=== PATIENT | female | born 1945 | race Caucasian/White ===

== ENCOUNTER 2017-04-05 10:15 | Inpatient (IN) | payer MEDICARE, OTHER ==
[~2017-04-05] VITALS: Ht 165.1 cm; Wt 98.9 kg
[2017-04-05 10:47] LABS: BASOPHILS % (AUTO) 0 % (0-10); EOSINOPHILS # (AUTO) 0.2 10^3/uL (0.0-0.3); EOSINOPHILS % (AUTO) 3 % (0-10); LYMPHOCYTES # (AUTO) 1.2 X 10^3 (1.0-4.0); LYMPHOCYTES % (AUTO) 26 % (12-44); MEAN CORPUSCULAR HEMOGLOBIN 28 PG (25-34); MEAN CORPUSCULAR HGB CONC 33 G/DL (32-36); MEAN CORPUSCULAR VOLUME 87 FL (80-99); MEAN PLATELET VOLUME 10.3 FL (7.4-10.4); MONOCYTES # (AUTO) 0.5 X 10^3 (0.0-1.0); MONOCYTES % (AUTO) 10 % (0-12); NEUTROPHILS # (AUTO) 2.7 X 10^3 (1.8-7.8); NEUTROPHILS % (AUTO) 60 % (42-75); PLATELET COUNT 244 10^3/uL (130-400); RED BLOOD COUNT 4.16 10^6/uL (4.35-5.85); RED CELL DISTRIBUTION WIDTH 14.3 % (10.0-14.5); WHITE BLOOD COUNT 4.5 10^3/uL (4.3-11.0)
[2017-04-05] MEDS ORDERED: ASPIRIN 81 MG CHEW (CHILDREN'S ASA) ONE (10:53)
[2017-04-05 11:00] LABS: ALANINE AMINOTRANSFERASE 14 U/L (0-55); ALBUMIN 4.3 GM/DL (3.2-4.5); ANION GAP 11 MMOL/L (5-14); ASPARTATE AMINO TRANSFERASE 12 U/L (5-34); BILIRUBIN,TOTAL 0.9 MG/DL (0.1-1.0); BLOOD UREA NITROGEN 15 MG/DL (7-18); BUN/CREATININE RATIO 15; CALCIUM 9.9 MG/DL (8.5-10.1); CARBON DIOXIDE 26 MMOL/L (21-32); CHLORIDE 98 MMOL/L (98-107); CREATININE SERUM 1.02 MG/DL (0.60-1.30); GFR ESTIMATED 53; GLUCOSE 240 MG/DL (70-105); MAGNESIUM 1.7 MG/DL (1.8-2.4); POTASSIUM 3.7 MMOL/L (3.6-5.0); SODIUM 135 MMOL/L (135-145); TOTAL PROTEIN 7.3 GM/DL (6.4-8.2)
[2017-04-05 11:01] LABS: PROTHROMBIN TIME PATIENT 12.8 SEC (12.2-14.7)
[2017-04-05 11:08] LABS: MYOGLOBIN SERUM 56.8 NG/ML (10.0-92.0)
--- NOTE | 2017-04-05 11:14 | ED Chest Pain ---
General Chief Complaint: Chest Pain Stated Complaint: HIGH BP/PULSE RACING/CP History of Present Illness Time seen by provider: 11:00 Initial Comments Patient reports chest pressure, generalized right and left substernal, pain started at 0 900 today. She was sitting at her breakfast table eating with her . She denies any exertional chest pain. She does report increased stress recently, her is a paraplegic and has had 3-4 CVAs in the last year. 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 She reports numbness in her left arm no pain radiating into the left arm or neck. She denies nausea vomiting or diaphoresis at the time of the pain. She denies a previous history of chest problems and has never seen a surgical coder. She has a history of hypertension and hyperlipidemia. She does report that her last visit with her primary care provider in November, that all labs were in normal ranges. She is a type II diabetic taking metformin ER. Patient denies any chest pain at the present time, she denies any paresthesias or tingling in the left or right upper extremity. Discussed stress and anxiety, the patient declines anything for that at the present time. Timing/Duration: 1-3 hours Severity/Quality: mild Location: substernal Radiation: no radiation Activities at Onset: other (eating breakfast) Prior CP/Workup: no prior chest pain, no prior cardiac workup Modifying Factors: improves with lying down, improves with rest ASA po PURSE SEINING HAND: No NTG SL PURSE SEINING HAND: No Associated Symptoms: denies symptoms Allergies and Home Medications Allergies Coded Allergies: No Known Drug Allergies (Unverified , 09/28/14) Home Medications Amlodipine Besylate 5 Mg Tablet, 5 MG PO HS, (Reported) Cyanocobalamin 1,000 Mcg/Ml Inj, 1,000 MCG IJ MONTHLY, (Reported) Exenatide 10 Mcg/0.04 Ml Pen.injctr, 10 MCG INJ BID, (Reported) Fenofibrate Nanocrystallized 145 Mg Tablet, 145 MG PO HS, (Reported) Furosemide 20 Mg Tablet, 20 MG PO DAILY PRN for SWELLING, (Reported) Glipizide 10 Mg Tablet, 10 MG PO BID, (Reported) Guanfacine HCl 1 Mg Tablet, 1 MG PO DAILY, (Reported) Levothyroxine Sodium 50 Mcg Tablet, 50 MCG PO DAILY, (Reported) Metformin HCl 500 Mg Tab.er.24h, 1,000 MG PO BID, (Reported) TAKES 2 (500MG) TABLETS Metoprolol Tartrate 100 Mg Tablet, 100 MG PO DAILY, (Reported) Multivitamin 1 Each Tablet, 1 TAB PO DAILY, (Reported) Potassium Chloride 20 Meq Tab.er.prt, 20 MEQ PO DAILY PRN for WHEN TAKING FUROSEMIDE, (Reported) Simvastatin 20 Mg Tablet, 20 MG PO HS, (Reported) Spironolactone 25 Mg Tablet, 25 MG PO BID, (Reported) Review of Systems Constitutional: no symptoms reported, see HPI Respiratory: No Symptoms Reported, See HPI Cardiovascular: See HPI, Chest Pain, Lightheadedness Gastrointestinal: No Symptoms Reported Psychiatric/Neurological: See HPI, Anxiety All Other Systems Reviewed Negative Unless Noted: Yes Past Auxxqfz-Pchtcx-Icpwfw Hx Immunizations Up To Date Date of Pneumonia Vaccine: Jul 30, 2013 Date of Influenza Vaccine: Mar 31, 2014 Reviewed Nursing Assessment Reviewed/Agree w Nursing PMH: Yes Physical Exam Vital Signs Vital Sign - Last 12Hours 04/05/17 10:17 Temp 97.9 Pulse 112 Resp 15 B/P (MAP) 152/90 Pulse Ox 99 Capillary Refill : General Appearance: No Apparent Distress, WD/WN HEENT: PERRL/EOMI, TMs Normal, Normal ENT Inspection Neck: Full Range of Motion, Normal Inspection, Non Tender, Supple, No Carotid Bruit Respiratory: Chest Non Tender, Lungs Clear, Normal Breath Sounds Cardiovascular: No Murmur, Tachycardia (pulse 70s to 120, with episodes of atrial fibrillation and atrial flutter, terminating with normal sinus rhythm) Gastrointestinal: Normal Bowel Sounds, No Organomegaly, No Pulsatile Mass, Non Tender, Soft Extremity: Normal Capillary Refill, Normal Inspection, Normal Range of Motion, Non Tender, No Calf Tenderness, Pedal Edema (1+) Neurologic/Psychiatric: Alert, Oriented x3, No Motor/Sensory Deficits, Normal Mood/Affect Skin: Normal Color, Warm/Dry Lymphatic: No Adenopathy Progress/Results/Core Measures Results/Orders Lab Results Laboratory Tests Test 04/05/17 10:20 Range/Units White Blood Count 4.5 4.3-11.0 10^3/uL Red Blood Count 4.16 L 4.35-5.85 10^6/uL Hemoglobin 11.8 11.5-16.0 G/DL Hematocrit 36 35-52 % Mean Corpuscular Volume 87 80-99 FL Mean Corpuscular Hemoglobin 28 25-34 PG Mean Corpuscular Hemoglobin Concent 33 32-36 G/DL Red Cell Distribution Width 14.3 10.0-14.5 % Platelet Count 244 130-400 10^3/uL Mean Platelet Volume 10.3 7.4-10.4 FL Neutrophils (%) (Auto) 60 42-75 % Lymphocytes (%) (Auto) 26 12-44 % Monocytes (%) (Auto) 10 0-12 % Eosinophils (%) (Auto) 3 0-10 % Basophils (%) (Auto) 0 0-10 % Neutrophils # (Auto) 2.7 1.8-7.8 X 10^3 Lymphocytes # (Auto) 1.2 1.0-4.0 X 10^3 Monocytes # (Auto) 0.5 0.0-1.0 X 10^3 Eosinophils # (Auto) 0.2 0.0-0.3 10^3/uL Basophils # (Auto) 0.0 0.0-0.1 10^3/uL Prothrombin Time 12.8 12.2-14.7 SEC INR Comment 1.0 0.8-1.4 Activated Partial Thromboplast Time 32 24-35 SEC Sodium Level 135 135-145 MMOL/L Potassium Level 3.7 3.6-5.0 MMOL/L Chloride Level 98 98-107 MMOL/L Carbon Dioxide Level 26 21-32 MMOL/L Anion Gap 11 5-14 MMOL/L Blood Urea Nitrogen 15 7-18 MG/DL Creatinine 1.02 0.60-1.30 MG/DL Estimat Glomerular Filtration Rate 53 BUN/Creatinine Ratio 15 Glucose Level 240 H 70-105 MG/DL Calcium Level 9.9 8.5-10.1 MG/DL Magnesium Level 1.7 L 1.8-2.4 MG/DL Total Bilirubin 0.9 0.1-1.0 MG/DL Aspartate Amino Transf (AST/SGOT) 12 5-34 U/L Alanine Aminotransferase (ALT/SGPT) 14 0-55 U/L Alkaline Phosphatase 36 L 40-136 U/L Myoglobin 56.8 10.0-92.0 NG/ML Troponin I < 0.30 <0.30 NG/ML Total Protein 7.3 6.4-8.2 GM/DL Albumin 4.3 3.2-4.5 GM/DL Thyroid Stimulating Hormone (TSH) 2.66 0.35-4.94 UIU/ML Free Thyroxine 1.10 0.70-1.48 NG/DL My Orders Orders - AGUILA GREY Aspirin Chewable Tablet (Baby Aspirin Ch (04/05/17 10:53) Thyroid Stimulating Hormone (04/05/17 11:17) Free T4 (Free Thyroxine) (04/05/17 11:17) Medications Given in ED Current Medications Medications Dose Ordered Sig/Carlos Route Start Time Stop Time Status Last Admin Dose Admin Aspirin 81 mg STK-MED ONCE .ROUTE 04/05/17 10:53 04/05/17 11:00 DC 04/05/17 11:00 81 MG Vital Signs/I&O Vital Sign - Last 12Hours 04/05/17 10:17 Temp 97.9 Pulse 112 Resp 15 B/P (MAP) 152/90 Pulse Ox 99 Progress Note : Time: 11:00 Progress Note 1100 initial evaluation completed, cardiac workup started. At the present time the patient denies any chest pain. EKG shows new onset atrial fibrillation. Discussed results with the patient will obtain more labs and reevaluate. Patient 's initial evaluation reviewed with Dr. Yates, concurred with plan of care [address] Garcia, agreed with admission orders. To consult Dr. Andrews for cardiology. [address] Andrews, will provide consult upon her admission to ICU stepdown. Order received for Lovenox 1 mg/kg. 1150 patient ambulated to bathroom, did not require assistance but had immediate onset of headache. Resolved when she returned to bed. Will obtain CT head. Dr. Andrews here to see patient, patient denies headache at this time he encouraged going ahead and starting the Lovenox Lovenox 100 mg subcutaneous. 1230 patient denies any complaints at this time, no chest pain or headache. Admission orders in place. ECG Initial ECG Impression Date: Apr 05, 2017 Initial ECG Impression Time: 10:17 Initial ECG Rate: 101 Initial ECG Rhythm: A Fib/Flutter Initial ECG Intervals: Normal Initial ECG Intervals QRST 94, QT 336, QTC 436, axis QRS 4, T 125. Initial ECG Impression: Atrial Fibrillation Initial ECG Comparisson: No Previous ECG Available Comment Reviewed with Dr. Yates, concurred with interpretation. Diagnostic Imaging Diagonstic Imaging: Xray Plain Films/CT/US/NM/MRI: chest Comments NAME: LUCY HUFF I [facility] REC#: [id number] PT STATUS: REG ER : 1945 PHYSICIAN: WILFRID YATES MD ADMIT DATE: 04/05/17/ER Draft Date of Exam:04/05/17 CHEST 1 VIEW, AP/PA ONLY Clinical indication: Patient with elevated pulse and blood pressure with right-sided chest pain that started earlier today. Exam: Portable chest x-ray upright view. Comparisons: None. Findings: Lungs/pleura: Lungs are clear. There is no pneumothorax. There is no pleural effusion. Mediastinum: Unremarkable. Pulmonary vasculature: Unremarkable. Heart: There is mild cardiomegaly Bones/extrathoracic soft tissue: Unremarkable. Impression: 1: Mild cardiomegaly with no significant pulmonary vascular congestion. 2: Otherwise, there is no radiographic evidence of acute cardiopulmonary process. no radiographic evidence of acute cardiopulmonary process. Dictated on workstation # [id number] Dict: 04/05/17 1118 Trans: 04/05/17 1121 URBAN [id number] Interpreted by: VASYL CABRERA MD Electronically signed by: Reviewed: Reviewed by Me Diagonstic Imaging: Xray Plain Films/CT/US/NM/MRI: head Comments NAME: LUCY HUFF I [facility] REC#: [id number] PT STATUS: ADM Duc : 1945 PHYSICIAN: AGUILA GREY ADMIT DATE: 04/05/17/ICU Draft Date of Exam:04/05/17 CT HEAD WO INDICATION: Headache and chest pain with hypertension. Noncontrast brain CT is performed. There are no extra-axial fluid collections. No intracranial hemorrhage. No intracranial mass or mass effect. No midline shift. The ventricles are normal in size and position. There are no focal parenchymal abnormalities in the brain. Calvarial windows are unremarkable. IMPRESSION: No acute intracranial abnormality. Dictated on workstation # [id number] Dict: 04/05/17 1241 Trans: 04/05/17 1258 JEYSON [id number] Interpreted by: ROVERTO CURIEL MD Electronically signed by: Reviewed: Reviewed by Me Departure Impression Impression: Primary Impression: New onset atrial fibrillation Additional Impression: Chest pain Qualified Codes: R07.2 - Precordial pain Disposition: ADMITTED INPATIENT Condition: Stable Admissions Decision to Admit Reason: Admit from ER (General) Decision to Admit/Date: Apr 05, 2017 Time/Decision to Admit Time: 11:40 Departure-Patient Inst. Referrals: SANDY GARCIA MD (PCP/Family) Primary Care Physician Copy Copies To 1: SANDY GARCIA MD Copies To 2: MILADIS ANDREWS MD, AMY ARNP Apr 05, 2017 11:14
--- NOTE | 2017-04-05 11:21 | Diagnostic Imaging Report ---
Clinical indication: Patient with elevated pulse and blood pressure with right-sided chest pain that started earlier today. Exam: Portable chest x-ray upright view. Comparisons: None. Findings: Lungs/pleura: Lungs are clear. There is no pneumothorax. There is no pleural effusion. Mediastinum: Unremarkable. Pulmonary vasculature: Unremarkable. Heart: There is mild cardiomegaly Bones/extrathoracic soft tissue: Unremarkable. Impression: 1: Mild cardiomegaly with no significant pulmonary vascular congestion. 2: Otherwise, there is no radiographic evidence of acute cardiopulmonary process. no radiographic evidence of acute cardiopulmonary process. Dictated by: Dictated on workstation # [id number]
[2017-04-05 11:58] LABS: THYROID STIMULATING HORMONE 2.66 UIU/ML (0.35-4.94)
[2017-04-05] MEDS ORDERED: ENOXAPARIN 100 MG/1 ML (LOVENOX) SYR SC NR (12:13)
--- NOTE | 2017-04-05 12:22 | Consultation-Cardiology ---
HPI-Cardiology Cardiology Consultation Date of Consultation 04/05/17 Date of Admission Time Seen by Provider: 12:17 Indication: chest pain HPI 71 years old lady with history of hypertension, hyperlipidemia and diabetes mellitus. Was in her usual state of health until this morning when she woke up did not feel well, started having chest pressure in the retrosternal area not radiating. Persisted until she came to the emergency room in improved after sublingual nitroglycerin. Patient was noted to be in atrial fibrillation, not aware of any history of arrhythmia. Currently she is feeling better, heart rate is better controlled around 80, blood pressure is controlled. Denied any active pain. No palpitation, no syncope or near syncopal episodes. Had an episode of headache earlier which has improved. Home Medications & Allergies Allergies: Coded Allergies: No Known Drug Allergies (Unverified , 09/28/14) Home Medication List Reviewed: Yes KIF-Nsdoxd-Veuwwg Hx Patient Social History Employed/Student: retired Recent Foreign Travel: No Recent Infectious Disease Expo: No Immunizations Up To Date Date of Pneumonia Vaccine: Jul 30, 2013 Date of Influenza Vaccine: Mar 31, 2014 Past Medical History past medical history as discussed below Family Medical History Family Medical Hx Strong family history of heart disease and hypertension Constitutional: see HPI, malaise, weakness EENTM: see HPI, no symptoms reported Respiratory: see HPI, No cough, dyspnea on exertion, No hemoptysis, No orthopnea, No phlegm, No short of breath, No stridor, No wheezing, No other Cardiovascular: see HPI, chest pain, No edema, No Hx of Intervention, No palpitations, No syncope, No vascular heart diseas, No other Gastrointestinal: no symptoms reported, see HPI Genitourinary: no symptoms reported, see HPI Musculoskeletal: no symptoms reported, see HPI Skin: no symptoms reported, see HPI Psychiatric/Neurological: No Symptoms Reported, See HPI Reviewed Test Results Reviewed Test Results Lab Laboratory Tests Test 04/05/17 10:20 Range/Units White Blood Count 4.5 4.3-11.0 10^3/uL Red Blood Count 4.16 L 4.35-5.85 10^6/uL Hemoglobin 11.8 11.5-16.0 G/DL Hematocrit 36 35-52 % Mean Corpuscular Volume 87 80-99 FL Mean Corpuscular Hemoglobin 28 25-34 PG Mean Corpuscular Hemoglobin Concent 33 32-36 G/DL Red Cell Distribution Width 14.3 10.0-14.5 % Platelet Count 244 130-400 10^3/uL Mean Platelet Volume 10.3 7.4-10.4 FL Neutrophils (%) (Auto) 60 42-75 % Lymphocytes (%) (Auto) 26 12-44 % Monocytes (%) (Auto) 10 0-12 % Eosinophils (%) (Auto) 3 0-10 % Basophils (%) (Auto) 0 0-10 % Neutrophils # (Auto) 2.7 1.8-7.8 X 10^3 Lymphocytes # (Auto) 1.2 1.0-4.0 X 10^3 Monocytes # (Auto) 0.5 0.0-1.0 X 10^3 Eosinophils # (Auto) 0.2 0.0-0.3 10^3/uL Basophils # (Auto) 0.0 0.0-0.1 10^3/uL Prothrombin Time 12.8 12.2-14.7 SEC INR Comment 1.0 0.8-1.4 Activated Partial Thromboplast Time 32 24-35 SEC Sodium Level 135 135-145 MMOL/L Potassium Level 3.7 3.6-5.0 MMOL/L Chloride Level 98 98-107 MMOL/L Carbon Dioxide Level 26 21-32 MMOL/L Anion Gap 11 5-14 MMOL/L Blood Urea Nitrogen 15 7-18 MG/DL Creatinine 1.02 0.60-1.30 MG/DL Estimat Glomerular Filtration Rate 53 BUN/Creatinine Ratio 15 Glucose Level 240 H 70-105 MG/DL Calcium Level 9.9 8.5-10.1 MG/DL Magnesium Level 1.7 L 1.8-2.4 MG/DL Total Bilirubin 0.9 0.1-1.0 MG/DL Aspartate Amino Transf (AST/SGOT) 12 5-34 U/L Alanine Aminotransferase (ALT/SGPT) 14 0-55 U/L Alkaline Phosphatase 36 L 40-136 U/L Myoglobin 56.8 10.0-92.0 NG/ML Troponin I < 0.30 <0.30 NG/ML Total Protein 7.3 6.4-8.2 GM/DL Albumin 4.3 3.2-4.5 GM/DL Thyroid Stimulating Hormone (TSH) 2.66 0.35-4.94 UIU/ML Free Thyroxine 1.10 0.70-1.48 NG/DL Physical Exam Vital Signs Vital Sign - Last 12Hours 04/05/17 04/05/17 10:17 13:30 Temp 97.9 Pulse 112 Resp 15 B/P (MAP) 152/90 Pulse Ox 99 O2 Delivery Room Air Capillary Refill : Less Than 3 Seconds General Appearance: No Apparent Distress, WD/WN Eyes: Bilateral Eye Normal Inspection, Bilateral Eye PERRL, Bilateral Eye EOMI HEENT: PERRL/EOMI, TMs Normal, Normal ENT Inspection, Pharynx Normal Neck: Full Range of Motion, Normal Inspection, Non Tender, Supple, Carotid Bruit Respiratory: Chest Non Tender, Lungs Clear, Normal Breath Sounds, No Accessory Muscle Use, No Respiratory Distress Cardiovascular: No Edema, No Gallop, No JVD, No Murmur, Normal Peripheral Pulses, Irregularly Irregular Gastrointestinal: Normal Bowel Sounds, No Organomegaly, No Pulsatile Mass, Non Tender, Soft Back: Normal Inspection, No CVA Tenderness, No Vertebral Tenderness Extremity: Normal Capillary Refill, Normal Inspection, Normal Range of Motion, Non Tender, No Calf Tenderness, No Pedal Edema Neurologic/Psychiatric: Alert, Oriented x3, No Motor/Sensory Deficits, Normal Mood/Affect Skin: Normal Color, Warm/Dry Lymphatic: No Adenopathy A/P-Cardiology Admission Diagnosis Chest pain Atrial fibrillation Hypertension Hyperlipidemia Assessment/Plan Chest pain nonspecific etiology resembling angina improved after sublingual nitroglycerin it could be related to hypertension. Patient blood pressure was significantly elevated initially. No previous cardiac workup, planning to evaluate echocardiogram and Lexiscan stress test, started on Lovenox and aspirin Atrial fibrillation of unknown duration, rate is controlled. Planning to evaluate echocardiogram and started on Lovenox. [id number] score is 4, yearly risk of stroke without oral anticoagulation is 4 percent. Will need to be on oral anticoagulation once clinically more stable. Hypertension, restart home medication monitor blood pressure Hyperlipidemia, monitor lipids Headache with level blood pressure, currently better, continue to monitor blood pressure Diabetes mellitus, followed and managed by primary care physician Degenerative joint disease, History of knee replacement MILADIS FISHER MD Apr 05, 2017 12:22
--- NOTE | 2017-04-05 12:58 | Diagnostic Imaging Report ---
INDICATION: Headache and chest pain with hypertension. Noncontrast brain CT is performed. There are no extra-axial fluid collections. No intracranial hemorrhage. No intracranial mass or mass effect. No midline shift. The ventricles are normal in size and position. There are no focal parenchymal abnormalities in the brain. Calvarial windows are unremarkable. IMPRESSION: No acute intracranial abnormality. Dictated by: Dictated on workstation # [id number]
[2017-04-05] MEDS: ENOXAPARIN 100 MG/1 ML (LOVENOX) SYR SC SCH (13:08)
[2017-04-05 13:30] VITALS: BP 140/83
[2017-04-05] MEDS ORDERED: ONDANSETRON 4 MG/2 ML (SDV) Z0FRAN IV PRN (13:30)
[2017-04-05] MEDS ORDERED: ACETAMINOPHEN 325 MG TABLET/CAPLET (TYLENOL) PO PRN (13:30)
[2017-04-05] MEDS: 1/2 NS IV SOLUTION 1,000 ML IV SCH (13:56)
[2017-04-05] MEDS ORDERED: METF500T8 PO (14:07)
[2017-04-05] MEDS ORDERED: AMLO5TAB2 PO (14:07)
[2017-04-05] MEDS ORDERED: LEVO50TA6 PO (14:07)
[2017-04-05] MEDS ORDERED: GLIP10TA13 PO (14:07)
[2017-04-05] MEDS ORDERED: FURO20TA4 PO (14:07)
[2017-04-05] MEDS ORDERED: SPIR25TA3 PO (14:07)
[2017-04-05] MEDS ORDERED: SIMV20TA3 PO (14:07)
[2017-04-05] MEDS ORDERED: FENO145T20 PO (14:07)
[2017-04-05] MEDS ORDERED: METO100T2 PO (14:07)
[2017-04-05] MEDS ORDERED: POTA20TA8 PO (14:07)
[2017-04-05] MEDS ORDERED: GUAN1TAB21 PO (14:07)
[2017-04-05] MEDS ORDERED: EXEN10PE3 INJ (14:09)
[2017-04-05] MEDS ORDERED: CNC1KV IJ (14:09)
[2017-04-05] MEDS ORDERED: MULT-35 PO (15:13)
[2017-04-05 15:37] VITALS: BP 140/83
[2017-04-05 16:00] VITALS: BP 122/63
[2017-04-05] MEDS ORDERED: KCL 20 MEQ TAB (K-DUR) PO PRN (16:30)
[2017-04-05] MEDS ORDERED: CATHETER FLUSH 10 ML SYR IV PRN (16:30)
[2017-04-05] MEDS ORDERED: FUROSEMIDE 20 MG (LASIX) TAB PO PRN (16:30)
[2017-04-05] MEDS ORDERED: RT-ALBUTEROL SULF 2.5 MG/3 ML PRE-MIX VIAL IH PRN (19:00)
[2017-04-05 20:00] VITALS: BP 102/74
[2017-04-05 20:10] VITALS: BP 102/74
[2017-04-05] MEDS ORDERED: ASPI-586 PO (20:27)
--- NOTE | 2017-04-05 20:48 | History & Physicial ---
History of Present Illness History of Present Illness Reason for visit/HPI PT IS A 71 Y/O FEMALE WHO IS WELL KNOWN TO ME FROM CLINIC. SHE PRESENTED TO THE EMERGENCY DEPARTMENT WITH COMPLAINT OF CHEST PAIN THIS MORNING THAT STARTED AFTER BREAKFAST. SHE REPORTS THAT THE PAIN WAS LIKE A VICE ON HER CHEST, WITH TINGLING THAT TRANSMITTED DOWN HER LEFT ARM. SHE WAS SEEN IN THE EMERGENCY DEPARTMENT, FOUND TO HAVE ACUTE ONSET OF ATRIAL FIBRILLATION, HYPERTENSIVE URGENCY. SHE WAS THUS ADMITTED IN OBSERVATION FOR CARDIAC EVALUATION/RULE-OUT AND CONTROL OF HER NEW ONSET AFIB. Date of Admission Apr 05, 2017 at 11:30 Date Seen by Provider: Apr 05, 2017 Time Seen by Provider: 20:45 I consulted on this patient on 04/05/17 20:45 Attending Physician Sandy Garcia MD Admitting Physician Sandy Garcia MD Consult DR. FISHER - CARDIOLOGY Allergies and Home Medications Allergies Coded Allergies: Sulfa (Sulfonamide Antibiotics) (Verified Allergy, Unknown, 04/05/17) Uncoded Allergies: TAPE (Adverse Reaction, Unknown, 04/05/17) Home Medications Amlodipine Besylate 5 Mg Tablet, 5 MG PO HS, (Reported) Aspirin 81 Mg Tablet.dr, 81 MG PO DAILY, (Reported) Cyanocobalamin 1,000 Mcg/Ml Inj, 1,000 MCG IJ MONTHLY, (Reported) Exenatide 10 Mcg/0.04 Ml Pen.injctr, 10 MCG INJ BID, (Reported) Fenofibrate Nanocrystallized 145 Mg Tablet, 145 MG PO HS, (Reported) Furosemide 20 Mg Tablet, 20 MG PO DAILY PRN for SWELLING, (Reported) Glipizide 10 Mg Tablet, 10 MG PO BID, (Reported) Guanfacine HCl 1 Mg Tablet, 1 MG PO DAILY, (Reported) Levothyroxine Sodium 50 Mcg Tablet, 50 MCG PO DAILY, (Reported) Metformin HCl 500 Mg Tab.er.24h, 1,000 MG PO BID, (Reported) TAKES 2 (500MG) TABLETS Metoprolol Tartrate 100 Mg Tablet, 100 MG PO DAILY, (Reported) Multivitamin 1 Each Tablet, 1 TAB PO DAILY, (Reported) Potassium Chloride 20 Meq Tab.er.prt, 20 MEQ PO DAILY PRN for WHEN TAKING FUROSEMIDE, (Reported) Simvastatin 20 Mg Tablet, 20 MG PO HS, (Reported) Spironolactone 25 Mg Tablet, 25 MG PO BID, (Reported) Past Tzgdysz-Zaodzb-Atbkwj Hx Patient Social History Marrital Status: Living Status: LIVES AT HOME WITH HER Employed/Student: retired Alcohol Use: Denies Use Recreational Drug Use: No Smoking Status: Never a Smoker 2nd Hand Smoke Exposure: No Physical Abuse Screen: No Sexual Abuse: No Recent Foreign Travel: No Contact w/other who traveled: No Recent Hopitalizations: Yes (RIGHT KNEE SURGERY 1 YEAR AGO) Recent Infectious Disease Expo: No Immunizations Up To Date Pediatric: No Date of Pneumonia Vaccine: Jul 30, 2013 Date of Influenza Vaccine: Mar 31, 2014 Seasonal Allergies Seasonal Allergies: Yes Surgeries Yes Orthopedic (RIGHT KNEE REPLACEMENT) Respiratory No Currently Using CPAP: No Currently Using BIPAP: No Cardiovascular Yes High Cholesterol, Hypertension Neurological No Reproductive System : No Hx Reproductive Disorders: No Sexually Transmitted Disease: No HIV/AIDS: No Female Reproductive Disorders: Denies 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 Genitourinary No Gastrointestinal No Musculoskeletal Yes Arthritis Endocrine History of Endocrine Disorders: Yes Endocrine Disorders: Diabetes, Non-Insulin dep Are Your Blood Sugars Over 250: No HEENT History of HEENT Disorders: Yes HEENT Disorders: Cataract Loss of Vision: Denies Hearing Impairment: Denies Cancer No Psychosocial History of Psychiatric Problem: Yes Behavioral Health Disorders: Anxiety, Depression Integumentary History of Skin or Integumenta: No Reviewed Nursing Assessment Reviewed/Agree w Nursing PMH: Yes Family Medical History Significant Family History: Heart Disease, Diabetes, Hypertension, Stroke Family Hx: Completed stroke G8 SISTER Diabetes mellitus 19 MOTHER G8 SISTER Hypertension 19 MOTHER Myocardial infarction 19 FATHER G8 SISTER Constitutional: No chills, No diaphoresis, No fever, No malaise, No weakness EENTM: No hoarseness, No throat pain Respiratory: No cough, No dyspnea on exertion, No short of breath Cardiovascular: chest pain, palpitations Gastrointestinal: No abdominal pain, No constipation, No diarrhea, No nausea Genitourinary: no symptoms reported : No Musculoskeletal: no symptoms reported Skin: no symptoms reported Psychiatric/Neurological: Anxiety All Other Systems Reviewed Negative Unless Noted: Yes Physical Exam Vital Signs Vital Sign - Last 12Hours 04/05/17 10:17 Temp 97.9 Pulse 112 Resp 15 B/P (MAP) 152/90 Pulse Ox 99 Capillary Refill : Less Than 3 Seconds General Appearance: No Apparent Distress, WD/WN Eyes: Bilateral Eye Normal Inspection, Bilateral Eye PERRL, Bilateral Eye EOMI HEENT: PERRL/EOMI Neck: Full Range of Motion, Supple Respiratory: Chest Non Tender, Lungs Clear, Normal Breath Sounds, No Accessory Muscle Use Cardiovascular: Regular Rate, Rhythm, No Edema, Normal Peripheral Pulses Gastrointestinal: Normal Bowel Sounds, Soft Rectal: Deferred Back: Normal Inspection Extremity: Normal Capillary Refill, Normal Inspection, Non Tender, No Calf Tenderness, No Pedal Edema Neurologic/Psychiatric: Alert, Oriented x3, No Motor/Sensory Deficits, Normal Mood/Affect, 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 DEFER TO DR. FISHER. PLANNING ON STRESS TESTING IN THE MORNING. ATRIAL FIBRILLATION - NEW-ONSET - INTERMITTENTLY RATE CONTROLLED - MONITOR ON STEP-DOWN, RATE CONTROL AND ANTICOAGULATION. DIABETES MELLITUS - RESTARTED BYETTA - HOLD METFORMIN AND GLYBURIDE DUE TO PLANNED STRESS TESTING AND POSSIBLE HEART CATHETERIZATION CHEST PAIN - DEFER TO DR. FISHER - STRESS TESTING TOMORROW AND MOST LIKELY WILL NEED HEART CATHETERIZATION. PT UNDER TREMENDOUS STRESS WITH HER HUSBANDS RECURRENT STROKES, CHRONIC HEMIPARESIS FROM WORK ACCIDENT, NOW WITH UPPER EXTREMITY WEAKNESS WELL, AND THEY ARE TRYING TO SELL THEIR BUSINESS WITH TROUBLE FROM A POTENTIAL QA SPECIALIST. DVT PROPHYLAXIS WITH LOVENOX AND SCD'S GI PROPHYLAXIS WITH PPI Problems: Admission Diagnosis HYPERTENSIVE URGENCY ATRIAL FIBRILLATION - NEW-ONSET DIABETES MELLITUS CHEST PAIN Clinical Quality Measures AMI/AHF: ASA po Prior to arrival: No DVT/VTE Risk/Contraindication: Risk Factor Score Per Nursin RFS Level Per Nursing on Admit: 3=High SANDY GARCIA MD Apr 05, 2017 20:48
[2017-04-05] MEDS ORDERED: NON-FORMULARY MEDICATION 1 EA EA (Fenofibrate Nanocrystallized (Fenofibrate) 145 MG) PO SCH (21:00)
[2017-04-05] MEDS ORDERED: FENOFIBRATE 134 MG (LOFIBRA) CAPSULE PO SCH (21:00)
[2017-04-05] MEDS ORDERED: SPIRONOLACTONE 25 MG (ALDACTONE) TAB PO SCH (21:00)
[2017-04-05] MEDS ORDERED: SIMvastatin 20 MG (ZOCOR) TAB PO SCH (21:00)
[2017-04-05] MEDS: inSUlin (REGULAR) HUMAN 1 UNIT/0.01 ML (CHARGE PER UNIT) SC SCH (21:16)
[2017-04-05] MEDS: ALPRAZolam 0.5 MG (XANAX) TAB PO SCH (21:17)
[2017-04-06] VITALS (15 sets, daily range): BP systolic 121–143; BP diastolic 65–85
[2017-04-06] MEDS: ENOXAPARIN 100 MG/1 ML (LOVENOX) SYR SC SCH ×2 (00:04→16:42)
[2017-04-06] MEDS: 1/2 NS IV SOLUTION 1,000 ML IV SCH (03:25)
[2017-04-06 04:28] LABS: BASOPHILS % (AUTO) 0 % (0-10); EOSINOPHILS # (AUTO) 0.2 10^3/uL (0.0-0.3); EOSINOPHILS % (AUTO) 3 % (0-10); LYMPHOCYTES # (AUTO) 1.6 X 10^3 (1.0-4.0); LYMPHOCYTES % (AUTO) 32 % (12-44); MEAN CORPUSCULAR HEMOGLOBIN 29 PG (25-34); MEAN CORPUSCULAR HGB CONC 33 G/DL (32-36); MEAN CORPUSCULAR VOLUME 87 FL (80-99); MEAN PLATELET VOLUME 10.1 FL (7.4-10.4); MONOCYTES # (AUTO) 0.6 X 10^3 (0.0-1.0); MONOCYTES % (AUTO) 13 % (0-12); NEUTROPHILS # (AUTO) 2.5 X 10^3 (1.8-7.8); NEUTROPHILS % (AUTO) 51 % (42-75); PLATELET COUNT 243 10^3/uL (130-400); RED CELL DISTRIBUTION WIDTH 14.1 % (10.0-14.5); WHITE BLOOD COUNT 4.9 10^3/uL (4.3-11.0)
[2017-04-06 04:54] LABS: ALANINE AMINOTRANSFERASE 11 U/L (0-55); ALBUMIN 3.7 GM/DL (3.2-4.5); ANION GAP 12 MMOL/L (5-14); ASPARTATE AMINO TRANSFERASE 12 U/L (5-34); BILIRUBIN,TOTAL 0.7 MG/DL (0.1-1.0); BLOOD UREA NITROGEN 13 MG/DL (7-18); BUN/CREATININE RATIO 15; CALCIUM 9.1 MG/DL (8.5-10.1); CARBON DIOXIDE 22 MMOL/L (21-32); CHLORIDE 104 MMOL/L (98-107); CHOLESTEROL 146 MG/DL (< 200); CREATININE SERUM 0.89 MG/DL (0.60-1.30); DIRECT LDL 96 MG/DL (1-129); GFR ESTIMATED > 60; GLUCOSE 110 MG/DL (70-105); POTASSIUM 3.9 MMOL/L (3.6-5.0); SODIUM 138 MMOL/L (135-145); TOTAL PROTEIN 6.3 GM/DL (6.4-8.2); TRIGLYCERIDES 150 MG/DL (<150); VLDL CHOLESTEROL 30 MG/DL (5-40)
[2017-04-06 05:01] LABS: TROPONIN I < 0.30 NG/ML (<0.30)
[2017-04-06] MEDS: inSUlin (REGULAR) HUMAN 1 UNIT/0.01 ML (CHARGE PER UNIT) SC SCH ×4 (05:15→21:44)
[2017-04-06] MEDS ORDERED: REGADENOSON 0.4 MG/5 ML SYR (LEXISCAN) IV ONE ×2 (07:56→08:15)
[2017-04-06] MEDS ORDERED: PATIENT MAY USE OWN MEDS, ALL MC SCH (08:00)
[2017-04-06] MEDS ORDERED: FUROSEMIDE 20 MG (LASIX) TAB PO PRN (08:30)
[2017-04-06] MEDS ORDERED: KCL 20 MEQ TAB (K-DUR) PO PRN (08:45)
[2017-04-06] MEDS ORDERED: NON-FORMULARY MEDICATION 1 EA EA (Metoprolol Tartrate 100 MG) PO SCH (09:00)
[2017-04-06] MEDS ORDERED: fentaNYL INJECTION 100 MCG/2 ML AMP ONE ×2 (10:48→16:58)
[2017-04-06] MEDS ORDERED: HEParin (CATH LAB) 2,000 ML IV ONE (10:48)
[2017-04-06] MEDS ORDERED: MIDAZOLAM 5 MG/5 ML (VERSED) VIAL ONE (10:48)
[2017-04-06] MEDS ORDERED: NS IV 1000 ML 1,000 ML ONE (10:48)
--- NOTE | 2017-04-06 11:12 | Cardiology Progress Note ---
Subjective Date Seen by Provider: Apr 06, 2017 Time Seen by Provider: 11:10 Subjective/Events-last exam patient was seen at bedside, she had a stress test done earlier, had some chest pain during stress test, no further episode of chest pain, no shortness of breath, still going in and out of atrial fibrillation Review of Systems General: No Chills, No Night Sweats, No Fatigue, No Malaise, No Appetite, No Other HEENT: No Head Aches, No Visual Changes, No Eye Pain, No Ear Pain, No Dysphasia , No Sinus Congestion, No Post Nasal Drip, No Sore Throat, No Other Pulmonary: No Dyspnea, No Cough, No Pleuritic Chest Pain, No Other Cardiovascular: Chest Pain, Palpitations, No: Orthopnea, Paroxysmal Noc. Dyspnea, Edema, Lt Headedness, Other Objective-Cardiology Exam Last Set of Vital Signs Vital Signs 04/06/17 04/06/17 04/06/17 04:15 08:00 08:13 Temp 97.4 Pulse 104 Resp 18 B/P (MAP) 135/71 Pulse Ox 98 O2 Delivery Room Air Capillary Refill : Less Than 3 Seconds I&O Intake and Output 04/07/17 00:00 Intake Total 350 ml Output Total 1600 ml Balance -1250 ml Intake Oral 350 ml Output Urine Total 1600 ml General: Alert, Oriented X3, Cooperative HEENT: Atraumatic, PERRLA Neck: Supple, No JVD, No Thyromegaly Lungs: Clear to Auscultation, Normal Air Movement Heart: Normal S1, Normal S2, No Murmurs, Other (atrial fibrillation) Abdomen: Normal Bowel Sounds, Soft, No Tenderness, No Hepatosplenomegaly, No Masses Extremities: No Clubbing, No Cyanosis, No Edema, Normal Pulses, No Tenderness/ Swelling Skin: No Rashes, No Breakdown, No Significant Lesion Neuro: Normal Gait, Normal Speech, Strength at 5/5 X4 Ext, Normal Tone, Sensation Intact Psych/Mental Status: Mental Status NL, Mood NL Results Lab Laboratory Tests 04/06/17 04:13 A/P-Cardiology Admission Diagnosis Chest pain Atrial fibrillation Hypertension Hyperlipidemia Assessment/Plan Chest pain nonspecific etiology resembling angina improved after sublingual nitroglycerin, abnormal stress test with ischemia involving the mid to apical inferior wall and inferolateral wall, discussed with the patient the management plan and planning to proceed with cardiac catheterization. Paroxysmal atrial fibrillation, has been in and out of atrial fibrillation, planning to do cardiac catheterization then I will proceed with anti-arrhythmic medication [id number] score is 4, yearly risk of stroke without oral anticoagulation is 4 percent. Will need to be on oral anticoagulation once clinically more stable. Hypertension, I will restart home medication monitor blood pressure. Hyperlipidemia, monitor lipids Headache with level blood pressure, currently better, continue to monitor blood pressure Diabetes mellitus, followed and managed by primary care physician Degenerative joint disease, History of knee replacement Clinical Quality Measures AMI/AHF: ASA po Prior to arrival: No DVT/VTE Risk/Contraindication: Risk Factor Score Per Nursin RFS Level Per Nursing on Admit: 3=High MILADIS FISHER MD Apr 06, 2017 11:12
--- NOTE | 2017-04-06 11:13 | Cardiac Procedure Note-CS/ASA ---
Pre-Procedure Note Pre-Op Procedure Note H&P Reviewed The H&P was reviewed, patient examined and no changes noted. Date H&P Reviewed: Apr 06, 2017 Time H&P Reviewed: 11:12 Conscious Sedation Pre-Proced Time Reviewed: 11:12 ASA Class: 3 Airway Mallampati Classification: (akiak appropriate class) I. II. III, IV Lungs Heart ASA score ASA 1: a normal healthy patient ASA 2: a patient with a mild systemic disease (mid diabetes, controlled hypertension, obesity x ASA 3: a patient with a severe systemic disease that limits activity (angina , COPD, prior Myocardial infarction) ASA 4: a patient with an incapacitating disease that is a constant threat to life (CHF, renal failure) ASA 5: a moribund patient not expected to survive 24 hrs. (ruptured aneurysm) ASA 6: a declared brain patient whose organs are being harvested. For emergent operations, add the letter E after the classification Grade 3 Sedation Plan: Analgesia, Amnesia, Plan communicated to team members, Discussed options with patient/fam, Discussed risks with patient/fam Note The patient is an appropriate candidate to undergo the planned procedure, sedation, and anesthesia. The patient immediately re-assessed prior to indication. MILADIS FISHER MD Apr 06, 2017 11:13
[2017-04-06] MEDS ORDERED: NITROGLYCERIN DRIP 25 MG/D5W 250 ML IV ONE (11:26)
[2017-04-06] MEDS ORDERED: HEParin 1000 UNIT/ML (10ML VIAL) FOR BOLUS ONE (11:26)
[2017-04-06] MEDS ORDERED: NS IV 1000 ML 1,000 ML IV SCH (11:30)
[2017-04-06] MEDS ORDERED: CLOPIDOGREL 300 MG (PLAVIX) TABLET PO ONE (11:40)
[2017-04-06] MEDS ORDERED: meTOprolol 5 MG/5 ML (LOPRESSOR) VIAL ONE (11:40)
[2017-04-06] MEDS ORDERED: ASPIRIN 81 MG CHEW (CHILDREN'S ASA) ONE (11:40)
[2017-04-06] MEDS ORDERED: PATIENT MAY USE OWN MEDS, ALL PO SCH (12:00)
--- NOTE | 2017-04-06 12:04 | Cardiac Cath Report ---
Cardiac Cath Report Physician (s)/Subway Guard (s) Physician MILADIS FISHER MD Pre-Procedure Diagnosis Pre-Procedure Diagnosis: coronary artery disease, chest pain Post-Procedure Note Procedure Start Date: Apr 06, 2017 Procedure Start Time: 11:00 Name of Procedure: Left heart catheterization Stent to the right coronary artery Findings/Procedure Note PROCEDURE NOTE: After explaining the procedure to the patient, all pros and cons were explained, all questions were answered. The patient signed the consent and then she was placed on the cardiac catheterization laboratory. The patient was placed on the cardiac catheterization laboratory. Groin was prepped SL fashion local anesthesia was used. Sheath placed in the artery. David right and left catheter were used to access the coronary system. Patient was noted to have severe disease in the right coronary artery, decided to proceed with pertains intervention. Patient was given 5000 units of heparin, FR guide was advanced the right coronary artery, BMW wire was placed to the right coronary artery. Patient has severe stenosis of the midright coronary artery predilatation with a 3.020 mm balloon and then I deployed and a Xience Alpine 3.033 mm stent expanded to 3.6 mm with the use of Quantum balloon with excellent results. At the end of the procedure the sheath was sutured in place FINDINGS: Hemodynamics Aorta 127/68 mean of 76 ANATOMY: Left Main is free of obstructive disease Left Anterior Descending a slightly tortuous with mild disease in the mid LAD nonobstructive disease Left Circumflex is moderate in size, the third obtuse marginal branch has 60 percent stenosis, and artery about 1.5-2 mm in diameter Right Coronory Artery is large dominant artery with severe stenosis at the mid portion up to 80 percent stenosis, balloon angioplasty then stent deployment using Duc's Alpine 3.033 mm expanded to 3.6 mm with the use of Quantum balloon with excellent results no residual stenosis. The distal portion of the right coronary artery has 50 percent stenosis the proximal portion has 40 percent stenosis which would be treated medically LV Gram was not done CONCLUSION: 1. Severe stenosis at the midright coronary artery large dominant artery balloon angioplasty then deployment of a science alpine 3.033 mm expanded to 3.6 mm with the use of Quantum balloon. Excellent results nor residual stenosis. The proximal portion of the right coronary artery has 40 percent stenosis of the distal portion has 50 percent stenosis which would be treated medically. 2. Moderate stenosis at the distal circumflex artery/third obtuse marginal branch that has 60 percent stenosis, the artery is 1.5-2 mm in diameter which will be treated medically. 3. Mild irregularity in the LAD. Nonobstructive disease DISCUSSION AND RECOMMENDATION: I will continue maximizing medical therapy for now. Anesthesia Type: Conscious Sedation Estimated blood loss (mL): 10 ml Contrast Amount: 105 ml Total Radiation Dose: 1108 mGy Post-Procedure Diagnosis Post-operative diagnosis: Coronary artery disease Chest pain resembling angina Paroxysmal atrial fibrillation Hypertension Hyperlipidemia MILADIS FISHER MD Apr 06, 2017 12:04
[2017-04-06] MEDS ORDERED: AMIODARONE FOR BOLUS 150 MG in D5W 100 ML IVPB 100 ML IV NR (12:15)
--- NOTE | 2017-04-06 12:17 | Progress Note (SOAP) ---
Subjective Date Seen by Provider: Apr 06, 2017 Time Seen by Provider: 12:14 Subjective/Events-last exam PT REPORTS THAT SHE IS HAVING CHEST PAIN SINCE RETURN TO THE ICU AFTER HER HEART CATHETERIZATION. SHE DENIES ABDOMINAL PAIN, DIZZINESS. Review of Systems General: Fatigue HEENT: No Head Aches Pulmonary: No Dyspnea, No Cough Cardiovascular: Chest Pain Gastrointestinal: No: Nausea, Abdominal Pain Genitourinary: No Dysuria Neurological: Weakness, No: Confusion Objective Exam Vital Signs Date Time Temp Pulse Resp B/P (MAP) Pulse Ox O2 Delivery O2 Flow Rate FiO2 04/06/17 08:13 104 135/71 98 04/06/17 08:08 89 99 04/06/17 08:00 Room Air 04/06/17 07:00 97 04/06/17 04:15 97.4 82 18 125/65 97 Room Air 04/06/17 01:00 65 04/06/17 00:05 98 Room Air 04/06/17 00:05 97.4 60 18 127/67 98 Room Air 04/05/17 20:10 97 Room Air 04/05/17 20:10 97 Room Air 04/05/17 20:10 97.6 76 18 102/74 97 Room Air 04/05/17 20:00 95 102/74 Room Air 04/05/17 19:00 67 04/05/17 16:00 Room Air 04/05/17 16:00 97.0 92 18 122/63 97 Room Air 04/05/17 15:37 88 97 04/05/17 13:30 97.2 82 18 140/83 97 Room Air 04/05/17 13:10 82 18 99 Capillary Refill : Less Than 3 Seconds General Appearance: No Apparent Distress, WD/WN HEENT: PERRL/EOMI Neck: Supple Respiratory: Chest Non Tender, Lungs Clear, Normal Breath Sounds Cardiovascular: Irregularly Irregular Gastrointestinal: normal bowel sounds, non tender, soft, no organomegaly, no pulsatile mass Neurologic/Psychiatric: Alert, Oriented x3, No Motor/Sensory Deficits Lymphatic: No Adenopathy Results Lab Laboratory Tests 04/05/17 16:48: Glucometer 162H 04/05/17 17:59: Troponin I < 0.30 04/05/17 20:37: Glucometer 214H 04/06/17 04:13: Troponin I < 0.30, White Blood Count 4.9, Red Blood Count 4.10L, Hemoglobin 11.7 , Hematocrit 36, Mean Corpuscular Volume 87, Mean Corpuscular Hemoglobin 29, Mean Corpuscular Hemoglobin Concent 33, Red Cell Distribution Width 14.1, Platelet Count 243, Mean Platelet Volume 10.1, Neutrophils (%) (Auto) 51, Lymphocytes (%) (Auto) 32, Monocytes (%) (Auto) 13H, Eosinophils (%) (Auto) 3, Basophils (%) (Auto) 0, Neutrophils # (Auto) 2.5, Lymphocytes # (Auto) 1.6, Monocytes # (Auto) 0.6, Eosinophils # (Auto) 0.2, Basophils # (Auto) 0.0, Sodium Level 138, Potassium Level 3.9, Chloride Level 104, Carbon Dioxide Level 22, Anion Gap 12, Blood Urea Nitrogen 13, Creatinine 0.89, Estimat Glomerular Filtration Rate > 60, BUN/Creatinine Ratio 15, Glucose Level 110H, Calcium Level 9.1, Total Bilirubin 0.7, Aspartate Amino Transf (AST/SGOT) 12, Alanine Aminotransferase (ALT/SGPT) 11, Alkaline Phosphatase 36L, Total Protein 6.3L, Albumin 3.7, Triglycerides Level 150H, Cholesterol Level 146, LDL Cholesterol Direct 96, VLDL Cholesterol 30, HDL Cholesterol 33L Assessment/Plan Assessment/Plan Assess & Plan/Chief Complaint HYPERTENSIVE URGENCY ATRIAL FIBRILLATION - NEW-ONSET DIABETES MELLITUS CHEST PAIN HYPERTENSIVE URGENCY - WITH CHEST PAIN AND NEW ONSET AFIB - - PERSISTENT CHEST PAIN - HOME MEDICATION RESTARTED - BLOOD PRESSURE IMPROVED AFTER CHEST PAIN RESOLVED. DEFER TO DR. FISHER. - STRESS TEST POSITIVE - STENT PLACED, PT TO BE ON ASPIRIN, PLAVIX, COUMADIN, AND WILL NEED MEDICATIONS INITIATED IN THE HOSPITAL. HE INDICATED IN PHONE CONVERSATION THAT HE WOULD BE STARTING HER ON AMIODARONE IN THE HOSPITAL TO TRY TO GAIN BETTER HEART RATE CONTROL WITH THE AFIB. DIABETES MELLITUS - RESTARTED BYETTA - HOLD METFORMIN AND GLYBURIDE DUE TO PLANNED STRESS TESTING AND POSSIBLE HEART CATHETERIZATION ATIVAN PRN FOR ANXIETY DVT PROPHYLAXIS WITH LOVENOX AND SCD'S GI PROPHYLAXIS WITH PPI Clinical Quality Measures AMI/AHF: ASA po Prior to arrival: No DVT/VTE Risk/Contraindication: Risk Factor Score Per Nursin RFS Level Per Nursing on Admit: 3=High SANDY LAIRD MD Apr 06, 2017 12:17
[2017-04-06] MEDS: AMIODARONE 200 MG (CORDARONE) TAB PO SCH ×2 (12:43→21:44)
[2017-04-06] MEDS ORDERED: NITROGLYCERIN SUBLINGUAL 0.4 MG TAB (NITROSTAT) SL SCH (12:45)
[2017-04-06] MEDS ORDERED: D5W IV SOLUTION (EXCEL) 250 ML IV ONE (13:20)
[2017-04-06] MEDS ORDERED: AMIODARONE 450 MG/9 ML (CORDARONE) VIAL IV ONE (13:20)
[2017-04-06] MEDS ORDERED: ATROPINE INJECTION 1 MG/10 ML SYR (ABBOTT) ONE (13:49)
[2017-04-06] MEDS: oxyCODONE/APAP 5/325MG (PERCOCET 5) TABLET PO PRN ×2 (14:29→19:41)
[2017-04-06] MEDS: AMIODARONE 450 MG/D5W 250 ML (EXCEL) IV SCH ×4 (14:31→21:45)
--- NOTE | 2017-04-06 14:33 | STRESS TEST ---
DATE OF SERVICE: 04/06/2017 PROCEDURE: Lexiscan Myoview stress test report. REFERRING PHYSICIAN: Daisy Garcia MD Baseline heart rate is 97. Baseline blood pressure is 117/66. Baseline EKG is atrial fibrillation with no ischemic changes. In summary, the patient was injected with 10.47 mCi of technetium-99 Myoview and the resting images were obtained. Then, the patient received 0.4 mg of Lexiscan followed by 31.2 mCi of technetium-99 Myoview. The patient developed some chest pain and [address] depression in II, III, aVF, V4, V5 after Lexiscan injection. The resting and stress images were reviewed and compared in the short axis, horizontal long axis, and vertical long axis views. Review of the images showed decreased uptake involving the mid to apical inferior wall and inferolateral wall with breast attenuation affecting the anterior wall. SSS is 9, SDS 40, TID value 0.98. On the gated images, the left ventricle appeared to be normal size with normal contractility, mild hypokinesia of the inferior wall. Calculated ejection fraction 51%. CONCLUSION: 1. The patient tolerated Lexiscan well. Had EKG changes and chest pain with Lexiscan injection. 2. Reversible ischemia involving the mid to apical inferior wall and inferolateral wall. 3. Normal left ventricular size with mild hypokinesia at the inferior wall. 4. Calculated ejection fraction 51%, gated images are unreliable due to underlying atrial fibrillation. Job ID: [id number] DocumentID: [id number] Dictated Date: 04/06/2017 10:51:03 Heart Nurse Date: 04/06/2017 11:13:00 Dictated By: MILADIS FISHER MD
[2017-04-06] MEDS ORDERED: fentaNYL INJECTION 100 MCG/2 ML AMP IVP ONE (14:45)
[2017-04-06] MEDS ORDERED: LORazepam 0.5 MG (ATIVAN) TABLET PO PRN (16:00)
[2017-04-06] MEDS: EXENATIDE 10 MCG/0.04 ML SQ SCH ×2 (16:40→16:46)
[2017-04-06] MEDS: SPIRONOLACTONE 25 MG (ALDACTONE) TAB PO SCH ×2 (16:41→16:49)
[2017-04-06] MEDS: NS IV 1000 ML 1,000 ML IV SCH ×2 (16:41→21:56)
[2017-04-06] MEDS: METOPROLOL TARTRATE 100 MG TAB PO SCH (16:41)
[2017-04-06] MEDS: LEVOTHYROXINE 50 MCG (LEVOTHROID) TAB PO SCH (16:47)
[2017-04-06] MEDS: ASPIRIN E.C. 81 MG (ECOTRIN) TAB PO SCH (16:48)
[2017-04-06] MEDS: warFARin 10 MG (COUMADIN) TAB PO SCH (16:51)
[2017-04-06] MEDS ORDERED: SIMvastatin 20 MG (ZOCOR) TAB PO SCH (21:00)
[2017-04-06] MEDS: FENOFIBRATE 145 MG TAB PO SCH (21:47)
[2017-04-06] MEDS: ALPRAZolam 0.5 MG (XANAX) TAB PO SCH (21:49)
[2017-04-07] VITALS (22 sets, daily range): BP systolic 119–152; BP diastolic 56–91
[2017-04-07 05:16] LABS: BASOPHILS % (AUTO) 1 % (0-10); EOSINOPHILS # (AUTO) 0.2 10^3/uL (0.0-0.3); EOSINOPHILS % (AUTO) 3 % (0-10); LYMPHOCYTES # (AUTO) 1.2 X 10^3 (1.0-4.0); LYMPHOCYTES % (AUTO) 20 % (12-44); MEAN CORPUSCULAR HEMOGLOBIN 29 PG (25-34); MEAN CORPUSCULAR HGB CONC 34 G/DL (32-36); MEAN CORPUSCULAR VOLUME 86 FL (80-99); MEAN PLATELET VOLUME 10.1 FL (7.4-10.4); MONOCYTES # (AUTO) 0.5 X 10^3 (0.0-1.0); MONOCYTES % (AUTO) 8 % (0-12); NEUTROPHILS % (AUTO) 68 % (42-75); PLATELET COUNT 246 10^3/uL (130-400); RED BLOOD COUNT 4.03 10^6/uL (4.35-5.85); RED CELL DISTRIBUTION WIDTH 14.2 % (10.0-14.5); WHITE BLOOD COUNT 5.9 10^3/uL (4.3-11.0)
[2017-04-07 05:20] LABS: INR 1.1 (0.8-1.4); PROTHROMBIN TIME PATIENT 13.8 SEC (12.2-14.7)
[2017-04-07 05:32] LABS: CALCIUM 8.9 MG/DL (8.5-10.1); CREATININE SERUM 0.92 MG/DL (0.60-1.30); MAGNESIUM 1.8 MG/DL (1.8-2.4); PHOSPHORUS 3.1 MG/DL (2.3-4.7); POTASSIUM 3.8 MMOL/L (3.6-5.0)
[2017-04-07] MEDS: MAGNESIUM 1 GM/100 ML IVPB 100 ML IV SCH (06:20)
[2017-04-07] MEDS: POTASSIUM CL 10MEQ/50ML IVPB 50 ML IV SCH (06:20)
[2017-04-07] MEDS: KCL 20 MEQ TAB (K-DUR) PO SCH (06:20)
[2017-04-07] MEDS: SPIRONOLACTONE 25 MG (ALDACTONE) TAB PO SCH ×2 (06:23→17:30)
[2017-04-07] MEDS: LEVOTHYROXINE 50 MCG (LEVOTHROID) TAB PO SCH (06:23)
[2017-04-07] MEDS: inSUlin (REGULAR) HUMAN 1 UNIT/0.01 ML (CHARGE PER UNIT) SC SCH ×4 (06:24→20:56)
[2017-04-07] MEDS: EXENATIDE 10 MCG/0.04 ML SQ SCH ×2 (06:27→17:32)
--- NOTE | 2017-04-07 08:31 | Diagnostic Imaging Report ---
INDICATION: Chest pain. COMPARISON: 04/05/2017. FINDINGS: Stable marked cardiomegaly. Pulmonary vascular redistribution is similar. No pulmonary opacities. No pleural effusion or pneumothorax. IMPRESSION: 1. Stable cardiomegaly with pulmonary venous hypertension. No evidence of doni pulmonary edema or other acute pathology. Dictated by: Dictated on workstation # [id number]
--- NOTE | 2017-04-07 08:44 | Cardiology Progress Note ---
Subjective Date Seen by Provider: Apr 07, 2017 Time Seen by Provider: 08:42 Subjective/Events-last exam patient is laying down in bed, feeling better, converted back to sinus rhythm around 530 a.m. Denied any chest pain, still having frequent PACs. Review of Systems General: No Chills, No Night Sweats, No Fatigue, No Malaise, No Appetite, No Other HEENT: No Head Aches, No Visual Changes, No Eye Pain, No Ear Pain, No Dysphasia , No Sinus Congestion, No Post Nasal Drip, No Sore Throat, No Other Pulmonary: No Dyspnea, No Cough, No Pleuritic Chest Pain, No Other Cardiovascular: No: Chest Pain, Palpitations, Orthopnea, Paroxysmal Noc. Dyspnea, Edema, Lt Headedness, Other Objective-Cardiology Exam Last Set of Vital Signs Vital Signs 04/07/17 08:00 Temp 98.2 Pulse 79 Resp 27 B/P (MAP) 138/81 Pulse Ox 100 O2 Delivery Room Air Capillary Refill : Less Than 3 Seconds I&O Intake and Output 04/08/17 00:00 Intake Total 300 ml Output Total 1300 ml Balance -1000 ml Intake Oral 300 ml Output Urine Total 1300 ml General: Alert, Oriented X3, Cooperative HEENT: Atraumatic, PERRLA Neck: Supple, No JVD, No Thyromegaly Lungs: Clear to Auscultation, Normal Air Movement Heart: Regular Rate, Normal S1, Normal S2, No Murmurs Abdomen: Normal Bowel Sounds, Soft, No Tenderness, No Hepatosplenomegaly, No Masses Extremities: No Clubbing, No Cyanosis, No Edema, Normal Pulses, No Tenderness/ Swelling Skin: No Rashes, No Breakdown, No Significant Lesion Neuro: Normal Gait, Normal Speech, Strength at 5/5 X4 Ext, Normal Tone, Sensation Intact Psych/Mental Status: Mental Status NL, Mood NL Results Lab Laboratory Tests 04/07/17 04:55 A/P-Cardiology Admission Diagnosis Chest pain Atrial fibrillation Hypertension Hyperlipidemia Assessment/Plan Chest pain nonspecific etiology resembling angina, better at this time, status post stent to the right coronary artery Coronary artery disease status post PTCA and stenting to the right coronary artery using 3.033 Xience Alpine stent expanded to 3.5 cm with excellent results. Continue to monitor at this time Paroxysmal atrial fibrillation, has been in and out of atrial fibrillation, started on amiodarone drip and oral, continue to monitor [id number] score is 4, yearly risk of stroke without oral anticoagulation is 4 percent. started on Coumadin last night, and tinea to monitor, continue on Lovenox Hypertension, restarted home medication, continue to monitor Hyperlipidemia, change simvastatin to Lipitor, continue to monitor lipids Headache with level blood pressure, currently better, continue to monitor blood pressure Diabetes mellitus, followed and managed by primary care physician Degenerative joint disease, History of knee replacement Clinical Quality Measures AMI/AHF: ASA po Prior to arrival: No DVT/VTE Risk/Contraindication: Risk Factor Score Per Nursin RFS Level Per Nursing on Admit: 3=High MILADIS FISHER MD Apr 07, 2017 08:44
[2017-04-07] MEDS ORDERED: ASPIRIN E.C. 81 MG (ECOTRIN) TAB PO SCH (09:00)
[2017-04-07] MEDS: AMIODARONE 200 MG (CORDARONE) TAB PO SCH ×2 (09:16→20:55)
[2017-04-07] MEDS: NS IV 1000 ML 1,000 ML IV SCH ×2 (09:16→16:12)
[2017-04-07] MEDS: ASPIRIN E.C. 81 MG (ECOTRIN) TAB PO SCH (09:18)
[2017-04-07] MEDS: CLOPIDOGREL 75 MG (PLAVIX) TABLET PO SCH (09:18)
[2017-04-07] MEDS: ENOXAPARIN 100 MG/1 ML (LOVENOX) SYR SC SCH (09:19)
[2017-04-07] MEDS: METOPROLOL TARTRATE 100 MG TAB PO SCH (09:21)
--- NOTE | 2017-04-07 12:27 | Progress Note-Hospitalist ---
Progress Note Progress Notes/Assess & Plan Date Seen 04/07/17 Time Seen by Provider: 12:00 Diagonsis/Assessment & Plan Patient doing much better since cardiac catheterization with intervention and stent placement Atrial fibrillation is now improved control Lovenox was restarted No chest pain or shortness of breath currently Daughter at the bedside No fever, vital signs stable, pleasant Irregular irregular rhythm no exercise or murmurs Clear to auscultation bilaterally No edema Assessment: Status post cardiac catheterization with stent placement with good results Atrial fibrillation now improved rate control Hypothyroidism Plan: Lovenox Anticoagulation for stroke prophylaxis Rate control for atrial fibrillation ELIZABETH LUX DO Apr 07, 2017 12:27
[2017-04-07] MEDS: warFARin 10 MG (COUMADIN) TAB PO SCH (17:29)
[2017-04-07] MEDS: FENOFIBRATE 145 MG TAB PO SCH (20:55)
[2017-04-07] MEDS: ALPRAZolam 0.5 MG (XANAX) TAB PO SCH (20:57)
[2017-04-07] MEDS ORDERED: ATORVASTATIN 10 MG (LIPITOR) TABLET PO SCH (21:00)
[2017-04-08] VITALS (9 sets, daily range): BP systolic 121–153; BP diastolic 53–91
[2017-04-08] MEDS: ENOXAPARIN 100 MG/1 ML (LOVENOX) SYR SC SCH (00:49)
[2017-04-08] MEDS: NS IV 1000 ML 1,000 ML IV SCH (04:55)
[2017-04-08 05:07] LABS: BASOPHILS % (AUTO) 0 % (0-10); EOSINOPHILS # (AUTO) 0.2 10^3/uL (0.0-0.3); EOSINOPHILS % (AUTO) 4 % (0-10); LYMPHOCYTES # (AUTO) 1.4 X 10^3 (1.0-4.0); LYMPHOCYTES % (AUTO) 29 % (12-44); MEAN CORPUSCULAR HEMOGLOBIN 28 PG (25-34); MEAN CORPUSCULAR HGB CONC 33 G/DL (32-36); MEAN CORPUSCULAR VOLUME 87 FL (80-99); MEAN PLATELET VOLUME 10.1 FL (7.4-10.4); MONOCYTES # (AUTO) 0.6 X 10^3 (0.0-1.0); MONOCYTES % (AUTO) 12 % (0-12); NEUTROPHILS # (AUTO) 2.7 X 10^3 (1.8-7.8); NEUTROPHILS % (AUTO) 55 % (42-75); PLATELET COUNT 213 10^3/uL (130-400); RED BLOOD COUNT 3.43 10^6/uL (4.35-5.85); RED CELL DISTRIBUTION WIDTH 14.3 % (10.0-14.5); WHITE BLOOD COUNT 4.9 10^3/uL (4.3-11.0)
[2017-04-08 05:23] LABS: INR 3.1 (0.8-1.4); PROTHROMBIN TIME PATIENT 31.9 SEC (12.2-14.7)
[2017-04-08 05:34] LABS: ALBUMIN 3.4 GM/DL (3.2-4.5); BILIRUBIN,TOTAL 0.6 MG/DL (0.1-1.0); CALCIUM 8.8 MG/DL (8.5-10.1); CREATININE SERUM 0.94 MG/DL (0.60-1.30); MAGNESIUM 1.9 MG/DL (1.8-2.4); PHOSPHORUS 2.9 MG/DL (2.3-4.7); POTASSIUM 3.9 MMOL/L (3.6-5.0); TOTAL PROTEIN 5.8 GM/DL (6.4-8.2)
[2017-04-08] MEDS: POTASSIUM CL 10MEQ/50ML IVPB 50 ML IV SCH (05:38)
[2017-04-08] MEDS: KCL 20 MEQ TAB (K-DUR) PO SCH (05:38)
[2017-04-08] MEDS: MAGNESIUM 1 GM/100 ML IVPB 100 ML IV SCH (05:38)
[2017-04-08] MEDS: inSUlin (REGULAR) HUMAN 1 UNIT/0.01 ML (CHARGE PER UNIT) SC SCH (05:39)
[2017-04-08] MEDS: LEVOTHYROXINE 50 MCG (LEVOTHROID) TAB PO SCH (06:27)
[2017-04-08] MEDS: SPIRONOLACTONE 25 MG (ALDACTONE) TAB PO SCH (06:27)
[2017-04-08] MEDS: EXENATIDE 10 MCG/0.04 ML SQ SCH (06:29)
[2017-04-08] MEDS: CLOPIDOGREL 75 MG (PLAVIX) TABLET PO SCH (08:54)
[2017-04-08] MEDS: AMIODARONE 200 MG (CORDARONE) TAB PO SCH (08:54)
[2017-04-08] MEDS: ASPIRIN E.C. 81 MG (ECOTRIN) TAB PO SCH (08:55)
[2017-04-08] MEDS: METOPROLOL TARTRATE 100 MG TAB PO SCH (08:56)
--- NOTE | 2017-04-08 09:39 | Diagnostic Imaging Report ---
INDICATION: Atrial fib. Comparison with 04/07/2017. FINDINGS: The right lung is well-aerated and clear There is elevation of the left hemidiaphragm on today's study suggesting some left basilar atelectasis developing. There is mild cardiomegaly. No evidence of pulmonary edema. No pneumothorax or pleural effusion demonstrated. IMPRESSION: 1. Elevation of the left hemidiaphragm suggesting some developing left lower lobe atelectasis. Dictated by: Dictated on workstation # [id number]
[2017-04-08] MEDS ORDERED: WARF2TAB PO (09:56)
[2017-04-08] MEDS ORDERED: CLOP75TA28 PO (09:56)
[2017-04-08] MEDS ORDERED: ENOX100D4 SC (09:56)
[2017-04-08] MEDS ORDERED: AMIO200T2 PO (09:56)
[2017-04-08] MEDS ORDERED: ATOR10TA66 PO (09:56)
[2017-04-08] MEDS ORDERED: METO100T6 PO (09:56)
--- NOTE | 2017-04-08 10:00 | Discharge Inst-Post CATH ---
Discharge Inst-CATH Post Cardiac Cath D/C Inst Follow Up/Plan Hold metformin until Sunday morning PT/INR on April [address] Andrews's office in one to 2 weeks CARDIAC CATH DISCHARGE INSTRUCTIONS *Hold Metformin for 48 hours post heart cath. ACTIVITY * Go Home directly and rest. * Limit activity of the leg (or wrist if it was used) for 7 days including aerobics, swimming, jogging, bicycling, etc. * Restrict stair-climbing for 7 days if possible, if not, climb up with your non -cath leg, then bring together on the same step. * Avoid lifting, pushing, pulling or excessive movement of the affected extremity for 7 days. * Customary sexual activity may be resumed after 2 days-use caution not to use a position that strains or causes pain to the affected extremity. * No driving for 24 hours. * NO SMOKING. * Avoid straining for bowel movements for 7 days. * Gentle walking on level ground is allowed. * Returning to work will depend on the type of procedure and the results. Your doctor will discuss this with you. CALL YOUR DOCTOR FOR ANY OF THE FOLLOWING: *If bleeding from the puncture site occurs- Apply gentle pressure to site with clean cloth and call your doctor or EMS. * If a knot or lump forms under the skin, increases in size, or causes pain. * If bruising appears to be worsening or moving further down your leg instead of disappearing. * Temperature above 101 F. CARE OF YOUR GROIN INCISION; * Bruising or purple discoloration of the skin near the puncture site is common. * You may shower only, no bathtub bathing for 5 days. Be careful to avoid slipping as your leg may feel stiff. * If a closure device was used on your femoral artery, please see the attached guide regarding care of the device and your leg. * REMOVE the dressing from your groin the next day after your procedure in the shower. CARE OF YOUR WRIST INCISION; * Bruising or purple discoloration of the skin near the puncture site is common. * You may shower. * DO NOT submerge wrist. * Remove dressing in 24 hours. MILADIS ANDREWS MD Apr 08, 2017 10:00
--- NOTE | 2017-04-08 10:10 | Cardiology Progress Note ---
Subjective Date Seen by Provider: Apr 08, 2017 Time Seen by Provider: 10:07 Subjective/Events-last exam patient is laying down in bed, feeling better, groin is healing well. Denied any chest pain or shortness of breath Review of Systems General: No Chills, No Night Sweats, No Fatigue, No Malaise, No Appetite, No Other HEENT: No Head Aches, No Visual Changes, No Eye Pain, No Ear Pain, No Dysphasia , No Sinus Congestion, No Post Nasal Drip, No Sore Throat, No Other Pulmonary: No Dyspnea, No Cough, No Pleuritic Chest Pain, No Other Cardiovascular: No: Chest Pain, Palpitations, Orthopnea, Paroxysmal Noc. Dyspnea, Edema, Lt Headedness, Other Objective-Cardiology Exam Last Set of Vital Signs Vital Signs 04/08/17 04/08/17 08:00 09:00 Temp 98.1 Pulse 62 Resp 20 B/P (MAP) 138/84 Pulse Ox 93 O2 Delivery Room Air Capillary Refill : Less Than 3 Seconds I&O Intake and Output 04/09/17 00:00 Intake Total 500 ml Output Total 700 ml Balance -200 ml Intake Oral 500 ml Output Urine Total 700 ml General: Alert, Oriented X3, Cooperative HEENT: Atraumatic, PERRLA Neck: Supple, No JVD, No Thyromegaly Lungs: Clear to Auscultation, Normal Air Movement Heart: Regular Rate, Normal S1, Normal S2, No Murmurs Abdomen: Normal Bowel Sounds, Soft, No Tenderness, No Hepatosplenomegaly, No Masses Extremities: No Clubbing, No Cyanosis, No Edema, Normal Pulses, No Tenderness/ Swelling Skin: No Rashes, No Breakdown, No Significant Lesion Neuro: Normal Gait, Normal Speech, Strength at 5/5 X4 Ext, Normal Tone, Sensation Intact Psych/Mental Status: Mental Status NL, Mood NL Results Lab Laboratory Tests 04/08/17 04:55 Laboratory Tests Test 04/07/17 12:21 04/07/17 17:23 04/07/17 20:54 04/08/17 04:55 Range/Units Glucometer 206 H 204 H 129 H 70-110 MG/DL White Blood Count 4.9 4.3-11.0 10^3/uL Red Blood Count 3.43 L 4.35-5.85 10^6/uL Hemoglobin 9.7 L 11.5-16.0 G/DL Hematocrit 30 L 35-52 % Mean Corpuscular Volume 87 80-99 FL Mean Corpuscular Hemoglobin 28 25-34 PG Mean Corpuscular Hemoglobin Concent 33 32-36 G/DL Red Cell Distribution Width 14.3 10.0-14.5 % Platelet Count 213 130-400 10^3/uL Mean Platelet Volume 10.1 7.4-10.4 FL Neutrophils (%) (Auto) 55 42-75 % Lymphocytes (%) (Auto) 29 12-44 % Monocytes (%) (Auto) 12 0-12 % Eosinophils (%) (Auto) 4 0-10 % Basophils (%) (Auto) 0 0-10 % Neutrophils # (Auto) 2.7 1.8-7.8 X 10^3 Lymphocytes # (Auto) 1.4 1.0-4.0 X 10^3 Monocytes # (Auto) 0.6 0.0-1.0 X 10^3 Eosinophils # (Auto) 0.2 0.0-0.3 10^3/uL Basophils # (Auto) 0.0 0.0-0.1 10^3/uL Prothrombin Time 31.9 H 12.2-14.7 SEC INR Comment 3.1 H 0.8-1.4 Sodium Level 136 135-145 MMOL/L Potassium Level 3.9 3.6-5.0 MMOL/L Chloride Level 105 98-107 MMOL/L Carbon Dioxide Level 19 L 21-32 MMOL/L Anion Gap 12 5-14 MMOL/L Blood Urea Nitrogen 9 7-18 MG/DL Creatinine 0.94 0.60-1.30 MG/DL Estimat Glomerular Filtration Rate 59 BUN/Creatinine Ratio 10 Glucose Level 146 H 70-105 MG/DL Calcium Level 8.8 8.5-10.1 MG/DL Phosphorus Level 2.9 2.3-4.7 MG/DL Magnesium Level 1.9 1.8-2.4 MG/DL Total Bilirubin 0.6 0.1-1.0 MG/DL Aspartate Amino Transf (AST/SGOT) 13 5-34 U/L Alanine Aminotransferase (ALT/SGPT) 11 0-55 U/L Alkaline Phosphatase 30 L 40-136 U/L Total Protein 5.8 L 6.4-8.2 GM/DL Albumin 3.4 3.2-4.5 GM/DL A/P-Cardiology Admission Diagnosis Chest pain Atrial fibrillation Hypertension Hyperlipidemia Assessment/Plan Chest pain nonspecific etiology resembling angina, better at this time, status post stent to the right coronary artery Coronary artery disease status post PTCA and stenting to the right coronary artery using 3.033 Xience Alpine stent expanded to 3.5 cm with excellent results. Continue to monitor at this time, educated in length about taking aspirin and Plavix. Paroxysmal atrial fibrillation, has been in and out of atrial fibrillation, I will discharge home on amiodarone 200 mg daily. [id number] score is 4, yearly risk of stroke without oral anticoagulation is 4 percent, maintained on Coumadin, INR is over 3. I will decrease the Coumadin dose to 2 mg daily and monitor INR closely, it is recommended to use Lovenox in addition to Coumadin for the next 48 hours, I explained it in details to the patient Hypertension, change metoprolol Tartarate to Toprol and monitor blood pressure as an outpatient Hyperlipidemia, change simvastatin to Lipitor, continue to monitor lipids Headache with elevated blood pressure, currently better, continue to monitor blood pressure Diabetes mellitus, I instructed her to hold metformin for another 24 hours, followed and managed by primary care physician Degenerative joint disease, History of knee replacement Clinical Quality Measures AMI/AHF: ASA po Prior to arrival: No DVT/VTE Risk/Contraindication: Risk Factor Score Per Nursin RFS Level Per Nursing on Admit: 3=High MILADIS FISHER MD Apr 08, 2017 10:10
--- NOTE | 2017-04-08 10:59 | Discharge Summary-Hospitalist ---
Diagnosis/Chief Complaint Date of Admission Apr 05, 2017 at 12:19 Date of Discharge Discharge Date: Apr 08, 2017 Discharge Diagnosis Assessment: Status post cardiac catheterization with stent placement with good results Atrial fibrillation now improved rate control Hypothyroidism Discharge Summary Discharge Physical Examination Allergies: Coded Allergies: Sulfa (Sulfonamide Antibiotics) (Verified Allergy, Unknown, 04/05/17) Uncoded Allergies: TAPE (Adverse Reaction, Unknown, 04/05/17) Vitals & I&Os Vital Signs Date Time Temp Pulse Resp B/P (MAP) Pulse Ox O2 Delivery O2 Flow Rate FiO2 04/08/17 09:00 62 20 138/84 93 Room Air 04/08/17 08:00 98.1 04/05/17 10:20 2.0 Hospital Course Hospital course: Patient on uneventful hospital course after she had the cardiac catheterization performed with intervention and close monitoring for atrial fibrillation with rate control. Dr. Andrews did place her on aspirin and Plavix along with Lovenox bridge for Coumadin treatment and she will be closely followed with an INR on . Overall she improved was able to be discharged in an uneventful manner with family support. Labs (last 24 hrs) Laboratory Tests 04/07/17 17:23: Glucometer 204H 04/07/17 20:54: Glucometer 129H 04/08/17 04:55: White Blood Count 4.9, Red Blood Count 3.43L, Hemoglobin 9.7L, Hematocrit 30L, Mean Corpuscular Volume 87, Mean Corpuscular Hemoglobin 28, Mean Corpuscular Hemoglobin Concent 33, Red Cell Distribution Width 14.3, Platelet Count 213, Mean Platelet Volume 10.1, Neutrophils (%) (Auto) 55, Lymphocytes (%) (Auto) 29 , Monocytes (%) (Auto) 12, Eosinophils (%) (Auto) 4, Basophils (%) (Auto) 0, Neutrophils # (Auto) 2.7, Lymphocytes # (Auto) 1.4, Monocytes # (Auto) 0.6, Eosinophils # (Auto) 0.2, Basophils # (Auto) 0.0, Prothrombin Time 31.9H, INR Comment 3.1H, Sodium Level 136, Potassium Level 3.9, Chloride Level 105, Carbon Dioxide Level 19L, Anion Gap 12, Blood Urea Nitrogen 9, Creatinine 0.94, Estimat Glomerular Filtration Rate 59, BUN/Creatinine Ratio 10, Glucose Level 146H, Calcium Level 8.8, Phosphorus Level 2.9, Magnesium Level 1.9, Total Bilirubin 0.6, Aspartate Amino Transf (AST/SGOT) 13, Alanine Aminotransferase ( ALT/SGPT) 11, Alkaline Phosphatase 30L, Total Protein 5.8L, Albumin 3.4 Pending Labs Laboratory Tests 04/08/17 04:55: White Blood Count 4.9, Red Blood Count 3.43, Hemoglobin 9.7, Hematocrit 30, Mean Corpuscular Volume 87, Mean Corpuscular Hemoglobin 28, Mean Corpuscular Hemoglobin Concent 33, Red Cell Distribution Width 14.3, Platelet Count 213, Mean Platelet Volume 10.1, Neutrophils (%) (Auto) 55, Lymphocytes (%) (Auto) 29 , Monocytes (%) (Auto) 12, Eosinophils (%) (Auto) 4, Basophils (%) (Auto) 0, Neutrophils # (Auto) 2.7, Lymphocytes # (Auto) 1.4, Monocytes # (Auto) 0.6, Eosinophils # (Auto) 0.2, Basophils # (Auto) 0.0, Prothrombin Time 31.9, INR Comment 3.1, Sodium Level 136, Potassium Level 3.9, Chloride Level 105, Carbon Dioxide Level 19, Anion Gap 12, Blood Urea Nitrogen 9, Creatinine 0.94, Estimat Glomerular Filtration Rate 59, BUN/Creatinine Ratio 10, Glucose Level 146, Calcium Level 8.8, Phosphorus Level 2.9, Magnesium Level 1.9, Total Bilirubin 0.6, Aspartate Amino Transf (AST/SGOT) 13, Alanine Aminotransferase (ALT/SGPT) 11, Alkaline Phosphatase 30, Total Protein 5.8, Albumin 3.4 Discharge Home Medications: Active Scripts Active Coumadin (Warfarin Sodium) 2 Mg Tablet 2 Mg PO DAILY Toprol Xl (Metoprolol Succinate) 100 Mg Tab.er.24h 100 Mg PO DAILY Amiodarone HCl 200 Mg Tablet 200 Mg PO DAILY Atorvastatin Calcium 10 Mg Tablet 10 Mg PO HS Clopidogrel (Clopidogrel Bisulfate) 75 Mg Tablet 75 Mg PO DAILY Enoxaparin Sodium 100 Mg/1 Ml Syringe 100 Mg SC Q12H Reported Aspir 81 (Aspirin) 81 Mg Tablet.dr 81 Mg PO DAILY Daily Multiple Vitamin (Multivitamin) 1 Each Tablet 1 Tab PO DAILY Cyanocobalamin Injection (Cyanocobalamin) 1,000 Mcg/Ml Inj 1,000 Mcg IJ MONTHLY [place] (Exenatide) 10 Mcg/0.04 Ml Pen.injctr 10 Mcg INJ BID Guanfacine HCl 1 Mg Tablet 1 Mg PO DAILY Furosemide 20 Mg Tablet 20 Mg PO DAILY PRN Spironolactone 25 Mg Tablet 25 Mg PO BID Klor-Con M20 (Potassium Chloride) 20 Meq Tab.er.prt 20 Meq PO DAILY PRN Levothyroxine Sodium 50 Mcg Tablet 50 Mcg PO DAILY Glipizide 10 Mg Tablet 10 Mg PO BID Amlodipine Besylate 5 Mg Tablet 5 Mg PO HS Fenofibrate (Fenofibrate Nanocrystallized) 145 Mg Tablet 145 Mg PO HS Metformin HCl ER (Metformin HCl) 500 Mg Tab.er.24h 1,000 Mg PO BID TAKES 2 (500MG) TABLETS Instructions to patient/family Please see electronic discharge instructions given to patient. Clinical Quality Measures AMI/AHF: ASA po Prior to arrival: No DVT/VTE Risk/Contraindication: Risk Factor Score Per Nursin RFS Level Per Nursing on Admit: 3=High ELIZABETH LUX DO Apr 08, 2017 10:59
== END 2017-04-08 12:00 | disposition home or self-care (01) | DRG 247 ==
LOC: EDUNIT# 10:15 → ER 10:17 → UNDOADMOB 11:30 → ICU 11:30 → OBSVTOIN 12:19 → INTOOBSV 12:19 → ICU 13:30 → OBSVTOIN 04-06 12:20 → ICU 04-06 15:00 → UNDODISIN 04-08 12:00
PROVIDERS: ADMIT Family Medicine; ATTEND Family Medicine
PROC: 027034Z Dilation of Coronary Artery, One Artery with Drug-eluting Intraluminal Device, Percutaneous Approach (ICD-10-PCS; principal; 2017-04-06)
PROC: 4A023N7 Measurement of Cardiac Sampling and Pressure, Left Heart, Percutaneous Approach (ICD-10-PCS; 2017-04-06)
PROC: B2111ZZ Fluoroscopy of Multiple Coronary Arteries using Low Osmolar Contrast (ICD-10-PCS; 2017-04-06)
DX: I25.119 Atherosclerotic heart disease of native coronary artery with unspecified angina pectoris (principal); I48.0 Paroxysmal atrial fibrillation; I16.0 Hypertensive urgency; I10 Essential (primary) hypertension; E78.5 Hyperlipidemia, unspecified; E11.9 Type 2 diabetes mellitus without complications; Z79.84 Long term (current) use of oral hypoglycemic drugs
CPT/HCPCS: 36415; 70450; 71010; 78452; 80048; 80053; 80061; 82962; 83735; 83874; 84100; 84439; 84443; 84484; 85025; 85027; 85347; 85610; 85730; 93005; 93017; 93041; 93306; 93458; 96372

== ENCOUNTER → 2017-04-27 | Outpatient (CLI) | payer MEDICARE, OTHER ==
[~2017-04-27] MED LIST: AMIO200T2 PO; AMLO5TAB2 PO; ASPI-586 PO; ATOR10TA66 PO; CLOP75TA28 PO; CNC1KV IJ; ENOX100D4 SC; EXEN10PE3 INJ; FENO145T20 PO; FURO20TA4 PO; GLIP10TA13 PO; GUAN1TAB21 PO; LEVO50TA6 PO; METF500T8 PO; METO100T2 PO; METO100T6 PO; MULT-35 PO; POTA20TA8 PO; SIMV20TA3 PO; SPIR25TA3 PO; WARF2TAB PO
== END ==
LOC: RAD 10:27
PROVIDERS: ATTEND Nurse Practitioner Family
DX: Z12.31 Encounter for screening mammogram for malignant neoplasm of breast (principal)
CPT/HCPCS: 77067

== ENCOUNTER → 2017-12-13 | Outpatient (CLI) | payer MEDICARE, OTHER ==
[~2017-12-13] MED LIST changes: -FENO145T20 PO; +FENO145T37 PO; +METO100T12 PO; -METO100T2 PO
--- NOTE | 2017-12-13 14:29 | Diagnostic Imaging Report ---
INDICATION: Fall. Knee pain. COMPARISON: None. FINDINGS: Three views of the left knee are obtained. No acute fracture, malalignment or osseous destructive process is seen. There is mild narrowing of the medial joint space. There is minimal tricompartmental spurring. The soft tissues appear unremarkable. IMPRESSION: Minimal degenerative changes. No acute fracture is seen. Dictated by: Dictated on workstation # [id number]
== END ==
LOC: RAD 12:51
PROVIDERS: ATTEND Nurse Practitioner Family
DX: M25.562 Pain in left knee (principal); W19.XXXA Unspecified fall, initial encounter
CPT/HCPCS: 73562

== ENCOUNTER → 2018-05-20 | Outpatient (CLI) | payer MEDICARE, OTHER ==
[~2018-05-20] MED LIST changes: -AMIO200T2 PO; +AMIO200T4 PO; -AMLO5TAB2 PO; +AMLO5TAB7 PO; -SPIR25TA3 PO; +SPIR25TA5 PO
--- NOTE | 2018-05-20 13:28 | Diagnostic Imaging Report ---
INDICATION: Routine screening. COMPARISON: 04/27/2017 and 04/11/2016. TECHNIQUE: 2D and 3D bilateral screening mammography was performed with CAD. FINDINGS: Both breasts remain heterogeneously dense, limiting the sensitivity of mammography. Benign-appearing parenchymal and vascular calcifications are seen bilaterally. No dominant mass or malignant-appearing microcalcifications are seen. The axillae are unremarkable. IMPRESSION: No mammographic features suspicious for malignancy are identified. ACR BI-RADS Category 2: Benign findings. Result letter will be mailed to the patient. Note: At least 10% of breast cancer is not imaged by mammography. Dictated by: Dictated on workstation # [id number]
== END ==
LOC: RAD 11:24
PROVIDERS: ATTEND Nurse Practitioner Family
DX: Z12.31 Encounter for screening mammogram for malignant neoplasm of breast (principal)
CPT/HCPCS: 77067

== ENCOUNTER → 2018-06-19 | Outpatient (CLI) | payer MEDICARE, OTHER ==
--- NOTE | 2018-06-19 18:27 | Diagnostic Imaging Report ---
INDICATION: Coronary artery disease, hypertension. PA and lateral chest. FINDINGS: Heart is mildly enlarged. Pulmonary vascularity is normal. Lungs are clear. There are no effusions or pneumothoraces. IMPRESSION: Cardiomegaly without evidence of pulmonary venous hypertension. No significant change compared to 04/08/2017. Dictated by: Dictated on workstation # [id number]
== END ==
LOC: RAD 14:30
PROVIDERS: ATTEND Physician Assistant
DX: I48.0 Paroxysmal atrial fibrillation (principal); I25.10 Atherosclerotic heart disease of native coronary artery without angina pectoris; E78.2 Mixed hyperlipidemia; I10 Essential (primary) hypertension; I51.7 Cardiomegaly
CPT/HCPCS: 36415; 71046; 84443

== ENCOUNTER → 2018-06-26 | Outpatient (CLI) | payer MEDICARE, OTHER | LOC: CARD 11:46 | PROVIDERS: ATTEND Physician Assistant | DX: I48.91 Unspecified atrial fibrillation (principal); I25.10 Atherosclerotic heart disease of native coronary artery without angina pectoris; I10 Essential (primary) hypertension; E78.5 Hyperlipidemia, unspecified; I34.0 Nonrheumatic mitral (valve) insufficiency | CPT/HCPCS: 93306 ==

== ENCOUNTER → 2018-07-01 | Outpatient (CLI) | payer MEDICARE, OTHER ==
[~2018-07-01] VITALS: Ht 165.1 cm; Wt 98.9 kg
[~2018-07-01] MED LIST changes: +CATHETER FLUSH 10 ML SYR IV PRN; +REGADENOSON 0.4 MG/5 ML SYR (LEXISCAN) IV ONE
--- NOTE | 2018-07-01 13:13 | STRESS TEST ---
DATE OF SERVICE: 07/01/2018 LEXISCAN MYOVIEW STRESS TEST REPORT REFERRING PHYSICIAN: Dr. Garcia. Baseline heart rate is 48, baseline blood pressure 158/73. Baseline EKG is sinus rhythm with no ischemic changes. In summary, the patient was injected with 10.42 mCi of technetium-99 Myoview and the resting images were obtained. Then, the patient received 0.4 mg of Lexiscan followed by 33.0 mCi of technetium-99 Myoview. Throughout the test, there were no EKG changes. The resting and stress images were reviewed and compared in the short axis, horizontal long axis, and vertical long axis views. Review of the images showed patchy uptake with decreased uptake involving the whole inferior wall, inferolateral wall with mild reversibility. SSS is 12, SDS 3, TID value 1.02. On the gated images, the left ventricle appeared to be in normal size with normal contractility. Calculated ejection fraction 60%. CONCLUSION: 1. The patient tolerated Lexiscan well. 2. Patchy uptake with decreased uptake involving the whole inferior wall and inferolateral segment with mild reversibility. 3. Normal left ventricular size with normal contractility. Calculated ejection fraction 60%. Job ID: [id number] DocumentID: [id number] Dictated Date: 07/01/2018 11:52:45 [employer] Date: 07/01/2018 13:12:15 Dictated By: MILADIS FISHER MD
== END ==
LOC: CARD 08:11
PROVIDERS: ATTEND Physician Assistant
DX: I25.10 Atherosclerotic heart disease of native coronary artery without angina pectoris (principal); I10 Essential (primary) hypertension; I48.0 Paroxysmal atrial fibrillation; I65.23 Occlusion and stenosis of bilateral carotid arteries
CPT/HCPCS: 78452; 93017

== ENCOUNTER 2018-07-17 06:36 | Day surgery (SDC) | payer MEDICARE, OTHER ==
[2018-07-17] VITALS (11 sets, daily range): BP systolic 134–173; BP diastolic 61–101
[~2018-07-17] VITALS: Ht 165.1 cm; Wt 98.4 kg
[~2018-07-17 06:36] MED LIST changes: -CATHETER FLUSH 10 ML SYR IV PRN; -REGADENOSON 0.4 MG/5 ML SYR (LEXISCAN) IV ONE
--- OUTSIDE RECORDS SUMMARY | 2018-07-17 06:46 | XMS REPORT | CCD ---
Author Author Daisy Garcia Organization [facility] Address [address] [place] [address] Phone Care Team Providers Care Equipment Engineer Name Role Phone Daisy Garcia PP Unavailable CCM Unavailable Summary Purpose Interface Exchange Insurance Providers Payer name Policy type / Coverage type Covered democrat ID Effective Begin Date Effective End Date WPS Medicare Part B Medicare Part B [id number] 2018 Unknown [place] [employer] Medicare Part B [id number] 2018 Unknown Family history Sister Diagnosis Age At Onset Stroke Unknown Hypertension Unknown Diabetes Unknown Mother Diagnosis Age At Onset Diabetes Unknown Son Diagnosis Age At Onset Hypertension Unknown Daughter Diagnosis Age At Onset Hypertension Unknown Father Diagnosis Age At Onset No Family Disease Entered N/A Social History Social History Element Codes Description Effective Dates Employment Unknown 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 Unknown Has never used illegal drugs 04/21/2011 Allergies, Adverse Reactions, Alerts Substance Reaction Codes Entered Date Inactivated Date Status Tape Unknown 08/23/2011 No Inactive Date Active * NO KNOWN FOOD ALLERGIES Unknown 08/23/2011 No Inactive Date Active SULFA (SULFONAMIDES) Unknown 04/21/2011 No Inactive Date Active Past Medical History Illness Codes Condition Status Onset Date Resolved Date Low back pain ICD-9: 724.2 ICD-10: M54.5 Active 05/29/2018 Unknown Sacrococcygeal disorders, not elsewhere classified ICD-9: 724.6 ICD-10: M53.3 Active 05/29/2018 Unknown Sciatica, right side ICD-9: 724.3 ICD-10: M54.31 Active 05/29/2018 Unknown Encounter for screening mammogram for malignant neoplasm of breast ICD-9: V76.12 ICD-10: Z12.31 Active 05/20/2018 Unknown Chronic kidney disease, stage 3 (moderate) ICD-9: 585.3 ICD-10: N18.3 Active 05/07/2018 Unknown Essential (primary) hypertension ICD-9: 401.9 ICD-10: I10 Active 04/03/2014 Unknown Other vitamin B12 deficiency anemias ICD-9: 281.1 ICD-10: D51.8 Active 06/11/2016 Unknown Type 2 diabetes mellitus without complications ICD-9: 250.00 ICD-10: E11.9 Active 08/29/2016 Unknown VACCIN FOR INFLUENZA ICD-9: V04.81 ICD-10: Z23 Active 04/03/2014 Unknown Encounter for general adult medical examination with abnormal findings ICD-9: V70.0 ICD-10: Z00.01 Active 01/29/2018 Unknown Encounter for immunization ICD-9: V03.82 ICD-10: Z23 Active 01/29/2018 Unknown Chronic atrial fibrillation ICD-9: 427.31 ICD-10: I48.2 Active 04/16/2017 Unknown Other lesions of oral mucosa ICD-9: 528.9 ICD-10: K13.79 Active 12/27/2017 Unknown 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 Active 12/27/2017 Unknown Pain in left knee ICD- 9: 719.46 ICD-10: M25.562 Active 12/13/2017 Unknown Type 2 diabetes mellitus with hyperglycemia ICD-9: 250.02 ICD-10: E11.65 Active 12/18/2017 Unknown Vitamin B12 deficiency anemia, unspecified ICD-9: 281.1 ICD-10: D51.9 Active 02/14/2016 Unknown Allergic rhinitis due to animal (cat) (dog) hair and dander ICD-9: 477.8 ICD-10: J30.81 Active 06/18/2017 Unknown 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 Active 06/07/2017 Unknown Spontaneous ecchymoses ICD-9: 782.7 ICD-10: R23.3 Active 06/07/2017 Unknown Encounter for immunization ICD-9: V03.9 ICD-10: Z23 Active 04/25/2017 Unknown Sacroiliitis, not elsewhere classified ICD-9: 720.2 ICD-10: M46.1 Active 02/23/2017 Unknown Sciatica, left side ICD-9: 724.3 ICD-10: M54.32 Active 02/23/2017 Unknown Acute bronchitis, unspecified ICD-9: 466.0 ICD-10: J20.9 Active 09/07/2016 Unknown Cough ICD-9: 786.2 ICD-10: R05 Active 08/29/2016 Unknown Acute laryngopharyngitis ICD-9: 465.0 ICD-10: J06.0 Active 08/29/2016 Unknown Acute recurrent maxillary sinusitis ICD-9: 461.0 ICD-10: J01.01 Active 09/05/2015 Unknown Other allergic rhinitis ICD-9: 477.8 ICD-10: J30.89 Active 06/11/2016 Unknown Fever, unspecified ICD -9: 780.60 ICD-10: R50.9 Active 05/03/2016 Unknown Urinary tract infection, site not specified ICD-9: 599.0 ICD-10: N39.0 Active 05/03/2016 Unknown 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 ICD-9: 250.60 ICD-10: E11.43 Active 03/29/2016 Unknown Unspecified acute conjunctivitis, right eye ICD-9: 372.00 ICD-10: H10.31 Active 09/05/2015 Unknown Pain in right knee ICD -9: 719.46 ICD-10: M25.561 Active 08/03/2015 Unknown Streptococcal pharyngitis ICD-9: 034.0 ICD-10: J02.0 Active 07/04/2015 Unknown Other screening mammogram ICD-9: V76.12 Active 03/02/2015 Unknown Right knee pain ICD-9 : 719.46 Active 01/07/2015 Unknown DM W/O COMPLICATION TYPE II, UNCONTROLLED ICD-9: 250.02 Active 09/24/2014 Unknown Left sided sciatica ICD-9: 724.3 Active 05/11/2014 Unknown Sacroiliitis ICD-9: 720.2 Active 05/11/2014 Unknown CELLULITIS OF BUTTOCK ICD-9: 682.5 Active 05/01/2014 Unknown DIABETES TYPE II ICD-9 : 250.00 Active 04/03/2014 Unknown ESSENTIAL HYPERTENSION ICD-9: 401.9 Active 04/03/2014 Unknown Iron deficiency ICD-9 : 280.9 Active 04/03/2014 Unknown LUMBAGO ICD-9: 724.2 Active 04/03/2014 Unknown B-COMPLEX DEFIC NEC ICD-9: 266.2 Active 03/24/2014 Unknown EDEMA ICD-9: 782.3 Active 01/22/2013 Unknown ACUTE URI ICD-9: 465.9 Active 08/06/2012 Unknown ALLERGIC RHINITIS ICD- 9: 477.9 Active 08/06/2012 Unknown COUGH ICD-9: 786.2 Active 08/06/2012 Unknown ANEMIA ICD-9: 285.9 Active 07/04/2012 Unknown PAIN IN LIMB ICD-9: 729.5 Active 08/23/2011 Unknown Sciatica Unknown Active 05/23/2011 Unknown Feces incontinence ICD -9: 787.60 Active 04/26/2011 Unknown Diabetes Unknown Active 04/21/2011 Unknown Hyperlipidemia Unknown Active 04/21/2011 Unknown Hypertension Unknown Active 04/21/2011 Unknown Vitamin B12 Deficiency Unknown Active 04/21/2011 Unknown Vitamin D Deficiency Unknown Active 04/21/2011 Unknown Problems Condition Codes Effective Dates Condition Status Low back pain ICD-9: 724.2 ICD-10: M54.5 05/29/2018 Active Sacrococcygeal disorders, not elsewhere classified ICD-9: 724.6 ICD-10: M53.3 05/29/2018 Active Sciatica, right side ICD-9: 724.3 ICD-10: M54.31 05/29/2018 Active Encounter for screening mammogram for malignant neoplasm of breast ICD-9: V76.12 ICD-10: Z12.31 05/20/2018 Active Chronic kidney disease, stage 3 (moderate) ICD-9: 585.3 ICD-10: N18.3 05/07/2018 Active Essential (primary) hypertension ICD-9: 401.9 ICD-10: I10 04/03/2014 Active Other vitamin B12 deficiency anemias ICD-9: 281.1 ICD-10: D51.8 06/11/2016 Active Type 2 diabetes mellitus without complications ICD-9: 250.00 ICD-10: E11.9 08/29/2016 Active VACCIN FOR INFLUENZA ICD-9: V04.81 ICD-10: Z23 04/03/2014 Active Encounter for general adult medical examination with abnormal findings ICD-9: V70.0 ICD-10: Z00.01 01/29/2018 Active Encounter for immunization ICD-9: V03.82 ICD-10: Z23 01/29/2018 Active Chronic atrial fibrillation ICD-9: 427.31 ICD-10: I48.2 04/16/2017 Active Other lesions of oral mucosa ICD-9: 528.9 ICD-10: K13.79 12/27/2017 Active 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 12/27/2017 Active Pain in left knee ICD- 9: 719.46 ICD-10: M25.562 12/13/2017 Active Type 2 diabetes mellitus with hyperglycemia ICD-9: 250.02 ICD-10: E11.65 12/18/2017 Active Vitamin B12 deficiency anemia, unspecified ICD-9: 281.1 ICD-10: D51.9 02/14/2016 Active Allergic rhinitis due to animal (cat) (dog) hair and dander ICD-9: 477.8 ICD-10: J30.81 06/18/2017 Active 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 06/07/2017 Active Spontaneous ecchymoses ICD-9: 782.7 ICD-10: R23.3 06/07/2017 Active Encounter for immunization ICD-9: V03.9 ICD-10: Z23 04/25/2017 Active Sacroiliitis, not elsewhere classified ICD-9: 720.2 ICD-10: M46.1 02/23/2017 Active Sciatica, left side ICD-9: 724.3 ICD-10: M54.32 02/23/2017 Active Acute bronchitis, unspecified ICD-9: 466.0 ICD-10: J20.9 09/07/2016 Active Cough ICD-9: 786.2 ICD-10: R05 08/29/2016 Active Acute laryngopharyngitis ICD-9: 465.0 ICD-10: J06.0 08/29/2016 Active Acute recurrent maxillary sinusitis ICD-9: 461.0 ICD-10: J01.01 09/05/2015 Active Other allergic rhinitis ICD-9: 477.8 ICD-10: J30.89 06/11/2016 Active Fever, unspecified ICD -9: 780.60 ICD-10: R50.9 05/03/2016 Active Urinary tract infection, site not specified ICD-9: 599.0 ICD-10: N39.0 05/03/2016 Active 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 ICD-9: 250.60 ICD-10: E11.43 03/29/2016 Active Unspecified acute conjunctivitis, right eye ICD-9: 372.00 ICD-10: H10.31 09/05/2015 Active Pain in right knee ICD -9: 719.46 ICD-10: M25.561 08/03/2015 Active Streptococcal pharyngitis ICD-9: 034.0 ICD-10: J02.0 07/04/2015 Active Other screening mammogram ICD-9: V76.12 03/02/2015 Active Right knee pain ICD-9 : 719.46 01/07/2015 Active DM W/O COMPLICATION TYPE II, UNCONTROLLED ICD-9: 250.02 09/24/2014 Active Left sided sciatica ICD-9: 724.3 05/11/2014 Active Sacroiliitis ICD-9: 720.2 05/11/2014 Active CELLULITIS OF BUTTOCK ICD-9: 682.5 05/01/2014 Active DIABETES TYPE II ICD-9 : 250.00 04/03/2014 Active ESSENTIAL HYPERTENSION ICD-9: 401.9 04/03/2014 Active Iron deficiency ICD-9 : 280.9 04/03/2014 Active LUMBAGO ICD-9: 724.2 04/03/2014 Active B-COMPLEX DEFIC NEC ICD-9: 266.2 03/24/2014 Active EDEMA ICD-9: 782.3 01/22/2013 Active ACUTE URI ICD-9: 465.9 08/06/2012 Active ALLERGIC RHINITIS ICD- 9: 477.9 08/06/2012 Active COUGH ICD-9: 786.2 08/06/2012 Active ANEMIA ICD-9: 285.9 07/04/2012 Active PAIN IN LIMB ICD-9: 729.5 08/23/2011 Active Sciatica Unknown 05/23/2011 Active Feces incontinence ICD -9: 787.60 04/26/2011 Active Diabetes Unknown 04/21/2011 Active Hyperlipidemia Unknown 04/21/2011 Active Hypertension Unknown 04/21/2011 Active Vitamin B12 Deficiency Unknown 04/21/2011 Active Vitamin D Deficiency Unknown 04/21/2011 Active Medications Medication Codes Instructions Start Date Stop Date Status Fill Instructions Zorvolex 35 mg capsule RxNorm: 4543432 1 Capsule(s) PO TID 07/201706/28/2018 Active Lexapro 5 mg tablet RxNorm: 005441 TAKE ONE TABLET BY MOUTH EVERY EVENING 05/30/2018 08/22/2019 Active Zorvolex 35 mg capsule RxNorm: 1482958 1 Capsule(s) PO TID 07/201705/29/2018 Inactive Kenalog 40 mg/mL suspension for injection RxNorm: 6183540 1 Milliliter(s) Inj 05/29/2018 05/29/2018 Inactive Lomotil 2.5 mg-0.025 mg tablet RxNorm: 6020269 Tablet(s) PO TAKE ONE TABLET BY MOUTH EVERY 8 HOURS NEEDED 05/08/2018 07/06/2018 Active warfarin 2 mg tablet RxNorm: 439089 1 Tablet(s) PO daily 3 days per week, 1/2 Tablet PO 4 days per week- Dr. Andrews manages 05/07/2018 No Stop Date Active cyanocobalamin (vit B-12) 1,000 mcg/mL injection solution RxNorm: 237197 1 Milliliter(s) Inj 05/07/2018 05/07/2018 Inactive Lasix 20 mg tablet RxNorm: 176632 TAKE ONE TABLET BY MOUTH DAILY NEEDED FOR SWELLING. TAKE POTASSIUM WITH EACH DOSE 04/30/2018 08/27/2018 Active Synthroid 50 mcg tablet RxNorm: 844485 TAKE ONE TABLET BY MOUTH EVERY DAY. 04/23/2018 07/16/2019 Active cyanocobalamin (vit B-12) 1,000 mcg/mL injection solution RxNorm: 810353 Milliliter(s) Inj 04/04/2018 04/04/2018 Inactive glipizide 10 mg tablet RxNorm: 225430 Tablet(s) TAKE ONE TABLET BY MOUTH TWICE A DAY 04/03/2018 03/28/2019 Active amlodipine 5 mg tablet RxNorm: 174886 TAKE ONE TABLET BY MOUTH TWICE A DAY 03/12/2018 03/06/2019 Active potassium chloride ER 20 mEq tablet,extended release(part/ cryst) RxNorm: 5640543 TAKE ONE TABLET BY MOUTH DAILY WHEN YOU TAKE LASIX (FUROSEMIDE) 03/12/2018 01/05/2019 Active spironolactone 25 mg tablet RxNorm: 531395 TAKE ONE TABLET BY MOUTH TWICE A DAY 03/11/2018 03/05/2019 Active cyanocobalamin (vit B-12) 1,000 mcg/mL injection solution RxNorm: 135236 1 Milliliter(s) Inj 03/04/2018 03/04/2018 Inactive amiodarone 200 mg tablet RxNorm: 285394 1/2 Tablet(s) PO daily 01/29/2018 No Stop Date Active cyanocobalamin (vit B-12) 1,000 mcg/mL injection solution RxNorm: 914619 1 Milliliter(s) Inj 01/29/2018 01/29/2018 Inactive amlodipine 5 mg tablet RxNorm: 287573 1 Tablet(s) PO QPM 201703/11/2018 Inactive Lexapro 5 mg tablet RxNorm: 358915 1 Tablet(s) PO QPM 201705/29/2018 Inactive warfarin 2 mg tablet RxNorm: 101393 1 Tablet(s) PO daily 4 days per week, 1/2 Tablet PO 3 days per week 01/29/201805/06 Inactive Tenex 1 mg tablet RxNorm: 504400 TAKE ONE TABLET BY MOUTH DAILY 01/21/2018 01/15/2019 Active acyclovir 800 mg tablet RxNorm: 309132 1 Tablet(s) PO TID use if needed for mouth sores 01/01/2018 01/14/2018 Inactive simvastatin 20 mg tablet RxNorm: 794576 TAKE ONE TABLET BY MOUTH EVERY NIGHT AT BEDTIME 12/27/2017 01/28/2018 Inactive acyclovir 800 mg tablet RxNorm: 285005 1 Tablet(s) PO TID 12/2712/31/2017 Inactive metoprolol succinate ER 50 mg tablet,extended release 24 hr RxNorm: 932406 1 Tablet(s) PO daily 12/18/2017 07/15/2018 Active cyanocobalamin (vit B-12) 1,000 mcg/mL injection solution RxNorm: 998282 Milliliter(s) Inj 12/18/2017 12/18/2017 Inactive prednisone 20 mg tablet RxNorm: 014184 1 Tablet(s) PO BID 12/1312/17/2017 Inactive spironolactone 25 mg tablet RxNorm: 045411 TAKE ONE TABLET BY MOUTH TWICE A DAY 12/03/2017 03/02/2018 Inactive hydrocodone 5 mg-acetaminophen 325 mg tablet RxNorm: 937159 1-2 Tablet(s) PO Q4 PRN as needed pain 11/20/2017 No Stop Date Active cyanocobalamin (vit B-12) 1,000 mcg/mL injection solution RxNorm: 007076 1 Milliliter(s) Inj 11/20/2017 11/20/2017 Inactive Lomotil 2.5 mg-0.025 mg tablet RxNorm: 3306138 Tablet(s) PO TAKE ONE TABLET BY MOUTH EVERY 8 HOURS NEEDED 11/07/2017 01/04/2018 Inactive Synthroid 50 mcg tablet RxNorm: 815758 TAKE ONE TABLET BY MOUTH EVERY DAY. 10/16/2017 04/13/2018 Inactive potassium chloride ER 20 mEq tablet,extended release(part/ cryst) RxNorm: 8809886 TAKE ONE TABLET BY MOUTH DAILY WHEN YOU TAKE LASIX (FUROSEMIDE) 09/17/2017 03/11/2018 Inactive Lasix 20 mg tablet RxNorm: 662224 Tablet(s) TAKE ONE TABLET BY MOUTH EVERY DAY NEEDED FOR SWELLING. TAKE POTASSIUM WITH EACH DOSE 201701/07/2018 Inactive glipizide 10 mg tablet RxNorm: 623595 TAKE ONE TABLET BY MOUTH TWICE A DAY 08/28/2017 04/02/2018 Inactive Request already responded to by other means (e.g. phone or fax) glipizide 10 mg tablet RxNorm: 452577 Tablet(s) TAKE ONE TABLET BY MOUTH TWICE A DAY 08/23/2017 08/27/2017 Inactive cyanocobalamin (vit B-12) 1,000 mcg/mL injection solution RxNorm: 664139 1 Milliliter(s) Inj 08/21/2017 08/21/2017 Inactive Synthroid 50 mcg tablet RxNorm: 791329 TAKE ONE TABLET BY MOUTH EVERY DAY. 08/15/2017 10/13/2017 Inactive Tricor 145 mg tablet RxNorm: 537501 TAKE ONE TABLET BY MOUTH DAILY 07/31/2017 11/27/2017 Inactive metformin ER 500 mg tablet,extended release 24 hr RxNorm: 163179 TAKE TWO TABLETS BY MOUTH TWICE A DAY 07/31/20172017 Inactive spironolactone 25 mg tablet RxNorm: 033252 TAKE ONE TABLET BY MOUTH TWICE A DAY 07/31/2017 12/02/2017 Inactive Tenex 1 mg tablet RxNorm: 871663 TAKE ONE TABLET BY MOUTH DAILY 07/20/2017 01/15/2018 Inactive cyanocobalamin (vit B-12) 1,000 mcg/mL injection solution RxNorm: 300098 1 Milliliter(s) Inj 07/18/2017 07/18/2017 Inactive Flonase Allergy Relief 50 mcg/actuation nasal spray, suspension RxNorm: 7218802 1 Dexter NASAL BID 06/18/20172017 Inactive Byetta 10 mcg/dose(250 mcg/mL)2.4 mL subcutaneous pen injector RxNorm: 561119 INJECT 10 MCG UNDER THE SKIN TWO TIMES A DAY ( START AFTER 5 MCG DOSE IS COMPLETE ) 06/18/2017 04/13/2018 Inactive potassium chloride ER 20 mEq tablet,extended release(part/ cryst) RxNorm: 3071084 TAKE ONE TABLET BY MOUTH DAILY WHEN YOU TAKE LASIX (FUROSEMIDE) 06/18/2017 09/15/2017 Inactive Kenalog 40 mg/mL suspension for injection RxNorm: 8858245 1 Milliliter(s) Inj 06/18/2017 06/18/2017 Inactive cyanocobalamin (vit B-12) 1,000 mcg/mL injection solution RxNorm: 283571 1 Milliliter(s) Inj 06/18/2017 06/18/2017 Inactive Lasix 20 mg tablet RxNorm: 401786 Tablet(s) TAKE ONE TABLET BY MOUTH EVERY DAY NEEDED FOR SWELLING. TAKE POTASSIUM WITH EACH DOSE 201609/09/2017 Inactive cyanocobalamin (vit B-12) 1,000 mcg/mL injection solution RxNorm: 010279 1 Milliliter(s) Inj 05/09/2017 05/09/2017 Inactive cyanocobalamin (vit B-12) 1,000 mcg/mL injection solution RxNorm: 468007 1 Milliliter(s) Inj 04/04/2017 04/04/2017 Inactive metformin ER 500 mg tablet,extended release 24 hr RxNorm: 978088 TAKE TWO TABLETS BY MOUTH TWICE A DAY 03/01/20172016 Inactive Kenalog 40 mg/mL suspension for injection RxNorm: 4180883 1 Milliliter(s) Inj 02/23/2017 02/23/2017 Inactive amlodipine 5 mg tablet RxNorm: 444596 TAKE ONE TABLET BY MOUTH TWICE A DAY 02/22/2017 11/18/2017 Inactive glipizide 10 mg tablet RxNorm: 564652 TAKE ONE TABLET BY MOUTH TWICE A DAY 02/12/2017 08/10/2017 Inactive cyanocobalamin (vit B-12) 1,000 mcg/mL injection solution RxNorm: 988926 Milliliter(s) Inj 01/23/2017 01/23/2017 Inactive Synthroid 50 mcg tablet RxNorm: 092804 TAKE ONE TABLET BY MOUTH EVERY DAY. 12/21/2016 06/18/2017 Inactive potassium chloride ER 20 mEq tablet,extended release(part/ cryst) RxNorm: 5301198 TAKE ONE TABLET BY MOUTH DAILY WHEN YOU TAKE LASIX (FUROSEMIDE) 12/21/2016 04/19/2017 Inactive Tricor 145 mg tablet RxNorm: 986256 TAKE ONE TABLET BY MOUTH DAILY 12/21/2016 06/06/2017 Inactive Lasix 20 mg tablet RxNorm: 543719 TAKE ONE TABLET BY MOUTH EVERY DAY NEEDED FOR SWELLING. TAKE POTASSIUM WITH EACH DOSE 12/11/2016 04/09/2017 Inactive cyanocobalamin (vit B-12) 1,000 mcg/mL injection solution RxNorm: 068688 1 Milliliter(s) Inj 11/14/2016 11/14/2016 Inactive simvastatin 20 mg tablet RxNorm: 393363 TAKE ONE TABLET BY MOUTH EVERY NIGHT AT BEDTIME 10/23/2016 04/15/2017 Inactive Tenex 1 mg tablet RxNorm: 892795 TAKE ONE TABLET BY MOUTH DAILY 10/16/2016 11/14/2016 Inactive glipizide 10 mg tablet RxNorm: 046908 TAKE ONE TABLET BY MOUTH TWICE A DAY 09/20/2016 02/11/2017 Inactive doxycycline hyclate 100 mg capsule RxNorm: 3909062 1 Capsule(s) PO BID 09/12/2016 09/18/2016 Inactive doxycycline hyclate 100 mg capsule RxNorm: 6976448 1 Capsule(s) PO BID 09/12/2016 09/11/2016 Inactive Phenergan with Codeine Syrup RxNorm: 5-10 Milliliter(s) PO Q6 PRN 09/07/2016 No Stop Date Active prednisone 20 mg tablet RxNorm: 082913 1 Tablet(s) PO BID 09/0709/11/2016 Inactive Kenalog 40 mg/mL suspension for injection RxNorm: 0593346 1 Milliliter(s) Inj 09/07/2016 09/07/2016 Inactive Tessalon Perles 100 mg capsule RxNorm: 025373 1 Capsule(s) PO TID PRN 09/01/2016 09/20/2016 Inactive Zyrtec 10 mg capsule RxNorm: 6251512 1 Capsule(s) PO daily 01/28/2018 Inactive Flonase Allergy Relief 50 mcg/actuation nasal spray, suspension RxNorm: 9674639 1 Dexter NASAL BID 08/29/20162016 Inactive cyanocobalamin (vit B-12) 1,000 mcg/mL injection solution RxNorm: 602352 1 Milliliter(s) Inj 08/29/2016 08/29/2016 Inactive metformin ER 500 mg tablet,extended release 24 hr RxNorm: 347745 Tablet(s) TAKE TWO TABLETS BY MOUTH TWICE A DAY 08/28/2016 02/23/2017 Inactive Lopressor 100 mg tablet RxNorm: 369906 TAKE ONE TABLET BY MOUTH DAILY 06/27/2016 04/15/2017 Inactive cetirizine 10 mg tablet RxNorm: 9101764 1 Tablet(s) PO daily 07/11/2016 Inactive Flonase Allergy Relief 50 mcg/actuation nasal spray, suspension RxNorm: 5077849 1 Dexter NASAL BID 06/12/20162016 Inactive cyanocobalamin (vit B-12) 1,000 mcg/mL injection solution RxNorm: 131566 Milliliter(s) Inj 06/12/2016 06/12/2016 Inactive spironolactone 25 mg tablet RxNorm: 270942 TAKE ONE TABLET BY MOUTH TWICE A DAY 06/06/2016 03/02/2017 Inactive Request already responded to by other means (e.g. phone or fax) spironolactone 25 mg tablet RxNorm: 284867 Tablet(s) TAKE ONE TABLET BY MOUTH TWICE A DAY 05/29/2016 06/05/2016 Inactive ceftriaxone 500 mg solution for injection RxNorm: 6732026 2 Milliliter(s) Inj 05/04/2016 05/04/2016 Inactive cyanocobalamin (vit B-12) 1,000 mcg/mL injection solution RxNorm: 200560 Milliliter(s) Inj 05/04/2016 05/04/2016 Inactive Cipro 500 mg tablet RxNorm: 538007 1 Tablet(s) PO BID 201505/10/2016 Inactive OneTouch Ultra Test strips RxNorm: TEST DAILY 04/24/2016 04/18/2017 Inactive Byetta 10 mcg/dose(250 mcg/mL)2.4 mL subcutaneous pen injector RxNorm: 216404 INJECT 10 MCG UNDER THE SKIN TWO TIMES A DAY ( START AFTER 5 MCG DOSE IS COMPLETE ) 04/18/2016 03/13/2017 Inactive Lasix 20 mg tablet RxNorm: 172608 TAKE ONE TABLET BY MOUTH EVERY DAY NEEDED FOR SWELLING. TAKE POTASSIUM WITH EACH DOSE 04/07/2016 09/03/2016 Inactive potassium chloride ER 20 mEq tablet,extended release(part/ cryst) RxNorm: 0637516 TAKE ONE TABLET BY MOUTH DAILY WHEN YOU TAKE LASIX (FUROSEMIDE) 04/07/2016 09/03/2016 Inactive triamcinolone acetonide 0.5 % topical cream RxNorm: 6424807 1 Application TOP BID to lesions on buttock 03/30/20162015 Inactive metformin ER 500 mg tablet,extended release 24 hr RxNorm: 103585 TAKE TWO TABLETS BY MOUTH TWICE A DAY 03/23/20162016 Inactive cyanocobalamin (vit B-12) 1,000 mcg/mL injection solution RxNorm: 213049 Milliliter(s) Inj 03/17/2016 03/17/2016 Inactive glipizide 10 mg tablet RxNorm: 546473 TAKE ONE TABLET BY MOUTH TWICE A DAY 03/17/2016 04/02/2018 Inactive Request already responded to by other means (e.g. phone or fax) glipizide 10 mg tablet RxNorm: 026469 Tablet(s) TAKE ONE TABLET BY MOUTH TWICE A DAY 03/13/2016 03/16/2016 Inactive Tricor 145 mg tablet RxNorm: 527426 TAKE ONE TABLET BY MOUTH ONCE A DAY 02/18/2016 02/11/2017 Inactive Request already responded to by other means (e.g. phone or fax) amlodipine 5 mg tablet RxNorm: 930365 TAKE ONE TABLET BY MOUTH TWICE A DAY 02/18/2016 05/06/2018 Inactive Request already responded to by other means (e.g. phone or fax) cyanocobalamin (vit B-12) 1,000 mcg/mL injection solution RxNorm: 802193 1 Milliliter(s) Inj 02/15/2016 02/15/2016 Inactive amlodipine 5 mg tablet RxNorm: 890140 Tablet(s) TAKE ONE TABLET BY MOUTH TWICE A DAY 02/14/2016 02/17/2016 Inactive Tricor 145 mg tablet RxNorm: 567123 1 Tablet(s) PO daily TAKE ONE TABLET BY MOUTH ONCE A DAY 02/14/2016 02/17/2016 Inactive Synthroid 50 mcg tablet RxNorm: 178759 TAKE ONE TABLET BY MOUTH EVERY DAY. 01/31/2016 08/27/2016 Inactive hydrocodone 5 mg-acetaminophen 325 mg tablet RxNorm: 099387 1-2 Tablet(s) PO Q4 PRN as needed pain 01/28/2016 11/19/2017 Inactive cyanocobalamin (vit B-12) 1,000 mcg/mL injection solution RxNorm: 922657 Milliliter(s) Inj 01/19/2016 01/19/2016 Inactive metformin ER 500 mg tablet,extended release 24 hr RxNorm: 692990 TAKE TWO TABLETS BY MOUTH TWICE A DAY 01/18/20162015 Inactive cyanocobalamin (vit B-12) 1,000 mcg/mL injection solution RxNorm: 681153 1 Milliliter(s) Inj 12/07/2015 12/07/2015 Inactive metformin ER 500 mg tablet,extended release 24 hr RxNorm: 873484 TAKE TWO TABLETS BY MOUTH TWICE A DAY 10/18/20152015 Inactive simvastatin 20 mg tablet RxNorm: 360573 1 Tablet(s) PO QHS TAKE ONE TABLET BY MOUTH AT BEDTIME 10/08/2015 10/01/2016 Inactive Tenex 1 mg tablet RxNorm: 670842 TAKE ONE TABLET BY MOUTH DAILY 10/04/2015 09/27/2016 Inactive Lopressor 100 mg tablet RxNorm: 650377 TAKE ONE TABLET BY MOUTH DAILY 09/20/2015 06/15/2016 Inactive Diflucan 150 mg tablet RxNorm: 262777 1 Tablet(s) PO daily 02/201609/12/2015 Inactive cyanocobalamin (vit B-12) 1,000 mcg/mL injection kit RxNorm: 196189 kit Inj 09/06/2015 09/06/2015 Inactive gentamicin 0.3 % eye drops RxNorm: 251391 2 Drop(s) OPH QID 02/201609/12/2015 Inactive ceftriaxone 500 mg solution for injection RxNorm: 9375270 Inj 09/06/2015 09/06/2015 Inactive Keflex 500 mg capsule RxNorm: 350297 1 Capsule(s) PO TID 201509/12/2015 Inactive hydrocodone 5 mg-acetaminophen 325 mg tablet RxNorm: 812165 1-2 Tablet(s) PO Q4 PRN as needed pain 08/09/2015 01/27/2016 Inactive Lortab 5 mg-500 mg tablet RxNorm: 650898 1-2 Tablet(s) PO Q4 PRN as needed pain 08/03/2015 08/08/2015 Inactive Diflucan 150 mg tablet RxNorm: 919170 1 Tablet(s) PO daily 07/16/2015 Inactive Lasix 20 mg tablet RxNorm: 552371 TAKE ONE TABLET BY MOUTH EVERY DAY NEEDED FOR SWELLING. TAKE POTASSIUM WITH EACH DOSE 07/13/2015 01/08/2016 Inactive spironolactone 25 mg tablet RxNorm: 002815 TAKE ONE TABLET BY MOUTH TWICE A DAY 07/13/2015 05/07/2016 Inactive potassium chloride ER 20 mEq tablet,extended release(part/ cryst) RxNorm: [id number] TAKE ONE TABLET BY MOUTH DAILY WHEN YOU TAKE LASIX (FUROSEMIDE) 07/13/2015 01/08/2016 Inactive Tessalon Perles 100 mg capsule RxNorm: 495924 1 Capsule(s) PO TID PRN 07/05/2015 08/31/2016 Inactive Keflex 500 mg capsule RxNorm: 815518 1 Capsule(s) PO TID 201407/14/2015 Inactive Kenalog 40 mg/mL suspension for injection RxNorm: 4008204 Milliliter(s) Inj 07/05/2015 07/05/2015 Inactive ceftriaxone 500 mg solution for injection RxNorm: 9229657 Inj 07/05/2015 07/05/2015 Inactive cyanocobalamin (vit B-12) 1,000 mcg/mL injection solution RxNorm: 272320 Milliliter(s) Inj 06/28/2015 06/28/2015 Inactive Synthroid 50 mcg tablet RxNorm: 687567 TAKE ONE TABLET BY MOUTH EVERY DAY. 06/21/2015 11/17/2015 Inactive metformin ER 500 mg tablet,extended release 24 hr RxNorm: 871489 TAKE TWO TABLETS BY MOUTH TWICE A DAY 06/14/20152015 Inactive glipizide 10 mg tablet RxNorm: 207847 TAKE ONE TABLET BY MOUTH TWICE A DAY 05/31/2015 02/24/2016 Inactive cyanocobalamin (vit B-12) 1,000 mcg/mL injection solution RxNorm: 155359 Milliliter(s) Inj 05/13/2015 05/13/2015 Inactive Tricor 145 mg tablet RxNorm: 470070 1 Tablet(s) PO daily TAKE ONE TABLET BY MOUTH ONCE A DAY 05/07/2015 05/06/2015 Inactive Tricor 145 mg tablet RxNorm: 130691 1 Tablet(s) PO daily TAKE ONE TABLET BY MOUTH ONCE A DAY 05/07/2015 01/31/2016 Inactive Tricor 145 mg tablet RxNorm: 775466 TAKE ONE TABLET BY MOUTH ONCE A DAY 05/06/2015 05/06/2015 Inactive Byetta 10 mcg/dose(250 mcg/mL)2.4 mL subcutaneous pen injector RxNorm: 841965 Microgram(s) SQ 10mcg twice daily ( start after 5mcg dose is complete) 04/01/2015 03/25/2016 Inactive Byetta 5 mcg/dose (250 mcg/mL)1.2 mL subcutaneous pen injector RxNorm: 555873 Microgram(s) SQ 5mcg twice daily x 1 month 03/04/2015 04/02/2015 Inactive Byetta 10 mcg/dose(250 mcg/mL)2.4 mL subcutaneous pen injector RxNorm: 876031 Microgram(s) SQ 10mcg twice daily ( start after 5mcg dose is complete) 03/04/2015 03/31/2015 Inactive Byetta 5 mcg/dose (250 mcg/mL)1.2 mL subcutaneous pen injector RxNorm: 756979 Microgram(s) SQ 5mcg twice daily x 1 month 03/04/2015 03/03/2015 Inactive Byetta 10 mcg/dose(250 mcg/mL)2.4 mL subcutaneous pen injector RxNorm: 117153 Microgram(s) SQ 10mcg twice daily ( start after 5mcg dose is complete) 03/04/2015 03/03/2015 Inactive cyanocobalamin (vit B-12) 1,000 mcg/mL injection solution RxNorm: 821046 Milliliter(s) Inj 02/23/2015 02/23/2015 Inactive cyanocobalamin (vit B-12) 1,000 mcg/mL injection solution RxNorm: 459175 Milliliter(s) Inj 01/08/2015 01/08/2015 Inactive simvastatin 20 mg tablet RxNorm: 589759 TAKE ONE TABLET BY MOUTH AT BEDTIME 01/07/2015 10/03/2015 Inactive Lortab 5 mg-500 mg tablet RxNorm: 671927 1-2 Tablet(s) PO Q4 PRN as needed q 4- 6hrs prn pain 12/15/2014 08/02/2015 Inactive Lortab 5 mg-500 mg tablet RxNorm: 804428 1-2 Tablet(s) PO Q4 PRN as needed q 4- 6hrs prn pain 12/15/2014 08/02/2015 Inactive amlodipine 5 mg tablet RxNorm: 173186 TAKE ONE TABLET BY MOUTH TWICE A DAY 12/14/2014 12/13/2014 Inactive amlodipine 5 mg tablet RxNorm: 551501 TAKE ONE TABLET BY MOUTH TWICE A DAY 12/14/2014 03/13/2015 Inactive cyanocobalamin (vit B-12) 1,000 mcg/mL injection solution RxNorm: 578567 Milliliter(s) Inj 12/08/2014 12/08/2014 Inactive Synthroid 50 mcg tablet RxNorm: 541982 TAKE ONE TABLET BY MOUTH EVERY DAY. 10/29/2014 04/26/2015 Inactive Lasix 20 mg tablet RxNorm: 136643 Tablet(s) TAKE ONE TABLET BY MOUTH EVERY DAY NEEDED FOR SWELLING. TAKE POTASSIUM WITH EACH DOSE 201405/25/2015 Inactive potassium chloride ER 20 mEq tablet,extended release(part/ cryst) RxNorm: 410165 Tablet(s) TAKE ONE TABLET BY MOUTH EVERY DAY WHEN YOU TAKE LASIX (FUROSEMIDE) 10/28/2014 05/25/2015 Inactive cyanocobalamin (vit B-12) 1,000 mcg/mL injection solution RxNorm: 888355 Milliliter(s) Inj 10/26/2014 10/26/2014 Inactive OneTouch Ultra Test strips RxNorm: TEST TWO TIMES A DAY 201405/10/2028 Active OneTouch Ultra Test strips RxNorm: 1 Miscellaneous BID 201410/21/2014 Inactive dx: 250.02 Victoza 2-J Luis 0.6 mg/0.1 mL (18 mg/3 mL) subcutaneous pen injector RxNorm: 919013 1.8 Milligram(s) SQ daily 09/24/201402/22 Inactive cyanocobalamin (vit B-12) 1,000 mcg/mL injection solution RxNorm: 115953 Milliliter(s) Inj 09/24/2014 09/24/2014 Inactive Tenex 1 mg tablet RxNorm: 011584 1 Tablet(s) PO daily TAKE ONE TABLET BY MOUTH EVERY DAY 09/24/2014 10/03/2015 Inactive Lopressor 100 mg tablet RxNorm: 675301 TAKE ONE TABLET BY MOUTH EVERY DAY 09/14/2014 06/10/2015 Inactive Lopressor 100 mg tablet RxNorm: 371781 1 Tablet(s) PO daily TAKE ONE TABLET BY MOUTH EVERY DAY 09/14/2014 09/13/2014 Inactive cyanocobalamin (vit B-12) 1,000 mcg/mL injection solution RxNorm: 168202 Milliliter(s) Inj 08/24/2014 08/24/2014 Inactive [SAVINGS FOR UNINSURED PATIENTS - - BIN:[id number], PCN: [id number], Group: [id number], ID# [id number], Process claim through [facility], for questions: . THIS IS NOT INSURANCE.] Victoza 2-J Luis 0.6 mg/0.1 mL (18 mg/3 mL) subcutaneous pen injector RxNorm: 402322 1.2 Milligram(s) SQ daily 08/05/201409/23 Inactive glipizide 10 mg tablet RxNorm: 754500 TAKE ONE TABLET BY MOUTH TWICE A DAY 07/28/2014 05/23/2015 Inactive Tenex 1 mg tablet RxNorm: 023777 TAKE ONE TABLET BY MOUTH EVERY DAY 07/02/2014 07/01/2014 Inactive Tenex 1 mg tablet RxNorm: 346386 TAKE ONE TABLET BY MOUTH EVERY DAY 07/02/2014 09/23/2014 Inactive spironolactone 25 mg tablet RxNorm: 379595 TAKE ONE TABLET BY MOUTH TWICE A DAY 07/02/2014 04/27/2015 Inactive spironolactone 25 mg tablet RxNorm: 163548 Tablet(s) PO TAKE ONE TABLET BY MOUTH TWICE A DAY 06/30/2014 07/01/2014 Inactive Tenex 1 mg tablet RxNorm: 583682 Tablet(s) PO TAKE ONE TABLET BY MOUTH EVERY DAY 06/30/2014 07/01/2014 Inactive Lortab 5 mg-500 mg tablet RxNorm: 012892 1-2 Tablet(s) PO Q4 PRN as needed q 4- 6hrs prn pain 06/22/2014 12/14/2014 Inactive metformin ER 500 mg tablet,extended release 24 hr RxNorm: 445042 Tablet(s) PO TAKE TWO TABLETS BY MOUTH TWICE A DAY 06/05/2014 06/13/2015 Inactive [SAVINGS FOR UNINSURED PATIENTS -- BIN:[id number], PCN: [id number], Group: [id number], ID# [id number], Process claim through [facility], for questions: . THIS IS NOT INSURANCE.] cyanocobalamin (vit B-12) 1,000 mcg/mL injection solution RxNorm: 254286 1 Milliliter(s) Inj monthly 06/01/201406/01 Inactive Kenalog 40 mg/mL suspension for injection RxNorm: 5284076 1 Milliliter(s) Inj 05/11/2014 05/11/2014 Inactive cyanocobalamin (vit B-12) 1,000 mcg/mL injection kit RxNorm: 897227 Milliliter(s) Inj 04/27/2014 04/27/2014 Inactive amlodipine 5 mg tablet RxNorm: 120448 TAKE ONE TABLET BY MOUTH TWICE A DAY 04/02/2014 07/30/2014 Inactive cyanocobalamin (vit B-12) 1,000 mcg/mL injection kit RxNorm: 994189 1 Milliliter(s ) Inj 03/24/2014 03/24/2014 Inactive [SAVINGS FOR UNINSURED PATIENTS -- BIN:[id number] , PCN: [id number], Group: [id number], ID# [id number], Process claim through [facility], for questions: . THIS IS NOT INSURANCE.] cyanocobalamin (vit B-12) 1,000 mcg/mL injection solution RxNorm: 062468 1 Milliliter(s) Inj 03/24/2014 03/24/2014 Inactive Synthroid 50 mcg tablet RxNorm: 901589 TAKE ONE TABLET BY MOUTH EVERY DAY. 03/01/2014 09/26/2014 Inactive Lasix 20 mg tablet RxNorm: 926305 TAKE ONE TABLET BY MOUTH EVERY DAY NEEDED FOR SWELLING. TAKE POTASSIUM WITH EACH DOSE 03/01/2014 09/26/2014 Inactive potassium chloride ER 20 mEq tablet,extended release(part/ cryst) RxNorm: 959988 TAKE ONE TABLET BY MOUTH EVERY DAY WHEN YOU TAKE LASIX (FUROSEMIDE) 03/01/2014 09/26/2014 Inactive cyanocobalamin (vit B-12) 1,000 mcg/mL injection solution RxNorm: 811164 1 Milliliter(s) Inj 02/24/2014 02/24/2014 Inactive Tricor 145 mg tablet RxNorm: 096391 TAKE ONE TABLET BY MOUTH EVERY DAY 02/16/2014 02/15/2014 Inactive Victoza 2-J Luis 0.6 mg/0.1 mL (18 mg/3 mL) subcutaneous pen injector RxNorm: 591914 1.2 Milligram(s) SQ daily 02/16/201408/04 Inactive Tricor 145 mg tablet RxNorm: 330650 TAKE ONE TABLET BY MOUTH EVERY DAY 02/16/2014 06/15/2014 Inactive Synthroid 50 mcg tablet RxNorm: 464820 TAKE ONE TABLET BY MOUTH EVERY DAY. 02/02/2014 03/03/2014 Inactive Synthroid 50 mcg tablet RxNorm: 025871 TAKE ONE TABLET BY MOUTH EVERY DAY. 02/02/2014 02/01/2014 Inactive simvastatin 20 mg tablet RxNorm: 001748 TAKE ONE TABLET BY MOUTH AT BEDTIME 01/12/2014 01/06/2015 Inactive cyanocobalamin (vit B-12) 1,000 mcg/mL injection solution RxNorm: 457305 Milliliter(s) Inj 01/09/2014 01/09/2014 Inactive Lortab 5 mg-500 mg tablet RxNorm: 947405 1-2 Tablet(s) PO Q4 PRN q 4-6hrs prn pain 12/23/2013 No Stop Date Active Lasix 20 mg tablet RxNorm: 418808 Tablet(s) PO TAKE ONE TABLET BY MOUTH EVERY DAY NEEDED FOR SWELLING. TAKE POTASSIUM WITH EACH DOSE 12/201302/28/2014 Inactive potassium chloride ER 20 mEq tablet,extended release(part/ cryst) RxNorm: 180777 Tablet(s) PO TAKE ONE TABLET BY MOUTH EVERY DAY WHEN YOU TAKE LASIX (FUROSEMIDE ) 12/02/2013 02/28/2014 Inactive Lomotil 2.5 mg-0.025 mg tablet RxNorm: 1739079 Tablet(s) PO TAKE ONE TABLET BY MOUTH EVERY 8 HOURS NEEDED 11/27/2013 01/28/2018 Inactive (Appended: Controlled substance eRx refill - RxReferenceNumber: [id number]) Lomotil 2.5 mg-0.025 mg tablet RxNorm: 9723117 1 Tablet(s) PO Q8 PRN 11/27/2013 05/24/2014 Inactive cyanocobalamin (vit B-12) 1,000 mcg/mL injection solution RxNorm: 897126 1 Milliliter(s) Inj 11/27/2013 11/27/2013 Inactive Vitamin B-12 1,000 mcg/mL injection solution RxNorm: 177845 1 Milliliter(s) Inj monthly 11/24/2013 11/18/2014 Inactive ok to give multidose if available Synthroid 50 mcg tablet RxNorm: 705354 Tablet(s) PO TAKE ONE TABLET BY MOUTH EVERY DAY. 10/31/2013 02/01/2014 Inactive simvastatin 20 mg tablet RxNorm: 116914 Tablet(s) PO TAKE ONE TABLET BY MOUTH AT BEDTIME 10/10/2013 01/11/2014 Inactive Vitamin B-12 1,000 mcg/mL injection solution RxNorm: 018316 1 Milliliter(s) Inj monthly 09/30/2013 09/29/2013 Inactive ok to give multidose if available Vitamin B-12 1,000 mcg/mL injection solution RxNorm: 327899 1 Milliliter(s) Inj monthly 09/30/2013 11/23/2013 Inactive ok to give multidose if available Vitamin B-12 1,000 mcg/mL injection solution RxNorm: 819874 1 Milliliter(s) Inj 09/18/2013 09/18/2013 Inactive Lopressor 100 mg tablet RxNorm: 461360 Tablet(s) PO TAKE ONE TABLET BY MOUTH EVERY DAY 09/15/2013 09/13/2014 Inactive Vitamin B-12 1,000 mcg/mL injection solution RxNorm: 867047 1 Milliliter(s) Inj 08/22/2013 08/22/2013 Inactive glipizide 10 mg tablet RxNorm: 192995 Tablet(s) PO TAKE ONE TABLET BY MOUTH TWICE A DAY 08/15/2013 07/27/2014 Inactive Tenex 1 mg tablet RxNorm: 253635 Tablet(s) PO TAKE ONE TABLET BY MOUTH EVERY DAY 08/05/2013 06/29/2014 Inactive potassium chloride ER 20 mEq tablet,extended release(part/ cryst) RxNorm: 798325 Tablet(s) PO TAKE ONE TABLET BY MOUTH EVERY DAY WHEN YOU TAKE LASIX (FUROSEMIDE ) 07/31/2013 12/01/2013 Inactive spironolactone 25 mg tablet RxNorm: 344033 Tablet(s) PO TAKE ONE TABLET BY MOUTH TWICE A DAY 07/31/2013 06/29/2014 Inactive Lasix 20 mg tablet RxNorm: 979487 Tablet(s) PO TAKE ONE TABLET BY MOUTH EVERY DAY NEEDED FOR SWELLING. TAKE POTASSIUM WITH EACH DOSE 08/201312/01/2013 Inactive Vitamin B-12 1,000 mcg/mL injection solution RxNorm: 890636 Milliliter(s) Inj 07/28/2013 07/28/2013 Inactive Synthroid 50 mcg tablet RxNorm: 089516 Tablet(s) PO TAKE ONE TABLET BY MOUTH EVERY DAY. PATIENT DUE FOR TSH LEVEL LAB 06/30/2013 06/29/2013 Inactive Synthroid 50 mcg tablet RxNorm: 151993 Tablet(s) PO TAKE ONE TABLET BY MOUTH EVERY DAY. PATIENT DUE FOR TSH LEVEL LAB 06/30/2013 10/30/2013 Inactive potassium chloride ER 20 mEq tablet,extended release(part/ cryst) RxNorm: 562446 Tablet(s) PO TAKE ONE TABLET BY MOUTH EVERY DAY WHEN YOU TAKE LASIX (FUROSEMIDE ) 06/23/2013 07/30/2013 Inactive Lasix 20 mg tablet RxNorm: 396359 Tablet(s) PO TAKE ONE TABLET BY MOUTH EVERY DAY NEEDED FOR SWELLING. TAKE POTASSIUM WITH EACH DOSE 07/30/2013 Inactive amlodipine 5 mg tablet RxNorm: 676157 Tablet(s) PO TAKE ONE TABLET BY MOUTH TWICE A DAY 06/17/2013 04/01/2014 Inactive metformin ER 500 mg tablet,extended release 24 hr RxNorm: 551718 Tablet(s) PO TAKE TWO TABLETS BY MOUTH TWICE A DAY 05/26/2013 06/04/2014 Inactive metformin ER 500 mg tablet,extended release 24 hr RxNorm: 922753 Tablet(s) PO TAKE TWO TABLETS BY MOUTH TWICE A DAY 05/26/2013 05/25/2013 Inactive Vitamin B-12 1,000 mcg/mL injection solution RxNorm: 754293 1 Milliliter(s) Inj 05/21/2013 05/21/2013 Inactive Vitamin B-12 1,000 mcg/mL Injection RxNorm: 085273 Milliliter(s) Inj 04/23/2013 04/23/2013 Inactive Influenza Virus Vaccine 0.5 mL RxNorm: IM 04/23/2013 04/23/2013 Inactive Synthroid 50 mcg tablet RxNorm: 259975 Tablet(s) PO TAKE ONE TABLET BY MOUTH EVERY DAY. PATIENT DUE FOR TSH LEVEL LAB 04/17/2013 06/29/2013 Inactive Lasix 20 mg tablet RxNorm: 884814 Tablet(s) PO TAKE ONE TABLET BY MOUTH EVERY DAY NEEDED FOR SWELLING. TAKE POTASSIUM WITH EACH DOSE 06/22/2013 Inactive potassium chloride ER 20 mEq tablet,extended release(part/ cryst) RxNorm: 3564076 Tablet(s) PO TAKE ONE TABLET BY MOUTH EVERY DAY WHEN YOU TAKE LASIX (FUROSEMIDE ) 04/17/2013 06/22/2013 Inactive simvastatin 20 mg tablet RxNorm: 741809 Tablet(s) PO TAKE ONE TABLET BY MOUTH AT BEDTIME 04/10/2013 10/09/2013 Inactive Vitamin B-12 1,000 mcg/mL Injection RxNorm: 959807 1 Milliliter(s) Inj 03/24/2013 03/24/2013 Inactive Lopressor 100 mg tablet RxNorm: 483370 Tablet(s) PO TAKE ONE TABLET BY MOUTH EVERY DAY 03/18/2013 09/14/2013 Inactive cyanocobalamin (vitamin B-12) 1,000 mcg/mL Injection RxNorm: 092010 Milliliter(s) Inj 02/20/2013 02/20/2013 Inactive Tricor 145 mg tablet RxNorm: 921595 Tablet(s) PO TAKE ONE TABLET BY MOUTH EVERY DAY 02/14/2013 02/15/2014 Inactive Vitamin B-12 1,000 mcg/mL Injection RxNorm: 808801 1 Milliliter(s) Inj 01/22/2013 01/22/2013 Inactive potassium chloride ER 20 mEq tablet,extended release(part/ cryst) RxNorm: 7818198 1 Tablet(s) PO QDAY PRN take when taking prn lasix 201204/16/2013 Inactive Lasix 20 mg tablet RxNorm: 618193 1 Tablet(s) PO QDAY PRN daily prn swelling - to take kcl with lasix 01/22/20132012 Inactive cyanocobalamin (vitamin B-12) 1,000 mcg/mL Injection RxNorm: 523441 Milliliter(s) Inj 12/19/2012 12/19/2012 Inactive cyanocobalamin (vitamin B-12) 1,000 mcg/mL Injection RxNorm: 449214 Milliliter(s) Inj 11/20/2012 11/20/2012 Inactive Diflucan 150 mg tablet RxNorm: 503453 1 Tablet(s) PO daily 11/21/2012 Inactive Synthroid 50 mcg tablet RxNorm: 546310 Tablet(s) PO TAKE ONE TABLET BY MOUTH EVERY DAY. PATIENT DUE FOR TSH LEVEL LAB 11/18/2012 04/16/2013 Inactive Keflex 500 mg capsule RxNorm: 900624 1 Capsule(s) PO TID 201211/19/2012 Inactive Keflex 500 mg capsule RxNorm: 992165 1 Capsule(s) PO TID 201211/12/2012 Inactive Byetta 10 mcg/0.04 mL per dose Sub-Q Pen Injector RxNorm: 162090 Pen Injector SQ DIAL AND INJECT SUBCUTANEOUSLY 10 MCG TWICE DAILY WITHIN 60 MINUTES BEFORE MORNING AND EVENING MEALS. DO NOT ADMINISTER AFTER A MEAL. 04/03/2014 Inactive cyanocobalamin (vitamin B-12) 1,000 mcg/mL Injection RxNorm: 698894 1 Milliliter(s ) Inj 10/23/2012 10/23/2012 Inactive Lortab 5 mg-500 mg tablet RxNorm: 588979 1-2 Tablet(s) PO Q4 PRN q 4-6hrs prn pain 10/02/2012 12/22/2013 Inactive cyanocobalamin (vitamin B-12) 1,000 mcg/mL Injection RxNorm: 444792 Milliliter(s) Inj 09/16/2012 09/16/2012 Inactive Vitamin B-12 1,000 mcg/mL Injection RxNorm: 891449 1 Milliliter(s) Inj 08/15/2012 08/15/2012 Inactive glipizide 10 mg tablet RxNorm: 431694 Tablet(s) PO TAKE ONE TABLET BY MOUTH TWICE A DAY 08/12/2012 08/14/2013 Inactive Tenex 1 mg tablet RxNorm: 103123 Tablet(s) PO TAKE ONE TABLET BY MOUTH EVERY DAY 08/12/2012 08/04/2013 Inactive Kenalog 40 mg/mL Susp for Injection RxNorm: 7647299 1 Milliliter(s) Inj 08/06/2012 01/22/2013 Inactive spironolactone 25 mg tablet RxNorm: 544501 Tablet(s) PO TAKE ONE TABLET BY MOUTH TWICE A DAY 07/29/2012 07/30/2013 Inactive cefdinir 300 mg capsule RxNorm: 220542 1 Capsule(s) PO BID 08/01/2012 Inactive cefdinir 300 mg capsule RxNorm: 035675 1 Capsule(s) PO BID 07/25/2012 Inactive Vitamin B-12 1,000 mcg/mL Injection RxNorm: 683870 1 Milliliter(s) Inj 07/19/2012 07/19/2012 Inactive simvastatin 20 mg tablet RxNorm: 806211 Tablet(s) PO TAKE ONE TABLET BY MOUTH AT BEDTIME 07/08/2012 04/09/2013 Inactive simvastatin 20 mg tablet RxNorm: 967411 Tablet(s) PO TAKE ONE TABLET BY MOUTH AT BEDTIME 07/08/2012 10/07/2015 Inactive Synthroid 50 mcg tablet RxNorm: 349533 1 Tablet(s) PO daily 12/201110/31/2012 Inactive Please advise patient due for TSH level. amlodipine 5 mg tablet RxNorm: 361822 1 Tablet(s) PO BID 201112/15/2012 Inactive amlodipine 5 mg tablet RxNorm: 362544 1 Tablet(s) PO BID 201106/18/2012 Inactive Vitamin B-12 1,000 mcg/mL Injection RxNorm: 496942 Milliliter(s) Inj 06/19/2012 06/19/2012 Inactive Lopressor 100 mg tablet RxNorm: 451294 Tablet(s) PO 06/17/2012 03/17/2013 Inactive TAKE ONE TABLET BY MOUTH EVERY DAY Vitamin B-12 1,000 mcg/mL Injection RxNorm: 837346 Milliliter(s) Inj 05/22/2012 05/22/2012 Inactive Synthroid 50 mcg tablet RxNorm: 232556 1 Tablet(s) PO daily 06/11/2012 Inactive Please advise patient due for TSH level. Diflucan 150 mg tablet RxNorm: 624647 1 Tablet(s) PO daily 11/18/2012 Inactive metformin ER 500 mg tablet,extended release 24 hr RxNorm: 561697 2 Tablet(s) PO BID 04/25/2012 05/19/2013 Inactive Vitamin B-12 1,000 mcg/mL Injection RxNorm: 639786 Milliliter(s) Inj 04/22/2012 04/22/2012 Inactive Vitamin B-12 1,000 mcg/mL Injection RxNorm: 442923 Milliliter(s) Inj 03/19/2012 03/19/2012 Inactive Vitamin B-12 1,000 mcg/mL Injection RxNorm: 647875 Milliliter(s) Inj 02/15/2012 02/15/2012 Inactive Tricor 145 mg tablet RxNorm: 886988 1 Tablet(s) PO daily 201102/13/2013 Inactive Vitamin B-12 1,000 mcg/mL Injection RxNorm: 086030 Milliliter(s) Inj 01/18/2012 01/18/2012 Inactive Kenalog 40 mg/mL Susp for Injection RxNorm: 7568478 1 Milliliter(s) Inj 12/28/2011 12/28/2011 Inactive Vitamin B-12 1,000 mcg/mL Injection RxNorm: 317634 Milliliter(s) Inj 12/20/2011 12/20/2011 Inactive omeprazole 20 mg Cap, delayed release RxNorm: 563148 1 Capsule(s) PO daily 12/07/2011 11/30/2012 Inactive may take bid if nec cyanocobalamin (vitamin B-12) 1,000 mcg/mL Injection RxNorm: 689362 1 Milliliter(s ) Inj 11/07/2011 11/07/2011 Inactive cyanocobalamin (vitamin B-12) 1,000 mcg/mL Injection RxNorm: 330482 1 Milliliter(s ) Inj 10/03/2011 10/03/2011 Inactive Synthroid 50 mcg tablet RxNorm: 711026 1 Tablet(s) PO daily 03/08/2012 Inactive Byetta 10 mcg/0.04 mL per dose Sub-Q Pen Injector RxNorm: 008235 10 Microgram(s) SQ BID 08/29/2011 09/21/2012 Inactive metformin ER 500 mg tablet,extended release 24 hr RxNorm: 383725 2 Tablet(s) PO BID 08/15/2011 02/10/2012 Inactive cyanocobalamin (vitamin B-12) 1,000 mcg/mL Injection RxNorm: 361842 1 Milliliter(s ) Inj 07/28/2011 07/28/2011 Inactive NovoFine 30 Needle RxNorm: 1 Miscellaneous BID 07/28/2011 03/18/2013 Inactive OneTouch Ultra Test strips RxNorm: 1 Miscellaneous BID 201003/18/2013 Inactive guanfacine 1 mg Tab RxNorm: 665111 1 Tablet(s) PO daily 201007/10/2012 Inactive glipizide 10 mg tablet RxNorm: 658041 1 Tablet(s) PO BID 201008/09/2012 Inactive Tenex 1 mg tablet RxNorm: 176598 1 Tablet(s) PO daily 201008/09/2012 Inactive lisinopril 20 mg tablet RxNorm: 427481 1 Tablet(s) PO daily pt 07/04/2011 04/21/2012 Inactive pt may have #90 with year if insurance pays spironolactone 25 mg tablet RxNorm: 935604 1 Tablet(s) PO BID 07/03/2011 07/26/2012 Inactive simvastatin 20 mg Tab RxNorm: 381589 1 Tablet(s) PO QHS 201006/28/2011 Inactive cyanocobalamin (vitamin B-12) 1,000 mcg/mL Injection RxNorm: 401869 Milliliter(s) Inj 06/29/2011 06/29/2011 Inactive simvastatin 20 mg tablet RxNorm: 264159 1 Tablet(s) PO QHS 07/201006/22/2012 Inactive Lopressor 100 mg tablet RxNorm: 836388 1 Tablet(s) PO daily 06/16/2012 Inactive ketorolac 60 mg/2 mL IM RxNorm: 949050 Milliliter(s) IM 201005/23/2011 Inactive cyanocobalamin (vitamin B-12) 1,000 mcg/mL Injection RxNorm: 008019 Milliliter(s) Inj 05/23/2011 05/23/2011 Inactive Influenza Virus Vaccine 0.5 mL RxNorm: IM 04/26/2011 04/26/2011 Inactive Vitamin B-12 1,000 mcg/mL Injection RxNorm: 220438 Milliliter(s) Inj 04/26/2011 04/26/2011 Inactive Lomotil 2.5 mg-0.025 mg tablet RxNorm: 7540606 1 Tablet(s) PO Q8 PRN 04/26/2011 11/27/2013 Inactive atorvastatin 10 mg tablet RxNorm: 444734 1 Tablet(s) PO QHS No Start Date Active multivitamin tablet RxNorm: 1 Tablet(s) PO daily No Start Date Active clopidogrel 75 mg tablet RxNorm: 688095 1 Tablet(s) PO daily No Start Date Active Tricor 145 mg Tab RxNorm: 651661 1 Tablet(s) PO daily No Start Date 02/07/2012 Inactive amiodarone 200 mg tablet RxNorm: 168198 1 Tablet(s) PO daily No Start Date 01/28/2018 Inactive Synthroid 50 mcg Tab RxNorm: 307834 1 Tablet(s) PO daily No Start Date 09/10/2011 Inactive lisinopril 20 mg tablet RxNorm: 741416 1 Tablet(s) PO daily No Start Date 06/18/2012 Inactive Lortab 5 mg-500 mg tablet RxNorm: 953282 1 Tablet(s) PO Q4 PRN q 4hrs prn pain No Start Date 10/01/2012 Inactive Tenex 1 mg Tab RxNorm : 690063 1 Tablet(s) PO daily No Start Date 07/16/2011 Inactive lisinopril 40 mg tablet RxNorm: 754544 Tablet(s) PO No Start Date 05/21/2012 Inactive Voltaren 1 % Topical Gel RxNorm: 123257 TOP as directed No Start Date 11/29/2015 Inactive iron 325 mg (65 mg iron) Tab RxNorm: 090203 1 Tablet(s) PO daily No Start Date 02/22/2015 Inactive Zithromax Z-J Luis 250 mg tablet RxNorm: 262426 Tablet(s) PO UD No Start Date 01/22/2013 Inactive Byetta 10 mcg/0.04 mL per dose Sub-Q Pen Injector RxNorm: 501191 Milliliter(s) SQ BID No Start Date 08/28/2011 Inactive Mouth Sore oral RxNorm : 1399 mucous membrane No Start Date 01/28/2018 Inactive cyanocobalamin (vitamin B-12) 1,000 mcg/mL Injection RxNorm: 134631 1 Milliliter(s ) Inj month No Start Date 11/30/2015 Inactive Tessalon 200 mg capsule RxNorm: 966207 1 Capsule(s) PO TID PRN No Start Date 01/21/2013 Inactive metoprolol succinate ER 100 mg tablet,extended release 24 hr RxNorm: 606228 1 Tablet(s) PO daily No Start Date 2017 Inactive Victoza 2-J Luis 0.6 mg/0.1 mL (18 mg/3 mL) subcutaneous pen injector RxNorm: 596056 1.2 Milligram(s) SQ daily No Start Date Inactive simvastatin 20 mg Tab RxNorm: 073222 1 Tablet(s) PO QHS No Start Date 06/28/2011 Inactive spironolactone 25 mg Tab RxNorm: 862249 1 Tablet(s) PO BID No Start Date 07/02/2011 Inactive Diflucan 150 mg tablet RxNorm: 463228 1 Tablet(s) PO daily No Start Date 04/24/2012 Inactive guanfacine 1 mg Tab RxNorm: 301765 1 Tablet(s) PO daily No Start Date 07/16/2011 Inactive Ativan 1 mg Tab RxNorm : 698006 1/2-1 Tablet(s) PO Q6 PRN 1/2 - 1 tab q 6 hours if needed for anxiety No Start Date 2013 Inactive metformin ER 500 mg 24 hr Tab RxNorm: 051255 2 Tablet(s) PO BID No Start Date 08/14/2011 Inactive warfarin 2 mg tablet RxNorm: 283786 1 Tablet(s) PO daily No Start Date 01/28/2018 Inactive Lopressor 100 mg Tab RxNorm: 470671 1 Tablet(s) PO daily No Start Date 06/26/2011 Inactive glipizide 10 mg Tab RxNorm: 643002 1 Tablet(s) PO BID No Start Date 07/16/2011 Inactive KCL 10 meq RxNorm: PO as directed daily when taking lasix No Start Date 01/22/2013 Inactive lisinopril 20 mg Tab RxNorm: 989907 1 Tablet(s) PO daily No Start Date 07/03/2011 Inactive One Touch Ultra Test Strips RxNorm: 1 Miscellaneous BID No Start Date 07/27/2011 Inactive aspirin 81 mg Tab, Delayed Release RxNorm: 595352 1 Tablet(s) PO daily No Start Date 01/28/2018 Inactive omeprazole 20 mg Cap, delayed release RxNorm: 594637 1 Capsule(s) PO BID No Start Date 12/06/2011 Inactive Lasix 20 mg tablet RxNorm: 686150 Tablet(s) PO as directed daily prn swelling - to take kcl with lasix No Start Date 01/21 Inactive Vitamin D 1,000 unit Tab RxNorm: 337662 1 Tablet(s) PO daily No Start Date 01/28/2018 Inactive niacin 500 mg Tab RxNorm: 364301 1 Tablet(s) PO QHS No Start Date 04/03/2014 Inactive Medication Administered Medication Codes Instructions Start Date Status Kenalog 40 mg/mL suspension for injection RxNorm: 5215217 1Milliliter 05/29/2018 No longer Active cyanocobalamin (vit B-12) 1,000 mcg/mL injection solution RxNorm: 236958 1Milliliter 05/07/2018 No longer Active cyanocobalamin (vit B-12) 1,000 mcg/mL injection solution RxNorm: 568743 Milliliter 04/04/2018 No longer Active cyanocobalamin (vit B-12) 1,000 mcg/mL injection solution RxNorm: [id number] 1Milliliter 03/04/2018 No longer Active cyanocobalamin (vit B-12) 1,000 mcg/mL injection solution RxNorm: 184845 1Milliliter 01/29/2018 No longer Active cyanocobalamin (vit B-12) 1,000 mcg/mL injection solution RxNorm: 520856 Milliliter 12/18/2017 No longer Active cyanocobalamin (vit B-12) 1,000 mcg/mL injection solution RxNorm: 241751 1Milliliter 11/20/2017 No longer Active cyanocobalamin (vit B-12) 1,000 mcg/mL injection solution RxNorm: 812563 1Milliliter 08/21/2017 No longer Active cyanocobalamin (vit B-12) 1,000 mcg/mL injection solution RxNorm: 924910 1Milliliter 07/18/2017 No longer Active cyanocobalamin (vit B-12) 1,000 mcg/mL injection solution RxNorm: 624114 1Milliliter 06/18/2017 No longer Active Kenalog 40 mg/mL suspension for injection RxNorm: 6161797 1Milliliter 06/18/2017 No longer Active cyanocobalamin (vit B-12) 1,000 mcg/mL injection solution RxNorm: 445625 1Milliliter 05/09/2017 No longer Active cyanocobalamin (vit B-12) 1,000 mcg/mL injection solution RxNorm: 808252 1Milliliter 04/04/2017 No longer Active Kenalog 40 mg/mL suspension for injection RxNorm: 5258017 1Milliliter 02/23/2017 No longer Active cyanocobalamin (vit B-12) 1,000 mcg/mL injection solution RxNorm: 382510 Milliliter 01/23/2017 No longer Active cyanocobalamin (vit B-12) 1,000 mcg/mL injection solution RxNorm: 164406 1Milliliter 11/14/2016 No longer Active Kenalog 40 mg/mL suspension for injection RxNorm: 1280777 1Milliliter 09/07/2016 No longer Active cyanocobalamin (vit B-12) 1,000 mcg/mL injection solution RxNorm: 777738 1Milliliter 08/29/2016 No longer Active cyanocobalamin (vit B-12) 1,000 mcg/mL injection solution RxNorm: 428637 Milliliter 06/12/2016 No longer Active ceftriaxone 500 mg solution for injection RxNorm: 1895717 2Milliliter 05/04/2016 No longer Active cyanocobalamin (vit B-12) 1,000 mcg/mL injection solution RxNorm: 214316 Milliliter 05/04/2016 No longer Active cyanocobalamin (vit B-12) 1,000 mcg/mL injection solution RxNorm: 151945 Milliliter 03/17/2016 No longer Active cyanocobalamin (vit B-12) 1,000 mcg/mL injection solution RxNorm: 334229 1Milliliter 02/15/2016 No longer Active cyanocobalamin (vit B-12) 1,000 mcg/mL injection solution RxNorm: 481517 Milliliter 01/19/2016 No longer Active cyanocobalamin (vit B-12) 1,000 mcg/mL injection solution RxNorm: 136520 1Milliliter 12/07/2015 No longer Active cyanocobalamin (vit B-12) 1,000 mcg/mL injection kit RxNorm : 121757 kit 09/06/2015 No longer Active ceftriaxone 500 mg solution for injection RxNorm: 1827295 09/06/2015 No longer Active ceftriaxone 500 mg solution for injection RxNorm: 2007685 07/05/2015 No longer Active Kenalog 40 mg/mL suspension for injection RxNorm: 5926455 Milliliter 07/05/2015 No longer Active cyanocobalamin (vit B-12) 1,000 mcg/mL injection solution RxNorm: 526304 Milliliter 06/28/2015 No longer Active cyanocobalamin (vit B-12) 1,000 mcg/mL injection solution RxNorm: 276562 Milliliter 05/13/2015 No longer Active cyanocobalamin (vit B-12) 1,000 mcg/mL injection solution RxNorm: 086355 Milliliter 02/23/2015 No longer Active cyanocobalamin (vit B-12) 1,000 mcg/mL injection solution RxNorm: 042944 Milliliter 01/08/2015 No longer Active cyanocobalamin (vit B-12) 1,000 mcg/mL injection solution RxNorm: 706424 Milliliter 12/08/2014 No longer Active cyanocobalamin (vit B-12) 1,000 mcg/mL injection solution RxNorm: 343755 Milliliter 10/26/2014 No longer Active cyanocobalamin (vit B-12) 1,000 mcg/mL injection solution RxNorm: 199650 Milliliter 09/24/2014 No longer Active cyanocobalamin (vit B-12) 1,000 mcg/mL injection solution RxNorm: 810941 Milliliter 08/24/2014 No longer Active cyanocobalamin (vit B-12) 1,000 mcg/mL injection solution RxNorm: 034895 1Milliliter 06/01/2014 No longer Active Kenalog 40 mg/mL suspension for injection RxNorm: 3620464 1Milliliter 05/11/2014 No longer Active cyanocobalamin (vit B-12) 1,000 mcg/mL injection kit RxNorm : 024292 Milliliter 04/27/2014 No longer Active cyanocobalamin (vit B-12) 1,000 mcg/mL injection kit RxNorm : 229101 1Milliliter 03/24/2014 No longer Active cyanocobalamin (vit B-12) 1,000 mcg/mL injection solution RxNorm: 114003 1Milliliter 03/24/2014 No longer Active cyanocobalamin (vit B-12) 1,000 mcg/mL injection solution RxNorm: 630319 1Milliliter 02/24/2014 No longer Active cyanocobalamin (vit B-12) 1,000 mcg/mL injection solution RxNorm: 635100 Milliliter 01/09/2014 No longer Active cyanocobalamin (vit B-12) 1,000 mcg/mL injection solution RxNorm: 156743 1Milliliter 11/27/2013 No longer Active Vitamin B-12 1,000 mcg/mL injection solution RxNorm: 224706 1Milliliter 09/18/2013 No longer Active Vitamin B-12 1,000 mcg/mL injection solution RxNorm: 344795 1Milliliter 08/22/2013 No longer Active Vitamin B-12 1,000 mcg/mL injection solution RxNorm: 164766 Milliliter 07/28/2013 No longer Active Vitamin B-12 1,000 mcg/mL injection solution RxNorm: 571562 1Milliliter 05/21/2013 No longer Active Influenza Virus Vaccine 0.5 mL RxNorm: 04/23/2013 No longer Active Vitamin B-12 1,000 mcg/mL Injection RxNorm: 300040 Milliliter 04/23/2013 No longer Active Vitamin B-12 1,000 mcg/mL Injection RxNorm: 360591 1Milliliter 03/24/2013 No longer Active cyanocobalamin (vitamin B-12) 1,000 mcg/mL Injection RxNorm : 630246 Milliliter 02/20/2013 No longer Active Vitamin B-12 1,000 mcg/mL Injection RxNorm: 432503 1Milliliter 01/22/2013 No longer Active cyanocobalamin (vitamin B-12) 1,000 mcg/mL Injection RxNorm : 136835 Milliliter 12/19/2012 No longer Active cyanocobalamin (vitamin B-12) 1,000 mcg/mL Injection RxNorm : 920452 Milliliter 11/20/2012 No longer Active cyanocobalamin (vitamin B-12) 1,000 mcg/mL Injection RxNorm : 046530 1Milliliter 10/23/2012 No longer Active cyanocobalamin (vitamin B-12) 1,000 mcg/mL Injection RxNorm : 963146 Milliliter 09/16/2012 No longer Active Vitamin B-12 1,000 mcg/mL Injection RxNorm: 039126 1Milliliter 08/15/2012 No longer Active Vitamin B-12 1,000 mcg/mL Injection RxNorm: 294286 1Milliliter 07/19/2012 No longer Active Vitamin B-12 1,000 mcg/mL Injection RxNorm: 416684 Milliliter 06/19/2012 No longer Active Vitamin B-12 1,000 mcg/mL Injection RxNorm: 823488 Milliliter 05/22/2012 No longer Active Vitamin B-12 1,000 mcg/mL Injection RxNorm: 048312 Milliliter 04/22/2012 No longer Active Vitamin B-12 1,000 mcg/mL Injection RxNorm: 149656 Milliliter 03/19/2012 No longer Active Vitamin B-12 1,000 mcg/mL Injection RxNorm: 969521 Milliliter 02/15/2012 No longer Active Vitamin B-12 1,000 mcg/mL Injection RxNorm: 790514 Milliliter 01/18/2012 No longer Active Kenalog 40 mg/mL Susp for Injection RxNorm: 7820315 1Milliliter 12/28/2011 No longer Active Vitamin B-12 1,000 mcg/mL Injection RxNorm: 090382 Milliliter 12/20/2011 No longer Active cyanocobalamin (vitamin B-12) 1,000 mcg/mL Injection RxNorm : 913502 1Milliliter 11/07/2011 No longer Active cyanocobalamin (vitamin B-12) 1,000 mcg/mL Injection RxNorm : 584708 1Milliliter 10/03/2011 No longer Active cyanocobalamin (vitamin B-12) 1,000 mcg/mL Injection RxNorm : 412543 1Milliliter 07/28/2011 No longer Active cyanocobalamin (vitamin B-12) 1,000 mcg/mL Injection RxNorm : 202844 Milliliter 06/29/2011 No longer Active cyanocobalamin (vitamin B-12) 1,000 mcg/mL Injection RxNorm : 906160 Milliliter 05/23/2011 No longer Active ketorolac 60 mg/2 mL IM RxNorm: 349482 Milliliter 05/23/2011 No longer Active Influenza Virus Vaccine 0.5 mL RxNorm: 04/26/2011 No longer Active Vitamin B-12 1,000 mcg/mL Injection RxNorm: 710027 Milliliter 04/26/2011 No longer Active Immunizations Vaccine Codes Date Status Influenza CVX: 141 04/04/2018 completed Pneumococcal (Adult) CVX: 133 01/29/2018 completed Influenza CVX: 141 04/25/2017 completed Influenza CVX: 141 04/03/2014 completed Influenza CVX: 141 04/23/2013 completed Influenza CVX: 141 04/22/2012 completed Pneumococcal CVX: 33 01/30/2012 completed Influenza CVX: 141 04/26/2011 completed Assessments Condition Codes Effective Dates Sacrococcygeal disorders, not elsewhere classified ICD-10: M53.3 ICD-9: 724.6 05/29/2018 Low back pain ICD-10: M54.5 ICD-9: 724.2 05/29/2018 Sciatica, right side ICD-10: M54.31 ICD-9: 724.3 05/29/2018 Encounter for screening mammogram for malignant neoplasm of breast ICD-10: Z12.31 ICD-9: V76.12 05/20/2018 Type 2 diabetes mellitus without complications ICD-10: E11.9 ICD-9: 250.00 05/07/2018 Chronic kidney disease, stage 3 (moderate) ICD-10: N18.3 ICD-9: 585.3 05/07/2018 Other vitamin B12 deficiency anemias ICD-10: D51.8 ICD-9: 281.1 05/07/2018 Essential (primary) hypertension ICD-10: I10 ICD-9: 401.9 05/07/2018 VACCIN FOR INFLUENZA ICD-10: Z23 ICD-9: V04.81 04/04/2018 Encounter for immunization ICD-10: Z23 ICD-9: V03.82 01/29/2018 Encounter for general adult medical examination with abnormal findings ICD-10: Z00.01 ICD-9: V70.0 01/29/2018 Chronic atrial fibrillation ICD-10: I48.2 ICD-9: 427.31 01/01/2018 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 ICD-9: 528.2 12/27/2017 Other lesions of oral mucosa ICD-10: K13.79 ICD-9: 528.9 12/27/2017 Type 2 diabetes mellitus with hyperglycemia ICD-10: E11.65 ICD-9: 250.02 12/18/2017 Pain in left knee ICD-10: M25.562 ICD-9: 719.46 12/18/2017 Vitamin B12 deficiency anemia, unspecified ICD-10: D51.9 ICD-9: 281.1 11/20/2017 Allergic rhinitis due to animal (cat) (dog) hair and dander ICD-10: J30.81 ICD-9: 477.8 06/18/2017 Spontaneous ecchymoses ICD-10: R23.3 ICD-9: 782.7 06/07/2017 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 ICD-9: 564.5 06/07/2017 Encounter for immunization ICD-10: Z23 ICD-9: V03.9 04/25/2017 Sacroiliitis, not elsewhere classified ICD-10: M46.1 ICD-9: 720.2 02/23/2017 Sciatica, left side ICD-10: M54.32 ICD-9: 724.3 02/23/2017 Cough ICD-10: R05 ICD-9: 786.2 09/07/2016 Acute bronchitis, unspecified ICD-10: J20.9 ICD-9: 466.0 09/07/2016 Acute recurrent maxillary sinusitis ICD-10: J01.01 ICD-9: 461.0 08/29/2016 Acute laryngopharyngitis ICD-10: J06.0 ICD-9: 465.0 08/29/2016 Other allergic rhinitis ICD-10: J30.89 ICD-9: 477.8 06/12/2016 Fever, unspecified ICD-10: R50.9 ICD-9: 780.60 05/04/2016 Urinary tract infection, site not specified ICD-10: N39.0 ICD-9: 599.0 05/04/2016 Type 2 diabetes mellitus with diabetic autonomic (poly)neuropathy ICD-10: E11.43 ICD-9: 250.60 03/30/2016 Unspecified acute conjunctivitis, right eye ICD-10: H10.31 ICD-9: 372.00 09/06/2015 Pain in right knee ICD-10: M25.561 ICD-9: 719.46 08/04/2015 Streptococcal pharyngitis ICD-10: J02.0 ICD-9: 034.0 07/05/2015 Other screening mammogram ICD-9: V76.12 03/03/2015 DM W/O COMPLICATION TYPE II, UNCONTROLLED ICD-9: 250.02 02/23/2015 Iron deficiency ICD-9: 280.9 02/23/2015 B12 deficiency ICD-9: 266.2 02/23/2015 ESSENTIAL HYPERTENSION ICD-9: 401.9 02/23 Right knee pain ICD-9: 719.46 01/08/2015 Left sided sciatica ICD-9: 724.3 2013 Sacroiliitis ICD-9: 720.2 05/11/2014 CELLULITIS OF BUTTOCK ICD-9: 682.5 2013 LUMBAGO ICD-9: 724.2 04/03/2014 DIABETES TYPE II ICD-9: 250.00 2013 ANEMIA ICD-9: 285.9 11/24/2013 EDEMA ICD-9: 782.3 07/28/2013 VACCIN FOR INFLUENZA ICD-9: V04.81 2012 ACUTE URI ICD-9: 465.9 08/06/2012 COUGH ICD-9: 786.2 08/06/2012 ALLERGIC RHINITIS ICD-9: 477.9 2012 PAIN IN LIMB ICD-9: 729.5 08/23/2011 Feces incontinence ICD-9: 787.60 2010 Reason For Visit Reason For Visit Effective Dates Notes back pain 05/29/2018 diabetes mellitus 05/07/2018 vaccination against influenza 04/04/2018 Annual Medicare Wellness Exam 01/29/2018 knee pain 01/01/2018 knee pain 12/18/2017 knee pain 12/13/2017 diabetes mellitus 06/18/2017 diarrhea 06/07/2017 vaccination against influenza 04/25/2017 diabetes mellitus 04/16/2017 hip pain 02/23/2017 diabetes mellitus 12/26/2016 cough 09/07/2016 cough 08/29/2016 cough 06/12/2016 fever 05/04/2016 hypertension 03/30/2016 hypertension 11/30/2015 cough 09/06/2015 knee pain 08/04/2015 cough 07/05/2015 hypertension 06/28/2015 hypertension 02/23/2015 hypertension 01/08/2015 hypertension 09/24/2014 low back and leg pain 05/11/2014 skin lesion 05/01/2014 right buttock hypertension 04/03/2014 diabetes mellitus 11/24/2013 diabetes mellitus 07/28/2013 diabetes mellitus 06/16/2013 vaccination against influenza 04/23/2013 edema 01/22/2013 low back and leg pain 10/02/2012 cough 08/06/2012 hip pain 07/10/2012 hypertension 07/04/2012 hypertension 05/22/2012 diabetes mellitus 04/22/2012 sciatica 12/28/2011 diabetes mellitus 12/20/2011 blood pressure followup 08/23/[address] Andrade had her wear a boot and it has been hurting since back pain 05/23/2011 vision change 04/26/2011 Results Observation Observation Code Item Item Code Result Date Cbc With Differential Ord2 WBC 5.25 K/ul 06/07/2017 Cbc With Differential Ord2 RBC 3.94 M/ul 06/07/2017 Cbc With Differential Ord2 HGB 11.2 g/dl 06/07/2017 Cbc With Differential Ord2 Neut% 59.8 % 06/07/2017 Cbc With Differential Ord2 HCT 34.4 % 06/07/2017 Cbc With Differential Ord2 MCV 87.3 fl 06/07/2017 Cbc With Differential Ord2 Lymph% 23.4 % 06/07/2017 Cbc With Differential Ord2 MCH 28.4 pg 06/07/2017 Cbc With Differential Ord2 Taylor% 12.6 % 06/07/2017 Cbc With Differential Ord2 MCHC 32.6 pg 06/07/2017 Cbc With Differential Ord2 Eos% 3.8 % 06/07/2017 Cbc With Differential Ord2 PLT 167 K/ul 06/07/2017 Cbc With Differential Ord2 Baso% 0.4 % 06/07/2017 Cbc With Differential Ord2 RDW 14.9 % 06/07/2017 Cbc With Differential Ord2 Neut ABS# 3.14 K/ul 06/07/2017 Cbc With Differential Ord2 Lymph ABS# 1.23 K/ul 06/07/2017 Cbc With Differential Ord2 Taylor ABS# 0.7 K/ul 06/07/2017 Cbc With Differential Ord2 Eos ABS# 0.2 K/ul 06/07/2017 Cbc With Differential Ord2 Baso ABS# 0.0 K/ul 06/07/2017 Culture Urine [id number] URINE CULTURE SEE NOTES 05/08/2016 Culture Urine [id number] Continued Results 05/08/2016 Urine Culture Ucult Complete >100,000 col/ml aerobic growth sent to ref lab 05/05/2016 IRON TEST [id number] IRON TEST 44 UG/DL 07/28/2013 TSH [id number] TSH 2.104 uIU/ML 07/28/2013 CBC [id number] WBC 6.2 10e9/L 07/28/2013 CBC [id number] RBC 3.95 10e12/L 07/28/2013 CBC [id number] HGB 11.2 g/dL 07/28/2013 CBC [id number] HCT DET 34.2 % 07/28/2013 CBC [id number] MCV 86.6 fL 07/28/2013 CBC [id number] MCH 28.4 pg 07/28/2013 CBC [id number] MCHC 32.7 g/dL 07/28/2013 CBC [id number] PLT 231 10e9/L 07/28/2013 CBC [id number] MPV 10.9 fL 07/28/2013 CBC [id number] JAZMYN % 61.0 % 07/28/2013 CBC [id number] LY % 27.8 % 07/28/2013 CBC [id number] MON % 8.0 % 07/28/2013 CBC [id number] EOS % 2.4 % 07/28/2013 CBC [id number] BASO % 0.8 % 07/28/2013 CBC [id number] RDW 14.0 % 07/28/2013 CBC [id number] ABS JAZMYN 3.78 10e9/L 07/28/2013 CBC [id number] ABS LYMPH 1.72 10e9/L 07/28/2013 CBC [id number] ABS MONO 0.50 10e9/L 07/28/2013 CBC [id number] ABS EOS 0.15 10e9/L 07/28/2013 CBC [id number] ABS BASO 0.05 10e9/L 07/28/2013 CBC [id number] RDW-SD 42.9 fL 07/28/2013 %SAT/TIBC [id number] TIBC 439 UG/DL 07/28/2013 %SAT/TIBC [id number] % SATURAT 10 % 07/28/2013 %SAT/TIBC [id number] UIBC 395 MCG/DL 07/28/2013 Review of Systems System Result Effective Dates Constitutional No recent illness 2017 Constitutional No chills 05/29/2018 Constitutional No fever 05/29/2018 Eyes No eye erythema 05/29/2018 Ears/Nose/Throat/Neck No nasal discharge 05/29/2018 Cardiovascular No chest pain/pressure Cardiovascular No dyspnea 05/29/2018 Respiratory No cough 05/29/2018 Respiratory No dyspnea 05/29/2018 Musculoskeletal joint complaint 2017 Neurologic No alteration of consciousness 05/29/2018 Neurologic No mental status change 2017 Musculoskeletal back pain 05/29/2018 Constitutional No recent illness 2017 Constitutional No anorexia 05/07/2018 Constitutional No diaphoresis 05/07/2018 Constitutional fatigue 05/07/2018 Constitutional No fever 05/07/2018 Constitutional No insomnia 05/07/2018 Constitutional No malaise 05/07/2018 Eyes No eye discharge 05/07/2018 Eyes No eye erythema 05/07/2018 Ears/Nose/Throat/Neck No dizziness 2017 Ears/Nose/Throat/Neck No nasal discharge 05/07/2018 Cardiovascular No chest pain/pressure 03/2018 Cardiovascular fatigue 05/07/2018 Cardiovascular hypertension 05/07/2018 Respiratory No productive sputum 2017 Respiratory No chest congestion 2017 Respiratory No cough 05/07/2018 Gastrointestinal No constipation 2017 Gastrointestinal No nausea 05/07/2018 Gastrointestinal No vomiting 05/07/2018 Musculoskeletal stiffness 05/07/2018 Neurologic No alteration of consciousness 05/07/2018 Psychiatric depression 05/07/2018 Endocrine diabetes mellitus type 2 2017 Hematologic/Lymphatic abnormal ecchymoses 05/07/2018 Genitourinary/Nephrology No dysuria 05/07 Dermatologic No sores 05/07/2018 Dermatologic No erythema 05/07/2018 Musculoskeletal back pain 05/07/2018 Musculoskeletal joint complaint 2017 Constitutional No recent illness 2017 Constitutional No anorexia 01/29/2018 Constitutional No diaphoresis 01/29/2018 Constitutional fatigue 01/29/2018 Constitutional No fever 01/29/2018 Constitutional No insomnia 01/29/2018 Constitutional No malaise 01/29/2018 Eyes No eye discharge 01/29/2018 Eyes No eye erythema 01/29/2018 Ears/Nose/Throat/Neck No dizziness 2017 Ears/Nose/Throat/Neck No nasal discharge 01/29/2018 Cardiovascular No chest pain/pressure 09/2017 Cardiovascular fatigue 01/29/2018 Cardiovascular hypertension 01/29/2018 Respiratory No productive sputum 2017 Respiratory No chest congestion 2017 Respiratory No cough 01/29/2018 Gastrointestinal No constipation 2017 Gastrointestinal No nausea 01/29/2018 Gastrointestinal No vomiting 01/29/2018 Musculoskeletal stiffness 01/29/2018 Musculoskeletal arthralgia(s) 01/29/2018 Neurologic No alteration of consciousness 01/29/2018 Endocrine diabetes mellitus type 2 2017 Hematologic/Lymphatic No abnormal ecchymoses 01/29/2018 Psychiatric anxiety 01/29/2018 Psychiatric depression 01/29/2018 Constitutional No recent illness 2017 Constitutional No anorexia 01/01/2018 Constitutional No diaphoresis 01/01/2018 Constitutional fatigue 01/01/2018 Constitutional No fever 01/01/2018 Constitutional No insomnia 01/01/2018 Constitutional No malaise 01/01/2018 Eyes No eye discharge 01/01/2018 Eyes No eye erythema 01/01/2018 Ears/Nose/Throat/Neck No dizziness 2017 Ears/Nose/Throat/Neck No nasal discharge 01/01/2018 Cardiovascular No chest pain/pressure 11/2017 Cardiovascular fatigue 01/01/2018 Cardiovascular hypertension 01/01/2018 Respiratory No productive sputum 2017 Respiratory No chest congestion 2017 Respiratory No cough 01/01/2018 Gastrointestinal No constipation 2017 Gastrointestinal No nausea 01/01/2018 Gastrointestinal No vomiting 01/01/2018 Musculoskeletal stiffness 01/01/2018 Musculoskeletal arthralgia(s) 01/01/2018 Dermatologic sores 01/01/2018 Neurologic No alteration of consciousness 01/01/2018 Psychiatric depression 01/01/2018 Endocrine diabetes mellitus type 2 2017 Hematologic/Lymphatic abnormal ecchymoses 01/01/2018 Constitutional No recent illness 2017 Constitutional No chills 12/27/2017 Constitutional fatigue 12/27/2017 Constitutional insomnia 12/27/2017 Ears/Nose/Throat/Neck sore throat 2017 Ears/Nose/Throat/Neck oral lesion 2017 Cardiovascular No chest pain/pressure Respiratory No cough 12/27/2017 Dermatologic No rash 12/27/2017 Dermatologic No sores 12/27/2017 Constitutional recent illness 12/18/2017 Constitutional No anorexia 12/18/2017 Constitutional No diaphoresis 12/18/2017 Constitutional fatigue 12/18/2017 Constitutional No fever 12/18/2017 Constitutional No insomnia 12/18/2017 Constitutional No malaise 12/18/2017 Eyes No eye discharge 12/18/2017 Eyes No eye erythema 12/18/2017 Ears/Nose/Throat/Neck No dizziness 2017 Ears/Nose/Throat/Neck No nasal discharge 12/18/2017 Cardiovascular No chest pain/pressure Cardiovascular fatigue 12/18/2017 Cardiovascular hypertension 12/18/2017 Respiratory No productive sputum 2017 Respiratory No chest congestion 2017 Respiratory No cough 12/18/2017 Gastrointestinal No constipation 2017 Gastrointestinal No nausea 12/18/2017 Gastrointestinal No vomiting 12/18/2017 Dermatologic sores 12/18/2017 Neurologic No alteration of consciousness 12/18/2017 Psychiatric depression 12/18/2017 Endocrine diabetes mellitus type 2 2017 Musculoskeletal stiffness 12/18/2017 Musculoskeletal arthralgia(s) 12/18/2017 Hematologic/Lymphatic abnormal ecchymoses 12/18/2017 Constitutional No recent illness 2017 Constitutional No chills 12/13/2017 Constitutional No fever 12/13/2017 Eyes No eye erythema 12/13/2017 Ears/Nose/Throat/Neck No nasal discharge 12/13/2017 Cardiovascular No chest pain/pressure Cardiovascular No dyspnea 12/13/2017 Respiratory No cough 12/13/2017 Respiratory No dyspnea 12/13/2017 Musculoskeletal joint complaint 2017 Neurologic No alteration of consciousness 12/13/2017 Neurologic No mental status change 2017 Constitutional recent illness 06/18/2017 Constitutional fatigue 06/18/2017 Constitutional No fever 06/18/2017 Constitutional No malaise 06/18/2017 Cardiovascular No chest pain/pressure Cardiovascular No dyspnea 06/18/2017 Cardiovascular No edema 06/18/2017 Cardiovascular No exercise intolerance Cardiovascular fatigue 06/18/2017 Cardiovascular No near-syncope/dizziness 06/18/2017 Respiratory No cough 06/18/2017 Gastrointestinal No abdominal pain 2016 Gastrointestinal diarrhea 06/18/2017 Musculoskeletal stiffness 06/18/2017 Neurologic No ataxia 06/18/2017 Neurologic No dizziness 06/18/2017 Psychiatric No anxiety 06/18/2017 Psychiatric depression 06/18/2017 Respiratory No productive sputum 2016 Endocrine diabetes mellitus type 2 2016 Ears/Nose/Throat/Neck No dizziness 2016 Ears/Nose/Throat/Neck facial pain 2016 Constitutional recent illness 06/07/2017 Constitutional fatigue 06/07/2017 Constitutional No fever 06/07/2017 Constitutional No malaise 06/07/2017 Psychiatric No anxiety 06/07/2017 Psychiatric No depression 06/07/2017 Neurologic No ataxia 06/07/2017 Neurologic No dizziness 06/07/2017 Respiratory No cough 06/07/2017 Gastrointestinal No abdominal pain 2016 Gastrointestinal diarrhea 06/07/2017 Musculoskeletal stiffness 06/07/2017 Cardiovascular No chest pain/pressure 03/2017 Cardiovascular No dyspnea 06/07/2017 Cardiovascular No edema 06/07/2017 Cardiovascular No exercise intolerance Cardiovascular fatigue 06/07/2017 Cardiovascular No near-syncope/dizziness 06/07/2017 Constitutional recent illness 04/16/2017 Constitutional No anorexia 04/16/2017 Constitutional No diaphoresis 04/16/2017 Constitutional fatigue 04/16/2017 Constitutional No fever 04/16/2017 Constitutional No insomnia 04/16/2017 Constitutional No malaise 04/16/2017 Eyes No eye discharge 04/16/2017 Eyes No eye erythema 04/16/2017 Ears/Nose/Throat/Neck No dizziness 2016 Ears/Nose/Throat/Neck No nasal discharge 04/16/2017 Cardiovascular No chest pain/pressure Respiratory No productive sputum 2016 Respiratory No chest congestion 2016 Respiratory No cough 04/16/2017 Gastrointestinal No constipation 2016 Gastrointestinal No nausea 04/16/2017 Gastrointestinal No vomiting 04/16/2017 Neurologic No alteration of consciousness 04/16/2017 Psychiatric depression 04/16/2017 Endocrine diabetes mellitus type 2 2016 Cardiovascular hypertension 04/16/2017 Dermatologic sores 04/16/2017 Cardiovascular fatigue 04/16/2017 Constitutional No recent illness 2016 Constitutional No anorexia 02/23/2017 Constitutional No night sweats 2016 Constitutional No chills 02/23/2017 Constitutional No diaphoresis 02/23/2017 Constitutional No fatigue 02/23/2017 Constitutional No fever 02/23/2017 Constitutional No insomnia 02/23/2017 Constitutional No malaise 02/23/2017 Constitutional No weight loss 02/23/2017 Constitutional No weight gain 02/23/2017 Gastrointestinal No nausea 02/23/2017 Gastrointestinal No vomiting 02/23/2017 Dermatologic No rash 02/23/2017 Dermatologic No sores 02/23/2017 Neurologic No alteration of consciousness 02/23/2017 Neurologic No weakness 02/23/2017 Musculoskeletal sciatica 02/23/2017 Constitutional No recent illness 2016 Constitutional No anorexia 12/26/2016 Constitutional No night sweats 2016 Constitutional No chills 12/26/2016 Constitutional No diaphoresis 12/26/2016 Constitutional fatigue 12/26/2016 Constitutional No fever 12/26/2016 Constitutional No insomnia 12/26/2016 Constitutional No malaise 12/26/2016 Eyes No eye discharge 12/26/2016 Eyes No eye erythema 12/26/2016 Ears/Nose/Throat/Neck No dizziness 2016 Ears/Nose/Throat/Neck No nasal discharge 12/26/2016 Cardiovascular No chest pain/pressure Respiratory No productive sputum 2016 Respiratory No chest congestion 2016 Respiratory No cough 12/26/2016 Gastrointestinal No constipation 2016 Gastrointestinal No nausea 12/26/2016 Gastrointestinal No vomiting 12/26/2016 Genitourinary/Nephrology No dysuria 12/26 Dermatologic No rash 12/26/2016 Dermatologic No sores 12/26/2016 Neurologic No alteration of consciousness 12/26/2016 Psychiatric depression 12/26/2016 Endocrine diabetes mellitus type 2 2016 Constitutional recent illness 09/07/2016 Constitutional No anorexia 09/07/2016 Constitutional No fever 09/07/2016 Constitutional fatigue 09/07/2016 Constitutional No diaphoresis 09/07/2016 Constitutional No chills 09/07/2016 Constitutional No night sweats 2016 Eyes No eye discharge 09/07/2016 Eyes No eye erythema 09/07/2016 Ears/Nose/Throat/Neck nasal allergies 03/2017 Ears/Nose/Throat/Neck nasal discharge 03/2017 Ears/Nose/Throat/Neck No otalgia 2016 Ears/Nose/Throat/Neck sinus congestion Ears/Nose/Throat/Neck No sore throat 03/2017 Cardiovascular No chest pain/pressure 03/2017 Respiratory cough 09/07/2016 Gastrointestinal No abdominal pain 2016 Genitourinary/Nephrology No dysuria 09/07 Musculoskeletal joint complaint 2016 Dermatologic No rash 09/07/2016 Neurologic No alteration of consciousness 09/07/2016 Constitutional recent illness 08/29/2016 Constitutional No anorexia 08/29/2016 Constitutional No night sweats 2016 Constitutional No chills 08/29/2016 Constitutional No diaphoresis 08/29/2016 Constitutional No fatigue 08/29/2016 Constitutional No fever 08/29/2016 Constitutional No insomnia 08/29/2016 Constitutional No malaise 08/29/2016 Eyes No eye discharge 08/29/2016 Eyes No eye erythema 08/29/2016 Ears/Nose/Throat/Neck No dizziness 2016 Ears/Nose/Throat/Neck nasal discharge Cardiovascular No chest pain/pressure Respiratory No productive sputum 2016 Respiratory No chest congestion 2016 Respiratory No cough 08/29/2016 Gastrointestinal No constipation 2016 Gastrointestinal No nausea 08/29/2016 Gastrointestinal No vomiting 08/29/2016 Genitourinary/Nephrology No dysuria 08/29 Dermatologic No rash 08/29/2016 Dermatologic No sores 08/29/2016 Neurologic No alteration of consciousness 08/29/2016 Psychiatric No depression 08/29/2016 Endocrine diabetes mellitus type 2 2016 Psychiatric No anxiety 08/29/2016 Musculoskeletal No joint complaint 2016 Ears/Nose/Throat/Neck No facial pain Ears/Nose/Throat/Neck headache 2016 Ears/Nose/Throat/Neck No sinusitis 2016 Ears/Nose/Throat/Neck No sore throat Cardiovascular No dyspnea 08/29/2016 Cardiovascular No edema 08/29/2016 Cardiovascular No fatigue 08/29/2016 Cardiovascular No syncope 08/29/2016 Respiratory No chest tightness 2016 Respiratory No cigarette smoking 2016 Respiratory No dyspnea 08/29/2016 Respiratory No wheezing 08/29/2016 Gastrointestinal No diarrhea 08/29/2016 Gastrointestinal No dyspepsia 08/29/2016 Musculoskeletal No muscle weakness 2016 Musculoskeletal No myalgias 08/29/2016 Neurologic No ataxia 08/29/2016 Neurologic No dizziness 08/29/2016 Neurologic No pain, facial 08/29/2016 Constitutional recent illness 06/12/2016 Constitutional No chills 06/12/2016 Constitutional No fever 06/12/2016 Eyes No eye erythema 06/12/2016 Ears/Nose/Throat/Neck nasal allergies Ears/Nose/Throat/Neck nasal discharge Ears/Nose/Throat/Neck postnasal drip Ears/Nose/Throat/Neck No sinus congestion 06/12/2016 Cardiovascular No chest pain/pressure Cardiovascular No dyspnea 06/12/2016 Respiratory cough 06/12/2016 Respiratory No dyspnea 06/12/2016 Respiratory No chest congestion 2015 Neurologic No alteration of consciousness 06/12/2016 Neurologic No mental status change 2015 Constitutional recent illness 05/04/2016 Constitutional anorexia 05/04/2016 Constitutional night sweats 05/04/2016 Constitutional chills 05/04/2016 Constitutional diaphoresis 05/04/2016 Constitutional fatigue 05/04/2016 Constitutional fever 05/04/2016 Constitutional No insomnia 05/04/2016 Constitutional No weight loss 05/04/2016 Constitutional No weight gain 05/04/2016 Constitutional No malaise 05/04/2016 Eyes No eye erythema 05/04/2016 Eyes No eye discharge 05/04/2016 Ears/Nose/Throat/Neck No dizziness 2015 Ears/Nose/Throat/Neck No headache 2015 Ears/Nose/Throat/Neck No nasal discharge 05/04/2016 Ears/Nose/Throat/Neck No otalgia 2015 Ears/Nose/Throat/Neck No sinus congestion 05/04/2016 Ears/Nose/Throat/Neck No sore throat 12/2015 Cardiovascular No chest pain/pressure 12/2015 Cardiovascular No dyspnea 05/04/2016 Respiratory No productive sputum 2015 Respiratory No chest congestion 2015 Respiratory No cough 05/04/2016 Gastrointestinal No abdominal pain 2015 Gastrointestinal No constipation 2015 Gastrointestinal No diarrhea 05/04/2016 Gastrointestinal nausea 05/04/2016 Gastrointestinal No vomiting 05/04/2016 Genitourinary/Nephrology No dysuria 05/04 Genitourinary/Nephrology urinary retention/hesitancy 05/04/2016 Musculoskeletal back pain 05/04/2016 Dermatologic No rash 05/04/2016 Neurologic No alteration of consciousness 05/04/2016 Psychiatric No anxiety 05/04/2016 Constitutional No recent illness 2015 Constitutional No anorexia 03/30/2016 Constitutional No night sweats 2015 Constitutional No chills 03/30/2016 Constitutional No diaphoresis 03/30/2016 Constitutional fatigue 03/30/2016 Constitutional No fever 03/30/2016 Constitutional No insomnia 03/30/2016 Constitutional No malaise 03/30/2016 Eyes No eye discharge 03/30/2016 Eyes No eye erythema 03/30/2016 Ears/Nose/Throat/Neck No dizziness 2015 Ears/Nose/Throat/Neck No nasal discharge 03/30/2016 Cardiovascular No chest pain/pressure 07/2015 Respiratory No productive sputum 2015 Respiratory No chest congestion 2015 Respiratory No cough 03/30/2016 Gastrointestinal No constipation 2015 Gastrointestinal No nausea 03/30/2016 Gastrointestinal No vomiting 03/30/2016 Genitourinary/Nephrology No dysuria 03/30 Musculoskeletal joint complaint 2015 Dermatologic No rash 03/30/2016 Dermatologic No sores 03/30/2016 Neurologic No alteration of consciousness 03/30/2016 Psychiatric depression 03/30/2016 Endocrine diabetes mellitus type 2 2015 Constitutional No recent illness 2015 Constitutional No anorexia 11/30/2015 Constitutional No night sweats 2015 Constitutional No chills 11/30/2015 Constitutional No diaphoresis 11/30/2015 Constitutional fatigue 11/30/2015 Constitutional No fever 11/30/2015 Constitutional No insomnia 11/30/2015 Constitutional No malaise 11/30/2015 Eyes No eye discharge 11/30/2015 Eyes No eye erythema 11/30/2015 Ears/Nose/Throat/Neck No dizziness 2015 Ears/Nose/Throat/Neck No nasal discharge 11/30/2015 Cardiovascular No chest pain/pressure 09/2015 Respiratory No productive sputum 2015 Respiratory No chest congestion 2015 Respiratory No cough 11/30/2015 Gastrointestinal No constipation 2015 Gastrointestinal No nausea 11/30/2015 Gastrointestinal No vomiting 11/30/2015 Genitourinary/Nephrology No dysuria 11/29 Musculoskeletal joint complaint 2015 Dermatologic No rash 11/30/2015 Dermatologic No sores 11/30/2015 Neurologic No alteration of consciousness 11/30/2015 Psychiatric depression 11/30/2015 Endocrine diabetes mellitus type 2 2015 Constitutional recent illness 09/06/2015 Constitutional No anorexia 09/06/2015 Constitutional No night sweats 2015 Constitutional chills 09/06/2015 Constitutional No diaphoresis 09/06/2015 Constitutional fatigue 09/06/2015 Constitutional No fever 09/06/2015 Constitutional No insomnia 09/06/2015 Constitutional No malaise 09/06/2015 Eyes eye discharge 09/06/2015 Eyes eye erythema 09/06/2015 Ears/Nose/Throat/Neck No dizziness 2015 Ears/Nose/Throat/Neck headache 2015 Ears/Nose/Throat/Neck nasal allergies 02/2016 Ears/Nose/Throat/Neck nasal discharge 02/2016 Ears/Nose/Throat/Neck No otalgia 2015 Ears/Nose/Throat/Neck sinus congestion Ears/Nose/Throat/Neck No sore throat 02/2016 Cardiovascular No chest pain/pressure 02/2016 Respiratory productive sputum 09/06/2015 Respiratory cough 09/06/2015 Gastrointestinal No abdominal pain 2015 Gastrointestinal No constipation 2015 Gastrointestinal No diarrhea 09/06/2015 Genitourinary/Nephrology No dysuria 09/06 Musculoskeletal No joint complaint 2015 Dermatologic No rash 09/06/2015 Constitutional No fever 08/04/2015 Constitutional No fatigue 08/04/2015 Constitutional No chills 08/04/2015 Constitutional No night sweats 2015 Eyes No eye discharge 08/04/2015 Eyes No eye erythema 08/04/2015 Ears/Nose/Throat/Neck No headache 2015 Ears/Nose/Throat/Neck No sore throat 12/2015 Ears/Nose/Throat/Neck No sinus congestion 08/04/2015 Ears/Nose/Throat/Neck No postnasal drip 08/04/2015 Cardiovascular No chest pain/pressure 12/2015 Cardiovascular No dyspnea 08/04/2015 Cardiovascular No edema 08/04/2015 Respiratory No chest congestion 2015 Respiratory cough 08/04/2015 Gastrointestinal No diarrhea 08/04/2015 Gastrointestinal No constipation 2015 Musculoskeletal joint complaint 2015 Constitutional recent illness 07/05/2015 Constitutional No anorexia 07/05/2015 Constitutional No night sweats 2014 Constitutional No chills 07/05/2015 Constitutional No diaphoresis 07/05/2015 Constitutional fatigue 07/05/2015 Constitutional No fever 07/05/2015 Constitutional No insomnia 07/05/2015 Constitutional No malaise 07/05/2015 Constitutional No weight loss 07/05/2015 Constitutional No weight gain 07/05/2015 Eyes No eye discharge 07/05/2015 Eyes No eye erythema 07/05/2015 Ears/Nose/Throat/Neck No dizziness 2014 Ears/Nose/Throat/Neck headache 2014 Ears/Nose/Throat/Neck nasal allergies 01/2015 Ears/Nose/Throat/Neck nasal discharge 01/2015 Ears/Nose/Throat/Neck otalgia 07/05/2015 Ears/Nose/Throat/Neck sinus congestion Ears/Nose/Throat/Neck sore throat 2014 Cardiovascular No chest pain/pressure 01/2015 Cardiovascular No dyspnea 07/05/2015 Respiratory productive sputum 07/05/2015 Respiratory No chest congestion 2014 Respiratory cough 07/05/2015 Gastrointestinal No abdominal pain 2014 Gastrointestinal No constipation 2014 Gastrointestinal No diarrhea 07/05/2015 Genitourinary/Nephrology No dysuria 07/05 Musculoskeletal joint complaint 2014 Dermatologic No rash 07/05/2015 Neurologic No alteration of consciousness 07/05/2015 Psychiatric depression 07/05/2015 Endocrine No dry or coarse skin 2014 Constitutional No recent illness 2014 Constitutional No anorexia 06/28/2015 Constitutional No night sweats 2014 Constitutional No chills 06/28/2015 Constitutional No diaphoresis 06/28/2015 Constitutional fatigue 06/28/2015 Constitutional No fever 06/28/2015 Constitutional No insomnia 06/28/2015 Constitutional No malaise 06/28/2015 Eyes No eye discharge 06/28/2015 Eyes No eye erythema 06/28/2015 Ears/Nose/Throat/Neck No dizziness 2014 Ears/Nose/Throat/Neck No nasal discharge 06/28/2015 Cardiovascular No chest pain/pressure Respiratory No productive sputum 2014 Respiratory No chest congestion 2014 Respiratory No cough 06/28/2015 Gastrointestinal No constipation 2014 Gastrointestinal diarrhea 06/28/2015 Gastrointestinal No nausea 06/28/2015 Gastrointestinal No vomiting 06/28/2015 Genitourinary/Nephrology No dysuria 06/28 Musculoskeletal joint complaint 2014 Dermatologic No rash 06/28/2015 Dermatologic No sores 06/28/2015 Neurologic No alteration of consciousness 06/28/2015 Endocrine diabetes mellitus type 2 2014 Psychiatric depression 06/28/2015 Constitutional No recent illness 2014 Constitutional No anorexia 02/23/2015 Constitutional No night sweats 2014 Constitutional No chills 02/23/2015 Constitutional No diaphoresis 02/23/2015 Constitutional fatigue 02/23/2015 Constitutional No fever 02/23/2015 Constitutional No insomnia 02/23/2015 Constitutional No malaise 02/23/2015 Eyes No eye discharge 02/23/2015 Eyes No eye erythema 02/23/2015 Ears/Nose/Throat/Neck No dizziness 2014 Ears/Nose/Throat/Neck No nasal discharge 02/23/2015 Cardiovascular No chest pain/pressure Respiratory No productive sputum 2014 Respiratory No chest congestion 2014 Respiratory No cough 02/23/2015 Gastrointestinal No constipation 2014 Gastrointestinal diarrhea 02/23/2015 Gastrointestinal No nausea 02/23/2015 Gastrointestinal No vomiting 02/23/2015 Genitourinary/Nephrology No dysuria 02/23 Musculoskeletal joint complaint 2014 Dermatologic No rash 02/23/2015 Dermatologic No sores 02/23/2015 Neurologic No alteration of consciousness 02/23/2015 Endocrine diabetes mellitus type 2 2014 Constitutional No recent illness 2014 Constitutional No anorexia 01/08/2015 Constitutional No night sweats 2014 Constitutional No chills 01/08/2015 Constitutional No diaphoresis 01/08/2015 Constitutional fatigue 01/08/2015 Constitutional No fever 01/08/2015 Constitutional No insomnia 01/08/2015 Constitutional No malaise 01/08/2015 Eyes No eye discharge 01/08/2015 Eyes No eye erythema 01/08/2015 Ears/Nose/Throat/Neck No dizziness 2014 Ears/Nose/Throat/Neck No nasal discharge 01/08/2015 Respiratory No productive sputum 2014 Respiratory No chest congestion 2014 Respiratory No cough 01/08/2015 Gastrointestinal No constipation 2014 Gastrointestinal diarrhea 01/08/2015 Gastrointestinal No nausea 01/08/2015 Gastrointestinal No vomiting 01/08/2015 Genitourinary/Nephrology No dysuria 01/08 Dermatologic No rash 01/08/2015 Dermatologic No sores 01/08/2015 Neurologic No alteration of consciousness 01/08/2015 Musculoskeletal joint complaint 2014 Cardiovascular No chest pain/pressure 06/2015 Constitutional No recent illness 2014 Constitutional No anorexia 09/24/2014 Constitutional No night sweats 2014 Constitutional No chills 09/24/2014 Constitutional No diaphoresis 09/24/2014 Constitutional fatigue 09/24/2014 Constitutional No fever 09/24/2014 Constitutional insomnia 09/24/2014 Constitutional No malaise 09/24/2014 Eyes No eye discharge 09/24/2014 Eyes No eye erythema 09/24/2014 Ears/Nose/Throat/Neck No dizziness 2014 Ears/Nose/Throat/Neck No nasal discharge 09/24/2014 Respiratory No productive sputum 2014 Respiratory No chest congestion 2014 Respiratory No cough 09/24/2014 Gastrointestinal No anorexia 09/24/2014 Gastrointestinal constipation 09/24/2014 Gastrointestinal No diarrhea 09/24/2014 Gastrointestinal No nausea 09/24/2014 Gastrointestinal No vomiting 09/24/2014 Genitourinary/Nephrology No dysuria 09/24 Musculoskeletal back pain 09/24/2014 Dermatologic No rash 09/24/2014 Dermatologic No sores 09/24/2014 Neurologic No alteration of consciousness 09/24/2014 Constitutional No recent illness 2013 Constitutional No anorexia 05/11/2014 Constitutional No night sweats 2013 Constitutional No chills 05/11/2014 Constitutional No diaphoresis 05/11/2014 Constitutional No fatigue 05/11/2014 Constitutional No fever 05/11/2014 Constitutional No insomnia 05/11/2014 Constitutional No malaise 05/11/2014 Constitutional No weight loss 05/11/2014 Constitutional No weight gain 05/11/2014 Gastrointestinal No vomiting 05/11/2014 Gastrointestinal No nausea 05/11/2014 Dermatologic No sores 05/11/2014 Dermatologic No rash 05/11/2014 Neurologic No alteration of consciousness 05/11/2014 Neurologic No weakness 05/11/2014 Dermatologic sores 05/01/2014 Respiratory No cough 05/01/2014 Cardiovascular No chest pain/pressure 09/2013 Cardiovascular No dyspnea 05/01/2014 Cardiovascular No hypertension 2013 Gastrointestinal No abdominal pain 2013 Musculoskeletal back pain 05/01/2014 Constitutional No recent illness 2013 Constitutional No fatigue 05/01/2014 Constitutional No fever 05/01/2014 Constitutional No anorexia 05/01/2014 Constitutional No night sweats 2013 Constitutional No chills 05/01/2014 Constitutional No diaphoresis 05/01/2014 Constitutional No malaise 05/01/2014 Eyes No eye discharge 05/01/2014 Eyes No eye erythema 05/01/2014 Ears/Nose/Throat/Neck No dizziness 2013 Ears/Nose/Throat/Neck No nasal discharge 05/01/2014 Respiratory No productive sputum 2013 Respiratory No chest congestion 2013 Gastrointestinal No anorexia 05/01/2014 Gastrointestinal No diarrhea 05/01/2014 Gastrointestinal No nausea 05/01/2014 Gastrointestinal No vomiting 05/01/2014 Genitourinary/Nephrology No dysuria 05/01 Neurologic No alteration of consciousness 05/01/2014 Gastrointestinal No anorexia 04/03/2014 Gastrointestinal constipation 04/03/2014 Gastrointestinal No diarrhea 04/03/2014 Gastrointestinal No vomiting 04/03/2014 Gastrointestinal No nausea 04/03/2014 Musculoskeletal back pain 04/03/2014 Constitutional No recent illness 2013 Constitutional No anorexia 04/03/2014 Constitutional No night sweats 2013 Constitutional No chills 04/03/2014 Constitutional No diaphoresis 04/03/2014 Constitutional fatigue 04/03/2014 Constitutional No fever 04/03/2014 Constitutional insomnia 04/03/2014 Constitutional No malaise 04/03/2014 Eyes No eye discharge 04/03/2014 Eyes No eye erythema 04/03/2014 Ears/Nose/Throat/Neck No nasal discharge 04/03/2014 Ears/Nose/Throat/Neck No dizziness 2013 Respiratory No productive sputum 2013 Respiratory No chest congestion 2013 Respiratory No cough 04/03/2014 Genitourinary/Nephrology No dysuria 04/03 Dermatologic No rash 04/03/2014 Dermatologic No sores 04/03/2014 Neurologic No alteration of consciousness 04/03/2014 Constitutional No recent illness 2013 Constitutional No anorexia 11/24/2013 Constitutional No night sweats 2013 Constitutional No chills 11/24/2013 Constitutional No diaphoresis 11/24/2013 Constitutional No fatigue 11/24/2013 Constitutional No fever 11/24/2013 Constitutional No insomnia 11/24/2013 Constitutional No malaise 11/24/2013 Eyes No eye discharge 11/24/2013 Eyes No eye erythema 11/24/2013 Ears/Nose/Throat/Neck No dizziness 2013 Ears/Nose/Throat/Neck No headache 2013 Respiratory No productive sputum 2013 Respiratory No chest congestion 2013 Respiratory No cough 11/24/2013 Gastrointestinal No abdominal pain 2013 Gastrointestinal No constipation 2013 Gastrointestinal No diarrhea 11/24/2013 Gastrointestinal No nausea 11/24/2013 Gastrointestinal No vomiting 11/24/2013 Genitourinary/Nephrology No dysuria 11/24 Musculoskeletal joint complaint 2013 Dermatologic No rash 11/24/2013 Dermatologic No sores 11/24/2013 Psychiatric No anxiety 11/24/2013 Psychiatric No depression 11/24/2013 Constitutional No recent illness 2012 Constitutional No anorexia 07/28/2013 Constitutional No night sweats 2012 Constitutional No chills 07/28/2013 Constitutional No diaphoresis 07/28/2013 Constitutional No fatigue 07/28/2013 Constitutional No fever 07/28/2013 Constitutional No insomnia 07/28/2013 Constitutional No malaise 07/28/2013 Eyes No eye discharge 07/28/2013 Eyes No eye erythema 07/28/2013 Ears/Nose/Throat/Neck No dizziness 2012 Ears/Nose/Throat/Neck No headache 2012 Respiratory No productive sputum 2012 Respiratory No chest congestion 2012 Respiratory No cough 07/28/2013 Gastrointestinal No abdominal pain 2012 Gastrointestinal No constipation 2012 Gastrointestinal No diarrhea 07/28/2013 Gastrointestinal No nausea 07/28/2013 Gastrointestinal No vomiting 07/28/2013 Genitourinary/Nephrology No dysuria 07/28 Musculoskeletal joint complaint 2012 Dermatologic No rash 07/28/2013 Dermatologic No sores 07/28/2013 Psychiatric No anxiety 07/28/2013 Psychiatric No depression 07/28/2013 Constitutional No recent illness 2012 Constitutional No anorexia 06/16/2013 Constitutional No night sweats 2012 Constitutional No chills 06/16/2013 Constitutional No diaphoresis 06/16/2013 Constitutional No fatigue 06/16/2013 Constitutional No fever 06/16/2013 Constitutional No insomnia 06/16/2013 Constitutional No malaise 06/16/2013 Eyes No eye discharge 06/16/2013 Eyes No eye erythema 06/16/2013 Ears/Nose/Throat/Neck No dizziness 2012 Ears/Nose/Throat/Neck No headache 2012 Respiratory No productive sputum 2012 Respiratory No chest congestion 2012 Respiratory No cough 06/16/2013 Gastrointestinal No abdominal pain 2012 Gastrointestinal No constipation 2012 Gastrointestinal No diarrhea 06/16/2013 Gastrointestinal No nausea 06/16/2013 Gastrointestinal No vomiting 06/16/2013 Genitourinary/Nephrology No dysuria 06/16 Musculoskeletal joint complaint 2012 Dermatologic No rash 06/16/2013 Dermatologic No sores 06/16/2013 Psychiatric No anxiety 06/16/2013 Psychiatric No depression 06/16/2013 Constitutional No recent illness 2012 Constitutional No anorexia 01/22/2013 Constitutional No night sweats 2012 Constitutional No chills 01/22/2013 Constitutional No diaphoresis 01/22/2013 Constitutional No fatigue 01/22/2013 Constitutional No fever 01/22/2013 Constitutional No insomnia 01/22/2013 Constitutional No malaise 01/22/2013 Eyes No eye discharge 01/22/2013 Eyes No eye erythema 01/22/2013 Ears/Nose/Throat/Neck No dizziness 2012 Ears/Nose/Throat/Neck No headache 2012 Respiratory No productive sputum 2012 Respiratory No chest congestion 2012 Respiratory No cough 01/22/2013 Gastrointestinal No abdominal pain 2012 Gastrointestinal No constipation 2012 Gastrointestinal No diarrhea 01/22/2013 Gastrointestinal No nausea 01/22/2013 Gastrointestinal No vomiting 01/22/2013 Genitourinary/Nephrology No dysuria 01/22 Musculoskeletal joint complaint 2012 Dermatologic No rash 01/22/2013 Dermatologic No sores 01/22/2013 Psychiatric No anxiety 01/22/2013 Psychiatric No depression 01/22/2013 Constitutional No recent illness 2012 Constitutional No anorexia 10/02/2012 Constitutional No night sweats 2012 Constitutional No chills 10/02/2012 Constitutional No diaphoresis 10/02/2012 Constitutional No fatigue 10/02/2012 Constitutional No fever 10/02/2012 Constitutional No insomnia 10/02/2012 Constitutional No malaise 10/02/2012 Neurologic No alteration of consciousness 10/02/2012 Neurologic No dizziness 10/02/2012 Neurologic No ataxia 10/02/2012 Neurologic No paresthesia 10/02/2012 Neurologic No weakness 10/02/2012 Neurologic No vertigo 10/02/2012 Neurologic No syncope 10/02/2012 Neurologic No spasms/spasticity 2012 Constitutional recent illness 08/06/2012 Constitutional No anorexia 08/06/2012 Constitutional No night sweats 2012 Constitutional No chills 08/06/2012 Constitutional No diaphoresis 08/06/2012 Constitutional No fatigue 08/06/2012 Constitutional No fever 08/06/2012 Constitutional No insomnia 08/06/2012 Eyes No eye discharge 08/06/2012 Eyes No eye erythema 08/06/2012 Ears/Nose/Throat/Neck No dizziness 2012 Ears/Nose/Throat/Neck nasal allergies 02/2013 Ears/Nose/Throat/Neck No sore throat 02/2013 Cardiovascular No chest pain/pressure 02/2013 Gastrointestinal No vomiting 08/06/2012 Gastrointestinal No nausea 08/06/2012 Gastrointestinal No constipation 2012 Gastrointestinal No diarrhea 08/06/2012 Dermatologic No sores 08/06/2012 Dermatologic No rash 08/06/2012 Constitutional No recent illness 2011 Constitutional No chills 07/10/2012 Constitutional No fatigue 07/10/2012 Constitutional No fever 07/10/2012 Constitutional No insomnia 07/10/2012 Constitutional No malaise 07/10/2012 Respiratory No chest tightness 2011 Respiratory No cigarette smoking 2011 Respiratory No cough 07/10/2012 Respiratory No dyspnea 07/10/2012 Respiratory No pedal edema 07/10/2012 Respiratory No snoring 07/10/2012 Respiratory No wheezing 07/10/2012 Psychiatric depression 07/10/2012 Constitutional No recent illness 2011 Constitutional No anorexia 07/04/2012 Constitutional No night sweats 2011 Constitutional No chills 07/04/2012 Constitutional No diaphoresis 07/04/2012 Constitutional No fatigue 07/04/2012 Constitutional No fever 07/04/2012 Constitutional No insomnia 07/04/2012 Constitutional No malaise 07/04/2012 Eyes No eye discharge 07/04/2012 Eyes No eye erythema 07/04/2012 Ears/Nose/Throat/Neck No dizziness 2011 Ears/Nose/Throat/Neck No headache 2011 Respiratory No productive sputum 2011 Respiratory No chest congestion 2011 Respiratory No cough 07/04/2012 Gastrointestinal No abdominal pain 2011 Gastrointestinal No constipation 2011 Gastrointestinal No diarrhea 07/04/2012 Gastrointestinal No nausea 07/04/2012 Gastrointestinal No vomiting 07/04/2012 Genitourinary/Nephrology No dysuria 07/04 Musculoskeletal joint complaint 2011 Dermatologic No rash 07/04/2012 Dermatologic No sores 07/04/2012 Psychiatric No anxiety 07/04/2012 Psychiatric No depression 07/04/2012 Constitutional No recent illness 2011 Constitutional No anorexia 05/22/2012 Constitutional No night sweats 2011 Constitutional No chills 05/22/2012 Constitutional No diaphoresis 05/22/2012 Constitutional No fatigue 05/22/2012 Constitutional No fever 05/22/2012 Constitutional No insomnia 05/22/2012 Constitutional No malaise 05/22/2012 Eyes No eye discharge 05/22/2012 Eyes No eye erythema 05/22/2012 Ears/Nose/Throat/Neck No dizziness 2011 Ears/Nose/Throat/Neck No headache 2011 Respiratory No productive sputum 2011 Respiratory No chest congestion 2011 Respiratory No cough 05/22/2012 Gastrointestinal No abdominal pain 2011 Gastrointestinal No constipation 2011 Gastrointestinal No diarrhea 05/22/2012 Gastrointestinal No nausea 05/22/2012 Gastrointestinal No vomiting 05/22/2012 Genitourinary/Nephrology No dysuria 05/22 Dermatologic No rash 05/22/2012 Dermatologic No sores 05/22/2012 Musculoskeletal joint complaint 2011 Constitutional No recent illness 2011 Constitutional No anorexia 04/22/2012 Constitutional No night sweats 2011 Constitutional No chills 04/22/2012 Constitutional No diaphoresis 04/22/2012 Constitutional No fatigue 04/22/2012 Constitutional No fever 04/22/2012 Constitutional No insomnia 04/22/2012 Constitutional No malaise 04/22/2012 Eyes No eye discharge 04/22/2012 Eyes No eye erythema 04/22/2012 Ears/Nose/Throat/Neck No dizziness 2011 Ears/Nose/Throat/Neck No headache 2011 Ears/Nose/Throat/Neck No nasal discharge 04/22/2012 Ears/Nose/Throat/Neck No otalgia 2011 Gastrointestinal No abdominal pain 2011 Gastrointestinal No diarrhea 04/22/2012 Gastrointestinal No constipation 2011 Gastrointestinal No nausea 04/22/2012 Gastrointestinal No vomiting 04/22/2012 Genitourinary/Nephrology No dysuria 04/22 Dermatologic No rash 04/22/2012 Dermatologic No sores 04/22/2012 Neurologic No alteration of consciousness 04/22/2012 Respiratory No dyspnea 12/28/2011 Constitutional No recent illness 2011 Constitutional No chills 12/28/2011 Constitutional No fatigue 12/28/2011 Constitutional No fever 12/28/2011 Cardiovascular No chest pain/pressure Respiratory No chest congestion 2011 Respiratory No chest tightness 2011 Respiratory No cough 12/28/2011 Gastrointestinal No abdominal pain 2011 Gastrointestinal No nausea 12/28/2011 Gastrointestinal No vomiting 12/28/2011 Genitourinary/Nephrology No dysuria 12/27 Musculoskeletal No swelling 12/28/2011 Musculoskeletal back pain 12/28/2011 Musculoskeletal sciatica 12/28/2011 Constitutional No anorexia 12/20/2011 Constitutional No chills 12/20/2011 Ears/Nose/Throat/Neck No dizziness 2011 Ears/Nose/Throat/Neck No dysphagia 2011 Cardiovascular No dyspnea 12/20/2011 Cardiovascular No edema 12/20/2011 Cardiovascular No fatigue 12/20/2011 Cardiovascular hypertension 12/20/2011 Respiratory No chest congestion 2011 Respiratory No chest tightness 2011 Respiratory No cough 12/20/2011 Gastrointestinal No anorexia 12/20/2011 Gastrointestinal No constipation 2011 Musculoskeletal arthralgia(s) 12/20/2011 Musculoskeletal joint complaint 2011 Dermatologic No rash 12/20/2011 Dermatologic No sores 12/20/2011 Neurologic No ataxia 12/20/2011 Neurologic No dizziness 12/20/2011 Neurologic No headache 12/20/2011 Psychiatric No anxiety 12/20/2011 Psychiatric No depression 12/20/2011 Constitutional No chills 08/23/2011 Constitutional No fever 08/23/2011 Ears/Nose/Throat/Neck No dizziness 2011 Ears/Nose/Throat/Neck No headache 2011 Eyes No vision change 08/23/2011 Cardiovascular No chest pain/pressure Cardiovascular No palpitations 2011 Gastrointestinal No nausea 08/23/2011 Gastrointestinal No vomiting 08/23/2011 Gastrointestinal No diarrhea 08/23/2011 Gastrointestinal No constipation 2011 Psychiatric No anxiety 08/23/2011 Psychiatric No depression 08/23/2011 Musculoskeletal back pain 08/23/2011 Musculoskeletal arthralgia(s) 08/23/2011 Musculoskeletal muscle weakness 2011 Gastrointestinal No nausea 05/23/2011 Gastrointestinal No vomiting 05/23/2011 Gastrointestinal No abdominal pain 2010 Musculoskeletal back pain 05/23/2011 Musculoskeletal sciatica 05/23/2011 Musculoskeletal No swelling 05/23/2011 Genitourinary/Nephrology No dysuria 05/23 Constitutional No recent illness 2010 Constitutional No chills 05/23/2011 Constitutional No fatigue 05/23/2011 Constitutional No fever 05/23/2011 Cardiovascular No chest pain/pressure Respiratory No chest congestion 2010 Respiratory No chest tightness 2010 Respiratory No cough 05/23/2011 Constitutional No anorexia 04/26/2011 Constitutional No chills 04/26/2011 Ears/Nose/Throat/Neck No dizziness 2010 Ears/Nose/Throat/Neck No dysphagia 2010 Cardiovascular No dyspnea 04/26/2011 Cardiovascular No edema 04/26/2011 Cardiovascular No fatigue 04/26/2011 Respiratory No chest congestion 2010 Respiratory No chest tightness 2010 Respiratory No cough 04/26/2011 Gastrointestinal No anorexia 04/26/2011 Gastrointestinal No constipation 2010 Gastrointestinal diarrhea 04/26/2011 Musculoskeletal arthralgia(s) 04/26/2011 Musculoskeletal joint complaint 2010 Dermatologic No rash 04/26/2011 Dermatologic No sores 04/26/2011 Neurologic No ataxia 04/26/2011 Neurologic No dizziness 04/26/2011 Neurologic No headache 04/26/2011 Psychiatric No anxiety 04/26/2011 Psychiatric No depression 04/26/2011 Cardiovascular hypertension 04/26/2011 Physical Exam Exam Name System Name Item Name Status Result Effective Dates Notes Full Exam - Orthopedics Constitutional general appearance Overall: well nourished 05/29/2018 None Full Exam - Orthopedics Constitutional general appearance Overall: well developed 05/29/2018 None Full Exam - Orthopedics Constitutional general appearance Overall: in no acute distress 05/29/2018 None Full Exam - Orthopedics Eyes conjunctiva/ eyelids Overall: conjunctiva clear 05/29/2018 None Full Exam - Orthopedics Eyes conjunctiva/ eyelids Overall: eyelids normal 05/29/2018 None Full Exam - Orthopedics Ears/Nose/Throat lips/teeth/gingiva Overall: benign lips 05/29/2018 None Full Exam - Orthopedics Ears/Nose/Throat oral cavity/pharynx/larynx Overall: oral mucosa clear 05/29/2018 None Full Exam - Orthopedics Respiratory respiratory effort/rhythm Overall: no retractions 05/29/2018 None Full Exam - Orthopedics Respiratory respiratory effort/rhythm Overall: normal rate 05/29/2018 None Full Exam - Orthopedics Psychiatric orientation/consciousness Overall: oriented to person, place and time 05/29/2018 None Full Exam - Orthopedics Psychiatric mood and affect Overall: normal mood and affect 05/29/2018 None Full Exam - Orthopedics Psychiatric appearance Overall: well-groomed, good eye contact 05/29/2018 None Full Exam - Orthopedics MS: head/neck insp & palp - H/N Overall: head atraumatic 05/29/2018 None Full Exam - Orthopedics MS: spine/rib/pelvis insp & palp - S/R/P Sacroiliac palpation: right sacroiliac joint tenderness 05/29/2018 None Full Exam - General 1994 Constitutional general appearance Overall: well developed 05/07/2018 None Full Exam - General 1994 Constitutional general appearance Overall: in no acute distress 05/07/2018 None Full Exam - General 1994 Constitutional general appearance Overall: well nourished 05/07/2018 None Full Exam - General 1994 Eyes pupils and irises Overall: pupils equal, round, reactive to light and accomodation 05/07/2018 None Full Exam - General 1994 Ears/Nose/Throat otoscopic exam Overall: external auditory canals clear 05/07/2018 None Full Exam - General 1994 Ears/Nose/Throat otoscopic exam Overall: tympanic membranes clear 05/07/2018 None Full Exam - General 1994 Ears/Nose/Throat oral cavity/pharynx/larynx Overall: oral mucosa clear 05/07/2018 None Full Exam - General 1994 Ears/Nose/Throat oral cavity/pharynx/larynx Overall: oropharyngeal mucosa clear 05/07/2018 None Full Exam - General 1994 Ears/Nose/Throat oral cavity/pharynx/larynx Overall: no masses 05/07/2018 None Full Exam - General 1994 Respiratory auscultation Overall: breath sounds clear bilaterally 05/07/2018 None Full Exam - General 1994 Respiratory respiratory effort/rhythm Overall: no retractions 05/07/2018 None Full Exam - General 1994 Respiratory respiratory effort/rhythm Overall: normal rate 05/07/2018 None Full Exam - General 1994 Cardiovascular auscultation of heart Overall: regular rate 05/07/2018 None Full Exam - General 1994 Cardiovascular auscultation of heart Overall: normal heart sounds 05/07/2018 None Full Exam - General 1994 Abdomen abdominal exam Overall: no tenderness 05/07/2018 None Full Exam - General 1994 Abdomen abdominal exam Overall: normal bowel sounds 05/07/2018 None Full Exam - General 1994 Musculoskeletal head and neck Overall: head atraumatic 05/07/2018 None Full Exam - General 1994 Musculoskeletal head and neck Overall: cervical spine benign 05/07/2018 None Full Exam - General 1994 Neurologic gait Overall: no ataxia, no unsteadiness 05/07/2018 None Full Exam - General 1994 Psychiatric orientation/consciousness Overall: oriented to person, place and time 05/07/2018 None Full Exam - General 1994 Psychiatric mood and affect Overall: normal mood and affect 05/07/2018 None Full Exam - General 1994 Constitutional general appearance Overall: well developed 01/29/2018 None Full Exam - General 1994 Constitutional general appearance Overall: in no acute distress 01/29/2018 None Full Exam - General 1994 Constitutional general appearance Overall: well nourished 01/29/2018 None Full Exam - General 1994 Eyes pupils and irises Overall: pupils equal, round, reactive to light and accomodation 01/29/2018 None Full Exam - General 1994 Ears/Nose/Throat otoscopic exam Overall: external auditory canals clear 01/29/2018 None Full Exam - General 1994 Ears/Nose/Throat otoscopic exam Overall: tympanic membranes clear 01/29/2018 None Full Exam - General 1994 Ears/Nose/Throat oral cavity/pharynx/larynx Overall: oral mucosa clear 01/29/2018 None Full Exam - General 1994 Ears/Nose/Throat oral cavity/pharynx/larynx Overall: oropharyngeal mucosa clear 01/29/2018 None Full Exam - General 1994 Ears/Nose/Throat oral cavity/pharynx/larynx Overall: no masses 01/29/2018 None Full Exam - General 1994 Respiratory auscultation Overall: breath sounds clear bilaterally 01/29/2018 None Full Exam - General 1994 Respiratory respiratory effort/rhythm Overall: no retractions 01/29/2018 None Full Exam - General 1994 Respiratory respiratory effort/rhythm Overall: normal rate 01/29/2018 None Full Exam - General 1994 Cardiovascular auscultation of heart Overall: regular rate 01/29/2018 None Full Exam - General 1994 Cardiovascular auscultation of heart Overall: normal heart sounds 01/29/2018 None Full Exam - General 1994 Abdomen abdominal exam Overall: no tenderness 01/29/2018 None Full Exam - General 1994 Abdomen abdominal exam Overall: normal bowel sounds 01/29/2018 None Full Exam - General 1994 Musculoskeletal head and neck Overall: head atraumatic 01/29/2018 None Full Exam - General 1994 Musculoskeletal head and neck Overall: cervical spine benign 01/29/2018 None Full Exam - General 1994 Integument inspection of skin Location: left leg 01/29/2018 left knee Full Exam - General 1994 Neurologic gait Overall: no ataxia, no unsteadiness 01/29/2018 None Full Exam - General 1994 Psychiatric orientation/consciousness Overall: oriented to person, place and time 01/29/2018 None Full Exam - General 1994 Psychiatric mood and affect Overall: normal mood and affect 01/29/2018 None Full Exam - General 1994 Constitutional general appearance Evidence of Distress: tearful 01/29/2018 None Full Exam - General 1994 Constitutional general appearance Overall: well developed 01/01/2018 None Full Exam - General 1994 Constitutional general appearance Overall: in no acute distress 01/01/2018 None Full Exam - General 1994 Constitutional general appearance Overall: well nourished 01/01/2018 None Full Exam - General 1994 Eyes pupils and irises Overall: pupils equal, round, reactive to light and accomodation 01/01/2018 None Full Exam - General 1994 Ears/Nose/Throat otoscopic exam Overall: external auditory canals clear 01/01/2018 None Full Exam - General 1994 Ears/Nose/Throat otoscopic exam Overall: tympanic membranes clear 01/01/2018 None Full Exam - General 1994 Ears/Nose/Throat oral cavity/pharynx/larynx Overall: oral mucosa clear 01/01/2018 None Full Exam - General 1994 Ears/Nose/Throat oral cavity/pharynx/larynx Overall: oropharyngeal mucosa clear 01/01/2018 None Full Exam - General 1994 Ears/Nose/Throat oral cavity/pharynx/larynx Overall: no masses 01/01/2018 None Full Exam - General 1994 Respiratory auscultation Overall: breath sounds clear bilaterally 01/01/2018 None Full Exam - General 1994 Respiratory respiratory effort/rhythm Overall: no retractions 01/01/2018 None Full Exam - General 1994 Respiratory respiratory effort/rhythm Overall: normal rate 01/01/2018 None Full Exam - General 1994 Cardiovascular extremities Edema present: pitting 01/01/2018 None Full Exam - General 1994 Cardiovascular extremities Edema present: severity 1+ - 4 +: 2 01/01/2018 None Full Exam - General 1994 Cardiovascular extremities Edema present: to leg 01/01/2018 None Full Exam - General 1994 Cardiovascular auscultation of heart Overall: regular rate 01/01/2018 None Full Exam - General 1994 Cardiovascular auscultation of heart Overall: normal heart sounds 01/01/2018 None Full Exam - General 1994 Abdomen abdominal exam Overall: no tenderness 01/01/2018 None Full Exam - General 1994 Abdomen abdominal exam Overall: normal bowel sounds 01/01/2018 None Full Exam - General 1994 Musculoskeletal head and neck Overall: head atraumatic 01/01/2018 None Full Exam - General 1994 Musculoskeletal head and neck Overall: cervical spine benign 01/01/2018 None Full Exam - General 1994 Integument inspection of skin Location: left leg 01/01/2018 left knee Full Exam - General 1994 Neurologic gait Overall: no ataxia, no unsteadiness 01/01/2018 None Full Exam - General 1994 Psychiatric orientation/consciousness Overall: oriented to person, place and time 01/01/2018 None Full Exam - General 1994 Psychiatric mood and affect Overall: normal mood and affect 01/01/2018 None Full Exam - ENT Constitutional general appearance Overall: well nourished 12/27/2017 None Full Exam - ENT Constitutional general appearance Overall: well developed 12/27/2017 None Full Exam - ENT Constitutional general appearance Evidence of Distress: tearful 12/27/2017 None Full Exam - ENT Ears/Nose/Throat oropharynx Oral mucosa: aphthous ulcer 12/27/2017 None Full Exam - ENT Ears/Nose/Throat oropharynx Oral mucosa: induration 12/27/2017 on gum-line and roof of mouth Full Exam - ENT Respiratory auscultation Overall: breath sounds clear bilaterally 12/27/2017 None Full Exam - ENT Cardiovascular auscultation of heart Overall: regular rate 12/27/2017 None Full Exam - ENT Lymphatic palpation of lymph nodes Overall: shotty lymphadenopathy 12/27/2017 None Full Exam - ENT Neurologic mood and affect Overall: normal mood 12/27/2017 None Full Exam - ENT Neurologic mood and affect Overall: normal affect 12/27/2017 None Full Exam - General 1994 Constitutional general appearance Overall: well developed 12/18/2017 None Full Exam - General 1994 Constitutional general appearance Overall: in no acute distress 12/18/2017 None Full Exam - General 1994 Constitutional general appearance Overall: well nourished 12/18/2017 None Full Exam - General 1994 Eyes pupils and irises Overall: pupils equal, round, reactive to light and accomodation 12/18/2017 None Full Exam - General 1994 Ears/Nose/Throat otoscopic exam Overall: external auditory canals clear 12/18/2017 None Full Exam - General 1994 Ears/Nose/Throat otoscopic exam Overall: tympanic membranes clear 12/18/2017 None Full Exam - General 1994 Ears/Nose/Throat oral cavity/pharynx/larynx Overall: oral mucosa clear 12/18/2017 None Full Exam - General 1994 Ears/Nose/Throat oral cavity/pharynx/larynx Overall: oropharyngeal mucosa clear 12/18/2017 None Full Exam - General 1994 Ears/Nose/Throat oral cavity/pharynx/larynx Overall: no masses 12/18/2017 None Full Exam - General 1994 Respiratory auscultation Overall: breath sounds clear bilaterally 12/18/2017 None Full Exam - General 1994 Respiratory respiratory effort/rhythm Overall: no retractions 12/18/2017 None Full Exam - General 1994 Respiratory respiratory effort/rhythm Overall: normal rate 12/18/2017 None Full Exam - General 1994 Cardiovascular extremities Edema present: pitting 12/18/2017 None Full Exam - General 1994 Cardiovascular extremities Edema present: severity 1+ - 4 +: 2 12/18/2017 None Full Exam - General 1994 Cardiovascular extremities Edema present: to leg 12/18/2017 None Full Exam - General 1994 Cardiovascular auscultation of heart Overall: regular rate 12/18/2017 None Full Exam - General 1994 Cardiovascular auscultation of heart Overall: normal heart sounds 12/18/2017 None Full Exam - General 1994 Abdomen abdominal exam Overall: no tenderness 12/18/2017 None Full Exam - General 1994 Abdomen abdominal exam Overall: normal bowel sounds 12/18/2017 None Full Exam - General 1994 Musculoskeletal head and neck Overall: head atraumatic 12/18/2017 None Full Exam - General 1994 Musculoskeletal head and neck Overall: cervical spine benign 12/18/2017 None Full Exam - General 1994 Neurologic gait Overall: no ataxia, no unsteadiness 12/18/2017 None Full Exam - General 1994 Psychiatric orientation/consciousness Overall: oriented to person, place and time 12/18/2017 None Full Exam - General 1994 Psychiatric mood and affect Overall: normal mood and affect 12/18/2017 None Full Exam - General 1994 Integument inspection of skin Location: left leg 12/18/2017 left knee Full Exam - Orthopedics Constitutional general appearance Overall: well nourished 12/13/2017 None Full Exam - Orthopedics Constitutional general appearance Overall: well developed 12/13/2017 None Full Exam - Orthopedics Constitutional general appearance Overall: in no acute distress 12/13/2017 None Full Exam - Orthopedics Eyes conjunctiva/ eyelids Overall: conjunctiva clear 12/13/2017 None Full Exam - Orthopedics Eyes conjunctiva/ eyelids Overall: eyelids normal 12/13/2017 None Full Exam - Orthopedics Ears/Nose/Throat lips/teeth/gingiva Overall: benign lips 12/13/2017 None Full Exam - Orthopedics Ears/Nose/Throat oral cavity/pharynx/larynx Overall: oral mucosa clear 12/13/2017 None Full Exam - Orthopedics Respiratory respiratory effort/rhythm Overall: no retractions 12/13/2017 None Full Exam - Orthopedics Respiratory respiratory effort/rhythm Overall: normal rate 12/13/2017 None Full Exam - Orthopedics Psychiatric orientation/consciousness Overall: oriented to person, place and time 12/13/2017 None Full Exam - Orthopedics Psychiatric mood and affect Overall: normal mood and affect 12/13/2017 None Full Exam - Orthopedics Psychiatric appearance Overall: well-groomed, good eye contact 12/13/2017 None Full Exam - Orthopedics MS: head/neck insp & palp - H/N Overall: head atraumatic 12/13/2017 None Full Exam - Orthopedics MS: left lower extremity insp & palp - LLE Knee: joint swelling 12/13/2017 None Full Exam - Orthopedics MS: left lower extremity insp & palp - LLE Knee: joint tenderness 12/13/2017 None Full Exam - Orthopedics MS: left lower extremity range of motion - LLE Knee: pain with flexion 12/13/2017 None Full Exam - Orthopedics MS: left lower extremity range of motion - LLE Knee: pain with extension 12/13/2017 None Full Exam - General 1994 Constitutional general appearance Overall: well developed 06/18/2017 None Full Exam - General 1994 Constitutional general appearance Overall: in no acute distress 06/18/2017 None Full Exam - General 1994 Constitutional general appearance Overall: well nourished 06/18/2017 None Full Exam - General 1994 Eyes pupils and irises Overall: pupils equal, round, reactive to light and accomodation 06/18/2017 None Full Exam - General 1994 Ears/Nose/Throat oral cavity/pharynx/larynx Overall: oral mucosa clear 06/18/2017 None Full Exam - General 1994 Ears/Nose/Throat oral cavity/pharynx/larynx Overall: oropharyngeal mucosa clear 06/18/2017 None Full Exam - General 1994 Ears/Nose/Throat oral cavity/pharynx/larynx Overall: no masses 06/18/2017 None Full Exam - General 1994 Respiratory auscultation Overall: breath sounds clear bilaterally 06/18/2017 None Full Exam - General 1994 Respiratory respiratory effort/rhythm Overall: no retractions 06/18/2017 None Full Exam - General 1994 Respiratory respiratory effort/rhythm Overall: normal rate 06/18/2017 None Full Exam - General 1994 Cardiovascular extremities Overall: no clubbing 06/18/2017 None Full Exam - General 1994 Cardiovascular auscultation of heart Overall: regular rate 06/18/2017 None Full Exam - General 1994 Cardiovascular auscultation of heart Overall: normal heart sounds 06/18/2017 None Full Exam - General 1994 Cardiovascular auscultation of heart Overall: no murmurs 06/18/2017 None Full Exam - General 1994 Abdomen abdominal exam Overall: no tenderness 06/18/2017 None Full Exam - General 1994 Abdomen abdominal exam Overall: normal bowel sounds 06/18/2017 None Full Exam - General 1994 Neurologic cranial nerves Overall: crainial nerves 2 - 12 grossly intact 06/18/2017 None Full Exam - General 1994 Psychiatric orientation/consciousness Overall: oriented to person, place and time 06/18/2017 None Full Exam - General 1994 Psychiatric mood and affect Overall: normal mood and affect 06/18/2017 None Full Exam - General 1994 Psychiatric mood and affect Mood: happy 06/18/2017 None Full Exam - General 1994 Musculoskeletal head and neck Overall: cervical spine benign 06/18/2017 None Full Exam - General 1994 Ears/Nose/Throat otoscopic exam Tympanic membrane: air- fluid level 06/18/2017 None Full Exam - General 1994 Constitutional general appearance Overall: well nourished 06/07/2017 None Full Exam - General 1994 Constitutional general appearance Overall: well developed 06/07/2017 None Full Exam - General 1994 Constitutional general appearance Overall: in no acute distress 06/07/2017 None Full Exam - General 1994 Eyes pupils and irises Overall: pupils equal, round, reactive to light and accomodation 06/07/2017 None Full Exam - General 1994 Ears/Nose/Throat oral cavity/pharynx/larynx Overall: oropharyngeal mucosa clear 06/07/2017 None Full Exam - General 1994 Ears/Nose/Throat oral cavity/pharynx/larynx Overall: no masses 06/07/2017 None Full Exam - General 1994 Ears/Nose/Throat oral cavity/pharynx/larynx Overall: oral mucosa clear 06/07/2017 None Full Exam - General 1994 Respiratory auscultation Overall: breath sounds clear bilaterally 06/07/2017 None Full Exam - General 1994 Respiratory respiratory effort/rhythm Overall: normal rate 06/07/2017 None Full Exam - General 1994 Respiratory respiratory effort/rhythm Overall: no retractions 06/07/2017 None Full Exam - General 1994 Cardiovascular auscultation of heart Overall: regular rate 06/07/2017 None Full Exam - General 1994 Cardiovascular auscultation of heart Overall: normal heart sounds 06/07/2017 None Full Exam - General 1994 Cardiovascular auscultation of heart Overall: no murmurs 06/07/2017 None Full Exam - General 1994 Cardiovascular extremities Overall: no clubbing 06/07/2017 None Full Exam - General 1994 Abdomen abdominal exam Overall: no tenderness 06/07/2017 None Full Exam - General 1994 Abdomen abdominal exam Overall: normal bowel sounds 06/07/2017 None Full Exam - General 1994 Psychiatric orientation/consciousness Overall: oriented to person, place and time 06/07/2017 None Full Exam - General 1994 Psychiatric mood and affect Mood: happy 06/07/2017 None Full Exam - General 1994 Psychiatric mood and affect Overall: normal mood and affect 06/07/2017 None Full Exam - General 1994 Neurologic cranial nerves Overall: crainial nerves 2 - 12 grossly intact 06/07/2017 None Full Exam - General 1994 Integument inspection of skin Pigmentation: ecchymosis 06/07/2017 on arms, lower leg on right anteriorly Full Exam - General 1994 Constitutional general appearance Overall: well developed 04/16/2017 None Full Exam - General 1994 Constitutional general appearance Overall: in no acute distress 04/16/2017 None Full Exam - General 1994 Constitutional general appearance Overall: well nourished 04/16/2017 None Full Exam - General 1994 Eyes pupils and irises Overall: pupils equal, round, reactive to light and accomodation 04/16/2017 None Full Exam - General 1994 Ears/Nose/Throat otoscopic exam Overall: external auditory canals clear 04/16/2017 None Full Exam - General 1994 Ears/Nose/Throat otoscopic exam Overall: tympanic membranes clear 04/16/2017 None Full Exam - General 1994 Ears/Nose/Throat oral cavity/pharynx/larynx Overall: oral mucosa clear 04/16/2017 None Full Exam - General 1994 Ears/Nose/Throat oral cavity/pharynx/larynx Overall: oropharyngeal mucosa clear 04/16/2017 None Full Exam - General 1994 Ears/Nose/Throat oral cavity/pharynx/larynx Overall: no masses 04/16/2017 None Full Exam - General 1994 Respiratory auscultation Overall: breath sounds clear bilaterally 04/16/2017 None Full Exam - General 1994 Respiratory respiratory effort/rhythm Overall: no retractions 04/16/2017 None Full Exam - General 1994 Respiratory respiratory effort/rhythm Overall: normal rate 04/16/2017 None Full Exam - General 1994 Cardiovascular extremities Edema present: pitting 04/16/2017 None Full Exam - General 1994 Cardiovascular extremities Edema present: severity 1+ - 4 +: 2 04/16/2017 None Full Exam - General 1994 Cardiovascular extremities Edema present: to leg 04/16/2017 None Full Exam - General 1994 Cardiovascular auscultation of heart Overall: regular rate 04/16/2017 None Full Exam - General 1994 Cardiovascular auscultation of heart Overall: normal heart sounds 04/16/2017 None Full Exam - General 1994 Abdomen abdominal exam Overall: no tenderness 04/16/2017 None Full Exam - General 1994 Abdomen abdominal exam Overall: normal bowel sounds 04/16/2017 None Full Exam - General 1994 Musculoskeletal head and neck Overall: head atraumatic 04/16/2017 None Full Exam - General 1994 Musculoskeletal head and neck Overall: cervical spine benign 04/16/2017 None Full Exam - General 1994 Neurologic gait Overall: no ataxia, no unsteadiness 04/16/2017 None Full Exam - General 1994 Psychiatric orientation/consciousness Overall: oriented to person, place and time 04/16/2017 None Full Exam - General 1994 Psychiatric mood and affect Overall: normal mood and affect 04/16/2017 None Full Exam - General 1994 Constitutional general appearance Overall: well developed 02/23/2017 None Full Exam - General 1994 Constitutional general appearance Overall: well nourished 02/23/2017 None Full Exam - General 1994 Respiratory auscultation Overall: breath sounds clear bilaterally 02/23/2017 None Full Exam - General 1994 Cardiovascular auscultation of heart Overall: regular rate 02/23/2017 None Full Exam - General 1994 Cardiovascular auscultation of heart Overall: normal heart sounds 02/23/2017 None Full Exam - General 1994 Musculoskeletal spine, ribs and pelvis Spine: a normal exam 02/23/2017 None Full Exam - General 1994 Psychiatric orientation/consciousness Overall: oriented to person, place and time 02/23/2017 None Full Exam - General 1994 Musculoskeletal spine, ribs and pelvis Sacroiliac joints: tender right sacroiliac joint 02/23/2017 None Full Exam - General 1994 Constitutional general appearance Overall: well developed 12/26/2016 None Full Exam - General 1994 Constitutional general appearance Overall: in no acute distress 12/26/2016 None Full Exam - General 1994 Constitutional general appearance Overall: well nourished 12/26/2016 None Full Exam - General 1994 Eyes pupils and irises Overall: pupils equal, round, reactive to light and accomodation 12/26/2016 None Full Exam - General 1994 Ears/Nose/Throat otoscopic exam Overall: external auditory canals clear 12/26/2016 None Full Exam - General 1994 Ears/Nose/Throat otoscopic exam Overall: tympanic membranes clear 12/26/2016 None Full Exam - General 1994 Ears/Nose/Throat oral cavity/pharynx/larynx Overall: oral mucosa clear 12/26/2016 None Full Exam - General 1994 Ears/Nose/Throat oral cavity/pharynx/larynx Overall: oropharyngeal mucosa clear 12/26/2016 None Full Exam - General 1994 Ears/Nose/Throat oral cavity/pharynx/larynx Overall: no masses 12/26/2016 None Full Exam - General 1994 Respiratory auscultation Overall: breath sounds clear bilaterally 12/26/2016 None Full Exam - General 1994 Respiratory respiratory effort/rhythm Overall: no retractions 12/26/2016 None Full Exam - General 1994 Respiratory respiratory effort/rhythm Overall: normal rate 12/26/2016 None Full Exam - General 1994 Cardiovascular extremities Edema present: pitting 12/26/2016 None Full Exam - General 1994 Cardiovascular extremities Edema present: severity 1+ - 4 +: 2 12/26/2016 None Full Exam - General 1994 Cardiovascular extremities Edema present: to leg 12/26/2016 None Full Exam - General 1994 Cardiovascular auscultation of heart Overall: regular rate 12/26/2016 None Full Exam - General 1994 Cardiovascular auscultation of heart Overall: normal heart sounds 12/26/2016 None Full Exam - General 1994 Abdomen abdominal exam Overall: no tenderness 12/26/2016 None Full Exam - General 1994 Abdomen abdominal exam Overall: normal bowel sounds 12/26/2016 None Full Exam - General 1994 Musculoskeletal head and neck Overall: head atraumatic 12/26/2016 None Full Exam - General 1994 Musculoskeletal head and neck Overall: cervical spine benign 12/26/2016 None Full Exam - General 1994 Integument inspection of skin Location: buttocks 12/26/2016 irritated granulation tissue noted on right upper buttock Full Exam - General 1994 Neurologic sensation Touch: (specify location of deficit): light touch intact 12/26/2016 None Full Exam - General 1994 Neurologic sensation Touch: (specify location of deficit): vibration decreased on lateral ankles - not intact on great toe bilaterally or medial ankles bilaterally 12/26/2016 None Full Exam - General 1994 Neurologic sensation Touch: (specify location of deficit): point localization two sites unable to identify - rest of foot bilaterally intact on great toe, metatarsals and dorsum of feet 12/26/2016 None Full Exam - General 1994 Neurologic gait Overall: no ataxia, no unsteadiness 12/26/2016 None Full Exam - General 1994 Neurologic cranial nerves Overall: crainial nerves 2 - 12 grossly intact 12/26/2016 None Full Exam - General 1994 Psychiatric orientation/consciousness Overall: oriented to person, place and time 12/26/2016 None Full Exam - General 1994 Psychiatric mood and affect Overall: normal mood and affect 12/26/2016 None Full Exam - ENT Constitutional general appearance Overall: well nourished 09/07/2016 None Full Exam - ENT Constitutional general appearance Overall: well developed 09/07/2016 None Full Exam - ENT Constitutional general appearance Overall: in no acute distress 09/07/2016 None Full Exam - ENT Ears/Nose/Throat otoscopic exam Overall: external auditory canals normal 09/07/2016 None Full Exam - ENT Ears/Nose/Throat otoscopic exam Left tympanic membrane: air -fluid level 09/07/2016 None Full Exam - ENT Ears/Nose/Throat otoscopic exam Right tympanic membrane: air-fluid level 09/07/2016 None Full Exam - ENT Ears/Nose/Throat nasal mucosa, septum, turbinates Drainage: clear 09/07/2016 None Full Exam - ENT Ears/Nose/Throat lips/ teeth/gingiva Overall: benign lips 09/07/2016 None Full Exam - ENT Ears/Nose/Throat oropharynx Overall: oral mucosa clear 09/07/2016 None Full Exam - ENT Ears/Nose/Throat oropharynx Posterior Pharynx: clear post nasal drainage 09/07/2016 None Full Exam - ENT Respiratory inspection Overall: no retractions 09/07/2016 None Full Exam - ENT Respiratory inspection Overall: normal rate 03/2017 None Full Exam - ENT Respiratory auscultation Overall: breath sounds clear bilaterally 09/07/2016 None Full Exam - ENT Cardiovascular auscultation of heart Overall: regular rate 09/07/2016 None Full Exam - ENT Cardiovascular auscultation of heart Overall: normal heart sounds 09/07/2016 None Full Exam - ENT Lymphatic palpation of lymph nodes Overall: anterior cervical chain benign 09/07/2016 None Full Exam - ENT Lymphatic palpation of lymph nodes Overall: posterior cervical chain benign 09/07/2016 None Full Exam - ENT Neurologic mood and affect Overall: normal mood 09/07/2016 None Full Exam - ENT Neurologic mood and affect Overall: normal affect 09/07/2016 None Full Exam - ENT Neurologic orientation Overall: oriented to person, place and time 09/07/2016 None Full Exam - ENT Face and Head palpation Overall: no induration, no tenderness 09/07/2016 None Full Exam - ENT Constitutional general appearance Overall: well nourished 06/12/2016 None Full Exam - ENT Constitutional general appearance Overall: well developed 06/12/2016 None Full Exam - ENT Constitutional general appearance Overall: in no acute distress 06/12/2016 None Full Exam - ENT Ears/Nose/Throat otoscopic exam Overall: external auditory canals normal 06/12/2016 None Full Exam - ENT Ears/Nose/Throat otoscopic exam Right tympanic membrane: air-fluid level 06/12/2016 None Full Exam - ENT Ears/Nose/Throat otoscopic exam Left tympanic membrane: air -fluid level 06/12/2016 None Full Exam - ENT Ears/Nose/Throat nasal mucosa, septum, turbinates Drainage: clear 06/12/2016 None Full Exam - ENT Ears/Nose/Throat lips/ teeth/gingiva Overall: benign lips 06/12/2016 None Full Exam - ENT Ears/Nose/Throat oropharynx Overall: oral mucosa clear 06/12/2016 None Full Exam - ENT Ears/Nose/Throat oropharynx Posterior Pharynx: clear post nasal drainage 06/12/2016 None Full Exam - ENT Respiratory inspection Overall: no retractions 06/12/2016 None Full Exam - ENT Respiratory inspection Overall: normal rate None Full Exam - ENT Respiratory auscultation Overall: breath sounds clear bilaterally 06/12/2016 None Full Exam - ENT Cardiovascular auscultation of heart Overall: regular rate 06/12/2016 None Full Exam - ENT Cardiovascular auscultation of heart Overall: normal heart sounds 06/12/2016 None Full Exam - ENT Lymphatic palpation of lymph nodes Overall: anterior cervical chain benign 06/12/2016 None Full Exam - ENT Lymphatic palpation of lymph nodes Overall: posterior cervical chain benign 06/12/2016 None Full Exam - ENT Neurologic mood and affect Overall: normal mood 06/12/2016 None Full Exam - ENT Neurologic mood and affect Overall: normal affect 06/12/2016 None Full Exam - ENT Neurologic orientation Overall: oriented to person, place and time 06/12/2016 None Full Exam - General 1994 Constitutional general appearance Overall: well developed 05/04/2016 None Full Exam - General 1994 Constitutional general appearance Overall: in no acute distress 05/04/2016 None Full Exam - General 1994 Constitutional general appearance Overall: well nourished 05/04/2016 None Full Exam - General 1994 Eyes pupils and irises Overall: pupils equal, round, reactive to light and accomodation 05/04/2016 None Full Exam - General 1994 Ears/Nose/Throat otoscopic exam Overall: external auditory canals clear 05/04/2016 None Full Exam - General 1994 Ears/Nose/Throat otoscopic exam Overall: tympanic membranes clear 05/04/2016 None Full Exam - General 1994 Ears/Nose/Throat oral cavity/pharynx/larynx Overall: oral mucosa clear 05/04/2016 None Full Exam - General 1994 Ears/Nose/Throat oral cavity/pharynx/larynx Overall: oropharyngeal mucosa clear 05/04/2016 None Full Exam - General 1994 Ears/Nose/Throat oral cavity/pharynx/larynx Overall: no masses 05/04/2016 None Full Exam - General 1994 Respiratory auscultation Overall: breath sounds clear bilaterally 05/04/2016 None Full Exam - General 1994 Respiratory respiratory effort/rhythm Overall: no retractions 05/04/2016 None Full Exam - General 1994 Respiratory respiratory effort/rhythm Overall: normal rate 05/04/2016 None Full Exam - General 1994 Cardiovascular auscultation of heart Overall: regular rate 05/04/2016 None Full Exam - General 1994 Cardiovascular auscultation of heart Overall: normal heart sounds 05/04/2016 None Full Exam - General 1994 Abdomen abdominal exam Overall: no tenderness 05/04/2016 None Full Exam - General 1994 Abdomen abdominal exam Overall: normal bowel sounds 05/04/2016 None Full Exam - General 1994 Musculoskeletal head and neck Overall: head atraumatic 05/04/2016 None Full Exam - General 1994 Musculoskeletal head and neck Overall: cervical spine benign 05/04/2016 None Full Exam - General 1994 Neurologic gait Overall: no ataxia, no unsteadiness 05/04/2016 None Full Exam - General 1994 Neurologic cranial nerves Overall: crainial nerves 2 - 12 grossly intact 05/04/2016 None Full Exam - General 1994 Psychiatric orientation/consciousness Overall: oriented to person, place and time 05/04/2016 None Full Exam - General 1994 Psychiatric mood and affect Overall: normal mood and affect 05/04/2016 None Full Exam - General 1994 Constitutional general appearance Overall: well developed 03/30/2016 None Full Exam - General 1994 Constitutional general appearance Overall: in no acute distress 03/30/2016 None Full Exam - General 1994 Constitutional general appearance Overall: well nourished 03/30/2016 None Full Exam - General 1994 Eyes pupils and irises Overall: pupils equal, round, reactive to light and accomodation 03/30/2016 None Full Exam - General 1994 Ears/Nose/Throat otoscopic exam Overall: external auditory canals clear 03/30/2016 None Full Exam - General 1994 Ears/Nose/Throat otoscopic exam Overall: tympanic membranes clear 03/30/2016 None Full Exam - General 1994 Ears/Nose/Throat oral cavity/pharynx/larynx Overall: oral mucosa clear 03/30/2016 None Full Exam - General 1994 Ears/Nose/Throat oral cavity/pharynx/larynx Overall: oropharyngeal mucosa clear 03/30/2016 None Full Exam - General 1994 Ears/Nose/Throat oral cavity/pharynx/larynx Overall: no masses 03/30/2016 None Full Exam - General 1994 Respiratory auscultation Overall: breath sounds clear bilaterally 03/30/2016 None Full Exam - General 1994 Respiratory respiratory effort/rhythm Overall: no retractions 03/30/2016 None Full Exam - General 1994 Respiratory respiratory effort/rhythm Overall: normal rate 03/30/2016 None Full Exam - General 1994 Cardiovascular extremities Edema present: pitting 03/30/2016 None Full Exam - General 1994 Cardiovascular extremities Edema present: severity 1+ - 4 +: 2 03/30/2016 None Full Exam - General 1994 Cardiovascular extremities Edema present: to leg 03/30/2016 None Full Exam - General 1994 Cardiovascular auscultation of heart Overall: regular rate 03/30/2016 None Full Exam - General 1994 Cardiovascular auscultation of heart Overall: normal heart sounds 03/30/2016 None Full Exam - General 1994 Abdomen abdominal exam Overall: no tenderness 03/30/2016 None Full Exam - General 1994 Abdomen abdominal exam Overall: normal bowel sounds 03/30/2016 None Full Exam - General 1994 Musculoskeletal head and neck Overall: head atraumatic 03/30/2016 None Full Exam - General 1994 Musculoskeletal head and neck Overall: cervical spine benign 03/30/2016 None Full Exam - General 1994 Integument inspection of skin Location: buttocks 03/30/2016 irritated granulation tissue noted on right upper buttock Full Exam - General 1994 Neurologic gait Overall: no ataxia, no unsteadiness 03/30/2016 None Full Exam - General 1994 Neurologic cranial nerves Overall: crainial nerves 2 - 12 grossly intact 03/30/2016 None Full Exam - General 1994 Psychiatric orientation/consciousness Overall: oriented to person, place and time 03/30/2016 None Full Exam - General 1994 Psychiatric mood and affect Overall: normal mood and affect 03/30/2016 None Full Exam - General 1994 Neurologic sensation Touch: (specify location of deficit): light touch intact 03/30/2016 None Full Exam - General 1994 Neurologic sensation Touch: (specify location of deficit): vibration decreased on lateral ankles - not intact on great toe bilaterally or medial ankles bilaterally 03/30/2016 None Full Exam - General 1994 Neurologic sensation Touch: (specify location of deficit): point localization two sites unable to identify - rest of foot bilaterally intact on great toe, metatarsals and dorsum of feet 03/30/2016 None Full Exam - General 1994 Constitutional general appearance Overall: well developed 11/30/2015 None Full Exam - General 1994 Constitutional general appearance Overall: in no acute distress 11/30/2015 None Full Exam - General 1994 Constitutional general appearance Overall: well nourished 11/30/2015 None Full Exam - General 1994 Eyes pupils and irises Overall: pupils equal, round, reactive to light and accomodation 11/30/2015 None Full Exam - General 1994 Ears/Nose/Throat otoscopic exam Overall: external auditory canals clear 11/30/2015 None Full Exam - General 1994 Ears/Nose/Throat otoscopic exam Overall: tympanic membranes clear 11/30/2015 None Full Exam - General 1994 Ears/Nose/Throat oral cavity/pharynx/larynx Overall: oral mucosa clear 11/30/2015 None Full Exam - General 1994 Ears/Nose/Throat oral cavity/pharynx/larynx Overall: oropharyngeal mucosa clear 11/30/2015 None Full Exam - General 1994 Ears/Nose/Throat oral cavity/pharynx/larynx Overall: no masses 11/30/2015 None Full Exam - General 1994 Respiratory auscultation Overall: breath sounds clear bilaterally 11/30/2015 None Full Exam - General 1994 Respiratory respiratory effort/rhythm Overall: no retractions 11/30/2015 None Full Exam - General 1994 Respiratory respiratory effort/rhythm Overall: normal rate 11/30/2015 None Full Exam - General 1994 Cardiovascular extremities Edema present: pitting 11/30/2015 None Full Exam - General 1994 Cardiovascular extremities Edema present: severity 1+ - 4 +: 2 11/30/2015 None Full Exam - General 1994 Cardiovascular extremities Edema present: to leg 11/30/2015 None Full Exam - General 1994 Cardiovascular auscultation of heart Overall: regular rate 11/30/2015 None Full Exam - General 1994 Cardiovascular auscultation of heart Overall: normal heart sounds 11/30/2015 None Full Exam - General 1994 Abdomen abdominal exam Overall: no tenderness 11/30/2015 None Full Exam - General 1994 Abdomen abdominal exam Overall: normal bowel sounds 11/30/2015 None Full Exam - General 1994 Musculoskeletal head and neck Overall: head atraumatic 11/30/2015 None Full Exam - General 1994 Musculoskeletal head and neck Overall: cervical spine benign 11/30/2015 None Full Exam - General 1994 Integument inspection of skin Location: buttocks 11/30/2015 irritated granulation tissue noted on right upper buttock Full Exam - General 1994 Neurologic gait Overall: no ataxia, no unsteadiness 11/30/2015 None Full Exam - General 1994 Neurologic cranial nerves Overall: crainial nerves 2 - 12 grossly intact 11/30/2015 None Full Exam - General 1994 Psychiatric orientation/consciousness Overall: oriented to person, place and time 11/30/2015 None Full Exam - General 1994 Psychiatric mood and affect Overall: normal mood and affect 11/30/2015 None Full Exam - ENT Constitutional general appearance Overall: well nourished 09/06/2015 None Full Exam - ENT Constitutional general appearance Overall: well developed 09/06/2015 None Full Exam - ENT Constitutional general appearance Overall: in no acute distress 09/06/2015 None Full Exam - ENT Ears/Nose/Throat otoscopic exam Overall: external auditory canals normal 09/06/2015 None Full Exam - ENT Ears/Nose/Throat otoscopic exam Overall: tympanic membranes normal 09/06/2015 None Full Exam - ENT Face and Head palpation Left maxillary sinus: tender 09/06/2015 None Full Exam - ENT Face and Head palpation Right maxillary sinus: tender 09/06/2015 None Full Exam - ENT Respiratory auscultation Overall: breath sounds clear bilaterally 09/06/2015 None Full Exam - ENT Cardiovascular auscultation of heart Overall: regular rate 09/06/2015 None Full Exam - ENT Cardiovascular auscultation of heart Overall: normal heart sounds 09/06/2015 None Full Exam - ENT Lymphatic palpation of lymph nodes Overall: shotty lymphadenopathy 09/06/2015 None Full Exam - ENT Neurologic orientation Overall: oriented to person, place and time 09/06/2015 None Full Exam - ENT Eyes ocular motility Overall: extraocular movement intact 09/06/2015 erythema right conjunctiva Full Exam - General 1994 Constitutional general appearance Overall: well developed 08/04/2015 None Full Exam - General 1994 Constitutional general appearance Overall: in no acute distress 08/04/2015 None Full Exam - General 1994 Constitutional general appearance Overall: well nourished 08/04/2015 None Full Exam - General 1994 Eyes pupils and irises Overall: pupils equal, round, reactive to light and accomodation 08/04/2015 None Full Exam - General 1994 Ears/Nose/Throat otoscopic exam Overall: external auditory canals clear 08/04/2015 None Full Exam - General 1994 Ears/Nose/Throat otoscopic exam Overall: tympanic membranes clear 08/04/2015 None Full Exam - General 1994 Ears/Nose/Throat oral cavity/pharynx/larynx Overall: oral mucosa clear 08/04/2015 None Full Exam - General 1994 Ears/Nose/Throat oral cavity/pharynx/larynx Overall: oropharyngeal mucosa clear 08/04/2015 None Full Exam - General 1994 Ears/Nose/Throat oral cavity/pharynx/larynx Overall: no masses 08/04/2015 None Full Exam - General 1994 Respiratory auscultation Overall: breath sounds clear bilaterally 08/04/2015 None Full Exam - General 1994 Respiratory respiratory effort/rhythm Overall: no retractions 08/04/2015 None Full Exam - General 1994 Respiratory respiratory effort/rhythm Overall: normal rate 08/04/2015 None Full Exam - General 1994 Cardiovascular auscultation of heart Overall: regular rate 08/04/2015 None Full Exam - General 1994 Cardiovascular auscultation of heart Overall: normal heart sounds 08/04/2015 None Full Exam - General 1994 Abdomen abdominal exam Overall: no tenderness 08/04/2015 None Full Exam - General 1994 Abdomen abdominal exam Overall: normal bowel sounds 08/04/2015 None Full Exam - General 1994 Musculoskeletal head and neck Overall: head atraumatic 08/04/2015 None Full Exam - General 1994 Musculoskeletal head and neck Overall: cervical spine benign 08/04/2015 None Full Exam - General 1994 Neurologic gait Overall: no ataxia, no unsteadiness 08/04/2015 None Full Exam - General 1994 Neurologic cranial nerves Overall: crainial nerves 2 - 12 grossly intact 08/04/2015 None Full Exam - General 1994 Psychiatric orientation/consciousness Overall: oriented to person, place and time 08/04/2015 None Full Exam - General 1994 Psychiatric mood and affect Overall: normal mood and affect 08/04/2015 None Full Exam - General 1994 Musculoskeletal lower extremity Inspection - knee: swelling 08/04/2015 None Full Exam - General 1994 Musculoskeletal lower extremity Palpation - knee: crepitus 08/04/2015 None Full Exam - ENT Constitutional general appearance Overall: well nourished 07/05/2015 None Full Exam - ENT Constitutional general appearance Overall: well developed 07/05/2015 None Full Exam - ENT Constitutional general appearance Overall: in no acute distress 07/05/2015 None Full Exam - ENT Ears/Nose/Throat otoscopic exam Overall: external auditory canals normal 07/05/2015 None Full Exam - ENT Ears/Nose/Throat otoscopic exam Overall: tympanic membranes normal 07/05/2015 None Full Exam - ENT Respiratory auscultation Overall: breath sounds clear bilaterally 07/05/2015 None Full Exam - ENT Cardiovascular auscultation of heart Overall: regular rate 07/05/2015 None Full Exam - ENT Cardiovascular auscultation of heart Overall: normal heart sounds 07/05/2015 None Full Exam - ENT Neurologic orientation Overall: oriented to person, place and time 07/05/2015 None Full Exam - ENT Ears/Nose/Throat oropharynx Posterior Pharynx: edema 07/05/2015 None Full Exam - ENT Face and Head palpation Left maxillary sinus: tender 07/05/2015 None Full Exam - ENT Face and Head palpation Right maxillary sinus: tender 07/05/2015 None Full Exam - ENT Lymphatic palpation of lymph nodes Overall: shotty lymphadenopathy 07/05/2015 None Full Exam - General 1994 Constitutional general appearance Overall: well developed 06/28/2015 None Full Exam - General 1994 Constitutional general appearance Overall: in no acute distress 06/28/2015 None Full Exam - General 1994 Constitutional general appearance Overall: well nourished 06/28/2015 None Full Exam - General 1994 Eyes pupils and irises Overall: pupils equal, round, reactive to light and accomodation 06/28/2015 None Full Exam - General 1994 Ears/Nose/Throat otoscopic exam Overall: external auditory canals clear 06/28/2015 None Full Exam - General 1994 Ears/Nose/Throat otoscopic exam Overall: tympanic membranes clear 06/28/2015 None Full Exam - General 1994 Ears/Nose/Throat oral cavity/pharynx/larynx Overall: oral mucosa clear 06/28/2015 None Full Exam - General 1994 Ears/Nose/Throat oral cavity/pharynx/larynx Overall: oropharyngeal mucosa clear 06/28/2015 None Full Exam - General 1994 Ears/Nose/Throat oral cavity/pharynx/larynx Overall: no masses 06/28/2015 None Full Exam - General 1994 Respiratory auscultation Overall: breath sounds clear bilaterally 06/28/2015 None Full Exam - General 1994 Respiratory respiratory effort/rhythm Overall: no retractions 06/28/2015 None Full Exam - General 1994 Respiratory respiratory effort/rhythm Overall: normal rate 06/28/2015 None Full Exam - General 1994 Cardiovascular extremities Edema present: pitting 06/28/2015 None Full Exam - General 1994 Cardiovascular extremities Edema present: severity 1+ - 4 +: 2 06/28/2015 None Full Exam - General 1994 Cardiovascular extremities Edema present: to leg 06/28/2015 None Full Exam - General 1994 Cardiovascular auscultation of heart Overall: regular rate 06/28/2015 None Full Exam - General 1994 Cardiovascular auscultation of heart Overall: normal heart sounds 06/28/2015 None Full Exam - General 1994 Abdomen abdominal exam Overall: no tenderness 06/28/2015 None Full Exam - General 1994 Abdomen abdominal exam Overall: normal bowel sounds 06/28/2015 None Full Exam - General 1994 Musculoskeletal head and neck Overall: head atraumatic 06/28/2015 None Full Exam - General 1994 Musculoskeletal head and neck Overall: cervical spine benign 06/28/2015 None Full Exam - General 1994 Integument inspection of skin Location: buttocks 06/28/2015 irritated granulation tissue noted on right upper buttock Full Exam - General 1994 Neurologic gait Overall: no ataxia, no unsteadiness 06/28/2015 None Full Exam - General 1994 Neurologic cranial nerves Overall: crainial nerves 2 - 12 grossly intact 06/28/2015 None Full Exam - General 1994 Psychiatric orientation/consciousness Overall: oriented to person, place and time 06/28/2015 None Full Exam - General 1994 Psychiatric mood and affect Overall: normal mood and affect 06/28/2015 None Full Exam - General 1994 Constitutional general appearance Overall: well developed 02/23/2015 None Full Exam - General 1994 Constitutional general appearance Overall: in no acute distress 02/23/2015 None Full Exam - General 1994 Constitutional general appearance Overall: well nourished 02/23/2015 None Full Exam - General 1994 Eyes pupils and irises Overall: pupils equal, round, reactive to light and accomodation 02/23/2015 None Full Exam - General 1994 Ears/Nose/Throat otoscopic exam Overall: external auditory canals clear 02/23/2015 None Full Exam - General 1994 Ears/Nose/Throat otoscopic exam Overall: tympanic membranes clear 02/23/2015 None Full Exam - General 1994 Ears/Nose/Throat oral cavity/pharynx/larynx Overall: oral mucosa clear 02/23/2015 None Full Exam - General 1994 Ears/Nose/Throat oral cavity/pharynx/larynx Overall: oropharyngeal mucosa clear 02/23/2015 None Full Exam - General 1994 Ears/Nose/Throat oral cavity/pharynx/larynx Overall: no masses 02/23/2015 None Full Exam - General 1994 Respiratory auscultation Overall: breath sounds clear bilaterally 02/23/2015 None Full Exam - General 1994 Respiratory respiratory effort/rhythm Overall: no retractions 02/23/2015 None Full Exam - General 1994 Respiratory respiratory effort/rhythm Overall: normal rate 02/23/2015 None Full Exam - General 1994 Cardiovascular extremities Edema present: pitting 02/23/2015 None Full Exam - General 1994 Cardiovascular extremities Edema present: severity 1+ - 4 +: 2 02/23/2015 None Full Exam - General 1994 Cardiovascular extremities Edema present: to leg 02/23/2015 None Full Exam - General 1994 Cardiovascular auscultation of heart Overall: regular rate 02/23/2015 None Full Exam - General 1994 Cardiovascular auscultation of heart Overall: normal heart sounds 02/23/2015 None Full Exam - General 1994 Abdomen abdominal exam Overall: no tenderness 02/23/2015 None Full Exam - General 1994 Abdomen abdominal exam Overall: normal bowel sounds 02/23/2015 None Full Exam - General 1994 Musculoskeletal head and neck Overall: head atraumatic 02/23/2015 None Full Exam - General 1994 Musculoskeletal head and neck Overall: cervical spine benign 02/23/2015 None Full Exam - General 1994 Integument inspection of skin Location: buttocks 02/23/2015 irritated granulation tissue noted on right upper buttock Full Exam - General 1994 Neurologic gait Overall: no ataxia, no unsteadiness 02/23/2015 None Full Exam - General 1994 Neurologic cranial nerves Overall: crainial nerves 2 - 12 grossly intact 02/23/2015 None Full Exam - General 1994 Psychiatric orientation/consciousness Overall: oriented to person, place and time 02/23/2015 None Full Exam - General 1994 Psychiatric mood and affect Overall: normal mood and affect 02/23/2015 None Full Exam - General 1994 Constitutional general appearance Overall: well developed 01/08/2015 None Full Exam - General 1994 Constitutional general appearance Overall: in no acute distress 01/08/2015 None Full Exam - General 1994 Constitutional general appearance Overall: well nourished 01/08/2015 None Full Exam - General 1994 Eyes pupils and irises Overall: pupils equal, round, reactive to light and accomodation 01/08/2015 None Full Exam - General 1994 Ears/Nose/Throat otoscopic exam Overall: external auditory canals clear 01/08/2015 None Full Exam - General 1994 Ears/Nose/Throat otoscopic exam Overall: tympanic membranes clear 01/08/2015 None Full Exam - General 1994 Ears/Nose/Throat oral cavity/pharynx/larynx Overall: oral mucosa clear 01/08/2015 None Full Exam - General 1994 Ears/Nose/Throat oral cavity/pharynx/larynx Overall: oropharyngeal mucosa clear 01/08/2015 None Full Exam - General 1994 Ears/Nose/Throat oral cavity/pharynx/larynx Overall: no masses 01/08/2015 None Full Exam - General 1994 Respiratory auscultation Overall: breath sounds clear bilaterally 01/08/2015 None Full Exam - General 1994 Respiratory respiratory effort/rhythm Overall: no retractions 01/08/2015 None Full Exam - General 1994 Respiratory respiratory effort/rhythm Overall: normal rate 01/08/2015 None Full Exam - General 1994 Cardiovascular extremities Edema present: pitting 01/08/2015 None Full Exam - General 1994 Cardiovascular extremities Edema present: severity 1+ - 4 +: 2 01/08/2015 None Full Exam - General 1994 Cardiovascular extremities Edema present: to leg 01/08/2015 None Full Exam - General 1994 Cardiovascular auscultation of heart Overall: regular rate 01/08/2015 None Full Exam - General 1994 Cardiovascular auscultation of heart Overall: normal heart sounds 01/08/2015 None Full Exam - General 1994 Abdomen abdominal exam Overall: no tenderness 01/08/2015 None Full Exam - General 1994 Abdomen abdominal exam Overall: normal bowel sounds 01/08/2015 None Full Exam - General 1994 Musculoskeletal head and neck Overall: head atraumatic 01/08/2015 None Full Exam - General 1994 Musculoskeletal head and neck Overall: cervical spine benign 01/08/2015 None Full Exam - General 1994 Neurologic gait Overall: no ataxia, no unsteadiness 01/08/2015 None Full Exam - General 1994 Neurologic cranial nerves Overall: crainial nerves 2 - 12 grossly intact 01/08/2015 None Full Exam - General 1994 Psychiatric orientation/consciousness Overall: oriented to person, place and time 01/08/2015 None Full Exam - General 1994 Psychiatric mood and affect Overall: normal mood and affect 01/08/2015 None Full Exam - General 1994 Integument inspection of skin Location: buttocks 01/08/2015 irritated granulation tissue noted on right upper buttock Full Exam - General 1994 Constitutional general appearance Overall: well developed 09/24/2014 None Full Exam - General 1994 Constitutional general appearance Overall: in no acute distress 09/24/2014 None Full Exam - General 1994 Constitutional general appearance Overall: well nourished 09/24/2014 None Full Exam - General 1994 Eyes pupils and irises Overall: pupils equal, round, reactive to light and accomodation 09/24/2014 None Full Exam - General 1994 Ears/Nose/Throat otoscopic exam Overall: external auditory canals clear 09/24/2014 None Full Exam - General 1994 Ears/Nose/Throat otoscopic exam Overall: tympanic membranes clear 09/24/2014 None Full Exam - General 1994 Ears/Nose/Throat oral cavity/pharynx/larynx Overall: oral mucosa clear 09/24/2014 None Full Exam - General 1994 Ears/Nose/Throat oral cavity/pharynx/larynx Overall: oropharyngeal mucosa clear 09/24/2014 None Full Exam - General 1994 Ears/Nose/Throat oral cavity/pharynx/larynx Overall: no masses 09/24/2014 None Full Exam - General 1994 Respiratory auscultation Overall: breath sounds clear bilaterally 09/24/2014 None Full Exam - General 1994 Respiratory respiratory effort/rhythm Overall: no retractions 09/24/2014 None Full Exam - General 1994 Respiratory respiratory effort/rhythm Overall: normal rate 09/24/2014 None Full Exam - General 1994 Cardiovascular extremities Edema present: pitting 09/24/2014 None Full Exam - General 1994 Cardiovascular extremities Edema present: severity 1+ - 4 +: 2 09/24/2014 None Full Exam - General 1994 Cardiovascular extremities Edema present: to leg 09/24/2014 None Full Exam - General 1994 Cardiovascular auscultation of heart Overall: regular rate 09/24/2014 None Full Exam - General 1994 Cardiovascular auscultation of heart Overall: normal heart sounds 09/24/2014 None Full Exam - General 1994 Abdomen abdominal exam Overall: no tenderness 09/24/2014 None Full Exam - General 1994 Abdomen abdominal exam Overall: normal bowel sounds 09/24/2014 None Full Exam - General 1994 Musculoskeletal head and neck Overall: head atraumatic 09/24/2014 None Full Exam - General 1994 Musculoskeletal head and neck Overall: cervical spine benign 09/24/2014 None Full Exam - General 1994 Neurologic gait Overall: no ataxia, no unsteadiness 09/24/2014 None Full Exam - General 1994 Neurologic cranial nerves Overall: crainial nerves 2 - 12 grossly intact 09/24/2014 None Full Exam - General 1994 Psychiatric orientation/consciousness Overall: oriented to person, place and time 09/24/2014 None Full Exam - General 1994 Psychiatric mood and affect Overall: normal mood and affect 09/24/2014 None Full Exam - General 1994 Constitutional general appearance Overall: well nourished 05/11/2014 None Full Exam - General 1994 Constitutional general appearance Overall: well developed 05/11/2014 None Full Exam - General 1994 Respiratory auscultation Overall: breath sounds clear bilaterally 05/11/2014 None Full Exam - General 1994 Cardiovascular auscultation of heart Overall: regular rate 05/11/2014 None Full Exam - General 1994 Cardiovascular auscultation of heart Overall: normal heart sounds 05/11/2014 None Full Exam - General 1994 Musculoskeletal spine, ribs and pelvis Spine: a normal exam 05/11/2014 None Full Exam - General 1994 Psychiatric orientation/consciousness Overall: oriented to person, place and time 05/11/2014 None Full Exam - General 1994 Musculoskeletal spine, ribs and pelvis Sacroiliac joints: tender left sacroiliac joint 05/11/2014 None Full Exam - General 1994 Constitutional general appearance Overall: well developed 05/01/2014 None Full Exam - General 1994 Constitutional general appearance Overall: in no acute distress 05/01/2014 None Full Exam - General 1994 Constitutional general appearance Overall: well nourished 05/01/2014 None Full Exam - General 1994 Eyes pupils and irises Overall: pupils equal, round, reactive to light and accomodation 05/01/2014 None Full Exam - General 1994 Ears/Nose/Throat oral cavity/pharynx/larynx Overall: oral mucosa clear 05/01/2014 None Full Exam - General 1994 Ears/Nose/Throat oral cavity/pharynx/larynx Overall: oropharyngeal mucosa clear 05/01/2014 None Full Exam - General 1994 Ears/Nose/Throat oral cavity/pharynx/larynx Overall: no masses 05/01/2014 None Full Exam - General 1994 Respiratory auscultation Overall: breath sounds clear bilaterally 05/01/2014 None Full Exam - General 1994 Respiratory respiratory effort/rhythm Overall: no retractions 05/01/2014 None Full Exam - General 1994 Respiratory respiratory effort/rhythm Overall: normal rate 05/01/2014 None Full Exam - General 1994 Cardiovascular extremities Edema present: pitting 05/01/2014 None Full Exam - General 1994 Cardiovascular extremities Edema present: severity 1+ - 4 +: 2 05/01/2014 None Full Exam - General 1994 Cardiovascular extremities Edema present: to leg 05/01/2014 None Full Exam - General 1994 Cardiovascular auscultation of heart Overall: regular rate 05/01/2014 None Full Exam - General 1994 Cardiovascular auscultation of heart Overall: normal heart sounds 05/01/2014 None Full Exam - General 1994 Neurologic gait Overall: no ataxia, no unsteadiness 05/01/2014 None Full Exam - General 1994 Neurologic cranial nerves Overall: crainial nerves 2 - 12 grossly intact 05/01/2014 None Full Exam - General 1994 Psychiatric orientation/consciousness Overall: oriented to person, place and time 05/01/2014 None Full Exam - General 1994 Psychiatric mood and affect Overall: normal mood and affect 05/01/2014 None Full Exam - General 1994 Integument inspection of skin Dermatitis: scaling 05/01/2014 None Full Exam - General 1994 Integument inspection of skin Dermatitis: erythema 05/01/2014 right buttock - scabbed, some maceration in middle of the lesion Full Exam - General 1994 Constitutional general appearance Overall: well developed 04/03/2014 None Full Exam - General 1994 Constitutional general appearance Overall: in no acute distress 04/03/2014 None Full Exam - General 1994 Constitutional general appearance Overall: well nourished 04/03/2014 None Full Exam - General 1994 Eyes pupils and irises Overall: pupils equal, round, reactive to light and accomodation 04/03/2014 None Full Exam - General 1994 Ears/Nose/Throat otoscopic exam Overall: external auditory canals clear 04/03/2014 None Full Exam - General 1994 Ears/Nose/Throat otoscopic exam Overall: tympanic membranes clear 04/03/2014 None Full Exam - General 1994 Ears/Nose/Throat oral cavity/pharynx/larynx Overall: oral mucosa clear 04/03/2014 None Full Exam - General 1994 Ears/Nose/Throat oral cavity/pharynx/larynx Overall: oropharyngeal mucosa clear 04/03/2014 None Full Exam - General 1994 Ears/Nose/Throat oral cavity/pharynx/larynx Overall: no masses 04/03/2014 None Full Exam - General 1994 Respiratory auscultation Overall: breath sounds clear bilaterally 04/03/2014 None Full Exam - General 1994 Respiratory respiratory effort/rhythm Overall: no retractions 04/03/2014 None Full Exam - General 1994 Respiratory respiratory effort/rhythm Overall: normal rate 04/03/2014 None Full Exam - General 1994 Cardiovascular extremities Edema present: pitting 04/03/2014 None Full Exam - General 1994 Cardiovascular extremities Edema present: severity 1+ - 4 +: 2 04/03/2014 None Full Exam - General 1994 Cardiovascular extremities Edema present: to leg 04/03/2014 None Full Exam - General 1994 Cardiovascular auscultation of heart Overall: regular rate 04/03/2014 None Full Exam - General 1994 Cardiovascular auscultation of heart Overall: normal heart sounds 04/03/2014 None Full Exam - General 1994 Abdomen abdominal exam Overall: no tenderness 04/03/2014 None Full Exam - General 1994 Abdomen abdominal exam Overall: normal bowel sounds 04/03/2014 None Full Exam - General 1994 Musculoskeletal head and neck Overall: head atraumatic 04/03/2014 None Full Exam - General 1994 Musculoskeletal head and neck Overall: cervical spine benign 04/03/2014 None Full Exam - General 1994 Neurologic gait Overall: no ataxia, no unsteadiness 04/03/2014 None Full Exam - General 1994 Neurologic cranial nerves Overall: crainial nerves 2 - 12 grossly intact 04/03/2014 None Full Exam - General 1994 Psychiatric orientation/consciousness Overall: oriented to person, place and time 04/03/2014 None Full Exam - General 1994 Psychiatric mood and affect Overall: normal mood and affect 04/03/2014 None Full Exam - General 1994 Constitutional general appearance Overall: well developed 11/24/2013 None Full Exam - General 1994 Constitutional general appearance Overall: in no acute distress 11/24/2013 None Full Exam - General 1994 Constitutional general appearance Overall: well nourished 11/24/2013 None Full Exam - General 1994 Eyes pupils and irises Overall: pupils equal, round, reactive to light and accomodation 11/24/2013 None Full Exam - General 1994 Ears/Nose/Throat otoscopic exam Overall: external auditory canals clear 11/24/2013 None Full Exam - General 1994 Ears/Nose/Throat otoscopic exam Overall: tympanic membranes clear 11/24/2013 None Full Exam - General 1994 Ears/Nose/Throat oral cavity/pharynx/larynx Overall: oral mucosa clear 11/24/2013 None Full Exam - General 1994 Ears/Nose/Throat oral cavity/pharynx/larynx Overall: oropharyngeal mucosa clear 11/24/2013 None Full Exam - General 1994 Ears/Nose/Throat oral cavity/pharynx/larynx Overall: no masses 11/24/2013 None Full Exam - General 1994 Respiratory auscultation Overall: breath sounds clear bilaterally 11/24/2013 None Full Exam - General 1994 Respiratory respiratory effort/rhythm Overall: no retractions 11/24/2013 None Full Exam - General 1994 Respiratory respiratory effort/rhythm Overall: normal rate 11/24/2013 None Full Exam - General 1994 Cardiovascular extremities Edema present: pitting 11/24/2013 None Full Exam - General 1994 Cardiovascular extremities Edema present: severity 1+ - 4 +: 2 11/24/2013 None Full Exam - General 1994 Cardiovascular extremities Edema present: to leg 11/24/2013 None Full Exam - General 1994 Cardiovascular auscultation of heart Overall: regular rate 11/24/2013 None Full Exam - General 1994 Cardiovascular auscultation of heart Overall: normal heart sounds 11/24/2013 None Full Exam - General 1994 Abdomen abdominal exam Overall: no tenderness 11/24/2013 None Full Exam - General 1994 Abdomen abdominal exam Overall: normal bowel sounds 11/24/2013 None Full Exam - General 1994 Musculoskeletal head and neck Overall: head atraumatic 11/24/2013 None Full Exam - General 1994 Musculoskeletal head and neck Overall: cervical spine benign 11/24/2013 None Full Exam - General 1994 Neurologic gait Overall: no ataxia, no unsteadiness 11/24/2013 None Full Exam - General 1994 Neurologic cranial nerves Overall: crainial nerves 2 - 12 grossly intact 11/24/2013 None Full Exam - General 1994 Psychiatric orientation/consciousness Overall: oriented to person, place and time 11/24/2013 None Full Exam - General 1994 Psychiatric mood and affect Overall: normal mood and affect 11/24/2013 None Full Exam - General 1994 Constitutional general appearance Overall: well developed 07/28/2013 None Full Exam - General 1994 Constitutional general appearance Overall: in no acute distress 07/28/2013 None Full Exam - General 1994 Constitutional general appearance Overall: well nourished 07/28/2013 None Full Exam - General 1994 Eyes pupils and irises Overall: pupils equal, round, reactive to light and accomodation 07/28/2013 None Full Exam - General 1994 Ears/Nose/Throat otoscopic exam Overall: external auditory canals clear 07/28/2013 None Full Exam - General 1994 Ears/Nose/Throat otoscopic exam Overall: tympanic membranes clear 07/28/2013 None Full Exam - General 1994 Ears/Nose/Throat oral cavity/pharynx/larynx Overall: oral mucosa clear 07/28/2013 None Full Exam - General 1994 Ears/Nose/Throat oral cavity/pharynx/larynx Overall: oropharyngeal mucosa clear 07/28/2013 None Full Exam - General 1994 Ears/Nose/Throat oral cavity/pharynx/larynx Overall: no masses 07/28/2013 None Full Exam - General 1994 Respiratory auscultation Overall: breath sounds clear bilaterally 07/28/2013 None Full Exam - General 1994 Respiratory respiratory effort/rhythm Overall: no retractions 07/28/2013 None Full Exam - General 1994 Respiratory respiratory effort/rhythm Overall: normal rate 07/28/2013 None Full Exam - General 1994 Cardiovascular extremities Edema present: pitting 07/28/2013 None Full Exam - General 1994 Cardiovascular extremities Edema present: severity 1+ - 4 +: 2 07/28/2013 None Full Exam - General 1994 Cardiovascular extremities Edema present: to leg 07/28/2013 None Full Exam - General 1994 Cardiovascular auscultation of heart Overall: regular rate 07/28/2013 None Full Exam - General 1994 Cardiovascular auscultation of heart Overall: normal heart sounds 07/28/2013 None Full Exam - General 1994 Abdomen abdominal exam Overall: no tenderness 07/28/2013 None Full Exam - General 1994 Abdomen abdominal exam Overall: normal bowel sounds 07/28/2013 None Full Exam - General 1994 Musculoskeletal head and neck Overall: head atraumatic 07/28/2013 None Full Exam - General 1994 Musculoskeletal head and neck Overall: cervical spine benign 07/28/2013 None Full Exam - General 1994 Neurologic gait Overall: no ataxia, no unsteadiness 07/28/2013 None Full Exam - General 1994 Neurologic cranial nerves Overall: crainial nerves 2 - 12 grossly intact 07/28/2013 None Full Exam - General 1994 Psychiatric orientation/consciousness Overall: oriented to person, place and time 07/28/2013 None Full Exam - General 1994 Psychiatric mood and affect Overall: normal mood and affect 07/28/2013 None Full Exam - General 1994 Constitutional general appearance Overall: well developed 06/16/2013 None Full Exam - General 1994 Constitutional general appearance Overall: in no acute distress 06/16/2013 None Full Exam - General 1994 Constitutional general appearance Overall: well nourished 06/16/2013 None Full Exam - General 1994 Eyes pupils and irises Overall: pupils equal, round, reactive to light and accomodation 06/16/2013 None Full Exam - General 1994 Ears/Nose/Throat otoscopic exam Overall: external auditory canals clear 06/16/2013 None Full Exam - General 1994 Ears/Nose/Throat otoscopic exam Overall: tympanic membranes clear 06/16/2013 None Full Exam - General 1994 Ears/Nose/Throat oral cavity/pharynx/larynx Overall: oral mucosa clear 06/16/2013 None Full Exam - General 1994 Ears/Nose/Throat oral cavity/pharynx/larynx Overall: oropharyngeal mucosa clear 06/16/2013 None Full Exam - General 1994 Ears/Nose/Throat oral cavity/pharynx/larynx Overall: no masses 06/16/2013 None Full Exam - General 1994 Respiratory auscultation Overall: breath sounds clear bilaterally 06/16/2013 None Full Exam - General 1994 Respiratory respiratory effort/rhythm Overall: no retractions 06/16/2013 None Full Exam - General 1994 Respiratory respiratory effort/rhythm Overall: normal rate 06/16/2013 None Full Exam - General 1994 Cardiovascular extremities Edema present: pitting 06/16/2013 None Full Exam - General 1994 Cardiovascular extremities Edema present: severity 1+ - 4 +: 2 06/16/2013 None Full Exam - General 1994 Cardiovascular extremities Edema present: to leg 06/16/2013 None Full Exam - General 1994 Cardiovascular auscultation of heart Overall: regular rate 06/16/2013 None Full Exam - General 1994 Cardiovascular auscultation of heart Overall: normal heart sounds 06/16/2013 None Full Exam - General 1994 Abdomen abdominal exam Overall: no tenderness 06/16/2013 None Full Exam - General 1994 Abdomen abdominal exam Overall: normal bowel sounds 06/16/2013 None Full Exam - General 1994 Musculoskeletal head and neck Overall: head atraumatic 06/16/2013 None Full Exam - General 1994 Musculoskeletal head and neck Overall: cervical spine benign 06/16/2013 None Full Exam - General 1994 Neurologic gait Overall: no ataxia, no unsteadiness 06/16/2013 None Full Exam - General 1994 Neurologic cranial nerves Overall: crainial nerves 2 - 12 grossly intact 06/16/2013 None Full Exam - General 1994 Psychiatric orientation/consciousness Overall: oriented to person, place and time 06/16/2013 None Full Exam - General 1994 Psychiatric mood and affect Overall: normal mood and affect 06/16/2013 None Full Exam - General 1994 Constitutional general appearance Overall: well developed 01/22/2013 None Full Exam - General 1994 Constitutional general appearance Overall: in no acute distress 01/22/2013 None Full Exam - General 1994 Constitutional general appearance Overall: well nourished 01/22/2013 None Full Exam - General 1994 Eyes pupils and irises Overall: pupils equal, round, reactive to light and accomodation 01/22/2013 None Full Exam - General 1994 Respiratory auscultation Overall: breath sounds clear bilaterally 01/22/2013 None Full Exam - General 1994 Respiratory respiratory effort/rhythm Overall: no retractions 01/22/2013 None Full Exam - General 1994 Respiratory respiratory effort/rhythm Overall: normal rate 01/22/2013 None Full Exam - General 1994 Cardiovascular auscultation of heart Overall: regular rate 01/22/2013 None Full Exam - General 1995 Cardiovascular auscultation of heart Overall: normal heart sounds 01/22/2013 None Full Exam - General 1995 Abdomen abdominal exam Overall: no tenderness 01/22/2013 None Full Exam - General 1995 Abdomen abdominal exam Overall: normal bowel sounds 01/22/2013 None Full Exam - General 1995 Musculoskeletal head and neck Overall: head atraumatic 01/22/2013 None Full Exam - General 1995 Musculoskeletal head and neck Overall: cervical spine benign 01/22/2013 None Full Exam - General 1995 Neurologic gait Overall: no ataxia, no unsteadiness 01/22/2013 None Full Exam - General 1995 Neurologic cranial nerves Overall: crainial nerves 2 - 12 grossly intact 01/22/2013 None Full Exam - General 1995 Psychiatric orientation/consciousness Overall: oriented to person, place and time 01/22/2013 None Full Exam - General 1994 Psychiatric mood and affect Overall: normal mood and affect 01/22/2013 None Full Exam - General 1994 Cardiovascular extremities Edema present: pitting 01/22/2013 None Full Exam - General 1994 Cardiovascular extremities Edema present: severity 1+ - 4 +: 2 01/22/2013 None Full Exam - General 1994 Cardiovascular extremities Edema present: to leg 01/22/2013 None Full Exam - General 1995 Ears/Nose/Throat oral cavity/pharynx/larynx Overall: oropharyngeal mucosa clear 01/22/2013 None Full Exam - General 1995 Ears/Nose/Throat oral cavity/pharynx/larynx Overall: no masses 01/22/2013 None Full Exam - General 1995 Ears/Nose/Throat oral cavity/pharynx/larynx Overall: oral mucosa clear 01/22/2013 None Full Exam - General 1994 Ears/Nose/Throat otoscopic exam Overall: tympanic membranes clear 01/22/2013 None Full Exam - General 1995 Ears/Nose/Throat otoscopic exam Overall: external auditory canals clear 01/22/2013 None Full Exam - General 1994 Constitutional general appearance Overall: well nourished 10/02/2012 None Full Exam - General 1994 Constitutional general appearance Overall: well developed 10/02/2012 None Full Exam - General 1994 Respiratory auscultation Overall: breath sounds clear bilaterally 10/02/2012 None Full Exam - General 1994 Cardiovascular auscultation of heart Overall: regular rate 10/02/2012 None Full Exam - General 1994 Cardiovascular auscultation of heart Overall: normal heart sounds 10/02/2012 None Full Exam - General 1994 Musculoskeletal spine, ribs and pelvis Spine: a normal exam 10/02/2012 None Full Exam - General 1994 Musculoskeletal spine, ribs and pelvis Sacroiliac joints: tender right sacroiliac joint 10/02/2012 None Full Exam - General 1994 Psychiatric orientation/consciousness Overall: oriented to person, place and time 10/02/2012 None Full Exam - General 1994 Musculoskeletal spine, ribs and pelvis Sacroiliac joints: tender left sacroiliac joint 10/02/2012 None Full Exam - ENT Constitutional general appearance Overall: well nourished 08/06/2012 None Full Exam - ENT Constitutional general appearance Overall: well developed 08/06/2012 None Full Exam - ENT Constitutional general appearance Overall: in no acute distress 08/06/2012 None Full Exam - ENT Neurologic orientation Overall: oriented to person, place and time 08/06/2012 None Full Exam - ENT Lymphatic palpation of lymph nodes Overall: anterior cervical chain benign 08/06/2012 None Full Exam - ENT Lymphatic palpation of lymph nodes Overall: posterior cervical chain benign 08/06/2012 None Full Exam - ENT Cardiovascular auscultation of heart Overall: regular rate 08/06/2012 None Full Exam - ENT Cardiovascular auscultation of heart Overall: normal heart sounds 08/06/2012 None Full Exam - ENT Respiratory auscultation Overall: breath sounds clear bilaterally 08/06/2012 None Full Exam - ENT Face and Head palpation Overall: no sinus tenderness 08/06/2012 None Full Exam - ENT Ears/Nose/Throat otoscopic exam Overall: external auditory canals normal 08/06/2012 None Full Exam - ENT Ears/Nose/Throat otoscopic exam Overall: tympanic membranes normal 08/06/2012 None Full Exam - Orthopedics MS: left lower extremity insp & palp - LLE Thigh: tenderness 07/10/2012 over the greater trochanteric region and over the SI joint and deep in buttcok on the left Full Exam - Orthopedics MS: spine/rib/pelvis insp & palp - S/R/P Sacroiliac palpation: left sacroiliac joint tenderness 07/10/2012 None Full Exam - Orthopedics MS: spine/rib/pelvis insp & palp - S/R/P Sacroiliac palpation: left sciatic notch tenderness 07/10/2012 None Full Exam - General 1994 Constitutional general appearance Overall: well developed 07/04/2012 None Full Exam - General 1995 Constitutional general appearance Overall: in no acute distress 07/04/2012 None Full Exam - General 1995 Constitutional general appearance Overall: well nourished 07/04/2012 None Full Exam - General 1994 Eyes pupils and irises Overall: pupils equal, round, reactive to light and accomodation 07/04/2012 None Full Exam - General 1994 Respiratory auscultation Overall: breath sounds clear bilaterally 07/04/2012 None Full Exam - General 1994 Respiratory respiratory effort/rhythm Overall: no retractions 07/04/2012 None Full Exam - General 1994 Respiratory respiratory effort/rhythm Overall: normal rate 07/04/2012 None Full Exam - General 1995 Cardiovascular auscultation of heart Overall: regular rate 07/04/2012 None Full Exam - General 1994 Cardiovascular auscultation of heart Overall: normal heart sounds 07/04/2012 None Full Exam - General 1994 Abdomen abdominal exam Overall: no tenderness 07/04/2012 None Full Exam - General 1994 Abdomen abdominal exam Overall: normal bowel sounds 07/04/2012 None Full Exam - General 1994 Musculoskeletal head and neck Overall: head atraumatic 07/04/2012 None Full Exam - General 1994 Musculoskeletal head and neck Overall: cervical spine benign 07/04/2012 None Full Exam - General 1994 Neurologic gait Overall: no ataxia, no unsteadiness 07/04/2012 None Full Exam - General 1994 Neurologic cranial nerves Overall: crainial nerves 2 - 12 grossly intact 07/04/2012 None Full Exam - General 1994 Psychiatric orientation/consciousness Overall: oriented to person, place and time 07/04/2012 None Full Exam - General 1994 Psychiatric mood and affect Overall: normal mood and affect 07/04/2012 None Full Exam - General 1994 Constitutional general appearance Overall: well developed 05/22/2012 None Full Exam - General 1994 Constitutional general appearance Overall: in no acute distress 05/22/2012 None Full Exam - General 1994 Constitutional general appearance Overall: well nourished 05/22/2012 None Full Exam - General 1994 Eyes pupils and irises Overall: pupils equal, round, reactive to light and accomodation 05/22/2012 None Full Exam - General 1994 Respiratory auscultation Overall: breath sounds clear bilaterally 05/22/2012 None Full Exam - General 1994 Respiratory respiratory effort/rhythm Overall: no retractions 05/22/2012 None Full Exam - General 1994 Respiratory respiratory effort/rhythm Overall: normal rate 05/22/2012 None Full Exam - General 1994 Cardiovascular auscultation of heart Overall: regular rate 05/22/2012 None Full Exam - General 1994 Cardiovascular auscultation of heart Overall: normal heart sounds 05/22/2012 None Full Exam - General 1994 Abdomen abdominal exam Overall: no tenderness 05/22/2012 None Full Exam - General 1994 Abdomen abdominal exam Overall: normal bowel sounds 05/22/2012 None Full Exam - General 1994 Musculoskeletal head and neck Overall: head atraumatic 05/22/2012 None Full Exam - General 1994 Musculoskeletal head and neck Overall: cervical spine benign 05/22/2012 None Full Exam - General 1994 Neurologic gait Overall: no ataxia, no unsteadiness 05/22/2012 None Full Exam - General 1994 Neurologic cranial nerves Overall: crainial nerves 2 - 12 grossly intact 05/22/2012 None Full Exam - General 1994 Psychiatric orientation/consciousness Overall: oriented to person, place and time 05/22/2012 None Full Exam - General 1994 Psychiatric mood and affect Overall: normal mood and affect 05/22/2012 None Full Exam - General 1994 Constitutional general appearance Overall: well nourished 04/22/2012 None Full Exam - General 1994 Constitutional general appearance Overall: well developed 04/22/2012 None Full Exam - General 1994 Constitutional general appearance Overall: in no acute distress 04/22/2012 None Full Exam - General 1994 Eyes pupils and irises Overall: pupils equal, round, reactive to light and accomodation 04/22/2012 None Full Exam - General 1994 Respiratory auscultation Overall: breath sounds clear bilaterally 04/22/2012 None Full Exam - General 1994 Respiratory respiratory effort/rhythm Overall: no retractions 04/22/2012 None Full Exam - General 1994 Respiratory respiratory effort/rhythm Overall: normal rate 04/22/2012 None Full Exam - General 1994 Cardiovascular auscultation of heart Overall: regular rate 04/22/2012 None Full Exam - General 1994 Cardiovascular auscultation of heart Overall: normal heart sounds 04/22/2012 None Full Exam - General 1994 Abdomen abdominal exam Overall: no tenderness 04/22/2012 None Full Exam - General 1994 Abdomen abdominal exam Overall: normal bowel sounds 04/22/2012 None Full Exam - General 1994 Musculoskeletal head and neck Overall: head atraumatic 04/22/2012 None Full Exam - General 1994 Musculoskeletal head and neck Overall: cervical spine benign 04/22/2012 None Full Exam - General 1994 Neurologic gait Overall: no ataxia, no unsteadiness 04/22/2012 None Full Exam - General 1994 Neurologic cranial nerves Overall: crainial nerves 2 - 12 grossly intact 04/22/2012 None Full Exam - General 1994 Psychiatric orientation/consciousness Overall: oriented to person, place and time 04/22/2012 None Full Exam - General 1994 Psychiatric mood and affect Overall: normal mood and affect 04/22/2012 None Full Exam - General 1994 Constitutional general appearance Overall: well nourished 12/28/2011 None Full Exam - General 1994 Constitutional general appearance Overall: well developed 12/28/2011 None Full Exam - General 1994 Respiratory auscultation Overall: breath sounds clear bilaterally 12/28/2011 None Full Exam - General 1994 Cardiovascular auscultation of heart Overall: regular rate 12/28/2011 None Full Exam - General 1994 Cardiovascular auscultation of heart Overall: normal heart sounds 12/28/2011 None Full Exam - General 1994 Musculoskeletal spine, ribs and pelvis Spine: a normal exam 12/28/2011 None Full Exam - General 1994 Musculoskeletal spine, ribs and pelvis Sacroiliac joints: tender right sacroiliac joint 12/28/2011 None Full Exam - General 1994 Psychiatric orientation/consciousness Overall: oriented to person, place and time 12/28/2011 None Full Exam - General 1994 Constitutional general appearance Overall: well nourished 12/20/2011 None Full Exam - General 1994 Constitutional general appearance Overall: well developed 12/20/2011 None Full Exam - General 1994 Constitutional general appearance Overall: in no acute distress 12/20/2011 None Full Exam - General 1994 Eyes pupils and irises Overall: pupils equal, round, reactive to light and accomodation 12/20/2011 None Full Exam - General 1994 Respiratory auscultation Overall: breath sounds clear bilaterally 12/20/2011 None Full Exam - General 1994 Respiratory respiratory effort/rhythm Overall: no retractions 12/20/2011 None Full Exam - General 1994 Respiratory respiratory effort/rhythm Overall: normal rate 12/20/2011 None Full Exam - General 1994 Cardiovascular auscultation of heart Overall: regular rate 12/20/2011 None Full Exam - General 1994 Cardiovascular auscultation of heart Overall: normal heart sounds 12/20/2011 None Full Exam - General 1994 Abdomen abdominal exam Overall: no tenderness 12/20/2011 None Full Exam - General 1994 Abdomen abdominal exam Overall: normal bowel sounds 12/20/2011 None Full Exam - General 1994 Abdomen rectal exam Inspection: a normal exam 12/20/2011 None Full Exam - General 1994 Abdomen rectal exam Palpation: a normal exam 12/20/2011 None Full Exam - General 1994 Abdomen rectal exam Sphincter tone: decreased 12/20/2011 None Full Exam - General 1994 Musculoskeletal head and neck Overall: head atraumatic 12/20/2011 None Full Exam - General 1994 Musculoskeletal head and neck Overall: cervical spine benign 12/20/2011 None Full Exam - General 1994 Neurologic gait Overall: no ataxia, no unsteadiness 12/20/2011 None Full Exam - General 1994 Neurologic cranial nerves Overall: crainial nerves 2 - 12 grossly intact 12/20/2011 None Full Exam - General 1994 Psychiatric orientation/consciousness Overall: oriented to person, place and time 12/20/2011 None Full Exam - General 1994 Psychiatric mood and affect Overall: normal mood and affect 12/20/2011 None Full Exam - General 1994 Constitutional general appearance Overall: well nourished 08/23/2011 None Full Exam - General 1994 Constitutional general appearance Overall: well developed 08/23/2011 None Full Exam - General 1994 Constitutional general appearance Overall: in no acute distress 08/23/2011 None Full Exam - General 1994 Eyes pupils and irises Overall: pupils equal, round, reactive to light and accomodation 08/23/2011 None Full Exam - General 1994 Respiratory auscultation Overall: breath sounds clear bilaterally 08/23/2011 None Full Exam - General 1994 Respiratory respiratory effort/rhythm Overall: no retractions 08/23/2011 None Full Exam - General 1994 Respiratory respiratory effort/rhythm Overall: normal rate 08/23/2011 None Full Exam - General 1994 Cardiovascular auscultation of heart Overall: regular rate 08/23/2011 None Full Exam - General 1994 Cardiovascular auscultation of heart Overall: normal heart sounds 08/23/2011 None Full Exam - General 1994 Abdomen abdominal exam Overall: no tenderness 08/23/2011 None Full Exam - General 1994 Abdomen abdominal exam Overall: normal bowel sounds 08/23/2011 None Full Exam - General 1994 Abdomen rectal exam Inspection: a normal exam 08/23/2011 None Full Exam - General 1994 Abdomen rectal exam Palpation: a normal exam 08/23/2011 None Full Exam - General 1994 Abdomen rectal exam Sphincter tone: decreased 08/23/2011 None Full Exam - General 1995 Musculoskeletal head and neck Overall: head atraumatic 08/23/2011 None Full Exam - General 1994 Musculoskeletal head and neck Overall: cervical spine benign 08/23/2011 None Full Exam - General 1994 Neurologic gait Overall: no ataxia, no unsteadiness 08/23/2011 None Full Exam - General 1994 Neurologic cranial nerves Overall: crainial nerves 2 - 12 grossly intact 08/23/2011 None Full Exam - General 1994 Psychiatric orientation/consciousness Overall: oriented to person, place and time 08/23/2011 None Full Exam - General 1994 Psychiatric mood and affect Overall: normal mood and affect 08/23/2011 None Full Exam - General 1994 Musculoskeletal spine, ribs and pelvis Sacroiliac joints: tender left sacroiliac joint 08/23/2011 cleaned with iodine and sterile technique used to inject the kenalog and marcaine to joint Full Exam - General 1994 Constitutional general appearance Overall: well nourished 05/23/2011 None Full Exam - General 1994 Constitutional general appearance Overall: well developed 05/23/2011 None Full Exam - General 1994 Cardiovascular auscultation of heart Overall: regular rate 05/23/2011 None Full Exam - General 1994 Cardiovascular auscultation of heart Overall: normal heart sounds 05/23/2011 None Full Exam - General 1994 Musculoskeletal spine, ribs and pelvis Sacroiliac joints: tender right sacroiliac joint 05/23/2011 None Full Exam - General 1994 Musculoskeletal spine, ribs and pelvis Spine: a normal exam 05/23/2011 None Full Exam - General 1994 Respiratory auscultation Overall: breath sounds clear bilaterally 05/23/2011 None Full Exam - General 1994 Psychiatric orientation/consciousness Overall: oriented to person, place and time 05/23/2011 None Full Exam - General 1994 Psychiatric orientation/consciousness Overall: oriented to person, place and time 04/26/2011 None Full Exam - General 1994 Psychiatric mood and affect Overall: normal mood and affect 04/26/2011 None Full Exam - General 1994 Neurologic gait Overall: no ataxia, no unsteadiness 04/26/2011 None Full Exam - General 1994 Neurologic cranial nerves Overall: crainial nerves 2 - 12 grossly intact 04/26/2011 None Full Exam - General 1994 Musculoskeletal head and neck Overall: head atraumatic 04/26/2011 None Full Exam - General 1994 Musculoskeletal head and neck Overall: cervical spine benign 04/26/2011 None Full Exam - General 1994 Abdomen abdominal exam Overall: no tenderness 04/26/2011 None Full Exam - General 1994 Abdomen abdominal exam Overall: normal bowel sounds 04/26/2011 None Full Exam - General 1994 Cardiovascular auscultation of heart Overall: regular rate 04/26/2011 None Full Exam - General 1994 Cardiovascular auscultation of heart Overall: normal heart sounds 04/26/2011 None Full Exam - General 1994 Respiratory auscultation Overall: breath sounds clear bilaterally 04/26/2011 None Full Exam - General 1994 Respiratory respiratory effort/rhythm Overall: normal rate 04/26/2011 None Full Exam - General 1994 Respiratory respiratory effort/rhythm Overall: no retractions 04/26/2011 None Full Exam - General 1994 Eyes pupils and irises Overall: pupils equal, round, reactive to light and accomodation 04/26/2011 None Full Exam - General 1994 Constitutional general appearance Overall: well nourished 04/26/2011 None Full Exam - General 1994 Constitutional general appearance Overall: well developed 04/26/2011 None Full Exam - General 1994 Constitutional general appearance Overall: in no acute distress 04/26/2011 None Full Exam - General 1994 Abdomen rectal exam Inspection: a normal exam 04/26/2011 None Full Exam - General 1994 Abdomen rectal exam Palpation: a normal exam 04/26/2011 None Full Exam - General 1994 Abdomen rectal exam Sphincter tone: decreased 04/26/2011 None Procedures Procedure Codes Date DRAIN/INJECT JOINT/BURSA CPT-4: 51117 05/29/2018 TRIAMCINOLONE ACET INJ NOS CPT-4: J3301 05/29/2018 THER/PROPH/DIAG INJ SC/IM CPT-4: 34050 05/07/2018 VITAMIN B12 INJECTION CPT-4: J3420 05/07/2018 FLU VAC NO PRSV 4 JINNY 3 YRS+ CPT-4: 79949 04/04/2018 ADMIN INFLUENZA VIRUS VAC CPT-4: G0008 04/04/2018 THER/PROPH/DIAG INJ SC/IM CPT-4: 72146 04/04/2018 VITAMIN B12 INJECTION CPT-4: J3420 04/04/2018 THER/PROPH/DIAG INJ SC/IM CPT-4: 99386 03/04/2018 VITAMIN B12 INJECTION CPT-4: J3420 03/04/2018 PPPS, SUBSEQ VISIT CPT -4: G0439 01/29/2018 ADMIN [address]CCAL VACCINE SNOMED CT: 24815811 CPT-4: G0009 01/29/2018 PNEUMOCOCCAL VACC [address]: 18862062 CPT-4: 74346 01/29/2018 THER/PROPH/DIAG INJ SC/IM CPT-4: 82276 01/29/2018 VITAMIN B12 INJECTION CPT-4: J3420 01/29/2018 PRESCRIP TRANSMIT VIA ERX SY CPT-4: G8553 01/01/2018 PRESCRIP TRANSMIT VIA ERX SY CPT-4: G8553 12/27/2017 THER/PROPH/DIAG INJ SC/IM CPT-4: 10245 12/18/2017 VITAMIN B12 INJECTION CPT-4: J3420 12/18/2017 PRESCRIP TRANSMIT VIA ERX SY CPT-4: G8553 12/18/2017 THER/PROPH/DIAG INJ SC/IM CPT-4: 11564 11/20/2017 VITAMIN B12 INJECTION CPT-4: J3420 11/20/2017 THER/PROPH/DIAG INJ SC/IM CPT-4: 06581 08/21/2017 VITAMIN B12 INJECTION CPT-4: J3420 08/21/2017 THER/PROPH/DIAG INJ SC/IM CPT-4: 26652 07/18/2017 VITAMIN B12 INJECTION CPT-4: J3420 07/18/2017 TRIAMCINOLONE ACET INJ NOS CPT-4: J3301 06/18/2017 THER/PROPH/DIAG INJ SC/IM CPT-4: 73956 06/18/2017 VITAMIN B12 INJECTION CPT-4: J3420 06/18/2017 PRESCRIP TRANSMIT VIA ERX SY CPT-4: G8553 06/18/2017 THER/PROPH/DIAG INJ SC/IM CPT-4: 52914 05/09/2017 VITAMIN B12 INJECTION CPT-4: J3420 05/09/2017 ADMIN INFLUENZA VIRUS VAC CPT-4: G0008 04/25/2017 FLU VAC NO PRSV 4 JINNY 3 YRS+ CPT-4: 93173 04/25/2017 THER/PROPH/DIAG INJ SC/IM CPT-4: 42969 04/04/2017 VITAMIN B12 INJECTION CPT-4: J3420 04/04/2017 TRIAMCINOLONE ACET INJ NOS CPT-4: J3301 02/23/2017 VITAMIN B12 INJECTION CPT-4: J3420 02/23/2017 THER/PROPH/DIAG INJ SC/IM CPT-4: 48536 01/23/2017 VITAMIN B12 INJECTION CPT-4: J3420 01/23/2017 VITAMIN B12 INJECTION CPT-4: J3420 12/26/2016 THER/PROPH/DIAG INJ SC/IM CPT-4: 21318 12/26/2016 THER/PROPH/DIAG INJ SC/IM CPT-4: 83336 11/14/2016 VITAMIN B12 INJECTION CPT-4: J3420 11/14/2016 THER/PROPH/DIAG INJ SC/IM CPT-4: 38758 09/07/2016 TRIAMCINOLONE ACET INJ NOS CPT-4: J3301 09/07/2016 PRESCRIP TRANSMIT VIA ERX SY CPT-4: G8553 09/07/2016 THER/PROPH/DIAG INJ SC/IM CPT-4: 07554 08/29/2016 VITAMIN B12 INJECTION CPT-4: J3420 08/29/2016 PRESCRIP TRANSMIT VIA ERX SY CPT-4: G8553 08/29/2016 THER/PROPH/DIAG INJ SC/IM CPT-4: 36858 06/12/2016 VITAMIN B12 INJECTION CPT-4: J3420 06/12/2016 PRESCRIP TRANSMIT VIA ERX SY CPT-4: G8553 06/12/2016 URINALYSIS NONAUTO W/O SCOPE CPT-4: 55303 05/04/2016 ROCEPHIN, PER 250 MG CPT-4: J0696 05/04/2016 THER/PROPH/DIAG INJ SC/IM CPT-4: 76408 05/04/2016 VITAMIN B12 INJECTION CPT-4: J3420 05/04/2016 PRESCRIP TRANSMIT VIA ERX SY CPT-4: G8553 05/04/2016 PRESCRIP TRANSMIT VIA ERX SY CPT-4: G8553 03/30/2016 THER/PROPH/DIAG INJ SC/IM CPT-4: 04132 03/17/2016 VITAMIN B12 INJECTION CPT-4: J3420 03/17/2016 THER/PROPH/DIAG INJ SC/IM CPT-4: 01584 02/15/2016 VITAMIN B12 INJECTION CPT-4: J3420 02/15/2016 THER/PROPH/DIAG INJ SC/IM CPT-4: 99846 01/19/2016 VITAMIN B12 INJECTION CPT-4: J3420 01/19/2016 THER/PROPH/DIAG INJ SC/IM CPT-4: 49686 12/07/2015 VITAMIN B12 INJECTION CPT-4: J3420 12/07/2015 ROCEPHIN, PER 250 MG CPT-4: J0696 09/06/2015 THER/PROPH/DIAG INJ SC/IM CPT-4: 23607 09/06/2015 VITAMIN B12 INJECTION CPT-4: J3420 09/06/2015 PRESCRIP TRANSMIT VIA ERX SY CPT-4: G8553 09/06/2015 ROCEPHIN, PER 250 MG CPT-4: J0696 07/05/2015 TRIAMCINOLONE ACET INJ NOS CPT-4: J3301 07/05/2015 PRESCRIP TRANSMIT VIA ERX SY CPT-4: G8553 07/05/2015 THER/PROPH/DIAG INJ SC/IM CPT-4: 65888 06/28/2015 VITAMIN B12 INJECTION CPT-4: J3420 06/28/2015 THER/PROPH/DIAG INJ SC/IM CPT-4: 76633 05/13/2015 VITAMIN B12 INJECTION CPT-4: J3420 05/13/2015 THER/PROPH/DIAG INJ SC/IM CPT-4: 64275 02/23/2015 VITAMIN B12 INJECTION CPT-4: J3420 02/23/2015 THER/PROPH/DIAG INJ SC/IM CPT-4: 71711 01/08/2015 VITAMIN B12 INJECTION CPT-4: J3420 01/08/2015 THER/PROPH/DIAG INJ SC/IM CPT-4: 44939 12/08/2014 VITAMIN B12 INJECTION CPT-4: J3420 12/08/2014 THER/PROPH/DIAG INJ SC/IM CPT-4: 37602 10/26/2014 VITAMIN B12 INJECTION CPT-4: J3420 10/26/2014 VITAMIN B12 INJECTION CPT-4: J3420 09/24/2014 THER/PROPH/DIAG INJ SC/IM CPT-4: 48667 09/24/2014 THER/PROPH/DIAG INJ SC/IM CPT-4: 02366 08/24/2014 VITAMIN B12 INJECTION CPT-4: J3420 08/24/2014 THER/PROPH/DIAG INJ SC/IM CPT-4: 78861 07/08/2014 VITAMIN B12 INJECTION CPT-4: J3420 07/08/2014 THER/PROPH/DIAG INJ SC/IM CPT-4: 62657 06/01/2014 VITAMIN B12 INJECTION CPT-4: J3420 06/01/2014 TRIAMCINOLONE ACET INJ NOS CPT-4: J3301 05/11/2014 VITAMIN B12 INJECTION CPT-4: J3420 04/27/2014 THER/PROPH/DIAG INJ SC/IM CPT-4: 83231 04/27/2014 FLU VAC NO PRSV 4 JINNY 3 YRS+ CPT-4: 65514 04/03/2014 ADMIN INFLUENZA VIRUS VAC Assigned to/Juliana rGaham CPT-4: [id number] 04/03/2014 THER/PROPH/DIAG INJ SC/IM CPT-4: 35651 03/24/2014 THER/PROPH/DIAG INJ SC/IM CPT-4: 48628 02/24/2014 THER/PROPH/DIAG INJ SC/IM CPT-4: 18515 01/09/2014 THER/PROPH/DIAG INJ SC/IM CPT-4: 76706 11/27/2013 THER/PROPH/DIAG INJ SC/IM CPT-4: 33312 09/18/2013 VITAMIN B12 INJECTION CPT-4: J3420 09/18/2013 THER/PROPH/DIAG INJ SC/IM CPT-4: 80043 08/22/2013 VITAMIN B12 INJECTION CPT-4: J3420 08/22/2013 ROUTINE VENIPUNCTURE CPT-4: 76621 07/28/2013 VITAMIN B12 INJECTION CPT-4: J3420 07/28/2013 THER/PROPH/DIAG INJ SC/IM CPT-4: 14236 07/28/2013 THER/PROPH/DIAG INJ SC/IM CPT-4: 46859 06/16/2013 VITAMIN B12 INJECTION CPT-4: J3420 06/16/2013 THER/PROPH/DIAG INJ SC/IM CPT-4: 33376 05/21/2013 VITAMIN B12 INJECTION CPT-4: J3420 05/21/2013 ADMIN INFLUENZA VIRUS VAC CPT-4: G0008 04/23/2013 FLULAVAL VACC, 3 YRS & >, IM CPT-4: Q2036 04/23/2013 VITAMIN B12 INJECTION CPT-4: J3420 04/23/2013 THER/PROPH/DIAG INJ SC/IM CPT-4: 13243 04/23/2013 THER/PROPH/DIAG INJ SC/IM CPT-4: 07199 03/24/2013 VITAMIN B12 INJECTION CPT-4: J3420 03/24/2013 THER/PROPH/DIAG INJ SC/IM CPT-4: 09180 02/20/2013 VITAMIN B12 INJECTION CPT-4: J3420 02/20/2013 VITAMIN B12 INJECTION CPT-4: J3420 01/22/2013 PRESCRIP TRANSMIT VIA ERX SY CPT-4: G8553 01/22/2013 TRIAMCINOLONE ACET INJ NOS CPT-4: J3301 12/19/2012 VITAMIN B12 INJECTION CPT-4: J3420 12/19/2012 THER/PROPH/DIAG INJ SC/IM CPT-4: 66527 11/20/2012 VITAMIN B12 INJECTION CPT-4: J3420 11/20/2012 THER/PROPH/DIAG INJ SC/IM CPT-4: 86115 10/23/2012 VITAMIN B12 INJECTION CPT-4: J3420 10/23/2012 THER/PROPH/DIAG INJ SC/IM CPT-4: 40985 09/16/2012 VITAMIN B12 INJECTION CPT-4: J3420 09/16/2012 VITAMIN B12 INJECTION CPT-4: J3420 08/15/2012 THER/PROPH/DIAG INJ SC/IM CPT-4: 63774 08/15/2012 TRIAMCINOLONE ACET INJ NOS CPT-4: J3301 08/06/2012 THER/PROPH/DIAG INJ SC/IM CPT-4: 41545 08/06/2012 PRESCRIP TRANSMIT VIA ERX SY CPT-4: G8553 08/06/2012 VITAMIN B12 INJECTION CPT-4: J3420 07/19/2012 THER/PROPH/DIAG INJ SC/IM CPT-4: 67076 07/19/2012 DRAIN/INJECT JOINT/BURSA CPT-4: 82821 07/10/2012 THER/PROPH/DIAG INJ SC/IM CPT-4: 46408 06/19/2012 VITAMIN B12 INJECTION CPT-4: J3420 06/19/2012 VITAMIN B12 INJECTION CPT-4: J3420 05/22/2012 THER/PROPH/DIAG INJ SC/IM CPT-4: 02439 05/22/2012 ADMIN INFLUENZA VIRUS VAC CPT-4: G0008 04/22/2012 FLULAVAL VACC, 3 YRS & >, IM CPT-4: Q2036 04/22/2012 VITAMIN B12 INJECTION CPT-4: J3420 04/22/2012 VITAMIN B12 INJECTION CPT-4: J3420 03/19/2012 THER/PROPH/DIAG INJ SC/IM CPT-4: 35160 03/19/2012 VITAMIN B12 INJECTION CPT-4: J3420 02/15/2012 THER/PROPH/DIAG INJ SC/IM CPT-4: 62327 02/15/2012 THER/PROPH/DIAG INJ SC/IM CPT-4: 53182 01/18/2012 VITAMIN B12 INJECTION CPT-4: J3420 01/18/2012 TRIAMCINOLONE ACET INJ NOS CPT-4: J3301 12/28/2011 DRAIN/INJECT JOINT/BURSA CPT-4: 10007 12/28/2011 VITAMIN B12 INJECTION CPT-4: J3420 12/20/2011 THER/PROPH/DIAG INJ SC/IM CPT-4: 64639 12/20/2011 VITAMIN B12 INJECTION CPT-4: J3420 11/07/2011 THER/PROPH/DIAG INJ SC/IM CPT-4: 52973 11/07/2011 VITAMIN B12 INJECTION CPT-4: J3420 10/03/2011 THER/PROPH/DIAG INJ SC/IM CPT-4: 33618 10/03/2011 TRIAMCINOLONE ACET INJ NOS CPT-4: J3301 08/23/2011 DRAIN/INJECT JOINT/BURSA CPT-4: 77594 08/23/2011 THER/PROPH/DIAG INJ SC/IM CPT-4: 31197 08/23/2011 VITAMIN B12 INJECTION CPT-4: J3420 08/23/2011 VITAMIN B12 INJECTION CPT-4: J3420 07/28/2011 THER/PROPH/DIAG INJ SC/IM CPT-4: 69864 07/28/2011 VITAMIN B12 INJECTION CPT-4: J3420 06/29/2011 THER/PROPH/DIAG INJ SC/IM CPT-4: 32998 06/29/2011 KETOROLAC TROMETHAMINE INJ CPT-4: J1885 05/23/2011 VITAMIN B12 INJECTION CPT-4: J3420 05/23/2011 THER/PROPH/DIAG INJ SC/IM CPT-4: 95746 05/23/2011 ADMIN INFLUENZA VIRUS VAC CPT-4: G0008 04/26/2011 FLULAVAL VACC, 3 YRS & >, IM CPT-4: Q2036 04/26/2011 VITAMIN B12 INJECTION CPT-4: J3420 04/26/2011 THER/PROPH/DIAG INJ SC/IM CPT-4: 04436 04/26/2011 Vital Signs Date Vital 05/29/2018 Blood Pressure 1: 120/64 Code : 8480-6 BMI: 35.5 Code : 65044-4 Heart Rate 1 : 58 bpm Height: 5'6" SpO2: 96% Weight: 220 lbs 05/07/2018 Blood Pressure 1: 130/60 Code : 8480-6 BMI: 35.5 Code : 55051-7 Heart Rate 1 : 60 bpm Height: 5'6" SpO2: 97% Weight: 220 lbs 01/29/2018 Blood Pressure 1: 150/80 Code : 8480-6 BMI: 35.5 Code : 57992-0 Heart Rate 1 : 68 bpm Height: 5'6" SpO2: 97% Waist Measure (cm): 109 cm Weight: 220 lbs 01/01/2018 Blood Pressure 1: 136/68 Code : 8480-6 BMI: 35.2 Code : 02494-2 Heart Rate 1 : 60 bpm Height: 5'6" Respiratory Rate: 16 bpm SpO2: 98% Weight: 218 lbs 12/27/2017 Height: Weight: 12/18/2017 Blood Pressure 1: 118/62 Code : 8480-6 BMI: 36.2 Code : 81794-7 Heart Rate 1 : 45 bpm Height: 5'6" SpO2: 98% Weight: 224 lbs 12/13/2017 Blood Pressure 1: 138/88 Code : 8480-6 Heart Rate 1: 92 bpm Height: SpO2: 98% Weight: 06/18/2017 Blood Pressure 1: 134/68 Code : 8480-6 BMI: 35.8 Code : 85362-2 Heart Rate 1 : 50 bpm Height: 5'6" SpO2: 98% Weight: 222 lbs 06/07/2017 Blood Pressure 1: 146/68 Code : 8480-6 BMI: 35.3 Code : 17036-1 Heart Rate 1 : 63 bpm Height: 5'6" SpO2: 99% Weight: 218 lbs 8 oz 04/16/2017 Blood Pressure 1: 130/62 Code : 8480-6 BMI: 34.7 Code : 69914-9 Heart Rate 1 : 51 bpm Height: 5'6" SpO2: 94% Weight: 215 lbs 02/23/2017 Blood Pressure 1: 136/64 Code : 8480-6 BMI: 35.0 Code : 14604-1 Heart Rate 1 : 54 bpm Height: 5'6" SpO2: 96% Weight: 217 lbs 12/26/2016 Blood Pressure 1: 144/74 Code : 8480-6 BMI: 34.5 Code : 82103-6 Heart Rate 1 : 60 bpm Height: 5'6" SpO2: 97% Weight: 214 lbs 09/07/2016 Blood Pressure 1: 138/62 Code : 8480-6 Heart Rate 1: 86 bpm SpO2: 96% Temperature: 36.8 (C) / 98.2 (F) Weight: 207 lbs 08/29/2016 Blood Pressure 1: 132/58 Code : 8480-6 BMI: 33.9 Code : 37505-0 Heart Rate 1 : 55 bpm Height: 5'6" SpO2: 98% Weight: 210 lbs 06/12/2016 Blood Pressure 1: 128/76 Code : 8480-6 BMI: 33.2 Code : 75344-0 Heart Rate 1 : 57 bpm Height: 5'6" SpO2: 97% Weight: 206 lbs 05/04/2016 Blood Pressure 1: 130/72 Code : 8480-6 BMI: 33.9 Code : 87512-2 Heart Rate 1 : 74 bpm Height: 5'6" SpO2: 96% Temperature: 36.9 (C) / 98.5 (F) Weight: 210 lbs 03/30/2016 Blood Pressure 1: 116/66 Code : 8480-6 BMI: 34.3 Code : 17070-8 Heart Rate 1 : 67 bpm Height: 5'6" SpO2: 98% Weight: 212 lbs 8 oz 11/30/2015 Blood Pressure 1: 138/64 Code : 8480-6 BMI: 35.2 Code : 50694-1 Heart Rate 1 : 59 bpm Height: 5'6" SpO2: 98% Weight: 218 lbs 09/06/2015 Blood Pressure 1: 138/668 Code: 8480-6 BMI: 35.3 Code: 61932-5 Heart Rate 1: 68 bpm Height: 5'6" Weight: 219 lbs 08/04/2015 Blood Pressure 1: 140/82 Code : 8480-6 Heart Rate 1: 62 bpm SpO2: 98% Weight: 220 lbs 07/05/2015 Blood Pressure 1: 122/80 Code : 8480-6 BMI: 36.0 Code : 99160-9 Heart Rate 1 : 63 bpm Height: 5'6" SpO2: 97% Temperature: 36.3 (C) / 97.3 (F) Weight: 223 lbs 06/28/2015 Blood Pressure 1: 150/74 Code : 8480-6 BMI: 36.3 Code : 44009-6 Heart Rate 1 : 65 bpm Height: 5'6" SpO2: 96% Weight: 225 lbs 02/23/2015 Blood Pressure 1: 142/64 Code : 8480-6 BMI: 37.0 Code : 75129-1 Heart Rate 1 : 56 bpm Height: 5'6" SpO2: 96% Weight: 229 lbs 01/08/2015 Blood Pressure 1: 128/88 Code : 8480-6 BMI: 37.3 Code : 37255-9 Heart Rate 1 : 74 bpm Height: 5'6" Weight: 231 lbs 09/24/2014 Blood Pressure 1: 128/70 Code : 8480-6 BMI: 36.8 Code : 92818-7 Heart Rate 1 : 68 bpm Height: 5'6" SpO2: 96% Weight: 228 lbs 05/11/2014 Blood Pressure 1: 148/82 Code : 8480-6 Height: Temperature: 36.2 (C) / 97.2 (F) Weight: 05/01/2014 Blood Pressure 1: 128/68 Code : 8480-6 BMI: 36.6 Code : 02904-4 Heart Rate 1 : 74 bpm Height: 5'6" Weight: 227 lbs 04/03/2014 Blood Pressure 1: 130/72 Code : 8480-6 BMI: 36.8 Code : 69196-0 Heart Rate 1 : 76 bpm Height: 5'6" Weight: 228 lbs 11/24/2013 Blood Pressure 1: 146/64 Code : 8480-6 BMI: 35.5 Code : 10468-8 Heart Rate 1 : 64 bpm Height: 5'6" Weight: 220 lbs 08/22/2013 Weight: 223 lbs 07/28/2013 Blood Pressure 1: 112/68 Code : 8480-6 BMI: 36.2 Code : 46594-4 Heart Rate 1 : 80 bpm Height: 5'6" Weight: 224 lbs 06/16/2013 Blood Pressure 1: 132/60 Code : 8480-6 BMI: 37.6 Code : 95709-2 Heart Rate 1 : 72 bpm Height: 5'6" Weight: 233 lbs 01/22/2013 Blood Pressure 1: 130/64 Code : 8480-6 BMI: 37.3 Code : 23229-7 Heart Rate 1 : 80 bpm Height: 5'6" Weight: 231 lbs 10/02/2012 Blood Pressure 1: 146/90 Code : 8480-6 BMI: 36.8 Code : 40396-4 Heart Rate 1 : 60 bpm Height: 5'6" Weight: 228 lbs 08/06/2012 Blood Pressure 1: 140/66 Code : 8480-6 Heart Rate 1: 60 bpm Weight: 224 lbs 07/10/2012 Blood Pressure 1: 148/62 Code : 8480-6 Heart Rate 1: 68 bpm 07/04/2012 Blood Pressure 1: 142/62 Code : 8480-6 Heart Rate 1: 76 bpm Weight: 227 lbs 05/22/2012 Blood Pressure 1: 162/82 Code : 8480-6 Heart Rate 1: 80 bpm Respiratory Rate : 20 bpm Weight: 228 lbs 04/22/2012 Blood Pressure 1: 184/80 Code : 8480-6 Heart Rate 1: 72 bpm Respiratory Rate : 20 bpm Weight: 226 lbs 12/28/2011 Blood Pressure 1: 158/68 Code : 8480-6 BMI: 37.1 Code : 14210-4 Heart Rate 1 : 60 bpm Height: 5'6" Respiratory Rate: 16 bpm Weight: 230 lbs 12/20/2011 Blood Pressure 1: 142/66 Code : 8480-6 BMI: 35.8 Code : 66790-0 Heart Rate 1 : 66 bpm Height: 5'6" Respiratory Rate: 16 bpm Weight: 222 lbs 08/23/2011 Blood Pressure 1: 128/68 Code : 8480-6 Heart Rate 1: 68 bpm Respiratory Rate : 16 bpm Weight: 225 lbs 8 oz 05/23/2011 Blood Pressure 1: 130/62 Code : 8480-6 Heart Rate 1: 64 bpm Respiratory Rate : 20 bpm Weight: 225 lbs 04/26/2011 Blood Pressure 1: 152/66 Code : 8480-6 BMI: 36.2 Code : 55516-4 Heart Rate 1 : 64 bpm Height: 5'6" Respiratory Rate: 16 bpm Weight: 224 lbs 8 oz Functional Status No Functional Status data History of Present Illness Symptom Name Status Result Effective Date Notes back pain Location lumbar-sacral spine 05/29/2018 None back pain Quality aching 05/29/2018 None back pain Quality constant 05/29/2018 None back pain Quality sharp 05/29/2018 None back pain Onset and Resolution sudden in onset 05/29/2018 None back pain Onset of Symptom 3 days ago 05/29/2018 None back pain Limitation on Activities moderately limits activities 05/29/2018 None back pain Frequency of Episodes daily 05/29/2018 None back pain Radiating into right foot 05/29/2018 None diabetes mellitus Onset of Symptom onset as an adult 05/07/2018 None diabetes mellitus Alleviating Factors medication 05/07/2018 None diabetes mellitus Exacerbating Factors diet 05/07/2018 None hypertension Quality chronic 05/07/2018 None hypertension Quality primary hypertension 05/07/2018 None hypertension Onset and Resolution ongoing 05/07/2018 None hypertension Onset of Symptom during adulthood 05/07/2018 None hypertension Alleviating Factors medication 05/07/2018 None diabetes mellitus Quality chronic 05/07/2018 None diabetes mellitus Quality non-insulin dependent 05/07/2018 None hypertension Significant Medical Conditions diabetes 05/07/2018 None hypertension Significant Medical Conditions hypothyroidism 05/07/2018 None hypertension Blood Pressure Values patient checking blood pressure at home - did not bring in readings 05/07/2018 None hypertension Pertinent Findings dizziness 05/07/2018 when she bends over and stands up hypertension Pertinent Findings Denies dyspnea 05/07/2018 None hypertension Pertinent Findings edema 05/07/2018 at times diabetes mellitus Test results Pt checking blood glucose readings, did not bring results to clinic 05/07/2018 None diabetes mellitus Glucose monitoring daily 05/07/2018 None diabetes mellitus Test results HgbA1c level 6.1% 05/07/2018 None hypothyroid Quality chronic 05/07/2018 None hypothyroid Onset and Resolution ongoing 05/07/2018 None hypothyroid Alleviating Factors medication 05/07/2018 None Annual Medicare Wellness Exam Alcohol Use does not drink any alcohol 01/29/2018 None Annual Medicare Wellness Exam Aspirin Use no 01/29/2018 None Annual Medicare Wellness Exam Blood Glucose (self reported) has a diagnosis of diabetes 01/29/2018 None Annual Medicare Wellness Exam Blood Pressure (self reported ) diagnosed with hypertension 01/29/2018 None Annual Medicare Wellness Exam Cholesterol (self reported) diagnosed with elevated cholesterol 2017 None Annual Medicare Wellness Exam Hemaglobin A-1C (self reported ) borderline high (7) 01/29/2018 None Annual Medicare Wellness Exam Depression (last 6 months) almost never 01/29/2018 None Annual Medicare Wellness Exam Depression or Hopelessness almost never 01/29/2018 None Annual Medicare Wellness Exam Handling Stress usually [place] effectively 01/29/2018 None Annual Medicare Wellness Exam Stress daily 01/29/2018 None Annual Medicare Wellness Exam Social & Emotional Support usually 01/29/2018 None Annual Medicare Wellness Exam Describe Your Health good 01/29/2018 None Annual Medicare Wellness Exam Exercise Habits exercises 3 days per week 01/29/2018 None Annual Medicare Wellness Exam Exercise Habits exercises 30 minutes per day 01/29/2018 None Annual Medicare Wellness Exam Hours of Sleep 6.5 01/29/2018 None Annual Medicare Wellness Exam Interaction with Friends no 01/29/2018 None Annual Medicare Wellness Exam Interests & Pleasure almost never 01/29/2018 None Annual Medicare Wellness Exam Life Satisfaction dissatisfied 01/29/2018 None Annual Medicare Wellness Exam Motor Vehicle Safety always fastens seat belt: no 01/29/2018 None Annual Medicare Wellness Exam Motor Vehicle Safety drives after drinking: no 01/29/2018 None Annual Medicare Wellness Exam Motor Vehicle Safety rides with someone who has been drinking: no 01/29 None Annual Medicare Wellness Exam Nutrition servings of fried food / high fat foods per day: 2 2017 None Annual Medicare Wellness Exam Nutrition servings of high fiber / whole grain per day: 2 01/29/2018 None Annual Medicare Wellness Exam Nutrition servings of vegetables / fruit per day: 4 01/29/2018 None Annual Medicare Wellness Exam Smoking and Tobacco Use non smoker 01/29/2018 None Annual Medicare Wellness Exam Sun Exposure protects skin when outdoors: yes 01/29/2018 None knee pain Location on the left 01/01/2018 None knee pain Alleviating Factors rest 01/01/2018 None knee pain Exacerbating Factors exertion 01/01/2018 None knee pain Exacerbating Factors weight bearing 01/01/2018 None knee pain Pertinent Findings Denies instability 01/01/2018 None knee pain Quality intermittent 01/01/2018 None knee pain Quality tenderness 01/01/2018 None diabetes mellitus Onset of Symptom onset as an adult 01/01/2018 None diabetes mellitus Test results Pt checking blood glucose readings, did not bring results to clinic 01/01/2018 None diabetes mellitus Glucose monitoring occasional glucose testing 01/01/2018 None diabetes mellitus Alleviating Factors medication 01/01/2018 None diabetes mellitus Exacerbating Factors diet 01/01/2018 None knee pain Location on the left 12/18/2017 None knee pain Location in the anterior region 12/18/2017 None knee pain Quality giving way 12/18/2017 None knee pain Quality throbbing 12/18/2017 None knee pain Alleviating Factors ice compression 12/18/2017 None knee pain Alleviating Factors NSAID's 12/18/2017 None knee pain Alleviating Factors rest 12/18/2017 None knee pain Exacerbating Factors exertion 12/18/2017 None knee pain Exacerbating Factors weight bearing 12/18/2017 None knee pain Exacerbating Factors flexion of the knee 12/18/2017 None knee pain Exacerbating Factors extension of the knee 12/18/2017 None knee pain Pertinent Findings instability 12/18/2017 None knee pain Location on the left 12/13/2017 None knee pain Location in the anterior region 12/13/2017 None knee pain Quality giving way 12/13/2017 None knee pain Quality throbbing 12/13/2017 None knee pain Exacerbating Factors weight bearing 12/13/2017 None knee pain Exacerbating Factors exertion 12/13/2017 None knee pain Exacerbating Factors flexion of the knee 12/13/2017 None knee pain Exacerbating Factors extension of the knee 12/13/2017 None knee pain Alleviating Factors NSAID's 12/13/2017 None knee pain Alleviating Factors rest 12/13/2017 None knee pain Alleviating Factors ice compression 12/13/2017 None knee pain Pertinent Findings instability 12/13/2017 None diabetes mellitus Onset of Symptom onset as an adult 06/18/2017 None diabetes mellitus Quality non-insulin dependent 06/18/2017 None diabetes mellitus Alleviating Factors medication 06/18/2017 None diabetes mellitus Exacerbating Factors diet 06/18/2017 None diabetes mellitus Pertinent Findings Denies nausea 06/18/2017 None hypertension Quality primary hypertension 06/18/2017 None hypertension Onset and Resolution ongoing 06/18/2017 None hypertension Onset of Symptom during adulthood 06/18/2017 None hypertension Blood Pressure Values patient checking blood pressure at home - did not bring in readings 06/18/2017 None hypertension Alleviating Factors medication 06/18/2017 None hypertension Pertinent Findings Denies dizziness 06/18/2017 None hypertension Pertinent Findings Denies dyspnea 06/18/2017 None hypertension Pertinent Findings edema 06/18/2017 --missed a dose of lasix yesterday diarrhea Quality acute 06/18/2017 but improved - pt has been taking the probiotic and feels like it has helped diarrhea Onset and Resolution sudden in onset 06/18/2017 None diarrhea Onset and Resolution ongoing 06/18/2017 None diarrhea Onset of Symptom 2+ months ago 06/18/2017 None diarrhea Pertinent Findings fecal urgency 06/18/2017 None diarrhea Pertinent Findings abdominal distension 06/18/2017 -improved diarrhea Pertinent Findings heartburn 06/18/2017 -improved diarrhea Pertinent Findings bloating 06/18/2017 -improved diarrhea Quality intermittent 06/18/2017 None diarrhea Alleviating Factors antidiarrheal agent 06/18/2017 (lomotil) diarrhea Quality improving 06/18/2017 None diarrhea Frequency of Episodes decreasing 06/18/2017 None diabetes mellitus Test results Pt checking blood glucose readings, did not bring results to clinic 06/18/2017 Glenda states that her blood glucose is "all over the place". diabetes mellitus Glucose monitoring daily 06/18/2017 None diabetes mellitus Glucose monitoring fasting 06/18/2017 None diarrhea Quality acute 06/07/2017 None diarrhea Quality constant 06/07/2017 None diarrhea Onset and Resolution ongoing 06/07/2017 None diarrhea Onset and Resolution sudden in onset 06/07/2017 None diarrhea Onset of Symptom 2 months ago 06/07/2017 None diarrhea Pertinent Findings fecal urgency 06/07/2017 None diarrhea Pertinent Findings abdominal distension 06/07/2017 None diarrhea Pertinent Findings Denies dyspepsia 06/07/2017 None diarrhea Pertinent Findings Denies cramping 06/07/2017 None diarrhea Pertinent Findings heartburn 06/07/2017 None diarrhea Pertinent Findings bloating 06/07/2017 None diabetes mellitus Onset of Symptom onset as an adult 04/16/2017 None diabetes mellitus Quality non-insulin dependent 04/16/2017 None diabetes mellitus Alleviating Factors medication 04/16/2017 None diabetes mellitus Exacerbating Factors diet 04/16/2017 None hypertension Quality primary hypertension 04/16/2017 None hypertension Onset and Resolution ongoing 04/16/2017 None hypertension Onset of Symptom during adulthood 04/16/2017 None hypertension Blood Pressure Values patient checking blood pressure at home - did not bring in readings 04/16/2017 None hypertension Alleviating Factors medication 04/16/2017 None hypertension Pertinent Findings Denies dizziness 04/16/2017 None hypertension Pertinent Findings Denies dyspnea 04/16/2017 None hypertension Pertinent Findings edema 04/16/2017 None diabetes mellitus Test results Pt checking blood glucose readings, did not bring results to clinic 04/16/2017 None diabetes mellitus Glucose monitoring daily 04/16/2017 None diabetes mellitus Pertinent Findings nausea 04/16/2017 "once in a while" arrhythmia Quality acute 04/16/2017 None arrhythmia Quality irregular beats 04/16/2017 None arrhythmia Quality intermittent 04/16/2017 None arrhythmia Onset and Resolution ongoing 04/16/2017 None arrhythmia Onset of Symptom 11 days ago 04/16/2017 None hip pain Location on the right 02/23/2017 None hip pain Quality intermittent 02/23/2017 None hip pain Quality sharp pain 02/23/2017 None hip pain Quality throbbing 02/23/2017 None hip pain Onset and Resolution sudden in onset 02/23/2017 None hip pain Onset and Resolution ongoing 02/23/2017 None hip pain Frequency of Episodes decreasing 02/23/2017 None hip pain Onset of Symptom 4 days ago 02/23/2017 None hip pain Limitation on Activities allows ambulation 02/23/2017 None hip pain Severity mild 02/23/2017 None hip pain Significant Medications NSAID's 02/23/2017 None hip pain Significant Medications narcotic medications 02/23/2017 None hip pain Mechanism of injury unknown 02/23/2017 None hip pain Alleviating Factors NSAID's 02/23/2017 None hip pain Pertinent Findings pain at rest 02/23/2017 None hip pain Pertinent Findings pain with movement 02/23/2017 None hip pain Pertinent Findings stiffness 02/23/2017 None hip pain Pertinent Findings Denies swelling 02/23/2017 None diabetes mellitus Onset of Symptom onset as an adult 12/26/2016 None diabetes mellitus Quality non-insulin dependent 12/26/2016 None diabetes mellitus Test results Pt checking blood glucose readings, did not bring results to clinic 12/26/2016 None diabetes mellitus Glucose monitoring occasional glucose testing 12/26/2016 None diabetes mellitus Alleviating Factors medication 12/26/2016 None diabetes mellitus Exacerbating Factors diet 12/26/2016 None cough Location in the throat 09/07/2016 None cough Quality constant 09/07/2016 None cough Quality dry 03/2017 None cough Onset and Resolution sudden in onset 09/07/2016 None cough Onset of Symptom 1 weeks ago 09/07/2016 None cough Frequency of Episodes daily 09/07/2016 None cough Pertinent Findings Denies chest discomfort 09/07/2016 None cough Pertinent Findings hoarseness 09/07/2016 None cough Pertinent Findings nasal congestion 09/07/2016 None cough Quality productive 09/07/2016 at times with whitish mucus cough Onset and Resolution ongoing 09/07/2016 None cough Pertinent Findings Denies dyspnea 09/07/2016 None cough Pertinent Findings fever 09/07/2016 None cough Pertinent Findings Denies muscle aches 09/07/2016 None cough Pertinent Findings Denies nausea 09/07/2016 None cough Pertinent Findings sputum production 09/07/2016 None cough Pertinent Findings Denies vomiting 09/07/2016 None cough Pertinent Findings weakness 09/07/2016 None cough Pertinent Findings post nasal drip 09/07/2016 at times cough Triggers post nasal drip 09/07/2016 None cough Triggers no known associated factors 09/07/2016 None cough Alleviating Factors OTC medications 09/07/2016 cough drops, zyrtec , flonase cough Location in the throat 08/29/2016 None cough Quality dry None cough Quality constant 08/29/2016 None cough Onset and Resolution sudden in onset 08/29/2016 None cough Onset of Symptom 1 weeks ago 08/29/2016 None cough Frequency of Episodes daily 08/29/2016 None cough Pertinent Findings Denies chest discomfort 08/29/2016 None cough Pertinent Findings hoarseness 08/29/2016 None cough Pertinent Findings nasal congestion 08/29/2016 None earache Location both ears 08/29/2016 None earache Onset and Resolution sudden in onset 08/29/2016 None earache Onset of Symptom 1 weeks ago 08/29/2016 None sinusitis Location in the bilateral frontal sinuses 08/29/2016 None sinusitis Location in the bilateral maxillary sinuses 08/29/2016 None sinusitis Onset and Resolution gradual in onset 08/29/2016 None sinusitis Onset and Resolution ongoing 08/29/2016 None sinusitis Pertinent Findings facial pain 08/29/2016 None sinusitis Pertinent Findings fatigue 08/29/2016 None sinusitis Pertinent Findings headache 08/29/2016 None sinusitis Pertinent Findings sinus pain 08/29/2016 None sinusitis Pertinent Findings sinus pressure 08/29/2016 None sinusitis Quality acute 08/29/2016 None sinusitis Quality pain 08/29/2016 None sinusitis Quality pressure 08/29/2016 None sinusitis Severity moderate 08/29/2016 None cough Location in the throat 06/12/2016 None cough Quality dry None cough Quality constant 06/12/2016 None cough Quality productive 06/12/2016 None cough Onset and Resolution sudden in onset 06/12/2016 None cough Onset of Symptom 4 days ago 06/12/2016 None cough Frequency of Episodes daily 06/12/2016 None cough Pertinent Findings chest discomfort 06/12/2016 None sinus congestion Location on both sides 06/12/2016 None sinus congestion Quality fullness 06/12/2016 None sinus congestion Quality constant 06/12/2016 None sinus congestion Onset and Resolution sudden in onset 06/12/2016 None fever Quality intermittent 05/04/2016 None fever Onset and Resolution sudden in onset 05/04/2016 None fever Onset of Symptom 4 days ago 05/04/2016 None fever Temperature 104 degrees 05/04/2016 None fever Frequency of Episodes daily 05/04/2016 None fever Pertinent Findings Denies dizziness 05/04/2016 None fever Pertinent Findings Denies upper respiratory tract symptoms 05/04/2016 None fever Triggers no known associated factors 05/04/2016 None fever Alleviating Factors medication 05/04/2016 None hypertension Quality chronic 03/30/2016 None hypertension Onset and Resolution ongoing 03/30/2016 None hypertension Onset of Symptom during adulthood 03/30/2016 None hypertension Frequency of Episodes unchanged 03/30/2016 None hypertension Triggers stress 03/30/2016 None hypertension Alleviating Factors medication 03/30/2016 None hypertension Pertinent Findings Denies dizziness 03/30/2016 None hypertension Pertinent Findings Denies dyspnea 03/30/2016 None hypertension Pertinent Findings edema 03/30/2016 None diabetes mellitus Quality NIDDM 03/30/2016 None diabetes mellitus Alleviating Factors medication 03/30/2016 None diabetes mellitus Exacerbating Factors diet 03/30/2016 None diabetes mellitus Nutrition regular diet 03/30/2016 None diabetes mellitus Nutrition ADA diet 03/30/2016 None diabetes mellitus Pertinent Findings Denies dizziness 03/30/2016 None diabetes mellitus Pertinent Findings Denies dyspnea 03/30/2016 None diabetes mellitus Pertinent Findings Denies nausea 03/30/2016 None knee pain Location on the right 03/30/2016 None knee pain Quality intermittent 03/30/2016 None knee pain Alleviating Factors rest 03/30/2016 None knee pain Exacerbating Factors exertion 03/30/2016 None knee pain Quality improving 03/30/2016 None knee pain Pertinent Findings pain with movement 03/30/2016 None knee pain Limitation on Activities allows weight bearing activity 03/30/2016 None hypertension Blood Pressure Values patient checking blood pressure at home - did not bring in readings 03/30/2016 None hypertension Exacerbating Factors change in dietary habits 03/30/2016 None diabetes mellitus Test results Pt checking blood glucose readings, did not bring results to clinic 03/30/2016 None diabetes mellitus Glucose monitoring fasting 03/30/2016 None hypertension Quality chronic 11/30/2015 None hypertension Onset and Resolution ongoing 11/30/2015 None hypertension Onset of Symptom during adulthood 11/30/2015 None hypertension Frequency of Episodes unchanged 11/30/2015 None hypertension Triggers stress 11/30/2015 None hypertension Alleviating Factors medication 11/30/2015 None hypertension Pertinent Findings Denies decreased energy 11/30/2015 None hypertension Pertinent Findings Denies dizziness 11/30/2015 None hypertension Pertinent Findings Denies dyspnea 11/30/2015 None hypertension Pertinent Findings edema 11/30/2015 In the ankles; typically at the end of the day hypertension Pertinent Findings Denies palpitations 11/30/2015 None diabetes mellitus Quality NIDDM 11/30/2015 None diabetes mellitus Alleviating Factors medication 11/30/2015 None diabetes mellitus Exacerbating Factors diet 11/30/2015 None diabetes mellitus Nutrition regular diet 11/30/2015 None diabetes mellitus Nutrition ADA diet 11/30/2015 None diabetes mellitus Pertinent Findings Denies dizziness 11/30/2015 None diabetes mellitus Pertinent Findings Denies dyspnea 11/30/2015 None diabetes mellitus Pertinent Findings Denies nausea 11/30/2015 None knee pain Location on the right 11/30/2015 None knee pain Quality intermittent 11/30/2015 seeing [facility] knee pain Alleviating Factors rest 11/30/2015 None knee pain Exacerbating Factors exertion 11/30/2015 None hypertension Blood Pressure Values pt checking blood pressure - see scanned document 11/30/2015 None diabetes mellitus Test results Pt checking blood glucose at home, see scanned readings 2015 None diabetes mellitus Glucose monitoring fasting 11/30/2015 None diabetes mellitus Glucose monitoring daily 11/30/2015 None cough Location in the lung 09/06/2015 None cough Quality productive 09/06/2015 green cough Onset of Symptom 2-3 days ago 09/06/2015 None cough Frequency of Episodes daily 09/06/2015 None cough Pertinent Findings Denies chest discomfort 09/06/2015 None cough Pertinent Findings Denies dyspnea 09/06/2015 None cough Pertinent Findings Denies fever 09/06/2015 None eye erythema Location on the right eye 09/06/2015 None eye erythema Quality constant 09/06/2015 None eye erythema Onset of Symptom 2-3 days ago 09/06/2015 None eye erythema Pertinent Findings eye discharge 09/06/2015 None eye erythema Pertinent Findings eye tearing 09/06/2015 None eye erythema Pertinent Findings facial erythema 09/06/2015 uner right eye eye erythema Pertinent Findings eyelid erythema 09/06/2015 None knee pain Location on the right 08/04/2015 None knee pain Quality acute 08/04/2015 None knee pain Quality chronic 08/04/2015 None knee pain Quality sharp pain 08/04/2015 None knee pain Onset and Resolution gradual in onset 08/04/2015 None knee pain Limitation on Activities moderately limits activities 08/04/2015 None knee pain Limitation on Activities able to do light activities without pain 08/04/2015 None knee pain Limitation on Activities restricts weight bearing activity 08/04/2015 None knee pain Severity moderate 08/04/2015 None knee pain Severity severe 08/04/2015 None knee pain Significant Medical Conditions obesity 08/04/2015 None knee pain Pertinent Findings Denies redness 08/04/2015 None knee pain Exacerbating Factors exertion 08/04/2015 None knee pain Exacerbating Factors weight bearing 08/04/2015 None cough Location in the throat 07/05/2015 None cough Quality productive 07/05/2015 None cough Onset and Resolution ongoing 07/05/2015 None cough Frequency of Episodes daily 07/05/2015 None cough Onset of Symptom 4 days ago 07/05/2015 None cough Pertinent Findings Denies chest discomfort 07/05/2015 None cough Pertinent Findings Denies fever 07/05/2015 None cough Pertinent Findings nasal congestion 07/05/2015 None cough Pertinent Findings Denies purulent sputum 07/05/2015 None cough Pertinent Findings Denies weakness 07/05/2015 None sinus congestion Onset and Resolution sudden in onset 07/05/2015 None sinus congestion Onset of Symptom 4 days ago 07/05/2015 None sinus congestion Pertinent Findings cough 07/05/2015 None sinus congestion Pertinent Findings Denies fever 07/05/2015 None cough Triggers known allergens 07/05/2015 None cough Alleviating Factors OTC medications 07/05/2015 None cough Pertinent Findings Denies dyspnea 07/05/2015 None hypertension Quality chronic 06/28/2015 None hypertension Onset and Resolution ongoing 06/28/2015 None hypertension Onset of Symptom during adulthood 06/28/2015 None hypertension Frequency of Episodes unchanged 06/28/2015 None hypertension Triggers stress 06/28/2015 None hypertension Alleviating Factors medication 06/28/2015 None hypertension Pertinent Findings Denies decreased energy 06/28/2015 None hypertension Pertinent Findings Denies dizziness 06/28/2015 None hypertension Pertinent Findings Denies dyspnea 06/28/2015 None hypertension Pertinent Findings edema 06/28/2015 In the ankles; typically at the end of the day hypertension Pertinent Findings Denies palpitations 06/28/2015 None diabetes mellitus Alleviating Factors medication 06/28/2015 None diabetes mellitus Exacerbating Factors diet 06/28/2015 None diabetes mellitus Pertinent Findings Denies dizziness 06/28/2015 None diabetes mellitus Pertinent Findings Denies dyspnea 06/28/2015 None diabetes mellitus Pertinent Findings Denies nausea 06/28/2015 None knee pain Location on the right 06/28/2015 None knee pain Quality intermittent 06/28/2015 seeing [facility] hypertension Blood Pressure Values patient checking blood pressure at home - did not bring in readings 06/28/2015 she reports 110 - 120/60's diabetes mellitus Quality NIDDM 06/28/2015 None diabetes mellitus Test results Pt checking blood glucose at home, see scanned readings 2014 None diabetes mellitus Glucose monitoring daily 06/28/2015 None diabetes mellitus Glucose monitoring fasting 06/28/2015 None diabetes mellitus Nutrition regular diet 06/28/2015 None diabetes mellitus Nutrition ADA diet 06/28/2015 None knee pain Quality stable 06/28/2015 None knee pain Exacerbating Factors exertion 06/28/2015 None knee pain Alleviating Factors rest 06/28/2015 None pruritus Location-Major on the upper body 06/28/2015 None pruritus Location-Major on the back 06/28/2015 None pruritus Location-Trunk on the left mid back 06/28/2015 None pruritus Location-Extremities on the left arm 06/28/2015 None pruritus Quality new 06/28/2015 None hypertension Quality chronic 02/23/2015 None hypertension Onset and Resolution ongoing 02/23/2015 None hypertension Onset of Symptom during adulthood 02/23/2015 None hypertension Blood Pressure Values pt checking blood pressure - see scanned document 02/23/2015 not taking occ 120s/70's hypertension Severity not consistently severe symptoms, the symptoms fluctuate from no symptoms to anxiety and headaches 02/23/2015 None hypertension Frequency of Episodes unchanged 02/23/2015 None hypertension Triggers stress 02/23/2015 None hypertension Alleviating Factors medication 02/23/2015 None hypertension Pertinent Findings Denies decreased energy 02/23/2015 None hypertension Pertinent Findings Denies dizziness 02/23/2015 None hypertension Pertinent Findings Denies dyspnea 02/23/2015 None hypertension Pertinent Findings edema 02/23/2015 None hypertension Pertinent Findings Denies palpitations 02/23/2015 None diabetes mellitus Severity moderate 02/23/2015 she is having night sweats-- 178 this am. diabetes mellitus Alleviating Factors medication 02/23/2015 Victoza 1.2 diabetes mellitus Exacerbating Factors diet 02/23/2015 None diabetes mellitus Pertinent Findings Denies dizziness 02/23/2015 None diabetes mellitus Pertinent Findings Denies dyspnea 02/23/2015 None diabetes mellitus Pertinent Findings Denies nausea 02/23/2015 None knee pain Location on the right 02/23/2015 None knee pain Quality intermittent 02/23/2015 seeing [facility] diabetes mellitus Test results HgbA1c level 7.6 02/23/2015 None hypertension Quality chronic 01/08/2015 None hypertension Onset and Resolution ongoing 01/08/2015 None hypertension Onset of Symptom during adulthood 01/08/2015 None hypertension Blood Pressure Values pt checking blood pressure - see scanned document 01/08/2015 not taking occ 120s/70's hypertension Severity not consistently severe symptoms, the symptoms fluctuate from no symptoms to anxiety and headaches 01/08/2015 None hypertension Frequency of Episodes unchanged 01/08/2015 None hypertension Triggers stress 01/08/2015 None hypertension Alleviating Factors medication 01/08/2015 None hypertension Pertinent Findings Denies decreased energy 01/08/2015 None hypertension Pertinent Findings Denies dizziness 01/08/2015 None hypertension Pertinent Findings Denies dyspnea 01/08/2015 None hypertension Pertinent Findings edema 01/08/2015 None hypertension Pertinent Findings Denies palpitations 01/08/2015 None diabetes mellitus Severity moderate 01/08/2015 she is having night sweats diabetes mellitus Alleviating Factors medication 01/08/2015 None diabetes mellitus Exacerbating Factors diet 01/08/2015 None diabetes mellitus Pertinent Findings Denies dizziness 01/08/2015 None diabetes mellitus Pertinent Findings Denies dyspnea 01/08/2015 None diabetes mellitus Pertinent Findings Denies nausea 01/08/2015 None diabetes mellitus Glucose monitoring daily 01/08/2015 185-220 hypertension Quality chronic 09/24/2014 None hypertension Onset and Resolution ongoing 09/24/2014 None hypertension Onset of Symptom during adulthood 09/24/2014 None hypertension Blood Pressure Values pt checking blood pressure - see scanned document 09/24/2014 not taking occ 120s/70's hypertension Severity not consistently severe symptoms, the symptoms fluctuate from no symptoms to anxiety and headaches 09/24/2014 None hypertension Frequency of Episodes unchanged 09/24/2014 None hypertension Triggers stress 09/24/2014 None hypertension Alleviating Factors medication 09/24/2014 None hypertension Pertinent Findings Denies decreased energy 09/24/2014 None hypertension Pertinent Findings Denies dizziness 09/24/2014 None hypertension Pertinent Findings Denies dyspnea 09/24/2014 None hypertension Pertinent Findings edema 09/24/2014 None hypertension Pertinent Findings Denies palpitations 09/24/2014 None diabetes mellitus Severity moderate 09/24/2014 None diabetes mellitus Alleviating Factors medication 09/24/2014 None diabetes mellitus Exacerbating Factors diet 09/24/2014 None diabetes mellitus Pertinent Findings Denies dizziness 09/24/2014 None diabetes mellitus Pertinent Findings Denies dyspnea 09/24/2014 None diabetes mellitus Pertinent Findings Denies nausea 09/24/2014 None diabetes mellitus Glucose monitoring daily 09/24/2014 AM low back and leg pain Location lumbar spine 05/11/2014 None low back and leg pain Radiating the left lateral thigh 05/11/2014 None low back and leg pain Quality sharp pain 05/11/2014 None low back and leg pain Limitation on Activities allows weight bearing activity 05/11/2014 None low back and leg pain Onset and Resolution ongoing 05/11/2014 None low back and leg pain Onset of Symptom 1 weeks ago 05/11/2014 None low back and leg pain Severity moderate 05/11/2014 None low back and leg pain Extent of Symptoms gait disturbance 05/11/2014 None low back and leg pain Frequency of Episodes unchanged 05/11/2014 None low back and leg pain Mechanism of injury unknown 05/11/2014 None low back and leg pain Alleviating Factors rest 05/11/2014 None low back and leg pain Alleviating Factors physical therapy 05/11/2014 None low back and leg pain Initial treatment medication 05/11/2014 advil and hydrocodone low back and leg pain Sports Participation not significant 05/11/2014 None low back and leg pain Triggers activity 05/11/2014 None skin lesion Onset of Symptom 2 months ago 05/01/2014 None skin lesion Alleviating Factors position change 05/01/2014 None skin lesion Pertinent Findings Denies fever 05/01/2014 None skin lesion Quality enlarging 05/01/2014 None skin lesion Quality scabbed 05/01/2014 None hypertension Blood Pressure Values pt checking blood pressure - see scanned document 04/03/2014 not taking occ 120s/70's hypertension Pertinent Findings Denies dizziness 04/03/2014 None hypertension Pertinent Findings Denies dyspnea 04/03/2014 None hypertension Pertinent Findings edema 04/03/2014 None hypertension Pertinent Findings Denies decreased energy 04/03/2014 None hypertension Pertinent Findings Denies palpitations 04/03/2014 None diabetes mellitus Test results Pt checking blood glucose at home, see scanned readings 2013 None diabetes mellitus Exercise minimal exercise 04/03/2014 None diabetes mellitus Pertinent Findings Denies dizziness 04/03/2014 None diabetes mellitus Pertinent Findings Denies dyspnea 04/03/2014 None diabetes mellitus Pertinent Findings Denies nausea 04/03/2014 None diabetes mellitus Severity moderate 04/03/2014 None diabetes mellitus Test results HgbA1c level 6.6 04/03/2014 None diabetes mellitus Blood glucose levels greater than 120 04/03/2014 None diabetes mellitus Glucose monitoring daily 04/03/2014 None diabetes mellitus Alleviating Factors medication 04/03/2014 None diabetes mellitus Exacerbating Factors diet 04/03/2014 None hypertension Quality chronic 04/03/2014 None hypertension Onset and Resolution ongoing 04/03/2014 None hypertension Onset of Symptom during adulthood 04/03/2014 None hypertension Severity not consistently severe symptoms, the symptoms fluctuate from no symptoms to anxiety and headaches 04/03/2014 None hypertension Frequency of Episodes unchanged 04/03/2014 None hypertension Alleviating Factors medication 04/03/2014 None hypertension Triggers stress 04/03/2014 None diabetes mellitus Quality chronic 11/24/2013 None diabetes mellitus Quality stable 11/24/2013 None diabetes mellitus Test results Pt checking blood glucose at home, see scanned readings 2013 None diabetes mellitus Onset of Symptom onset as an adult 11/24/2013 None diabetes mellitus Severity mild 11/24/2013 None diabetes mellitus Pertinent Findings Denies behavioral changes 11/24/2013 None diabetes mellitus Pertinent Findings Denies dizziness 11/24/2013 None diabetes mellitus Pertinent Findings Denies dyspnea 11/24/2013 None diabetes mellitus Pertinent Findings Denies lethargy 11/24/2013 None diabetes mellitus Quality non-insulin dependent 11/24/2013 None diabetes mellitus Nutrition ADA diet 11/24/2013 None diabetes mellitus Test results Pt checking blood glucose readings, did not bring results to clinic 07/28/2013 on victoza and thinks it is doing well edema Quality chronic 07/28/2013 None edema Quality painless 07/28/2013 None edema Quality improving 07/28/2013 None diabetes mellitus Onset of Symptom onset as an adult 07/28/2013 None diabetes mellitus Quality non-insulin dependent 07/28/2013 None diabetes mellitus Blood glucose levels pt reports blood sugar running in the 90-125 range. 2012 None diabetes mellitus Nutrition ADA diet 07/28/2013 None diabetes mellitus Exercise no exercise 07/28/2013 None diabetes mellitus Pertinent Findings Denies dizziness 07/28/2013 None diabetes mellitus Pertinent Findings Denies increased hunger 07/28/2013 pt reports that her appetite has decreased. edema Onset and Resolution improved during the day 07/28/2013 None edema Pertinent Findings Denies back pain 07/28/2013 None edema Pertinent Findings Denies dyspnea 07/28/2013 None edema Pertinent Findings Denies limb pain / tenderness 07/28/2013 None edema Triggers standing position 07/28/2013 None edema Triggers prolonged sitting 07/28/2013 None edema Alleviating Factors recumbency 07/28/2013 and compression socks diabetes mellitus Quality chronic 06/16/2013 None diabetes mellitus Test results Pt checking blood glucose readings, did not bring results to clinic 06/16/2013 None edema Quality chronic 06/16/2013 None edema Quality painless 06/16/2013 None edema Quality pitting 06/16/2013 None edema Location on both legs 06/16/2013 None edema Location on both ankles 06/16/2013 None edema Pertinent Findings back pain 06/16/2013 None edema Limitation on Activities moderately limits activities 06/16/2013 None diabetes mellitus Onset of Symptom onset as an adult 06/16/2013 None diabetes mellitus Severity moderate 06/16/2013 None diabetes mellitus Pertinent Findings Denies dyspnea 06/16/2013 None diabetes mellitus Exercise no exercise 06/16/2013 None diabetes mellitus Alleviating Factors medication 06/16/2013 None edema Quality acute None edema Onset of Symptom 2 months ago 01/22/2013 None edema Quality pitting 01/22/2013 None edema Quality worsening 01/22/2013 None edema Pertinent Findings Denies dyspnea 01/22/2013 None diabetes mellitus Quality chronic 01/22/2013 None diabetes mellitus Quality non-insulin dependent 01/22/2013 None diabetes mellitus Test results Pt checking blood glucose readings, did not bring results to clinic 01/22/2013 None skin lesion Quality scabbed 01/22/2013 None skin lesion Quality soft 01/22/2013 None skin lesion Onset and Resolution gradual in onset 01/22/2013 None skin lesion Location on the right cheek 01/22/2013 [place] area edema Quality painful 01/22/2013 None edema Quality intermittent 01/22/2013 None hypertension Quality chronic 01/22/2013 None hypertension Onset and Resolution ongoing 01/22/2013 None hypertension Onset of Symptom during adulthood 01/22/2013 None hypertension Blood Pressure Values pt checking blood pressure - see scanned document 01/22/2013 None hypertension Severity not consistently severe symptoms, the symptoms fluctuate from no symptoms to anxiety and headaches 01/22/2013 None hypertension Frequency of Episodes unchanged 01/22/2013 None hypertension Triggers stress 01/22/2013 and pain hypertension Alleviating Factors medication 01/22/2013 None hypertension Pertinent Findings Denies dyspnea 01/22/2013 None hypertension Pertinent Findings Denies edema 01/22/2013 None diabetes mellitus Alleviating Factors medication 01/22/2013 None diabetes mellitus Alleviating Factors diet 01/22/2013 None hip pain Location on the left 10/02/2012 None hip pain Location on the right 10/02/2012 None hip pain Quality sharp pain 10/02/2012 None low back and leg pain Location on both sides 10/02/2012 None low back and leg pain Location lumbar spine 10/02/2012 None low back and leg pain Radiating the left buttock 10/02/2012 None low back and leg pain Radiating the right buttock 10/02/2012 None low back and leg pain Quality sharp pain 10/02/2012 None low back and leg pain Quality aching 10/02/2012 None low back and leg pain Alleviating Factors medications 10/02/2012 has taken aleve with no relief. low back and leg pain Severity moderate 10/02/2012 None low back and leg pain Radiating the left posterior thigh 10/02/2012 None low back and leg pain Limitation on Activities allows weight bearing activity 10/02/2012 None low back and leg pain Extent of Symptoms perianal numbness 10/02/2012 None low back and leg pain Frequency of Episodes increasing 10/02/2012 None low back and leg pain Triggers activity 10/02/2012 states she has been "tugging" on her alot over the weekend but has no choice not to. low back and leg pain Pertinent Findings Denies bowel disturbance 10/02/2012 None low back and leg pain Pertinent Findings Denies bladder disturbance 10/02/2012 None low back and leg pain Pertinent Findings Denies chills 10/02/2012 None low back and leg pain Pertinent Findings pain with movement 10/02/2012 None low back and leg pain Pertinent Findings Denies extremity numbness 10/02/2012 None low back and leg pain Pertinent Findings Denies extremity weakness 10/02/2012 None cough Onset and Resolution ongoing 08/06/2012 None cough Onset of Symptom 2 weeks ago 08/06/2012 None cough Quality dry 02/2013 None cough Quality hacking 08/06/2012 worse at night cough Limitation on Activities does not limit activities 08/06/2012 None cough Frequency of Episodes decreasing 08/06/2012 None cough Triggers no known associated factors 08/06/2012 None hip pain Location on the left 07/10/2012 None hip pain Quality tenderness 07/10/2012 None hip pain Quality worsening 07/10/2012 None hip pain Onset of Symptom 2-3 weeks ago 07/10/2012 but has worsened in the past 24 -48 hours. hip pain Limitation on Activities allows ambulation 07/10/2012 None hip pain Severity moderate 07/10/2012 None hip pain Radiating radiates 07/10/2012 into the buttock and down lateral left thigh hip pain Pertinent Findings pain at rest 07/10/2012 None hip pain Pertinent Findings pain with movement 07/10/2012 None hypertension Quality chronic 07/04/2012 None hypertension Onset and Resolution ongoing 07/04/2012 None hypertension Blood Pressure Values pt checking blood pressure - see scanned document 07/04/2012 None diabetes mellitus Quality non-insulin dependent 07/04/2012 None diabetes mellitus Quality chronic 07/04/2012 None diabetes mellitus Test results Pt checking blood glucose at home, see scanned readings 2011 None hypertension Onset of Symptom during adulthood 07/04/2012 None hypertension Severity not consistently severe symptoms, the symptoms fluctuate from no symptoms to anxiety and headaches 07/04/2012 None hypertension Frequency of Episodes unchanged 07/04/2012 None hypertension Triggers stress 07/04/2012 and pain hypertension Alleviating Factors medication 07/04/2012 None hypertension Pertinent Findings Denies dyspnea 07/04/2012 None hypertension Pertinent Findings Denies edema 07/04/2012 None diabetes mellitus Alleviating Factors medication 07/04/2012 None diabetes mellitus Alleviating Factors diet 07/04/2012 None diabetes mellitus Alleviating Factors medication 05/22/2012 None diabetes mellitus Alleviating Factors diet 05/22/2012 None diabetes mellitus Exercise no exercise 05/22/2012 None hypertension Quality chronic 05/22/2012 None hypertension Onset and Resolution ongoing 05/22/2012 None diabetes mellitus Quality chronic 05/22/2012 None diabetes mellitus Test results Pt checking blood glucose at home, see scanned readings 2011 None hypertension Blood Pressure Values pt checking blood pressure - see scanned document 05/22/2012 None hypertension Onset of Symptom during adulthood 05/22/2012 None hypertension Severity not consistently severe symptoms, the symptoms fluctuate from no symptoms to anxiety and headaches 05/22/2012 None hypertension Frequency of Episodes unchanged 05/22/2012 None hypertension Triggers stress 05/22/2012 and pain hypertension Alleviating Factors medication 05/22/2012 None hypertension Pertinent Findings Denies dyspnea 05/22/2012 None hypertension Pertinent Findings Denies edema 05/22/2012 None diabetes mellitus Blood glucose levels between 60 and 120 05/22/2012 None diabetes mellitus Glucose monitoring daily 05/22/2012 None diabetes mellitus Severity moderate 04/22/2012 None diabetes mellitus Alleviating Factors medication 04/22/2012 None diabetes mellitus Alleviating Factors diet 04/22/2012 None diabetes mellitus Exacerbating Factors diet 04/22/2012 None blood pressure followup Quality chronic 04/22/2012 None blood pressure followup Blood Pressure Values pt checking blood pressure at home, did not bring in to clinic 04/22/2012 None blood pressure followup Severity mild 04/22/2012 None blood pressure followup Significant Medical Conditions diabetes 04/22/2012 None blood pressure followup Triggers stress 04/22/2012 None blood pressure followup Alleviating Factors medication 04/22/2012 None blood pressure followup Pertinent Findings Denies muscle weakness 04/22/2012 None blood pressure followup Pertinent Findings Denies tachycardia 04/22/2012 None back pain Location thoracic spine 04/22/2012 None back pain Frequency of Episodes increasing 04/22/2012 states she would like an xray back pain Quality acute 04/22/2012 None back pain Quality intermittent 04/22/2012 None back pain Onset of Symptom 1-2 years ago 04/22/2012 None diabetes mellitus Blood glucose levels between 60 and 120 04/22/2012 None diabetes mellitus Glucose monitoring daily 04/22/2012 None diabetes mellitus Nutrition ADA diet 04/22/2012 None diabetes mellitus Exercise no exercise 04/22/2012 None sciatica Onset of Symptom 5 days ago 12/28/2011 None sciatica Limitation on Activities moderately limits activities 12/28/2011 None sciatica Alleviating Factors medication 12/28/2011 pt states that ramya "takes the edge off" sciatica Quality constant 12/28/2011 States it radiates down her right leg. diabetes mellitus Test results Pt checking blood glucose readings, did not bring results to clinic 12/20/2011 None blood pressure followup Blood Pressure Values pt checking blood pressure at home, did not bring in to clinic 12/20/2011 None blood pressure followup Alleviating Factors medication 12/20/2011 None blood pressure followup Quality chronic 12/20/2011 None blood pressure followup Severity mild 12/20/2011 None blood pressure followup Significant Medical Conditions diabetes 12/20/2011 None blood pressure followup Triggers stress 12/20/2011 None blood pressure followup Pertinent Findings Denies muscle weakness 12/20/2011 None blood pressure followup Pertinent Findings Denies tachycardia 12/20/2011 None diabetes mellitus Exacerbating Factors diet 12/20/2011 None diabetes mellitus Alleviating Factors diet 12/20/2011 None diabetes mellitus Alleviating Factors medication 12/20/2011 None diabetes mellitus Severity moderate 12/20/2011 None diabetes mellitus Glucose monitoring daily 08/23/2011 occasionally bid diabetes mellitus Blood glucose levels between 60 and 120 08/23/2011 None blood pressure followup Blood Pressure Values pt checking blood pressure at home, did not bring in to clinic 08/23/2011 pt states she takes it occasionally back pain Location in the left lower back area 08/23/2011 None back pain Quality dull 08/23/2011 None back pain Quality aching 08/23/2011 None blood pressure followup Quality chronic 08/23/2011 None blood pressure followup Severity mild 08/23/2011 None blood pressure followup Significant Medical Conditions diabetes 08/23/2011 None blood pressure followup Triggers stress 08/23/2011 None blood pressure followup Alleviating Factors medication 08/23/2011 None blood pressure followup Pertinent Findings Denies tachycardia 08/23/2011 None blood pressure followup Pertinent Findings Denies muscle weakness 08/23/2011 None diabetes mellitus Quality chronic 08/23/2011 None diabetes mellitus Severity moderate 08/23/2011 None diabetes mellitus Alleviating Factors diet 08/23/2011 None diabetes mellitus Alleviating Factors medication 08/23/2011 None diabetes mellitus Exercise minimal exercise 08/23/2011 None diabetes mellitus Exacerbating Factors diet 08/23/2011 None back pain Onset and Resolution worse during the day 08/23/2011 None back pain Onset and Resolution ongoing 08/23/2011 None back pain Triggers activity 08/23/2011 None back pain Triggers twisting 08/23/2011 None back pain Severity mild 08/23/2011 None back pain Location in the right lower back area 05/23/2011 None back pain Quality acute 05/23/2011 None back pain Onset and Resolution sudden in onset 05/23/2011 None back pain Onset of Symptom _ days ago 05/23/2011 None back pain Frequency of Episodes increasing 05/23/2011 None back pain Triggers no known associated factors 05/23/2011 None back pain Alleviating Factors medication 05/23/2011 None back pain Initial treatment heat 05/23/2011 None back pain Initial treatment medication 05/23/2011 None back pain Radiating down the right leg 05/23/2011 None back pain Severity moderate 05/23/2011 None vision change Location in the right eye 04/26/2011 injection in eye yesterday vision change Quality blurred vision 04/26/2011 None vision change Onset and Resolution ongoing 04/26/2011 None vision change Severity mild 04/26/2011 None vision change Triggers no known associated factors 04/26/2011 None Advance Directives No Advance Directive data Encounters Encounter Performer Location Codes Date EST. PATIENT, LEVEL III Diagnosis: Sacrococcygeal disorders, not elsewhere classified[ICD10: M53.3] Diagnosis: Low back pain[ICD10: M54.5] Diagnosis: Sciatica, right side[ICD10: M54.31] Yady Garcia MD, [facility] CPT-4: 27089 05/29/2018 ([id number]) 80512 EST. PATIENT, LEVEL IV Diagnosis: Type 2 diabetes mellitus without complications[ICD10: E11.9] Diagnosis: Chronic kidney disease, stage 3 (moderate)[ICD10: N18.3] Diagnosis: Essential (primary) hypertension[ICD10: I10] Diagnosis: Other vitamin B12 deficiency anemias[ICD10: D51.8] [facility] CPT-4: 90946 05/07/2018 ([id number]) 71336 EST. PATIENT, LEVEL IV Diagnosis: Type 2 diabetes mellitus without complications[ICD10: E11.9] Diagnosis: Essential (primary) hypertension[ICD10: I10] Diagnosis: Chronic atrial fibrillation[ICD10: I48.2] Daisy Garcia MD, [facility] CPT-4: 73440 01/01/2018 ([id number]) 32175 EST. 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 PATIENT, LEVEL IV Diagnosis: Type 2 diabetes mellitus with hyperglycemia[ICD10: E11.65] Diagnosis: Essential (primary) hypertension[ICD10: I10] Diagnosis: Pain in left knee[ICD10: M25.562] Diagnosis: Other vitamin B12 deficiency anemias[ICD10: D51.8] Daisy Garcia MD, [facility] CPT-4: 71332 12/18/2017 [id number] EST. PATIENT, LEVEL III Diagnosis: Pain in left knee[ICD10: M25.562] Yady Garcia MD, [facility] CPT -4: 33734 12/13/2017 ([id number]) 40009 EST. PATIENT, LEVEL IV Diagnosis: Type 2 diabetes mellitus without complications[ICD10: E11.9] Diagnosis: Essential (primary) hypertension[ICD10: I10] Diagnosis: Other vitamin B12 deficiency anemias[ICD10: D51.8] Diagnosis: Allergic rhinitis due to animal (cat) (dog) hair and dander[ICD10: J30.81] Daisy Garcia MD, [facility] CPT-4: 23409 2016 ([id number]) 93944 EST. 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 PATIENT, LEVEL IV Diagnosis: Type 2 diabetes mellitus without complications[ICD10: E11.9] Diagnosis: Essential (primary) hypertension[ICD10: I10] Diagnosis: Chronic atrial fibrillation[ICD10: I48.2] Daisy Garcia MD, [facility] CPT-4: 64950 04/16/2017 ([id number]) 14358 EST. PATIENT, LEVEL III Diagnosis: Sciatica, left side[ICD10: M54.32] Diagnosis: Sacroiliitis, not elsewhere classified[ICD10: M46.1] Chantell Garcia MD, [facility] CPT-4: 05537 02/23/2017 ([id number]) 34178 EST. PATIENT, LEVEL IV Diagnosis: Type 2 diabetes mellitus without complications[ICD10: E11.9] Diagnosis: Essential (primary) hypertension[ICD10: I10] Daisy Garcia MD [facility] CPT-4: 71701 12/26/2016 ([id number]) 01147 EST. PATIENT, LEVEL III Diagnosis: Cough[ICD10: R05] Diagnosis: Acute bronchitis, unspecified[ICD10: J20.9] Chantell Garcia MD, [facility] CPT-4: 63330 09/07/2016 ([id number]) 47786 EST. PATIENT, LEVEL IV Diagnosis: Type 2 diabetes mellitus without complications[ICD10: E11.9] Diagnosis: Cough[ICD10: R05] Diagnosis: Acute laryngopharyngitis[ICD10: J06.0] Diagnosis: Acute recurrent maxillary sinusitis[ICD10: J01.01] Daisy Garcia MD, [facility] CPT-4: 32088 08/29/2016 60377 EST. PATIENT, LEVEL IV Diagnosis: Other allergic rhinitis[ICD10: J30.89] Diagnosis: Other vitamin B12 deficiency anemias[ICD10: D51.8] Yady Garcia MD, [facility] CPT-4: 15742 06/12/2016 ([id number]) 40224 EST. PATIENT, LEVEL III Diagnosis: Urinary tract infection, site not specified[ICD10: N39.0] Diagnosis: Fever, unspecified[ICD10: R50.9] Diagnosis: Other vitamin B12 deficiency anemias[ICD10: D51.8] Chantell Garcia MD, [facility] CPT-4: 37639 05/04/2016 ([id number]) 70905 EST. PATIENT, LEVEL IV Diagnosis: Type 2 diabetes mellitus with diabetic autonomic (poly)neuropathy[ ICD10: E11.43] Diagnosis: Essential (primary) hypertension[ICD10: I10] Daisy Garcia MD, [facility] CPT-4: 27149 03/30/2016 ([id number]) 61178 EST. PATIENT, LEVEL IV Diagnosis: Type 2 diabetes mellitus with hyperglycemia[ICD10: E11.65] Diagnosis: Essential (primary) hypertension[ICD10: I10] Daisy Garcia MD, [facility] CPT-4: 66748 11/30/2015 ([id number]) 30427 EST. PATIENT, LEVEL III Diagnosis: Acute recurrent maxillary sinusitis[ICD10: J01.01] Diagnosis: Unspecified acute conjunctivitis, right eye[ICD10: H10.31] Diagnosis: Vitamin B12 deficiency anemia, unspecified[ICD10: D51.9] Chantell Garcia MD , [facility] CPT-4: 69382 09/06/2015 95556 EST. PATIENT, LEVEL III Diagnosis: Pain in right knee[ICD10: M25.561] Diagnosis: Essential (primary) hypertension[ICD10: I10] Diagnosis: Vitamin B12 deficiency anemia, unspecified[ICD10: D51.9] Yady Garcia MD, [facility] CPT-4: 76977 08/04/2015 ([id number]) 10248 EST. PATIENT, LEVEL III Diagnosis: Streptococcal pharyngitis[ICD10: J02.0] Diagnosis: Acute recurrent maxillary sinusitis[ICD10: J01.01] Chantell Garcia MD, [facility] CPT-4: 62379 07/05/2015 ([id number]) 48835 EST. PATIENT, LEVEL IV Diagnosis: Type 2 diabetes mellitus with hyperglycemia[ICD10: E11.65] Diagnosis: Essential (primary) hypertension[ICD10: I10] Diagnosis: Vitamin B12 deficiency anemia, unspecified[ICD10: D51.9] Daisy Garcia MD, [facility] CPT-4: 51758 06/28/2015 ([id number]) 18024 EST. PATIENT, LEVEL IV Diagnosis: DM W/O COMPLICATION TYPE II, UNCONTROLLED[ICD9: 250.02] Diagnosis: ESSENTIAL HYPERTENSION[ICD9: 401.9] Diagnosis: Iron deficiency[ICD9: 280.9] Diagnosis: OTH SCREENING MAMMOGRAM[ICD9: V76.12] Diagnosis: B12 deficiency[ICD9: 266.2] Daisy Garcia MD, [facility] CPT- 4: 65486 02/23/2015 ([id number]) 02541 EST. PATIENT, LEVEL IV Diagnosis: DM W/O COMPLICATION TYPE II, UNCONTROLLED[ICD9: 250.02] Diagnosis: ESSENTIAL HYPERTENSION[ICD9: 401.9] Diagnosis: Right knee pain[ICD9: 719.46] Diagnosis: B12 deficiency[ICD9: 266.2] Chantell Garcia MD, [facility] CPT-4: 69272 01/08/2015 ([id number]) 59828 EST. PATIENT, LEVEL IV Diagnosis: DM W/O COMPLICATION TYPE II, UNCONTROLLED[ICD9: 250.02] Diagnosis: ESSENTIAL HYPERTENSION[ICD9: 401.9] Diagnosis: Iron deficiency[ICD9: 280.9] Daisy Garcia MD, [facility] CPT- 4: 78136 09/24/2014 ([id number]) 31685 EST. PATIENT, LEVEL III Diagnosis: Sacroiliitis[ICD9: 720.2] Diagnosis: Left sided sciatica[ICD9: 724.3] Chantell Garcia MD, [facility] CPT-4: 11932 05/11/2014 ([id number]) 88260 EST. PATIENT, LEVEL III Diagnosis: CELLULITIS OF BUTTOCK[ICD9: 682.5] Daisy Garcia MD, [facility] CPT-4: 21576 05/01/2014 32696 EST. PATIENT, LEVEL IV Diagnosis: ESSENTIAL HYPERTENSION[ICD9: 401.9] Diagnosis: DIABETES TYPE II[ICD9: 250.00] Diagnosis: Iron deficiency[ICD9: 280.9] Diagnosis: LUMBAGO[ICD9: 724.2] Daisy Garcia MD, [facility] CPT-4: 96759 04/03/2014 ([id number]) 96406 EST. PATIENT, LEVEL IV Diagnosis: ESSENTIAL HYPERTENSION[SNOMED: 26001385] Diagnosis: DIABETES TYPE II[SNOMED: 129293595] Diagnosis: ANEMIA[ICD9: 285.9] Diagnosis: Iron deficiency[ICD9: 280.9] Daisy Garcia MD, [facility] CPT- 4: 46617 11/24/2013 ([id number]) 64357 EST. PATIENT, LEVEL IV Diagnosis: ESSENTIAL HYPERTENSION[SNOMED: 89593835] Diagnosis: DIABETES TYPE II[SNOMED: 342918245] Diagnosis: EDEMA[ICD9: 782.3] Daisy Garcia MD, [facility] CPT-4: 97877 07/28/2013 ([id number]) 63148 EST. PATIENT, LEVEL IV Diagnosis: ESSENTIAL HYPERTENSION[SNOMED: 46028814] Diagnosis: DIABETES TYPE II[SNOMED: 303572274] Diagnosis: EDEMA[ICD9: 782.3] Diagnosis: B-COMPLEX DEFIC NEC[ICD9: 266.2] Daisy Garcia MD, [facility] CPT-4: 44475 06/16/2013 ([id number]) 71544 EST. PATIENT, LEVEL IV Diagnosis: ESSENTIAL HYPERTENSION[SNOMED: 88474579] Diagnosis: DIABETES TYPE II[SNOMED: 717111012] Diagnosis: EDEMA[ICD9: 782.3] Diagnosis: B-COMPLEX DEFIC NEC[ICD9: 266.2] Daisy Garcia MD, [facility] CPT-4: 16777 01/22/2013 ([id number]) 79181 EST. PATIENT, LEVEL III Diagnosis: Lumbago[ICD9: 724.2] Diagnosis: Sacroiliitis[ICD9: 720.2] Diagnosis: ESSENTIAL HYPERTENSION[SNOMED: 08475056] Daisy Garcia MD, [facility] CPT-4: 85387 10/02/2012 ([id number]) 20725 EST. PATIENT, LEVEL III Diagnosis: ACUTE URI[ICD9: 465.9] Daisy Garcia MD, [facility] CPT-4: 09587 08/06/2012 ([id number]) 08603 EST. PATIENT, LEVEL IV Diagnosis: ESSENTIAL HYPERTENSION[SNOMED: 89016316] Diagnosis: DIABETES TYPE II[SNOMED: 591994722] Diagnosis: ANEMIA[ICD9: 285.9] Daisy Garcia MD, [facility] CPT-4: 13371 07/04/2012 ([id number]) 09486 EST. PATIENT, LEVEL IV Diagnosis: ESSENTIAL HYPERTENSION[SNOMED: 39677139] Diagnosis: DIABETES TYPE II[SNOMED: 190568270] Diagnosis: B-COMPLEX DEFIC NEC[ICD9: 266.2] Daisy Garcia MD, [facility] CPT-4: 44849 05/22/2012 ([id number]) 44851 EST. PATIENT, LEVEL IV Diagnosis: ESSENTIAL HYPERTENSION[SNOMED: 75378543] Diagnosis: DIABETES TYPE II[SNOMED: 129302609] Diagnosis: LUMBAGO[ICD9: 724.2] Diagnosis: B-COMPLEX DEFIC NEC[ICD9: 266.2] Daisy Garcia MD, [facility] CPT-4: 72036 04/22/2012 53782 EST. PATIENT, LEVEL III Diagnosis: Sciatica of right side[ICD9: 724.3] Diagnosis: Sacroiliitis[ICD9: 720.2] Chantell Garcia MD, [facility] CPT-4: 91563 12/28/2011 ([id number]) 89267 EST. PATIENT, LEVEL IV Diagnosis: DIABETES TYPE II[SNOMED: 515904970] Diagnosis: ESSENTIAL HYPERTENSION[SNOMED: 09514690] Daisy Garcia MD, [facility] CPT-4: 69759 12/20/2011 ([id number]) 63144 EST. PATIENT, LEVEL IV Diagnosis: ESSENTIAL HYPERTENSION[SNOMED: 51191508] Diagnosis: DIABETES TYPE II[SNOMED: 481288077] Diagnosis: PAIN IN LIMB[ICD9: 729.5] Diagnosis: LUMBAGO[ICD9: 724.2] Diagnosis: Sacroiliitis[ICD9: 720.2] Daisy Garcia MD, [facility] CPT-4: 49130 08/23/2011 90912 EST. PATIENT, LEVEL III Diagnosis: Sacroiliitis[ICD9: 720.2] Diagnosis: Right sided sciatica[ICD9: 724.3] Diagnosis: B-COMPLEX DEFIC NEC[ICD9: 266.2] Chantell Garcia MD, [facility] CPT-4: 66366 05/23/2011 51872 EST. PATIENT, LEVEL IV Diagnosis: DIABETES TYPE II[SNOMED: 224480846] Diagnosis: ESSENTIAL HYPERTENSION[SNOMED: 74923166] Diagnosis: Feces incontinence[ICD9: 787.60] [facility] CPT-4: 55303 04/26/2011 Plan of Care Planned Activity Notes Codes Status Date Visit Plan: Low back pain- The pt is to use prn antiinflammatories to manage acute pain. The patient is to call the office if the pain is worsening or does not improve. Joint Injection - Pt was given post - injection instructions. The pt has been advised to use anti-inflammatories post injection today, ice to the injected site, call if redness, warmth, or increased pain occurs at the site of injection. Sciatica- exercises discussed with the patient, pt to continue with antiinflammatories. Pt is to call if the symptoms do not improve or if they worsen. 05/29/2018 Appointment: Yady Harper WPtel: [address] [place], [place] [id number] (15 min) Moderate 05/29/2018 Patient Education: Patient Medication Summary Completed 05/29/2018 Patient Education: Back Pain Completed 05/29/2018 Patient Education: Patient Medication Summary Completed 05/20/2018 Visit Plan: Hypertension - well controlled - continue with current medications, continue with no added salt diet. Pt has been encouraged to exercise daily. The pt has been advised to call the office if there are any acute concerns about change in blood pressure readings at home. Diabetes Mellitus -improved-hgb a1c is down to 6.1%- I have recommended for the patient to have follow up labs prior to the next office visit. The patient has been instructed to continue with current medications as previously directed, continue with regular FSBS monitoring to assure continued control of diabetes. Pt to call for any acute concerns, complaints, or if the blood glucose readings are starting to become less controlled. CKD-stop NSAIDs-stay adequately hydrated and repeat bmp in 1 month non fasting 05/07/2018 Appointment: (15 min) Moderate 05/07/2018 Patient Education: Patient Medication Summary Completed 05/07/2018 Patient Education: Diabetes Completed 05/07/2018 Patient Education: Hypertension Completed 05/07/2018 Visit Plan: flu shot today b12 shot today 04/04/2018 Appointment: Injection 04/04/2018 Patient Education: Patient Medication Summary Completed 04/04/2018 Appointment: Injection 03/04/2018 Patient Education: Patient Medication Summary Completed 03/04/2018 Visit Plan: Medicare Exam - today we discussed the patients past history, immunizations, preventative exams/evaluations - colonoscopy, fecal occult blood testing, routine labs for renal function, glucose, cholesterol, osteoporosis evaluations, cardiovascular testing and cancer screenings. We have also discussed mental health and the signs/symptoms of depression. The patient was advised of home safety evaluations and the need to make sure that as the aging process continues, we need to be aware of different ways to make the home a safer place to reside. The patient has also been counseled that exercise is necessary - and of utmost importance as we age to help decrease fall risk and to maintain independence in the home. Today we discussed the need for the patient to create paperwork for Advanced directives as well as for the patient to provide this office with a copy of her DOPA paperwork for health care surrogate. Anxiety-depression - uncontrolled - Pt has been counseled about the diagnosis of anxiety/depression, the potential causes, and risks associated with the diagnosis. The patient has been counseled about treatment options, and understands the risks associated with treatment of anxiety/depression, as well as the risks associated with NOT treating the anxiety/depression. I believe the pt will benefit from medical intervention and an antidepressant has been appropriately prescribed for this patient. 01/29/2018 Patient Education: Patient Medication Summary Completed 01/29/2018 Visit Plan: Diabetes Mellitus - Uncontrolled - per recent FSBS reports. I have recommended for the patient to have follow up labs prior to the next office visit. The patient has been instructed to continue with current medications as previously directed, continue with regular FSBS monitoring to assure continued control of diabetes. Pt to call for any acute concerns, complaints, or if the blood glucose readings are starting to become less controlled. I have recommended for the patient to follow more strictly to the diabetic diet as discussed in clinic to allow for greater blood glucose control. She has not been taking her byetta like she is directed - she will start taking the byetta twice a day and we are stopping the metformin due to her renal function declining. Mouth pain - improved on the magic mouth wash and the acyclovir. Hypertension - well controlled - continue with current medications, continue with no added salt diet. Pt has been encouraged to exercise daily. The pt has been advised to call the office if there are any acute concerns about change in blood pressure readings at home. 01/01/2018 Appointment: Daisy Garcia [facility] [id number] [facility] [id number] (15 min) Moderate 01/01/2018 Patient Education: Patient Medication Summary Completed 01/01/2018 Visit Plan: Apthous ulcer of mouth/mouth pain - I have recommended pt to start on magic mouth wash a 1:1:1 solution of carafate, nystatin, and benadryl for 5mL swish and swallow qid x 10 days - I have called this rx to [facility]. Rx for acyclovir sent to [facility] as well. Glenad is to call if the symptoms do not improve over the weekend. 12/27/2017 Appointment: Daisy Garcia WPtel: [id number] (15 min) Moderate 12/27/2017 Patient Education: Patient Medication Summary Completed 12/27/2017 Visit Plan: Hypertension - well controlled - continue with current medications, continue with no added salt diet. Pt has been encouraged to exercise daily. The pt has been advised to call the office if there are any acute concerns about change in blood pressure readings at home. Diabetes Mellitus - controlled - per recent FSBS reports. I have recommended for the patient to have follow up labs prior to the next office visit. The patient has been instructed to continue with current medications as previously directed, continue with regular FSBS monitoring to assure continued control of diabetes. Pt to call for any acute concerns, complaints, or if the blood glucose readings are starting to become less controlled. Knee pain after fall at home - recommended pt to keep use of anti-inflammatories - monitor symptoms, call if not improving. Vitamin b12 injection given today in clinic. 12/18/2017 Appointment: Daisy Garcia [facility] [address] [facility] [id number] (15 min) Moderate 12/18/2017 Patient Education: Patient Medication Summary Completed 12/18/2017 Care Plan: COMPLETE CBC AUTOMATED LOINC : 93473-3 Pending 12/18/2017 Visit Plan: Left knee pain - will have pt use RICE - Rest, Ice, Compression, Elevation - will order x-ray - The pt is to use prn antiinflammatories to manage acute pain. The patient is to call the office if the pain is worsening or does not improve. 12/13/2017 Appointment: Yady Harper WPtel: [id number] (30 min) Complex 12/13/2017 Patient Education: Patient Medication Summary Completed 12/13/2017 Care Plan: X-RAY EXAM OF KNEE 3 [facility] : 32089-4 Pending 12/13/2017 Appointment: Injection 11/20/2017 Patient Education: Patient Medication Summary Completed 11/20/2017 Appointment: Daisy Garcia WPtel: [facility] [id number] (15 min) Moderate 09/18/2017 Appointment: Injection 08/21/2017 Patient Education: Patient Medication Summary Completed 08/21/2017 Appointment: Injection 07/18/2017 Patient Education: Patient Medication Summary Completed 07/18/2017 Visit Plan: Hypertension - well controlled - continue with current medications, continue with no added salt diet. Pt has been encouraged to exercise daily. The pt has been advised to call the office if there are any acute concerns about change in blood pressure readings at home. Diabetes Mellitus - controlled - per recent FSBS reports. I have recommended for the patient to have follow up labs prior to the next office visit. The patient has been instructed to continue with current medications as previously directed, continue with regular FSBS monitoring to assure continued control of diabetes. Pt to call for any acute concerns, complaints, or if the blood glucose readings are starting to become less controlled. Diarrhea resolved - continue current medications - decrease dose of lomotil as able. Vitamin B12 deficiency - shot today. 06/18/2017 Appointment: Daisy Garcia WPtel: [facility] [place] (15 min) Moderate 06/18/2017 Patient Education: Patient Medication Summary Completed 06/18/2017 Patient Education: Obesity Completed 06/18/2017 Patient Education: Hypertension Completed 06/18/2017 Visit Plan: Ecchymosis - check labs today. Diarrhea - hold lipitor x 2 weeks - and restart simvastatin - call the office to let us know one way or the other if the diarrhea does or does not resolve. start on probiotic three times daily x 5 days 06/07/2017 Appointment: Daisy Garcia WPtel: [phone] [facility] [place] (15 min) Moderate 06/07/2017 Patient Education: Patient Medication Summary Completed 06/07/2017 Patient Education: Obesity Completed 06/07/2017 Appointment: Injection 05/09/2017 Patient Education: Patient Medication Summary Completed 05/09/2017 Appointment: Daisy Garcia WPtel: [facility] [place] (15 min) Moderate 04/26/2017 Patient Education: Patient Medication Summary Completed 04/25/2017 Visit Plan: Hypertension - well controlled - continue with current medications, continue with no added salt diet. Pt has been encouraged to exercise daily. The pt has been advised to call the office if there are any acute concerns about change in blood pressure readings at home. Diabetes Mellitus - controlled - per recent FSBS reports. I have recommended for the patient to have follow up labs prior to the next office visit. The patient has been instructed to continue with current medications as previously directed, continue with regular FSBS monitoring to assure continued control of diabetes. Pt to call for any acute concerns, complaints, or if the blood glucose readings are starting to become less controlled. Afib - rate controlled - continue with eliquis and cardizem 04/16/2017 Appointment: Daisy Garcia WPtel: [facility] [place] (15 min) Moderate 04/16/2017 Appointment: Daisy Garcia WPtel: [address] [place], [place] [id number] (15 min) Moderate 04/16/2017 Patient Education: Patient Medication Summary Completed 04/16/2017 Patient Education: Obesity Completed 04/16/2017 Patient Education: Hypertension Completed 04/16/2017 Appointment: Injection 04/04/2017 Patient Education: Patient Medication Summary Completed 04/04/2017 Visit Plan: Sacroiliitis -right SI joint injection today in the office-- back exercises discussed with the patient, pt to continue with anti-inflammatories. Pt is to call if the symptoms do not improve or if they worsen. 02/23/2017 Visit Plan: Sacroiliitis -right SI joint injection today in the office-- back exercises discussed with the patient, pt to continue with anti-inflammatories. Pt is to call if the symptoms do not improve or if they worsen. 02/23/2017 Patient Education: Patient Medication Summary Completed 02/23/2017 Appointment: Injection 01/23/2017 Patient Education: Patient Medication Summary Completed 01/23/2017 Visit Plan: Hypertension - well controlled - continue with current medications, continue with no added salt diet. Pt has been encouraged to exercise daily. The pt has been advised to call the office if there are any acute concerns about change in blood pressure readings at home. Diabetes Mellitus - controlled - per recent FSBS reports. I have recommended for the patient to have follow up labs prior to the next office visit. The patient has been instructed to continue with current medications as previously directed, continue with regular FSBS monitoring to assure continued control of diabetes. Pt to call for any acute concerns, complaints, or if the blood glucose readings are starting to become less controlled. 12/26/2016 Visit Plan: Hypertension - well controlled - continue with current medications, continue with no added salt diet. Pt has been encouraged to exercise daily. The pt has been advised to call the office if there are any acute concerns about change in blood pressure readings at home. Diabetes Mellitus - controlled - per recent FSBS reports. I have recommended for the patient to have follow up labs prior to the next office visit. The patient has been instructed to continue with current medications as previously directed, continue with regular FSBS monitoring to assure continued control of diabetes. Pt to call for any acute concerns, complaints, or if the blood glucose readings are starting to become less controlled. 12/26/2016 Appointment: Daisy Garcia WPtel: [phone] [facility] [place] (15 min) Moderate 12/26/2016 Patient Education: Patient Medication Summary Completed 12/26/2016 Appointment: Injection 11/14/2016 Patient Education: Patient Medication Summary Completed 11/14/2016 Visit Plan: Bronchitis - acute case of bronchitis identified. Pt has been given antibiotics, breathing treatments as appropriate, and pt has been instructed to call if symptoms are not improved, or if symptoms acutely worsen. 09/07/2016 Appointment: Chantell [phone] (30 min) Complex 09/07/2016 Patient Education: Patient Medication Summary Completed 09/07/2016 Visit Plan: Diabetes Mellitus - controlled - per recent FSBS reports. I have recommended for the patient to have follow up labs prior to the next office visit. The patient has been instructed to continue with current medications as previously directed, continue with regular FSBS monitoring to assure continued control of diabetes. Pt to call for any acute concerns, complaints, or if the blood glucose readings are starting to become less controlled. Sinusitis - Pt has acute infection - pain in face, maxillary region, Pt informed to use decongestant, RX given to patient, sinus rinses also recommended. Call if symptoms do not show improvement. 08/29/2016 Appointment: Daisy Garcia WPtel: [phone] [facility] (15 min) Moderate 08/29/2016 Patient Education: Patient Medication Summary Completed 08/29/2016 Patient Education: Obesity Completed 08/29/2016 Appointment: Daisy Garcia WPtel: [phone] [facility] (15 min) Moderate 08/22/2016 Appointment: aDisy Garcia WPtel: [phone] [facility] (15 min) Moderate 08/02/2016 Appointment: Chantell Singh WPtel: [phone] [id number] [place] (30 min) Complex 08/02/2016 Visit Plan: Allergies - chronic - recommended pt to use allergy medication as prescribed. Pt has been counseled as to the appropriate use of the medication. Pt to call if allergy symptoms are not controlled with the medication. If using nasal spray, instructions as follows: Nasal spray- use twice daily, one spray per nostril twice daily, after 30 minutes, rinse out nose with saline spray.. Use opposite hand per nostril to spray in the nasal steroid allergy spray. 06/12/2016 Appointment: Yady Harper WPtel: [phone] [facility] (15 min) Moderate 06/12/2016 Patient Education: Patient Medication Summary Completed 06/12/2016 Patient Education: Obesity Completed 06/12/2016 Visit Plan: Urinary Tract Infection-discussed natural and expected course of this diagnosis and to alert me if symptoms do not follow expected course, or if any worse. UA positive for infection today in the office- plan to send for culture and will call patient with results. RX sent to patient' s pharmacy. Avoid tub baths, restrictive underwear, etc. Recommend patient start on probiotic while taking the antibiotic to prevent diarrhea. Patient verbalized understanding of plan. B12 injection today in the office 05/04/2016 Appointment: Chantell Singh WPtel: [phone] [phone] [place] (15 min) Moderate 05/04/2016 Patient Education: Patient Medication Summary Completed 05/04/2016 Patient Education: Obesity Completed 05/04/2016 Visit Plan: Diabetes Mellitus - controlled - per recent FSBS reports. I have recommended for the patient to have follow up labs prior to the next office visit. The patient has been instructed to continue with current medications as previously directed, continue with regular FSBS monitoring to assure continued control of diabetes. Pt to call for any acute concerns, complaints, or if the blood glucose readings are starting to become less controlled. Hypertension - well controlled - continue with current medications, continue with no added salt diet. Pt has been encouraged to exercise daily. The pt has been advised to call the office if there are any acute concerns about change in blood pressure readings at home. Skin lesions on buttock - pt to use triamcinalone cream. 03/30/2016 Appointment: Daisy Garcia WPtel: [phone] [facility] [place] (15 min) Moderate 03/30/2016 Patient Education: Patient Medication Summary Completed 03/30/2016 Patient Education: Hypertension Completed 03/30/2016 Appointment: Injection 03/17/2016 Patient Education: Patient Medication Summary Completed 03/17/2016 Appointment: Injection 02/15/2016 Patient Education: Patient Medication Summary Completed 02/15/2016 Appointment: Daisy Garcia WPtel: [phone] [facility] [place] (15 min) Moderate 01/26/2016 Appointment: Injection 01/19/2016 Patient Education: Patient Medication Summary Completed 01/19/2016 Appointment: Injection 12/07/2015 Patient Education: Patient Medication Summary Completed 12/07/2015 Visit Plan: Diabetes Mellitus - controlled - per recent FSBS reports. I have recommended for the patient to have follow up labs prior to the next office visit. The patient has been instructed to continue with current medications as previously directed, continue with regular FSBS monitoring to assure continued control of diabetes. Pt to call for any acute concerns, complaints, or if the blood glucose readings are starting to become less controlled. Hypertension - uncontrolled - the patient's medications have been modified as documented in the visit note. The patient has been counseled to cut back on salt in diet for a no added salt diet, low fat diet, start an exercise program with low weight bearing exercises and higher aerobic activity for heart health. The patient is to check blood pressure readings as an outpatient and either fax, call, or email the readings to the office next week for practitioner to review. The pt is to call for acute concerns. 11/30/2015 Appointment: Daisy Garcia WPtel: [facility]5 [facility] [place] (15 min) Moderate 11/30/2015 Patient Education: Patient Medication Summary Completed 11/30/2015 Patient Education: Obesity Completed 11/30/2015 Appointment: Daisy Garcia WPtel: [phone] [facility] [place] (15 min) Moderate 10/26/2015 Visit Plan: Sinusitis - Pt has acute infection - pain in face, maxillary region, Pt informed to use decongestant, RX given to patient, sinus rinses also recommended. Call if symptoms do not show improvement. Conjunctivitis - rx for eye drops/lube sent electronically to the patient's pharmacy. The patient has been instructed to cleanse affected eye with warm washcloth, then place medication into affected eye four times daily. 09/06/2015 Patient Education: Patient Medication Summary Completed 09/06/2015 Visit Plan: Hypertension - continue with current medications, continue with no added salt diet. Pt has been encouraged to exercise daily. The pt has been advised to call the office if there are any acute concerns about change in blood pressure readings at home. Right knee pain - pt has been getting injections in the right knee by Dr. Monet, pt is going to schedule surgery with him. 08/04/2015 Visit Plan: Hypertension - continue with current medications, continue with no added salt diet. Pt has been encouraged to exercise daily. The pt has been advised to call the office if there are any acute concerns about change in blood pressure readings at home. Right knee pain - pt has been getting injections in the right knee by Dr. Monet, pt is going to schedule surgery with him. 08/04/2015 Patient Education: Patient Medication Summary Completed 08/04/2015 Patient Education: Hypertension Completed 08/04/2015 Visit Plan: Pharyngitis-Discussed natural and expected course of this diagnosis and need to alert me if symtpoms do not follow expected course, or if any worse. Recommended salt water gargles as needed for pain. Tylenol/motrin as needed for fever/discomfort. Sinusitis - Pt has acute infection - pain in face, maxillary region, Pt informed to use decongestant, RX given to patient, sinus rinses also recommended. Call if symptoms do not show improvement. Rocephin and kenalog injections today in the office Monitor blood sugars closely 07/05/2015 Visit Plan: Pharyngitis-Discussed natural and expected course of this diagnosis and need to alert me if symtpoms do not follow expected course, or if any worse. Recommended salt water gargles as needed for pain. Tylenol/motrin as needed for fever/discomfort. Sinusitis - Pt has acute infection - pain in face, maxillary region, Pt informed to use decongestant, RX given to patient, sinus rinses also recommended. Call if symptoms do not show improvement. Rocephin and kenalog injections today in the office Monitor blood sugars closely 07/05/2015 Patient Education: Patient Medication Summary Completed 07/05/2015 Care Plan: Zeke CANTU Pending 07/05/2015 Visit Plan: Diabetes Mellitus - Uncontrolled - per recent FSBS reports. I have recommended for the patient to have follow up labs prior to the next office visit. The patient has been instructed to continue with current medications as previously directed, continue with regular FSBS monitoring to assure continued control of diabetes. Pt to call for any acute concerns, complaints, or if the blood glucose readings are starting to become less controlled. I have recommended for the patient to follow more strictly to the diabetic diet as discussed in clinic to allow for greater blood glucose control. Hypertension - well controlled - continue with current medications, continue with no added salt diet. Pt has been encouraged to exercise daily. The pt has been advised to call the office if there are any acute concerns about change in blood pressure readings at home. 06/28/2015 Appointment: Daisy Garcia WPtel: [phone] [facility] (15 min) Moderate 06/28/2015 Patient Education: Patient Medication Summary Completed 06/28/2015 Patient Education: Hypertension Completed 06/28/2015 Appointment: (15 min) Moderate 05/13/2015 Patient Education: Patient Medication Summary Completed 05/13/2015 Patient Education: Patient Medication Summary Completed 03/03/2015 Visit Plan: Hypertension - well controlled - continue with current medications, continue with no added salt diet. Pt has been encouraged to exercise daily. The pt has been advised to call the office if there are any acute concerns about change in blood pressure readings at home. Diabetes Mellitus - Uncontrolled - per recent FSBS reports. I have recommended for the patient to have follow up labs prior to the next office visit. The patient has been instructed to continue with current medications as previously directed, continue with regular FSBS monitoring to assure continued control of diabetes. Pt to call for any acute concerns, complaints, or if the blood glucose readings are starting to become less controlled. I have recommended for the patient to follow more strictly to the diabetic diet as discussed in clinic to allow for greater blood glucose control. The patient is to look at the cost of bydureon and trulicity. Handicap plaque order given to patient - severe OA - needs knee replacement and the patient needs the plaque for now due to inability to walk 100 feet without resting. 02/23/2015 Appointment: Daisy Garcia WPtel: [phone] [facility] Follow up 02/23/2015 Patient Education: Patient Medication Summary Completed 02/23/2015 Patient Education: Hypertension Completed 02/23/2015 Care Plan: [employer] : 12041-3 Ordered 02/23/2015 Visit Plan: Depression - uncontrolled - Pt has been counseled about the diagnosis of depression, the potential causes, and risks associated with the diagnosis. The pt denies suicidal ideation, or plans. The patient has been counseled about treatment options, and understands the risks associated with treatment of depression, as well as the risks associated with NOT treating the depression. I believe the pt will benefit from medical intervention and an antidepressant has been appropriately prescribed for this patient. Hypertension - well controlled - continue with current medications, continue with no added salt diet. Pt has been encouraged to exercise daily. The pt has been advised to call the office if there are any acute concerns about change in blood pressure readings at home. Right knee pain-recommend patient schedule knee surgery Skin tag of buttock-removed today in the office- cauterized with silver nitrate-keep clean and dry-call with any redness, drainage, warmth or other concerns. Patient verbalized understanding. 01/08/2015 Appointment: (15 min) Moderate 01/08/2015 Patient Education: Patient Medication Summary Completed 01/08/2015 Patient Education: Hypertension Completed 01/08/2015 Care Plan: COMPLETE [employer] : 66346-6 Ordered 01/08/2015 Appointment: Injection 12/08/2014 Patient Education: Patient Medication Summary Completed 12/08/2014 Appointment: Injection 10/26/2014 Patient Education: Patient Medication Summary Completed 10/26/2014 Visit Plan: Diabetes Mellitus - Uncontrolled - per recent FSBS reports. I have recommended for the patient to have follow up labs prior to the next office visit. The patient has been instructed to continue with current medications as previously directed, continue with regular FSBS monitoring to assure continued control of diabetes. Pt to call for any acute concerns, complaints, or if the blood glucose readings are starting to become less controlled. I have recommended for the patient to follow more strictly to the diabetic diet as discussed in clinic to allow for greater blood glucose control. Hypertension - well controlled - continue with current medications, continue with no added salt diet. Pt has been encouraged to exercise daily. The pt has been advised to call the office if there are any acute concerns about change in blood pressure readings at home. Iron deficiency Anemia - recommended pt to have iv venofer - stop oral iron as it is causing GI upset with nausea and diarrhea. 09/24/2014 Appointment: Daisy Garcia WPtel: [phone] [facility] [place] Follow up 09/24/2014 Patient Education: Patient Medication Summary Completed 09/24/2014 Patient Education: Hypertension Completed 09/24/2014 Appointment: Daisy Garcia WPtel: [phone] [facility] [place] [place] Injection 08/24/2014 Patient Education: Patient Medication Summary Completed 08/24/2014 Appointment: Follow up 08/07/2014 Patient Education: Patient Medication Summary Completed 07/08/2014 Visit Plan: vitamin b12 deficiency - shot given tonight 06/01/2014 Patient Education: Patient Medication Summary Completed 06/01/2014 Visit Plan: Sacroiliitis -left SI joint injection today in the office using sterile technique with 40mg kenalog and 1ml 1% lidocaine- back exercises discussed with the patient, pt to continue with anti-inflammatories. Pt is to call if the symptoms do not improve or if they worsen. Sciatica- exercises discussed with the patient, pt to continue with antiinflammatories. Pt is to call if the symptoms do not improve or if they worsen. 05/11/2014 Patient Education: Patient Medication Summary Completed 05/11/2014 Visit Plan: Cellulitis - continue with oral antibiotics as previously directed, return to clinic as previously directed, call for acute change in symptoms, worsening redness, warmth, discharge. 05/01/2014 Appointment: Daisy Garcia WPtel: [phone] [facility] [place] [place] Follow up 05/01/2014 Patient Education: Patient Medication Summary Completed 05/01/2014 Appointment: Daisy Garcia WPtel: [phone] [facility] [place] [place] Injection 04/27/2014 Patient Education: Patient Medication Summary Completed 04/27/2014 Visit Plan: Hypertension - well controlled - continue with current medications, continue with no added salt diet. Pt has been encouraged to exercise daily. The pt has been advised to call the office if there are any acute concerns about change in blood pressure readings at home. Diabetes Mellitus - Uncontrolled - per recent FSBS reports. I have recommended for the patient to have follow up labs prior to the next office visit. The patient has been instructed to continue with current medications as previously directed, continue with DAILY FSBS monitoring to assure continued control of diabetes. Pt to call for any acute concerns, complaints, or if the blood glucose readings are starting to become less controlled. I have recommended for the patient to follow more strictly to the diabetic diet as discussed in clinic to allow for greater blood glucose control. Iron def anemia-continue iron twice daily-repeat CBC with iron panel in 4 months Low back pain-continue with exercises, heat as tolerated, use hydrocodone as needed for pain 04/03/2014 Appointment: Chantell Singh WPtel: [phone] [phone] Follow up 04/03/2014 Patient Education: Patient Medication Summary Completed 04/03/2014 Patient Education: Hypertension Completed 04/03/2014 Visit Plan: vitamin b12 injection 03/24/2014 Appointment: Daisy Garcia WPtel: [facility]5 [facility] [place] Injection 03/24/2014 Patient Education: Patient Medication Summary Completed 03/24/2014 Appointment: Daisy Garcia WPtel: [facility]5 [facility] [place] Follow up 03/23/2014 Appointment: Daisy Garcia WPtel: [address] [place], [place] [id number] [place] Injection 02/24/2014 Patient Education: Patient Medication Summary Completed 02/24/2014 Appointment: Chantell Singh WPtel: [phone] [phone] [place] Injection 01/09/2014 Patient Education: Patient Medication Summary Completed 01/09/2014 Patient Education: Patient Medication Summary Completed 11/27/2013 Visit Plan: Hypertension - well controlled - continue with current medications, continue with no added salt diet. Pt has been encouraged to exercise daily. The pt has been advised to call the office if there are any acute concerns about change in blood pressure readings at home. Diabetes Mellitus - controlled - per recent FSBS reports. I have recommended for the patient to have follow up labs prior to the next office visit. The patient has been instructed to continue with current medications as previously directed, continue with regular FSBS monitoring to assure continued control of diabetes. Pt to call for any acute concerns, complaints, or if the blood glucose readings are starting to become less controlled. Iron deficiency Anemia - pt taking iron - her % saturation has improved since - pt to continue with current oral supplementation. 11/24/2013 Appointment: Daisy Garcia WPtel: [phone] [facility] [place] Follow up 11/24/2013 Patient Education: Patient Medication Summary Completed 11/24/2013 Patient Education: Hypertension Completed 11/24/2013 Appointment: Daisy Garcia WPtel: [phone] [facility] [place] Follow up 11/12/2013 Appointment: Daisy Garcia WPtel: [phone] [facility] [place] Follow up 10/27/2013 Appointment: Chantell Singh WPtel: [phone] [phone] [place] Injection 09/18/2013 Patient Education: Patient Medication Summary Completed 09/18/2013 Appointment: Chant[facility] [id number] [place] Injection 08/22/2013 Patient Education: Patient Medication Summary Completed 08/22/2013 Visit Plan: Diabetes Mellitus - controlled - per recent FSBS reports. I have recommended for the patient to have follow up labs prior to the next office visit. The patient has been instructed to continue with current medications as previously directed, continue with regular FSBS monitoring to assure continued control of diabetes. Pt to call for any acute concerns, complaints, or if the blood glucose readings are starting to become less controlled. Hypertension - well controlled - continue with current medications, continue with no added salt diet. Pt has been encouraged to exercise daily. The pt has been advised to call the office if there are any acute concerns about change in blood pressure readings at home. Hypothyroidism - pt with chronic hypothyroidism, continue with current medication, will monitor pt to signs or symptoms of lack of adequate supplementation. Pt is to continue with current dose of medication unless directed otherwise. Check labs at regular intervals wither q 3 months or q 6 months based on previous levels of control. check labs today 07/28/2013 Appointment: Daisy Garcia WPtel: [address] [facility] [place] Follow up 07/28/2013 Patient Education: Patient Medication Summary Completed 07/28/2013 Patient Education: Hypertension Completed 07/28/2013 Appointment: Chantell Singh [facility] [id number] [place] Injection 06/20/2013 Visit Plan: Diabetes Mellitus - controlled - per recent FSBS reports. I have recommended for the patient to have follow up labs prior to the next office visit. The patient has been instructed to continue with current medications as previously directed, continue with regular FSBS monitoring to assure continued control of diabetes. Pt to call for any acute concerns, complaints, or if the blood glucose readings are starting to become less controlled. Pt is worried that she will hit the donut hole faster if she is switched from byetta (which her insurance will no longer cover) to victoza. She will end up hitting the donut hole in November instead of January. However, she has been VERY well controlled on the byetta and has been with great diabetic control on the byetta. Once pt runs out of byetta, she is to start on victoza at 1.2 mg daily. Hypertension - well controlled - continue with current medications, continue with no added salt diet. Pt has been encouraged to exercise daily. The pt has been advised to call the office if there are any acute concerns about change in blood pressure readings at home. Edema - pt has been advised to elevate legs to prevent dependent edema, compression has been recommended to help to naturally decrease peripheral edema. Diuretic use has been discussed and pt has been instructed in appropriate use of such medication as necessary to further attempt to reduce peripheral edema. 06/16/2013 Appointment: Daisy Garcia [facility]Ptel: [address] [facility] [place] [place] Follow up 06/16/2013 Patient Education: Patient Medication Summary Completed 06/16/2013 Patient Education: Hypertension Completed 06/16/2013 Appointment: Chantell Singh [facility]el[facility] [address] [id number] [place] Injection 05/21/2013 Patient Education: Patient Medication Summary Completed 05/21/2013 Appointment: Daisy Garcia [facility]Ptel: [address] [facility] [place] [place] Injection 04/23/2013 Patient Education: Patient Medication Summary Completed 04/23/2013 Appointment: Daisy Garcia WPtel: [address] [facility] [place] [place] Injection 03/24/2013 Patient Education: Patient Medication Summary Completed 03/24/2013 Appointment: Daisy Garcia WPtel: [address] [facility] [place] [place] Injection 02/20/2013 Patient Education: Patient Medication Summary Completed 02/20/2013 Visit Plan: Hypertension - well controlled - continue with current medications, continue with no added salt diet. Pt has been encouraged to exercise daily. The pt has been advised to call the office if there are any acute concerns about change in blood pressure readings at home. Diabetes Mellitus - controlled - per recent FSBS reports. I have recommended for the patient to have follow up labs prior to the next office visit. The patient has been instructed to continue with current medications as previously directed, continue with regular FSBS monitoring to assure continued control of diabetes. Pt to call for any acute concerns, complaints, or if the blood glucose readings are starting to become less controlled. Edema - pt has been advised to elevate legs to prevent dependent edema, compression has been recommended to help to naturally decrease peripheral edema. Diuretic use has been discussed and pt has been instructed in appropriate use of such medication as necessary to further attempt to reduce peripheral edema. 01/22/2013 Appointment: Daisy Garcia WPtel: [facility] [place] [place] Follow up 01/22/2013 Patient Education: Patient Medication Summary Completed 01/22/2013 Patient Education: Hypertension Completed 01/22/2013 Appointment: Daisy Garcia WPtel: [facility] [place] [place] Injection 01/21/2013 Patient Education: Patient Medication Summary Completed 12/19/2012 Appointment: Daisy Garcia WPtel: [address] [facility] [place] [place] Injection 11/22/2012 Appointment: Daisy Garcia WPtel: [facility] [place] [place] Injection 11/20/2012 Patient Education: Patient Medication Summary Completed 11/20/2012 Appointment: Chantell Singh WPtel: [address] [place], [place] [phone] [place] Injection 11/08/2012 Appointment: Daisy Garcia WPtel: [phone] [facility] [place] Injection 10/23/2012 Patient Education: Patient Medication Summary Completed 10/23/2012 Visit Plan: Low back pain- the patient was instructed in appropriate posture, need for weight loss to alleviate abdominal obesity that is worsening the patient's back pain.. The pt is to use prn antiinflammatories to manage acute pain. The patient is to call the office if the pain is worsening or does not improve. RX for hydrocodone for acute pain symptoms to use as needed. Hypertension - elevated today secondary to pain - continue with current medications, continue with no added salt diet. Pt has been encouraged to exercise daily. The pt has been advised to call the office if there are any acute concerns about change in blood pressure readings at home. 10/02/2012 Patient Education: Patient Medication Summary Completed 10/02/2012 Patient Education: Hypertension Completed 10/02/2012 Appointment: Chantell Singh WPtel: [phone] [phone] Lab Draw 09/16/2012 Patient Education: Patient Medication Summary Completed 09/16/2012 Patient Education: Patient Medication Summary Completed 08/15/2012 Visit Plan: URI-cough- Pt advised to increase fluids, vitamin C. Discussed natural and expected course of this diagnosis and need to alert me if symtpoms do not follow expected course, or if any worse. RX sent to patient's pharmacy. Allergies - chronic - recommended pt to use allergy medication as prescribed. Pt has been counseled as the the appropriate use of the medication. Pt to call if allergy symptoms are not controlled with the medication. Kenalog injection today in the office. 08/06/2012 Appointment: Chantell Singh WPtel: [address] [phone] Sick 08/06/2012 Patient Education: Patient Medication Summary Completed 08/06/2012 Patient Education: Patient Medication Summary Completed 07/19/2012 Visit Plan: Joint Injection - Pt was given post - injection instructions. The pt has been advised to use antiinflammatories post injection today, ice to the injected site, call if redness, warmth, or increased pain occurs at the site of injection. 07/10/2012 Appointment: Daisy Garcia WPtel: [address] [facility] [place] [place] Injection 07/10/2012 Patient Education: Patient Medication Summary Completed 07/10/2012 Visit Plan: Hypertension - well controlled - continue with current medications, continue with no added salt diet. Pt has been encouraged to exercise daily. The pt has been advised to call the office if there are any acute concerns about change in blood pressure readings at home. Diabetes Mellitus - controlled - per recent FSBS reports. I have recommended for the patient to have follow up labs prior to the next office visit. The patient has been instructed to continue with current medications as previously directed, continue with regular FSBS monitoring to assure continued control of diabetes. Pt to call for any acute concerns, complaints, or if the blood glucose readings are starting to become less controlled. 07/04/2012 Appointment: Daisy Garcia WPtel: [address] [facility] [place] [place] Follow up 07/04/2012 Patient Education: Patient Medication Summary Completed 07/04/2012 Patient Education: Hypertension Completed 07/04/2012 Appointment: Daisy Garcia WPtel: [address] [facility] [place] [place] Injection 06/19/2012 Patient Education: Patient Medication Summary Completed 06/19/2012 Visit Plan: Hypertension - elevated today in the office but well controlled per home blood pressure log.. Therefore, no change in medications today. The patient has been counseled to cut back on salt in diet for a no added salt diet, low fat diet, start an exercise program with low weight bearing exercises and higher aerobic activity for heart health. The patient is to check blood pressure readings as an outpatient and either fax, call, or email the readings to the office next week for practicioner to review. The pt is to call for acute concerns. Diabetes Mellitus - controlled - per recent FSBS reports. I have recommended for the patient to have follow up labs prior to the next office visit. The patient has been instructed to continue with current medications as previously directed, continue with regular FSBS monitoring to assure continued control of diabetes. Pt to call for any acute concerns, complaints, or if the blood glucose readings are starting to become less controlled. B12 injection today in the office. 05/22/2012 Appointment: Chantell iSngh WPtel: [address] [place], [place] [phone] Follow up 05/22/2012 Appointment: Chantell Singh WPtel: [address] [place], [place] [phone] Follow up 05/22/2012 Patient Education: Patient Medication Summary Completed 05/22/2012 Patient Education: High Blood Pressure: Essential Hypertension Completed 2011 Visit Plan: Hypertension - uncontrolled - the patient's medications have been modified as documented in the visit note. The patient has been counseled to cut back on salt in diet for a no added salt diet, low fat diet, start an exercise program with low weight bearing exercises and higher aerobic activity for heart health. The patient is to check blood pressure readings as an outpatient and either fax, call, or email the readings to the office next week for practicioner to review. The pt is to call for acute concerns. Diabetes Mellitus - controlled - per recent FSBS reports. I have recommended for the patient to have follow up labs prior to the next office visit. The patient has been instructed to continue with current medications as previously directed, continue with regular FSBS monitoring to assure continued control of diabetes. Pt to call for any acute concerns, complaints, or if the blood glucose readings are starting to become less controlled. Lumbago-plan for xray lumbar spine Influenza vaccine today in the office B12 injection today in the office 04/22/2012 Appointment: Chantell Singh WPtel: [address] [place], [place] [phone] Established Patient Preventative visit 04/22/2012 Patient Education: Patient Medication Summary Completed 04/22/2012 Patient Education: High Blood Pressure: Essential Hypertension Completed 2011 Appointment: Chantell Singh WPtel: [address] [place], [place] [phone] [place] Injection 03/19/2012 Patient Education: Patient Medication Summary Completed 03/19/2012 Appointment: Daisy Garcia WPtel: [address] [place], [place] [id number] [place] Injection 02/15/2012 Patient Education: Patient Medication Summary Completed 02/15/2012 Appointment: Daisy Garcia WPtel: [address] [facility] [place] [place] Injection 01/18/2012 Patient Education: Patient Medication Summary Completed 01/18/2012 Visit Plan: Sacroilitis with sciatica-discussed natural and expected course of this diagnosis and to alert me if symptoms do not follow expected course, or if any worse. SI joint injection given in the office today for acute pain. Recommended anti-inflammatories and back exercises as previously directed. Instructed patient to call if pain persists, or if any worse. 12/28/2011 Appointment: Chantell Singh [facility]Ptel[facility] [phone] [place] Other 12/28/2011 Patient Education: Patient Medication Summary Completed 12/28/2011 Visit Plan: Diabetes Mellitus - controlled - per recent FSBS reports. I have recommended for the patient to have follow up labs prior to the next office visit. The patient has been instructed to continue with current medications as previously directed, continue with regular FSBS monitoring to assure continued control of diabetes. Pt to call for any acute concerns, complaints, or if the blood glucose readings are starting to become less controlled. Hypertension - well controlled - continue with current medications, continue with no added salt diet. Pt has been encouraged to exercise daily. The pt has been advised to call the office if there are any acute concerns about change in blood pressure readings at home. B12 shot today. 12/20/2011 Appointment: Daisy Garcia WPtel: [address] [facility] [place] [place] Other 12/20/2011 Patient Education: Patient Medication Summary Completed 12/20/2011 Patient Education: High Blood Pressure: Essential Hypertension Completed 2011 Appointment: Chantell Singh [facility]Ptel[facility] [address] [id number] [place] Injection 11/07/2011 Patient Education: Patient Medication Summary Completed 11/07/2011 Appointment: Daisy Garcia WPtel: [address] [facility] [place] [place] Injection 10/03/2011 Patient Education: Patient Medication Summary Completed 10/03/2011 Appointment: Daisy Garcia WPtel: [address] [facility] [place] [place] Injection 08/28/2011 Visit Plan: Hypertension - well controlled - continue with current medications, continue with no added salt diet. Pt has been encouraged to exercise daily. The pt has been advised to call the office if there are any acute concerns about change in blood pressure readings at home. Diabetes Mellitus - controlled - per recent FSBS reports. I have recommended for the patient to have follow up labs prior to the next office visit. The patient has been instructed to continue with current medications as previously directed, continue with regular FSBS monitoring to assure continued control of diabetes. Pt to call for any acute concerns, complaints, or if the blood glucose readings are starting to become less controlled. Arthritis- daily uncontrolled symptoms- recommend pt to tske antiinflammatory as directed for pain control. Use tylenol for break through pain symptoms. Sacroilitis exercises discussed with the patient, pt to continue with antiinflammatories. Pt is to call if the symptoms do not improve or if they worsen. Shots given to SI joint on the left today 08/23/2011 Appointment: Daisy Garcia WPtel: [facility] [place] [place] Other 08/23/2011 Patient Education: Patient Medication Summary Completed 08/23/2011 Patient Education: High Blood Pressure: Essential Hypertension Completed 2011 Appointment: Chantell Singh WPtel: [id number] [place] Injection 07/28/2011 Patient Education: Patient Medication Summary Completed 07/28/2011 Visit Plan: b12 injection 06/29/2011 Appointment: Chantell Singh WPtel: [id number] [place] Injection 06/29/2011 Patient Education: Patient Medication Summary Completed 06/29/2011 Visit Plan: Sacroilitis with sciatica-discussed natural and expected course of this diagnosis and to alert me if symptoms do not follow expected course, or if any worse. Toradol injection given in the office today for acute pain. Recommended anti-inflammatories and back exercises as previously directed. Instructed patient to call if pain persists, or if any worse. B12 deficiency-B12 injection today in the office 05/23/2011 Appointment: Francisco Chantell [facility]Ptel[facility] [address] [id number] [place] 05/23/2011 Patient Education: Patient Medication Summary Completed 05/23/2011 Visit Plan: Diabetes Mellitus - controlled - per recent FSBS reports. I have recommended for the patient to have follow up labs prior to the next office visit. The patient has been instructed to continue with current medications as previously directed, continue with regular FSBS monitoring to assure continued control of diabetes. Pt to call for any acute concerns, complaints, or if the blood glucose readings are starting to become less controlled. Hypertension - uncontrolled - the patient's medications have been modified as documented in the visit note. The patient has been counseled to cut back on salt in diet for a no added salt diet, low fat diet, start an exercise program with low weight bearing exercises and higher aerobic activity for heart health. The patient is to check blood pressure readings as an outpatient and either fax, call, or email the readings to the office next week for practicioner to review. The pt is to call for acute concerns. NO CHANGE IN MEDS-PT ADVISED TO KEEP MEDS FILLED AND ATTEMPT TO NOT RUN OUT IN THE FUTURE. FECAL INCONTINENCE DUE TOMSPHINCTER INJURY IN THE PAST- Lomotil rx sent to pharmacy. Iron deficiency anemia-recommended CENTRUM SILVER FOR WOMEN DAILY.. THIS HAS 44%OF THE RECOMMENDED DAILY IRON. 04/26/2011 Appointment: Daisy Garcia WPtel: [address] [facility] [place] Other 04/26/2011 Patient Education: Patient Medication Summary Completed 04/26/2011 Instructions Comment . Hypertension - well controlled - continue with current medications, continue with no added salt diet. Pt has been encouraged to exercise daily. The pt has been advised to call the office if there are any acute concerns about change in blood pressure readings at home. Diabetes Mellitus - Uncontrolled - per recent FSBS reports. I have recommended for the patient to have follow up labs prior to the next office visit. The patient has been instructed to continue with current medications as previously directed, continue with DAILY FSBS monitoring to assure continued control of diabetes. Pt to call for any acute concerns, complaints, or if the blood glucose readings are starting to become less controlled. I have recommended for the patient to follow more strictly to the diabetic diet as discussed in clinic to allow for greater blood glucose control. Iron def anemia-continue iron twice daily-repeat CBC with iron panel in 4 months Low back pain-continue with exercises, heat as tolerated, use hydrocodone as needed for pain CHECK LABS BEFORE YOUR NEXT APPOINTMENT BRING THE LIST OF COVERED DIABETES MEDICATIONS TO YOUR NEXT APPOINTMENT . Depression - uncontrolled - Pt has been counseled about the diagnosis of depression, the potential causes, and risks associated with the diagnosis. The pt denies suicidal ideation, or plans. The patient has been counseled about treatment options, and understands the risks associated with treatment of depression, as well as the risks associated with NOT treating the depression. I believe the pt will benefit from medical intervention and an antidepressant has been appropriately prescribed for this patient. Hypertension - well controlled - continue with current medications, continue with no added salt diet. Pt has been encouraged to exercise daily. The pt has been advised to call the office if there are any acute concerns about change in blood pressure readings at home. Right knee pain-recommend patient schedule knee surgery Skin tag of buttock-removed today in the office-cauterized with silver nitrate- keep clean and dry-call with any redness, drainage, warmth or other concerns. Patient verbalized understanding. . Sacroiliitis -right SI joint injection today in the office-- back exercises discussed with the patient, pt to continue with anti- inflammatories. Pt is to call if the symptoms do not improve or if they worsen. . Sacroiliitis -right SI joint injection today in the office-- back exercises discussed with the patient, pt to continue with anti- inflammatories. Pt is to call if the symptoms do not improve or if they worsen. . Hypertension - continue with current medications, continue with no added salt diet. Pt has been encouraged to exercise daily. The pt has been advised to call the office if there are any acute concerns about change in blood pressure readings at home. Right knee pain - pt has been getting injections in the right knee by Dr. Monet, pt is going to schedule surgery with him. . Sacroilitis with sciatica-discussed natural and expected course of this diagnosis and to alert me if symptoms do not follow expected course, or if any worse. SI joint injection given in the office today for acute pain. Recommended anti-inflammatories and back exercises as previously directed. Instructed patient to call if pain persists, or if any worse. . Diabetes Mellitus - controlled - per recent FSBS reports. I have recommended for the patient to have follow up labs prior to the next office visit. The patient has been instructed to continue with current medications as previously directed, continue with regular FSBS monitoring to assure continued control of diabetes. Pt to call for any acute concerns, complaints, or if the blood glucose readings are starting to become less controlled. Hypertension - uncontrolled - the patient's medications have been modified as documented in the visit note. The patient has been counseled to cut back on salt in diet for a no added salt diet, low fat diet, start an exercise program with low weight bearing exercises and higher aerobic activity for heart health. The patient is to check blood pressure readings as an outpatient and either fax , call, or email the readings to the office next week for practitioner to review. The pt is to call for acute concerns. LEXAPRO 5MG IN THE EVENING VITAMIN B12 INJECTION PREVNAR 13 . Medicare Exam - today we discussed the patients past history, immunizations, preventative exams/evaluations - colonoscopy, fecal occult blood testing, routine labs for renal function, glucose, cholesterol, osteoporosis evaluations , cardiovascular testing and cancer screenings. We have also discussed mental health and the signs/symptoms of depression. The patient was advised of home safety evaluations and the need to make sure that as the aging process continues , we need to be aware of different ways to make the home a safer place to reside. The patient has also been counseled that exercise is necessary - and of utmost importance as we age to help decrease fall risk and to maintain independence in the home. Today we discussed the need for the patient to create paperwork for Advanced directives as well as for the patient to provide this office with a copy of her DOP[place] paperwork for health care surrogate. Anxiety-depression - uncontrolled - Pt has been counseled about the diagnosis of anxiety/depression, the potential causes, and risks associated with the diagnosis. The patient has been counseled about treatment options, and understands the risks associated with treatment of anxiety/depression, as well as the risks associated with NOT treating the anxiety/depression. I believe the pt will benefit from medical intervention and an antidepressant has been appropriately prescribed for this patient. . flu shot today b12 shot today . Left knee pain - will have pt use RICE - Rest, Ice, Compression, Elevation - will order x-ray - The pt is to use prn antiinflammatories to manage acute pain. The patient is to call the office if the pain is worsening or does not improve. . Apthous ulcer of mouth/mouth pain - I have recommended pt to start on magic mouth wash a 1:1:1 solution of carafate, nystatin, and benadryl for 5mL swish and swallow qid x 10 days - I have called this rx to [facility]. Rx for acyclovir sent to [facility] as well. Glenda is to call if the symptoms do not improve over the weekend. . Diabetes Mellitus - controlled - per recent FSBS reports. I have recommended for the patient to have follow up labs prior to the next office visit. The patient has been instructed to continue with current medications as previously directed, continue with regular FSBS monitoring to assure continued control of diabetes. Pt to call for any acute concerns, complaints, or if the blood glucose readings are starting to become less controlled. Hypertension - well controlled - continue with current medications, continue with no added salt diet. Pt has been encouraged to exercise daily. The pt has been advised to call the office if there are any acute concerns about change in blood pressure readings at home. Hypothyroidism - pt with chronic hypothyroidism, continue with current medication, will monitor pt to signs or symptoms of lack of adequate supplementation. Pt is to continue with current dose of medication unless directed otherwise. Check labs at regular intervals wither q 3 months or q 6 months based on previous levels of control. check labs today hold lipitor x 2 weeks - and restart simvastatin - call the office to let us know one way or the other if the diarrhea does or does not resolve. start on probiotic three times daily x 5 days . Ecchymosis - check labs today. Diarrhea - hold lipitor x 2 weeks - and restart simvastatin - call the office to let us know one way or the other if the diarrhea does or does not resolve. start on probiotic three times daily x 5 days . Hypertension - continue with current medications, continue with no added salt diet. Pt has been encouraged to exercise daily. The pt has been advised to call the office if there are any acute concerns about change in blood pressure readings at home. Right knee pain - pt has been getting injections in the right knee by Dr. Monet, pt is going to schedule surgery with him. . Sinusitis - Pt has acute infection - pain in face, maxillary region, Pt informed to use decongestant, RX given to patient, sinus rinses also recommended. Call if symptoms do not show improvement. Conjunctivitis - rx for eye drops/lube sent electronically to the patient's pharmacy. The patient has been instructed to cleanse affected eye with warm washcloth, then place medication into affected eye four times daily. . Cellulitis - continue with oral antibiotics as previously directed, return to clinic as previously directed, call for acute change in symptoms, worsening redness, warmth, discharge. . Hypertension - well controlled - continue with current medications, continue with no added salt diet. Pt has been encouraged to exercise daily. The pt has been advised to call the office if there are any acute concerns about change in blood pressure readings at home. Diabetes Mellitus - controlled - per recent FSBS reports. I have recommended for the patient to have follow up labs prior to the next office visit. The patient has been instructed to continue with current medications as previously directed, continue with regular FSBS monitoring to assure continued control of diabetes. Pt to call for any acute concerns, complaints, or if the blood glucose readings are starting to become less controlled. Diarrhea resolved - continue current medications - decrease dose of lomotil as able. Vitamin B12 deficiency - shot today. Once pt runs out of Trademobmakenzie, she is to start on victoza at 1.2 mg daily. . Diabetes Mellitus - controlled - per recent FSBS reports. I have recommended for the patient to have follow up labs prior to the next office visit. The patient has been instructed to continue with current medications as previously directed, continue with regular FSBS monitoring to assure continued control of diabetes. Pt to call for any acute concerns, complaints, or if the blood glucose readings are starting to become less controlled. Pt is worried that she will hit the donut hole faster if she is switched from byetta (which her insurance will no longer cover) to victoza. She will end up hitting the donut hole in November instead of January. However, she has been VERY well controlled on the byetta and has been with great diabetic control on the [employer]. [facility], she is to start on victoza at 1.2 mg daily. Hypertension - well controlled - continue with current medications, continue with no added salt diet. Pt has been encouraged to exercise daily. The pt has been advised to call the office if there are any acute concerns about change in blood pressure readings at home. Edema - pt has been advised to elevate legs to prevent dependent edema, compression has been recommended to help to naturally decrease peripheral edema. Diuretic use has been discussed and pt has been instructed in appropriate use of such medication as necessary to further attempt to reduce peripheral edema. CALL SUNDAY IF NOT BETTER-ZPACK OR DOXYCYCLINE KENALOG INJECTION TODAY-START SHORT COURSE OF PREDNISONE TOMORROW . Bronchitis - acute case of bronchitis identified. Pt has been given antibiotics, breathing treatments as appropriate, and pt has been instructed to call if symptoms are not improved, or if symptoms acutely worsen. Monitor your blood pressure at home and record. Bring in your readings to your next appointment, or as directed. Call for chest pain, shortness of breath, headaches, or other concerns.. Low back pain- the patient was instructed in appropriate posture, need for weight loss to alleviate abdominal obesity that is worsening the patient's back pain.. The pt is to use prn antiinflammatories to manage acute pain. The patient is to call the office if the pain is worsening or does not improve. RX for hydrocodone for acute pain symptoms to use as needed. Hypertension - elevated today secondary to pain - continue with current medications, continue with no added salt diet. Pt has been encouraged to exercise daily. The pt has been advised to call the office if there are any acute concerns about change in blood pressure readings at home. . Hypertension - well controlled - continue with current medications, continue with no added salt diet. Pt has been encouraged to exercise daily. The pt has been advised to call the office if there are any acute concerns about change in blood pressure readings at home. Diabetes Mellitus - controlled - per recent FSBS reports. I have recommended for the patient to have follow up labs prior to the next office visit. The patient has been instructed to continue with current medications as previously directed, continue with regular FSBS monitoring to assure continued control of diabetes. Pt to call for any acute concerns, complaints, or if the blood glucose readings are starting to become less controlled. Arthritis- daily uncontrolled symptoms- recommend pt to tske antiinflammatory as directed for pain control. Use tylenol for break through pain symptoms. Sacroilitis exercises discussed with the patient, pt to continue with antiinflammatories. Pt is to call if the symptoms do not improve or if they worsen. Shots given to SI joint on the left today . vitamin b12 injection . Hypertension - well controlled - continue with current medications, continue with no added salt diet. Pt has been encouraged to exercise daily. The pt has been advised to call the office if there are any acute concerns about change in blood pressure readings at home. Diabetes Mellitus - controlled - per recent FSBS reports. I have recommended for the patient to have follow up labs prior to the next office visit. The patient has been instructed to continue with current medications as previously directed, continue with regular FSBS monitoring to assure continued control of diabetes. Pt to call for any acute concerns, complaints, or if the blood glucose readings are starting to become less controlled. . Hypertension - well controlled - continue with current medications, continue with no added salt diet. Pt has been encouraged to exercise daily. The pt has been advised to call the office if there are any acute concerns about change in blood pressure readings at home. Diabetes Mellitus - controlled - per recent FSBS reports. I have recommended for the patient to have follow up labs prior to the next office visit. The patient has been instructed to continue with current medications as previously directed, continue with regular FSBS monitoring to assure continued control of diabetes. Pt to call for any acute concerns, complaints, or if the blood glucose readings are starting to become less controlled. . Diabetes Mellitus - Uncontrolled - per recent FSBS reports. I have recommended for the patient to have follow up labs prior to the next office visit. The patient has been instructed to continue with current medications as previously directed, continue with regular FSBS monitoring to assure continued control of diabetes. Pt to call for any acute concerns, complaints, or if the blood glucose readings are starting to become less controlled. I have recommended for the patient to follow more strictly to the diabetic diet as discussed in clinic to allow for greater blood glucose control. Hypertension - well controlled - continue with current medications, continue with no added salt diet. Pt has been encouraged to exercise daily. The pt has been advised to call the office if there are any acute concerns about change in blood pressure readings at home. Iron deficiency Anemia - recommended pt to have iv venofer - stop oral iron as it is causing GI upset with nausea and diarrhea. Increase lisinopril to 40mg po daily Monitor your blood pressure at home and record. Bring in your readings to your next appointment, or as directed. Call for chest pain, shortness of breath, headaches, or other concerns.. Hypertension - uncontrolled - the patient's medications have been modified as documented in the visit note. The patient has been counseled to cut back on salt in diet for a no added salt diet, low fat diet, start an exercise program with low weight bearing exercises and higher aerobic activity for heart health. The patient is to check blood pressure readings as an outpatient and either fax , call, or email the readings to the office next week for practicioner to review. The pt is to call for acute concerns. Diabetes Mellitus - controlled - per recent FSBS reports. I have recommended for the patient to have follow up labs prior to the next office visit. The patient has been instructed to continue with current medications as previously directed, continue with regular FSBS monitoring to assure continued control of diabetes. Pt to call for any acute concerns, complaints, or if the blood glucose readings are starting to become less controlled. Lumbago-plan for xray lumbar spine Influenza vaccine today in the office B12 injection today in the office . URI-cough- Pt advised to increase fluids, vitamin C. Discussed natural and expected course of this diagnosis and need to alert me if symtpoms do not follow expected course, or if any worse. RX sent to patient's pharmacy. Allergies - chronic - recommended pt to use allergy medication as prescribed. Pt has been counseled as the the appropriate use of the medication. Pt to call if allergy symptoms are not controlled with the medication. Kenalog injection today in the office. . Low back pain- The pt is to use prn antiinflammatories to manage acute pain. The patient is to call the office if the pain is worsening or does not improve. Joint Injection - Pt was given post - injection instructions. The pt has been advised to use anti-inflammatories post injection today, ice to the injected site, call if redness, warmth, or increased pain occurs at the site of injection. Sciatica- exercises discussed with the patient, pt to continue with antiinflammatories. Pt is to call if the symptoms do not improve or if they worsen. . Pharyngitis-Discussed natural and expected course of this diagnosis and need to alert me if symtpoms do not follow expected course, or if any worse. Recommended salt water gargles as needed for pain. Tylenol/ motrin as needed for fever/discomfort. Sinusitis - Pt has acute infection - pain in face, maxillary region, Pt informed to use decongestant, RX given to patient, sinus rinses also recommended. Call if symptoms do not show improvement. Rocephin and kenalog injections today in the office Monitor blood sugars closely . Pharyngitis-Discussed natural and expected course of this diagnosis and need to alert me if symtpoms do not follow expected course, or if any worse. Recommended salt water gargles as needed for pain. Tylenol/ motrin as needed for fever/discomfort. Sinusitis - Pt has acute infection - pain in face, maxillary region, Pt informed to use decongestant, RX given to patient, sinus rinses also recommended. Call if symptoms do not show improvement. Rocephin and kenalog injections today in the office Monitor blood sugars closely . b12 injection . Hypertension - well controlled - continue with current medications, continue with no added salt diet. Pt has been encouraged to exercise daily. The pt has been advised to call the office if there are any acute concerns about change in blood pressure readings at home. Diabetes Mellitus - controlled - per recent FSBS reports. I have recommended for the patient to have follow up labs prior to the next office visit. The patient has been instructed to continue with current medications as previously directed, continue with regular FSBS monitoring to assure continued control of diabetes. Pt to call for any acute concerns, complaints, or if the blood glucose readings are starting to become less controlled. Afib - rate controlled - continue with eliquis and cardizem . Diabetes Mellitus - controlled - per recent FSBS reports. I have recommended for the patient to have follow up labs prior to the next office visit. The patient has been instructed to continue with current medications as previously directed, continue with regular FSBS monitoring to assure continued control of diabetes. Pt to call for any acute concerns, complaints, or if the blood glucose readings are starting to become less controlled. Hypertension - well controlled - continue with current medications, continue with no added salt diet. Pt has been encouraged to exercise daily. The pt has been advised to call the office if there are any acute concerns about change in blood pressure readings at home. Skin lesions on buttock - pt to use triamcinalone cream. . Sacroiliitis -left SI joint injection today in the office using sterile technique with 40mg kenalog and 1ml 1% lidocaine- back exercises discussed with the patient, pt to continue with anti-inflammatories. Pt is to call if the symptoms do not improve or if they worsen. Sciatica- exercises discussed with the patient, pt to continue with antiinflammatories. Pt is to call if the symptoms do not improve or if they worsen. . Hypertension - elevated today in the office but well controlled per home blood pressure log.. Therefore, no change in medications today. The patient has been counseled to cut back on salt in diet for a no added salt diet, low fat diet, start an exercise program with low weight bearing exercises and higher aerobic activity for heart health. The patient is to check blood pressure readings as an outpatient and either fax , call, or email the readings to the office next week for practicioner to review. The pt is to call for acute concerns. Diabetes Mellitus - controlled - per recent FSBS reports. I have recommended for the patient to have follow up labs prior to the next office visit. The patient has been instructed to continue with current medications as previously directed, continue with regular FSBS monitoring to assure continued control of diabetes. Pt to call for any acute concerns, complaints, or if the blood glucose readings are starting to become less controlled. B12 injection today in the office. . Hypertension - well controlled - continue with current medications, continue with no added salt diet. Pt has been encouraged to exercise daily. The pt has been advised to call the office if there are any acute concerns about change in blood pressure readings at home. Diabetes Mellitus - controlled - per recent FSBS reports. I have recommended for the patient to have follow up labs prior to the next office visit. The patient has been instructed to continue with current medications as previously directed, continue with regular FSBS monitoring to assure continued control of diabetes. Pt to call for any acute concerns, complaints, or if the blood glucose readings are starting to become less controlled. . vitamin b12 deficiency - shot given tonight . Urinary Tract Infection-discussed natural and expected course of this diagnosis and to alert me if symptoms do not follow expected course, or if any worse. UA positive for infection today in the office-plan to send for culture and will call patient with results. RX sent to patient's pharmacy. Avoid tub baths, restrictive underwear, etc. Recommend patient start on probiotic while taking the antibiotic to prevent diarrhea. Patient verbalized understanding of plan. B12 injection today in the office DX sinusitis - discussed expected course with the patient, pt advised to call for worsening symptoms, or lack of improvement on prescribed treatment course. . Diabetes Mellitus - controlled - per recent FSBS reports. I have recommended for the patient to have follow up labs prior to the next office visit. The patient has been instructed to continue with current medications as previously directed, continue with regular FSBS monitoring to assure continued control of diabetes. Pt to call for any acute concerns, complaints, or if the blood glucose readings are starting to become less controlled. Sinusitis - Pt has acute infection - pain in face, maxillary region, Pt informed to use decongestant, RX given to patient, sinus rinses also recommended. Call if symptoms do not show improvement. . Hypertension - well controlled - continue with current medications, continue with no added salt diet. Pt has been encouraged to exercise daily. The pt has been advised to call the office if there are any acute concerns about change in blood pressure readings at home. Diabetes Mellitus - controlled - per recent FSBS reports. I have recommended for the patient to have follow up labs prior to the next office visit. The patient has been instructed to continue with current medications as previously directed, continue with regular FSBS monitoring to assure continued control of diabetes. Pt to call for any acute concerns, complaints, or if the blood glucose readings are starting to become less controlled. Edema - pt has been advised to elevate legs to prevent dependent edema, compression has been recommended to help to naturally decrease peripheral edema. Diuretic use has been discussed and pt has been instructed in appropriate use of such medication as necessary to further attempt to reduce peripheral edema. . Allergies - chronic - recommended pt to use allergy medication as prescribed. Pt has been counseled as to the appropriate use of the medication. Pt to call if allergy symptoms are not controlled with the medication. If using nasal spray, instructions as follows: Nasal spray- use twice daily, one spray per nostril twice daily, after 30 minutes, rinse out nose with saline spray.. Use opposite hand per nostril to spray in the nasal steroid allergy spray. . Diabetes Mellitus - controlled - per recent FSBS reports. I have recommended for the patient to have follow up labs prior to the next office visit. The patient has been instructed to continue with current medications as previously directed, continue with regular FSBS monitoring to assure continued control of diabetes. Pt to call for any acute concerns, complaints, or if the blood glucose readings are starting to become less controlled. Hypertension - uncontrolled - the patient's medications have been modified as documented in the visit note. The patient has been counseled to cut back on salt in diet for a no added salt diet, low fat diet, start an exercise program with low weight bearing exercises and higher aerobic activity for heart health. The patient is to check blood pressure readings as an outpatient and either fax , call, or email the readings to the office next week for practicioner to review. The pt is to call for acute concerns. NO CHANGE IN MEDS-PT ADVISED TO KEEP MEDS FILLED AND ATTEMPT TO NOT RUN OUT IN THE FUTURE. FECAL INCONTINENCE DUE TOMSPHINCTER INJURY IN THE PAST- Lomotil rx sent to pharmacy. Iron deficiency anemia-recommended CENTRUM SILVER FOR WOMEN DAILY.. THIS HAS 44% OF THE RECOMMENDED DAILY IRON. . Diabetes Mellitus - controlled - per recent FSBS reports. I have recommended for the patient to have follow up labs prior to the next office visit. The patient has been instructed to continue with current medications as previously directed, continue with regular FSBS monitoring to assure continued control of diabetes. Pt to call for any acute concerns, complaints, or if the blood glucose readings are starting to become less controlled. Hypertension - well controlled - continue with current medications, continue with no added salt diet. Pt has been encouraged to exercise daily. The pt has been advised to call the office if there are any acute concerns about change in blood pressure readings at home. B12 shot today. use neosporin on the sites that itch - twice daily. . Diabetes Mellitus - Uncontrolled - per recent FSBS reports. I have recommended for the patient to have follow up labs prior to the next office visit. The patient has been instructed to continue with current medications as previously directed, continue with regular FSBS monitoring to assure continued control of diabetes. Pt to call for any acute concerns, complaints, or if the blood glucose readings are starting to become less controlled. I have recommended for the patient to follow more strictly to the diabetic diet as discussed in clinic to allow for greater blood glucose control. Hypertension - well controlled - continue with current medications, continue with no added salt diet. Pt has been encouraged to exercise daily. The pt has been advised to call the office if there are any acute concerns about change in blood pressure readings at home. . Joint Injection - Pt was given post - injection instructions. The pt has been advised to use antiinflammatories post injection today, ice to the injected site, call if redness, warmth, or increased pain occurs at the site of injection. bydureon - (the weekly medication that is the same medication as byetta, but formulated to release itself over a week so you only have to give the injection one time a week). trulicity - the same type of medication as bydureon - see how much this one would cost as well. . Hypertension - well controlled - continue with current medications, continue with no added salt diet. Pt has been encouraged to exercise daily. The pt has been advised to call the office if there are any acute concerns about change in blood pressure readings at home. Diabetes Mellitus - Uncontrolled - per recent FSBS reports. I have recommended for the patient to have follow up labs prior to the next office visit. The patient has been instructed to continue with current medications as previously directed, continue with regular FSBS monitoring to assure continued control of diabetes. Pt to call for any acute concerns, complaints, or if the blood glucose readings are starting to become less controlled. I have recommended for the patient to follow more strictly to the diabetic diet as discussed in clinic to allow for greater blood glucose control. The patient is to look at the cost of bydureon and trulicity. Handicap plaque order given to patient - severe OA - needs knee replacement and the patient needs the plaque for now due to inability to walk 100 feet without resting. check hgba1c in 12 weeks. Diabetes Mellitus - Uncontrolled - per recent FSBS reports. I have recommended for the patient to have follow up labs prior to the next office visit. The patient has been instructed to continue with current medications as previously directed, continue with regular FSBS monitoring to assure continued control of diabetes. Pt to call for any acute concerns, complaints, or if the blood glucose readings are starting to become less controlled. I have recommended for the patient to follow more strictly to the diabetic diet as discussed in clinic to allow for greater blood glucose control. She has not been taking her byetta like she is directed - she will start taking the byetta twice a day and we are stopping the metformin due to her renal function declining. Mouth pain - improved on the magic mouth wash and the acyclovir. Hypertension - well controlled - continue with current medications, continue with no added salt diet. Pt has been encouraged to exercise daily. The pt has been advised to call the office if there are any acute concerns about change in blood pressure readings at home. . Hypertension - well controlled - continue with current medications, continue with no added salt diet. Pt has been encouraged to exercise daily. The pt has been advised to call the office if there are any acute concerns about change in blood pressure readings at home. Diabetes Mellitus -improved-hgb a1c is down to 6.1%- I have recommended for the patient to have follow up labs prior to the next office visit. The patient has been instructed to continue with current medications as previously directed, continue with regular FSBS monitoring to assure continued control of diabetes. Pt to call for any acute concerns, complaints, or if the blood glucose readings are starting to become less controlled. CKD-stop NSAIDs-stay adequately hydrated and repeat bmp in 1 month non fasting . Hypertension - well controlled - continue with current medications, continue with no added salt diet. Pt has been encouraged to exercise daily. The pt has been advised to call the office if there are any acute concerns about change in blood pressure readings at home. Diabetes Mellitus - controlled - per recent FSBS reports. I have recommended for the patient to have follow up labs prior to the next office visit. The patient has been instructed to continue with current medications as previously directed, continue with regular FSBS monitoring to assure continued control of diabetes. Pt to call for any acute concerns, complaints, or if the blood glucose readings are starting to become less controlled. Iron deficiency Anemia - pt taking iron - her % saturation has improved since - pt to continue with current oral supplementation. . Hypertension - well controlled - continue with current medications, continue with no added salt diet. Pt has been encouraged to exercise daily. The pt has been advised to call the office if there are any acute concerns about change in blood pressure readings at home. Diabetes Mellitus - controlled - per recent FSBS reports. I have recommended for the patient to have follow up labs prior to the next office visit. The patient has been instructed to continue with current medications as previously directed, continue with regular FSBS monitoring to assure continued control of diabetes. Pt to call for any acute concerns, complaints, or if the blood glucose readings are starting to become less controlled. Knee pain after fall at home - recommended pt to keep use of anti- inflammatories - monitor symptoms, call if not improving. Vitamin b12 injection given today in clinic. . Sacroilitis with sciatica-discussed natural and expected course of this diagnosis and to alert me if symptoms do not follow expected course, or if any worse. Toradol injection given in the office today for acute pain. Recommended anti-inflammatories and back exercises as previously directed. Instructed patient to call if pain persists, or if any worse. B12 deficiency-B12 injection today in the office
--- OUTSIDE RECORDS SUMMARY | 2018-07-17 06:52 | XMS REPORT | CCD ---
Author Author Daisy [facility] Organization [facility] Address [address] [place] [address] Phone Care Team Providers Care Director Of Institutional Research Name Role Phone Daisy Garcia PP Unavailable CCM Unavailable Summary Purpose Interface Exchange Insurance Providers Payer name Policy type / Coverage type Covered alliance party ID Effective Begin Date Effective End Date WPS Medicare Part B Medicare Part B [id number] 2018 Unknown [place] [employer] Medicare Part B [id number] 2018 Unknown Family history Sister Diagnosis Age [...] 1 daughter 04/21/[address]: 510933358 Nonsmoker 04/21/[address]: 798602325 Never drinks alcohol 04/21/2011 Has the patient [...] Fill Instructions Zorvolex 35 mg capsule RxNorm: 2511893 1 Capsule(s) PO TID 07/201706/28/2018 Active Lexapro 5 mg tablet RxNorm: 202728 TAKE ONE TABLET BY MOUTH EVERY EVENING 05/30/2018 08/22/2019 Active Zorvolex 35 mg capsule RxNorm: 4255544 1 Capsule(s) PO TID 07/201705/29/2018 Inactive Kenalog 40 mg/mL suspension for injection RxNorm: 3805221 1 Milliliter(s) Inj 05/29/2018 05/29/2018 Inactive Lomotil 2.5 mg-0.025 mg tablet RxNorm: 2210576 Tablet(s) PO TAKE ONE TABLET BY MOUTH EVERY 8 HOURS NEEDED 05/08/2018 07/06/2018 Active warfarin 2 mg tablet RxNorm: 611739 1 Tablet(s) PO daily 3 days per week, 1/2 Tablet PO 4 days per week- Dr. Andrews manages 05/07/2018 No Stop Date Active cyanocobalamin (vit B-12) 1,000 mcg/mL injection solution RxNorm: 937872 1 Milliliter(s) Inj 05/07/2018 05/07/2018 Inactive Lasix 20 mg tablet RxNorm: 536735 TAKE ONE TABLET BY MOUTH DAILY NEEDED FOR SWELLING. TAKE POTASSIUM WITH EACH DOSE 04/30/2018 08/27/2018 Active Synthroid 50 mcg tablet RxNorm: 349373 TAKE ONE TABLET BY MOUTH EVERY DAY. 04/23/2018 07/16/2019 Active cyanocobalamin (vit B-12) 1,000 mcg/mL injection solution RxNorm: 394052 Milliliter(s) Inj 04/04/2018 04/04/2018 Inactive glipizide 10 mg tablet RxNorm: 287016 Tablet(s) TAKE ONE TABLET BY MOUTH TWICE A DAY 04/03/2018 03/28/2019 Active amlodipine 5 mg tablet RxNorm: 316611 TAKE ONE TABLET BY MOUTH TWICE A DAY 03/12/2018 03/06/2019 Active potassium chloride ER 20 mEq tablet,extended release(part/ cryst) RxNorm: 0793889 TAKE ONE TABLET BY MOUTH DAILY WHEN YOU TAKE LASIX (FUROSEMIDE) 03/12/2018 01/05/2019 Active spironolactone 25 mg tablet RxNorm: 215679 TAKE ONE TABLET BY MOUTH TWICE A DAY 03/11/2018 03/05/2019 Active cyanocobalamin (vit B-12) 1,000 mcg/mL injection solution RxNorm: 956660 1 Milliliter(s) Inj 03/04/2018 03/04/2018 Inactive amiodarone 200 mg tablet RxNorm: 444517 1/2 Tablet(s) PO daily 01/29/2018 No Stop Date Active cyanocobalamin (vit B-12) 1,000 mcg/mL injection solution RxNorm: 568140 1 Milliliter(s) Inj 01/29/2018 01/29/2018 Inactive amlodipine 5 mg tablet RxNorm: 302614 1 Tablet(s) PO QPM 201703/11/2018 Inactive Lexapro 5 mg tablet RxNorm: 788980 1 Tablet(s) PO QPM 201705/29/2018 Inactive warfarin 2 mg tablet RxNorm: 935432 1 Tablet(s) PO daily 4 days per week, 1/2 Tablet PO 3 days per week 01/29/201805/06 Inactive Tenex 1 mg tablet RxNorm: 353475 TAKE ONE TABLET BY MOUTH DAILY 01/21/2018 01/15/2019 Active acyclovir 800 mg tablet RxNorm: 073237 1 Tablet(s) PO TID use if needed for mouth sores 01/01/2018 01/14/2018 Inactive simvastatin 20 mg tablet RxNorm: 403209 TAKE ONE TABLET BY MOUTH EVERY NIGHT AT BEDTIME 12/27/2017 01/28/2018 Inactive acyclovir 800 mg tablet RxNorm: 479338 1 Tablet(s) PO TID 12/2712/31/2017 Inactive metoprolol succinate ER 50 mg tablet,extended release 24 hr RxNorm: 251734 1 Tablet(s) PO daily 12/18/2017 07/15/2018 Active cyanocobalamin (vit B-12) 1,000 mcg/mL injection solution RxNorm: 494568 Milliliter(s) Inj 12/18/2017 12/18/2017 Inactive prednisone 20 mg tablet RxNorm: 360297 1 Tablet(s) PO BID 12/1312/17/2017 Inactive spironolactone 25 mg tablet RxNorm: 184079 TAKE ONE TABLET BY MOUTH TWICE A DAY 12/03/2017 03/02/2018 Inactive hydrocodone 5 mg-acetaminophen 325 mg tablet RxNorm: 302364 1-2 Tablet(s) PO Q4 PRN as needed pain 11/20/2017 No Stop Date Active cyanocobalamin (vit B-12) 1,000 mcg/mL injection solution RxNorm: 504782 1 Milliliter(s) Inj 11/20/2017 11/20/2017 Inactive Lomotil 2.5 mg-0.025 mg tablet RxNorm: 1314522 Tablet(s) PO TAKE ONE TABLET BY MOUTH EVERY 8 HOURS NEEDED 11/07/2017 01/04/2018 Inactive Synthroid 50 mcg tablet RxNorm: 812312 TAKE ONE TABLET BY MOUTH EVERY DAY. 10/16/2017 04/13/2018 Inactive potassium chloride ER 20 mEq tablet,extended release(part/ cryst) RxNorm: 9564440 TAKE ONE TABLET BY MOUTH DAILY WHEN YOU TAKE LASIX (FUROSEMIDE) 09/17/2017 03/11/2018 Inactive Lasix 20 mg tablet RxNorm: 284266 Tablet(s) TAKE ONE TABLET BY MOUTH EVERY DAY NEEDED FOR SWELLING. TAKE POTASSIUM WITH EACH DOSE 201701/07/2018 Inactive glipizide 10 mg tablet RxNorm: 028736 TAKE ONE TABLET BY MOUTH TWICE A DAY 08/28/2017 04/02/2018 Inactive Request already responded to by other means (e.g. phone or fax) glipizide 10 mg tablet RxNorm: 032134 Tablet(s) TAKE ONE TABLET BY MOUTH TWICE A DAY 08/23/2017 08/27/2017 Inactive cyanocobalamin (vit B-12) 1,000 mcg/mL injection solution RxNorm: 656606 1 Milliliter(s) Inj 08/21/2017 08/21/2017 Inactive Synthroid 50 mcg tablet RxNorm: 170536 TAKE ONE TABLET BY MOUTH EVERY DAY. 08/15/2017 10/13/2017 Inactive Tricor 145 mg tablet RxNorm: 938444 TAKE ONE TABLET BY MOUTH DAILY 07/31/2017 11/27/2017 Inactive metformin ER 500 mg tablet,extended release 24 hr RxNorm: 039786 TAKE TWO TABLETS BY MOUTH TWICE A DAY 07/31/20172017 Inactive spironolactone 25 mg tablet RxNorm: 130719 TAKE ONE TABLET BY MOUTH TWICE A DAY 07/31/2017 12/02/2017 Inactive Tenex 1 mg tablet RxNorm: 645438 TAKE ONE TABLET BY MOUTH DAILY 07/20/2017 01/15/2018 Inactive cyanocobalamin (vit B-12) 1,000 mcg/mL injection solution RxNorm: 322270 1 Milliliter(s) Inj 07/18/2017 07/18/2017 Inactive Flonase Allergy Relief 50 mcg/actuation nasal spray, suspension RxNorm: 0107285 1 [place] NASAL BID 06/18/20172017 Inactive Byetta 10 mcg/dose(250 mcg/mL)2.4 mL subcutaneous pen injector RxNorm: 335487 INJECT 10 MCG UNDER THE SKIN TWO TIMES A DAY ( START AFTER 5 MCG DOSE IS COMPLETE ) 06/18/2017 04/13/2018 Inactive potassium chloride ER 20 mEq tablet,extended release(part/ cryst) RxNorm: 3268557 TAKE ONE TABLET BY MOUTH DAILY WHEN YOU TAKE LASIX (FUROSEMIDE) 06/18/2017 09/15/2017 Inactive Kenalog 40 mg/mL suspension for injection RxNorm: 7582562 1 Milliliter(s) Inj 06/18/2017 06/18/2017 Inactive cyanocobalamin (vit B-12) 1,000 mcg/mL injection solution RxNorm: 032840 1 Milliliter(s) Inj 06/18/2017 06/18/2017 Inactive Lasix 20 mg tablet RxNorm: 331562 Tablet(s) TAKE ONE TABLET BY MOUTH EVERY DAY NEEDED FOR SWELLING. TAKE POTASSIUM WITH EACH DOSE 201609/09/2017 Inactive cyanocobalamin (vit B-12) 1,000 mcg/mL injection solution RxNorm: 489303 1 Milliliter(s) Inj 05/09/2017 05/09/2017 Inactive cyanocobalamin (vit B-12) 1,000 mcg/mL injection solution RxNorm: 791440 1 Milliliter(s) Inj 04/04/2017 04/04/2017 Inactive metformin ER 500 mg tablet,extended release 24 hr RxNorm: 810112 TAKE TWO TABLETS BY MOUTH TWICE A DAY 03/01/20172016 Inactive Kenalog 40 mg/mL suspension for injection RxNorm: 2868126 1 Milliliter(s) Inj 02/23/2017 02/23/2017 Inactive amlodipine 5 mg tablet RxNorm: 881991 TAKE ONE TABLET BY MOUTH TWICE A DAY 02/22/2017 11/18/2017 Inactive glipizide 10 mg tablet RxNorm: 998766 TAKE ONE TABLET BY MOUTH TWICE A DAY 02/12/2017 08/10/2017 Inactive cyanocobalamin (vit B-12) 1,000 mcg/mL injection solution RxNorm: 094847 Milliliter(s) Inj 01/23/2017 01/23/2017 Inactive Synthroid 50 mcg tablet RxNorm: 796744 TAKE ONE TABLET BY MOUTH EVERY DAY. 12/21/2016 06/18/2017 Inactive potassium chloride ER 20 mEq tablet,extended release(part/ cryst) RxNorm: 2963276 TAKE ONE TABLET BY MOUTH DAILY WHEN YOU TAKE LASIX (FUROSEMIDE) 12/21/2016 04/19/2017 Inactive Tricor 145 mg tablet RxNorm: 359507 TAKE ONE TABLET BY MOUTH DAILY 12/21/2016 06/06/2017 Inactive Lasix 20 mg tablet RxNorm: 810629 TAKE ONE TABLET BY MOUTH EVERY DAY NEEDED FOR SWELLING. TAKE POTASSIUM WITH EACH DOSE 12/11/2016 04/09/2017 Inactive cyanocobalamin (vit B-12) 1,000 mcg/mL injection solution RxNorm: 894663 1 Milliliter(s) Inj 11/14/2016 11/14/2016 Inactive simvastatin 20 mg tablet RxNorm: 788298 TAKE ONE TABLET BY MOUTH EVERY NIGHT AT BEDTIME 10/23/2016 04/15/2017 Inactive Tenex 1 mg tablet RxNorm: 969879 TAKE ONE TABLET BY MOUTH DAILY 10/16/2016 11/14/2016 Inactive glipizide 10 mg tablet RxNorm: 772841 TAKE ONE TABLET BY MOUTH TWICE A DAY 09/20/2016 02/11/2017 Inactive doxycycline hyclate 100 mg capsule RxNorm: 5702776 1 Capsule(s) PO BID 09/12/2016 09/18/2016 Inactive doxycycline hyclate 100 mg capsule RxNorm: 1767436 1 Capsule(s) PO BID 09/12/2016 09/11/2016 Inactive Phenergan with Codeine Syrup RxNorm: 5-10 Milliliter(s) PO Q6 PRN 09/07/2016 No Stop Date Active prednisone 20 mg tablet RxNorm: 979542 1 Tablet(s) PO BID 09/0709/11/2016 Inactive Kenalog 40 mg/mL suspension for injection RxNorm: 2918856 1 Milliliter(s) Inj 09/07/2016 09/07/2016 Inactive Tessalon Perles 100 mg capsule RxNorm: 191722 1 Capsule(s) PO TID PRN 09/01/2016 09/20/2016 Inactive Zyrtec 10 mg capsule RxNorm: 7246427 1 Capsule(s) PO daily 01/28/2018 Inactive Flonase Allergy Relief 50 mcg/actuation nasal spray, suspension RxNorm: 5891447 1 [place] NASAL BID 08/29/20162016 Inactive cyanocobalamin (vit B-12) 1,000 mcg/mL injection solution RxNorm: 781495 1 Milliliter(s) Inj 08/29/2016 08/29/2016 Inactive metformin ER 500 mg tablet,extended release 24 hr RxNorm: 362714 Tablet(s) TAKE TWO TABLETS BY MOUTH TWICE A DAY 08/28/2016 02/23/2017 Inactive Lopressor 100 mg tablet RxNorm: 246426 TAKE ONE TABLET BY MOUTH DAILY 06/27/2016 04/15/2017 Inactive cetirizine 10 mg tablet RxNorm: 7763308 1 Tablet(s) PO daily 07/11/2016 Inactive Flonase Allergy Relief 50 mcg/actuation nasal spray, suspension RxNorm: 7802987 1 [place] NASAL BID 06/12/20162016 Inactive cyanocobalamin (vit B-12) 1,000 mcg/mL injection solution RxNorm: 650377 Milliliter(s) Inj 06/12/2016 06/12/2016 Inactive spironolactone 25 mg tablet RxNorm: 402238 TAKE ONE TABLET BY MOUTH TWICE A DAY 06/06/2016 03/02/2017 Inactive Request already responded to by other means (e.g. phone or fax) spironolactone 25 mg tablet RxNorm: 015961 Tablet(s) TAKE ONE TABLET BY MOUTH TWICE A DAY 05/29/2016 06/05/2016 Inactive ceftriaxone 500 mg solution for injection RxNorm: 2775409 2 Milliliter(s) Inj 05/04/2016 05/04/2016 Inactive cyanocobalamin (vit B-12) 1,000 mcg/mL injection solution RxNorm: 457789 Milliliter(s) Inj 05/04/2016 05/04/2016 Inactive Cipro 500 mg tablet RxNorm: 346476 1 Tablet(s) PO BID 201505/10/2016 Inactive OneTouch Ultra Test strips RxNorm: TEST DAILY 04/24/2016 04/18/2017 Inactive Byetta 10 mcg/dose(250 mcg/mL)2.4 mL subcutaneous pen injector RxNorm: 018763 INJECT 10 MCG UNDER THE SKIN TWO TIMES A DAY ( START AFTER 5 MCG DOSE IS COMPLETE ) 04/18/2016 03/13/2017 Inactive Lasix 20 mg tablet RxNorm: 926092 TAKE ONE TABLET BY MOUTH EVERY DAY NEEDED FOR SWELLING. TAKE POTASSIUM WITH EACH DOSE 04/07/2016 09/03/2016 Inactive potassium chloride ER 20 mEq tablet,extended release(part/ cryst) RxNorm: 8162296 TAKE ONE TABLET BY MOUTH DAILY WHEN YOU TAKE LASIX (FUROSEMIDE) 04/07/2016 09/03/2016 Inactive triamcinolone acetonide 0.5 % topical cream RxNorm: 6712601 1 Application TOP BID to lesions on buttock 03/30/20162015 Inactive metformin ER 500 mg tablet,extended release 24 hr RxNorm: 555231 TAKE TWO TABLETS BY MOUTH TWICE A DAY 03/23/20162016 Inactive cyanocobalamin (vit B-12) 1,000 mcg/mL injection solution RxNorm: 755232 Milliliter(s) Inj 03/17/2016 03/17/2016 Inactive glipizide 10 mg tablet RxNorm: 548508 TAKE ONE TABLET BY MOUTH TWICE A DAY 03/17/2016 04/02/2018 Inactive Request already responded to by other means (e.g. phone or fax) glipizide 10 mg tablet RxNorm: 615092 Tablet(s) TAKE ONE TABLET BY MOUTH TWICE A DAY 03/13/2016 03/16/2016 Inactive Tricor 145 mg tablet RxNorm: 389462 TAKE ONE TABLET BY MOUTH ONCE A DAY 02/18/2016 02/11/2017 Inactive Request already responded to by other means (e.g. phone or fax) amlodipine 5 mg tablet RxNorm: 066976 TAKE ONE TABLET BY MOUTH TWICE A DAY 02/18/2016 05/06/2018 Inactive Request already responded to by other means (e.g. phone or fax) cyanocobalamin (vit B-12) 1,000 mcg/mL injection solution RxNorm: 146043 1 Milliliter(s) Inj 02/15/2016 02/15/2016 Inactive amlodipine 5 mg tablet RxNorm: 287986 Tablet(s) TAKE ONE TABLET BY MOUTH TWICE A DAY 02/14/2016 02/17/2016 Inactive Tricor 145 mg tablet RxNorm: 102861 1 Tablet(s) PO daily TAKE ONE TABLET BY MOUTH ONCE A DAY 02/14/2016 02/17/2016 Inactive Synthroid 50 mcg tablet RxNorm: 504373 TAKE ONE TABLET BY MOUTH EVERY DAY. 01/31/2016 08/27/2016 Inactive hydrocodone 5 mg-acetaminophen 325 mg tablet RxNorm: 752646 1-2 Tablet(s) PO Q4 PRN as needed pain 01/28/2016 11/19/2017 Inactive cyanocobalamin (vit B-12) 1,000 mcg/mL injection solution RxNorm: 442606 Milliliter(s) Inj 01/19/2016 01/19/2016 Inactive metformin ER 500 mg tablet,extended release 24 hr RxNorm: 844788 TAKE TWO TABLETS BY MOUTH TWICE A DAY 01/18/20162015 Inactive cyanocobalamin (vit B-12) 1,000 mcg/mL injection solution RxNorm: 719429 1 Milliliter(s) Inj 12/07/2015 12/07/2015 Inactive metformin ER 500 mg tablet,extended release 24 hr RxNorm: 966651 TAKE TWO TABLETS BY MOUTH TWICE A DAY 10/18/20152015 Inactive simvastatin 20 mg tablet RxNorm: 848230 1 Tablet(s) PO QHS TAKE ONE TABLET BY MOUTH AT BEDTIME 10/08/2015 10/01/2016 Inactive Tenex 1 mg tablet RxNorm: 091134 TAKE ONE TABLET BY MOUTH DAILY 10/04/2015 09/27/2016 Inactive Lopressor 100 mg tablet RxNorm: 474362 TAKE ONE TABLET BY MOUTH DAILY 09/20/2015 06/15/2016 Inactive Diflucan 150 mg tablet RxNorm: 810106 1 Tablet(s) PO daily 02/201609/12/2015 Inactive cyanocobalamin (vit B-12) 1,000 mcg/mL injection kit RxNorm: 415036 kit Inj 09/06/2015 09/06/2015 Inactive gentamicin 0.3 % eye drops RxNorm: 695871 2 Drop(s) OPH QID 02/201609/12/2015 Inactive ceftriaxone 500 mg solution for injection RxNorm: 3129521 Inj 09/06/2015 09/06/2015 Inactive Keflex 500 mg capsule RxNorm: 737979 1 Capsule(s) PO TID 201509/12/2015 Inactive hydrocodone 5 mg-acetaminophen 325 mg tablet RxNorm: 581129 1-2 Tablet(s) PO Q4 PRN as needed pain 08/09/2015 01/27/2016 Inactive Lortab 5 mg-500 mg tablet RxNorm: 291321 1-2 Tablet(s) PO Q4 PRN as needed pain 08/03/2015 08/08/2015 Inactive Diflucan 150 mg tablet RxNorm: 137859 1 Tablet(s) PO daily 07/16/2015 Inactive Lasix 20 mg tablet RxNorm: 796540 TAKE ONE TABLET BY MOUTH EVERY DAY NEEDED FOR SWELLING. TAKE POTASSIUM WITH EACH DOSE 07/13/2015 01/08/2016 Inactive spironolactone 25 mg tablet RxNorm: 852370 TAKE ONE TABLET BY MOUTH TWICE A DAY 07/13/2015 05/07/2016 Inactive potassium chloride ER 20 mEq tablet,extended release(part/ cryst) RxNorm: 730622 TAKE ONE TABLET BY MOUTH DAILY WHEN YOU TAKE LASIX (FUROSEMIDE) 07/13/2015 01/08/2016 Inactive Tessalon Perles 100 mg capsule RxNorm: 649226 1 Capsule(s) PO TID PRN 07/05/2015 08/31/2016 Inactive Keflex 500 mg capsule RxNorm: 397278 1 Capsule(s) PO TID 201407/14/2015 Inactive Kenalog 40 mg/mL suspension for injection RxNorm: 3915483 Milliliter(s) Inj 07/05/2015 07/05/2015 Inactive ceftriaxone 500 mg solution for injection RxNorm: 2398168 Inj 07/05/2015 07/05/2015 Inactive cyanocobalamin (vit B-12) 1,000 mcg/mL injection solution RxNorm: 526917 Milliliter(s) Inj 06/28/2015 06/28/2015 Inactive Synthroid 50 mcg tablet RxNorm: 418882 TAKE ONE TABLET BY MOUTH EVERY DAY. 06/21/2015 11/17/2015 Inactive metformin ER 500 mg tablet,extended release 24 hr RxNorm: 416411 TAKE TWO TABLETS BY MOUTH TWICE A DAY 06/14/20152015 Inactive glipizide 10 mg tablet RxNorm: 869177 TAKE ONE TABLET BY MOUTH TWICE A DAY 05/31/2015 02/24/2016 Inactive cyanocobalamin (vit B-12) 1,000 mcg/mL injection solution RxNorm: 524341 Milliliter(s) Inj 05/13/2015 05/13/2015 Inactive Tricor 145 mg tablet RxNorm: 280359 1 Tablet(s) PO daily TAKE ONE TABLET BY MOUTH ONCE A DAY 05/07/2015 05/06/2015 Inactive Tricor 145 mg tablet RxNorm: 450641 1 Tablet(s) PO daily TAKE ONE TABLET BY MOUTH ONCE A DAY 05/07/2015 01/31/2016 Inactive Tricor 145 mg tablet RxNorm: 127325 TAKE ONE TABLET BY MOUTH ONCE A DAY 05/06/2015 05/06/2015 Inactive Byetta 10 mcg/dose(250 mcg/mL)2.4 mL subcutaneous pen injector RxNorm: 862448 Microgram(s) SQ 10mcg twice daily ( start after 5mcg dose is complete) 04/01/2015 03/25/2016 Inactive Byetta 5 mcg/dose (250 mcg/mL)1.2 mL subcutaneous pen injector RxNorm: 023202 Microgram(s) SQ 5mcg twice daily x 1 month 03/04/2015 04/02/2015 Inactive Byetta 10 mcg/dose(250 mcg/mL)2.4 mL subcutaneous pen injector RxNorm: 836406 Microgram(s) SQ 10mcg twice daily ( start after 5mcg dose is complete) 03/04/2015 03/31/2015 Inactive Byetta 5 mcg/dose (250 mcg/mL)1.2 mL subcutaneous pen injector RxNorm: 959862 Microgram(s) SQ 5mcg twice daily x 1 month 03/04/2015 03/03/2015 Inactive Byetta 10 mcg/dose(250 mcg/mL)2.4 mL subcutaneous pen injector RxNorm: 429711 Microgram(s) SQ 10mcg twice daily ( start after 5mcg dose is complete) 03/04/2015 03/03/2015 Inactive cyanocobalamin (vit B-12) 1,000 mcg/mL injection solution RxNorm: 306578 Milliliter(s) Inj 02/23/2015 02/23/2015 Inactive cyanocobalamin (vit B-12) 1,000 mcg/mL injection solution RxNorm: 710433 Milliliter(s) Inj 01/08/2015 01/08/2015 Inactive simvastatin 20 mg tablet RxNorm: 371934 TAKE ONE TABLET BY MOUTH AT BEDTIME 01/07/2015 10/03/2015 Inactive Lortab 5 mg-500 mg tablet RxNorm: 519435 1-2 Tablet(s) PO Q4 PRN as needed q 4- 6hrs prn pain 12/15/2014 08/02/2015 Inactive Lortab 5 mg-500 mg tablet RxNorm: 529954 1-2 Tablet(s) PO Q4 PRN as needed q 4- 6hrs prn pain 12/15/2014 08/02/2015 Inactive amlodipine 5 mg tablet RxNorm: 013099 TAKE ONE TABLET BY MOUTH TWICE A DAY 12/14/2014 12/13/2014 Inactive amlodipine 5 mg tablet RxNorm: 842297 TAKE ONE TABLET BY MOUTH TWICE A DAY 12/14/2014 03/13/2015 Inactive cyanocobalamin (vit B-12) 1,000 mcg/mL injection solution RxNorm: 650607 Milliliter(s) Inj 12/08/2014 12/08/2014 Inactive Synthroid 50 mcg tablet RxNorm: 170253 TAKE ONE TABLET BY MOUTH EVERY DAY. 10/29/2014 04/26/2015 Inactive Lasix 20 mg tablet RxNorm: 678169 Tablet(s) TAKE ONE TABLET BY MOUTH EVERY DAY NEEDED FOR SWELLING. TAKE POTASSIUM WITH EACH DOSE 201405/25/2015 Inactive potassium chloride ER 20 mEq tablet,extended release(part/ cryst) RxNorm: 783511 Tablet(s) TAKE ONE TABLET BY MOUTH EVERY DAY WHEN YOU TAKE LASIX (FUROSEMIDE) 10/28/2014 05/25/2015 Inactive cyanocobalamin (vit B-12) 1,000 mcg/mL injection solution RxNorm: 438327 Milliliter(s) Inj 10/26/2014 10/26/2014 Inactive OneTouch Ultra Test strips RxNorm: TEST TWO TIMES A DAY 201405/10/2028 Active OneTouch Ultra Test strips RxNorm: 1 Miscellaneous BID 201410/21/2014 Inactive dx: 250.02 Victoza 2-J Luis 0.6 mg/0.1 mL (18 mg/3 mL) subcutaneous pen injector RxNorm: 978794 1.8 Milligram(s) SQ daily 09/24/201402/22 Inactive cyanocobalamin (vit B-12) 1,000 mcg/mL injection solution RxNorm: 943439 Milliliter(s) Inj 09/24/2014 09/24/2014 Inactive Tenex 1 mg tablet RxNorm: 353691 1 Tablet(s) PO daily TAKE ONE TABLET BY MOUTH EVERY DAY 09/24/2014 10/03/2015 Inactive Lopressor 100 mg tablet RxNorm: 544128 TAKE ONE TABLET BY MOUTH EVERY DAY 09/14/2014 06/10/2015 Inactive Lopressor 100 mg tablet RxNorm: 454481 1 Tablet(s) PO daily TAKE ONE TABLET BY MOUTH EVERY DAY 09/14/2014 09/13/2014 Inactive cyanocobalamin (vit B-12) 1,000 mcg/mL injection solution RxNorm: 858756 Milliliter(s) Inj 08/24/2014 08/24/2014 Inactive [SAVINGS FOR UNINSURED PATIENTS - - BIN:[id number], PCN: [id number], Group: [id number], ID# [id number], Process claim through [employer], for questions: . THIS IS NOT INSURANCE.] Victoza 2-J Luis 0.6 mg/0.1 mL (18 mg/3 mL) subcutaneous pen injector RxNorm: 850905 1.2 Milligram(s) SQ daily 08/05/201409/23 Inactive glipizide 10 mg tablet RxNorm: 040879 TAKE ONE TABLET BY MOUTH TWICE A DAY 07/28/2014 05/23/2015 Inactive Tenex 1 mg tablet RxNorm: 952333 TAKE ONE TABLET BY MOUTH EVERY DAY 07/02/2014 07/01/2014 Inactive Tenex 1 mg tablet RxNorm: 466014 TAKE ONE TABLET BY MOUTH EVERY DAY 07/02/2014 09/23/2014 Inactive spironolactone 25 mg tablet RxNorm: 965903 TAKE ONE TABLET BY MOUTH TWICE A DAY 07/02/2014 04/27/2015 Inactive spironolactone 25 mg tablet RxNorm: 689093 Tablet(s) PO TAKE ONE TABLET BY MOUTH TWICE A DAY 06/30/2014 07/01/2014 Inactive Tenex 1 mg tablet RxNorm: 043150 Tablet(s) PO TAKE ONE TABLET BY MOUTH EVERY DAY 06/30/2014 07/01/2014 Inactive Lortab 5 mg-500 mg tablet RxNorm: 953042 1-2 Tablet(s) PO Q4 PRN as needed q 4- 6hrs prn pain 06/22/2014 12/14/2014 Inactive metformin ER 500 mg tablet,extended release 24 hr RxNorm: 038549 Tablet(s) PO TAKE TWO TABLETS BY MOUTH TWICE A DAY 06/05/2014 06/13/2015 Inactive [SAVINGS FOR UNINSURED PATIENTS -- BIN:[id number], PCN: [id number], Group: [id number], ID# [id number], Process claim through [employer], for questions: . THIS IS NOT INSURANCE.] cyanocobalamin (vit B-12) 1,000 mcg/mL injection solution RxNorm: 095777 1 Milliliter(s) Inj monthly 06/01/201406/01 Inactive Kenalog 40 mg/mL suspension for injection RxNorm: 1059769 1 Milliliter(s) Inj 05/11/2014 05/11/2014 Inactive cyanocobalamin (vit B-12) 1,000 mcg/mL injection kit RxNorm: 569329 Milliliter(s) Inj 04/27/2014 04/27/2014 Inactive amlodipine 5 mg tablet RxNorm: 468611 TAKE ONE TABLET BY MOUTH TWICE A DAY 04/02/2014 07/30/2014 Inactive cyanocobalamin (vit B-12) 1,000 mcg/mL injection kit RxNorm: 983442 1 Milliliter(s ) Inj 03/24/2014 03/24/2014 Inactive [SAVINGS FOR UNINSURED PATIENTS -- BIN:[id number] , PCN: [id number], Group: [id number], ID# [id number], Process claim through [employer], for questions: . THIS IS NOT INSURANCE.] cyanocobalamin (vit B-12) 1,000 mcg/mL injection solution RxNorm: 975143 1 Milliliter(s) Inj 03/24/2014 03/24/2014 Inactive Synthroid 50 mcg tablet RxNorm: 464621 TAKE ONE TABLET BY MOUTH EVERY DAY. 03/01/2014 09/26/2014 Inactive Lasix 20 mg tablet RxNorm: 760869 TAKE ONE TABLET BY MOUTH EVERY DAY NEEDED FOR SWELLING. TAKE POTASSIUM WITH EACH DOSE 03/01/2014 09/26/2014 Inactive potassium chloride ER 20 mEq tablet,extended release(part/ cryst) RxNorm: 334891 TAKE ONE TABLET BY MOUTH EVERY DAY WHEN YOU TAKE LASIX (FUROSEMIDE) 03/01/2014 09/26/2014 Inactive cyanocobalamin (vit B-12) 1,000 mcg/mL injection solution RxNorm: 022051 1 Milliliter(s) Inj 02/24/2014 02/24/2014 Inactive Tricor 145 mg tablet RxNorm: 809326 TAKE ONE TABLET BY MOUTH EVERY DAY 02/16/2014 02/15/2014 Inactive Victoza 2-J Luis 0.6 mg/0.1 mL (18 mg/3 mL) subcutaneous pen injector RxNorm: 492402 1.2 Milligram(s) SQ daily 02/16/201408/04 Inactive Tricor 145 mg tablet RxNorm: 443268 TAKE ONE TABLET BY MOUTH EVERY DAY 02/16/2014 06/15/2014 Inactive Synthroid 50 mcg tablet RxNorm: 662102 TAKE ONE TABLET BY MOUTH EVERY DAY. 02/02/2014 03/03/2014 Inactive Synthroid 50 mcg tablet RxNorm: 878803 TAKE ONE TABLET BY MOUTH EVERY DAY. 02/02/2014 02/01/2014 Inactive simvastatin 20 mg tablet RxNorm: 794624 TAKE ONE TABLET BY MOUTH AT BEDTIME 01/12/2014 01/06/2015 Inactive cyanocobalamin (vit B-12) 1,000 mcg/mL injection solution RxNorm: 010215 Milliliter(s) Inj 01/09/2014 01/09/2014 Inactive Lortab 5 mg-500 mg tablet RxNorm: 189487 1-2 Tablet(s) PO Q4 PRN q 4-6hrs prn pain 12/23/2013 No Stop Date Active Lasix 20 mg tablet RxNorm: 423232 Tablet(s) PO TAKE ONE TABLET BY MOUTH EVERY DAY NEEDED FOR SWELLING. TAKE POTASSIUM WITH EACH DOSE 12/201302/28/2014 Inactive potassium chloride ER 20 mEq tablet,extended release(part/ cryst) RxNorm: 597952 Tablet(s) PO TAKE ONE TABLET BY MOUTH EVERY DAY WHEN YOU TAKE LASIX (FUROSEMIDE ) 12/02/2013 02/28/2014 Inactive Lomotil 2.5 mg-0.025 mg tablet RxNorm: 7584133 Tablet(s) PO TAKE ONE TABLET BY MOUTH EVERY 8 HOURS NEEDED 11/27/2013 01/28/2018 Inactive (Appended: Controlled substance eRx refill - RxReferenceNumber: [id number]) Lomotil 2.5 mg-0.025 mg tablet RxNorm: 1838394 1 Tablet(s) PO Q8 PRN 11/27/2013 05/24/2014 Inactive cyanocobalamin (vit B-12) 1,000 mcg/mL injection solution RxNorm: 485749 1 Milliliter(s) Inj 11/27/2013 11/27/2013 Inactive Vitamin B-12 1,000 mcg/mL injection solution RxNorm: 621175 1 Milliliter(s) Inj monthly 11/24/2013 11/18/2014 Inactive ok to give multidose if available Synthroid 50 mcg tablet RxNorm: 319717 Tablet(s) PO TAKE ONE TABLET BY MOUTH EVERY DAY. 10/31/2013 02/01/2014 Inactive simvastatin 20 mg tablet RxNorm: 360350 Tablet(s) PO TAKE ONE TABLET BY MOUTH AT BEDTIME 10/10/2013 01/11/2014 Inactive Vitamin B-12 1,000 mcg/mL injection solution RxNorm: 675475 1 Milliliter(s) Inj monthly 09/30/2013 09/29/2013 Inactive ok to give multidose if available Vitamin B-12 1,000 mcg/mL injection solution RxNorm: 761796 1 Milliliter(s) Inj monthly 09/30/2013 11/23/2013 Inactive ok to give multidose if available Vitamin B-12 1,000 mcg/mL injection solution RxNorm: 174233 1 Milliliter(s) Inj 09/18/2013 09/18/2013 Inactive Lopressor 100 mg tablet RxNorm: 642170 Tablet(s) PO TAKE ONE TABLET BY MOUTH EVERY DAY 09/15/2013 09/13/2014 Inactive Vitamin B-12 1,000 mcg/mL injection solution RxNorm: 264880 1 Milliliter(s) Inj 08/22/2013 08/22/2013 Inactive glipizide 10 mg tablet RxNorm: 058212 Tablet(s) PO TAKE ONE TABLET BY MOUTH TWICE A DAY 08/15/2013 07/27/2014 Inactive Tenex 1 mg tablet RxNorm: 218088 Tablet(s) PO TAKE ONE TABLET BY MOUTH EVERY DAY 08/05/2013 06/29/2014 Inactive potassium chloride ER 20 mEq tablet,extended release(part/ cryst) RxNorm: 027029 Tablet(s) PO TAKE ONE TABLET BY MOUTH EVERY DAY WHEN YOU TAKE LASIX (FUROSEMIDE ) 07/31/2013 12/01/2013 Inactive spironolactone 25 mg tablet RxNorm: 544156 Tablet(s) PO TAKE ONE TABLET BY MOUTH TWICE A DAY 07/31/2013 06/29/2014 Inactive Lasix 20 mg tablet RxNorm: 667033 Tablet(s) PO TAKE ONE TABLET BY MOUTH EVERY DAY NEEDED FOR SWELLING. TAKE POTASSIUM WITH EACH DOSE 08/201312/01/2013 Inactive Vitamin B-12 1,000 mcg/mL injection solution RxNorm: 069119 Milliliter(s) Inj 07/28/2013 07/28/2013 Inactive Synthroid 50 mcg tablet RxNorm: 825225 Tablet(s) PO TAKE ONE TABLET BY MOUTH EVERY DAY. PATIENT DUE FOR TSH LEVEL LAB 06/30/2013 06/29/2013 Inactive Synthroid 50 mcg tablet RxNorm: 238051 Tablet(s) PO TAKE ONE TABLET BY MOUTH EVERY DAY. PATIENT DUE FOR TSH LEVEL LAB 06/30/2013 10/30/2013 Inactive potassium chloride ER 20 mEq tablet,extended release(part/ cryst) RxNorm: 444075 Tablet(s) PO TAKE ONE TABLET BY MOUTH EVERY DAY WHEN YOU TAKE LASIX (FUROSEMIDE ) 06/23/2013 07/30/2013 Inactive Lasix 20 mg tablet RxNorm: 314743 Tablet(s) PO TAKE ONE TABLET BY MOUTH EVERY DAY NEEDED FOR SWELLING. TAKE POTASSIUM WITH EACH DOSE 07/30/2013 Inactive amlodipine 5 mg tablet RxNorm: 796583 Tablet(s) PO TAKE ONE TABLET BY MOUTH TWICE A DAY 06/17/2013 04/01/2014 Inactive metformin ER 500 mg tablet,extended release 24 hr RxNorm: 356289 Tablet(s) PO TAKE TWO TABLETS BY MOUTH TWICE A DAY 05/26/2013 06/04/2014 Inactive metformin ER 500 mg tablet,extended release 24 hr RxNorm: 772314 Tablet(s) PO TAKE TWO TABLETS BY MOUTH TWICE A DAY 05/26/2013 05/25/2013 Inactive Vitamin B-12 1,000 mcg/mL injection solution RxNorm: 590581 1 Milliliter(s) Inj 05/21/2013 05/21/2013 Inactive Vitamin B-12 1,000 mcg/mL Injection RxNorm: 656315 Milliliter(s) Inj 04/23/2013 04/23/2013 Inactive Influenza Virus Vaccine 0.5 mL RxNorm: IM 04/23/2013 04/23/2013 Inactive Synthroid 50 mcg tablet RxNorm: 461981 Tablet(s) PO TAKE ONE TABLET BY MOUTH EVERY DAY. PATIENT DUE FOR TSH LEVEL LAB 04/17/2013 06/29/2013 Inactive Lasix 20 mg tablet RxNorm: 939789 Tablet(s) PO TAKE ONE TABLET BY MOUTH EVERY DAY NEEDED FOR SWELLING. TAKE POTASSIUM WITH EACH DOSE 06/22/2013 Inactive potassium chloride ER 20 mEq tablet,extended release(part/ cryst) RxNorm: 7457019 Tablet(s) PO TAKE ONE TABLET BY MOUTH EVERY DAY WHEN YOU TAKE LASIX (FUROSEMIDE ) 04/17/2013 06/22/2013 Inactive simvastatin 20 mg tablet RxNorm: 087910 Tablet(s) PO TAKE ONE TABLET BY MOUTH AT BEDTIME 04/10/2013 10/09/2013 Inactive Vitamin B-12 1,000 mcg/mL Injection RxNorm: 330041 1 Milliliter(s) Inj 03/24/2013 03/24/2013 Inactive Lopressor 100 mg tablet RxNorm: 350103 Tablet(s) PO TAKE ONE TABLET BY MOUTH EVERY DAY 03/18/2013 09/14/2013 Inactive cyanocobalamin (vitamin B-12) 1,000 mcg/mL Injection RxNorm: 707798 Milliliter(s) Inj 02/20/2013 02/20/2013 Inactive Tricor 145 mg tablet RxNorm: 505204 Tablet(s) PO TAKE ONE TABLET BY MOUTH EVERY DAY 02/14/2013 02/15/2014 Inactive Vitamin B-12 1,000 mcg/mL Injection RxNorm: 163415 1 Milliliter(s) Inj 01/22/2013 01/22/2013 Inactive potassium chloride ER 20 mEq tablet,extended release(part/ cryst) RxNorm: 6086523 1 Tablet(s) PO QDAY PRN take when taking prn lasix 201204/16/2013 Inactive Lasix 20 mg tablet RxNorm: 877717 1 Tablet(s) PO QDAY PRN daily prn swelling - to take kcl with lasix 01/22/20132012 Inactive cyanocobalamin (vitamin B-12) 1,000 mcg/mL Injection RxNorm: 861529 Milliliter(s) Inj 12/19/2012 12/19/2012 Inactive cyanocobalamin (vitamin B-12) 1,000 mcg/mL Injection RxNorm: 333770 Milliliter(s) Inj 11/20/2012 11/20/2012 Inactive Diflucan 150 mg tablet RxNorm: 364313 1 Tablet(s) PO daily 11/21/2012 Inactive Synthroid 50 mcg tablet RxNorm: 714605 Tablet(s) PO TAKE ONE TABLET BY MOUTH EVERY DAY. PATIENT DUE FOR TSH LEVEL LAB 11/18/2012 04/16/2013 Inactive Keflex 500 mg capsule RxNorm: 744859 1 Capsule(s) PO TID 201211/19/2012 Inactive Keflex 500 mg capsule RxNorm: 251427 1 Capsule(s) PO TID 201211/12/2012 Inactive Byetta 10 mcg/0.04 mL per dose Sub-Q Pen Injector RxNorm: 080712 Pen Injector SQ DIAL AND INJECT SUBCUTANEOUSLY 10 MCG TWICE DAILY WITHIN 60 MINUTES BEFORE MORNING AND EVENING MEALS. DO NOT ADMINISTER AFTER A MEAL. 04/03/2014 Inactive cyanocobalamin (vitamin B-12) 1,000 mcg/mL Injection RxNorm: 973413 1 Milliliter(s ) Inj 10/23/2012 10/23/2012 Inactive Lortab 5 mg-500 mg tablet RxNorm: 704494 1-2 Tablet(s) PO Q4 PRN q 4-6hrs prn pain 10/02/2012 12/22/2013 Inactive cyanocobalamin (vitamin B-12) 1,000 mcg/mL Injection RxNorm: 556495 Milliliter(s) Inj 09/16/2012 09/16/2012 Inactive Vitamin B-12 1,000 mcg/mL Injection RxNorm: 381993 1 Milliliter(s) Inj 08/15/2012 08/15/2012 Inactive glipizide 10 mg tablet RxNorm: 886352 Tablet(s) PO TAKE ONE TABLET BY MOUTH TWICE A DAY 08/12/2012 08/14/2013 Inactive Tenex 1 mg tablet RxNorm: 562684 Tablet(s) PO TAKE ONE TABLET BY MOUTH EVERY DAY 08/12/2012 08/04/2013 Inactive Kenalog 40 mg/mL Susp for Injection RxNorm: 2314749 1 Milliliter(s) Inj 08/06/2012 01/22/2013 Inactive spironolactone 25 mg tablet RxNorm: 523583 Tablet(s) PO TAKE ONE TABLET BY MOUTH TWICE A DAY 07/29/2012 07/30/2013 Inactive cefdinir 300 mg capsule RxNorm: 927441 1 Capsule(s) PO BID 08/01/2012 Inactive cefdinir 300 mg capsule RxNorm: 758913 1 Capsule(s) PO BID 07/25/2012 Inactive Vitamin B-12 1,000 mcg/mL Injection RxNorm: 054410 1 Milliliter(s) Inj 07/19/2012 07/19/2012 Inactive simvastatin 20 mg tablet RxNorm: 841241 Tablet(s) PO TAKE ONE TABLET BY MOUTH AT BEDTIME 07/08/2012 04/09/2013 Inactive simvastatin 20 mg tablet RxNorm: 290635 Tablet(s) PO TAKE ONE TABLET BY MOUTH AT BEDTIME 07/08/2012 10/07/2015 Inactive Synthroid 50 mcg tablet RxNorm: 622103 1 Tablet(s) PO daily 12/201110/31/2012 Inactive Please advise patient due for TSH level. amlodipine 5 mg tablet RxNorm: 834501 1 Tablet(s) PO BID 201112/15/2012 Inactive amlodipine 5 mg tablet RxNorm: 543370 1 Tablet(s) PO BID 201106/18/2012 Inactive Vitamin B-12 1,000 mcg/mL Injection RxNorm: 583265 Milliliter(s) Inj 06/19/2012 06/19/2012 Inactive Lopressor 100 mg tablet RxNorm: 196980 Tablet(s) PO 06/17/2012 03/17/2013 Inactive TAKE ONE TABLET BY MOUTH EVERY DAY Vitamin B-12 1,000 mcg/mL Injection RxNorm: 508628 Milliliter(s) Inj 05/22/2012 05/22/2012 Inactive Synthroid 50 mcg tablet RxNorm: 859075 1 Tablet(s) PO daily 06/11/2012 Inactive Please advise patient due for TSH level. Diflucan 150 mg tablet RxNorm: 122838 1 Tablet(s) PO daily 11/18/2012 Inactive metformin ER 500 mg tablet,extended release 24 hr RxNorm: 421594 2 Tablet(s) PO BID 04/25/2012 05/19/2013 Inactive Vitamin B-12 1,000 mcg/mL Injection RxNorm: 635522 Milliliter(s) Inj 04/22/2012 04/22/2012 Inactive Vitamin B-12 1,000 mcg/mL Injection RxNorm: 991983 Milliliter(s) Inj 03/19/2012 03/19/2012 Inactive Vitamin B-12 1,000 mcg/mL Injection RxNorm: 866464 Milliliter(s) Inj 02/15/2012 02/15/2012 Inactive Tricor 145 mg tablet RxNorm: 377859 1 Tablet(s) PO daily 201102/13/2013 Inactive Vitamin B-12 1,000 mcg/mL Injection RxNorm: 909658 Milliliter(s) Inj 01/18/2012 01/18/2012 Inactive Kenalog 40 mg/mL Susp for Injection RxNorm: 3375381 1 Milliliter(s) Inj 12/28/2011 12/28/2011 Inactive Vitamin B-12 1,000 mcg/mL Injection RxNorm: 421195 Milliliter(s) Inj 12/20/2011 12/20/2011 Inactive omeprazole 20 mg Cap, delayed release RxNorm: 498388 1 Capsule(s) PO daily 12/07/2011 11/30/2012 Inactive may take bid if nec cyanocobalamin (vitamin B-12) 1,000 mcg/mL Injection RxNorm: 352946 1 Milliliter(s ) Inj 11/07/2011 11/07/2011 Inactive cyanocobalamin (vitamin B-12) 1,000 mcg/mL Injection RxNorm: 856214 1 Milliliter(s ) Inj 10/03/2011 10/03/2011 Inactive Synthroid 50 mcg tablet RxNorm: 357557 1 Tablet(s) PO daily 03/08/2012 Inactive Byetta 10 mcg/0.04 mL per dose Sub-Q Pen Injector RxNorm: 253553 10 Microgram(s) SQ BID 08/29/2011 09/21/2012 Inactive metformin ER 500 mg tablet,extended release 24 hr RxNorm: 200467 2 Tablet(s) PO BID 08/15/2011 02/10/2012 Inactive cyanocobalamin (vitamin B-12) 1,000 mcg/mL Injection RxNorm: 002705 1 Milliliter(s ) Inj 07/28/2011 07/28/2011 Inactive NovoFine 30 Needle RxNorm: 1 Miscellaneous BID 07/28/2011 03/18/2013 Inactive OneTouch Ultra Test strips RxNorm: 1 Miscellaneous BID 201003/18/2013 Inactive guanfacine 1 mg Tab RxNorm: 978995 1 Tablet(s) PO daily 201007/10/2012 Inactive glipizide 10 mg tablet RxNorm: 178154 1 Tablet(s) PO BID 201008/09/2012 Inactive Tenex 1 mg tablet RxNorm: 804754 1 Tablet(s) PO daily 201008/09/2012 Inactive lisinopril 20 mg tablet RxNorm: 791645 1 Tablet(s) PO daily pt 07/04/2011 04/21/2012 Inactive pt may have #90 with year if insurance pays spironolactone 25 mg tablet RxNorm: 877730 1 Tablet(s) PO BID 07/03/2011 07/26/2012 Inactive simvastatin 20 mg Tab RxNorm: 155647 1 Tablet(s) PO QHS 201006/28/2011 Inactive cyanocobalamin (vitamin B-12) 1,000 mcg/mL Injection RxNorm: 943857 Milliliter(s) Inj 06/29/2011 06/29/2011 Inactive simvastatin 20 mg tablet RxNorm: 505921 1 Tablet(s) PO QHS 07/201006/22/2012 Inactive Lopressor 100 mg tablet RxNorm: 574273 1 Tablet(s) PO daily 06/16/2012 Inactive ketorolac 60 mg/2 mL IM RxNorm: 693266 Milliliter(s) IM 201005/23/2011 Inactive cyanocobalamin (vitamin B-12) 1,000 mcg/mL Injection RxNorm: 352840 Milliliter(s) Inj 05/23/2011 05/23/2011 Inactive Influenza Virus Vaccine 0.5 mL RxNorm: IM 04/26/2011 04/26/2011 Inactive Vitamin B-12 1,000 mcg/mL Injection RxNorm: 087659 Milliliter(s) Inj 04/26/2011 04/26/2011 Inactive Lomotil 2.5 mg-0.025 mg tablet RxNorm: 2230711 1 Tablet(s) PO Q8 PRN 04/26/2011 11/27/2013 Inactive atorvastatin 10 mg tablet RxNorm: 206631 1 Tablet(s) PO QHS No Start Date Active multivitamin tablet RxNorm: 1 Tablet(s) PO daily No Start Date Active clopidogrel 75 mg tablet RxNorm: 341283 1 Tablet(s) PO daily No Start Date Active Tricor 145 mg Tab RxNorm: 886756 1 Tablet(s) PO daily No Start Date 02/07/2012 Inactive amiodarone 200 mg tablet RxNorm: 713560 1 Tablet(s) PO daily No Start Date 01/28/2018 Inactive Synthroid 50 mcg Tab RxNorm: 756148 1 Tablet(s) PO daily No Start Date 09/10/2011 Inactive lisinopril 20 mg tablet RxNorm: 117398 1 Tablet(s) PO daily No Start Date 06/18/2012 Inactive Lortab 5 mg-500 mg tablet RxNorm: 803033 1 Tablet(s) PO Q4 PRN q 4hrs prn pain No Start Date 10/01/2012 Inactive Tenex 1 mg Tab RxNorm : 086408 1 Tablet(s) PO daily No Start Date 07/16/2011 Inactive lisinopril 40 mg tablet RxNorm: 458573 Tablet(s) PO No Start Date 05/21/2012 Inactive Voltaren 1 % Topical Gel RxNorm: 098428 TOP as directed No Start Date 11/29/2015 Inactive iron 325 mg (65 mg iron) Tab RxNorm: 089206 1 Tablet(s) PO daily No Start Date 02/22/2015 Inactive Zithromax Z-J Luis 250 mg tablet RxNorm: 972503 Tablet(s) PO UD No Start Date 01/22/2013 Inactive Byetta 10 mcg/0.04 mL per dose Sub-Q Pen Injector RxNorm: 069898 Milliliter(s) SQ BID No Start Date 08/28/2011 Inactive Mouth Sore oral RxNorm : 1399 mucous membrane No Start Date 01/28/2018 Inactive cyanocobalamin (vitamin B-12) 1,000 mcg/mL Injection RxNorm: 001101 1 Milliliter(s ) Inj month No Start Date 11/30/2015 Inactive Tessalon 200 mg capsule RxNorm: 048670 1 Capsule(s) PO TID PRN No Start Date 01/21/2013 Inactive metoprolol succinate ER 100 mg tablet,extended release 24 hr RxNorm: 675861 1 Tablet(s) PO daily No Start Date 2017 Inactive Victoza 2-J Luis 0.6 mg/0.1 mL (18 mg/3 mL) subcutaneous pen injector RxNorm: 997492 1.2 Milligram(s) SQ daily No Start Date Inactive simvastatin 20 mg Tab RxNorm: 800572 1 Tablet(s) PO QHS No Start Date 06/28/2011 Inactive spironolactone 25 mg Tab RxNorm: 576601 1 Tablet(s) PO BID No Start Date 07/02/2011 Inactive Diflucan 150 mg tablet RxNorm: 688206 1 Tablet(s) PO daily No Start Date 04/24/2012 Inactive guanfacine 1 mg Tab RxNorm: 071686 1 Tablet(s) PO daily No Start Date 07/16/2011 Inactive Ativan 1 mg Tab RxNorm : 937926 1/2-1 Tablet(s) PO Q6 PRN 1/2 - 1 tab q 6 hours if needed for anxiety No Start Date 2013 Inactive metformin ER 500 mg 24 hr Tab RxNorm: 851181 2 Tablet(s) PO BID No Start Date 08/14/2011 Inactive warfarin 2 mg tablet RxNorm: 525977 1 Tablet(s) PO daily No Start Date 01/28/2018 Inactive Lopressor 100 mg Tab RxNorm: 312845 1 Tablet(s) PO daily No Start Date 06/26/2011 Inactive glipizide 10 mg Tab RxNorm: 062471 1 Tablet(s) PO BID No Start Date 07/16/2011 Inactive KCL 10 meq RxNorm: PO as directed daily when taking lasix No Start Date 01/22/2013 Inactive lisinopril 20 mg Tab RxNorm: 591118 1 Tablet(s) PO daily No Start Date 07/03/2011 Inactive One Touch Ultra Test Strips RxNorm: 1 Miscellaneous BID No Start Date 07/27/2011 Inactive aspirin 81 mg Tab, Delayed Release RxNorm: 866491 1 Tablet(s) PO daily No Start Date 01/28/2018 Inactive omeprazole 20 mg Cap, delayed release RxNorm: 640459 1 Capsule(s) PO BID No Start Date 12/06/2011 Inactive Lasix 20 mg tablet RxNorm: 720700 Tablet(s) PO as directed daily prn swelling - to take kcl with lasix No Start Date 01/21 Inactive Vitamin D 1,000 unit Tab RxNorm: 628214 1 Tablet(s) PO daily No Start Date 01/28/2018 Inactive niacin 500 mg Tab RxNorm: 303500 1 Tablet(s) PO QHS No Start Date 04/03/2014 Inactive Medication Administered Medication Codes Instructions Start Date Status Kenalog 40 mg/mL suspension for injection RxNorm: 1730699 1Milliliter 05/29/2018 No longer Active cyanocobalamin (vit B-12) 1,000 mcg/mL injection solution RxNorm: 962450 1Milliliter 05/07/2018 No longer Active cyanocobalamin (vit B-12) 1,000 mcg/mL injection solution RxNorm: 118049 Milliliter 04/04/2018 No longer Active cyanocobalamin (vit B-12) 1,000 mcg/mL injection solution RxNorm: 761436 1Milliliter 03/04/2018 No longer Active cyanocobalamin (vit B-12) 1,000 mcg/mL injection solution RxNorm: 701253 1Milliliter 01/29/2018 No longer Active cyanocobalamin (vit B-12) 1,000 mcg/mL injection solution RxNorm: 707822 Milliliter 12/18/2017 No longer Active cyanocobalamin (vit B-12) 1,000 mcg/mL injection solution RxNorm: 640084 1Milliliter 11/20/2017 No longer Active cyanocobalamin (vit B-12) 1,000 mcg/mL injection solution RxNorm: 291036 1Milliliter 08/21/2017 No longer Active cyanocobalamin (vit B-12) 1,000 mcg/mL injection solution RxNorm: 880326 1Milliliter 07/18/2017 No longer Active cyanocobalamin (vit B-12) 1,000 mcg/mL injection solution RxNorm: 263926 1Milliliter 06/18/2017 No longer Active Kenalog 40 mg/mL suspension for injection RxNorm: 3619742 1Milliliter 06/18/2017 No longer Active cyanocobalamin (vit B-12) 1,000 mcg/mL injection solution RxNorm: 496720 1Milliliter 05/09/2017 No longer Active cyanocobalamin (vit B-12) 1,000 mcg/mL injection solution RxNorm: 902908 1Milliliter 04/04/2017 No longer Active Kenalog 40 mg/mL suspension for injection RxNorm: 5191880 1Milliliter 02/23/2017 No longer Active cyanocobalamin (vit B-12) 1,000 mcg/mL injection solution RxNorm: 052030 Milliliter 01/23/2017 No longer Active cyanocobalamin (vit B-12) 1,000 mcg/mL injection solution RxNorm: 582969 1Milliliter 11/14/2016 No longer Active Kenalog 40 mg/mL suspension for injection RxNorm: 7845050 1Milliliter 09/07/2016 No longer Active cyanocobalamin (vit B-12) 1,000 mcg/mL injection solution RxNorm: 520130 1Milliliter 08/29/2016 No longer Active cyanocobalamin (vit B-12) 1,000 mcg/mL injection solution RxNorm: 939499 Milliliter 06/12/2016 No longer Active ceftriaxone 500 mg solution for injection RxNorm: 3371317 2Milliliter 05/04/2016 No longer Active cyanocobalamin (vit B-12) 1,000 mcg/mL injection solution RxNorm: 268168 Milliliter 05/04/2016 No longer Active cyanocobalamin (vit B-12) 1,000 mcg/mL injection solution RxNorm: 454157 Milliliter 03/17/2016 No longer Active cyanocobalamin (vit B-12) 1,000 mcg/mL injection solution RxNorm: 564103 1Milliliter 02/15/2016 No longer Active cyanocobalamin (vit B-12) 1,000 mcg/mL injection solution RxNorm: 875518 Milliliter 01/19/2016 No longer Active cyanocobalamin (vit B-12) 1,000 mcg/mL injection solution RxNorm: 178620 1Milliliter 12/07/2015 No longer Active cyanocobalamin (vit B-12) 1,000 mcg/mL injection kit RxNorm : 887545 kit 09/06/2015 No longer Active ceftriaxone 500 mg solution for injection RxNorm: 6432845 09/06/2015 No longer Active ceftriaxone 500 mg solution for injection RxNorm: 9579887 07/05/2015 No longer Active Kenalog 40 mg/mL suspension for injection RxNorm: 2038636 Milliliter 07/05/2015 No longer Active cyanocobalamin (vit B-12) 1,000 mcg/mL injection solution RxNorm: 983005 Milliliter 06/28/2015 No longer Active cyanocobalamin (vit B-12) 1,000 mcg/mL injection solution RxNorm: 891571 Milliliter 05/13/2015 No longer Active cyanocobalamin (vit B-12) 1,000 mcg/mL injection solution RxNorm: 207748 Milliliter 02/23/2015 No longer Active cyanocobalamin (vit B-12) 1,000 mcg/mL injection solution RxNorm: 214921 Milliliter 01/08/2015 No longer Active cyanocobalamin (vit B-12) 1,000 mcg/mL injection solution RxNorm: 664111 Milliliter 12/08/2014 No longer Active cyanocobalamin (vit B-12) 1,000 mcg/mL injection solution RxNorm: 325363 Milliliter 10/26/2014 No longer Active cyanocobalamin (vit B-12) 1,000 mcg/mL injection solution RxNorm: 922842 Milliliter 09/24/2014 No longer Active cyanocobalamin (vit B-12) 1,000 mcg/mL injection solution RxNorm: 281219 Milliliter 08/24/2014 No longer Active cyanocobalamin (vit B-12) 1,000 mcg/mL injection solution RxNorm: 571191 1Milliliter 06/01/2014 No longer Active Kenalog 40 mg/mL suspension for injection RxNorm: 4004610 1Milliliter 05/11/2014 No longer Active cyanocobalamin (vit B-12) 1,000 mcg/mL injection kit RxNorm : 120535 Milliliter 04/27/2014 No longer Active cyanocobalamin (vit B-12) 1,000 mcg/mL injection kit RxNorm : 393132 1Milliliter 03/24/2014 No longer Active cyanocobalamin (vit B-12) 1,000 mcg/mL injection solution RxNorm: 475906 1Milliliter 03/24/2014 No longer Active cyanocobalamin (vit B-12) 1,000 mcg/mL injection solution RxNorm: 510401 1Milliliter 02/24/2014 No longer Active cyanocobalamin (vit B-12) 1,000 mcg/mL injection solution RxNorm: 767410 Milliliter 01/09/2014 No longer Active cyanocobalamin (vit B-12) 1,000 mcg/mL injection solution RxNorm: 586886 1Milliliter 11/27/2013 No longer Active Vitamin B-12 1,000 mcg/mL injection solution RxNorm: 014500 1Milliliter 09/18/2013 No longer Active Vitamin B-12 1,000 mcg/mL injection solution RxNorm: 041164 1Milliliter 08/22/2013 No longer Active Vitamin B-12 1,000 mcg/mL injection solution RxNorm: 876725 Milliliter 07/28/2013 No longer Active Vitamin B-12 1,000 mcg/mL injection solution RxNorm: 893539 1Milliliter 05/21/2013 No longer Active Influenza Virus Vaccine 0.5 mL RxNorm: 04/23/2013 No longer Active Vitamin B-12 1,000 mcg/mL Injection RxNorm: 189410 Milliliter 04/23/2013 No longer Active Vitamin B-12 1,000 mcg/mL Injection RxNorm: 664050 1Milliliter 03/24/2013 No longer Active cyanocobalamin (vitamin B-12) 1,000 mcg/mL Injection RxNorm : 241776 Milliliter 02/20/2013 No longer Active Vitamin B-12 1,000 mcg/mL Injection RxNorm: 507917 1Milliliter 01/22/2013 No longer Active cyanocobalamin (vitamin B-12) 1,000 mcg/mL Injection RxNorm : 405604 Milliliter 12/19/2012 No longer Active cyanocobalamin (vitamin B-12) 1,000 mcg/mL Injection RxNorm : 352372 Milliliter 11/20/2012 No longer Active cyanocobalamin (vitamin B-12) 1,000 mcg/mL Injection RxNorm : 680629 1Milliliter 10/23/2012 No longer Active cyanocobalamin (vitamin B-12) 1,000 mcg/mL Injection RxNorm : 200536 Milliliter 09/16/2012 No longer Active Vitamin B-12 1,000 mcg/mL Injection RxNorm: 059889 1Milliliter 08/15/2012 No longer Active Vitamin B-12 1,000 mcg/mL Injection RxNorm: 175422 1Milliliter 07/19/2012 No longer Active Vitamin B-12 1,000 mcg/mL Injection RxNorm: 968313 Milliliter 06/19/2012 No longer Active Vitamin B-12 1,000 mcg/mL Injection RxNorm: 161600 Milliliter 05/22/2012 No longer Active Vitamin B-12 1,000 mcg/mL Injection RxNorm: 030428 Milliliter 04/22/2012 No longer Active Vitamin B-12 1,000 mcg/mL Injection RxNorm: 413147 Milliliter 03/19/2012 No longer Active Vitamin B-12 1,000 mcg/mL Injection RxNorm: 027249 Milliliter 02/15/2012 No longer Active Vitamin B-12 1,000 mcg/mL Injection RxNorm: 753632 Milliliter 01/18/2012 No longer Active Kenalog 40 mg/mL Susp for Injection RxNorm: 0249176 1Milliliter 12/28/2011 No longer Active Vitamin B-12 1,000 mcg/mL Injection RxNorm: 514611 Milliliter 12/20/2011 No longer Active cyanocobalamin (vitamin B-12) 1,000 mcg/mL Injection RxNorm : 023563 1Milliliter 11/07/2011 No longer Active cyanocobalamin (vitamin B-12) 1,000 mcg/mL Injection RxNorm : 465266 1Milliliter 10/03/2011 No longer Active cyanocobalamin (vitamin B-12) 1,000 mcg/mL Injection RxNorm : 001736 1Milliliter 07/28/2011 No longer Active cyanocobalamin (vitamin B-12) 1,000 mcg/mL Injection RxNorm : 354109 Milliliter 06/29/2011 No longer Active cyanocobalamin (vitamin B-12) 1,000 mcg/mL Injection RxNorm : 507117 Milliliter 05/23/2011 No longer Active ketorolac 60 mg/2 mL IM RxNorm: 484626 Milliliter 05/23/2011 No longer Active Influenza Virus Vaccine 0.5 mL RxNorm: 04/26/2011 No longer Active Vitamin B-12 1,000 mcg/mL Injection RxNorm: 533124 Milliliter 04/26/2011 No longer Active Immunizations Vaccine [...] 28.4 pg 06/07/2017 Cbc With Differential Ord2 [place]% 12.6 % 06/07/2017 Cbc With Differential Ord2 [...] 1.23 K/ul 06/07/2017 Cbc With Differential Ord2 [place] ABS# 0.7 K/ul 06/07/2017 Cbc With Differential Ord2 Eos ABS# 0.2 K/ul 06/07/2017 Cbc With Differential Ord2 Baso ABS# 0.0 K/ul 06/07/2017 Culture Urine [id number] URINE CULTURE SEE NOTES 05/08/2016 Culture Urine [id number] Continued Results 05/08/2016 Urine Culture Ucult Complete >100,000 col/ml aerobic growth sent to ref lab 05/05/2016 IRON TEST [id number] IRON TEST 44 UG/DL 07/28/2013 TSH [id number] TSH 2.104 uIU/ML 07/28/2013 CBC [id number] WBC 6.2 10e9/L 07/28/2013 CBC [id number] RBC 3.95 10e12/L 07/28/2013 CBC [id number] HGB 11.2 g/dL 07/28/2013 CBC [id number] HCT DET 34.2 % 07/28/2013 CBC [id number] MCV 86.6 fL 07/28/2013 CBC [id number] MCH 28.4 pg 07/28/2013 CBC [id number] MCHC 32.7 g/dL 07/28/2013 CBC [id number] PLT 231 10e9/L 07/28/2013 CBC [id number] MPV 10.9 fL 07/28/2013 CBC [id number] JAZMYN % 61.0 % 07/28/2013 CBC [id number] LY % 27.8 % 07/28/2013 CBC [id number] MON % 8.0 % 07/28/2013 CBC [id number] EOS % 2.4 % 07/28/2013 CBC [id number] BASO % 0.8 % 07/28/2013 CBC [id number] RDW 14.0 % 07/28/2013 CBC [id number] ABS JAZMYN 3.78 10e9/L 07/28/2013 CBC [id number] ABS LYMPH 1.72 10e9/L 07/28/2013 CBC [id number] ABS MONO 0.50 10e9/L 07/28/2013 CBC 8256007 ABS EOS 0.15 10e9/L 07/28/2013 CBC 7785816 ABS BASO 0.05 10e9/L 07/28/2013 CBC 7452674 RDW-SD 42.9 fL 07/28/2013 %SAT/TIBC 4041218 TIBC 439 UG/DL 07/28/2013 %SAT/TIBC 8358781 % SATURAT 10 % 07/28/2013 %SAT/TIBC 3097111 UIBC 395 MCG/DL 07/28/2013 Review of Systems [...] Procedures Procedure Codes Date DRAIN/INJECT JOINT/BURSA CPT-4: 57147 05/29/2018 TRIAMCINOLONE ACET INJ NOS CPT-4: J3301 05/29/2018 THER/PROPH/DIAG INJ SC/IM CPT-4: 87512 05/07/2018 VITAMIN B12 INJECTION CPT-4: J3420 05/07/2018 FLU VAC NO PRSV 4 JINNY 3 YRS+ CPT-4: 42878 04/04/2018 ADMIN INFLUENZA VIRUS VAC CPT-4: G0008 04/04/2018 THER/PROPH/DIAG INJ SC/IM CPT-4: 76452 04/04/2018 VITAMIN B12 INJECTION CPT-4: J3420 04/04/2018 THER/PROPH/DIAG INJ SC/IM CPT-4: 30380 03/04/2018 VITAMIN B12 INJECTION CPT-4: J3420 03/04/2018 PPPS, SUBSEQ VISIT CPT -4: G0439 01/29/2018 ADMIN PNEUMOCOCCAL VACCINE SNOMED CT: 73297945 CPT-4: G0009 01/29/2018 PNEUMOCOCCAL VACC [address]: 40328637 CPT-4: 65908 01/29/2018 THER/PROPH/DIAG INJ SC/IM CPT-4: 86161 01/29/2018 VITAMIN B12 INJECTION CPT-4: J3420 01/29/2018 PRESCRIP TRANSMIT VIA ERX SY CPT-4: G8553 01/01/2018 PRESCRIP TRANSMIT VIA ERX SY CPT-4: G8553 12/27/2017 THER/PROPH/DIAG INJ SC/IM CPT-4: 28982 12/18/2017 VITAMIN B12 INJECTION CPT-4: J3420 12/18/2017 PRESCRIP TRANSMIT VIA ERX SY CPT-4: G8553 12/18/2017 THER/PROPH/DIAG INJ SC/IM CPT-4: 38636 11/20/2017 VITAMIN B12 INJECTION CPT-4: J3420 11/20/2017 THER/PROPH/DIAG INJ SC/IM CPT-4: 16580 08/21/2017 VITAMIN B12 INJECTION CPT-4: J3420 08/21/2017 THER/PROPH/DIAG INJ SC/IM CPT-4: 36273 07/18/2017 VITAMIN B12 INJECTION CPT-4: J3420 07/18/2017 TRIAMCINOLONE ACET INJ NOS CPT-4: J3301 06/18/2017 THER/PROPH/DIAG INJ SC/IM CPT-4: 57581 06/18/2017 VITAMIN B12 INJECTION CPT-4: J3420 06/18/2017 PRESCRIP TRANSMIT VIA ERX SY CPT-4: G8553 06/18/2017 THER/PROPH/DIAG INJ SC/IM CPT-4: 07765 05/09/2017 VITAMIN B12 INJECTION CPT-4: J3420 05/09/2017 ADMIN INFLUENZA VIRUS VAC CPT-4: G0008 04/25/2017 FLU VAC NO PRSV 4 JINNY 3 YRS+ CPT-4: 54403 04/25/2017 THER/PROPH/DIAG INJ SC/IM CPT-4: 21852 04/04/2017 VITAMIN B12 INJECTION CPT-4: J3420 04/04/2017 TRIAMCINOLONE ACET INJ NOS CPT-4: J3301 02/23/2017 VITAMIN B12 INJECTION CPT-4: J3420 02/23/2017 THER/PROPH/DIAG INJ SC/IM CPT-4: 70601 01/23/2017 VITAMIN B12 INJECTION CPT-4: J3420 01/23/2017 VITAMIN B12 INJECTION CPT-4: J3420 12/26/2016 THER/PROPH/DIAG INJ SC/IM CPT-4: 02554 12/26/2016 THER/PROPH/DIAG INJ SC/IM CPT-4: 66603 11/14/2016 VITAMIN B12 INJECTION CPT-4: J3420 11/14/2016 THER/PROPH/DIAG INJ SC/IM CPT-4: 32748 09/07/2016 TRIAMCINOLONE ACET INJ NOS CPT-4: J3301 09/07/2016 PRESCRIP TRANSMIT VIA ERX SY CPT-4: G8553 09/07/2016 THER/PROPH/DIAG INJ SC/IM CPT-4: 42464 08/29/2016 VITAMIN B12 INJECTION CPT-4: J3420 08/29/2016 PRESCRIP TRANSMIT VIA ERX SY CPT-4: G8553 08/29/2016 THER/PROPH/DIAG INJ SC/IM CPT-4: 01496 06/12/2016 VITAMIN B12 INJECTION CPT-4: J3420 06/12/2016 PRESCRIP TRANSMIT VIA ERX SY CPT-4: G8553 06/12/2016 URINALYSIS NONAUTO W/O SCOPE CPT-4: 31606 05/04/2016 ROCEPHIN, PER 250 MG CPT-4: J0696 05/04/2016 THER/PROPH/DIAG INJ SC/IM CPT-4: 75783 05/04/2016 VITAMIN B12 INJECTION CPT-4: J3420 05/04/2016 PRESCRIP TRANSMIT VIA ERX SY CPT-4: G8553 05/04/2016 PRESCRIP TRANSMIT VIA ERX SY CPT-4: G8553 03/30/2016 THER/PROPH/DIAG INJ SC/IM CPT-4: 52736 03/17/2016 VITAMIN B12 INJECTION CPT-4: J3420 03/17/2016 THER/PROPH/DIAG INJ SC/IM CPT-4: 39159 02/15/2016 VITAMIN B12 INJECTION CPT-4: J3420 02/15/2016 THER/PROPH/DIAG INJ SC/IM CPT-4: 25799 01/19/2016 VITAMIN B12 INJECTION CPT-4: J3420 01/19/2016 THER/PROPH/DIAG INJ SC/IM CPT-4: 33819 12/07/2015 VITAMIN B12 INJECTION CPT-4: J3420 12/07/2015 ROCEPHIN, PER 250 MG CPT-4: J0696 09/06/2015 THER/PROPH/DIAG INJ SC/IM CPT-4: 94849 09/06/2015 VITAMIN B12 INJECTION CPT-4: J3420 09/06/2015 PRESCRIP TRANSMIT VIA ERX SY CPT-4: G8553 09/06/2015 ROCEPHIN, PER 250 MG CPT-4: J0696 07/05/2015 TRIAMCINOLONE ACET INJ NOS CPT-4: J3301 07/05/2015 PRESCRIP TRANSMIT VIA ERX SY CPT-4: G8553 07/05/2015 THER/PROPH/DIAG INJ SC/IM CPT-4: 51801 06/28/2015 VITAMIN B12 INJECTION CPT-4: J3420 06/28/2015 THER/PROPH/DIAG INJ SC/IM CPT-4: 00923 05/13/2015 VITAMIN B12 INJECTION CPT-4: J3420 05/13/2015 THER/PROPH/DIAG INJ SC/IM CPT-4: 91571 02/23/2015 VITAMIN B12 INJECTION CPT-4: J3420 02/23/2015 THER/PROPH/DIAG INJ SC/IM CPT-4: 30565 01/08/2015 VITAMIN B12 INJECTION CPT-4: J3420 01/08/2015 THER/PROPH/DIAG INJ SC/IM CPT-4: 83962 12/08/2014 VITAMIN B12 INJECTION CPT-4: J3420 12/08/2014 THER/PROPH/DIAG INJ SC/IM CPT-4: 27036 10/26/2014 VITAMIN B12 INJECTION CPT-4: J3420 10/26/2014 VITAMIN B12 INJECTION CPT-4: J3420 09/24/2014 THER/PROPH/DIAG INJ SC/IM CPT-4: 68484 09/24/2014 THER/PROPH/DIAG INJ SC/IM CPT-4: 05516 08/24/2014 VITAMIN B12 INJECTION CPT-4: J3420 08/24/2014 THER/PROPH/DIAG INJ SC/IM CPT-4: 99204 07/08/2014 VITAMIN B12 INJECTION CPT-4: J3420 07/08/2014 THER/PROPH/DIAG INJ SC/IM CPT-4: 64442 06/01/2014 VITAMIN B12 INJECTION CPT-4: J3420 06/01/2014 TRIAMCINOLONE ACET INJ NOS CPT-4: J3301 05/11/2014 VITAMIN B12 INJECTION CPT-4: J3420 04/27/2014 THER/PROPH/DIAG INJ SC/IM CPT-4: 42143 04/27/2014 FLU VAC NO PRSV 4 JINNY 3 YRS+ CPT-4: 04827 04/03/2014 ADMIN INFLUENZA VIRUS VAC Assigned to/Juliana Graham CPT-4: [id number] 04/03/2014 THER/PROPH/DIAG INJ SC/IM CPT-4: 83104 03/24/2014 THER/PROPH/DIAG INJ SC/IM CPT-4: 93268 02/24/2014 THER/PROPH/DIAG INJ SC/IM CPT-4: 01927 01/09/2014 THER/PROPH/DIAG INJ SC/IM CPT-4: 44637 11/27/2013 THER/PROPH/DIAG INJ SC/IM CPT-4: 32670 09/18/2013 VITAMIN B12 INJECTION CPT-4: J3420 09/18/2013 THER/PROPH/DIAG INJ SC/IM CPT-4: 41878 08/22/2013 VITAMIN B12 INJECTION CPT-4: J3420 08/22/2013 ROUTINE VENIPUNCTURE CPT-4: 31446 07/28/2013 VITAMIN B12 INJECTION CPT-4: J3420 07/28/2013 THER/PROPH/DIAG INJ SC/IM CPT-4: 27295 07/28/2013 THER/PROPH/DIAG INJ SC/IM CPT-4: 51125 06/16/2013 VITAMIN B12 INJECTION CPT-4: J3420 06/16/2013 THER/PROPH/DIAG INJ SC/IM CPT-4: 62218 05/21/2013 VITAMIN B12 INJECTION CPT-4: J3420 05/21/2013 ADMIN INFLUENZA VIRUS VAC CPT-4: G0008 04/23/2013 FLULAVAL VACC, 3 YRS & >, IM CPT-4: Q2036 04/23/2013 VITAMIN B12 INJECTION CPT-4: J3420 04/23/2013 THER/PROPH/DIAG INJ SC/IM CPT-4: 45297 04/23/2013 THER/PROPH/DIAG INJ SC/IM CPT-4: 07498 03/24/2013 VITAMIN B12 INJECTION CPT-4: J3420 03/24/2013 THER/PROPH/DIAG INJ SC/IM CPT-4: 73435 02/20/2013 VITAMIN B12 INJECTION CPT-4: J3420 02/20/2013 VITAMIN B12 INJECTION CPT-4: J3420 01/22/2013 PRESCRIP TRANSMIT VIA ERX SY CPT-4: G8553 01/22/2013 TRIAMCINOLONE ACET INJ NOS CPT-4: J3301 12/19/2012 VITAMIN B12 INJECTION CPT-4: J3420 12/19/2012 THER/PROPH/DIAG INJ SC/IM CPT-4: 62908 11/20/2012 VITAMIN B12 INJECTION CPT-4: J3420 11/20/2012 THER/PROPH/DIAG INJ SC/IM CPT-4: 86106 10/23/2012 VITAMIN B12 INJECTION CPT-4: J3420 10/23/2012 THER/PROPH/DIAG INJ SC/IM CPT-4: 65356 09/16/2012 VITAMIN B12 INJECTION CPT-4: J3420 09/16/2012 VITAMIN B12 INJECTION CPT-4: J3420 08/15/2012 THER/PROPH/DIAG INJ SC/IM CPT-4: 44519 08/15/2012 TRIAMCINOLONE ACET INJ NOS CPT-4: J3301 08/06/2012 THER/PROPH/DIAG INJ SC/IM CPT-4: 43865 08/06/2012 PRESCRIP TRANSMIT VIA ERX SY CPT-4: G8553 08/06/2012 VITAMIN B12 INJECTION CPT-4: J3420 07/19/2012 THER/PROPH/DIAG INJ SC/IM CPT-4: 14929 07/19/2012 DRAIN/INJECT JOINT/BURSA CPT-4: 26288 07/10/2012 THER/PROPH/DIAG INJ SC/IM CPT-4: 32062 06/19/2012 VITAMIN B12 INJECTION CPT-4: J3420 06/19/2012 VITAMIN B12 INJECTION CPT-4: J3420 05/22/2012 THER/PROPH/DIAG INJ SC/IM CPT-4: 32792 05/22/2012 ADMIN INFLUENZA VIRUS VAC CPT-4: G0008 04/22/2012 FLULAVAL VACC, 3 YRS & >, IM CPT-4: Q2036 04/22/2012 VITAMIN B12 INJECTION CPT-4: J3420 04/22/2012 VITAMIN B12 INJECTION CPT-4: J3420 03/19/2012 THER/PROPH/DIAG INJ SC/IM CPT-4: 44550 03/19/2012 VITAMIN B12 INJECTION CPT-4: J3420 02/15/2012 THER/PROPH/DIAG INJ SC/IM CPT-4: 54204 02/15/2012 THER/PROPH/DIAG INJ SC/IM CPT-4: 04076 01/18/2012 VITAMIN B12 INJECTION CPT-4: J3420 01/18/2012 TRIAMCINOLONE ACET INJ NOS CPT-4: J3301 12/28/2011 DRAIN/INJECT JOINT/BURSA CPT-4: 46226 12/28/2011 VITAMIN B12 INJECTION CPT-4: J3420 12/20/2011 THER/PROPH/DIAG INJ SC/IM CPT-4: 44887 12/20/2011 VITAMIN B12 INJECTION CPT-4: J3420 11/07/2011 THER/PROPH/DIAG INJ SC/IM CPT-4: 01449 11/07/2011 VITAMIN B12 INJECTION CPT-4: J3420 10/03/2011 THER/PROPH/DIAG INJ SC/IM CPT-4: 98107 10/03/2011 TRIAMCINOLONE ACET INJ NOS CPT-4: J3301 08/23/2011 DRAIN/INJECT JOINT/BURSA CPT-4: 77370 08/23/2011 THER/PROPH/DIAG INJ SC/IM CPT-4: 47099 08/23/2011 VITAMIN B12 INJECTION CPT-4: J3420 08/23/2011 VITAMIN B12 INJECTION CPT-4: J3420 07/28/2011 THER/PROPH/DIAG INJ SC/IM CPT-4: 83537 07/28/2011 VITAMIN B12 INJECTION CPT-4: J3420 06/29/2011 THER/PROPH/DIAG INJ SC/IM CPT-4: 87297 06/29/2011 KETOROLAC TROMETHAMINE INJ CPT-4: J1885 05/23/2011 VITAMIN B12 INJECTION CPT-4: J3420 05/23/2011 THER/PROPH/DIAG INJ SC/IM CPT-4: 68513 05/23/2011 ADMIN INFLUENZA VIRUS VAC CPT-4: G0008 04/26/2011 FLULAVAL VACC, 3 YRS & >, IM CPT-4: Q2036 04/26/2011 VITAMIN B12 INJECTION CPT-4: J3420 04/26/2011 THER/PROPH/DIAG INJ SC/IM CPT-4: 86028 04/26/2011 Vital Signs Date Vital 05/29/2018 Blood Pressure 1: 120/64 Code : 8480-6 BMI: 35.5 Code : 48712-6 Heart Rate 1 : 58 bpm Height: 5'6" SpO2: 96% Weight: 220 lbs 05/07/2018 Blood Pressure 1: 130/60 Code : 8480-6 BMI: 35.5 Code : 25722-8 Heart Rate 1 : 60 bpm Height: 5'6" SpO2: 97% Weight: 220 lbs 01/29/2018 Blood Pressure 1: 150/80 Code : 8480-6 BMI: 35.5 Code : 40681-8 Heart Rate 1 : 68 bpm Height: 5'6" SpO2: 97% Waist Measure (cm): 109 cm Weight: 220 lbs 01/01/2018 Blood Pressure 1: 136/68 Code : 8480-6 BMI: 35.2 Code : 49677-0 Heart Rate 1 : 60 bpm Height: 5'6" Respiratory Rate: 16 bpm SpO2: 98% Weight: 218 lbs 12/27/2017 Height: Weight: 12/18/2017 Blood Pressure 1: 118/62 Code : 8480-6 BMI: 36.2 Code : 81607-7 Heart Rate 1 : 45 bpm Height: 5'6" SpO2: 98% Weight: 224 lbs 12/13/2017 Blood Pressure 1: 138/88 Code : 8480-6 Heart Rate 1: 92 bpm Height: SpO2: 98% Weight: 06/18/2017 Blood Pressure 1: 134/68 Code : 8480-6 BMI: 35.8 Code : 06857-3 Heart Rate 1 : 50 bpm Height: 5'6" SpO2: 98% Weight: 222 lbs 06/07/2017 Blood Pressure 1: 146/68 Code : 8480-6 BMI: 35.3 Code : 71805-8 Heart Rate 1 : 63 bpm Height: 5'6" SpO2: 99% Weight: 218 lbs 8 oz 04/16/2017 Blood Pressure 1: 130/62 Code : 8480-6 BMI: 34.7 Code : 03927-2 Heart Rate 1 : 51 bpm Height: 5'6" SpO2: 94% Weight: 215 lbs 02/23/2017 Blood Pressure 1: 136/64 Code : 8480-6 BMI: 35.0 Code : 47752-2 Heart Rate 1 : 54 bpm Height: 5'6" SpO2: 96% Weight: 217 lbs 12/26/2016 Blood Pressure 1: 144/74 Code : 8480-6 BMI: 34.5 Code : 31199-9 Heart Rate 1 : 60 bpm Height: 5'6" SpO2: 97% Weight: 214 lbs 09/07/2016 Blood Pressure 1: 138/62 Code : 8480-6 Heart Rate 1: 86 bpm SpO2: 96% Temperature: 36.8 (C) / 98.2 (F) Weight: 207 lbs 08/29/2016 Blood Pressure 1: 132/58 Code : 8480-6 BMI: 33.9 Code : 10455-2 Heart Rate 1 : 55 bpm Height: 5'6" SpO2: 98% Weight: 210 lbs 06/12/2016 Blood Pressure 1: 128/76 Code : 8480-6 BMI: 33.2 Code : 43034-9 Heart Rate 1 : 57 bpm Height: 5'6" SpO2: 97% Weight: 206 lbs 05/04/2016 Blood Pressure 1: 130/72 Code : 8480-6 BMI: 33.9 Code : 06484-3 Heart Rate 1 : 74 bpm Height: 5'6" SpO2: 96% Temperature: 36.9 (C) / 98.5 (F) Weight: 210 lbs 03/30/2016 Blood Pressure 1: 116/66 Code : 8480-6 BMI: 34.3 Code : 02219-3 Heart Rate 1 : 67 bpm Height: 5'6" SpO2: 98% Weight: 212 lbs 8 oz 11/30/2015 Blood Pressure 1: 138/64 Code : 8480-6 BMI: 35.2 Code : 77356-6 Heart Rate 1 : 59 bpm Height: 5'6" SpO2: 98% Weight: 218 lbs 09/06/2015 Blood Pressure 1: 138/668 Code: 8480-6 BMI: 35.3 Code: 77982-8 Heart Rate 1: 68 bpm Height: 5'6" Weight: 219 lbs 08/04/2015 Blood Pressure 1: 140/82 Code : 8480-6 Heart Rate 1: 62 bpm SpO2: 98% Weight: 220 lbs 07/05/2015 Blood Pressure 1: 122/80 Code : 8480-6 BMI: 36.0 Code : 69449-1 Heart Rate 1 : 63 bpm Height: 5'6" SpO2: 97% Temperature: 36.3 (C) / 97.3 (F) Weight: 223 lbs 06/28/2015 Blood Pressure 1: 150/74 Code : 8480-6 BMI: 36.3 Code : 16505-8 Heart Rate 1 : 65 bpm Height: 5'6" SpO2: 96% Weight: 225 lbs 02/23/2015 Blood Pressure 1: 142/64 Code : 8480-6 BMI: 37.0 Code : 25654-0 Heart Rate 1 : 56 bpm Height: 5'6" SpO2: 96% Weight: 229 lbs 01/08/2015 Blood Pressure 1: 128/88 Code : 8480-6 BMI: 37.3 Code : 86295-5 Heart Rate 1 : 74 bpm Height: 5'6" Weight: 231 lbs 09/24/2014 Blood Pressure 1: 128/70 Code : 8480-6 BMI: 36.8 Code : 67013-3 Heart Rate 1 : 68 bpm Height: 5'6" SpO2: 96% Weight: 228 lbs 05/11/2014 Blood Pressure 1: 148/82 Code : 8480-6 Height: Temperature: 36.2 (C) / 97.2 (F) Weight: 05/01/2014 Blood Pressure 1: 128/68 Code : 8480-6 BMI: 36.6 Code : 09154-9 Heart Rate 1 : 74 bpm Height: 5'6" Weight: 227 lbs 04/03/2014 Blood Pressure 1: 130/72 Code : 8480-6 BMI: 36.8 Code : 39511-9 Heart Rate 1 : 76 bpm Height: 5'6" Weight: 228 lbs 11/24/2013 Blood Pressure 1: 146/64 Code : 8480-6 BMI: 35.5 Code : 37254-7 Heart Rate 1 : 64 bpm Height: 5'6" Weight: 220 lbs 08/22/2013 Weight: 223 lbs 07/28/2013 Blood Pressure 1: 112/68 Code : 8480-6 BMI: 36.2 Code : 11912-1 Heart Rate 1 : 80 bpm Height: 5'6" Weight: 224 lbs 06/16/2013 Blood Pressure 1: 132/60 Code : 8480-6 BMI: 37.6 Code : 46267-8 Heart Rate 1 : 72 bpm Height: 5'6" Weight: 233 lbs 01/22/2013 Blood Pressure 1: 130/64 Code : 8480-6 BMI: 37.3 Code : 02837-5 Heart Rate 1 : 80 bpm Height: 5'6" Weight: 231 lbs 10/02/2012 Blood Pressure 1: 146/90 Code : 8480-6 BMI: 36.8 Code : 40676-2 Heart Rate 1 : 60 bpm Height: [...] Code : 8480-6 BMI: 37.1 Code : 53945-8 Heart Rate 1 : 60 bpm Height: 5'6" Respiratory Rate: 16 bpm Weight: 230 lbs 12/20/2011 Blood Pressure 1: 142/66 Code : 8480-6 BMI: 35.8 Code : 93198-9 Heart Rate 1 : 66 bpm Height: [...] Code : 8480-6 BMI: 36.2 Code : 93399-6 Heart Rate 1 : 64 bpm Height: [...] None knee pain Quality intermittent 06/28/2015 seeing Kevni brown Synvisc hypertension Blood Pressure Values patient [...] None knee pain Quality intermittent 02/23/2015 seeing [facility] Synvis diabetes mellitus Test results HgbA1c level [...] lesion Location on the right cheek 01/22/2013 religious area edema Quality painful 01/22/2013 None edema [...] Sciatica, right side[ICD10: M54.31] Yady Garcia MD, [facility] CPT-4: 65256 05/29/2018 ([id number]) 19514 EST. PATIENT, LEVEL IV Diagnosis: Type 2 diabetes mellitus without complications[ICD10: E11.9] Diagnosis: Chronic kidney disease, stage 3 (moderate)[ICD10: N18.3] Diagnosis: Essential (primary) hypertension[ICD10: I10] Diagnosis: Other vitamin B12 deficiency anemias[ICD10: D51.8] [facility] CPT-4: 80058 05/07/2018 ([id number]) 92895 EST. PATIENT, LEVEL IV Diagnosis: Type 2 diabetes mellitus without complications[ICD10: E11.9] Diagnosis: Essential (primary) hypertension[ICD10: I10] Diagnosis: Chronic atrial fibrillation[ICD10: I48.2] Daisy Garcia MD, [facility] CPT-4: 70502 01/01/2018 ([id number]) 64945 EST. 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 PATIENT, LEVEL IV Diagnosis: Type 2 diabetes mellitus with hyperglycemia[ICD10: E11.65] Diagnosis: Essential (primary) hypertension[ICD10: I10] Diagnosis: Pain in left knee[ICD10: M25.562] Diagnosis: Other vitamin B12 deficiency anemias[ICD10: D51.8] Daisy Garcia MD, [facility] CPT-4: 35983 12/18/2017 [id number] EST. PATIENT, LEVEL III Diagnosis: Pain in left knee[ICD10: M25.562] Yady Garcia MD, [facility] CPT -4: 99375 12/13/2017 ([id number]) 96275 EST. PATIENT, LEVEL IV Diagnosis: Type 2 diabetes mellitus without complications[ICD10: E11.9] Diagnosis: Essential (primary) hypertension[ICD10: I10] Diagnosis: Other vitamin B12 deficiency anemias[ICD10: D51.8] Diagnosis: Allergic rhinitis due to animal (cat) (dog) hair and dander[ICD10: J30.81] Daisy Garcia MD, [facility] CPT-4: 73542 2016 ([id number]) 82802 EST. 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 PATIENT, LEVEL IV Diagnosis: Type 2 diabetes mellitus without complications[ICD10: E11.9] Diagnosis: Essential (primary) hypertension[ICD10: I10] Diagnosis: Chronic atrial fibrillation[ICD10: I48.2] Daisy Garcia MD, [facility] CPT-4: 42586 04/16/2017 ([id number]) 56301 EST. PATIENT, LEVEL III Diagnosis: Sciatica, left side[ICD10: M54.32] Diagnosis: Sacroiliitis, not elsewhere classified[ICD10: M46.1] Chantell Garcia MD, [facility] CPT-4: 76515 02/23/2017 ([id number]) 30853 EST. PATIENT, LEVEL IV Diagnosis: Type 2 diabetes mellitus without complications[ICD10: E11.9] Diagnosis: Essential (primary) hypertension[ICD10: I10] Daisy Garcia MD [facility] CPT-4: 74472 12/26/2016 ([id number]) 15441 EST. PATIENT, LEVEL III Diagnosis: Cough[ICD10: R05] Diagnosis: Acute bronchitis, unspecified[ICD10: J20.9] Chantell Garcia MD, [facility] CPT-4: 12618 09/07/2016 ([id number]) 62721 EST. PATIENT, LEVEL IV Diagnosis: Type 2 diabetes mellitus without complications[ICD10: E11.9] Diagnosis: Cough[ICD10: R05] Diagnosis: Acute laryngopharyngitis[ICD10: J06.0] Diagnosis: Acute recurrent maxillary sinusitis[ICD10: J01.01] Daisy Garcia MD, [facility] CPT-4: 11465 08/29/2016 [id number] EST. PATIENT, LEVEL IV Diagnosis: Other allergic rhinitis[ICD10: J30.89] Diagnosis: Other vitamin B12 deficiency anemias[ICD10: D51.8] Yady Garcia MD, [facility] CPT-4: 46399 06/12/2016 ([id number]) 07332 EST. PATIENT, LEVEL III Diagnosis: Urinary tract infection, site not specified[ICD10: N39.0] Diagnosis: Fever, unspecified[ICD10: R50.9] Diagnosis: Other vitamin B12 deficiency anemias[ICD10: D51.8] Chantell Garcia MD, [facility] CPT-4: 60713 05/04/2016 ([id number]) 80248 EST. 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 PATIENT, LEVEL IV Diagnosis: Type 2 diabetes mellitus with hyperglycemia[ICD10: E11.65] Diagnosis: Essential (primary) hypertension[ICD10: I10] Daisy Garcia MD, [facility] CPT-4: 53697 11/30/2015 ([id number]) 74707 EST. PATIENT, LEVEL III Diagnosis: Acute recurrent maxillary sinusitis[ICD10: J01.01] Diagnosis: Unspecified acute conjunctivitis, right eye[ICD10: H10.31] Diagnosis: Vitamin B12 deficiency anemia, unspecified[ICD10: D51.9] Chantell Garcia MD , [facility] CPT-4: 63587 09/06/2015 [id number] EST. PATIENT, LEVEL III Diagnosis: Pain in right knee[ICD10: M25.561] Diagnosis: Essential (primary) hypertension[ICD10: I10] Diagnosis: Vitamin B12 deficiency anemia, unspecified[ICD10: D51.9] Yady Garcia MD, [facility] CPT-4: 81289 08/04/2015 ([id number]) 67159 EST. PATIENT, LEVEL III Diagnosis: Streptococcal pharyngitis[ICD10: J02.0] Diagnosis: Acute recurrent maxillary sinusitis[ICD10: J01.01] Chantell Garcia MD, [facility] CPT-4: 85194 07/05/2015 ([id number]) 86552 EST. PATIENT, LEVEL IV Diagnosis: Type 2 diabetes mellitus with hyperglycemia[ICD10: E11.65] Diagnosis: Essential (primary) hypertension[ICD10: I10] Diagnosis: Vitamin B12 deficiency anemia, unspecified[ICD10: D51.9] Daisy Garcia MD, [facility] CPT-4: 71695 06/28/2015 ([id number]) 72759 EST. PATIENT, LEVEL IV Diagnosis: DM W/O COMPLICATION TYPE II, UNCONTROLLED[ICD9: 250.02] Diagnosis: ESSENTIAL HYPERTENSION[ICD9: 401.9] Diagnosis: Iron deficiency[ICD9: 280.9] Diagnosis: OTH SCREENING MAMMOGRAM[ICD9: V76.12] Diagnosis: B12 deficiency[ICD9: 266.2] Daisy Garcia MD, [facility] CPT- 4: 95128 02/23/2015 ([id number]) 45797 EST. PATIENT, LEVEL IV Diagnosis: DM W/O COMPLICATION TYPE II, UNCONTROLLED[ICD9: 250.02] Diagnosis: ESSENTIAL HYPERTENSION[ICD9: 401.9] Diagnosis: Right knee pain[ICD9: 719.46] Diagnosis: B12 deficiency[ICD9: 266.2] Chantell Garcia MD, [facility] CPT-4: 53463 01/08/2015 ([id number]) 39780 EST. PATIENT, LEVEL IV Diagnosis: DM W/O COMPLICATION TYPE II, UNCONTROLLED[ICD9: 250.02] Diagnosis: ESSENTIAL HYPERTENSION[ICD9: 401.9] Diagnosis: Iron deficiency[ICD9: 280.9] Daisy Garcia MD, [facility] CPT- 4: 15926 09/24/2014 ([id number]) 32126 EST. PATIENT, LEVEL III Diagnosis: Sacroiliitis[ICD9: 720.2] Diagnosis: Left sided sciatica[ICD9: 724.3] Chantell Garcia MD, [facility] CPT-4: 45665 05/11/2014 ([id number]) 69398 EST. PATIENT, LEVEL III Diagnosis: CELLULITIS OF BUTTOCK[ICD9: 682.5] Daisy Garcia MD, [facility] CPT-4: 52825 05/01/2014 09086 EST. PATIENT, LEVEL IV Diagnosis: ESSENTIAL HYPERTENSION[ICD9: 401.9] Diagnosis: DIABETES TYPE II[ICD9: 250.00] Diagnosis: Iron deficiency[ICD9: 280.9] Diagnosis: LUMBAGO[ICD9: 724.2] Daisy Garcia MD, [facility] CPT-4: 55117 04/03/2014 ([id number]) 58697 EST. PATIENT, LEVEL IV Diagnosis: ESSENTIAL HYPERTENSION[SNOMED: 85529183] Diagnosis: DIABETES TYPE II[SNOMED: 181298940] Diagnosis: ANEMIA[ICD9: 285.9] Diagnosis: Iron deficiency[ICD9: 280.9] Daisy Garcia MD, [facility] CPT- 4: 32181 11/24/2013 ([id number]) 37029 EST. PATIENT, LEVEL IV Diagnosis: ESSENTIAL HYPERTENSION[SNOMED: 06307396] Diagnosis: DIABETES TYPE II[SNOMED: 141723819] Diagnosis: EDEMA[ICD9: 782.3] Daisy Garcia MD, [facility] CPT-4: 83275 07/28/2013 ([id number]) 71247 EST. PATIENT, LEVEL IV Diagnosis: ESSENTIAL HYPERTENSION[SNOMED: 95560304] Diagnosis: DIABETES TYPE II[SNOMED: 244063622] Diagnosis: EDEMA[ICD9: 782.3] Diagnosis: B-COMPLEX DEFIC NEC[ICD9: 266.2] Daisy Garcia MD, [facility] CPT-4: 10405 06/16/2013 ([id number]) 25975 EST. PATIENT, LEVEL IV Diagnosis: ESSENTIAL HYPERTENSION[SNOMED: 82410810] Diagnosis: DIABETES TYPE II[SNOMED: 478907529] Diagnosis: EDEMA[ICD9: 782.3] Diagnosis: B-COMPLEX DEFIC NEC[ICD9: 266.2] Daisy Garcia MD, [facility] CPT-4: 53403 01/22/2013 ([id number]) 09576 EST. PATIENT, LEVEL III Diagnosis: Lumbago[ICD9: 724.2] Diagnosis: Sacroiliitis[ICD9: 720.2] Diagnosis: ESSENTIAL HYPERTENSION[SNOMED: 91821036] Daisy Garcia MD, [facility] CPT-4: 26534 10/02/2012 ([id number]) 64182 EST. PATIENT, LEVEL III Diagnosis: ACUTE URI[ICD9: 465.9] Daisy Garcia MD, [facility] CPT-4: 94008 08/06/2012 ([id number]) 49877 EST. PATIENT, LEVEL IV Diagnosis: ESSENTIAL HYPERTENSION[SNOMED: 06734500] Diagnosis: DIABETES TYPE II[SNOMED: 009654109] Diagnosis: ANEMIA[ICD9: 285.9] Daisy Garcia MD, [facility] CPT-4: 73207 07/04/2012 ([id number]) 49998 EST. PATIENT, LEVEL IV Diagnosis: ESSENTIAL HYPERTENSION[SNOMED: 08616934] Diagnosis: DIABETES TYPE II[SNOMED: 226765117] Diagnosis: B-COMPLEX DEFIC NEC[ICD9: 266.2] Daisy Garcia MD, [facility] CPT-4: 96191 05/22/2012 ([id number]) 54778 EST. PATIENT, LEVEL IV Diagnosis: ESSENTIAL HYPERTENSION[SNOMED: 96389358] Diagnosis: DIABETES TYPE II[SNOMED: 247033874] Diagnosis: LUMBAGO[ICD9: 724.2] Diagnosis: B-COMPLEX DEFIC NEC[ICD9: 266.2] Daisy Garcia MD, [facility] CPT-4: 37912 04/22/2012 [id number] EST. PATIENT, LEVEL III Diagnosis: Sciatica of right side[ICD9: 724.3] Diagnosis: Sacroiliitis[ICD9: 720.2] Chantell Garcia MD, [facility] CPT-4: 08230 12/28/2011 ([id number]) 64783 EST. PATIENT, LEVEL IV Diagnosis: DIABETES TYPE II[SNOMED: 598568750] Diagnosis: ESSENTIAL HYPERTENSION[SNOMED: 55242932] Daisy Garcia MD, [facility] CPT-4: 62987 12/20/2011 ([id number]) 47663 EST. PATIENT, LEVEL IV Diagnosis: ESSENTIAL HYPERTENSION[SNOMED: 67531334] Diagnosis: DIABETES TYPE II[SNOMED: 773597697] Diagnosis: PAIN IN LIMB[ICD9: 729.5] Diagnosis: LUMBAGO[ICD9: 724.2] Diagnosis: Sacroiliitis[ICD9: 720.2] Daisy Garcia MD, [facility] CPT-4: 17245 08/23/2011 [id number] EST. PATIENT, LEVEL III Diagnosis: Sacroiliitis[ICD9: 720.2] Diagnosis: Right sided sciatica[ICD9: 724.3] Diagnosis: B-COMPLEX DEFIC NEC[ICD9: 266.2] Chantell Garcia MD, [facility] CPT-4: 42107 05/23/2011 92319 EST. PATIENT, LEVEL IV Diagnosis: DIABETES TYPE II[SNOMED: 793734425] Diagnosis: ESSENTIAL HYPERTENSION[SNOMED: 46542881] Diagnosis: Feces incontinence[ICD9: 787.60] [facility] CPT-4: 82724 04/26/2011 Plan of Care Planned Activity Notes [...] they worsen. 05/29/2018 Appointment: Yady Harper WPtel: [address] [place], [place] [id number] (15 min) Moderate 05/29/2018 Patient Education: Patient [...] at home. 01/01/2018 App[facility]ment: [facility] [phone] [phone] ([facility] min) Moderate 01/01/2018 Patient Education: Patient Medication Summary Completed 01/01/2018 Visit Plan: Apthous ulcer of mouth/mouth pain - I have recommended pt to start on magic mouth wash a 1:1:1 solution of carafate, nystatin, and benadryl for 5mL swish and swallow qid x 10 days - I have called this rx to [facility]. Rx for acyclovir sent to [facility] as well. Glenda is to call if the symptoms do not improve over the weekend. 12/27/2017 Appointment: Daisy Garcia WPtel: [facility]5 [facility] (15 min) Moderate 12/27/2017 Patient Education: Patient [...] in clinic. 12/18/2017 Appointment: [phone] ([place]) Moderate 12/18/2017 Patient Education: Patient Medication Summary Completed 12/18/2017 Care Plan: COMPLETE CBC AUTOMATED LOINC : 43943-5 Pending 12/18/2017 Visit Plan: Left knee pain - will have pt use RICE - Rest, Ice, Compression, Elevation - will order x-ray - The pt is to use prn antiinflammatories to manage acute pain. The patient is to call the office if the pain is worsening or does not improve. 12/13/2017 Appointment: Y[facility] Harper [facility]el[facility] ([facility] min) Complex 12/13/2017 Patient Education: Patient Medication Summary Completed 12/13/2017 Care Plan: X-RAY EXAM OF KNEE [facility] : 45468-6 Pending 12/13/2017 Appointment: Injection 11/20/2017 Patient Education: Patient Medication Summary Completed 11/20/2017 Appointment: Daisy Garcia [facility]Ptel[facility] ([place]) Moderate 09/18/2017 Appointment: Injection 08/21/2017 [...] shot today. 06/18/2017 Appointment: Daisy Garcia WPtel[facility] (15 min) Moderate 06/18/2017 Patient Education: Patient [...] days 06/07/2017 Appointment: [phone] (15 min) Moderate 06/07/2017 Patient Education: Patient Medication Summary Completed 06/07/2017 Patient Education: Obesity Completed 06/07/2017 Appointment: Injection 05/09/2017 Patient Education: Patient Medication Summary Completed 05/09/2017 Appointment: Daisy Garcia [facility]Ptel[facility] (15 min) Moderate 04/26/2017 Patient Education: Patient [...] and cardizem 04/16/2017 Appointment: Daisy Garcia [facility]Ptel[facility] (15 min) Moderate 04/16/2017 Appointment: Daisy Garcia WPtel: [address] [place], [place] [address] (15 min) Moderate 04/16/2017 Patient Education: Patient [...] controlled. 12/26/2016 Appointment: [phone] (15 min) Moderate 12/26/2016 Patient Education: Patient Medication Summary Completed 12/26/2016 Appointment: Injection 11/14/2016 Patient Education: Patient Medication Summary Completed 11/14/2016 Visit Plan: Bronchitis - acute case of bronchitis identified. Pt has been given antibiotics, breathing treatments as appropriate, and pt has been instructed to call if symptoms are not improved, or if symptoms acutely worsen. 09/07/2016 Appointment: [phone] (30 min) Complex 09/07/2016 Patient Education: [...] show improvement. 08/29/2016 Appointment: Daisy Garcia WPtel: [phone] [facility] (15 min) Moderate 08/29/2016 Patient Education: Patient Medication Summary Completed 08/29/2016 Patient Education: Obesity Completed 08/29/2016 Appointment: Daisy Garcia WPtel: [phone] [facility] (15 min) Moderate 08/22/2016 Appointment: Daisy Garcia WPtel: [phone] [facility] (15 min) Moderate 08/02/2016 Appointment: Chantell Singh WPtel: [address] [phone] [place] (30 min) Complex 08/02/2016 [...] allergy spray. 06/12/2016 Appointment: Yady Harper WPtel: [phone] [facility] (15 min) Moderate 06/12/2016 Patient [...] office 05/04/2016 Appointment: Chantell Singh WPtel: [phone] [phone] [place] (15 min) Moderate 05/04/2016 [...] cream. 03/30/2016 Appointment: Daisy Garcia WPtel: [phone] [facility] [place] (15 min) Moderate 03/30/2016 Patient Education: Patient Medication Summary Completed 03/30/2016 Patient Education: Hypertension Completed 03/30/2016 Appointment: Injection 03/17/2016 Patient Education: Patient Medication Summary Completed 03/17/2016 Appointment: Injection 02/15/2016 Patient Education: Patient Medication Summary Completed 02/15/2016 Appointment: Daisy Garcia WPtel: [phone] [facility] [place] (15 min) Moderate 01/26/2016 Appointment: Injection [...] acute concerns. 11/30/2015 Appointment: Daisy Garcia [facility]Ptel: [facility] ([place] min) Moderate 11/30/2015 Patient Education: Patient Medication Summary Completed 11/30/2015 Patient Education: Obesity Completed 11/30/2015 [facility]ment: [phone] (15 min) Moderate 10/26/2015 Visit Plan: Sinusitis [...] home. 06/28/2015 Appointment: Daisy Garcia WPtel: [phone] [facility] (15 min) Moderate 06/28/2015 Patient Education: Patient [...] resting. 02/23/2015 Appointment: Daisy Garcia WPtel: [phone] [facility] Follow up 02/23/2015 Patient Education: Patient Medication Summary Completed 02/23/2015 Patient Education: Hypertension Completed 02/23/2015 Care Plan: [employer] : 43330-0 Ordered 02/23/2015 Visit Plan: Depression - uncontrolled [...] Care Plan: COMPLETE CBC AUTOMATED LOINC : 61291-8 Ordered 01/08/2015 Appointment: Injection 12/08/2014 Patient Education: [...] diarrhea. 09/24/2014 Appointment: [phone] Follow up 09/24/2014 Patient Education: Patient Medication Summary Completed 09/24/2014 Patient Education: Hypertension Completed 09/24/2014 Appointment: [phone] [place] Injection 08/24/2014 Patient Education: Patient Medication [...] discharge. 05/01/2014 Appointment: [phone] [place] Follow up 05/01/2014 Patient Education: Patient Medication Summary Completed 05/01/2014 Appointment: [phone] [place] Injection 04/27/2014 Patient Education: Patient Medication [...] pain 04/03/2014 Appointment: Chantell Singh WPtel: [phone] [facility] Follow up 04/03/2014 Patient Education: Patient Medication Summary Completed 04/03/2014 Patient Education: Hypertension Completed 04/03/2014 Visit Plan: vitamin b12 injection 03/24/2014 Appointment: Daisy Garcia WPtel: [facility]5 [facility] [place] Injection 03/24/2014 Patient Education: Patient Medication Summary Completed 03/24/2014 Appointment: Daisy Garcia WPtel: [facility]5 [facility] [place] Follow up 03/23/2014 Appointment: Daisy Garcia WPtel: [address] [place], [place] [phone] [place] Injection 02/24/2014 Patient Education: Patient Medication Summary Completed 02/24/2014 Appointment: Chantell Singh WPtel: [phone] [phone] [place] Injection 01/09/2014 Patient Education: [...] supplementation. 11/24/2013 Appointment: Daisy Garcia WPtel: [phone] [facility] [place] Follow up 11/24/2013 Patient Education: Patient Medication Summary Completed 11/24/2013 Patient Education: Hypertension Completed 11/24/2013 Appointment: Daisy Garcia WPtel: [phone] [facility] [place] Follow up 11/12/2013 Appointment: Daisy Garcia WPtel: [phone] [facility] [place] Follow up 10/27/2013 Appointment: Chantell Singh WPtel: [phone] [phone] [place] Injection 09/18/2013 Patient Education: Patient Medication Summary Completed 09/18/2013 Appointment: [facility]el[phone] [place] Injection 08/22/2013 Patient Education: Patient [...] today 07/28/2013 Appointment: Daisy Garcia WPtel: [phone] [facility] [place] Follow up 07/28/2013 Patient Education: Patient Medication Summary Completed 07/28/2013 Patient Education: Hypertension Completed 07/28/2013 Appointment: [facility]el[phone] [place] Injection 06/20/2013 Visit Plan: Diabetes [...] edema. 06/16/2013 Appointment: [phone] [place] Follow up 06/16/2013 Patient Education: Patient Medication Summary Completed 06/16/2013 Patient Education: Hypertension Completed 06/16/2013 Appointment: [facility]el[phone] [place] Injection 05/21/2013 Patient Education: Patient Medication Summary Completed 05/21/2013 Appointment: [phone] [place] Injection 04/23/2013 Patient Education: Patient Medication Summary Completed 04/23/2013 Appointment: [facility]el: [phone] [place] Injection 03/24/2013 Patient Education: Patient Medication Summary Completed 03/24/2013 Appointment: Daisy [facility]el: [phone] [place] Injection 02/20/2013 Patient Education: Patient Medication [...] peripheral edema. 01/22/2013 Appointment: Daisy Garcia WPtel: [facility] [place] Follow up 01/22/2013 Patient Education: Patient Medication Summary Completed 01/22/2013 Patient Education: Hypertension Completed 01/22/2013 Appointment: Daisy Garcia WPtel: [facility] [place] Injection 01/21/2013 Patient Education: Patient Medication Summary Completed 12/19/2012 Appointment: [facility]el: [phone] [place] Injection 11/22/2012 Appointment: Daisy Garcia WPtel: [facility] [place] Injection 11/20/2012 Patient Education: Patient Medication Summary Completed 11/20/2012 Appointment: Chantell Singh WPtel: [address] [place], [place] [phone] [place] Injection 11/08/2012 Appointment: Daisy Garcia WPtel: [phone] [facility] [place] Injection 10/23/2012 Patient Education: Patient Medication [...] Completed 10/02/2012 Appointment: Chantell Singh WPtel: [phone] [phone] Lab Draw 09/16/2012 Patient Education: [...] office. 08/06/2012 Appointment: Chantell Singh WPtel: [phone] [phone] Sick 08/06/2012 Patient Education: Patient [...] injection. 07/10/2012 Appointment: [phone] [place] Injection 07/10/2012 Patient Education: Patient Medication [...] controlled. 07/04/2012 Appointment: Daisy [facility]Ptel: [phone] [place] Follow up 07/04/2012 Patient Education: Patient Medication Summary Completed 07/04/2012 Patient Education: Hypertension Completed 07/04/2012 Appointment: [facility]el[phone] [place] Injection 06/19/2012 Patient Education: Patient Medication [...] today in the office. 05/22/2012 Appointment: Chantell Singh WPtel: [address] [place], [place] [phone] Follow up 05/22/2012 Appointment: Chantell Singh WPtel: [address] [place], [place] [phone] Follow up 05/22/2012 Patient Education: Patient Medication [...] the office 04/22/2012 Appointment: Chantell Singh WPtel: [address] [place], [place] [phone] Established Patient Preventative visit 04/22/2012 Patient Education: Patient Medication Summary Completed 04/22/2012 Patient Education: High Blood Pressure: Essential Hypertension Completed 2011 Appointment: Chantell Singh WPtel: [address] [place], [place] [phone] [place] Injection 03/19/2012 Patient Education: Patient Medication Summary Completed 03/19/2012 Appointment: Daisy Garcia WPtel: [address] [place], [place] [phone] [place] Injection 02/15/2012 Patient Education: Patient Medication Summary Completed 02/15/2012 Appointment: [phone] [place] Injection 01/18/2012 Patient Education: Patient Medication [...] worse. 12/28/2011 Appointment: [facility]el[phone] [place] Other 12/28/2011 Patient Education: Patient [...] today. 12/20/2011 Appointment: Daisy [facility]el: [phone] [place] Other 12/20/2011 Patient Education: Patient Medication Summary Completed 12/20/2011 Patient Education: High Blood Pressure: Essential Hypertension Completed 2011 Appointment: [facility]el[phone] [place] Injection 11/07/2011 Patient Education: Patient Medication Summary Completed 11/07/2011 Appointment: [facility]el: [phone] [place] Injection 10/03/2011 Patient Education: Patient Medication Summary Completed 10/03/2011 Appointment: Daisy [facility]Ptel: [phone] [place] Injection 08/28/2011 Visit Plan: Hypertension - [...] left today 08/23/2011 Appointment: Daisy Garcia WPtel: [facility] [place] Other 08/23/2011 Patient Education: Patient Medication Summary Completed 08/23/2011 Patient Education: High Blood Pressure: Essential Hypertension Completed 2011 Appointment: Chantell Singh WPtel: [phone] [place] Injection 07/28/2011 Patient Education: Patient Medication Summary Completed 07/28/2011 Visit Plan: b12 injection 06/29/2011 Appointment: Chantell Singh WPtel: [phone] [place] Injection 06/29/2011 Patient Education: Patient [...] injection today in the office 05/23/2011 Appointment: SinghMarcie [facility]Ptel[phone] Other 05/23/2011 Patient Education: Patient Medication [...] IRON. 04/26/2011 Appointment: Daisy [facility]el: [phone] [place] Other 04/26/2011 Patient Education: Patient Medication Summary Completed 04/26/2011 Instructions Comment LEXAPRO 5MG IN THE EVENING VITAMIN B12 [...] been appropriately prescribed for this patient. . Diabetes Mellitus - controlled - per [...] pt is to call for acute concerns. . Hypertension - continue with current medications, [...] going to schedule surgery with him. . Hypertension - continue with current medications, [...] is going to schedule surgery with him. hold lipitor x 2 weeks - and [...] three times daily x 5 days . Sacroiliitis -right SI joint injection today [...] do not improve or if they worsen. CHECK LABS BEFORE YOUR NEXT APPOINTMENT BRING [...] or other concerns. Patient verbalized understanding. . flu shot today b12 shot today [...] for acyclovir sent to [facility] as well. Glenda is to call if the symptoms do not improve over the weekend. . Sinusitis - Pt has acute infection [...] into affected eye four times daily. . Hypertension - well controlled - continue [...] able. Vitamin B12 deficiency - shot today. CALL SUNDAY IF NOT BETTER-ZPACK OR DOXYCYCLINE KENALOG INJECTION TODAY-START SHORT COURSE OF PREDNISONE TOMORROW . Bronchitis - acute case of bronchitis identified. Pt has been given antibiotics, breathing treatments as appropriate, and pt has been instructed to call if symptoms are not improved, or if symptoms acutely worsen. . Hypertension - well controlled - continue [...] to become less controlled. . vitamin b12 injection . Hypertension - [...] to SI joint on the left today Monitor your blood pressure at home and [...] change in blood pressure readings at home. Once pt runs out of bymakenzie, she is to start on victoza at [...] the byetta. Once pt runs out of diann, she is to start on victoza at [...] in the nasal steroid allergy spray. . Hypertension - well controlled - continue [...] tolerated, use hydrocodone as needed for pain . Pharyngitis-Discussed natural and expected course of [...] the office Monitor blood sugars closely . Diabetes Mellitus - controlled - per [...] previous levels of control. check labs today . Hypertension - well controlled - continue [...] - pt to use triamcinalone cream. . Cellulitis - continue with oral antibiotics as previously directed, return to clinic as previously directed, call for acute change in symptoms, worsening redness, warmth, discharge. . Sacroilitis with sciatica-discussed natural and expected course of this diagnosis and to alert me if symptoms do not follow expected course, or if any worse. SI joint injection given in the office today for acute pain. Recommended anti-inflammatories and back exercises as previously directed. Instructed patient to call if pain persists, or if any worse. . Urinary Tract Infection-discussed natural and expected [...] Call if symptoms do not show improvement. Increase lisinopril to 40mg po daily Monitor [...] B12 injection today in the office . Hypertension - well controlled - continue [...] bmp in 1 month non fasting . Low back pain- The pt is [...] not improve or if they worsen. . Diabetes Mellitus - Uncontrolled - per [...] causing GI upset with nausea and diarrhea. . URI-cough- Pt advised to increase fluids, [...] Kenalog injection today in the office. . Hypertension [...] Vitamin b12 injection given today in clinic. use neosporin on the sites that itch [...] change in blood pressure readings at home. bydureon - (the weekly medication that is [...] in blood pressure readings at home. . Diabetes Mellitus - controlled - per [...] 44% OF THE RECOMMENDED DAILY IRON. . b12 injection . Sacroiliitis -left SI joint injection today [...] to continue with current oral supplementation. . Diabetes Mellitus - controlled - per [...] pressure readings at home. B12 shot today. . Joint Injection - Pt was given post - injection instructions. The pt has been advised to use antiinflammatories post injection today, ice to the injected site, call if redness, warmth, or increased pain occurs at the site of injection. . Sacroilitis with sciatica-discussed natural and expected course of this diagnosis and to alert me if symptoms do not follow expected course, or if any worse. Toradol injection given in the office today for acute pain. Recommended anti-inflammatories and back exercises as previously directed. Instructed patient to call if pain persists, or if any worse. B12 deficiency-B12 injection today in the office . vitamin b12 deficiency - shot given tonight . Hypertension - well controlled - continue [...]
[2018-07-17] MEDS ORDERED: HEParin (CATH LAB) 2,000 ML IV ONE (06:54)
[2018-07-17] MEDS ORDERED: NS IV 1000 ML 1,000 ML ONE (06:54)
[2018-07-17] MEDS ORDERED: LIDOCAINE 1% INJ 20 ML 20 ML VIAL ONE (06:54)
[2018-07-17] MEDS ORDERED: NS IV 1000 ML 1,000 ML IV SCH ×2 (07:00→08:50)
--- OUTSIDE RECORDS SUMMARY | 2018-07-17 07:01 | XMS REPORT | CCD ---
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 Role Phone Daisy Garcia PP Unavailable CCM Unavailable Summary Purpose Interface Exchange Insurance Providers Payer name Policy type / Coverage type Covered alliance party ID Effective Begin Date Effective End Date WPS Medicare Part B Medicare Part B [id number] 2018 Unknown [employer] [employer] Medicare Part B [id number] 2018 Unknown Family history Sister Diagnosis Age [...] 1 daughter 04/21/[address]: 236179035 Nonsmoker 04/21/[address]: 837437317 Never drinks alcohol 04/21/2011 Has the patient [...] Codes Condition Status Onset Date Resolved Date Encounter for screening mammogram for malignant neoplasm [...] Problems Condition Codes Effective Dates Condition Status Encounter for screening mammogram for malignant neoplasm [...] Fill Instructions Zorvolex 35 mg capsule RxNorm: 3348086 1 Capsule(s) PO TID 07/201706/28/2018 Active Lexapro 5 mg tablet RxNorm: 344582 TAKE ONE TABLET BY MOUTH EVERY EVENING 05/30/2018 08/22/2019 Active Zorvolex 35 mg capsule RxNorm: 7708942 1 Capsule(s) PO TID 07/201705/29/2018 Inactive Lomotil 2.5 mg-0.025 mg tablet RxNorm: 5350133 Tablet(s) PO TAKE ONE TABLET BY MOUTH EVERY 8 HOURS NEEDED 05/08/2018 07/06/2018 Active warfarin 2 mg tablet RxNorm: 901314 1 Tablet(s) PO daily 3 days per week, 1/2 Tablet PO 4 days per week- Dr. Andrews manages 05/07/2018 No Stop Date Active cyanocobalamin (vit B-12) 1,000 mcg/mL injection solution RxNorm: 612992 1 Milliliter(s) Inj 05/07/2018 05/07/2018 Inactive Lasix 20 mg tablet RxNorm: 110015 TAKE ONE TABLET BY MOUTH DAILY NEEDED FOR SWELLING. TAKE POTASSIUM WITH EACH DOSE 04/30/2018 08/27/2018 Active Synthroid 50 mcg tablet RxNorm: 937577 TAKE ONE TABLET BY MOUTH EVERY DAY. 04/23/2018 07/16/2019 Active cyanocobalamin (vit B-12) 1,000 mcg/mL injection solution RxNorm: 525671 Milliliter(s) Inj 04/04/2018 04/04/2018 Inactive glipizide 10 mg tablet RxNorm: 826959 Tablet(s) TAKE ONE TABLET BY MOUTH TWICE A DAY 04/03/2018 03/28/2019 Active amlodipine 5 mg tablet RxNorm: 615795 TAKE ONE TABLET BY MOUTH TWICE A DAY 03/12/2018 03/06/2019 Active potassium chloride ER 20 mEq tablet,extended release(part/ cryst) RxNorm: 9494480 TAKE ONE TABLET BY MOUTH DAILY WHEN YOU TAKE LASIX (FUROSEMIDE) 03/12/2018 01/05/2019 Active spironolactone 25 mg tablet RxNorm: 007072 TAKE ONE TABLET BY MOUTH TWICE A DAY 03/11/2018 03/05/2019 Active cyanocobalamin (vit B-12) 1,000 mcg/mL injection solution RxNorm: 008325 1 Milliliter(s) Inj 03/04/2018 03/04/2018 Inactive amiodarone 200 mg tablet RxNorm: 270738 1/2 Tablet(s) PO daily 01/29/2018 No Stop Date Active cyanocobalamin (vit B-12) 1,000 mcg/mL injection solution RxNorm: 478183 1 Milliliter(s) Inj 01/29/2018 01/29/2018 Inactive amlodipine 5 mg tablet RxNorm: 521985 1 Tablet(s) PO QPM 201703/11/2018 Inactive Lexapro 5 mg tablet RxNorm: 934184 1 Tablet(s) PO QPM 201705/29/2018 Inactive warfarin 2 mg tablet RxNorm: 398612 1 Tablet(s) PO daily 4 days per week, 1/2 Tablet PO 3 days per week 01/29/201805/06 Inactive Tenex 1 mg tablet RxNorm: 747816 TAKE ONE TABLET BY MOUTH DAILY 01/21/2018 01/15/2019 Active acyclovir 800 mg tablet RxNorm: 962470 1 Tablet(s) PO TID use if needed for mouth sores 01/01/2018 01/14/2018 Inactive simvastatin 20 mg tablet RxNorm: 601226 TAKE ONE TABLET BY MOUTH EVERY NIGHT AT BEDTIME 12/27/2017 01/28/2018 Inactive acyclovir 800 mg tablet RxNorm: 730791 1 Tablet(s) PO TID 12/2712/31/2017 Inactive metoprolol succinate ER 50 mg tablet,extended release 24 hr RxNorm: 648970 1 Tablet(s) PO daily 12/18/2017 07/15/2018 Active cyanocobalamin (vit B-12) 1,000 mcg/mL injection solution RxNorm: 111929 Milliliter(s) Inj 12/18/2017 12/18/2017 Inactive prednisone 20 mg tablet RxNorm: 912925 1 Tablet(s) PO BID 12/1312/17/2017 Inactive spironolactone 25 mg tablet RxNorm: 058458 TAKE ONE TABLET BY MOUTH TWICE A DAY 12/03/2017 03/02/2018 Inactive hydrocodone 5 mg-acetaminophen 325 mg tablet RxNorm: 620153 1-2 Tablet(s) PO Q4 PRN as needed pain 11/20/2017 No Stop Date Active cyanocobalamin (vit B-12) 1,000 mcg/mL injection solution RxNorm: 259446 1 Milliliter(s) Inj 11/20/2017 11/20/2017 Inactive Lomotil 2.5 mg-0.025 mg tablet RxNorm: 8407966 Tablet(s) PO TAKE ONE TABLET BY MOUTH EVERY 8 HOURS NEEDED 11/07/2017 01/04/2018 Inactive Synthroid 50 mcg tablet RxNorm: 683348 TAKE ONE TABLET BY MOUTH EVERY DAY. 10/16/2017 04/13/2018 Inactive potassium chloride ER 20 mEq tablet,extended release(part/ cryst) RxNorm: 2361969 TAKE ONE TABLET BY MOUTH DAILY WHEN YOU TAKE LASIX (FUROSEMIDE) 09/17/2017 03/11/2018 Inactive Lasix 20 mg tablet RxNorm: 945448 Tablet(s) TAKE ONE TABLET BY MOUTH EVERY DAY NEEDED FOR SWELLING. TAKE POTASSIUM WITH EACH DOSE 201701/07/2018 Inactive glipizide 10 mg tablet RxNorm: 907201 TAKE ONE TABLET BY MOUTH TWICE A DAY 08/28/2017 04/02/2018 Inactive Request already responded to by other means (e.g. phone or fax) glipizide 10 mg tablet RxNorm: 354311 Tablet(s) TAKE ONE TABLET BY MOUTH TWICE A DAY 08/23/2017 08/27/2017 Inactive cyanocobalamin (vit B-12) 1,000 mcg/mL injection solution RxNorm: 467536 1 Milliliter(s) Inj 08/21/2017 08/21/2017 Inactive Synthroid 50 mcg tablet RxNorm: 255082 TAKE ONE TABLET BY MOUTH EVERY DAY. 08/15/2017 10/13/2017 Inactive Tricor 145 mg tablet RxNorm: 482507 TAKE ONE TABLET BY MOUTH DAILY 07/31/2017 11/27/2017 Inactive metformin ER 500 mg tablet,extended release 24 hr RxNorm: 327815 TAKE TWO TABLETS BY MOUTH TWICE A DAY 07/31/20172017 Inactive spironolactone 25 mg tablet RxNorm: 194118 TAKE ONE TABLET BY MOUTH TWICE A DAY 07/31/2017 12/02/2017 Inactive Tenex 1 mg tablet RxNorm: 520412 TAKE ONE TABLET BY MOUTH DAILY 07/20/2017 01/15/2018 Inactive cyanocobalamin (vit B-12) 1,000 mcg/mL injection solution RxNorm: 025255 1 Milliliter(s) Inj 07/18/2017 07/18/2017 Inactive Flonase Allergy Relief 50 mcg/actuation nasal spray, suspension RxNorm: 0628921 1 Corinne NASAL BID 06/18/20172017 Inactive Byetta 10 mcg/dose(250 mcg/mL)2.4 mL subcutaneous pen injector RxNorm: 550190 INJECT 10 MCG UNDER THE SKIN TWO TIMES A DAY ( START AFTER 5 MCG DOSE IS COMPLETE ) 06/18/2017 04/13/2018 Inactive potassium chloride ER 20 mEq tablet,extended release(part/ cryst) RxNorm: 1688310 TAKE ONE TABLET BY MOUTH DAILY WHEN YOU TAKE LASIX (FUROSEMIDE) 06/18/2017 09/15/2017 Inactive Kenalog 40 mg/mL suspension for injection RxNorm: 6026205 1 Milliliter(s) Inj 06/18/2017 06/18/2017 Inactive cyanocobalamin (vit B-12) 1,000 mcg/mL injection solution RxNorm: 781877 1 Milliliter(s) Inj 06/18/2017 06/18/2017 Inactive Lasix 20 mg tablet RxNorm: 631521 Tablet(s) TAKE ONE TABLET BY MOUTH EVERY DAY NEEDED FOR SWELLING. TAKE POTASSIUM WITH EACH DOSE 201609/09/2017 Inactive cyanocobalamin (vit B-12) 1,000 mcg/mL injection solution RxNorm: 288797 1 Milliliter(s) Inj 05/09/2017 05/09/2017 Inactive cyanocobalamin (vit B-12) 1,000 mcg/mL injection solution RxNorm: 182503 1 Milliliter(s) Inj 04/04/2017 04/04/2017 Inactive metformin ER 500 mg tablet,extended release 24 hr RxNorm: 042702 TAKE TWO TABLETS BY MOUTH TWICE A DAY 03/01/20172016 Inactive Kenalog 40 mg/mL suspension for injection RxNorm: 0553950 1 Milliliter(s) Inj 02/23/2017 02/23/2017 Inactive amlodipine 5 mg tablet RxNorm: 702926 TAKE ONE TABLET BY MOUTH TWICE A DAY 02/22/2017 11/18/2017 Inactive glipizide 10 mg tablet RxNorm: 444278 TAKE ONE TABLET BY MOUTH TWICE A DAY 02/12/2017 08/10/2017 Inactive cyanocobalamin (vit B-12) 1,000 mcg/mL injection solution RxNorm: 369259 Milliliter(s) Inj 01/23/2017 01/23/2017 Inactive Synthroid 50 mcg tablet RxNorm: 825318 TAKE ONE TABLET BY MOUTH EVERY DAY. 12/21/2016 06/18/2017 Inactive potassium chloride ER 20 mEq tablet,extended release(part/ cryst) RxNorm: 3756737 TAKE ONE TABLET BY MOUTH DAILY WHEN YOU TAKE LASIX (FUROSEMIDE) 12/21/2016 04/19/2017 Inactive Tricor 145 mg tablet RxNorm: 862783 TAKE ONE TABLET BY MOUTH DAILY 12/21/2016 06/06/2017 Inactive Lasix 20 mg tablet RxNorm: 799541 TAKE ONE TABLET BY MOUTH EVERY DAY NEEDED FOR SWELLING. TAKE POTASSIUM WITH EACH DOSE 12/11/2016 04/09/2017 Inactive cyanocobalamin (vit B-12) 1,000 mcg/mL injection solution RxNorm: 222558 1 Milliliter(s) Inj 11/14/2016 11/14/2016 Inactive simvastatin 20 mg tablet RxNorm: 667649 TAKE ONE TABLET BY MOUTH EVERY NIGHT AT BEDTIME 10/23/2016 04/15/2017 Inactive Tenex 1 mg tablet RxNorm: 001512 TAKE ONE TABLET BY MOUTH DAILY 10/16/2016 11/14/2016 Inactive glipizide 10 mg tablet RxNorm: 833883 TAKE ONE TABLET BY MOUTH TWICE A DAY 09/20/2016 02/11/2017 Inactive doxycycline hyclate 100 mg capsule RxNorm: 5181862 1 Capsule(s) PO BID 09/12/2016 09/18/2016 Inactive doxycycline hyclate 100 mg capsule RxNorm: 9952964 1 Capsule(s) PO BID 09/12/2016 09/11/2016 Inactive Phenergan with Codeine Syrup RxNorm: 5-10 Milliliter(s) PO Q6 PRN 09/07/2016 No Stop Date Active prednisone 20 mg tablet RxNorm: 035251 1 Tablet(s) PO BID 09/0709/11/2016 Inactive Kenalog 40 mg/mL suspension for injection RxNorm: 1355633 1 Milliliter(s) Inj 09/07/2016 09/07/2016 Inactive Tessalon Perles 100 mg capsule RxNorm: 121435 1 Capsule(s) PO TID PRN 09/01/2016 09/20/2016 Inactive Zyrtec 10 mg capsule RxNorm: 3750265 1 Capsule(s) PO daily 01/28/2018 Inactive Flonase Allergy Relief 50 mcg/actuation nasal spray, suspension RxNorm: 6861053 1 Corinne NASAL BID 08/29/20162016 Inactive cyanocobalamin (vit B-12) 1,000 mcg/mL injection solution RxNorm: 833772 1 Milliliter(s) Inj 08/29/2016 08/29/2016 Inactive metformin ER 500 mg tablet,extended release 24 hr RxNorm: 205969 Tablet(s) TAKE TWO TABLETS BY MOUTH TWICE A DAY 08/28/2016 02/23/2017 Inactive Lopressor 100 mg tablet RxNorm: 217517 TAKE ONE TABLET BY MOUTH DAILY 06/27/2016 04/15/2017 Inactive cetirizine 10 mg tablet RxNorm: 6195745 1 Tablet(s) PO daily 07/11/2016 Inactive Flonase Allergy Relief 50 mcg/actuation nasal spray, suspension RxNorm: 2163515 1 Corinne NASAL BID 06/12/20162016 Inactive cyanocobalamin (vit B-12) 1,000 mcg/mL injection solution RxNorm: 775987 Milliliter(s) Inj 06/12/2016 06/12/2016 Inactive spironolactone 25 mg tablet RxNorm: 887374 TAKE ONE TABLET BY MOUTH TWICE A DAY 06/06/2016 03/02/2017 Inactive Request already responded to by other means (e.g. phone or fax) spironolactone 25 mg tablet RxNorm: 561251 Tablet(s) TAKE ONE TABLET BY MOUTH TWICE A DAY 05/29/2016 06/05/2016 Inactive ceftriaxone 500 mg solution for injection RxNorm: 2505781 2 Milliliter(s) Inj 05/04/2016 05/04/2016 Inactive cyanocobalamin (vit B-12) 1,000 mcg/mL injection solution RxNorm: 510654 Milliliter(s) Inj 05/04/2016 05/04/2016 Inactive Cipro 500 mg tablet RxNorm: 004317 1 Tablet(s) PO BID 201505/10/2016 Inactive OneTouch Ultra Test strips RxNorm: TEST DAILY 04/24/2016 04/18/2017 Inactive Byetta 10 mcg/dose(250 mcg/mL)2.4 mL subcutaneous pen injector RxNorm: 854882 INJECT 10 MCG UNDER THE SKIN TWO TIMES A DAY ( START AFTER 5 MCG DOSE IS COMPLETE ) 04/18/2016 03/13/2017 Inactive Lasix 20 mg tablet RxNorm: 955666 TAKE ONE TABLET BY MOUTH EVERY DAY NEEDED FOR SWELLING. TAKE POTASSIUM WITH EACH DOSE 04/07/2016 09/03/2016 Inactive potassium chloride ER 20 mEq tablet,extended release(part/ cryst) RxNorm: 1701796 TAKE ONE TABLET BY MOUTH DAILY WHEN YOU TAKE LASIX (FUROSEMIDE) 04/07/2016 09/03/2016 Inactive triamcinolone acetonide 0.5 % topical cream RxNorm: 1941070 1 Application TOP BID to lesions on buttock 03/30/20162015 Inactive metformin ER 500 mg tablet,extended release 24 hr RxNorm: 850093 TAKE TWO TABLETS BY MOUTH TWICE A DAY 03/23/20162016 Inactive cyanocobalamin (vit B-12) 1,000 mcg/mL injection solution RxNorm: 970655 Milliliter(s) Inj 03/17/2016 03/17/2016 Inactive glipizide 10 mg tablet RxNorm: 277281 TAKE ONE TABLET BY MOUTH TWICE A DAY 03/17/2016 04/02/2018 Inactive Request already responded to by other means (e.g. phone or fax) glipizide 10 mg tablet RxNorm: 606493 Tablet(s) TAKE ONE TABLET BY MOUTH TWICE A DAY 03/13/2016 03/16/2016 Inactive Tricor 145 mg tablet RxNorm: 751911 TAKE ONE TABLET BY MOUTH ONCE A DAY 02/18/2016 02/11/2017 Inactive Request already responded to by other means (e.g. phone or fax) amlodipine 5 mg tablet RxNorm: 563231 TAKE ONE TABLET BY MOUTH TWICE A DAY 02/18/2016 05/06/2018 Inactive Request already responded to by other means (e.g. phone or fax) cyanocobalamin (vit B-12) 1,000 mcg/mL injection solution RxNorm: 881946 1 Milliliter(s) Inj 02/15/2016 02/15/2016 Inactive amlodipine 5 mg tablet RxNorm: 155718 Tablet(s) TAKE ONE TABLET BY MOUTH TWICE A DAY 02/14/2016 02/17/2016 Inactive Tricor 145 mg tablet RxNorm: 956473 1 Tablet(s) PO daily TAKE ONE TABLET BY MOUTH ONCE A DAY 02/14/2016 02/17/2016 Inactive Synthroid 50 mcg tablet RxNorm: 651684 TAKE ONE TABLET BY MOUTH EVERY DAY. 01/31/2016 08/27/2016 Inactive hydrocodone 5 mg-acetaminophen 325 mg tablet RxNorm: 953631 1-2 Tablet(s) PO Q4 PRN as needed pain 01/28/2016 11/19/2017 Inactive cyanocobalamin (vit B-12) 1,000 mcg/mL injection solution RxNorm: 421857 Milliliter(s) Inj 01/19/2016 01/19/2016 Inactive metformin ER 500 mg tablet,extended release 24 hr RxNorm: 037869 TAKE TWO TABLETS BY MOUTH TWICE A DAY 01/18/20162015 Inactive cyanocobalamin (vit B-12) 1,000 mcg/mL injection solution RxNorm: 263970 1 Milliliter(s) Inj 12/07/2015 12/07/2015 Inactive metformin ER 500 mg tablet,extended release 24 hr RxNorm: 762236 TAKE TWO TABLETS BY MOUTH TWICE A DAY 10/18/20152015 Inactive simvastatin 20 mg tablet RxNorm: 679682 1 Tablet(s) PO QHS TAKE ONE TABLET BY MOUTH AT BEDTIME 10/08/2015 10/01/2016 Inactive Tenex 1 mg tablet RxNorm: 408748 TAKE ONE TABLET BY MOUTH DAILY 10/04/2015 09/27/2016 Inactive Lopressor 100 mg tablet RxNorm: 690268 TAKE ONE TABLET BY MOUTH DAILY 09/20/2015 06/15/2016 Inactive Diflucan 150 mg tablet RxNorm: 438257 1 Tablet(s) PO daily 02/201609/12/2015 Inactive cyanocobalamin (vit B-12) 1,000 mcg/mL injection kit RxNorm: 443224 kit Inj 09/06/2015 09/06/2015 Inactive gentamicin 0.3 % eye drops RxNorm: 924914 2 Drop(s) OPH QID 02/201609/12/2015 Inactive ceftriaxone 500 mg solution for injection RxNorm: 4250216 Inj 09/06/2015 09/06/2015 Inactive Keflex 500 mg capsule RxNorm: 517299 1 Capsule(s) PO TID 201509/12/2015 Inactive hydrocodone 5 mg-acetaminophen 325 mg tablet RxNorm: 595779 1-2 Tablet(s) PO Q4 PRN as needed pain 08/09/2015 01/27/2016 Inactive Lortab 5 mg-500 mg tablet RxNorm: 253163 1-2 Tablet(s) PO Q4 PRN as needed pain 08/03/2015 08/08/2015 Inactive Diflucan 150 mg tablet RxNorm: 244494 1 Tablet(s) PO daily 07/16/2015 Inactive Lasix 20 mg tablet RxNorm: 202449 TAKE ONE TABLET BY MOUTH EVERY DAY NEEDED FOR SWELLING. TAKE POTASSIUM WITH EACH DOSE 07/13/2015 01/08/2016 Inactive spironolactone 25 mg tablet RxNorm: 089004 TAKE ONE TABLET BY MOUTH TWICE A DAY 07/13/2015 05/07/2016 Inactive potassium chloride ER 20 mEq tablet,extended release(part/ cryst) RxNorm: 160893 TAKE ONE TABLET BY MOUTH DAILY WHEN YOU TAKE LASIX (FUROSEMIDE) 07/13/2015 01/08/2016 Inactive Tessalon Perles 100 mg capsule RxNorm: 946779 1 Capsule(s) PO TID PRN 07/05/2015 08/31/2016 Inactive Keflex 500 mg capsule RxNorm: 152590 1 Capsule(s) PO TID 201407/14/2015 Inactive Kenalog 40 mg/mL suspension for injection RxNorm: 1262288 Milliliter(s) Inj 07/05/2015 07/05/2015 Inactive ceftriaxone 500 mg solution for injection RxNorm: 5999678 Inj 07/05/2015 07/05/2015 Inactive cyanocobalamin (vit B-12) 1,000 mcg/mL injection solution RxNorm: 011967 Milliliter(s) Inj 06/28/2015 06/28/2015 Inactive Synthroid 50 mcg tablet RxNorm: 838768 TAKE ONE TABLET BY MOUTH EVERY DAY. 06/21/2015 11/17/2015 Inactive metformin ER 500 mg tablet,extended release 24 hr RxNorm: 891499 TAKE TWO TABLETS BY MOUTH TWICE A DAY 06/14/20152015 Inactive glipizide 10 mg tablet RxNorm: 552959 TAKE ONE TABLET BY MOUTH TWICE A DAY 05/31/2015 02/24/2016 Inactive cyanocobalamin (vit B-12) 1,000 mcg/mL injection solution RxNorm: 968865 Milliliter(s) Inj 05/13/2015 05/13/2015 Inactive Tricor 145 mg tablet RxNorm: 826633 1 Tablet(s) PO daily TAKE ONE TABLET BY MOUTH ONCE A DAY 05/07/2015 05/06/2015 Inactive Tricor 145 mg tablet RxNorm: 311820 1 Tablet(s) PO daily TAKE ONE TABLET BY MOUTH ONCE A DAY 05/07/2015 01/31/2016 Inactive Tricor 145 mg tablet RxNorm: 657002 TAKE ONE TABLET BY MOUTH ONCE A DAY 05/06/2015 05/06/2015 Inactive Byetta 10 mcg/dose(250 mcg/mL)2.4 mL subcutaneous pen injector RxNorm: 287965 Microgram(s) SQ 10mcg twice daily ( start after 5mcg dose is complete) 04/01/2015 03/25/2016 Inactive Byetta 5 mcg/dose (250 mcg/mL)1.2 mL subcutaneous pen injector RxNorm: 970969 Microgram(s) SQ 5mcg twice daily x 1 month 03/04/2015 04/02/2015 Inactive Byetta 10 mcg/dose(250 mcg/mL)2.4 mL subcutaneous pen injector RxNorm: 752528 Microgram(s) SQ 10mcg twice daily ( start after 5mcg dose is complete) 03/04/2015 03/31/2015 Inactive Byetta 5 mcg/dose (250 mcg/mL)1.2 mL subcutaneous pen injector RxNorm: 708725 Microgram(s) SQ 5mcg twice daily x 1 month 03/04/2015 03/03/2015 Inactive Byetta 10 mcg/dose(250 mcg/mL)2.4 mL subcutaneous pen injector RxNorm: 947594 Microgram(s) SQ 10mcg twice daily ( start after 5mcg dose is complete) 03/04/2015 03/03/2015 Inactive cyanocobalamin (vit B-12) 1,000 mcg/mL injection solution RxNorm: 271577 Milliliter(s) Inj 02/23/2015 02/23/2015 Inactive cyanocobalamin (vit B-12) 1,000 mcg/mL injection solution RxNorm: 688147 Milliliter(s) Inj 01/08/2015 01/08/2015 Inactive simvastatin 20 mg tablet RxNorm: 104581 TAKE ONE TABLET BY MOUTH AT BEDTIME 01/07/2015 10/03/2015 Inactive Lortab 5 mg-500 mg tablet RxNorm: 210042 1-2 Tablet(s) PO Q4 PRN as needed q 4- 6hrs prn pain 12/15/2014 08/02/2015 Inactive Lortab 5 mg-500 mg tablet RxNorm: 815320 1-2 Tablet(s) PO Q4 PRN as needed q 4- 6hrs prn pain 12/15/2014 08/02/2015 Inactive amlodipine 5 mg tablet RxNorm: 801007 TAKE ONE TABLET BY MOUTH TWICE A DAY 12/14/2014 12/13/2014 Inactive amlodipine 5 mg tablet RxNorm: 050771 TAKE ONE TABLET BY MOUTH TWICE A DAY 12/14/2014 03/13/2015 Inactive cyanocobalamin (vit B-12) 1,000 mcg/mL injection solution RxNorm: 851424 Milliliter(s) Inj 12/08/2014 12/08/2014 Inactive Synthroid 50 mcg tablet RxNorm: 130836 TAKE ONE TABLET BY MOUTH EVERY DAY. 10/29/2014 04/26/2015 Inactive Lasix 20 mg tablet RxNorm: 645041 Tablet(s) TAKE ONE TABLET BY MOUTH EVERY DAY NEEDED FOR SWELLING. TAKE POTASSIUM WITH EACH DOSE 201405/25/2015 Inactive potassium chloride ER 20 mEq tablet,extended release(part/ cryst) RxNorm: 036554 Tablet(s) TAKE ONE TABLET BY MOUTH EVERY DAY WHEN YOU TAKE LASIX (FUROSEMIDE) 10/28/2014 05/25/2015 Inactive cyanocobalamin (vit B-12) 1,000 mcg/mL injection solution RxNorm: 830696 Milliliter(s) Inj 10/26/2014 10/26/2014 Inactive OneTouch Ultra Test strips RxNorm: TEST TWO TIMES A DAY 201405/10/2028 Active OneTouch Ultra Test strips RxNorm: 1 Miscellaneous BID 201410/21/2014 Inactive dx: 250.02 Victoza 2-J Luis 0.6 mg/0.1 mL (18 mg/3 mL) subcutaneous pen injector RxNorm: 874582 1.8 Milligram(s) SQ daily 09/24/201402/22 Inactive cyanocobalamin (vit B-12) 1,000 mcg/mL injection solution RxNorm: 346372 Milliliter(s) Inj 09/24/2014 09/24/2014 Inactive Tenex 1 mg tablet RxNorm: 430963 1 Tablet(s) PO daily TAKE ONE TABLET BY MOUTH EVERY DAY 09/24/2014 10/03/2015 Inactive Lopressor 100 mg tablet RxNorm: 284763 TAKE ONE TABLET BY MOUTH EVERY DAY 09/14/2014 06/10/2015 Inactive Lopressor 100 mg tablet RxNorm: 864816 1 Tablet(s) PO daily TAKE ONE TABLET BY MOUTH EVERY DAY 09/14/2014 09/13/2014 Inactive cyanocobalamin (vit B-12) 1,000 mcg/mL injection solution RxNorm: 008128 Milliliter(s) Inj 08/24/2014 08/24/2014 Inactive [SAVINGS FOR UNINSURED PATIENTS - - BIN:[id number], PCN: [id number], Group: [facility], ID# [id number], Process claim through VISup, for questions: . THIS IS NOT INSURANCE.] Victoza 2-J Luis 0.6 mg/0.1 mL (18 mg/3 mL) subcutaneous pen injector RxNorm: 861770 1.2 Milligram(s) SQ daily 08/05/201409/23 Inactive glipizide 10 mg tablet RxNorm: 619122 TAKE ONE TABLET BY MOUTH TWICE A DAY 07/28/2014 05/23/2015 Inactive Tenex 1 mg tablet RxNorm: 464202 TAKE ONE TABLET BY MOUTH EVERY DAY 07/02/2014 07/01/2014 Inactive Tenex 1 mg tablet RxNorm: 637250 TAKE ONE TABLET BY MOUTH EVERY DAY 07/02/2014 09/23/2014 Inactive spironolactone 25 mg tablet RxNorm: 574102 TAKE ONE TABLET BY MOUTH TWICE A DAY 07/02/2014 04/27/2015 Inactive spironolactone 25 mg tablet RxNorm: 853199 Tablet(s) PO TAKE ONE TABLET BY MOUTH TWICE A DAY 06/30/2014 07/01/2014 Inactive Tenex 1 mg tablet RxNorm: 789705 Tablet(s) PO TAKE ONE TABLET BY MOUTH EVERY DAY 06/30/2014 07/01/2014 Inactive Lortab 5 mg-500 mg tablet RxNorm: 268810 1-2 Tablet(s) PO Q4 PRN as needed q 4- 6hrs prn pain 06/22/2014 12/14/2014 Inactive metformin ER 500 mg tablet,extended release 24 hr RxNorm: 892596 Tablet(s) PO TAKE TWO TABLETS BY MOUTH TWICE A DAY 06/05/2014 06/13/2015 Inactive [SAVINGS FOR UNINSURED PATIENTS -- BIN:[id number], PCN: [id number], Group: [id number], ID# [id number], Process claim through VISup, for questions: . THIS IS NOT INSURANCE.] cyanocobalamin (vit B-12) 1,000 mcg/mL injection solution RxNorm: 315047 1 Milliliter(s) Inj monthly 06/01/201406/01 Inactive Kenalog 40 mg/mL suspension for injection RxNorm: 4365128 1 Milliliter(s) Inj 05/11/2014 05/11/2014 Inactive cyanocobalamin (vit B-12) 1,000 mcg/mL injection kit RxNorm: 400711 Milliliter(s) Inj 04/27/2014 04/27/2014 Inactive amlodipine 5 mg tablet RxNorm: 328696 TAKE ONE TABLET BY MOUTH TWICE A DAY 04/02/2014 07/30/2014 Inactive cyanocobalamin (vit B-12) 1,000 mcg/mL injection kit RxNorm: 716337 1 Milliliter(s ) Inj 03/24/2014 03/24/2014 Inactive [SAVINGS FOR UNINSURED PATIENTS -- BIN:[id number] , PCN: [id number], Group: [id number], ID# [id number], Process claim through VISup, for questions: . THIS IS NOT INSURANCE.] cyanocobalamin (vit B-12) 1,000 mcg/mL injection solution RxNorm: 852225 1 Milliliter(s) Inj 03/24/2014 03/24/2014 Inactive Synthroid 50 mcg tablet RxNorm: 556279 TAKE ONE TABLET BY MOUTH EVERY DAY. 03/01/2014 09/26/2014 Inactive Lasix 20 mg tablet RxNorm: TAKE ONE TABLET BY MOUTH EVERY DAY NEEDED FOR SWELLING. TAKE POTASSIUM WITH EACH DOSE 03/01/2014 09/26/2014 Inactive potassium chloride ER 20 mEq tablet,extended release(part/ cryst) RxNorm: 429013 TAKE ONE TABLET BY MOUTH EVERY DAY WHEN YOU TAKE LASIX (FUROSEMIDE) 03/01/2014 09/26/2014 Inactive cyanocobalamin (vit B-12) 1,000 mcg/mL injection solution RxNorm: 563691 1 Milliliter(s) Inj 02/24/2014 02/24/2014 Inactive Tricor 145 mg tablet RxNorm: 568854 TAKE ONE TABLET BY MOUTH EVERY DAY 02/16/2014 02/15/2014 Inactive Victoza 2-J Luis 0.6 mg/0.1 mL (18 mg/3 mL) subcutaneous pen injector RxNorm: 750993 1.2 Milligram(s) SQ daily 02/16/201408/04 Inactive Tricor 145 mg tablet RxNorm: 644565 TAKE ONE TABLET BY MOUTH EVERY DAY 02/16/2014 06/15/2014 Inactive Synthroid 50 mcg tablet RxNorm: 691158 TAKE ONE TABLET BY MOUTH EVERY DAY. 02/02/2014 03/03/2014 Inactive Synthroid 50 mcg tablet RxNorm: 154815 TAKE ONE TABLET BY MOUTH EVERY DAY. 02/02/2014 02/01/2014 Inactive simvastatin 20 mg tablet RxNorm: 672240 TAKE ONE TABLET BY MOUTH AT BEDTIME 01/12/2014 01/06/2015 Inactive cyanocobalamin (vit B-12) 1,000 mcg/mL injection solution RxNorm: 426614 Milliliter(s) Inj 01/09/2014 01/09/2014 Inactive Lortab 5 mg-500 mg tablet RxNorm: 188705 1-2 Tablet(s) PO Q4 PRN q 4-6hrs prn pain 12/23/2013 No Stop Date Active Lasix 20 mg tablet RxNorm: Tablet(s) PO TAKE ONE TABLET BY MOUTH EVERY DAY NEEDED FOR SWELLING. TAKE POTASSIUM WITH EACH DOSE 12/201302/28/2014 Inactive potassium chloride ER 20 mEq tablet,extended release(part/ cryst) RxNorm: 067452 Tablet(s) PO TAKE ONE TABLET BY MOUTH EVERY DAY WHEN YOU TAKE LASIX (FUROSEMIDE ) 12/02/2013 02/28/2014 Inactive Lomotil 2.5 mg-0.025 mg tablet RxNorm: 0873798 Tablet(s) PO TAKE ONE TABLET BY MOUTH EVERY 8 HOURS NEEDED 11/27/2013 01/28/2018 Inactive (Appended: Controlled substance eRx refill - RxReferenceNumber: [id number]) Lomotil 2.5 mg-0.025 mg tablet RxNorm: 2076411 1 Tablet(s) PO Q8 PRN 11/27/2013 05/24/2014 Inactive cyanocobalamin (vit B-12) 1,000 mcg/mL injection solution RxNorm: 679018 1 Milliliter(s) Inj 11/27/2013 11/27/2013 Inactive Vitamin B-12 1,000 mcg/mL injection solution RxNorm: 623750 1 Milliliter(s) Inj monthly 11/24/2013 11/18/2014 Inactive ok to give multidose if available Synthroid 50 mcg tablet RxNorm: 777599 Tablet(s) PO TAKE ONE TABLET BY MOUTH EVERY DAY. 10/31/2013 02/01/2014 Inactive simvastatin 20 mg tablet RxNorm: 488550 Tablet(s) PO TAKE ONE TABLET BY MOUTH AT BEDTIME 10/10/2013 01/11/2014 Inactive Vitamin B-12 1,000 mcg/mL injection solution RxNorm: 060394 1 Milliliter(s) Inj monthly 09/30/2013 09/29/2013 Inactive ok to give multidose if available Vitamin B-12 1,000 mcg/mL injection solution RxNorm: 824533 1 Milliliter(s) Inj monthly 09/30/2013 11/23/2013 Inactive ok to give multidose if available Vitamin B-12 1,000 mcg/mL injection solution RxNorm: 341508 1 Milliliter(s) Inj 09/18/2013 09/18/2013 Inactive Lopressor 100 mg tablet RxNorm: 475040 Tablet(s) PO TAKE ONE TABLET BY MOUTH EVERY DAY 09/15/2013 09/13/2014 Inactive Vitamin B-12 1,000 mcg/mL injection solution RxNorm: 936799 1 Milliliter(s) Inj 08/22/2013 08/22/2013 Inactive glipizide 10 mg tablet RxNorm: 611280 Tablet(s) PO TAKE ONE TABLET BY MOUTH TWICE A DAY 08/15/2013 07/27/2014 Inactive Tenex 1 mg tablet RxNorm: 085368 Tablet(s) PO TAKE ONE TABLET BY MOUTH EVERY DAY 08/05/2013 06/29/2014 Inactive potassium chloride ER 20 mEq tablet,extended release(part/ cryst) RxNorm: 670706 Tablet(s) PO TAKE ONE TABLET BY MOUTH EVERY DAY WHEN YOU TAKE LASIX (FUROSEMIDE ) 07/31/2013 12/01/2013 Inactive spironolactone 25 mg tablet RxNorm: 424928 Tablet(s) PO TAKE ONE TABLET BY MOUTH TWICE A DAY 07/31/2013 06/29/2014 Inactive Lasix 20 mg tablet RxNorm: 220893 Tablet(s) PO TAKE ONE TABLET BY MOUTH EVERY DAY NEEDED FOR SWELLING. TAKE POTASSIUM WITH EACH DOSE 08/201312/01/2013 Inactive Vitamin B-12 1,000 mcg/mL injection solution RxNorm: 211162 Milliliter(s) Inj 07/28/2013 07/28/2013 Inactive Synthroid 50 mcg tablet RxNorm: 021954 Tablet(s) PO TAKE ONE TABLET BY MOUTH EVERY DAY. PATIENT DUE FOR TSH LEVEL LAB 06/30/2013 06/29/2013 Inactive Synthroid 50 mcg tablet RxNorm: 184657 Tablet(s) PO TAKE ONE TABLET BY MOUTH EVERY DAY. PATIENT DUE FOR TSH LEVEL LAB 06/30/2013 10/30/2013 Inactive potassium chloride ER 20 mEq tablet,extended release(part/ cryst) RxNorm: 153806 Tablet(s) PO TAKE ONE TABLET BY MOUTH EVERY DAY WHEN YOU TAKE LASIX (FUROSEMIDE ) 06/23/2013 07/30/2013 Inactive Lasix 20 mg tablet RxNorm: 222743 Tablet(s) PO TAKE ONE TABLET BY MOUTH EVERY DAY NEEDED FOR SWELLING. TAKE POTASSIUM WITH EACH DOSE 07/30/2013 Inactive amlodipine 5 mg tablet RxNorm: 575337 Tablet(s) PO TAKE ONE TABLET BY MOUTH TWICE A DAY 06/17/2013 04/01/2014 Inactive metformin ER 500 mg tablet,extended release 24 hr RxNorm: 314287 Tablet(s) PO TAKE TWO TABLETS BY MOUTH TWICE A DAY 05/26/2013 06/04/2014 Inactive metformin ER 500 mg tablet,extended release 24 hr RxNorm: 875655 Tablet(s) PO TAKE TWO TABLETS BY MOUTH TWICE A DAY 05/26/2013 05/25/2013 Inactive Vitamin B-12 1,000 mcg/mL injection solution RxNorm: 439586 1 Milliliter(s) Inj 05/21/2013 05/21/2013 Inactive Vitamin B-12 1,000 mcg/mL Injection RxNorm: 099007 Milliliter(s) Inj 04/23/2013 04/23/2013 Inactive Influenza Virus Vaccine 0.5 mL RxNorm: IM 04/23/2013 04/23/2013 Inactive Synthroid 50 mcg tablet RxNorm: 085053 Tablet(s) PO TAKE ONE TABLET BY MOUTH EVERY DAY. PATIENT DUE FOR TSH LEVEL LAB 04/17/2013 06/29/2013 Inactive Lasix 20 mg tablet RxNorm: 561244 Tablet(s) PO TAKE ONE TABLET BY MOUTH EVERY DAY NEEDED FOR SWELLING. TAKE POTASSIUM WITH EACH DOSE 06/22/2013 Inactive potassium chloride ER 20 mEq tablet,extended release(part/ cryst) RxNorm: 4289387 Tablet(s) PO TAKE ONE TABLET BY MOUTH EVERY DAY WHEN YOU TAKE LASIX (FUROSEMIDE ) 04/17/2013 06/22/2013 Inactive simvastatin 20 mg tablet RxNorm: 994739 Tablet(s) PO TAKE ONE TABLET BY MOUTH AT BEDTIME 04/10/2013 10/09/2013 Inactive Vitamin B-12 1,000 mcg/mL Injection RxNorm: 972301 1 Milliliter(s) Inj 03/24/2013 03/24/2013 Inactive Lopressor 100 mg tablet RxNorm: 189341 Tablet(s) PO TAKE ONE TABLET BY MOUTH EVERY DAY 03/18/2013 09/14/2013 Inactive cyanocobalamin (vitamin B-12) 1,000 mcg/mL Injection RxNorm: 902847 Milliliter(s) Inj 02/20/2013 02/20/2013 Inactive Tricor 145 mg tablet RxNorm: 635867 Tablet(s) PO TAKE ONE TABLET BY MOUTH EVERY DAY 02/14/2013 02/15/2014 Inactive Vitamin B-12 1,000 mcg/mL Injection RxNorm: 622760 1 Milliliter(s) Inj 01/22/2013 01/22/2013 Inactive potassium chloride ER 20 mEq tablet,extended release(part/ cryst) RxNorm: 6817738 1 Tablet(s) PO QDAY PRN take when taking prn lasix 201204/16/2013 Inactive Lasix 20 mg tablet RxNorm: 752422 1 Tablet(s) PO QDAY PRN daily prn swelling - to take kcl with lasix 01/22/20132012 Inactive cyanocobalamin (vitamin B-12) 1,000 mcg/mL Injection RxNorm: 610965 Milliliter(s) Inj 12/19/2012 12/19/2012 Inactive cyanocobalamin (vitamin B-12) 1,000 mcg/mL Injection RxNorm: 482143 Milliliter(s) Inj 11/20/2012 11/20/2012 Inactive Diflucan 150 mg tablet RxNorm: 883492 1 Tablet(s) PO daily 11/21/2012 Inactive Synthroid 50 mcg tablet RxNorm: 013611 Tablet(s) PO TAKE ONE TABLET BY MOUTH EVERY DAY. PATIENT DUE FOR TSH LEVEL LAB 11/18/2012 04/16/2013 Inactive Keflex 500 mg capsule RxNorm: 713451 1 Capsule(s) PO TID 201211/19/2012 Inactive Keflex 500 mg capsule RxNorm: 434750 1 Capsule(s) PO TID 201211/12/2012 Inactive Byetta 10 mcg/0.04 mL per dose Sub-Q Pen Injector RxNorm: 030521 Pen Injector SQ DIAL AND INJECT SUBCUTANEOUSLY 10 MCG TWICE DAILY WITHIN 60 MINUTES BEFORE MORNING AND EVENING MEALS. DO NOT ADMINISTER AFTER A MEAL. 04/03/2014 Inactive cyanocobalamin (vitamin B-12) 1,000 mcg/mL Injection RxNorm: 711129 1 Milliliter(s ) Inj 10/23/2012 10/23/2012 Inactive Lortab 5 mg-500 mg tablet RxNorm: 581535 1-2 Tablet(s) PO Q4 PRN q 4-6hrs prn pain 10/02/2012 12/22/2013 Inactive cyanocobalamin (vitamin B-12) 1,000 mcg/mL Injection RxNorm: 520109 Milliliter(s) Inj 09/16/2012 09/16/2012 Inactive Vitamin B-12 1,000 mcg/mL Injection RxNorm: 403343 1 Milliliter(s) Inj 08/15/2012 08/15/2012 Inactive glipizide 10 mg tablet RxNorm: 087902 Tablet(s) PO TAKE ONE TABLET BY MOUTH TWICE A DAY 08/12/2012 08/14/2013 Inactive Tenex 1 mg tablet RxNorm: 024842 Tablet(s) PO TAKE ONE TABLET BY MOUTH EVERY DAY 08/12/2012 08/04/2013 Inactive Kenalog 40 mg/mL Susp for Injection RxNorm: 2126064 1 Milliliter(s) Inj 08/06/2012 01/22/2013 Inactive spironolactone 25 mg tablet RxNorm: 190476 Tablet(s) PO TAKE ONE TABLET BY MOUTH TWICE A DAY 07/29/2012 07/30/2013 Inactive cefdinir 300 mg capsule RxNorm: 395973 1 Capsule(s) PO BID 08/01/2012 Inactive cefdinir 300 mg capsule RxNorm: 444927 1 Capsule(s) PO BID 07/25/2012 Inactive Vitamin B-12 1,000 mcg/mL Injection RxNorm: 087019 1 Milliliter(s) Inj 07/19/2012 07/19/2012 Inactive simvastatin 20 mg tablet RxNorm: 577678 Tablet(s) PO TAKE ONE TABLET BY MOUTH AT BEDTIME 07/08/2012 04/09/2013 Inactive simvastatin 20 mg tablet RxNorm: 159505 Tablet(s) PO TAKE ONE TABLET BY MOUTH AT BEDTIME 07/08/2012 10/07/2015 Inactive Synthroid 50 mcg tablet RxNorm: 230156 1 Tablet(s) PO daily 12/201110/31/2012 Inactive Please advise patient due for TSH level. amlodipine 5 mg tablet RxNorm: 589208 1 Tablet(s) PO BID 201112/15/2012 Inactive amlodipine 5 mg tablet RxNorm: 828638 1 Tablet(s) PO BID 201106/18/2012 Inactive Vitamin B-12 1,000 mcg/mL Injection RxNorm: 510495 Milliliter(s) Inj 06/19/2012 06/19/2012 Inactive Lopressor 100 mg tablet RxNorm: 434818 Tablet(s) PO 06/17/2012 03/17/2013 Inactive TAKE ONE TABLET BY MOUTH EVERY DAY Vitamin B-12 1,000 mcg/mL Injection RxNorm: 429122 Milliliter(s) Inj 05/22/2012 05/22/2012 Inactive Synthroid 50 mcg tablet RxNorm: 744292 1 Tablet(s) PO daily 06/11/2012 Inactive Please advise patient due for TSH level. Diflucan 150 mg tablet RxNorm: 398730 1 Tablet(s) PO daily 11/18/2012 Inactive metformin ER 500 mg tablet,extended release 24 hr RxNorm: 399422 2 Tablet(s) PO BID 04/25/2012 05/19/2013 Inactive Vitamin B-12 1,000 mcg/mL Injection RxNorm: 661581 Milliliter(s) Inj 04/22/2012 04/22/2012 Inactive Vitamin B-12 1,000 mcg/mL Injection RxNorm: 238158 Milliliter(s) Inj 03/19/2012 03/19/2012 Inactive Vitamin B-12 1,000 mcg/mL Injection RxNorm: 704014 Milliliter(s) Inj 02/15/2012 02/15/2012 Inactive Tricor 145 mg tablet RxNorm: 964345 1 Tablet(s) PO daily 201102/13/2013 Inactive Vitamin B-12 1,000 mcg/mL Injection RxNorm: 738819 Milliliter(s) Inj 01/18/2012 01/18/2012 Inactive Kenalog 40 mg/mL Susp for Injection RxNorm: 1544935 1 Milliliter(s) Inj 12/28/2011 12/28/2011 Inactive Vitamin B-12 1,000 mcg/mL Injection RxNorm: 915400 Milliliter(s) Inj 12/20/2011 12/20/2011 Inactive omeprazole 20 mg Cap, delayed release RxNorm: 339459 1 Capsule(s) PO daily 12/07/2011 11/30/2012 Inactive may take bid if nec cyanocobalamin (vitamin B-12) 1,000 mcg/mL Injection RxNorm: 068913 1 Milliliter(s ) Inj 11/07/2011 11/07/2011 Inactive cyanocobalamin (vitamin B-12) 1,000 mcg/mL Injection RxNorm: 648663 1 Milliliter(s ) Inj 10/03/2011 10/03/2011 Inactive Synthroid 50 mcg tablet RxNorm: 654602 1 Tablet(s) PO daily 03/08/2012 Inactive Byetta 10 mcg/0.04 mL per dose Sub-Q Pen Injector RxNorm: 373038 10 Microgram(s) SQ BID 08/29/2011 09/21/2012 Inactive metformin ER 500 mg tablet,extended release 24 hr RxNorm: 716352 2 Tablet(s) PO BID 08/15/2011 02/10/2012 Inactive cyanocobalamin (vitamin B-12) 1,000 mcg/mL Injection RxNorm: 954133 1 Milliliter(s ) Inj 07/28/2011 07/28/2011 Inactive NovoFine 30 Needle RxNorm: 1 Miscellaneous BID 07/28/2011 03/18/2013 Inactive OneTouch Ultra Test strips RxNorm: 1 Miscellaneous BID 201003/18/2013 Inactive guanfacine 1 mg Tab RxNorm: 193257 1 Tablet(s) PO daily 201007/10/2012 Inactive glipizide 10 mg tablet RxNorm: 559509 1 Tablet(s) PO BID 201008/09/2012 Inactive Tenex 1 mg tablet RxNorm: 307055 1 Tablet(s) PO daily 201008/09/2012 Inactive lisinopril 20 mg tablet RxNorm: 338288 1 Tablet(s) PO daily pt 07/04/2011 04/21/2012 Inactive pt may have #90 with year if insurance pays spironolactone 25 mg tablet RxNorm: 318884 1 Tablet(s) PO BID 07/03/2011 07/26/2012 Inactive simvastatin 20 mg Tab RxNorm: 100638 1 Tablet(s) PO QHS 201006/28/2011 Inactive cyanocobalamin (vitamin B-12) 1,000 mcg/mL Injection RxNorm: 742286 Milliliter(s) Inj 06/29/2011 06/29/2011 Inactive simvastatin 20 mg tablet RxNorm: 786790 1 Tablet(s) PO QHS 07/201006/22/2012 Inactive Lopressor 100 mg tablet RxNorm: 526503 1 Tablet(s) PO daily 06/16/2012 Inactive ketorolac 60 mg/2 mL IM RxNorm: 936244 Milliliter(s) IM 201005/23/2011 Inactive cyanocobalamin (vitamin B-12) 1,000 mcg/mL Injection RxNorm: 290690 Milliliter(s) Inj 05/23/2011 05/23/2011 Inactive Influenza Virus Vaccine 0.5 mL RxNorm: IM 04/26/2011 04/26/2011 Inactive Vitamin B-12 1,000 mcg/mL Injection RxNorm: 223505 Milliliter(s) Inj 04/26/2011 04/26/2011 Inactive Lomotil 2.5 mg-0.025 mg tablet RxNorm: 6443124 1 Tablet(s) PO Q8 PRN 04/26/2011 11/27/2013 Inactive atorvastatin 10 mg tablet RxNorm: 418409 1 Tablet(s) PO QHS No Start Date Active multivitamin tablet RxNorm: 1 Tablet(s) PO daily No Start Date Active clopidogrel 75 mg tablet RxNorm: 305476 1 Tablet(s) PO daily No Start Date Active Tricor 145 mg Tab RxNorm: 725427 1 Tablet(s) PO daily No Start Date 02/07/2012 Inactive amiodarone 200 mg tablet RxNorm: 359514 1 Tablet(s) PO daily No Start Date 01/28/2018 Inactive Synthroid 50 mcg Tab RxNorm: 003085 1 Tablet(s) PO daily No Start Date 09/10/2011 Inactive lisinopril 20 mg tablet RxNorm: 871462 1 Tablet(s) PO daily No Start Date 06/18/2012 Inactive Lortab 5 mg-500 mg tablet RxNorm: 585266 1 Tablet(s) PO Q4 PRN q 4hrs prn pain No Start Date 10/01/2012 Inactive Tenex 1 mg Tab RxNorm : 292013 1 Tablet(s) PO daily No Start Date 07/16/2011 Inactive lisinopril 40 mg tablet RxNorm: 108369 Tablet(s) PO No Start Date 05/21/2012 Inactive Voltaren 1 % Topical Gel RxNorm: 377194 TOP as directed No Start Date 11/29/2015 Inactive iron 325 mg (65 mg iron) Tab RxNorm: 655636 1 Tablet(s) PO daily No Start Date 02/22/2015 Inactive Zithromax Z-J Luis 250 mg tablet RxNorm: 895327 Tablet(s) PO UD No Start Date 01/22/2013 Inactive Byetta 10 mcg/0.04 mL per dose Sub-Q Pen Injector RxNorm: 725479 Milliliter(s) SQ BID No Start Date 08/28/2011 Inactive Mouth Sore oral RxNorm : 1399 mucous membrane No Start Date 01/28/2018 Inactive cyanocobalamin (vitamin B-12) 1,000 mcg/mL Injection RxNorm: 364223 1 Milliliter(s ) Inj month No Start Date 11/30/2015 Inactive Tessalon 200 mg capsule RxNorm: 950799 1 Capsule(s) PO TID PRN No Start Date 01/21/2013 Inactive metoprolol succinate ER 100 mg tablet,extended release 24 hr RxNorm: 700412 1 Tablet(s) PO daily No Start Date 2017 Inactive Victoza 2-J Luis 0.6 mg/0.1 mL (18 mg/3 mL) subcutaneous pen injector RxNorm: 238838 1.2 Milligram(s) SQ daily No Start Date Inactive simvastatin 20 mg Tab RxNorm: 640446 1 Tablet(s) PO QHS No Start Date 06/28/2011 Inactive spironolactone 25 mg Tab RxNorm: 118112 1 Tablet(s) PO BID No Start Date 07/02/2011 Inactive Diflucan 150 mg tablet RxNorm: 083459 1 Tablet(s) PO daily No Start Date 04/24/2012 Inactive guanfacine 1 mg Tab RxNorm: 958017 1 Tablet(s) PO daily No Start Date 07/16/2011 Inactive Ativan 1 mg Tab RxNorm : 299470 1/2-1 Tablet(s) PO Q6 PRN 1/2 - 1 tab q 6 hours if needed for anxiety No Start Date 2013 Inactive metformin ER 500 mg 24 hr Tab RxNorm: 116394 2 Tablet(s) PO BID No Start Date 08/14/2011 Inactive warfarin 2 mg tablet RxNorm: 165039 1 Tablet(s) PO daily No Start Date 01/28/2018 Inactive Lopressor 100 mg Tab RxNorm: 117891 1 Tablet(s) PO daily No Start Date 06/26/2011 Inactive glipizide 10 mg Tab RxNorm: 951940 1 Tablet(s) PO BID No Start Date 07/16/2011 Inactive KCL 10 meq RxNorm: PO as directed daily when taking lasix No Start Date 01/22/2013 Inactive lisinopril 20 mg Tab RxNorm: 049939 1 Tablet(s) PO daily No Start Date 07/03/2011 Inactive One Touch Ultra Test Strips RxNorm: 1 Miscellaneous BID No Start Date 07/27/2011 Inactive aspirin 81 mg Tab, Delayed Release RxNorm: 638403 1 Tablet(s) PO daily No Start Date 01/28/2018 Inactive omeprazole 20 mg Cap, delayed release RxNorm: 364227 1 Capsule(s) PO BID No Start Date 12/06/2011 Inactive Lasix 20 mg tablet RxNorm: 606390 Tablet(s) PO as directed daily prn swelling - to take kcl with lasix No Start Date 01/21 Inactive Vitamin D 1,000 unit Tab RxNorm: 896764 1 Tablet(s) PO daily No Start Date 01/28/2018 Inactive niacin 500 mg Tab RxNorm: 015946 1 Tablet(s) PO QHS No Start Date 04/03/2014 Inactive Medication Administered Medication Codes Instructions Start Date Status cyanocobalamin (vit B-12) 1,000 mcg/mL injection solution RxNorm: 760783 1Milliliter 05/07/2018 No longer Active cyanocobalamin (vit B-12) 1,000 mcg/mL injection solution RxNorm: 071485 Milliliter 04/04/2018 No longer Active cyanocobalamin (vit B-12) 1,000 mcg/mL injection solution RxNorm: 356974 1Milliliter 03/04/2018 No longer Active cyanocobalamin (vit B-12) 1,000 mcg/mL injection solution RxNorm: 864611 1Milliliter 01/29/2018 No longer Active cyanocobalamin (vit B-12) 1,000 mcg/mL injection solution RxNorm: 437135 Milliliter 12/18/2017 No longer Active cyanocobalamin (vit B-12) 1,000 mcg/mL injection solution RxNorm: 746595 1Milliliter 11/20/2017 No longer Active cyanocobalamin (vit B-12) 1,000 mcg/mL injection solution RxNorm: 689592 1Milliliter 08/21/2017 No longer Active cyanocobalamin (vit B-12) 1,000 mcg/mL injection solution RxNorm: 769532 1Milliliter 07/18/2017 No longer Active cyanocobalamin (vit B-12) 1,000 mcg/mL injection solution RxNorm: 328862 1Milliliter 06/18/2017 No longer Active Kenalog 40 mg/mL suspension for injection RxNorm: 1541517 1Milliliter 06/18/2017 No longer Active cyanocobalamin (vit B-12) 1,000 mcg/mL injection solution RxNorm: 726581 1Milliliter 05/09/2017 No longer Active cyanocobalamin (vit B-12) 1,000 mcg/mL injection solution RxNorm: 074219 1Milliliter 04/04/2017 No longer Active Kenalog 40 mg/mL suspension for injection RxNorm: 7271919 1Milliliter 02/23/2017 No longer Active cyanocobalamin (vit B-12) 1,000 mcg/mL injection solution RxNorm: 873158 Milliliter 01/23/2017 No longer Active cyanocobalamin (vit B-12) 1,000 mcg/mL injection solution RxNorm: 218928 1Milliliter 11/14/2016 No longer Active Kenalog 40 mg/mL suspension for injection RxNorm: 5094748 1Milliliter 09/07/2016 No longer Active cyanocobalamin (vit B-12) 1,000 mcg/mL injection solution RxNorm: 775980 1Milliliter 08/29/2016 No longer Active cyanocobalamin (vit B-12) 1,000 mcg/mL injection solution RxNorm: 849876 Milliliter 06/12/2016 No longer Active ceftriaxone 500 mg solution for injection RxNorm: 6793005 2Milliliter 05/04/2016 No longer Active cyanocobalamin (vit B-12) 1,000 mcg/mL injection solution RxNorm: 043868 Milliliter 05/04/2016 No longer Active cyanocobalamin (vit B-12) 1,000 mcg/mL injection solution RxNorm: 869019 Milliliter 03/17/2016 No longer Active cyanocobalamin (vit B-12) 1,000 mcg/mL injection solution RxNorm: 527565 1Milliliter 02/15/2016 No longer Active cyanocobalamin (vit B-12) 1,000 mcg/mL injection solution RxNorm: 689803 Milliliter 01/19/2016 No longer Active cyanocobalamin (vit B-12) 1,000 mcg/mL injection solution RxNorm: 056473 1Milliliter 12/07/2015 No longer Active cyanocobalamin (vit B-12) 1,000 mcg/mL injection kit RxNorm : 389692 kit 09/06/2015 No longer Active ceftriaxone 500 mg solution for injection RxNorm: 5367540 09/06/2015 No longer Active ceftriaxone 500 mg solution for injection RxNorm: 1780672 07/05/2015 No longer Active Kenalog 40 mg/mL suspension for injection RxNorm: 2677703 Milliliter 07/05/2015 No longer Active cyanocobalamin (vit B-12) 1,000 mcg/mL injection solution RxNorm: 186262 Milliliter 06/28/2015 No longer Active cyanocobalamin (vit B-12) 1,000 mcg/mL injection solution RxNorm: 759989 Milliliter 05/13/2015 No longer Active cyanocobalamin (vit B-12) 1,000 mcg/mL injection solution RxNorm: 955813 Milliliter 02/23/2015 No longer Active cyanocobalamin (vit B-12) 1,000 mcg/mL injection solution RxNorm: 299356 Milliliter 01/08/2015 No longer Active cyanocobalamin (vit B-12) 1,000 mcg/mL injection solution RxNorm: 423939 Milliliter 12/08/2014 No longer Active cyanocobalamin (vit B-12) 1,000 mcg/mL injection solution RxNorm: 134207 Milliliter 10/26/2014 No longer Active cyanocobalamin (vit B-12) 1,000 mcg/mL injection solution RxNorm: 744799 Milliliter 09/24/2014 No longer Active cyanocobalamin (vit B-12) 1,000 mcg/mL injection solution RxNorm: 211185 Milliliter 08/24/2014 No longer Active cyanocobalamin (vit B-12) 1,000 mcg/mL injection solution RxNorm: 207738 1Milliliter 06/01/2014 No longer Active Kenalog 40 mg/mL suspension for injection RxNorm: 1502642 1Milliliter 05/11/2014 No longer Active cyanocobalamin (vit B-12) 1,000 mcg/mL injection kit RxNorm : 149488 Milliliter 04/27/2014 No longer Active cyanocobalamin (vit B-12) 1,000 mcg/mL injection kit RxNorm : 599751 1Milliliter 03/24/2014 No longer Active cyanocobalamin (vit B-12) 1,000 mcg/mL injection solution RxNorm: 868430 1Milliliter 03/24/2014 No longer Active cyanocobalamin (vit B-12) 1,000 mcg/mL injection solution RxNorm: 333822 1Milliliter 02/24/2014 No longer Active cyanocobalamin (vit B-12) 1,000 mcg/mL injection solution RxNorm: 922349 Milliliter 01/09/2014 No longer Active cyanocobalamin (vit B-12) 1,000 mcg/mL injection solution RxNorm: 729671 1Milliliter 11/27/2013 No longer Active Vitamin B-12 1,000 mcg/mL injection solution RxNorm: 581266 1Milliliter 09/18/2013 No longer Active Vitamin B-12 1,000 mcg/mL injection solution RxNorm: 560167 1Milliliter 08/22/2013 No longer Active Vitamin B-12 1,000 mcg/mL injection solution RxNorm: 535004 Milliliter 07/28/2013 No longer Active Vitamin B-12 1,000 mcg/mL injection solution RxNorm: 537982 1Milliliter 05/21/2013 No longer Active Influenza Virus Vaccine 0.5 mL RxNorm: 04/23/2013 No longer Active Vitamin B-12 1,000 mcg/mL Injection RxNorm: 777865 Milliliter 04/23/2013 No longer Active Vitamin B-12 1,000 mcg/mL Injection RxNorm: 032698 1Milliliter 03/24/2013 No longer Active cyanocobalamin (vitamin B-12) 1,000 mcg/mL Injection RxNorm : 906198 Milliliter 02/20/2013 No longer Active Vitamin B-12 1,000 mcg/mL Injection RxNorm: 313432 1Milliliter 01/22/2013 No longer Active cyanocobalamin (vitamin B-12) 1,000 mcg/mL Injection RxNorm : 647858 Milliliter 12/19/2012 No longer Active cyanocobalamin (vitamin B-12) 1,000 mcg/mL Injection RxNorm : 969652 Milliliter 11/20/2012 No longer Active cyanocobalamin (vitamin B-12) 1,000 mcg/mL Injection RxNorm : 519977 1Milliliter 10/23/2012 No longer Active cyanocobalamin (vitamin B-12) 1,000 mcg/mL Injection RxNorm : 220884 Milliliter 09/16/2012 No longer Active Vitamin B-12 1,000 mcg/mL Injection RxNorm: 842357 1Milliliter 08/15/2012 No longer Active Vitamin B-12 1,000 mcg/mL Injection RxNorm: 092305 1Milliliter 07/19/2012 No longer Active Vitamin B-12 1,000 mcg/mL Injection RxNorm: 115107 Milliliter 06/19/2012 No longer Active Vitamin B-12 1,000 mcg/mL Injection RxNorm: 598637 Milliliter 05/22/2012 No longer Active Vitamin B-12 1,000 mcg/mL Injection RxNorm: 593537 Milliliter 04/22/2012 No longer Active Vitamin B-12 1,000 mcg/mL Injection RxNorm: 866518 Milliliter 03/19/2012 No longer Active Vitamin B-12 1,000 mcg/mL Injection RxNorm: 776164 Milliliter 02/15/2012 No longer Active Vitamin B-12 1,000 mcg/mL Injection RxNorm: 285503 Milliliter 01/18/2012 No longer Active Kenalog 40 mg/mL Susp for Injection RxNorm: 6625169 1Milliliter 12/28/2011 No longer Active Vitamin B-12 1,000 mcg/mL Injection RxNorm: 102645 Milliliter 12/20/2011 No longer Active cyanocobalamin (vitamin B-12) 1,000 mcg/mL Injection RxNorm : 061971 1Milliliter 11/07/2011 No longer Active cyanocobalamin (vitamin B-12) 1,000 mcg/mL Injection RxNorm : 458390 1Milliliter 10/03/2011 No longer Active cyanocobalamin (vitamin B-12) 1,000 mcg/mL Injection RxNorm : 660362 1Milliliter 07/28/2011 No longer Active cyanocobalamin (vitamin B-12) 1,000 mcg/mL Injection RxNorm : 433834 Milliliter 06/29/2011 No longer Active cyanocobalamin (vitamin B-12) 1,000 mcg/mL Injection RxNorm : 139914 Milliliter 05/23/2011 No longer Active ketorolac 60 mg/2 mL IM RxNorm: 683144 Milliliter 05/23/2011 No longer Active Influenza Virus Vaccine 0.5 mL RxNorm: 04/26/2011 No longer Active Vitamin B-12 1,000 mcg/mL Injection RxNorm: 241996 Milliliter 04/26/2011 No longer Active Immunizations Vaccine Codes Date Status Influenza CVX: 141 04/04/2018 completed Pneumococcal (Adult) CVX: 133 01/29/2018 completed Influenza CVX: 141 04/25/2017 completed Influenza CVX: 141 04/03/2014 completed Influenza CVX: 141 04/23/2013 completed Influenza CVX: 141 04/22/2012 completed Pneumococcal CVX: 33 01/30/2012 completed Influenza CVX: 141 04/26/2011 completed Assessments Condition Codes Effective Dates Encounter for screening mammogram for malignant neoplasm [...] Visit Reason For Visit Effective Dates Notes diabetes mellitus 05/07/2018 vaccination against influenza 04/04/2018 [...] 28.4 pg 06/07/2017 Cbc With Differential Ord2 [place]% 12.6 % 06/07/2017 Cbc With Differential Ord2 [...] 1.23 K/ul 06/07/2017 Cbc With Differential Ord2 [place] ABS# 0.7 K/ul 06/07/2017 Cbc With Differential Ord2 Eos ABS# 0.2 K/ul 06/07/2017 Cbc With Differential Ord2 Baso ABS# 0.0 K/ul 06/07/2017 Culture Urine [id number] URINE CULTURE SEE NOTES 05/08/2016 Culture Urine [id number] Continued Results 05/08/2016 Urine Culture Ucult Complete >100,000 col/ml aerobic growth sent to ref lab 05/05/2016 IRON TEST [id number] IRON TEST 44 UG/DL 07/28/2013 TSH [id number] TSH 2.104 uIU/ML 07/28/2013 CBC [id number] WBC 6.2 10e9/L 07/28/2013 CBC [id number] RBC 3.95 10e12/L 07/28/2013 CBC [id number] HGB 11.2 g/dL 07/28/2013 CBC [id number] HCT DET 34.2 % 07/28/2013 CBC [id number] MCV 86.6 fL 07/28/2013 CBC [id number] MCH 28.4 pg 07/28/2013 CBC [id number] MCHC 32.7 g/dL 07/28/2013 CBC [id number] PLT 231 10e9/L 07/28/2013 CBC [id number] MPV 10.9 fL 07/28/2013 CBC [id number] JAZMYN % 61.0 % 07/28/2013 CBC [id number] LY % 27.8 % 07/28/2013 CBC [id number] MON % 8.0 % 07/28/2013 CBC [id number] EOS % 2.4 % 07/28/2013 CBC [id number] BASO % 0.8 % 07/28/2013 CBC [id number] RDW 14.0 % 07/28/2013 CBC [id number] ABS JAZMYN 3.78 10e9/L 07/28/2013 CBC [id number] ABS LYMPH 1.72 10e9/L 07/28/2013 CBC [id number] ABS MONO 0.50 10e9/L 07/28/2013 CBC [id number] ABS EOS 0.15 10e9/L 07/28/2013 CBC [id number] ABS BASO 0.05 10e9/L 07/28/2013 CBC [id number] RDW-SD 42.9 fL 07/28/2013 %SAT/TIBC [id number] TIBC 439 UG/DL 07/28/2013 %SAT/TIBC [id number] % SATURAT 10 % 07/28/2013 %SAT/TIBC [id number] UIBC 395 MCG/DL 07/28/2013 Review of Systems [...] Result Effective Dates Notes Full Exam - General 1994 Constitutional general [...] benign 06/18/2017 None Full Exam - General 1995 Ears/Nose/Throat otoscopic exam Tympanic membrane: air- fluid [...] accomodation 07/28/2013 None Full Exam - General 1995 Ears/Nose/Throat otoscopic exam Overall: external auditory canals clear 07/28/2013 None Full Exam - General 1995 Ears/Nose/Throat otoscopic exam Overall: tympanic membranes clear 07/28/2013 None Full Exam - General 1995 Ears/Nose/Throat oral cavity/pharynx/larynx Overall: oral mucosa clear 07/28/2013 None Full Exam - General 1995 Ears/Nose/Throat [...] affect 06/16/2013 None Full Exam - General 1995 Constitutional general appearance Overall: well developed 01/22/2013 None Full Exam - General 1995 Constitutional general appearance Overall: in no acute distress 01/22/2013 None Full Exam - General 1995 Constitutional general appearance Overall: well nourished 01/22/2013 None Full Exam - General 1994 Eyes pupils and irises Overall: pupils equal, round, reactive to light and accomodation 01/22/2013 None Full Exam - General 1995 Respiratory auscultation Overall: breath sounds clear bilaterally [...] sounds 01/22/2013 None Full Exam - General 1994 Abdomen abdominal exam Overall: no tenderness 01/22/2013 None Full Exam - General 1994 Abdomen abdominal exam Overall: normal bowel sounds 01/22/2013 None Full Exam - General 1994 Musculoskeletal head and neck Overall: head atraumatic 01/22/2013 None Full Exam - General 1994 Musculoskeletal head and neck Overall: cervical spine benign 01/22/2013 None Full Exam - General 1994 Neurologic gait Overall: no ataxia, no unsteadiness 01/22/2013 None Full Exam - General 1994 Neurologic cranial nerves Overall: crainial nerves 2 - 12 grossly intact 01/22/2013 None Full Exam - General 1994 [...] leg 01/22/2013 None Full Exam - General 1994 Ears/Nose/Throat oral cavity/pharynx/larynx Overall: oropharyngeal mucosa clear 01/22/2013 None Full Exam - General 1994 Ears/Nose/Throat oral cavity/pharynx/larynx Overall: no masses 01/22/2013 None Full Exam - General 1994 [...] developed 07/04/2012 None Full Exam - General 1994 Constitutional general appearance Overall: in no acute distress 07/04/2012 None Full Exam - General 1994 Constitutional general appearance Overall: well nourished 07/04/2012 [...] decreased 08/23/2011 None Full Exam - General 1994 [...] decreased 04/26/2011 None Procedures Procedure Codes Date THER/PROPH/DIAG INJ SC/IM CPT-4: 42943 05/07/2018 VITAMIN B12 INJECTION CPT-4: J3420 05/07/2018 FLU VAC NO PRSV 4 JINNY 3 YRS+ CPT-4: 96198 04/04/2018 ADMIN INFLUENZA VIRUS VAC CPT-4: G0008 04/04/2018 THER/PROPH/DIAG INJ SC/IM CPT-4: 60676 04/04/2018 VITAMIN B12 INJECTION CPT-4: J3420 04/04/2018 THER/PROPH/DIAG INJ SC/IM CPT-4: 13655 03/04/2018 VITAMIN B12 INJECTION CPT-4: J3420 03/04/2018 PPPS, SUBSEQ VISIT CPT -4: G0439 01/29/2018 ADMIN PNEUMOCOCCAL VACCINE SNOMED CT: 36830278 CPT-4: G0009 01/29/2018 PNEUMOCOCCAL VACC [address]: 54674361 CPT-4: 62927 01/29/2018 THER/PROPH/DIAG INJ SC/IM CPT-4: 98008 01/29/2018 VITAMIN B12 INJECTION CPT-4: J3420 01/29/2018 PRESCRIP TRANSMIT VIA ERX SY CPT-4: G8553 01/01/2018 PRESCRIP TRANSMIT VIA ERX SY CPT-4: G8553 12/27/2017 THER/PROPH/DIAG INJ SC/IM CPT-4: 92540 12/18/2017 VITAMIN B12 INJECTION CPT-4: J3420 12/18/2017 PRESCRIP TRANSMIT VIA ERX SY CPT-4: G8553 12/18/2017 THER/PROPH/DIAG INJ SC/IM CPT-4: 44266 11/20/2017 VITAMIN B12 INJECTION CPT-4: J3420 11/20/2017 THER/PROPH/DIAG INJ SC/IM CPT-4: 88761 08/21/2017 VITAMIN B12 INJECTION CPT-4: J3420 08/21/2017 THER/PROPH/DIAG INJ SC/IM CPT-4: 69338 07/18/2017 VITAMIN B12 INJECTION CPT-4: J3420 07/18/2017 TRIAMCINOLONE ACET INJ NOS CPT-4: J3301 06/18/2017 THER/PROPH/DIAG INJ SC/IM CPT-4: 46246 06/18/2017 VITAMIN B12 INJECTION CPT-4: J3420 06/18/2017 PRESCRIP TRANSMIT VIA ERX SY CPT-4: G8553 06/18/2017 THER/PROPH/DIAG INJ SC/IM CPT-4: 55813 05/09/2017 VITAMIN B12 INJECTION CPT-4: J3420 05/09/2017 ADMIN INFLUENZA VIRUS VAC CPT-4: G0008 04/25/2017 FLU VAC NO PRSV 4 JINNY 3 YRS+ CPT-4: 31640 04/25/2017 THER/PROPH/DIAG INJ SC/IM CPT-4: 19824 04/04/2017 VITAMIN B12 INJECTION CPT-4: J3420 04/04/2017 TRIAMCINOLONE ACET INJ NOS CPT-4: J3301 02/23/2017 VITAMIN B12 INJECTION CPT-4: J3420 02/23/2017 THER/PROPH/DIAG INJ SC/IM CPT-4: 08784 01/23/2017 VITAMIN B12 INJECTION CPT-4: J3420 01/23/2017 VITAMIN B12 INJECTION CPT-4: J3420 12/26/2016 THER/PROPH/DIAG INJ SC/IM CPT-4: 28305 12/26/2016 THER/PROPH/DIAG INJ SC/IM CPT-4: 12576 11/14/2016 VITAMIN B12 INJECTION CPT-4: J3420 11/14/2016 THER/PROPH/DIAG INJ SC/IM CPT-4: 79391 09/07/2016 TRIAMCINOLONE ACET INJ NOS CPT-4: J3301 09/07/2016 PRESCRIP TRANSMIT VIA ERX SY CPT-4: G8553 09/07/2016 THER/PROPH/DIAG INJ SC/IM CPT-4: 35916 08/29/2016 VITAMIN B12 INJECTION CPT-4: J3420 08/29/2016 PRESCRIP TRANSMIT VIA ERX SY CPT-4: G8553 08/29/2016 THER/PROPH/DIAG INJ SC/IM CPT-4: 36761 06/12/2016 VITAMIN B12 INJECTION CPT-4: J3420 06/12/2016 PRESCRIP TRANSMIT VIA ERX SY CPT-4: G8553 06/12/2016 URINALYSIS NONAUTO W/O SCOPE CPT-4: 25538 05/04/2016 ROCEPHIN, PER 250 MG CPT-4: J0696 05/04/2016 THER/PROPH/DIAG INJ SC/IM CPT-4: 09266 05/04/2016 VITAMIN B12 INJECTION CPT-4: J3420 05/04/2016 PRESCRIP TRANSMIT VIA ERX SY CPT-4: G8553 05/04/2016 PRESCRIP TRANSMIT VIA ERX SY CPT-4: G8553 03/30/2016 THER/PROPH/DIAG INJ SC/IM CPT-4: 37515 03/17/2016 VITAMIN B12 INJECTION CPT-4: J3420 03/17/2016 THER/PROPH/DIAG INJ SC/IM CPT-4: 00092 02/15/2016 VITAMIN B12 INJECTION CPT-4: J3420 02/15/2016 THER/PROPH/DIAG INJ SC/IM CPT-4: 59463 01/19/2016 VITAMIN B12 INJECTION CPT-4: J3420 01/19/2016 THER/PROPH/DIAG INJ SC/IM CPT-4: 65619 12/07/2015 VITAMIN B12 INJECTION CPT-4: J3420 12/07/2015 ROCEPHIN, PER 250 MG CPT-4: J0696 09/06/2015 THER/PROPH/DIAG INJ SC/IM CPT-4: 45138 09/06/2015 VITAMIN B12 INJECTION CPT-4: J3420 09/06/2015 PRESCRIP TRANSMIT VIA ERX SY CPT-4: G8553 09/06/2015 ROCEPHIN, PER 250 MG CPT-4: J0696 07/05/2015 TRIAMCINOLONE ACET INJ NOS CPT-4: J3301 07/05/2015 PRESCRIP TRANSMIT VIA ERX SY CPT-4: G8553 07/05/2015 THER/PROPH/DIAG INJ SC/IM CPT-4: 24803 06/28/2015 VITAMIN B12 INJECTION CPT-4: J3420 06/28/2015 THER/PROPH/DIAG INJ SC/IM CPT-4: 12588 05/13/2015 VITAMIN B12 INJECTION CPT-4: J3420 05/13/2015 THER/PROPH/DIAG INJ SC/IM CPT-4: 66424 02/23/2015 VITAMIN B12 INJECTION CPT-4: J3420 02/23/2015 THER/PROPH/DIAG INJ SC/IM CPT-4: 91619 01/08/2015 VITAMIN B12 INJECTION CPT-4: J3420 01/08/2015 THER/PROPH/DIAG INJ SC/IM CPT-4: 22044 12/08/2014 VITAMIN B12 INJECTION CPT-4: J3420 12/08/2014 THER/PROPH/DIAG INJ SC/IM CPT-4: 25489 10/26/2014 VITAMIN B12 INJECTION CPT-4: J3420 10/26/2014 VITAMIN B12 INJECTION CPT-4: J3420 09/24/2014 THER/PROPH/DIAG INJ SC/IM CPT-4: 85598 09/24/2014 THER/PROPH/DIAG INJ SC/IM CPT-4: 89758 08/24/2014 VITAMIN B12 INJECTION CPT-4: J3420 08/24/2014 THER/PROPH/DIAG INJ SC/IM CPT-4: 83191 07/08/2014 VITAMIN B12 INJECTION CPT-4: J3420 07/08/2014 THER/PROPH/DIAG INJ SC/IM CPT-4: 74002 06/01/2014 VITAMIN B12 INJECTION CPT-4: J3420 06/01/2014 TRIAMCINOLONE ACET INJ NOS CPT-4: J3301 05/11/2014 VITAMIN B12 INJECTION CPT-4: J3420 04/27/2014 THER/PROPH/DIAG INJ SC/IM CPT-4: 22829 04/27/2014 FLU VAC NO PRSV 4 JINNY 3 YRS+ CPT-4: 57769 04/03/2014 ADMIN INFLUENZA VIRUS VAC Assigned to/Juliana Graham CPT-4: H9280Osyifed 04/03/2014 THER/PROPH/DIAG INJ SC/IM CPT-4: 46572 03/24/2014 THER/PROPH/DIAG INJ SC/IM CPT-4: 34937 02/24/2014 THER/PROPH/DIAG INJ SC/IM CPT-4: 45558 01/09/2014 THER/PROPH/DIAG INJ SC/IM CPT-4: 33587 11/27/2013 THER/PROPH/DIAG INJ SC/IM CPT-4: 62549 09/18/2013 VITAMIN B12 INJECTION CPT-4: J3420 09/18/2013 THER/PROPH/DIAG INJ SC/IM CPT-4: 60961 08/22/2013 VITAMIN B12 INJECTION CPT-4: J3420 08/22/2013 ROUTINE VENIPUNCTURE CPT-4: 44436 07/28/2013 VITAMIN B12 INJECTION CPT-4: J3420 07/28/2013 THER/PROPH/DIAG INJ SC/IM CPT-4: 23412 07/28/2013 THER/PROPH/DIAG INJ SC/IM CPT-4: 19061 06/16/2013 VITAMIN B12 INJECTION CPT-4: J3420 06/16/2013 THER/PROPH/DIAG INJ SC/IM CPT-4: 31867 05/21/2013 VITAMIN B12 INJECTION CPT-4: J3420 05/21/2013 ADMIN INFLUENZA VIRUS VAC CPT-4: G0008 04/23/2013 FLULAVAL VACC, 3 YRS & >, IM CPT-4: Q2036 04/23/2013 VITAMIN B12 INJECTION CPT-4: J3420 04/23/2013 THER/PROPH/DIAG INJ SC/IM CPT-4: 29964 04/23/2013 THER/PROPH/DIAG INJ SC/IM CPT-4: 76278 03/24/2013 VITAMIN B12 INJECTION CPT-4: J3420 03/24/2013 THER/PROPH/DIAG INJ SC/IM CPT-4: 93502 02/20/2013 VITAMIN B12 INJECTION CPT-4: J3420 02/20/2013 VITAMIN B12 INJECTION CPT-4: J3420 01/22/2013 PRESCRIP TRANSMIT VIA ERX SY CPT-4: G8553 01/22/2013 TRIAMCINOLONE ACET INJ NOS CPT-4: J3301 12/19/2012 VITAMIN B12 INJECTION CPT-4: J3420 12/19/2012 THER/PROPH/DIAG INJ SC/IM CPT-4: 72740 11/20/2012 VITAMIN B12 INJECTION CPT-4: J3420 11/20/2012 THER/PROPH/DIAG INJ SC/IM CPT-4: 14095 10/23/2012 VITAMIN B12 INJECTION CPT-4: J3420 10/23/2012 THER/PROPH/DIAG INJ SC/IM CPT-4: 00273 09/16/2012 VITAMIN B12 INJECTION CPT-4: J3420 09/16/2012 VITAMIN B12 INJECTION CPT-4: J3420 08/15/2012 THER/PROPH/DIAG INJ SC/IM CPT-4: 11075 08/15/2012 TRIAMCINOLONE ACET INJ NOS CPT-4: J3301 08/06/2012 THER/PROPH/DIAG INJ SC/IM CPT-4: 43094 08/06/2012 PRESCRIP TRANSMIT VIA ERX SY CPT-4: G8553 08/06/2012 VITAMIN B12 INJECTION CPT-4: J3420 07/19/2012 THER/PROPH/DIAG INJ SC/IM CPT-4: 31546 07/19/2012 DRAIN/INJECT JOINT/BURSA CPT-4: 30767 07/10/2012 THER/PROPH/DIAG INJ SC/IM CPT-4: 40018 06/19/2012 VITAMIN B12 INJECTION CPT-4: J3420 06/19/2012 VITAMIN B12 INJECTION CPT-4: J3420 05/22/2012 THER/PROPH/DIAG INJ SC/IM CPT-4: 68295 05/22/2012 ADMIN INFLUENZA VIRUS VAC CPT-4: G0008 04/22/2012 FLULAVAL VACC, 3 YRS & >, IM CPT-4: Q2036 04/22/2012 VITAMIN B12 INJECTION CPT-4: J3420 04/22/2012 VITAMIN B12 INJECTION CPT-4: J3420 03/19/2012 THER/PROPH/DIAG INJ SC/IM CPT-4: 75148 03/19/2012 VITAMIN B12 INJECTION CPT-4: J3420 02/15/2012 THER/PROPH/DIAG INJ SC/IM CPT-4: 17610 02/15/2012 THER/PROPH/DIAG INJ SC/IM CPT-4: 10346 01/18/2012 VITAMIN B12 INJECTION CPT-4: J3420 01/18/2012 TRIAMCINOLONE ACET INJ NOS CPT-4: J3301 12/28/2011 DRAIN/INJECT JOINT/BURSA CPT-4: 31804 12/28/2011 VITAMIN B12 INJECTION CPT-4: J3420 12/20/2011 THER/PROPH/DIAG INJ SC/IM CPT-4: 10968 12/20/2011 VITAMIN B12 INJECTION CPT-4: J3420 11/07/2011 THER/PROPH/DIAG INJ SC/IM CPT-4: 11603 11/07/2011 VITAMIN B12 INJECTION CPT-4: J3420 10/03/2011 THER/PROPH/DIAG INJ SC/IM CPT-4: 93882 10/03/2011 TRIAMCINOLONE ACET INJ NOS CPT-4: J3301 08/23/2011 DRAIN/INJECT JOINT/BURSA CPT-4: 44772 08/23/2011 THER/PROPH/DIAG INJ SC/IM CPT-4: 54882 08/23/2011 VITAMIN B12 INJECTION CPT-4: J3420 08/23/2011 VITAMIN B12 INJECTION CPT-4: J3420 07/28/2011 THER/PROPH/DIAG INJ SC/IM CPT-4: 07818 07/28/2011 VITAMIN B12 INJECTION CPT-4: J3420 06/29/2011 THER/PROPH/DIAG INJ SC/IM CPT-4: 29810 06/29/2011 KETOROLAC TROMETHAMINE INJ CPT-4: J1885 05/23/2011 VITAMIN B12 INJECTION CPT-4: J3420 05/23/2011 THER/PROPH/DIAG INJ SC/IM CPT-4: 88993 05/23/2011 ADMIN INFLUENZA VIRUS VAC CPT-4: G0008 04/26/2011 FLULAVAL VACC, 3 YRS & >, IM CPT-4: Q2036 04/26/2011 VITAMIN B12 INJECTION CPT-4: J3420 04/26/2011 THER/PROPH/DIAG INJ SC/IM CPT-4: 98253 04/26/2011 Vital Signs Date Vital 05/07/2018 Blood Pressure 1: 130/60 Code : 8480-6 BMI: 35.5 Code : 97888-0 Heart Rate 1 : 60 bpm Height: 5'6" SpO2: 97% Weight: 220 lbs 01/29/2018 Blood Pressure 1: 150/80 Code : 8480-6 BMI: 35.5 Code : 60637-1 Heart Rate 1 : 68 bpm Height: 5'6" SpO2: 97% Waist Measure (cm): 109 cm Weight: 220 lbs 01/01/2018 Blood Pressure 1: 136/68 Code : 8480-6 BMI: 35.2 Code : 58578-5 Heart Rate 1 : 60 bpm Height: 5'6" Respiratory Rate: 16 bpm SpO2: 98% Weight: 218 lbs 12/27/2017 Height: Weight: 12/18/2017 Blood Pressure 1: 118/62 Code : 8480-6 BMI: 36.2 Code : 38030-4 Heart Rate 1 : 45 bpm Height: 5'6" SpO2: 98% Weight: 224 lbs 12/13/2017 Blood Pressure 1: 138/88 Code : 8480-6 Heart Rate 1: 92 bpm Height: SpO2: 98% Weight: 06/18/2017 Blood Pressure 1: 134/68 Code : 8480-6 BMI: 35.8 Code : 87651-7 Heart Rate 1 : 50 bpm Height: 5'6" SpO2: 98% Weight: 222 lbs 06/07/2017 Blood Pressure 1: 146/68 Code : 8480-6 BMI: 35.3 Code : 97492-2 Heart Rate 1 : 63 bpm Height: 5'6" SpO2: 99% Weight: 218 lbs 8 oz 04/16/2017 Blood Pressure 1: 130/62 Code : 8480-6 BMI: 34.7 Code : 74363-6 Heart Rate 1 : 51 bpm Height: 5'6" SpO2: 94% Weight: 215 lbs 02/23/2017 Blood Pressure 1: 136/64 Code : 8480-6 BMI: 35.0 Code : 74772-6 Heart Rate 1 : 54 bpm Height: 5'6" SpO2: 96% Weight: 217 lbs 12/26/2016 Blood Pressure 1: 144/74 Code : 8480-6 BMI: 34.5 Code : 08934-6 Heart Rate 1 : 60 bpm Height: 5'6" SpO2: 97% Weight: 214 lbs 09/07/2016 Blood Pressure 1: 138/62 Code : 8480-6 Heart Rate 1: 86 bpm SpO2: 96% Temperature: 36.8 (C) / 98.2 (F) Weight: 207 lbs 08/29/2016 Blood Pressure 1: 132/58 Code : 8480-6 BMI: 33.9 Code : 86615-5 Heart Rate 1 : 55 bpm Height: 5'6" SpO2: 98% Weight: 210 lbs 06/12/2016 Blood Pressure 1: 128/76 Code : 8480-6 BMI: 33.2 Code : 57633-3 Heart Rate 1 : 57 bpm Height: 5'6" SpO2: 97% Weight: 206 lbs 05/04/2016 Blood Pressure 1: 130/72 Code : 8480-6 BMI: 33.9 Code : 82045-0 Heart Rate 1 : 74 bpm Height: 5'6" SpO2: 96% Temperature: 36.9 (C) / 98.5 (F) Weight: 210 lbs 03/30/2016 Blood Pressure 1: 116/66 Code : 8480-6 BMI: 34.3 Code : 79160-9 Heart Rate 1 : 67 bpm Height: 5'6" SpO2: 98% Weight: 212 lbs 8 oz 11/30/2015 Blood Pressure 1: 138/64 Code : 8480-6 BMI: 35.2 Code : 62652-8 Heart Rate 1 : 59 bpm Height: 5'6" SpO2: 98% Weight: 218 lbs 09/06/2015 Blood Pressure 1: 138/668 Code: 8480-6 BMI: 35.3 Code: 39804-6 Heart Rate 1: 68 bpm Height: 5'6" Weight: 219 lbs 08/04/2015 Blood Pressure 1: 140/82 Code : 8480-6 Heart Rate 1: 62 bpm SpO2: 98% Weight: 220 lbs 07/05/2015 Blood Pressure 1: 122/80 Code : 8480-6 BMI: 36.0 Code : 94712-0 Heart Rate 1 : 63 bpm Height: 5'6" SpO2: 97% Temperature: 36.3 (C) / 97.3 (F) Weight: 223 lbs 06/28/2015 Blood Pressure 1: 150/74 Code : 8480-6 BMI: 36.3 Code : 08647-3 Heart Rate 1 : 65 bpm Height: 5'6" SpO2: 96% Weight: 225 lbs 02/23/2015 Blood Pressure 1: 142/64 Code : 8480-6 BMI: 37.0 Code : 98686-6 Heart Rate 1 : 56 bpm Height: 5'6" SpO2: 96% Weight: 229 lbs 01/08/2015 Blood Pressure 1: 128/88 Code : 8480-6 BMI: 37.3 Code : 35801-8 Heart Rate 1 : 74 bpm Height: 5'6" Weight: 231 lbs 09/24/2014 Blood Pressure 1: 128/70 Code : 8480-6 BMI: 36.8 Code : 16858-7 Heart Rate 1 : 68 bpm Height: 5'6" SpO2: 96% Weight: 228 lbs 05/11/2014 Blood Pressure 1: 148/82 Code : 8480-6 Height: Temperature: 36.2 (C) / 97.2 (F) Weight: 05/01/2014 Blood Pressure 1: 128/68 Code : 8480-6 BMI: 36.6 Code : 91656-1 Heart Rate 1 : 74 bpm Height: 5'6" Weight: 227 lbs 04/03/2014 Blood Pressure 1: 130/72 Code : 8480-6 BMI: 36.8 Code : 30626-0 Heart Rate 1 : 76 bpm Height: 5'6" Weight: 228 lbs 11/24/2013 Blood Pressure 1: 146/64 Code : 8480-6 BMI: 35.5 Code : 38221-1 Heart Rate 1 : 64 bpm Height: 5'6" Weight: 220 lbs 08/22/2013 Weight: 223 lbs 07/28/2013 Blood Pressure 1: 112/68 Code : 8480-6 BMI: 36.2 Code : 99239-0 Heart Rate 1 : 80 bpm Height: 5'6" Weight: 224 lbs 06/16/2013 Blood Pressure 1: 132/60 Code : 8480-6 BMI: 37.6 Code : 41772-5 Heart Rate 1 : 72 bpm Height: 5'6" Weight: 233 lbs 01/22/2013 Blood Pressure 1: 130/64 Code : 8480-6 BMI: 37.3 Code : 23511-7 Heart Rate 1 : 80 bpm Height: 5'6" Weight: 231 lbs 10/02/2012 Blood Pressure 1: 146/90 Code : 8480-6 BMI: 36.8 Code : 95949-5 Heart Rate 1 : 60 bpm Height: [...] Code : 8480-6 BMI: 37.1 Code : 47617-8 Heart Rate 1 : 60 bpm Height: 5'6" Respiratory Rate: 16 bpm Weight: 230 lbs 12/20/2011 Blood Pressure 1: 142/66 Code : 8480-6 BMI: 35.8 Code : 13314-2 Heart Rate 1 : 66 bpm Height: [...] Code : 8480-6 BMI: 36.2 Code : 49010-2 Heart Rate 1 : 64 bpm Height: 5'6" Respiratory Rate: 16 bpm Weight: 224 lbs 8 oz Functional Status No Functional Status data History of Present Illness Symptom Name Status Result Effective Date Notes diabetes mellitus Onset of Symptom onset as [...] knee pain Quality intermittent 06/28/2015 seeing Kevin gets [facility] hypertension Blood Pressure Values patient checking [...] None knee pain Quality intermittent 02/23/2015 seeing [facility] diabetes mellitus Test results HgbA1c level 7.6 [...] lesion Location on the right cheek 01/22/2013 confucianist area edema Quality painful 01/22/2013 None edema [...] Alleviating Factors medication 12/28/2011 pt states that advil "takes the edge off" sciatica Quality constant [...] data Encounters Encounter Performer Location Codes Date ([id number]) 28576 EST. PATIENT, LEVEL IV Diagnosis: Type 2 diabetes mellitus without complications[ICD10: E11.9] Diagnosis: Chronic kidney disease, stage 3 (moderate)[ICD10: N18.3] Diagnosis: Essential (primary) hypertension[ICD10: I10] Diagnosis: Other vitamin B12 deficiency anemias[ICD10: D51.8] [facility] CPT-4: 28508 05/07/2018 ([id number]) 09634 EST. PATIENT, LEVEL IV Diagnosis: Type 2 diabetes mellitus without complications[ICD10: E11.9] Diagnosis: Essential (primary) hypertension[ICD10: I10] Diagnosis: Chronic atrial fibrillation[ICD10: I48.2] [facility] CPT-4: 84967 01/01/2018 ([id number]) 33228 EST. 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 PATIENT, LEVEL IV Diagnosis: Type 2 diabetes mellitus with hyperglycemia[ICD10: E11.65] Diagnosis: Essential (primary) hypertension[ICD10: I10] Diagnosis: Pain in left knee[ICD10: M25.562] Diagnosis: Other vitamin B12 deficiency anemias[ICD10: D51.8] Daisy Garcia MD [facility] CPT-4: 75888 12/18/2017 49909 EST. PATIENT, LEVEL III Diagnosis: Pain in left knee[ICD10: M25.562] Yady Garcia MD, [facility] CPT -4: 09401 12/13/2017 ([id number]) 37812 EST. PATIENT, LEVEL IV Diagnosis: Type 2 diabetes mellitus without complications[ICD10: E11.9] Diagnosis: Essential (primary) hypertension[ICD10: I10] Diagnosis: Other vitamin B12 deficiency anemias[ICD10: D51.8] Diagnosis: Allergic rhinitis due to animal (cat) (dog) hair and dander[ICD10: J30.81] Daisy Garcia MD, [facility] CPT-4: 63461 2016 ([id number]) 48035 EST. 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 PATIENT, LEVEL IV Diagnosis: Type 2 diabetes mellitus without complications[ICD10: E11.9] Diagnosis: Essential (primary) hypertension[ICD10: I10] Diagnosis: Chronic atrial fibrillation[ICD10: I48.2] Daisy Garcia MD, [facility] CPT-4: 70723 04/16/2017 ([id number]) 22369 EST. PATIENT, LEVEL III Diagnosis: Sciatica, left side[ICD10: M54.32] Diagnosis: Sacroiliitis, not elsewhere classified[ICD10: M46.1] Chantell Garcia MD, [facility] CPT-4: 33143 02/23/2017 ([id number]) 05119 EST. PATIENT, LEVEL IV Diagnosis: Type 2 diabetes mellitus without complications[ICD10: E11.9] Diagnosis: Essential (primary) hypertension[ICD10: I10] Daisy Garcia MD, [facility] CPT-4: 60366 12/26/2016 ([id number]) 44129 EST. PATIENT, LEVEL III Diagnosis: Cough[ICD10: R05] Diagnosis: Acute bronchitis, unspecified[ICD10: J20.9] Chantell Garcia MD, [facility] CPT-4: 06618 09/07/2016 ([id number]) 76060 EST. PATIENT, LEVEL IV Diagnosis: Type 2 diabetes mellitus without complications[ICD10: E11.9] Diagnosis: Cough[ICD10: R05] Diagnosis: Acute laryngopharyngitis[ICD10: J06.0] Diagnosis: Acute recurrent maxillary sinusitis[ICD10: J01.01] Daisy Garcia MD, [facility] CPT-4: 60928 08/29/2016 10360 EST. PATIENT, LEVEL IV Diagnosis: Other allergic rhinitis[ICD10: J30.89] Diagnosis: Other vitamin B12 deficiency anemias[ICD10: D51.8] Yady Garcia MD, [facility] CPT-4: 11281 06/12/2016 ([id number]) 67941 EST. PATIENT, LEVEL III Diagnosis: Urinary tract infection, site not specified[ICD10: N39.0] Diagnosis: Fever, unspecified[ICD10: R50.9] Diagnosis: Other vitamin B12 deficiency anemias[ICD10: D51.8] Chatnell Garcia MD, [facility] CPT-4: 88193 05/04/2016 ([id number]) 69922 EST. 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 PATIENT, LEVEL IV Diagnosis: Type 2 diabetes mellitus with hyperglycemia[ICD10: E11.65] Diagnosis: Essential (primary) hypertension[ICD10: I10] Daisy Garcia MD, [facility] CPT-4: 84876 11/30/2015 ([id number]) 08327 EST. PATIENT, LEVEL III Diagnosis: Acute recurrent maxillary sinusitis[ICD10: J01.01] Diagnosis: Unspecified acute conjunctivitis, right eye[ICD10: H10.31] Diagnosis: Vitamin B12 deficiency anemia, unspecified[ICD10: D51.9] Chantell Garcia MD , [facility] CPT-4: 70291 09/06/2015 [id number] EST. PATIENT, LEVEL III Diagnosis: Pain in right knee[ICD10: M25.561] Diagnosis: Essential (primary) hypertension[ICD10: I10] Diagnosis: Vitamin B12 deficiency anemia, unspecified[ICD10: D51.9] Yady Garcia MD, [facility] CPT-4: 97711 08/04/2015 ([id number]) 27023 EST. PATIENT, LEVEL III Diagnosis: Streptococcal pharyngitis[ICD10: J02.0] Diagnosis: Acute recurrent maxillary sinusitis[ICD10: J01.01] Chantell Garcia MD, [facility] CPT-4: 24477 07/05/2015 ([id number]) 95659 EST. PATIENT, LEVEL IV Diagnosis: Type 2 diabetes mellitus with hyperglycemia[ICD10: E11.65] Diagnosis: Essential (primary) hypertension[ICD10: I10] Diagnosis: Vitamin B12 deficiency anemia, unspecified[ICD10: D51.9] Daisy Garcia MD, [facility] CPT-4: 40218 06/28/2015 ([id number]) 78302 EST. PATIENT, LEVEL IV Diagnosis: DM W/O COMPLICATION TYPE II, UNCONTROLLED[ICD9: 250.02] Diagnosis: ESSENTIAL HYPERTENSION[ICD9: 401.9] Diagnosis: Iron deficiency[ICD9: 280.9] Diagnosis: OTH SCREENING MAMMOGRAM[ICD9: V76.12] Diagnosis: B12 deficiency[ICD9: 266.2] Daisy Garcia MD, [facility] CPT- 4: 77603 02/23/2015 ([id number]) 19574 EST. PATIENT, LEVEL IV Diagnosis: DM W/O COMPLICATION TYPE II, UNCONTROLLED[ICD9: 250.02] Diagnosis: ESSENTIAL HYPERTENSION[ICD9: 401.9] Diagnosis: Right knee pain[ICD9: 719.46] Diagnosis: B12 deficiency[ICD9: 266.2] Chantell Garcia MD, [facility] CPT-4: 78276 01/08/2015 ([id number]) 14064 EST. PATIENT, LEVEL IV Diagnosis: DM W/O COMPLICATION TYPE II, UNCONTROLLED[ICD9: 250.02] Diagnosis: ESSENTIAL HYPERTENSION[ICD9: 401.9] Diagnosis: Iron deficiency[ICD9: 280.9] Daisy Garcia MD, [facility] CPT- 4: 67266 09/24/2014 ([id number]) 75032 EST. PATIENT, LEVEL III Diagnosis: Sacroiliitis[ICD9: 720.2] Diagnosis: Left sided sciatica[ICD9: 724.3] Chantell Garcia MD, [facility] CPT-4: 00814 05/11/2014 ([id number]) 54051 EST. PATIENT, LEVEL III Diagnosis: CELLULITIS OF BUTTOCK[ICD9: 682.5] Daisy Garcia MD, [facility] CPT-4: 01248 05/01/2014 [id number] EST. PATIENT, LEVEL IV Diagnosis: ESSENTIAL HYPERTENSION[ICD9: 401.9] Diagnosis: DIABETES TYPE II[ICD9: 250.00] Diagnosis: Iron deficiency[ICD9: 280.9] Diagnosis: LUMBAGO[ICD9: 724.2] Daisy Garcia MD, [facility] CPT-4: 39036 04/03/2014 ([id number]) 55763 EST. PATIENT, LEVEL IV Diagnosis: ESSENTIAL HYPERTENSION[SNOMED: 46951529] Diagnosis: DIABETES TYPE II[SNOMED: 872326063] Diagnosis: ANEMIA[ICD9: 285.9] Diagnosis: Iron deficiency[ICD9: 280.9] Daisy Garcia MD, [facility] CPT- 4: 87254 11/24/2013 ([id number]) 49991 EST. PATIENT, LEVEL IV Diagnosis: ESSENTIAL HYPERTENSION[SNOMED: 05618214] Diagnosis: DIABETES TYPE II[SNOMED: 671955138] Diagnosis: EDEMA[ICD9: 782.3] Daisy Garcia MD, [facility] CPT-4: 03416 07/28/2013 ([id number]) 80382 EST. PATIENT, LEVEL IV Diagnosis: ESSENTIAL HYPERTENSION[SNOMED: 06701999] Diagnosis: DIABETES TYPE II[SNOMED: 449970395] Diagnosis: EDEMA[ICD9: 782.3] Diagnosis: B-COMPLEX DEFIC NEC[ICD9: 266.2] Daisy Garcia MD, [facility] CPT-4: 19079 06/16/2013 ([id number]) 74361 EST. PATIENT, LEVEL IV Diagnosis: ESSENTIAL HYPERTENSION[SNOMED: 45667227] Diagnosis: DIABETES TYPE II[SNOMED: 287558674] Diagnosis: EDEMA[ICD9: 782.3] Diagnosis: B-COMPLEX DEFIC NEC[ICD9: 266.2] Daisy Garcia MD, [facility] CPT-4: [address] 01/22/2013 ([id number]) 87278 EST. PATIENT, LEVEL III Diagnosis: Lumbago[ICD9: 724.2] Diagnosis: Sacroiliitis[ICD9: 720.2] Diagnosis: ESSENTIAL HYPERTENSION[SNOMED: 38481757] Daisy Garcia MD, [facility] CPT-4: 46196 10/02/2012 ([id number]) 03684 EST. PATIENT, LEVEL III Diagnosis: ACUTE URI[ICD9: 465.9] Daisy Garcia MD [facility] CPT-4: 12063 08/06/2012 ([id number]) 71307 EST. PATIENT, LEVEL IV Diagnosis: ESSENTIAL HYPERTENSION[SNOMED: 80926236] Diagnosis: DIABETES TYPE II[SNOMED: 797218826] Diagnosis: ANEMIA[ICD9: 285.9] Daisy Garcia MD, [facility] CPT-4: 03113 07/04/2012 ([id number]) 38269 EST. 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 PATIENT, LEVEL III Diagnosis: Sciatica of right side[ICD9: 724.3] Diagnosis: Sacroiliitis[ICD9: 720.2] [facility] CPT-4: 16950 12/28/2011 ([id number]) 06691 EST. PATIENT, LEVEL IV Diagnosis: DIABETES TYPE II[SNOMED: 318490125] Diagnosis: ESSENTIAL HYPERTENSION[SNOMED: 93231269] Daisy Garcia MD, [facility] CPT-4: 73404 12/20/2011 ([id number]) 77052 EST. PATIENT, LEVEL IV Diagnosis: ESSENTIAL HYPERTENSION[SNOMED: 98857282] Diagnosis: DIABETES TYPE II[SNOMED: 685276935] Diagnosis: PAIN IN LIMB[ICD9: 729.5] Diagnosis: LUMBAGO[ICD9: 724.2] Diagnosis: Sacroiliitis[ICD9: 720.2] Daisy Garcia MD, [facility] CPT-4: 53457 08/23/2011 [id number] EST. 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 PATIENT, LEVEL IV Diagnosis: DIABETES TYPE II[SNOMED: 219541766] Diagnosis: ESSENTIAL HYPERTENSION[SNOMED: 84556519] Diagnosis: Feces incontinence[ICD9: 787.60] [facility] CPT-4: 77705 04/26/2011 Plan of Care Planned Activity Notes Codes Status Date Appointment: Yady Harper WPtel: [address] [place], [place] [id number] (15 min) Moderate 05/29/2018 Patient Education: Patient [...] at home. 01/01/2018 Appointment: Daisy Garcia WPtel: [facility] (15 min) Moderate 01/01/2018 Patient Education: Patient Medication Summary Completed 01/01/2018 Visit Plan: Apthous ulcer of mouth/mouth pain - I have recommended pt to start on magic mouth wash a 1:1:1 solution of carafate, nystatin, and benadryl for 5mL swish and swallow qid x 10 days - I have called this rx to [facility]. Rx for acyclovir sent to [facility] as well. Glenda is to call if the symptoms do not improve over the weekend. 12/27/2017 Appointment: Daisy Garcia [facility]el[facility] (15 min) Moderate 12/27/2017 Patient Education: Patient [...] in clinic. 12/18/2017 Appointment: Daisy Garcia WPtel: [facility] (15 min) Moderate 12/18/2017 Patient Education: Patient Medication Summary Completed 12/18/2017 Care Plan: COMPLETE CBC AUTOMATED LOINC : 52110-2 Pending 12/18/2017 Visit Plan: Left knee pain - will have pt use RICE - Rest, Ice, Compression, Elevation - will order x-ray - The pt is to use prn antiinflammatories to manage acute pain. The patient is to call the office if the pain is worsening or does not improve. 12/13/2017 Appointment: Yady Harper [facility]el[facility] (30 min) Complex 12/13/2017 Patient Education: Patient Medication Summary Completed 12/13/2017 Care Plan: X-RAY EXAM OF KNEE 3 LOINC : 66571-6 Pending 12/13/2017 Appointment: Injection 11/20/2017 Patient Education: Patient Medication Summary Completed 11/20/2017 Appointment: Daisy Garcia WPtel: [facility] [place] (15 min) Moderate 09/18/2017 Appointment: Injection 08/21/2017 [...] shot today. 06/18/2017 Appointment: Daisy Garcia WPtel: [phone] [facility] (15 min) Moderate 06/18/2017 Patient Education: Patient [...] 5 days 06/07/2017 Appointment: Daisy [phone] (15 min) Moderate 06/07/2017 Patient Education: Patient Medication Summary Completed 06/07/2017 Patient Education: Obesity Completed 06/07/2017 Appointment: Injection 05/09/2017 Patient Education: Patient Medication Summary Completed 05/09/2017 Appointment: Daisy [facility]el[phone] (15 min) Moderate 04/26/2017 Patient Education: Patient [...] continue with eliquis and cardizem 04/16/2017 [place]oint[place]: [place] [facility] [place] (15 min) Moderate 04/16/2017 Appointment: Daisy Garcia [facility]el: [facility] [place] (15 min) Moderate 04/16/2017 Patient Education: Patient [...] controlled. 12/26/2016 Appointment: Daisy Garcia WPtel: [address] [facility] (15 min) Moderate 12/26/2016 Patient Education: Patient Medication Summary Completed 12/26/2016 Appointment: Injection 11/14/2016 Patient Education: Patient Medication Summary Completed 11/14/2016 Visit Plan: Bronchitis - acute case of bronchitis identified. Pt has been given antibiotics, breathing treatments as appropriate, and pt has been instructed to call if symptoms are not improved, or if symptoms acutely worsen. 09/07/2016 Appointment: [facility]antell Singh [facility] [place] (30 min) Complex 09/07/2016 Patient Education: Patient [...] show improvement. 08/29/2016 Appointment: Daisy Garcia WPtel: [phone] [facility] (15 min) Moderate 08/29/2016 Patient Education: Patient Medication Summary Completed 08/29/2016 Patient Education: Obesity Completed 08/29/2016 Appointment: Daisy Garcia WPtel: [address] [facility] (15 min) Moderate 08/22/2016 Appointment: Daisy Garcia WPtel: [address] [facility] (15 min) Moderate 08/02/2016 Appointment: Chantell Singh WPtel: 1015 [phone] (30 min) Complex 08/02/2016 Visit Plan: Allergies [...] allergy spray. 06/12/2016 Appointment: Yady Harper WPtel: 101[address] [facility]6[address] (15 min) Moderate 06/12/2016 Patient Education: Patient [...] office 05/04/2016 Appointment: Chantell Singh WPtel: [address] [phone] (15 min) Moderate 05/04/2016 Patient Education: Patient [...] triamcinalone cream. 03/30/2016 Appointment: Daisy [facility]el: [phone] (15 min) Moderate 03/30/2016 Patient Education: Patient Medication Summary Completed 03/30/2016 Patient Education: Hypertension Completed 03/30/2016 Appointment: Injection 03/17/2016 Patient Education: Patient Medication Summary Completed 03/17/2016 Appointment: Injection 02/15/2016 Patient Education: Patient Medication Summary Completed 02/15/2016 Appointment: Daisy Garcia [facility]Ptel: [facility] [place] (15 min) Moderate 01/26/2016 Appointment: Injection [...] acute concerns. 11/30/2015 Appointment: Daisy Garcia WPtel: 101 [facility] (15 min) Moderate 11/30/2015 Patient Education: Patient Medication Summary Completed 11/30/2015 Patient Education: Obesity Completed 11/30/2015 Appointment: Daisy Garcia [facility]Ptel: [phone] (15 min) Moderate 10/26/2015 Visit Plan: Sinusitis [...] Patient Medication Summary Completed 07/05/2015 Care Plan: C HERI A SC Pending 07/05/2015 Visit Plan: Diabetes Mellitus - [...] home. 06/28/2015 Appointment: Daisy Garcia WPtel: [phone] (15 min) Moderate 06/28/2015 Patient Education: Patient [...] without resting. 02/23/2015 Appointment: Daisy Garcia WPtel: [facility] Follow up 02/23/2015 Patient Education: Patient Medication Summary Completed 02/23/2015 Patient Education: Hypertension Completed 02/23/2015 Care Plan: SCREENINGMAMMOGRAPHYDIGITAL LOINC : 42144-4 Ordered 02/23/2015 Visit Plan: Depression - uncontrolled [...] Care Plan: COMPLETE CBC AUTOMATED LOINC : 64232-3 Ordered 01/08/2015 Appointment: Injection 12/08/2014 Patient Education: [...] diarrhea. 09/24/2014 Appointment: Daisy Garcia [facility]Ptel: [facility] Follow up 09/24/2014 Patient Education: Patient Medication Summary Completed 09/24/2014 Patient Education: Hypertension Completed 09/24/2014 Appointment: Daisy Garcia [facility]Ptel: [phone] [place] Injection 08/24/2014 Patient Education: Patient Medication [...] warmth, discharge. 05/01/2014 Appointment: Daisy Garcia WPtel: [phone] [facility] [place] Follow up 05/01/2014 Patient Education: Patient Medication Summary Completed 05/01/2014 Appointment: Daisy Garcia [facility]Ptel: [phone] [place] Injection 04/27/2014 Patient Education: Patient Medication [...] pain 04/03/2014 Appointment: [facility]ant[facility] Singh [facility]el[facility] Follow up 04/03/2014 Patient Education: Patient Medication Summary Completed 04/03/2014 Patient Education: Hypertension Completed 04/03/2014 Visit Plan: vitamin b12 injection 03/24/2014 Appointment: Daisy Garcia [facility]Ptel: [phone] [place] Injection 03/24/2014 Patient Education: Patient Medication Summary Completed 03/24/2014 Appointment: Daisy Garcia WPtel: 101 [facility] [place] Follow up 03/23/2014 Appointment: Daisy Garcia WPtel: [facility] [facility] [place] Injection 02/24/2014 Patient Education: Patient Medication Summary Completed 02/24/2014 Appointment: Chantell Singh [facility]Ptel: [facility] [place] Injection 01/09/2014 Patient Education: Patient Medication [...] oral supplementation. 11/24/2013 Appointment: Daisy Garcia WPtel: [facility] [place] Follow up 11/24/2013 Patient Education: Patient Medication Summary Completed 11/24/2013 Patient Education: Hypertension Completed 11/24/2013 Appointment: Daisy Garcia WPtel: [facility] [place] Follow up 11/12/2013 Appointment: Daisy Garcia WPtel: [facility] [place] Follow up 10/27/2013 Appointment: Chantell Singh WPtel: [facility] [place] Injection 09/18/2013 Patient Education: Patient Medication Summary Completed 09/18/2013 Appointment: Chantell Singh WPtel: [phone] [facility] [place] Injection 08/22/2013 Patient Education: Patient [...] today 07/28/2013 Appointment: Daisy Garcia [facility]Ptel: [phone] Follow up 07/28/2013 Patient Education: Patient Medication Summary Completed 07/28/2013 Patient Education: Hypertension Completed 07/28/2013 Appointment: Chantell Singh [facility]Ptel: [facility] [facility] [place] Injection 06/20/2013 Visit Plan: Diabetes [...] edema. 06/16/2013 Appointment: Daisy Garcia [facility]Ptel: [phone] [facility] [place] Follow up 06/16/2013 Patient Education: Patient Medication Summary Completed 06/16/2013 Patient Education: Hypertension Completed 06/16/2013 Appointment: Chantell Singh [facility]Ptel: [facility] [facility] [place] Injection 05/21/2013 Patient Education: Patient Medication Summary Completed 05/21/2013 Appointment: Daisy Garcia [facility]Ptel: [phone] [facility] [place] Injection 04/23/2013 Patient Education: Patient Medication Summary Completed 04/23/2013 Appointment: Daisy Garcia WPtel: [facility] [facility] [place] Injection 03/24/2013 Patient Education: Patient Medication Summary Completed 03/24/2013 Appointment: Daisy Garcia WPtel: [phone] [facility] [place] Injection 02/20/2013 Patient Education: Patient Medication [...] peripheral edema. 01/22/2013 Appointment: Daisy Garcia WPtel: [phone] [facility] [place] Follow up 01/22/2013 Patient Education: Patient Medication Summary Completed 01/22/2013 Patient Education: Hypertension Completed 01/22/2013 Appointment: Daisy Garcia [facility]Ptel: [phone] [place] Injection 01/21/2013 Patient Education: Patient Medication Summary Completed 12/19/2012 Appointment: Daisy Garcia WPtel: [address] [facility] [place] Injection 11/22/2012 Appointment: Daisy Garcia WPtel: [facility] [facility] [place] Injection 11/20/2012 Patient Education: Patient Medication Summary Completed 11/20/2012 Appointment: Chantell Singh [facility]Ptel: [facility] [place] Injection 11/08/2012 Appointment: Daisy Garcia [facility]Ptel: [facility] [place] Injection 10/23/2012 Patient Education: Patient Medication [...] Completed 10/02/2012 Appointment: Chantell Singh WPtel: 1015 [phone] Lab Draw 09/16/2012 Patient Education: Patient Medication [...] the office. 08/06/2012 Appointment: Chantell Singh WPtel: [phone] [phone] Sick 08/06/2012 Patient Education: Patient Medication Summary Completed 08/06/2012 Patient Education: Patient Medication Summary Completed 07/19/2012 Visit Plan: Joint Injection - Pt was given post - injection instructions. The pt has been advised to use antiinflammatories post injection today, ice to the injected site, call if redness, warmth, or increased pain occurs at the site of injection. 07/10/2012 Appointment: Daisy Garcia WPtel: [phone] [facility] [place] Injection 07/10/2012 Patient Education: Patient Medication [...] controlled. 07/04/2012 Appointment: Daisy Garcia [facility]Ptel: [phone] Follow up 07/04/2012 Patient Education: Patient Medication Summary Completed 07/04/2012 Patient Education: Hypertension Completed 07/04/2012 Appointment: Daisy Garcia WPtel: [phone] [facility] [place] Injection 06/19/2012 Patient Education: Patient Medication [...] the office. 05/22/2012 Appointment: Chantell Singh WPtel: [facility] Follow up 05/22/2012 Appointment: Chantell Singh WPtel: [facility] Follow up 05/22/2012 Patient Education: Patient Medication [...] the office 04/22/2012 Appointment: Chantell Singh WPtel: 101[address] [phone] Established Patient Preventative visit 04/22/2012 Patient Education: Patient Medication Summary Completed 04/22/2012 Patient Education: High Blood Pressure: Essential Hypertension Completed 2011 Appointment: Chantell Singh [facility]Ptel: [facility] [place] Injection 03/19/2012 Patient Education: Patient Medication Summary Completed 03/19/2012 Appointment: Daisy Garcia [facility]Ptel: [facility] [place] Injection 02/15/2012 Patient Education: Patient Medication Summary Completed 02/15/2012 Appointment: Daisy Garcia [facility]Ptel: [address] [facility] [place] Injection 01/18/2012 Patient Education: Patient Medication [...] worse. 12/28/2011 Appointment: Chantell Singh [facility]Ptel: [facility] [place] Other 12/28/2011 Patient Education: Patient [...] today. 12/20/2011 Appointment: Daisy Garcia WPtel: [address] [facility] [place] Other 12/20/2011 Patient Education: Patient Medication Summary Completed 12/20/2011 Patient Education: High Blood Pressure: Essential Hypertension Completed 2011 Appointment: Chantell Singh [facility]Ptel: [facility] [place] Injection 11/07/2011 Patient Education: Patient Medication Summary Completed 11/07/2011 Appointment: Daisy Garcia [facility]Ptel: [facility] [facility] [place] Injection 10/03/2011 Patient Education: Patient Medication Summary Completed 10/03/2011 Appointment: Daisy Garcia [facility]Ptel: [facility] [facility] [place] Injection 08/28/2011 Visit Plan: Hypertension - [...] left today 08/23/2011 Appointment: Daisy Garcia WPtel: 101[address] [facility]66[facility] Other 08/23/2011 Patient Education: Patient Medication Summary Completed 08/23/2011 Patient Education: High Blood Pressure: Essential Hypertension Completed 2011 Appointment: Chantell Singh WPtel: [facility]6 [place] [phone] [place] Injection 07/28/2011 Patient Education: Patient Medication Summary Completed 07/28/2011 Visit Plan: b12 injection 06/29/2011 Appointment: Chantell Singh WPtel: [facility] [place] [phone] [place] Injection 06/29/2011 Patient Education: Patient Medication [...] injection today in the office 05/23/2011 Appointment: Chantell Singh WPtel: [facility] [address] Other 05/23/2011 Patient Education: Patient Medication Summary [...] DAILY IRON. 04/26/2011 Appointment: Daisy Garcia WPtel: [facility] Other 04/26/2011 Patient Education: Patient Medication Summary [...] is to call for acute concerns. . Sacroilitis with sciatica-discussed natural and expected course of this diagnosis and to alert me if symptoms do not follow expected course, or if any worse. SI joint injection given in the office today for acute pain. Recommended anti-inflammatories and back exercises as previously directed. Instructed patient to call if pain persists, or if any worse. . Cellulitis - continue with oral antibiotics as previously directed, return to clinic as previously directed, call for acute change in symptoms, worsening redness, warmth, discharge. . Hypertension - continue with current medications, [...] if they worsen. . Diabetes Mellitus - controlled - per [...] previous levels of control. check labs today CHECK LABS BEFORE YOUR NEXT APPOINTMENT BRING [...] or other concerns. Patient verbalized understanding. . Hypertension - well controlled - continue [...] use hydrocodone as needed for pain . flu shot today b12 shot today [...] - I have called this rx to [facility]. Rx for acyclovir sent to [facility] as well. Glenda is to call if [...] shot today. Once pt runs out of bymakenzie, she [...] been with great diabetic control on the bymakenzie. Once pt runs out of bymakenzie, she [...] Kenalog injection today in the office. . Allergies - chronic - recommended pt [...] 44% OF THE RECOMMENDED DAILY IRON. . Pharyngitis-Discussed natural and expected course of [...] further attempt to reduce peripheral edema. . Hypertension - well controlled - continue [...] readings at home. B12 shot today. . Hypertension - well controlled - continue [...] in blood pressure readings at home. . Sacroilitis with sciatica-discussed natural and expected [...]
--- OUTSIDE RECORDS SUMMARY | 2018-07-17 07:09 | XMS REPORT | CCD ---
Author Author Daisy [facility] Organization [facility] Address [address] [place] [address] Phone Care Team Providers Care [employer] Specialist Name Role Phone Daisy Garcia PP Unavailable CCM Unavailable Summary Purpose Interface Exchange Insurance Providers Payer name Policy type / Coverage type Covered alliance party ID Effective Begin Date Effective End Date WPS Medicare Part B Medicare Part B [id number] 2018 Unknown [employer] Medicare Part B [id number] 2018 Unknown Family history Sister Diagnosis Age [...] 1 daughter 04/21/[address]: 744990405 Nonsmoker 04/21/[address]: 730124758 Never drinks alcohol 04/21/2011 Has the patient [...] Start Date Stop Date Status Fill Instructions Lexapro 5 mg tablet RxNorm: 392558 TAKE ONE TABLET BY MOUTH EVERY EVENING 05/30/2018 08/22/2019 Active Lomotil 2.5 mg-0.025 mg tablet RxNorm: 8741892 Tablet(s) PO TAKE ONE TABLET BY MOUTH EVERY 8 HOURS NEEDED 05/08/2018 07/06/2018 Active warfarin 2 mg tablet RxNorm: 227796 1 Tablet(s) PO daily 3 days per week, 1/2 Tablet PO 4 days per week- Dr. Andrews manages 05/07/2018 No Stop Date Active cyanocobalamin (vit B-12) 1,000 mcg/mL injection solution RxNorm: 768295 1 Milliliter(s) Inj 05/07/2018 05/07/2018 Inactive Lasix 20 mg tablet RxNorm: 890664 TAKE ONE TABLET BY MOUTH DAILY NEEDED FOR SWELLING. TAKE POTASSIUM WITH EACH DOSE 04/30/2018 08/27/2018 Active Synthroid 50 mcg tablet RxNorm: 975415 TAKE ONE TABLET BY MOUTH EVERY DAY. 04/23/2018 07/16/2019 Active cyanocobalamin (vit B-12) 1,000 mcg/mL injection solution RxNorm: 871014 Milliliter(s) Inj 04/04/2018 04/04/2018 Inactive glipizide 10 mg tablet RxNorm: 612474 Tablet(s) TAKE ONE TABLET BY MOUTH TWICE A DAY 04/03/2018 03/28/2019 Active amlodipine 5 mg tablet RxNorm: 275927 TAKE ONE TABLET BY MOUTH TWICE A DAY 03/12/2018 03/06/2019 Active potassium chloride ER 20 mEq tablet,extended release(part/ cryst) RxNorm: 5174240 TAKE ONE TABLET BY MOUTH DAILY WHEN YOU TAKE LASIX (FUROSEMIDE) 03/12/2018 01/05/2019 Active spironolactone 25 mg tablet RxNorm: 056019 TAKE ONE TABLET BY MOUTH TWICE A DAY 03/11/2018 03/05/2019 Active cyanocobalamin (vit B-12) 1,000 mcg/mL injection solution RxNorm: 798658 1 Milliliter(s) Inj 03/04/2018 03/04/2018 Inactive amiodarone 200 mg tablet RxNorm: 029341 1/2 Tablet(s) PO daily 01/29/2018 No Stop Date Active cyanocobalamin (vit B-12) 1,000 mcg/mL injection solution RxNorm: 944126 1 Milliliter(s) Inj 01/29/2018 01/29/2018 Inactive amlodipine 5 mg tablet RxNorm: 282249 1 Tablet(s) PO QPM 201703/11/2018 Inactive Lexapro 5 mg tablet RxNorm: 491491 1 Tablet(s) PO QPM 201705/29/2018 Inactive warfarin 2 mg tablet RxNorm: 629795 1 Tablet(s) PO daily 4 days per week, 1/2 Tablet PO 3 days per week 01/29/201805/06 Inactive Tenex 1 mg tablet RxNorm: 827412 TAKE ONE TABLET BY MOUTH DAILY 01/21/2018 01/15/2019 Active acyclovir 800 mg tablet RxNorm: 840015 1 Tablet(s) PO TID use if needed for mouth sores 01/01/2018 01/14/2018 Inactive simvastatin 20 mg tablet RxNorm: 332081 TAKE ONE TABLET BY MOUTH EVERY NIGHT AT BEDTIME 12/27/2017 01/28/2018 Inactive acyclovir 800 mg tablet RxNorm: 306373 1 Tablet(s) PO TID 12/2712/31/2017 Inactive metoprolol succinate ER 50 mg tablet,extended release 24 hr RxNorm: 522367 1 Tablet(s) PO daily 12/18/2017 07/15/2018 Active cyanocobalamin (vit B-12) 1,000 mcg/mL injection solution RxNorm: 905492 Milliliter(s) Inj 12/18/2017 12/18/2017 Inactive prednisone 20 mg tablet RxNorm: 107439 1 Tablet(s) PO BID 12/1312/17/2017 Inactive spironolactone 25 mg tablet RxNorm: 552291 TAKE ONE TABLET BY MOUTH TWICE A DAY 12/03/2017 03/02/2018 Inactive hydrocodone 5 mg-acetaminophen 325 mg tablet RxNorm: 738824 1-2 Tablet(s) PO Q4 PRN as needed pain 11/20/2017 No Stop Date Active cyanocobalamin (vit B-12) 1,000 mcg/mL injection solution RxNorm: 467790 1 Milliliter(s) Inj 11/20/2017 11/20/2017 Inactive Lomotil 2.5 mg-0.025 mg tablet RxNorm: 9451197 Tablet(s) PO TAKE ONE TABLET BY MOUTH EVERY 8 HOURS NEEDED 11/07/2017 01/04/2018 Inactive Synthroid 50 mcg tablet RxNorm: 723544 TAKE ONE TABLET BY MOUTH EVERY DAY. 10/16/2017 04/13/2018 Inactive potassium chloride ER 20 mEq tablet,extended release(part/ cryst) RxNorm: 3164722 TAKE ONE TABLET BY MOUTH DAILY WHEN YOU TAKE LASIX (FUROSEMIDE) 09/17/2017 03/11/2018 Inactive Lasix 20 mg tablet RxNorm: 671686 Tablet(s) TAKE ONE TABLET BY MOUTH EVERY DAY NEEDED FOR SWELLING. TAKE POTASSIUM WITH EACH DOSE 201701/07/2018 Inactive glipizide 10 mg tablet RxNorm: 904105 TAKE ONE TABLET BY MOUTH TWICE A DAY 08/28/2017 04/02/2018 Inactive Request already responded to by other means (e.g. phone or fax) glipizide 10 mg tablet RxNorm: 962685 Tablet(s) TAKE ONE TABLET BY MOUTH TWICE A DAY 08/23/2017 08/27/2017 Inactive cyanocobalamin (vit B-12) 1,000 mcg/mL injection solution RxNorm: 567021 1 Milliliter(s) Inj 08/21/2017 08/21/2017 Inactive Synthroid 50 mcg tablet RxNorm: 231766 TAKE ONE TABLET BY MOUTH EVERY DAY. 08/15/2017 10/13/2017 Inactive Tricor 145 mg tablet RxNorm: 747666 TAKE ONE TABLET BY MOUTH DAILY 07/31/2017 11/27/2017 Inactive metformin ER 500 mg tablet,extended release 24 hr RxNorm: 907783 TAKE TWO TABLETS BY MOUTH TWICE A DAY 07/31/20172017 Inactive spironolactone 25 mg tablet RxNorm: 234826 TAKE ONE TABLET BY MOUTH TWICE A DAY 07/31/2017 12/02/2017 Inactive Tenex 1 mg tablet RxNorm: 542154 TAKE ONE TABLET BY MOUTH DAILY 07/20/2017 01/15/2018 Inactive cyanocobalamin (vit B-12) 1,000 mcg/mL injection solution RxNorm: 020452 1 Milliliter(s) Inj 07/18/2017 07/18/2017 Inactive Flonase Allergy Relief 50 mcg/actuation nasal spray, suspension RxNorm: 8260353 1 [place] NASAL BID 06/18/20172017 Inactive Byetta 10 mcg/dose(250 mcg/mL)2.4 mL subcutaneous pen injector RxNorm: 911803 INJECT 10 MCG UNDER THE SKIN TWO TIMES A DAY ( START AFTER 5 MCG DOSE IS COMPLETE ) 06/18/2017 04/13/2018 Inactive potassium chloride ER 20 mEq tablet,extended release(part/ cryst) RxNorm: 9336398 TAKE ONE TABLET BY MOUTH DAILY WHEN YOU TAKE LASIX (FUROSEMIDE) 06/18/2017 09/15/2017 Inactive Kenalog 40 mg/mL suspension for injection RxNorm: 4919328 1 Milliliter(s) Inj 06/18/2017 06/18/2017 Inactive cyanocobalamin (vit B-12) 1,000 mcg/mL injection solution RxNorm: 988373 1 Milliliter(s) Inj 06/18/2017 06/18/2017 Inactive Lasix 20 mg tablet RxNorm: 798301 Tablet(s) TAKE ONE TABLET BY MOUTH EVERY DAY NEEDED FOR SWELLING. TAKE POTASSIUM WITH EACH DOSE 201609/09/2017 Inactive cyanocobalamin (vit B-12) 1,000 mcg/mL injection solution RxNorm: 828238 1 Milliliter(s) Inj 05/09/2017 05/09/2017 Inactive cyanocobalamin (vit B-12) 1,000 mcg/mL injection solution RxNorm: 054838 1 Milliliter(s) Inj 04/04/2017 04/04/2017 Inactive metformin ER 500 mg tablet,extended release 24 hr RxNorm: 371172 TAKE TWO TABLETS BY MOUTH TWICE A DAY 03/01/20172016 Inactive Kenalog 40 mg/mL suspension for injection RxNorm: 3786605 1 Milliliter(s) Inj 02/23/2017 02/23/2017 Inactive amlodipine 5 mg tablet RxNorm: 222171 TAKE ONE TABLET BY MOUTH TWICE A DAY 02/22/2017 11/18/2017 Inactive glipizide 10 mg tablet RxNorm: 460935 TAKE ONE TABLET BY MOUTH TWICE A DAY 02/12/2017 08/10/2017 Inactive cyanocobalamin (vit B-12) 1,000 mcg/mL injection solution RxNorm: 766030 Milliliter(s) Inj 01/23/2017 01/23/2017 Inactive Synthroid 50 mcg tablet RxNorm: 796124 TAKE ONE TABLET BY MOUTH EVERY DAY. 12/21/2016 06/18/2017 Inactive potassium chloride ER 20 mEq tablet,extended release(part/ cryst) RxNorm: 3167517 TAKE ONE TABLET BY MOUTH DAILY WHEN YOU TAKE LASIX (FUROSEMIDE) 12/21/2016 04/19/2017 Inactive Tricor 145 mg tablet RxNorm: 967795 TAKE ONE TABLET BY MOUTH DAILY 12/21/2016 06/06/2017 Inactive Lasix 20 mg tablet RxNorm: 592038 TAKE ONE TABLET BY MOUTH EVERY DAY NEEDED FOR SWELLING. TAKE POTASSIUM WITH EACH DOSE 12/11/2016 04/09/2017 Inactive cyanocobalamin (vit B-12) 1,000 mcg/mL injection solution RxNorm: 642768 1 Milliliter(s) Inj 11/14/2016 11/14/2016 Inactive simvastatin 20 mg tablet RxNorm: 653551 TAKE ONE TABLET BY MOUTH EVERY NIGHT AT BEDTIME 10/23/2016 04/15/2017 Inactive Tenex 1 mg tablet RxNorm: 381143 TAKE ONE TABLET BY MOUTH DAILY 10/16/2016 11/14/2016 Inactive glipizide 10 mg tablet RxNorm: 173279 TAKE ONE TABLET BY MOUTH TWICE A DAY 09/20/2016 02/11/2017 Inactive doxycycline hyclate 100 mg capsule RxNorm: 4544751 1 Capsule(s) PO BID 09/12/2016 09/18/2016 Inactive doxycycline hyclate 100 mg capsule RxNorm: 9499427 1 Capsule(s) PO BID 09/12/2016 09/11/2016 Inactive Phenergan with Codeine Syrup RxNorm: 5-10 Milliliter(s) PO Q6 PRN 09/07/2016 No Stop Date Active prednisone 20 mg tablet RxNorm: 916633 1 Tablet(s) PO BID 09/0709/11/2016 Inactive Kenalog 40 mg/mL suspension for injection RxNorm: 3049994 1 Milliliter(s) Inj 09/07/2016 09/07/2016 Inactive Tessalon Perles 100 mg capsule RxNorm: 727713 1 Capsule(s) PO TID PRN 09/01/2016 09/20/2016 Inactive Zyrtec 10 mg capsule RxNorm: 1161992 1 Capsule(s) PO daily 01/28/2018 Inactive Flonase Allergy Relief 50 mcg/actuation nasal spray, suspension RxNorm: 4582139 1 [place] NASAL BID 08/29/20162016 Inactive cyanocobalamin (vit B-12) 1,000 mcg/mL injection solution RxNorm: 991127 1 Milliliter(s) Inj 08/29/2016 08/29/2016 Inactive metformin ER 500 mg tablet,extended release 24 hr RxNorm: 320044 Tablet(s) TAKE TWO TABLETS BY MOUTH TWICE A DAY 08/28/2016 02/23/2017 Inactive Lopressor 100 mg tablet RxNorm: 264757 TAKE ONE TABLET BY MOUTH DAILY 06/27/2016 04/15/2017 Inactive cetirizine 10 mg tablet RxNorm: 2351202 1 Tablet(s) PO daily 07/11/2016 Inactive Flonase Allergy Relief 50 mcg/actuation nasal spray, suspension RxNorm: 9591775 1 [place] NASAL BID 06/12/20162016 Inactive cyanocobalamin (vit B-12) 1,000 mcg/mL injection solution RxNorm: 236865 Milliliter(s) Inj 06/12/2016 06/12/2016 Inactive spironolactone 25 mg tablet RxNorm: 534406 TAKE ONE TABLET BY MOUTH TWICE A DAY 06/06/2016 03/02/2017 Inactive Request already responded to by other means (e.g. phone or fax) spironolactone 25 mg tablet RxNorm: 216579 Tablet(s) TAKE ONE TABLET BY MOUTH TWICE A DAY 05/29/2016 06/05/2016 Inactive ceftriaxone 500 mg solution for injection RxNorm: 8082965 2 Milliliter(s) Inj 05/04/2016 05/04/2016 Inactive cyanocobalamin (vit B-12) 1,000 mcg/mL injection solution RxNorm: 326283 Milliliter(s) Inj 05/04/2016 05/04/2016 Inactive Cipro 500 mg tablet RxNorm: 223105 1 Tablet(s) PO BID 201505/10/2016 Inactive OneTouch Ultra Test strips RxNorm: TEST DAILY 04/24/2016 04/18/2017 Inactive Byetta 10 mcg/dose(250 mcg/mL)2.4 mL subcutaneous pen injector RxNorm: 999959 INJECT 10 MCG UNDER THE SKIN TWO TIMES A DAY ( START AFTER 5 MCG DOSE IS COMPLETE ) 04/18/2016 03/13/2017 Inactive Lasix 20 mg tablet RxNorm: 687795 TAKE ONE TABLET BY MOUTH EVERY DAY NEEDED FOR SWELLING. TAKE POTASSIUM WITH EACH DOSE 04/07/2016 09/03/2016 Inactive potassium chloride ER 20 mEq tablet,extended release(part/ cryst) RxNorm: 4021519 TAKE ONE TABLET BY MOUTH DAILY WHEN YOU TAKE LASIX (FUROSEMIDE) 04/07/2016 09/03/2016 Inactive triamcinolone acetonide 0.5 % topical cream RxNorm: 1936140 1 Application TOP BID to lesions on buttock 03/30/20162015 Inactive metformin ER 500 mg tablet,extended release 24 hr RxNorm: 017014 TAKE TWO TABLETS BY MOUTH TWICE A DAY 03/23/20162016 Inactive cyanocobalamin (vit B-12) 1,000 mcg/mL injection solution RxNorm: 870552 Milliliter(s) Inj 03/17/2016 03/17/2016 Inactive glipizide 10 mg tablet RxNorm: 107703 TAKE ONE TABLET BY MOUTH TWICE A DAY 03/17/2016 04/02/2018 Inactive Request already responded to by other means (e.g. phone or fax) glipizide 10 mg tablet RxNorm: 576032 Tablet(s) TAKE ONE TABLET BY MOUTH TWICE A DAY 03/13/2016 03/16/2016 Inactive Tricor 145 mg tablet RxNorm: 295453 TAKE ONE TABLET BY MOUTH ONCE A DAY 02/18/2016 02/11/2017 Inactive Request already responded to by other means (e.g. phone or fax) amlodipine 5 mg tablet RxNorm: 007234 TAKE ONE TABLET BY MOUTH TWICE A DAY 02/18/2016 05/06/2018 Inactive Request already responded to by other means (e.g. phone or fax) cyanocobalamin (vit B-12) 1,000 mcg/mL injection solution RxNorm: 119838 1 Milliliter(s) Inj 02/15/2016 02/15/2016 Inactive amlodipine 5 mg tablet RxNorm: 359052 Tablet(s) TAKE ONE TABLET BY MOUTH TWICE A DAY 02/14/2016 02/17/2016 Inactive Tricor 145 mg tablet RxNorm: 738675 1 Tablet(s) PO daily TAKE ONE TABLET BY MOUTH ONCE A DAY 02/14/2016 02/17/2016 Inactive Synthroid 50 mcg tablet RxNorm: 069792 TAKE ONE TABLET BY MOUTH EVERY DAY. 01/31/2016 08/27/2016 Inactive hydrocodone 5 mg-acetaminophen 325 mg tablet RxNorm: 846754 1-2 Tablet(s) PO Q4 PRN as needed pain 01/28/2016 11/19/2017 Inactive cyanocobalamin (vit B-12) 1,000 mcg/mL injection solution RxNorm: 535027 Milliliter(s) Inj 01/19/2016 01/19/2016 Inactive metformin ER 500 mg tablet,extended release 24 hr RxNorm: 026022 TAKE TWO TABLETS BY MOUTH TWICE A DAY 01/18/20162015 Inactive cyanocobalamin (vit B-12) 1,000 mcg/mL injection solution RxNorm: 233428 1 Milliliter(s) Inj 12/07/2015 12/07/2015 Inactive metformin ER 500 mg tablet,extended release 24 hr RxNorm: 781113 TAKE TWO TABLETS BY MOUTH TWICE A DAY 10/18/20152015 Inactive simvastatin 20 mg tablet RxNorm: 149736 1 Tablet(s) PO QHS TAKE ONE TABLET BY MOUTH AT BEDTIME 10/08/2015 10/01/2016 Inactive Tenex 1 mg tablet RxNorm: 455650 TAKE ONE TABLET BY MOUTH DAILY 10/04/2015 09/27/2016 Inactive Lopressor 100 mg tablet RxNorm: 990173 TAKE ONE TABLET BY MOUTH DAILY 09/20/2015 06/15/2016 Inactive Diflucan 150 mg tablet RxNorm: 556430 1 Tablet(s) PO daily 02/201609/12/2015 Inactive cyanocobalamin (vit B-12) 1,000 mcg/mL injection kit RxNorm: 711012 kit Inj 09/06/2015 09/06/2015 Inactive gentamicin 0.3 % eye drops RxNorm: 992755 2 Drop(s) OPH QID 02/201609/12/2015 Inactive ceftriaxone 500 mg solution for injection RxNorm: 3226191 Inj 09/06/2015 09/06/2015 Inactive Keflex 500 mg capsule RxNorm: 481888 1 Capsule(s) PO TID 201509/12/2015 Inactive hydrocodone 5 mg-acetaminophen 325 mg tablet RxNorm: 473038 1-2 Tablet(s) PO Q4 PRN as needed pain 08/09/2015 01/27/2016 Inactive Lortab 5 mg-500 mg tablet RxNorm: 623225 1-2 Tablet(s) PO Q4 PRN as needed pain 08/03/2015 08/08/2015 Inactive Diflucan 150 mg tablet RxNorm: 175444 1 Tablet(s) PO daily 07/16/2015 Inactive Lasix 20 mg tablet RxNorm: 749646 TAKE ONE TABLET BY MOUTH EVERY DAY NEEDED FOR SWELLING. TAKE POTASSIUM WITH EACH DOSE 07/13/2015 01/08/2016 Inactive spironolactone 25 mg tablet RxNorm: 749074 TAKE ONE TABLET BY MOUTH TWICE A DAY 07/13/2015 05/07/2016 Inactive potassium chloride ER 20 mEq tablet,extended release(part/ cryst) RxNorm: 789254 TAKE ONE TABLET BY MOUTH DAILY WHEN YOU TAKE LASIX (FUROSEMIDE) 07/13/2015 01/08/2016 Inactive Tessalon Perles 100 mg capsule RxNorm: 379102 1 Capsule(s) PO TID PRN 07/05/2015 08/31/2016 Inactive Keflex 500 mg capsule RxNorm: 638446 1 Capsule(s) PO TID 201407/14/2015 Inactive Kenalog 40 mg/mL suspension for injection RxNorm: 2699492 Milliliter(s) Inj 07/05/2015 07/05/2015 Inactive ceftriaxone 500 mg solution for injection RxNorm: 7842213 Inj 07/05/2015 07/05/2015 Inactive cyanocobalamin (vit B-12) 1,000 mcg/mL injection solution RxNorm: 001823 Milliliter(s) Inj 06/28/2015 06/28/2015 Inactive Synthroid 50 mcg tablet RxNorm: 821566 TAKE ONE TABLET BY MOUTH EVERY DAY. 06/21/2015 11/17/2015 Inactive metformin ER 500 mg tablet,extended release 24 hr RxNorm: 792953 TAKE TWO TABLETS BY MOUTH TWICE A DAY 06/14/20152015 Inactive glipizide 10 mg tablet RxNorm: 766370 TAKE ONE TABLET BY MOUTH TWICE A DAY 05/31/2015 02/24/2016 Inactive cyanocobalamin (vit B-12) 1,000 mcg/mL injection solution RxNorm: 708629 Milliliter(s) Inj 05/13/2015 05/13/2015 Inactive Tricor 145 mg tablet RxNorm: 375770 1 Tablet(s) PO daily TAKE ONE TABLET BY MOUTH ONCE A DAY 05/07/2015 05/06/2015 Inactive Tricor 145 mg tablet RxNorm: 609900 1 Tablet(s) PO daily TAKE ONE TABLET BY MOUTH ONCE A DAY 05/07/2015 01/31/2016 Inactive Tricor 145 mg tablet RxNorm: 463457 TAKE ONE TABLET BY MOUTH ONCE A DAY 05/06/2015 05/06/2015 Inactive Byetta 10 mcg/dose(250 mcg/mL)2.4 mL subcutaneous pen injector RxNorm: 788486 Microgram(s) SQ 10mcg twice daily ( start after 5mcg dose is complete) 04/01/2015 03/25/2016 Inactive Byetta 5 mcg/dose (250 mcg/mL)1.2 mL subcutaneous pen injector RxNorm: 219029 Microgram(s) SQ 5mcg twice daily x 1 month 03/04/2015 04/02/2015 Inactive Byetta 10 mcg/dose(250 mcg/mL)2.4 mL subcutaneous pen injector RxNorm: 460385 Microgram(s) SQ 10mcg twice daily ( start after 5mcg dose is complete) 03/04/2015 03/31/2015 Inactive Byetta 5 mcg/dose (250 mcg/mL)1.2 mL subcutaneous pen injector RxNorm: 268343 Microgram(s) SQ 5mcg twice daily x 1 month 03/04/2015 03/03/2015 Inactive Byetta 10 mcg/dose(250 mcg/mL)2.4 mL subcutaneous pen injector RxNorm: 704464 Microgram(s) SQ 10mcg twice daily ( start after 5mcg dose is complete) 03/04/2015 03/03/2015 Inactive cyanocobalamin (vit B-12) 1,000 mcg/mL injection solution RxNorm: 899726 Milliliter(s) Inj 02/23/2015 02/23/2015 Inactive cyanocobalamin (vit B-12) 1,000 mcg/mL injection solution RxNorm: 960772 Milliliter(s) Inj 01/08/2015 01/08/2015 Inactive simvastatin 20 mg tablet RxNorm: 240154 TAKE ONE TABLET BY MOUTH AT BEDTIME 01/07/2015 10/03/2015 Inactive Lortab 5 mg-500 mg tablet RxNorm: 764112 1-2 Tablet(s) PO Q4 PRN as needed q 4- 6hrs prn pain 12/15/2014 08/02/2015 Inactive Lortab 5 mg-500 mg tablet RxNorm: 609921 1-2 Tablet(s) PO Q4 PRN as needed q 4- 6hrs prn pain 12/15/2014 08/02/2015 Inactive amlodipine 5 mg tablet RxNorm: 542362 TAKE ONE TABLET BY MOUTH TWICE A DAY 12/14/2014 12/13/2014 Inactive amlodipine 5 mg tablet RxNorm: 720653 TAKE ONE TABLET BY MOUTH TWICE A DAY 12/14/2014 03/13/2015 Inactive cyanocobalamin (vit B-12) 1,000 mcg/mL injection solution RxNorm: 261359 Milliliter(s) Inj 12/08/2014 12/08/2014 Inactive Synthroid 50 mcg tablet RxNorm: 445858 TAKE ONE TABLET BY MOUTH EVERY DAY. 10/29/2014 04/26/2015 Inactive Lasix 20 mg tablet RxNorm: 452144 Tablet(s) TAKE ONE TABLET BY MOUTH EVERY DAY NEEDED FOR SWELLING. TAKE POTASSIUM WITH EACH DOSE 201405/25/2015 Inactive potassium chloride ER 20 mEq tablet,extended release(part/ cryst) RxNorm: 705931 Tablet(s) TAKE ONE TABLET BY MOUTH EVERY DAY WHEN YOU TAKE LASIX (FUROSEMIDE) 10/28/2014 05/25/2015 Inactive cyanocobalamin (vit B-12) 1,000 mcg/mL injection solution RxNorm: 323428 Milliliter(s) Inj 10/26/2014 10/26/2014 Inactive OneTouch Ultra Test strips RxNorm: TEST TWO TIMES A DAY 201405/10/2028 Active OneTouch Ultra Test strips RxNorm: 1 Miscellaneous BID 201410/21/2014 Inactive dx: 250.02 Victoza 2-J Luis 0.6 mg/0.1 mL (18 mg/3 mL) subcutaneous pen injector RxNorm: 308078 1.8 Milligram(s) SQ daily 09/24/201402/22 Inactive cyanocobalamin (vit B-12) 1,000 mcg/mL injection solution RxNorm: 650960 Milliliter(s) Inj 09/24/2014 09/24/2014 Inactive Tenex 1 mg tablet RxNorm: 556213 1 Tablet(s) PO daily TAKE ONE TABLET BY MOUTH EVERY DAY 09/24/2014 10/03/2015 Inactive Lopressor 100 mg tablet RxNorm: 135519 TAKE ONE TABLET BY MOUTH EVERY DAY 09/14/2014 06/10/2015 Inactive Lopressor 100 mg tablet RxNorm: 014136 1 Tablet(s) PO daily TAKE ONE TABLET BY MOUTH EVERY DAY 09/14/2014 09/13/2014 Inactive cyanocobalamin (vit B-12) 1,000 mcg/mL injection solution RxNorm: 752024 Milliliter(s) Inj 08/24/2014 08/24/2014 Inactive [SAVINGS FOR UNINSURED PATIENTS - - BIN:[id number], PCN: ASPROD1, Group: [id number], ID# [id number], Process claim through [employer], for questions: . THIS IS NOT INSURANCE.] Victoza 2-J Luis 0.6 mg/0.1 mL (18 mg/3 mL) subcutaneous pen injector RxNorm: 415672 1.2 Milligram(s) SQ daily 08/05/201409/23 Inactive glipizide 10 mg tablet RxNorm: 065435 TAKE ONE TABLET BY MOUTH TWICE A DAY 07/28/2014 05/23/2015 Inactive Tenex 1 mg tablet RxNorm: 692824 TAKE ONE TABLET BY MOUTH EVERY DAY 07/02/2014 07/01/2014 Inactive Tenex 1 mg tablet RxNorm: 727606 TAKE ONE TABLET BY MOUTH EVERY DAY 07/02/2014 09/23/2014 Inactive spironolactone 25 mg tablet RxNorm: 332174 TAKE ONE TABLET BY MOUTH TWICE A DAY 07/02/2014 04/27/2015 Inactive spironolactone 25 mg tablet RxNorm: 406955 Tablet(s) PO TAKE ONE TABLET BY MOUTH TWICE A DAY 06/30/2014 07/01/2014 Inactive Tenex 1 mg tablet RxNorm: 715183 Tablet(s) PO TAKE ONE TABLET BY MOUTH EVERY DAY 06/30/2014 07/01/2014 Inactive Lortab 5 mg-500 mg tablet RxNorm: 804643 1-2 Tablet(s) PO Q4 PRN as needed q 4- 6hrs prn pain 06/22/2014 12/14/2014 Inactive metformin ER 500 mg tablet,extended release 24 hr RxNorm: 986330 Tablet(s) PO TAKE TWO TABLETS BY MOUTH TWICE A DAY 06/05/2014 06/13/2015 Inactive [SAVINGS FOR UNINSURED PATIENTS -- BIN:[id number], PCN: [id number], Group: [id number], ID# [id number], Process claim through [employer], for questions: . THIS IS NOT INSURANCE.] cyanocobalamin (vit B-12) 1,000 mcg/mL injection solution RxNorm: 044550 1 Milliliter(s) Inj monthly 06/01/201406/01 Inactive Kenalog 40 mg/mL suspension for injection RxNorm: 4943811 1 Milliliter(s) Inj 05/11/2014 05/11/2014 Inactive cyanocobalamin (vit B-12) 1,000 mcg/mL injection kit RxNorm: 782662 Milliliter(s) Inj 04/27/2014 04/27/2014 Inactive amlodipine 5 mg tablet RxNorm: 970103 TAKE ONE TABLET BY MOUTH TWICE A DAY 04/02/2014 07/30/2014 Inactive cyanocobalamin (vit B-12) 1,000 mcg/mL injection kit RxNorm: 272900 1 Milliliter(s ) Inj 03/24/2014 03/24/2014 Inactive [SAVINGS FOR UNINSURED PATIENTS -- BIN:[id number] , PCN: ASPROD1, Group: [id number], ID# [id number], Process claim through [employer], for questions: . THIS IS NOT INSURANCE.] cyanocobalamin (vit B-12) 1,000 mcg/mL injection solution RxNorm: 511452 1 Milliliter(s) Inj 03/24/2014 03/24/2014 Inactive Synthroid 50 mcg tablet RxNorm: 495691 TAKE ONE TABLET BY MOUTH EVERY DAY. 03/01/2014 09/26/2014 Inactive Lasix 20 mg tablet RxNorm: 023816 TAKE ONE TABLET BY MOUTH EVERY DAY NEEDED FOR SWELLING. TAKE POTASSIUM WITH EACH DOSE 03/01/2014 09/26/2014 Inactive potassium chloride ER 20 mEq tablet,extended release(part/ cryst) RxNorm: 314112 TAKE ONE TABLET BY MOUTH EVERY DAY WHEN YOU TAKE LASIX (FUROSEMIDE) 03/01/2014 09/26/2014 Inactive cyanocobalamin (vit B-12) 1,000 mcg/mL injection solution RxNorm: 029989 1 Milliliter(s) Inj 02/24/2014 02/24/2014 Inactive Tricor 145 mg tablet RxNorm: 306247 TAKE ONE TABLET BY MOUTH EVERY DAY 02/16/2014 02/15/2014 Inactive Victoza 2-J Luis 0.6 mg/0.1 mL (18 mg/3 mL) subcutaneous pen injector RxNorm: 207992 1.2 Milligram(s) SQ daily 02/16/201408/04 Inactive Tricor 145 mg tablet RxNorm: 435813 TAKE ONE TABLET BY MOUTH EVERY DAY 02/16/2014 06/15/2014 Inactive Synthroid 50 mcg tablet RxNorm: 655666 TAKE ONE TABLET BY MOUTH EVERY DAY. 02/02/2014 03/03/2014 Inactive Synthroid 50 mcg tablet RxNorm: 625703 TAKE ONE TABLET BY MOUTH EVERY DAY. 02/02/2014 02/01/2014 Inactive simvastatin 20 mg tablet RxNorm: 981744 TAKE ONE TABLET BY MOUTH AT BEDTIME 01/12/2014 01/06/2015 Inactive cyanocobalamin (vit B-12) 1,000 mcg/mL injection solution RxNorm: 729617 Milliliter(s) Inj 01/09/2014 01/09/2014 Inactive Lortab 5 mg-500 mg tablet RxNorm: 656150 1-2 Tablet(s) PO Q4 PRN q 4-6hrs prn pain 12/23/2013 No Stop Date Active Lasix 20 mg tablet RxNorm: 137374 Tablet(s) PO TAKE ONE TABLET BY MOUTH EVERY DAY NEEDED FOR SWELLING. TAKE POTASSIUM WITH EACH DOSE 12/201302/28/2014 Inactive potassium chloride ER 20 mEq tablet,extended release(part/ cryst) RxNorm: 994743 Tablet(s) PO TAKE ONE TABLET BY MOUTH EVERY DAY WHEN YOU TAKE LASIX (FUROSEMIDE ) 12/02/2013 02/28/2014 Inactive Lomotil 2.5 mg-0.025 mg tablet RxNorm: 9388129 Tablet(s) PO TAKE ONE TABLET BY MOUTH EVERY 8 HOURS NEEDED 11/27/2013 01/28/2018 Inactive (Appended: Controlled substance eRx refill - RxReferenceNumber: [id number]) Lomotil 2.5 mg-0.025 mg tablet RxNorm: 1584352 1 Tablet(s) PO Q8 PRN 11/27/2013 05/24/2014 Inactive cyanocobalamin (vit B-12) 1,000 mcg/mL injection solution RxNorm: 865719 1 Milliliter(s) Inj 11/27/2013 11/27/2013 Inactive Vitamin B-12 1,000 mcg/mL injection solution RxNorm: 426045 1 Milliliter(s) Inj monthly 11/24/2013 11/18/2014 Inactive ok to give multidose if available Synthroid 50 mcg tablet RxNorm: 672709 Tablet(s) PO TAKE ONE TABLET BY MOUTH EVERY DAY. 10/31/2013 02/01/2014 Inactive simvastatin 20 mg tablet RxNorm: 096656 Tablet(s) PO TAKE ONE TABLET BY MOUTH AT BEDTIME 10/10/2013 01/11/2014 Inactive Vitamin B-12 1,000 mcg/mL injection solution RxNorm: 839912 1 Milliliter(s) Inj monthly 09/30/2013 09/29/2013 Inactive ok to give multidose if available Vitamin B-12 1,000 mcg/mL injection solution RxNorm: 088362 1 Milliliter(s) Inj monthly 09/30/2013 11/23/2013 Inactive ok to give multidose if available Vitamin B-12 1,000 mcg/mL injection solution RxNorm: 904049 1 Milliliter(s) Inj 09/18/2013 09/18/2013 Inactive Lopressor 100 mg tablet RxNorm: 183217 Tablet(s) PO TAKE ONE TABLET BY MOUTH EVERY DAY 09/15/2013 09/13/2014 Inactive Vitamin B-12 1,000 mcg/mL injection solution RxNorm: 369382 1 Milliliter(s) Inj 08/22/2013 08/22/2013 Inactive glipizide 10 mg tablet RxNorm: 401707 Tablet(s) PO TAKE ONE TABLET BY MOUTH TWICE A DAY 08/15/2013 07/27/2014 Inactive Tenex 1 mg tablet RxNorm: 226895 Tablet(s) PO TAKE ONE TABLET BY MOUTH EVERY DAY 08/05/2013 06/29/2014 Inactive potassium chloride ER 20 mEq tablet,extended release(part/ cryst) RxNorm: 292310 Tablet(s) PO TAKE ONE TABLET BY MOUTH EVERY DAY WHEN YOU TAKE LASIX (FUROSEMIDE ) 07/31/2013 12/01/2013 Inactive spironolactone 25 mg tablet RxNorm: 720581 Tablet(s) PO TAKE ONE TABLET BY MOUTH TWICE A DAY 07/31/2013 06/29/2014 Inactive Lasix 20 mg tablet RxNorm: 528351 Tablet(s) PO TAKE ONE TABLET BY MOUTH EVERY DAY NEEDED FOR SWELLING. TAKE POTASSIUM WITH EACH DOSE 08/201312/01/2013 Inactive Vitamin B-12 1,000 mcg/mL injection solution RxNorm: 713412 Milliliter(s) Inj 07/28/2013 07/28/2013 Inactive Synthroid 50 mcg tablet RxNorm: 240091 Tablet(s) PO TAKE ONE TABLET BY MOUTH EVERY DAY. PATIENT DUE FOR TSH LEVEL LAB 06/30/2013 06/29/2013 Inactive Synthroid 50 mcg tablet RxNorm: 211147 Tablet(s) PO TAKE ONE TABLET BY MOUTH EVERY DAY. PATIENT DUE FOR TSH LEVEL LAB 06/30/2013 10/30/2013 Inactive potassium chloride ER 20 mEq tablet,extended release(part/ cryst) RxNorm: 043971 Tablet(s) PO TAKE ONE TABLET BY MOUTH EVERY DAY WHEN YOU TAKE LASIX (FUROSEMIDE ) 06/23/2013 07/30/2013 Inactive Lasix 20 mg tablet RxNorm: 039041 Tablet(s) PO TAKE ONE TABLET BY MOUTH EVERY DAY NEEDED FOR SWELLING. TAKE POTASSIUM WITH EACH DOSE 07/30/2013 Inactive amlodipine 5 mg tablet RxNorm: 912695 Tablet(s) PO TAKE ONE TABLET BY MOUTH TWICE A DAY 06/17/2013 04/01/2014 Inactive metformin ER 500 mg tablet,extended release 24 hr RxNorm: 104756 Tablet(s) PO TAKE TWO TABLETS BY MOUTH TWICE A DAY 05/26/2013 06/04/2014 Inactive metformin ER 500 mg tablet,extended release 24 hr RxNorm: 673991 Tablet(s) PO TAKE TWO TABLETS BY MOUTH TWICE A DAY 05/26/2013 05/25/2013 Inactive Vitamin B-12 1,000 mcg/mL injection solution RxNorm: 328336 1 Milliliter(s) Inj 05/21/2013 05/21/2013 Inactive Vitamin B-12 1,000 mcg/mL Injection RxNorm: 532548 Milliliter(s) Inj 04/23/2013 04/23/2013 Inactive Influenza Virus Vaccine 0.5 mL RxNorm: IM 04/23/2013 04/23/2013 Inactive Synthroid 50 mcg tablet RxNorm: 751184 Tablet(s) PO TAKE ONE TABLET BY MOUTH EVERY DAY. PATIENT DUE FOR TSH LEVEL LAB 04/17/2013 06/29/2013 Inactive Lasix 20 mg tablet RxNorm: 090205 Tablet(s) PO TAKE ONE TABLET BY MOUTH EVERY DAY NEEDED FOR SWELLING. TAKE POTASSIUM WITH EACH DOSE 06/22/2013 Inactive potassium chloride ER 20 mEq tablet,extended release(part/ cryst) RxNorm: 0231885 Tablet(s) PO TAKE ONE TABLET BY MOUTH EVERY DAY WHEN YOU TAKE LASIX (FUROSEMIDE ) 04/17/2013 06/22/2013 Inactive simvastatin 20 mg tablet RxNorm: 780620 Tablet(s) PO TAKE ONE TABLET BY MOUTH AT BEDTIME 04/10/2013 10/09/2013 Inactive Vitamin B-12 1,000 mcg/mL Injection RxNorm: 932454 1 Milliliter(s) Inj 03/24/2013 03/24/2013 Inactive Lopressor 100 mg tablet RxNorm: 414511 Tablet(s) PO TAKE ONE TABLET BY MOUTH EVERY DAY 03/18/2013 09/14/2013 Inactive cyanocobalamin (vitamin B-12) 1,000 mcg/mL Injection RxNorm: 862274 Milliliter(s) Inj 02/20/2013 02/20/2013 Inactive Tricor 145 mg tablet RxNorm: 159678 Tablet(s) PO TAKE ONE TABLET BY MOUTH EVERY DAY 02/14/2013 02/15/2014 Inactive Vitamin B-12 1,000 mcg/mL Injection RxNorm: 565905 1 Milliliter(s) Inj 01/22/2013 01/22/2013 Inactive potassium chloride ER 20 mEq tablet,extended release(part/ cryst) RxNorm: 2929584 1 Tablet(s) PO QDAY PRN take when taking prn lasix 201204/16/2013 Inactive Lasix 20 mg tablet RxNorm: 928712 1 Tablet(s) PO QDAY PRN daily prn swelling - to take kcl with lasix 01/22/20132012 Inactive cyanocobalamin (vitamin B-12) 1,000 mcg/mL Injection RxNorm: 979265 Milliliter(s) Inj 12/19/2012 12/19/2012 Inactive cyanocobalamin (vitamin B-12) 1,000 mcg/mL Injection RxNorm: 218762 Milliliter(s) Inj 11/20/2012 11/20/2012 Inactive Diflucan 150 mg tablet RxNorm: 373816 1 Tablet(s) PO daily 11/21/2012 Inactive Synthroid 50 mcg tablet RxNorm: 544343 Tablet(s) PO TAKE ONE TABLET BY MOUTH EVERY DAY. PATIENT DUE FOR TSH LEVEL LAB 11/18/2012 04/16/2013 Inactive Keflex 500 mg capsule RxNorm: 600537 1 Capsule(s) PO TID 201211/19/2012 Inactive Keflex 500 mg capsule RxNorm: 836309 1 Capsule(s) PO TID 201211/12/2012 Inactive Byetta 10 mcg/0.04 mL per dose Sub-Q Pen Injector RxNorm: 905974 Pen Injector SQ DIAL AND INJECT SUBCUTANEOUSLY 10 MCG TWICE DAILY WITHIN 60 MINUTES BEFORE MORNING AND EVENING MEALS. DO NOT ADMINISTER AFTER A MEAL. 04/03/2014 Inactive cyanocobalamin (vitamin B-12) 1,000 mcg/mL Injection RxNorm: 269110 1 Milliliter(s ) Inj 10/23/2012 10/23/2012 Inactive Lortab 5 mg-500 mg tablet RxNorm: 433409 1-2 Tablet(s) PO Q4 PRN q 4-6hrs prn pain 10/02/2012 12/22/2013 Inactive cyanocobalamin (vitamin B-12) 1,000 mcg/mL Injection RxNorm: 248863 Milliliter(s) Inj 09/16/2012 09/16/2012 Inactive Vitamin B-12 1,000 mcg/mL Injection RxNorm: 224826 1 Milliliter(s) Inj 08/15/2012 08/15/2012 Inactive glipizide 10 mg tablet RxNorm: 465928 Tablet(s) PO TAKE ONE TABLET BY MOUTH TWICE A DAY 08/12/2012 08/14/2013 Inactive Tenex 1 mg tablet RxNorm: 620104 Tablet(s) PO TAKE ONE TABLET BY MOUTH EVERY DAY 08/12/2012 08/04/2013 Inactive Kenalog 40 mg/mL Susp for Injection RxNorm: 8621764 1 Milliliter(s) Inj 08/06/2012 01/22/2013 Inactive spironolactone 25 mg tablet RxNorm: 129159 Tablet(s) PO TAKE ONE TABLET BY MOUTH TWICE A DAY 07/29/2012 07/30/2013 Inactive cefdinir 300 mg capsule RxNorm: 042783 1 Capsule(s) PO BID 08/01/2012 Inactive cefdinir 300 mg capsule RxNorm: 150377 1 Capsule(s) PO BID 07/25/2012 Inactive Vitamin B-12 1,000 mcg/mL Injection RxNorm: 843566 1 Milliliter(s) Inj 07/19/2012 07/19/2012 Inactive simvastatin 20 mg tablet RxNorm: 421163 Tablet(s) PO TAKE ONE TABLET BY MOUTH AT BEDTIME 07/08/2012 04/09/2013 Inactive simvastatin 20 mg tablet RxNorm: 240312 Tablet(s) PO TAKE ONE TABLET BY MOUTH AT BEDTIME 07/08/2012 10/07/2015 Inactive Synthroid 50 mcg tablet RxNorm: 743273 1 Tablet(s) PO daily 12/201110/31/2012 Inactive Please advise patient due for TSH level. amlodipine 5 mg tablet RxNorm: 317820 1 Tablet(s) PO BID 201112/15/2012 Inactive amlodipine 5 mg tablet RxNorm: 767296 1 Tablet(s) PO BID 201106/18/2012 Inactive Vitamin B-12 1,000 mcg/mL Injection RxNorm: 424779 Milliliter(s) Inj 06/19/2012 06/19/2012 Inactive Lopressor 100 mg tablet RxNorm: 662978 Tablet(s) PO 06/17/2012 03/17/2013 Inactive TAKE ONE TABLET BY MOUTH EVERY DAY Vitamin B-12 1,000 mcg/mL Injection RxNorm: 073525 Milliliter(s) Inj 05/22/2012 05/22/2012 Inactive Synthroid 50 mcg tablet RxNorm: 934758 1 Tablet(s) PO daily 06/11/2012 Inactive Please advise patient due for TSH level. Diflucan 150 mg tablet RxNorm: 321399 1 Tablet(s) PO daily 11/18/2012 Inactive metformin ER 500 mg tablet,extended release 24 hr RxNorm: 783758 2 Tablet(s) PO BID 04/25/2012 05/19/2013 Inactive Vitamin B-12 1,000 mcg/mL Injection RxNorm: 735233 Milliliter(s) Inj 04/22/2012 04/22/2012 Inactive Vitamin B-12 1,000 mcg/mL Injection RxNorm: 037652 Milliliter(s) Inj 03/19/2012 03/19/2012 Inactive Vitamin B-12 1,000 mcg/mL Injection RxNorm: 552005 Milliliter(s) Inj 02/15/2012 02/15/2012 Inactive Tricor 145 mg tablet RxNorm: 291217 1 Tablet(s) PO daily 201102/13/2013 Inactive Vitamin B-12 1,000 mcg/mL Injection RxNorm: 997572 Milliliter(s) Inj 01/18/2012 01/18/2012 Inactive Kenalog 40 mg/mL Susp for Injection RxNorm: 7660321 1 Milliliter(s) Inj 12/28/2011 12/28/2011 Inactive Vitamin B-12 1,000 mcg/mL Injection RxNorm: 172406 Milliliter(s) Inj 12/20/2011 12/20/2011 Inactive omeprazole 20 mg Cap, delayed release RxNorm: 531503 1 Capsule(s) PO daily 12/07/2011 11/30/2012 Inactive may take bid if nec cyanocobalamin (vitamin B-12) 1,000 mcg/mL Injection RxNorm: 496162 1 Milliliter(s ) Inj 11/07/2011 11/07/2011 Inactive cyanocobalamin (vitamin B-12) 1,000 mcg/mL Injection RxNorm: 539015 1 Milliliter(s ) Inj 10/03/2011 10/03/2011 Inactive Synthroid 50 mcg tablet RxNorm: 994135 1 Tablet(s) PO daily 03/08/2012 Inactive Byetta 10 mcg/0.04 mL per dose Sub-Q Pen Injector RxNorm: 329093 10 Microgram(s) SQ BID 08/29/2011 09/21/2012 Inactive metformin ER 500 mg tablet,extended release 24 hr RxNorm: 624332 2 Tablet(s) PO BID 08/15/2011 02/10/2012 Inactive cyanocobalamin (vitamin B-12) 1,000 mcg/mL Injection RxNorm: 206505 1 Milliliter(s ) Inj 07/28/2011 07/28/2011 Inactive NovoFine 30 Needle RxNorm: 1 Miscellaneous BID 07/28/2011 03/18/2013 Inactive OneTouch Ultra Test strips RxNorm: 1 Miscellaneous BID 201003/18/2013 Inactive guanfacine 1 mg Tab RxNorm: 543153 1 Tablet(s) PO daily 201007/10/2012 Inactive glipizide 10 mg tablet RxNorm: 846749 1 Tablet(s) PO BID 201008/09/2012 Inactive Tenex 1 mg tablet RxNorm: 877658 1 Tablet(s) PO daily 201008/09/2012 Inactive lisinopril 20 mg tablet RxNorm: 056531 1 Tablet(s) PO daily pt 07/04/2011 04/21/2012 Inactive pt may have #90 with year if insurance pays spironolactone 25 mg tablet RxNorm: 216314 1 Tablet(s) PO BID 07/03/2011 07/26/2012 Inactive simvastatin 20 mg Tab RxNorm: 687208 1 Tablet(s) PO QHS 201006/28/2011 Inactive cyanocobalamin (vitamin B-12) 1,000 mcg/mL Injection RxNorm: 741187 Milliliter(s) Inj 06/29/2011 06/29/2011 Inactive simvastatin 20 mg tablet RxNorm: 424628 1 Tablet(s) PO QHS 07/201006/22/2012 Inactive Lopressor 100 mg tablet RxNorm: 843019 1 Tablet(s) PO daily 06/16/2012 Inactive ketorolac 60 mg/2 mL IM RxNorm: 100094 Milliliter(s) IM 201005/23/2011 Inactive cyanocobalamin (vitamin B-12) 1,000 mcg/mL Injection RxNorm: 772764 Milliliter(s) Inj 05/23/2011 05/23/2011 Inactive Influenza Virus Vaccine 0.5 mL RxNorm: IM 04/26/2011 04/26/2011 Inactive Vitamin B-12 1,000 mcg/mL Injection RxNorm: 538640 Milliliter(s) Inj 04/26/2011 04/26/2011 Inactive Lomotil 2.5 mg-0.025 mg tablet RxNorm: 9433763 1 Tablet(s) PO Q8 PRN 04/26/2011 11/27/2013 Inactive atorvastatin 10 mg tablet RxNorm: 751827 1 Tablet(s) PO QHS No Start Date Active multivitamin tablet RxNorm: 1 Tablet(s) PO daily No Start Date Active clopidogrel 75 mg tablet RxNorm: 945790 1 Tablet(s) PO daily No Start Date Active Tricor 145 mg Tab RxNorm: 821262 1 Tablet(s) PO daily No Start Date 02/07/2012 Inactive amiodarone 200 mg tablet RxNorm: 148009 1 Tablet(s) PO daily No Start Date 01/28/2018 Inactive Synthroid 50 mcg Tab RxNorm: 226368 1 Tablet(s) PO daily No Start Date 09/10/2011 Inactive lisinopril 20 mg tablet RxNorm: 137109 1 Tablet(s) PO daily No Start Date 06/18/2012 Inactive Lortab 5 mg-500 mg tablet RxNorm: 500730 1 Tablet(s) PO Q4 PRN q 4hrs prn pain No Start Date 10/01/2012 Inactive Tenex 1 mg Tab RxNorm : 664945 1 Tablet(s) PO daily No Start Date 07/16/2011 Inactive lisinopril 40 mg tablet RxNorm: 597083 Tablet(s) PO No Start Date 05/21/2012 Inactive Voltaren 1 % Topical Gel RxNorm: 558087 TOP as directed No Start Date 11/29/2015 Inactive iron 325 mg (65 mg iron) Tab RxNorm: 160047 1 Tablet(s) PO daily No Start Date 02/22/2015 Inactive Zithromax Z-J Luis 250 mg tablet RxNorm: 239752 Tablet(s) PO UD No Start Date 01/22/2013 Inactive Byetta 10 mcg/0.04 mL per dose Sub-Q Pen Injector RxNorm: 798129 Milliliter(s) SQ BID No Start Date 08/28/2011 Inactive Mouth Sore oral RxNorm : 1399 mucous membrane No Start Date 01/28/2018 Inactive cyanocobalamin (vitamin B-12) 1,000 mcg/mL Injection RxNorm: 940767 1 Milliliter(s ) Inj month No Start Date 11/30/2015 Inactive Tessalon 200 mg capsule RxNorm: 896223 1 Capsule(s) PO TID PRN No Start Date 01/21/2013 Inactive metoprolol succinate ER 100 mg tablet,extended release 24 hr RxNorm: 595365 1 Tablet(s) PO daily No Start Date 2017 Inactive Victoza 2-J Luis 0.6 mg/0.1 mL (18 mg/3 mL) subcutaneous pen injector RxNorm: 644770 1.2 Milligram(s) SQ daily No Start Date Inactive simvastatin 20 mg Tab RxNorm: 754941 1 Tablet(s) PO QHS No Start Date 06/28/2011 Inactive spironolactone 25 mg Tab RxNorm: 320361 1 Tablet(s) PO BID No Start Date 07/02/2011 Inactive Diflucan 150 mg tablet RxNorm: 074486 1 Tablet(s) PO daily No Start Date 04/24/2012 Inactive guanfacine 1 mg Tab RxNorm: 288766 1 Tablet(s) PO daily No Start Date 07/16/2011 Inactive Ativan 1 mg Tab RxNorm : 642606 1/2-1 Tablet(s) PO Q6 PRN 1/2 - 1 tab q 6 hours if needed for anxiety No Start Date 2013 Inactive metformin ER 500 mg 24 hr Tab RxNorm: 660210 2 Tablet(s) PO BID No Start Date 08/14/2011 Inactive warfarin 2 mg tablet RxNorm: 611400 1 Tablet(s) PO daily No Start Date 01/28/2018 Inactive Lopressor 100 mg Tab RxNorm: 716837 1 Tablet(s) PO daily No Start Date 06/26/2011 Inactive glipizide 10 mg Tab RxNorm: 858187 1 Tablet(s) PO BID No Start Date 07/16/2011 Inactive KCL 10 meq RxNorm: PO as directed daily when taking lasix No Start Date 01/22/2013 Inactive lisinopril 20 mg Tab RxNorm: 106763 1 Tablet(s) PO daily No Start Date 07/03/2011 Inactive One Touch Ultra Test Strips RxNorm: 1 Miscellaneous BID No Start Date 07/27/2011 Inactive aspirin 81 mg Tab, Delayed Release RxNorm: 962267 1 Tablet(s) PO daily No Start Date 01/28/2018 Inactive omeprazole 20 mg Cap, delayed release RxNorm: 554667 1 Capsule(s) PO BID No Start Date 12/06/2011 Inactive Lasix 20 mg tablet RxNorm: 671417 Tablet(s) PO as directed daily prn swelling - to take kcl with lasix No Start Date 01/21 Inactive Vitamin D 1,000 unit Tab RxNorm: 725694 1 Tablet(s) PO daily No Start Date 01/28/2018 Inactive niacin 500 mg Tab RxNorm: 550297 1 Tablet(s) PO QHS No Start Date 04/03/2014 Inactive Medication Administered Medication Codes Instructions Start Date Status cyanocobalamin (vit B-12) 1,000 mcg/mL injection solution RxNorm: 299558 1Milliliter 05/07/2018 No longer Active cyanocobalamin (vit B-12) 1,000 mcg/mL injection solution RxNorm: 054423 Milliliter 04/04/2018 No longer Active cyanocobalamin (vit B-12) 1,000 mcg/mL injection solution RxNorm: 122993 1Milliliter 03/04/2018 No longer Active cyanocobalamin (vit B-12) 1,000 mcg/mL injection solution RxNorm: 012968 1Milliliter 01/29/2018 No longer Active cyanocobalamin (vit B-12) 1,000 mcg/mL injection solution RxNorm: 706367 Milliliter 12/18/2017 No longer Active cyanocobalamin (vit B-12) 1,000 mcg/mL injection solution RxNorm: 002728 1Milliliter 11/20/2017 No longer Active cyanocobalamin (vit B-12) 1,000 mcg/mL injection solution RxNorm: 493815 1Milliliter 08/21/2017 No longer Active cyanocobalamin (vit B-12) 1,000 mcg/mL injection solution RxNorm: 560352 1Milliliter 07/18/2017 No longer Active cyanocobalamin (vit B-12) 1,000 mcg/mL injection solution RxNorm: 772613 1Milliliter 06/18/2017 No longer Active Kenalog 40 mg/mL suspension for injection RxNorm: 2570428 1Milliliter 06/18/2017 No longer Active cyanocobalamin (vit B-12) 1,000 mcg/mL injection solution RxNorm: 519547 1Milliliter 05/09/2017 No longer Active cyanocobalamin (vit B-12) 1,000 mcg/mL injection solution RxNorm: 888000 1Milliliter 04/04/2017 No longer Active Kenalog 40 mg/mL suspension for injection RxNorm: 4744801 1Milliliter 02/23/2017 No longer Active cyanocobalamin (vit B-12) 1,000 mcg/mL injection solution RxNorm: 385434 Milliliter 01/23/2017 No longer Active cyanocobalamin (vit B-12) 1,000 mcg/mL injection solution RxNorm: 383449 1Milliliter 11/14/2016 No longer Active Kenalog 40 mg/mL suspension for injection RxNorm: 2503577 1Milliliter 09/07/2016 No longer Active cyanocobalamin (vit B-12) 1,000 mcg/mL injection solution RxNorm: 323741 1Milliliter 08/29/2016 No longer Active cyanocobalamin (vit B-12) 1,000 mcg/mL injection solution RxNorm: 072582 Milliliter 06/12/2016 No longer Active ceftriaxone 500 mg solution for injection RxNorm: 8205821 2Milliliter 05/04/2016 No longer Active cyanocobalamin (vit B-12) 1,000 mcg/mL injection solution RxNorm: 356038 Milliliter 05/04/2016 No longer Active cyanocobalamin (vit B-12) 1,000 mcg/mL injection solution RxNorm: 956810 Milliliter 03/17/2016 No longer Active cyanocobalamin (vit B-12) 1,000 mcg/mL injection solution RxNorm: 252419 1Milliliter 02/15/2016 No longer Active cyanocobalamin (vit B-12) 1,000 mcg/mL injection solution RxNorm: 591378 Milliliter 01/19/2016 No longer Active cyanocobalamin (vit B-12) 1,000 mcg/mL injection solution RxNorm: 485067 1Milliliter 12/07/2015 No longer Active cyanocobalamin (vit B-12) 1,000 mcg/mL injection kit RxNorm : 580235 kit 09/06/2015 No longer Active ceftriaxone 500 mg solution for injection RxNorm: 6740817 09/06/2015 No longer Active ceftriaxone 500 mg solution for injection RxNorm: 6840698 07/05/2015 No longer Active Kenalog 40 mg/mL suspension for injection RxNorm: 8510822 Milliliter 07/05/2015 No longer Active cyanocobalamin (vit B-12) 1,000 mcg/mL injection solution RxNorm: 978615 Milliliter 06/28/2015 No longer Active cyanocobalamin (vit B-12) 1,000 mcg/mL injection solution RxNorm: 535760 Milliliter 05/13/2015 No longer Active cyanocobalamin (vit B-12) 1,000 mcg/mL injection solution RxNorm: 432691 Milliliter 02/23/2015 No longer Active cyanocobalamin (vit B-12) 1,000 mcg/mL injection solution RxNorm: 385576 Milliliter 01/08/2015 No longer Active cyanocobalamin (vit B-12) 1,000 mcg/mL injection solution RxNorm: 244302 Milliliter 12/08/2014 No longer Active cyanocobalamin (vit B-12) 1,000 mcg/mL injection solution RxNorm: 286348 Milliliter 10/26/2014 No longer Active cyanocobalamin (vit B-12) 1,000 mcg/mL injection solution RxNorm: 000229 Milliliter 09/24/2014 No longer Active cyanocobalamin (vit B-12) 1,000 mcg/mL injection solution RxNorm: 801173 Milliliter 08/24/2014 No longer Active cyanocobalamin (vit B-12) 1,000 mcg/mL injection solution RxNorm: 056603 1Milliliter 06/01/2014 No longer Active Kenalog 40 mg/mL suspension for injection RxNorm: 3538839 1Milliliter 05/11/2014 No longer Active cyanocobalamin (vit B-12) 1,000 mcg/mL injection kit RxNorm : 204762 Milliliter 04/27/2014 No longer Active cyanocobalamin (vit B-12) 1,000 mcg/mL injection kit RxNorm : 124224 1Milliliter 03/24/2014 No longer Active cyanocobalamin (vit B-12) 1,000 mcg/mL injection solution RxNorm: 779887 1Milliliter 03/24/2014 No longer Active cyanocobalamin (vit B-12) 1,000 mcg/mL injection solution RxNorm: 664649 1Milliliter 02/24/2014 No longer Active cyanocobalamin (vit B-12) 1,000 mcg/mL injection solution RxNorm: 421576 Milliliter 01/09/2014 No longer Active cyanocobalamin (vit B-12) 1,000 mcg/mL injection solution RxNorm: 748732 1Milliliter 11/27/2013 No longer Active Vitamin B-12 1,000 mcg/mL injection solution RxNorm: 828294 1Milliliter 09/18/2013 No longer Active Vitamin B-12 1,000 mcg/mL injection solution RxNorm: 482013 1Milliliter 08/22/2013 No longer Active Vitamin B-12 1,000 mcg/mL injection solution RxNorm: 951797 Milliliter 07/28/2013 No longer Active Vitamin B-12 1,000 mcg/mL injection solution RxNorm: 588656 1Milliliter 05/21/2013 No longer Active Influenza Virus Vaccine 0.5 mL RxNorm: 04/23/2013 No longer Active Vitamin B-12 1,000 mcg/mL Injection RxNorm: 979971 Milliliter 04/23/2013 No longer Active Vitamin B-12 1,000 mcg/mL Injection RxNorm: 170085 1Milliliter 03/24/2013 No longer Active cyanocobalamin (vitamin B-12) 1,000 mcg/mL Injection RxNorm : 570841 Milliliter 02/20/2013 No longer Active Vitamin B-12 1,000 mcg/mL Injection RxNorm: 679057 1Milliliter 01/22/2013 No longer Active cyanocobalamin (vitamin B-12) 1,000 mcg/mL Injection RxNorm : 086478 Milliliter 12/19/2012 No longer Active cyanocobalamin (vitamin B-12) 1,000 mcg/mL Injection RxNorm : 942301 Milliliter 11/20/2012 No longer Active cyanocobalamin (vitamin B-12) 1,000 mcg/mL Injection RxNorm : 582575 1Milliliter 10/23/2012 No longer Active cyanocobalamin (vitamin B-12) 1,000 mcg/mL Injection RxNorm : 568577 Milliliter 09/16/2012 No longer Active Vitamin B-12 1,000 mcg/mL Injection RxNorm: 100157 1Milliliter 08/15/2012 No longer Active Vitamin B-12 1,000 mcg/mL Injection RxNorm: 727788 1Milliliter 07/19/2012 No longer Active Vitamin B-12 1,000 mcg/mL Injection RxNorm: 157401 Milliliter 06/19/2012 No longer Active Vitamin B-12 1,000 mcg/mL Injection RxNorm: 759488 Milliliter 05/22/2012 No longer Active Vitamin B-12 1,000 mcg/mL Injection RxNorm: 442216 Milliliter 04/22/2012 No longer Active Vitamin B-12 1,000 mcg/mL Injection RxNorm: 851849 Milliliter 03/19/2012 No longer Active Vitamin B-12 1,000 mcg/mL Injection RxNorm: 015658 Milliliter 02/15/2012 No longer Active Vitamin B-12 1,000 mcg/mL Injection RxNorm: 754591 Milliliter 01/18/2012 No longer Active Kenalog 40 mg/mL Susp for Injection RxNorm: 1175208 1Milliliter 12/28/2011 No longer Active Vitamin B-12 1,000 mcg/mL Injection RxNorm: 074535 Milliliter 12/20/2011 No longer Active cyanocobalamin (vitamin B-12) 1,000 mcg/mL Injection RxNorm : 431557 1Milliliter 11/07/2011 No longer Active cyanocobalamin (vitamin B-12) 1,000 mcg/mL Injection RxNorm : 987540 1Milliliter 10/03/2011 No longer Active cyanocobalamin (vitamin B-12) 1,000 mcg/mL Injection RxNorm : 477675 1Milliliter 07/28/2011 No longer Active cyanocobalamin (vitamin B-12) 1,000 mcg/mL Injection RxNorm : 543364 Milliliter 06/29/2011 No longer Active cyanocobalamin (vitamin B-12) 1,000 mcg/mL Injection RxNorm : 433010 Milliliter 05/23/2011 No longer Active ketorolac 60 mg/2 mL IM RxNorm: 459502 Milliliter 05/23/2011 No longer Active Influenza Virus Vaccine 0.5 mL RxNorm: 04/26/2011 No longer Active Vitamin B-12 1,000 mcg/mL Injection RxNorm: 269068 Milliliter 04/26/2011 No longer Active Immunizations Vaccine [...] 12/20/2011 blood pressure followup 08/23/2011 pt states Raymond had her wear a boot and it [...] 28.4 pg 06/07/2017 Cbc With Differential Ord2 [place]% 12.6 % 06/07/2017 Cbc With Differential Ord2 [...] 1.23 K/ul 06/07/2017 Cbc With Differential Ord2 [place] ABS# 0.7 K/ul 06/07/2017 Cbc With Differential Ord2 Eos ABS# 0.2 K/ul 06/07/2017 Cbc With Differential Ord2 Baso ABS# 0.0 K/ul 06/07/2017 Culture Urine [id number] URINE CULTURE SEE NOTES 05/08/2016 Culture Urine [id number] Continued Results 05/08/2016 Urine Culture Ucult Complete >100,000 col/ml aerobic growth sent to ref lab 05/05/2016 IRON TEST [id number] IRON TEST 44 UG/DL 07/28/2013 TSH [id number] TSH 2.104 uIU/ML 07/28/2013 CBC [id number] WBC 6.2 10e9/L 07/28/2013 CBC [id number] RBC 3.95 10e12/L 07/28/2013 CBC [id number] HGB 11.2 g/dL 07/28/2013 CBC [id number] HCT DET 34.2 % 07/28/2013 CBC [id number] MCV 86.6 fL 07/28/2013 CBC [id number] MCH 28.4 pg 07/28/2013 CBC [id number] MCHC 32.7 g/dL 07/28/2013 CBC [id number] PLT 231 10e9/L 07/28/2013 CBC [id number] MPV 10.9 fL 07/28/2013 CBC [id number] JAZMYN % 61.0 % 07/28/2013 CBC [id number] LY % 27.8 % 07/28/2013 CBC [id number] MON % 8.0 % 07/28/2013 CBC [id number] EOS % 2.4 % 07/28/2013 CBC [id number] BASO % 0.8 % 07/28/2013 CBC [id number] RDW 14.0 % 07/28/2013 CBC [id number] ABS JAZMYN 3.78 10e9/L 07/28/2013 CBC [id number] ABS LYMPH 1.72 10e9/L 07/28/2013 CBC [id number] ABS MONO 0.50 10e9/L 07/28/2013 CBC [id number] ABS EOS 0.15 10e9/L 07/28/2013 CBC [id number] ABS BASO 0.05 10e9/L 07/28/2013 CBC [id number] RDW-SD 42.9 fL 07/28/2013 %SAT/TIBC [id number] TIBC 439 UG/DL 07/28/2013 %SAT/TIBC 5926047 % SATURAT 10 % 07/28/2013 %SAT/TIBC [id number] UIBC 395 MCG/DL 07/28/2013 Review of Systems [...] accomodation 06/16/2013 None Full Exam - General 1995 Ears/Nose/Throat otoscopic exam Overall: external auditory canals clear 06/16/2013 None Full Exam - General 1994 Ears/Nose/Throat otoscopic exam Overall: tympanic membranes clear 06/16/2013 None Full Exam - General 1995 Ears/Nose/Throat oral cavity/pharynx/larynx Overall: oral mucosa clear 06/16/2013 None Full Exam - General 1995 Ears/Nose/Throat [...] Procedure Codes Date THER/PROPH/DIAG INJ SC/IM CPT-4: 77002 05/07/2018 VITAMIN B12 INJECTION CPT-4: J3420 05/07/2018 FLU VAC NO PRSV 4 JINNY 2 YRS+ CPT-4: 26631 04/04/2018 ADMIN INFLUENZA VIRUS VAC CPT-4: G0008 04/04/2018 THER/PROPH/DIAG INJ SC/IM CPT-4: 11546 04/04/2018 VITAMIN B12 INJECTION CPT-4: J3420 04/04/2018 THER/PROPH/DIAG INJ SC/IM CPT-4: 58823 03/04/2018 VITAMIN B12 INJECTION CPT-4: J3420 03/04/2018 PPPS, SUBSEQ VISIT CPT -4: G0439 01/29/2018 ADMIN PNEUMOCOCCAL VACCINE SNOMED CT: 11462268 CPT-4: G0009 01/29/2018 PNEUMOCOCCAL VACC [address]: 43094026 CPT-4: 64179 01/29/2018 THER/PROPH/DIAG INJ SC/IM CPT-4: 44200 01/29/2018 VITAMIN B12 INJECTION CPT-4: J3420 01/29/2018 PRESCRIP TRANSMIT VIA ERX SY CPT-4: G8553 01/01/2018 PRESCRIP TRANSMIT VIA ERX SY CPT-4: G8553 12/27/2017 THER/PROPH/DIAG INJ SC/IM CPT-4: 09977 12/18/2017 VITAMIN B12 INJECTION CPT-4: J3420 12/18/2017 PRESCRIP TRANSMIT VIA ERX SY CPT-4: G8553 12/18/2017 THER/PROPH/DIAG INJ SC/IM CPT-4: 34691 11/20/2017 VITAMIN B12 INJECTION CPT-4: J3420 11/20/2017 THER/PROPH/DIAG INJ SC/IM CPT-4: 14105 08/21/2017 VITAMIN B12 INJECTION CPT-4: J3420 08/21/2017 THER/PROPH/DIAG INJ SC/IM CPT-4: 11350 07/18/2017 VITAMIN B12 INJECTION CPT-4: J3420 07/18/2017 TRIAMCINOLONE ACET INJ NOS CPT-4: J3301 06/18/2017 THER/PROPH/DIAG INJ SC/IM CPT-4: 76550 06/18/2017 VITAMIN B12 INJECTION CPT-4: J3420 06/18/2017 PRESCRIP TRANSMIT VIA ERX SY CPT-4: G8553 06/18/2017 THER/PROPH/DIAG INJ SC/IM CPT-4: 65993 05/09/2017 VITAMIN B12 INJECTION CPT-4: J3420 05/09/2017 ADMIN INFLUENZA VIRUS VAC CPT-4: G0008 04/25/2017 FLU VAC NO PRSV 4 JINNY 3 YRS+ CPT-4: 12462 04/25/2017 THER/PROPH/DIAG INJ SC/IM CPT-4: 64081 04/04/2017 VITAMIN B12 INJECTION CPT-4: J3420 04/04/2017 TRIAMCINOLONE ACET INJ NOS CPT-4: J3301 02/23/2017 VITAMIN B12 INJECTION CPT-4: J3420 02/23/2017 THER/PROPH/DIAG INJ SC/IM CPT-4: 27592 01/23/2017 VITAMIN B12 INJECTION CPT-4: J3420 01/23/2017 VITAMIN B12 INJECTION CPT-4: J3420 12/26/2016 THER/PROPH/DIAG INJ SC/IM CPT-4: 05841 12/26/2016 THER/PROPH/DIAG INJ SC/IM CPT-4: 79648 11/14/2016 VITAMIN B12 INJECTION CPT-4: J3420 11/14/2016 THER/PROPH/DIAG INJ SC/IM CPT-4: 71611 09/07/2016 TRIAMCINOLONE ACET INJ NOS CPT-4: J3301 09/07/2016 PRESCRIP TRANSMIT VIA ERX SY CPT-4: G8553 09/07/2016 THER/PROPH/DIAG INJ SC/IM CPT-4: 56509 08/29/2016 VITAMIN B12 INJECTION CPT-4: J3420 08/29/2016 PRESCRIP TRANSMIT VIA ERX SY CPT-4: G8553 08/29/2016 THER/PROPH/DIAG INJ SC/IM CPT-4: 28840 06/12/2016 VITAMIN B12 INJECTION CPT-4: J3420 06/12/2016 PRESCRIP TRANSMIT VIA ERX SY CPT-4: G8553 06/12/2016 URINALYSIS NONAUTO W/O SCOPE CPT-4: 38346 05/04/2016 ROCEPHIN, PER 250 MG CPT-4: J0696 05/04/2016 THER/PROPH/DIAG INJ SC/IM CPT-4: 41711 05/04/2016 VITAMIN B12 INJECTION CPT-4: J3420 05/04/2016 PRESCRIP TRANSMIT VIA ERX SY CPT-4: G8553 05/04/2016 PRESCRIP TRANSMIT VIA ERX SY CPT-4: G8553 03/30/2016 THER/PROPH/DIAG INJ SC/IM CPT-4: 65157 03/17/2016 VITAMIN B12 INJECTION CPT-4: J3420 03/17/2016 THER/PROPH/DIAG INJ SC/IM CPT-4: 28948 02/15/2016 VITAMIN B12 INJECTION CPT-4: J3420 02/15/2016 THER/PROPH/DIAG INJ SC/IM CPT-4: 08963 01/19/2016 VITAMIN B12 INJECTION CPT-4: J3420 01/19/2016 THER/PROPH/DIAG INJ SC/IM CPT-4: 45402 12/07/2015 VITAMIN B12 INJECTION CPT-4: J3420 12/07/2015 ROCEPHIN, PER 250 MG CPT-4: J0696 09/06/2015 THER/PROPH/DIAG INJ SC/IM CPT-4: 43624 09/06/2015 VITAMIN B12 INJECTION CPT-4: J3420 09/06/2015 PRESCRIP TRANSMIT VIA ERX SY CPT-4: G8553 09/06/2015 ROCEPHIN, PER 250 MG CPT-4: J0696 07/05/2015 TRIAMCINOLONE ACET INJ NOS CPT-4: J3301 07/05/2015 PRESCRIP TRANSMIT VIA ERX SY CPT-4: G8553 07/05/2015 THER/PROPH/DIAG INJ SC/IM CPT-4: 02570 06/28/2015 VITAMIN B12 INJECTION CPT-4: J3420 06/28/2015 THER/PROPH/DIAG INJ SC/IM CPT-4: 50338 05/13/2015 VITAMIN B12 INJECTION CPT-4: J3420 05/13/2015 THER/PROPH/DIAG INJ SC/IM CPT-4: 33765 02/23/2015 VITAMIN B12 INJECTION CPT-4: J3420 02/23/2015 THER/PROPH/DIAG INJ SC/IM CPT-4: 53135 01/08/2015 VITAMIN B12 INJECTION CPT-4: J3420 01/08/2015 THER/PROPH/DIAG INJ SC/IM CPT-4: 16449 12/08/2014 VITAMIN B12 INJECTION CPT-4: J3420 12/08/2014 THER/PROPH/DIAG INJ SC/IM CPT-4: 49570 10/26/2014 VITAMIN B12 INJECTION CPT-4: J3420 10/26/2014 VITAMIN B12 INJECTION CPT-4: J3420 09/24/2014 THER/PROPH/DIAG INJ SC/IM CPT-4: 38516 09/24/2014 THER/PROPH/DIAG INJ SC/IM CPT-4: 51494 08/24/2014 VITAMIN B12 INJECTION CPT-4: J3420 08/24/2014 THER/PROPH/DIAG INJ SC/IM CPT-4: 17122 07/08/2014 VITAMIN B12 INJECTION CPT-4: J3420 07/08/2014 THER/PROPH/DIAG INJ SC/IM CPT-4: 54573 06/01/2014 VITAMIN B12 INJECTION CPT-4: J3420 06/01/2014 TRIAMCINOLONE ACET INJ NOS CPT-4: J3301 05/11/2014 VITAMIN B12 INJECTION CPT-4: J3420 04/27/2014 THER/PROPH/DIAG INJ SC/IM CPT-4: 39144 04/27/2014 FLU VAC NO PRSV 4 JINNY 2 YRS+ CPT-4: 82830 04/03/2014 ADMIN INFLUENZA VIRUS VAC Assigned to/Juliana Graham CPT-4: [id number] 04/03/2014 THER/PROPH/DIAG INJ SC/IM CPT-4: 84656 03/24/2014 THER/PROPH/DIAG INJ SC/IM CPT-4: 26743 02/24/2014 THER/PROPH/DIAG INJ SC/IM CPT-4: 10459 01/09/2014 THER/PROPH/DIAG INJ SC/IM CPT-4: 07557 11/27/2013 THER/PROPH/DIAG INJ SC/IM CPT-4: 81170 09/18/2013 VITAMIN B12 INJECTION CPT-4: J3420 09/18/2013 THER/PROPH/DIAG INJ SC/IM CPT-4: 27623 08/22/2013 VITAMIN B12 INJECTION CPT-4: J3420 08/22/2013 ROUTINE VENIPUNCTURE CPT-4: 68179 07/28/2013 VITAMIN B12 INJECTION CPT-4: J3420 07/28/2013 THER/PROPH/DIAG INJ SC/IM CPT-4: 28500 07/28/2013 THER/PROPH/DIAG INJ SC/IM CPT-4: 21443 06/16/2013 VITAMIN B12 INJECTION CPT-4: J3420 06/16/2013 THER/PROPH/DIAG INJ SC/IM CPT-4: 04564 05/21/2013 VITAMIN B12 INJECTION CPT-4: J3420 05/21/2013 ADMIN INFLUENZA VIRUS VAC CPT-4: G0008 04/23/2013 FLULAVAL VACC, 3 YRS & >, IM CPT-4: Q2036 04/23/2013 VITAMIN B12 INJECTION CPT-4: J3420 04/23/2013 THER/PROPH/DIAG INJ SC/IM CPT-4: 37441 04/23/2013 THER/PROPH/DIAG INJ SC/IM CPT-4: 61241 03/24/2013 VITAMIN B12 INJECTION CPT-4: J3420 03/24/2013 THER/PROPH/DIAG INJ SC/IM CPT-4: 79067 02/20/2013 VITAMIN B12 INJECTION CPT-4: J3420 02/20/2013 VITAMIN B12 INJECTION CPT-4: J3420 01/22/2013 PRESCRIP TRANSMIT VIA ERX SY CPT-4: G8553 01/22/2013 TRIAMCINOLONE ACET INJ NOS CPT-4: J3301 12/19/2012 VITAMIN B12 INJECTION CPT-4: J3420 12/19/2012 THER/PROPH/DIAG INJ SC/IM CPT-4: 41842 11/20/2012 VITAMIN B12 INJECTION CPT-4: J3420 11/20/2012 THER/PROPH/DIAG INJ SC/IM CPT-4: 82228 10/23/2012 VITAMIN B12 INJECTION CPT-4: J3420 10/23/2012 THER/PROPH/DIAG INJ SC/IM CPT-4: 84788 09/16/2012 VITAMIN B12 INJECTION CPT-4: J3420 09/16/2012 VITAMIN B12 INJECTION CPT-4: J3420 08/15/2012 THER/PROPH/DIAG INJ SC/IM CPT-4: 66310 08/15/2012 TRIAMCINOLONE ACET INJ NOS CPT-4: J3301 08/06/2012 THER/PROPH/DIAG INJ SC/IM CPT-4: 00296 08/06/2012 PRESCRIP TRANSMIT VIA ERX SY CPT-4: G8553 08/06/2012 VITAMIN B12 INJECTION CPT-4: J3420 07/19/2012 THER/PROPH/DIAG INJ SC/IM CPT-4: 58851 07/19/2012 DRAIN/INJECT JOINT/BURSA CPT-4: 91168 07/10/2012 THER/PROPH/DIAG INJ SC/IM CPT-4: 78796 06/19/2012 VITAMIN B12 INJECTION CPT-4: J3420 06/19/2012 VITAMIN B12 INJECTION CPT-4: J3420 05/22/2012 THER/PROPH/DIAG INJ SC/IM CPT-4: 56882 05/22/2012 ADMIN INFLUENZA VIRUS VAC CPT-4: G0008 04/22/2012 FLULAVAL VACC, 3 YRS & >, IM CPT-4: Q2036 04/22/2012 VITAMIN B12 INJECTION CPT-4: J3420 04/22/2012 VITAMIN B12 INJECTION CPT-4: J3420 03/19/2012 THER/PROPH/DIAG INJ SC/IM CPT-4: 61525 03/19/2012 VITAMIN B12 INJECTION CPT-4: J3420 02/15/2012 THER/PROPH/DIAG INJ SC/IM CPT-4: 99285 02/15/2012 THER/PROPH/DIAG INJ SC/IM CPT-4: 49053 01/18/2012 VITAMIN B12 INJECTION CPT-4: J3420 01/18/2012 TRIAMCINOLONE ACET INJ NOS CPT-4: J3301 12/28/2011 DRAIN/INJECT JOINT/BURSA CPT-4: 75215 12/28/2011 VITAMIN B12 INJECTION CPT-4: J3420 12/20/2011 THER/PROPH/DIAG INJ SC/IM CPT-4: 27554 12/20/2011 VITAMIN B12 INJECTION CPT-4: J3420 11/07/2011 THER/PROPH/DIAG INJ SC/IM CPT-4: 58922 11/07/2011 VITAMIN B12 INJECTION CPT-4: J3420 10/03/2011 THER/PROPH/DIAG INJ SC/IM CPT-4: 56305 10/03/2011 TRIAMCINOLONE ACET INJ NOS CPT-4: J3301 08/23/2011 DRAIN/INJECT JOINT/BURSA CPT-4: 04677 08/23/2011 THER/PROPH/DIAG INJ SC/IM CPT-4: 47259 08/23/2011 VITAMIN B12 INJECTION CPT-4: J3420 08/23/2011 VITAMIN B12 INJECTION CPT-4: J3420 07/28/2011 THER/PROPH/DIAG INJ SC/IM CPT-4: 08694 07/28/2011 VITAMIN B12 INJECTION CPT-4: J3420 06/29/2011 THER/PROPH/DIAG INJ SC/IM CPT-4: 51886 06/29/2011 KETOROLAC TROMETHAMINE INJ CPT-4: J1885 05/23/2011 VITAMIN B12 INJECTION CPT-4: J3420 05/23/2011 THER/PROPH/DIAG INJ SC/IM CPT-4: 88961 05/23/2011 ADMIN INFLUENZA VIRUS VAC CPT-4: G0008 04/26/2011 FLULAVAL VACC, 3 YRS & >, IM CPT-4: Q2036 04/26/2011 VITAMIN B12 INJECTION CPT-4: J3420 04/26/2011 THER/PROPH/DIAG INJ SC/IM CPT-4: 79768 04/26/2011 Vital Signs Date Vital 05/07/2018 Blood Pressure 1: 130/60 Code : 8480-6 BMI: 35.5 Code : 57484-0 Heart Rate 1 : 60 bpm Height: 5'6" SpO2: 97% Weight: 220 lbs 01/29/2018 Blood Pressure 1: 150/80 Code : 8480-6 BMI: 35.5 Code : 22166-6 Heart Rate 1 : 68 bpm Height: 5'6" SpO2: 97% Waist Measure (cm): 109 cm Weight: 220 lbs 01/01/2018 Blood Pressure 1: 136/68 Code : 8480-6 BMI: 35.2 Code : 67961-8 Heart Rate 1 : 60 bpm Height: 5'6" Respiratory Rate: 16 bpm SpO2: 98% Weight: 218 lbs 12/27/2017 Height: Weight: 12/18/2017 Blood Pressure 1: 118/62 Code : 8480-6 BMI: 36.2 Code : 27345-1 Heart Rate 1 : 45 bpm Height: 5'6" SpO2: 98% Weight: 224 lbs 12/13/2017 Blood Pressure 1: 138/88 Code : 8480-6 Heart Rate 1: 92 bpm Height: SpO2: 98% Weight: 06/18/2017 Blood Pressure 1: 134/68 Code : 8480-6 BMI: 35.8 Code : 36387-6 Heart Rate 1 : 50 bpm Height: 5'6" SpO2: 98% Weight: 222 lbs 06/07/2017 Blood Pressure 1: 146/68 Code : 8480-6 BMI: 35.3 Code : 43788-3 Heart Rate 1 : 63 bpm Height: 5'6" SpO2: 99% Weight: 218 lbs 8 oz 04/16/2017 Blood Pressure 1: 130/62 Code : 8480-6 BMI: 34.7 Code : 00458-5 Heart Rate 1 : 51 bpm Height: 5'6" SpO2: 94% Weight: 215 lbs 02/23/2017 Blood Pressure 1: 136/64 Code : 8480-6 BMI: 35.0 Code : 65339-0 Heart Rate 1 : 54 bpm Height: 5'6" SpO2: 96% Weight: 217 lbs 12/26/2016 Blood Pressure 1: 144/74 Code : 8480-6 BMI: 34.5 Code : 84761-1 Heart Rate 1 : 60 bpm Height: 5'6" SpO2: 97% Weight: 214 lbs 09/07/2016 Blood Pressure 1: 138/62 Code : 8480-6 Heart Rate 1: 86 bpm SpO2: 96% Temperature: 36.8 (C) / 98.2 (F) Weight: 207 lbs 08/29/2016 Blood Pressure 1: 132/58 Code : 8480-6 BMI: 33.9 Code : 63827-4 Heart Rate 1 : 55 bpm Height: 5'6" SpO2: 98% Weight: 210 lbs 06/12/2016 Blood Pressure 1: 128/76 Code : 8480-6 BMI: 33.2 Code : 02088-2 Heart Rate 1 : 57 bpm Height: 5'6" SpO2: 97% Weight: 206 lbs 05/04/2016 Blood Pressure 1: 130/72 Code : 8480-6 BMI: 33.9 Code : 82359-1 Heart Rate 1 : 74 bpm Height: 5'6" SpO2: 96% Temperature: 36.9 (C) / 98.5 (F) Weight: 210 lbs 03/30/2016 Blood Pressure 1: 116/66 Code : 8480-6 BMI: 34.3 Code : 06382-5 Heart Rate 1 : 67 bpm Height: 5'6" SpO2: 98% Weight: 212 lbs 8 oz 11/30/2015 Blood Pressure 1: 138/64 Code : 8480-6 BMI: 35.2 Code : 22949-8 Heart Rate 1 : 59 bpm Height: 5'6" SpO2: 98% Weight: 218 lbs 09/06/2015 Blood Pressure 1: 138/668 Code: 8480-6 BMI: 35.3 Code: 73895-5 Heart Rate 1: 68 bpm Height: 5'6" Weight: 219 lbs 08/04/2015 Blood Pressure 1: 140/82 Code : 8480-6 Heart Rate 1: 62 bpm SpO2: 98% Weight: 220 lbs 07/05/2015 Blood Pressure 1: 122/80 Code : 8480-6 BMI: 36.0 Code : 68348-2 Heart Rate 1 : 63 bpm Height: 5'6" SpO2: 97% Temperature: 36.3 (C) / 97.3 (F) Weight: 223 lbs 06/28/2015 Blood Pressure 1: 150/74 Code : 8480-6 BMI: 36.3 Code : 08032-6 Heart Rate 1 : 65 bpm Height: 5'6" SpO2: 96% Weight: 225 lbs 02/23/2015 Blood Pressure 1: 142/64 Code : 8480-6 BMI: 37.0 Code : 31460-6 Heart Rate 1 : 56 bpm Height: 5'6" SpO2: 96% Weight: 229 lbs 01/08/2015 Blood Pressure 1: 128/88 Code : 8480-6 BMI: 37.3 Code : 95073-7 Heart Rate 1 : 74 bpm Height: 5'6" Weight: 231 lbs 09/24/2014 Blood Pressure 1: 128/70 Code : 8480-6 BMI: 36.8 Code : 12224-4 Heart Rate 1 : 68 bpm Height: 5'6" SpO2: 96% Weight: 228 lbs 05/11/2014 Blood Pressure 1: 148/82 Code : 8480-6 Height: Temperature: 36.2 (C) / 97.2 (F) Weight: 05/01/2014 Blood Pressure 1: 128/68 Code : 8480-6 BMI: 36.6 Code : 81745-5 Heart Rate 1 : 74 bpm Height: 5'6" Weight: 227 lbs 04/03/2014 Blood Pressure 1: 130/72 Code : 8480-6 BMI: 36.8 Code : 28333-1 Heart Rate 1 : 76 bpm Height: 5'6" Weight: 228 lbs 11/24/2013 Blood Pressure 1: 146/64 Code : 8480-6 BMI: 35.5 Code : 59452-3 Heart Rate 1 : 64 bpm Height: 5'6" Weight: 220 lbs 08/22/2013 Weight: 223 lbs 07/28/2013 Blood Pressure 1: 112/68 Code : 8480-6 BMI: 36.2 Code : 25308-0 Heart Rate 1 : 80 bpm Height: 5'6" Weight: 224 lbs 06/16/2013 Blood Pressure 1: 132/60 Code : 8480-6 BMI: 37.6 Code : 61455-1 Heart Rate 1 : 72 bpm Height: 5'6" Weight: 233 lbs 01/22/2013 Blood Pressure 1: 130/64 Code : 8480-6 BMI: 37.3 Code : 50149-7 Heart Rate 1 : 80 bpm Height: 5'6" Weight: 231 lbs 10/02/2012 Blood Pressure 1: 146/90 Code : 8480-6 BMI: 36.8 Code : 46542-4 Heart Rate 1 : 60 bpm Height: [...] Code : 8480-6 BMI: 37.1 Code : 68899-5 Heart Rate 1 : 60 bpm Height: 5'6" Respiratory Rate: 16 bpm Weight: 230 lbs 12/20/2011 Blood Pressure 1: 142/66 Code : 8480-6 BMI: 35.8 Code : 72409-3 Heart Rate 1 : 66 bpm Height: [...] Code : 8480-6 BMI: 36.2 Code : 43083-7 Heart Rate 1 : 64 bpm Height: [...] None knee pain Quality intermittent 11/30/2015 seeing Chiki- gets Synvisc knee pain Alleviating Factors rest 11/30/2015 [...] None knee pain Quality intermittent 02/23/2015 seeing Kevin brown [facility] diabetes mellitus Test results HgbA1c level 7.6 [...] lesion Location on the right cheek 01/22/2013 protest[place] area edema Quality painful 01/22/2013 None edema [...] data Encounters Encounter Performer Location Codes Date ([id number]) 17076 EST. PATIENT, LEVEL IV Diagnosis: Type 2 diabetes mellitus without complications[ICD10: E11.9] Diagnosis: Chronic kidney disease, stage 3 (moderate)[ICD10: N18.3] Diagnosis: Essential (primary) hypertension[ICD10: I10] Diagnosis: Other vitamin B12 deficiency anemias[ICD10: D51.8] Chantell Garcia MD, [facility] CPT-4: 32820 05/07/2018 ([id number]) 95706 EST. PATIENT, LEVEL IV Diagnosis: Type 2 diabetes mellitus without complications[ICD10: E11.9] Diagnosis: Essential (primary) hypertension[ICD10: I10] Diagnosis: Chronic atrial fibrillation[ICD10: I48.2] Daisy Garcia MD, [facility] CPT-4: 98242 01/01/2018 [id number]) [id number] EST. 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 PATIENT, LEVEL IV Diagnosis: Type 2 diabetes mellitus with hyperglycemia[ICD10: E11.65] Diagnosis: Essential (primary) hypertension[ICD10: I10] Diagnosis: Pain in left knee[ICD10: M25.562] Diagnosis: Other vitamin B12 deficiency anemias[ICD10: D51.8] Daisy Garcia MD [facility] CPT-4: 77733 12/18/2017 [id number] EST. PATIENT, LEVEL III Diagnosis: Pain in left knee[ICD10: M25.562] Yady Garcia MD, [facility] CPT -4: 28463 12/13/2017 ([id number]) 36140 EST. PATIENT, LEVEL IV Diagnosis: Type 2 diabetes mellitus without complications[ICD10: E11.9] Diagnosis: Essential (primary) hypertension[ICD10: I10] Diagnosis: Other vitamin B12 deficiency anemias[ICD10: D51.8] Diagnosis: Allergic rhinitis due to animal (cat) (dog) hair and dander[ICD10: J30.81] Daisy Garcia MD, [facility] CPT-4: 48341 2016 ([id number]) 74439 EST. 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 PATIENT, LEVEL IV Diagnosis: Type 2 diabetes mellitus without complications[ICD10: E11.9] Diagnosis: Essential (primary) hypertension[ICD10: I10] Diagnosis: Chronic atrial fibrillation[ICD10: I48.2] Daisy Garcia MD, [facility] CPT-4: 55309 04/16/2017 ([id number]) 31702 EST. PATIENT, LEVEL III Diagnosis: Sciatica, left side[ICD10: M54.32] Diagnosis: Sacroiliitis, not elsewhere classified[ICD10: M46.1] Chantell Garcia MD, [facility] CPT-4: 03829 02/23/2017 ([id number]) 60509 EST. PATIENT, LEVEL IV Diagnosis: Type 2 diabetes mellitus without complications[ICD10: E11.9] Diagnosis: Essential (primary) hypertension[ICD10: I10] Daisy Garcia MD, [facility] CPT-4: 56779 12/26/2016 ([id number]) 54052 EST. PATIENT, LEVEL III Diagnosis: Cough[ICD10: R05] Diagnosis: Acute bronchitis, unspecified[ICD10: J20.9] Chantell Garcia MD, [facility] CPT-4: 31002 09/07/2016 ([id number]) 13574 EST. PATIENT, LEVEL IV Diagnosis: Type 2 diabetes mellitus without complications[ICD10: E11.9] Diagnosis: Cough[ICD10: R05] Diagnosis: Acute laryngopharyngitis[ICD10: J06.0] Diagnosis: Acute recurrent maxillary sinusitis[ICD10: J01.01] Daisy Garcia MD, [facility] CPT-4: 67142 08/29/2016 71231 EST. PATIENT, LEVEL IV Diagnosis: Other allergic rhinitis[ICD10: J30.89] Diagnosis: Other vitamin B12 deficiency anemias[ICD10: D51.8] Yady Garcia MD, [facility] CPT-4: 78933 06/12/2016 ([id number]) 34147 EST. PATIENT, LEVEL III Diagnosis: Urinary tract infection, site not specified[ICD10: N39.0] Diagnosis: Fever, unspecified[ICD10: R50.9] Diagnosis: Other vitamin B12 deficiency anemias[ICD10: D51.8] Chantell Garcia MD, [facility] CPT-4: 34069 05/04/2016 ([id number]) 89169 EST. 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 PATIENT, LEVEL IV Diagnosis: Type 2 diabetes mellitus with hyperglycemia[ICD10: E11.65] Diagnosis: Essential (primary) hypertension[ICD10: I10] Daisy Garcia MD, [facility] CPT-4: 56013 11/30/2015 ([id number]) 60108 EST. PATIENT, LEVEL III Diagnosis: Acute recurrent maxillary sinusitis[ICD10: J01.01] Diagnosis: Unspecified acute conjunctivitis, right eye[ICD10: H10.31] Diagnosis: Vitamin B12 deficiency anemia, unspecified[ICD10: D51.9] Chantell Garcia MD , [facility] CPT-4: 07866 09/06/2015 87029 EST. PATIENT, LEVEL III Diagnosis: Pain in right knee[ICD10: M25.561] Diagnosis: Essential (primary) hypertension[ICD10: I10] Diagnosis: Vitamin B12 deficiency anemia, unspecified[ICD10: D51.9] Yady Garcia MD, [facility] CPT-4: 98929 08/04/2015 ([id number]) 64329 EST. PATIENT, LEVEL III Diagnosis: Streptococcal pharyngitis[ICD10: J02.0] Diagnosis: Acute recurrent maxillary sinusitis[ICD10: J01.01] Chantell Garcia MD, [facility] CPT-4: 64238 07/05/2015 ([id number]) 10920 EST. PATIENT, LEVEL IV Diagnosis: Type 2 diabetes mellitus with hyperglycemia[ICD10: E11.65] Diagnosis: Essential (primary) hypertension[ICD10: I10] Diagnosis: Vitamin B12 deficiency anemia, unspecified[ICD10: D51.9] Daisy Garcia MD, [facility] CPT-4: 16784 06/28/2015 ([id number]) 75297 EST. PATIENT, LEVEL IV Diagnosis: DM W/O COMPLICATION TYPE II, UNCONTROLLED[ICD9: 250.02] Diagnosis: ESSENTIAL HYPERTENSION[ICD9: 401.9] Diagnosis: Iron deficiency[ICD9: 280.9] Diagnosis: OTH SCREENING MAMMOGRAM[ICD9: V76.12] Diagnosis: B12 deficiency[ICD9: 266.2] Daisy Garica MD, [facility] CPT- 4: 61546 02/23/2015 ([id number]) 53475 EST. PATIENT, LEVEL IV Diagnosis: DM W/O COMPLICATION TYPE II, UNCONTROLLED[ICD9: 250.02] Diagnosis: ESSENTIAL HYPERTENSION[ICD9: 401.9] Diagnosis: Right knee pain[ICD9: 719.46] Diagnosis: B12 deficiency[ICD9: 266.2] Chantell Garcia MD, [facility] CPT-4: 89970 01/08/2015 ([id number]) 26431 EST. PATIENT, LEVEL IV Diagnosis: DM W/O COMPLICATION TYPE II, UNCONTROLLED[ICD9: 250.02] Diagnosis: ESSENTIAL HYPERTENSION[ICD9: 401.9] Diagnosis: Iron deficiency[ICD9: 280.9] Daisy Garcia MD, [facility] CPT- 4: 42918 09/24/2014 ([id number]) 64451 EST. PATIENT, LEVEL III Diagnosis: Sacroiliitis[ICD9: 720.2] Diagnosis: Left sided sciatica[ICD9: 724.3] Chantell Garcia MD, [facility] CPT-4: 76618 05/11/2014 ([id number]) 35451 EST. PATIENT, LEVEL III Diagnosis: CELLULITIS OF BUTTOCK[ICD9: 682.5] Daisy Garcia MD, [facility] CPT-4: 96940 05/01/2014 68757 EST. PATIENT, LEVEL IV Diagnosis: ESSENTIAL HYPERTENSION[ICD9: 401.9] Diagnosis: DIABETES TYPE II[ICD9: 250.00] Diagnosis: Iron deficiency[ICD9: 280.9] Diagnosis: LUMBAGO[ICD9: 724.2] Daisy Garcia MD, [facility] CPT-4: 81630 04/03/2014 ([id number]) 14289 EST. PATIENT, LEVEL IV Diagnosis: ESSENTIAL HYPERTENSION[SNOMED: 70866415] Diagnosis: DIABETES TYPE II[SNOMED: 979663610] Diagnosis: ANEMIA[ICD9: 285.9] Diagnosis: Iron deficiency[ICD9: 280.9] Daisy Garcia MD, [facility] CPT- 4: 24678 11/24/2013 ([id number]) 95720 EST. PATIENT, LEVEL IV Diagnosis: ESSENTIAL HYPERTENSION[SNOMED: 97876268] Diagnosis: DIABETES TYPE II[SNOMED: 661898655] Diagnosis: EDEMA[ICD9: 782.3] Daisy Garcia MD, [facility] CPT-4: 49568 07/28/2013 ([id number]) 44089 EST. PATIENT, LEVEL IV Diagnosis: ESSENTIAL HYPERTENSION[SNOMED: 97938208] Diagnosis: DIABETES TYPE II[SNOMED: 376563989] Diagnosis: EDEMA[ICD9: 782.3] Diagnosis: B-COMPLEX DEFIC NEC[ICD9: 266.2] Daisy Garcia MD, [facility] CPT-4: 95704 06/16/2013 ([id number]) 56826 EST. PATIENT, LEVEL IV Diagnosis: ESSENTIAL HYPERTENSION[SNOMED: 53851104] Diagnosis: DIABETES TYPE II[SNOMED: 720268477] Diagnosis: EDEMA[ICD9: 782.3] Diagnosis: B-COMPLEX DEFIC NEC[ICD9: 266.2] Daisy Garcia MD, [facility] CPT-4: 50727 01/22/2013 ([id number]) 92252 EST. PATIENT, LEVEL III Diagnosis: Lumbago[ICD9: 724.2] Diagnosis: Sacroiliitis[ICD9: 720.2] Diagnosis: ESSENTIAL HYPERTENSION[SNOMED: 16477778] Daisy Garcia MD, [facility] CPT-4: 33051 10/02/2012 ([id number]) 32873 EST. PATIENT, LEVEL III Diagnosis: ACUTE URI[ICD9: 465.9] Daisy Garcia MD, [facility] CPT-4: 89363 08/06/2012 ([id number]) 22009 EST. PATIENT, LEVEL IV Diagnosis: ESSENTIAL HYPERTENSION[SNOMED: 69669354] Diagnosis: DIABETES TYPE II[SNOMED: 750378102] Diagnosis: ANEMIA[ICD9: 285.9] Daisy Garcia MD, [facility] CPT-4: 12542 07/04/2012 ([id number]) 80048 EST. PATIENT, LEVEL IV Diagnosis: ESSENTIAL HYPERTENSION[SNOMED: 15173007] Diagnosis: DIABETES TYPE II[SNOMED: 434798563] Diagnosis: B-COMPLEX DEFIC NEC[ICD9: 266.2] Daisy Garcia MD, [facility] CPT-4: 63180 05/22/2012 ([id number]) 37409 EST. PATIENT, LEVEL IV Diagnosis: ESSENTIAL HYPERTENSION[SNOMED: 75351487] Diagnosis: DIABETES TYPE II[SNOMED: 404067581] Diagnosis: LUMBAGO[ICD9: 724.2] Diagnosis: B-COMPLEX DEFIC NEC[ICD9: 266.2] Daisy Garcia MD, [facility] CPT-4: 74384 04/22/2012 19753 EST. PATIENT, LEVEL III Diagnosis: Sciatica of right side[ICD9: 724.3] Diagnosis: Sacroiliitis[ICD9: 720.2] Chantell Garcia MD, [facility] CPT-4: 03672 12/28/2011 ([id number]) 56665 EST. PATIENT, LEVEL IV Diagnosis: DIABETES TYPE II[SNOMED: 951154047] Diagnosis: ESSENTIAL HYPERTENSION[SNOMED: 63834254] Daisy Garcia MD, [facility] CPT-4: 67925 12/20/2011 ([id number]) 52037 EST. PATIENT, LEVEL IV Diagnosis: ESSENTIAL HYPERTENSION[SNOMED: 86229763] Diagnosis: DIABETES TYPE II[SNOMED: 734238843] Diagnosis: PAIN IN LIMB[ICD9: 729.5] Diagnosis: LUMBAGO[ICD9: 724.2] Diagnosis: Sacroiliitis[ICD9: 720.2] Daisy Garcia MD, [facility] CPT-4: 00389 08/23/2011 [id number] EST. PATIENT, LEVEL III Diagnosis: Sacroiliitis[ICD9: 720.2] Diagnosis: Right sided sciatica[ICD9: 724.3] Diagnosis: B-COMPLEX DEFIC NEC[ICD9: 266.2] [facility] CPT-4: 10074 05/23/2011 [id number] EST. PATIENT, LEVEL IV Diagnosis: DIABETES TYPE II[SNOMED: 912128661] Diagnosis: ESSENTIAL HYPERTENSION[SNOMED: 00280028] Diagnosis: Feces incontinence[ICD9: 787.60] [facility] CPT-4: 90995 04/26/2011 Plan of Care Planned Activity Notes Codes Status Date Appointment: Yady Harper WPtel: [address] [place], [place] [id number] (15 min) Moderate 05/29/2018 Patient Education: Patient [...] at home. 01/01/2018 [facility]ment[facility] [phone] [id number] [facility] Moderate 01/01/2018 Patient Education: Patient Medication Summary Completed 01/01/2018 Visit Plan: Apthous ulcer of mouth/mouth pain - I have recommended pt to start on magic mouth wash a 1:1:1 solution of carafate, nystatin, and benadryl for 5mL swish and swallow qid x 10 days - I have called this rx to [facility]. Rx for acyclovir sent to [facility] as well. Glenda is to call if the symptoms do not improve over the weekend. 12/27/2017 Appointment: Daisy Garcia [facility]el: [phone] [facility] ([facility] [place] Moderate 12/27/2017 Patient Education: Patient [...] in clinic. 12/18/2017 Appointment: Daisy Garcia WPtel: [facility] (15 min) Moderate 12/18/2017 Patient Education: Patient Medication Summary Completed 12/18/2017 Care Plan: COMPLETE CBC AUTOMATED LOINC : 47204-7 Pending 12/18/2017 Visit Plan: Left knee pain - will have pt use RICE - Rest, Ice, Compression, Elevation - will order x-ray - The pt is to use prn antiinflammatories to manage acute pain. The patient is to call the office if the pain is worsening or does not improve. 12/13/2017 Appointment: Yady Harper WPtel[facility] [place] (30 min) Complex 12/13/2017 Patient Education: Patient Medication Summary Completed 12/13/2017 Care Plan: X-RAY EXAM OF KNEE 3 LOINC : 30987-5 Pending 12/13/2017 Appointment: Injection 11/20/2017 Patient Education: Patient Medication Summary Completed 11/20/2017 Appointment: Daisy Garcia WPtel[facility] [place] (15 min) Moderate 09/18/2017 Appointment: Injection [...] shot today. 06/18/2017 Appointment: Daisy Garcia [facility]Ptel[facility] (15 min) Moderate 06/18/2017 Patient Education: Patient [...] 5 days 06/07/2017 Appointment: [facility]el[facility] [place] (15 min) Moderate 06/07/2017 Patient Education: Patient Medication Summary Completed 06/07/2017 Patient Education: Obesity Completed 06/07/2017 Appointment: Injection 05/09/2017 Patient Education: Patient Medication Summary Completed 05/09/2017 Appointment: Daisy [facility]el[facility] [place] (15 min) Moderate 04/26/2017 Patient Education: Patient [...] and cardizem 04/16/2017 Appointment: Daisy [facility]el[facility] [place] (15 min) Moderate 04/16/2017 Appointment: [facility]el[facility] [place] (15 min) Moderate 04/16/2017 Patient Education: [...] controlled. 12/26/2016 Appointment: [facility]el[facility] [place] (15 min) Moderate 12/26/2016 Patient Education: Patient Medication Summary Completed 12/26/2016 Appointment: Injection 11/14/2016 Patient Education: Patient Medication Summary Completed 11/14/2016 Visit Plan: Bronchitis - acute case of bronchitis identified. Pt has been given antibiotics, breathing treatments as appropriate, and pt has been instructed to call if symptoms are not improved, or if symptoms acutely worsen. 09/07/2016 Appointment: Chantell Singh WPtel: [phone] [phone] [place] (30 min) Complex 09/07/2016 Patient Education: [...] improvement. 08/29/2016 Appointment: Daisy [facility]Ptel[facility] [place] (15 min) Moderate 08/29/2016 Patient Education: Patient Medication Summary Completed 08/29/2016 Patient Education: Obesity Completed 08/29/2016 Appointment: Daisy [facility]el[facility] [place] (15 min) Moderate 08/22/2016 Appointment: Daisy Garcia WPtel: 101 [facility] [place] (15 min) Moderate 08/02/2016 Appointment: Chantell Singh WPtel: [address] [phone] (30 min) Complex 08/02/2016 Visit Plan: Allergies [...] spray. 06/12/2016 Appointment: Yady Harper WPtel: [address] [facility] (15 min) Moderate 06/12/2016 Patient Education: Patient [...] office 05/04/2016 Appointment: Chantell Singh WPtel: [address] [phone] (15 min) Moderate 05/04/2016 Patient Education: Patient [...] triamcinalone cream. 03/30/2016 Appointment: [facility] [place] (15 min) Moderate 03/30/2016 Patient Education: Patient Medication Summary Completed 03/30/2016 Patient Education: Hypertension Completed 03/30/2016 Appointment: Injection 03/17/2016 Patient Education: Patient Medication Summary Completed 03/17/2016 Appointment: Injection 02/15/2016 Patient Education: Patient Medication Summary Completed 02/15/2016 Appointment: Daisy [facility]el[facility] [place] (15 min) Moderate 01/26/2016 Appointment: Injection [...] concerns. 11/30/2015 Appointment: Daisy Garcia [facility]Ptel[facility] [place] (15 min) Moderate 11/30/2015 Patient Education: Patient Medication Summary Completed 11/30/2015 Patient Education: Obesity Completed 11/30/2015 Appointment: Daisy Garcia WPtel[facility] [place] (15 min) Moderate 10/26/2015 Visit Plan: Sinusitis [...] at home. 06/28/2015 Appointment: Daisy Garcia WPtel: [address] [place] [address] (15 min) Moderate 06/28/2015 Patient Education: Patient [...] walk 100 feet without resting. 02/23/2015 Appointment: JoseDaisy WPtel: [facility] Follow up 02/23/2015 Patient Education: Patient Medication Summary Completed 02/23/2015 Patient Education: Hypertension Completed 02/23/2015 Care Plan: SCREENINGMAMMOGRAPHYDIGITAL LOINC : 26145-7 Ordered 02/23/2015 Visit Plan: Depression - uncontrolled [...] Care Plan: COMPLETE CBC AUTOMATED LOINC : 19189-9 Ordered 01/08/2015 Appointment: Injection 12/08/2014 Patient Education: [...] and diarrhea. 09/24/2014 Appointment: Daisy Garcia WPtel: 101 [facility] Follow up 09/24/2014 Patient Education: Patient Medication Summary Completed 09/24/2014 Patient Education: Hypertension Completed 09/24/2014 Appointment: Daisy Garcia WPtel: [phone] [facility] [place] Injection 08/24/2014 Patient Education: Patient Medication [...] warmth, discharge. 05/01/2014 Appointment: [phone] Follow up 05/01/2014 Patient Education: Patient Medication Summary Completed 05/01/2014 Appointment: Daisy [facility]Ptel[phone] [place] Injection 04/27/2014 Patient Education: Patient Medication [...] for pain 04/03/2014 Appointment: Chantell Singh WPtel: [facility] [place] Follow up 04/03/2014 Patient Education: Patient Medication Summary Completed 04/03/2014 Patient Education: Hypertension Completed 04/03/2014 Visit Plan: vitamin b12 injection 03/24/2014 Appointment: Daisy Garcia WPtel: [facility] [place] Injection 03/24/2014 Patient Education: Patient Medication Summary Completed 03/24/2014 Appointment: Daisy Garcia WPtel: [facility] [place] Follow up 03/23/2014 Appointment: Daisy Garcia WPtel: [facility] [place] Injection 02/24/2014 Patient Education: Patient Medication Summary Completed 02/24/2014 Appointment: Chantell Singh WPtel: [facility] [place] Injection 01/09/2014 Patient Education: Patient [...] oral supplementation. 11/24/2013 Appointment: Daisy Garcia WPtel: [address] [place], [place] [id number] [place] Follow up 11/24/2013 Patient Education: Patient Medication Summary Completed 11/24/2013 Patient Education: Hypertension Completed 11/24/2013 Appointment: Daisy Gracia WPtel: [address] [place] [address] [place] Follow up 11/12/2013 Appointment: Daisy Garcia WPtel: [facility] [place] Follow up 10/27/2013 Appointment: Chantell Singh WPtel: [address] [place] [address] [place] Injection 09/18/2013 Patient Education: Patient Medication Summary Completed 09/18/2013 Appointment: Chantell Singh WPtel: [facility] [place] Injection 08/22/2013 Patient Education: Patient [...] today 07/28/2013 Appointment: Daisy Garcia [facility]Ptel[facility] Follow up 07/28/2013 Patient Education: Patient Medication Summary Completed 07/28/2013 Patient Education: Hypertension Completed 07/28/2013 Appointment: Chantell Singh [facility]Ptel: [facility] [facility] [place] Injection 06/20/2013 Visit Plan: Diabetes [...] edema. 06/16/2013 Appointment: Daisy Garcia [facility]Ptel[facility] [place] Follow up 06/16/2013 Patient Education: Patient Medication Summary Completed 06/16/2013 Patient Education: Hypertension Completed 06/16/2013 Appointment: Chantell Singh [facility]Ptel: [facility] [facility] [place] Injection 05/21/2013 Patient Education: Patient Medication Summary Completed 05/21/2013 Appointment: Daisy Garcia [facility]Ptel: [facility] [place] Injection 04/23/2013 Patient Education: Patient Medication Summary Completed 04/23/2013 Appointment: Daisy Garcia WPtel: 1015 [facility] [place] Injection 03/24/2013 Patient Education: Patient Medication Summary Completed 03/24/2013 Appointment: Daisy Garcia [facility]Ptel: [facility] [place] Injection 02/20/2013 Patient Education: Patient Medication [...] edema. 01/22/2013 Appointment: Daisy Garcia [facility]Ptel[facility] [place] Follow up 01/22/2013 Patient Education: Patient Medication Summary Completed 01/22/2013 Patient Education: Hypertension Completed 01/22/2013 Appointment: Daisy [facility]Ptel[facility] [place] Injection 01/21/2013 Patient Education: Patient Medication Summary Completed 12/19/2012 Appointment: Daisy [facility]Ptel[facility] [place] Injection 11/22/2012 Appointment: Daisy [facility]Ptel: [facility] [place] Injection 11/20/2012 Patient Education: Patient Medication Summary Completed 11/20/2012 Appointment: Chantell Singh [facility]Ptel: [facility] [facility] [place] Injection 11/08/2012 Appointment: Daisy Garcia [facility]Ptel[facility] [place] Injection 10/23/2012 Patient Education: Patient Medication [...] Completed 10/02/2012 Appointment: Chantell Singh [facility]Ptel: [phone] [place] Lab Draw 09/16/2012 Patient Education: Patient Medication [...] office. 08/06/2012 Appointment: Chantell Singh WPtel: 1013 [phone] Sick 08/06/2012 Patient Education: Patient Medication Summary Completed 08/06/2012 Patient Education: Patient Medication Summary Completed 07/19/2012 Visit Plan: Joint Injection - Pt was given post - injection instructions. The pt has been advised to use antiinflammatories post injection today, ice to the injected site, call if redness, warmth, or increased pain occurs at the site of injection. 07/10/2012 Appointment: Daisy Garcia WPtel: [facility] [place] Injection 07/10/2012 Patient Education: Patient Medication [...] less controlled. 07/04/2012 Appointment: Daisy Garcia WPtel: 1010 [facility] Follow up 07/04/2012 Patient Education: Patient Medication Summary Completed 07/04/2012 Patient Education: Hypertension Completed 07/04/2012 Appointment: Daisy [facility]Ptel[facility] [place] Injection 06/19/2012 Patient Education: Patient Medication [...] the office. 05/22/2012 Appointment: Chantell Singh [facility]Ptel: [facility] Follow up 05/22/2012 Appointment: Chantell Singh WPtel: [facility] Follow up 05/22/2012 Patient Education: Patient [...] office 04/22/2012 Appointment: Chantell Singh WPtel: 101[address] [phone] Established Patient Preventative visit 04/22/2012 Patient Education: Patient Medication Summary Completed 04/22/2012 Patient Education: High Blood Pressure: Essential Hypertension Completed 2011 Appointment: Chantell Singh WPtel: [address] [phone] [place] Injection 03/19/2012 Patient Education: Patient Medication Summary Completed 03/19/2012 Appointment: Daisy [facility]Ptel[facility] [place] Injection 02/15/2012 Patient Education: Patient Medication Summary Completed 02/15/2012 Appointment: Daisy [facility]Ptel[facility] [place] Injection 01/18/2012 Patient Education: Patient Medication [...] worse. 12/28/2011 Appointment: Chantell Singh [facility]Ptel: [facility] [place] Other 12/28/2011 Patient Education: Patient [...] shot today. 12/20/2011 Appointment: Daisy Garcia [facility]Ptel[facility] [place] Other 12/20/2011 Patient Education: Patient Medication Summary Completed 12/20/2011 Patient Education: High Blood Pressure: Essential Hypertension Completed 2011 Appointment: Chantell Singh WPtel: [address] [phone] [place] Injection 11/07/2011 Patient Education: Patient Medication Summary Completed 11/07/2011 Appointment: Daisy [facility]el[facility] [place] Injection 10/03/2011 Patient Education: Patient Medication Summary Completed 10/03/2011 Appointment: Daisy [facility]Ptel[facility] [place] Injection 08/28/2011 Visit Plan: Hypertension - [...] today 08/23/2011 Appointment: Daisy Garcia WPtel: 1015 [facility] Other 08/23/2011 Patient Education: Patient Medication Summary Completed 08/23/2011 Patient Education: High Blood Pressure: Essential Hypertension Completed 2011 Appointment: Chantell Singh WPtel: [address] [phone] [place] Injection 07/28/2011 Patient Education: Patient Medication Summary Completed 07/28/2011 Visit Plan: b12 injection 06/29/2011 Appointment: Chantell Singh WPtel: [address] [phone] [place] Injection 06/29/2011 Patient Education: Patient Medication [...] the office 05/23/2011 Appointment: Chantell Singh WPtel: [phone] Other 05/23/2011 Patient Education: Patient Medication Summary [...] DAILY IRON. 04/26/2011 Appointment: Daisy Garcia WPtel: [facility] [place] 04/26/2011 Patient Education: Patient Medication Summary Completed 04/26/2011 Instructions Comment . Sacroilitis with sciatica-discussed natural and expected [...] been appropriately prescribed for this patient. . Left knee pain - will have pt use RICE - Rest, Ice, Compression, Elevation - will order x-ray - The pt is to use prn antiinflammatories to manage acute pain. The patient is to call the office if the pain is worsening or does not improve. . flu shot today b12 shot today . Hypertension - well controlled - [...] or other concerns. Patient verbalized understanding. . Diabetes Mellitus - controlled - per [...] levels of control. check labs today . Sacroiliitis -right SI joint injection today [...] do not improve or if they worsen. hold lipitor x 2 weeks - and [...] going to schedule surgery with him. . Cellulitis - continue with oral antibiotics as previously directed, return to clinic as previously directed, call for acute change in symptoms, worsening redness, warmth, discharge. . Apthous ulcer of mouth/mouth pain - I have recommended pt to start on magic mouth wash a 1:1:1 solution of carafate, nystatin, and benadryl for 5mL swish and swallow qid x 10 days - I have called this rx to [facility]. Rx for acyclovir sent to [facility] as [...] able. Vitamin B12 deficiency - shot today. . URI-cough- Pt advised to increase fluids, [...] medication. Kenalog injection today in the office. Once pt runs out of whistleBoxmakenzie, she is to start on victoza at [...] has been VERY well controlled on the [employer] and has been with great diabetic control on the [employer]. Once pt runs out of whistleBoxmakenzie, she is to start on victoza at [...] GI upset with nausea and diarrhea. . Allergies - chronic - recommended pt [...] do not improve or if they worsen. Increase lisinopril to 40mg po daily Monitor [...] home. B12 shot today. . Hypertension - elevated today in the [...] B12 injection today in the office. . vitamin b12 deficiency - shot given [...] if symptoms do not show improvement. . Joint Injection - Pt was given [...] deficiency-B12 injection today in the office . Hypertension [...]
--- OUTSIDE RECORDS SUMMARY | 2018-07-17 07:16 | XMS REPORT | CCD ---
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 Name Role Phone Daisy Garcia PP Unavailable CCM Unavailable Summary Purpose Interface Exchange Insurance Providers Payer name Policy type / Coverage type Covered libertarian ID Effective Begin Date Effective End Date WPS Medicare Part B Medicare Part B [id number] Unknown AETNA Medicare Part B [id number] Unknown Family history Sister Diagnosis Age At Onset Stroke Unknown Hypertension Unknown Diabetes Unknown Mother Diagnosis Age At Onset Diabetes Unknown Son Diagnosis Age At Onset Hypertension Unknown Daughter Diagnosis Age At Onset Hypertension Unknown Father Diagnosis Age At Onset No Family Disease Entered N/A Social History Social History Element Codes Description Effective Dates Living arrangements Unknown House 04/26/2011 Number of adults in household Unknown 2 04/26/2011 Education level Unknown College Graduate 04/26/2011 Marital status Unknown 04/21/2011 Number of children Unknown 2 1 son, 1 daughter 04/21/[address]: 556158967 Nonsmoker 04/21/[address]: 343691582 Never drinks alcohol 04/21/2011 Has the patient ever used illegal drugs? Unknown Has never used illegal drugs 04/21/2011 Allergies, Adverse Reactions, Alerts Allergies, Adverse Reactions, Alerts data not found Past Medical History Illness Codes Condition Status Onset Date Resolved Date Vitamin B12 deficiency anemia, unspecified ICD-9: 281.1 ICD-10: D51.9 Active 02/14/2016 Unknown Other vitamin B12 deficiency anemias ICD-9: 281.1 ICD-10: D51.8 Active 06/11/2016 Unknown Allergic rhinitis due to animal (cat) (dog) hair and dander ICD-9: 477.8 ICD-10: J30.81 Active 06/18/2017 Unknown Essential (primary) hypertension ICD-9: 401.9 ICD-10: I10 Active 04/03/2014 Unknown Type 2 diabetes mellitus without complications ICD-9: 250.00 ICD-10: E11.9 Active 08/29/2016 Unknown 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 Active 06/07/2017 Unknown Spontaneous ecchymoses ICD-9: 782.7 ICD-10: R23.3 Active 06/07/2017 Unknown Encounter for immunization ICD-9: V03.9 ICD-10: Z23 Active 04/25/2017 Unknown Chronic atrial fibrillation ICD-9: 427.31 ICD-10: I48.2 Active 04/16/2017 Unknown Sacroiliitis, not elsewhere classified ICD-9: 720.2 [...] Unknown LUMBAGO ICD-9: 724.2 Active 04/03/2014 Unknown VACCIN FOR INFLUENZA ICD-9: V04.81 ICD-10: Z23 Active 04/03/2014 Unknown B-COMPLEX DEFIC NEC ICD-9: [...] Problems Condition Codes Effective Dates Condition Status Vitamin B12 deficiency anemia, unspecified ICD-9: 281.1 ICD-10: D51.9 02/14/2016 Active Other vitamin B12 deficiency anemias ICD-9: 281.1 ICD-10: D51.8 06/11/2016 Active Allergic rhinitis due to animal (cat) (dog) hair and dander ICD-9: 477.8 ICD-10: J30.81 06/18/2017 Active Essential (primary) hypertension ICD-9: 401.9 ICD-10: I10 04/03/2014 Active Type 2 diabetes mellitus without complications ICD-9: 250.00 ICD-10: E11.9 08/29/2016 Active 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 06/07/2017 Active Spontaneous ecchymoses ICD-9: 782.7 ICD-10: R23.3 06/07/2017 Active Encounter for immunization ICD-9: V03.9 ICD-10: Z23 04/25/2017 Active Chronic atrial fibrillation ICD-9: 427.31 ICD-10: I48.2 04/16/2017 Active Sacroiliitis, not elsewhere classified ICD-9: 720.2 [...] 04/03/2014 Active LUMBAGO ICD-9: 724.2 04/03/2014 Active VACCIN FOR INFLUENZA ICD-9: V04.81 ICD-10: Z23 04/03/2014 Active B-COMPLEX DEFIC NEC ICD-9: 266.2 [...] Start Date Stop Date Status Fill Instructions cyanocobalamin (vit B-12) 1,000 mcg/mL injection solution RxNorm: 980539 1 Milliliter(s) Inj 08/21/2017 08/21/2017 Inactive Synthroid 50 mcg tablet RxNorm: 938639 TAKE ONE TABLET BY MOUTH EVERY DAY. 08/15/2017 10/13/2017 Active metformin ER 500 mg tablet,extended release 24 hr RxNorm: 099210 TAKE TWO TABLETS BY MOUTH TWICE A DAY 07/31/20172017 Active Tricor 145 mg tablet RxNorm: 039608 TAKE ONE TABLET BY MOUTH DAILY 07/31/2017 11/27/2017 Active spironolactone 25 mg tablet RxNorm: 360238 TAKE ONE TABLET BY MOUTH TWICE A DAY 07/31/2017 07/25/2018 Active Tenex 1 mg tablet RxNorm: 911365 TAKE ONE TABLET BY MOUTH DAILY 07/20/2017 01/15/2018 Active cyanocobalamin (vit B-12) 1,000 mcg/mL injection solution RxNorm: 342382 1 Milliliter(s) Inj 07/18/2017 07/18/2017 Inactive Byetta 10 mcg/dose(250 mcg/mL)2.4 mL subcutaneous pen injector RxNorm: 638006 INJECT 10 MCG UNDER THE SKIN TWO TIMES A DAY ( START AFTER 5 MCG DOSE IS COMPLETE ) 06/18/2017 04/13/2018 Active potassium chloride ER 20 mEq tablet,extended release(part/ cryst) RxNorm: 6034930 TAKE ONE TABLET BY MOUTH DAILY WHEN YOU TAKE LASIX (FUROSEMIDE) 06/18/2017 09/15/2017 Active Flonase Allergy Relief 50 mcg/actuation nasal spray, suspension RxNorm: 1241693 1 [place] NASAL BID 06/18/20172017 Active Kenalog 40 mg/mL suspension for injection RxNorm: 3360538 1 Milliliter(s) Inj 06/18/2017 06/18/2017 Inactive cyanocobalamin (vit B-12) 1,000 mcg/mL injection solution RxNorm: 674570 1 Milliliter(s) Inj 06/18/2017 06/18/2017 Inactive Lasix 20 mg tablet RxNorm: 010828 Tablet(s) TAKE ONE TABLET BY MOUTH EVERY DAY NEEDED FOR SWELLING. TAKE POTASSIUM WITH EACH DOSE 201610/02/2017 Active cyanocobalamin (vit B-12) 1,000 mcg/mL injection solution RxNorm: 371087 1 Milliliter(s) Inj 05/09/2017 05/09/2017 Inactive cyanocobalamin (vit B-12) 1,000 mcg/mL injection solution RxNorm: 387954 1 Milliliter(s) Inj 04/04/2017 04/04/2017 Inactive metformin ER 500 mg tablet,extended release 24 hr RxNorm: 069407 TAKE TWO TABLETS BY MOUTH TWICE A DAY 03/01/20172016 Inactive Kenalog 40 mg/mL suspension for injection RxNorm: 4033541 1 Milliliter(s) Inj 02/23/2017 02/23/2017 Inactive amlodipine 5 mg tablet RxNorm: 842883 TAKE ONE TABLET BY MOUTH TWICE A DAY 02/22/2017 11/18/2017 Active glipizide 10 mg tablet RxNorm: 221799 TAKE ONE TABLET BY MOUTH TWICE A DAY 02/12/2017 08/10/2017 Inactive cyanocobalamin (vit B-12) 1,000 mcg/mL injection solution RxNorm: 209245 Milliliter(s) Inj 01/23/2017 01/23/2017 Inactive Synthroid 50 mcg tablet RxNorm: 842508 TAKE ONE TABLET BY MOUTH EVERY DAY. 12/21/2016 06/18/2017 Inactive potassium chloride ER 20 mEq tablet,extended release(part/ cryst) RxNorm: 7778507 TAKE ONE TABLET BY MOUTH DAILY WHEN YOU TAKE LASIX (FUROSEMIDE) 12/21/2016 04/19/2017 Inactive Tricor 145 mg tablet RxNorm: 404752 TAKE ONE TABLET BY MOUTH DAILY 12/21/2016 06/06/2017 Inactive Lasix 20 mg tablet RxNorm: 986381 TAKE ONE TABLET BY MOUTH EVERY DAY NEEDED FOR SWELLING. TAKE POTASSIUM WITH EACH DOSE 12/11/2016 04/09/2017 Inactive cyanocobalamin (vit B-12) 1,000 mcg/mL injection solution RxNorm: 154227 1 Milliliter(s) Inj 11/14/2016 11/14/2016 Inactive simvastatin 20 mg tablet RxNorm: 315395 TAKE ONE TABLET BY MOUTH EVERY NIGHT AT BEDTIME 10/23/2016 04/15/2017 Inactive Tenex 1 mg tablet RxNorm: 793491 TAKE ONE TABLET BY MOUTH DAILY 10/16/2016 11/14/2016 Inactive glipizide 10 mg tablet RxNorm: 097511 TAKE ONE TABLET BY MOUTH TWICE A DAY 09/20/2016 02/11/2017 Inactive doxycycline hyclate 100 mg capsule RxNorm: 7075934 1 Capsule(s) PO BID 09/12/2016 09/18/2016 Inactive doxycycline hyclate 100 mg capsule RxNorm: 3195661 1 Capsule(s) PO BID 09/12/2016 09/11/2016 Inactive Phenergan with Codeine Syrup RxNorm: 5-10 Milliliter(s) PO Q6 PRN 09/07/2016 No Stop Date Active prednisone 20 mg tablet RxNorm: 914295 1 Tablet(s) PO BID 09/0709/11/2016 Inactive Kenalog 40 mg/mL suspension for injection RxNorm: 2719065 1 Milliliter(s) Inj 09/07/2016 09/07/2016 Inactive Tessalon Perles 100 mg capsule RxNorm: 406209 1 Capsule(s) PO TID PRN 09/01/2016 09/20/2016 Inactive Zyrtec 10 mg capsule RxNorm: 9027699 1 Capsule(s) PO daily 03/26/2017 Inactive Flonase Allergy Relief 50 mcg/actuation nasal spray, suspension RxNorm: 5405331 1 [place] NASAL BID 08/29/20162016 Inactive cyanocobalamin (vit B-12) 1,000 mcg/mL injection solution RxNorm: 900784 1 Milliliter(s) Inj 08/29/2016 08/29/2016 Inactive metformin ER 500 mg tablet,extended release 24 hr RxNorm: 137704 Tablet(s) TAKE TWO TABLETS BY MOUTH TWICE A DAY 08/28/2016 02/23/2017 Inactive Lopressor 100 mg tablet RxNorm: 694013 TAKE ONE TABLET BY MOUTH DAILY 06/27/2016 04/15/2017 Inactive cetirizine 10 mg tablet RxNorm: 8433298 1 Tablet(s) PO daily 07/11/2016 Inactive Flonase Allergy Relief 50 mcg/actuation nasal spray, suspension RxNorm: 7032694 1 [place] NASAL BID 06/12/20162016 Inactive cyanocobalamin (vit B-12) 1,000 mcg/mL injection solution RxNorm: 727609 Milliliter(s) Inj 06/12/2016 06/12/2016 Inactive spironolactone 25 mg tablet RxNorm: 020816 TAKE ONE TABLET BY MOUTH TWICE A DAY 06/06/2016 03/02/2017 Inactive Request already responded to by other means (e.g. phone or fax) spironolactone 25 mg tablet RxNorm: 877189 Tablet(s) TAKE ONE TABLET BY MOUTH TWICE A DAY 05/29/2016 06/05/2016 Inactive ceftriaxone 500 mg solution for injection RxNorm: 4596262 2 Milliliter(s) Inj 05/04/2016 05/04/2016 Inactive cyanocobalamin (vit B-12) 1,000 mcg/mL injection solution RxNorm: 189082 Milliliter(s) Inj 05/04/2016 05/04/2016 Inactive Cipro 500 mg tablet RxNorm: 669185 1 Tablet(s) PO BID 201505/10/2016 Inactive OneTouch Ultra Test strips RxNorm: TEST DAILY 04/24/2016 04/18/2017 Inactive Byetta 10 mcg/dose(250 mcg/mL)2.4 mL subcutaneous pen injector RxNorm: 177909 INJECT 10 MCG UNDER THE SKIN TWO TIMES A DAY ( START AFTER 5 MCG DOSE IS COMPLETE ) 04/18/2016 03/13/2017 Inactive Lasix 20 mg tablet RxNorm: 888312 TAKE ONE TABLET BY MOUTH EVERY DAY NEEDED FOR SWELLING. TAKE POTASSIUM WITH EACH DOSE 04/07/2016 09/03/2016 Inactive potassium chloride ER 20 mEq tablet,extended release(part/ cryst) RxNorm: 6081112 TAKE ONE TABLET BY MOUTH DAILY WHEN YOU TAKE LASIX (FUROSEMIDE) 04/07/2016 09/03/2016 Inactive triamcinolone acetonide 0.5 % topical cream RxNorm: 8412887 1 Application TOP BID to lesions on buttock 03/30/20162015 Inactive metformin ER 500 mg tablet,extended release 24 hr RxNorm: 632075 TAKE TWO TABLETS BY MOUTH TWICE A DAY 03/23/20162016 Inactive glipizide 10 mg tablet RxNorm: 995004 TAKE ONE TABLET BY MOUTH TWICE A DAY 03/17/2016 11/11/2016 Inactive Request already responded to by other means (e.g. phone or fax) cyanocobalamin (vit B-12) 1,000 mcg/mL injection solution RxNorm: 823035 Milliliter(s) Inj 03/17/2016 03/17/2016 Inactive glipizide 10 mg tablet RxNorm: 455950 Tablet(s) TAKE ONE TABLET BY MOUTH TWICE A DAY 03/13/2016 03/16/2016 Inactive Tricor 145 mg tablet RxNorm: 935451 TAKE ONE TABLET BY MOUTH ONCE A DAY 02/18/2016 02/11/2017 Inactive Request already responded to by other means (e.g. phone or fax) amlodipine 5 mg tablet RxNorm: 456152 TAKE ONE TABLET BY MOUTH TWICE A DAY 02/18/2016 08/15/2016 Inactive Request already responded to by other means (e.g. phone or fax) cyanocobalamin (vit B-12) 1,000 mcg/mL injection solution RxNorm: 386452 1 Milliliter(s) Inj 02/15/2016 02/15/2016 Inactive amlodipine 5 mg tablet RxNorm: 691816 Tablet(s) TAKE ONE TABLET BY MOUTH TWICE A DAY 02/14/2016 02/17/2016 Inactive Tricor 145 mg tablet RxNorm: 868684 1 Tablet(s) PO daily TAKE ONE TABLET BY MOUTH ONCE A DAY 02/14/2016 02/17/2016 Inactive Synthroid 50 mcg tablet RxNorm: 036675 TAKE ONE TABLET BY MOUTH EVERY DAY. 01/31/2016 08/27/2016 Inactive hydrocodone 5 mg-acetaminophen 325 mg tablet RxNorm: 732085 1-2 Tablet(s) PO Q4 PRN as needed pain 01/28/2016 No Stop Date Active cyanocobalamin (vit B-12) 1,000 mcg/mL injection solution RxNorm: 228346 Milliliter(s) Inj 01/19/2016 01/19/2016 Inactive metformin ER 500 mg tablet,extended release 24 hr RxNorm: 919230 TAKE TWO TABLETS BY MOUTH TWICE A DAY 01/18/20162015 Inactive cyanocobalamin (vit B-12) 1,000 mcg/mL injection solution RxNorm: 821188 1 Milliliter(s) Inj 12/07/2015 12/07/2015 Inactive metformin ER 500 mg tablet,extended release 24 hr RxNorm: 129207 TAKE TWO TABLETS BY MOUTH TWICE A DAY 10/18/20152015 Inactive simvastatin 20 mg tablet RxNorm: 632327 1 Tablet(s) PO QHS TAKE ONE TABLET BY MOUTH AT BEDTIME 10/08/2015 10/01/2016 Inactive Tenex 1 mg tablet RxNorm: 002564 TAKE ONE TABLET BY MOUTH DAILY 10/04/2015 09/27/2016 Inactive Lopressor 100 mg tablet RxNorm: 010177 TAKE ONE TABLET BY MOUTH DAILY 09/20/2015 06/15/2016 Inactive Diflucan 150 mg tablet RxNorm: 600214 1 Tablet(s) PO daily 02/201609/12/2015 Inactive cyanocobalamin (vit B-12) 1,000 mcg/mL injection kit RxNorm: 043436 kit Inj 09/06/2015 09/06/2015 Inactive gentamicin 0.3 % eye drops RxNorm: 559095 2 Drop(s) OPH QID 02/201609/12/2015 Inactive ceftriaxone 500 mg solution for injection RxNorm: 8607698 Inj 09/06/2015 09/06/2015 Inactive Keflex 500 mg capsule RxNorm: 927831 1 Capsule(s) PO TID 201509/12/2015 Inactive hydrocodone 5 mg-acetaminophen 325 mg tablet RxNorm: 440401 1-2 Tablet(s) PO Q4 PRN as needed pain 08/09/2015 01/27/2016 Inactive Lortab 5 mg-500 mg tablet RxNorm: 621813 1-2 Tablet(s) PO Q4 PRN as needed pain 08/03/2015 08/08/2015 Inactive Diflucan 150 mg tablet RxNorm: 891793 1 Tablet(s) PO daily 07/16/2015 Inactive Lasix 20 mg tablet RxNorm: 152445 TAKE ONE TABLET BY MOUTH EVERY DAY NEEDED FOR SWELLING. TAKE POTASSIUM WITH EACH DOSE 07/13/2015 01/08/2016 Inactive spironolactone 25 mg tablet RxNorm: 270440 TAKE ONE TABLET BY MOUTH TWICE A DAY 07/13/2015 05/07/2016 Inactive potassium chloride ER 20 mEq tablet,extended release(part/ cryst) RxNorm: 023395 TAKE ONE TABLET BY MOUTH DAILY WHEN YOU TAKE LASIX (FUROSEMIDE) 07/13/2015 01/08/2016 Inactive Tessalon Perles 100 mg capsule RxNorm: 667594 1 Capsule(s) PO TID PRN 07/05/2015 08/31/2016 Inactive Keflex 500 mg capsule RxNorm: 222900 1 Capsule(s) PO TID 201407/14/2015 Inactive Kenalog 40 mg/mL suspension for injection RxNorm: 7805093 Milliliter(s) Inj 07/05/2015 07/05/2015 Inactive ceftriaxone 500 mg solution for injection RxNorm: 1271811 Inj 07/05/2015 07/05/2015 Inactive cyanocobalamin (vit B-12) 1,000 mcg/mL injection solution RxNorm: 457479 Milliliter(s) Inj 06/28/2015 06/28/2015 Inactive Synthroid 50 mcg tablet RxNorm: 432119 TAKE ONE TABLET BY MOUTH EVERY DAY. 06/21/2015 11/17/2015 Inactive metformin ER 500 mg tablet,extended release 24 hr RxNorm: 937178 TAKE TWO TABLETS BY MOUTH TWICE A DAY 06/14/20152015 Inactive glipizide 10 mg tablet RxNorm: 093169 TAKE ONE TABLET BY MOUTH TWICE A DAY 05/31/2015 02/24/2016 Inactive cyanocobalamin (vit B-12) 1,000 mcg/mL injection solution RxNorm: 359308 Milliliter(s) Inj 05/13/2015 05/13/2015 Inactive Tricor 145 mg tablet RxNorm: 177243 1 Tablet(s) PO daily TAKE ONE TABLET BY MOUTH ONCE A DAY 05/07/2015 05/06/2015 Inactive Tricor 145 mg tablet RxNorm: 822340 1 Tablet(s) PO daily TAKE ONE TABLET BY MOUTH ONCE A DAY 05/07/2015 01/31/2016 Inactive Tricor 145 mg tablet RxNorm: 393371 TAKE ONE TABLET BY MOUTH ONCE A DAY 05/06/2015 05/06/2015 Inactive Byetta 10 mcg/dose(250 mcg/mL)2.4 mL subcutaneous pen injector RxNorm: 785537 Microgram(s) SQ 10mcg twice daily ( start after 5mcg dose is complete) 04/01/2015 03/25/2016 Inactive Byetta 5 mcg/dose (250 mcg/mL)1.2 mL subcutaneous pen injector RxNorm: 380634 Microgram(s) SQ 5mcg twice daily x 1 month 03/04/2015 04/02/2015 Inactive Byetta 10 mcg/dose(250 mcg/mL)2.4 mL subcutaneous pen injector RxNorm: 596791 Microgram(s) SQ 10mcg twice daily ( start after 5mcg dose is complete) 03/04/2015 03/31/2015 Inactive Byetta 5 mcg/dose (250 mcg/mL)1.2 mL subcutaneous pen injector RxNorm: 426154 Microgram(s) SQ 5mcg twice daily x 1 month 03/04/2015 03/03/2015 Inactive Byetta 10 mcg/dose(250 mcg/mL)2.4 mL subcutaneous pen injector RxNorm: 227851 Microgram(s) SQ 10mcg twice daily ( start after 5mcg dose is complete) 03/04/2015 03/03/2015 Inactive cyanocobalamin (vit B-12) 1,000 mcg/mL injection solution RxNorm: 234836 Milliliter(s) Inj 02/23/2015 02/23/2015 Inactive cyanocobalamin (vit B-12) 1,000 mcg/mL injection solution RxNorm: 908115 Milliliter(s) Inj 01/08/2015 01/08/2015 Inactive simvastatin 20 mg tablet RxNorm: 701799 TAKE ONE TABLET BY MOUTH AT BEDTIME 01/07/2015 10/03/2015 Inactive Lortab 5 mg-500 mg tablet RxNorm: 529862 1-2 Tablet(s) PO Q4 PRN as needed q 4- 6hrs prn pain 12/15/2014 08/02/2015 Inactive Lortab 5 mg-500 mg tablet RxNorm: 462991 1-2 Tablet(s) PO Q4 PRN as needed q 4- 6hrs prn pain 12/15/2014 08/02/2015 Inactive amlodipine 5 mg tablet RxNorm: 088706 TAKE ONE TABLET BY MOUTH TWICE A DAY 12/14/2014 12/13/2014 Inactive amlodipine 5 mg tablet RxNorm: 835033 TAKE ONE TABLET BY MOUTH TWICE A DAY 12/14/2014 03/13/2015 Inactive cyanocobalamin (vit B-12) 1,000 mcg/mL injection solution RxNorm: 510985 Milliliter(s) Inj 12/08/2014 12/08/2014 Inactive Synthroid 50 mcg tablet RxNorm: 612113 TAKE ONE TABLET BY MOUTH EVERY DAY. 10/29/2014 04/26/2015 Inactive Lasix 20 mg tablet RxNorm: 695374 Tablet(s) TAKE ONE TABLET BY MOUTH EVERY DAY NEEDED FOR SWELLING. TAKE POTASSIUM WITH EACH DOSE 201405/25/2015 Inactive potassium chloride ER 20 mEq tablet,extended release(part/ cryst) RxNorm: 870301 Tablet(s) TAKE ONE TABLET BY MOUTH EVERY DAY WHEN YOU TAKE LASIX (FUROSEMIDE) 10/28/2014 05/25/2015 Inactive cyanocobalamin (vit B-12) 1,000 mcg/mL injection solution RxNorm: 341698 Milliliter(s) Inj 10/26/2014 10/26/2014 Inactive OneTouch Ultra Test strips RxNorm: TEST TWO TIMES A DAY 201405/10/2028 Active OneTouch Ultra Test strips RxNorm: 1 Miscellaneous BID 201410/21/2014 Inactive dx: 250.02 Victoza 2-J Luis 0.6 mg/0.1 mL (18 mg/3 mL) subcutaneous pen injector RxNorm: 746882 1.8 Milligram(s) SQ daily 09/24/201402/22 Inactive cyanocobalamin (vit B-12) 1,000 mcg/mL injection solution RxNorm: 768721 Milliliter(s) Inj 09/24/2014 09/24/2014 Inactive Tenex 1 mg tablet RxNorm: 343480 1 Tablet(s) PO daily TAKE ONE TABLET BY MOUTH EVERY DAY 09/24/2014 10/03/2015 Inactive Lopressor 100 mg tablet RxNorm: 608370 TAKE ONE TABLET BY MOUTH EVERY DAY 09/14/2014 06/10/2015 Inactive Lopressor 100 mg tablet RxNorm: 904632 1 Tablet(s) PO daily TAKE ONE TABLET BY MOUTH EVERY DAY 09/14/2014 09/13/2014 Inactive cyanocobalamin (vit B-12) 1,000 mcg/mL injection solution RxNorm: 343498 Milliliter(s) Inj 08/24/2014 08/24/2014 Inactive [SAVINGS FOR UNINSURED PATIENTS - - BIN:[id number], PCN: [id number], Group: [id number], ID# [id number], Process claim through [employer], for questions: . THIS IS NOT INSURANCE.] Victoza 2-J Luis 0.6 mg/0.1 mL (18 mg/3 mL) subcutaneous pen injector RxNorm: 721730 1.2 Milligram(s) SQ daily 08/05/201409/23 Inactive glipizide 10 mg tablet RxNorm: 434784 TAKE ONE TABLET BY MOUTH TWICE A DAY 07/28/2014 05/23/2015 Inactive Tenex 1 mg tablet RxNorm: 967406 TAKE ONE TABLET BY MOUTH EVERY DAY 07/02/2014 07/01/2014 Inactive Tenex 1 mg tablet RxNorm: 496721 TAKE ONE TABLET BY MOUTH EVERY DAY 07/02/2014 09/23/2014 Inactive spironolactone 25 mg tablet RxNorm: 612199 TAKE ONE TABLET BY MOUTH TWICE A DAY 07/02/2014 04/27/2015 Inactive spironolactone 25 mg tablet RxNorm: 428015 Tablet(s) PO TAKE ONE TABLET BY MOUTH TWICE A DAY 06/30/2014 07/01/2014 Inactive Tenex 1 mg tablet RxNorm: 938477 Tablet(s) PO TAKE ONE TABLET BY MOUTH EVERY DAY 06/30/2014 07/01/2014 Inactive Lortab 5 mg-500 mg tablet RxNorm: 026996 1-2 Tablet(s) PO Q4 PRN as needed q 4- 6hrs prn pain 06/22/2014 12/14/2014 Inactive metformin ER 500 mg tablet,extended release 24 hr RxNorm: 054159 Tablet(s) PO TAKE TWO TABLETS BY MOUTH TWICE A DAY 06/05/2014 06/13/2015 Inactive [SAVINGS FOR UNINSURED PATIENTS -- BIN:[id number], PCN: [id number], Group: [id number], ID# [id number], Process claim through [employer], for questions: . THIS IS NOT INSURANCE.] cyanocobalamin (vit B-12) 1,000 mcg/mL injection solution RxNorm: 083820 1 Milliliter(s) Inj monthly 06/01/201406/01 Inactive Kenalog 40 mg/mL suspension for injection RxNorm: 0129912 1 Milliliter(s) Inj 05/11/2014 05/11/2014 Inactive cyanocobalamin (vit B-12) 1,000 mcg/mL injection kit RxNorm: 492801 Milliliter(s) Inj 04/27/2014 04/27/2014 Inactive amlodipine 5 mg tablet RxNorm: 359104 TAKE ONE TABLET BY MOUTH TWICE A DAY 04/02/2014 07/30/2014 Inactive cyanocobalamin (vit B-12) 1,000 mcg/mL injection kit RxNorm: 991281 1 Milliliter(s ) Inj 03/24/2014 03/24/2014 Inactive [SAVINGS FOR UNINSURED PATIENTS -- BIN:[id number] , PCN: [id number], Group: [id number], ID# [id number], Process claim through [employer], for questions: . THIS IS NOT INSURANCE.] cyanocobalamin (vit B-12) 1,000 mcg/mL injection solution RxNorm: 571500 1 Milliliter(s) Inj 03/24/2014 03/24/2014 Inactive Synthroid 50 mcg tablet RxNorm: 148503 TAKE ONE TABLET BY MOUTH EVERY DAY. 03/01/2014 09/26/2014 Inactive Lasix 20 mg tablet RxNorm: 450567 TAKE ONE TABLET BY MOUTH EVERY DAY NEEDED FOR SWELLING. TAKE POTASSIUM WITH EACH DOSE 03/01/2014 09/26/2014 Inactive potassium chloride ER 20 mEq tablet,extended release(part/ cryst) RxNorm: 017716 TAKE ONE TABLET BY MOUTH EVERY DAY WHEN YOU TAKE LASIX (FUROSEMIDE) 03/01/2014 09/26/2014 Inactive cyanocobalamin (vit B-12) 1,000 mcg/mL injection solution RxNorm: 608724 1 Milliliter(s) Inj 02/24/2014 02/24/2014 Inactive Tricor 145 mg tablet RxNorm: 081187 TAKE ONE TABLET BY MOUTH EVERY DAY 02/16/2014 02/15/2014 Inactive Victoza 2-J Luis 0.6 mg/0.1 mL (18 mg/3 mL) subcutaneous pen injector RxNorm: 929775 1.2 Milligram(s) SQ daily 02/16/201408/04 Inactive Tricor 145 mg tablet RxNorm: 836336 TAKE ONE TABLET BY MOUTH EVERY DAY 02/16/2014 06/15/2014 Inactive Synthroid 50 mcg tablet RxNorm: 229571 TAKE ONE TABLET BY MOUTH EVERY DAY. 02/02/2014 03/03/2014 Inactive Synthroid 50 mcg tablet RxNorm: 138008 TAKE ONE TABLET BY MOUTH EVERY DAY. 02/02/2014 02/01/2014 Inactive simvastatin 20 mg tablet RxNorm: 301305 TAKE ONE TABLET BY MOUTH AT BEDTIME 01/12/2014 01/06/2015 Inactive cyanocobalamin (vit B-12) 1,000 mcg/mL injection solution RxNorm: 126946 Milliliter(s) Inj 01/09/2014 01/09/2014 Inactive Lortab 5 mg-500 mg tablet RxNorm: 824382 1-2 Tablet(s) PO Q4 PRN q 4-6hrs prn pain 12/23/2013 No Stop Date Active Lasix 20 mg tablet RxNorm: 713655 Tablet(s) PO TAKE ONE TABLET BY MOUTH EVERY DAY NEEDED FOR SWELLING. TAKE POTASSIUM WITH EACH DOSE 12/201302/28/2014 Inactive potassium chloride ER 20 mEq tablet,extended release(part/ cryst) RxNorm: 473291 Tablet(s) PO TAKE ONE TABLET BY MOUTH EVERY DAY WHEN YOU TAKE LASIX (FUROSEMIDE ) 12/02/2013 02/28/2014 Inactive Lomotil 2.5 mg-0.025 mg tablet RxNorm: 9980230 Tablet(s) PO TAKE ONE TABLET BY MOUTH EVERY 8 HOURS NEEDED 11/27/2013 No Stop Date Active (Appended: Controlled substance eRx refill - RxReferenceNumber: [id number]) Lomotil 2.5 mg-0.025 mg tablet RxNorm: 6840152 1 Tablet(s) PO Q8 PRN 11/27/2013 05/25/2014 Inactive cyanocobalamin (vit B-12) 1,000 mcg/mL injection solution RxNorm: 373608 1 Milliliter(s) Inj 11/27/2013 11/27/2013 Inactive Vitamin B-12 1,000 mcg/mL injection solution RxNorm: 453302 1 Milliliter(s) Inj monthly 11/24/2013 11/18/2014 Inactive ok to give multidose if available Synthroid 50 mcg tablet RxNorm: 821345 Tablet(s) PO TAKE ONE TABLET BY MOUTH EVERY DAY. 10/31/2013 02/01/2014 Inactive simvastatin 20 mg tablet RxNorm: 801240 Tablet(s) PO TAKE ONE TABLET BY MOUTH AT BEDTIME 10/10/2013 01/11/2014 Inactive Vitamin B-12 1,000 mcg/mL injection solution RxNorm: 542593 1 Milliliter(s) Inj monthly 09/30/2013 09/29/2013 Inactive ok to give multidose if available Vitamin B-12 1,000 mcg/mL injection solution RxNorm: 388734 1 Milliliter(s) Inj monthly 09/30/2013 11/23/2013 Inactive ok to give multidose if available Vitamin B-12 1,000 mcg/mL injection solution RxNorm: 650444 1 Milliliter(s) Inj 09/18/2013 09/18/2013 Inactive Lopressor 100 mg tablet RxNorm: 677450 Tablet(s) PO TAKE ONE TABLET BY MOUTH EVERY DAY 09/15/2013 09/13/2014 Inactive Vitamin B-12 1,000 mcg/mL injection solution RxNorm: 078536 1 Milliliter(s) Inj 08/22/2013 08/22/2013 Inactive glipizide 10 mg tablet RxNorm: 670600 Tablet(s) PO TAKE ONE TABLET BY MOUTH TWICE A DAY 08/15/2013 07/27/2014 Inactive Tenex 1 mg tablet RxNorm: 096830 Tablet(s) PO TAKE ONE TABLET BY MOUTH EVERY DAY 08/05/2013 06/29/2014 Inactive potassium chloride ER 20 mEq tablet,extended release(part/ cryst) RxNorm: 488572 Tablet(s) PO TAKE ONE TABLET BY MOUTH EVERY DAY WHEN YOU TAKE LASIX (FUROSEMIDE ) 07/31/2013 12/01/2013 Inactive spironolactone 25 mg tablet RxNorm: 602345 Tablet(s) PO TAKE ONE TABLET BY MOUTH TWICE A DAY 07/31/2013 06/29/2014 Inactive Lasix 20 mg tablet RxNorm: 010534 Tablet(s) PO TAKE ONE TABLET BY MOUTH EVERY DAY NEEDED FOR SWELLING. TAKE POTASSIUM WITH EACH DOSE 08/201312/01/2013 Inactive Vitamin B-12 1,000 mcg/mL injection solution RxNorm: 357419 Milliliter(s) Inj 07/28/2013 07/28/2013 Inactive Synthroid 50 mcg tablet RxNorm: 430709 Tablet(s) PO TAKE ONE TABLET BY MOUTH EVERY DAY. PATIENT DUE FOR TSH LEVEL LAB 06/30/2013 06/29/2013 Inactive Synthroid 50 mcg tablet RxNorm: 761772 Tablet(s) PO TAKE ONE TABLET BY MOUTH EVERY DAY. PATIENT DUE FOR TSH LEVEL LAB 06/30/2013 10/30/2013 Inactive potassium chloride ER 20 mEq tablet,extended release(part/ cryst) RxNorm: 431594 Tablet(s) PO TAKE ONE TABLET BY MOUTH EVERY DAY WHEN YOU TAKE LASIX (FUROSEMIDE ) 06/23/2013 07/30/2013 Inactive Lasix 20 mg tablet RxNorm: 834254 Tablet(s) PO TAKE ONE TABLET BY MOUTH EVERY DAY NEEDED FOR SWELLING. TAKE POTASSIUM WITH EACH DOSE 07/30/2013 Inactive amlodipine 5 mg tablet RxNorm: 896833 Tablet(s) PO TAKE ONE TABLET BY MOUTH TWICE A DAY 06/17/2013 04/01/2014 Inactive metformin ER 500 mg tablet,extended release 24 hr RxNorm: 482976 Tablet(s) PO TAKE TWO TABLETS BY MOUTH TWICE A DAY 05/26/2013 06/04/2014 Inactive metformin ER 500 mg tablet,extended release 24 hr RxNorm: 983680 Tablet(s) PO TAKE TWO TABLETS BY MOUTH TWICE A DAY 05/26/2013 05/25/2013 Inactive Vitamin B-12 1,000 mcg/mL injection solution RxNorm: 730501 1 Milliliter(s) Inj 05/21/2013 05/21/2013 Inactive Vitamin B-12 1,000 mcg/mL Injection RxNorm: 469676 Milliliter(s) Inj 04/23/2013 04/23/2013 Inactive Influenza Virus Vaccine 0.5 mL RxNorm: IM 04/23/2013 04/23/2013 Inactive Synthroid 50 mcg tablet RxNorm: 272681 Tablet(s) PO TAKE ONE TABLET BY MOUTH EVERY DAY. PATIENT DUE FOR TSH LEVEL LAB 04/17/2013 06/29/2013 Inactive Lasix 20 mg tablet RxNorm: 991612 Tablet(s) PO TAKE ONE TABLET BY MOUTH EVERY DAY NEEDED FOR SWELLING. TAKE POTASSIUM WITH EACH DOSE 06/22/2013 Inactive potassium chloride ER 20 mEq tablet,extended release(part/ cryst) RxNorm: 2478621 Tablet(s) PO TAKE ONE TABLET BY MOUTH EVERY DAY WHEN YOU TAKE LASIX (FUROSEMIDE ) 04/17/2013 06/22/2013 Inactive simvastatin 20 mg tablet RxNorm: 095229 Tablet(s) PO TAKE ONE TABLET BY MOUTH AT BEDTIME 04/10/2013 10/09/2013 Inactive Vitamin B-12 1,000 mcg/mL Injection RxNorm: 749794 1 Milliliter(s) Inj 03/24/2013 03/24/2013 Inactive Lopressor 100 mg tablet RxNorm: 894920 Tablet(s) PO TAKE ONE TABLET BY MOUTH EVERY DAY 03/18/2013 09/14/2013 Inactive cyanocobalamin (vitamin B-12) 1,000 mcg/mL Injection RxNorm: 338337 Milliliter(s) Inj 02/20/2013 02/20/2013 Inactive Tricor 145 mg tablet RxNorm: 822500 Tablet(s) PO TAKE ONE TABLET BY MOUTH EVERY DAY 02/14/2013 02/15/2014 Inactive Vitamin B-12 1,000 mcg/mL Injection RxNorm: 965561 1 Milliliter(s) Inj 01/22/2013 01/22/2013 Inactive potassium chloride ER 20 mEq tablet,extended release(part/ cryst) RxNorm: 6263388 1 Tablet(s) PO QDAY PRN take when taking prn lasix 201204/16/2013 Inactive Lasix 20 mg tablet RxNorm: 445595 1 Tablet(s) PO QDAY PRN daily prn swelling - to take kcl with lasix 01/22/20132012 Inactive cyanocobalamin (vitamin B-12) 1,000 mcg/mL Injection RxNorm: 496477 Milliliter(s) Inj 12/19/2012 12/19/2012 Inactive cyanocobalamin (vitamin B-12) 1,000 mcg/mL Injection RxNorm: 217067 Milliliter(s) Inj 11/20/2012 11/20/2012 Inactive Diflucan 150 mg tablet RxNorm: 060678 1 Tablet(s) PO daily 11/21/2012 Inactive Synthroid 50 mcg tablet RxNorm: 191081 Tablet(s) PO TAKE ONE TABLET BY MOUTH EVERY DAY. PATIENT DUE FOR TSH LEVEL LAB 11/18/2012 04/16/2013 Inactive Keflex 500 mg capsule RxNorm: 101859 1 Capsule(s) PO TID 201211/19/2012 Inactive Keflex 500 mg capsule RxNorm: 927375 1 Capsule(s) PO TID 201211/12/2012 Inactive Byetta 10 mcg/0.04 mL per dose Sub-Q Pen Injector RxNorm: 453278 Pen Injector SQ DIAL AND INJECT SUBCUTANEOUSLY 10 MCG TWICE DAILY WITHIN 60 MINUTES BEFORE MORNING AND EVENING MEALS. DO NOT ADMINISTER AFTER A MEAL. 04/03/2014 Inactive cyanocobalamin (vitamin B-12) 1,000 mcg/mL Injection RxNorm: 953091 1 Milliliter(s ) Inj 10/23/2012 10/23/2012 Inactive Lortab 5 mg-500 mg tablet RxNorm: 440779 1-2 Tablet(s) PO Q4 PRN q 4-6hrs prn pain 10/02/2012 12/22/2013 Inactive cyanocobalamin (vitamin B-12) 1,000 mcg/mL Injection RxNorm: 066969 Milliliter(s) Inj 09/16/2012 09/16/2012 Inactive Vitamin B-12 1,000 mcg/mL Injection RxNorm: 747628 1 Milliliter(s) Inj 08/15/2012 08/15/2012 Inactive glipizide 10 mg tablet RxNorm: 958791 Tablet(s) PO TAKE ONE TABLET BY MOUTH TWICE A DAY 08/12/2012 08/14/2013 Inactive Tenex 1 mg tablet RxNorm: 571566 Tablet(s) PO TAKE ONE TABLET BY MOUTH EVERY DAY 08/12/2012 08/04/2013 Inactive Kenalog 40 mg/mL Susp for Injection RxNorm: 2754068 1 Milliliter(s) Inj 08/06/2012 01/22/2013 Inactive spironolactone 25 mg tablet RxNorm: 505842 Tablet(s) PO TAKE ONE TABLET BY MOUTH TWICE A DAY 07/29/2012 07/30/2013 Inactive cefdinir 300 mg capsule RxNorm: 351162 1 Capsule(s) PO BID 08/01/2012 Inactive cefdinir 300 mg capsule RxNorm: 151422 1 Capsule(s) PO BID 07/25/2012 Inactive Vitamin B-12 1,000 mcg/mL Injection RxNorm: 587272 1 Milliliter(s) Inj 07/19/2012 07/19/2012 Inactive simvastatin 20 mg tablet RxNorm: 500906 Tablet(s) PO TAKE ONE TABLET BY MOUTH AT BEDTIME 07/08/2012 04/09/2013 Inactive simvastatin 20 mg tablet RxNorm: 324305 Tablet(s) PO TAKE ONE TABLET BY MOUTH AT BEDTIME 07/08/2012 10/07/2015 Inactive Synthroid 50 mcg tablet RxNorm: 425076 1 Tablet(s) PO daily 12/201110/31/2012 Inactive Please advise patient due for TSH level. amlodipine 5 mg tablet RxNorm: 409116 1 Tablet(s) PO BID 201112/15/2012 Inactive amlodipine 5 mg tablet RxNorm: 138612 1 Tablet(s) PO BID 201106/18/2012 Inactive Vitamin B-12 1,000 mcg/mL Injection RxNorm: 022900 Milliliter(s) Inj 06/19/2012 06/19/2012 Inactive Lopressor 100 mg tablet RxNorm: 395702 Tablet(s) PO 06/17/2012 03/17/2013 Inactive TAKE ONE TABLET BY MOUTH EVERY DAY Vitamin B-12 1,000 mcg/mL Injection RxNorm: 661805 Milliliter(s) Inj 05/22/2012 05/22/2012 Inactive Synthroid 50 mcg tablet RxNorm: 562717 1 Tablet(s) PO daily 06/11/2012 Inactive Please advise patient due for TSH level. Diflucan 150 mg tablet RxNorm: 153026 1 Tablet(s) PO daily 11/18/2012 Inactive metformin ER 500 mg tablet,extended release 24 hr RxNorm: 225629 2 Tablet(s) PO BID 04/25/2012 05/19/2013 Inactive Vitamin B-12 1,000 mcg/mL Injection RxNorm: 081313 Milliliter(s) Inj 04/22/2012 04/22/2012 Inactive Vitamin B-12 1,000 mcg/mL Injection RxNorm: 319481 Milliliter(s) Inj 03/19/2012 03/19/2012 Inactive Vitamin B-12 1,000 mcg/mL Injection RxNorm: 306581 Milliliter(s) Inj 02/15/2012 02/15/2012 Inactive Tricor 145 mg tablet RxNorm: 102562 1 Tablet(s) PO daily 201102/13/2013 Inactive Vitamin B-12 1,000 mcg/mL Injection RxNorm: 055124 Milliliter(s) Inj 01/18/2012 01/18/2012 Inactive Kenalog 40 mg/mL Susp for Injection RxNorm: 2653665 1 Milliliter(s) Inj 12/28/2011 12/28/2011 Inactive Vitamin B-12 1,000 mcg/mL Injection RxNorm: 857262 Milliliter(s) Inj 12/20/2011 12/20/2011 Inactive omeprazole 20 mg Cap, delayed release RxNorm: 968353 1 Capsule(s) PO daily 12/07/2011 11/30/2012 Inactive may take bid if nec cyanocobalamin (vitamin B-12) 1,000 mcg/mL Injection RxNorm: 583330 1 Milliliter(s ) Inj 11/07/2011 11/07/2011 Inactive cyanocobalamin (vitamin B-12) 1,000 mcg/mL Injection RxNorm: 719241 1 Milliliter(s ) Inj 10/03/2011 10/03/2011 Inactive Synthroid 50 mcg tablet RxNorm: 336569 1 Tablet(s) PO daily 03/08/2012 Inactive Byetta 10 mcg/0.04 mL per dose Sub-Q Pen Injector RxNorm: 294115 10 Microgram(s) SQ BID 08/29/2011 09/21/2012 Inactive metformin ER 500 mg tablet,extended release 24 hr RxNorm: 375164 2 Tablet(s) PO BID 08/15/2011 02/10/2012 Inactive cyanocobalamin (vitamin B-12) 1,000 mcg/mL Injection RxNorm: 930318 1 Milliliter(s ) Inj 07/28/2011 07/28/2011 Inactive NovoFine 30 Needle RxNorm: 1 Miscellaneous BID 07/28/2011 03/18/2013 Inactive OneTouch Ultra Test strips RxNorm: 1 Miscellaneous BID 201003/18/2013 Inactive guanfacine 1 mg Tab RxNorm: 834514 1 Tablet(s) PO daily 201007/10/2012 Inactive glipizide 10 mg tablet RxNorm: 033757 1 Tablet(s) PO BID 201008/09/2012 Inactive Tenex 1 mg tablet RxNorm: 919034 1 Tablet(s) PO daily 201008/09/2012 Inactive lisinopril 20 mg tablet RxNorm: 851866 1 Tablet(s) PO daily pt 07/04/2011 04/21/2012 Inactive pt may have #90 with year if insurance pays spironolactone 25 mg tablet RxNorm: 066164 1 Tablet(s) PO BID 07/03/2011 07/26/2012 Inactive simvastatin 20 mg Tab RxNorm: 862038 1 Tablet(s) PO QHS 201006/28/2011 Inactive cyanocobalamin (vitamin B-12) 1,000 mcg/mL Injection RxNorm: 512281 Milliliter(s) Inj 06/29/2011 06/29/2011 Inactive simvastatin 20 mg tablet RxNorm: 716551 1 Tablet(s) PO QHS 07/201006/22/2012 Inactive Lopressor 100 mg tablet RxNorm: 767378 1 Tablet(s) PO daily 06/16/2012 Inactive ketorolac 60 mg/2 mL IM RxNorm: 571271 Milliliter(s) IM 201005/23/2011 Inactive cyanocobalamin (vitamin B-12) 1,000 mcg/mL Injection RxNorm: 906359 Milliliter(s) Inj 05/23/2011 05/23/2011 Inactive Influenza Virus Vaccine 0.5 mL RxNorm: IM 04/26/2011 04/26/2011 Inactive Vitamin B-12 1,000 mcg/mL Injection RxNorm: 590617 Milliliter(s) Inj 04/26/2011 04/26/2011 Inactive Lomotil 2.5 mg-0.025 mg tablet RxNorm: 9118601 1 Tablet(s) PO Q8 PRN 04/26/2011 11/27/2013 Inactive amiodarone 200 mg tablet RxNorm: 051355 1 Tablet(s) PO daily No Start Date Active atorvastatin 10 mg tablet RxNorm: 253389 1 Tablet(s) PO QHS No Start Date Active metoprolol succinate ER 100 mg tablet,extended release 24 hr RxNorm: 968690 1 Tablet(s) PO daily No Start Date Active warfarin 2 mg tablet RxNorm: 459173 1 Tablet(s) PO daily No Start Date Active clopidogrel 75 mg tablet RxNorm: 191216 1 Tablet(s) PO daily No Start Date Active aspirin 81 mg Tab, Delayed Release RxNorm: 463970 1 Tablet(s) PO daily No Start Date Active Vitamin D 1,000 unit Tab RxNorm: 483462 1 Tablet(s) PO daily No Start Date Active Tricor 145 mg Tab RxNorm: 821126 1 Tablet(s) PO daily No Start Date 02/07/2012 Inactive Synthroid 50 mcg Tab RxNorm: 871733 1 Tablet(s) PO daily No Start Date 09/10/2011 Inactive lisinopril 20 mg tablet RxNorm: 477935 1 Tablet(s) PO daily No Start Date 06/18/2012 Inactive Lortab 5 mg-500 mg tablet RxNorm: 730719 1 Tablet(s) PO Q4 PRN q 4hrs prn pain No Start Date 10/01/2012 Inactive Tenex 1 mg Tab RxNorm : 488385 1 Tablet(s) PO daily No Start Date 07/16/2011 Inactive lisinopril 40 mg tablet RxNorm: 912750 Tablet(s) PO No Start Date 05/21/2012 Inactive Voltaren 1 % Topical Gel RxNorm: 672156 TOP as directed No Start Date 11/29/2015 Inactive iron 325 mg (65 mg iron) Tab RxNorm: 258261 1 Tablet(s) PO daily No Start Date 02/22/2015 Inactive Zithromax Z-J Luis 250 mg tablet RxNorm: 092395 Tablet(s) PO UD No Start Date 01/22/2013 Inactive Byetta 10 mcg/0.04 mL per dose Sub-Q Pen Injector RxNorm: 171252 Milliliter(s) SQ BID No Start Date 08/28/2011 Inactive cyanocobalamin (vitamin B-12) 1,000 mcg/mL Injection RxNorm: 554910 1 Milliliter(s ) Inj month No Start Date 11/30/2015 Inactive Tessalon 200 mg capsule RxNorm: 870636 1 Capsule(s) PO TID PRN No Start Date 01/21/2013 Inactive Victoza 2-J Luis 0.6 mg/0.1 mL (18 mg/3 mL) subcutaneous pen injector RxNorm: 273397 1.2 Milligram(s) SQ daily No Start Date Inactive simvastatin 20 mg Tab RxNorm: 820635 1 Tablet(s) PO QHS No Start Date 06/28/2011 Inactive spironolactone 25 mg Tab RxNorm: 149086 1 Tablet(s) PO BID No Start Date 07/02/2011 Inactive Diflucan 150 mg tablet RxNorm: 814533 1 Tablet(s) PO daily No Start Date 04/24/2012 Inactive guanfacine 1 mg Tab RxNorm: 424081 1 Tablet(s) PO daily No Start Date 07/16/2011 Inactive Ativan 1 mg Tab RxNorm : 529334 1/2-1 Tablet(s) PO Q6 PRN 1/2 - 1 tab q 6 hours if needed for anxiety No Start Date 2013 Inactive metformin ER 500 mg 24 hr Tab RxNorm: 286184 2 Tablet(s) PO BID No Start Date 08/14/2011 Inactive Lopressor 100 mg Tab RxNorm: 880004 1 Tablet(s) PO daily No Start Date 06/26/2011 Inactive glipizide 10 mg Tab RxNorm: 063495 1 Tablet(s) PO BID No Start Date 07/16/2011 Inactive KCL 10 meq RxNorm: PO as directed daily when taking lasix No Start Date 01/22/2013 Inactive lisinopril 20 mg Tab RxNorm: 377970 1 Tablet(s) PO daily No Start Date 07/03/2011 Inactive One Touch Ultra Test Strips RxNorm: 1 Miscellaneous BID No Start Date 07/27/2011 Inactive omeprazole 20 mg Cap, delayed release RxNorm: 959522 1 Capsule(s) PO BID No Start Date 12/06/2011 Inactive Lasix 20 mg tablet RxNorm: 282657 Tablet(s) PO as directed daily prn swelling - to take kcl with lasix No Start Date 01/21 Inactive niacin 500 mg Tab RxNorm: 384139 1 Tablet(s) PO QHS No Start Date 04/03/2014 Inactive Medication Administered Medication Codes Instructions Start Date Status cyanocobalamin (vit B-12) 1,000 mcg/mL injection solution RxNorm: 733294 1Milliliter 08/21/2017 Active cyanocobalamin (vit B-12) 1,000 mcg/mL injection solution RxNorm: 301678 1Milliliter 07/18/2017 No longer Active cyanocobalamin (vit B-12) 1,000 mcg/mL injection solution RxNorm: 686499 1Milliliter 06/18/2017 No longer Active Kenalog 40 mg/mL suspension for injection RxNorm: 5276690 1Milliliter 06/18/2017 No longer Active cyanocobalamin (vit B-12) 1,000 mcg/mL injection solution RxNorm: 307806 1Milliliter 05/09/2017 No longer Active cyanocobalamin (vit B-12) 1,000 mcg/mL injection solution RxNorm: 079992 1Milliliter 04/04/2017 No longer Active Kenalog 40 mg/mL suspension for injection RxNorm: 1195162 1Milliliter 02/23/2017 No longer Active cyanocobalamin (vit B-12) 1,000 mcg/mL injection solution RxNorm: 614326 Milliliter 01/23/2017 No longer Active cyanocobalamin (vit B-12) 1,000 mcg/mL injection solution RxNorm: 998691 1Milliliter 11/14/2016 No longer Active Kenalog 40 mg/mL suspension for injection RxNorm: 4929570 1Milliliter 09/07/2016 No longer Active cyanocobalamin (vit B-12) 1,000 mcg/mL injection solution RxNorm: 328215 1Milliliter 08/29/2016 No longer Active cyanocobalamin (vit B-12) 1,000 mcg/mL injection solution RxNorm: 546862 Milliliter 06/12/2016 No longer Active ceftriaxone 500 mg solution for injection RxNorm: 1322203 2Milliliter 05/04/2016 No longer Active cyanocobalamin (vit B-12) 1,000 mcg/mL injection solution RxNorm: 830503 Milliliter 05/04/2016 No longer Active cyanocobalamin (vit B-12) 1,000 mcg/mL injection solution RxNorm: 841162 Milliliter 03/17/2016 No longer Active cyanocobalamin (vit B-12) 1,000 mcg/mL injection solution RxNorm: 645799 1Milliliter 02/15/2016 No longer Active cyanocobalamin (vit B-12) 1,000 mcg/mL injection solution RxNorm: 066852 Milliliter 01/19/2016 No longer Active cyanocobalamin (vit B-12) 1,000 mcg/mL injection solution RxNorm: 412749 1Milliliter 12/07/2015 No longer Active cyanocobalamin (vit B-12) 1,000 mcg/mL injection kit RxNorm : 963419 kit 09/06/2015 No longer Active ceftriaxone 500 mg solution for injection RxNorm: 2906712 09/06/2015 No longer Active ceftriaxone 500 mg solution for injection RxNorm: 0632597 07/05/2015 No longer Active Kenalog 40 mg/mL suspension for injection RxNorm: 5229385 Milliliter 07/05/2015 No longer Active cyanocobalamin (vit B-12) 1,000 mcg/mL injection solution RxNorm: 595873 Milliliter 06/28/2015 No longer Active cyanocobalamin (vit B-12) 1,000 mcg/mL injection solution RxNorm: 573575 Milliliter 05/13/2015 No longer Active cyanocobalamin (vit B-12) 1,000 mcg/mL injection solution RxNorm: 928057 Milliliter 02/23/2015 No longer Active cyanocobalamin (vit B-12) 1,000 mcg/mL injection solution RxNorm: 269913 Milliliter 01/08/2015 No longer Active cyanocobalamin (vit B-12) 1,000 mcg/mL injection solution RxNorm: 812441 Milliliter 12/08/2014 No longer Active cyanocobalamin (vit B-12) 1,000 mcg/mL injection solution RxNorm: 434126 Milliliter 10/26/2014 No longer Active cyanocobalamin (vit B-12) 1,000 mcg/mL injection solution RxNorm: 768864 Milliliter 09/24/2014 No longer Active cyanocobalamin (vit B-12) 1,000 mcg/mL injection solution RxNorm: 191821 Milliliter 08/24/2014 No longer Active cyanocobalamin (vit B-12) 1,000 mcg/mL injection solution RxNorm: 441595 1Milliliter 06/01/2014 No longer Active Kenalog 40 mg/mL suspension for injection RxNorm: 3938610 1Milliliter 05/11/2014 No longer Active cyanocobalamin (vit B-12) 1,000 mcg/mL injection kit RxNorm : 894807 Milliliter 04/27/2014 No longer Active cyanocobalamin (vit B-12) 1,000 mcg/mL injection kit RxNorm : 365122 1Milliliter 03/24/2014 No longer Active cyanocobalamin (vit B-12) 1,000 mcg/mL injection solution RxNorm: 329194 1Milliliter 03/24/2014 No longer Active cyanocobalamin (vit B-12) 1,000 mcg/mL injection solution RxNorm: 137987 1Milliliter 02/24/2014 No longer Active cyanocobalamin (vit B-12) 1,000 mcg/mL injection solution RxNorm: 114050 Milliliter 01/09/2014 No longer Active cyanocobalamin (vit B-12) 1,000 mcg/mL injection solution RxNorm: 794334 1Milliliter 11/27/2013 No longer Active Vitamin B-12 1,000 mcg/mL injection solution RxNorm: 973754 1Milliliter 09/18/2013 No longer Active Vitamin B-12 1,000 mcg/mL injection solution RxNorm: 478840 1Milliliter 08/22/2013 No longer Active Vitamin B-12 1,000 mcg/mL injection solution RxNorm: 429191 Milliliter 07/28/2013 No longer Active Vitamin B-12 1,000 mcg/mL injection solution RxNorm: 069232 1Milliliter 05/21/2013 No longer Active Influenza Virus Vaccine 0.5 mL RxNorm: 04/23/2013 No longer Active Vitamin B-12 1,000 mcg/mL Injection RxNorm: 640366 Milliliter 04/23/2013 No longer Active Vitamin B-12 1,000 mcg/mL Injection RxNorm: 561263 1Milliliter 03/24/2013 No longer Active cyanocobalamin (vitamin B-12) 1,000 mcg/mL Injection RxNorm : 567307 Milliliter 02/20/2013 No longer Active Vitamin B-12 1,000 mcg/mL Injection RxNorm: 764761 1Milliliter 01/22/2013 No longer Active cyanocobalamin (vitamin B-12) 1,000 mcg/mL Injection RxNorm : 367812 Milliliter 12/19/2012 No longer Active cyanocobalamin (vitamin B-12) 1,000 mcg/mL Injection RxNorm : 564974 Milliliter 11/20/2012 No longer Active cyanocobalamin (vitamin B-12) 1,000 mcg/mL Injection RxNorm : 513393 1Milliliter 10/23/2012 No longer Active cyanocobalamin (vitamin B-12) 1,000 mcg/mL Injection RxNorm : 683950 Milliliter 09/16/2012 No longer Active Vitamin B-12 1,000 mcg/mL Injection RxNorm: 185945 1Milliliter 08/15/2012 No longer Active Vitamin B-12 1,000 mcg/mL Injection RxNorm: 948683 1Milliliter 07/19/2012 No longer Active Vitamin B-12 1,000 mcg/mL Injection RxNorm: 828004 Milliliter 06/19/2012 No longer Active Vitamin B-12 1,000 mcg/mL Injection RxNorm: 383298 Milliliter 05/22/2012 No longer Active Vitamin B-12 1,000 mcg/mL Injection RxNorm: 447331 Milliliter 04/22/2012 No longer Active Vitamin B-12 1,000 mcg/mL Injection RxNorm: 525307 Milliliter 03/19/2012 No longer Active Vitamin B-12 1,000 mcg/mL Injection RxNorm: 259117 Milliliter 02/15/2012 No longer Active Vitamin B-12 1,000 mcg/mL Injection RxNorm: 520329 Milliliter 01/18/2012 No longer Active Kenalog 40 mg/mL Susp for Injection RxNorm: 0593163 1Milliliter 12/28/2011 No longer Active Vitamin B-12 1,000 mcg/mL Injection RxNorm: 250713 Milliliter 12/20/2011 No longer Active cyanocobalamin (vitamin B-12) 1,000 mcg/mL Injection RxNorm : 643952 1Milliliter 11/07/2011 No longer Active cyanocobalamin (vitamin B-12) 1,000 mcg/mL Injection RxNorm : 728161 1Milliliter 10/03/2011 No longer Active cyanocobalamin (vitamin B-12) 1,000 mcg/mL Injection RxNorm : 082970 1Milliliter 07/28/2011 No longer Active cyanocobalamin (vitamin B-12) 1,000 mcg/mL Injection RxNorm : 183631 Milliliter 06/29/2011 No longer Active ketorolac 60 mg/2 mL IM RxNorm: 651305 Milliliter 05/23/2011 No longer Active cyanocobalamin (vitamin B-12) 1,000 mcg/mL Injection RxNorm : 501953 Milliliter 05/23/2011 No longer Active Influenza Virus Vaccine 0.5 mL RxNorm: 04/26/2011 No longer Active Vitamin B-12 1,000 mcg/mL Injection RxNorm: 146353 Milliliter 04/26/2011 No longer Active Immunizations Vaccine Codes Date Status Influenza CVX: 141 04/25/2017 completed Influenza CVX: 141 04/03/2014 completed Influenza CVX: 141 04/23/2013 completed Influenza CVX: 141 04/22/2012 completed Influenza CVX: 141 04/26/2011 completed Assessments Condition Codes Effective Dates Vitamin B12 deficiency anemia, unspecified ICD-10: D51.9 ICD-9: 281.1 08/21/2017 Other vitamin B12 deficiency anemias ICD-10: D51.8 ICD-9: 281.1 07/18/2017 Allergic rhinitis due to animal (cat) (dog) hair and dander ICD-10: J30.81 ICD-9: 477.8 06/18/2017 Essential (primary) hypertension ICD-10: I10 ICD-9: 401.9 06/18/2017 Type 2 diabetes mellitus without complications ICD-10: E11.9 ICD-9: 250.00 06/18/2017 Spontaneous ecchymoses ICD-10: R23.3 ICD-9: 782.7 06/07/2017 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 ICD-9: 564.5 06/07/2017 Encounter for immunization ICD-10: Z23 ICD-9: V03.9 04/25/2017 Chronic atrial fibrillation ICD-10: I48.2 ICD-9: 427.31 04/16/2017 Sacroiliitis, not elsewhere classified ICD-10: M46.1 ICD-9: [...] autonomic (poly)neuropathy ICD-10: E11.43 ICD-9: 250.60 03/30/2016 Type 2 diabetes mellitus with hyperglycemia ICD-10: E11.65 ICD-9: 250.02 11/30/2015 Unspecified acute conjunctivitis, right eye ICD-10: H10.31 [...] 05/11/2014 CELLULITIS OF BUTTOCK ICD-9: 682.5 2013 VACCIN FOR INFLUENZA ICD-10: Z23 ICD-9: V04.81 04/03/2014 LUMBAGO ICD-9: 724.2 04/03/2014 DIABETES TYPE II ICD-9: 250.00 2013 ANEMIA ICD-9: 285.9 11/24/2013 EDEMA ICD-9: 782.3 07/28/2013 VACCIN FOR INFLUENZA ICD-9: V04.81 2012 ACUTE URI ICD-9: 465.9 08/06/2012 COUGH ICD-9: 786.2 08/06/2012 ALLERGIC RHINITIS ICD-9: 477.9 2012 PAIN IN LIMB ICD-9: 729.5 08/23/2011 Feces incontinence ICD-9: 787.60 2010 Reason For Visit Reason For Visit Effective Dates Notes diabetes mellitus 06/18/2017 diarrhea 06/07/2017 vaccination against [...] 28.4 pg 06/07/2017 Cbc With Differential Ord2 [place]% 12.6 % 06/07/2017 Cbc With Differential Ord2 [...] 1.23 K/ul 06/07/2017 Cbc With Differential Ord2 [place] ABS# 0.7 K/ul 06/07/2017 Cbc With Differential Ord2 Eos ABS# 0.2 K/ul 06/07/2017 Cbc With Differential Ord2 Baso ABS# 0.0 K/ul 06/07/2017 Culture Urine [id number] URINE CULTURE SEE NOTES 05/08/2016 Culture Urine [id number] Continued Results 05/08/2016 Urine Culture Ucult Complete >100,000 col/ml aerobic growth sent to ref lab 05/05/2016 IRON TEST [id number] IRON TEST 44 UG/DL 07/28/2013 TSH [id number] TSH 2.104 uIU/ML 07/28/2013 CBC [id number] WBC 6.2 10e9/L 07/28/2013 CBC [id number] RBC 3.95 10e12/L 07/28/2013 CBC [id number] HGB 11.2 g/dL 07/28/2013 CBC [id number] HCT DET 34.2 % 07/28/2013 CBC [id number] MCV 86.6 fL 07/28/2013 CBC [id number] MCH 28.4 pg 07/28/2013 CBC [id number] MCHC 32.7 g/dL 07/28/2013 CBC [id number] PLT 231 10e9/L 07/28/2013 CBC [id number] MPV 10.9 fL 07/28/2013 CBC [id number] JAZMYN % 61.0 % 07/28/2013 CBC [id number] LY % 27.8 % 07/28/2013 CBC [id number] MON % 8.0 % 07/28/2013 CBC [id number] EOS % 2.4 % 07/28/2013 CBC [id number] BASO % 0.8 % 07/28/2013 CBC [id number] RDW 14.0 % 07/28/2013 CBC [id number] ABS JAZMYN 3.78 10e9/L 07/28/2013 CBC [id number] ABS LYMPH 1.72 10e9/L 07/28/2013 CBC [id number] ABS MONO 0.50 10e9/L 07/28/2013 CBC [id number] ABS EOS 0.15 10e9/L 07/28/2013 CBC [id number] ABS BASO 0.05 10e9/L 07/28/2013 CBC [id number] RDW-SD 42.9 fL 07/28/2013 %SAT/TIBC [id number] TIBC 439 UG/DL 07/28/2013 %SAT/TIBC 7373002 % SATURAT 10 % 07/28/2013 %SAT/TIBC [id number] UIBC 395 MCG/DL 07/28/2013 Review of Systems System Result Effective Dates Constitutional recent illness 06/18/2017 Constitutional fatigue 06/18/2017 [...] time 12/26/2016 None Full Exam - General [facility] Psychiatric mood and affect Overall: normal mood [...] clear 04/03/2014 None Full Exam - General 1995 Ears/Nose/Throat [...] 1995 Ears/Nose/Throat oral cavity/pharynx/larynx Overall: no masses 07/28/2013 [...] 1995 Ears/Nose/Throat oral cavity/pharynx/larynx Overall: no masses 06/16/2013 [...] atraumatic 06/16/2013 None Full Exam - General 1995 Musculoskeletal head and neck Overall: cervical spine benign 06/16/2013 None Full Exam - General 1995 Neurologic gait Overall: no ataxia, no unsteadiness 06/16/2013 None Full Exam - General 1995 Neurologic cranial nerves Overall: crainial nerves 2 - 12 grossly intact 06/16/2013 None Full Exam - General 1995 Psychiatric [...] tenderness 07/04/2012 None Full Exam - General 1995 Abdomen abdominal exam Overall: normal bowel sounds 07/04/2012 None Full Exam - General 1995 Musculoskeletal [...] time 07/04/2012 None Full Exam - General 1995 Psychiatric mood and affect Overall: normal mood [...] Procedure Codes Date THER/PROPH/DIAG INJ SC/IM CPT-4: 75420 08/21/2017 VITAMIN B12 INJECTION CPT-4: J3420 08/21/2017 THER/PROPH/DIAG INJ SC/IM CPT-4: 70056 07/18/2017 VITAMIN B12 INJECTION CPT-4: J3420 07/18/2017 TRIAMCINOLONE ACET INJ NOS CPT-4: J3301 06/18/2017 THER/PROPH/DIAG INJ SC/IM CPT-4: 45398 06/18/2017 VITAMIN B12 INJECTION CPT-4: J3420 06/18/2017 PRESCRIP TRANSMIT VIA ERX SY CPT-4: G8553 06/18/2017 THER/PROPH/DIAG INJ SC/IM CPT-4: 19464 05/09/2017 VITAMIN B12 INJECTION CPT-4: J3420 05/09/2017 ADMIN INFLUENZA VIRUS VAC CPT-4: G0008 04/25/2017 FLU VAC NO PRSV 4 JINNY 3 YRS+ CPT-4: 79973 04/25/2017 THER/PROPH/DIAG INJ SC/IM CPT-4: 10898 04/04/2017 VITAMIN B12 INJECTION CPT-4: J3420 04/04/2017 TRIAMCINOLONE ACET INJ NOS CPT-4: J3301 02/23/2017 VITAMIN B12 INJECTION CPT-4: J3420 02/23/2017 THER/PROPH/DIAG INJ SC/IM CPT-4: 60243 01/23/2017 VITAMIN B12 INJECTION CPT-4: J3420 01/23/2017 VITAMIN B12 INJECTION CPT-4: J3420 12/26/2016 THER/PROPH/DIAG INJ SC/IM CPT-4: 95537 12/26/2016 THER/PROPH/DIAG INJ SC/IM CPT-4: 72986 11/14/2016 VITAMIN B12 INJECTION CPT-4: J3420 11/14/2016 THER/PROPH/DIAG INJ SC/IM CPT-4: 50781 09/07/2016 TRIAMCINOLONE ACET INJ NOS CPT-4: J3301 09/07/2016 PRESCRIP TRANSMIT VIA ERX SY CPT-4: G8553 09/07/2016 THER/PROPH/DIAG INJ SC/IM CPT-4: 06810 08/29/2016 VITAMIN B12 INJECTION CPT-4: J3420 08/29/2016 PRESCRIP TRANSMIT VIA ERX SY CPT-4: G8553 08/29/2016 THER/PROPH/DIAG INJ SC/IM CPT-4: 05468 06/12/2016 VITAMIN B12 INJECTION CPT-4: J3420 06/12/2016 PRESCRIP TRANSMIT VIA ERX SY CPT-4: G8553 06/12/2016 URINALYSIS NONAUTO W/O SCOPE CPT-4: 39691 05/04/2016 ROCEPHIN, PER 250 MG CPT-4: J0696 05/04/2016 THER/PROPH/DIAG INJ SC/IM CPT-4: 76521 05/04/2016 VITAMIN B12 INJECTION CPT-4: J3420 05/04/2016 PRESCRIP TRANSMIT VIA ERX SY CPT-4: G8553 05/04/2016 PRESCRIP TRANSMIT VIA ERX SY CPT-4: G8553 03/30/2016 THER/PROPH/DIAG INJ SC/IM CPT-4: 19331 03/17/2016 VITAMIN B12 INJECTION CPT-4: J3420 03/17/2016 THER/PROPH/DIAG INJ SC/IM CPT-4: 81040 02/15/2016 VITAMIN B12 INJECTION CPT-4: J3420 02/15/2016 THER/PROPH/DIAG INJ SC/IM CPT-4: 39283 01/19/2016 VITAMIN B12 INJECTION CPT-4: J3420 01/19/2016 THER/PROPH/DIAG INJ SC/IM CPT-4: 96315 12/07/2015 VITAMIN B12 INJECTION CPT-4: J3420 12/07/2015 ROCEPHIN, PER 250 MG CPT-4: J0696 09/06/2015 THER/PROPH/DIAG INJ SC/IM CPT-4: 00299 09/06/2015 VITAMIN B12 INJECTION CPT-4: J3420 09/06/2015 PRESCRIP TRANSMIT VIA ERX SY CPT-4: G8553 09/06/2015 ROCEPHIN, PER 250 MG CPT-4: J0696 07/05/2015 TRIAMCINOLONE ACET INJ NOS CPT-4: J3301 07/05/2015 PRESCRIP TRANSMIT VIA ERX SY CPT-4: G8553 07/05/2015 THER/PROPH/DIAG INJ SC/IM CPT-4: 75889 06/28/2015 VITAMIN B12 INJECTION CPT-4: J3420 06/28/2015 THER/PROPH/DIAG INJ SC/IM CPT-4: 78140 05/13/2015 VITAMIN B12 INJECTION CPT-4: J3420 05/13/2015 THER/PROPH/DIAG INJ SC/IM CPT-4: 21940 02/23/2015 VITAMIN B12 INJECTION CPT-4: J3420 02/23/2015 THER/PROPH/DIAG INJ SC/IM CPT-4: 34205 01/08/2015 VITAMIN B12 INJECTION CPT-4: J3420 01/08/2015 THER/PROPH/DIAG INJ SC/IM CPT-4: 36845 12/08/2014 VITAMIN B12 INJECTION CPT-4: J3420 12/08/2014 THER/PROPH/DIAG INJ SC/IM CPT-4: 23378 10/26/2014 VITAMIN B12 INJECTION CPT-4: J3420 10/26/2014 VITAMIN B12 INJECTION CPT-4: J3420 09/24/2014 THER/PROPH/DIAG INJ SC/IM CPT-4: 75608 09/24/2014 THER/PROPH/DIAG INJ SC/IM CPT-4: 78325 08/24/2014 VITAMIN B12 INJECTION CPT-4: J3420 08/24/2014 THER/PROPH/DIAG INJ SC/IM CPT-4: 22372 07/08/2014 VITAMIN B12 INJECTION CPT-4: J3420 07/08/2014 THER/PROPH/DIAG INJ SC/IM CPT-4: 25973 06/01/2014 VITAMIN B12 INJECTION CPT-4: J3420 06/01/2014 TRIAMCINOLONE ACET INJ NOS CPT-4: J3301 05/11/2014 VITAMIN B12 INJECTION CPT-4: J3420 04/27/2014 THER/PROPH/DIAG INJ SC/IM CPT-4: 17095 04/27/2014 FLU VAC NO PRSV 4 JINNY 3 YRS+ CPT-4: 55097 04/03/2014 ADMIN INFLUENZA VIRUS VAC Assigned to/Juliana Graham CPT-4: [id number] 04/03/2014 THER/PROPH/DIAG INJ SC/IM CPT-4: 45405 03/24/2014 THER/PROPH/DIAG INJ SC/IM CPT-4: 49535 02/24/2014 THER/PROPH/DIAG INJ SC/IM CPT-4: 78494 01/09/2014 THER/PROPH/DIAG INJ SC/IM CPT-4: 67192 11/27/2013 THER/PROPH/DIAG INJ SC/IM CPT-4: 25151 09/18/2013 VITAMIN B12 INJECTION CPT-4: J3420 09/18/2013 THER/PROPH/DIAG INJ SC/IM CPT-4: 60509 08/22/2013 VITAMIN B12 INJECTION CPT-4: J3420 08/22/2013 ROUTINE VENIPUNCTURE CPT-4: 03837 07/28/2013 VITAMIN B12 INJECTION CPT-4: J3420 07/28/2013 THER/PROPH/DIAG INJ SC/IM CPT-4: 07319 07/28/2013 THER/PROPH/DIAG INJ SC/IM CPT-4: 40690 06/16/2013 VITAMIN B12 INJECTION CPT-4: J3420 06/16/2013 THER/PROPH/DIAG INJ SC/IM CPT-4: 32978 05/21/2013 VITAMIN B12 INJECTION CPT-4: J3420 05/21/2013 ADMIN INFLUENZA VIRUS VAC CPT-4: G0008 04/23/2013 FLULAVAL VACC, 3 YRS & >, IM CPT-4: Q2036 04/23/2013 VITAMIN B12 INJECTION CPT-4: J3420 04/23/2013 THER/PROPH/DIAG INJ SC/IM CPT-4: 75047 04/23/2013 THER/PROPH/DIAG INJ SC/IM CPT-4: 91687 03/24/2013 VITAMIN B12 INJECTION CPT-4: J3420 03/24/2013 THER/PROPH/DIAG INJ SC/IM CPT-4: 89276 02/20/2013 VITAMIN B12 INJECTION CPT-4: J3420 02/20/2013 VITAMIN B12 INJECTION CPT-4: J3420 01/22/2013 PRESCRIP TRANSMIT VIA ERX SY CPT-4: G8553 01/22/2013 TRIAMCINOLONE ACET INJ NOS CPT-4: J3301 12/19/2012 VITAMIN B12 INJECTION CPT-4: J3420 12/19/2012 THER/PROPH/DIAG INJ SC/IM CPT-4: 92139 11/20/2012 VITAMIN B12 INJECTION CPT-4: J3420 11/20/2012 THER/PROPH/DIAG INJ SC/IM CPT-4: 66606 10/23/2012 VITAMIN B12 INJECTION CPT-4: J3420 10/23/2012 THER/PROPH/DIAG INJ SC/IM CPT-4: 72259 09/16/2012 VITAMIN B12 INJECTION CPT-4: J3420 09/16/2012 VITAMIN B12 INJECTION CPT-4: J3420 08/15/2012 THER/PROPH/DIAG INJ SC/IM CPT-4: 22421 08/15/2012 TRIAMCINOLONE ACET INJ NOS CPT-4: J3301 08/06/2012 THER/PROPH/DIAG INJ SC/IM CPT-4: 42174 08/06/2012 PRESCRIP TRANSMIT VIA ERX SY CPT-4: G8553 08/06/2012 VITAMIN B12 INJECTION CPT-4: J3420 07/19/2012 THER/PROPH/DIAG INJ SC/IM CPT-4: 22700 07/19/2012 DRAIN/INJECT JOINT/BURSA CPT-4: 72106 07/10/2012 THER/PROPH/DIAG INJ SC/IM CPT-4: 95489 06/19/2012 VITAMIN B12 INJECTION CPT-4: J3420 06/19/2012 VITAMIN B12 INJECTION CPT-4: J3420 05/22/2012 THER/PROPH/DIAG INJ SC/IM CPT-4: 93684 05/22/2012 ADMIN INFLUENZA VIRUS VAC CPT-4: G0008 04/22/2012 FLULAVAL VACC, 3 YRS & >, IM CPT-4: Q2036 04/22/2012 VITAMIN B12 INJECTION CPT-4: J3420 04/22/2012 VITAMIN B12 INJECTION CPT-4: J3420 03/19/2012 THER/PROPH/DIAG INJ SC/IM CPT-4: 67278 03/19/2012 VITAMIN B12 INJECTION CPT-4: J3420 02/15/2012 THER/PROPH/DIAG INJ SC/IM CPT-4: 95056 02/15/2012 THER/PROPH/DIAG INJ SC/IM CPT-4: 74715 01/18/2012 VITAMIN B12 INJECTION CPT-4: J3420 01/18/2012 TRIAMCINOLONE ACET INJ NOS CPT-4: J3301 12/28/2011 DRAIN/INJECT JOINT/BURSA CPT-4: 41679 12/28/2011 VITAMIN B12 INJECTION CPT-4: J3420 12/20/2011 THER/PROPH/DIAG INJ SC/IM CPT-4: 90894 12/20/2011 VITAMIN B12 INJECTION CPT-4: J3420 11/07/2011 THER/PROPH/DIAG INJ SC/IM CPT-4: 76603 11/07/2011 VITAMIN B12 INJECTION CPT-4: J3420 10/03/2011 THER/PROPH/DIAG INJ SC/IM CPT-4: 18343 10/03/2011 TRIAMCINOLONE ACET INJ NOS CPT-4: J3301 08/23/2011 DRAIN/INJECT JOINT/BURSA CPT-4: 15295 08/23/2011 THER/PROPH/DIAG INJ SC/IM CPT-4: 56154 08/23/2011 VITAMIN B12 INJECTION CPT-4: J3420 08/23/2011 VITAMIN B12 INJECTION CPT-4: J3420 07/28/2011 THER/PROPH/DIAG INJ SC/IM CPT-4: 25921 07/28/2011 VITAMIN B12 INJECTION CPT-4: J3420 06/29/2011 THER/PROPH/DIAG INJ SC/IM CPT-4: 35805 06/29/2011 KETOROLAC TROMETHAMINE INJ CPT-4: J1885 05/23/2011 VITAMIN B12 INJECTION CPT-4: J3420 05/23/2011 THER/PROPH/DIAG INJ SC/IM CPT-4: 35198 05/23/2011 ADMIN INFLUENZA VIRUS VAC CPT-4: G0008 04/26/2011 FLULAVAL VACC, 3 YRS & >, IM CPT-4: Q2036 04/26/2011 VITAMIN B12 INJECTION CPT-4: J3420 04/26/2011 THER/PROPH/DIAG INJ SC/IM CPT-4: 34683 04/26/2011 Vital Signs Date Vital 06/18/2017 Blood Pressure 1: 134/68 Code : 8480-6 BMI: 35.8 Code : 95386-5 Heart Rate 1 : 50 bpm Height: 5'6" SpO2: 98% Weight: 222 lbs 06/07/2017 Blood Pressure 1: 146/68 Code : 8480-6 BMI: 35.3 Code : 96077-8 Heart Rate 1 : 63 bpm Height: 5'6" SpO2: 99% Weight: 218 lbs 8 oz 04/16/2017 Blood Pressure 1: 130/62 Code : 8480-6 BMI: 34.7 Code : 04908-4 Heart Rate 1 : 51 bpm Height: 5'6" SpO2: 94% Weight: 215 lbs 02/23/2017 Blood Pressure 1: 136/64 Code : 8480-6 BMI: 35.0 Code : 69957-9 Heart Rate 1 : 54 bpm Height: 5'6" SpO2: 96% Weight: 217 lbs 12/26/2016 Blood Pressure 1: 144/74 Code : 8480-6 BMI: 34.5 Code : 18750-1 Heart Rate 1 : 60 bpm Height: 5'6" SpO2: 97% Weight: 214 lbs 09/07/2016 Blood Pressure 1: 138/62 Code : 8480-6 Heart Rate 1: 86 bpm SpO2: 96% Temperature: 36.8 (C) / 98.2 (F) Weight: 207 lbs 08/29/2016 Blood Pressure 1: 132/58 Code : 8480-6 BMI: 33.9 Code : 32770-9 Heart Rate 1 : 55 bpm Height: 5'6" SpO2: 98% Weight: 210 lbs 06/12/2016 Blood Pressure 1: 128/76 Code : 8480-6 BMI: 33.2 Code : 45196-6 Heart Rate 1 : 57 bpm Height: 5'6" SpO2: 97% Weight: 206 lbs 05/04/2016 Blood Pressure 1: 130/72 Code : 8480-6 BMI: 33.9 Code : 23359-0 Heart Rate 1 : 74 bpm Height: 5'6" SpO2: 96% Temperature: 36.9 (C) / 98.5 (F) Weight: 210 lbs 03/30/2016 Blood Pressure 1: 116/66 Code : 8480-6 BMI: 34.3 Code : 58469-7 Heart Rate 1 : 67 bpm Height: 5'6" SpO2: 98% Weight: 212 lbs 8 oz 11/30/2015 Blood Pressure 1: 138/64 Code : 8480-6 BMI: 35.2 Code : 86408-2 Heart Rate 1 : 59 bpm Height: 5'6" SpO2: 98% Weight: 218 lbs 09/06/2015 Blood Pressure 1: 138/668 Code: 8480-6 BMI: 35.3 Code: 64898-0 Heart Rate 1: 68 bpm Height: 5'6" Weight: 219 lbs 08/04/2015 Blood Pressure 1: 140/82 Code : 8480-6 Heart Rate 1: 62 bpm SpO2: 98% Weight: 220 lbs 07/05/2015 Blood Pressure 1: 122/80 Code : 8480-6 BMI: 36.0 Code : 95095-8 Heart Rate 1 : 63 bpm Height: 5'6" SpO2: 97% Temperature: 36.3 (C) / 97.3 (F) Weight: 223 lbs 06/28/2015 Blood Pressure 1: 150/74 Code : 8480-6 BMI: 36.3 Code : 91156-2 Heart Rate 1 : 65 bpm Height: 5'6" SpO2: 96% Weight: 225 lbs 02/23/2015 Blood Pressure 1: 142/64 Code : 8480-6 BMI: 37.0 Code : 36750-2 Heart Rate 1 : 56 bpm Height: 5'6" SpO2: 96% Weight: 229 lbs 01/08/2015 Blood Pressure 1: 128/88 Code : 8480-6 BMI: 37.3 Code : 11172-4 Heart Rate 1 : 74 bpm Height: 5'6" Weight: 231 lbs 09/24/2014 Blood Pressure 1: 128/70 Code : 8480-6 BMI: 36.8 Code : 65100-1 Heart Rate 1 : 68 bpm Height: 5'6" SpO2: 96% Weight: 228 lbs 05/11/2014 Blood Pressure 1: 148/82 Code : 8480-6 Height: Temperature: 36.2 (C) / 97.2 (F) Weight: 05/01/2014 Blood Pressure 1: 128/68 Code : 8480-6 BMI: 36.6 Code : 62677-4 Heart Rate 1 : 74 bpm Height: 5'6" Weight: 227 lbs 04/03/2014 Blood Pressure 1: 130/72 Code : 8480-6 BMI: 36.8 Code : 13972-2 Heart Rate 1 : 76 bpm Height: 5'6" Weight: 228 lbs 11/24/2013 Blood Pressure 1: 146/64 Code : 8480-6 BMI: 35.5 Code : 80047-1 Heart Rate 1 : 64 bpm Height: 5'6" Weight: 220 lbs 08/22/2013 Weight: 223 lbs 07/28/2013 Blood Pressure 1: 112/68 Code : 8480-6 BMI: 36.2 Code : 71802-1 Heart Rate 1 : 80 bpm Height: 5'6" Weight: 224 lbs 06/16/2013 Blood Pressure 1: 132/60 Code : 8480-6 BMI: 37.6 Code : 40847-1 Heart Rate 1 : 72 bpm Height: 5'6" Weight: 233 lbs 01/22/2013 Blood Pressure 1: 130/64 Code : 8480-6 BMI: 37.3 Code : 44270-2 Heart Rate 1 : 80 bpm Height: 5'6" Weight: 231 lbs 10/02/2012 Blood Pressure 1: 146/90 Code : 8480-6 BMI: 36.8 Code : 89754-6 Heart Rate 1 : 60 bpm Height: [...] Code : 8480-6 BMI: 37.1 Code : 92817-6 Heart Rate 1 : 60 bpm Height: 5'6" Respiratory Rate: 16 bpm Weight: 230 lbs 12/20/2011 Blood Pressure 1: 142/66 Code : 8480-6 BMI: 35.8 Code : 42109-4 Heart Rate 1 : 66 bpm Height: [...] Code : 8480-6 BMI: 36.2 Code : 21639-2 Heart Rate 1 : 64 bpm Height: [...] pain Quality intermittent 11/30/2015 seeing Kevin brown Synvis knee pain Alleviating Factors rest 11/30/2015 None [...] None knee pain Quality intermittent 06/28/2015 seeing Banwart- gets Synvisc hypertension Blood Pressure Values patient [...] None knee pain Quality intermittent 02/23/2015 seeing Chiki- gets Synvisc diabetes mellitus Test results HgbA1c level 7.6 [...] lesion Location on the right cheek 01/22/2013 scientology area edema Quality painful 01/22/2013 None edema [...] data Encounters Encounter Performer Location Codes Date ([id number]) [id number] EST. PATIENT, LEVEL IV Diagnosis: Type 2 diabetes mellitus without complications[ICD10: E11.9] Diagnosis: Essential (primary) hypertension[ICD10: I10] Diagnosis: Other vitamin B12 deficiency anemias[ICD10: D51.8] Diagnosis: Allergic rhinitis due to animal (cat) (dog) hair and dander[ICD10: J30.81] Daisy Garcia MD [facility] CPT-4: 72396 2016 ([id number]) 83153 EST. 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 PATIENT, LEVEL IV Diagnosis: Type 2 diabetes mellitus without complications[ICD10: E11.9] Diagnosis: Essential (primary) hypertension[ICD10: I10] Diagnosis: Chronic atrial fibrillation[ICD10: I48.2] Daisy Garcia MD, [facility] CPT-4: 65132 04/16/2017 ([id number]) 80740 EST. PATIENT, LEVEL III Diagnosis: Sciatica, left side[ICD10: M54.32] Diagnosis: Sacroiliitis, not elsewhere classified[ICD10: M46.1] Chantell Gracia MD, [facility] CPT-4: 31964 02/23/[id number]) 65574 EST. PATIENT, LEVEL IV Diagnosis: Type 2 diabetes mellitus without complications[ICD10: E11.9] Diagnosis: Essential (primary) hypertension[ICD10: I10] Daisy Garcia MD, [facility] CPT-4: 20128 12/26/2016 [id number] 21388 EST. PATIENT, LEVEL III Diagnosis: Cough[ICD10: R05] Diagnosis: Acute bronchitis, unspecified[ICD10: J20.9] Chantell Garcia MD, [facility] CPT-4: 97129 09/07/2016 ([id number]) 76115 EST. PATIENT, LEVEL IV Diagnosis: Type 2 diabetes mellitus without complications[ICD10: E11.9] Diagnosis: Cough[ICD10: R05] Diagnosis: Acute laryngopharyngitis[ICD10: J06.0] Diagnosis: Acute recurrent maxillary sinusitis[ICD10: J01.01] Daisy Garcia MD, [facility] CPT-4: 14049 08/29/2016 51515 EST. PATIENT, LEVEL IV Diagnosis: Other allergic rhinitis[ICD10: J30.89] Diagnosis: Other vitamin B12 deficiency anemias[ICD10: D51.8] Yady Garcia MD, [facility] CPT-4: 48456 06/12/2016 ([id number]) 19980 EST. PATIENT, LEVEL III Diagnosis: Urinary tract infection, site not specified[ICD10: N39.0] Diagnosis: Fever, unspecified[ICD10: R50.9] Diagnosis: Other vitamin B12 deficiency anemias[ICD10: D51.8] Chantell Garcia MD, [facility] CPT-4: 55585 05/04/2016 ([id number]) 78369 EST. 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 PATIENT, LEVEL IV Diagnosis: Type 2 diabetes mellitus with hyperglycemia[ICD10: E11.65] Diagnosis: Essential (primary) hypertension[ICD10: I10] Daisy Garcia MD, [facility] CPT-4: 04883 11/30/2015 ([id number]) 20866 EST. PATIENT, LEVEL III Diagnosis: Acute recurrent maxillary sinusitis[ICD10: J01.01] Diagnosis: Unspecified acute conjunctivitis, right eye[ICD10: H10.31] Diagnosis: Vitamin B12 deficiency anemia, unspecified[ICD10: D51.9] Chantell Garcia MD , [facility] CPT-4: 99822 09/06/2015 87212 EST. PATIENT, LEVEL III Diagnosis: Pain in right knee[ICD10: M25.561] Diagnosis: Essential (primary) hypertension[ICD10: I10] Diagnosis: Vitamin B12 deficiency anemia, unspecified[ICD10: D51.9] Yady Garcia MD, [facility] CPT-4: 15894 08/04/2015 ([id number]) 78965 EST. PATIENT, LEVEL III Diagnosis: Streptococcal pharyngitis[ICD10: J02.0] Diagnosis: Acute recurrent maxillary sinusitis[ICD10: J01.01] Chantell Garcia MD, [facility] CPT-4: 91688 07/05/2015 ([id number]) 11325 EST. PATIENT, LEVEL IV Diagnosis: Type 2 diabetes mellitus with hyperglycemia[ICD10: E11.65] Diagnosis: Essential (primary) hypertension[ICD10: I10] Diagnosis: Vitamin B12 deficiency anemia, unspecified[ICD10: D51.9] Daisy Garcia MD, [facility] CPT-4: 45500 06/28/2015 ([id number]) 70941 EST. PATIENT, LEVEL IV Diagnosis: DM W/O COMPLICATION TYPE II, UNCONTROLLED[ICD9: 250.02] Diagnosis: ESSENTIAL HYPERTENSION[ICD9: 401.9] Diagnosis: Iron deficiency[ICD9: 280.9] Diagnosis: OT SCREENING MAMMOGRAM[ICD9: V76.12] Diagnosis: B12 deficiency[ICD9: 266.2] Daisy Garcia MD, [facility] CPT- 4: 67942 02/23/2015 ([id number]) 88841 EST. PATIENT, LEVEL IV Diagnosis: DM W/O COMPLICATION TYPE II, UNCONTROLLED[ICD9: 250.02] Diagnosis: ESSENTIAL HYPERTENSION[ICD9: 401.9] Diagnosis: Right knee pain[ICD9: 719.46] Diagnosis: B12 deficiency[ICD9: 266.2] Chantell Garcia MD, [facility] CPT-4: 44180 01/08/2015 ([id number]) 66923 EST. PATIENT, LEVEL IV Diagnosis: DM W/O COMPLICATION TYPE II, UNCONTROLLED[ICD9: 250.02] Diagnosis: ESSENTIAL HYPERTENSION[ICD9: 401.9] Diagnosis: Iron deficiency[ICD9: 280.9] Daisy Garcia MD, [facility] CPT- 4: 06949 09/24/2014 ([id number]) 56677 EST. PATIENT, LEVEL III Diagnosis: Sacroiliitis[ICD9: 720.2] Diagnosis: Left sided sciatica[ICD9: 724.3] Chantell Garcia MD, [facility] CPT-4: 64977 05/11/2014 ([id number]) 40219 EST. PATIENT, LEVEL III Diagnosis: CELLULITIS OF BUTTOCK[ICD9: 682.5] Daisy Garcia MD, [facility] CPT-4: 09546 05/01/2014 05054 EST. PATIENT, LEVEL IV Diagnosis: ESSENTIAL HYPERTENSION[ICD9: 401.9] Diagnosis: DIABETES TYPE II[ICD9: 250.00] Diagnosis: Iron deficiency[ICD9: 280.9] Diagnosis: LUMBAGO[ICD9: 724.2] Daisy Garcia MD, [facility] CPT-4: 83624 04/03/2014 ([id number]) 62768 EST. PATIENT, LEVEL IV Diagnosis: ESSENTIAL HYPERTENSION[SNOMED: 83862503] Diagnosis: DIABETES TYPE II[SNOMED: 138034641] Diagnosis: ANEMIA[ICD9: 285.9] Diagnosis: Iron deficiency[ICD9: 280.9] Daisy Garcia MD, [facility] CPT- 4: 07394 11/24/2013 ([id number]) 37274 EST. PATIENT, LEVEL IV Diagnosis: ESSENTIAL HYPERTENSION[SNOMED: 70006662] Diagnosis: DIABETES TYPE II[SNOMED: 366097847] Diagnosis: EDEMA[ICD9: 782.3] Daisy Garcia MD, [facility] CPT-4: 30874 07/28/2013 ([id number]) 92125 EST. PATIENT, LEVEL IV Diagnosis: ESSENTIAL HYPERTENSION[SNOMED: 00327886] Diagnosis: DIABETES TYPE II[SNOMED: 874058091] Diagnosis: EDEMA[ICD9: 782.3] Diagnosis: B-COMPLEX DEFIC NEC[ICD9: 266.2] Daisy Garcia MD, [facility] CPT-4: 67409 06/16/2013 ([id number]) 18898 EST. PATIENT, LEVEL IV Diagnosis: ESSENTIAL HYPERTENSION[SNOMED: 75644395] Diagnosis: DIABETES TYPE II[SNOMED: 831047828] Diagnosis: EDEMA[ICD9: 782.3] Diagnosis: B-COMPLEX DEFIC NEC[ICD9: 266.2] Daisy Garcia MD, [facility] CPT-4: 96885 01/22/2013 ([id number]) 58298 EST. PATIENT, LEVEL III Diagnosis: Lumbago[ICD9: 724.2] Diagnosis: Sacroiliitis[ICD9: 720.2] Diagnosis: ESSENTIAL HYPERTENSION[SNOMED: 75996244] Daisy Garcia MD, [facility] CPT-4: 54481 10/02/2012 ([id number]) 16161 EST. PATIENT, LEVEL III Diagnosis: ACUTE URI[ICD9: 465.9] Daisy Garcia MD [facility] CPT-4: 21610 08/06/2012 ([id number]) 31562 EST. PATIENT, LEVEL IV Diagnosis: ESSENTIAL HYPERTENSION[SNOMED: 44437593] Diagnosis: DIABETES TYPE II[SNOMED: 868369103] Diagnosis: ANEMIA[ICD9: 285.9] Daisy Garcia MD, [facility] CPT-4: 78070 07/04/2012 ([id number]) 11103 EST. PATIENT, LEVEL IV Diagnosis: ESSENTIAL HYPERTENSION[SNOMED: 68090092] Diagnosis: DIABETES TYPE II[SNOMED: 596054031] Diagnosis: B-COMPLEX DEFIC NEC[ICD9: 266.2] Daisy Garcia MD [facility] CPT-4: 72138 05/22/2012 ([id number]) 05431 EST. PATIENT, LEVEL IV Diagnosis: ESSENTIAL HYPERTENSION[SNOMED: 26141896] Diagnosis: DIABETES TYPE II[SNOMED: 080583431] Diagnosis: LUMBAGO[ICD9: 724.2] Diagnosis: B-COMPLEX DEFIC NEC[ICD9: 266.2] Daisy Garcia MD, [facility] CPT-4: 61501 04/22/2012 43223 EST. PATIENT, LEVEL III Diagnosis: Sciatica of right side[ICD9: 724.3] Diagnosis: Sacroiliitis[ICD9: 720.2] Chantell Garcia MD, [facility] CPT-4: 84683 12/28/2011 ([id number]) 41434 EST. PATIENT, LEVEL IV Diagnosis: DIABETES TYPE II[SNOMED: 456455915] Diagnosis: ESSENTIAL HYPERTENSION[SNOMED: 56562626] Daisy Garcia MD, [facility] CPT-4: 05400 12/20/2011 ([id number]) [id number] EST. PATIENT, LEVEL IV Diagnosis: ESSENTIAL HYPERTENSION[SNOMED: 47692423] Diagnosis: DIABETES TYPE II[SNOMED: 095797971] Diagnosis: PAIN IN LIMB[ICD9: 729.5] Diagnosis: LUMBAGO[ICD9: 724.2] Diagnosis: Sacroiliitis[ICD9: 720.2] Daisy Garcia MD, [facility] CPT-4: 84904 08/23/2011 [id number] EST. 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 PATIENT, LEVEL IV Diagnosis: DIABETES TYPE II[SNOMED: 092469867] Diagnosis: ESSENTIAL HYPERTENSION[SNOMED: 50056716] Diagnosis: Feces incontinence[ICD9: 787.60] Daisy Garcia MD, [facility] CPT-4: 14513 04/26/2011 Plan of Care Planned Activity Notes Codes Status Date Patient Education: Patient Medication Summary Completed 08/21/2017 [...] shot today. 06/18/2017 [phone] [facility] ([facility] min) Moderate 06/18/2017 Patient Education: Patient [...] 5 days 06/07/2017 App[facility]ment: [facility] [phone] [facility] [place] (15 min) Moderate 06/07/2017 Patient Education: Patient Medication Summary Completed 06/07/2017 Patient Education: Obesity Completed 06/07/2017 Appointment: Injection 05/09/2017 Patient Education: Patient Medication Summary Completed 05/09/2017 [facility]ment: [phone] [facility] [place] (15 min) Moderate 04/26/2017 Patient Education: [...] and cardizem 04/16/2017 [facility]: [phone] [facility] [place] (15 min) Moderate 04/16/2017 Appointment: Daisy Garcia WPtel: [phone] [facility] [place] (15 min) Moderate 04/16/2017 Patient Education: [...] controlled. 12/26/2016 [facility]ment: [phone] [facility] (15 min) Moderate 12/26/2016 Patient Education: Patient Medication Summary Completed 12/26/2016 Appointment: Injection 11/14/2016 Patient Education: Patient Medication Summary Completed 11/14/2016 Visit Plan: Bronchitis - acute case of bronchitis identified. Pt has been given antibiotics, breathing treatments as appropriate, and pt has been instructed to call if symptoms are not improved, or if symptoms acutely worsen. 09/07/2016 Appointment: Chantell Singh WPtel: [phone] [phone] [place] (30 min) Complex 09/07/2016 Patient [...] improvement. 08/29/2016 App[facility]ment: [phone] [facility] ([facility] min) Moderate 08/29/2016 Patient Education: Patient Medication Summary Completed 08/29/2016 Patient Education: Obesity Completed 08/29/2016 [facility]ment: [phone] [facility] [place] (15 min) Moderate 08/22/2016 Appointment: Daisy Garcia WPtel: [phone] [phone] [place] (15 min) Moderate 08/02/2016 Appointment: Chantell Singh WPtel: [phone] [phone] [place] (30 min) Complex 08/02/2016 Visit Plan: [...] spray. 06/12/2016 Appointment: Yady Harper WPtel: [phone] [facility] (15 min) Moderate 06/12/2016 Patient Education: [...] office 05/04/2016 Appointment: Chantell Singh WPtel: [phone] [phone] [place] (15 min) Moderate 05/04/2016 Patient Education: [...] triamcinalone cream. 03/30/2016 [facility]ment: [phone] [facility] [place] (15 min) Moderate 03/30/2016 Patient Education: Patient Medication Summary Completed 03/30/2016 Patient Education: Hypertension Completed 03/30/2016 Appointment: Injection 03/17/2016 Patient Education: Patient Medication Summary Completed 03/17/2016 Appointment: Injection 02/15/2016 Patient Education: Patient Medication Summary Completed 02/15/2016 [facility]ment: [facility] [phone] [facility] [place] (15 min) Moderate 01/26/2016 Appointment: Injection [...] acute concerns. 11/30/2015 Appointment: Daisy Garcia WPtel: [facility] [place] [facility] [place] [place] Moderate 11/30/2015 Patient Education: Patient Medication Summary Completed 11/30/2015 Patient Education: Obesity Completed 11/30/2015 Appointment: Daisy Garcia WPtel: [facility] [place] ([place] min) Moderate 10/26/2015 Visit Plan: [...] Medication Summary Completed 07/05/2015 Care Plan: Zeke Briones [place] Pending 07/05/2015 Visit Plan: Diabetes Mellitus [...] at home. 06/28/2015 Appointment: Daisy [phone] (15 min) Moderate 06/28/2015 Patient Education: Patient [...] Daisy Garcia [facility]Ptel[facility] Follow up 02/23/2015 Patient Education: Patient Medication Summary Completed 02/23/2015 Patient Education: Hypertension Completed 02/23/2015 Care Plan: SCREENINGMAMMOGRAPHYDIGITAL LOINC : 84506-4 Ordered 02/23/2015 Visit Plan: Depression - uncontrolled [...] Care Plan: COMPLETE CBC AUTOMATED LOINC : 58485-0 Ordered 01/08/2015 Appointment: Injection 12/08/2014 Patient Education: [...] and diarrhea. 09/24/2014 Appointment: Daisy Garcia WPtel: [facility] Follow up 09/24/2014 Patient Education: Patient Medication Summary Completed 09/24/2014 Patient Education: Hypertension Completed 09/24/2014 Appointment: Daisy Garcia WPtel: [facility] [place] Injection 08/24/2014 Patient Education: Patient Medication [...] warmth, discharge. 05/01/2014 Appointment: Daisy Garcia WPtel: [facility] Follow up 05/01/2014 Patient Education: Patient Medication Summary Completed 05/01/2014 Appointment: [phone] [place] Injection 04/27/2014 Patient Education: Patient Medication [...] pain 04/03/2014 [phone] [place] Follow up 04/03/2014 Patient Education: Patient Medication Summary Completed 04/03/2014 Patient Education: Hypertension Completed 04/03/2014 Visit Plan: vitamin b12 injection 03/24/2014 Appointment: Daisy Garcia WPtel: [facility] [place] In[facility] 03/24/2014 Patient Education: Patient Medication Summary Completed 03/24/2014 Appointment: Daisy Garcia WPtel: [facility] [place] Follow up 03/23/2014 Appointment: [facility]el[phone] [place] Injection 02/24/2014 Patient Education: Patient Medication Summary Completed 02/24/2014 [phone] [place] Injection 01/09/2014 Patient Education: Patient [...] Daisy Garcia WPtel: [facility] Follow up 11/24/2013 Patient Education: Patient Medication Summary Completed 11/24/2013 Patient Education: Hypertension Completed 11/24/2013 Appointment: Daisy Garcia WPtel: [facility] [place] Follow up 11/12/2013 Appointment: Daisy Garcia WPtel: [facility] [place] Follow up 10/27/2013 [facility]ment: [phone] [place] Injection 09/18/2013 Patient Education: Patient Medication Summary Completed 09/18/2013 App[facility]ment: [phone] [place] Injection 08/22/2013 Patient Education: Patient [...] labs today 07/28/2013 Appointment: [phone] [facility] 07/28/2013 Patient Education: Patient Medication Summary Completed 07/28/2013 Patient Education: Hypertension Completed 07/28/2013 App[facility]ment: [phone] [place] Injection 06/20/2013 Visit Plan: Diabetes [...] peripheral edema. 06/16/2013 Appointment: Daisy Garcia [facility]el: [phone] [place] Follow up 06/16/2013 Patient Education: Patient Medication Summary Completed 06/16/2013 Patient Education: Hypertension Completed 06/16/2013 [facility]ment: [phone] [place] Injection 05/21/2013 Patient Education: Patient Medication Summary Completed 05/21/2013 Appointment: [facility]el[phone] [place] Injection 04/23/2013 Patient Education: Patient Medication Summary Completed 04/23/2013 Appointment: Daisy Garcia WPtel: [phone] [facility] [place] Injection 03/24/2013 Patient Education: Patient Medication Summary Completed 03/24/2013 Appointment: Daisy Garcia WPtel: [phone] [facility] [place] Injection 02/20/2013 Patient Education: Patient Medication [...] edema. 01/22/2013 Appointment: Daisy [facility]el: [phone] [place] Follow up 01/22/2013 Patient Education: Patient Medication Summary Completed 01/22/2013 Patient Education: Hypertension Completed 01/22/2013 Appointment: Daisy Garcia [facility]el: [phone] [facility] [place] Injection 01/21/2013 Patient Education: Patient Medication Summary Completed 12/19/2012 Appointment: Daisy [facility]el: [phone] [facility] [place] Injection 11/22/2012 Appointment: Daisy [facility]el: [phone] [facility] [place] Injection 11/20/2012 Patient Education: Patient Medication Summary Completed 11/20/2012 [phone] [place] Injection 11/08/2012 Appointment: [facility]el[phone] [place] Injection 10/23/2012 Patient Education: Patient Medication [...] Completed 10/02/2012 [phone] [place] Lab Draw 09/16/2012 Patient Education: [...] office. 08/06/2012 Appointment: [id number] Sick 08/06/2012 Patient Education: Patient Medication Summary Completed 08/06/2012 Patient Education: Patient Medication Summary Completed 07/19/2012 Visit Plan: Joint Injection - Pt was given post - injection instructions. The pt has been advised to use antiinflammatories post injection today, ice to the injected site, call if redness, warmth, or increased pain occurs at the site of injection. 07/10/2012 Appointment: Daisy Garcia WPtel: [phone] [facility] [place] Injection 07/10/2012 Patient Education: Patient Medication [...] less controlled. 07/04/2012 Appointment: [facility]el: [phone] [place] Follow up 07/04/2012 Patient Education: Patient Medication Summary Completed 07/04/2012 Patient Education: Hypertension Completed 07/04/2012 Appointment: Daisy Garcia WPtel: [phone] [facility] [place] Injection 06/19/2012 Patient Education: Patient Medication [...] Chant[facility] Singh [facility]Ptel[facility] Follow up 05/22/2012 Appointment: [phone] Follow up 05/22/2012 Patient Education: Patient [...] office 04/22/2012 Appointment: Chantell Singh WPtel: [phone] [facility] Established Patient Preventative visit 04/22/2012 Patient Education: Patient Medication Summary Completed 04/22/2012 Patient Education: High Blood Pressure: Essential Hypertension Completed 2011 Appointment: Chantell Singh WPtel: [phone] [facility] [place] Injection 03/19/2012 Patient Education: Patient Medication Summary Completed 03/19/2012 Appointment: Daisy Garcia WPtel: [phone] [facility] [place] Injection 02/15/2012 Patient Education: Patient Medication Summary Completed 02/15/2012 Appointment: Daisy Garcia WPtel: [phone] [facility] [place] Injection 01/18/2012 Patient Education: Patient Medication [...] worse. 12/28/2011 Appointment: [facility]el[phone] [place] Other 12/28/2011 Patient Education: Patient [...] today. 12/20/2011 Appointment: Daisy Garcia WPtel: [phone] [facility] [place] Other 12/20/2011 Patient Education: Patient Medication Summary Completed 12/20/2011 Patient Education: High Blood Pressure: Essential Hypertension Completed 2011 Appointment: Chnatell Singh WPtel: [phone] [facility] [place] Injection 11/07/2011 Patient Education: Patient Medication Summary Completed 11/07/2011 Appointment: Daisy Garcia WPtel: [phone] [facility] [place] Injection 10/03/2011 Patient Education: Patient Medication Summary Completed 10/03/2011 Appointment: Daisy Garcia WPtel: [phone] [facility] [place] Injection 08/28/2011 Visit Plan: Hypertension - [...] left today 08/23/2011 Appointment: Daisy Garcia WPtel: [phone] [facility] [place] Other 08/23/2011 Patient Education: Patient Medication Summary Completed 08/23/2011 Patient Education: High Blood Pressure: Essential Hypertension Completed 2011 Appointment: Chantell Singhl: [phone] [phone] [place] Injection 07/28/2011 Patient Education: Patient Medication Summary Completed 07/28/2011 Visit Plan: b12 injection 06/29/2011 Appointment: Chantell Singh WPtel: [phone] [phone] [place] Injection 06/29/2011 Patient Education: Patient [...] the office 05/23/2011 Appointment: Chantell Singh WPtel: [phone] [facility] [place] Other 05/23/2011 Patient Education: Patient Medication Summary [...] Daisy Garcia [facility]Ptel: [facility] [place] 04/26/2011 Patient Education: Patient Medication Summary Completed 04/26/2011 Instructions Comment . Diabetes Mellitus - controlled - per [...] injections in the right knee by Dr. Banwart, pt is going to schedule surgery with [...] use hydrocodone as needed for pain . Sinusitis - Pt has acute infection [...] the bymakenzie. Once pt runs out of diann, she [...] inability to walk 100 feet without resting. . Sacroilitis with sciatica-discussed natural and expected [...]
--- OUTSIDE RECORDS SUMMARY | 2018-07-17 07:23 | XMS REPORT | CCD ---
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 Name Role Phone Daisy Garcia PP Unavailable CCM Unavailable Summary Purpose Interface Exchange Insurance Providers Payer name Policy type / Coverage type Covered alliance party ID Effective Begin Date Effective End Date WPS Medicare Part B Medicare Part B [id number] Unknown AETNA Medicare Part B [id number] Unknown Family history Sister Diagnosis Age At [...] 1 daughter 04/21/[address]: 847349458 Nonsmoker 04/21/[address]: 192543702 Never drinks alcohol 04/21/2011 Has the patient [...] Start Date Stop Date Status Fill Instructions Lasix 20 mg tablet RxNorm: 733084 Tablet(s) TAKE ONE TABLET BY MOUTH EVERY DAY NEEDED FOR SWELLING. TAKE POTASSIUM WITH EACH DOSE 201701/07/2018 Active glipizide 10 mg tablet RxNorm: 938483 TAKE ONE TABLET BY MOUTH TWICE A DAY 08/28/2017 08/22/2018 Active Request already responded to by other means (e.g. phone or fax) glipizide 10 mg tablet RxNorm: 897638 Tablet(s) TAKE ONE TABLET BY MOUTH TWICE A DAY 08/23/2017 08/27/2017 Inactive cyanocobalamin (vit B-12) 1,000 mcg/mL injection solution RxNorm: 341701 1 Milliliter(s) Inj 08/21/2017 08/21/2017 Inactive Synthroid 50 mcg tablet RxNorm: 350636 TAKE ONE TABLET BY MOUTH EVERY DAY. 08/15/2017 10/13/2017 Active metformin ER 500 mg tablet,extended release 24 hr RxNorm: 230470 TAKE TWO TABLETS BY MOUTH TWICE A DAY 07/31/20172017 Active Tricor 145 mg tablet RxNorm: 719756 TAKE ONE TABLET BY MOUTH DAILY 07/31/2017 11/27/2017 Active spironolactone 25 mg tablet RxNorm: 962428 TAKE ONE TABLET BY MOUTH TWICE A DAY 07/31/2017 07/25/2018 Active Tenex 1 mg tablet RxNorm: 058076 TAKE ONE TABLET BY MOUTH DAILY 07/20/2017 01/15/2018 Active cyanocobalamin (vit B-12) 1,000 mcg/mL injection solution RxNorm: 710153 1 Milliliter(s) Inj 07/18/2017 07/18/2017 Inactive Byetta 10 mcg/dose(250 mcg/mL)2.4 mL subcutaneous pen injector RxNorm: 910158 INJECT 10 MCG UNDER THE SKIN TWO TIMES A DAY ( START AFTER 5 MCG DOSE IS COMPLETE ) 06/18/2017 04/13/2018 Active potassium chloride ER 20 mEq tablet,extended release(part/ cryst) RxNorm: 7528369 TAKE ONE TABLET BY MOUTH DAILY WHEN YOU TAKE LASIX (FUROSEMIDE) 06/18/2017 09/15/2017 Active Flonase Allergy Relief 50 mcg/actuation nasal spray, suspension RxNorm: 5336409 1 [place] NASAL BID 06/18/20172017 Active Kenalog 40 mg/mL suspension for injection RxNorm: 4973693 1 Milliliter(s) Inj 06/18/2017 06/18/2017 Inactive cyanocobalamin (vit B-12) 1,000 mcg/mL injection solution RxNorm: 432746 1 Milliliter(s) Inj 06/18/2017 06/18/2017 Inactive Lasix 20 mg tablet RxNorm: 391058 Tablet(s) TAKE ONE TABLET BY MOUTH EVERY DAY NEEDED FOR SWELLING. TAKE POTASSIUM WITH EACH DOSE 201609/09/2017 Inactive cyanocobalamin (vit B-12) 1,000 mcg/mL injection solution RxNorm: 396307 1 Milliliter(s) Inj 05/09/2017 05/09/2017 Inactive cyanocobalamin (vit B-12) 1,000 mcg/mL injection solution RxNorm: 230737 1 Milliliter(s) Inj 04/04/2017 04/04/2017 Inactive metformin ER 500 mg tablet,extended release 24 hr RxNorm: 498273 TAKE TWO TABLETS BY MOUTH TWICE A DAY 03/01/20172016 Inactive Kenalog 40 mg/mL suspension for injection RxNorm: 8096980 1 Milliliter(s) Inj 02/23/2017 02/23/2017 Inactive amlodipine 5 mg tablet RxNorm: 861756 TAKE ONE TABLET BY MOUTH TWICE A DAY 02/22/2017 11/18/2017 Active glipizide 10 mg tablet RxNorm: 081810 TAKE ONE TABLET BY MOUTH TWICE A DAY 02/12/2017 08/10/2017 Inactive cyanocobalamin (vit B-12) 1,000 mcg/mL injection solution RxNorm: 067844 Milliliter(s) Inj 01/23/2017 01/23/2017 Inactive Synthroid 50 mcg tablet RxNorm: 236328 TAKE ONE TABLET BY MOUTH EVERY DAY. 12/21/2016 06/18/2017 Inactive potassium chloride ER 20 mEq tablet,extended release(part/ cryst) RxNorm: 7711318 TAKE ONE TABLET BY MOUTH DAILY WHEN YOU TAKE LASIX (FUROSEMIDE) 12/21/2016 04/19/2017 Inactive Tricor 145 mg tablet RxNorm: 671759 TAKE ONE TABLET BY MOUTH DAILY 12/21/2016 06/06/2017 Inactive Lasix 20 mg tablet RxNorm: 718033 TAKE ONE TABLET BY MOUTH EVERY DAY NEEDED FOR SWELLING. TAKE POTASSIUM WITH EACH DOSE 12/11/2016 04/09/2017 Inactive cyanocobalamin (vit B-12) 1,000 mcg/mL injection solution RxNorm: 761271 1 Milliliter(s) Inj 11/14/2016 11/14/2016 Inactive simvastatin 20 mg tablet RxNorm: 455922 TAKE ONE TABLET BY MOUTH EVERY NIGHT AT BEDTIME 10/23/2016 04/15/2017 Inactive Tenex 1 mg tablet RxNorm: 362372 TAKE ONE TABLET BY MOUTH DAILY 10/16/2016 11/14/2016 Inactive glipizide 10 mg tablet RxNorm: 371247 TAKE ONE TABLET BY MOUTH TWICE A DAY 09/20/2016 02/11/2017 Inactive doxycycline hyclate 100 mg capsule RxNorm: 3884188 1 Capsule(s) PO BID 09/12/2016 09/18/2016 Inactive doxycycline hyclate 100 mg capsule RxNorm: 1921434 1 Capsule(s) PO BID 09/12/2016 09/11/2016 Inactive Phenergan with Codeine Syrup RxNorm: 5-10 Milliliter(s) PO Q6 PRN 09/07/2016 No Stop Date Active prednisone 20 mg tablet RxNorm: 954394 1 Tablet(s) PO BID 09/0709/11/2016 Inactive Kenalog 40 mg/mL suspension for injection RxNorm: 6327279 1 Milliliter(s) Inj 09/07/2016 09/07/2016 Inactive Tessalon Perles 100 mg capsule RxNorm: 551479 1 Capsule(s) PO TID PRN 09/01/2016 09/20/2016 Inactive Zyrtec 10 mg capsule RxNorm: 5628868 1 Capsule(s) PO daily 03/26/2017 Inactive Flonase Allergy Relief 50 mcg/actuation nasal spray, suspension RxNorm: 4479538 1 [place] NASAL BID 08/29/20162016 Inactive cyanocobalamin (vit B-12) 1,000 mcg/mL injection solution RxNorm: 550734 1 Milliliter(s) Inj 08/29/2016 08/29/2016 Inactive metformin ER 500 mg tablet,extended release 24 hr RxNorm: 075188 Tablet(s) TAKE TWO TABLETS BY MOUTH TWICE A DAY 08/28/2016 02/23/2017 Inactive Lopressor 100 mg tablet RxNorm: 917935 TAKE ONE TABLET BY MOUTH DAILY 06/27/2016 04/15/2017 Inactive cetirizine 10 mg tablet RxNorm: 5071601 1 Tablet(s) PO daily 07/11/2016 Inactive Flonase Allergy Relief 50 mcg/actuation nasal spray, suspension RxNorm: 2042531 1 [place] NASAL BID 06/12/20162016 Inactive cyanocobalamin (vit B-12) 1,000 mcg/mL injection solution RxNorm: 217550 Milliliter(s) Inj 06/12/2016 06/12/2016 Inactive spironolactone 25 mg tablet RxNorm: 501299 TAKE ONE TABLET BY MOUTH TWICE A DAY 06/06/2016 03/02/2017 Inactive Request already responded to by other means (e.g. phone or fax) spironolactone 25 mg tablet RxNorm: 815730 Tablet(s) TAKE ONE TABLET BY MOUTH TWICE A DAY 05/29/2016 06/05/2016 Inactive ceftriaxone 500 mg solution for injection RxNorm: 9365127 2 Milliliter(s) Inj 05/04/2016 05/04/2016 Inactive cyanocobalamin (vit B-12) 1,000 mcg/mL injection solution RxNorm: 040009 Milliliter(s) Inj 05/04/2016 05/04/2016 Inactive Cipro 500 mg tablet RxNorm: 418777 1 Tablet(s) PO BID 201505/10/2016 Inactive ShoplinsTouch Ultra Test strips RxNorm: TEST DAILY 04/24/2016 04/18/2017 Inactive Byetta 10 mcg/dose(250 mcg/mL)2.4 mL subcutaneous pen injector RxNorm: 076949 INJECT 10 MCG UNDER THE SKIN TWO TIMES A DAY ( START AFTER 5 MCG DOSE IS COMPLETE ) 04/18/2016 03/13/2017 Inactive Lasix 20 mg tablet RxNorm: 989177 TAKE ONE TABLET BY MOUTH EVERY DAY NEEDED FOR SWELLING. TAKE POTASSIUM WITH EACH DOSE 04/07/2016 09/03/2016 Inactive potassium chloride ER 20 mEq tablet,extended release(part/ cryst) RxNorm: 9741478 TAKE ONE TABLET BY MOUTH DAILY WHEN YOU TAKE LASIX (FUROSEMIDE) 04/07/2016 09/03/2016 Inactive triamcinolone acetonide 0.5 % topical cream RxNorm: 9577709 1 Application TOP BID to lesions on buttock 03/30/20162015 Inactive metformin ER 500 mg tablet,extended release 24 hr RxNorm: 895579 TAKE TWO TABLETS BY MOUTH TWICE A DAY 03/23/20162016 Inactive glipizide 10 mg tablet RxNorm: 028019 TAKE ONE TABLET BY MOUTH TWICE A DAY 03/17/2016 11/11/2016 Inactive Request already responded to by other means (e.g. phone or fax) cyanocobalamin (vit B-12) 1,000 mcg/mL injection solution RxNorm: 200658 Milliliter(s) Inj 03/17/2016 03/17/2016 Inactive glipizide 10 mg tablet RxNorm: 416758 Tablet(s) TAKE ONE TABLET BY MOUTH TWICE A DAY 03/13/2016 03/16/2016 Inactive Tricor 145 mg tablet RxNorm: 073310 TAKE ONE TABLET BY MOUTH ONCE A DAY 02/18/2016 02/11/2017 Inactive Request already responded to by other means (e.g. phone or fax) amlodipine 5 mg tablet RxNorm: 369425 TAKE ONE TABLET BY MOUTH TWICE A DAY 02/18/2016 08/15/2016 Inactive Request already responded to by other means (e.g. phone or fax) cyanocobalamin (vit B-12) 1,000 mcg/mL injection solution RxNorm: 002872 1 Milliliter(s) Inj 02/15/2016 02/15/2016 Inactive amlodipine 5 mg tablet RxNorm: 525377 Tablet(s) TAKE ONE TABLET BY MOUTH TWICE A DAY 02/14/2016 02/17/2016 Inactive Tricor 145 mg tablet RxNorm: 556748 1 Tablet(s) PO daily TAKE ONE TABLET BY MOUTH ONCE A DAY 02/14/2016 02/17/2016 Inactive Synthroid 50 mcg tablet RxNorm: 079670 TAKE ONE TABLET BY MOUTH EVERY DAY. 01/31/2016 08/27/2016 Inactive hydrocodone 5 mg-acetaminophen 325 mg tablet RxNorm: 875479 1-2 Tablet(s) PO Q4 PRN as needed pain 01/28/2016 No Stop Date Active cyanocobalamin (vit B-12) 1,000 mcg/mL injection solution RxNorm: 388702 Milliliter(s) Inj 01/19/2016 01/19/2016 Inactive metformin ER 500 mg tablet,extended release 24 hr RxNorm: 657055 TAKE TWO TABLETS BY MOUTH TWICE A DAY 01/18/20162015 Inactive cyanocobalamin (vit B-12) 1,000 mcg/mL injection solution RxNorm: 056305 1 Milliliter(s) Inj 12/07/2015 12/07/2015 Inactive metformin ER 500 mg tablet,extended release 24 hr RxNorm: 414430 TAKE TWO TABLETS BY MOUTH TWICE A DAY 10/18/20152015 Inactive simvastatin 20 mg tablet RxNorm: 882603 1 Tablet(s) PO QHS TAKE ONE TABLET BY MOUTH AT BEDTIME 10/08/2015 10/01/2016 Inactive Tenex 1 mg tablet RxNorm: 961949 TAKE ONE TABLET BY MOUTH DAILY 10/04/2015 09/27/2016 Inactive Lopressor 100 mg tablet RxNorm: 855296 TAKE ONE TABLET BY MOUTH DAILY 09/20/2015 06/15/2016 Inactive Diflucan 150 mg tablet RxNorm: 204089 1 Tablet(s) PO daily 02/201609/12/2015 Inactive cyanocobalamin (vit B-12) 1,000 mcg/mL injection kit RxNorm: 929948 kit Inj 09/06/2015 09/06/2015 Inactive gentamicin 0.3 % eye drops RxNorm: 825123 2 Drop(s) OPH QID 02/201609/12/2015 Inactive ceftriaxone 500 mg solution for injection RxNorm: 2865665 Inj 09/06/2015 09/06/2015 Inactive Keflex 500 mg capsule RxNorm: 955637 1 Capsule(s) PO TID 201509/12/2015 Inactive hydrocodone 5 mg-acetaminophen 325 mg tablet RxNorm: 261552 1-2 Tablet(s) PO Q4 PRN as needed pain 08/09/2015 01/27/2016 Inactive Lortab 5 mg-500 mg tablet RxNorm: 382558 1-2 Tablet(s) PO Q4 PRN as needed pain 08/03/2015 08/08/2015 Inactive Diflucan 150 mg tablet RxNorm: 312913 1 Tablet(s) PO daily 07/16/2015 Inactive Lasix 20 mg tablet RxNorm: 838019 TAKE ONE TABLET BY MOUTH EVERY DAY NEEDED FOR SWELLING. TAKE POTASSIUM WITH EACH DOSE 07/13/2015 01/08/2016 Inactive spironolactone 25 mg tablet RxNorm: 798792 TAKE ONE TABLET BY MOUTH TWICE A DAY 07/13/2015 05/07/2016 Inactive potassium chloride ER 20 mEq tablet,extended release(part/ cryst) RxNorm: 128067 TAKE ONE TABLET BY MOUTH DAILY WHEN YOU TAKE LASIX (FUROSEMIDE) 07/13/2015 01/08/2016 Inactive Tessalon Perles 100 mg capsule RxNorm: 366351 1 Capsule(s) PO TID PRN 07/05/2015 08/31/2016 Inactive Keflex 500 mg capsule RxNorm: 212367 1 Capsule(s) PO TID 201407/14/2015 Inactive Kenalog 40 mg/mL suspension for injection RxNorm: 8031474 Milliliter(s) Inj 07/05/2015 07/05/2015 Inactive ceftriaxone 500 mg solution for injection RxNorm: 7517758 Inj 07/05/2015 07/05/2015 Inactive cyanocobalamin (vit B-12) 1,000 mcg/mL injection solution RxNorm: 719237 Milliliter(s) Inj 06/28/2015 06/28/2015 Inactive Synthroid 50 mcg tablet RxNorm: 905920 TAKE ONE TABLET BY MOUTH EVERY DAY. 06/21/2015 11/17/2015 Inactive metformin ER 500 mg tablet,extended release 24 hr RxNorm: 946260 TAKE TWO TABLETS BY MOUTH TWICE A DAY 06/14/20152015 Inactive glipizide 10 mg tablet RxNorm: 375555 TAKE ONE TABLET BY MOUTH TWICE A DAY 05/31/2015 02/24/2016 Inactive cyanocobalamin (vit B-12) 1,000 mcg/mL injection solution RxNorm: 750270 Milliliter(s) Inj 05/13/2015 05/13/2015 Inactive Tricor 145 mg tablet RxNorm: 426576 1 Tablet(s) PO daily TAKE ONE TABLET BY MOUTH ONCE A DAY 05/07/2015 05/06/2015 Inactive Tricor 145 mg tablet RxNorm: 059860 1 Tablet(s) PO daily TAKE ONE TABLET BY MOUTH ONCE A DAY 05/07/2015 01/31/2016 Inactive Tricor 145 mg tablet RxNorm: 896247 TAKE ONE TABLET BY MOUTH ONCE A DAY 05/06/2015 05/06/2015 Inactive Byetta 10 mcg/dose(250 mcg/mL)2.4 mL subcutaneous pen injector RxNorm: 875460 Microgram(s) SQ 10mcg twice daily ( start after 5mcg dose is complete) 04/01/2015 03/25/2016 Inactive Byetta 5 mcg/dose (250 mcg/mL)1.2 mL subcutaneous pen injector RxNorm: 222582 Microgram(s) SQ 5mcg twice daily x 1 month 03/04/2015 04/02/2015 Inactive Byetta 10 mcg/dose(250 mcg/mL)2.4 mL subcutaneous pen injector RxNorm: 167438 Microgram(s) SQ 10mcg twice daily ( start after 5mcg dose is complete) 03/04/2015 03/31/2015 Inactive Byetta 5 mcg/dose (250 mcg/mL)1.2 mL subcutaneous pen injector RxNorm: 886366 Microgram(s) SQ 5mcg twice daily x 1 month 03/04/2015 03/03/2015 Inactive Byetta 10 mcg/dose(250 mcg/mL)2.4 mL subcutaneous pen injector RxNorm: 319129 Microgram(s) SQ 10mcg twice daily ( start after 5mcg dose is complete) 03/04/2015 03/03/2015 Inactive cyanocobalamin (vit B-12) 1,000 mcg/mL injection solution RxNorm: 500871 Milliliter(s) Inj 02/23/2015 02/23/2015 Inactive cyanocobalamin (vit B-12) 1,000 mcg/mL injection solution RxNorm: 878538 Milliliter(s) Inj 01/08/2015 01/08/2015 Inactive simvastatin 20 mg tablet RxNorm: 115554 TAKE ONE TABLET BY MOUTH AT BEDTIME 01/07/2015 10/03/2015 Inactive Lortab 5 mg-500 mg tablet RxNorm: 928727 1-2 Tablet(s) PO Q4 PRN as needed q 4- 6hrs prn pain 12/15/2014 08/02/2015 Inactive Lortab 5 mg-500 mg tablet RxNorm: 689231 1-2 Tablet(s) PO Q4 PRN as needed q 4- 6hrs prn pain 12/15/2014 08/02/2015 Inactive amlodipine 5 mg tablet RxNorm: 070827 TAKE ONE TABLET BY MOUTH TWICE A DAY 12/14/2014 12/13/2014 Inactive amlodipine 5 mg tablet RxNorm: 672612 TAKE ONE TABLET BY MOUTH TWICE A DAY 12/14/2014 03/13/2015 Inactive cyanocobalamin (vit B-12) 1,000 mcg/mL injection solution RxNorm: 770328 Milliliter(s) Inj 12/08/2014 12/08/2014 Inactive Synthroid 50 mcg tablet RxNorm: 800886 TAKE ONE TABLET BY MOUTH EVERY DAY. 10/29/2014 04/26/2015 Inactive Lasix 20 mg tablet RxNorm: 105303 Tablet(s) TAKE ONE TABLET BY MOUTH EVERY DAY NEEDED FOR SWELLING. TAKE POTASSIUM WITH EACH DOSE 201405/25/2015 Inactive potassium chloride ER 20 mEq tablet,extended release(part/ cryst) RxNorm: 098056 Tablet(s) TAKE ONE TABLET BY MOUTH EVERY DAY WHEN YOU TAKE LASIX (FUROSEMIDE) 10/28/2014 05/25/2015 Inactive cyanocobalamin (vit B-12) 1,000 mcg/mL injection solution RxNorm: 033451 Milliliter(s) Inj 10/26/2014 10/26/2014 Inactive OneTouch Ultra Test strips RxNorm: TEST TWO TIMES A DAY 201405/10/2028 Active OneTouch Ultra Test strips RxNorm: 1 Miscellaneous BID 201410/21/2014 Inactive dx: 250.02 Victoza 2-J Luis 0.6 mg/0.1 mL (18 mg/3 mL) subcutaneous pen injector RxNorm: 453168 1.8 Milligram(s) SQ daily 09/24/201402/22 Inactive cyanocobalamin (vit B-12) 1,000 mcg/mL injection solution RxNorm: 873089 Milliliter(s) Inj 09/24/2014 09/24/2014 Inactive Tenex 1 mg tablet RxNorm: 207165 1 Tablet(s) PO daily TAKE ONE TABLET BY MOUTH EVERY DAY 09/24/2014 10/03/2015 Inactive Lopressor 100 mg tablet RxNorm: 072422 TAKE ONE TABLET BY MOUTH EVERY DAY 09/14/2014 06/10/2015 Inactive Lopressor 100 mg tablet RxNorm: 939460 1 Tablet(s) PO daily TAKE ONE TABLET BY MOUTH EVERY DAY 09/14/2014 09/13/2014 Inactive cyanocobalamin (vit B-12) 1,000 mcg/mL injection solution RxNorm: 482015 Milliliter(s) Inj 08/24/2014 08/24/2014 Inactive [SAVINGS FOR UNINSURED PATIENTS - - BIN:[id number], PCN: [id number], Group: [id number], ID# [id number], Process claim through mokono, for questions: . THIS IS NOT INSURANCE.] Victoza 2-J Luis 0.6 mg/0.1 mL (18 mg/3 mL) subcutaneous pen injector RxNorm: 038901 1.2 Milligram(s) SQ daily 08/05/201409/23 Inactive glipizide 10 mg tablet RxNorm: 359504 TAKE ONE TABLET BY MOUTH TWICE A DAY 07/28/2014 05/23/2015 Inactive Tenex 1 mg tablet RxNorm: 145656 TAKE ONE TABLET BY MOUTH EVERY DAY 07/02/2014 07/01/2014 Inactive Tenex 1 mg tablet RxNorm: 649647 TAKE ONE TABLET BY MOUTH EVERY DAY 07/02/2014 09/23/2014 Inactive spironolactone 25 mg tablet RxNorm: 829862 TAKE ONE TABLET BY MOUTH TWICE A DAY 07/02/2014 04/27/2015 Inactive spironolactone 25 mg tablet RxNorm: 632950 Tablet(s) PO TAKE ONE TABLET BY MOUTH TWICE A DAY 06/30/2014 07/01/2014 Inactive Tenex 1 mg tablet RxNorm: 502934 Tablet(s) PO TAKE ONE TABLET BY MOUTH EVERY DAY 06/30/2014 07/01/2014 Inactive Lortab 5 mg-500 mg tablet RxNorm: 178807 1-2 Tablet(s) PO Q4 PRN as needed q 4- 6hrs prn pain 06/22/2014 12/14/2014 Inactive metformin ER 500 mg tablet,extended release 24 hr RxNorm: 785955 Tablet(s) PO TAKE TWO TABLETS BY MOUTH TWICE A DAY 06/05/2014 06/13/2015 Inactive [SAVINGS FOR UNINSURED PATIENTS -- BIN:[id number], PCN: [id number], Group: [id number], ID# [id number], Process claim through mokono, for questions: . THIS IS NOT INSURANCE.] cyanocobalamin (vit B-12) 1,000 mcg/mL injection solution RxNorm: 496450 1 Milliliter(s) Inj monthly 06/01/201406/01 Inactive Kenalog 40 mg/mL suspension for injection RxNorm: 0687283 1 Milliliter(s) Inj 05/11/2014 05/11/2014 Inactive cyanocobalamin (vit B-12) 1,000 mcg/mL injection kit RxNorm: 894529 Milliliter(s) Inj 04/27/2014 04/27/2014 Inactive amlodipine 5 mg tablet RxNorm: 340053 TAKE ONE TABLET BY MOUTH TWICE A DAY 04/02/2014 07/30/2014 Inactive cyanocobalamin (vit B-12) 1,000 mcg/mL injection kit RxNorm: 575731 1 Milliliter(s ) Inj 03/24/2014 03/24/2014 Inactive [SAVINGS FOR UNINSURED PATIENTS -- BIN:[id number] , PCN: [id number], Group: [id number], ID# [id number], Process claim through mokono, for questions: . THIS IS NOT INSURANCE.] cyanocobalamin (vit B-12) 1,000 mcg/mL injection solution RxNorm: 151724 1 Milliliter(s) Inj 03/24/2014 03/24/2014 Inactive Synthroid 50 mcg tablet RxNorm: 460353 TAKE ONE TABLET BY MOUTH EVERY DAY. 03/01/2014 09/26/2014 Inactive Lasix 20 mg tablet RxNorm: 828662 TAKE ONE TABLET BY MOUTH EVERY DAY NEEDED FOR SWELLING. TAKE POTASSIUM WITH EACH DOSE 03/01/2014 09/26/2014 Inactive potassium chloride ER 20 mEq tablet,extended release(part/ cryst) RxNorm: 226755 TAKE ONE TABLET BY MOUTH EVERY DAY WHEN YOU TAKE LASIX (FUROSEMIDE) 03/01/2014 09/26/2014 Inactive cyanocobalamin (vit B-12) 1,000 mcg/mL injection solution RxNorm: 383329 1 Milliliter(s) Inj 02/24/2014 02/24/2014 Inactive Tricor 145 mg tablet RxNorm: 661838 TAKE ONE TABLET BY MOUTH EVERY DAY 02/16/2014 02/15/2014 Inactive Victoza 2-J Luis 0.6 mg/0.1 mL (18 mg/3 mL) subcutaneous pen injector RxNorm: 565446 1.2 Milligram(s) SQ daily 02/16/201408/04 Inactive Tricor 145 mg tablet RxNorm: 657755 TAKE ONE TABLET BY MOUTH EVERY DAY 02/16/2014 06/15/2014 Inactive Synthroid 50 mcg tablet RxNorm: 553087 TAKE ONE TABLET BY MOUTH EVERY DAY. 02/02/2014 03/03/2014 Inactive Synthroid 50 mcg tablet RxNorm: 254088 TAKE ONE TABLET BY MOUTH EVERY DAY. 02/02/2014 02/01/2014 Inactive simvastatin 20 mg tablet RxNorm: 256671 TAKE ONE TABLET BY MOUTH AT BEDTIME 01/12/2014 01/06/2015 Inactive cyanocobalamin (vit B-12) 1,000 mcg/mL injection solution RxNorm: 933795 Milliliter(s) Inj 01/09/2014 01/09/2014 Inactive Lortab 5 mg-500 mg tablet RxNorm: 635587 1-2 Tablet(s) PO Q4 PRN q 4-6hrs prn pain 12/23/2013 No Stop Date Active Lasix 20 mg tablet RxNorm: 462824 Tablet(s) PO TAKE ONE TABLET BY MOUTH EVERY DAY NEEDED FOR SWELLING. TAKE POTASSIUM WITH EACH DOSE 12/201302/28/2014 Inactive potassium chloride ER 20 mEq tablet,extended release(part/ cryst) RxNorm: 514998 Tablet(s) PO TAKE ONE TABLET BY MOUTH EVERY DAY WHEN YOU TAKE LASIX (FUROSEMIDE ) 12/02/2013 02/28/2014 Inactive Lomotil 2.5 mg-0.025 mg tablet RxNorm: 5202663 Tablet(s) PO TAKE ONE TABLET BY MOUTH EVERY 8 HOURS NEEDED 11/27/2013 No Stop Date Active (Appended: Controlled substance eRx refill - RxReferenceNumber: [id number]) Lomotil 2.5 mg-0.025 mg tablet RxNorm: 8414328 1 Tablet(s) PO Q8 PRN 11/27/2013 05/25/2014 Inactive cyanocobalamin (vit B-12) 1,000 mcg/mL injection solution RxNorm: 457743 1 Milliliter(s) Inj 11/27/2013 11/27/2013 Inactive Vitamin B-12 1,000 mcg/mL injection solution RxNorm: 508810 1 Milliliter(s) Inj monthly 11/24/2013 11/18/2014 Inactive ok to give multidose if available Synthroid 50 mcg tablet RxNorm: 803762 Tablet(s) PO TAKE ONE TABLET BY MOUTH EVERY DAY. 10/31/2013 02/01/2014 Inactive simvastatin 20 mg tablet RxNorm: 688542 Tablet(s) PO TAKE ONE TABLET BY MOUTH AT BEDTIME 10/10/2013 01/11/2014 Inactive Vitamin B-12 1,000 mcg/mL injection solution RxNorm: 984022 1 Milliliter(s) Inj monthly 09/30/2013 09/29/2013 Inactive ok to give multidose if available Vitamin B-12 1,000 mcg/mL injection solution RxNorm: 593456 1 Milliliter(s) Inj monthly 09/30/2013 11/23/2013 Inactive ok to give multidose if available Vitamin B-12 1,000 mcg/mL injection solution RxNorm: 931546 1 Milliliter(s) Inj 09/18/2013 09/18/2013 Inactive Lopressor 100 mg tablet RxNorm: 496948 Tablet(s) PO TAKE ONE TABLET BY MOUTH EVERY DAY 09/15/2013 09/13/2014 Inactive Vitamin B-12 1,000 mcg/mL injection solution RxNorm: 041675 1 Milliliter(s) Inj 08/22/2013 08/22/2013 Inactive glipizide 10 mg tablet RxNorm: 449641 Tablet(s) PO TAKE ONE TABLET BY MOUTH TWICE A DAY 08/15/2013 07/27/2014 Inactive Tenex 1 mg tablet RxNorm: 360828 Tablet(s) PO TAKE ONE TABLET BY MOUTH EVERY DAY 08/05/2013 06/29/2014 Inactive potassium chloride ER 20 mEq tablet,extended release(part/ cryst) RxNorm: 427393 Tablet(s) PO TAKE ONE TABLET BY MOUTH EVERY DAY WHEN YOU TAKE LASIX (FUROSEMIDE ) 07/31/2013 12/01/2013 Inactive spironolactone 25 mg tablet RxNorm: 456510 Tablet(s) PO TAKE ONE TABLET BY MOUTH TWICE A DAY 07/31/2013 06/29/2014 Inactive Lasix 20 mg tablet RxNorm: 422496 Tablet(s) PO TAKE ONE TABLET BY MOUTH EVERY DAY NEEDED FOR SWELLING. TAKE POTASSIUM WITH EACH DOSE 08/201312/01/2013 Inactive Vitamin B-12 1,000 mcg/mL injection solution RxNorm: 320491 Milliliter(s) Inj 07/28/2013 07/28/2013 Inactive Synthroid 50 mcg tablet RxNorm: 703875 Tablet(s) PO TAKE ONE TABLET BY MOUTH EVERY DAY. PATIENT DUE FOR TSH LEVEL LAB 06/30/2013 06/29/2013 Inactive Synthroid 50 mcg tablet RxNorm: 635585 Tablet(s) PO TAKE ONE TABLET BY MOUTH EVERY DAY. PATIENT DUE FOR TSH LEVEL LAB 06/30/2013 10/30/2013 Inactive potassium chloride ER 20 mEq tablet,extended release(part/ cryst) RxNorm: 974599 Tablet(s) PO TAKE ONE TABLET BY MOUTH EVERY DAY WHEN YOU TAKE LASIX (FUROSEMIDE ) 06/23/2013 07/30/2013 Inactive Lasix 20 mg tablet RxNorm: 169083 Tablet(s) PO TAKE ONE TABLET BY MOUTH EVERY DAY NEEDED FOR SWELLING. TAKE POTASSIUM WITH EACH DOSE 07/30/2013 Inactive amlodipine 5 mg tablet RxNorm: 511017 Tablet(s) PO TAKE ONE TABLET BY MOUTH TWICE A DAY 06/17/2013 04/01/2014 Inactive metformin ER 500 mg tablet,extended release 24 hr RxNorm: 994335 Tablet(s) PO TAKE TWO TABLETS BY MOUTH TWICE A DAY 05/26/2013 06/04/2014 Inactive metformin ER 500 mg tablet,extended release 24 hr RxNorm: 957516 Tablet(s) PO TAKE TWO TABLETS BY MOUTH TWICE A DAY 05/26/2013 05/25/2013 Inactive Vitamin B-12 1,000 mcg/mL injection solution RxNorm: 956276 1 Milliliter(s) Inj 05/21/2013 05/21/2013 Inactive Vitamin B-12 1,000 mcg/mL Injection RxNorm: 282048 Milliliter(s) Inj 04/23/2013 04/23/2013 Inactive Influenza Virus Vaccine 0.5 mL RxNorm: IM 04/23/2013 04/23/2013 Inactive Synthroid 50 mcg tablet RxNorm: 868056 Tablet(s) PO TAKE ONE TABLET BY MOUTH EVERY DAY. PATIENT DUE FOR TSH LEVEL LAB 04/17/2013 06/29/2013 Inactive Lasix 20 mg tablet RxNorm: 360651 Tablet(s) PO TAKE ONE TABLET BY MOUTH EVERY DAY NEEDED FOR SWELLING. TAKE POTASSIUM WITH EACH DOSE 06/22/2013 Inactive potassium chloride ER 20 mEq tablet,extended release(part/ cryst) RxNorm: 8743776 Tablet(s) PO TAKE ONE TABLET BY MOUTH EVERY DAY WHEN YOU TAKE LASIX (FUROSEMIDE ) 04/17/2013 06/22/2013 Inactive simvastatin 20 mg tablet RxNorm: 892935 Tablet(s) PO TAKE ONE TABLET BY MOUTH AT BEDTIME 04/10/2013 10/09/2013 Inactive Vitamin B-12 1,000 mcg/mL Injection RxNorm: 747310 1 Milliliter(s) Inj 03/24/2013 03/24/2013 Inactive Lopressor 100 mg tablet RxNorm: 376055 Tablet(s) PO TAKE ONE TABLET BY MOUTH EVERY DAY 03/18/2013 09/14/2013 Inactive cyanocobalamin (vitamin B-12) 1,000 mcg/mL Injection RxNorm: 323591 Milliliter(s) Inj 02/20/2013 02/20/2013 Inactive Tricor 145 mg tablet RxNorm: 834950 Tablet(s) PO TAKE ONE TABLET BY MOUTH EVERY DAY 02/14/2013 02/15/2014 Inactive Vitamin B-12 1,000 mcg/mL Injection RxNorm: 312805 1 Milliliter(s) Inj 01/22/2013 01/22/2013 Inactive potassium chloride ER 20 mEq tablet,extended release(part/ cryst) RxNorm: 9307650 1 Tablet(s) PO QDAY PRN take when taking prn lasix 201204/16/2013 Inactive Lasix 20 mg tablet RxNorm: 306274 1 Tablet(s) PO QDAY PRN daily prn swelling - to take kcl with lasix 01/22/20132012 Inactive cyanocobalamin (vitamin B-12) 1,000 mcg/mL Injection RxNorm: 943309 Milliliter(s) Inj 12/19/2012 12/19/2012 Inactive cyanocobalamin (vitamin B-12) 1,000 mcg/mL Injection RxNorm: 481292 Milliliter(s) Inj 11/20/2012 11/20/2012 Inactive Diflucan 150 mg tablet RxNorm: 522464 1 Tablet(s) PO daily 11/21/2012 Inactive Synthroid 50 mcg tablet RxNorm: 962646 Tablet(s) PO TAKE ONE TABLET BY MOUTH EVERY DAY. PATIENT DUE FOR TSH LEVEL LAB 11/18/2012 04/16/2013 Inactive Keflex 500 mg capsule RxNorm: 364500 1 Capsule(s) PO TID 201211/19/2012 Inactive Keflex 500 mg capsule RxNorm: 976840 1 Capsule(s) PO TID 201211/12/2012 Inactive Byetta 10 mcg/0.04 mL per dose Sub-Q Pen Injector RxNorm: 069538 Pen Injector SQ DIAL AND INJECT SUBCUTANEOUSLY 10 MCG TWICE DAILY WITHIN 60 MINUTES BEFORE MORNING AND EVENING MEALS. DO NOT ADMINISTER AFTER A MEAL. 04/03/2014 Inactive cyanocobalamin (vitamin B-12) 1,000 mcg/mL Injection RxNorm: 722375 1 Milliliter(s ) Inj 10/23/2012 10/23/2012 Inactive Lortab 5 mg-500 mg tablet RxNorm: 374189 1-2 Tablet(s) PO Q4 PRN q 4-6hrs prn pain 10/02/2012 12/22/2013 Inactive cyanocobalamin (vitamin B-12) 1,000 mcg/mL Injection RxNorm: 640792 Milliliter(s) Inj 09/16/2012 09/16/2012 Inactive Vitamin B-12 1,000 mcg/mL Injection RxNorm: 727690 1 Milliliter(s) Inj 08/15/2012 08/15/2012 Inactive glipizide 10 mg tablet RxNorm: 991060 Tablet(s) PO TAKE ONE TABLET BY MOUTH TWICE A DAY 08/12/2012 08/14/2013 Inactive Tenex 1 mg tablet RxNorm: 288427 Tablet(s) PO TAKE ONE TABLET BY MOUTH EVERY DAY 08/12/2012 08/04/2013 Inactive Kenalog 40 mg/mL Susp for Injection RxNorm: 5977240 1 Milliliter(s) Inj 08/06/2012 01/22/2013 Inactive spironolactone 25 mg tablet RxNorm: 341785 Tablet(s) PO TAKE ONE TABLET BY MOUTH TWICE A DAY 07/29/2012 07/30/2013 Inactive cefdinir 300 mg capsule RxNorm: 965716 1 Capsule(s) PO BID 08/01/2012 Inactive cefdinir 300 mg capsule RxNorm: 237252 1 Capsule(s) PO BID 07/25/2012 Inactive Vitamin B-12 1,000 mcg/mL Injection RxNorm: 223017 1 Milliliter(s) Inj 07/19/2012 07/19/2012 Inactive simvastatin 20 mg tablet RxNorm: 205797 Tablet(s) PO TAKE ONE TABLET BY MOUTH AT BEDTIME 07/08/2012 04/09/2013 Inactive simvastatin 20 mg tablet RxNorm: 824499 Tablet(s) PO TAKE ONE TABLET BY MOUTH AT BEDTIME 07/08/2012 10/07/2015 Inactive Synthroid 50 mcg tablet RxNorm: 814150 1 Tablet(s) PO daily 12/201110/31/2012 Inactive Please advise patient due for TSH level. amlodipine 5 mg tablet RxNorm: 876929 1 Tablet(s) PO BID 201112/15/2012 Inactive amlodipine 5 mg tablet RxNorm: 924547 1 Tablet(s) PO BID 201106/18/2012 Inactive Vitamin B-12 1,000 mcg/mL Injection RxNorm: 302503 Milliliter(s) Inj 06/19/2012 06/19/2012 Inactive Lopressor 100 mg tablet RxNorm: 686119 Tablet(s) PO 06/17/2012 03/17/2013 Inactive TAKE ONE TABLET BY MOUTH EVERY DAY Vitamin B-12 1,000 mcg/mL Injection RxNorm: 748689 Milliliter(s) Inj 05/22/2012 05/22/2012 Inactive Synthroid 50 mcg tablet RxNorm: 402236 1 Tablet(s) PO daily 06/11/2012 Inactive Please advise patient due for TSH level. Diflucan 150 mg tablet RxNorm: 896864 1 Tablet(s) PO daily 11/18/2012 Inactive metformin ER 500 mg tablet,extended release 24 hr RxNorm: 662617 2 Tablet(s) PO BID 04/25/2012 05/19/2013 Inactive Vitamin B-12 1,000 mcg/mL Injection RxNorm: 371383 Milliliter(s) Inj 04/22/2012 04/22/2012 Inactive Vitamin B-12 1,000 mcg/mL Injection RxNorm: 019150 Milliliter(s) Inj 03/19/2012 03/19/2012 Inactive Vitamin B-12 1,000 mcg/mL Injection RxNorm: 671453 Milliliter(s) Inj 02/15/2012 02/15/2012 Inactive Tricor 145 mg tablet RxNorm: 161075 1 Tablet(s) PO daily 201102/13/2013 Inactive Vitamin B-12 1,000 mcg/mL Injection RxNorm: 543714 Milliliter(s) Inj 01/18/2012 01/18/2012 Inactive Kenalog 40 mg/mL Susp for Injection RxNorm: 9446717 1 Milliliter(s) Inj 12/28/2011 12/28/2011 Inactive Vitamin B-12 1,000 mcg/mL Injection RxNorm: 740141 Milliliter(s) Inj 12/20/2011 12/20/2011 Inactive omeprazole 20 mg Cap, delayed release RxNorm: 238834 1 Capsule(s) PO daily 12/07/2011 11/30/2012 Inactive may take bid if nec cyanocobalamin (vitamin B-12) 1,000 mcg/mL Injection RxNorm: 154444 1 Milliliter(s ) Inj 11/07/2011 11/07/2011 Inactive cyanocobalamin (vitamin B-12) 1,000 mcg/mL Injection RxNorm: 715220 1 Milliliter(s ) Inj 10/03/2011 10/03/2011 Inactive Synthroid 50 mcg tablet RxNorm: 759728 1 Tablet(s) PO daily 03/08/2012 Inactive Byetta 10 mcg/0.04 mL per dose Sub-Q Pen Injector RxNorm: 421363 10 Microgram(s) SQ BID 08/29/2011 09/21/2012 Inactive metformin ER 500 mg tablet,extended release 24 hr RxNorm: 088935 2 Tablet(s) PO BID 08/15/2011 02/10/2012 Inactive cyanocobalamin (vitamin B-12) 1,000 mcg/mL Injection RxNorm: 692457 1 Milliliter(s ) Inj 07/28/2011 07/28/2011 Inactive NovoFine 30 Needle RxNorm: 1 Miscellaneous BID 07/28/2011 03/18/2013 Inactive OneTouch Ultra Test strips RxNorm: 1 Miscellaneous BID 201003/18/2013 Inactive guanfacine 1 mg Tab RxNorm: 689551 1 Tablet(s) PO daily 201007/10/2012 Inactive glipizide 10 mg tablet RxNorm: 120748 1 Tablet(s) PO BID 201008/09/2012 Inactive Tenex 1 mg tablet RxNorm: 520937 1 Tablet(s) PO daily 201008/09/2012 Inactive lisinopril 20 mg tablet RxNorm: 089632 1 Tablet(s) PO daily pt 07/04/2011 04/21/2012 Inactive pt may have #90 with year if insurance pays spironolactone 25 mg tablet RxNorm: 891951 1 Tablet(s) PO BID 07/03/2011 07/26/2012 Inactive simvastatin 20 mg Tab RxNorm: 150793 1 Tablet(s) PO QHS 201006/28/2011 Inactive cyanocobalamin (vitamin B-12) 1,000 mcg/mL Injection RxNorm: 339597 Milliliter(s) Inj 06/29/2011 06/29/2011 Inactive simvastatin 20 mg tablet RxNorm: 226466 1 Tablet(s) PO QHS 07/201006/22/2012 Inactive Lopressor 100 mg tablet RxNorm: 430588 1 Tablet(s) PO daily 06/16/2012 Inactive ketorolac 60 mg/2 mL IM RxNorm: 397791 Milliliter(s) IM 201005/23/2011 Inactive cyanocobalamin (vitamin B-12) 1,000 mcg/mL Injection RxNorm: 996546 Milliliter(s) Inj 05/23/2011 05/23/2011 Inactive Influenza Virus Vaccine 0.5 mL RxNorm: IM 04/26/2011 04/26/2011 Inactive Vitamin B-12 1,000 mcg/mL Injection RxNorm: 356611 Milliliter(s) Inj 04/26/2011 04/26/2011 Inactive Lomotil 2.5 mg-0.025 mg tablet RxNorm: 2477979 1 Tablet(s) PO Q8 PRN 04/26/2011 11/27/2013 Inactive amiodarone 200 mg tablet RxNorm: 199957 1 Tablet(s) PO daily No Start Date Active atorvastatin 10 mg tablet RxNorm: 843408 1 Tablet(s) PO QHS No Start Date Active metoprolol succinate ER 100 mg tablet,extended release 24 hr RxNorm: 123047 1 Tablet(s) PO daily No Start Date Active warfarin 2 mg tablet RxNorm: 251470 1 Tablet(s) PO daily No Start Date Active clopidogrel 75 mg tablet RxNorm: 379256 1 Tablet(s) PO daily No Start Date Active aspirin 81 mg Tab, Delayed Release RxNorm: 447429 1 Tablet(s) PO daily No Start Date Active Vitamin D 1,000 unit Tab RxNorm: 671846 1 Tablet(s) PO daily No Start Date Active Tricor 145 mg Tab RxNorm: 392346 1 Tablet(s) PO daily No Start Date 02/07/2012 Inactive Synthroid 50 mcg Tab RxNorm: 494522 1 Tablet(s) PO daily No Start Date 09/10/2011 Inactive lisinopril 20 mg tablet RxNorm: 875065 1 Tablet(s) PO daily No Start Date 06/18/2012 Inactive Lortab 5 mg-500 mg tablet RxNorm: 036354 1 Tablet(s) PO Q4 PRN q 4hrs prn pain No Start Date 10/01/2012 Inactive Tenex 1 mg Tab RxNorm : 049060 1 Tablet(s) PO daily No Start Date 07/16/2011 Inactive lisinopril 40 mg tablet RxNorm: 931763 Tablet(s) PO No Start Date 05/21/2012 Inactive Voltaren 1 % Topical Gel RxNorm: 501274 TOP as directed No Start Date 11/29/2015 Inactive iron 325 mg (65 mg iron) Tab RxNorm: 197312 1 Tablet(s) PO daily No Start Date 02/22/2015 Inactive Zithromax Z-J Luis 250 mg tablet RxNorm: 087995 Tablet(s) PO UD No Start Date 01/22/2013 Inactive Byetta 10 mcg/0.04 mL per dose Sub-Q Pen Injector RxNorm: 151050 Milliliter(s) SQ BID No Start Date 08/28/2011 Inactive cyanocobalamin (vitamin B-12) 1,000 mcg/mL Injection RxNorm: 650117 1 Milliliter(s ) Inj month No Start Date 11/30/2015 Inactive Tessalon 200 mg capsule RxNorm: 919690 1 Capsule(s) PO TID PRN No Start Date 01/21/2013 Inactive Victoza 2-J Luis 0.6 mg/0.1 mL (18 mg/3 mL) subcutaneous pen injector RxNorm: 479685 1.2 Milligram(s) SQ daily No Start Date Inactive simvastatin 20 mg Tab RxNorm: 848658 1 Tablet(s) PO QHS No Start Date 06/28/2011 Inactive spironolactone 25 mg Tab RxNorm: 434648 1 Tablet(s) PO BID No Start Date 07/02/2011 Inactive Diflucan 150 mg tablet RxNorm: 520453 1 Tablet(s) PO daily No Start Date 04/24/2012 Inactive guanfacine 1 mg Tab RxNorm: 882065 1 Tablet(s) PO daily No Start Date 07/16/2011 Inactive Ativan 1 mg Tab RxNorm : 789732 1/2-1 Tablet(s) PO Q6 PRN 1/2 - 1 tab q 6 hours if needed for anxiety No Start Date 2013 Inactive metformin ER 500 mg 24 hr Tab RxNorm: 654833 2 Tablet(s) PO BID No Start Date 08/14/2011 Inactive Lopressor 100 mg Tab RxNorm: 867591 1 Tablet(s) PO daily No Start Date 06/26/2011 Inactive glipizide 10 mg Tab RxNorm: 657214 1 Tablet(s) PO BID No Start Date 07/16/2011 Inactive KCL 10 meq RxNorm: PO as directed daily when taking lasix No Start Date 01/22/2013 Inactive lisinopril 20 mg Tab RxNorm: 296275 1 Tablet(s) PO daily No Start Date 07/03/2011 Inactive One Touch Ultra Test Strips RxNorm: 1 Miscellaneous BID No Start Date 07/27/2011 Inactive omeprazole 20 mg Cap, delayed release RxNorm: 108929 1 Capsule(s) PO BID No Start Date 12/06/2011 Inactive Lasix 20 mg tablet RxNorm: 473879 Tablet(s) PO as directed daily prn swelling - to take kcl with lasix No Start Date 01/21 Inactive niacin 500 mg Tab RxNorm: 891155 1 Tablet(s) PO QHS No Start Date 04/03/2014 Inactive Medication Administered Medication Codes Instructions Start Date Status cyanocobalamin (vit B-12) 1,000 mcg/mL injection solution RxNorm: 190391 1Milliliter 08/21/2017 No longer Active cyanocobalamin (vit B-12) 1,000 mcg/mL injection solution RxNorm: 511965 1Milliliter 07/18/2017 No longer Active cyanocobalamin (vit B-12) 1,000 mcg/mL injection solution RxNorm: 793887 1Milliliter 06/18/2017 No longer Active Kenalog 40 mg/mL suspension for injection RxNorm: 1366032 1Milliliter 06/18/2017 No longer Active cyanocobalamin (vit B-12) 1,000 mcg/mL injection solution RxNorm: 141549 1Milliliter 05/09/2017 No longer Active cyanocobalamin (vit B-12) 1,000 mcg/mL injection solution RxNorm: 995515 1Milliliter 04/04/2017 No longer Active Kenalog 40 mg/mL suspension for injection RxNorm: 3446682 1Milliliter 02/23/2017 No longer Active cyanocobalamin (vit B-12) 1,000 mcg/mL injection solution RxNorm: 764174 Milliliter 01/23/2017 No longer Active cyanocobalamin (vit B-12) 1,000 mcg/mL injection solution RxNorm: 091270 1Milliliter 11/14/2016 No longer Active Kenalog 40 mg/mL suspension for injection RxNorm: 9466453 1Milliliter 09/07/2016 No longer Active cyanocobalamin (vit B-12) 1,000 mcg/mL injection solution RxNorm: 736285 1Milliliter 08/29/2016 No longer Active cyanocobalamin (vit B-12) 1,000 mcg/mL injection solution RxNorm: 969972 Milliliter 06/12/2016 No longer Active ceftriaxone 500 mg solution for injection RxNorm: 7615293 2Milliliter 05/04/2016 No longer Active cyanocobalamin (vit B-12) 1,000 mcg/mL injection solution RxNorm: 669198 Milliliter 05/04/2016 No longer Active cyanocobalamin (vit B-12) 1,000 mcg/mL injection solution RxNorm: 832223 Milliliter 03/17/2016 No longer Active cyanocobalamin (vit B-12) 1,000 mcg/mL injection solution RxNorm: 258936 1Milliliter 02/15/2016 No longer Active cyanocobalamin (vit B-12) 1,000 mcg/mL injection solution RxNorm: 808547 Milliliter 01/19/2016 No longer Active cyanocobalamin (vit B-12) 1,000 mcg/mL injection solution RxNorm: 993062 1Milliliter 12/07/2015 No longer Active cyanocobalamin (vit B-12) 1,000 mcg/mL injection kit RxNorm : 717055 kit 09/06/2015 No longer Active ceftriaxone 500 mg solution for injection RxNorm: 5869985 09/06/2015 No longer Active ceftriaxone 500 mg solution for injection RxNorm: 5175232 07/05/2015 No longer Active Kenalog 40 mg/mL suspension for injection RxNorm: 7360727 Milliliter 07/05/2015 No longer Active cyanocobalamin (vit B-12) 1,000 mcg/mL injection solution RxNorm: 758956 Milliliter 06/28/2015 No longer Active cyanocobalamin (vit B-12) 1,000 mcg/mL injection solution RxNorm: 381700 Milliliter 05/13/2015 No longer Active cyanocobalamin (vit B-12) 1,000 mcg/mL injection solution RxNorm: 652567 Milliliter 02/23/2015 No longer Active cyanocobalamin (vit B-12) 1,000 mcg/mL injection solution RxNorm: 653119 Milliliter 01/08/2015 No longer Active cyanocobalamin (vit B-12) 1,000 mcg/mL injection solution RxNorm: 965089 Milliliter 12/08/2014 No longer Active cyanocobalamin (vit B-12) 1,000 mcg/mL injection solution RxNorm: 085229 Milliliter 10/26/2014 No longer Active cyanocobalamin (vit B-12) 1,000 mcg/mL injection solution RxNorm: 341680 Milliliter 09/24/2014 No longer Active cyanocobalamin (vit B-12) 1,000 mcg/mL injection solution RxNorm: 226852 Milliliter 08/24/2014 No longer Active cyanocobalamin (vit B-12) 1,000 mcg/mL injection solution RxNorm: 948100 1Milliliter 06/01/2014 No longer Active Kenalog 40 mg/mL suspension for injection RxNorm: 8545546 1Milliliter 05/11/2014 No longer Active cyanocobalamin (vit B-12) 1,000 mcg/mL injection kit RxNorm : 626601 Milliliter 04/27/2014 No longer Active cyanocobalamin (vit B-12) 1,000 mcg/mL injection kit RxNorm : 221587 1Milliliter 03/24/2014 No longer Active cyanocobalamin (vit B-12) 1,000 mcg/mL injection solution RxNorm: 217060 1Milliliter 03/24/2014 No longer Active cyanocobalamin (vit B-12) 1,000 mcg/mL injection solution RxNorm: 847166 1Milliliter 02/24/2014 No longer Active cyanocobalamin (vit B-12) 1,000 mcg/mL injection solution RxNorm: 970121 Milliliter 01/09/2014 No longer Active cyanocobalamin (vit B-12) 1,000 mcg/mL injection solution RxNorm: 309606 1Milliliter 11/27/2013 No longer Active Vitamin B-12 1,000 mcg/mL injection solution RxNorm: 891896 1Milliliter 09/18/2013 No longer Active Vitamin B-12 1,000 mcg/mL injection solution RxNorm: 290698 1Milliliter 08/22/2013 No longer Active Vitamin B-12 1,000 mcg/mL injection solution RxNorm: 507580 Milliliter 07/28/2013 No longer Active Vitamin B-12 1,000 mcg/mL injection solution RxNorm: 861845 1Milliliter 05/21/2013 No longer Active Influenza Virus Vaccine 0.5 mL RxNorm: 04/23/2013 No longer Active Vitamin B-12 1,000 mcg/mL Injection RxNorm: 006709 Milliliter 04/23/2013 No longer Active Vitamin B-12 1,000 mcg/mL Injection RxNorm: 795432 1Milliliter 03/24/2013 No longer Active cyanocobalamin (vitamin B-12) 1,000 mcg/mL Injection RxNorm : 894694 Milliliter 02/20/2013 No longer Active Vitamin B-12 1,000 mcg/mL Injection RxNorm: 262709 1Milliliter 01/22/2013 No longer Active cyanocobalamin (vitamin B-12) 1,000 mcg/mL Injection RxNorm : 114493 Milliliter 12/19/2012 No longer Active cyanocobalamin (vitamin B-12) 1,000 mcg/mL Injection RxNorm : 507775 Milliliter 11/20/2012 No longer Active cyanocobalamin (vitamin B-12) 1,000 mcg/mL Injection RxNorm : 293322 1Milliliter 10/23/2012 No longer Active cyanocobalamin (vitamin B-12) 1,000 mcg/mL Injection RxNorm : 967746 Milliliter 09/16/2012 No longer Active Vitamin B-12 1,000 mcg/mL Injection RxNorm: 012651 1Milliliter 08/15/2012 No longer Active Vitamin B-12 1,000 mcg/mL Injection RxNorm: 957141 1Milliliter 07/19/2012 No longer Active Vitamin B-12 1,000 mcg/mL Injection RxNorm: 785728 Milliliter 06/19/2012 No longer Active Vitamin B-12 1,000 mcg/mL Injection RxNorm: 944696 Milliliter 05/22/2012 No longer Active Vitamin B-12 1,000 mcg/mL Injection RxNorm: 262072 Milliliter 04/22/2012 No longer Active Vitamin B-12 1,000 mcg/mL Injection RxNorm: 769934 Milliliter 03/19/2012 No longer Active Vitamin B-12 1,000 mcg/mL Injection RxNorm: 045121 Milliliter 02/15/2012 No longer Active Vitamin B-12 1,000 mcg/mL Injection RxNorm: 402173 Milliliter 01/18/2012 No longer Active Kenalog 40 mg/mL Susp for Injection RxNorm: 4992015 1Milliliter 12/28/2011 No longer Active Vitamin B-12 1,000 mcg/mL Injection RxNorm: 853111 Milliliter 12/20/2011 No longer Active cyanocobalamin (vitamin B-12) 1,000 mcg/mL Injection RxNorm : 144490 1Milliliter 11/07/2011 No longer Active cyanocobalamin (vitamin B-12) 1,000 mcg/mL Injection RxNorm : 736185 1Milliliter 10/03/2011 No longer Active cyanocobalamin (vitamin B-12) 1,000 mcg/mL Injection RxNorm : 828288 1Milliliter 07/28/2011 No longer Active cyanocobalamin (vitamin B-12) 1,000 mcg/mL Injection RxNorm : 756243 Milliliter 06/29/2011 No longer Active ketorolac 60 mg/2 mL IM RxNorm: 896218 Milliliter 05/23/2011 No longer Active cyanocobalamin (vitamin B-12) 1,000 mcg/mL Injection RxNorm : 366858 Milliliter 05/23/2011 No longer Active Influenza Virus Vaccine 0.5 mL RxNorm: 04/26/2011 No longer Active Vitamin B-12 1,000 mcg/mL Injection RxNorm: 865640 Milliliter 04/26/2011 No longer Active Immunizations Vaccine [...] 28.4 pg 06/07/2017 Cbc With Differential Ord2 [place]% 12.6 % 06/07/2017 Cbc With Differential Ord2 [...] 1.23 K/ul 06/07/2017 Cbc With Differential Ord2 [place] ABS# 0.7 K/ul 06/07/2017 Cbc With Differential Ord2 Eos ABS# 0.2 K/ul 06/07/2017 Cbc With Differential Ord2 Baso ABS# 0.0 K/ul 06/07/2017 Culture Urine [id number] URINE CULTURE SEE NOTES 05/08/2016 Culture Urine [id number] Continued Results 05/08/2016 Urine Culture Ucult Complete >100,000 col/ml aerobic growth sent to ref lab 05/05/2016 IRON TEST [id number] IRON TEST 44 UG/DL 07/28/2013 TSH [id number] TSH 2.104 uIU/ML 07/28/2013 CBC [id number] WBC 6.2 10e9/L 07/28/2013 CBC [id number] RBC 3.95 10e12/L 07/28/2013 CBC [id number] HGB 11.2 g/dL 07/28/2013 CBC [id number] HCT DET 34.2 % 07/28/2013 CBC [id number] MCV 86.6 fL 07/28/2013 CBC [id number] MCH 28.4 pg 07/28/2013 CBC [id number] MCHC 32.7 g/dL 07/28/2013 CBC [id number] PLT 231 10e9/L 07/28/2013 CBC [id number] MPV 10.9 fL 07/28/2013 CBC [id number] JAZMYN % 61.0 % 07/28/2013 CBC [id number] LY % 27.8 % 07/28/2013 CBC [id number] MON % 8.0 % 07/28/2013 CBC [id number] EOS % 2.4 % 07/28/2013 CBC [id number] BASO % 0.8 % 07/28/2013 CBC [id number] RDW 14.0 % 07/28/2013 CBC [id number] ABS JAMZYN 3.78 10e9/L 07/28/2013 CBC [id number] ABS LYMPH 1.72 10e9/L 07/28/2013 CBC [id number] ABS MONO 0.50 10e9/L 07/28/2013 CBC [id number] ABS EOS 0.15 10e9/L 07/28/2013 CBC [id number] ABS BASO 0.05 10e9/L 07/28/2013 CBC [id number] RDW-SD 42.9 fL 07/28/2013 %SAT/TIBC 0432334 TIBC 439 UG/DL 07/28/2013 %SAT/TIBC 8490313 % SATURAT 10 % 07/28/2013 %SAT/TIBC 4117929 UIBC 395 MCG/DL 07/28/2013 Review of Systems [...] rate 06/16/2013 None Full Exam - General 1995 Cardiovascular auscultation of heart Overall: normal heart sounds 06/16/2013 None Full Exam - General 1995 Abdomen abdominal exam Overall: no tenderness 06/16/2013 None Full Exam - General 1994 Abdomen abdominal exam Overall: normal bowel sounds 06/16/2013 None Full Exam - General 1995 [...] affect 01/22/2013 None Full Exam - General 1995 Cardiovascular extremities Edema present: pitting 01/22/2013 None Full Exam - General 1995 Cardiovascular extremities Edema present: severity 1+ - [...] tenderness 05/22/2012 None Full Exam - General 1995 Abdomen abdominal exam Overall: normal bowel sounds 05/22/2012 None Full Exam - General 1995 Musculoskeletal head and neck Overall: head atraumatic 05/22/2012 None Full Exam - General 1994 Musculoskeletal head and neck Overall: cervical spine benign 05/22/2012 None Full Exam - General 1995 Neurologic gait Overall: no ataxia, no unsteadiness 05/22/2012 None Full Exam - General 1994 Neurologic cranial nerves Overall: crainial nerves 2 - 12 grossly intact 05/22/2012 None Full Exam - General 1994 Psychiatric orientation/consciousness Overall: oriented to person, place and time 05/22/2012 None Full Exam - General 1995 Psychiatric mood and affect Overall: normal mood and affect 05/22/2012 None Full Exam - General 1995 Constitutional general appearance Overall: well nourished 04/22/2012 [...] tenderness 04/22/2012 None Full Exam - General 1995 Abdomen abdominal exam Overall: normal bowel sounds 04/22/2012 None Full Exam - General 1995 Musculoskeletal [...] time 04/22/2012 None Full Exam - General 1995 Psychiatric [...] Procedure Codes Date THER/PROPH/DIAG INJ SC/IM CPT-4: 02569 08/21/2017 VITAMIN B12 INJECTION CPT-4: J3420 08/21/2017 THER/PROPH/DIAG INJ SC/IM CPT-4: 12335 07/18/2017 VITAMIN B12 INJECTION CPT-4: J3420 07/18/2017 TRIAMCINOLONE ACET INJ NOS CPT-4: J3301 06/18/2017 THER/PROPH/DIAG INJ SC/IM CPT-4: 21233 06/18/2017 VITAMIN B12 INJECTION CPT-4: J3420 06/18/2017 PRESCRIP TRANSMIT VIA ERX SY CPT-4: G8553 06/18/2017 THER/PROPH/DIAG INJ SC/IM CPT-4: 15007 05/09/2017 VITAMIN B12 INJECTION CPT-4: J3420 05/09/2017 ADMIN INFLUENZA VIRUS VAC CPT-4: G0008 04/25/2017 FLU VAC NO PRSV 4 JINNY 3 YRS+ CPT-4: 67932 04/25/2017 THER/PROPH/DIAG INJ SC/IM CPT-4: 62647 04/04/2017 VITAMIN B12 INJECTION CPT-4: J3420 04/04/2017 TRIAMCINOLONE ACET INJ NOS CPT-4: J3301 02/23/2017 VITAMIN B12 INJECTION CPT-4: J3420 02/23/2017 THER/PROPH/DIAG INJ SC/IM CPT-4: 60312 01/23/2017 VITAMIN B12 INJECTION CPT-4: J3420 01/23/2017 VITAMIN B12 INJECTION CPT-4: J3420 12/26/2016 THER/PROPH/DIAG INJ SC/IM CPT-4: 94196 12/26/2016 THER/PROPH/DIAG INJ SC/IM CPT-4: 12382 11/14/2016 VITAMIN B12 INJECTION CPT-4: J3420 11/14/2016 THER/PROPH/DIAG INJ SC/IM CPT-4: 31910 09/07/2016 TRIAMCINOLONE ACET INJ NOS CPT-4: J3301 09/07/2016 PRESCRIP TRANSMIT VIA ERX SY CPT-4: G8553 09/07/2016 THER/PROPH/DIAG INJ SC/IM CPT-4: 22570 08/29/2016 VITAMIN B12 INJECTION CPT-4: J3420 08/29/2016 PRESCRIP TRANSMIT VIA ERX SY CPT-4: G8553 08/29/2016 THER/PROPH/DIAG INJ SC/IM CPT-4: 50582 06/12/2016 VITAMIN B12 INJECTION CPT-4: J3420 06/12/2016 PRESCRIP TRANSMIT VIA ERX SY CPT-4: G8553 06/12/2016 URINALYSIS NONAUTO W/O SCOPE CPT-4: 77488 05/04/2016 ROCEPHIN, PER 250 MG CPT-4: J0696 05/04/2016 THER/PROPH/DIAG INJ SC/IM CPT-4: 22061 05/04/2016 VITAMIN B12 INJECTION CPT-4: J3420 05/04/2016 PRESCRIP TRANSMIT VIA ERX SY CPT-4: G8553 05/04/2016 PRESCRIP TRANSMIT VIA ERX SY CPT-4: G8553 03/30/2016 THER/PROPH/DIAG INJ SC/IM CPT-4: 93488 03/17/2016 VITAMIN B12 INJECTION CPT-4: J3420 03/17/2016 THER/PROPH/DIAG INJ SC/IM CPT-4: 37970 02/15/2016 VITAMIN B12 INJECTION CPT-4: J3420 02/15/2016 THER/PROPH/DIAG INJ SC/IM CPT-4: 20721 01/19/2016 VITAMIN B12 INJECTION CPT-4: J3420 01/19/2016 THER/PROPH/DIAG INJ SC/IM CPT-4: 91206 12/07/2015 VITAMIN B12 INJECTION CPT-4: J3420 12/07/2015 ROCEPHIN, PER 250 MG CPT-4: J0696 09/06/2015 THER/PROPH/DIAG INJ SC/IM CPT-4: 64272 09/06/2015 VITAMIN B12 INJECTION CPT-4: J3420 09/06/2015 PRESCRIP TRANSMIT VIA ERX SY CPT-4: G8553 09/06/2015 ROCEPHIN, PER 250 MG CPT-4: J0696 07/05/2015 TRIAMCINOLONE ACET INJ NOS CPT-4: J3301 07/05/2015 PRESCRIP TRANSMIT VIA ERX SY CPT-4: G8553 07/05/2015 THER/PROPH/DIAG INJ SC/IM CPT-4: 90830 06/28/2015 VITAMIN B12 INJECTION CPT-4: J3420 06/28/2015 THER/PROPH/DIAG INJ SC/IM CPT-4: 59853 05/13/2015 VITAMIN B12 INJECTION CPT-4: J3420 05/13/2015 THER/PROPH/DIAG INJ SC/IM CPT-4: 97142 02/23/2015 VITAMIN B12 INJECTION CPT-4: J3420 02/23/2015 THER/PROPH/DIAG INJ SC/IM CPT-4: 19397 01/08/2015 VITAMIN B12 INJECTION CPT-4: J3420 01/08/2015 THER/PROPH/DIAG INJ SC/IM CPT-4: 85650 12/08/2014 VITAMIN B12 INJECTION CPT-4: J3420 12/08/2014 THER/PROPH/DIAG INJ SC/IM CPT-4: 38461 10/26/2014 VITAMIN B12 INJECTION CPT-4: J3420 10/26/2014 VITAMIN B12 INJECTION CPT-4: J3420 09/24/2014 THER/PROPH/DIAG INJ SC/IM CPT-4: 73588 09/24/2014 THER/PROPH/DIAG INJ SC/IM CPT-4: 26552 08/24/2014 VITAMIN B12 INJECTION CPT-4: J3420 08/24/2014 THER/PROPH/DIAG INJ SC/IM CPT-4: 63136 07/08/2014 VITAMIN B12 INJECTION CPT-4: J3420 07/08/2014 THER/PROPH/DIAG INJ SC/IM CPT-4: 64820 06/01/2014 VITAMIN B12 INJECTION CPT-4: J3420 06/01/2014 TRIAMCINOLONE ACET INJ NOS CPT-4: J3301 05/11/2014 VITAMIN B12 INJECTION CPT-4: J3420 04/27/2014 THER/PROPH/DIAG INJ SC/IM CPT-4: 68983 04/27/2014 FLU VAC NO PRSV 4 JINNY 3 YRS+ CPT-4: 57060 04/03/2014 ADMIN INFLUENZA VIRUS VAC Assigned to/Juliana Graham CPT-4: [id number] 04/03/2014 THER/PROPH/DIAG INJ SC/IM CPT-4: 04162 03/24/2014 THER/PROPH/DIAG INJ SC/IM CPT-4: 32119 02/24/2014 THER/PROPH/DIAG INJ SC/IM CPT-4: 61109 01/09/2014 THER/PROPH/DIAG INJ SC/IM CPT-4: 33358 11/27/2013 THER/PROPH/DIAG INJ SC/IM CPT-4: 89120 09/18/2013 VITAMIN B12 INJECTION CPT-4: J3420 09/18/2013 THER/PROPH/DIAG INJ SC/IM CPT-4: 05511 08/22/2013 VITAMIN B12 INJECTION CPT-4: J3420 08/22/2013 ROUTINE VENIPUNCTURE CPT-4: 93181 07/28/2013 VITAMIN B12 INJECTION CPT-4: J3420 07/28/2013 THER/PROPH/DIAG INJ SC/IM CPT-4: 45331 07/28/2013 THER/PROPH/DIAG INJ SC/IM CPT-4: 57065 06/16/2013 VITAMIN B12 INJECTION CPT-4: J3420 06/16/2013 THER/PROPH/DIAG INJ SC/IM CPT-4: 62723 05/21/2013 VITAMIN B12 INJECTION CPT-4: J3420 05/21/2013 ADMIN INFLUENZA VIRUS VAC CPT-4: G0008 04/23/2013 FLULAVAL VACC, 3 YRS & >, IM CPT-4: Q2036 04/23/2013 VITAMIN B12 INJECTION CPT-4: J3420 04/23/2013 THER/PROPH/DIAG INJ SC/IM CPT-4: 96422 04/23/2013 THER/PROPH/DIAG INJ SC/IM CPT-4: 34928 03/24/2013 VITAMIN B12 INJECTION CPT-4: J3420 03/24/2013 THER/PROPH/DIAG INJ SC/IM CPT-4: 11030 02/20/2013 VITAMIN B12 INJECTION CPT-4: J3420 02/20/2013 VITAMIN B12 INJECTION CPT-4: J3420 01/22/2013 PRESCRIP TRANSMIT VIA ERX SY CPT-4: G8553 01/22/2013 TRIAMCINOLONE ACET INJ NOS CPT-4: J3301 12/19/2012 VITAMIN B12 INJECTION CPT-4: J3420 12/19/2012 THER/PROPH/DIAG INJ SC/IM CPT-4: 82278 11/20/2012 VITAMIN B12 INJECTION CPT-4: J3420 11/20/2012 THER/PROPH/DIAG INJ SC/IM CPT-4: 28904 10/23/2012 VITAMIN B12 INJECTION CPT-4: J3420 10/23/2012 THER/PROPH/DIAG INJ SC/IM CPT-4: 28859 09/16/2012 VITAMIN B12 INJECTION CPT-4: J3420 09/16/2012 VITAMIN B12 INJECTION CPT-4: J3420 08/15/2012 THER/PROPH/DIAG INJ SC/IM CPT-4: 78085 08/15/2012 TRIAMCINOLONE ACET INJ NOS CPT-4: J3301 08/06/2012 THER/PROPH/DIAG INJ SC/IM CPT-4: 37053 08/06/2012 PRESCRIP TRANSMIT VIA ERX SY CPT-4: G8553 08/06/2012 VITAMIN B12 INJECTION CPT-4: J3420 07/19/2012 THER/PROPH/DIAG INJ SC/IM CPT-4: 26125 07/19/2012 DRAIN/INJECT JOINT/BURSA CPT-4: 82759 07/10/2012 THER/PROPH/DIAG INJ SC/IM CPT-4: 49871 06/19/2012 VITAMIN B12 INJECTION CPT-4: J3420 06/19/2012 VITAMIN B12 INJECTION CPT-4: J3420 05/22/2012 THER/PROPH/DIAG INJ SC/IM CPT-4: 07332 05/22/2012 ADMIN INFLUENZA VIRUS VAC CPT-4: G0008 04/22/2012 FLULAVAL VACC, 3 YRS & >, IM CPT-4: Q2036 04/22/2012 VITAMIN B12 INJECTION CPT-4: J3420 04/22/2012 VITAMIN B12 INJECTION CPT-4: J3420 03/19/2012 THER/PROPH/DIAG INJ SC/IM CPT-4: 52545 03/19/2012 VITAMIN B12 INJECTION CPT-4: J3420 02/15/2012 THER/PROPH/DIAG INJ SC/IM CPT-4: 56175 02/15/2012 THER/PROPH/DIAG INJ SC/IM CPT-4: 27664 01/18/2012 VITAMIN B12 INJECTION CPT-4: J3420 01/18/2012 TRIAMCINOLONE ACET INJ NOS CPT-4: J3301 12/28/2011 DRAIN/INJECT JOINT/BURSA CPT-4: 27938 12/28/2011 VITAMIN B12 INJECTION CPT-4: J3420 12/20/2011 THER/PROPH/DIAG INJ SC/IM CPT-4: 49005 12/20/2011 VITAMIN B12 INJECTION CPT-4: J3420 11/07/2011 THER/PROPH/DIAG INJ SC/IM CPT-4: 09749 11/07/2011 VITAMIN B12 INJECTION CPT-4: J3420 10/03/2011 THER/PROPH/DIAG INJ SC/IM CPT-4: 04017 10/03/2011 TRIAMCINOLONE ACET INJ NOS CPT-4: J3301 08/23/2011 DRAIN/INJECT JOINT/BURSA CPT-4: 15912 08/23/2011 THER/PROPH/DIAG INJ SC/IM CPT-4: 28312 08/23/2011 VITAMIN B12 INJECTION CPT-4: J3420 08/23/2011 VITAMIN B12 INJECTION CPT-4: J3420 07/28/2011 THER/PROPH/DIAG INJ SC/IM CPT-4: 72424 07/28/2011 VITAMIN B12 INJECTION CPT-4: J3420 06/29/2011 THER/PROPH/DIAG INJ SC/IM CPT-4: 55897 06/29/2011 KETOROLAC TROMETHAMINE INJ CPT-4: J1885 05/23/2011 VITAMIN B12 INJECTION CPT-4: J3420 05/23/2011 THER/PROPH/DIAG INJ SC/IM CPT-4: 40938 05/23/2011 ADMIN INFLUENZA VIRUS VAC CPT-4: G0008 04/26/2011 FLULAVAL VACC, 3 YRS & >, IM CPT-4: Q2036 04/26/2011 VITAMIN B12 INJECTION CPT-4: J3420 04/26/2011 THER/PROPH/DIAG INJ SC/IM CPT-4: 27665 04/26/2011 Vital Signs Date Vital 06/18/2017 Blood Pressure 1: 134/68 Code : 8480-6 BMI: 35.8 Code : 43295-8 Heart Rate 1 : 50 bpm Height: 5'6" SpO2: 98% Weight: 222 lbs 06/07/2017 Blood Pressure 1: 146/68 Code : 8480-6 BMI: 35.3 Code : 22456-3 Heart Rate 1 : 63 bpm Height: 5'6" SpO2: 99% Weight: 218 lbs 8 oz 04/16/2017 Blood Pressure 1: 130/62 Code : 8480-6 BMI: 34.7 Code : 52502-5 Heart Rate 1 : 51 bpm Height: 5'6" SpO2: 94% Weight: 215 lbs 02/23/2017 Blood Pressure 1: 136/64 Code : 8480-6 BMI: 35.0 Code : 83796-6 Heart Rate 1 : 54 bpm Height: 5'6" SpO2: 96% Weight: 217 lbs 12/26/2016 Blood Pressure 1: 144/74 Code : 8480-6 BMI: 34.5 Code : 61746-8 Heart Rate 1 : 60 bpm Height: 5'6" SpO2: 97% Weight: 214 lbs 09/07/2016 Blood Pressure 1: 138/62 Code : 8480-6 Heart Rate 1: 86 bpm SpO2: 96% Temperature: 36.8 (C) / 98.2 (F) Weight: 207 lbs 08/29/2016 Blood Pressure 1: 132/58 Code : 8480-6 BMI: 33.9 Code : 08176-6 Heart Rate 1 : 55 bpm Height: 5'6" SpO2: 98% Weight: 210 lbs 06/12/2016 Blood Pressure 1: 128/76 Code : 8480-6 BMI: 33.2 Code : 98072-6 Heart Rate 1 : 57 bpm Height: 5'6" SpO2: 97% Weight: 206 lbs 05/04/2016 Blood Pressure 1: 130/72 Code : 8480-6 BMI: 33.9 Code : 58383-0 Heart Rate 1 : 74 bpm Height: 5'6" SpO2: 96% Temperature: 36.9 (C) / 98.5 (F) Weight: 210 lbs 03/30/2016 Blood Pressure 1: 116/66 Code : 8480-6 BMI: 34.3 Code : 98795-7 Heart Rate 1 : 67 bpm Height: 5'6" SpO2: 98% Weight: 212 lbs 8 oz 11/30/2015 Blood Pressure 1: 138/64 Code : 8480-6 BMI: 35.2 Code : 58651-6 Heart Rate 1 : 59 bpm Height: 5'6" SpO2: 98% Weight: 218 lbs 09/06/2015 Blood Pressure 1: 138/668 Code: 8480-6 BMI: 35.3 Code: 52926-5 Heart Rate 1: 68 bpm Height: 5'6" Weight: 219 lbs 08/04/2015 Blood Pressure 1: 140/82 Code : 8480-6 Heart Rate 1: 62 bpm SpO2: 98% Weight: 220 lbs 07/05/2015 Blood Pressure 1: 122/80 Code : 8480-6 BMI: 36.0 Code : 72156-9 Heart Rate 1 : 63 bpm Height: 5'6" SpO2: 97% Temperature: 36.3 (C) / 97.3 (F) Weight: 223 lbs 06/28/2015 Blood Pressure 1: 150/74 Code : 8480-6 BMI: 36.3 Code : 35724-4 Heart Rate 1 : 65 bpm Height: 5'6" SpO2: 96% Weight: 225 lbs 02/23/2015 Blood Pressure 1: 142/64 Code : 8480-6 BMI: 37.0 Code : 61871-4 Heart Rate 1 : 56 bpm Height: 5'6" SpO2: 96% Weight: 229 lbs 01/08/2015 Blood Pressure 1: 128/88 Code : 8480-6 BMI: 37.3 Code : 44201-3 Heart Rate 1 : 74 bpm Height: 5'6" Weight: 231 lbs 09/24/2014 Blood Pressure 1: 128/70 Code : 8480-6 BMI: 36.8 Code : 32420-4 Heart Rate 1 : 68 bpm Height: 5'6" SpO2: 96% Weight: 228 lbs 05/11/2014 Blood Pressure 1: 148/82 Code : 8480-6 Height: Temperature: 36.2 (C) / 97.2 (F) Weight: 05/01/2014 Blood Pressure 1: 128/68 Code : 8480-6 BMI: 36.6 Code : 47852-7 Heart Rate 1 : 74 bpm Height: 5'6" Weight: 227 lbs 04/03/2014 Blood Pressure 1: 130/72 Code : 8480-6 BMI: 36.8 Code : 66983-1 Heart Rate 1 : 76 bpm Height: 5'6" Weight: 228 lbs 11/24/2013 Blood Pressure 1: 146/64 Code : 8480-6 BMI: 35.5 Code : 77437-2 Heart Rate 1 : 64 bpm Height: 5'6" Weight: 220 lbs 08/22/2013 Weight: 223 lbs 07/28/2013 Blood Pressure 1: 112/68 Code : 8480-6 BMI: 36.2 Code : 81263-9 Heart Rate 1 : 80 bpm Height: 5'6" Weight: 224 lbs 06/16/2013 Blood Pressure 1: 132/60 Code : 8480-6 BMI: 37.6 Code : 17729-8 Heart Rate 1 : 72 bpm Height: 5'6" Weight: 233 lbs 01/22/2013 Blood Pressure 1: 130/64 Code : 8480-6 BMI: 37.3 Code : 09715-7 Heart Rate 1 : 80 bpm Height: 5'6" Weight: 231 lbs 10/02/2012 Blood Pressure 1: 146/90 Code : 8480-6 BMI: 36.8 Code : 65391-8 Heart Rate 1 : 60 bpm Height: [...] Code : 8480-6 BMI: 37.1 Code : 89573-2 Heart Rate 1 : 60 bpm Height: 5'6" Respiratory Rate: 16 bpm Weight: 230 lbs 12/20/2011 Blood Pressure 1: 142/66 Code : 8480-6 BMI: 35.8 Code : 91833-8 Heart Rate 1 : 66 bpm Height: [...] Code : 8480-6 BMI: 36.2 Code : 19726-0 Heart Rate 1 : 64 bpm Height: [...] pain Quality intermittent 02/23/2015 seeing Kevin brown [facility] diabetes mellitus Test results HgbA1c level [...] lesion Location on the right cheek 01/22/2013 taoist area edema Quality painful 01/22/2013 None edema [...] data Encounters Encounter Performer Location Codes Date ([id number]) 22172 EST. PATIENT, LEVEL IV Diagnosis: Type 2 diabetes mellitus without complications[ICD10: E11.9] Diagnosis: Essential (primary) hypertension[ICD10: I10] Diagnosis: Other vitamin B12 deficiency anemias[ICD10: D51.8] Diagnosis: Allergic rhinitis due to animal (cat) (dog) hair and dander[ICD10: J30.81] Daisy Garcia MD, [facility] CPT-4: 68743 2016 ([id number]) 78213 EST. 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 PATIENT, LEVEL IV Diagnosis: Type 2 diabetes mellitus without complications[ICD10: E11.9] Diagnosis: Essential (primary) hypertension[ICD10: I10] Diagnosis: Chronic atrial fibrillation[ICD10: I48.2] Daisy Garcia MD, [facility] CPT-4: 77671 04/16/2017 ([id number]) 27213 EST. PATIENT, LEVEL III Diagnosis: Sciatica, left side[ICD10: M54.32] Diagnosis: Sacroiliitis, not elsewhere classified[ICD10: M46.1] Chantell Singh Daisy [place] MD, [facility] CPT-4: 56045 02/23/2017 ([id number]) 75082 EST. PATIENT, LEVEL IV Diagnosis: Type 2 diabetes mellitus without complications[ICD10: E11.9] Diagnosis: Essential (primary) hypertension[ICD10: I10] Daisy Garcia MD, [facility] CPT-4: 89008 12/26/2016 ([id number]) 64123 EST. PATIENT, LEVEL III Diagnosis: Cough[ICD10: R05] Diagnosis: Acute bronchitis, unspecified[ICD10: J20.9] Chantell Garcia MD, [facility] CPT-4: 70876 09/07/2016 ([id number]) 95007 EST. PATIENT, LEVEL IV Diagnosis: Type 2 diabetes mellitus without complications[ICD10: E11.9] Diagnosis: Cough[ICD10: R05] Diagnosis: Acute laryngopharyngitis[ICD10: J06.0] Diagnosis: Acute recurrent maxillary sinusitis[ICD10: J01.01] Daisy Garcia MD, [facility] CPT-4: 56546 08/29/2016 55383 EST. PATIENT, LEVEL IV Diagnosis: Other allergic rhinitis[ICD10: J30.89] Diagnosis: Other vitamin B12 deficiency anemias[ICD10: D51.8] Yady Garcia MD, [facility] CPT-4: 76020 06/12/2016 ([id number]) 21192 EST. PATIENT, LEVEL III Diagnosis: Urinary tract infection, site not specified[ICD10: N39.0] Diagnosis: Fever, unspecified[ICD10: R50.9] Diagnosis: Other vitamin B12 deficiency anemias[ICD10: D51.8] Chantell Garcia MD, [facility] CPT-4: 19195 05/04/2016 ([id number]) 84977 EST. 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 PATIENT, LEVEL IV Diagnosis: Type 2 diabetes mellitus with hyperglycemia[ICD10: E11.65] Diagnosis: Essential (primary) hypertension[ICD10: I10] Daisy Garcia MD, [facility] CPT-4: 33241 11/30/2015 ([id number]) 59396 EST. PATIENT, LEVEL III Diagnosis: Acute recurrent maxillary sinusitis[ICD10: J01.01] Diagnosis: Unspecified acute conjunctivitis, right eye[ICD10: H10.31] Diagnosis: Vitamin B12 deficiency anemia, unspecified[ICD10: D51.9] Chantell Garcia MD , [facility] CPT-4: 45967 09/06/2015 97354 EST. PATIENT, LEVEL III Diagnosis: Pain in right knee[ICD10: M25.561] Diagnosis: Essential (primary) hypertension[ICD10: I10] Diagnosis: Vitamin B12 deficiency anemia, unspecified[ICD10: D51.9] Yady Garcia MD, [facility] CPT-4: 93101 08/04/2015 ([id number]) 10478 EST. PATIENT, LEVEL III Diagnosis: Streptococcal pharyngitis[ICD10: J02.0] Diagnosis: Acute recurrent maxillary sinusitis[ICD10: J01.01] Chantell Garcia MD, [facility] CPT-4: 04670 07/05/2015 ([id number]) 40599 EST. PATIENT, LEVEL IV Diagnosis: Type 2 diabetes mellitus with hyperglycemia[ICD10: E11.65] Diagnosis: Essential (primary) hypertension[ICD10: I10] Diagnosis: Vitamin B12 deficiency anemia, unspecified[ICD10: D51.9] Daisy Garcia MD, [facility] CPT-4: 59709 06/28/2015 ([id number]) 87425 EST. PATIENT, LEVEL IV Diagnosis: DM W/O COMPLICATION TYPE II, UNCONTROLLED[ICD9: 250.02] Diagnosis: ESSENTIAL HYPERTENSION[ICD9: 401.9] Diagnosis: Iron deficiency[ICD9: 280.9] Diagnosis: OTH SCREENING MAMMOGRAM[ICD9: V76.12] Diagnosis: B12 deficiency[ICD9: 266.2] Daisy Garcia MD, [facility] CPT- 4: 92476 02/23/2015 ([id number]) 85673 EST. PATIENT, LEVEL IV Diagnosis: DM W/O COMPLICATION TYPE II, UNCONTROLLED[ICD9: 250.02] Diagnosis: ESSENTIAL HYPERTENSION[ICD9: 401.9] Diagnosis: Right knee pain[ICD9: 719.46] Diagnosis: B12 deficiency[ICD9: 266.2] Chantell Garcia MD, [facility] CPT-4: 21242 01/08/2015 ([id number]) 23457 EST. PATIENT, LEVEL IV Diagnosis: DM W/O COMPLICATION TYPE II, UNCONTROLLED[ICD9: 250.02] Diagnosis: ESSENTIAL HYPERTENSION[ICD9: 401.9] Diagnosis: Iron deficiency[ICD9: 280.9] Daisy Garcia MD, [facility] CPT- 4: 50680 09/24/2014 ([id number]) 53296 EST. PATIENT, LEVEL III Diagnosis: Sacroiliitis[ICD9: 720.2] Diagnosis: Left sided sciatica[ICD9: 724.3] Chantell Garcia MD, [facility] CPT-4: 99977 05/11/2014 ([id number]) 75567 EST. PATIENT, LEVEL III Diagnosis: CELLULITIS OF BUTTOCK[ICD9: 682.5] Daisy Garcia MD, [facility] CPT-4: 00001 05/01/2014 77891 EST. PATIENT, LEVEL IV Diagnosis: ESSENTIAL HYPERTENSION[ICD9: 401.9] Diagnosis: DIABETES TYPE II[ICD9: 250.00] Diagnosis: Iron deficiency[ICD9: 280.9] Diagnosis: LUMBAGO[ICD9: 724.2] Daisy Garcia MD, [facility] CPT-4: 28301 04/03/2014 ([id number]) 26364 EST. PATIENT, LEVEL IV Diagnosis: ESSENTIAL HYPERTENSION[SNOMED: 04664078] Diagnosis: DIABETES TYPE II[SNOMED: 255743375] Diagnosis: ANEMIA[ICD9: 285.9] Diagnosis: Iron deficiency[ICD9: 280.9] Daisy Garcia MD, [facility] CPT- 4: 06387 11/24/2013 ([id number]) 91573 EST. PATIENT, LEVEL IV Diagnosis: ESSENTIAL HYPERTENSION[SNOMED: 90666348] Diagnosis: DIABETES TYPE II[SNOMED: 166028151] Diagnosis: EDEMA[ICD9: 782.3] Daisy Garcia MD, [facility] CPT-4: 22001 07/28/2013 ([id number]) 07890 EST. PATIENT, LEVEL IV Diagnosis: ESSENTIAL HYPERTENSION[SNOMED: 11519064] Diagnosis: DIABETES TYPE II[SNOMED: 896606219] Diagnosis: EDEMA[ICD9: 782.3] Diagnosis: B-COMPLEX DEFIC NEC[ICD9: 266.2] Daisy Garcia MD [facility] CPT-4: 49060 06/16/2013 ([id number]) 87512 EST. PATIENT, LEVEL IV Diagnosis: ESSENTIAL HYPERTENSION[SNOMED: 59377149] Diagnosis: DIABETES TYPE II[SNOMED: 517527236] Diagnosis: EDEMA[ICD9: 782.3] Diagnosis: B-COMPLEX DEFIC NEC[ICD9: 266.2] Daisy Garcia MD [facility] CPT-4: 58781 01/22/2013 ([id number]) 80365 EST. PATIENT, LEVEL III Diagnosis: Lumbago[ICD9: 724.2] Diagnosis: Sacroiliitis[ICD9: 720.2] Diagnosis: ESSENTIAL HYPERTENSION[SNOMED: 15555918] Daisy Garcia MD, [facility] CPT-4: 36342 10/02/2012 ([id number]) 32743 EST. PATIENT, LEVEL III Diagnosis: ACUTE URI[ICD9: 465.9] Daisy Garcia MD, [facility] CPT-4: 87576 08/06/2012 ([id number]) 59681 EST. PATIENT, LEVEL IV Diagnosis: ESSENTIAL HYPERTENSION[SNOMED: 30569540] Diagnosis: DIABETES TYPE II[SNOMED: 616260812] Diagnosis: ANEMIA[ICD9: 285.9] Daisy Garcia MD, [facility] CPT-4: 74219 07/04/2012 ([id number]) 81442 EST. PATIENT, LEVEL IV Diagnosis: ESSENTIAL HYPERTENSION[SNOMED: 34706853] Diagnosis: DIABETES TYPE II[SNOMED: 116718436] Diagnosis: B-COMPLEX DEFIC NEC[ICD9: 266.2] Daisy Garcia MD [facility] CPT-4: 19855 05/22/2012 ([id number]) 63136 EST. PATIENT, LEVEL IV Diagnosis: ESSENTIAL HYPERTENSION[SNOMED: 22415559] Diagnosis: DIABETES TYPE II[SNOMED: 074042871] Diagnosis: LUMBAGO[ICD9: 724.2] Diagnosis: B-COMPLEX DEFIC NEC[ICD9: 266.2] Daisy Garcia MD, [facility] CPT-4: 47734 04/22/2012 53405 EST. PATIENT, LEVEL III Diagnosis: Sciatica of right side[ICD9: 724.3] Diagnosis: Sacroiliitis[ICD9: 720.2] Chantell Garcia MD, [facility] CPT-4: 14616 12/28/2011 ([id number]) 44620 EST. PATIENT, LEVEL IV Diagnosis: DIABETES TYPE II[SNOMED: 772758503] Diagnosis: ESSENTIAL HYPERTENSION[SNOMED: 95005991] Daisy Garcia MD, [facility] CPT-4: 01559 12/20/2011 ([id number]) 81151 EST. PATIENT, LEVEL IV Diagnosis: ESSENTIAL HYPERTENSION[SNOMED: 28342138] Diagnosis: DIABETES TYPE II[SNOMED: 287948025] Diagnosis: PAIN IN LIMB[ICD9: 729.5] Diagnosis: LUMBAGO[ICD9: 724.2] Diagnosis: Sacroiliitis[ICD9: 720.2] [facility] CPT-4: 24293 08/23/2011 94827 EST. PATIENT, LEVEL III Diagnosis: Sacroiliitis[ICD9: 720.2] Diagnosis: Right sided sciatica[ICD9: 724.3] Diagnosis: B-COMPLEX DEFIC NEC[ICD9: 266.2] [facility] CPT-4: 94173 05/23/2011 07573 EST. PATIENT, LEVEL IV Diagnosis: DIABETES TYPE II[SNOMED: 249957821] Diagnosis: ESSENTIAL HYPERTENSION[SNOMED: 32202814] Diagnosis: Feces incontinence[ICD9: 787.60] [facility] CPT-4: 38122 04/26/2011 Plan of Care Planned Activity Notes Codes Status Date Appointment: Injection 08/21/2017 Patient Education: Patient Medication [...] shot today. 06/18/2017 Appointment: Daisy Garcia WPtel: [facility] (15 min) Moderate 06/18/2017 Patient Education: Patient [...] 5 days 06/07/2017 Appointment: Daisy Garcia WPtel: [facility]5 [facility] (15 min) Moderate 06/07/2017 Patient Education: Patient Medication Summary Completed 06/07/2017 Patient Education: Obesity Completed 06/07/2017 Appointment: Injection 05/09/2017 Patient Education: Patient Medication Summary Completed 05/09/2017 Appointment: Daisy Garcia [facility]el[facility] ([facility] min) Moderate 04/26/2017 Patient Education: Patient [...] continue with eliquis and cardizem 04/16/2017 Appointment: [place] Daisy [facility]Ptel[facility] [phone] [facility] [place] (15 min) Moderate 04/16/2017 Appointment: Daisy Garcia [facility]el[facility] [phone] [facility] [place] (15 min) Moderate 04/16/2017 Patient [...] controlled. 12/26/2016 Appointment: Daisy Garcia WPtel: [phone] [facility] (15 min) Moderate 12/26/2016 Patient Education: Patient Medication Summary Completed 12/26/2016 Appointment: [place] 11/14/2016 Patient Education: Patient Medication Summary Completed 11/14/2016 Visit Plan: Bronchitis - acute case of bronchitis identified. Pt has been given antibiotics, breathing treatments as appropriate, and pt has been instructed to call if symptoms are not improved, or if symptoms acutely worsen. 09/07/2016 Appointment: Chantell Singh WPtel: [phone] [phone] [place] (30 min) Complex 09/07/2016 Patient Education: [...] improvement. 08/29/2016 Appointment: Daisy Garcia WPtel: [phone] [facility] (15 min) Moderate 08/29/2016 Patient Education: Patient Medication Summary Completed 08/29/2016 Patient Education: Obesity Completed 08/29/2016 Appointment: Daisy Garcia WPtel: [phone] [facility] [place] (15 min) Moderate 08/22/2016 Appointment: Jose Daisy WPtel: [phone] [facility] (15 min) Moderate 08/02/2016 Appointment: Chantell Singh WPtel: [phone] [phone] [place] (30 min) Complex 08/02/2016 Visit Plan: [...] allergy spray. 06/12/2016 Appointment: Yady Harper WPtel: [facility] (15 min) Moderate 06/12/2016 Patient Education: Patient [...] office 05/04/2016 Appointment: Chantell Singh WPtel: [phone] [phone] [place] (15 min) Moderate 05/04/2016 Patient Education: [...] cream. 03/30/2016 Appointment: Daisy Garcia WPtel: [phone] [facility] (15 min) Moderate 03/30/2016 Patient Education: Patient Medication Summary Completed 03/30/2016 Patient Education: Hypertension Completed 03/30/2016 Appointment: Injection 03/17/2016 Patient Education: Patient Medication Summary Completed 03/17/2016 Appointment: Injection 02/15/2016 Patient Education: Patient Medication Summary Completed 02/15/2016 Appointment: Daisy Garcia WPtel: [phone] [facility] [place] (15 min) Moderate 01/26/2016 Appointment: Injection [...] acute concerns. 11/30/2015 Appointment: Daisy [facility] [phone] [facility] (15 min) Moderate 11/30/2015 Patient Education: Patient Medication Summary Completed 11/30/2015 Patient Education: Obesity Completed 11/30/2015 Appointment: Daisy [facility]el[facility] [phone] [facility] (15 min) Moderate 10/26/2015 Visit Plan: Sinusitis [...] at home. 06/28/2015 Appointment: Daisy Garcia WPtel: [address] [place], [place] [address] (15 min) Moderate 06/28/2015 Patient Education: Patient [...] resting. 02/23/2015 Appointment: Daisy Garcia WPtel: [facility] Follow up 02/23/2015 Patient Education: Patient Medication Summary Completed 02/23/2015 Patient Education: Hypertension Completed 02/23/2015 Care Plan: SCREENINGMAMMOGRAPHYDIGITAL LOINC : 26941-3 Ordered 02/23/2015 Visit Plan: Depression - uncontrolled [...] Care Plan: COMPLETE CBC AUTOMATED LOINC : 16037-7 Ordered 01/08/2015 Appointment: Injection 12/08/2014 Patient Education: [...] diarrhea. 09/24/2014 Appointment: Daisy Garcia [facility]Ptel[facility] [phone] [facility] Follow up 09/24/2014 Patient Education: Patient Medication Summary Completed 09/24/2014 Patient Education: Hypertension Completed 09/24/2014 Appointment: Daisy [facility]el[facility] [phone] [facility] [place] Injection 08/24/2014 Patient Education: Patient Medication [...] discharge. 05/01/2014 Appointment: Daisy Garcia WPtel: [facility] [place] Follow up 05/01/2014 Patient Education: Patient Medication Summary Completed 05/01/2014 Appointment: Daisy Garcia WPtel: [facility]5 [facility] [place] Injection 04/27/2014 Patient Education: Patient Medication [...] for pain 04/03/2014 Appointment: Chantell Singh WPtel: [facility]5 [phone] Follow up 04/03/2014 Patient Education: Patient Medication Summary Completed 04/03/2014 Patient Education: Hypertension Completed 04/03/2014 Visit Plan: vitamin b12 injection 03/24/2014 Appointment: Daisy Garcia WPtel: [facility] [place] [facility] 03/24/2014 Patient Education: Patient Medication Summary Completed 03/24/2014 Appointment: Daisy Garcia WPtel: [facility] [place] Follow [place] 03/23/2014 Appointment: [facility] Garciatel: [facility] [facility] [place] [facility] 02/24/2014 Patient Education: Patient Medication Summary Completed 02/24/2014 App[facility]ment: [facility] [facility] [place] Injection 01/09/2014 Patient Education: Patient [...] supplementation. 11/24/2013 Appointment: Daisy Garcia WPtel: [facility] [place] Follow [place] 11/24/2013 Patient Education: Patient Medication Summary Completed 11/24/2013 Patient Education: Hypertension Completed 11/24/2013 Appointment: Daisy Garcia WPtel: [facility] [place] Follow [place] 11/12/2013 App[facility]ment: [facility]el[facility] [address] [facility] [place] Follow [place] 10/27/2013 Appointment: [facility] [facility] [place] Injection 09/18/2013 Patient Education: Patient Medication Summary Completed 09/18/2013 Appointment: [facility] [address] [facility] [place] [facility] 08/22/2013 Patient Education: [...] App[facility]ment: Daisy [facility]el[facility] [address] [facility] [facility] 07/28/2013 Patient Education: Patient Medication Summary Completed 07/28/2013 Patient Education: Hypertension Completed 07/28/2013 App[facility]ment[phone] [phone] [place] [facility] 06/20/2013 Visit Plan: [...] App[facility]ment[phone] [place] Follow up 06/16/2013 Patient Education: Patient Medication Summary Completed 06/16/2013 Patient Education: Hypertension Completed 06/16/2013 App[facility]ment: [phone] [phone] [place] Injection 05/21/2013 Patient Education: Patient Medication Summary Completed 05/21/2013 Appointment: Daisy Garcia WPtel: [phone] [facility] [place] Injection 04/23/2013 Patient Education: Patient Medication Summary Completed 04/23/2013 Appointment: Daisy Garcia WPtel: [phone] [facility] [place] Injection 03/24/2013 Patient Education: Patient Medication Summary Completed 03/24/2013 Appointment: Daisy Garcia WPtel: [phone] [facility] [place] Injection 02/20/2013 Patient Education: Patient Medication [...] App[facility]ment: [facility] [phone] [facility] [place] Follow up 01/22/2013 Patient Education: Patient Medication Summary Completed 01/22/2013 Patient Education: Hypertension Completed 01/22/2013 [facility]ment: [phone] [facility] [place] [facility] 01/21/2013 Patient Education: Patient Medication Summary Completed 12/19/2012 Appointment: Daisy Garcia WPtel: [phone] [facility] [place] Injection 11/22/2012 Appointment: Daisy Garcia WPtel: [phone] [facility] [place] Injection 11/20/2012 Patient Education: Patient Medication Summary Completed 11/20/2012 App[facility]ment: [facility] [phone] [phone] [place] In[facility] 11/08/2012 [facility]ointment: [phone] [facility] [place] [facility] 10/23/2012 Patient Education: Patient [...] Completed 10/02/2012 Appointment: Chantell Singh WPtel: [phone] [phone] Lab Draw 09/16/2012 Patient Education: Patient Medication [...] office. 08/06/2012 Appointment: Chantell Singh WPtel: [phone] [phone] [facility] 08/06/2012 Patient Education: Patient Medication Summary Completed 08/06/2012 Patient Education: Patient Medication Summary Completed 07/19/2012 Visit Plan: Joint Injection - Pt was given post - injection instructions. The pt has been advised to use antiinflammatories post injection today, ice to the injected site, call if redness, warmth, or increased pain occurs at the site of injection. 07/10/2012 Appointment: Daisy Garcia WPtel: [phone] [facility] [place] Injection 07/10/2012 Patient Education: Patient Medication [...] controlled. 07/04/2012 Appointment: [phone] [facility] [facility] 07/04/2012 Patient Education: Patient Medication Summary Completed 07/04/2012 Patient Education: Hypertension Completed 07/04/2012 [facility]ment: [facility] [phone] [facility] [place] [facility] 06/19/2012 Patient Education: Patient [...] office. 05/22/2012 Appointment: [facility] [phone] [phone] Follow up 05/22/2012 Appointment: [facility] [phone] [phone] Follow up 05/22/2012 Patient Education: Patient [...] the office 04/22/2012 Appointment: Chantell Singh WPtel: [phone] Established Patient Preventative visit 04/22/2012 Patient Education: Patient Medication Summary Completed 04/22/2012 Patient Education: High Blood Pressure: Essential Hypertension Completed 2011 Appointment: Chantell Singh WPtel: [phone] [place] Injection 03/19/2012 Patient Education: Patient Medication Summary Completed 03/19/2012 Appointment: Daisy Garcia WPtel: [facility] [place] [facility] 02/15/2012 Patient Education: Patient Medication Summary Completed 02/15/2012 Appointment: [facility]el[facility] [phone] [facility] [place] [facility] 01/18/2012 Patient Education: Patient [...] worse. 12/28/2011 Appointment: Chantell Singh WPtel: [phone] [phone] [place] Other 12/28/2011 Patient Education: Patient Medication [...] today. 12/20/2011 Appointment: [facility]el[facility] [phone] [facility] [place] Other 12/20/2011 Patient Education: Patient Medication Summary Completed 12/20/2011 Patient Education: High Blood Pressure: Essential Hypertension Completed 2011 Appointment: [facility] [phone] [phone] [place] 11/07/2011 Patient Education: Patient Medication Summary Completed 11/07/2011 App[facility]ment: [facility]el[facility] [phone] [facility] [place] [facility] 10/03/2011 Patient Education: Patient Medication Summary Completed 10/03/2011 App[facility]ment: [facility]el[facility] [phone] [facility] [place] [facility] 08/28/2011 Visit Plan: Hypertension [...] left today 08/23/2011 Appointment: Daisy Garcia WPtel: [phone] [facility] Other 08/23/2011 Patient Education: Patient Medication Summary Completed 08/23/2011 Patient Education: High Blood Pressure: Essential Hypertension Completed 2011 Appointment: Chantell Singh WPtel: [phone] [phone] [place] Injection 07/28/2011 Patient Education: Patient Medication Summary Completed 07/28/2011 Visit Plan: b12 injection 06/29/2011 Appointment: Chantell Singh WPtel: [facility]5 [phone] [place] Injection 06/29/2011 Patient Education: Patient Medication [...] office 05/23/2011 Appointment: Chantell Singh WPtel: [facility]5 [phone] Other 05/23/2011 Patient Education: Patient Medication Summary [...] IRON. 04/26/2011 Appointment: Daisy Garcia WPtel: [facility] [facility] 04/26/2011 Patient Education: Patient Medication [...] call for acute concerns. . Hypertension - well controlled - continue [...] change in symptoms, worsening redness, warmth, discharge. Once pt runs out of ktetta, she is to start on victoza at [...] has been VERY well controlled on the bymakenzie and has been with great diabetic control [...] are starting to become less controlled. . Sinusitis - Pt has acute infection [...] GI upset with nausea and diarrhea. . Hypertension - elevated today in the [...] controlled. B12 injection today in the office. Increase lisinopril to 40mg po daily Monitor [...] look at the cost of bydureon and guerda. Handicap plaque order given to patient - [...]
[2018-07-17 07:25] LABS: HEMOGLOBIN 11.5 G/DL (11.5-16.0); MEAN PLATELET VOLUME 10.5 FL (7.4-10.4); RED BLOOD COUNT 4.11 10^6/uL (4.35-5.85); RED CELL DISTRIBUTION WIDTH 14.8 % (10.0-14.5); WHITE BLOOD COUNT 5.9 10^3/uL (4.3-11.0)
[2018-07-17 07:26] LABS: BILIRUBIN,URINE NEGATIVE (NEGATIVE); CLARITY,URINE CLEAR; COLOR,URINE YELLOW; GLUCOSE, URINE (UA) NEGATIVE (NEGATIVE); KETONES,URINE NEGATIVE (NEGATIVE); LEUKOCYTE ESTERASE ,URINE 1+ (NEGATIVE); NITRITE,URINE NEGATIVE (NEGATIVE); PH,URINE 5 (5-9); PROTEIN,URINE 1+ (NEGATIVE); UROBILINOGEN,URINE 4 MG/DL (NORMAL)
--- OUTSIDE RECORDS SUMMARY | 2018-07-17 07:30 | XMS REPORT | CCD ---
Author Author Daisy Garcia Organization [facility] Address [address] [place] [address] Phone Care Team Providers Care Conditioner Tumbler Name Role Phone Daisy Garcia PP Unavailable CCM Unavailable Summary Purpose Interface Exchange Insurance Providers Payer name Policy type / Coverage type Covered libertarian ID Effective Begin Date Effective End Date WPS Medicare Part B Medicare Part B [id number] Unknown AETNA Medicare Part B [id number] Unknown Family history Sister Diagnosis Age At [...] 1 daughter 04/21/[address]: 788422276 Nonsmoker 04/21/[address]: 843241611 Never drinks alcohol 04/21/2011 Has the patient [...] Start Date Stop Date Status Fill Instructions glipizide 10 mg tablet RxNorm: 505805 Tablet(s) TAKE ONE TABLET BY MOUTH TWICE A DAY 08/23/2017 02/18/2018 Active cyanocobalamin (vit B-12) 1,000 mcg/mL injection solution RxNorm: 419912 1 Milliliter(s) Inj 08/21/2017 08/21/2017 Inactive Synthroid 50 mcg tablet RxNorm: 679068 TAKE ONE TABLET BY MOUTH EVERY DAY. 08/15/2017 10/13/2017 Active metformin ER 500 mg tablet,extended release 24 hr RxNorm: 187146 TAKE TWO TABLETS BY MOUTH TWICE A DAY 07/31/20172017 Active Tricor 145 mg tablet RxNorm: 113435 TAKE ONE TABLET BY MOUTH DAILY 07/31/2017 11/27/2017 Active spironolactone 25 mg tablet RxNorm: 476984 TAKE ONE TABLET BY MOUTH TWICE A DAY 07/31/2017 07/25/2018 Active Tenex 1 mg tablet RxNorm: 860024 TAKE ONE TABLET BY MOUTH DAILY 07/20/2017 01/15/2018 Active cyanocobalamin (vit B-12) 1,000 mcg/mL injection solution RxNorm: 801965 1 Milliliter(s) Inj 07/18/2017 07/18/2017 Inactive Byetta 10 mcg/dose(250 mcg/mL)2.4 mL subcutaneous pen injector RxNorm: 520241 INJECT 10 MCG UNDER THE SKIN TWO TIMES A DAY ( START AFTER 5 MCG DOSE IS COMPLETE ) 06/18/2017 04/13/2018 Active potassium chloride ER 20 mEq tablet,extended release(part/ cryst) RxNorm: 5692896 TAKE ONE TABLET BY MOUTH DAILY WHEN YOU TAKE LASIX (FUROSEMIDE) 06/18/2017 09/15/2017 Active Flonase Allergy Relief 50 mcg/actuation nasal spray, suspension RxNorm: 3904902 1 [place] NASAL BID 06/18/20172017 Active Kenalog 40 mg/mL suspension for injection RxNorm: 6097260 1 Milliliter(s) Inj 06/18/2017 06/18/2017 Inactive cyanocobalamin (vit B-12) 1,000 mcg/mL injection solution RxNorm: 784486 1 Milliliter(s) Inj 06/18/2017 06/18/2017 Inactive Lasix 20 mg tablet RxNorm: 694932 Tablet(s) TAKE ONE TABLET BY MOUTH EVERY DAY NEEDED FOR SWELLING. TAKE POTASSIUM WITH EACH DOSE 201610/02/2017 Active cyanocobalamin (vit B-12) 1,000 mcg/mL injection solution RxNorm: 107193 1 Milliliter(s) Inj 05/09/2017 05/09/2017 Inactive cyanocobalamin (vit B-12) 1,000 mcg/mL injection solution RxNorm: 704294 1 Milliliter(s) Inj 04/04/2017 04/04/2017 Inactive metformin ER 500 mg tablet,extended release 24 hr RxNorm: 759956 TAKE TWO TABLETS BY MOUTH TWICE A DAY 03/01/20172016 Inactive Kenalog 40 mg/mL suspension for injection RxNorm: 8262287 1 Milliliter(s) Inj 02/23/2017 02/23/2017 Inactive amlodipine 5 mg tablet RxNorm: 025280 TAKE ONE TABLET BY MOUTH TWICE A DAY 02/22/2017 11/18/2017 Active glipizide 10 mg tablet RxNorm: 370215 TAKE ONE TABLET BY MOUTH TWICE A DAY 02/12/2017 08/10/2017 Inactive cyanocobalamin (vit B-12) 1,000 mcg/mL injection solution RxNorm: 972993 Milliliter(s) Inj 01/23/2017 01/23/2017 Inactive Synthroid 50 mcg tablet RxNorm: 718599 TAKE ONE TABLET BY MOUTH EVERY DAY. 12/21/2016 06/18/2017 Inactive potassium chloride ER 20 mEq tablet,extended release(part/ cryst) RxNorm: 9405105 TAKE ONE TABLET BY MOUTH DAILY WHEN YOU TAKE LASIX (FUROSEMIDE) 12/21/2016 04/19/2017 Inactive Tricor 145 mg tablet RxNorm: 510161 TAKE ONE TABLET BY MOUTH DAILY 12/21/2016 06/06/2017 Inactive Lasix 20 mg tablet RxNorm: 667218 TAKE ONE TABLET BY MOUTH EVERY DAY NEEDED FOR SWELLING. TAKE POTASSIUM WITH EACH DOSE 12/11/2016 04/09/2017 Inactive cyanocobalamin (vit B-12) 1,000 mcg/mL injection solution RxNorm: 276535 1 Milliliter(s) Inj 11/14/2016 11/14/2016 Inactive simvastatin 20 mg tablet RxNorm: 093722 TAKE ONE TABLET BY MOUTH EVERY NIGHT AT BEDTIME 10/23/2016 04/15/2017 Inactive Tenex 1 mg tablet RxNorm: 963420 TAKE ONE TABLET BY MOUTH DAILY 10/16/2016 11/14/2016 Inactive glipizide 10 mg tablet RxNorm: 381556 TAKE ONE TABLET BY MOUTH TWICE A DAY 09/20/2016 02/11/2017 Inactive doxycycline hyclate 100 mg capsule RxNorm: 8926344 1 Capsule(s) PO BID 09/12/2016 09/18/2016 Inactive doxycycline hyclate 100 mg capsule RxNorm: 3090167 1 Capsule(s) PO BID 09/12/2016 09/11/2016 Inactive Phenergan with Codeine Syrup RxNorm: 5-10 Milliliter(s) PO Q6 PRN 09/07/2016 No Stop Date Active prednisone 20 mg tablet RxNorm: 496901 1 Tablet(s) PO BID 09/0709/11/2016 Inactive Kenalog 40 mg/mL suspension for injection RxNorm: 1956753 1 Milliliter(s) Inj 09/07/2016 09/07/2016 Inactive Tessalon Perles 100 mg capsule RxNorm: 271993 1 Capsule(s) PO TID PRN 09/01/2016 09/20/2016 Inactive Zyrtec 10 mg capsule RxNorm: 6971784 1 Capsule(s) PO daily 03/26/2017 Inactive Flonase Allergy Relief 50 mcg/actuation nasal spray, suspension RxNorm: 8079720 1 [place] NASAL BID 08/29/20162016 Inactive cyanocobalamin (vit B-12) 1,000 mcg/mL injection solution RxNorm: 739860 1 Milliliter(s) Inj 08/29/2016 08/29/2016 Inactive metformin ER 500 mg tablet,extended release 24 hr RxNorm: 147916 Tablet(s) TAKE TWO TABLETS BY MOUTH TWICE A DAY 08/28/2016 02/23/2017 Inactive Lopressor 100 mg tablet RxNorm: 688748 TAKE ONE TABLET BY MOUTH DAILY 06/27/2016 04/15/2017 Inactive cetirizine 10 mg tablet RxNorm: 1810142 1 Tablet(s) PO daily 07/11/2016 Inactive Flonase Allergy Relief 50 mcg/actuation nasal spray, suspension RxNorm: 9354453 1 [place] NASAL BID 06/12/20162016 Inactive cyanocobalamin (vit B-12) 1,000 mcg/mL injection solution RxNorm: 840318 Milliliter(s) Inj 06/12/2016 06/12/2016 Inactive spironolactone 25 mg tablet RxNorm: 168579 TAKE ONE TABLET BY MOUTH TWICE A DAY 06/06/2016 03/02/2017 Inactive Request already responded to by other means (e.g. phone or fax) spironolactone 25 mg tablet RxNorm: 903768 Tablet(s) TAKE ONE TABLET BY MOUTH TWICE A DAY 05/29/2016 06/05/2016 Inactive ceftriaxone 500 mg solution for injection RxNorm: 7205000 2 Milliliter(s) Inj 05/04/2016 05/04/2016 Inactive cyanocobalamin (vit B-12) 1,000 mcg/mL injection solution RxNorm: 343496 Milliliter(s) Inj 05/04/2016 05/04/2016 Inactive Cipro 500 mg tablet RxNorm: 580868 1 Tablet(s) PO BID 201505/10/2016 Inactive OneTouch Ultra Test strips RxNorm: TEST DAILY 04/24/2016 04/18/2017 Inactive Byetta 10 mcg/dose(250 mcg/mL)2.4 mL subcutaneous pen injector RxNorm: 613172 INJECT 10 MCG UNDER THE SKIN TWO TIMES A DAY ( START AFTER 5 MCG DOSE IS COMPLETE ) 04/18/2016 03/13/2017 Inactive Lasix 20 mg tablet RxNorm: 121415 TAKE ONE TABLET BY MOUTH EVERY DAY NEEDED FOR SWELLING. TAKE POTASSIUM WITH EACH DOSE 04/07/2016 09/03/2016 Inactive potassium chloride ER 20 mEq tablet,extended release(part/ cryst) RxNorm: 8932798 TAKE ONE TABLET BY MOUTH DAILY WHEN YOU TAKE LASIX (FUROSEMIDE) 04/07/2016 09/03/2016 Inactive triamcinolone acetonide 0.5 % topical cream RxNorm: 1917805 1 Application TOP BID to lesions on buttock 03/30/20162015 Inactive metformin ER 500 mg tablet,extended release 24 hr RxNorm: 188748 TAKE TWO TABLETS BY MOUTH TWICE A DAY 03/23/20162016 Inactive glipizide 10 mg tablet RxNorm: 004359 TAKE ONE TABLET BY MOUTH TWICE A DAY 03/17/2016 11/11/2016 Inactive Request already responded to by other means (e.g. phone or fax) cyanocobalamin (vit B-12) 1,000 mcg/mL injection solution RxNorm: 367734 Milliliter(s) Inj 03/17/2016 03/17/2016 Inactive glipizide 10 mg tablet RxNorm: 701900 Tablet(s) TAKE ONE TABLET BY MOUTH TWICE A DAY 03/13/2016 03/16/2016 Inactive Tricor 145 mg tablet RxNorm: 471949 TAKE ONE TABLET BY MOUTH ONCE A DAY 02/18/2016 02/11/2017 Inactive Request already responded to by other means (e.g. phone or fax) amlodipine 5 mg tablet RxNorm: 609673 TAKE ONE TABLET BY MOUTH TWICE A DAY 02/18/2016 08/15/2016 Inactive Request already responded to by other means (e.g. phone or fax) cyanocobalamin (vit B-12) 1,000 mcg/mL injection solution RxNorm: 070654 1 Milliliter(s) Inj 02/15/2016 02/15/2016 Inactive amlodipine 5 mg tablet RxNorm: 790143 Tablet(s) TAKE ONE TABLET BY MOUTH TWICE A DAY 02/14/2016 02/17/2016 Inactive Tricor 145 mg tablet RxNorm: 963870 1 Tablet(s) PO daily TAKE ONE TABLET BY MOUTH ONCE A DAY 02/14/2016 02/17/2016 Inactive Synthroid 50 mcg tablet RxNorm: 287804 TAKE ONE TABLET BY MOUTH EVERY DAY. 01/31/2016 08/27/2016 Inactive hydrocodone 5 mg-acetaminophen 325 mg tablet RxNorm: 276010 1-2 Tablet(s) PO Q4 PRN as needed pain 01/28/2016 No Stop Date Active cyanocobalamin (vit B-12) 1,000 mcg/mL injection solution RxNorm: 874803 Milliliter(s) Inj 01/19/2016 01/19/2016 Inactive metformin ER 500 mg tablet,extended release 24 hr RxNorm: 592928 TAKE TWO TABLETS BY MOUTH TWICE A DAY 01/18/20162015 Inactive cyanocobalamin (vit B-12) 1,000 mcg/mL injection solution RxNorm: 522146 1 Milliliter(s) Inj 12/07/2015 12/07/2015 Inactive metformin ER 500 mg tablet,extended release 24 hr RxNorm: 896784 TAKE TWO TABLETS BY MOUTH TWICE A DAY 10/18/20152015 Inactive simvastatin 20 mg tablet RxNorm: 779287 1 Tablet(s) PO QHS TAKE ONE TABLET BY MOUTH AT BEDTIME 10/08/2015 10/01/2016 Inactive Tenex 1 mg tablet RxNorm: 507245 TAKE ONE TABLET BY MOUTH DAILY 10/04/2015 09/27/2016 Inactive Lopressor 100 mg tablet RxNorm: 144752 TAKE ONE TABLET BY MOUTH DAILY 09/20/2015 06/15/2016 Inactive Diflucan 150 mg tablet RxNorm: 639733 1 Tablet(s) PO daily 02/201609/12/2015 Inactive cyanocobalamin (vit B-12) 1,000 mcg/mL injection kit RxNorm: 759982 kit Inj 09/06/2015 09/06/2015 Inactive gentamicin 0.3 % eye drops RxNorm: 336490 2 Drop(s) OPH QID 02/201609/12/2015 Inactive ceftriaxone 500 mg solution for injection RxNorm: 3448107 Inj 09/06/2015 09/06/2015 Inactive Keflex 500 mg capsule RxNorm: 957634 1 Capsule(s) PO TID 201509/12/2015 Inactive hydrocodone 5 mg-acetaminophen 325 mg tablet RxNorm: 349433 1-2 Tablet(s) PO Q4 PRN as needed pain 08/09/2015 01/27/2016 Inactive Lortab 5 mg-500 mg tablet RxNorm: 554726 1-2 Tablet(s) PO Q4 PRN as needed pain 08/03/2015 08/08/2015 Inactive Diflucan 150 mg tablet RxNorm: 472086 1 Tablet(s) PO daily 07/16/2015 Inactive Lasix 20 mg tablet RxNorm: 270383 TAKE ONE TABLET BY MOUTH EVERY DAY NEEDED FOR SWELLING. TAKE POTASSIUM WITH EACH DOSE 07/13/2015 01/08/2016 Inactive spironolactone 25 mg tablet RxNorm: 169621 TAKE ONE TABLET BY MOUTH TWICE A DAY 07/13/2015 05/07/2016 Inactive potassium chloride ER 20 mEq tablet,extended release(part/ cryst) RxNorm: 144993 TAKE ONE TABLET BY MOUTH DAILY WHEN YOU TAKE LASIX (FUROSEMIDE) 07/13/2015 01/08/2016 Inactive Tessalon Perles 100 mg capsule RxNorm: 986529 1 Capsule(s) PO TID PRN 07/05/2015 08/31/2016 Inactive Keflex 500 mg capsule RxNorm: 949599 1 Capsule(s) PO TID 201407/14/2015 Inactive Kenalog 40 mg/mL suspension for injection RxNorm: 6196799 Milliliter(s) Inj 07/05/2015 07/05/2015 Inactive ceftriaxone 500 mg solution for injection RxNorm: 5210553 Inj 07/05/2015 07/05/2015 Inactive cyanocobalamin (vit B-12) 1,000 mcg/mL injection solution RxNorm: 144854 Milliliter(s) Inj 06/28/2015 06/28/2015 Inactive Synthroid 50 mcg tablet RxNorm: 977808 TAKE ONE TABLET BY MOUTH EVERY DAY. 06/21/2015 11/17/2015 Inactive metformin ER 500 mg tablet,extended release 24 hr RxNorm: 188218 TAKE TWO TABLETS BY MOUTH TWICE A DAY 06/14/20152015 Inactive glipizide 10 mg tablet RxNorm: 215293 TAKE ONE TABLET BY MOUTH TWICE A DAY 05/31/2015 02/24/2016 Inactive cyanocobalamin (vit B-12) 1,000 mcg/mL injection solution RxNorm: 184724 Milliliter(s) Inj 05/13/2015 05/13/2015 Inactive Tricor 145 mg tablet RxNorm: 495735 1 Tablet(s) PO daily TAKE ONE TABLET BY MOUTH ONCE A DAY 05/07/2015 05/06/2015 Inactive Tricor 145 mg tablet RxNorm: 978189 1 Tablet(s) PO daily TAKE ONE TABLET BY MOUTH ONCE A DAY 05/07/2015 01/31/2016 Inactive Tricor 145 mg tablet RxNorm: 910518 TAKE ONE TABLET BY MOUTH ONCE A DAY 05/06/2015 05/06/2015 Inactive Byetta 10 mcg/dose(250 mcg/mL)2.4 mL subcutaneous pen injector RxNorm: 555127 Microgram(s) SQ 10mcg twice daily ( start after 5mcg dose is complete) 04/01/2015 03/25/2016 Inactive Byetta 5 mcg/dose (250 mcg/mL)1.2 mL subcutaneous pen injector RxNorm: 493564 Microgram(s) SQ 5mcg twice daily x 1 month 03/04/2015 04/02/2015 Inactive Byetta 10 mcg/dose(250 mcg/mL)2.4 mL subcutaneous pen injector RxNorm: 216023 Microgram(s) SQ 10mcg twice daily ( start after 5mcg dose is complete) 03/04/2015 03/31/2015 Inactive Byetta 5 mcg/dose (250 mcg/mL)1.2 mL subcutaneous pen injector RxNorm: 144574 Microgram(s) SQ 5mcg twice daily x 1 month 03/04/2015 03/03/2015 Inactive Byetta 10 mcg/dose(250 mcg/mL)2.4 mL subcutaneous pen injector RxNorm: 933509 Microgram(s) SQ 10mcg twice daily ( start after 5mcg dose is complete) 03/04/2015 03/03/2015 Inactive cyanocobalamin (vit B-12) 1,000 mcg/mL injection solution RxNorm: 370243 Milliliter(s) Inj 02/23/2015 02/23/2015 Inactive cyanocobalamin (vit B-12) 1,000 mcg/mL injection solution RxNorm: 462785 Milliliter(s) Inj 01/08/2015 01/08/2015 Inactive simvastatin 20 mg tablet RxNorm: 135863 TAKE ONE TABLET BY MOUTH AT BEDTIME 01/07/2015 10/03/2015 Inactive Lortab 5 mg-500 mg tablet RxNorm: 318932 1-2 Tablet(s) PO Q4 PRN as needed q 4- 6hrs prn pain 12/15/2014 08/02/2015 Inactive Lortab 5 mg-500 mg tablet RxNorm: 174496 1-2 Tablet(s) PO Q4 PRN as needed q 4- 6hrs prn pain 12/15/2014 08/02/2015 Inactive amlodipine 5 mg tablet RxNorm: 399762 TAKE ONE TABLET BY MOUTH TWICE A DAY 12/14/2014 12/13/2014 Inactive amlodipine 5 mg tablet RxNorm: 254465 TAKE ONE TABLET BY MOUTH TWICE A DAY 12/14/2014 03/13/2015 Inactive cyanocobalamin (vit B-12) 1,000 mcg/mL injection solution RxNorm: 563956 Milliliter(s) Inj 12/08/2014 12/08/2014 Inactive Synthroid 50 mcg tablet RxNorm: 277816 TAKE ONE TABLET BY MOUTH EVERY DAY. 10/29/2014 04/26/2015 Inactive Lasix 20 mg tablet RxNorm: 377486 Tablet(s) TAKE ONE TABLET BY MOUTH EVERY DAY NEEDED FOR SWELLING. TAKE POTASSIUM WITH EACH DOSE 201405/25/2015 Inactive potassium chloride ER 20 mEq tablet,extended release(part/ cryst) RxNorm: 724119 Tablet(s) TAKE ONE TABLET BY MOUTH EVERY DAY WHEN YOU TAKE LASIX (FUROSEMIDE) 10/28/2014 05/25/2015 Inactive cyanocobalamin (vit B-12) 1,000 mcg/mL injection solution RxNorm: 623843 Milliliter(s) Inj 10/26/2014 10/26/2014 Inactive OneTouch Ultra Test strips RxNorm: TEST TWO TIMES A DAY 201405/10/2028 Active OneTouch Ultra Test strips RxNorm: 1 Miscellaneous BID 201410/21/2014 Inactive dx: 250.02 Victoza 2-J Luis 0.6 mg/0.1 mL (18 mg/3 mL) subcutaneous pen injector RxNorm: 826772 1.8 Milligram(s) SQ daily 09/24/201402/22 Inactive cyanocobalamin (vit B-12) 1,000 mcg/mL injection solution RxNorm: 917493 Milliliter(s) Inj 09/24/2014 09/24/2014 Inactive Tenex 1 mg tablet RxNorm: 415146 1 Tablet(s) PO daily TAKE ONE TABLET BY MOUTH EVERY DAY 09/24/2014 10/03/2015 Inactive Lopressor 100 mg tablet RxNorm: 092874 TAKE ONE TABLET BY MOUTH EVERY DAY 09/14/2014 06/10/2015 Inactive Lopressor 100 mg tablet RxNorm: 469888 1 Tablet(s) PO daily TAKE ONE TABLET BY MOUTH EVERY DAY 09/14/2014 09/13/2014 Inactive cyanocobalamin (vit B-12) 1,000 mcg/mL injection solution RxNorm: 582452 Milliliter(s) Inj 08/24/2014 08/24/2014 Inactive [SAVINGS FOR UNINSURED PATIENTS - - BIN:[id number], PCN: [id number], Group: [id number], ID# [id number], Process claim through [employer], for questions: . THIS IS NOT INSURANCE.] Victoza 2-J Luis 0.6 mg/0.1 mL (18 mg/3 mL) subcutaneous pen injector RxNorm: 315553 1.2 Milligram(s) SQ daily 08/05/201409/23 Inactive glipizide 10 mg tablet RxNorm: 419468 TAKE ONE TABLET BY MOUTH TWICE A DAY 07/28/2014 05/23/2015 Inactive Tenex 1 mg tablet RxNorm: 766051 TAKE ONE TABLET BY MOUTH EVERY DAY 07/02/2014 07/01/2014 Inactive Tenex 1 mg tablet RxNorm: 483682 TAKE ONE TABLET BY MOUTH EVERY DAY 07/02/2014 09/23/2014 Inactive spironolactone 25 mg tablet RxNorm: 685647 TAKE ONE TABLET BY MOUTH TWICE A DAY 07/02/2014 04/27/2015 Inactive spironolactone 25 mg tablet RxNorm: 268269 Tablet(s) PO TAKE ONE TABLET BY MOUTH TWICE A DAY 06/30/2014 07/01/2014 Inactive Tenex 1 mg tablet RxNorm: 771148 Tablet(s) PO TAKE ONE TABLET BY MOUTH EVERY DAY 06/30/2014 07/01/2014 Inactive Lortab 5 mg-500 mg tablet RxNorm: 586524 1-2 Tablet(s) PO Q4 PRN as needed q 4- 6hrs prn pain 06/22/2014 12/14/2014 Inactive metformin ER 500 mg tablet,extended release 24 hr RxNorm: 177855 Tablet(s) PO TAKE TWO TABLETS BY MOUTH TWICE A DAY 06/05/2014 06/13/2015 Inactive [SAVINGS FOR UNINSURED PATIENTS -- BIN:[id number], PCN: [id number], Group: [id number], ID# [id number], Process claim through [employer], for questions: . THIS IS NOT INSURANCE.] cyanocobalamin (vit B-12) 1,000 mcg/mL injection solution RxNorm: 222531 1 Milliliter(s) Inj monthly 06/01/201406/01 Inactive Kenalog 40 mg/mL suspension for injection RxNorm: 4824178 1 Milliliter(s) Inj 05/11/2014 05/11/2014 Inactive cyanocobalamin (vit B-12) 1,000 mcg/mL injection kit RxNorm: 660390 Milliliter(s) Inj 04/27/2014 04/27/2014 Inactive amlodipine 5 mg tablet RxNorm: 086167 TAKE ONE TABLET BY MOUTH TWICE A DAY 04/02/2014 07/30/2014 Inactive cyanocobalamin (vit B-12) 1,000 mcg/mL injection kit RxNorm: 231443 1 Milliliter(s ) Inj 03/24/2014 03/24/2014 Inactive [SAVINGS FOR UNINSURED PATIENTS -- BIN:[id number] , PCN: [id number], Group: [id number], ID# [id number], Process claim through [employer], for questions: . THIS IS NOT INSURANCE.] cyanocobalamin (vit B-12) 1,000 mcg/mL injection solution RxNorm: 189541 1 Milliliter(s) Inj 03/24/2014 03/24/2014 Inactive Synthroid 50 mcg tablet RxNorm: 183846 TAKE ONE TABLET BY MOUTH EVERY DAY. 03/01/2014 09/26/2014 Inactive Lasix 20 mg tablet RxNorm: 815206 TAKE ONE TABLET BY MOUTH EVERY DAY NEEDED FOR SWELLING. TAKE POTASSIUM WITH EACH DOSE 03/01/2014 09/26/2014 Inactive potassium chloride ER 20 mEq tablet,extended release(part/ cryst) RxNorm: 557164 TAKE ONE TABLET BY MOUTH EVERY DAY WHEN YOU TAKE LASIX (FUROSEMIDE) 03/01/2014 09/26/2014 Inactive cyanocobalamin (vit B-12) 1,000 mcg/mL injection solution RxNorm: 718493 1 Milliliter(s) Inj 02/24/2014 02/24/2014 Inactive Tricor 145 mg tablet RxNorm: 588375 TAKE ONE TABLET BY MOUTH EVERY DAY 02/16/2014 02/15/2014 Inactive Victoza 2-J Luis 0.6 mg/0.1 mL (18 mg/3 mL) subcutaneous pen injector RxNorm: 706671 1.2 Milligram(s) SQ daily 02/16/201408/04 Inactive Tricor 145 mg tablet RxNorm: 126154 TAKE ONE TABLET BY MOUTH EVERY DAY 02/16/2014 06/15/2014 Inactive Synthroid 50 mcg tablet RxNorm: 314819 TAKE ONE TABLET BY MOUTH EVERY DAY. 02/02/2014 03/03/2014 Inactive Synthroid 50 mcg tablet RxNorm: 368879 TAKE ONE TABLET BY MOUTH EVERY DAY. 02/02/2014 02/01/2014 Inactive simvastatin 20 mg tablet RxNorm: 146172 TAKE ONE TABLET BY MOUTH AT BEDTIME 01/12/2014 01/06/2015 Inactive cyanocobalamin (vit B-12) 1,000 mcg/mL injection solution RxNorm: 604827 Milliliter(s) Inj 01/09/2014 01/09/2014 Inactive Lortab 5 mg-500 mg tablet RxNorm: 426049 1-2 Tablet(s) PO Q4 PRN q 4-6hrs prn pain 12/23/2013 No Stop Date Active Lasix 20 mg tablet RxNorm: 012843 Tablet(s) PO TAKE ONE TABLET BY MOUTH EVERY DAY NEEDED FOR SWELLING. TAKE POTASSIUM WITH EACH DOSE 12/201302/28/2014 Inactive potassium chloride ER 20 mEq tablet,extended release(part/ cryst) RxNorm: 705336 Tablet(s) PO TAKE ONE TABLET BY MOUTH EVERY DAY WHEN YOU TAKE LASIX (FUROSEMIDE ) 12/02/2013 02/28/2014 Inactive Lomotil 2.5 mg-0.025 mg tablet RxNorm: 9627659 Tablet(s) PO TAKE ONE TABLET BY MOUTH EVERY 8 HOURS NEEDED 11/27/2013 No Stop Date Active (Appended: Controlled substance eRx refill - RxReferenceNumber: [id number]) Lomotil 2.5 mg-0.025 mg tablet RxNorm: 8037440 1 Tablet(s) PO Q8 PRN 11/27/2013 05/25/2014 Inactive cyanocobalamin (vit B-12) 1,000 mcg/mL injection solution RxNorm: 069617 1 Milliliter(s) Inj 11/27/2013 11/27/2013 Inactive Vitamin B-12 1,000 mcg/mL injection solution RxNorm: 355390 1 Milliliter(s) Inj monthly 11/24/2013 11/18/2014 Inactive ok to give multidose if available Synthroid 50 mcg tablet RxNorm: 776639 Tablet(s) PO TAKE ONE TABLET BY MOUTH EVERY DAY. 10/31/2013 02/01/2014 Inactive simvastatin 20 mg tablet RxNorm: 020168 Tablet(s) PO TAKE ONE TABLET BY MOUTH AT BEDTIME 10/10/2013 01/11/2014 Inactive Vitamin B-12 1,000 mcg/mL injection solution RxNorm: 091025 1 Milliliter(s) Inj monthly 09/30/2013 09/29/2013 Inactive ok to give multidose if available Vitamin B-12 1,000 mcg/mL injection solution RxNorm: 529785 1 Milliliter(s) Inj monthly 09/30/2013 11/23/2013 Inactive ok to give multidose if available Vitamin B-12 1,000 mcg/mL injection solution RxNorm: 598164 1 Milliliter(s) Inj 09/18/2013 09/18/2013 Inactive Lopressor 100 mg tablet RxNorm: 000073 Tablet(s) PO TAKE ONE TABLET BY MOUTH EVERY DAY 09/15/2013 09/13/2014 Inactive Vitamin B-12 1,000 mcg/mL injection solution RxNorm: 339917 1 Milliliter(s) Inj 08/22/2013 08/22/2013 Inactive glipizide 10 mg tablet RxNorm: 700616 Tablet(s) PO TAKE ONE TABLET BY MOUTH TWICE A DAY 08/15/2013 07/27/2014 Inactive Tenex 1 mg tablet RxNorm: 787418 Tablet(s) PO TAKE ONE TABLET BY MOUTH EVERY DAY 08/05/2013 06/29/2014 Inactive potassium chloride ER 20 mEq tablet,extended release(part/ cryst) RxNorm: 607233 Tablet(s) PO TAKE ONE TABLET BY MOUTH EVERY DAY WHEN YOU TAKE LASIX (FUROSEMIDE ) 07/31/2013 12/01/2013 Inactive spironolactone 25 mg tablet RxNorm: 344623 Tablet(s) PO TAKE ONE TABLET BY MOUTH TWICE A DAY 07/31/2013 06/29/2014 Inactive Lasix 20 mg tablet RxNorm: 840880 Tablet(s) PO TAKE ONE TABLET BY MOUTH EVERY DAY NEEDED FOR SWELLING. TAKE POTASSIUM WITH EACH DOSE 08/201312/01/2013 Inactive Vitamin B-12 1,000 mcg/mL injection solution RxNorm: 018747 Milliliter(s) Inj 07/28/2013 07/28/2013 Inactive Synthroid 50 mcg tablet RxNorm: 607695 Tablet(s) PO TAKE ONE TABLET BY MOUTH EVERY DAY. PATIENT DUE FOR TSH LEVEL LAB 06/30/2013 06/29/2013 Inactive Synthroid 50 mcg tablet RxNorm: 740288 Tablet(s) PO TAKE ONE TABLET BY MOUTH EVERY DAY. PATIENT DUE FOR TSH LEVEL LAB 06/30/2013 10/30/2013 Inactive potassium chloride ER 20 mEq tablet,extended release(part/ cryst) RxNorm: 100662 Tablet(s) PO TAKE ONE TABLET BY MOUTH EVERY DAY WHEN YOU TAKE LASIX (FUROSEMIDE ) 06/23/2013 07/30/2013 Inactive Lasix 20 mg tablet RxNorm: 859702 Tablet(s) PO TAKE ONE TABLET BY MOUTH EVERY DAY NEEDED FOR SWELLING. TAKE POTASSIUM WITH EACH DOSE 07/30/2013 Inactive amlodipine 5 mg tablet RxNorm: 455405 Tablet(s) PO TAKE ONE TABLET BY MOUTH TWICE A DAY 06/17/2013 04/01/2014 Inactive metformin ER 500 mg tablet,extended release 24 hr RxNorm: 291176 Tablet(s) PO TAKE TWO TABLETS BY MOUTH TWICE A DAY 05/26/2013 06/04/2014 Inactive metformin ER 500 mg tablet,extended release 24 hr RxNorm: 179559 Tablet(s) PO TAKE TWO TABLETS BY MOUTH TWICE A DAY 05/26/2013 05/25/2013 Inactive Vitamin B-12 1,000 mcg/mL injection solution RxNorm: 763683 1 Milliliter(s) Inj 05/21/2013 05/21/2013 Inactive Vitamin B-12 1,000 mcg/mL Injection RxNorm: 535036 Milliliter(s) Inj 04/23/2013 04/23/2013 Inactive Influenza Virus Vaccine 0.5 mL RxNorm: IM 04/23/2013 04/23/2013 Inactive Synthroid 50 mcg tablet RxNorm: 945659 Tablet(s) PO TAKE ONE TABLET BY MOUTH EVERY DAY. PATIENT DUE FOR TSH LEVEL LAB 04/17/2013 06/29/2013 Inactive Lasix 20 mg tablet RxNorm: 722362 Tablet(s) PO TAKE ONE TABLET BY MOUTH EVERY DAY NEEDED FOR SWELLING. TAKE POTASSIUM WITH EACH DOSE 06/22/2013 Inactive potassium chloride ER 20 mEq tablet,extended release(part/ cryst) RxNorm: 4939351 Tablet(s) PO TAKE ONE TABLET BY MOUTH EVERY DAY WHEN YOU TAKE LASIX (FUROSEMIDE ) 04/17/2013 06/22/2013 Inactive simvastatin 20 mg tablet RxNorm: 099345 Tablet(s) PO TAKE ONE TABLET BY MOUTH AT BEDTIME 04/10/2013 10/09/2013 Inactive Vitamin B-12 1,000 mcg/mL Injection RxNorm: 707161 1 Milliliter(s) Inj 03/24/2013 03/24/2013 Inactive Lopressor 100 mg tablet RxNorm: 121666 Tablet(s) PO TAKE ONE TABLET BY MOUTH EVERY DAY 03/18/2013 09/14/2013 Inactive cyanocobalamin (vitamin B-12) 1,000 mcg/mL Injection RxNorm: 853932 Milliliter(s) Inj 02/20/2013 02/20/2013 Inactive Tricor 145 mg tablet RxNorm: 995413 Tablet(s) PO TAKE ONE TABLET BY MOUTH EVERY DAY 02/14/2013 02/15/2014 Inactive Vitamin B-12 1,000 mcg/mL Injection RxNorm: 988334 1 Milliliter(s) Inj 01/22/2013 01/22/2013 Inactive potassium chloride ER 20 mEq tablet,extended release(part/ cryst) RxNorm: 9016260 1 Tablet(s) PO QDAY PRN take when taking prn lasix 201204/16/2013 Inactive Lasix 20 mg tablet RxNorm: 715365 1 Tablet(s) PO QDAY PRN daily prn swelling - to take kcl with lasix 01/22/20132012 Inactive cyanocobalamin (vitamin B-12) 1,000 mcg/mL Injection RxNorm: 390901 Milliliter(s) Inj 12/19/2012 12/19/2012 Inactive cyanocobalamin (vitamin B-12) 1,000 mcg/mL Injection RxNorm: 964550 Milliliter(s) Inj 11/20/2012 11/20/2012 Inactive Diflucan 150 mg tablet RxNorm: 649557 1 Tablet(s) PO daily 11/21/2012 Inactive Synthroid 50 mcg tablet RxNorm: 544213 Tablet(s) PO TAKE ONE TABLET BY MOUTH EVERY DAY. PATIENT DUE FOR TSH LEVEL LAB 11/18/2012 04/16/2013 Inactive Keflex 500 mg capsule RxNorm: 268463 1 Capsule(s) PO TID 201211/19/2012 Inactive Keflex 500 mg capsule RxNorm: 173281 1 Capsule(s) PO TID 201211/12/2012 Inactive Byetta 10 mcg/0.04 mL per dose Sub-Q Pen Injector RxNorm: 326603 Pen Injector SQ DIAL AND INJECT SUBCUTANEOUSLY 10 MCG TWICE DAILY WITHIN 60 MINUTES BEFORE MORNING AND EVENING MEALS. DO NOT ADMINISTER AFTER A MEAL. 04/03/2014 Inactive cyanocobalamin (vitamin B-12) 1,000 mcg/mL Injection RxNorm: 188916 1 Milliliter(s ) Inj 10/23/2012 10/23/2012 Inactive Lortab 5 mg-500 mg tablet RxNorm: 249415 1-2 Tablet(s) PO Q4 PRN q 4-6hrs prn pain 10/02/2012 12/22/2013 Inactive cyanocobalamin (vitamin B-12) 1,000 mcg/mL Injection RxNorm: 529166 Milliliter(s) Inj 09/16/2012 09/16/2012 Inactive Vitamin B-12 1,000 mcg/mL Injection RxNorm: 765857 1 Milliliter(s) Inj 08/15/2012 08/15/2012 Inactive glipizide 10 mg tablet RxNorm: 157745 Tablet(s) PO TAKE ONE TABLET BY MOUTH TWICE A DAY 08/12/2012 08/14/2013 Inactive Tenex 1 mg tablet RxNorm: 026036 Tablet(s) PO TAKE ONE TABLET BY MOUTH EVERY DAY 08/12/2012 08/04/2013 Inactive Kenalog 40 mg/mL Susp for Injection RxNorm: 0365675 1 Milliliter(s) Inj 08/06/2012 01/22/2013 Inactive spironolactone 25 mg tablet RxNorm: 555351 Tablet(s) PO TAKE ONE TABLET BY MOUTH TWICE A DAY 07/29/2012 07/30/2013 Inactive cefdinir 300 mg capsule RxNorm: 385594 1 Capsule(s) PO BID 08/01/2012 Inactive cefdinir 300 mg capsule RxNorm: 981737 1 Capsule(s) PO BID 07/25/2012 Inactive Vitamin B-12 1,000 mcg/mL Injection RxNorm: 392659 1 Milliliter(s) Inj 07/19/2012 07/19/2012 Inactive simvastatin 20 mg tablet RxNorm: 967405 Tablet(s) PO TAKE ONE TABLET BY MOUTH AT BEDTIME 07/08/2012 04/09/2013 Inactive simvastatin 20 mg tablet RxNorm: 490434 Tablet(s) PO TAKE ONE TABLET BY MOUTH AT BEDTIME 07/08/2012 10/07/2015 Inactive Synthroid 50 mcg tablet RxNorm: 002501 1 Tablet(s) PO daily 12/201110/31/2012 Inactive Please advise patient due for TSH level. amlodipine 5 mg tablet RxNorm: 930303 1 Tablet(s) PO BID 201112/15/2012 Inactive amlodipine 5 mg tablet RxNorm: 266150 1 Tablet(s) PO BID 201106/18/2012 Inactive Vitamin B-12 1,000 mcg/mL Injection RxNorm: 469298 Milliliter(s) Inj 06/19/2012 06/19/2012 Inactive Lopressor 100 mg tablet RxNorm: 075833 Tablet(s) PO 06/17/2012 03/17/2013 Inactive TAKE ONE TABLET BY MOUTH EVERY DAY Vitamin B-12 1,000 mcg/mL Injection RxNorm: 752858 Milliliter(s) Inj 05/22/2012 05/22/2012 Inactive Synthroid 50 mcg tablet RxNorm: 221953 1 Tablet(s) PO daily 06/11/2012 Inactive Please advise patient due for TSH level. Diflucan 150 mg tablet RxNorm: 479569 1 Tablet(s) PO daily 11/18/2012 Inactive metformin ER 500 mg tablet,extended release 24 hr RxNorm: 232297 2 Tablet(s) PO BID 04/25/2012 05/19/2013 Inactive Vitamin B-12 1,000 mcg/mL Injection RxNorm: 581306 Milliliter(s) Inj 04/22/2012 04/22/2012 Inactive Vitamin B-12 1,000 mcg/mL Injection RxNorm: 622937 Milliliter(s) Inj 03/19/2012 03/19/2012 Inactive Vitamin B-12 1,000 mcg/mL Injection RxNorm: 690158 Milliliter(s) Inj 02/15/2012 02/15/2012 Inactive Tricor 145 mg tablet RxNorm: 084670 1 Tablet(s) PO daily 201102/13/2013 Inactive Vitamin B-12 1,000 mcg/mL Injection RxNorm: 963238 Milliliter(s) Inj 01/18/2012 01/18/2012 Inactive Kenalog 40 mg/mL Susp for Injection RxNorm: 3020403 1 Milliliter(s) Inj 12/28/2011 12/28/2011 Inactive Vitamin B-12 1,000 mcg/mL Injection RxNorm: 438562 Milliliter(s) Inj 12/20/2011 12/20/2011 Inactive omeprazole 20 mg Cap, delayed release RxNorm: 580308 1 Capsule(s) PO daily 12/07/2011 11/30/2012 Inactive may take bid if nec cyanocobalamin (vitamin B-12) 1,000 mcg/mL Injection RxNorm: 597997 1 Milliliter(s ) Inj 11/07/2011 11/07/2011 Inactive cyanocobalamin (vitamin B-12) 1,000 mcg/mL Injection RxNorm: 735870 1 Milliliter(s ) Inj 10/03/2011 10/03/2011 Inactive Synthroid 50 mcg tablet RxNorm: 003124 1 Tablet(s) PO daily 03/08/2012 Inactive Byetta 10 mcg/0.04 mL per dose Sub-Q Pen Injector RxNorm: 544169 10 Microgram(s) SQ BID 08/29/2011 09/21/2012 Inactive metformin ER 500 mg tablet,extended release 24 hr RxNorm: 543249 2 Tablet(s) PO BID 08/15/2011 02/10/2012 Inactive cyanocobalamin (vitamin B-12) 1,000 mcg/mL Injection RxNorm: 508602 1 Milliliter(s ) Inj 07/28/2011 07/28/2011 Inactive NovoFine 30 Needle RxNorm: 1 Miscellaneous BID 07/28/2011 03/18/2013 Inactive OneTouch Ultra Test strips RxNorm: 1 Miscellaneous BID 201003/18/2013 Inactive guanfacine 1 mg Tab RxNorm: 066920 1 Tablet(s) PO daily 201007/10/2012 Inactive glipizide 10 mg tablet RxNorm: 319567 1 Tablet(s) PO BID 201008/09/2012 Inactive Tenex 1 mg tablet RxNorm: 672468 1 Tablet(s) PO daily 201008/09/2012 Inactive lisinopril 20 mg tablet RxNorm: 244919 1 Tablet(s) PO daily pt 07/04/2011 04/21/2012 Inactive pt may have #90 with year if insurance pays spironolactone 25 mg tablet RxNorm: 966615 1 Tablet(s) PO BID 07/03/2011 07/26/2012 Inactive simvastatin 20 mg Tab RxNorm: 154159 1 Tablet(s) PO QHS 201006/28/2011 Inactive cyanocobalamin (vitamin B-12) 1,000 mcg/mL Injection RxNorm: 985119 Milliliter(s) Inj 06/29/2011 06/29/2011 Inactive simvastatin 20 mg tablet RxNorm: 646552 1 Tablet(s) PO QHS 07/201006/22/2012 Inactive Lopressor 100 mg tablet RxNorm: 830505 1 Tablet(s) PO daily 06/16/2012 Inactive ketorolac 60 mg/2 mL IM RxNorm: 119305 Milliliter(s) IM 201005/23/2011 Inactive cyanocobalamin (vitamin B-12) 1,000 mcg/mL Injection RxNorm: 643149 Milliliter(s) Inj 05/23/2011 05/23/2011 Inactive Influenza Virus Vaccine 0.5 mL RxNorm: IM 04/26/2011 04/26/2011 Inactive Vitamin B-12 1,000 mcg/mL Injection RxNorm: 089789 Milliliter(s) Inj 04/26/2011 04/26/2011 Inactive Lomotil 2.5 mg-0.025 mg tablet RxNorm: 7939588 1 Tablet(s) PO Q8 PRN 04/26/2011 11/27/2013 Inactive amiodarone 200 mg tablet RxNorm: 315461 1 Tablet(s) PO daily No Start Date Active atorvastatin 10 mg tablet RxNorm: 816349 1 Tablet(s) PO QHS No Start Date Active metoprolol succinate ER 100 mg tablet,extended release 24 hr RxNorm: 109049 1 Tablet(s) PO daily No Start Date Active warfarin 2 mg tablet RxNorm: 828762 1 Tablet(s) PO daily No Start Date Active clopidogrel 75 mg tablet RxNorm: 272582 1 Tablet(s) PO daily No Start Date Active aspirin 81 mg Tab, Delayed Release RxNorm: 164155 1 Tablet(s) PO daily No Start Date Active Vitamin D 1,000 unit Tab RxNorm: 459254 1 Tablet(s) PO daily No Start Date Active Tricor 145 mg Tab RxNorm: 610075 1 Tablet(s) PO daily No Start Date 02/07/2012 Inactive Synthroid 50 mcg Tab RxNorm: 069958 1 Tablet(s) PO daily No Start Date 09/10/2011 Inactive lisinopril 20 mg tablet RxNorm: 010130 1 Tablet(s) PO daily No Start Date 06/18/2012 Inactive Lortab 5 mg-500 mg tablet RxNorm: 057206 1 Tablet(s) PO Q4 PRN q 4hrs prn pain No Start Date 10/01/2012 Inactive Tenex 1 mg Tab RxNorm : 271308 1 Tablet(s) PO daily No Start Date 07/16/2011 Inactive lisinopril 40 mg tablet RxNorm: 605921 Tablet(s) PO No Start Date 05/21/2012 Inactive Voltaren 1 % Topical Gel RxNorm: 674341 TOP as directed No Start Date 11/29/2015 Inactive iron 325 mg (65 mg iron) Tab RxNorm: 108217 1 Tablet(s) PO daily No Start Date 02/22/2015 Inactive Zithromax Z-J Luis 250 mg tablet RxNorm: 228715 Tablet(s) PO UD No Start Date 01/22/2013 Inactive Byetta 10 mcg/0.04 mL per dose Sub-Q Pen Injector RxNorm: 981606 Milliliter(s) SQ BID No Start Date 08/28/2011 Inactive cyanocobalamin (vitamin B-12) 1,000 mcg/mL Injection RxNorm: 852498 1 Milliliter(s ) Inj month No Start Date 11/30/2015 Inactive Tessalon 200 mg capsule RxNorm: 261963 1 Capsule(s) PO TID PRN No Start Date 01/21/2013 Inactive Victoza 2-J Luis 0.6 mg/0.1 mL (18 mg/3 mL) subcutaneous pen injector RxNorm: 533133 1.2 Milligram(s) SQ daily No Start Date Inactive simvastatin 20 mg Tab RxNorm: 963934 1 Tablet(s) PO QHS No Start Date 06/28/2011 Inactive spironolactone 25 mg Tab RxNorm: 057328 1 Tablet(s) PO BID No Start Date 07/02/2011 Inactive Diflucan 150 mg tablet RxNorm: 936923 1 Tablet(s) PO daily No Start Date 04/24/2012 Inactive guanfacine 1 mg Tab RxNorm: 270653 1 Tablet(s) PO daily No Start Date 07/16/2011 Inactive Ativan 1 mg Tab RxNorm : 604627 1/2-1 Tablet(s) PO Q6 PRN 1/2 - 1 tab q 6 hours if needed for anxiety No Start Date 2013 Inactive metformin ER 500 mg 24 hr Tab RxNorm: 377375 2 Tablet(s) PO BID No Start Date 08/14/2011 Inactive Lopressor 100 mg Tab RxNorm: 103640 1 Tablet(s) PO daily No Start Date 06/26/2011 Inactive glipizide 10 mg Tab RxNorm: 315792 1 Tablet(s) PO BID No Start Date 07/16/2011 Inactive KCL 10 meq RxNorm: PO as directed daily when taking lasix No Start Date 01/22/2013 Inactive lisinopril 20 mg Tab RxNorm: 825909 1 Tablet(s) PO daily No Start Date 07/03/2011 Inactive One Touch Ultra Test Strips RxNorm: 1 Miscellaneous BID No Start Date 07/27/2011 Inactive omeprazole 20 mg Cap, delayed release RxNorm: 873260 1 Capsule(s) PO BID No Start Date 12/06/2011 Inactive Lasix 20 mg tablet RxNorm: 450891 Tablet(s) PO as directed daily prn swelling - to take kcl with lasix No Start Date 01/21 Inactive niacin 500 mg Tab RxNorm: 845094 1 Tablet(s) PO QHS No Start Date 04/03/2014 Inactive Medication Administered Medication Codes Instructions Start Date Status cyanocobalamin (vit B-12) 1,000 mcg/mL injection solution RxNorm: 592008 1Milliliter 08/21/2017 No longer Active cyanocobalamin (vit B-12) 1,000 mcg/mL injection solution RxNorm: 288553 1Milliliter 07/18/2017 No longer Active cyanocobalamin (vit B-12) 1,000 mcg/mL injection solution RxNorm: 839998 1Milliliter 06/18/2017 No longer Active Kenalog 40 mg/mL suspension for injection RxNorm: 1280684 1Milliliter 06/18/2017 No longer Active cyanocobalamin (vit B-12) 1,000 mcg/mL injection solution RxNorm: 678365 1Milliliter 05/09/2017 No longer Active cyanocobalamin (vit B-12) 1,000 mcg/mL injection solution RxNorm: 909286 1Milliliter 04/04/2017 No longer Active Kenalog 40 mg/mL suspension for injection RxNorm: 4056944 1Milliliter 02/23/2017 No longer Active cyanocobalamin (vit B-12) 1,000 mcg/mL injection solution RxNorm: 506569 Milliliter 01/23/2017 No longer Active cyanocobalamin (vit B-12) 1,000 mcg/mL injection solution RxNorm: 250425 1Milliliter 11/14/2016 No longer Active Kenalog 40 mg/mL suspension for injection RxNorm: 7969302 1Milliliter 09/07/2016 No longer Active cyanocobalamin (vit B-12) 1,000 mcg/mL injection solution RxNorm: 606246 1Milliliter 08/29/2016 No longer Active cyanocobalamin (vit B-12) 1,000 mcg/mL injection solution RxNorm: 890431 Milliliter 06/12/2016 No longer Active ceftriaxone 500 mg solution for injection RxNorm: 7891831 2Milliliter 05/04/2016 No longer Active cyanocobalamin (vit B-12) 1,000 mcg/mL injection solution RxNorm: 348520 Milliliter 05/04/2016 No longer Active cyanocobalamin (vit B-12) 1,000 mcg/mL injection solution RxNorm: 029244 Milliliter 03/17/2016 No longer Active cyanocobalamin (vit B-12) 1,000 mcg/mL injection solution RxNorm: 103261 1Milliliter 02/15/2016 No longer Active cyanocobalamin (vit B-12) 1,000 mcg/mL injection solution RxNorm: 223082 Milliliter 01/19/2016 No longer Active cyanocobalamin (vit B-12) 1,000 mcg/mL injection solution RxNorm: 006428 1Milliliter 12/07/2015 No longer Active cyanocobalamin (vit B-12) 1,000 mcg/mL injection kit RxNorm : 642420 kit 09/06/2015 No longer Active ceftriaxone 500 mg solution for injection RxNorm: 4840353 09/06/2015 No longer Active ceftriaxone 500 mg solution for injection RxNorm: 3022371 07/05/2015 No longer Active Kenalog 40 mg/mL suspension for injection RxNorm: 8731314 Milliliter 07/05/2015 No longer Active cyanocobalamin (vit B-12) 1,000 mcg/mL injection solution RxNorm: 760288 Milliliter 06/28/2015 No longer Active cyanocobalamin (vit B-12) 1,000 mcg/mL injection solution RxNorm: 789735 Milliliter 05/13/2015 No longer Active cyanocobalamin (vit B-12) 1,000 mcg/mL injection solution RxNorm: 239058 Milliliter 02/23/2015 No longer Active cyanocobalamin (vit B-12) 1,000 mcg/mL injection solution RxNorm: 865948 Milliliter 01/08/2015 No longer Active cyanocobalamin (vit B-12) 1,000 mcg/mL injection solution RxNorm: 469133 Milliliter 12/08/2014 No longer Active cyanocobalamin (vit B-12) 1,000 mcg/mL injection solution RxNorm: 485839 Milliliter 10/26/2014 No longer Active cyanocobalamin (vit B-12) 1,000 mcg/mL injection solution RxNorm: 245207 Milliliter 09/24/2014 No longer Active cyanocobalamin (vit B-12) 1,000 mcg/mL injection solution RxNorm: 763070 Milliliter 08/24/2014 No longer Active cyanocobalamin (vit B-12) 1,000 mcg/mL injection solution RxNorm: 003840 1Milliliter 06/01/2014 No longer Active Kenalog 40 mg/mL suspension for injection RxNorm: 2036868 1Milliliter 05/11/2014 No longer Active cyanocobalamin (vit B-12) 1,000 mcg/mL injection kit RxNorm : 845958 Milliliter 04/27/2014 No longer Active cyanocobalamin (vit B-12) 1,000 mcg/mL injection kit RxNorm : 854048 1Milliliter 03/24/2014 No longer Active cyanocobalamin (vit B-12) 1,000 mcg/mL injection solution RxNorm: 323353 1Milliliter 03/24/2014 No longer Active cyanocobalamin (vit B-12) 1,000 mcg/mL injection solution RxNorm: 260099 1Milliliter 02/24/2014 No longer Active cyanocobalamin (vit B-12) 1,000 mcg/mL injection solution RxNorm: 311960 Milliliter 01/09/2014 No longer Active cyanocobalamin (vit B-12) 1,000 mcg/mL injection solution RxNorm: 923979 1Milliliter 11/27/2013 No longer Active Vitamin B-12 1,000 mcg/mL injection solution RxNorm: 800855 1Milliliter 09/18/2013 No longer Active Vitamin B-12 1,000 mcg/mL injection solution RxNorm: 942583 1Milliliter 08/22/2013 No longer Active Vitamin B-12 1,000 mcg/mL injection solution RxNorm: 884625 Milliliter 07/28/2013 No longer Active Vitamin B-12 1,000 mcg/mL injection solution RxNorm: 922160 1Milliliter 05/21/2013 No longer Active Influenza Virus Vaccine 0.5 mL RxNorm: 04/23/2013 No longer Active Vitamin B-12 1,000 mcg/mL Injection RxNorm: 721855 Milliliter 04/23/2013 No longer Active Vitamin B-12 1,000 mcg/mL Injection RxNorm: 710505 1Milliliter 03/24/2013 No longer Active cyanocobalamin (vitamin B-12) 1,000 mcg/mL Injection RxNorm : 915624 Milliliter 02/20/2013 No longer Active Vitamin B-12 1,000 mcg/mL Injection RxNorm: 859917 1Milliliter 01/22/2013 No longer Active cyanocobalamin (vitamin B-12) 1,000 mcg/mL Injection RxNorm : 748381 Milliliter 12/19/2012 No longer Active cyanocobalamin (vitamin B-12) 1,000 mcg/mL Injection RxNorm : 565242 Milliliter 11/20/2012 No longer Active cyanocobalamin (vitamin B-12) 1,000 mcg/mL Injection RxNorm : 842511 1Milliliter 10/23/2012 No longer Active cyanocobalamin (vitamin B-12) 1,000 mcg/mL Injection RxNorm : 966538 Milliliter 09/16/2012 No longer Active Vitamin B-12 1,000 mcg/mL Injection RxNorm: 072019 1Milliliter 08/15/2012 No longer Active Vitamin B-12 1,000 mcg/mL Injection RxNorm: 755795 1Milliliter 07/19/2012 No longer Active Vitamin B-12 1,000 mcg/mL Injection RxNorm: 113515 Milliliter 06/19/2012 No longer Active Vitamin B-12 1,000 mcg/mL Injection RxNorm: 772429 Milliliter 05/22/2012 No longer Active Vitamin B-12 1,000 mcg/mL Injection RxNorm: 369679 Milliliter 04/22/2012 No longer Active Vitamin B-12 1,000 mcg/mL Injection RxNorm: 845455 Milliliter 03/19/2012 No longer Active Vitamin B-12 1,000 mcg/mL Injection RxNorm: 930925 Milliliter 02/15/2012 No longer Active Vitamin B-12 1,000 mcg/mL Injection RxNorm: 834377 Milliliter 01/18/2012 No longer Active Kenalog 40 mg/mL Susp for Injection RxNorm: 9813224 1Milliliter 12/28/2011 No longer Active Vitamin B-12 1,000 mcg/mL Injection RxNorm: 840864 Milliliter 12/20/2011 No longer Active cyanocobalamin (vitamin B-12) 1,000 mcg/mL Injection RxNorm : 937813 1Milliliter 11/07/2011 No longer Active cyanocobalamin (vitamin B-12) 1,000 mcg/mL Injection RxNorm : 213455 1Milliliter 10/03/2011 No longer Active cyanocobalamin (vitamin B-12) 1,000 mcg/mL Injection RxNorm : 620964 1Milliliter 07/28/2011 No longer Active cyanocobalamin (vitamin B-12) 1,000 mcg/mL Injection RxNorm : 441857 Milliliter 06/29/2011 No longer Active ketorolac 60 mg/2 mL IM RxNorm: 497622 Milliliter 05/23/2011 No longer Active cyanocobalamin (vitamin B-12) 1,000 mcg/mL Injection RxNorm : 130202 Milliliter 05/23/2011 No longer Active Influenza Virus Vaccine 0.5 mL RxNorm: 04/26/2011 No longer Active Vitamin B-12 1,000 mcg/mL Injection RxNorm: 791738 Milliliter 04/26/2011 No longer Active Immunizations Vaccine [...] 28.4 pg 06/07/2017 Cbc With Differential Ord2 [place]% 12.6 % 06/07/2017 Cbc With Differential Ord2 [...] 1.23 K/ul 06/07/2017 Cbc With Differential Ord2 [place] ABS# 0.7 K/ul 06/07/2017 Cbc With Differential Ord2 Eos ABS# 0.2 K/ul 06/07/2017 Cbc With Differential Ord2 Baso ABS# 0.0 K/ul 06/07/2017 Culture Urine [id number] URINE CULTURE SEE NOTES 05/08/2016 Culture Urine [id number] Continued Results 05/08/2016 Urine Culture Ucult Complete >100,000 col/ml aerobic growth sent to ref lab 05/05/2016 %SAT/TIBC [id number] TIBC 439 UG/DL 07/28/2013 %SAT/TIBC [id number] % SATURAT 10 % 07/28/2013 %SAT/TIBC [id number] UIBC 395 MCG/DL 07/28/2013 CBC [id number] WBC 6.2 10e9/L 07/28/2013 CBC 8252383 RBC 3.95 10e12/L 07/28/2013 CBC 9129187 HGB 11.2 g/dL 07/28/2013 CBC 8300694 HCT DET 34.2 % 07/28/2013 CBC 8097430 MCV 86.6 fL 07/28/2013 CBC 6583949 MCH 28.4 pg 07/28/2013 CBC 3481348 MCHC 32.7 g/dL 07/28/2013 CBC 4996969 PLT 231 10e9/L 07/28/2013 CBC 6241288 MPV 10.9 fL 07/28/2013 CBC 1183466 JAZMYN % 61.0 % 07/28/2013 CBC 1393237 LY % 27.8 % 07/28/2013 CBC 9893685 MON % 8.0 % 07/28/2013 CBC 0555937 EOS % 2.4 % 07/28/2013 CBC 4528438 BASO % 0.8 % 07/28/2013 CBC 6455384 RDW 14.0 % 07/28/2013 CBC 0813687 ABS JAZMYN 3.78 10e9/L 07/28/2013 CBC 0262754 ABS LYMPH 1.72 10e9/L 07/28/2013 CBC 0098018 ABS MONO 0.50 10e9/L 07/28/2013 CBC 1419036 ABS EOS 0.15 10e9/L 07/28/2013 CBC 9558457 ABS BASO 0.05 10e9/L 07/28/2013 CBC 0457521 RDW-SD 42.9 fL 07/28/2013 TSH 1186023 TSH 2.104 uIU/ML 07/28/2013 IRON TEST [id number] IRON TEST 44 UG/DL 07/28/2013 Review of Systems System Result Effective [...] tenderness 06/16/2013 None Full Exam - General 1995 [...] time 06/16/2013 None Full Exam - General 1995 [...] nourished 04/22/2012 None Full Exam - General 1995 Constitutional general appearance Overall: well developed 04/22/2012 None Full Exam - General 1995 Constitutional [...] Procedure Codes Date THER/PROPH/DIAG INJ SC/IM CPT-4: 00394 08/21/2017 VITAMIN B12 INJECTION CPT-4: J3420 08/21/2017 THER/PROPH/DIAG INJ SC/IM CPT-4: 37946 07/18/2017 VITAMIN B12 INJECTION CPT-4: J3420 07/18/2017 TRIAMCINOLONE ACET INJ NOS CPT-4: J3301 06/18/2017 THER/PROPH/DIAG INJ SC/IM CPT-4: 25742 06/18/2017 VITAMIN B12 INJECTION CPT-4: J3420 06/18/2017 PRESCRIP TRANSMIT VIA ERX SY CPT-4: G8553 06/18/2017 THER/PROPH/DIAG INJ SC/IM CPT-4: 73144 05/09/2017 VITAMIN B12 INJECTION CPT-4: J3420 05/09/2017 ADMIN INFLUENZA VIRUS VAC CPT-4: G0008 04/25/2017 FLU VAC NO PRSV 4 JINNY 3 YRS+ CPT-4: 80099 04/25/2017 THER/PROPH/DIAG INJ SC/IM CPT-4: 15255 04/04/2017 VITAMIN B12 INJECTION CPT-4: J3420 04/04/2017 TRIAMCINOLONE ACET INJ NOS CPT-4: J3301 02/23/2017 VITAMIN B12 INJECTION CPT-4: J3420 02/23/2017 THER/PROPH/DIAG INJ SC/IM CPT-4: 82853 01/23/2017 VITAMIN B12 INJECTION CPT-4: J3420 01/23/2017 VITAMIN B12 INJECTION CPT-4: J3420 12/26/2016 THER/PROPH/DIAG INJ SC/IM CPT-4: 89394 12/26/2016 THER/PROPH/DIAG INJ SC/IM CPT-4: 06993 11/14/2016 VITAMIN B12 INJECTION CPT-4: J3420 11/14/2016 THER/PROPH/DIAG INJ SC/IM CPT-4: 34164 09/07/2016 TRIAMCINOLONE ACET INJ NOS CPT-4: J3301 09/07/2016 PRESCRIP TRANSMIT VIA ERX SY CPT-4: G8553 09/07/2016 THER/PROPH/DIAG INJ SC/IM CPT-4: 70966 08/29/2016 VITAMIN B12 INJECTION CPT-4: J3420 08/29/2016 PRESCRIP TRANSMIT VIA ERX SY CPT-4: G8553 08/29/2016 THER/PROPH/DIAG INJ SC/IM CPT-4: 45068 06/12/2016 VITAMIN B12 INJECTION CPT-4: J3420 06/12/2016 PRESCRIP TRANSMIT VIA ERX SY CPT-4: G8553 06/12/2016 URINALYSIS NONAUTO W/O SCOPE CPT-4: 93411 05/04/2016 ROCEPHIN, PER 250 MG CPT-4: J0696 05/04/2016 THER/PROPH/DIAG INJ SC/IM CPT-4: 64101 05/04/2016 VITAMIN B12 INJECTION CPT-4: J3420 05/04/2016 PRESCRIP TRANSMIT VIA ERX SY CPT-4: G8553 05/04/2016 PRESCRIP TRANSMIT VIA ERX SY CPT-4: G8553 03/30/2016 THER/PROPH/DIAG INJ SC/IM CPT-4: 71346 03/17/2016 VITAMIN B12 INJECTION CPT-4: J3420 03/17/2016 THER/PROPH/DIAG INJ SC/IM CPT-4: 29200 02/15/2016 VITAMIN B12 INJECTION CPT-4: J3420 02/15/2016 THER/PROPH/DIAG INJ SC/IM CPT-4: 70687 01/19/2016 VITAMIN B12 INJECTION CPT-4: J3420 01/19/2016 THER/PROPH/DIAG INJ SC/IM CPT-4: 60054 12/07/2015 VITAMIN B12 INJECTION CPT-4: J3420 12/07/2015 ROCEPHIN, PER 250 MG CPT-4: J0696 09/06/2015 THER/PROPH/DIAG INJ SC/IM CPT-4: 70091 09/06/2015 VITAMIN B12 INJECTION CPT-4: J3420 09/06/2015 PRESCRIP TRANSMIT VIA ERX SY CPT-4: G8553 09/06/2015 ROCEPHIN, PER 250 MG CPT-4: J0696 07/05/2015 TRIAMCINOLONE ACET INJ NOS CPT-4: J3301 07/05/2015 PRESCRIP TRANSMIT VIA ERX SY CPT-4: G8553 07/05/2015 THER/PROPH/DIAG INJ SC/IM CPT-4: 18411 06/28/2015 VITAMIN B12 INJECTION CPT-4: J3420 06/28/2015 THER/PROPH/DIAG INJ SC/IM CPT-4: 18628 05/13/2015 VITAMIN B12 INJECTION CPT-4: J3420 05/13/2015 THER/PROPH/DIAG INJ SC/IM CPT-4: 24591 02/23/2015 VITAMIN B12 INJECTION CPT-4: J3420 02/23/2015 THER/PROPH/DIAG INJ SC/IM CPT-4: 60726 01/08/2015 VITAMIN B12 INJECTION CPT-4: J3420 01/08/2015 THER/PROPH/DIAG INJ SC/IM CPT-4: 48708 12/08/2014 VITAMIN B12 INJECTION CPT-4: J3420 12/08/2014 THER/PROPH/DIAG INJ SC/IM CPT-4: 97320 10/26/2014 VITAMIN B12 INJECTION CPT-4: J3420 10/26/2014 VITAMIN B12 INJECTION CPT-4: J3420 09/24/2014 THER/PROPH/DIAG INJ SC/IM CPT-4: 41167 09/24/2014 THER/PROPH/DIAG INJ SC/IM CPT-4: 34766 08/24/2014 VITAMIN B12 INJECTION CPT-4: J3420 08/24/2014 THER/PROPH/DIAG INJ SC/IM CPT-4: 20621 07/08/2014 VITAMIN B12 INJECTION CPT-4: J3420 07/08/2014 THER/PROPH/DIAG INJ SC/IM CPT-4: 15599 06/01/2014 VITAMIN B12 INJECTION CPT-4: J3420 06/01/2014 TRIAMCINOLONE ACET INJ NOS CPT-4: J3301 05/11/2014 VITAMIN B12 INJECTION CPT-4: J3420 04/27/2014 THER/PROPH/DIAG INJ SC/IM CPT-4: 47335 04/27/2014 FLU VAC NO PRSV 4 JINNY 3 YRS+ CPT-4: 86655 04/03/2014 ADMIN INFLUENZA VIRUS VAC Assigned to/SantosJuliana CPT-4: [id number] 04/03/2014 THER/PROPH/DIAG INJ SC/IM CPT-4: 75190 03/24/2014 THER/PROPH/DIAG INJ SC/IM CPT-4: 04767 02/24/2014 THER/PROPH/DIAG INJ SC/IM CPT-4: 87419 01/09/2014 THER/PROPH/DIAG INJ SC/IM CPT-4: 23572 11/27/2013 THER/PROPH/DIAG INJ SC/IM CPT-4: 14468 09/18/2013 VITAMIN B12 INJECTION CPT-4: J3420 09/18/2013 THER/PROPH/DIAG INJ SC/IM CPT-4: 31828 08/22/2013 VITAMIN B12 INJECTION CPT-4: J3420 08/22/2013 ROUTINE VENIPUNCTURE CPT-4: 28296 07/28/2013 VITAMIN B12 INJECTION CPT-4: J3420 07/28/2013 THER/PROPH/DIAG INJ SC/IM CPT-4: 55220 07/28/2013 THER/PROPH/DIAG INJ SC/IM CPT-4: 96145 06/16/2013 VITAMIN B12 INJECTION CPT-4: J3420 06/16/2013 THER/PROPH/DIAG INJ SC/IM CPT-4: 09327 05/21/2013 VITAMIN B12 INJECTION CPT-4: J3420 05/21/2013 ADMIN INFLUENZA VIRUS VAC CPT-4: G0008 04/23/2013 FLULAVAL VACC, 3 YRS & >, IM CPT-4: Q2036 04/23/2013 VITAMIN B12 INJECTION CPT-4: J3420 04/23/2013 THER/PROPH/DIAG INJ SC/IM CPT-4: 80835 04/23/2013 THER/PROPH/DIAG INJ SC/IM CPT-4: 99088 03/24/2013 VITAMIN B12 INJECTION CPT-4: J3420 03/24/2013 THER/PROPH/DIAG INJ SC/IM CPT-4: 98215 02/20/2013 VITAMIN B12 INJECTION CPT-4: J3420 02/20/2013 VITAMIN B12 INJECTION CPT-4: J3420 01/22/2013 PRESCRIP TRANSMIT VIA ERX SY CPT-4: G8553 01/22/2013 TRIAMCINOLONE ACET INJ NOS CPT-4: J3301 12/19/2012 VITAMIN B12 INJECTION CPT-4: J3420 12/19/2012 THER/PROPH/DIAG INJ SC/IM CPT-4: 89241 11/20/2012 VITAMIN B12 INJECTION CPT-4: J3420 11/20/2012 THER/PROPH/DIAG INJ SC/IM CPT-4: 64534 10/23/2012 VITAMIN B12 INJECTION CPT-4: J3420 10/23/2012 THER/PROPH/DIAG INJ SC/IM CPT-4: 42024 09/16/2012 VITAMIN B12 INJECTION CPT-4: J3420 09/16/2012 VITAMIN B12 INJECTION CPT-4: J3420 08/15/2012 THER/PROPH/DIAG INJ SC/IM CPT-4: 38111 08/15/2012 TRIAMCINOLONE ACET INJ NOS CPT-4: J3301 08/06/2012 THER/PROPH/DIAG INJ SC/IM CPT-4: 07590 08/06/2012 PRESCRIP TRANSMIT VIA ERX SY CPT-4: G8553 08/06/2012 VITAMIN B12 INJECTION CPT-4: J3420 07/19/2012 THER/PROPH/DIAG INJ SC/IM CPT-4: 45666 07/19/2012 DRAIN/INJECT JOINT/BURSA CPT-4: 63759 07/10/2012 THER/PROPH/DIAG INJ SC/IM CPT-4: 32284 06/19/2012 VITAMIN B12 INJECTION CPT-4: J3420 06/19/2012 VITAMIN B12 INJECTION CPT-4: J3420 05/22/2012 THER/PROPH/DIAG INJ SC/IM CPT-4: 00709 05/22/2012 ADMIN INFLUENZA VIRUS VAC CPT-4: G0008 04/22/2012 FLULAVAL VACC, 3 YRS & >, IM CPT-4: Q2036 04/22/2012 VITAMIN B12 INJECTION CPT-4: J3420 04/22/2012 VITAMIN B12 INJECTION CPT-4: J3420 03/19/2012 THER/PROPH/DIAG INJ SC/IM CPT-4: 49515 03/19/2012 VITAMIN B12 INJECTION CPT-4: J3420 02/15/2012 THER/PROPH/DIAG INJ SC/IM CPT-4: 23459 02/15/2012 THER/PROPH/DIAG INJ SC/IM CPT-4: 02033 01/18/2012 VITAMIN B12 INJECTION CPT-4: J3420 01/18/2012 TRIAMCINOLONE ACET INJ NOS CPT-4: J3301 12/28/2011 DRAIN/INJECT JOINT/BURSA CPT-4: 35762 12/28/2011 VITAMIN B12 INJECTION CPT-4: J3420 12/20/2011 THER/PROPH/DIAG INJ SC/IM CPT-4: 94424 12/20/2011 VITAMIN B12 INJECTION CPT-4: J3420 11/07/2011 THER/PROPH/DIAG INJ SC/IM CPT-4: 28866 11/07/2011 VITAMIN B12 INJECTION CPT-4: J3420 10/03/2011 THER/PROPH/DIAG INJ SC/IM CPT-4: 57001 10/03/2011 TRIAMCINOLONE ACET INJ NOS CPT-4: J3301 08/23/2011 DRAIN/INJECT JOINT/BURSA CPT-4: 80307 08/23/2011 THER/PROPH/DIAG INJ SC/IM CPT-4: 31211 08/23/2011 VITAMIN B12 INJECTION CPT-4: J3420 08/23/2011 VITAMIN B12 INJECTION CPT-4: J3420 07/28/2011 THER/PROPH/DIAG INJ SC/IM CPT-4: 93696 07/28/2011 VITAMIN B12 INJECTION CPT-4: J3420 06/29/2011 THER/PROPH/DIAG INJ SC/IM CPT-4: 71633 06/29/2011 KETOROLAC TROMETHAMINE INJ CPT-4: J1885 05/23/2011 VITAMIN B12 INJECTION CPT-4: J3420 05/23/2011 THER/PROPH/DIAG INJ SC/IM CPT-4: 31970 05/23/2011 ADMIN INFLUENZA VIRUS VAC CPT-4: G0008 04/26/2011 FLULAVAL VACC, 3 YRS & >, IM CPT-4: Q2036 04/26/2011 VITAMIN B12 INJECTION CPT-4: J3420 04/26/2011 THER/PROPH/DIAG INJ SC/IM CPT-4: 39996 04/26/2011 Vital Signs Date Vital 06/18/2017 Blood Pressure 1: 134/68 Code : 8480-6 BMI: 35.8 Code : 20151-4 Heart Rate 1 : 50 bpm Height: 5'6" SpO2: 98% Weight: 222 lbs 06/07/2017 Blood Pressure 1: 146/68 Code : 8480-6 BMI: 35.3 Code : 29051-9 Heart Rate 1 : 63 bpm Height: 5'6" SpO2: 99% Weight: 218 lbs 8 oz 04/16/2017 Blood Pressure 1: 130/62 Code : 8480-6 BMI: 34.7 Code : 80105-9 Heart Rate 1 : 51 bpm Height: 5'6" SpO2: 94% Weight: 215 lbs 02/23/2017 Blood Pressure 1: 136/64 Code : 8480-6 BMI: 35.0 Code : 39947-2 Heart Rate 1 : 54 bpm Height: 5'6" SpO2: 96% Weight: 217 lbs 12/26/2016 Blood Pressure 1: 144/74 Code : 8480-6 BMI: 34.5 Code : 35894-1 Heart Rate 1 : 60 bpm Height: 5'6" SpO2: 97% Weight: 214 lbs 09/07/2016 Blood Pressure 1: 138/62 Code : 8480-6 Heart Rate 1: 86 bpm SpO2: 96% Temperature: 36.8 (C) / 98.2 (F) Weight: 207 lbs 08/29/2016 Blood Pressure 1: 132/58 Code : 8480-6 BMI: 33.9 Code : 71108-8 Heart Rate 1 : 55 bpm Height: 5'6" SpO2: 98% Weight: 210 lbs 06/12/2016 Blood Pressure 1: 128/76 Code : 8480-6 BMI: 33.2 Code : 96645-0 Heart Rate 1 : 57 bpm Height: 5'6" SpO2: 97% Weight: 206 lbs 05/04/2016 Blood Pressure 1: 130/72 Code : 8480-6 BMI: 33.9 Code : 54227-7 Heart Rate 1 : 74 bpm Height: 5'6" SpO2: 96% Temperature: 36.9 (C) / 98.5 (F) Weight: 210 lbs 03/30/2016 Blood Pressure 1: 116/66 Code : 8480-6 BMI: 34.3 Code : 36895-2 Heart Rate 1 : 67 bpm Height: 5'6" SpO2: 98% Weight: 212 lbs 8 oz 11/30/2015 Blood Pressure 1: 138/64 Code : 8480-6 BMI: 35.2 Code : 84178-0 Heart Rate 1 : 59 bpm Height: 5'6" SpO2: 98% Weight: 218 lbs 09/06/2015 Blood Pressure 1: 138/668 Code: 8480-6 BMI: 35.3 Code: 44355-3 Heart Rate 1: 68 bpm Height: 5'6" Weight: 219 lbs 08/04/2015 Blood Pressure 1: 140/82 Code : 8480-6 Heart Rate 1: 62 bpm SpO2: 98% Weight: 220 lbs 07/05/2015 Blood Pressure 1: 122/80 Code : 8480-6 BMI: 36.0 Code : 21342-2 Heart Rate 1 : 63 bpm Height: 5'6" SpO2: 97% Temperature: 36.3 (C) / 97.3 (F) Weight: 223 lbs 06/28/2015 Blood Pressure 1: 150/74 Code : 8480-6 BMI: 36.3 Code : 63409-3 Heart Rate 1 : 65 bpm Height: 5'6" SpO2: 96% Weight: 225 lbs 02/23/2015 Blood Pressure 1: 142/64 Code : 8480-6 BMI: 37.0 Code : 83243-4 Heart Rate 1 : 56 bpm Height: 5'6" SpO2: 96% Weight: 229 lbs 01/08/2015 Blood Pressure 1: 128/88 Code : 8480-6 BMI: 37.3 Code : 98696-0 Heart Rate 1 : 74 bpm Height: 5'6" Weight: 231 lbs 09/24/2014 Blood Pressure 1: 128/70 Code : 8480-6 BMI: 36.8 Code : 16418-2 Heart Rate 1 : 68 bpm Height: 5'6" SpO2: 96% Weight: 228 lbs 05/11/2014 Blood Pressure 1: 148/82 Code : 8480-6 Height: Temperature: 36.2 (C) / 97.2 (F) Weight: 05/01/2014 Blood Pressure 1: 128/68 Code : 8480-6 BMI: 36.6 Code : 95072-7 Heart Rate 1 : 74 bpm Height: 5'6" Weight: 227 lbs 04/03/2014 Blood Pressure 1: 130/72 Code : 8480-6 BMI: 36.8 Code : 50046-2 Heart Rate 1 : 76 bpm Height: 5'6" Weight: 228 lbs 11/24/2013 Blood Pressure 1: 146/64 Code : 8480-6 BMI: 35.5 Code : 64275-8 Heart Rate 1 : 64 bpm Height: 5'6" Weight: 220 lbs 08/22/2013 Weight: 223 lbs 07/28/2013 Blood Pressure 1: 112/68 Code : 8480-6 BMI: 36.2 Code : 62105-7 Heart Rate 1 : 80 bpm Height: 5'6" Weight: 224 lbs 06/16/2013 Blood Pressure 1: 132/60 Code : 8480-6 BMI: 37.6 Code : 40808-2 Heart Rate 1 : 72 bpm Height: 5'6" Weight: 233 lbs 01/22/2013 Blood Pressure 1: 130/64 Code : 8480-6 BMI: 37.3 Code : 94654-9 Heart Rate 1 : 80 bpm Height: 5'6" Weight: 231 lbs 10/02/2012 Blood Pressure 1: 146/90 Code : 8480-6 BMI: 36.8 Code : 04096-6 Heart Rate 1 : 60 bpm Height: [...] Code : 8480-6 BMI: 37.1 Code : 34714-8 Heart Rate 1 : 60 bpm Height: 5'6" Respiratory Rate: 16 bpm Weight: 230 lbs 12/20/2011 Blood Pressure 1: 142/66 Code : 8480-6 BMI: 35.8 Code : 10021-6 Heart Rate 1 : 66 bpm Height: [...] Code : 8480-6 BMI: 36.2 Code : 09286-8 Heart Rate 1 : 64 bpm Height: [...] pain Quality intermittent 02/23/2015 seeing Kevin brown [facility] diabetes mellitus Test results HgbA1c level 7.6 [...] lesion Location on the right cheek 01/22/2013 christianity area edema Quality painful 01/22/2013 None edema [...] data Encounters Encounter Performer Location Codes Date ) 15839 EST. PATIENT, LEVEL IV Diagnosis: Type 2 diabetes mellitus without complications[ICD10: E11.9] Diagnosis: Essential (primary) hypertension[ICD10: I10] Diagnosis: Other vitamin B12 deficiency anemias[ICD10: D51.8] Diagnosis: Allergic rhinitis due to animal (cat) (dog) hair and dander[ICD10: J30.81] Daisy Garcia MD, [facility] CPT-4: 12828 2016 ([id number]) 23355 EST. 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 PATIENT, LEVEL IV Diagnosis: Type 2 diabetes mellitus without complications[ICD10: E11.9] Diagnosis: Essential (primary) hypertension[ICD10: I10] Diagnosis: Chronic atrial fibrillation[ICD10: I48.2] Daisy Garcia MD, [facility] CPT-4: 08486 04/16/2017 ([id number]) 17615 EST. PATIENT, LEVEL III Diagnosis: Sciatica, left side[ICD10: M54.32] Diagnosis: Sacroiliitis, not elsewhere classified[ICD10: M46.1] Chantell Garcia MD, [facility] CPT-4: 75014 02/23/2017 74300 85553 EST. PATIENT, LEVEL IV Diagnosis: Type 2 diabetes mellitus without complications[ICD10: E11.9] Diagnosis: Essential (primary) hypertension[ICD10: I10] Daisy Garcia MD, [facility] CPT-4: 60576 12/26/2016 ([id number]) 46940 EST. PATIENT, LEVEL III Diagnosis: Cough[ICD10: R05] Diagnosis: Acute bronchitis, unspecified[ICD10: J20.9] Chantell Garcia MD, [facility] CPT-4: 60835 09/07/2016 ([id number]) 71391 EST. PATIENT, LEVEL IV Diagnosis: Type 2 diabetes mellitus without complications[ICD10: E11.9] Diagnosis: Cough[ICD10: R05] Diagnosis: Acute laryngopharyngitis[ICD10: J06.0] Diagnosis: Acute recurrent maxillary sinusitis[ICD10: J01.01] Daisy Garcia MD, [facility] CPT-4: 34832 08/29/2016 76758 EST. PATIENT, LEVEL IV Diagnosis: Other allergic rhinitis[ICD10: J30.89] Diagnosis: Other vitamin B12 deficiency anemias[ICD10: D51.8] Yady Garcia MD, [facility] CPT-4: 07287 06/12/2016 ([id number]) 01662 EST. PATIENT, LEVEL III Diagnosis: Urinary tract infection, site not specified[ICD10: N39.0] Diagnosis: Fever, unspecified[ICD10: R50.9] Diagnosis: Other vitamin B12 deficiency anemias[ICD10: D51.8] Chantell Garcia MD, [facility] CPT-4: 70898 05/04/2016 ([id number]) 25334 EST. 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 PATIENT, LEVEL IV Diagnosis: Type 2 diabetes mellitus with hyperglycemia[ICD10: E11.65] Diagnosis: Essential (primary) hypertension[ICD10: I10] Daisy Garcia MD, [facility] CPT-4: 56610 11/30/2015 ([id number]) 83436 EST. PATIENT, LEVEL III Diagnosis: Acute recurrent maxillary sinusitis[ICD10: J01.01] Diagnosis: Unspecified acute conjunctivitis, right eye[ICD10: H10.31] Diagnosis: Vitamin B12 deficiency anemia, unspecified[ICD10: D51.9] Chantell Garcia MD , [facility] CPT-4: 26313 09/06/2015 52869 EST. PATIENT, LEVEL III Diagnosis: Pain in right knee[ICD10: M25.561] Diagnosis: Essential (primary) hypertension[ICD10: I10] Diagnosis: Vitamin B12 deficiency anemia, unspecified[ICD10: D51.9] Yady Garcia MD, [facility] CPT-4: 01704 08/04/2015 ([id number]) 56383 EST. PATIENT, LEVEL III Diagnosis: Streptococcal pharyngitis[ICD10: J02.0] Diagnosis: Acute recurrent maxillary sinusitis[ICD10: J01.01] Chantell Garcia MD, [facility] CPT-4: 41395 07/05/2015 ([id number]) 68137 EST. PATIENT, LEVEL IV Diagnosis: Type 2 diabetes mellitus with hyperglycemia[ICD10: E11.65] Diagnosis: Essential (primary) hypertension[ICD10: I10] Diagnosis: Vitamin B12 deficiency anemia, unspecified[ICD10: D51.9] Daisy Garcia MD, [facility] CPT-4: 37473 06/28/2015 ([id number]) 07064 EST. PATIENT, LEVEL IV Diagnosis: DM W/O COMPLICATION TYPE II, UNCONTROLLED[ICD9: 250.02] Diagnosis: ESSENTIAL HYPERTENSION[ICD9: 401.9] Diagnosis: Iron deficiency[ICD9: 280.9] Diagnosis: OTH SCREENING MAMMOGRAM[ICD9: V76.12] Diagnosis: B12 deficiency[ICD9: 266.2] Daisy Garcia MD, [facility] CPT- 4: 23301 02/23/2015 ([id number]) 84018 EST. PATIENT, LEVEL IV Diagnosis: DM W/O COMPLICATION TYPE II, UNCONTROLLED[ICD9: 250.02] Diagnosis: ESSENTIAL HYPERTENSION[ICD9: 401.9] Diagnosis: Right knee pain[ICD9: 719.46] Diagnosis: B12 deficiency[ICD9: 266.2] Chantell Garcia MD, [facility] CPT-4: 25811 01/08/2015 ([id number]) 57347 EST. PATIENT, LEVEL IV Diagnosis: DM W/O COMPLICATION TYPE II, UNCONTROLLED[ICD9: 250.02] Diagnosis: ESSENTIAL HYPERTENSION[ICD9: 401.9] Diagnosis: Iron deficiency[ICD9: 280.9] Daisy Garcia MD, [facility] CPT- 4: 07758 09/24/2014 ([id number]) 13857 EST. PATIENT, LEVEL III Diagnosis: Sacroiliitis[ICD9: 720.2] Diagnosis: Left sided sciatica[ICD9: 724.3] Chantell Garcia MD, [facility] CPT-4: 28752 05/11/2014 ([id number]) 84315 EST. PATIENT, LEVEL III Diagnosis: CELLULITIS OF BUTTOCK[ICD9: 682.5] Daisy Garcia MD [facility] CPT-4: 39293 05/01/2014 67769 EST. PATIENT, LEVEL IV Diagnosis: ESSENTIAL HYPERTENSION[ICD9: 401.9] Diagnosis: DIABETES TYPE II[ICD9: 250.00] Diagnosis: Iron deficiency[ICD9: 280.9] Diagnosis: LUMBAGO[ICD9: 724.2] Daisy Garcia MD, [facility] CPT-4: 07683 04/03/2014 ([id number]) 12528 EST. PATIENT, LEVEL IV Diagnosis: ESSENTIAL HYPERTENSION[SNOMED: 83229660] Diagnosis: DIABETES TYPE II[SNOMED: 493989797] Diagnosis: ANEMIA[ICD9: 285.9] Diagnosis: Iron deficiency[ICD9: 280.9] Daisy Garcia MD [facility] CPT- 4: 37731 11/24/2013 ([id number]) 59283 EST. PATIENT, LEVEL IV Diagnosis: ESSENTIAL HYPERTENSION[SNOMED: 20984405] Diagnosis: DIABETES TYPE II[SNOMED: 206252504] Diagnosis: EDEMA[ICD9: 782.3] Daisy Garcia MD [facility] CPT-4: 02416 07/28/2013 ([id number]) 42930 EST. PATIENT, LEVEL IV Diagnosis: ESSENTIAL HYPERTENSION[SNOMED: 32909286] Diagnosis: DIABETES TYPE II[SNOMED: 650923623] Diagnosis: EDEMA[ICD9: 782.3] Diagnosis: B-COMPLEX DEFIC NEC[ICD9: 266.2] Daisy Garcia MD, [facility] CPT-4: 56657 06/16/2013 ([id number]) 68505 EST. PATIENT, LEVEL IV Diagnosis: ESSENTIAL HYPERTENSION[SNOMED: 75752974] Diagnosis: DIABETES TYPE II[SNOMED: 758542491] Diagnosis: EDEMA[ICD9: 782.3] Diagnosis: B-COMPLEX DEFIC NEC[ICD9: 266.2] Daisy Garcia MD, [facility] CPT-4: 71200 01/22/2013 ([id number]) 69612 EST. PATIENT, LEVEL III Diagnosis: Lumbago[ICD9: 724.2] Diagnosis: Sacroiliitis[ICD9: 720.2] Diagnosis: ESSENTIAL HYPERTENSION[SNOMED: 94152690] Daisy Garcia MD [facility] CPT-4: 23931 10/02/2012 ([id number]) 59254 EST. PATIENT, LEVEL III Diagnosis: ACUTE URI[ICD9: 465.9] Daisy Garcia MD [facility] CPT-4: 99289 08/06/2012 ([id number]) 01310 EST. PATIENT, LEVEL IV Diagnosis: ESSENTIAL HYPERTENSION[SNOMED: 39867898] Diagnosis: DIABETES TYPE II[SNOMED: 226275147] Diagnosis: ANEMIA[ICD9: 285.9] Daisy Garcia MD, [facility] CPT-4: 46948 07/04/2012 ([id number]) 93137 EST. PATIENT, LEVEL IV Diagnosis: ESSENTIAL HYPERTENSION[SNOMED: 08441103] Diagnosis: DIABETES TYPE II[SNOMED: 544682982] Diagnosis: B-COMPLEX DEFIC NEC[ICD9: 266.2] Daisy Garcia MD, [facility] CPT-4: 49671 05/22/2012 ([id number]) 41927 EST. PATIENT, LEVEL IV Diagnosis: ESSENTIAL HYPERTENSION[SNOMED: 78732309] Diagnosis: DIABETES TYPE II[SNOMED: 780940431] Diagnosis: LUMBAGO[ICD9: 724.2] Diagnosis: B-COMPLEX DEFIC NEC[ICD9: 266.2] Daisy Garcia MD, [facility] CPT-4: 44938 04/22/2012 17880 EST. PATIENT, LEVEL III Diagnosis: Sciatica of right side[ICD9: 724.3] Diagnosis: Sacroiliitis[ICD9: 720.2] Chantell Garcia MD, [facility] CPT-4: 47834 12/28/2011 ([id number]) 15667 EST. PATIENT, LEVEL IV Diagnosis: DIABETES TYPE II[SNOMED: 065498572] Diagnosis: ESSENTIAL HYPERTENSION[SNOMED: 54094685] Daisy Garcia MD, [facility] CPT-4: 46001 12/20/2011 ([id number]) 30147 EST. PATIENT, LEVEL IV Diagnosis: ESSENTIAL HYPERTENSION[SNOMED: 23189400] Diagnosis: DIABETES TYPE II[SNOMED: 220417112] Diagnosis: PAIN IN LIMB[ICD9: 729.5] Diagnosis: LUMBAGO[ICD9: 724.2] Diagnosis: Sacroiliitis[ICD9: 720.2] Daisy Garcia MD, [facility] CPT-4: 70866 08/23/2011 67073 EST. PATIENT, LEVEL III Diagnosis: Sacroiliitis[ICD9: 720.2] Diagnosis: Right sided sciatica[ICD9: 724.3] Diagnosis: B-COMPLEX DEFIC NEC[ICD9: 266.2] Chantell Garcia MD, [facility] CPT-4: 43378 05/23/2011 19281 EST. PATIENT, LEVEL IV Diagnosis: DIABETES TYPE II[SNOMED: 751599757] Diagnosis: ESSENTIAL HYPERTENSION[SNOMED: 18171231] Diagnosis: Feces incontinence[ICD9: 787.60] Daisy Garcia MD, [facility] CPT-4: 60808 04/26/2011 Plan of Care Planned Activity Notes Codes Status Date Appointment: Injection 08/21/2017 Patient Education: Patient Medication Summary Completed 08/21/2017 Appointment: Injection 07/18/2017 Patient Education: Patient Medication Summary Completed 07/18/2017 Appointment: Daisy Garcia WPtel: [address] [place], [place] [phone] (15 min) Moderate 06/18/2017 Patient Education: Patient Medication Summary Completed 06/18/2017 Patient Education: Obesity Completed 06/18/2017 Patient Education: Hypertension Completed 06/18/2017 Appointment: Daisy Garcia WPtel: [address] [place], [place] [address] [place] (15 min) Moderate 06/07/2017 Patient Education: Patient Medication Summary Completed 06/07/2017 Patient Education: Obesity Completed 06/07/2017 Appointment: Injection 05/09/2017 Patient Education: Patient Medication Summary Completed 05/09/2017 [facility]ment[facility] [phone] [facility] [place] (15 min) Moderate 04/26/2017 Patient Education: Patient Medication Summary Completed 04/25/2017 Appointment: [facility] [phone] [facility] [place] (15 min) Moderate 04/16/2017 Appointment: [facility] [phone] [facility] [place] (15 min) Moderate 04/16/2017 Patient Education: Patient Medication Summary Completed 04/16/2017 Patient Education: Obesity Completed 04/16/2017 Patient Education: Hypertension Completed 04/16/2017 Appointment: Injection 04/04/2017 Patient Education: Patient Medication Summary Completed 04/04/2017 Patient Education: Patient Medication Summary Completed 02/23/2017 Appointment: Injection 01/23/2017 Patient Education: Patient Medication Summary Completed 01/23/2017 Appointment: Daisy Garcia WPtel: [facility] [place] (15 min) Moderate 12/26/2016 Patient Education: Patient Medication Summary Completed 12/26/2016 Appointment: Injection 11/14/2016 Patient Education: Patient Medication Summary Completed 11/14/2016 [facility] [phone] [phone] [place] (30 min) Complex 09/07/2016 Patient Education: Patient Medication Summary Completed 09/07/2016 Appointment: Daisy [facility]el[facility] [phone] [facility] [place] (15 min) Moderate 08/29/2016 Patient Education: Patient Medication Summary Completed 08/29/2016 Patient Education: Obesity Completed 08/29/2016 Appointment: [facility] [phone] [facility] [place] (15 min) Moderate 08/22/2016 App[facility]ment: [facility] [phone] [facility] [place] (15 min) Moderate 08/02/2016 Appointment: Chantell Singh WPtel: [phone] [phone] [place] (30 min) Complex 08/02/2016 App[facility]ment: [facility] [phone] [facility] [place] (15 min) Moderate 06/12/2016 Patient Education: Patient Medication Summary Completed 06/12/2016 Patient Education: Obesity Completed 06/12/2016 Appointment: [facility] [phone] [phone] [place] (15 min) Moderate 05/04/2016 Patient Education: Patient Medication Summary Completed 05/04/2016 Patient Education: Obesity Completed 05/04/2016 Appointment: [facility]el[facility] [phone] [facility] [place] (15 min) Moderate 03/30/2016 Patient Education: Patient Medication Summary Completed 03/30/2016 Patient Education: Hypertension Completed 03/30/2016 Appointment: Injection 03/17/2016 Patient Education: Patient Medication Summary Completed 03/17/2016 Appointment: Injection 02/15/2016 Patient Education: Patient Medication Summary Completed 02/15/2016 Appointment: Daisy Garcia [facility]el[facility] [phone] [facility] [place] (15 min) Moderate 01/26/2016 Appointment: Injection 01/19/2016 Patient Education: Patient Medication Summary Completed 01/19/2016 Appointment: Injection 12/07/2015 Patient Education: Patient Medication Summary Completed 12/07/2015 Appointment: Daisy [facility]el[facility] [phone] [facility] [place] (15 min) Moderate 11/30/2015 Patient Education: Patient Medication Summary Completed 11/30/2015 Patient Education: Obesity Completed 11/30/2015 Appointment: Daisy Garcia WPtel: [facility] (15 min) Moderate 10/26/2015 Patient Education: Patient Medication Summary Completed 09/06/2015 Patient Education: Patient Medication Summary Completed 08/04/2015 Patient Education: Hypertension Completed 08/04/2015 Patient Education: Patient Medication Summary Completed 07/05/2015 Care Plan: C RAP A SC Pending 07/05/2015 Appointment: Daisy Garcia WPtel: [address] [place], [place] [phone] [place] (15 min) Moderate 06/28/2015 Patient Education: Patient Medication Summary Completed 06/28/2015 Patient Education: Hypertension Completed 06/28/2015 Appointment: (15 min) Moderate 05/13/2015 Patient Education: Patient Medication Summary Completed 05/13/2015 Patient Education: Patient Medication Summary Completed 03/03/2015 Appointment: Daisy Garcia WPtel: [address] [place], [place] [phone] Follow up 02/23/2015 Patient Education: Patient Medication Summary Completed 02/23/2015 Patient Education: Hypertension Completed 02/23/2015 Care Plan: SCREENINGMAMMOGRAPHYDIGITAL LOINC : 11146-3 Ordered 02/23/2015 Appointment: (15 min) Moderate 01/08/2015 Patient Education: Patient Medication Summary Completed 01/08/2015 Patient Education: Hypertension Completed 01/08/2015 Care Plan: COMPLETE CBC AUTOMATED LOINC : 12547-6 Ordered 01/08/2015 Appointment: Injection 12/08/2014 Patient Education: Patient Medication Summary Completed 12/08/2014 Appointment: Injection 10/26/2014 Patient Education: Patient Medication Summary Completed 10/26/2014 Appointment: Daisy Garcia WPtel: [address] [place], [place] [phone] Follow up 09/24/2014 Patient Education: Patient Medication Summary Completed 09/24/2014 Patient Education: Hypertension Completed 09/24/2014 Appointment: Daisy Garcia WPtel: [facility] Injection 08/24/2014 Patient Education: Patient Medication Summary Completed 08/24/2014 Appointment: Follow up 08/07/2014 Patient Education: Patient Medication Summary Completed 07/08/2014 Patient Education: Patient Medication Summary Completed 06/01/2014 Patient Education: Patient Medication Summary Completed 05/11/2014 Appointment: [facility]el[facility] [phone] [facility] [place] Follow up 05/01/2014 Patient Education: Patient Medication Summary Completed 05/01/2014 Appointment: [facility]el[facility] [phone] [facility] [place] Injection 04/27/2014 Patient Education: Patient Medication Summary Completed 04/27/2014 Appointment: Chantell Singh WPtel: [phone] [phone] [place] Follow up 04/03/2014 Patient Education: Patient Medication Summary Completed 04/03/2014 Patient Education: Hypertension Completed 04/03/2014 Appointment: Daisy Garcia WPtel: [facility] [place] Injection 03/24/2014 Patient Education: Patient Medication Summary Completed 03/24/2014 Appointment: Daisy Garcia WPtel: [facility] [place] Follow up 03/23/2014 Appointment: Daisy Garcia WPtel: [facility] [place] Injection 02/24/2014 Patient Education: Patient Medication Summary Completed 02/24/2014 Appointment: [facility] [phone] [phone] [place] Injection 01/09/2014 Patient Education: Patient Medication Summary Completed 01/09/2014 Patient Education: Patient Medication Summary Completed 11/27/2013 Appointment: Daisy Garcia WPtel: [facility] [place] Follow up 11/24/2013 Patient Education: Patient Medication Summary Completed 11/24/2013 Patient Education: Hypertension Completed 11/24/2013 Appointment: Daisy Garcia WPtel: [facility] [place] Follow up 11/12/2013 Appointment: Daisy Garcia WPtel: [facility] [place] Follow up 10/27/2013 Appointment: [facility] [phone] [phone] [place] Injection 09/18/2013 Patient Education: Patient Medication Summary Completed 09/18/2013 Appointment: [facility] [phone] [phone] [place] Injection 08/22/2013 Patient Education: Patient Medication Summary Completed 08/22/2013 Appointment: Daisy Garcia WPtel: [facility] [place] Follow up 07/28/2013 Patient Education: Patient Medication Summary Completed 07/28/2013 Patient Education: Hypertension Completed 07/28/2013 Appointment: Chantell Singh WPtel: [phone] [place] Injection 06/20/2013 Appointment: Daisy Garcia WPtel: [address] [place], [place] [address] [place] Follow up 06/16/2013 Patient Education: Patient Medication Summary Completed 06/16/2013 Patient Education: Hypertension Completed 06/16/2013 Appointment[id number] [place] In[facility] 05/21/2013 Patient Education: Patient Medication Summary Completed 05/21/2013 App[facility]ment: [id number] [place] [facility] 04/23/2013 Patient Education: Patient Medication Summary Completed 04/23/2013 Appointment: Daisy Garcia [id number] [place] [facility] 03/24/2013 Patient Education: Patient Medication Summary Completed 03/24/2013 App[facility]ment: [id number] [place] [facility] 02/20/2013 Patient Education: Patient Medication Summary Completed 02/20/2013 App[facility]ment: [id number] [place] Follow up 01/22/2013 Patient Education: Patient Medication Summary Completed 01/22/2013 Patient Education: Hypertension Completed 01/22/2013 App[facility]ment: [id number] [place] [facility] 01/21/2013 Patient Education: Patient Medication Summary Completed 12/19/2012 App[facility]ment: [id number] [place] [facility] 11/22/2012 Appointment: [id number] [place] [facility] 11/20/2012 Patient Education: Patient Medication Summary Completed 11/20/2012 [phone] [place] [facility] 11/08/2012 Appointment: Daisy Garcia [facility]Ptel: [id number] [place] In[facility] 10/23/2012 Patient Education: Patient Medication Summary Completed 10/23/2012 Patient Education: Patient Medication Summary Completed 10/02/2012 Patient Education: Hypertension Completed 10/02/2012 Appointment: Chantell Singh [id number] [place] Lab Draw 09/16/2012 Patient Education: Patient Medication Summary Completed 09/16/2012 Patient Education: Patient Medication Summary Completed 08/15/2012 App[phone] [place] Sick 08/06/2012 Patient Education: Patient Medication Summary Completed 08/06/2012 Patient Education: Patient Medication Summary Completed 07/19/2012 [facility]ment: [id number] [place] [facility] 07/10/2012 Patient Education: Patient Medication Summary Completed 07/10/2012 Appointment: Daisy Garcia WPtel: [id number] [place] Follow up 07/04/2012 Patient Education: Patient Medication Summary Completed 07/04/2012 Patient Education: Hypertension Completed 07/04/2012 Appointment: Daisy Garcia WPtel: [id number] [place] In[facility] 06/19/2012 Patient Education: Patient Medication Summary Completed 06/19/2012 Appointment: Chantell Singh WPtel: [facility]5 [phone] [place] Follow up 05/22/2012 Appointment: Chantell Singh [facility]Ptel[id number] [place] Follow up 05/22/2012 Patient Education: Patient Medication Summary Completed 05/22/2012 Patient Education: High Blood Pressure: Essential Hypertension Completed 2011 Appointment: Chantell Singh [phone] [place] Established Patient Preventative visit 04/22/2012 Patient Education: Patient Medication Summary Completed 04/22/2012 Patient Education: High Blood Pressure: Essential Hypertension Completed 2011 Appointment: Chantell Singh [facility]el[phone] [place] Injection 03/19/2012 Patient Education: Patient Medication Summary Completed 03/19/2012 Appointment: [id number] [place] [facility] 02/15/2012 Patient Education: Patient Medication Summary Completed 02/15/2012 Appointment: [id number] [place] [facility] 01/18/2012 Patient Education: Patient Medication Summary Completed 01/18/2012 App[facility]ment[phone] [place] Other 12/28/2011 Patient Education: Patient Medication Summary Completed 12/28/2011 Appointment: [phone] [place] Other 12/20/2011 Patient Education: Patient Medication Summary Completed 12/20/2011 Patient Education: High Blood Pressure: Essential Hypertension Completed 2011 App[facility]ment: [phone] [place] In[facility] 11/07/2011 Patient Education: Patient Medication Summary Completed 11/07/2011 Appointment: [id number] [place] [facility] 10/03/2011 Patient Education: Patient Medication Summary Completed 10/03/2011 Appointment: [phone] [id number] [place] [facility] 08/28/2011 Appointment: [facility] Garcia [phone] [facility] [place] Other 08/23/2011 Patient Education: Patient Medication Summary Completed 08/23/2011 Patient Education: High Blood Pressure: Essential Hypertension Completed 2011 App[facility]ment: [phone] [place] 07/28/2011 Patient Education: Patient Medication Summary Completed 07/28/2011 App[facility]ment: [phone] [phone] [place] In[place] 06/29/2011 Patient Education: Patient Medication Summary Completed 06/29/2011 App[facility]ment: [phone] [phone] [place] Other 05/23/2011 Patient Education: Patient Medication Summary Completed 05/23/2011 Appointment: [phone] Other 04/26/2011 Patient Education: Patient Medication Summary Completed 04/26/2011 Instructions No Instructions
[2018-07-17 07:36] LABS: PROTHROMBIN TIME PATIENT 13.5 SEC (12.2-14.7)
[2018-07-17 07:36] LABS: BACTERIA,URINE FEW /HPF
[2018-07-17] MEDS ORDERED: ESCI5TAB12 PO ×2 (07:36→07:51)
[2018-07-17] MEDS ORDERED: WARF-47 PO (07:36)
[2018-07-17] MEDS ORDERED: HYDR-3812 PO (07:36)
[2018-07-17] MEDS ORDERED: CLOP75TA69 PO (07:36)
[2018-07-17] MEDS ORDERED: AMIO200T4 PO (07:36)
[2018-07-17] MEDS ORDERED: DIPH1TAB PO (07:36)
[2018-07-17] MEDS ORDERED: SIMV20TA3 PO (07:36)
[2018-07-17] MEDS ORDERED: METO-370 PO (07:36)
--- OUTSIDE RECORDS SUMMARY | 2018-07-17 07:37 | XMS REPORT | CCD ---
Author Author [facility] Organization [facility] Address [address] [place] [address] Phone Care Team Providers Care Senior Brand Manager Name Role Phone Daisy Garcia PP Unavailable CCM Unavailable Summary Purpose Interface Exchange Insurance Providers Payer name Policy type / Coverage type Covered libertarian ID Effective Begin Date Effective End Date WPS Medicare Part B Medicare Part B [id number] Unknown AETNA Medicare Part B [id number] Unknown Family history Sister Diagnosis Age At [...] 1 daughter 04/21/[address]: 458153348 Nonsmoker 04/21/[address]: 200050461 Never drinks alcohol 04/21/2011 Has the patient ever used illegal drugs? Unknown Has never used illegal drugs 04/21/2011 Allergies, Adverse Reactions, Alerts Allergies, Adverse Reactions, Alerts data not found Past Medical History Illness Codes Condition Status Onset Date Resolved Date Other vitamin B12 deficiency anemias ICD-9: 281.1 [...] ICD-9: 427.31 ICD-10: I48.2 Active 04/16/2017 Unknown Vitamin B12 deficiency anemia, unspecified ICD-9: 281.1 ICD-10: D51.9 Active 02/14/2016 Unknown Sacroiliitis, not elsewhere classified ICD-9: 720.2 [...] Problems Condition Codes Effective Dates Condition Status Other vitamin B12 deficiency anemias ICD-9: 281.1 [...] fibrillation ICD-9: 427.31 ICD-10: I48.2 04/16/2017 Active Vitamin B12 deficiency anemia, unspecified ICD-9: 281.1 ICD-10: D51.9 02/14/2016 Active Sacroiliitis, not elsewhere classified ICD-9: 720.2 [...] Start Date Stop Date Status Fill Instructions Synthroid 50 mcg tablet RxNorm: 984334 TAKE ONE TABLET BY MOUTH EVERY DAY. 08/15/2017 10/13/2017 Active metformin ER 500 mg tablet,extended release 24 hr RxNorm: 907886 TAKE TWO TABLETS BY MOUTH TWICE A DAY 07/31/20172017 Active Tricor 145 mg tablet RxNorm: 375841 TAKE ONE TABLET BY MOUTH DAILY 07/31/2017 11/27/2017 Active spironolactone 25 mg tablet RxNorm: 497729 TAKE ONE TABLET BY MOUTH TWICE A DAY 07/31/2017 07/25/2018 Active Tenex 1 mg tablet RxNorm: 522525 TAKE ONE TABLET BY MOUTH DAILY 07/20/2017 01/15/2018 Active cyanocobalamin (vit B-12) 1,000 mcg/mL injection solution RxNorm: 762774 1 Milliliter(s) Inj 07/18/2017 07/18/2017 Inactive Byetta 10 mcg/dose(250 mcg/mL)2.4 mL subcutaneous pen injector RxNorm: 360065 INJECT 10 MCG UNDER THE SKIN TWO TIMES A DAY ( START AFTER 5 MCG DOSE IS COMPLETE ) 06/18/2017 04/13/2018 Active potassium chloride ER 20 mEq tablet,extended release(part/ cryst) RxNorm: 5759690 TAKE ONE TABLET BY MOUTH DAILY WHEN YOU TAKE LASIX (FUROSEMIDE) 06/18/2017 09/15/2017 Active Flonase Allergy Relief 50 mcg/actuation nasal spray, suspension RxNorm: 2842545 1 [place] NASAL BID 06/18/20172017 Active Kenalog 40 mg/mL suspension for injection RxNorm: 0959794 1 Milliliter(s) Inj 06/18/2017 06/18/2017 Inactive cyanocobalamin (vit B-12) 1,000 mcg/mL injection solution RxNorm: 399381 1 Milliliter(s) Inj 06/18/2017 06/18/2017 Inactive Lasix 20 mg tablet RxNorm: 620165 Tablet(s) TAKE ONE TABLET BY MOUTH EVERY DAY NEEDED FOR SWELLING. TAKE POTASSIUM WITH EACH DOSE 201610/02/2017 Active cyanocobalamin (vit B-12) 1,000 mcg/mL injection solution RxNorm: 241457 1 Milliliter(s) Inj 05/09/2017 05/09/2017 Inactive cyanocobalamin (vit B-12) 1,000 mcg/mL injection solution RxNorm: 358477 1 Milliliter(s) Inj 04/04/2017 04/04/2017 Inactive metformin ER 500 mg tablet,extended release 24 hr RxNorm: 643457 TAKE TWO TABLETS BY MOUTH TWICE A DAY 03/01/20172016 Inactive Kenalog 40 mg/mL suspension for injection RxNorm: 1970027 1 Milliliter(s) Inj 02/23/2017 02/23/2017 Inactive amlodipine 5 mg tablet RxNorm: 966205 TAKE ONE TABLET BY MOUTH TWICE A DAY 02/22/2017 11/18/2017 Active glipizide 10 mg tablet RxNorm: 176909 TAKE ONE TABLET BY MOUTH TWICE A DAY 02/12/2017 08/10/2017 Inactive cyanocobalamin (vit B-12) 1,000 mcg/mL injection solution RxNorm: 218699 Milliliter(s) Inj 01/23/2017 01/23/2017 Inactive Synthroid 50 mcg tablet RxNorm: 644726 TAKE ONE TABLET BY MOUTH EVERY DAY. 12/21/2016 06/18/2017 Inactive potassium chloride ER 20 mEq tablet,extended release(part/ cryst) RxNorm: 0731467 TAKE ONE TABLET BY MOUTH DAILY WHEN YOU TAKE LASIX (FUROSEMIDE) 12/21/2016 04/19/2017 Inactive Tricor 145 mg tablet RxNorm: 420781 TAKE ONE TABLET BY MOUTH DAILY 12/21/2016 06/06/2017 Inactive Lasix 20 mg tablet RxNorm: 981162 TAKE ONE TABLET BY MOUTH EVERY DAY NEEDED FOR SWELLING. TAKE POTASSIUM WITH EACH DOSE 12/11/2016 04/09/2017 Inactive cyanocobalamin (vit B-12) 1,000 mcg/mL injection solution RxNorm: 379962 1 Milliliter(s) Inj 11/14/2016 11/14/2016 Inactive simvastatin 20 mg tablet RxNorm: 398396 TAKE ONE TABLET BY MOUTH EVERY NIGHT AT BEDTIME 10/23/2016 04/15/2017 Inactive Tenex 1 mg tablet RxNorm: 793648 TAKE ONE TABLET BY MOUTH DAILY 10/16/2016 11/14/2016 Inactive glipizide 10 mg tablet RxNorm: 778228 TAKE ONE TABLET BY MOUTH TWICE A DAY 09/20/2016 02/11/2017 Inactive doxycycline hyclate 100 mg capsule RxNorm: 4665079 1 Capsule(s) PO BID 09/12/2016 09/18/2016 Inactive doxycycline hyclate 100 mg capsule RxNorm: 5052830 1 Capsule(s) PO BID 09/12/2016 09/11/2016 Inactive Phenergan with Codeine Syrup RxNorm: 5-10 Milliliter(s) PO Q6 PRN 09/07/2016 No Stop Date Active prednisone 20 mg tablet RxNorm: 342611 1 Tablet(s) PO BID 09/0709/11/2016 Inactive Kenalog 40 mg/mL suspension for injection RxNorm: 5856695 1 Milliliter(s) Inj 09/07/2016 09/07/2016 Inactive Tessalon Perles 100 mg capsule RxNorm: 561407 1 Capsule(s) PO TID PRN 09/01/2016 09/20/2016 Inactive Zyrtec 10 mg capsule RxNorm: 0641437 1 Capsule(s) PO daily 03/26/2017 Inactive Flonase Allergy Relief 50 mcg/actuation nasal spray, suspension RxNorm: 5201073 1 [place] NASAL BID 08/29/20162016 Inactive cyanocobalamin (vit B-12) 1,000 mcg/mL injection solution RxNorm: 126862 1 Milliliter(s) Inj 08/29/2016 08/29/2016 Inactive metformin ER 500 mg tablet,extended release 24 hr RxNorm: 044641 Tablet(s) TAKE TWO TABLETS BY MOUTH TWICE A DAY 08/28/2016 02/23/2017 Inactive Lopressor 100 mg tablet RxNorm: 557260 TAKE ONE TABLET BY MOUTH DAILY 06/27/2016 04/15/2017 Inactive cetirizine 10 mg tablet RxNorm: 3774588 1 Tablet(s) PO daily 07/11/2016 Inactive Flonase Allergy Relief 50 mcg/actuation nasal spray, suspension RxNorm: 2293095 1 [place] NASAL BID 06/12/20162016 Inactive cyanocobalamin (vit B-12) 1,000 mcg/mL injection solution RxNorm: 279932 Milliliter(s) Inj 06/12/2016 06/12/2016 Inactive spironolactone 25 mg tablet RxNorm: 194321 TAKE ONE TABLET BY MOUTH TWICE A DAY 06/06/2016 03/02/2017 Inactive Request already responded to by other means (e.g. phone or fax) spironolactone 25 mg tablet RxNorm: 644055 Tablet(s) TAKE ONE TABLET BY MOUTH TWICE A DAY 05/29/2016 06/05/2016 Inactive ceftriaxone 500 mg solution for injection RxNorm: 7150949 2 Milliliter(s) Inj 05/04/2016 05/04/2016 Inactive cyanocobalamin (vit B-12) 1,000 mcg/mL injection solution RxNorm: 159860 Milliliter(s) Inj 05/04/2016 05/04/2016 Inactive Cipro 500 mg tablet RxNorm: 070870 1 Tablet(s) PO BID 201505/10/2016 Inactive OneTouch Ultra Test strips RxNorm: TEST DAILY 04/24/2016 04/18/2017 Inactive Byetta 10 mcg/dose(250 mcg/mL)2.4 mL subcutaneous pen injector RxNorm: 187444 INJECT 10 MCG UNDER THE SKIN TWO TIMES A DAY ( START AFTER 5 MCG DOSE IS COMPLETE ) 04/18/2016 03/13/2017 Inactive Lasix 20 mg tablet RxNorm: 416820 TAKE ONE TABLET BY MOUTH EVERY DAY NEEDED FOR SWELLING. TAKE POTASSIUM WITH EACH DOSE 04/07/2016 09/03/2016 Inactive potassium chloride ER 20 mEq tablet,extended release(part/ cryst) RxNorm: 9384380 TAKE ONE TABLET BY MOUTH DAILY WHEN YOU TAKE LASIX (FUROSEMIDE) 04/07/2016 09/03/2016 Inactive triamcinolone acetonide 0.5 % topical cream RxNorm: 2782571 1 Application TOP BID to lesions on buttock 03/30/20162015 Inactive metformin ER 500 mg tablet,extended release 24 hr RxNorm: 560224 TAKE TWO TABLETS BY MOUTH TWICE A DAY 03/23/20162016 Inactive glipizide 10 mg tablet RxNorm: 126461 TAKE ONE TABLET BY MOUTH TWICE A DAY 03/17/2016 11/11/2016 Inactive Request already responded to by other means (e.g. phone or fax) cyanocobalamin (vit B-12) 1,000 mcg/mL injection solution RxNorm: 409430 Milliliter(s) Inj 03/17/2016 03/17/2016 Inactive glipizide 10 mg tablet RxNorm: 778677 Tablet(s) TAKE ONE TABLET BY MOUTH TWICE A DAY 03/13/2016 03/16/2016 Inactive Tricor 145 mg tablet RxNorm: 773197 TAKE ONE TABLET BY MOUTH ONCE A DAY 02/18/2016 02/11/2017 Inactive Request already responded to by other means (e.g. phone or fax) amlodipine 5 mg tablet RxNorm: 632794 TAKE ONE TABLET BY MOUTH TWICE A DAY 02/18/2016 08/15/2016 Inactive Request already responded to by other means (e.g. phone or fax) cyanocobalamin (vit B-12) 1,000 mcg/mL injection solution RxNorm: 055435 1 Milliliter(s) Inj 02/15/2016 02/15/2016 Inactive amlodipine 5 mg tablet RxNorm: 643425 Tablet(s) TAKE ONE TABLET BY MOUTH TWICE A DAY 02/14/2016 02/17/2016 Inactive Tricor 145 mg tablet RxNorm: 135066 1 Tablet(s) PO daily TAKE ONE TABLET BY MOUTH ONCE A DAY 02/14/2016 02/17/2016 Inactive Synthroid 50 mcg tablet RxNorm: 600854 TAKE ONE TABLET BY MOUTH EVERY DAY. 01/31/2016 08/27/2016 Inactive hydrocodone 5 mg-acetaminophen 325 mg tablet RxNorm: 830251 1-2 Tablet(s) PO Q4 PRN as needed pain 01/28/2016 No Stop Date Active cyanocobalamin (vit B-12) 1,000 mcg/mL injection solution RxNorm: 325954 Milliliter(s) Inj 01/19/2016 01/19/2016 Inactive metformin ER 500 mg tablet,extended release 24 hr RxNorm: 639002 TAKE TWO TABLETS BY MOUTH TWICE A DAY 01/18/20162015 Inactive cyanocobalamin (vit B-12) 1,000 mcg/mL injection solution RxNorm: 136609 1 Milliliter(s) Inj 12/07/2015 12/07/2015 Inactive metformin ER 500 mg tablet,extended release 24 hr RxNorm: 802063 TAKE TWO TABLETS BY MOUTH TWICE A DAY 10/18/20152015 Inactive simvastatin 20 mg tablet RxNorm: 042903 1 Tablet(s) PO QHS TAKE ONE TABLET BY MOUTH AT BEDTIME 10/08/2015 10/01/2016 Inactive Tenex 1 mg tablet RxNorm: 991023 TAKE ONE TABLET BY MOUTH DAILY 10/04/2015 09/27/2016 Inactive Lopressor 100 mg tablet RxNorm: 968831 TAKE ONE TABLET BY MOUTH DAILY 09/20/2015 06/15/2016 Inactive Diflucan 150 mg tablet RxNorm: 719413 1 Tablet(s) PO daily 02/201609/12/2015 Inactive cyanocobalamin (vit B-12) 1,000 mcg/mL injection kit RxNorm: 451234 kit Inj 09/06/2015 09/06/2015 Inactive gentamicin 0.3 % eye drops RxNorm: 840831 2 Drop(s) OPH QID 02/201609/12/2015 Inactive ceftriaxone 500 mg solution for injection RxNorm: 1768643 Inj 09/06/2015 09/06/2015 Inactive Keflex 500 mg capsule RxNorm: 818439 1 Capsule(s) PO TID 201509/12/2015 Inactive hydrocodone 5 mg-acetaminophen 325 mg tablet RxNorm: 674399 1-2 Tablet(s) PO Q4 PRN as needed pain 08/09/2015 01/27/2016 Inactive Lortab 5 mg-500 mg tablet RxNorm: 794777 1-2 Tablet(s) PO Q4 PRN as needed pain 08/03/2015 08/08/2015 Inactive Diflucan 150 mg tablet RxNorm: 287160 1 Tablet(s) PO daily 07/16/2015 Inactive Lasix 20 mg tablet RxNorm: 238576 TAKE ONE TABLET BY MOUTH EVERY DAY NEEDED FOR SWELLING. TAKE POTASSIUM WITH EACH DOSE 07/13/2015 01/08/2016 Inactive spironolactone 25 mg tablet RxNorm: 277798 TAKE ONE TABLET BY MOUTH TWICE A DAY 07/13/2015 05/07/2016 Inactive potassium chloride ER 20 mEq tablet,extended release(part/ cryst) RxNorm: 556857 TAKE ONE TABLET BY MOUTH DAILY WHEN YOU TAKE LASIX (FUROSEMIDE) 07/13/2015 01/08/2016 Inactive Tessalon Perles 100 mg capsule RxNorm: 847167 1 Capsule(s) PO TID PRN 07/05/2015 08/31/2016 Inactive Keflex 500 mg capsule RxNorm: 230826 1 Capsule(s) PO TID 201407/14/2015 Inactive Kenalog 40 mg/mL suspension for injection RxNorm: 8696370 Milliliter(s) Inj 07/05/2015 07/05/2015 Inactive ceftriaxone 500 mg solution for injection RxNorm: 8425841 Inj 07/05/2015 07/05/2015 Inactive cyanocobalamin (vit B-12) 1,000 mcg/mL injection solution RxNorm: 411780 Milliliter(s) Inj 06/28/2015 06/28/2015 Inactive Synthroid 50 mcg tablet RxNorm: 796753 TAKE ONE TABLET BY MOUTH EVERY DAY. 06/21/2015 11/17/2015 Inactive metformin ER 500 mg tablet,extended release 24 hr RxNorm: 818849 TAKE TWO TABLETS BY MOUTH TWICE A DAY 06/14/20152015 Inactive glipizide 10 mg tablet RxNorm: 613652 TAKE ONE TABLET BY MOUTH TWICE A DAY 05/31/2015 02/24/2016 Inactive cyanocobalamin (vit B-12) 1,000 mcg/mL injection solution RxNorm: 048222 Milliliter(s) Inj 05/13/2015 05/13/2015 Inactive Tricor 145 mg tablet RxNorm: 711036 1 Tablet(s) PO daily TAKE ONE TABLET BY MOUTH ONCE A DAY 05/07/2015 05/06/2015 Inactive Tricor 145 mg tablet RxNorm: 143965 1 Tablet(s) PO daily TAKE ONE TABLET BY MOUTH ONCE A DAY 05/07/2015 01/31/2016 Inactive Tricor 145 mg tablet RxNorm: 677976 TAKE ONE TABLET BY MOUTH ONCE A DAY 05/06/2015 05/06/2015 Inactive Byetta 10 mcg/dose(250 mcg/mL)2.4 mL subcutaneous pen injector RxNorm: 759094 Microgram(s) SQ 10mcg twice daily ( start after 5mcg dose is complete) 04/01/2015 03/25/2016 Inactive Byetta 5 mcg/dose (250 mcg/mL)1.2 mL subcutaneous pen injector RxNorm: 605891 Microgram(s) SQ 5mcg twice daily x 1 month 03/04/2015 04/02/2015 Inactive Byetta 10 mcg/dose(250 mcg/mL)2.4 mL subcutaneous pen injector RxNorm: 945661 Microgram(s) SQ 10mcg twice daily ( start after 5mcg dose is complete) 03/04/2015 03/31/2015 Inactive Byetta 5 mcg/dose (250 mcg/mL)1.2 mL subcutaneous pen injector RxNorm: 169526 Microgram(s) SQ 5mcg twice daily x 1 month 03/04/2015 03/03/2015 Inactive Byetta 10 mcg/dose(250 mcg/mL)2.4 mL subcutaneous pen injector RxNorm: 171325 Microgram(s) SQ 10mcg twice daily ( start after 5mcg dose is complete) 03/04/2015 03/03/2015 Inactive cyanocobalamin (vit B-12) 1,000 mcg/mL injection solution RxNorm: 766639 Milliliter(s) Inj 02/23/2015 02/23/2015 Inactive cyanocobalamin (vit B-12) 1,000 mcg/mL injection solution RxNorm: 712398 Milliliter(s) Inj 01/08/2015 01/08/2015 Inactive simvastatin 20 mg tablet RxNorm: 242135 TAKE ONE TABLET BY MOUTH AT BEDTIME 01/07/2015 10/03/2015 Inactive Lortab 5 mg-500 mg tablet RxNorm: 254483 1-2 Tablet(s) PO Q4 PRN as needed q 4- 6hrs prn pain 12/15/2014 08/02/2015 Inactive Lortab 5 mg-500 mg tablet RxNorm: 865385 1-2 Tablet(s) PO Q4 PRN as needed q 4- 6hrs prn pain 12/15/2014 08/02/2015 Inactive amlodipine 5 mg tablet RxNorm: 223637 TAKE ONE TABLET BY MOUTH TWICE A DAY 12/14/2014 12/13/2014 Inactive amlodipine 5 mg tablet RxNorm: 729582 TAKE ONE TABLET BY MOUTH TWICE A DAY 12/14/2014 03/13/2015 Inactive cyanocobalamin (vit B-12) 1,000 mcg/mL injection solution RxNorm: 495410 Milliliter(s) Inj 12/08/2014 12/08/2014 Inactive Synthroid 50 mcg tablet RxNorm: 147993 TAKE ONE TABLET BY MOUTH EVERY DAY. 10/29/2014 04/26/2015 Inactive Lasix 20 mg tablet RxNorm: 004479 Tablet(s) TAKE ONE TABLET BY MOUTH EVERY DAY NEEDED FOR SWELLING. TAKE POTASSIUM WITH EACH DOSE 201405/25/2015 Inactive potassium chloride ER 20 mEq tablet,extended release(part/ cryst) RxNorm: 796800 Tablet(s) TAKE ONE TABLET BY MOUTH EVERY DAY WHEN YOU TAKE LASIX (FUROSEMIDE) 10/28/2014 05/25/2015 Inactive cyanocobalamin (vit B-12) 1,000 mcg/mL injection solution RxNorm: 843733 Milliliter(s) Inj 10/26/2014 10/26/2014 Inactive OneTouch Ultra Test strips RxNorm: TEST TWO TIMES A DAY 201405/10/2028 Active OneTouch Ultra Test strips RxNorm: 1 Miscellaneous BID 201410/21/2014 Inactive dx: 250.02 Victoza 2-J Luis 0.6 mg/0.1 mL (18 mg/3 mL) subcutaneous pen injector RxNorm: 524610 1.8 Milligram(s) SQ daily 09/24/201402/22 Inactive cyanocobalamin (vit B-12) 1,000 mcg/mL injection solution RxNorm: 322836 Milliliter(s) Inj 09/24/2014 09/24/2014 Inactive Tenex 1 mg tablet RxNorm: 974324 1 Tablet(s) PO daily TAKE ONE TABLET BY MOUTH EVERY DAY 09/24/2014 10/03/2015 Inactive Lopressor 100 mg tablet RxNorm: 265284 TAKE ONE TABLET BY MOUTH EVERY DAY 09/14/2014 06/10/2015 Inactive Lopressor 100 mg tablet RxNorm: 537664 1 Tablet(s) PO daily TAKE ONE TABLET BY MOUTH EVERY DAY 09/14/2014 09/13/2014 Inactive cyanocobalamin (vit B-12) 1,000 mcg/mL injection solution RxNorm: 317781 Milliliter(s) Inj 08/24/2014 08/24/2014 Inactive [SAVINGS FOR UNINSURED PATIENTS - - BIN:[id number], PCN: [id number], Group: [id number], ID# [id number], Process claim through [facility], for questions: . THIS IS NOT INSURANCE.] Victoza 2-J Luis 0.6 mg/0.1 mL (18 mg/3 mL) subcutaneous pen injector RxNorm: 949292 1.2 Milligram(s) SQ daily 08/05/201409/23 Inactive glipizide 10 mg tablet RxNorm: 371754 TAKE ONE TABLET BY MOUTH TWICE A DAY 07/28/2014 05/23/2015 Inactive Tenex 1 mg tablet RxNorm: 322625 TAKE ONE TABLET BY MOUTH EVERY DAY 07/02/2014 07/01/2014 Inactive Tenex 1 mg tablet RxNorm: 935000 TAKE ONE TABLET BY MOUTH EVERY DAY 07/02/2014 09/23/2014 Inactive spironolactone 25 mg tablet RxNorm: 821859 TAKE ONE TABLET BY MOUTH TWICE A DAY 07/02/2014 04/27/2015 Inactive spironolactone 25 mg tablet RxNorm: 635989 Tablet(s) PO TAKE ONE TABLET BY MOUTH TWICE A DAY 06/30/2014 07/01/2014 Inactive Tenex 1 mg tablet RxNorm: 452228 Tablet(s) PO TAKE ONE TABLET BY MOUTH EVERY DAY 06/30/2014 07/01/2014 Inactive Lortab 5 mg-500 mg tablet RxNorm: 851089 1-2 Tablet(s) PO Q4 PRN as needed q 4- 6hrs prn pain 06/22/2014 12/14/2014 Inactive metformin ER 500 mg tablet,extended release 24 hr RxNorm: 772779 Tablet(s) PO TAKE TWO TABLETS BY MOUTH TWICE A DAY 06/05/2014 06/13/2015 Inactive [SAVINGS FOR UNINSURED PATIENTS -- BIN:[id number], PCN: [id number], Group: [id number], ID# [id number], Process claim through [facility], for questions: . THIS IS NOT INSURANCE.] cyanocobalamin (vit B-12) 1,000 mcg/mL injection solution RxNorm: 217987 1 Milliliter(s) Inj monthly 06/01/201406/01 Inactive Kenalog 40 mg/mL suspension for injection RxNorm: 9654867 1 Milliliter(s) Inj 05/11/2014 05/11/2014 Inactive cyanocobalamin (vit B-12) 1,000 mcg/mL injection kit RxNorm: 062140 Milliliter(s) Inj 04/27/2014 04/27/2014 Inactive amlodipine 5 mg tablet RxNorm: 452914 TAKE ONE TABLET BY MOUTH TWICE A DAY 04/02/2014 07/30/2014 Inactive cyanocobalamin (vit B-12) 1,000 mcg/mL injection kit RxNorm: 479337 1 Milliliter(s ) Inj 03/24/2014 03/24/2014 Inactive [SAVINGS FOR UNINSURED PATIENTS -- BIN:[id number] , PCN: [id number], Group: [id number], ID# [id number], Process claim through [facility], for questions: . THIS IS NOT INSURANCE.] cyanocobalamin (vit B-12) 1,000 mcg/mL injection solution RxNorm: 516923 1 Milliliter(s) Inj 03/24/2014 03/24/2014 Inactive Synthroid 50 mcg tablet RxNorm: 792768 TAKE ONE TABLET BY MOUTH EVERY DAY. 03/01/2014 09/26/2014 Inactive Lasix 20 mg tablet RxNorm: 762089 TAKE ONE TABLET BY MOUTH EVERY DAY NEEDED FOR SWELLING. TAKE POTASSIUM WITH EACH DOSE 03/01/2014 09/26/2014 Inactive potassium chloride ER 20 mEq tablet,extended release(part/ cryst) RxNorm: 392124 TAKE ONE TABLET BY MOUTH EVERY DAY WHEN YOU TAKE LASIX (FUROSEMIDE) 03/01/2014 09/26/2014 Inactive cyanocobalamin (vit B-12) 1,000 mcg/mL injection solution RxNorm: 999392 1 Milliliter(s) Inj 02/24/2014 02/24/2014 Inactive Tricor 145 mg tablet RxNorm: 177281 TAKE ONE TABLET BY MOUTH EVERY DAY 02/16/2014 02/15/2014 Inactive Victoza 2-J Luis 0.6 mg/0.1 mL (18 mg/3 mL) subcutaneous pen injector RxNorm: 245370 1.2 Milligram(s) SQ daily 02/16/201408/04 Inactive Tricor 145 mg tablet RxNorm: 456367 TAKE ONE TABLET BY MOUTH EVERY DAY 02/16/2014 06/15/2014 Inactive Synthroid 50 mcg tablet RxNorm: 898026 TAKE ONE TABLET BY MOUTH EVERY DAY. 02/02/2014 03/03/2014 Inactive Synthroid 50 mcg tablet RxNorm: 422871 TAKE ONE TABLET BY MOUTH EVERY DAY. 02/02/2014 02/01/2014 Inactive simvastatin 20 mg tablet RxNorm: 404210 TAKE ONE TABLET BY MOUTH AT BEDTIME 01/12/2014 01/06/2015 Inactive cyanocobalamin (vit B-12) 1,000 mcg/mL injection solution RxNorm: 254129 Milliliter(s) Inj 01/09/2014 01/09/2014 Inactive Lortab 5 mg-500 mg tablet RxNorm: 172864 1-2 Tablet(s) PO Q4 PRN q 4-6hrs prn pain 12/23/2013 No Stop Date Active Lasix 20 mg tablet RxNorm: 087863 Tablet(s) PO TAKE ONE TABLET BY MOUTH EVERY DAY NEEDED FOR SWELLING. TAKE POTASSIUM WITH EACH DOSE 12/201302/28/2014 Inactive potassium chloride ER 20 mEq tablet,extended release(part/ cryst) RxNorm: 709803 Tablet(s) PO TAKE ONE TABLET BY MOUTH EVERY DAY WHEN YOU TAKE LASIX (FUROSEMIDE ) 12/02/2013 02/28/2014 Inactive Lomotil 2.5 mg-0.025 mg tablet RxNorm: 7966763 Tablet(s) PO TAKE ONE TABLET BY MOUTH EVERY 8 HOURS NEEDED 11/27/2013 No Stop Date Active (Appended: Controlled substance eRx refill - RxReferenceNumber: [id number]) Lomotil 2.5 mg-0.025 mg tablet RxNorm: 7758113 1 Tablet(s) PO Q8 PRN 11/27/2013 05/25/2014 Inactive cyanocobalamin (vit B-12) 1,000 mcg/mL injection solution RxNorm: 808074 1 Milliliter(s) Inj 11/27/2013 11/27/2013 Inactive Vitamin B-12 1,000 mcg/mL injection solution RxNorm: 137634 1 Milliliter(s) Inj monthly 11/24/2013 11/18/2014 Inactive ok to give multidose if available Synthroid 50 mcg tablet RxNorm: 938853 Tablet(s) PO TAKE ONE TABLET BY MOUTH EVERY DAY. 10/31/2013 02/01/2014 Inactive simvastatin 20 mg tablet RxNorm: 648669 Tablet(s) PO TAKE ONE TABLET BY MOUTH AT BEDTIME 10/10/2013 01/11/2014 Inactive Vitamin B-12 1,000 mcg/mL injection solution RxNorm: 226791 1 Milliliter(s) Inj monthly 09/30/2013 09/29/2013 Inactive ok to give multidose if available Vitamin B-12 1,000 mcg/mL injection solution RxNorm: 275215 1 Milliliter(s) Inj monthly 09/30/2013 11/23/2013 Inactive ok to give multidose if available Vitamin B-12 1,000 mcg/mL injection solution RxNorm: 858272 1 Milliliter(s) Inj 09/18/2013 09/18/2013 Inactive Lopressor 100 mg tablet RxNorm: 604424 Tablet(s) PO TAKE ONE TABLET BY MOUTH EVERY DAY 09/15/2013 09/13/2014 Inactive Vitamin B-12 1,000 mcg/mL injection solution RxNorm: 142544 1 Milliliter(s) Inj 08/22/2013 08/22/2013 Inactive glipizide 10 mg tablet RxNorm: 437847 Tablet(s) PO TAKE ONE TABLET BY MOUTH TWICE A DAY 08/15/2013 07/27/2014 Inactive Tenex 1 mg tablet RxNorm: 705734 Tablet(s) PO TAKE ONE TABLET BY MOUTH EVERY DAY 08/05/2013 06/29/2014 Inactive potassium chloride ER 20 mEq tablet,extended release(part/ cryst) RxNorm: 595017 Tablet(s) PO TAKE ONE TABLET BY MOUTH EVERY DAY WHEN YOU TAKE LASIX (FUROSEMIDE ) 07/31/2013 12/01/2013 Inactive spironolactone 25 mg tablet RxNorm: 086567 Tablet(s) PO TAKE ONE TABLET BY MOUTH TWICE A DAY 07/31/2013 06/29/2014 Inactive Lasix 20 mg tablet RxNorm: 151299 Tablet(s) PO TAKE ONE TABLET BY MOUTH EVERY DAY NEEDED FOR SWELLING. TAKE POTASSIUM WITH EACH DOSE 08/201312/01/2013 Inactive Vitamin B-12 1,000 mcg/mL injection solution RxNorm: 772605 Milliliter(s) Inj 07/28/2013 07/28/2013 Inactive Synthroid 50 mcg tablet RxNorm: 012608 Tablet(s) PO TAKE ONE TABLET BY MOUTH EVERY DAY. PATIENT DUE FOR TSH LEVEL LAB 06/30/2013 06/29/2013 Inactive Synthroid 50 mcg tablet RxNorm: 355381 Tablet(s) PO TAKE ONE TABLET BY MOUTH EVERY DAY. PATIENT DUE FOR TSH LEVEL LAB 06/30/2013 10/30/2013 Inactive potassium chloride ER 20 mEq tablet,extended release(part/ cryst) RxNorm: 836647 Tablet(s) PO TAKE ONE TABLET BY MOUTH EVERY DAY WHEN YOU TAKE LASIX (FUROSEMIDE ) 06/23/2013 07/30/2013 Inactive Lasix 20 mg tablet RxNorm: 977146 Tablet(s) PO TAKE ONE TABLET BY MOUTH EVERY DAY NEEDED FOR SWELLING. TAKE POTASSIUM WITH EACH DOSE 07/30/2013 Inactive amlodipine 5 mg tablet RxNorm: 781696 Tablet(s) PO TAKE ONE TABLET BY MOUTH TWICE A DAY 06/17/2013 04/01/2014 Inactive metformin ER 500 mg tablet,extended release 24 hr RxNorm: 816907 Tablet(s) PO TAKE TWO TABLETS BY MOUTH TWICE A DAY 05/26/2013 06/04/2014 Inactive metformin ER 500 mg tablet,extended release 24 hr RxNorm: 113392 Tablet(s) PO TAKE TWO TABLETS BY MOUTH TWICE A DAY 05/26/2013 05/25/2013 Inactive Vitamin B-12 1,000 mcg/mL injection solution RxNorm: 421516 1 Milliliter(s) Inj 05/21/2013 05/21/2013 Inactive Vitamin B-12 1,000 mcg/mL Injection RxNorm: 420475 Milliliter(s) Inj 04/23/2013 04/23/2013 Inactive Influenza Virus Vaccine 0.5 mL RxNorm: IM 04/23/2013 04/23/2013 Inactive Synthroid 50 mcg tablet RxNorm: 203335 Tablet(s) PO TAKE ONE TABLET BY MOUTH EVERY DAY. PATIENT DUE FOR TSH LEVEL LAB 04/17/2013 06/29/2013 Inactive Lasix 20 mg tablet RxNorm: 302461 Tablet(s) PO TAKE ONE TABLET BY MOUTH EVERY DAY NEEDED FOR SWELLING. TAKE POTASSIUM WITH EACH DOSE 06/22/2013 Inactive potassium chloride ER 20 mEq tablet,extended release(part/ cryst) RxNorm: 8874025 Tablet(s) PO TAKE ONE TABLET BY MOUTH EVERY DAY WHEN YOU TAKE LASIX (FUROSEMIDE ) 04/17/2013 06/22/2013 Inactive simvastatin 20 mg tablet RxNorm: 463395 Tablet(s) PO TAKE ONE TABLET BY MOUTH AT BEDTIME 04/10/2013 10/09/2013 Inactive Vitamin B-12 1,000 mcg/mL Injection RxNorm: 021742 1 Milliliter(s) Inj 03/24/2013 03/24/2013 Inactive Lopressor 100 mg tablet RxNorm: 390395 Tablet(s) PO TAKE ONE TABLET BY MOUTH EVERY DAY 03/18/2013 09/14/2013 Inactive cyanocobalamin (vitamin B-12) 1,000 mcg/mL Injection RxNorm: 659993 Milliliter(s) Inj 02/20/2013 02/20/2013 Inactive Tricor 145 mg tablet RxNorm: 826750 Tablet(s) PO TAKE ONE TABLET BY MOUTH EVERY DAY 02/14/2013 02/15/2014 Inactive Vitamin B-12 1,000 mcg/mL Injection RxNorm: 126294 1 Milliliter(s) Inj 01/22/2013 01/22/2013 Inactive potassium chloride ER 20 mEq tablet,extended release(part/ cryst) RxNorm: 3101467 1 Tablet(s) PO QDAY PRN take when taking prn lasix 201204/16/2013 Inactive Lasix 20 mg tablet RxNorm: 310337 1 Tablet(s) PO QDAY PRN daily prn swelling - to take kcl with lasix 01/22/20132012 Inactive cyanocobalamin (vitamin B-12) 1,000 mcg/mL Injection RxNorm: 613114 Milliliter(s) Inj 12/19/2012 12/19/2012 Inactive cyanocobalamin (vitamin B-12) 1,000 mcg/mL Injection RxNorm: 951972 Milliliter(s) Inj 11/20/2012 11/20/2012 Inactive Diflucan 150 mg tablet RxNorm: 979744 1 Tablet(s) PO daily 11/21/2012 Inactive Synthroid 50 mcg tablet RxNorm: 405539 Tablet(s) PO TAKE ONE TABLET BY MOUTH EVERY DAY. PATIENT DUE FOR TSH LEVEL LAB 11/18/2012 04/16/2013 Inactive Keflex 500 mg capsule RxNorm: 750258 1 Capsule(s) PO TID 201211/19/2012 Inactive Keflex 500 mg capsule RxNorm: 081470 1 Capsule(s) PO TID 201211/12/2012 Inactive Byetta 10 mcg/0.04 mL per dose Sub-Q Pen Injector RxNorm: 729664 Pen Injector SQ DIAL AND INJECT SUBCUTANEOUSLY 10 MCG TWICE DAILY WITHIN 60 MINUTES BEFORE MORNING AND EVENING MEALS. DO NOT ADMINISTER AFTER A MEAL. 04/03/2014 Inactive cyanocobalamin (vitamin B-12) 1,000 mcg/mL Injection RxNorm: 092288 1 Milliliter(s ) Inj 10/23/2012 10/23/2012 Inactive Lortab 5 mg-500 mg tablet RxNorm: 945977 1-2 Tablet(s) PO Q4 PRN q 4-6hrs prn pain 10/02/2012 12/22/2013 Inactive cyanocobalamin (vitamin B-12) 1,000 mcg/mL Injection RxNorm: 257851 Milliliter(s) Inj 09/16/2012 09/16/2012 Inactive Vitamin B-12 1,000 mcg/mL Injection RxNorm: 437374 1 Milliliter(s) Inj 08/15/2012 08/15/2012 Inactive glipizide 10 mg tablet RxNorm: 210362 Tablet(s) PO TAKE ONE TABLET BY MOUTH TWICE A DAY 08/12/2012 08/14/2013 Inactive Tenex 1 mg tablet RxNorm: 366940 Tablet(s) PO TAKE ONE TABLET BY MOUTH EVERY DAY 08/12/2012 08/04/2013 Inactive Kenalog 40 mg/mL Susp for Injection RxNorm: 5599599 1 Milliliter(s) Inj 08/06/2012 01/22/2013 Inactive spironolactone 25 mg tablet RxNorm: 023829 Tablet(s) PO TAKE ONE TABLET BY MOUTH TWICE A DAY 07/29/2012 07/30/2013 Inactive cefdinir 300 mg capsule RxNorm: 234582 1 Capsule(s) PO BID 08/01/2012 Inactive cefdinir 300 mg capsule RxNorm: 029336 1 Capsule(s) PO BID 07/25/2012 Inactive Vitamin B-12 1,000 mcg/mL Injection RxNorm: 768020 1 Milliliter(s) Inj 07/19/2012 07/19/2012 Inactive simvastatin 20 mg tablet RxNorm: 010916 Tablet(s) PO TAKE ONE TABLET BY MOUTH AT BEDTIME 07/08/2012 04/09/2013 Inactive simvastatin 20 mg tablet RxNorm: 652591 Tablet(s) PO TAKE ONE TABLET BY MOUTH AT BEDTIME 07/08/2012 10/07/2015 Inactive Synthroid 50 mcg tablet RxNorm: 778924 1 Tablet(s) PO daily 12/201110/31/2012 Inactive Please advise patient due for TSH level. amlodipine 5 mg tablet RxNorm: 549942 1 Tablet(s) PO BID 201112/15/2012 Inactive amlodipine 5 mg tablet RxNorm: 420978 1 Tablet(s) PO BID 201106/18/2012 Inactive Vitamin B-12 1,000 mcg/mL Injection RxNorm: 736320 Milliliter(s) Inj 06/19/2012 06/19/2012 Inactive Lopressor 100 mg tablet RxNorm: 466360 Tablet(s) PO 06/17/2012 03/17/2013 Inactive TAKE ONE TABLET BY MOUTH EVERY DAY Vitamin B-12 1,000 mcg/mL Injection RxNorm: 368338 Milliliter(s) Inj 05/22/2012 05/22/2012 Inactive Synthroid 50 mcg tablet RxNorm: 419757 1 Tablet(s) PO daily 06/11/2012 Inactive Please advise patient due for TSH level. Diflucan 150 mg tablet RxNorm: 111319 1 Tablet(s) PO daily 11/18/2012 Inactive metformin ER 500 mg tablet,extended release 24 hr RxNorm: 234297 2 Tablet(s) PO BID 04/25/2012 05/19/2013 Inactive Vitamin B-12 1,000 mcg/mL Injection RxNorm: 615316 Milliliter(s) Inj 04/22/2012 04/22/2012 Inactive Vitamin B-12 1,000 mcg/mL Injection RxNorm: 559472 Milliliter(s) Inj 03/19/2012 03/19/2012 Inactive Vitamin B-12 1,000 mcg/mL Injection RxNorm: 588627 Milliliter(s) Inj 02/15/2012 02/15/2012 Inactive Tricor 145 mg tablet RxNorm: 937764 1 Tablet(s) PO daily 201102/13/2013 Inactive Vitamin B-12 1,000 mcg/mL Injection RxNorm: 725597 Milliliter(s) Inj 01/18/2012 01/18/2012 Inactive Kenalog 40 mg/mL Susp for Injection RxNorm: 6281087 1 Milliliter(s) Inj 12/28/2011 12/28/2011 Inactive Vitamin B-12 1,000 mcg/mL Injection RxNorm: 612187 Milliliter(s) Inj 12/20/2011 12/20/2011 Inactive omeprazole 20 mg Cap, delayed release RxNorm: 420242 1 Capsule(s) PO daily 12/07/2011 11/30/2012 Inactive may take bid if nec cyanocobalamin (vitamin B-12) 1,000 mcg/mL Injection RxNorm: 425397 1 Milliliter(s ) Inj 11/07/2011 11/07/2011 Inactive cyanocobalamin (vitamin B-12) 1,000 mcg/mL Injection RxNorm: 309882 1 Milliliter(s ) Inj 10/03/2011 10/03/2011 Inactive Synthroid 50 mcg tablet RxNorm: 163784 1 Tablet(s) PO daily 03/08/2012 Inactive Byetta 10 mcg/0.04 mL per dose Sub-Q Pen Injector RxNorm: 380116 10 Microgram(s) SQ BID 08/29/2011 09/21/2012 Inactive metformin ER 500 mg tablet,extended release 24 hr RxNorm: 569019 2 Tablet(s) PO BID 08/15/2011 02/10/2012 Inactive cyanocobalamin (vitamin B-12) 1,000 mcg/mL Injection RxNorm: 373835 1 Milliliter(s ) Inj 07/28/2011 07/28/2011 Inactive NovoFine 30 Needle RxNorm: 1 Miscellaneous BID 07/28/2011 03/18/2013 Inactive OneTouch Ultra Test strips RxNorm: 1 Miscellaneous BID 201003/18/2013 Inactive guanfacine 1 mg Tab RxNorm: 955001 1 Tablet(s) PO daily 201007/10/2012 Inactive glipizide 10 mg tablet RxNorm: 447222 1 Tablet(s) PO BID 201008/09/2012 Inactive Tenex 1 mg tablet RxNorm: 023865 1 Tablet(s) PO daily 201008/09/2012 Inactive lisinopril 20 mg tablet RxNorm: 344681 1 Tablet(s) PO daily pt 07/04/2011 04/21/2012 Inactive pt may have #90 with year if insurance pays spironolactone 25 mg tablet RxNorm: 714974 1 Tablet(s) PO BID 07/03/2011 07/26/2012 Inactive simvastatin 20 mg Tab RxNorm: 742846 1 Tablet(s) PO QHS 201006/28/2011 Inactive cyanocobalamin (vitamin B-12) 1,000 mcg/mL Injection RxNorm: 644510 Milliliter(s) Inj 06/29/2011 06/29/2011 Inactive simvastatin 20 mg tablet RxNorm: 868305 1 Tablet(s) PO QHS 07/201006/22/2012 Inactive Lopressor 100 mg tablet RxNorm: 700881 1 Tablet(s) PO daily 06/16/2012 Inactive ketorolac 60 mg/2 mL IM RxNorm: 763403 Milliliter(s) IM 201005/23/2011 Inactive cyanocobalamin (vitamin B-12) 1,000 mcg/mL Injection RxNorm: 137305 Milliliter(s) Inj 05/23/2011 05/23/2011 Inactive Influenza Virus Vaccine 0.5 mL RxNorm: IM 04/26/2011 04/26/2011 Inactive Vitamin B-12 1,000 mcg/mL Injection RxNorm: 066330 Milliliter(s) Inj 04/26/2011 04/26/2011 Inactive Lomotil 2.5 mg-0.025 mg tablet RxNorm: 0393239 1 Tablet(s) PO Q8 PRN 04/26/2011 11/27/2013 Inactive amiodarone 200 mg tablet RxNorm: 597059 1 Tablet(s) PO daily No Start Date Active atorvastatin 10 mg tablet RxNorm: 767241 1 Tablet(s) PO QHS No Start Date Active metoprolol succinate ER 100 mg tablet,extended release 24 hr RxNorm: 670033 1 Tablet(s) PO daily No Start Date Active warfarin 2 mg tablet RxNorm: 619668 1 Tablet(s) PO daily No Start Date Active clopidogrel 75 mg tablet RxNorm: 882863 1 Tablet(s) PO daily No Start Date Active aspirin 81 mg Tab, Delayed Release RxNorm: 372581 1 Tablet(s) PO daily No Start Date Active Vitamin D 1,000 unit Tab RxNorm: 155830 1 Tablet(s) PO daily No Start Date Active Tricor 145 mg Tab RxNorm: 415565 1 Tablet(s) PO daily No Start Date 02/07/2012 Inactive Synthroid 50 mcg Tab RxNorm: 935341 1 Tablet(s) PO daily No Start Date 09/10/2011 Inactive lisinopril 20 mg tablet RxNorm: 918442 1 Tablet(s) PO daily No Start Date 06/18/2012 Inactive Lortab 5 mg-500 mg tablet RxNorm: 841287 1 Tablet(s) PO Q4 PRN q 4hrs prn pain No Start Date 10/01/2012 Inactive Tenex 1 mg Tab RxNorm : 831647 1 Tablet(s) PO daily No Start Date 07/16/2011 Inactive lisinopril 40 mg tablet RxNorm: 334383 Tablet(s) PO No Start Date 05/21/2012 Inactive Voltaren 1 % Topical Gel RxNorm: 596225 TOP as directed No Start Date 11/29/2015 Inactive iron 325 mg (65 mg iron) Tab RxNorm: 314623 1 Tablet(s) PO daily No Start Date 02/22/2015 Inactive Zithromax Z-J Luis 250 mg tablet RxNorm: 374817 Tablet(s) PO UD No Start Date 01/22/2013 Inactive Byetta 10 mcg/0.04 mL per dose Sub-Q Pen Injector RxNorm: 643441 Milliliter(s) SQ BID No Start Date 08/28/2011 Inactive cyanocobalamin (vitamin B-12) 1,000 mcg/mL Injection RxNorm: 689083 1 Milliliter(s ) Inj month No Start Date 11/30/2015 Inactive Tessalon 200 mg capsule RxNorm: 855909 1 Capsule(s) PO TID PRN No Start Date 01/21/2013 Inactive Victoza 2-J Luis 0.6 mg/0.1 mL (18 mg/3 mL) subcutaneous pen injector RxNorm: 900892 1.2 Milligram(s) SQ daily No Start Date Inactive simvastatin 20 mg Tab RxNorm: 215976 1 Tablet(s) PO QHS No Start Date 06/28/2011 Inactive spironolactone 25 mg Tab RxNorm: 627188 1 Tablet(s) PO BID No Start Date 07/02/2011 Inactive Diflucan 150 mg tablet RxNorm: 385500 1 Tablet(s) PO daily No Start Date 04/24/2012 Inactive guanfacine 1 mg Tab RxNorm: 477569 1 Tablet(s) PO daily No Start Date 07/16/2011 Inactive Ativan 1 mg Tab RxNorm : 292822 1/2-1 Tablet(s) PO Q6 PRN 1/2 - 1 tab q 6 hours if needed for anxiety No Start Date 2013 Inactive metformin ER 500 mg 24 hr Tab RxNorm: 165435 2 Tablet(s) PO BID No Start Date 08/14/2011 Inactive Lopressor 100 mg Tab RxNorm: 683684 1 Tablet(s) PO daily No Start Date 06/26/2011 Inactive glipizide 10 mg Tab RxNorm: 974413 1 Tablet(s) PO BID No Start Date 07/16/2011 Inactive KCL 10 meq RxNorm: PO as directed daily when taking lasix No Start Date 01/22/2013 Inactive lisinopril 20 mg Tab RxNorm: 858231 1 Tablet(s) PO daily No Start Date 07/03/2011 Inactive One Touch Ultra Test Strips RxNorm: 1 Miscellaneous BID No Start Date 07/27/2011 Inactive omeprazole 20 mg Cap, delayed release RxNorm: 937186 1 Capsule(s) PO BID No Start Date 12/06/2011 Inactive Lasix 20 mg tablet RxNorm: 756936 Tablet(s) PO as directed daily prn swelling - to take kcl with lasix No Start Date 01/21 Inactive niacin 500 mg Tab RxNorm: 162701 1 Tablet(s) PO QHS No Start Date 04/03/2014 Inactive Medication Administered Medication Codes Instructions Start Date Status cyanocobalamin (vit B-12) 1,000 mcg/mL injection solution RxNorm: 276008 1Milliliter 07/18/2017 No longer Active cyanocobalamin (vit B-12) 1,000 mcg/mL injection solution RxNorm: 316309 1Milliliter 06/18/2017 No longer Active Kenalog 40 mg/mL suspension for injection RxNorm: 6980328 1Milliliter 06/18/2017 No longer Active cyanocobalamin (vit B-12) 1,000 mcg/mL injection solution RxNorm: 374562 1Milliliter 05/09/2017 No longer Active cyanocobalamin (vit B-12) 1,000 mcg/mL injection solution RxNorm: 093870 1Milliliter 04/04/2017 No longer Active Kenalog 40 mg/mL suspension for injection RxNorm: 5096659 1Milliliter 02/23/2017 No longer Active cyanocobalamin (vit B-12) 1,000 mcg/mL injection solution RxNorm: 412395 Milliliter 01/23/2017 No longer Active cyanocobalamin (vit B-12) 1,000 mcg/mL injection solution RxNorm: 515823 1Milliliter 11/14/2016 No longer Active Kenalog 40 mg/mL suspension for injection RxNorm: 6809736 1Milliliter 09/07/2016 No longer Active cyanocobalamin (vit B-12) 1,000 mcg/mL injection solution RxNorm: 825191 1Milliliter 08/29/2016 No longer Active cyanocobalamin (vit B-12) 1,000 mcg/mL injection solution RxNorm: 628974 Milliliter 06/12/2016 No longer Active ceftriaxone 500 mg solution for injection RxNorm: 8833337 2Milliliter 05/04/2016 No longer Active cyanocobalamin (vit B-12) 1,000 mcg/mL injection solution RxNorm: 539115 Milliliter 05/04/2016 No longer Active cyanocobalamin (vit B-12) 1,000 mcg/mL injection solution RxNorm: 573592 Milliliter 03/17/2016 No longer Active cyanocobalamin (vit B-12) 1,000 mcg/mL injection solution RxNorm: 456335 1Milliliter 02/15/2016 No longer Active cyanocobalamin (vit B-12) 1,000 mcg/mL injection solution RxNorm: 912202 Milliliter 01/19/2016 No longer Active cyanocobalamin (vit B-12) 1,000 mcg/mL injection solution RxNorm: 672746 1Milliliter 12/07/2015 No longer Active cyanocobalamin (vit B-12) 1,000 mcg/mL injection kit RxNorm : 496502 kit 09/06/2015 No longer Active ceftriaxone 500 mg solution for injection RxNorm: 2067781 09/06/2015 No longer Active ceftriaxone 500 mg solution for injection RxNorm: 5628748 07/05/2015 No longer Active Kenalog 40 mg/mL suspension for injection RxNorm: 3463333 Milliliter 07/05/2015 No longer Active cyanocobalamin (vit B-12) 1,000 mcg/mL injection solution RxNorm: 085109 Milliliter 06/28/2015 No longer Active cyanocobalamin (vit B-12) 1,000 mcg/mL injection solution RxNorm: 565259 Milliliter 05/13/2015 No longer Active cyanocobalamin (vit B-12) 1,000 mcg/mL injection solution RxNorm: 108605 Milliliter 02/23/2015 No longer Active cyanocobalamin (vit B-12) 1,000 mcg/mL injection solution RxNorm: 473474 Milliliter 01/08/2015 No longer Active cyanocobalamin (vit B-12) 1,000 mcg/mL injection solution RxNorm: 449685 Milliliter 12/08/2014 No longer Active cyanocobalamin (vit B-12) 1,000 mcg/mL injection solution RxNorm: 096923 Milliliter 10/26/2014 No longer Active cyanocobalamin (vit B-12) 1,000 mcg/mL injection solution RxNorm: 315304 Milliliter 09/24/2014 No longer Active cyanocobalamin (vit B-12) 1,000 mcg/mL injection solution RxNorm: 827751 Milliliter 08/24/2014 No longer Active cyanocobalamin (vit B-12) 1,000 mcg/mL injection solution RxNorm: 371736 1Milliliter 06/01/2014 No longer Active Kenalog 40 mg/mL suspension for injection RxNorm: 1122620 1Milliliter 05/11/2014 No longer Active cyanocobalamin (vit B-12) 1,000 mcg/mL injection kit RxNorm : 909113 Milliliter 04/27/2014 No longer Active cyanocobalamin (vit B-12) 1,000 mcg/mL injection kit RxNorm : 621884 1Milliliter 03/24/2014 No longer Active cyanocobalamin (vit B-12) 1,000 mcg/mL injection solution RxNorm: 549031 1Milliliter 03/24/2014 No longer Active cyanocobalamin (vit B-12) 1,000 mcg/mL injection solution RxNorm: 868046 1Milliliter 02/24/2014 No longer Active cyanocobalamin (vit B-12) 1,000 mcg/mL injection solution RxNorm: 117329 Milliliter 01/09/2014 No longer Active cyanocobalamin (vit B-12) 1,000 mcg/mL injection solution RxNorm: 219491 1Milliliter 11/27/2013 No longer Active Vitamin B-12 1,000 mcg/mL injection solution RxNorm: 357014 1Milliliter 09/18/2013 No longer Active Vitamin B-12 1,000 mcg/mL injection solution RxNorm: 750608 1Milliliter 08/22/2013 No longer Active Vitamin B-12 1,000 mcg/mL injection solution RxNorm: 041625 Milliliter 07/28/2013 No longer Active Vitamin B-12 1,000 mcg/mL injection solution RxNorm: 973943 1Milliliter 05/21/2013 No longer Active Influenza Virus Vaccine 0.5 mL RxNorm: 04/23/2013 No longer Active Vitamin B-12 1,000 mcg/mL Injection RxNorm: 003633 Milliliter 04/23/2013 No longer Active Vitamin B-12 1,000 mcg/mL Injection RxNorm: 837182 1Milliliter 03/24/2013 No longer Active cyanocobalamin (vitamin B-12) 1,000 mcg/mL Injection RxNorm : 630798 Milliliter 02/20/2013 No longer Active Vitamin B-12 1,000 mcg/mL Injection RxNorm: 247640 1Milliliter 01/22/2013 No longer Active cyanocobalamin (vitamin B-12) 1,000 mcg/mL Injection RxNorm : 341941 Milliliter 12/19/2012 No longer Active cyanocobalamin (vitamin B-12) 1,000 mcg/mL Injection RxNorm : 148359 Milliliter 11/20/2012 No longer Active cyanocobalamin (vitamin B-12) 1,000 mcg/mL Injection RxNorm : 045305 1Milliliter 10/23/2012 No longer Active cyanocobalamin (vitamin B-12) 1,000 mcg/mL Injection RxNorm : 252045 Milliliter 09/16/2012 No longer Active Vitamin B-12 1,000 mcg/mL Injection RxNorm: 215620 1Milliliter 08/15/2012 No longer Active Vitamin B-12 1,000 mcg/mL Injection RxNorm: 661612 1Milliliter 07/19/2012 No longer Active Vitamin B-12 1,000 mcg/mL Injection RxNorm: 789770 Milliliter 06/19/2012 No longer Active Vitamin B-12 1,000 mcg/mL Injection RxNorm: 247708 Milliliter 05/22/2012 No longer Active Vitamin B-12 1,000 mcg/mL Injection RxNorm: 593600 Milliliter 04/22/2012 No longer Active Vitamin B-12 1,000 mcg/mL Injection RxNorm: 441127 Milliliter 03/19/2012 No longer Active Vitamin B-12 1,000 mcg/mL Injection RxNorm: 725293 Milliliter 02/15/2012 No longer Active Vitamin B-12 1,000 mcg/mL Injection RxNorm: 665407 Milliliter 01/18/2012 No longer Active Kenalog 40 mg/mL Susp for Injection RxNorm: 9354482 1Milliliter 12/28/2011 No longer Active Vitamin B-12 1,000 mcg/mL Injection RxNorm: 696993 Milliliter 12/20/2011 No longer Active cyanocobalamin (vitamin B-12) 1,000 mcg/mL Injection RxNorm : 388881 1Milliliter 11/07/2011 No longer Active cyanocobalamin (vitamin B-12) 1,000 mcg/mL Injection RxNorm : 617233 1Milliliter 10/03/2011 No longer Active cyanocobalamin (vitamin B-12) 1,000 mcg/mL Injection RxNorm : 825573 1Milliliter 07/28/2011 No longer Active cyanocobalamin (vitamin B-12) 1,000 mcg/mL Injection RxNorm : 854758 Milliliter 06/29/2011 No longer Active ketorolac 60 mg/2 mL IM RxNorm: 512307 Milliliter 05/23/2011 No longer Active cyanocobalamin (vitamin B-12) 1,000 mcg/mL Injection RxNorm : 678564 Milliliter 05/23/2011 No longer Active Influenza Virus Vaccine 0.5 mL RxNorm: 04/26/2011 No longer Active Vitamin B-12 1,000 mcg/mL Injection RxNorm: 016405 Milliliter 04/26/2011 No longer Active Immunizations Vaccine Codes Date Status Influenza CVX: 141 04/25/2017 completed Influenza CVX: 141 04/03/2014 completed Influenza CVX: 141 04/23/2013 completed Influenza CVX: 141 04/22/2012 completed Influenza CVX: 141 04/26/2011 completed Assessments Condition Codes Effective Dates Other vitamin B12 deficiency anemias ICD-10: D51.8 [...] atrial fibrillation ICD-10: I48.2 ICD-9: 427.31 04/16/2017 Vitamin B12 deficiency anemia, unspecified ICD-10: D51.9 ICD-9: 281.1 04/04/2017 Sacroiliitis, not elsewhere classified ICD-10: M46.1 ICD-9: [...] 28.4 pg 06/07/2017 Cbc With Differential Ord2 [place]% 12.6 % 06/07/2017 Cbc With Differential Ord2 [...] 1.23 K/ul 06/07/2017 Cbc With Differential Ord2 [place] ABS# 0.7 K/ul 06/07/2017 Cbc With Differential Ord2 Eos ABS# 0.2 K/ul 06/07/2017 Cbc With Differential Ord2 Baso ABS# 0.0 K/ul 06/07/2017 Culture Urine [id number] URINE CULTURE SEE NOTES 05/08/2016 Culture Urine [id number] Continued Results 05/08/2016 Urine Culture Ucult Complete >100,000 col/ml aerobic growth sent to ref lab 05/05/2016 IRON TEST [id number] IRON TEST 44 UG/DL 07/28/2013 TSH 1304464 TSH 2.104 uIU/ML 07/28/2013 CBC [id number] WBC 6.2 10e9/L 07/28/2013 CBC [id number] RBC 3.95 10e12/L 07/28/2013 CBC 9644764 HGB 11.2 g/dL 07/28/2013 CBC 8535700 HCT DET 34.2 % 07/28/2013 CBC 6650101 MCV 86.6 fL 07/28/2013 CBC 6630631 MCH 28.4 pg 07/28/2013 CBC 6957505 MCHC 32.7 g/dL 07/28/2013 CBC 4083105 PLT 231 10e9/L 07/28/2013 CBC 5777189 MPV 10.9 fL 07/28/2013 CBC 7755812 JAZMYN % 61.0 % 07/28/2013 CBC 1825962 LY % 27.8 % 07/28/2013 CBC 1947698 MON % 8.0 % 07/28/2013 CBC 8464193 EOS % 2.4 % 07/28/2013 CBC 3807526 BASO % 0.8 % 07/28/2013 CBC 7850305 RDW 14.0 % 07/28/2013 CBC 7478891 ABS JAZMYN 3.78 10e9/L 07/28/2013 CBC 4800908 ABS LYMPH 1.72 10e9/L 07/28/2013 CBC 8279401 ABS MONO 0.50 10e9/L 07/28/2013 CBC 5553213 ABS EOS 0.15 10e9/L 07/28/2013 CBC [id number] ABS BASO 0.05 10e9/L 07/28/2013 CBC 2144971 RDW-SD 42.9 fL 07/28/2013 %SAT/TIBC 9087398 TIBC 439 UG/DL 07/28/2013 %SAT/TIBC 9677076 % SATURAT 10 % 07/28/2013 %SAT/TIBC 2154556 UIBC 395 MCG/DL 07/28/2013 Review of Systems [...] developed 06/16/2013 None Full Exam - General 1996 [...] Procedure Codes Date THER/PROPH/DIAG INJ SC/IM CPT-4: 44472 07/18/2017 VITAMIN B12 INJECTION CPT-4: J3420 07/18/2017 TRIAMCINOLONE ACET INJ NOS CPT-4: J3301 06/18/2017 THER/PROPH/DIAG INJ SC/IM CPT-4: 09873 06/18/2017 VITAMIN B12 INJECTION CPT-4: J3420 06/18/2017 PRESCRIP TRANSMIT VIA ERX SY CPT-4: G8553 06/18/2017 THER/PROPH/DIAG INJ SC/IM CPT-4: 39111 05/09/2017 VITAMIN B12 INJECTION CPT-4: J3420 05/09/2017 ADMIN INFLUENZA VIRUS VAC CPT-4: G0008 04/25/2017 FLU VAC NO PRSV 4 JINNY 3 YRS+ CPT-4: 86015 04/25/2017 THER/PROPH/DIAG INJ SC/IM CPT-4: 99631 04/04/2017 VITAMIN B12 INJECTION CPT-4: J3420 04/04/2017 TRIAMCINOLONE ACET INJ NOS CPT-4: J3301 02/23/2017 VITAMIN B12 INJECTION CPT-4: J3420 02/23/2017 THER/PROPH/DIAG INJ SC/IM CPT-4: 01009 01/23/2017 VITAMIN B12 INJECTION CPT-4: J3420 01/23/2017 VITAMIN B12 INJECTION CPT-4: J3420 12/26/2016 THER/PROPH/DIAG INJ SC/IM CPT-4: 43601 12/26/2016 THER/PROPH/DIAG INJ SC/IM CPT-4: 47853 11/14/2016 VITAMIN B12 INJECTION CPT-4: J3420 11/14/2016 THER/PROPH/DIAG INJ SC/IM CPT-4: 66799 09/07/2016 TRIAMCINOLONE ACET INJ NOS CPT-4: J3301 09/07/2016 PRESCRIP TRANSMIT VIA ERX SY CPT-4: G8553 09/07/2016 THER/PROPH/DIAG INJ SC/IM CPT-4: 18650 08/29/2016 VITAMIN B12 INJECTION CPT-4: J3420 08/29/2016 PRESCRIP TRANSMIT VIA ERX SY CPT-4: G8553 08/29/2016 THER/PROPH/DIAG INJ SC/IM CPT-4: 75967 06/12/2016 VITAMIN B12 INJECTION CPT-4: J3420 06/12/2016 PRESCRIP TRANSMIT VIA ERX SY CPT-4: G8553 06/12/2016 URINALYSIS NONAUTO W/O SCOPE CPT-4: 29290 05/04/2016 ROCEPHIN, PER 250 MG CPT-4: J0696 05/04/2016 THER/PROPH/DIAG INJ SC/IM CPT-4: 28249 05/04/2016 VITAMIN B12 INJECTION CPT-4: J3420 05/04/2016 PRESCRIP TRANSMIT VIA ERX SY CPT-4: G8553 05/04/2016 PRESCRIP TRANSMIT VIA ERX SY CPT-4: G8553 03/30/2016 THER/PROPH/DIAG INJ SC/IM CPT-4: 98202 03/17/2016 VITAMIN B12 INJECTION CPT-4: J3420 03/17/2016 THER/PROPH/DIAG INJ SC/IM CPT-4: 30990 02/15/2016 VITAMIN B12 INJECTION CPT-4: J3420 02/15/2016 THER/PROPH/DIAG INJ SC/IM CPT-4: 59181 01/19/2016 VITAMIN B12 INJECTION CPT-4: J3420 01/19/2016 THER/PROPH/DIAG INJ SC/IM CPT-4: 48772 12/07/2015 VITAMIN B12 INJECTION CPT-4: J3420 12/07/2015 ROCEPHIN, PER 250 MG CPT-4: J0696 09/06/2015 THER/PROPH/DIAG INJ SC/IM CPT-4: 10865 09/06/2015 VITAMIN B12 INJECTION CPT-4: J3420 09/06/2015 PRESCRIP TRANSMIT VIA ERX SY CPT-4: G8553 09/06/2015 ROCEPHIN, PER 250 MG CPT-4: J0696 07/05/2015 TRIAMCINOLONE ACET INJ NOS CPT-4: J3301 07/05/2015 PRESCRIP TRANSMIT VIA ERX SY CPT-4: G8553 07/05/2015 THER/PROPH/DIAG INJ SC/IM CPT-4: 83522 06/28/2015 VITAMIN B12 INJECTION CPT-4: J3420 06/28/2015 THER/PROPH/DIAG INJ SC/IM CPT-4: 12046 05/13/2015 VITAMIN B12 INJECTION CPT-4: J3420 05/13/2015 THER/PROPH/DIAG INJ SC/IM CPT-4: 45387 02/23/2015 VITAMIN B12 INJECTION CPT-4: J3420 02/23/2015 THER/PROPH/DIAG INJ SC/IM CPT-4: 71888 01/08/2015 VITAMIN B12 INJECTION CPT-4: J3420 01/08/2015 THER/PROPH/DIAG INJ SC/IM CPT-4: 06154 12/08/2014 VITAMIN B12 INJECTION CPT-4: J3420 12/08/2014 THER/PROPH/DIAG INJ SC/IM CPT-4: 64975 10/26/2014 VITAMIN B12 INJECTION CPT-4: J3420 10/26/2014 VITAMIN B12 INJECTION CPT-4: J3420 09/24/2014 THER/PROPH/DIAG INJ SC/IM CPT-4: 78571 09/24/2014 THER/PROPH/DIAG INJ SC/IM CPT-4: 29129 08/24/2014 VITAMIN B12 INJECTION CPT-4: J3420 08/24/2014 THER/PROPH/DIAG INJ SC/IM CPT-4: 74020 07/08/2014 VITAMIN B12 INJECTION CPT-4: J3420 07/08/2014 THER/PROPH/DIAG INJ SC/IM CPT-4: 34595 06/01/2014 VITAMIN B12 INJECTION CPT-4: J3420 06/01/2014 TRIAMCINOLONE ACET INJ NOS CPT-4: J3301 05/11/2014 VITAMIN B12 INJECTION CPT-4: J3420 04/27/2014 THER/PROPH/DIAG INJ SC/IM CPT-4: 02910 04/27/2014 FLU VAC NO PRSV 4 JINNY 3 YRS+ CPT-4: 18114 04/03/2014 ADMIN INFLUENZA VIRUS VAC Assigned to/Juliana Graham CPT-4: [id number] 04/03/2014 THER/PROPH/DIAG INJ SC/IM CPT-4: 96172 03/24/2014 THER/PROPH/DIAG INJ SC/IM CPT-4: 93371 02/24/2014 THER/PROPH/DIAG INJ SC/IM CPT-4: 09431 01/09/2014 THER/PROPH/DIAG INJ SC/IM CPT-4: 36368 11/27/2013 THER/PROPH/DIAG INJ SC/IM CPT-4: 44388 09/18/2013 VITAMIN B12 INJECTION CPT-4: J3420 09/18/2013 THER/PROPH/DIAG INJ SC/IM CPT-4: 71202 08/22/2013 VITAMIN B12 INJECTION CPT-4: J3420 08/22/2013 ROUTINE VENIPUNCTURE CPT-4: 56012 07/28/2013 VITAMIN B12 INJECTION CPT-4: J3420 07/28/2013 THER/PROPH/DIAG INJ SC/IM CPT-4: 20033 07/28/2013 THER/PROPH/DIAG INJ SC/IM CPT-4: 33288 06/16/2013 VITAMIN B12 INJECTION CPT-4: J3420 06/16/2013 THER/PROPH/DIAG INJ SC/IM CPT-4: 36073 05/21/2013 VITAMIN B12 INJECTION CPT-4: J3420 05/21/2013 ADMIN INFLUENZA VIRUS VAC CPT-4: G0008 04/23/2013 FLULAVAL VACC, 3 YRS & >, IM CPT-4: Q2036 04/23/2013 VITAMIN B12 INJECTION CPT-4: J3420 04/23/2013 THER/PROPH/DIAG INJ SC/IM CPT-4: 15291 04/23/2013 THER/PROPH/DIAG INJ SC/IM CPT-4: 72984 03/24/2013 VITAMIN B12 INJECTION CPT-4: J3420 03/24/2013 THER/PROPH/DIAG INJ SC/IM CPT-4: 99672 02/20/2013 VITAMIN B12 INJECTION CPT-4: J3420 02/20/2013 VITAMIN B12 INJECTION CPT-4: J3420 01/22/2013 PRESCRIP TRANSMIT VIA ERX SY CPT-4: G8553 01/22/2013 TRIAMCINOLONE ACET INJ NOS CPT-4: J3301 12/19/2012 VITAMIN B12 INJECTION CPT-4: J3420 12/19/2012 THER/PROPH/DIAG INJ SC/IM CPT-4: 79705 11/20/2012 VITAMIN B12 INJECTION CPT-4: J3420 11/20/2012 THER/PROPH/DIAG INJ SC/IM CPT-4: 25847 10/23/2012 VITAMIN B12 INJECTION CPT-4: J3420 10/23/2012 THER/PROPH/DIAG INJ SC/IM CPT-4: 98003 09/16/2012 VITAMIN B12 INJECTION CPT-4: J3420 09/16/2012 VITAMIN B12 INJECTION CPT-4: J3420 08/15/2012 THER/PROPH/DIAG INJ SC/IM CPT-4: 94668 08/15/2012 TRIAMCINOLONE ACET INJ NOS CPT-4: J3301 08/06/2012 THER/PROPH/DIAG INJ SC/IM CPT-4: 10938 08/06/2012 PRESCRIP TRANSMIT VIA ERX SY CPT-4: G8553 08/06/2012 VITAMIN B12 INJECTION CPT-4: J3420 07/19/2012 THER/PROPH/DIAG INJ SC/IM CPT-4: 80506 07/19/2012 DRAIN/INJECT JOINT/BURSA CPT-4: 09581 07/10/2012 THER/PROPH/DIAG INJ SC/IM CPT-4: 57266 06/19/2012 VITAMIN B12 INJECTION CPT-4: J3420 06/19/2012 VITAMIN B12 INJECTION CPT-4: J3420 05/22/2012 THER/PROPH/DIAG INJ SC/IM CPT-4: 70681 05/22/2012 ADMIN INFLUENZA VIRUS VAC CPT-4: G0008 04/22/2012 FLULAVAL VACC, 3 YRS & >, IM CPT-4: Q2036 04/22/2012 VITAMIN B12 INJECTION CPT-4: J3420 04/22/2012 VITAMIN B12 INJECTION CPT-4: J3420 03/19/2012 THER/PROPH/DIAG INJ SC/IM CPT-4: 61183 03/19/2012 VITAMIN B12 INJECTION CPT-4: J3420 02/15/2012 THER/PROPH/DIAG INJ SC/IM CPT-4: 88181 02/15/2012 THER/PROPH/DIAG INJ SC/IM CPT-4: 61472 01/18/2012 VITAMIN B12 INJECTION CPT-4: J3420 01/18/2012 TRIAMCINOLONE ACET INJ NOS CPT-4: J3301 12/28/2011 DRAIN/INJECT JOINT/BURSA CPT-4: 35416 12/28/2011 VITAMIN B12 INJECTION CPT-4: J3420 12/20/2011 THER/PROPH/DIAG INJ SC/IM CPT-4: 51440 12/20/2011 VITAMIN B12 INJECTION CPT-4: J3420 11/07/2011 THER/PROPH/DIAG INJ SC/IM CPT-4: 81558 11/07/2011 VITAMIN B12 INJECTION CPT-4: J3420 10/03/2011 THER/PROPH/DIAG INJ SC/IM CPT-4: 17320 10/03/2011 TRIAMCINOLONE ACET INJ NOS CPT-4: J3301 08/23/2011 DRAIN/INJECT JOINT/BURSA CPT-4: 23235 08/23/2011 THER/PROPH/DIAG INJ SC/IM CPT-4: 02142 08/23/2011 VITAMIN B12 INJECTION CPT-4: J3420 08/23/2011 VITAMIN B12 INJECTION CPT-4: J3420 07/28/2011 THER/PROPH/DIAG INJ SC/IM CPT-4: 82288 07/28/2011 VITAMIN B12 INJECTION CPT-4: J3420 06/29/2011 THER/PROPH/DIAG INJ SC/IM CPT-4: 77352 06/29/2011 KETOROLAC TROMETHAMINE INJ CPT-4: J1885 05/23/2011 VITAMIN B12 INJECTION CPT-4: J3420 05/23/2011 THER/PROPH/DIAG INJ SC/IM CPT-4: 81831 05/23/2011 ADMIN INFLUENZA VIRUS VAC CPT-4: G0008 04/26/2011 FLULAVAL VACC, 3 YRS & >, IM CPT-4: Q2036 04/26/2011 VITAMIN B12 INJECTION CPT-4: J3420 04/26/2011 THER/PROPH/DIAG INJ SC/IM CPT-4: 92447 04/26/2011 Vital Signs Date Vital 06/18/2017 Blood Pressure 1: 134/68 Code : 8480-6 BMI: 35.8 Code : 70330-2 Heart Rate 1 : 50 bpm Height: 5'6" SpO2: 98% Weight: 222 lbs 06/07/2017 Blood Pressure 1: 146/68 Code : 8480-6 BMI: 35.3 Code : 33169-3 Heart Rate 1 : 63 bpm Height: 5'6" SpO2: 99% Weight: 218 lbs 8 oz 04/16/2017 Blood Pressure 1: 130/62 Code : 8480-6 BMI: 34.7 Code : 30995-6 Heart Rate 1 : 51 bpm Height: 5'6" SpO2: 94% Weight: 215 lbs 02/23/2017 Blood Pressure 1: 136/64 Code : 8480-6 BMI: 35.0 Code : 03378-2 Heart Rate 1 : 54 bpm Height: 5'6" SpO2: 96% Weight: 217 lbs 12/26/2016 Blood Pressure 1: 144/74 Code : 8480-6 BMI: 34.5 Code : 10272-7 Heart Rate 1 : 60 bpm Height: 5'6" SpO2: 97% Weight: 214 lbs 09/07/2016 Blood Pressure 1: 138/62 Code : 8480-6 Heart Rate 1: 86 bpm SpO2: 96% Temperature: 36.8 (C) / 98.2 (F) Weight: 207 lbs 08/29/2016 Blood Pressure 1: 132/58 Code : 8480-6 BMI: 33.9 Code : 18630-0 Heart Rate 1 : 55 bpm Height: 5'6" SpO2: 98% Weight: 210 lbs 06/12/2016 Blood Pressure 1: 128/76 Code : 8480-6 BMI: 33.2 Code : 12940-9 Heart Rate 1 : 57 bpm Height: 5'6" SpO2: 97% Weight: 206 lbs 05/04/2016 Blood Pressure 1: 130/72 Code : 8480-6 BMI: 33.9 Code : 55732-5 Heart Rate 1 : 74 bpm Height: 5'6" SpO2: 96% Temperature: 36.9 (C) / 98.5 (F) Weight: 210 lbs 03/30/2016 Blood Pressure 1: 116/66 Code : 8480-6 BMI: 34.3 Code : 26488-1 Heart Rate 1 : 67 bpm Height: 5'6" SpO2: 98% Weight: 212 lbs 8 oz 11/30/2015 Blood Pressure 1: 138/64 Code : 8480-6 BMI: 35.2 Code : 29195-0 Heart Rate 1 : 59 bpm Height: 5'6" SpO2: 98% Weight: 218 lbs 09/06/2015 Blood Pressure 1: 138/668 Code: 8480-6 BMI: 35.3 Code: 64620-7 Heart Rate 1: 68 bpm Height: 5'6" Weight: 219 lbs 08/04/2015 Blood Pressure 1: 140/82 Code : 8480-6 Heart Rate 1: 62 bpm SpO2: 98% Weight: 220 lbs 07/05/2015 Blood Pressure 1: 122/80 Code : 8480-6 BMI: 36.0 Code : 03097-2 Heart Rate 1 : 63 bpm Height: 5'6" SpO2: 97% Temperature: 36.3 (C) / 97.3 (F) Weight: 223 lbs 06/28/2015 Blood Pressure 1: 150/74 Code : 8480-6 BMI: 36.3 Code : 30728-2 Heart Rate 1 : 65 bpm Height: 5'6" SpO2: 96% Weight: 225 lbs 02/23/2015 Blood Pressure 1: 142/64 Code : 8480-6 BMI: 37.0 Code : 23824-7 Heart Rate 1 : 56 bpm Height: 5'6" SpO2: 96% Weight: 229 lbs 01/08/2015 Blood Pressure 1: 128/88 Code : 8480-6 BMI: 37.3 Code : 61595-0 Heart Rate 1 : 74 bpm Height: 5'6" Weight: 231 lbs 09/24/2014 Blood Pressure 1: 128/70 Code : 8480-6 BMI: 36.8 Code : 85302-3 Heart Rate 1 : 68 bpm Height: 5'6" SpO2: 96% Weight: 228 lbs 05/11/2014 Blood Pressure 1: 148/82 Code : 8480-6 Height: Temperature: 36.2 (C) / 97.2 (F) Weight: 05/01/2014 Blood Pressure 1: 128/68 Code : 8480-6 BMI: 36.6 Code : 68061-4 Heart Rate 1 : 74 bpm Height: 5'6" Weight: 227 lbs 04/03/2014 Blood Pressure 1: 130/72 Code : 8480-6 BMI: 36.8 Code : 70916-9 Heart Rate 1 : 76 bpm Height: 5'6" Weight: 228 lbs 11/24/2013 Blood Pressure 1: 146/64 Code : 8480-6 BMI: 35.5 Code : 61291-1 Heart Rate 1 : 64 bpm Height: 5'6" Weight: 220 lbs 08/22/2013 Weight: 223 lbs 07/28/2013 Blood Pressure 1: 112/68 Code : 8480-6 BMI: 36.2 Code : 90236-9 Heart Rate 1 : 80 bpm Height: 5'6" Weight: 224 lbs 06/16/2013 Blood Pressure 1: 132/60 Code : 8480-6 BMI: 37.6 Code : 68826-3 Heart Rate 1 : 72 bpm Height: 5'6" Weight: 233 lbs 01/22/2013 Blood Pressure 1: 130/64 Code : 8480-6 BMI: 37.3 Code : 98142-5 Heart Rate 1 : 80 bpm Height: 5'6" Weight: 231 lbs 10/02/2012 Blood Pressure 1: 146/90 Code : 8480-6 BMI: 36.8 Code : 26181-3 Heart Rate 1 : 60 bpm Height: [...] Code : 8480-6 BMI: 37.1 Code : 17549-8 Heart Rate 1 : 60 bpm Height: 5'6" Respiratory Rate: 16 bpm Weight: 230 lbs 12/20/2011 Blood Pressure 1: 142/66 Code : 8480-6 BMI: 35.8 Code : 23581-2 Heart Rate 1 : 66 bpm Height: [...] Code : 8480-6 BMI: 36.2 Code : 69594-6 Heart Rate 1 : 64 bpm Height: [...] None knee pain Quality intermittent 11/30/2015 seeing Banwart- gets Synvisnaomi knee pain Alleviating Factors rest 11/30/2015 None [...] None knee pain Quality intermittent 06/28/2015 seeing Chiki- gets Synvisc hypertension Blood Pressure Values patient [...] knee pain Quality intermittent 02/23/2015 seeing Kevin [facility] diabetes mellitus Test results HgbA1c level [...] lesion Location on the right cheek 01/22/2013 buddhism area edema Quality painful 01/22/2013 None edema [...] data Encounters Encounter Performer Location Codes Date ([id number]) 27119 EST. PATIENT, LEVEL IV Diagnosis: Type 2 diabetes mellitus without complications[ICD10: E11.9] Diagnosis: Essential (primary) hypertension[ICD10: I10] Diagnosis: Other vitamin B12 deficiency anemias[ICD10: D51.8] Diagnosis: Allergic rhinitis due to animal (cat) (dog) hair and dander[ICD10: J30.81] Daisy Garcia MD [facility] CPT-4: 95269 2016 ([id number]) 48391 EST. 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 PATIENT, LEVEL IV Diagnosis: Type 2 diabetes mellitus without complications[ICD10: E11.9] Diagnosis: Essential (primary) hypertension[ICD10: I10] Diagnosis: Chronic atrial fibrillation[ICD10: I48.2] Daisy Garcia MD [facility] CPT-4: 99049 04/16/2017 ([id number]) 64740 EST. PATIENT, LEVEL III Diagnosis: Sciatica, left side[ICD10: M54.32] Diagnosis: Sacroiliitis, not elsewhere classified[ICD10: M46.1] Chantell Garcia MD [facility] CPT-4: 34775 02/23/2017 ([id number]) 08805 EST. PATIENT, LEVEL IV Diagnosis: Type 2 diabetes mellitus without complications[ICD10: E11.9] Diagnosis: Essential (primary) hypertension[ICD10: I10] Daisy Garcia MD [facility] CPT-4: 44846 12/26/2016 ([id number]) 96307 EST. PATIENT, LEVEL III Diagnosis: Cough[ICD10: R05] Diagnosis: Acute bronchitis, unspecified[ICD10: J20.9] Chantell Garcia MD [facility] CPT-4: 53426 09/07/2016 ([id number]) 03599 EST. PATIENT, LEVEL IV Diagnosis: Type 2 diabetes mellitus without complications[ICD10: E11.9] Diagnosis: Cough[ICD10: R05] Diagnosis: Acute laryngopharyngitis[ICD10: J06.0] Diagnosis: Acute recurrent maxillary sinusitis[ICD10: J01.01] Daisy Garcia MD [facility] CPT-4: 63162 08/29/2016 44202 EST. PATIENT, LEVEL IV Diagnosis: Other allergic rhinitis[ICD10: J30.89] Diagnosis: Other vitamin B12 deficiency anemias[ICD10: D51.8] Yady Garcia MD, [facility] CPT-4: 61952 06/12/2016 ([id number]) 53394 EST. PATIENT, LEVEL III Diagnosis: Urinary tract infection, site not specified[ICD10: N39.0] Diagnosis: Fever, unspecified[ICD10: R50.9] Diagnosis: Other vitamin B12 deficiency anemias[ICD10: D51.8] Chantell Garcia MD, [facility] CPT-4: 43285 05/04/2016 ([id number]) 78652 EST. 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 PATIENT, LEVEL IV Diagnosis: Type 2 diabetes mellitus with hyperglycemia[ICD10: E11.65] Diagnosis: Essential (primary) hypertension[ICD10: I10] Daisy Garcia MD, [facility] CPT-4: 51829 11/30/2015 ([id number]) 95888 EST. PATIENT, LEVEL III Diagnosis: Acute recurrent maxillary sinusitis[ICD10: J01.01] Diagnosis: Unspecified acute conjunctivitis, right eye[ICD10: H10.31] Diagnosis: Vitamin B12 deficiency anemia, unspecified[ICD10: D51.9] Chantell Garcia MD , [facility] CPT-4: 02285 09/06/2015 46807 EST. PATIENT, LEVEL III Diagnosis: Pain in right knee[ICD10: M25.561] Diagnosis: Essential (primary) hypertension[ICD10: I10] Diagnosis: Vitamin B12 deficiency anemia, unspecified[ICD10: D51.9] Yady Garcia MD, [facility] CPT-4: 65626 08/04/2015 ([id number]) 75677 EST. PATIENT, LEVEL III Diagnosis: Streptococcal pharyngitis[ICD10: J02.0] Diagnosis: Acute recurrent maxillary sinusitis[ICD10: J01.01] Chantell Garcia MD, [facility] CPT-4: 34797 07/05/2015 [id number]) 65163 EST. PATIENT, LEVEL IV Diagnosis: Type 2 diabetes mellitus with hyperglycemia[ICD10: E11.65] Diagnosis: Essential (primary) hypertension[ICD10: I10] Diagnosis: Vitamin B12 deficiency anemia, unspecified[ICD10: D51.9] Daisy Garcia MD, [facility] CPT-4: 07677 06/28/2015 ([id number]) 97110 EST. PATIENT, LEVEL IV Diagnosis: DM W/O COMPLICATION TYPE II, UNCONTROLLED[ICD9: 250.02] Diagnosis: ESSENTIAL HYPERTENSION[ICD9: 401.9] Diagnosis: Iron deficiency[ICD9: 280.9] Diagnosis: OTH SCREENING MAMMOGRAM[ICD9: V76.12] Diagnosis: B12 deficiency[ICD9: 266.2] Daisy Garcia MD, [facility] CPT- 4: 34565 02/23/2015 ([id number]) 46953 EST. PATIENT, LEVEL IV Diagnosis: DM W/O COMPLICATION TYPE II, UNCONTROLLED[ICD9: 250.02] Diagnosis: ESSENTIAL HYPERTENSION[ICD9: 401.9] Diagnosis: Right knee pain[ICD9: 719.46] Diagnosis: B12 deficiency[ICD9: 266.2] Chantell Garcia MD, [facility] CPT-4: 94588 01/08/2015 ([id number]) 70825 EST. PATIENT, LEVEL IV Diagnosis: DM W/O COMPLICATION TYPE II, UNCONTROLLED[ICD9: 250.02] Diagnosis: ESSENTIAL HYPERTENSION[ICD9: 401.9] Diagnosis: Iron deficiency[ICD9: 280.9] Daisy Garcia MD, [facility] CPT- 4: 46286 09/24/2014 [id number]) 48102 EST. PATIENT, LEVEL III Diagnosis: Sacroiliitis[ICD9: 720.2] Diagnosis: Left sided sciatica[ICD9: 724.3] Chantell Garcia MD, [facility] CPT-4: 94108 05/11/2014 ([id number]) 98480 EST. PATIENT, LEVEL III Diagnosis: CELLULITIS OF BUTTOCK[ICD9: 682.5] Daisy Garcia MD [facility] CPT-4: 38848 05/01/2014 98367 EST. PATIENT, LEVEL IV Diagnosis: ESSENTIAL HYPERTENSION[ICD9: 401.9] Diagnosis: DIABETES TYPE II[ICD9: 250.00] Diagnosis: Iron deficiency[ICD9: 280.9] Diagnosis: LUMBAGO[ICD9: 724.2] Daisy Garcia MD [facility] CPT-4: 56857 04/03/2014 ([id number]) 60020 EST. PATIENT, LEVEL IV Diagnosis: ESSENTIAL HYPERTENSION[SNOMED: 84456016] Diagnosis: DIABETES TYPE II[SNOMED: 894647539] Diagnosis: ANEMIA[ICD9: 285.9] Diagnosis: Iron deficiency[ICD9: 280.9] Daisy Garcia MD [facility] CPT- 4: 44104 11/24/2013 ([id number]) 89325 EST. PATIENT, LEVEL IV Diagnosis: ESSENTIAL HYPERTENSION[SNOMED: 75519414] Diagnosis: DIABETES TYPE II[SNOMED: 877996482] Diagnosis: EDEMA[ICD9: 782.3] Daisy Garcia MD [facility] CPT-4: 92492 07/28/2013 ([id number]) 68668 EST. PATIENT, LEVEL IV Diagnosis: ESSENTIAL HYPERTENSION[SNOMED: 27678170] Diagnosis: DIABETES TYPE II[SNOMED: 527511981] Diagnosis: EDEMA[ICD9: 782.3] Diagnosis: B-COMPLEX DEFIC NEC[ICD9: 266.2] Daisy Garcia MD [facility] CPT-4: 84091 06/16/2013 ([id number]) 18426 EST. PATIENT, LEVEL IV Diagnosis: ESSENTIAL HYPERTENSION[SNOMED: 34935419] Diagnosis: DIABETES TYPE II[SNOMED: 989066461] Diagnosis: EDEMA[ICD9: 782.3] Diagnosis: B-COMPLEX DEFIC NEC[ICD9: 266.2] Daisy Garcia MD [facility] CPT-4: 94920 01/22/2013 ([id number]) 44259 EST. PATIENT, LEVEL III Diagnosis: Lumbago[ICD9: 724.2] Diagnosis: Sacroiliitis[ICD9: 720.2] Diagnosis: ESSENTIAL HYPERTENSION[SNOMED: 10870313] Daisy Garcia MD, [facility] CPT-4: 33433 10/02/2012 ([id number]) 79340 EST. PATIENT, LEVEL III Diagnosis: ACUTE URI[ICD9: 465.9] Daisy Garcia MD, [facility] CPT-4: 83485 08/06/2012 ([id number]) 64059 EST. PATIENT, LEVEL IV Diagnosis: ESSENTIAL HYPERTENSION[SNOMED: 43936290] Diagnosis: DIABETES TYPE II[SNOMED: 744550981] Diagnosis: ANEMIA[ICD9: 285.9] Daisy Garcia MD, [facility] CPT-4: 44957 07/04/2012 ([id number]) 54729 EST. PATIENT, LEVEL IV Diagnosis: ESSENTIAL HYPERTENSION[SNOMED: 20148379] Diagnosis: DIABETES TYPE II[SNOMED: 598678613] Diagnosis: B-COMPLEX DEFIC NEC[ICD9: 266.2] Daisy Garcia MD, [facility] CPT-4: 80363 05/22/2012 ([id number]) 34637 EST. PATIENT, LEVEL IV Diagnosis: ESSENTIAL HYPERTENSION[SNOMED: 52463276] Diagnosis: DIABETES TYPE II[SNOMED: 781344022] Diagnosis: LUMBAGO[ICD9: 724.2] Diagnosis: B-COMPLEX DEFIC NEC[ICD9: 266.2] Daisy Garcia MD, [facility] CPT-4: 12681 04/22/2012 44882 EST. PATIENT, LEVEL III Diagnosis: Sciatica of right side[ICD9: 724.3] Diagnosis: Sacroiliitis[ICD9: 720.2] Chantell Gracia MD, [facility] CPT-4: 59084 12/28/2011 ([id number]) 40170 EST. PATIENT, LEVEL IV Diagnosis: DIABETES TYPE II[SNOMED: 366981919] Diagnosis: ESSENTIAL HYPERTENSION[SNOMED: 71142798] Daisy Garcia MD, [facility] CPT-4: 54061 12/20/2011 ([id number]) 16894 EST. PATIENT, LEVEL IV Diagnosis: ESSENTIAL HYPERTENSION[SNOMED: 07580919] Diagnosis: DIABETES TYPE II[SNOMED: 573827573] Diagnosis: PAIN IN LIMB[ICD9: 729.5] Diagnosis: LUMBAGO[ICD9: 724.2] Diagnosis: Sacroiliitis[ICD9: 720.2] [facility] CPT-4: 24670 08/23/2011 54216 EST. PATIENT, LEVEL III Diagnosis: Sacroiliitis[ICD9: 720.2] Diagnosis: Right sided sciatica[ICD9: 724.3] Diagnosis: B-COMPLEX DEFIC NEC[ICD9: 266.2] [facility]ell [facility] CPT-4: 74051 05/23/2011 05661 EST. PATIENT, LEVEL IV Diagnosis: DIABETES TYPE II[SNOMED: 530220926] Diagnosis: ESSENTIAL HYPERTENSION[SNOMED: 23081532] Diagnosis: Feces incontinence[ICD9: 787.60] [facility] CPT-4: 71180 04/26/2011 Plan of Care Planned Activity Notes Codes Status Date Appointment: Injection 07/18/2017 Patient Education: Patient Medication [...] shot today. 06/18/2017 Appointment: Daisy Garcia WPtel: [address] [place], [place] [address] (15 min) Moderate 06/18/2017 Patient Education: Patient [...] days 06/07/2017 Appointment: Daisy Garcia WPtel: [facility] (15 min) Moderate 06/07/2017 Patient Education: Patient Medication Summary Completed 06/07/2017 Patient Education: Obesity Completed 06/07/2017 Appointment: Injection 05/09/2017 Patient Education: Patient Medication Summary Completed 05/09/2017 Appointment: Daisy Garcia WPtel: [facility] (15 min) Moderate 04/26/2017 Patient Education: Patient [...] Afib - rate controlled - continue with eliqupeter and marizolm 04/16/2017 Appointment: Daisy Garcia WPtel: [facility] (15 min) Moderate 04/16/2017 Appointment: Daisy Garcia WPtel: [facility] (15 min) Moderate 04/16/2017 Patient Education: Patient [...] less controlled. 12/26/2016 [phone] ([facility] Moderate 12/26/2016 Patient [...] worsen. 09/07/2016 Appointment: Chantell Singh WPtel: [phone] [phone] (30 min) Complex 09/07/2016 Patient Education: Patient [...] show improvement. 08/29/2016 Appointment: Daisy Garcia WPtel: [facility] (15 min) Moderate 08/29/2016 Patient Education: Patient Medication Summary Completed 08/29/2016 Patient Education: Obesity Completed 08/29/2016 Appointment: Daisy Garcia WPtel: [facility] (15 min) Moderate 08/22/2016 Appointment: Daisy Garcia WPtel: [facility] (15 min) Moderate 08/02/2016 Appointment: Chantell Singh WPtel: [phone] [phone] (30 min) Complex 08/02/2016 Visit Plan: Allergies [...] spray. 06/12/2016 Appointment: Yady Harper WPtel: [phone] [facility] [place] (15 min) Moderate 06/12/2016 Patient Education: [...] office 05/04/2016 Appointment: Chantell Singh WPtel: [phone] [phone] [place] (15 min) Moderate 05/04/2016 Patient Education: [...] cream. 03/30/2016 [facility]ment[phone] [place] ([facility] min) Moderate 03/30/2016 Patient Education: Patient Medication Summary Completed 03/30/2016 Patient Education: Hypertension Completed 03/30/2016 Appointment: Injection 03/17/2016 Patient Education: Patient Medication Summary Completed 03/17/2016 Appointment: Injection 02/15/2016 Patient Education: Patient Medication Summary Completed 02/15/2016 Appointment: [facility] [address] [facility] [place] (15 min) Moderate 01/26/2016 [...] concerns. 11/30/2015 Appointment: Daisy Garcia WPtel[facility] (15 min) Moderate 11/30/2015 Patient Education: Patient Medication Summary Completed 11/30/2015 Patient Education: Obesity Completed 11/30/2015 [facility]ment: [phone] [facility] ([facility] min) Moderate 10/26/2015 Visit Plan: Sinusitis [...] Patient Medication Summary Completed 07/05/2015 Care Plan: Naomi CANTU Pending 07/05/2015 Visit Plan: Diabetes Mellitus [...] at home. 06/28/2015 Appointment: [phone] (15 min) Moderate 06/28/2015 Patient [...] without resting. 02/23/2015 Appointment: [phone] Follow up 02/23/2015 Patient Education: Patient Medication Summary Completed 02/23/2015 Patient Education: Hypertension Completed 02/23/2015 Care Plan: SCREENINGMAMMOGRAPHYDIGITAL LOINC : 99988-2 Ordered 02/23/2015 Visit Plan: Depression - uncontrolled [...] Care Plan: COMPLETE CBC AUTOMATED LOINC : 94424-0 Ordered 01/08/2015 Appointment: Injection 12/08/2014 Patient Education: [...] diarrhea. 09/24/2014 App[facility]ment: [phone] [facility] Follow [facility] 09/24/2014 Patient Education: Patient Medication Summary Completed 09/24/2014 Patient Education: Hypertension Completed 09/24/2014 Appointment: [phone] [facility] [place] Injection 08/24/2014 Patient Education: Patient Medication [...] discharge. 05/01/2014 Appointment: Daisy Garcia [facility]Ptel: [phone] Follow up 05/01/2014 Patient Education: Patient Medication Summary Completed 05/01/2014 Appointment: [phone] [place] Injection 04/27/2014 Patient Education: [...] pain 04/03/2014 Appointment: Chantell Singh WPtel: [phone] [phone] [place] Follow up 04/03/2014 Patient Education: Patient Medication Summary Completed 04/03/2014 Patient Education: Hypertension Completed 04/03/2014 Visit Plan: vitamin b12 injection 03/24/2014 Appointment: Daisy Garcia WPtel: [phone] [place] Injection 03/24/2014 Patient Education: Patient Medication Summary Completed 03/24/2014 Appointment: Daisy Garcia WPtel[facility] [place] Follow up 03/23/2014 Appointment: [facility]el[phone] [facility] [place] Injection 02/24/2014 Patient Education: Patient Medication Summary Completed 02/24/2014 [phone] [place] Injection 01/09/2014 Patient Education: Patient [...] supplementation. 11/24/2013 Appointment: [phone] [facility] Follow up 11/24/2013 Patient Education: Patient Medication Summary Completed 11/24/2013 Patient Education: Hypertension Completed 11/24/2013 Appointment: Daisy Garcia WPtel: [phone] Follow up 11/12/2013 Appointment: [facility]el[phone] [facility] [place] Follow up 10/27/2013 [phone] [phone] [place] Injection 09/18/2013 Patient Education: Patient Medication Summary Completed 09/18/2013 [phone] [phone] [place] Injection 08/22/2013 Patient Education: Patient [...] today 07/28/2013 Appointment: [phone] [facility] Follow [facility] 07/28/2013 Patient Education: Patient Medication Summary Completed 07/28/2013 Patient Education: Hypertension Completed 07/28/2013 Appointment: Chantell Sinhg WPtel: [phone] [phone] [place] Injection 06/20/2013 Visit Plan: Diabetes Mellitus [...] edema. 06/16/2013 Appointment: [facility]el[phone] [facility] [place] Follow up 06/16/2013 Patient Education: Patient Medication Summary Completed 06/16/2013 Patient Education: Hypertension Completed 06/16/2013 App[facility]ment[phone] [phone] [place] Injection 05/21/2013 Patient Education: Patient Medication Summary Completed 05/21/2013 Appointment: [facility]el[phone] [facility] [place] Injection 04/23/2013 Patient Education: Patient Medication Summary Completed 04/23/2013 Appointment: [facility]el[phone] [facility] [place] Injection 03/24/2013 Patient Education: Patient Medication Summary Completed 03/24/2013 Appointment: [phone] [facility] [place] In[facility] 02/20/2013 Patient Education: Patient Medication [...] peripheral edema. 01/22/2013 Appointment: Daisy Garcia WPtel: [facility] [place] Follow up 01/22/2013 Patient Education: Patient Medication Summary Completed 01/22/2013 Patient Education: Hypertension Completed 01/22/2013 Appointment: Daisy Garcia [facility] [facility] [place] [facility] 01/21/2013 Patient Education: Patient Medication Summary Completed 12/19/2012 Appointment: Daisy Garcia WPtel: [facility] [place] [facility] 11/22/2012 Appointment: Daisy Garcia WPtel: [address] [place], [place] [id number] [place] Injection 11/20/2012 Patient Education: Patient Medication Summary Completed 11/20/2012 Appointment: Chantell Singh WPtel: [phone] [phone] [place] Injection 11/08/2012 Appointment: Daisy Garcia [facility]el[facility] [facility] [place] [facility] 10/23/2012 Patient Education: [...] Hypertension Completed 10/02/2012 Appointment: Chantell Singh WPtel: [phone] Lab Draw 09/16/2012 Patient Education: Patient Medication [...] office. 08/06/2012 App[facility]ment[facility] [id number] [place] Sick 08/06/2012 Patient Education: Patient [...] injection. 07/10/2012 Appointment: Daisy Garcia WPtel: [facility] [place] Injection 07/10/2012 Patient Education: Patient Medication [...] controlled. 07/04/2012 Appointment: Daisy Garcia [facility]el[facility] [place] Follow up 07/04/2012 Patient Education: Patient Medication Summary Completed 07/04/2012 Patient Education: Hypertension Completed 07/04/2012 Appointment: Daisy Garcia [facility]el[facility] [facility] [place] [facility] 06/19/2012 Patient Education: Patient Medication [...] office. 05/22/2012 Appointment: Chantell Singh WPtel: [phone] Follow up 05/22/2012 Appointment: Chantell Singh WPtel: [address] [place], [place] [id number] Follow up 05/22/2012 Patient Education: Patient Medication [...] office 04/22/2012 Appointment: Chantell Singh WPtel: [phone] Established Patient Preventative visit 04/22/2012 Patient Education: Patient Medication Summary Completed 04/22/2012 Patient Education: High Blood Pressure: Essential Hypertension Completed 2011 Appointment: Chantell Singh WPtel: [phone] [place] Injection 03/19/2012 Patient Education: Patient Medication Summary Completed 03/19/2012 Appointment: Jose Daisy [facility]el[facility] [facility] [place] [facility] 02/15/2012 Patient Education: Patient Medication Summary Completed 02/15/2012 Appointment: [place], Daisy [facility]Ptel[facility] [facility] [place] [facility] 01/18/2012 Patient Education: Patient Medication [...] any worse. 12/28/2011 Appointment: [facility] [id number] [place] Other 12/28/2011 Patient Education: Patient [...] shot today. 12/20/2011 Appointment: Daisy Garcia [facility]el[phone] [facility] [place] Other 12/20/2011 Patient Education: Patient Medication Summary Completed 12/20/2011 Patient Education: High Blood Pressure: Essential Hypertension Completed 2011 App[facility]ment: [facility] [id number] [place] [facility] 11/07/2011 Patient Education: Patient Medication Summary Completed 11/07/2011 Appointment: Arnold Garciay [facility]Ptel[facility] [facility] [place] [facility] 10/03/2011 Patient Education: Patient Medication Summary Completed 10/03/2011 Appointment: Daisy Garcia [facility]el[facility] [facility] [place] [facility] 08/28/2011 Visit Plan: Hypertension - [...] today 08/23/2011 Appointment: Daisy Garcia [facility]el: [phone] [facility] [place] Other 08/23/2011 Patient Education: Patient Medication Summary Completed 08/23/2011 Patient Education: High Blood Pressure: Essential Hypertension Completed 2011 App[facility]ment: [facility] [address] [id number] [place] [facility] 07/28/2011 Patient Education: Patient Medication Summary Completed 07/28/2011 Visit Plan: b12 injection 06/29/2011 Appointment: [facility] [address] [id number] [place] [facility]jection 06/29/2011 Patient Education: Patient [...] injection today in the office 05/23/2011 Appointment: Singh [facility]ell [facility] [address] [id number] Other 05/23/2011 Patient Education: Patient Medication Summary [...] IRON. 04/26/2011 Appointment: Daisy Garcia [facility]Ptel: [phone] [facility] [place] Other 04/26/2011 Patient Education: Patient Medication [...] shot today. Once pt runs out of diann, she [...]
[2018-07-17 07:41] LABS: ALBUMIN 4.1 GM/DL (3.2-4.5); BILIRUBIN,TOTAL 0.7 MG/DL (0.1-1.0); CALCIUM 9.2 MG/DL (8.5-10.1); CREATININE SERUM 1.44 MG/DL (0.60-1.30); POTASSIUM 3.5 MMOL/L (3.6-5.0); TOTAL PROTEIN 6.7 GM/DL (6.4-8.2)
[2018-07-17] MEDS ORDERED: MULT1TAB69 PO (07:44)
[2018-07-17] MEDS ORDERED: ATOR10TA66 PO (07:44)
--- NOTE | 2018-07-17 07:46 | Diagnostic Imaging Report ---
Examination: Single frontal view of the chest Indication: Coronary artery disease, A-fib. Abnormal stress test. Preoperative exam. Comparison: Multiple priors, most recent on 06/19/2018. Findings: The lungs are clear and the pulmonary vasculature is normal. No pneumothorax or significant pleural effusion. The cardiomediastinal silhouette is unchanged, there is unchanged moderate cardiomegaly. No acute osseous abnormality. Impression: No acute chest disease. Unchanged cardiomegaly. No significant change from prior. Dictated by: Dictated on workstation # [id number]
--- OUTSIDE RECORDS SUMMARY | 2018-07-17 07:47 | XMS REPORT | CCD ---
Author Author Daisy [facility] Organization [facility] Address [address] [place] [address] Phone Care Team Providers Care Nuclear Medicine Physician Name Role Phone Daisy Garcia PP Unavailable CCM Unavailable Summary Purpose Interface Exchange Insurance Providers Payer name Policy type / Coverage type Covered constitution party ID Effective Begin Date Effective End Date WPS Medicare Part B Medicare Part B [id number] Unknown AETNA Medicare Part B [id number] Unknown Family history Sister Diagnosis Age At [...] 1 daughter 04/21/[address]: 954567940 Nonsmoker 04/21/[address]: 390569303 Never drinks alcohol 04/21/2011 Has the patient [...] Fill Instructions glipizide 10 mg tablet RxNorm: 660715 TAKE ONE TABLET BY MOUTH TWICE A DAY 08/28/2017 08/22/2018 Active Request already responded to by other means (e.g. phone or fax) glipizide 10 mg tablet RxNorm: 868867 Tablet(s) TAKE ONE TABLET BY MOUTH TWICE A DAY 08/23/2017 08/27/2017 Inactive cyanocobalamin (vit B-12) 1,000 mcg/mL injection solution RxNorm: 704937 1 Milliliter(s) Inj 08/21/2017 08/21/2017 Inactive Synthroid 50 mcg tablet RxNorm: 584306 TAKE ONE TABLET BY MOUTH EVERY DAY. 08/15/2017 10/13/2017 Active metformin ER 500 mg tablet,extended release 24 hr RxNorm: 479694 TAKE TWO TABLETS BY MOUTH TWICE A DAY 07/31/20172017 Active Tricor 145 mg tablet RxNorm: 821845 TAKE ONE TABLET BY MOUTH DAILY 07/31/2017 11/27/2017 Active spironolactone 25 mg tablet RxNorm: 220642 TAKE ONE TABLET BY MOUTH TWICE A DAY 07/31/2017 07/25/2018 Active Tenex 1 mg tablet RxNorm: 231389 TAKE ONE TABLET BY MOUTH DAILY 07/20/2017 01/15/2018 Active cyanocobalamin (vit B-12) 1,000 mcg/mL injection solution RxNorm: 350883 1 Milliliter(s) Inj 07/18/2017 07/18/2017 Inactive Byetta 10 mcg/dose(250 mcg/mL)2.4 mL subcutaneous pen injector RxNorm: 592920 INJECT 10 MCG UNDER THE SKIN TWO TIMES A DAY ( START AFTER 5 MCG DOSE IS COMPLETE ) 06/18/2017 04/13/2018 Active potassium chloride ER 20 mEq tablet,extended release(part/ cryst) RxNorm: 1363966 TAKE ONE TABLET BY MOUTH DAILY WHEN YOU TAKE LASIX (FUROSEMIDE) 06/18/2017 09/15/2017 Active Flonase Allergy Relief 50 mcg/actuation nasal spray, suspension RxNorm: 6800483 1 Barney NASAL BID 06/18/20172017 Active Kenalog 40 mg/mL suspension for injection RxNorm: 0892180 1 Milliliter(s) Inj 06/18/2017 06/18/2017 Inactive cyanocobalamin (vit B-12) 1,000 mcg/mL injection solution RxNorm: 683734 1 Milliliter(s) Inj 06/18/2017 06/18/2017 Inactive Lasix 20 mg tablet RxNorm: 628368 Tablet(s) TAKE ONE TABLET BY MOUTH EVERY DAY NEEDED FOR SWELLING. TAKE POTASSIUM WITH EACH DOSE 201610/02/2017 Active cyanocobalamin (vit B-12) 1,000 mcg/mL injection solution RxNorm: 628774 1 Milliliter(s) Inj 05/09/2017 05/09/2017 Inactive cyanocobalamin (vit B-12) 1,000 mcg/mL injection solution RxNorm: 281350 1 Milliliter(s) Inj 04/04/2017 04/04/2017 Inactive metformin ER 500 mg tablet,extended release 24 hr RxNorm: 687194 TAKE TWO TABLETS BY MOUTH TWICE A DAY 03/01/20172016 Inactive Kenalog 40 mg/mL suspension for injection RxNorm: 1370931 1 Milliliter(s) Inj 02/23/2017 02/23/2017 Inactive amlodipine 5 mg tablet RxNorm: 618457 TAKE ONE TABLET BY MOUTH TWICE A DAY 02/22/2017 11/18/2017 Active glipizide 10 mg tablet RxNorm: 945973 TAKE ONE TABLET BY MOUTH TWICE A DAY 02/12/2017 08/10/2017 Inactive cyanocobalamin (vit B-12) 1,000 mcg/mL injection solution RxNorm: 429015 Milliliter(s) Inj 01/23/2017 01/23/2017 Inactive Synthroid 50 mcg tablet RxNorm: 530731 TAKE ONE TABLET BY MOUTH EVERY DAY. 12/21/2016 06/18/2017 Inactive potassium chloride ER 20 mEq tablet,extended release(part/ cryst) RxNorm: 1962510 TAKE ONE TABLET BY MOUTH DAILY WHEN YOU TAKE LASIX (FUROSEMIDE) 12/21/2016 04/19/2017 Inactive Tricor 145 mg tablet RxNorm: 729162 TAKE ONE TABLET BY MOUTH DAILY 12/21/2016 06/06/2017 Inactive Lasix 20 mg tablet RxNorm: 923228 TAKE ONE TABLET BY MOUTH EVERY DAY NEEDED FOR SWELLING. TAKE POTASSIUM WITH EACH DOSE 12/11/2016 04/09/2017 Inactive cyanocobalamin (vit B-12) 1,000 mcg/mL injection solution RxNorm: 283105 1 Milliliter(s) Inj 11/14/2016 11/14/2016 Inactive simvastatin 20 mg tablet RxNorm: 549159 TAKE ONE TABLET BY MOUTH EVERY NIGHT AT BEDTIME 10/23/2016 04/15/2017 Inactive Tenex 1 mg tablet RxNorm: 739941 TAKE ONE TABLET BY MOUTH DAILY 10/16/2016 11/14/2016 Inactive glipizide 10 mg tablet RxNorm: 018235 TAKE ONE TABLET BY MOUTH TWICE A DAY 09/20/2016 02/11/2017 Inactive doxycycline hyclate 100 mg capsule RxNorm: 1961860 1 Capsule(s) PO BID 09/12/2016 09/18/2016 Inactive doxycycline hyclate 100 mg capsule RxNorm: 7363706 1 Capsule(s) PO BID 09/12/2016 09/11/2016 Inactive Phenergan with Codeine Syrup RxNorm: 5-10 Milliliter(s) PO Q6 PRN 09/07/2016 No Stop Date Active prednisone 20 mg tablet RxNorm: 585870 1 Tablet(s) PO BID 09/0709/11/2016 Inactive Kenalog 40 mg/mL suspension for injection RxNorm: 5158402 1 Milliliter(s) Inj 09/07/2016 09/07/2016 Inactive Tessalon Perles 100 mg capsule RxNorm: 277214 1 Capsule(s) PO TID PRN 09/01/2016 09/20/2016 Inactive Zyrtec 10 mg capsule RxNorm: 9216759 1 Capsule(s) PO daily 03/26/2017 Inactive Flonase Allergy Relief 50 mcg/actuation nasal spray, suspension RxNorm: 0642191 1 Barney NASAL BID 08/29/20162016 Inactive cyanocobalamin (vit B-12) 1,000 mcg/mL injection solution RxNorm: 416924 1 Milliliter(s) Inj 08/29/2016 08/29/2016 Inactive metformin ER 500 mg tablet,extended release 24 hr RxNorm: 742581 Tablet(s) TAKE TWO TABLETS BY MOUTH TWICE A DAY 08/28/2016 02/23/2017 Inactive Lopressor 100 mg tablet RxNorm: 538666 TAKE ONE TABLET BY MOUTH DAILY 06/27/2016 04/15/2017 Inactive cetirizine 10 mg tablet RxNorm: 5826272 1 Tablet(s) PO daily 07/11/2016 Inactive Flonase Allergy Relief 50 mcg/actuation nasal spray, suspension RxNorm: 8846896 1 Barney NASAL BID 06/12/20162016 Inactive cyanocobalamin (vit B-12) 1,000 mcg/mL injection solution RxNorm: 157743 Milliliter(s) Inj 06/12/2016 06/12/2016 Inactive spironolactone 25 mg tablet RxNorm: 817530 TAKE ONE TABLET BY MOUTH TWICE A DAY 06/06/2016 03/02/2017 Inactive Request already responded to by other means (e.g. phone or fax) spironolactone 25 mg tablet RxNorm: 005677 Tablet(s) TAKE ONE TABLET BY MOUTH TWICE A DAY 05/29/2016 06/05/2016 Inactive ceftriaxone 500 mg solution for injection RxNorm: 4743516 2 Milliliter(s) Inj 05/04/2016 05/04/2016 Inactive cyanocobalamin (vit B-12) 1,000 mcg/mL injection solution RxNorm: 995569 Milliliter(s) Inj 05/04/2016 05/04/2016 Inactive Cipro 500 mg tablet RxNorm: 308241 1 Tablet(s) PO BID 201505/10/2016 Inactive OneTouch Ultra Test strips RxNorm: TEST DAILY 04/24/2016 04/18/2017 Inactive Byetta 10 mcg/dose(250 mcg/mL)2.4 mL subcutaneous pen injector RxNorm: 944852 INJECT 10 MCG UNDER THE SKIN TWO TIMES A DAY ( START AFTER 5 MCG DOSE IS COMPLETE ) 04/18/2016 03/13/2017 Inactive Lasix 20 mg tablet RxNorm: 070413 TAKE ONE TABLET BY MOUTH EVERY DAY NEEDED FOR SWELLING. TAKE POTASSIUM WITH EACH DOSE 04/07/2016 09/03/2016 Inactive potassium chloride ER 20 mEq tablet,extended release(part/ cryst) RxNorm: 2436463 TAKE ONE TABLET BY MOUTH DAILY WHEN YOU TAKE LASIX (FUROSEMIDE) 04/07/2016 09/03/2016 Inactive triamcinolone acetonide 0.5 % topical cream RxNorm: 9986423 1 Application TOP BID to lesions on buttock 03/30/20162015 Inactive metformin ER 500 mg tablet,extended release 24 hr RxNorm: 135147 TAKE TWO TABLETS BY MOUTH TWICE A DAY 03/23/20162016 Inactive glipizide 10 mg tablet RxNorm: 571076 TAKE ONE TABLET BY MOUTH TWICE A DAY 03/17/2016 11/11/2016 Inactive Request already responded to by other means (e.g. phone or fax) cyanocobalamin (vit B-12) 1,000 mcg/mL injection solution RxNorm: 821260 Milliliter(s) Inj 03/17/2016 03/17/2016 Inactive glipizide 10 mg tablet RxNorm: 521991 Tablet(s) TAKE ONE TABLET BY MOUTH TWICE A DAY 03/13/2016 03/16/2016 Inactive Tricor 145 mg tablet RxNorm: 712984 TAKE ONE TABLET BY MOUTH ONCE A DAY 02/18/2016 02/11/2017 Inactive Request already responded to by other means (e.g. phone or fax) amlodipine 5 mg tablet RxNorm: 308427 TAKE ONE TABLET BY MOUTH TWICE A DAY 02/18/2016 08/15/2016 Inactive Request already responded to by other means (e.g. phone or fax) cyanocobalamin (vit B-12) 1,000 mcg/mL injection solution RxNorm: 924074 1 Milliliter(s) Inj 02/15/2016 02/15/2016 Inactive amlodipine 5 mg tablet RxNorm: 063674 Tablet(s) TAKE ONE TABLET BY MOUTH TWICE A DAY 02/14/2016 02/17/2016 Inactive Tricor 145 mg tablet RxNorm: 686231 1 Tablet(s) PO daily TAKE ONE TABLET BY MOUTH ONCE A DAY 02/14/2016 02/17/2016 Inactive Synthroid 50 mcg tablet RxNorm: 202384 TAKE ONE TABLET BY MOUTH EVERY DAY. 01/31/2016 08/27/2016 Inactive hydrocodone 5 mg-acetaminophen 325 mg tablet RxNorm: 133327 1-2 Tablet(s) PO Q4 PRN as needed pain 01/28/2016 No Stop Date Active cyanocobalamin (vit B-12) 1,000 mcg/mL injection solution RxNorm: 781340 Milliliter(s) Inj 01/19/2016 01/19/2016 Inactive metformin ER 500 mg tablet,extended release 24 hr RxNorm: 550610 TAKE TWO TABLETS BY MOUTH TWICE A DAY 01/18/20162015 Inactive cyanocobalamin (vit B-12) 1,000 mcg/mL injection solution RxNorm: 285300 1 Milliliter(s) Inj 12/07/2015 12/07/2015 Inactive metformin ER 500 mg tablet,extended release 24 hr RxNorm: 325895 TAKE TWO TABLETS BY MOUTH TWICE A DAY 10/18/20152015 Inactive simvastatin 20 mg tablet RxNorm: 042566 1 Tablet(s) PO QHS TAKE ONE TABLET BY MOUTH AT BEDTIME 10/08/2015 10/01/2016 Inactive Tenex 1 mg tablet RxNorm: 811607 TAKE ONE TABLET BY MOUTH DAILY 10/04/2015 09/27/2016 Inactive Lopressor 100 mg tablet RxNorm: 284906 TAKE ONE TABLET BY MOUTH DAILY 09/20/2015 06/15/2016 Inactive Diflucan 150 mg tablet RxNorm: 440757 1 Tablet(s) PO daily 02/201609/12/2015 Inactive cyanocobalamin (vit B-12) 1,000 mcg/mL injection kit RxNorm: 675822 kit Inj 09/06/2015 09/06/2015 Inactive gentamicin 0.3 % eye drops RxNorm: 152240 2 Drop(s) OPH QID 02/201609/12/2015 Inactive ceftriaxone 500 mg solution for injection RxNorm: 7902683 Inj 09/06/2015 09/06/2015 Inactive Keflex 500 mg capsule RxNorm: 634511 1 Capsule(s) PO TID 201509/12/2015 Inactive hydrocodone 5 mg-acetaminophen 325 mg tablet RxNorm: 656286 1-2 Tablet(s) PO Q4 PRN as needed pain 08/09/2015 01/27/2016 Inactive Lortab 5 mg-500 mg tablet RxNorm: 006506 1-2 Tablet(s) PO Q4 PRN as needed pain 08/03/2015 08/08/2015 Inactive Diflucan 150 mg tablet RxNorm: 100517 1 Tablet(s) PO daily 07/16/2015 Inactive Lasix 20 mg tablet RxNorm: 179004 TAKE ONE TABLET BY MOUTH EVERY DAY NEEDED FOR SWELLING. TAKE POTASSIUM WITH EACH DOSE 07/13/2015 01/08/2016 Inactive spironolactone 25 mg tablet RxNorm: 594240 TAKE ONE TABLET BY MOUTH TWICE A DAY 07/13/2015 05/07/2016 Inactive potassium chloride ER 20 mEq tablet,extended release(part/ cryst) RxNorm: 051094 TAKE ONE TABLET BY MOUTH DAILY WHEN YOU TAKE LASIX (FUROSEMIDE) 07/13/2015 01/08/2016 Inactive Tessalon Perles 100 mg capsule RxNorm: 459476 1 Capsule(s) PO TID PRN 07/05/2015 08/31/2016 Inactive Keflex 500 mg capsule RxNorm: 389624 1 Capsule(s) PO TID 201407/14/2015 Inactive Kenalog 40 mg/mL suspension for injection RxNorm: 9017302 Milliliter(s) Inj 07/05/2015 07/05/2015 Inactive ceftriaxone 500 mg solution for injection RxNorm: 8740537 Inj 07/05/2015 07/05/2015 Inactive cyanocobalamin (vit B-12) 1,000 mcg/mL injection solution RxNorm: 201058 Milliliter(s) Inj 06/28/2015 06/28/2015 Inactive Synthroid 50 mcg tablet RxNorm: 476311 TAKE ONE TABLET BY MOUTH EVERY DAY. 06/21/2015 11/17/2015 Inactive metformin ER 500 mg tablet,extended release 24 hr RxNorm: 125553 TAKE TWO TABLETS BY MOUTH TWICE A DAY 06/14/20152015 Inactive glipizide 10 mg tablet RxNorm: 792194 TAKE ONE TABLET BY MOUTH TWICE A DAY 05/31/2015 02/24/2016 Inactive cyanocobalamin (vit B-12) 1,000 mcg/mL injection solution RxNorm: 960828 Milliliter(s) Inj 05/13/2015 05/13/2015 Inactive Tricor 145 mg tablet RxNorm: 224603 1 Tablet(s) PO daily TAKE ONE TABLET BY MOUTH ONCE A DAY 05/07/2015 05/06/2015 Inactive Tricor 145 mg tablet RxNorm: 656317 1 Tablet(s) PO daily TAKE ONE TABLET BY MOUTH ONCE A DAY 05/07/2015 01/31/2016 Inactive Tricor 145 mg tablet RxNorm: 948704 TAKE ONE TABLET BY MOUTH ONCE A DAY 05/06/2015 05/06/2015 Inactive Byetta 10 mcg/dose(250 mcg/mL)2.4 mL subcutaneous pen injector RxNorm: 397852 Microgram(s) SQ 10mcg twice daily ( start after 5mcg dose is complete) 04/01/2015 03/25/2016 Inactive Byetta 5 mcg/dose (250 mcg/mL)1.2 mL subcutaneous pen injector RxNorm: 246705 Microgram(s) SQ 5mcg twice daily x 1 month 03/04/2015 04/02/2015 Inactive Byetta 10 mcg/dose(250 mcg/mL)2.4 mL subcutaneous pen injector RxNorm: 201287 Microgram(s) SQ 10mcg twice daily ( start after 5mcg dose is complete) 03/04/2015 03/31/2015 Inactive Byetta 5 mcg/dose (250 mcg/mL)1.2 mL subcutaneous pen injector RxNorm: 833683 Microgram(s) SQ 5mcg twice daily x 1 month 03/04/2015 03/03/2015 Inactive Byetta 10 mcg/dose(250 mcg/mL)2.4 mL subcutaneous pen injector RxNorm: 252186 Microgram(s) SQ 10mcg twice daily ( start after 5mcg dose is complete) 03/04/2015 03/03/2015 Inactive cyanocobalamin (vit B-12) 1,000 mcg/mL injection solution RxNorm: 705787 Milliliter(s) Inj 02/23/2015 02/23/2015 Inactive cyanocobalamin (vit B-12) 1,000 mcg/mL injection solution RxNorm: 212432 Milliliter(s) Inj 01/08/2015 01/08/2015 Inactive simvastatin 20 mg tablet RxNorm: 137504 TAKE ONE TABLET BY MOUTH AT BEDTIME 01/07/2015 10/03/2015 Inactive Lortab 5 mg-500 mg tablet RxNorm: 403731 1-2 Tablet(s) PO Q4 PRN as needed q 4- 6hrs prn pain 12/15/2014 08/02/2015 Inactive Lortab 5 mg-500 mg tablet RxNorm: 168757 1-2 Tablet(s) PO Q4 PRN as needed q 4- 6hrs prn pain 12/15/2014 08/02/2015 Inactive amlodipine 5 mg tablet RxNorm: 820157 TAKE ONE TABLET BY MOUTH TWICE A DAY 12/14/2014 12/13/2014 Inactive amlodipine 5 mg tablet RxNorm: 826234 TAKE ONE TABLET BY MOUTH TWICE A DAY 12/14/2014 03/13/2015 Inactive cyanocobalamin (vit B-12) 1,000 mcg/mL injection solution RxNorm: 388932 Milliliter(s) Inj 12/08/2014 12/08/2014 Inactive Synthroid 50 mcg tablet RxNorm: 750458 TAKE ONE TABLET BY MOUTH EVERY DAY. 10/29/2014 04/26/2015 Inactive Lasix 20 mg tablet RxNorm: 810387 Tablet(s) TAKE ONE TABLET BY MOUTH EVERY DAY NEEDED FOR SWELLING. TAKE POTASSIUM WITH EACH DOSE 201405/25/2015 Inactive potassium chloride ER 20 mEq tablet,extended release(part/ cryst) RxNorm: 184065 Tablet(s) TAKE ONE TABLET BY MOUTH EVERY DAY WHEN YOU TAKE LASIX (FUROSEMIDE) 10/28/2014 05/25/2015 Inactive cyanocobalamin (vit B-12) 1,000 mcg/mL injection solution RxNorm: 759687 Milliliter(s) Inj 10/26/2014 10/26/2014 Inactive OneTouch Ultra Test strips RxNorm: TEST TWO TIMES A DAY 201405/10/2028 Active OneTouch Ultra Test strips RxNorm: 1 Miscellaneous BID 201410/21/2014 Inactive dx: 250.02 Victoza 2-J Luis 0.6 mg/0.1 mL (18 mg/3 mL) subcutaneous pen injector RxNorm: 610936 1.8 Milligram(s) SQ daily 09/24/201402/22 Inactive cyanocobalamin (vit B-12) 1,000 mcg/mL injection solution RxNorm: 659063 Milliliter(s) Inj 09/24/2014 09/24/2014 Inactive Tenex 1 mg tablet RxNorm: 135064 1 Tablet(s) PO daily TAKE ONE TABLET BY MOUTH EVERY DAY 09/24/2014 10/03/2015 Inactive Lopressor 100 mg tablet RxNorm: 248599 TAKE ONE TABLET BY MOUTH EVERY DAY 09/14/2014 06/10/2015 Inactive Lopressor 100 mg tablet RxNorm: 026151 1 Tablet(s) PO daily TAKE ONE TABLET BY MOUTH EVERY DAY 09/14/2014 09/13/2014 Inactive cyanocobalamin (vit B-12) 1,000 mcg/mL injection solution RxNorm: 379470 Milliliter(s) Inj 08/24/2014 08/24/2014 Inactive [SAVINGS FOR UNINSURED PATIENTS - - BIN:[id number], PCN: [id number], Group: [id number], ID# [id number], Process claim through [employer], for questions: . THIS IS NOT INSURANCE.] Victoza 2-J Luis 0.6 mg/0.1 mL (18 mg/3 mL) subcutaneous pen injector RxNorm: 341687 1.2 Milligram(s) SQ daily 08/05/201409/23 Inactive glipizide 10 mg tablet RxNorm: 303313 TAKE ONE TABLET BY MOUTH TWICE A DAY 07/28/2014 05/23/2015 Inactive Tenex 1 mg tablet RxNorm: 746780 TAKE ONE TABLET BY MOUTH EVERY DAY 07/02/2014 07/01/2014 Inactive Tenex 1 mg tablet RxNorm: 350888 TAKE ONE TABLET BY MOUTH EVERY DAY 07/02/2014 09/23/2014 Inactive spironolactone 25 mg tablet RxNorm: 176079 TAKE ONE TABLET BY MOUTH TWICE A DAY 07/02/2014 04/27/2015 Inactive spironolactone 25 mg tablet RxNorm: 187477 Tablet(s) PO TAKE ONE TABLET BY MOUTH TWICE A DAY 06/30/2014 07/01/2014 Inactive Tenex 1 mg tablet RxNorm: 196911 Tablet(s) PO TAKE ONE TABLET BY MOUTH EVERY DAY 06/30/2014 07/01/2014 Inactive Lortab 5 mg-500 mg tablet RxNorm: 632183 1-2 Tablet(s) PO Q4 PRN as needed q 4- 6hrs prn pain 06/22/2014 12/14/2014 Inactive metformin ER 500 mg tablet,extended release 24 hr RxNorm: 405249 Tablet(s) PO TAKE TWO TABLETS BY MOUTH TWICE A DAY 06/05/2014 06/13/2015 Inactive [SAVINGS FOR UNINSURED PATIENTS -- BIN:[id number], PCN: [id number], Group: [id number], ID# [id number], Process claim through [employer], for questions: . THIS IS NOT INSURANCE.] cyanocobalamin (vit B-12) 1,000 mcg/mL injection solution RxNorm: 953516 1 Milliliter(s) Inj monthly 06/01/201406/01 Inactive Kenalog 40 mg/mL suspension for injection RxNorm: 1178063 1 Milliliter(s) Inj 05/11/2014 05/11/2014 Inactive cyanocobalamin (vit B-12) 1,000 mcg/mL injection kit RxNorm: 260893 Milliliter(s) Inj 04/27/2014 04/27/2014 Inactive amlodipine 5 mg tablet RxNorm: 155966 TAKE ONE TABLET BY MOUTH TWICE A DAY 04/02/2014 07/30/2014 Inactive cyanocobalamin (vit B-12) 1,000 mcg/mL injection kit RxNorm: 838911 1 Milliliter(s ) Inj 03/24/2014 03/24/2014 Inactive [SAVINGS FOR UNINSURED PATIENTS -- BIN:[id number] , PCN: [id number], Group: [id number], ID# [id number], Process claim through [employer], for questions: . THIS IS NOT INSURANCE.] cyanocobalamin (vit B-12) 1,000 mcg/mL injection solution RxNorm: 821523 1 Milliliter(s) Inj 03/24/2014 03/24/2014 Inactive Synthroid 50 mcg tablet RxNorm: 344621 TAKE ONE TABLET BY MOUTH EVERY DAY. 03/01/2014 09/26/2014 Inactive Lasix 20 mg tablet RxNorm: 558955 TAKE ONE TABLET BY MOUTH EVERY DAY NEEDED FOR SWELLING. TAKE POTASSIUM WITH EACH DOSE 03/01/2014 09/26/2014 Inactive potassium chloride ER 20 mEq tablet,extended release(part/ cryst) RxNorm: 359167 TAKE ONE TABLET BY MOUTH EVERY DAY WHEN YOU TAKE LASIX (FUROSEMIDE) 03/01/2014 09/26/2014 Inactive cyanocobalamin (vit B-12) 1,000 mcg/mL injection solution RxNorm: 165998 1 Milliliter(s) Inj 02/24/2014 02/24/2014 Inactive Tricor 145 mg tablet RxNorm: 145379 TAKE ONE TABLET BY MOUTH EVERY DAY 02/16/2014 02/15/2014 Inactive Victoza 2-J Luis 0.6 mg/0.1 mL (18 mg/3 mL) subcutaneous pen injector RxNorm: 818257 1.2 Milligram(s) SQ daily 02/16/201408/04 Inactive Tricor 145 mg tablet RxNorm: 126812 TAKE ONE TABLET BY MOUTH EVERY DAY 02/16/2014 06/15/2014 Inactive Synthroid 50 mcg tablet RxNorm: 717534 TAKE ONE TABLET BY MOUTH EVERY DAY. 02/02/2014 03/03/2014 Inactive Synthroid 50 mcg tablet RxNorm: 535596 TAKE ONE TABLET BY MOUTH EVERY DAY. 02/02/2014 02/01/2014 Inactive simvastatin 20 mg tablet RxNorm: 500466 TAKE ONE TABLET BY MOUTH AT BEDTIME 01/12/2014 01/06/2015 Inactive cyanocobalamin (vit B-12) 1,000 mcg/mL injection solution RxNorm: 134729 Milliliter(s) Inj 01/09/2014 01/09/2014 Inactive Lortab 5 mg-500 mg tablet RxNorm: 353931 1-2 Tablet(s) PO Q4 PRN q 4-6hrs prn pain 12/23/2013 No Stop Date Active Lasix 20 mg tablet RxNorm: 492230 Tablet(s) PO TAKE ONE TABLET BY MOUTH EVERY DAY NEEDED FOR SWELLING. TAKE POTASSIUM WITH EACH DOSE 12/201302/28/2014 Inactive potassium chloride ER 20 mEq tablet,extended release(part/ cryst) RxNorm: 732049 Tablet(s) PO TAKE ONE TABLET BY MOUTH EVERY DAY WHEN YOU TAKE LASIX (FUROSEMIDE ) 12/02/2013 02/28/2014 Inactive Lomotil 2.5 mg-0.025 mg tablet RxNorm: 9152285 Tablet(s) PO TAKE ONE TABLET BY MOUTH EVERY 8 HOURS NEEDED 11/27/2013 No Stop Date Active (Appended: Controlled substance eRx refill - RxReferenceNumber: [id number]) Lomotil 2.5 mg-0.025 mg tablet RxNorm: 5050556 1 Tablet(s) PO Q8 PRN 11/27/2013 05/25/2014 Inactive cyanocobalamin (vit B-12) 1,000 mcg/mL injection solution RxNorm: 635996 1 Milliliter(s) Inj 11/27/2013 11/27/2013 Inactive Vitamin B-12 1,000 mcg/mL injection solution RxNorm: 992014 1 Milliliter(s) Inj monthly 11/24/2013 11/18/2014 Inactive ok to give multidose if available Synthroid 50 mcg tablet RxNorm: 757790 Tablet(s) PO TAKE ONE TABLET BY MOUTH EVERY DAY. 10/31/2013 02/01/2014 Inactive simvastatin 20 mg tablet RxNorm: 847972 Tablet(s) PO TAKE ONE TABLET BY MOUTH AT BEDTIME 10/10/2013 01/11/2014 Inactive Vitamin B-12 1,000 mcg/mL injection solution RxNorm: 766840 1 Milliliter(s) Inj monthly 09/30/2013 09/29/2013 Inactive ok to give multidose if available Vitamin B-12 1,000 mcg/mL injection solution RxNorm: 862496 1 Milliliter(s) Inj monthly 09/30/2013 11/23/2013 Inactive ok to give multidose if available Vitamin B-12 1,000 mcg/mL injection solution RxNorm: 926384 1 Milliliter(s) Inj 09/18/2013 09/18/2013 Inactive Lopressor 100 mg tablet RxNorm: 343952 Tablet(s) PO TAKE ONE TABLET BY MOUTH EVERY DAY 09/15/2013 09/13/2014 Inactive Vitamin B-12 1,000 mcg/mL injection solution RxNorm: 321905 1 Milliliter(s) Inj 08/22/2013 08/22/2013 Inactive glipizide 10 mg tablet RxNorm: 507537 Tablet(s) PO TAKE ONE TABLET BY MOUTH TWICE A DAY 08/15/2013 07/27/2014 Inactive Tenex 1 mg tablet RxNorm: 277662 Tablet(s) PO TAKE ONE TABLET BY MOUTH EVERY DAY 08/05/2013 06/29/2014 Inactive potassium chloride ER 20 mEq tablet,extended release(part/ cryst) RxNorm: 444610 Tablet(s) PO TAKE ONE TABLET BY MOUTH EVERY DAY WHEN YOU TAKE LASIX (FUROSEMIDE ) 07/31/2013 12/01/2013 Inactive spironolactone 25 mg tablet RxNorm: 206557 Tablet(s) PO TAKE ONE TABLET BY MOUTH TWICE A DAY 07/31/2013 06/29/2014 Inactive Lasix 20 mg tablet RxNorm: 860705 Tablet(s) PO TAKE ONE TABLET BY MOUTH EVERY DAY NEEDED FOR SWELLING. TAKE POTASSIUM WITH EACH DOSE 08/201312/01/2013 Inactive Vitamin B-12 1,000 mcg/mL injection solution RxNorm: 973173 Milliliter(s) Inj 07/28/2013 07/28/2013 Inactive Synthroid 50 mcg tablet RxNorm: 744554 Tablet(s) PO TAKE ONE TABLET BY MOUTH EVERY DAY. PATIENT DUE FOR TSH LEVEL LAB 06/30/2013 06/29/2013 Inactive Synthroid 50 mcg tablet RxNorm: 849981 Tablet(s) PO TAKE ONE TABLET BY MOUTH EVERY DAY. PATIENT DUE FOR TSH LEVEL LAB 06/30/2013 10/30/2013 Inactive potassium chloride ER 20 mEq tablet,extended release(part/ cryst) RxNorm: 384025 Tablet(s) PO TAKE ONE TABLET BY MOUTH EVERY DAY WHEN YOU TAKE LASIX (FUROSEMIDE ) 06/23/2013 07/30/2013 Inactive Lasix 20 mg tablet RxNorm: 202912 Tablet(s) PO TAKE ONE TABLET BY MOUTH EVERY DAY NEEDED FOR SWELLING. TAKE POTASSIUM WITH EACH DOSE 07/30/2013 Inactive amlodipine 5 mg tablet RxNorm: 311224 Tablet(s) PO TAKE ONE TABLET BY MOUTH TWICE A DAY 06/17/2013 04/01/2014 Inactive metformin ER 500 mg tablet,extended release 24 hr RxNorm: 145422 Tablet(s) PO TAKE TWO TABLETS BY MOUTH TWICE A DAY 05/26/2013 06/04/2014 Inactive metformin ER 500 mg tablet,extended release 24 hr RxNorm: 375776 Tablet(s) PO TAKE TWO TABLETS BY MOUTH TWICE A DAY 05/26/2013 05/25/2013 Inactive Vitamin B-12 1,000 mcg/mL injection solution RxNorm: 811937 1 Milliliter(s) Inj 05/21/2013 05/21/2013 Inactive Vitamin B-12 1,000 mcg/mL Injection RxNorm: 657578 Milliliter(s) Inj 04/23/2013 04/23/2013 Inactive Influenza Virus Vaccine 0.5 mL RxNorm: IM 04/23/2013 04/23/2013 Inactive Synthroid 50 mcg tablet RxNorm: 707530 Tablet(s) PO TAKE ONE TABLET BY MOUTH EVERY DAY. PATIENT DUE FOR TSH LEVEL LAB 04/17/2013 06/29/2013 Inactive Lasix 20 mg tablet RxNorm: 051865 Tablet(s) PO TAKE ONE TABLET BY MOUTH EVERY DAY NEEDED FOR SWELLING. TAKE POTASSIUM WITH EACH DOSE 06/22/2013 Inactive potassium chloride ER 20 mEq tablet,extended release(part/ cryst) RxNorm: 0713680 Tablet(s) PO TAKE ONE TABLET BY MOUTH EVERY DAY WHEN YOU TAKE LASIX (FUROSEMIDE ) 04/17/2013 06/22/2013 Inactive simvastatin 20 mg tablet RxNorm: 681240 Tablet(s) PO TAKE ONE TABLET BY MOUTH AT BEDTIME 04/10/2013 10/09/2013 Inactive Vitamin B-12 1,000 mcg/mL Injection RxNorm: 545307 1 Milliliter(s) Inj 03/24/2013 03/24/2013 Inactive Lopressor 100 mg tablet RxNorm: 617932 Tablet(s) PO TAKE ONE TABLET BY MOUTH EVERY DAY 03/18/2013 09/14/2013 Inactive cyanocobalamin (vitamin B-12) 1,000 mcg/mL Injection RxNorm: 217786 Milliliter(s) Inj 02/20/2013 02/20/2013 Inactive Tricor 145 mg tablet RxNorm: 504245 Tablet(s) PO TAKE ONE TABLET BY MOUTH EVERY DAY 02/14/2013 02/15/2014 Inactive Vitamin B-12 1,000 mcg/mL Injection RxNorm: 711995 1 Milliliter(s) Inj 01/22/2013 01/22/2013 Inactive potassium chloride ER 20 mEq tablet,extended release(part/ cryst) RxNorm: 8802906 1 Tablet(s) PO QDAY PRN take when taking prn lasix 201204/16/2013 Inactive Lasix 20 mg tablet RxNorm: 684363 1 Tablet(s) PO QDAY PRN daily prn swelling - to take kcl with lasix 01/22/20132012 Inactive cyanocobalamin (vitamin B-12) 1,000 mcg/mL Injection RxNorm: 014401 Milliliter(s) Inj 12/19/2012 12/19/2012 Inactive cyanocobalamin (vitamin B-12) 1,000 mcg/mL Injection RxNorm: 342594 Milliliter(s) Inj 11/20/2012 11/20/2012 Inactive Diflucan 150 mg tablet RxNorm: 627393 1 Tablet(s) PO daily 11/21/2012 Inactive Synthroid 50 mcg tablet RxNorm: 715372 Tablet(s) PO TAKE ONE TABLET BY MOUTH EVERY DAY. PATIENT DUE FOR TSH LEVEL LAB 11/18/2012 04/16/2013 Inactive Keflex 500 mg capsule RxNorm: 047566 1 Capsule(s) PO TID 201211/19/2012 Inactive Keflex 500 mg capsule RxNorm: 587866 1 Capsule(s) PO TID 201211/12/2012 Inactive Byetta 10 mcg/0.04 mL per dose Sub-Q Pen Injector RxNorm: 714700 Pen Injector SQ DIAL AND INJECT SUBCUTANEOUSLY 10 MCG TWICE DAILY WITHIN 60 MINUTES BEFORE MORNING AND EVENING MEALS. DO NOT ADMINISTER AFTER A MEAL. 04/03/2014 Inactive cyanocobalamin (vitamin B-12) 1,000 mcg/mL Injection RxNorm: 957548 1 Milliliter(s ) Inj 10/23/2012 10/23/2012 Inactive Lortab 5 mg-500 mg tablet RxNorm: 863369 1-2 Tablet(s) PO Q4 PRN q 4-6hrs prn pain 10/02/2012 12/22/2013 Inactive cyanocobalamin (vitamin B-12) 1,000 mcg/mL Injection RxNorm: 529948 Milliliter(s) Inj 09/16/2012 09/16/2012 Inactive Vitamin B-12 1,000 mcg/mL Injection RxNorm: 836984 1 Milliliter(s) Inj 08/15/2012 08/15/2012 Inactive glipizide 10 mg tablet RxNorm: 480742 Tablet(s) PO TAKE ONE TABLET BY MOUTH TWICE A DAY 08/12/2012 08/14/2013 Inactive Tenex 1 mg tablet RxNorm: 721843 Tablet(s) PO TAKE ONE TABLET BY MOUTH EVERY DAY 08/12/2012 08/04/2013 Inactive Kenalog 40 mg/mL Susp for Injection RxNorm: 8210885 1 Milliliter(s) Inj 08/06/2012 01/22/2013 Inactive spironolactone 25 mg tablet RxNorm: 375964 Tablet(s) PO TAKE ONE TABLET BY MOUTH TWICE A DAY 07/29/2012 07/30/2013 Inactive cefdinir 300 mg capsule RxNorm: 632755 1 Capsule(s) PO BID 08/01/2012 Inactive cefdinir 300 mg capsule RxNorm: 147504 1 Capsule(s) PO BID 07/25/2012 Inactive Vitamin B-12 1,000 mcg/mL Injection RxNorm: 006512 1 Milliliter(s) Inj 07/19/2012 07/19/2012 Inactive simvastatin 20 mg tablet RxNorm: 537532 Tablet(s) PO TAKE ONE TABLET BY MOUTH AT BEDTIME 07/08/2012 04/09/2013 Inactive simvastatin 20 mg tablet RxNorm: 054395 Tablet(s) PO TAKE ONE TABLET BY MOUTH AT BEDTIME 07/08/2012 10/07/2015 Inactive Synthroid 50 mcg tablet RxNorm: 079282 1 Tablet(s) PO daily 12/201110/31/2012 Inactive Please advise patient due for TSH level. amlodipine 5 mg tablet RxNorm: 461384 1 Tablet(s) PO BID 201112/15/2012 Inactive amlodipine 5 mg tablet RxNorm: 733809 1 Tablet(s) PO BID 201106/18/2012 Inactive Vitamin B-12 1,000 mcg/mL Injection RxNorm: 207531 Milliliter(s) Inj 06/19/2012 06/19/2012 Inactive Lopressor 100 mg tablet RxNorm: 333057 Tablet(s) PO 06/17/2012 03/17/2013 Inactive TAKE ONE TABLET BY MOUTH EVERY DAY Vitamin B-12 1,000 mcg/mL Injection RxNorm: 454622 Milliliter(s) Inj 05/22/2012 05/22/2012 Inactive Synthroid 50 mcg tablet RxNorm: 596751 1 Tablet(s) PO daily 06/11/2012 Inactive Please advise patient due for TSH level. Diflucan 150 mg tablet RxNorm: 741982 1 Tablet(s) PO daily 11/18/2012 Inactive metformin ER 500 mg tablet,extended release 24 hr RxNorm: 512695 2 Tablet(s) PO BID 04/25/2012 05/19/2013 Inactive Vitamin B-12 1,000 mcg/mL Injection RxNorm: 254439 Milliliter(s) Inj 04/22/2012 04/22/2012 Inactive Vitamin B-12 1,000 mcg/mL Injection RxNorm: 129785 Milliliter(s) Inj 03/19/2012 03/19/2012 Inactive Vitamin B-12 1,000 mcg/mL Injection RxNorm: 270525 Milliliter(s) Inj 02/15/2012 02/15/2012 Inactive Tricor 145 mg tablet RxNorm: 756310 1 Tablet(s) PO daily 201102/13/2013 Inactive Vitamin B-12 1,000 mcg/mL Injection RxNorm: 583635 Milliliter(s) Inj 01/18/2012 01/18/2012 Inactive Kenalog 40 mg/mL Susp for Injection RxNorm: 3885434 1 Milliliter(s) Inj 12/28/2011 12/28/2011 Inactive Vitamin B-12 1,000 mcg/mL Injection RxNorm: 441097 Milliliter(s) Inj 12/20/2011 12/20/2011 Inactive omeprazole 20 mg Cap, delayed release RxNorm: 755684 1 Capsule(s) PO daily 12/07/2011 11/30/2012 Inactive may take bid if nec cyanocobalamin (vitamin B-12) 1,000 mcg/mL Injection RxNorm: 876858 1 Milliliter(s ) Inj 11/07/2011 11/07/2011 Inactive cyanocobalamin (vitamin B-12) 1,000 mcg/mL Injection RxNorm: 268581 1 Milliliter(s ) Inj 10/03/2011 10/03/2011 Inactive Synthroid 50 mcg tablet RxNorm: 431657 1 Tablet(s) PO daily 03/08/2012 Inactive Byetta 10 mcg/0.04 mL per dose Sub-Q Pen Injector RxNorm: 092801 10 Microgram(s) SQ BID 08/29/2011 09/21/2012 Inactive metformin ER 500 mg tablet,extended release 24 hr RxNorm: 746742 2 Tablet(s) PO BID 08/15/2011 02/10/2012 Inactive cyanocobalamin (vitamin B-12) 1,000 mcg/mL Injection RxNorm: 531742 1 Milliliter(s ) Inj 07/28/2011 07/28/2011 Inactive NovoFine 30 Needle RxNorm: 1 Miscellaneous BID 07/28/2011 03/18/2013 Inactive OneTouch Ultra Test strips RxNorm: 1 Miscellaneous BID 201003/18/2013 Inactive guanfacine 1 mg Tab RxNorm: 847793 1 Tablet(s) PO daily 201007/10/2012 Inactive glipizide 10 mg tablet RxNorm: 426859 1 Tablet(s) PO BID 201008/09/2012 Inactive Tenex 1 mg tablet RxNorm: 418008 1 Tablet(s) PO daily 201008/09/2012 Inactive lisinopril 20 mg tablet RxNorm: 593432 1 Tablet(s) PO daily pt 07/04/2011 04/21/2012 Inactive pt may have #90 with year if insurance pays spironolactone 25 mg tablet RxNorm: 981223 1 Tablet(s) PO BID 07/03/2011 07/26/2012 Inactive simvastatin 20 mg Tab RxNorm: 418774 1 Tablet(s) PO QHS 201006/28/2011 Inactive cyanocobalamin (vitamin B-12) 1,000 mcg/mL Injection RxNorm: 916949 Milliliter(s) Inj 06/29/2011 06/29/2011 Inactive simvastatin 20 mg tablet RxNorm: 881526 1 Tablet(s) PO QHS 07/201006/22/2012 Inactive Lopressor 100 mg tablet RxNorm: 449006 1 Tablet(s) PO daily 06/16/2012 Inactive ketorolac 60 mg/2 mL IM RxNorm: 662639 Milliliter(s) IM 201005/23/2011 Inactive cyanocobalamin (vitamin B-12) 1,000 mcg/mL Injection RxNorm: 125020 Milliliter(s) Inj 05/23/2011 05/23/2011 Inactive Influenza Virus Vaccine 0.5 mL RxNorm: IM 04/26/2011 04/26/2011 Inactive Vitamin B-12 1,000 mcg/mL Injection RxNorm: 996387 Milliliter(s) Inj 04/26/2011 04/26/2011 Inactive Lomotil 2.5 mg-0.025 mg tablet RxNorm: 4320177 1 Tablet(s) PO Q8 PRN 04/26/2011 11/27/2013 Inactive amiodarone 200 mg tablet RxNorm: 029533 1 Tablet(s) PO daily No Start Date Active atorvastatin 10 mg tablet RxNorm: 093990 1 Tablet(s) PO QHS No Start Date Active metoprolol succinate ER 100 mg tablet,extended release 24 hr RxNorm: 114828 1 Tablet(s) PO daily No Start Date Active warfarin 2 mg tablet RxNorm: 924427 1 Tablet(s) PO daily No Start Date Active clopidogrel 75 mg tablet RxNorm: 544090 1 Tablet(s) PO daily No Start Date Active aspirin 81 mg Tab, Delayed Release RxNorm: 714446 1 Tablet(s) PO daily No Start Date Active Vitamin D 1,000 unit Tab RxNorm: 754429 1 Tablet(s) PO daily No Start Date Active Tricor 145 mg Tab RxNorm: 501203 1 Tablet(s) PO daily No Start Date 02/07/2012 Inactive Synthroid 50 mcg Tab RxNorm: 024888 1 Tablet(s) PO daily No Start Date 09/10/2011 Inactive lisinopril 20 mg tablet RxNorm: 852588 1 Tablet(s) PO daily No Start Date 06/18/2012 Inactive Lortab 5 mg-500 mg tablet RxNorm: 408101 1 Tablet(s) PO Q4 PRN q 4hrs prn pain No Start Date 10/01/2012 Inactive Tenex 1 mg Tab RxNorm : 388051 1 Tablet(s) PO daily No Start Date 07/16/2011 Inactive lisinopril 40 mg tablet RxNorm: 633016 Tablet(s) PO No Start Date 05/21/2012 Inactive Voltaren 1 % Topical Gel RxNorm: 220873 TOP as directed No Start Date 11/29/2015 Inactive iron 325 mg (65 mg iron) Tab RxNorm: 752830 1 Tablet(s) PO daily No Start Date 02/22/2015 Inactive Zithromax Z-J Luis 250 mg tablet RxNorm: 651322 Tablet(s) PO UD No Start Date 01/22/2013 Inactive Byetta 10 mcg/0.04 mL per dose Sub-Q Pen Injector RxNorm: 557395 Milliliter(s) SQ BID No Start Date 08/28/2011 Inactive cyanocobalamin (vitamin B-12) 1,000 mcg/mL Injection RxNorm: 245917 1 Milliliter(s ) Inj month No Start Date 11/30/2015 Inactive Tessalon 200 mg capsule RxNorm: 335947 1 Capsule(s) PO TID PRN No Start Date 01/21/2013 Inactive Victoza 2-J Luis 0.6 mg/0.1 mL (18 mg/3 mL) subcutaneous pen injector RxNorm: 648648 1.2 Milligram(s) SQ daily No Start Date Inactive simvastatin 20 mg Tab RxNorm: 856669 1 Tablet(s) PO QHS No Start Date 06/28/2011 Inactive spironolactone 25 mg Tab RxNorm: 247647 1 Tablet(s) PO BID No Start Date 07/02/2011 Inactive Diflucan 150 mg tablet RxNorm: 214966 1 Tablet(s) PO daily No Start Date 04/24/2012 Inactive guanfacine 1 mg Tab RxNorm: 204166 1 Tablet(s) PO daily No Start Date 07/16/2011 Inactive Ativan 1 mg Tab RxNorm : 614489 1/2-1 Tablet(s) PO Q6 PRN 1/2 - 1 tab q 6 hours if needed for anxiety No Start Date 2013 Inactive metformin ER 500 mg 24 hr Tab RxNorm: 214688 2 Tablet(s) PO BID No Start Date 08/14/2011 Inactive Lopressor 100 mg Tab RxNorm: 057024 1 Tablet(s) PO daily No Start Date 06/26/2011 Inactive glipizide 10 mg Tab RxNorm: 301349 1 Tablet(s) PO BID No Start Date 07/16/2011 Inactive KCL 10 meq RxNorm: PO as directed daily when taking lasix No Start Date 01/22/2013 Inactive lisinopril 20 mg Tab RxNorm: 578468 1 Tablet(s) PO daily No Start Date 07/03/2011 Inactive One Touch Ultra Test Strips RxNorm: 1 Miscellaneous BID No Start Date 07/27/2011 Inactive omeprazole 20 mg Cap, delayed release RxNorm: 163370 1 Capsule(s) PO BID No Start Date 12/06/2011 Inactive Lasix 20 mg tablet RxNorm: 840035 Tablet(s) PO as directed daily prn swelling - to take kcl with lasix No Start Date 01/21 Inactive niacin 500 mg Tab RxNorm: 939488 1 Tablet(s) PO QHS No Start Date 04/03/2014 Inactive Medication Administered Medication Codes Instructions Start Date Status cyanocobalamin (vit B-12) 1,000 mcg/mL injection solution RxNorm: 779575 1Milliliter 08/21/2017 No longer Active cyanocobalamin (vit B-12) 1,000 mcg/mL injection solution RxNorm: 164196 1Milliliter 07/18/2017 No longer Active cyanocobalamin (vit B-12) 1,000 mcg/mL injection solution RxNorm: 735286 1Milliliter 06/18/2017 No longer Active Kenalog 40 mg/mL suspension for injection RxNorm: 2295382 1Milliliter 06/18/2017 No longer Active cyanocobalamin (vit B-12) 1,000 mcg/mL injection solution RxNorm: 045071 1Milliliter 05/09/2017 No longer Active cyanocobalamin (vit B-12) 1,000 mcg/mL injection solution RxNorm: 244863 1Milliliter 04/04/2017 No longer Active Kenalog 40 mg/mL suspension for injection RxNorm: 5232569 1Milliliter 02/23/2017 No longer Active cyanocobalamin (vit B-12) 1,000 mcg/mL injection solution RxNorm: 916517 Milliliter 01/23/2017 No longer Active cyanocobalamin (vit B-12) 1,000 mcg/mL injection solution RxNorm: 460644 1Milliliter 11/14/2016 No longer Active Kenalog 40 mg/mL suspension for injection RxNorm: 4232640 1Milliliter 09/07/2016 No longer Active cyanocobalamin (vit B-12) 1,000 mcg/mL injection solution RxNorm: 174136 1Milliliter 08/29/2016 No longer Active cyanocobalamin (vit B-12) 1,000 mcg/mL injection solution RxNorm: 153131 Milliliter 06/12/2016 No longer Active ceftriaxone 500 mg solution for injection RxNorm: 1559214 2Milliliter 05/04/2016 No longer Active cyanocobalamin (vit B-12) 1,000 mcg/mL injection solution RxNorm: 149700 Milliliter 05/04/2016 No longer Active cyanocobalamin (vit B-12) 1,000 mcg/mL injection solution RxNorm: 329427 Milliliter 03/17/2016 No longer Active cyanocobalamin (vit B-12) 1,000 mcg/mL injection solution RxNorm: 079665 1Milliliter 02/15/2016 No longer Active cyanocobalamin (vit B-12) 1,000 mcg/mL injection solution RxNorm: 738337 Milliliter 01/19/2016 No longer Active cyanocobalamin (vit B-12) 1,000 mcg/mL injection solution RxNorm: 627946 1Milliliter 12/07/2015 No longer Active cyanocobalamin (vit B-12) 1,000 mcg/mL injection kit RxNorm : 694762 kit 09/06/2015 No longer Active ceftriaxone 500 mg solution for injection RxNorm: 5218828 09/06/2015 No longer Active ceftriaxone 500 mg solution for injection RxNorm: 8180214 07/05/2015 No longer Active Kenalog 40 mg/mL suspension for injection RxNorm: 8426719 Milliliter 07/05/2015 No longer Active cyanocobalamin (vit B-12) 1,000 mcg/mL injection solution RxNorm: 582605 Milliliter 06/28/2015 No longer Active cyanocobalamin (vit B-12) 1,000 mcg/mL injection solution RxNorm: 526607 Milliliter 05/13/2015 No longer Active cyanocobalamin (vit B-12) 1,000 mcg/mL injection solution RxNorm: 327676 Milliliter 02/23/2015 No longer Active cyanocobalamin (vit B-12) 1,000 mcg/mL injection solution RxNorm: 854620 Milliliter 01/08/2015 No longer Active cyanocobalamin (vit B-12) 1,000 mcg/mL injection solution RxNorm: 445765 Milliliter 12/08/2014 No longer Active cyanocobalamin (vit B-12) 1,000 mcg/mL injection solution RxNorm: 288263 Milliliter 10/26/2014 No longer Active cyanocobalamin (vit B-12) 1,000 mcg/mL injection solution RxNorm: 298899 Milliliter 09/24/2014 No longer Active cyanocobalamin (vit B-12) 1,000 mcg/mL injection solution RxNorm: 049883 Milliliter 08/24/2014 No longer Active cyanocobalamin (vit B-12) 1,000 mcg/mL injection solution RxNorm: 662488 1Milliliter 06/01/2014 No longer Active Kenalog 40 mg/mL suspension for injection RxNorm: 0319992 1Milliliter 05/11/2014 No longer Active cyanocobalamin (vit B-12) 1,000 mcg/mL injection kit RxNorm : 294549 Milliliter 04/27/2014 No longer Active cyanocobalamin (vit B-12) 1,000 mcg/mL injection kit RxNorm : 785590 1Milliliter 03/24/2014 No longer Active cyanocobalamin (vit B-12) 1,000 mcg/mL injection solution RxNorm: 573985 1Milliliter 03/24/2014 No longer Active cyanocobalamin (vit B-12) 1,000 mcg/mL injection solution RxNorm: 321625 1Milliliter 02/24/2014 No longer Active cyanocobalamin (vit B-12) 1,000 mcg/mL injection solution RxNorm: 676052 Milliliter 01/09/2014 No longer Active cyanocobalamin (vit B-12) 1,000 mcg/mL injection solution RxNorm: 020884 1Milliliter 11/27/2013 No longer Active Vitamin B-12 1,000 mcg/mL injection solution RxNorm: 676813 1Milliliter 09/18/2013 No longer Active Vitamin B-12 1,000 mcg/mL injection solution RxNorm: 665720 1Milliliter 08/22/2013 No longer Active Vitamin B-12 1,000 mcg/mL injection solution RxNorm: 913511 Milliliter 07/28/2013 No longer Active Vitamin B-12 1,000 mcg/mL injection solution RxNorm: 733112 1Milliliter 05/21/2013 No longer Active Influenza Virus Vaccine 0.5 mL RxNorm: 04/23/2013 No longer Active Vitamin B-12 1,000 mcg/mL Injection RxNorm: 516760 Milliliter 04/23/2013 No longer Active Vitamin B-12 1,000 mcg/mL Injection RxNorm: 339240 1Milliliter 03/24/2013 No longer Active cyanocobalamin (vitamin B-12) 1,000 mcg/mL Injection RxNorm : 382879 Milliliter 02/20/2013 No longer Active Vitamin B-12 1,000 mcg/mL Injection RxNorm: 436894 1Milliliter 01/22/2013 No longer Active cyanocobalamin (vitamin B-12) 1,000 mcg/mL Injection RxNorm : 218911 Milliliter 12/19/2012 No longer Active cyanocobalamin (vitamin B-12) 1,000 mcg/mL Injection RxNorm : 050139 Milliliter 11/20/2012 No longer Active cyanocobalamin (vitamin B-12) 1,000 mcg/mL Injection RxNorm : 733009 1Milliliter 10/23/2012 No longer Active cyanocobalamin (vitamin B-12) 1,000 mcg/mL Injection RxNorm : 386119 Milliliter 09/16/2012 No longer Active Vitamin B-12 1,000 mcg/mL Injection RxNorm: 962613 1Milliliter 08/15/2012 No longer Active Vitamin B-12 1,000 mcg/mL Injection RxNorm: 378486 1Milliliter 07/19/2012 No longer Active Vitamin B-12 1,000 mcg/mL Injection RxNorm: 951479 Milliliter 06/19/2012 No longer Active Vitamin B-12 1,000 mcg/mL Injection RxNorm: 456031 Milliliter 05/22/2012 No longer Active Vitamin B-12 1,000 mcg/mL Injection RxNorm: 769819 Milliliter 04/22/2012 No longer Active Vitamin B-12 1,000 mcg/mL Injection RxNorm: 877807 Milliliter 03/19/2012 No longer Active Vitamin B-12 1,000 mcg/mL Injection RxNorm: 613067 Milliliter 02/15/2012 No longer Active Vitamin B-12 1,000 mcg/mL Injection RxNorm: 239042 Milliliter 01/18/2012 No longer Active Kenalog 40 mg/mL Susp for Injection RxNorm: 4830773 1Milliliter 12/28/2011 No longer Active Vitamin B-12 1,000 mcg/mL Injection RxNorm: 808199 Milliliter 12/20/2011 No longer Active cyanocobalamin (vitamin B-12) 1,000 mcg/mL Injection RxNorm : 497609 1Milliliter 11/07/2011 No longer Active cyanocobalamin (vitamin B-12) 1,000 mcg/mL Injection RxNorm : 146156 1Milliliter 10/03/2011 No longer Active cyanocobalamin (vitamin B-12) 1,000 mcg/mL Injection RxNorm : 290843 1Milliliter 07/28/2011 No longer Active cyanocobalamin (vitamin B-12) 1,000 mcg/mL Injection RxNorm : 275410 Milliliter 06/29/2011 No longer Active ketorolac 60 mg/2 mL IM RxNorm: 182496 Milliliter 05/23/2011 No longer Active cyanocobalamin (vitamin B-12) 1,000 mcg/mL Injection RxNorm : 704049 Milliliter 05/23/2011 No longer Active Influenza Virus Vaccine 0.5 mL RxNorm: 04/26/2011 No longer Active Vitamin B-12 1,000 mcg/mL Injection RxNorm: 056484 Milliliter 04/26/2011 No longer Active Immunizations Vaccine [...] 28.4 pg 06/07/2017 Cbc With Differential Ord2 Kendall% 12.6 % 06/07/2017 Cbc With Differential Ord2 [...] 1.23 K/ul 06/07/2017 Cbc With Differential Ord2 Kendall ABS# 0.7 K/ul 06/07/2017 Cbc With Differential Ord2 Eos ABS# 0.2 K/ul 06/07/2017 Cbc With Differential Ord2 Baso ABS# 0.0 K/ul 06/07/2017 Culture Urine [id number] URINE CULTURE SEE NOTES 05/08/2016 Culture Urine [id number] Continued Results 05/08/2016 Urine Culture Ucult Complete >100,000 col/ml aerobic growth sent to ref lab 05/05/2016 %SAT/TIBC [id number] TIBC 439 UG/DL 07/28/2013 %SAT/TIBC 1912769 % SATURAT 10 % 07/28/2013 %SAT/TIBC [id number] UIBC 395 MCG/DL 07/28/2013 CBC 2101800 WBC 6.2 10e9/L 07/28/2013 CBC 7151711 RBC 3.95 10e12/L 07/28/2013 CBC 4396370 HGB 11.2 g/dL 07/28/2013 CBC 6315546 HCT DET 34.2 % 07/28/2013 CBC 8124293 MCV 86.6 fL 07/28/2013 CBC 2470136 MCH 28.4 pg 07/28/2013 CBC 2950667 MCHC 32.7 g/dL 07/28/2013 CBC 7288612 PLT 231 10e9/L 07/28/2013 CBC 7415481 MPV 10.9 fL 07/28/2013 CBC 5922265 JAZMYN % 61.0 % 07/28/2013 CBC 4678682 LY % 27.8 % 07/28/2013 CBC 2407054 MON % 8.0 % 07/28/2013 CBC 7387733 EOS % 2.4 % 07/28/2013 CBC 0285719 BASO % 0.8 % 07/28/2013 CBC 8850281 RDW 14.0 % 07/28/2013 CBC 1431861 ABS JAZMYN 3.78 10e9/L 07/28/2013 CBC 2940066 ABS LYMPH 1.72 10e9/L 07/28/2013 CBC 9078988 ABS MONO 0.50 10e9/L 07/28/2013 CBC 1627659 ABS EOS 0.15 10e9/L 07/28/2013 CBC 1381221 ABS BASO 0.05 10e9/L 07/28/2013 CBC 6899466 RDW-SD 42.9 fL 07/28/2013 TSH 0228895 TSH 2.104 uIU/ML 07/28/2013 IRON TEST [id number] IRON TEST 44 UG/DL 07/28/2013 Review of [...] sounds 07/28/2013 None Full Exam - General 1995 Musculoskeletal [...] Procedure Codes Date THER/PROPH/DIAG INJ SC/IM CPT-4: 25982 08/21/2017 VITAMIN B12 INJECTION CPT-4: J3420 08/21/2017 THER/PROPH/DIAG INJ SC/IM CPT-4: 73680 07/18/2017 VITAMIN B12 INJECTION CPT-4: J3420 07/18/2017 TRIAMCINOLONE ACET INJ NOS CPT-4: J3301 06/18/2017 THER/PROPH/DIAG INJ SC/IM CPT-4: 93095 06/18/2017 VITAMIN B12 INJECTION CPT-4: J3420 06/18/2017 PRESCRIP TRANSMIT VIA ERX SY CPT-4: G8553 06/18/2017 THER/PROPH/DIAG INJ SC/IM CPT-4: 57931 05/09/2017 VITAMIN B12 INJECTION CPT-4: J3420 05/09/2017 ADMIN INFLUENZA VIRUS VAC CPT-4: G0008 04/25/2017 FLU VAC NO PRSV 4 JINNY 3 YRS+ CPT-4: 05265 04/25/2017 THER/PROPH/DIAG INJ SC/IM CPT-4: 37289 04/04/2017 VITAMIN B12 INJECTION CPT-4: J3420 04/04/2017 TRIAMCINOLONE ACET INJ NOS CPT-4: J3301 02/23/2017 VITAMIN B12 INJECTION CPT-4: J3420 02/23/2017 THER/PROPH/DIAG INJ SC/IM CPT-4: 82791 01/23/2017 VITAMIN B12 INJECTION CPT-4: J3420 01/23/2017 VITAMIN B12 INJECTION CPT-4: J3420 12/26/2016 THER/PROPH/DIAG INJ SC/IM CPT-4: 37893 12/26/2016 THER/PROPH/DIAG INJ SC/IM CPT-4: 00451 11/14/2016 VITAMIN B12 INJECTION CPT-4: J3420 11/14/2016 THER/PROPH/DIAG INJ SC/IM CPT-4: 81409 09/07/2016 TRIAMCINOLONE ACET INJ NOS CPT-4: J3301 09/07/2016 PRESCRIP TRANSMIT VIA ERX SY CPT-4: G8553 09/07/2016 THER/PROPH/DIAG INJ SC/IM CPT-4: 01828 08/29/2016 VITAMIN B12 INJECTION CPT-4: J3420 08/29/2016 PRESCRIP TRANSMIT VIA ERX SY CPT-4: G8553 08/29/2016 THER/PROPH/DIAG INJ SC/IM CPT-4: 41830 06/12/2016 VITAMIN B12 INJECTION CPT-4: J3420 06/12/2016 PRESCRIP TRANSMIT VIA ERX SY CPT-4: G8553 06/12/2016 URINALYSIS NONAUTO W/O SCOPE CPT-4: 99373 05/04/2016 ROCEPHIN, PER 250 MG CPT-4: J0696 05/04/2016 THER/PROPH/DIAG INJ SC/IM CPT-4: 91338 05/04/2016 VITAMIN B12 INJECTION CPT-4: J3420 05/04/2016 PRESCRIP TRANSMIT VIA ERX SY CPT-4: G8553 05/04/2016 PRESCRIP TRANSMIT VIA ERX SY CPT-4: G8553 03/30/2016 THER/PROPH/DIAG INJ SC/IM CPT-4: 47297 03/17/2016 VITAMIN B12 INJECTION CPT-4: J3420 03/17/2016 THER/PROPH/DIAG INJ SC/IM CPT-4: 13594 02/15/2016 VITAMIN B12 INJECTION CPT-4: J3420 02/15/2016 THER/PROPH/DIAG INJ SC/IM CPT-4: 35258 01/19/2016 VITAMIN B12 INJECTION CPT-4: J3420 01/19/2016 THER/PROPH/DIAG INJ SC/IM CPT-4: 95223 12/07/2015 VITAMIN B12 INJECTION CPT-4: J3420 12/07/2015 ROCEPHIN, PER 250 MG CPT-4: J0696 09/06/2015 THER/PROPH/DIAG INJ SC/IM CPT-4: 90581 09/06/2015 VITAMIN B12 INJECTION CPT-4: J3420 09/06/2015 PRESCRIP TRANSMIT VIA ERX SY CPT-4: G8553 09/06/2015 ROCEPHIN, PER 250 MG CPT-4: J0696 07/05/2015 TRIAMCINOLONE ACET INJ NOS CPT-4: J3301 07/05/2015 PRESCRIP TRANSMIT VIA ERX SY CPT-4: G8553 07/05/2015 THER/PROPH/DIAG INJ SC/IM CPT-4: 94769 06/28/2015 VITAMIN B12 INJECTION CPT-4: J3420 06/28/2015 THER/PROPH/DIAG INJ SC/IM CPT-4: 74712 05/13/2015 VITAMIN B12 INJECTION CPT-4: J3420 05/13/2015 THER/PROPH/DIAG INJ SC/IM CPT-4: 03079 02/23/2015 VITAMIN B12 INJECTION CPT-4: J3420 02/23/2015 THER/PROPH/DIAG INJ SC/IM CPT-4: 71928 01/08/2015 VITAMIN B12 INJECTION CPT-4: J3420 01/08/2015 THER/PROPH/DIAG INJ SC/IM CPT-4: 86880 12/08/2014 VITAMIN B12 INJECTION CPT-4: J3420 12/08/2014 THER/PROPH/DIAG INJ SC/IM CPT-4: 91639 10/26/2014 VITAMIN B12 INJECTION CPT-4: J3420 10/26/2014 VITAMIN B12 INJECTION CPT-4: J3420 09/24/2014 THER/PROPH/DIAG INJ SC/IM CPT-4: 45009 09/24/2014 THER/PROPH/DIAG INJ SC/IM CPT-4: 60848 08/24/2014 VITAMIN B12 INJECTION CPT-4: J3420 08/24/2014 THER/PROPH/DIAG INJ SC/IM CPT-4: 34238 07/08/2014 VITAMIN B12 INJECTION CPT-4: J3420 07/08/2014 THER/PROPH/DIAG INJ SC/IM CPT-4: 48635 06/01/2014 VITAMIN B12 INJECTION CPT-4: J3420 06/01/2014 TRIAMCINOLONE ACET INJ NOS CPT-4: J3301 05/11/2014 VITAMIN B12 INJECTION CPT-4: J3420 04/27/2014 THER/PROPH/DIAG INJ SC/IM CPT-4: 40491 04/27/2014 FLU VAC NO PRSV 4 JINNY 3 YRS+ CPT-4: 82640 04/03/2014 ADMIN INFLUENZA VIRUS VAC Assigned to/Juliana Graham CPT-4: [id number] 04/03/2014 THER/PROPH/DIAG INJ SC/IM CPT-4: 34402 03/24/2014 THER/PROPH/DIAG INJ SC/IM CPT-4: 68518 02/24/2014 THER/PROPH/DIAG INJ SC/IM CPT-4: 68515 01/09/2014 THER/PROPH/DIAG INJ SC/IM CPT-4: 84658 11/27/2013 THER/PROPH/DIAG INJ SC/IM CPT-4: 01561 09/18/2013 VITAMIN B12 INJECTION CPT-4: J3420 09/18/2013 THER/PROPH/DIAG INJ SC/IM CPT-4: 96847 08/22/2013 VITAMIN B12 INJECTION CPT-4: J3420 08/22/2013 ROUTINE VENIPUNCTURE CPT-4: 40879 07/28/2013 VITAMIN B12 INJECTION CPT-4: J3420 07/28/2013 THER/PROPH/DIAG INJ SC/IM CPT-4: 05700 07/28/2013 THER/PROPH/DIAG INJ SC/IM CPT-4: 36655 06/16/2013 VITAMIN B12 INJECTION CPT-4: J3420 06/16/2013 THER/PROPH/DIAG INJ SC/IM CPT-4: 17984 05/21/2013 VITAMIN B12 INJECTION CPT-4: J3420 05/21/2013 ADMIN INFLUENZA VIRUS VAC CPT-4: G0008 04/23/2013 FLULAVAL VACC, 3 YRS & >, IM CPT-4: Q2036 04/23/2013 VITAMIN B12 INJECTION CPT-4: J3420 04/23/2013 THER/PROPH/DIAG INJ SC/IM CPT-4: 85724 04/23/2013 THER/PROPH/DIAG INJ SC/IM CPT-4: 51386 03/24/2013 VITAMIN B12 INJECTION CPT-4: J3420 03/24/2013 THER/PROPH/DIAG INJ SC/IM CPT-4: 69112 02/20/2013 VITAMIN B12 INJECTION CPT-4: J3420 02/20/2013 VITAMIN B12 INJECTION CPT-4: J3420 01/22/2013 PRESCRIP TRANSMIT VIA ERX SY CPT-4: G8553 01/22/2013 TRIAMCINOLONE ACET INJ NOS CPT-4: J3301 12/19/2012 VITAMIN B12 INJECTION CPT-4: J3420 12/19/2012 THER/PROPH/DIAG INJ SC/IM CPT-4: 99164 11/20/2012 VITAMIN B12 INJECTION CPT-4: J3420 11/20/2012 THER/PROPH/DIAG INJ SC/IM CPT-4: 68394 10/23/2012 VITAMIN B12 INJECTION CPT-4: J3420 10/23/2012 THER/PROPH/DIAG INJ SC/IM CPT-4: 63993 09/16/2012 VITAMIN B12 INJECTION CPT-4: J3420 09/16/2012 VITAMIN B12 INJECTION CPT-4: J3420 08/15/2012 THER/PROPH/DIAG INJ SC/IM CPT-4: 03195 08/15/2012 TRIAMCINOLONE ACET INJ NOS CPT-4: J3301 08/06/2012 THER/PROPH/DIAG INJ SC/IM CPT-4: 05288 08/06/2012 PRESCRIP TRANSMIT VIA ERX SY CPT-4: G8553 08/06/2012 VITAMIN B12 INJECTION CPT-4: J3420 07/19/2012 THER/PROPH/DIAG INJ SC/IM CPT-4: 16488 07/19/2012 DRAIN/INJECT JOINT/BURSA CPT-4: 30603 07/10/2012 THER/PROPH/DIAG INJ SC/IM CPT-4: 39318 06/19/2012 VITAMIN B12 INJECTION CPT-4: J3420 06/19/2012 VITAMIN B12 INJECTION CPT-4: J3420 05/22/2012 THER/PROPH/DIAG INJ SC/IM CPT-4: 06873 05/22/2012 ADMIN INFLUENZA VIRUS VAC CPT-4: G0008 04/22/2012 FLULAVAL VACC, 3 YRS & >, IM CPT-4: Q2036 04/22/2012 VITAMIN B12 INJECTION CPT-4: J3420 04/22/2012 VITAMIN B12 INJECTION CPT-4: J3420 03/19/2012 THER/PROPH/DIAG INJ SC/IM CPT-4: 20526 03/19/2012 VITAMIN B12 INJECTION CPT-4: J3420 02/15/2012 THER/PROPH/DIAG INJ SC/IM CPT-4: 28480 02/15/2012 THER/PROPH/DIAG INJ SC/IM CPT-4: 85837 01/18/2012 VITAMIN B12 INJECTION CPT-4: J3420 01/18/2012 TRIAMCINOLONE ACET INJ NOS CPT-4: J3301 12/28/2011 DRAIN/INJECT JOINT/BURSA CPT-4: 68188 12/28/2011 VITAMIN B12 INJECTION CPT-4: J3420 12/20/2011 THER/PROPH/DIAG INJ SC/IM CPT-4: 33883 12/20/2011 VITAMIN B12 INJECTION CPT-4: J3420 11/07/2011 THER/PROPH/DIAG INJ SC/IM CPT-4: 25248 11/07/2011 VITAMIN B12 INJECTION CPT-4: J3420 10/03/2011 THER/PROPH/DIAG INJ SC/IM CPT-4: 41463 10/03/2011 TRIAMCINOLONE ACET INJ NOS CPT-4: J3301 08/23/2011 DRAIN/INJECT JOINT/BURSA CPT-4: 26176 08/23/2011 THER/PROPH/DIAG INJ SC/IM CPT-4: 84931 08/23/2011 VITAMIN B12 INJECTION CPT-4: J3420 08/23/2011 VITAMIN B12 INJECTION CPT-4: J3420 07/28/2011 THER/PROPH/DIAG INJ SC/IM CPT-4: 33394 07/28/2011 VITAMIN B12 INJECTION CPT-4: J3420 06/29/2011 THER/PROPH/DIAG INJ SC/IM CPT-4: 03441 06/29/2011 KETOROLAC TROMETHAMINE INJ CPT-4: J1885 05/23/2011 VITAMIN B12 INJECTION CPT-4: J3420 05/23/2011 THER/PROPH/DIAG INJ SC/IM CPT-4: 19734 05/23/2011 ADMIN INFLUENZA VIRUS VAC CPT-4: G0008 04/26/2011 FLULAVAL VACC, 3 YRS & >, IM CPT-4: Q2036 04/26/2011 VITAMIN B12 INJECTION CPT-4: J3420 04/26/2011 THER/PROPH/DIAG INJ SC/IM CPT-4: 04939 04/26/2011 Vital Signs Date Vital 06/18/2017 Blood Pressure 1: 134/68 Code : 8480-6 BMI: 35.8 Code : 90158-4 Heart Rate 1 : 50 bpm Height: 5'6" SpO2: 98% Weight: 222 lbs 06/07/2017 Blood Pressure 1: 146/68 Code : 8480-6 BMI: 35.3 Code : 46197-3 Heart Rate 1 : 63 bpm Height: 5'6" SpO2: 99% Weight: 218 lbs 8 oz 04/16/2017 Blood Pressure 1: 130/62 Code : 8480-6 BMI: 34.7 Code : 29042-3 Heart Rate 1 : 51 bpm Height: 5'6" SpO2: 94% Weight: 215 lbs 02/23/2017 Blood Pressure 1: 136/64 Code : 8480-6 BMI: 35.0 Code : 45620-6 Heart Rate 1 : 54 bpm Height: 5'6" SpO2: 96% Weight: 217 lbs 12/26/2016 Blood Pressure 1: 144/74 Code : 8480-6 BMI: 34.5 Code : 60376-8 Heart Rate 1 : 60 bpm Height: 5'6" SpO2: 97% Weight: 214 lbs 09/07/2016 Blood Pressure 1: 138/62 Code : 8480-6 Heart Rate 1: 86 bpm SpO2: 96% Temperature: 36.8 (C) / 98.2 (F) Weight: 207 lbs 08/29/2016 Blood Pressure 1: 132/58 Code : 8480-6 BMI: 33.9 Code : 42512-4 Heart Rate 1 : 55 bpm Height: 5'6" SpO2: 98% Weight: 210 lbs 06/12/2016 Blood Pressure 1: 128/76 Code : 8480-6 BMI: 33.2 Code : 31473-5 Heart Rate 1 : 57 bpm Height: 5'6" SpO2: 97% Weight: 206 lbs 05/04/2016 Blood Pressure 1: 130/72 Code : 8480-6 BMI: 33.9 Code : 39978-2 Heart Rate 1 : 74 bpm Height: 5'6" SpO2: 96% Temperature: 36.9 (C) / 98.5 (F) Weight: 210 lbs 03/30/2016 Blood Pressure 1: 116/66 Code : 8480-6 BMI: 34.3 Code : 51804-3 Heart Rate 1 : 67 bpm Height: 5'6" SpO2: 98% Weight: 212 lbs 8 oz 11/30/2015 Blood Pressure 1: 138/64 Code : 8480-6 BMI: 35.2 Code : 74056-5 Heart Rate 1 : 59 bpm Height: 5'6" SpO2: 98% Weight: 218 lbs 09/06/2015 Blood Pressure 1: 138/668 Code: 8480-6 BMI: 35.3 Code: 70923-0 Heart Rate 1: 68 bpm Height: 5'6" Weight: 219 lbs 08/04/2015 Blood Pressure 1: 140/82 Code : 8480-6 Heart Rate 1: 62 bpm SpO2: 98% Weight: 220 lbs 07/05/2015 Blood Pressure 1: 122/80 Code : 8480-6 BMI: 36.0 Code : 03246-2 Heart Rate 1 : 63 bpm Height: 5'6" SpO2: 97% Temperature: 36.3 (C) / 97.3 (F) Weight: 223 lbs 06/28/2015 Blood Pressure 1: 150/74 Code : 8480-6 BMI: 36.3 Code : 83338-0 Heart Rate 1 : 65 bpm Height: 5'6" SpO2: 96% Weight: 225 lbs 02/23/2015 Blood Pressure 1: 142/64 Code : 8480-6 BMI: 37.0 Code : 30292-8 Heart Rate 1 : 56 bpm Height: 5'6" SpO2: 96% Weight: 229 lbs 01/08/2015 Blood Pressure 1: 128/88 Code : 8480-6 BMI: 37.3 Code : 62132-2 Heart Rate 1 : 74 bpm Height: 5'6" Weight: 231 lbs 09/24/2014 Blood Pressure 1: 128/70 Code : 8480-6 BMI: 36.8 Code : 16373-3 Heart Rate 1 : 68 bpm Height: 5'6" SpO2: 96% Weight: 228 lbs 05/11/2014 Blood Pressure 1: 148/82 Code : 8480-6 Height: Temperature: 36.2 (C) / 97.2 (F) Weight: 05/01/2014 Blood Pressure 1: 128/68 Code : 8480-6 BMI: 36.6 Code : 43307-4 Heart Rate 1 : 74 bpm Height: 5'6" Weight: 227 lbs 04/03/2014 Blood Pressure 1: 130/72 Code : 8480-6 BMI: 36.8 Code : 36580-3 Heart Rate 1 : 76 bpm Height: 5'6" Weight: 228 lbs 11/24/2013 Blood Pressure 1: 146/64 Code : 8480-6 BMI: 35.5 Code : 70395-7 Heart Rate 1 : 64 bpm Height: 5'6" Weight: 220 lbs 08/22/2013 Weight: 223 lbs 07/28/2013 Blood Pressure 1: 112/68 Code : 8480-6 BMI: 36.2 Code : 07897-5 Heart Rate 1 : 80 bpm Height: 5'6" Weight: 224 lbs 06/16/2013 Blood Pressure 1: 132/60 Code : 8480-6 BMI: 37.6 Code : 47684-0 Heart Rate 1 : 72 bpm Height: 5'6" Weight: 233 lbs 01/22/2013 Blood Pressure 1: 130/64 Code : 8480-6 BMI: 37.3 Code : 02726-6 Heart Rate 1 : 80 bpm Height: 5'6" Weight: 231 lbs 10/02/2012 Blood Pressure 1: 146/90 Code : 8480-6 BMI: 36.8 Code : 69838-3 Heart Rate 1 : 60 bpm Height: [...] Code : 8480-6 BMI: 37.1 Code : 92720-5 Heart Rate 1 : 60 bpm Height: 5'6" Respiratory Rate: 16 bpm Weight: 230 lbs 12/20/2011 Blood Pressure 1: 142/66 Code : 8480-6 BMI: 35.8 Code : 62202-6 Heart Rate 1 : 66 bpm Height: [...] Code : 8480-6 BMI: 36.2 Code : 48727-6 Heart Rate 1 : 64 bpm Height: [...] None knee pain Quality intermittent 11/30/2015 seeing Banrichardt- gets Synvisc knee pain Alleviating Factors rest [...] 06/28/2015 None knee pain Quality intermittent 06/28/2015 christina brown Synvisc hypertension Blood Pressure Values patient [...] knee pain Quality intermittent 02/23/2015 seeing Kevin Snyder diabetes mellitus Test results HgbA1c level 7.6 [...] lesion Location on the right cheek 01/22/2013 [place] area edema Quality painful 01/22/2013 None edema [...] data Encounters Encounter Performer Location Codes Date ([id number]) 31174 EST. PATIENT, LEVEL IV Diagnosis: Type 2 diabetes mellitus without complications[ICD10: E11.9] Diagnosis: Essential (primary) hypertension[ICD10: I10] Diagnosis: Other vitamin B12 deficiency anemias[ICD10: D51.8] Diagnosis: Allergic rhinitis due to animal (cat) (dog) hair and dander[ICD10: J30.81] Daisy Garcia MD, [facility] CPT-4: 96863 2016 ([id number]) 96554 EST. 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 PATIENT, LEVEL IV Diagnosis: Type 2 diabetes mellitus without complications[ICD10: E11.9] Diagnosis: Essential (primary) hypertension[ICD10: I10] Diagnosis: Chronic atrial fibrillation[ICD10: I48.2] Daisy Garcia MD, [facility] CPT-4: 63362 04/16/2017 ([id number]) 29043 EST. PATIENT, LEVEL III Diagnosis: Sciatica, left side[ICD10: M54.32] Diagnosis: Sacroiliitis, not elsewhere classified[ICD10: M46.1] Chantell Garcia MD, [facility] CPT-4: 01590 02/23/2017 ([id number]) 23369 EST. PATIENT, LEVEL IV Diagnosis: Type 2 diabetes mellitus without complications[ICD10: E11.9] Diagnosis: Essential (primary) hypertension[ICD10: I10] Daisy Garcia MD, [facility] CPT-4: 00769 12/26/2016 ([id number]) 68920 EST. PATIENT, LEVEL III Diagnosis: Cough[ICD10: R05] Diagnosis: Acute bronchitis, unspecified[ICD10: J20.9] Chantell Garcia MD, [facility] CPT-4: 17164 09/07/2016 ([id number]) 12492 EST. PATIENT, LEVEL IV Diagnosis: Type 2 diabetes mellitus without complications[ICD10: E11.9] Diagnosis: Cough[ICD10: R05] Diagnosis: Acute laryngopharyngitis[ICD10: J06.0] Diagnosis: Acute recurrent maxillary sinusitis[ICD10: J01.01] Daisy Garcia MD, [facility] CPT-4: 77225 08/29/2016 68282 EST. PATIENT, LEVEL IV Diagnosis: Other allergic rhinitis[ICD10: J30.89] Diagnosis: Other vitamin B12 deficiency anemias[ICD10: D51.8] Yady Garcia MD, [facility] CPT-4: 25012 06/12/2016 ([id number]) 78527 EST. PATIENT, LEVEL III Diagnosis: Urinary tract infection, site not specified[ICD10: N39.0] Diagnosis: Fever, unspecified[ICD10: R50.9] Diagnosis: Other vitamin B12 deficiency anemias[ICD10: D51.8] Chantell Garcia MD, [facility] CPT-4: 22007 05/04/2016 ([id number]) 07971 EST. 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 PATIENT, LEVEL IV Diagnosis: Type 2 diabetes mellitus with hyperglycemia[ICD10: E11.65] Diagnosis: Essential (primary) hypertension[ICD10: I10] Daisy Garcia MD, [facility] CPT-4: 65157 11/30/2015 ([id number]) 57095 EST. PATIENT, LEVEL III Diagnosis: Acute recurrent maxillary sinusitis[ICD10: J01.01] Diagnosis: Unspecified acute conjunctivitis, right eye[ICD10: H10.31] Diagnosis: Vitamin B12 deficiency anemia, unspecified[ICD10: D51.9] Chantell Garcia MD , [facility] CPT-4: 63727 09/06/2015 12462 EST. PATIENT, LEVEL III Diagnosis: Pain in right knee[ICD10: M25.561] Diagnosis: Essential (primary) hypertension[ICD10: I10] Diagnosis: Vitamin B12 deficiency anemia, unspecified[ICD10: D51.9] Yady Garcia MD, [facility] CPT-4: 21122 08/04/2015 ([id number]) 32651 EST. PATIENT, LEVEL III Diagnosis: Streptococcal pharyngitis[ICD10: J02.0] Diagnosis: Acute recurrent maxillary sinusitis[ICD10: J01.01] Chantell Garcia MD, [facility] CPT-4: 89292 07/05/2015 ([id number]) 82224 EST. PATIENT, LEVEL IV Diagnosis: Type 2 diabetes mellitus with hyperglycemia[ICD10: E11.65] Diagnosis: Essential (primary) hypertension[ICD10: I10] Diagnosis: Vitamin B12 deficiency anemia, unspecified[ICD10: D51.9] Daisy Garcia MD, [facility] CPT-4: 61281 06/28/2015 ([id number]) 60819 EST. PATIENT, LEVEL IV Diagnosis: DM W/O COMPLICATION TYPE II, UNCONTROLLED[ICD9: 250.02] Diagnosis: ESSENTIAL HYPERTENSION[ICD9: 401.9] Diagnosis: Iron deficiency[ICD9: 280.9] Diagnosis: OTH SCREENING MAMMOGRAM[ICD9: V76.12] Diagnosis: B12 deficiency[ICD9: 266.2] Daisy Garcia MD, [facility] CPT- 4: 68886 02/23/2015 ([id number]) 26507 EST. PATIENT, LEVEL IV Diagnosis: DM W/O COMPLICATION TYPE II, UNCONTROLLED[ICD9: 250.02] Diagnosis: ESSENTIAL HYPERTENSION[ICD9: 401.9] Diagnosis: Right knee pain[ICD9: 719.46] Diagnosis: B12 deficiency[ICD9: 266.2] Chantell Garcia MD, [facility] CPT-4: 78958 01/08/2015 ([id number]) 89063 EST. PATIENT, LEVEL IV Diagnosis: DM W/O COMPLICATION TYPE II, UNCONTROLLED[ICD9: 250.02] Diagnosis: ESSENTIAL HYPERTENSION[ICD9: 401.9] Diagnosis: Iron deficiency[ICD9: 280.9] Daisy Garcia MD, [facility] CPT- 4: 66233 09/24/2014 ([id number]) 06514 EST. PATIENT, LEVEL III Diagnosis: Sacroiliitis[ICD9: 720.2] Diagnosis: Left sided sciatica[ICD9: 724.3] Chantell Garcia MD, [facility] CPT-4: 31652 05/11/2014 ([id number]) 15866 EST. PATIENT, LEVEL III Diagnosis: CELLULITIS OF BUTTOCK[ICD9: 682.5] Daisy Garcia MD, [facility] CPT-4: 45804 05/01/2014 88418 EST. PATIENT, LEVEL IV Diagnosis: ESSENTIAL HYPERTENSION[ICD9: 401.9] Diagnosis: DIABETES TYPE II[ICD9: 250.00] Diagnosis: Iron deficiency[ICD9: 280.9] Diagnosis: LUMBAGO[ICD9: 724.2] Daisy Garcia MD, [facility] CPT-4: 84242 04/03/2014 ([id number]) 28466 EST. PATIENT, LEVEL IV Diagnosis: ESSENTIAL HYPERTENSION[SNOMED: 15024370] Diagnosis: DIABETES TYPE II[SNOMED: 872164127] Diagnosis: ANEMIA[ICD9: 285.9] Diagnosis: Iron deficiency[ICD9: 280.9] Daisy Garcia MD, [facility] CPT- 4: 59521 11/24/2013 ([id number]) 84062 EST. PATIENT, LEVEL IV Diagnosis: ESSENTIAL HYPERTENSION[SNOMED: 91112915] Diagnosis: DIABETES TYPE II[SNOMED: 160286605] Diagnosis: EDEMA[ICD9: 782.3] Daisy Garcia MD, [facility] CPT-4: 37818 07/28/2013 ([id number]) 59167 EST. PATIENT, LEVEL IV Diagnosis: ESSENTIAL HYPERTENSION[SNOMED: 06913921] Diagnosis: DIABETES TYPE II[SNOMED: 483542055] Diagnosis: EDEMA[ICD9: 782.3] Diagnosis: B-COMPLEX DEFIC NEC[ICD9: 266.2] Daisy Garcia MD, [facility] CPT-4: 15611 06/16/2013 ([id number]) 01054 EST. PATIENT, LEVEL IV Diagnosis: ESSENTIAL HYPERTENSION[SNOMED: 46754154] Diagnosis: DIABETES TYPE II[SNOMED: 032313652] Diagnosis: EDEMA[ICD9: 782.3] Diagnosis: B-COMPLEX DEFIC NEC[ICD9: 266.2] Daisy Garcia MD, [facility] CPT-4: 92426 01/22/2013 ([id number]) 94214 EST. PATIENT, LEVEL III Diagnosis: Lumbago[ICD9: 724.2] Diagnosis: Sacroiliitis[ICD9: 720.2] Diagnosis: ESSENTIAL HYPERTENSION[SNOMED: 24152904] Daisy Garcia MD [facility] CPT-4: 67016 10/02/2012 ([id number]) 58444 EST. PATIENT, LEVEL III Diagnosis: ACUTE URI[ICD9: 465.9] Daisy Garcia MD, [facility] CPT-4: 43892 08/06/2012 ([id number]) 87879 EST. PATIENT, LEVEL IV Diagnosis: ESSENTIAL HYPERTENSION[SNOMED: 31499765] Diagnosis: DIABETES TYPE II[SNOMED: 121820237] Diagnosis: ANEMIA[ICD9: 285.9] Daisy Garcia MD [facility] CPT-4: 12488 07/04/2012 ([id number]) 94430 EST. PATIENT, LEVEL IV Diagnosis: ESSENTIAL HYPERTENSION[SNOMED: 70153199] Diagnosis: DIABETES TYPE II[SNOMED: 369156409] Diagnosis: B-COMPLEX DEFIC NEC[ICD9: 266.2] Daisy Garcia MD [facility] CPT-4: 80564 05/22/2012 ([id number]) 21961 EST. PATIENT, LEVEL IV Diagnosis: ESSENTIAL HYPERTENSION[SNOMED: 74813531] Diagnosis: DIABETES TYPE II[SNOMED: 225031047] Diagnosis: LUMBAGO[ICD9: 724.2] Diagnosis: B-COMPLEX DEFIC NEC[ICD9: 266.2] Daisy Garcia MD, [facility] CPT-4: 08087 04/22/2012 63824 EST. PATIENT, LEVEL III Diagnosis: Sciatica of right side[ICD9: 724.3] Diagnosis: Sacroiliitis[ICD9: 720.2] Chantell Garcia MD, [facility] CPT-4: 89165 12/28/2011 ([id number]) 74032 EST. PATIENT, LEVEL IV Diagnosis: DIABETES TYPE II[SNOMED: 443226939] Diagnosis: ESSENTIAL HYPERTENSION[SNOMED: 94108106] Daisy Garcia MD, [facility] CPT-4: 42324 12/20/2011 ([id number]) 88850 EST. PATIENT, LEVEL IV Diagnosis: ESSENTIAL HYPERTENSION[SNOMED: 75841985] Diagnosis: DIABETES TYPE II[SNOMED: 313301373] Diagnosis: PAIN IN LIMB[ICD9: 729.5] Diagnosis: LUMBAGO[ICD9: 724.2] Diagnosis: Sacroiliitis[ICD9: 720.2] Daisy Garcia MD, [facility] CPT-4: 76388 08/23/2011 90859 EST. PATIENT, LEVEL III Diagnosis: Sacroiliitis[ICD9: 720.2] Diagnosis: Right sided sciatica[ICD9: 724.3] Diagnosis: B-COMPLEX DEFIC NEC[ICD9: 266.2] Chantell Garcia MD, [facility] CPT-4: 47376 05/23/2011 11502 EST. PATIENT, LEVEL IV Diagnosis: DIABETES TYPE II[SNOMED: 118393461] Diagnosis: ESSENTIAL HYPERTENSION[SNOMED: 15606692] Diagnosis: Feces incontinence[ICD9: 787.60] Daisy Garcia MD, [facility] CPT-4: 00948 04/26/2011 Plan of Care Planned Activity Notes Codes Status Date Appointment: Injection 08/21/2017 Patient Education: Patient Medication Summary Completed 08/21/2017 Appointment: Injection 07/18/2017 Patient Education: Patient Medication Summary Completed 07/18/2017 Appointment: [facility] [phone] [facility] (15 min) Moderate 06/18/2017 Patient Education: Patient Medication Summary Completed 06/18/2017 Patient Education: Obesity Completed 06/18/2017 Patient Education: Hypertension Completed 06/18/2017 Appointment: Daisy Garcia [facility]el[facility] [phone] [facility] [place] (15 min) Moderate 06/07/2017 Patient Education: Patient Medication Summary Completed 06/07/2017 Patient Education: Obesity Completed 06/07/2017 Appointment: Injection 05/09/2017 Patient Education: Patient Medication Summary Completed 05/09/2017 Appointment: Daisy Garcia WPtel: [facility] [place] (15 min) Moderate 04/26/2017 Patient Education: Patient Medication Summary Completed 04/25/2017 Appointment: Daisy Garcia WPtel: [facility] [place] (15 min) Moderate 04/16/2017 Appointment: Daisy Garcia WPtel: [facility] [place] (15 min) Moderate 04/16/2017 Patient Education: Patient Medication Summary Completed 04/16/2017 Patient Education: Obesity Completed 04/16/2017 Patient Education: Hypertension Completed 04/16/2017 Appointment: Injection 04/04/2017 Patient Education: Patient Medication Summary Completed 04/04/2017 Patient Education: Patient Medication Summary Completed 02/23/2017 Appointment: Injection 01/23/2017 Patient Education: Patient Medication Summary Completed 01/23/2017 Appointment: Daisy Garcia WPtel: [facility] [place] (15 min) Moderate 12/26/2016 Patient Education: Patient Medication Summary Completed 12/26/2016 Appointment: Injection 11/14/2016 Patient Education: Patient Medication Summary Completed 11/14/2016 Appointment: Chantell Singh WPtel: [phone] [place] (30 min) Complex 09/07/2016 Patient Education: Patient Medication Summary Completed 09/07/2016 Appointment: Daisy Garcia WPtel: [facility] [place] (15 min) Moderate 08/29/2016 Patient Education: Patient Medication Summary Completed 08/29/2016 Patient Education: Obesity Completed 08/29/2016 Appointment: Daisy Garcia WPtel: [phone] [facility] [place] (15 min) Moderate 08/22/2016 Appointment: Daisy [facility] [phone] [facility] [place] (15 min) Moderate 08/02/2016 Appointment: Chant[facility] Singh [facility] [phone] [phone] [place] (30 min) Complex 08/02/2016 Appointment: Yady Harper WPtel: [phone] [facility] [place] (15 min) Moderate 06/12/2016 Patient Education: Patient Medication Summary Completed 06/12/2016 Patient Education: Obesity Completed 06/12/2016 Appointment: Chantell Singh WPtel: [phone] [phone] [place] (15 min) Moderate 05/04/2016 Patient Education: Patient Medication Summary Completed 05/04/2016 Patient Education: Obesity Completed 05/04/2016 Appointment: Daisy Garcia [facility]Ptel[facility] [phone] [facility] [place] (15 min) Moderate 03/30/2016 Patient Education: Patient Medication Summary Completed 03/30/2016 Patient Education: Hypertension Completed 03/30/2016 Appointment: Injection 03/17/2016 Patient Education: Patient Medication Summary Completed 03/17/2016 Appointment: Injection 02/15/2016 Patient Education: Patient Medication Summary Completed 02/15/2016 Appointment: Daisy Garcia [facility]Ptel: [phone] [facility] [place] (15 min) Moderate 01/26/2016 Appointment: Injection 01/19/2016 Patient Education: Patient Medication Summary Completed 01/19/2016 Appointment: Injection 12/07/2015 Patient Education: Patient Medication Summary Completed 12/07/2015 Appointment: Daisy Garcia WPtel: [facility] (15 min) Moderate 11/30/2015 Patient Education: Patient Medication Summary Completed 11/30/2015 Patient Education: Obesity Completed 11/30/2015 Appointment: Daisy Garcia WPtel: [facility] (15 min) Moderate 10/26/2015 Patient Education: Patient Medication Summary Completed 09/06/2015 Patient Education: Patient Medication Summary Completed 08/04/2015 Patient Education: Hypertension Completed 08/04/2015 Patient Education: Patient Medication Summary Completed 07/05/2015 Care Plan: C RAP A SC Pending 07/05/2015 Appointment: Daisy Garcia WPtel: [address] [place] [address] (15 min) Moderate 06/28/2015 Patient Education: Patient Medication Summary Completed 06/28/2015 Patient Education: Hypertension Completed 06/28/2015 Appointment: (15 min) Moderate 05/13/2015 Patient Education: Patient Medication Summary Completed 05/13/2015 Patient Education: Patient Medication Summary Completed 03/03/2015 Appointment: Daisy Garcia WPtel: [address] [place], [place] [phone] Follow up 02/23/2015 Patient Education: Patient Medication Summary Completed 02/23/2015 Patient Education: Hypertension Completed 02/23/2015 Care Plan: SCREENINGMAMMOGRAPHYDIGITAL LOINC : 78972-2 Ordered 02/23/2015 Appointment: (15 min) Moderate 01/08/2015 Patient Education: Patient Medication Summary Completed 01/08/2015 Patient Education: Hypertension Completed 01/08/2015 Care Plan: COMPLETE CBC AUTOMATED LOINC : 42120-0 Ordered 01/08/2015 Appointment: Injection 12/08/2014 Patient Education: Patient Medication Summary Completed 12/08/2014 Appointment: Injection 10/26/2014 Patient Education: Patient Medication Summary Completed 10/26/2014 Appointment: Daisy Garcia WPtel: [address] [place], [place] [phone] Follow up 09/24/2014 Patient Education: Patient Medication Summary Completed 09/24/2014 Patient Education: Hypertension Completed 09/24/2014 Appointment: Daisy Garcia WPtel: [facility] [place] Injection 08/24/2014 Patient Education: Patient Medication Summary Completed 08/24/2014 Appointment: Follow up 08/07/2014 Patient Education: Patient Medication Summary Completed 07/08/2014 Patient Education: Patient Medication Summary Completed 06/01/2014 Patient Education: Patient Medication Summary Completed 05/11/2014 Appointment: Daisy Garcia WPtel: [facility] [place] Follow up 05/01/2014 Patient Education: Patient Medication Summary Completed 05/01/2014 Appointment: Daisy Garcia WPtel: [facility] [place] Injection 04/27/2014 Patient Education: Patient Medication Summary Completed 04/27/2014 Appointment: Chantell Singh WPtel: [phone] [place] Follow up 04/03/2014 Patient Education: Patient Medication Summary Completed 04/03/2014 Patient Education: Hypertension Completed 04/03/2014 Appointment: Daisy Garcia WPtel: [facility] [place] Injection 03/24/2014 Patient Education: Patient Medication Summary Completed 03/24/2014 Appointment: Daisy Garcia WPtel: [facility] [place] Follow up 03/23/2014 Appointment: Daisy Garcia WPtel: [facility] [place] Injection 02/24/2014 Patient Education: Patient Medication Summary Completed 02/24/2014 Appointment: Chantell Singh WPtel: [phone] [place] Injection 01/09/2014 Patient Education: Patient Medication Summary Completed 01/09/2014 Patient Education: Patient Medication Summary Completed 11/27/2013 Appointment: Daisy Garcia WPtel: [facility] [place] Follow up 11/24/2013 Patient Education: Patient Medication Summary Completed 11/24/2013 Patient Education: Hypertension Completed 11/24/2013 Appointment: Daisy Garcia WPtel: [facility] [place] Follow up 11/12/2013 Appointment: Daisy Garcia [facility]el: [facility] [facility] [place] Follow up 10/27/2013 Appointment: Chantell Singh WPtel: [phone] [phone] [place] Injection 09/18/2013 Patient Education: Patient Medication Summary Completed 09/18/2013 Appointment: Chantell Singh WPtel: [phone] [id number] [place] Injection 08/22/2013 Patient Education: Patient Medication Summary Completed 08/22/2013 Appointment: Daisy Garcia WPtel: [facility] [place] Follow up 07/28/2013 Patient Education: Patient Medication Summary Completed 07/28/2013 Patient Education: Hypertension Completed 07/28/2013 Appointment: Chantell Singh WPtel: [facility] [phone] [place] Injection 06/20/2013 Appointment: Daisy Garcia WPtel: [facility] [place] Follow up 06/16/2013 Patient Education: Patient Medication Summary Completed 06/16/2013 Patient Education: Hypertension Completed 06/16/2013 Appointment: Chantell Singh WPtel: [phone] [facility] [id number] [place] Injection 05/21/2013 Patient Education: Patient Medication Summary Completed 05/21/2013 Appointment: Daisy Garcia WPtel: [facility] [place] Injection 04/23/2013 Patient Education: Patient Medication Summary Completed 04/23/2013 Appointment: Daisy Garcia [facility]Ptel: [phone] [facility] [place] Injection 03/24/2013 Patient Education: Patient Medication Summary Completed 03/24/2013 Appointment: Daisy Garcia [facility]Ptel: [phone] [place] Injection 02/20/2013 Patient Education: Patient Medication Summary Completed 02/20/2013 Appointment: Daisy Garcia [facility]Ptel: [phone] [place] Follow up 01/22/2013 Patient Education: Patient Medication Summary Completed 01/22/2013 Patient Education: Hypertension Completed 01/22/2013 Appointment: Daisy Garcia WPtel: [phone] [facility] [place] Injection 01/21/2013 Patient Education: Patient Medication Summary Completed 12/19/2012 Appointment: Daisy Garcia WPtel: [phone] [place] Injection 11/22/2012 Appointment: Daisy Garcia WPtel: [phone] [place] 11/20/2012 Patient Education: Patient Medication Summary Completed 11/20/2012 Appointment: Chantell Singh WPtel: [facility] [id number] [place] Injection 11/08/2012 Appointment: Daisy Garcia WPtel: [phone] [facility] [place] Injection 10/23/2012 Patient Education: Patient Medication Summary Completed 10/23/2012 Patient Education: Patient Medication Summary Completed 10/02/2012 Patient Education: Hypertension Completed 10/02/2012 Appointment: Chantell Singh WPtel: [facility] [phone] [place] Lab Draw 09/16/2012 Patient Education: Patient Medication Summary Completed 09/16/2012 Patient Education: Patient Medication Summary Completed 08/15/2012 Appointment: Chantell Singh WPtel: [facility] [phone] [place] Sick 08/06/2012 Patient Education: Patient Medication Summary Completed 08/06/2012 Patient Education: Patient Medication Summary Completed 07/19/2012 Appointment: Daisy Garcia [facility]Ptel: [phone] [place] Injection 07/10/2012 Patient Education: Patient Medication Summary Completed 07/10/2012 Appointment: Daisy Garcia WPtel: [phone] [place] Follow up 07/04/2012 Patient Education: Patient Medication Summary Completed 07/04/2012 Patient Education: Hypertension Completed 07/04/2012 Appointment: Daisy Garcia [facility]Ptel: [phone] [facility] [place]jection 06/19/2012 Patient Education: Patient Medication Summary Completed 06/19/2012 Appointment: Chantell Singh WPtel: [phone] [facility] [id number] [place] Follow up 05/22/2012 Appointment: Chantell Singh WPtel: [phone] [facility] [id number] [place] Follow up 05/22/2012 Patient Education: Patient Medication Summary Completed 05/22/2012 Patient Education: High Blood Pressure: Essential Hypertension Completed 2011 Appointment: Chantell Singh WPtel: [phone] [facility] [phone] [place] Established Patient Preventative visit 04/22/2012 Patient Education: Patient Medication Summary Completed 04/22/2012 Patient Education: High Blood Pressure: Essential Hypertension Completed 2011 Appointment: Chantell Singh WPtel: [phone] [facility] [id number] [place] Injection 03/19/2012 Patient Education: Patient Medication Summary Completed 03/19/2012 Appointment: Daisy Garcia [facility]Ptel: [phone] [place]jection 02/15/2012 Patient Education: Patient Medication Summary Completed 02/15/2012 Appointment: Daisy Garcia [facility]Ptel: [phone] [facility] [place] 01/18/2012 Patient Education: Patient Medication Summary Completed 01/18/2012 Appointment: Chantell Singh WPtel: [phone] [facility] [id number] [place] Other 12/28/2011 Patient Education: Patient Medication Summary Completed 12/28/2011 Appointment: Daisy Garcia WPtel: [phone] [place] Other 12/20/2011 Patient Education: Patient Medication Summary Completed 12/20/2011 Patient Education: High Blood Pressure: Essential Hypertension Completed 2011 Appointment: Chantell Singh WPtel: [phone] [facility] [id number] [place] Injection 11/07/2011 Patient Education: Patient Medication Summary Completed 11/07/2011 Appointment: Daisy Garcia [facility]Ptel: [phone] [place]jection 10/03/2011 Patient Education: Patient Medication Summary Completed 10/03/2011 Appointment: Daisy Garcia WPtel: [phone] [place] Injection 08/28/2011 Appointment: Daisy Garcia WPtel: [phone] [place] Other 08/23/2011 Patient Education: Patient Medication Summary Completed 08/23/2011 Patient Education: High Blood Pressure: Essential Hypertension Completed 2011 Appointment: Chantell Singh WPtel: [phone] [facility] [phone] [place] Injection 07/28/2011 Patient Education: Patient Medication Summary Completed 07/28/2011 Appointment: Chantell Singh WPtel: [phone] [facility] [id number] [place] Injection 06/29/2011 Patient Education: Patient Medication Summary Completed 06/29/2011 Appointment: Chantell Singh WPtel: [phone] [facility] [id number] [place] 05/23/2011 Patient Education: Patient Medication Summary Completed 05/23/2011 Appointment: Daisy Garcia WPtel: [phone] [place] 04/26/2011 Patient Education: Patient Medication Summary Completed 04/26/2011 Instructions No Instructions
--- OUTSIDE RECORDS SUMMARY | 2018-07-17 07:48 | XMS REPORT | Continuity of Care Document ---
Author Author [facility] Organization [facility] Address Unknown Phone Unavailable Allergies Active Description Code Type Severity Reaction Onset Reported/Identified Relationship to Patient Clinical Status Yes No Known Drug Allergies [id number] Drug Allergy Unknown N/A 09/28/2014 Yes Sulfa (Sulfonamide Antibiotics) [id number] Drug Allergy Unknown N/A 2016 Yes TAPE TAPE Unknown N/A 04/05/2017 Medications There is no data. Problems Date Dx Coded Attending Type Code Diagnosis Diagnosed By 12/01/2014 SANDY GARCIA MD Ot 280.9 12/27/2014 SANDY GARCIA MD Ot 280.9 IRON DEFIC ANEMIA NOS 04/15/2015 ENRIQUE HESTER REGULATORY AFFAIRS STRATEGY SPECIALIST Ot V76.12 04/11/2016 Ot V76.12 OTH SCREEN MAMMO-MALIGN NEOPLASM OF [place] 04/11/2016 Ot V76.12 OTH SCREEN MAMMO-MALIGN NEOPLASM OF [place] 04/11/2016 Ot 724.2 LUMBAGO 04/11/2016 Ot 738.4 ACQ SPONDYLOLISTHESIS 04/11/2016 SANDY GARCIA MD Ot V76.12 OTH SCREEN MAMMO-MALIGN NEOPLASM OF [place] 04/11/2016 SANDY GARCIA MD Ot V76.12 OTH SCREEN MAMMO-MALIGN NEOPLASM OF [place] 04/11/2016 SANDY GARCIA MD Ot 280.9 IRON DEFIC ANEMIA NOS 04/11/2016 ENRIQUE HESTER REGULATORY AFFAIRS STRATEGY SPECIALIST Ot V76.12 OTH SCREEN MAMMO-MALIGN NEOPLASM OF [place] 04/12/2016 TASH GILL REGULATORY AFFAIRS STRATEGY SPECIALIST Ot Z12.31 ENCNTR SCREEN MAMMOGRAM FOR MALIGNANT NE 04/12/2016 TASH GILL APRN Ot Z12.31 ENCNTR SCREEN MAMMOGRAM FOR MALIGNANT NE 05/03/2016 TASH GILL REGULATORY AFFAIRS STRATEGY SPECIALIST Ot Z12.31 ENCNTR SCREEN MAMMOGRAM FOR MALIGNANT NE 04/05/2017 Ot V76.12 OTH SCREEN MAMMO-MALIGN NEOPLASM OF [place] 04/05/2017 Ot 724.2 LUMBAGO 04/05/2017 Ot 738.4 ACQ SPONDYLOLISTHESIS 04/05/2017 SISI BAILEY, SANDY Briones Ot V76.12 OTH SCREEN MAMMO-MALIGN NEOPLASM OF [place] 04/05/2017 SANDY GARCIA MD Ot V76.12 OTH SCREEN MAMMO-MALIGN NEOPLASM OF [place] 04/05/2017 SANDY GARCIA MD Ot 280.9 IRON DEFIC ANEMIA NOS 04/05/2017 ENRIQUE HESTER REGULATORY AFFAIRS STRATEGY SPECIALIST Ot V76.12 OTH SCREEN MAMMO-MALIGN NEOPLASM OF [place] 04/05/2017 TASH GILL REGULATORY AFFAIRS STRATEGY SPECIALIST Ot Z12.31 ENCNTR SCREEN MAMMOGRAM FOR MALIGNANT NE 04/05/2017 Ot V76.12 OTH SCREEN MAMMO-MALIGN NEOPLASM OF [place] 04/05/2017 Ot 724.2 LUMBAGO 04/05/2017 Ot 738.4 ACQ SPONDYLOLISTHESIS 04/05/2017 SANDY GARCIA MD Ot V76.12 OTH SCREEN MAMMO-MALIGN NEOPLASM OF [place] 04/05/2017 SANDY GARCIA MD Ot V76.12 OTH SCREEN MAMMO-MALIGN NEOPLASM OF [place] 04/05/2017 SANDY GARCIA MD Ot 280.9 IRON DEFIC ANEMIA NOS 04/05/2017 ENRIQUE HESTER REGULATORY AFFAIRS STRATEGY SPECIALIST Ot V76.12 OTH SCREEN MAMMO-MALIGN NEOPLASM OF [place] 04/05/2017 TASH GILL REGULATORY AFFAIRS STRATEGY SPECIALIST Ot Z12.31 ENCNTR SCREEN MAMMOGRAM FOR MALIGNANT NE 04/05/2017 SANDY GARCIA MD Ot 280.9 IRON DEFIC ANEMIA NOS 04/08/2017 SANDY GARCIA MD Ot E11.9 TYPE 2 DIABETES MELLITUS WITHOUT COMPLIC 04/08/2017 SANDY GARCIA MD Ot E78.5 HYPERLIPIDEMIA, UNSPECIFIED 04/08/2017 SANDY GARCIA MD Ot I10 ESSENTIAL (PRIMARY) HYPERTENSION 04/08/2017 SANDY GARCIA MD Ot I16.0 HYPERTENSIVE URGENCY 04/08/2017 SANDY GARCIA MD Ot I25.119 ATHSCL HEART DISEASE OF [place] COR ART W 04/08/2017 SANDY GARCIA MD Ot I48.0 PAROXYSMAL ATRIAL FIBRILLATION 04/08/2017 SISI BAILEY, SANDY Briones Ot Z79.84 GLOBAL MARKETING INTERN (CURRENT) USE OF ORAL HYPOGLYC 04/10/2017 TASH GILL REGULATORY AFFAIRS STRATEGY SPECIALIST Ot Z12.31 ENCNTR SCREEN MAMMOGRAM FOR MALIGNANT NE 05/18/2017 TASH GILL REGULATORY AFFAIRS STRATEGY SPECIALIST Ot Z12.31 ENCNTR SCREEN MAMMOGRAM FOR MALIGNANT NE 12/14/2017 TASH GILL REGULATORY AFFAIRS STRATEGY SPECIALIST Ot M25.562 PAIN IN LEFT KNEE 12/14/2017 TASH GILL REGULATORY AFFAIRS STRATEGY SPECIALIST Ot W19.XXXA UNSPECIFIED FALL, INITIAL ENCOUNTER 12/14/2017 TASH GILL REGULATORY AFFAIRS STRATEGY SPECIALIST Ot M25.562 PAIN IN LEFT KNEE 12/14/2017 TASH GILL REGULATORY AFFAIRS STRATEGY SPECIALIST Ot W19.XXXA UNSPECIFIED FALL, INITIAL ENCOUNTER 01/02/2018 TASH GILL REGULATORY AFFAIRS STRATEGY SPECIALIST Ot M25.562 PAIN IN LEFT KNEE 01/02/2018 TASH GILL REGULATORY AFFAIRS STRATEGY SPECIALIST Ot W19.XXXA UNSPECIFIED FALL, INITIAL ENCOUNTER 05/13/2018 NURIA LINDERP Ot Z12.31 ENCNTR SCREEN MAMMOGRAM FOR MALIGNANT NE 05/20/2018 SISI BAILEY, SANDY Briones Ot V76.12 OTH SCREEN MAMMO-MALIGN NEOPLASM OF [place] 05/20/2018 SISI BAILEY, SANDY Briones Ot V76.12 OTH SCREEN MAMMO-MALIGN NEOPLASM OF [place] 05/20/2018 SISI BAILEY, SANDY Briones Ot 280.9 IRON DEFIC ANEMIA NOS 05/20/2018 ENRIQUE HESTER REGULATORY AFFAIRS STRATEGY SPECIALIST Ot V76.12 OTH SCREEN MAMMO-MALIGN NEOPLASM OF [place] 05/20/2018 TASH GILL REGULATORY AFFAIRS STRATEGY SPECIALIST Ot Z12.31 ENCNTR SCREEN MAMMOGRAM FOR MALIGNANT NE 05/20/2018 TASH GILL REGULATORY AFFAIRS STRATEGY SPECIALIST Ot Z12.31 ENCNTR SCREEN MAMMOGRAM FOR MALIGNANT NE 05/20/2018 TASH GILL REGULATORY AFFAIRS STRATEGY SPECIALIST Ot M25.562 PAIN IN LEFT KNEE 05/20/2018 TASH GILL REGULATORY AFFAIRS STRATEGY SPECIALIST Ot W19.XXXA UNSPECIFIED FALL, INITIAL ENCOUNTER 05/20/2018 NURIA LINDER INVESTIGATIVE SHOPPER Ot Z12.31 ENCNTR SCREEN MAMMOGRAM FOR MALIGNANT NE 05/22/2018 NURIA LINDER INVESTIGATIVE SHOPPER Ot Z12.31 ENCNTR SCREEN MAMMOGRAM FOR MALIGNANT NE 06/21/2018 MARIELLE FERNANDEZ, NINA Yanez Ot E78.2 MIXED HYPERLIPIDEMIA 06/21/2018 MARIELLE FERNANDEZ NINA K Ot I10 ESSENTIAL (PRIMARY) HYPERTENSION 06/21/2018 MARIELLE FERNANDEZ, NINA K Ot I25.10 ATHSCL HEART DISEASE OF [place] CORONARY 06/21/2018 MARIELLE FERNANDEZ NINA K Ot I48.0 PAROXYSMAL ATRIAL FIBRILLATION 06/21/2018 MARIELLE FERNANDEZ NINA K Ot 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 06/25/2018 MARIELLE FERNANDEZ NINA K Ot E78.2 MIXED HYPERLIPIDEMIA 06/25/2018 MARIELLE FERNANDEZ NINA K Ot I10 ESSENTIAL (PRIMARY) HYPERTENSION 06/25/2018 MARIELLE FERNANDEZ NINA K Ot I25.10 ATHSCL HEART DISEASE OF [place] CORONARY 06/25/2018 MARIELLE FERNANDEZ NINA K Ot I48.0 PAROXYSMAL ATRIAL FIBRILLATION 06/25/2018 MARIELLE FERNANDEZ NINA K Ot 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 06/25/2018 SISI BAILEY, SANDY Briones Ot V76.12 OTH SCREEN MAMMO-MALIGN NEOPLASM OF [place] 06/25/2018 SANDY GARCIA MD Ot V76.12 OTH SCREEN MAMMO-MALIGN NEOPLASM OF [place] 06/25/2018 SISI BAILEY, SANDY Briones Ot 280.9 IRON DEFIC ANEMIA NOS 06/25/2018 ENRIQUE HESTER REGULATORY AFFAIRS STRATEGY SPECIALIST Ot V76.12 OTH SCREEN MAMMO-MALIGN NEOPLASM OF [place] 06/25/2018 TASH GILL REGULATORY AFFAIRS STRATEGY SPECIALIST Ot Z12.31 ENCNTR SCREEN MAMMOGRAM FOR MALIGNANT NE 06/25/2018 TASH GILL REGULATORY AFFAIRS STRATEGY SPECIALIST Ot Z12.31 ENCNTR SCREEN MAMMOGRAM FOR MALIGNANT NE 06/25/2018 TASH GILL REGULATORY AFFAIRS STRATEGY SPECIALIST Ot M25.562 PAIN IN LEFT KNEE 06/25/2018 TASH GILL REGULATORY AFFAIRS STRATEGY SPECIALIST Ot W19.XXXA UNSPECIFIED FALL, INITIAL ENCOUNTER 06/25/2018 NURIA LINDER Ot Z12.31 ENCNTR SCREEN MAMMOGRAM FOR MALIGNANT NE 06/25/2018 MARIELLE FERNANDEZ NINA K Ot E78.2 MIXED HYPERLIPIDEMIA 06/25/2018 NINA BENTON Ot I10 ESSENTIAL (PRIMARY) HYPERTENSION 06/25/2018 NINA BENTON Ot I25.10 ATHSCL HEART DISEASE OF [place] CORONARY 06/25/2018 NINA BENTON Ot I48.0 PAROXYSMAL ATRIAL FIBRILLATION 06/25/2018 NINA BENTON Ot 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 06/27/2018 NINA BENTON Ot E78.5 HYPERLIPIDEMIA, UNSPECIFIED 06/27/2018 NINA BENTON Ot I10 ESSENTIAL (PRIMARY) HYPERTENSION 06/27/2018 NINA BENTON Ot I25.10 ATHSCL HEART DISEASE OF [place] CORONARY 06/27/2018 NINA BENTON Ot I34.0 NONRHEUMATIC MITRAL (VALVE) INSUFFICIENC 06/27/2018 NINA BENTON Ot I48.91 UNSPECIFIED ATRIAL FIBRILLATION 07/03/2018 NINA BENTON Ot I10 ESSENTIAL (PRIMARY) HYPERTENSION 07/03/2018 NINA BENTON Ot I25.10 ATHSCL HEART DISEASE OF [place] CORONARY 07/03/2018 NINA BENTON Ot I48.0 PAROXYSMAL ATRIAL FIBRILLATION 07/03/2018 NINA BENTON Ot I65.23 OCCLUSION AND STENOSIS OF BILATERAL [place] 07/11/2018 NINA BENTON Ot E78.2 MIXED HYPERLIPIDEMIA 07/11/2018 NINA BENTON Ot I10 ESSENTIAL (PRIMARY) HYPERTENSION 07/11/2018 NINA BENTON Ot I25.10 ATHSCL HEART DISEASE OF [place] CORONARY 07/11/2018 NINA BENTON Ot I48.0 PAROXYSMAL ATRIAL FIBRILLATION 07/11/2018 NINA BENTON Ot 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 Procedures Code Description Performed By Performed On [id number] DILATION OF 1 COR ART WITH DRUG-ELUT INT 04/06/2017 [id number] MEASURE OF CARDIAC SAMPL PRESSURE, L H 04/06/2017 [id number] FLUOROSCOPY OF MULT COR ART USING L OSM 04/06/2017 Results Test Result Range Thyroid Stimulating Hormone - 08/10/16 07:21 TSH 2.75 mIU/mL 0.32-5.00 Free T4 - 12/20/16 06:50 Free T4 1.17 ng/dL 0.81-1.61 Thyroid Stimulating Hormone - 12/20/16 06:50 TSH 3.52 mIU/mL 0.32-5.00 Complete blood count (CBC) with automated white blood cell (WBC) differential - 04/05/17 10:20 Blood leukocytes automated count (number/volume) 4.5 10*3/uL 4.3-11.0 Blood erythrocytes automated count (number/volume) 4.16 10*6/uL 4.35-5.85 Venous blood hemoglobin measurement (mass/volume) 11.8 g/dL 11.5-16.0 Blood hematocrit (volume fraction) 36 % 35-52 Automated erythrocyte mean corpuscular volume 87 [foz_us] 80-99 Automated erythrocyte mean corpuscular hemoglobin (mass per erythrocyte) 28 pg 25-34 Automated erythrocyte mean corpuscular hemoglobin concentration measurement ( mass/volume) 33 g/dL 32-36 Automated erythrocyte distribution width ratio 14.3 % 10.0-14.5 Automated blood platelet count (count/volume) 244 10*3/uL 130-400 Automated blood platelet mean volume measurement 10.3 [foz_us] 7.4-10.4 Automated blood neutrophils/100 leukocytes 60 % 42-75 Automated blood lymphocytes/100 leukocytes 26 % 12-44 Blood monocytes/100 leukocytes 10 % 0-12 Automated blood eosinophils/100 leukocytes 3 % 0-10 Automated blood basophils/100 leukocytes 0 % 0-10 Blood neutrophils automated count (number/volume) 2.7 10*3 1.8-7.8 Blood lymphocytes automated count (number/volume) 1.2 10*3 1.0-4.0 Blood monocytes automated count (number/volume) 0.5 10*3 0.0-1.0 Automated eosinophil count 0.2 10*3/uL 0.0-0.3 Automated blood basophil count (count/volume) 0.0 10*3/uL 0.0-0.1 Comprehensive metabolic panel - 04/05/17 10:20 Serum or plasma sodium measurement (moles/volume) 135 mmol/L 135-145 Serum or plasma potassium measurement (moles/volume) 3.7 mmol/L 3.6-5.0 Serum or plasma chloride measurement (moles/volume) 98 mmol/L 98-107 Carbon dioxide 26 mmol/L 21-32 Serum or plasma anion gap determination (moles/volume) 11 mmol/L 5-14 Serum or plasma urea nitrogen measurement (mass/volume) 15 mg/dL 7-18 Serum or plasma creatinine measurement (mass/volume) 1.02 mg/dL 0.60-1.30 Serum or plasma urea nitrogen/creatinine mass ratio 15 NRG Serum or plasma creatinine measurement with calculation of estimated glomerular filtration rate 53 NRG Serum or plasma glucose measurement (mass/volume) 240 mg/dL 70-105 Serum or plasma calcium measurement (mass/volume) 9.9 mg/dL 8.5-10.1 Serum or plasma total bilirubin measurement (mass/volume) 0.9 mg/dL 0.1-1.0 Serum or plasma alkaline phosphatase measurement (enzymatic activity/volume) 36 U/L 40-136 Serum or plasma aspartate aminotransferase measurement (enzymatic activity/ volume) 12 U/L 5-34 Serum or plasma alanine aminotransferase measurement (enzymatic activity/volume ) 14 U/L 0-55 Serum or plasma protein measurement (mass/volume) 7.3 g/dL 6.4-8.2 Serum or plasma albumin measurement (mass/volume) 4.3 g/dL 3.2-4.5 Magnesium - 04/05/17 10:20 Magnesium 1.7 mg/dL 1.8-2.4 PT panel in platelet poor plasma by coagulation assay - 04/05/17 10:20 Prothrombin time (PT) in platelet poor plasma by coagulation assay 12.8 s 12.2-14.7 INR in platelet poor plasma or blood by coagulation assay 1.0 0.8-1.4 Activated partial thromboplastin time (aPTT) in platelet poor plasma bycoagulation assay - 04/05/17 10:20 Activated partial thromboplastin time (aPTT) in platelet poor plasma bycoagulation assay 32 s 24-35 Serum or plasma troponin i.cardiac measurement (mass/volume) - 04/05/17 10:20 Serum or plasma troponin i.cardiac measurement (mass/volume) < ng/ mL <0.30 Myoglobin, serum - 04/05/17 10:20 Myoglobin, serum 56.8 ng/mL 10.0-92.0 THYROID STIMULATING HORMONE - 04/05/17 10:20 THYROID STIMULATING HORMONE 2.66 u[iU]/mL 0.35-4.94 Serum or plasma thyroxine (T4) free measurement (mass/volume) - 04/05/17 10:20 Serum or plasma thyroxine (T4) free measurement (mass/volume) 1.10 ng/dL 0.70-1.48 Capillary blood glucose measurement by glucometer (mass/volume) - 04/05/17 16: 48 Capillary blood glucose measurement by glucometer (mass/volume) 162 mg/dL 70-110 Serum or plasma troponin i.cardiac measurement (mass/volume) - 04/05/17 17:59 Serum or plasma troponin i.cardiac measurement (mass/volume) < ng/ mL <0.30 Capillary blood glucose measurement by glucometer (mass/volume) - 04/05/17 20: 37 Capillary blood glucose measurement by glucometer (mass/volume) 214 mg/dL 70-110 Complete blood count (CBC) with automated white blood cell (WBC) differential - 04/06/17 04:13 Blood leukocytes automated count (number/volume) 4.9 10*3/uL 4.3-11.0 Blood erythrocytes automated count (number/volume) 4.10 10*6/uL 4.35-5.85 Venous blood hemoglobin measurement (mass/volume) 11.7 g/dL 11.5-16.0 Blood hematocrit (volume fraction) 36 % 35-52 Automated erythrocyte mean corpuscular volume 87 [foz_us] 80-99 Automated erythrocyte mean corpuscular hemoglobin (mass per erythrocyte) 29 pg 25-34 Automated erythrocyte mean corpuscular hemoglobin concentration measurement ( mass/volume) 33 g/dL 32-36 Automated erythrocyte distribution width ratio 14.1 % 10.0-14.5 Automated blood platelet count (count/volume) 243 10*3/uL 130-400 Automated blood platelet mean volume measurement 10.1 [foz_us] 7.4-10.4 Automated blood neutrophils/100 leukocytes 51 % 42-75 Automated blood lymphocytes/100 leukocytes 32 % 12-44 Blood monocytes/100 leukocytes 13 % 0-12 Automated blood eosinophils/100 leukocytes 3 % 0-10 Automated blood basophils/100 leukocytes 0 % 0-10 Blood neutrophils automated count (number/volume) 2.5 10*3 1.8-7.8 Blood lymphocytes automated count (number/volume) 1.6 10*3 1.0-4.0 Blood monocytes automated count (number/volume) 0.6 10*3 0.0-1.0 Automated eosinophil count 0.2 10*3/uL 0.0-0.3 Automated blood basophil count (count/volume) 0.0 10*3/uL 0.0-0.1 Comprehensive metabolic panel - 04/06/17 04:13 Serum or plasma sodium measurement (moles/volume) 138 mmol/L 135-145 Serum or plasma potassium measurement (moles/volume) 3.9 mmol/L 3.6-5.0 Serum or plasma chloride measurement (moles/volume) 104 mmol/L 98-107 Carbon dioxide 22 mmol/L 21-32 Serum or plasma anion gap determination (moles/volume) 12 mmol/L 5-14 Serum or plasma urea nitrogen measurement (mass/volume) 13 mg/dL 7-18 Serum or plasma creatinine measurement (mass/volume) 0.89 mg/dL 0.60-1.30 Serum or plasma urea nitrogen/creatinine mass ratio 15 NRG Serum or plasma creatinine measurement with calculation of estimated glomerular filtration rate > NRG Serum or plasma glucose measurement (mass/volume) 110 mg/dL 70-105 Serum or plasma calcium measurement (mass/volume) 9.1 mg/dL 8.5-10.1 Serum or plasma total bilirubin measurement (mass/volume) 0.7 mg/dL 0.1-1.0 Serum or plasma alkaline phosphatase measurement (enzymatic activity/volume) 36 U/L 40-136 Serum or plasma aspartate aminotransferase measurement (enzymatic activity/ volume) 12 U/L 5-34 Serum or plasma alanine aminotransferase measurement (enzymatic activity/volume ) 11 U/L 0-55 Serum or plasma protein measurement (mass/volume) 6.3 g/dL 6.4-8.2 Serum or plasma albumin measurement (mass/volume) 3.7 g/dL 3.2-4.5 Lipid 1996 panel - 04/06/17 04:13 Serum or plasma triglyceride measurement (mass/volume) 150 mg/dL <150 Serum or plasma cholesterol measurement (mass/volume) 146 mg/dL < 200 Serum or plasma cholesterol in HDL measurement (mass/volume) 33 mg/ dL 40-60 Cholesterol in LDL [mass/volume] in serum or plasma by direct assay 96 mg/dL 1-129 Serum or plasma cholesterol in VLDL measurement (mass/volume) 30 mg/ dL 5-40 Serum or plasma troponin i.cardiac measurement (mass/volume) - 04/06/17 04:13 Serum or plasma troponin i.cardiac measurement (mass/volume) < ng/ mL <0.30 Activated partial thromboplastin time (aPTT) in platelet poor plasma bycoagulation assay - 04/06/17 14:10 Activated partial thromboplastin time (aPTT) in platelet poor plasma bycoagulation assay 48 s 24-35 Capillary blood glucose measurement by glucometer (mass/volume) - 04/06/17 21: 37 Capillary blood glucose measurement by glucometer (mass/volume) 154 mg/dL 70-110 Complete blood count (CBC) with automated white blood cell (WBC) differential - 04/07/17 04:55 Blood leukocytes automated count (number/volume) 5.9 10*3/uL 4.3-11.0 Blood erythrocytes automated count (number/volume) 4.03 10*6/uL 4.35-5.85 Venous blood hemoglobin measurement (mass/volume) 11.6 g/dL 11.5-16.0 Blood hematocrit (volume fraction) 35 % 35-52 Automated erythrocyte mean corpuscular volume 86 [foz_us] 80-99 Automated erythrocyte mean corpuscular hemoglobin (mass per erythrocyte) 29 pg 25-34 Automated erythrocyte mean corpuscular hemoglobin concentration measurement ( mass/volume) 34 g/dL 32-36 Automated erythrocyte distribution width ratio 14.2 % 10.0-14.5 Automated blood platelet count (count/volume) 246 10*3/uL 130-400 Automated blood platelet mean volume measurement 10.1 [foz_us] 7.4-10.4 Automated blood neutrophils/100 leukocytes 68 % 42-75 Automated blood lymphocytes/100 leukocytes 20 % 12-44 Blood monocytes/100 leukocytes 8 % 0-12 Automated blood eosinophils/100 leukocytes 3 % 0-10 Automated blood basophils/100 leukocytes 1 % 0-10 Blood neutrophils automated count (number/volume) 4.0 10*3 1.8-7.8 Blood lymphocytes automated count (number/volume) 1.2 10*3 1.0-4.0 Blood monocytes automated count (number/volume) 0.5 10*3 0.0-1.0 Automated eosinophil count 0.2 10*3/uL 0.0-0.3 Automated blood basophil count (count/volume) 0.0 10*3/uL 0.0-0.1 PT panel in platelet poor plasma by coagulation assay - 04/07/17 04:55 Prothrombin time (PT) in platelet poor plasma by coagulation assay 13.8 s 12.2-14.7 INR in platelet poor plasma or blood by coagulation assay 1.1 0.8-1.4 Whole blood basic metabolic panel - 04/07/17 04:55 Serum or plasma sodium measurement (moles/volume) 134 mmol/L 135-145 Serum or plasma potassium measurement (moles/volume) 3.8 mmol/L 3.6-5.0 Serum or plasma chloride measurement (moles/volume) 102 mmol/L 98-107 Carbon dioxide 22 mmol/L 21-32 Serum or plasma anion gap determination (moles/volume) 10 mmol/L 5-14 Serum or plasma urea nitrogen measurement (mass/volume) 11 mg/dL 7-18 Serum or plasma creatinine measurement (mass/volume) 0.92 mg/dL 0.60-1.30 Serum or plasma urea nitrogen/creatinine mass ratio 12 NRG Serum or plasma creatinine measurement with calculation of estimated glomerular filtration rate 60 NRG Serum or plasma glucose measurement (mass/volume) 183 mg/dL 70-105 Serum or plasma calcium measurement (mass/volume) 8.9 mg/dL 8.5-10.1 Serum or plasma phosphate measurement (mass/volume) - 04/07/17 04:55 Serum or plasma phosphate measurement (mass/volume) 3.1 mg/dL 2.3-4.7 Magnesium - 04/07/17 04:55 Magnesium 1.8 mg/dL 1.8-2.4 Capillary blood glucose measurement by glucometer (mass/volume) - 04/07/17 12: 21 Capillary blood glucose measurement by glucometer (mass/volume) 206 mg/dL 70-110 Capillary blood glucose measurement by glucometer (mass/volume) - 04/07/17 17: 23 Capillary blood glucose measurement by glucometer (mass/volume) 204 mg/dL 70-110 Capillary blood glucose measurement by glucometer (mass/volume) - 04/07/17 20: 54 Capillary blood glucose measurement by glucometer (mass/volume) 129 mg/dL 70-110 Complete blood count (CBC) with automated white blood cell (WBC) differential - 04/08/17 04:55 Blood leukocytes automated count (number/volume) 4.9 10*3/uL 4.3-11.0 Blood erythrocytes automated count (number/volume) 3.43 10*6/uL 4.35-5.85 Venous blood hemoglobin measurement (mass/volume) 9.7 g/dL 11.5-16.0 Blood hematocrit (volume fraction) 30 % 35-52 Automated erythrocyte mean corpuscular volume 87 [foz_us] 80-99 Automated erythrocyte mean corpuscular hemoglobin (mass per erythrocyte) 28 pg 25-34 Automated erythrocyte mean corpuscular hemoglobin concentration measurement ( mass/volume) 33 g/dL 32-36 Automated erythrocyte distribution width ratio 14.3 % 10.0-14.5 Automated blood platelet count (count/volume) 213 10*3/uL 130-400 Automated blood platelet mean volume measurement 10.1 [foz_us] 7.4-10.4 Automated blood neutrophils/100 leukocytes 55 % 42-75 Automated blood lymphocytes/100 leukocytes 29 % 12-44 Blood monocytes/100 leukocytes 12 % 0-12 Automated blood eosinophils/100 leukocytes 4 % 0-10 Automated blood basophils/100 leukocytes 0 % 0-10 Blood neutrophils automated count (number/volume) 2.7 10*3 1.8-7.8 Blood lymphocytes automated count (number/volume) 1.4 10*3 1.0-4.0 Blood monocytes automated count (number/volume) 0.6 10*3 0.0-1.0 Automated eosinophil count 0.2 10*3/uL 0.0-0.3 Automated blood basophil count (count/volume) 0.0 10*3/uL 0.0-0.1 PT panel in platelet poor plasma by coagulation assay - 04/08/17 04:55 Prothrombin time (PT) in platelet poor plasma by coagulation assay 31.9 s 12.2-14.7 INR in platelet poor plasma or blood by coagulation assay 3.1 0.8-1.4 Comprehensive metabolic panel - 04/08/17 04:55 Serum or plasma sodium measurement (moles/volume) 136 mmol/L 135-145 Serum or plasma potassium measurement (moles/volume) 3.9 mmol/L 3.6-5.0 Serum or plasma chloride measurement (moles/volume) 105 mmol/L 98-107 Carbon dioxide 19 mmol/L 21-32 Serum or plasma anion gap determination (moles/volume) 12 mmol/L 5-14 Serum or plasma urea nitrogen measurement (mass/volume) 9 mg/dL 7-18 Serum or plasma creatinine measurement (mass/volume) 0.94 mg/dL 0.60-1.30 Serum or plasma urea nitrogen/creatinine mass ratio 10 NRG Serum or plasma creatinine measurement with calculation of estimated glomerular filtration rate 59 NRG Serum or plasma glucose measurement (mass/volume) 146 mg/dL 70-105 Serum or plasma calcium measurement (mass/volume) 8.8 mg/dL 8.5-10.1 Serum or plasma total bilirubin measurement (mass/volume) 0.6 mg/dL 0.1-1.0 Serum or plasma alkaline phosphatase measurement (enzymatic activity/volume) 30 U/L 40-136 Serum or plasma aspartate aminotransferase measurement (enzymatic activity/ volume) 13 U/L 5-34 Serum or plasma alanine aminotransferase measurement (enzymatic activity/volume ) 11 U/L 0-55 Serum or plasma protein measurement (mass/volume) 5.8 g/dL 6.4-8.2 Serum or plasma albumin measurement (mass/volume) 3.4 g/dL 3.2-4.5 Serum or plasma phosphate measurement (mass/volume) - 04/08/17 04:55 Serum or plasma phosphate measurement (mass/volume) 2.9 mg/dL 2.3-4.7 Magnesium - 04/08/17 04:55 Magnesium 1.9 mg/dL 1.8-2.4 Protime - 04/12/17 07:18 INR 4.8 1.0-4.0 Protime 60.8 Sec 9.9-12.8 Hemoglobin A1C - 04/16/17 07:10 % A1C 6.60 % 5.40-6.60 AvGlu 157 mg/dL 70-110 Protime - 04/23/17 07:07 INR 1.6 1.0-4.0 Protime 18.5 Sec 9.9-12.8 C.difficile, DNA Amplification - 04/29/17 10:02 C.difficile, DNA Amplification NEGATIVE: No DNA evidence of toxogenic C. difficile detected. Negative Protime - 05/07/17 07:24 INR 1.7 1.0-4.0 Protime 20.1 Sec 9.9-12.8 Protime - 05/21/17 07:16 INR 2.9 1.0-4.0 Protime 33.6 Sec 9.9-12.8 Protime - 06/04/17 07:07 INR 1.8 1.0-4.0 Protime 21.4 Sec 9.9-12.8 Protime - 06/18/17 07:16 INR 2.4 1.0-4.0 Protime 28.6 Sec 9.9-12.8 Protime - 07/02/17 07:19 INR 1.8 1.0-4.0 Protime 21.1 Sec 9.9-12.8 Protime - 07/16/17 07:56 INR 1.9 1.0-4.0 Protime 22.0 Sec 9.9-12.8 Protime - 08/01/17 09:12 INR 3.1 1.0-4.0 Protime 36.4 Sec 9.9-12.8 Protime - 08/15/17 09:37 INR 2.6 1.0-4.0 Protime 30.8 Sec 9.9-12.8 Protime - 09/14/17 08:34 INR 1.5 1.0-4.0 Protime 17.4 Sec 9.9-12.8 Protime - 09/24/17 07:55 INR 2.0 1.0-4.0 Protime 23.3 Sec 9.9-12.8 Protime - 10/09/17 07:11 INR 3.0 1.0-4.0 Protime 34.9 Sec 9.9-12.8 Protime - 11/07/17 09:11 INR 4.4 Result Verified by Repeat Analysis 1.0-4.0 Protime 56.0 Result Verified by Repeat Analysis Sec 9.9- 12.8 Protime - 11/22/17 07:52 INR 2.8 1.0-4.0 Protime 34.4 Sec 9.9-12.8 Protime - 12/14/17 16:56 INR 7.0 1.0-4.0 Protime 81.6 Sec 9.9-12.8 Protime - 12/17/17 07:10 INR 3.6 1.0-4.0 Protime 41.7 Sec 9.9-12.8 Protime - 12/27/17 15:13 INR 2.2 1.0-4.0 Protime 25.7 Sec 9.9-12.8 Lipid Panel - 12/31/17 06:51 C/HDL 5.1 3.7-6.7 Cholesterol 159 mg/dL 100-240 HDL 31 mg/dL 30- LDL-Calculated 89 mg/dL 0-100 Trig 196 mg/dL 35-160 VLDL 39 mg/dL 0-42 Protime - 01/07/18 06:49 INR 1.5 1.0-4.0 Protime 17.5 Sec 9.9-12.8 Protime - 02/15/18 16:00 INR 3.6 1.0-4.0 Protime 42.6 Sec 9.9-12.8 Protime - 03/05/18 06:58 INR 3.1 1.0-4.0 Protime 36.0 Sec 9.9-12.8 Protime - 03/20/18 08:26 INR 2.5 1.0-4.0 Protime 29.2 Sec 9.9-12.8 Protime - 04/22/18 15:06 INR 3.9 1.0-4.0 Protime 45.9 Sec 9.9-12.8 Protime - 04/30/18 10:15 INR 2.2 1.0-4.0 Protime 25.1 Sec 9.9-12.8 Lipid Panel - 05/03/18 06:46 C/HDL 4.5 3.7-6.7 Cholesterol 154 mg/dL 100-240 HDL 34 mg/dL 30- LDL-Calculated 96 mg/dL 0-100 Trig 119 mg/dL 35-160 VLDL 24 mg/dL 0-42 Protime - 06/05/18 15:53 INR 2.6 1.0-4.0 Protime 30.5 Sec 9.9-12.8 BMP - 06/13/18 12:10 Anion Gap 14 6-14 BUN 21 mg/dL 5-25 Calcium 9.1 mg/dL 8.3-10.4 Chloride 98 mmol/L 95-114 CO2 24 mEq/L 22-33 Creat 1.58 mg/dL 0.50-1.50 eGFR 32 mL/min/1.73m2 >59 Glucose 283 mg/dL 70-110 Osmo 285 280-295 Potassium 4.2 mmol/L 3.5-5.3 Sodium 132 mmol/L 134-148 THYROID STIMULATING HORMONE - 06/19/18 14:40 THYROID STIMULATING HORMONE 3.00 u[iU]/mL 0.35-4.94 Encounters ACCT No. Visit Date/Time Discharge Status Pt. Type Provider Facility Loc./Unit Complaint [id number] 07/11/2018 07:42:00 07/11/2018 23:59:59 CLS Preadmit DEX BAILEY, CLARE [facility] RAD CHRONIC KIDNEY DISEASE STAGE 3 [id number] 07/01/2018 08:11:00 07/01/2018 23:59:59 CLS Outpatient NINA BENTON [facility] CARD AF,CAD,HTN [id number] 06/26/2018 11:46:00 06/26/2018 23:59:59 CLS Outpatient NINA BENTON [facility] CARD AF,CAD,HTN [id number] 06/19/2018 14:30:00 06/19/2018 23:59:59 CLS Outpatient NINA BENTON [facility] RAD I48.0 [id number] 05/20/2018 11:24:00 05/20/2018 23:59:59 CLS Outpatient NURIA LINDER [facility] RAD SCREENING [id number] 12/13/2017 12:51:00 12/13/2017 23:59:59 CLS Outpatient TASH GILL APRN [facility] RAD LEFT KNEE PAIN [id number] 04/06/2017 12:20:00 04/08/2017 12:00:00 DIS Inpatient SISI BAILEY, SANDY Briones [facility] ICU NEW ONSET A-FIB CHEST PAIN [id number] 04/04/2017 09:17:00 04/04/2017 23:59:59 CLS Outpatient TASH GILL APRN [facility] RAD SCREENING Z12.31 [id number] 04/11/2016 13:03:00 04/11/2016 23:59:59 CLS Outpatient TASH GILL [employer] RAD SCREENING [id number] 03/25/2015 09:21:00 03/25/2015 23:59:59 CLS Outpatient ENRIQUE HESTER [employer] [employer] [facility] RAD SCREENING [id number] 12/28/2014 00:11:00 12/28/2014 23:59:59 CLS Preadmit SANDY GARCIA MD [facility] IRON DEFICIENCY ANEMIA [id number] 10/09/2014 09:01:00 12/27/2014 00:01:00 DIS Outpatient SANDY GARCIA MD [facility] IRON DEFICIENCY ANEMIA [id number] 03/24/2014 08:39:00 03/24/2014 23:59:59 CLS Outpatient SANDY GARCIA MD [facility] RAD SCREENING [id number] 03/20/2013 07:20:00 03/20/2013 23:59:59 CLS Outpatient SANDY GARCIA MD [facility] RAD SCREENING [id number] 07/17/2018 09:00:00 PEN Preadmit MILADIS FISHER MD [facility] CATH [facility] STRESS TEST [id number] 04/11/2016 13:03:00 Document Registration [id number] 04/29/2012 12:03:00 Document Registration [id number] 03/01/2012 12:35:00 Document Registration [id number] 02/24/2011 12:57:00 Document Registration [id number] 06/18/2017 00:07:11 06/18/2017 23:59:59 CLS Outpatient Sandy Garcia [id number] 12/17/2017 07:08:00 Document Registration [id number] 03/25/2015 09:21:32 ACT Document Registration [id number] 07/03/2018 16:02:00 07/03/2018 23:59:00 DIS Outpatient MILDAIS FISHER [id number] 06/13/2018 12:05:00 06/13/2018 23:59:00 DIS Outpatient SANDY GARCIA [id number] 06/05/2018 15:40:00 06/05/2018 23:59:00 DIS Outpatient NATALIA, [facility] [id number] 05/03/2018 06:42:00 05/03/2018 23:59:00 DIS Outpatient SANDY GARCIA [id number] 04/30/2018 10:05:00 04/30/2018 23:59:00 DIS Outpatient NATALIA, [facility] [id number] 04/22/2018 14:59:00 04/22/2018 23:59:00 DIS Outpatient NATALIA, [facility] [id number] 03/20/2018 08:24:00 03/20/2018 23:59:00 DIS Outpatient NATALIA, [facility] [id number] 03/05/2018 06:53:00 03/05/2018 23:59:00 DIS Outpatient NATALIA, [facility] [id number] 02/15/2018 15:51:00 02/15/2018 23:59:00 DIS Outpatient NATALIA, [facility] [id number] 01/21/2018 08:02:00 01/21/2018 23:59:00 DIS Outpatient NATALIA, [facility] [id number] 01/07/2018 06:47:00 01/07/2018 23:59:00 DIS Outpatient NATALIA, [facility] [id number] 12/31/2017 06:48:00 12/31/2017 23:59:00 DIS Outpatient SANDY GARCIA [id number] 12/27/2017 15:04:00 12/27/2017 23:59:00 DIS Outpatient NATALIA, MILADIS [id number] 12/17/2017 07:08:00 12/17/2017 23:59:00 DIS Outpatient NATALIA, MILADIS [id number] 12/14/2017 16:52:00 12/14/2017 23:59:00 DIS Outpatient NATALIA, MILADIS [id number] 11/22/2017 07:46:00 11/22/2017 23:59:00 DIS Outpatient NATALIA, MILADIS [id number] 11/07/2017 09:06:00 11/07/2017 23:59:00 DIS Outpatient NATALIA, [facility] [id number] 10/09/2017 06:59:00 10/09/2017 23:59:00 DIS Outpatient NATALIA, [facility] [id number] 09/24/2017 07:49:00 09/24/2017 23:59:00 DIS Outpatient NATALIA, [facility] [id number] 09/14/2017 08:29:00 09/14/2017 23:59:00 DIS Outpatient NATALIA, [facility] [id number] 08/15/2017 09:34:00 08/15/2017 23:59:00 DIS Outpatient NATALIA, [facility] [id number] 08/01/2017 09:05:00 08/01/2017 23:59:00 DIS Outpatient NATALIA, [facility] [id number] 07/16/2017 07:54:00 07/16/2017 23:59:00 DIS Outpatient NATALIA, [facility] [id number] 07/02/2017 07:14:00 07/02/2017 23:59:00 DIS Outpatient NATALIA, [facility] [id number] 06/18/2017 07:09:00 06/18/2017 23:59:00 DIS Outpatient NATALIA, [facility] [id number] 06/04/2017 06:56:00 06/04/2017 23:59:00 DIS Outpatient NATALIA, [facility] [id number] 05/21/2017 07:06:00 05/21/2017 23:59:00 DIS Outpatient NATALIA, [facility] [id number] 05/07/2017 07:14:00 05/07/2017 23:59:00 DIS Outpatient NATALIA, [facility] [id number] 04/29/2017 10:00:00 04/29/2017 23:59:00 DIS Outpatient Nina Graham Beau [id number] 04/23/2017 07:00:00 04/23/2017 23:59:00 DIS Outpatient NATALIA, [facility] [id number] 04/16/2017 06:55:00 04/16/2017 23:59:00 DIS Outpatient NATALIA, [facility] [id number] 04/12/2017 07:12:00 04/12/2017 23:59:00 DIS Outpatient NATALIA, [facility] [id number] 04/11/2017 07:08:00 04/11/2017 07:08:00 CAN Outpatient SANDY GARCIA [id number] 12/20/2016 06:43:00 12/20/2016 23:59:00 DIS Outpatient SANDY GARCIA [id number] 08/10/2016 07:04:00 08/10/2016 23:59:00 DIS Outpatient SANDY GARCIA
[2018-07-17] MEDS ORDERED: ATOR20TA66 PO (07:51)
[2018-07-17] MEDS ORDERED: MIDAZOLAM 5 MG/5 ML (VERSED) VIAL ONE (08:00)
[2018-07-17] MEDS ORDERED: fentaNYL INJECTION 100 MCG/2 ML AMP ONE (08:00)
--- NOTE | 2018-07-17 08:46 | Cardiac Procedure Note-CS/ASA ---
Pre-Procedure Note Pre-Op Procedure Note H&P Reviewed The H&P was reviewed, patient examined and no changes noted. Date H&P Reviewed: Jul 17, 2018 Time H&P Reviewed: 08:46 Conscious Sedation Pre-Proced Time 08:46 ASA Score 3 For ASA 3 and 4: Consider anesthesia and medical clearance. Also, for patients with a history of failed moderate sedation consider anesthesia. Airway Lungs Heart ASA score ASA 1: a normal healthy patient ASA 2: a patient with a mild systemic disease (mid diabetes, controlled hypertension, obesity x ASA 3: a patient with a severe systemic disease that limits activity (angina , COPD, prior Myocardial infarction) ASA 4: a patient with an incapacitating disease that is a constant threat to life (CHF, renal failure) ASA 5: a moribund patient not expected to survive 24 hrs. (ruptured aneurysm) ASA 6: a declared brain patient whose organs are being harvested. For emergent operations, add the letter E after the classification Mallampati Classification Grade 3 Sedation Plan Analgesia, Amnesia, Plan communicated to team members, Discussed options with patient/fam, Discussed risks with patient/fam The patient is an appropriate candidate to undergo the planned procedure, sedation, and anesthesia. The patient immediately re-assessed prior to indication. MILADIS FISHER MD Jul 17, 2018 08:46
--- NOTE | 2018-07-17 08:50 | Cardiac Cath Report ---
Cardiac Cath Report Physician (s)/Director Of Business Systems (s) Physician MILADIS FISHER MD Pre-Procedure Diagnosis Pre-Procedure Diagnosis: coronary artery disease, chest pain Post-Procedure Note Procedure Start Date: Jul 17, 2018 Name of Procedure: left heart catheterization Findings/Procedure Note PROCEDURE NOTE: After explaining the procedure to the patient, all pros and cons were explained , all questions were answered. The patient signed the consent and then she was placed on the cardiac catheterization laboratory. Groin was prepped SL fashion local anesthesia was used. Sheath placed in the right femoral artery. David right and left catheter were used to access the coronary system. Pigtail was used to access the left ventricular cavity. Left ventriculogram was not done, pressure was measured At the end of the procedure the sheath was removed. Closure device FINDINGS: Hemodynamics LV 133/19, end-diastolic pressure of 19 Aorta 133/49 mean of 79 ANATOMY: Left Main is free of obstructive disease Left Anterior Descending is small to moderate in size with 2 significant lesions in the mid and distal portion involving the second diagonal branch Left Circumflex is small to moderate in size, the first obtuse marginal branch has severe proximal stenosis, second obtuse marginal branch has severe ostial stenosis and the proper circumflex artery which tapered down into smaller artery has moderate to severe stenosis Right Coronory Artery is large dominant artery with a patent stent, beyond the stent there is an area of severe stenosis LV Gram was not done, pressure was measured CONCLUSION: 1. Severe multi-vessel coronary artery disease including mid and distal LAD, first and second obtuse marginal branch and dominant right coronary artery 2. Mildly elevated left ventricular end-diastolic pressure, patient is known to have normal left ventricular function by echo DISCUSSION AND RECOMMENDATION: Arrangement for evaluation for possible CABG versus high risk intervention for triple-vessel disease Anesthesia Type: Conscious Sedation Estimated blood loss (mL): 15 ml Contrast Amount: 33 ml Total Radiation Dose: 566 mGy Post-Procedure Diagnosis Post-operative diagnosis: Chest pain Coronary artery disease Chronic atrial fibrillation Hypertension MILADIS FISHER MD Jul 17, 2018 08:50
[2018-07-17] MEDS ORDERED: PATIENT MAY USE OWN MEDS, ALL PO SCH (09:00)
--- NOTE | 2018-07-17 09:22 | Discharge Inst-Post CATH ---
Discharge Inst-CATH/EP Post Cardiac Cath/EP D/C Inst Follow Up/Plan Appointment with Dr Bauman Appointment with Dr Andrews CARDIAC CATH DISCHARGE INSTRUCTIONS *Hold Metformin for 48 hours post heart cath. ACTIVITY * Go Home directly and rest. * Limit activity of the leg (or wrist if it was used) for 7 days including aerobics, swimming, jogging, bicycling, etc. * Restrict stair-climbing for 7 days if possible, if not, climb up with your non -cath leg, then bring together on the same step. * Avoid lifting, pushing, pulling or excessive movement of the affected extremity for 7 days. * Customary sexual activity may be resumed after 2 days-use caution not to use a position that strains or causes pain to the affected extremity. * No driving for 24 hours. * NO SMOKING. * Avoid straining for bowel movements for 7 days. * Gentle walking on level ground is allowed. * Returning to work will depend on the type of procedure and the results. Your doctor will discuss this with you. CALL YOUR DOCTOR FOR ANY OF THE FOLLOWING: *If bleeding from the puncture site occurs- Apply gentle pressure to site with clean cloth and call your doctor or EMS. * If a knot or lump forms under the skin, increases in size, or causes pain. * If bruising appears to be worsening or moving further down your leg instead of disappearing. * Temperature above 101 F. CARE OF YOUR GROIN INCISION; * Bruising or purple discoloration of the skin near the puncture site is common. * You may shower only, no bathtub bathing for 5 days. Be careful to avoid slipping as your leg may feel stiff. * If a closure device was used on your femoral artery, please see the attached guide regarding care of the device and your leg. * Leave the dressing on, until removed by office staff. CARE OF YOUR WRIST INCISION; * Bruising or purple discoloration of the skin near the puncture site is common. * You may shower. * DO NOT submerge wrist. * Leave dressing on, until removed by office staff.. MILADIS ANDREWS MD Jul 17, 2018 09:22
[2018-07-17] MEDS ORDERED: PATIENT MAY USE OWN MED,SINGLE MED PO SCH (11:00)
[2018-07-18] MEDS ORDERED: AMIODARONE 200 MG (CORDARONE) TAB PO SCH (09:00)
[2018-07-18] MEDS ORDERED: meTOproloL SUCCINATE 50 MG (TOPROL XL) TAB PO SCH (09:00)
== END 2018-07-17 13:39 | disposition home or self-care (01) ==
LOC: CATH 06:36 → ICU 09:01 → CATH 13:39
PROVIDERS: ATTEND Internal Medicine Cardiovascular Disease
DX: I25.10 Atherosclerotic heart disease of native coronary artery without angina pectoris (principal); R07.9 Chest pain, unspecified; E11.9 Type 2 diabetes mellitus without complications; I48.2 Chronic atrial fibrillation; R00.1 Bradycardia, unspecified; I10 Essential (primary) hypertension; E78.5 Hyperlipidemia, unspecified; I65.23 Occlusion and stenosis of bilateral carotid arteries; Z79.01 Long term (current) use of anticoagulants; Z79.899 Other long term (current) drug therapy; Z96.659 Presence of unspecified artificial knee joint
CPT/HCPCS: 36415; 71045; 80053; 80061; 81000; 85027; 85610; 85730; 87081; 87088; 93458

== ENCOUNTER → 2018-08-02 | Outpatient (CLI) | payer MEDICARE, OTHER ==
[~2018-08-02] MED LIST changes: +ATOR20TA66 PO; +CLOP75TA69 PO; +DIPH1TAB PO; +ESCI5TAB12 PO; +HYDR-3812 PO; +METO-370 PO; +MULT1TAB69 PO; +WARF-47 PO
== END ==
LOC: RT 12:26
PROVIDERS: ATTEND Thoracic Surgery (Cardiothoracic Vascular Surgery)
DX: I25.10 Atherosclerotic heart disease of native coronary artery without angina pectoris (principal)
CPT/HCPCS: 94060; 94726; 94729

== ENCOUNTER 2018-10-02 06:34 | Day surgery (SDC) | payer MEDICARE, OTHER ==
[~2018-10-02] VITALS: Ht 165.1 cm; Wt 97.5 kg
[2018-10-02] VITALS (10 sets, daily range): BP systolic 129–159; BP diastolic 72–108
[~2018-10-02 06:34] MED LIST changes: -AMLO5TAB7 PO; +AMLO5TAB9 PO
--- OUTSIDE RECORDS SUMMARY | 2018-10-02 06:45 | XMS REPORT | CCD ---
Author Author Daisy Garcia Organization [facility] Address [address] [place] [address] Phone Care Team Providers Care Cook [employer] Name Role Phone Daisy Garcia PP Unavailable CCM Unavailable Summary Purpose Interface Exchange Insurance Providers Payer name Policy type / Coverage type Covered republican ID Effective Begin Date Effective End Date WPS Medicare Part B Medicare Part B [id number] 2018 Unknown [employer] Medicare Part B [id number] Unknown Family history Sister Diagnosis Age At [...] 1 daughter 04/21/[address]: 221151811 Nonsmoker 04/21/[address]: 567338794 Never drinks alcohol 04/21/2011 Has the patient [...] Codes Condition Status Onset Date Resolved Date Type 2 diabetes mellitus with hyperglycemia ICD-9: 250.02 ICD-10: E11.65 Active 12/18/2017 Unknown Chronic atrial fibrillation ICD-9: 427.31 ICD-10: I48.2 Active 04/16/2017 Unknown Chronic kidney disease, stage 3 (moderate) ICD-9: 585.3 ICD-10: N18.3 Active 05/07/2018 Unknown Essential (primary) hypertension ICD-9: 401.9 ICD-10: I10 Active 04/03/2014 Unknown Low back pain ICD-9: 724.2 ICD-10: M54.5 Active 05/29/2018 Unknown Sacrococcygeal disorders, not elsewhere classified ICD-9: 724.6 ICD-10: M53.3 Active 05/29/2018 Unknown Sciatica, right side ICD-9: 724.3 ICD-10: M54.31 Active 05/29/2018 Unknown Encounter for screening mammogram for malignant neoplasm of breast ICD-9: V76.12 ICD-10: Z12.31 Active 05/20/2018 Unknown Other vitamin B12 deficiency anemias ICD-9: 281.1 ICD-10: D51.8 Active 06/11/2016 Unknown Type 2 diabetes mellitus without complications ICD-9: 250.00 ICD-10: E11.9 Active 08/29/2016 Unknown VACCIN FOR INFLUENZA ICD-9: V04.81 ICD-10: Z23 Active 04/03/2014 Unknown Encounter for general adult medical examination with abnormal findings ICD-9: V70.0 ICD-10: Z00.01 Active 01/29/2018 Unknown Encounter for immunization ICD-9: V03.82 ICD-10: Z23 Active 01/29/2018 Unknown Other lesions of oral mucosa ICD-9: 528.9 ICD-10: K13.79 Active 12/27/2017 Unknown 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 Active 12/27/2017 Unknown Pain in left knee ICD- 9: 719.46 ICD-10: M25.562 Active 12/13/2017 Unknown Vitamin B12 deficiency anemia, unspecified ICD-9: [...] Problems Condition Codes Effective Dates Condition Status Type 2 diabetes mellitus with hyperglycemia ICD-9: 250.02 ICD-10: E11.65 12/18/2017 Active Chronic atrial fibrillation ICD-9: 427.31 ICD-10: I48.2 04/16/2017 Active Chronic kidney disease, stage 3 (moderate) ICD-9: 585.3 ICD-10: N18.3 05/07/2018 Active Essential (primary) hypertension ICD-9: 401.9 ICD-10: I10 04/03/2014 Active Low back pain ICD-9: 724.2 ICD-10: M54.5 05/29/2018 Active Sacrococcygeal disorders, not elsewhere classified ICD-9: 724.6 ICD-10: M53.3 05/29/2018 Active Sciatica, right side ICD-9: 724.3 ICD-10: M54.31 05/29/2018 Active Encounter for screening mammogram for malignant neoplasm of breast ICD-9: V76.12 ICD-10: Z12.31 05/20/2018 Active Other vitamin B12 deficiency anemias ICD-9: 281.1 ICD-10: D51.8 06/11/2016 Active Type 2 diabetes mellitus without complications ICD-9: 250.00 ICD-10: E11.9 08/29/2016 Active VACCIN FOR INFLUENZA ICD-9: V04.81 ICD-10: Z23 04/03/2014 Active Encounter for general adult medical examination with abnormal findings ICD-9: V70.0 ICD-10: Z00.01 01/29/2018 Active Encounter for immunization ICD-9: V03.82 ICD-10: Z23 01/29/2018 Active Other lesions of oral mucosa ICD-9: 528.9 ICD-10: K13.79 12/27/2017 Active 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 Andrews 09/10/2018 No Stop Date Active Lexapro 5 mg tablet RxNorm: 402187 TAKE ONE TABLET BY MOUTH EVERY EVENING 09/10/2018 09/04/2019 Active Toujeo Max U-300 SoloStar 300 unit/mL (3 mL) subcutaneous insulin pen RxNorm: 4336218 10 Unit(s) SQ QHS increase by 4 units every 3 days until BS under 150 08/30/2018 02/25/2019 Active Toujeo Max U-300 SoloStar 300 unit/mL (3 mL) subcutaneous insulin pen RxNorm: 8960438 10 Unit(s) SQ QHS increase by 4 units every 3 days until BS under 150 08/30/2018 08/29/2018 Inactive Synthroid 50 mcg tablet RxNorm: 718226 TAKE ONE TABLET BY MOUTH EVERY DAY. 08/13/2018 04/09/2019 Active Tricor 145 mg tablet RxNorm: 892832 TAKE ONE TABLET BY MOUTH DAILY 08/13/2018 11/10/2018 Active metoprolol succinate ER 25 mg capsule sprinkle, ext. release 24 hr RxNorm: 2211593 1 Capsule(s) PO daily 08/05/2018 Active Lasix 20 mg tablet RxNorm: 425551 TAKE ONE TABLET BY MOUTH DAILY NEEDED FOR SWELLING. TAKE POTASSIUM WITH EACH DOSE. 08/02/2018 04/28/2019 Active potassium chloride ER 20 mEq tablet,extended release(part/ cryst) RxNorm: 3235071 TAKE ONE TABLET BY MOUTH DAILY WHEN YOU TAKE LASIX (FUROSEMIDE) 08/02/2018 07/27/2019 Active Lasix 20 mg tablet RxNorm: 813370 Tablet(s) TAKE ONE TABLET BY MOUTH DAILY NEEDED FOR SWELLING. TAKE POTASSIUM WITH EACH DOSE 201808/01/2018 Inactive potassium chloride ER 20 mEq tablet,extended release(part/ cryst) RxNorm: 4816742 Tablet(s) TAKE ONE TABLET BY MOUTH DAILY WHEN YOU TAKE LASIX (FUROSEMIDE) 08/02/2018 08/01/2018 Inactive spironolactone 25 mg tablet RxNorm: 477568 Tablet(s) TAKE ONE TABLET BY MOUTH TWICE A DAY 06/11/2018 08/07/2018 Inactive Zorvolex 35 mg capsule RxNorm: 1121093 1 Capsule(s) PO TID 07/201706/28/2018 Inactive Zorvolex 35 mg capsule RxNorm: 5452060 1 Capsule(s) PO TID 07/201705/29/2018 Inactive Lexapro 5 mg tablet RxNorm: 866367 TAKE ONE TABLET BY MOUTH EVERY EVENING 05/30/2018 09/09/2018 Inactive Kenalog 40 mg/mL suspension for injection RxNorm: 3948903 1 Milliliter(s) Inj 05/29/2018 05/29/2018 Inactive Lomotil 2.5 mg-0.025 mg tablet RxNorm: 3372816 Tablet(s) PO TAKE ONE TABLET BY MOUTH EVERY 8 HOURS NEEDED 05/08/2018 07/06/2018 Inactive warfarin 2 mg tablet RxNorm: 057632 1 Tablet(s) PO daily 3 days per week, 1/2 Tablet PO 4 days per week- Dr. Andrews manages 05/07/2018 No Stop Date Active cyanocobalamin (vit B-12) 1,000 mcg/mL injection solution RxNorm: 781767 1 Milliliter(s) Inj 05/07/2018 05/07/2018 Inactive Lasix 20 mg tablet RxNorm: 100520 TAKE ONE TABLET BY MOUTH DAILY NEEDED FOR SWELLING. TAKE POTASSIUM WITH EACH DOSE 04/30/2018 08/01/2018 Inactive Synthroid 50 mcg tablet RxNorm: 718690 TAKE ONE TABLET BY MOUTH EVERY DAY. 04/23/2018 08/12/2018 Inactive cyanocobalamin (vit B-12) 1,000 mcg/mL injection solution RxNorm: 926985 Milliliter(s) Inj 04/04/2018 04/04/2018 Inactive glipizide 10 mg tablet RxNorm: 375907 Tablet(s) TAKE ONE TABLET BY MOUTH TWICE A DAY 04/03/2018 07/16/2018 Inactive amlodipine 5 mg tablet RxNorm: 583067 TAKE ONE TABLET BY MOUTH TWICE A DAY 03/12/2018 08/07/2018 Inactive potassium chloride ER 20 mEq tablet,extended release(part/ cryst) RxNorm: 3913384 TAKE ONE TABLET BY MOUTH DAILY WHEN YOU TAKE LASIX (FUROSEMIDE) 03/12/2018 08/01/2018 Inactive spironolactone 25 mg tablet RxNorm: 012802 TAKE ONE TABLET BY MOUTH TWICE A DAY 03/11/2018 06/10/2018 Inactive cyanocobalamin (vit B-12) 1,000 mcg/mL injection solution RxNorm: 381671 1 Milliliter(s) Inj 03/04/2018 03/04/2018 Inactive cyanocobalamin (vit B-12) 1,000 mcg/mL injection solution RxNorm: 368611 1 Milliliter(s) Inj 01/29/2018 01/29/2018 Inactive amlodipine 5 mg tablet RxNorm: 965739 1 Tablet(s) PO QPM 201703/11/2018 Inactive amiodarone 200 mg tablet RxNorm: 863571 1/2 Tablet(s) PO daily 01/29/2018 08/01/2018 Inactive Lexapro 5 mg tablet RxNorm: 351072 1 Tablet(s) PO QPM 201705/29/2018 Inactive warfarin 2 mg tablet RxNorm: 336975 1 Tablet(s) PO daily 4 days per week, 1/2 Tablet PO 3 days per week 01/29/201805/06 Inactive Tenex 1 mg tablet RxNorm: 394234 TAKE ONE TABLET BY MOUTH DAILY 01/21/2018 01/15/2019 Active acyclovir 800 mg tablet RxNorm: 459000 1 Tablet(s) PO TID use if needed for mouth sores 01/01/2018 01/14/2018 Inactive simvastatin 20 mg tablet RxNorm: 944669 TAKE ONE TABLET BY MOUTH EVERY NIGHT AT BEDTIME 12/27/2017 01/28/2018 Inactive acyclovir 800 mg tablet RxNorm: 501069 1 Tablet(s) PO TID 12/2712/31/2017 Inactive metoprolol succinate ER 50 mg tablet,extended release 24 hr RxNorm: 912372 1 Tablet(s) PO daily 12/18/2017 07/15/2018 Inactive cyanocobalamin (vit B-12) 1,000 mcg/mL injection solution RxNorm: 499573 Milliliter(s) Inj 12/18/2017 12/18/2017 Inactive prednisone 20 mg tablet RxNorm: 521742 1 Tablet(s) PO BID 12/1312/17/2017 Inactive spironolactone 25 mg tablet RxNorm: 070625 TAKE ONE TABLET BY MOUTH TWICE A DAY 12/03/2017 03/02/2018 Inactive hydrocodone 5 mg-acetaminophen 325 mg tablet RxNorm: 673226 1-2 Tablet(s) PO Q4 PRN as needed pain 11/20/2017 No Stop Date Active cyanocobalamin (vit B-12) 1,000 mcg/mL injection solution RxNorm: 906530 1 Milliliter(s) Inj 11/20/2017 11/20/2017 Inactive Lomotil 2.5 mg-0.025 mg tablet RxNorm: 6261246 Tablet(s) PO TAKE ONE TABLET BY MOUTH EVERY 8 HOURS NEEDED 11/07/2017 01/04/2018 Inactive Synthroid 50 mcg tablet RxNorm: 249247 TAKE ONE TABLET BY MOUTH EVERY DAY. 10/16/2017 04/13/2018 Inactive potassium chloride ER 20 mEq tablet,extended release(part/ cryst) RxNorm: 7286326 TAKE ONE TABLET BY MOUTH DAILY WHEN YOU TAKE LASIX (FUROSEMIDE) 09/17/2017 03/11/2018 Inactive Lasix 20 mg tablet RxNorm: 769743 Tablet(s) TAKE ONE TABLET BY MOUTH EVERY DAY NEEDED FOR SWELLING. TAKE POTASSIUM WITH EACH DOSE 201701/07/2018 Inactive glipizide 10 mg tablet RxNorm: 251823 TAKE ONE TABLET BY MOUTH TWICE A DAY 08/28/2017 04/02/2018 Inactive Request already responded to by other means (e.g. phone or fax) glipizide 10 mg tablet RxNorm: 880767 Tablet(s) TAKE ONE TABLET BY MOUTH TWICE A DAY 08/23/2017 08/27/2017 Inactive cyanocobalamin (vit B-12) 1,000 mcg/mL injection solution RxNorm: 287756 1 Milliliter(s) Inj 08/21/2017 08/21/2017 Inactive Synthroid 50 mcg tablet RxNorm: 925320 TAKE ONE TABLET BY MOUTH EVERY DAY. 08/15/2017 10/13/2017 Inactive metformin ER 500 mg tablet,extended release 24 hr RxNorm: 151601 TAKE TWO TABLETS BY MOUTH TWICE A DAY 07/31/20172017 Inactive Tricor 145 mg tablet RxNorm: 490545 TAKE ONE TABLET BY MOUTH DAILY 07/31/2017 11/27/2017 Inactive spironolactone 25 mg tablet RxNorm: 199842 TAKE ONE TABLET BY MOUTH TWICE A DAY 07/31/2017 12/02/2017 Inactive Tenex 1 mg tablet RxNorm: 410024 TAKE ONE TABLET BY MOUTH DAILY 07/20/2017 01/15/2018 Inactive cyanocobalamin (vit B-12) 1,000 mcg/mL injection solution RxNorm: 534385 1 Milliliter(s) Inj 07/18/2017 07/18/2017 Inactive Flonase Allergy Relief 50 mcg/actuation nasal spray, suspension RxNorm: 7282667 1 Perley NASAL BID 06/18/20172017 Inactive Byetta 10 mcg/dose(250 mcg/mL)2.4 mL subcutaneous pen injector RxNorm: 533739 INJECT 10 MCG UNDER THE SKIN TWO TIMES A DAY ( START AFTER 5 MCG DOSE IS COMPLETE ) 06/18/2017 04/13/2018 Inactive potassium chloride ER 20 mEq tablet,extended release(part/ cryst) RxNorm: 6439296 TAKE ONE TABLET BY MOUTH DAILY WHEN YOU TAKE LASIX (FUROSEMIDE) 06/18/2017 09/15/2017 Inactive Kenalog 40 mg/mL suspension for injection RxNorm: 6880777 1 Milliliter(s) Inj 06/18/2017 06/18/2017 Inactive cyanocobalamin (vit B-12) 1,000 mcg/mL injection solution RxNorm: 403693 1 Milliliter(s) Inj 06/18/2017 06/18/2017 Inactive Lasix 20 mg tablet RxNorm: 192556 Tablet(s) TAKE ONE TABLET BY MOUTH EVERY DAY NEEDED FOR SWELLING. TAKE POTASSIUM WITH EACH DOSE 201609/09/2017 Inactive cyanocobalamin (vit B-12) 1,000 mcg/mL injection solution RxNorm: 600987 1 Milliliter(s) Inj 05/09/2017 05/09/2017 Inactive cyanocobalamin (vit B-12) 1,000 mcg/mL injection solution RxNorm: 267908 1 Milliliter(s) Inj 04/04/2017 04/04/2017 Inactive metformin ER 500 mg tablet,extended release 24 hr RxNorm: 943324 TAKE TWO TABLETS BY MOUTH TWICE A DAY 03/01/20172016 Inactive Kenalog 40 mg/mL suspension for injection RxNorm: 7322062 1 Milliliter(s) Inj 02/23/2017 02/23/2017 Inactive amlodipine 5 mg tablet RxNorm: 761026 TAKE ONE TABLET BY MOUTH TWICE A DAY 02/22/2017 11/18/2017 Inactive glipizide 10 mg tablet RxNorm: 901263 TAKE ONE TABLET BY MOUTH TWICE A DAY 02/12/2017 08/10/2017 Inactive cyanocobalamin (vit B-12) 1,000 mcg/mL injection solution RxNorm: 432139 Milliliter(s) Inj 01/23/2017 01/23/2017 Inactive Synthroid 50 mcg tablet RxNorm: 312087 TAKE ONE TABLET BY MOUTH EVERY DAY. 12/21/2016 06/18/2017 Inactive potassium chloride ER 20 mEq tablet,extended release(part/ cryst) RxNorm: 1548979 TAKE ONE TABLET BY MOUTH DAILY WHEN YOU TAKE LASIX (FUROSEMIDE) 12/21/2016 04/19/2017 Inactive Tricor 145 mg tablet RxNorm: 636653 TAKE ONE TABLET BY MOUTH DAILY 12/21/2016 06/06/2017 Inactive Lasix 20 mg tablet RxNorm: 381357 TAKE ONE TABLET BY MOUTH EVERY DAY NEEDED FOR SWELLING. TAKE POTASSIUM WITH EACH DOSE 12/11/2016 04/09/2017 Inactive cyanocobalamin (vit B-12) 1,000 mcg/mL injection solution RxNorm: 471730 1 Milliliter(s) Inj 11/14/2016 11/14/2016 Inactive simvastatin 20 mg tablet RxNorm: 290264 TAKE ONE TABLET BY MOUTH EVERY NIGHT AT BEDTIME 10/23/2016 04/15/2017 Inactive Tenex 1 mg tablet RxNorm: 589958 TAKE ONE TABLET BY MOUTH DAILY 10/16/2016 11/14/2016 Inactive glipizide 10 mg tablet RxNorm: 263499 TAKE ONE TABLET BY MOUTH TWICE A DAY 09/20/2016 02/11/2017 Inactive doxycycline hyclate 100 mg capsule RxNorm: 2188014 1 Capsule(s) PO BID 09/12/2016 09/18/2016 Inactive doxycycline hyclate 100 mg capsule RxNorm: 1730337 1 Capsule(s) PO BID 09/12/2016 09/11/2016 Inactive Phenergan with Codeine Syrup RxNorm: 5-10 Milliliter(s) PO Q6 PRN 09/07/2016 No Stop Date Active prednisone 20 mg tablet RxNorm: 197757 1 Tablet(s) PO BID 09/0709/11/2016 Inactive Kenalog 40 mg/mL suspension for injection RxNorm: 6996098 1 Milliliter(s) Inj 09/07/2016 09/07/2016 Inactive Tessalon Perles 100 mg capsule RxNorm: 119127 1 Capsule(s) PO TID PRN 09/01/2016 09/20/2016 Inactive Zyrtec 10 mg capsule RxNorm: 6663989 1 Capsule(s) PO daily 01/28/2018 Inactive Flonase Allergy Relief 50 mcg/actuation nasal spray, suspension RxNorm: 9831004 1 Perley NASAL BID 08/29/20162016 Inactive cyanocobalamin (vit B-12) 1,000 mcg/mL injection solution RxNorm: 996398 1 Milliliter(s) Inj 08/29/2016 08/29/2016 Inactive metformin ER 500 mg tablet,extended release 24 hr RxNorm: 845898 Tablet(s) TAKE TWO TABLETS BY MOUTH TWICE A DAY 08/28/2016 02/23/2017 Inactive Lopressor 100 mg tablet RxNorm: 604880 TAKE ONE TABLET BY MOUTH DAILY 06/27/2016 04/15/2017 Inactive cetirizine 10 mg tablet RxNorm: 6514912 1 Tablet(s) PO daily 07/11/2016 Inactive Flonase Allergy Relief 50 mcg/actuation nasal spray, suspension RxNorm: 2996742 1 Perley NASAL BID 06/12/20162016 Inactive cyanocobalamin (vit B-12) 1,000 mcg/mL injection solution RxNorm: 712406 Milliliter(s) Inj 06/12/2016 06/12/2016 Inactive spironolactone 25 mg tablet RxNorm: 407496 TAKE ONE TABLET BY MOUTH TWICE A DAY 06/06/2016 03/02/2017 Inactive Request already responded to by other means (e.g. phone or fax) spironolactone 25 mg tablet RxNorm: 437129 Tablet(s) TAKE ONE TABLET BY MOUTH TWICE A DAY 05/29/2016 06/05/2016 Inactive ceftriaxone 500 mg solution for injection RxNorm: 5749233 2 Milliliter(s) Inj 05/04/2016 05/04/2016 Inactive cyanocobalamin (vit B-12) 1,000 mcg/mL injection solution RxNorm: 795544 Milliliter(s) Inj 05/04/2016 05/04/2016 Inactive Cipro 500 mg tablet RxNorm: 619647 1 Tablet(s) PO BID 201505/10/2016 Inactive OneTouch Ultra Test strips RxNorm: TEST DAILY 04/24/2016 04/18/2017 Inactive Byetta 10 mcg/dose(250 mcg/mL)2.4 mL subcutaneous pen injector RxNorm: 035481 INJECT 10 MCG UNDER THE SKIN TWO TIMES A DAY ( START AFTER 5 MCG DOSE IS COMPLETE ) 04/18/2016 03/13/2017 Inactive Lasix 20 mg tablet RxNorm: 816455 TAKE ONE TABLET BY MOUTH EVERY DAY NEEDED FOR SWELLING. TAKE POTASSIUM WITH EACH DOSE 04/07/2016 09/03/2016 Inactive potassium chloride ER 20 mEq tablet,extended release(part/ cryst) RxNorm: 3511370 TAKE ONE TABLET BY MOUTH DAILY WHEN YOU TAKE LASIX (FUROSEMIDE) 04/07/2016 09/03/2016 Inactive triamcinolone acetonide 0.5 % topical cream RxNorm: 3601180 1 Application TOP BID to lesions on buttock 03/30/20162015 Inactive metformin ER 500 mg tablet,extended release 24 hr RxNorm: 709175 TAKE TWO TABLETS BY MOUTH TWICE A DAY 03/23/20162016 Inactive cyanocobalamin (vit B-12) 1,000 mcg/mL injection solution RxNorm: 962572 Milliliter(s) Inj 03/17/2016 03/17/2016 Inactive glipizide 10 mg tablet RxNorm: 113167 TAKE ONE TABLET BY MOUTH TWICE A DAY 03/17/2016 04/02/2018 Inactive Request already responded to by other means (e.g. phone or fax) glipizide 10 mg tablet RxNorm: 865445 Tablet(s) TAKE ONE TABLET BY MOUTH TWICE A DAY 03/13/2016 03/16/2016 Inactive Tricor 145 mg tablet RxNorm: 424349 TAKE ONE TABLET BY MOUTH ONCE A DAY 02/18/2016 02/11/2017 Inactive Request already responded to by other means (e.g. phone or fax) amlodipine 5 mg tablet RxNorm: 205672 TAKE ONE TABLET BY MOUTH TWICE A DAY 02/18/2016 05/06/2018 Inactive Request already responded to by other means (e.g. phone or fax) cyanocobalamin (vit B-12) 1,000 mcg/mL injection solution RxNorm: 706161 1 Milliliter(s) Inj 02/15/2016 02/15/2016 Inactive amlodipine 5 mg tablet RxNorm: 764286 Tablet(s) TAKE ONE TABLET BY MOUTH TWICE A DAY 02/14/2016 02/17/2016 Inactive Tricor 145 mg tablet RxNorm: 206311 1 Tablet(s) PO daily TAKE ONE TABLET BY MOUTH ONCE A DAY 02/14/2016 02/17/2016 Inactive Synthroid 50 mcg tablet RxNorm: 495506 TAKE ONE TABLET BY MOUTH EVERY DAY. 01/31/2016 08/27/2016 Inactive hydrocodone 5 mg-acetaminophen 325 mg tablet RxNorm: 137080 1-2 Tablet(s) PO Q4 PRN as needed pain 01/28/2016 11/19/2017 Inactive cyanocobalamin (vit B-12) 1,000 mcg/mL injection solution RxNorm: 120343 Milliliter(s) Inj 01/19/2016 01/19/2016 Inactive metformin ER 500 mg tablet,extended release 24 hr RxNorm: 979173 TAKE TWO TABLETS BY MOUTH TWICE A DAY 01/18/20162015 Inactive cyanocobalamin (vit B-12) 1,000 mcg/mL injection solution RxNorm: 289926 1 Milliliter(s) Inj 12/07/2015 12/07/2015 Inactive metformin ER 500 mg tablet,extended release 24 hr RxNorm: 686468 TAKE TWO TABLETS BY MOUTH TWICE A DAY 10/18/20152015 Inactive simvastatin 20 mg tablet RxNorm: 066416 1 Tablet(s) PO QHS TAKE ONE TABLET BY MOUTH AT BEDTIME 10/08/2015 10/01/2016 Inactive Tenex 1 mg tablet RxNorm: 770054 TAKE ONE TABLET BY MOUTH DAILY 10/04/2015 09/27/2016 Inactive Lopressor 100 mg tablet RxNorm: 131850 TAKE ONE TABLET BY MOUTH DAILY 09/20/2015 06/15/2016 Inactive Diflucan 150 mg tablet RxNorm: 894973 1 Tablet(s) PO daily 02/201609/12/2015 Inactive cyanocobalamin (vit B-12) 1,000 mcg/mL injection kit RxNorm: 168453 kit Inj 09/06/2015 09/06/2015 Inactive gentamicin 0.3 % eye drops RxNorm: 641110 2 Drop(s) OPH QID 02/201609/12/2015 Inactive ceftriaxone 500 mg solution for injection RxNorm: 4583581 Inj 09/06/2015 09/06/2015 Inactive Keflex 500 mg capsule RxNorm: 349005 1 Capsule(s) PO TID 201509/12/2015 Inactive hydrocodone 5 mg-acetaminophen 325 mg tablet RxNorm: 294286 1-2 Tablet(s) PO Q4 PRN as needed pain 08/09/2015 01/27/2016 Inactive Lortab 5 mg-500 mg tablet RxNorm: 183301 1-2 Tablet(s) PO Q4 PRN as needed pain 08/03/2015 08/08/2015 Inactive Diflucan 150 mg tablet RxNorm: 612618 1 Tablet(s) PO daily 07/16/2015 Inactive Lasix 20 mg tablet RxNorm: 062381 TAKE ONE TABLET BY MOUTH EVERY DAY NEEDED FOR SWELLING. TAKE POTASSIUM WITH EACH DOSE 07/13/2015 01/08/2016 Inactive spironolactone 25 mg tablet RxNorm: 479092 TAKE ONE TABLET BY MOUTH TWICE A DAY 07/13/2015 05/07/2016 Inactive potassium chloride ER 20 mEq tablet,extended release(part/ cryst) RxNorm: 023650 TAKE ONE TABLET BY MOUTH DAILY WHEN YOU TAKE LASIX (FUROSEMIDE) 07/13/2015 01/08/2016 Inactive Tessalon Perles 100 mg capsule RxNorm: 089121 1 Capsule(s) PO TID PRN 07/05/2015 08/31/2016 Inactive Keflex 500 mg capsule RxNorm: 414777 1 Capsule(s) PO TID 201407/14/2015 Inactive Kenalog 40 mg/mL suspension for injection RxNorm: 9671580 Milliliter(s) Inj 07/05/2015 07/05/2015 Inactive ceftriaxone 500 mg solution for injection RxNorm: 8297026 Inj 07/05/2015 07/05/2015 Inactive cyanocobalamin (vit B-12) 1,000 mcg/mL injection solution RxNorm: 232114 Milliliter(s) Inj 06/28/2015 06/28/2015 Inactive Synthroid 50 mcg tablet RxNorm: 087792 TAKE ONE TABLET BY MOUTH EVERY DAY. 06/21/2015 11/17/2015 Inactive metformin ER 500 mg tablet,extended release 24 hr RxNorm: 659147 TAKE TWO TABLETS BY MOUTH TWICE A DAY 06/14/20152015 Inactive glipizide 10 mg tablet RxNorm: 140655 TAKE ONE TABLET BY MOUTH TWICE A DAY 05/31/2015 02/24/2016 Inactive cyanocobalamin (vit B-12) 1,000 mcg/mL injection solution RxNorm: 593999 Milliliter(s) Inj 05/13/2015 05/13/2015 Inactive Tricor 145 mg tablet RxNorm: 668924 1 Tablet(s) PO daily TAKE ONE TABLET BY MOUTH ONCE A DAY 05/07/2015 05/06/2015 Inactive Tricor 145 mg tablet RxNorm: 520502 1 Tablet(s) PO daily TAKE ONE TABLET BY MOUTH ONCE A DAY 05/07/2015 01/31/2016 Inactive Tricor 145 mg tablet RxNorm: 782652 TAKE ONE TABLET BY MOUTH ONCE A DAY 05/06/2015 05/06/2015 Inactive Byetta 10 mcg/dose(250 mcg/mL)2.4 mL subcutaneous pen injector RxNorm: 622412 Microgram(s) SQ 10mcg twice daily ( start after 5mcg dose is complete) 04/01/2015 03/25/2016 Inactive Byetta 5 mcg/dose (250 mcg/mL)1.2 mL subcutaneous pen injector RxNorm: 341967 Microgram(s) SQ 5mcg twice daily x 1 month 03/04/2015 04/02/2015 Inactive Byetta 10 mcg/dose(250 mcg/mL)2.4 mL subcutaneous pen injector RxNorm: 117054 Microgram(s) SQ 10mcg twice daily ( start after 5mcg dose is complete) 03/04/2015 03/31/2015 Inactive Byetta 5 mcg/dose (250 mcg/mL)1.2 mL subcutaneous pen injector RxNorm: 029980 Microgram(s) SQ 5mcg twice daily x 1 month 03/04/2015 03/03/2015 Inactive Byetta 10 mcg/dose(250 mcg/mL)2.4 mL subcutaneous pen injector RxNorm: 001195 Microgram(s) SQ 10mcg twice daily ( start after 5mcg dose is complete) 03/04/2015 03/03/2015 Inactive cyanocobalamin (vit B-12) 1,000 mcg/mL injection solution RxNorm: 616044 Milliliter(s) Inj 02/23/2015 02/23/2015 Inactive cyanocobalamin (vit B-12) 1,000 mcg/mL injection solution RxNorm: 588439 Milliliter(s) Inj 01/08/2015 01/08/2015 Inactive simvastatin 20 mg tablet RxNorm: 844454 TAKE ONE TABLET BY MOUTH AT BEDTIME 01/07/2015 10/03/2015 Inactive Lortab 5 mg-500 mg tablet RxNorm: 123315 1-2 Tablet(s) PO Q4 PRN as needed q 4- 6hrs prn pain 12/15/2014 08/02/2015 Inactive Lortab 5 mg-500 mg tablet RxNorm: 524062 1-2 Tablet(s) PO Q4 PRN as needed q 4- 6hrs prn pain 12/15/2014 08/02/2015 Inactive amlodipine 5 mg tablet RxNorm: 068896 TAKE ONE TABLET BY MOUTH TWICE A DAY 12/14/2014 12/13/2014 Inactive amlodipine 5 mg tablet RxNorm: 284207 TAKE ONE TABLET BY MOUTH TWICE A DAY 12/14/2014 03/13/2015 Inactive cyanocobalamin (vit B-12) 1,000 mcg/mL injection solution RxNorm: 729891 Milliliter(s) Inj 12/08/2014 12/08/2014 Inactive Synthroid 50 mcg tablet RxNorm: 274551 TAKE ONE TABLET BY MOUTH EVERY DAY. 10/29/2014 04/26/2015 Inactive Lasix 20 mg tablet RxNorm: 785892 Tablet(s) TAKE ONE TABLET BY MOUTH EVERY DAY NEEDED FOR SWELLING. TAKE POTASSIUM WITH EACH DOSE 201405/25/2015 Inactive potassium chloride ER 20 mEq tablet,extended release(part/ cryst) RxNorm: 601162 Tablet(s) TAKE ONE TABLET BY MOUTH EVERY DAY WHEN YOU TAKE LASIX (FUROSEMIDE) 10/28/2014 05/25/2015 Inactive cyanocobalamin (vit B-12) 1,000 mcg/mL injection solution RxNorm: 249613 Milliliter(s) Inj 10/26/2014 10/26/2014 Inactive OneTouch Ultra Test strips RxNorm: TEST TWO TIMES A DAY 201405/10/2028 Active OneTouch Ultra Test strips RxNorm: 1 Miscellaneous BID 201410/21/2014 Inactive dx: 250.02 Victoza 2-J Luis 0.6 mg/0.1 mL (18 mg/3 mL) subcutaneous pen injector RxNorm: 718701 1.8 Milligram(s) SQ daily 09/24/201402/22 Inactive cyanocobalamin (vit B-12) 1,000 mcg/mL injection solution RxNorm: 578579 Milliliter(s) Inj 09/24/2014 09/24/2014 Inactive Tenex 1 mg tablet RxNorm: 567064 1 Tablet(s) PO daily TAKE ONE TABLET BY MOUTH EVERY DAY 09/24/2014 10/03/2015 Inactive Lopressor 100 mg tablet RxNorm: 892180 TAKE ONE TABLET BY MOUTH EVERY DAY 09/14/2014 06/10/2015 Inactive Lopressor 100 mg tablet RxNorm: 116275 1 Tablet(s) PO daily TAKE ONE TABLET BY MOUTH EVERY DAY 09/14/2014 09/13/2014 Inactive cyanocobalamin (vit B-12) 1,000 mcg/mL injection solution RxNorm: 608335 Milliliter(s) Inj 08/24/2014 08/24/2014 Inactive [SAVINGS FOR UNINSURED PATIENTS - - BIN:[id number], PCN: [id number], Group: [id number], ID# [id number], Process claim through [employer], for questions: . THIS IS NOT INSURANCE.] Victoza 2-J Luis 0.6 mg/0.1 mL (18 mg/3 mL) subcutaneous pen injector RxNorm: 377029 1.2 Milligram(s) SQ daily 08/05/201409/23 Inactive glipizide 10 mg tablet RxNorm: 029342 TAKE ONE TABLET BY MOUTH TWICE A DAY 07/28/2014 05/23/2015 Inactive Tenex 1 mg tablet RxNorm: 190193 TAKE ONE TABLET BY MOUTH EVERY DAY 07/02/2014 07/01/2014 Inactive Tenex 1 mg tablet RxNorm: 346818 TAKE ONE TABLET BY MOUTH EVERY DAY 07/02/2014 09/23/2014 Inactive spironolactone 25 mg tablet RxNorm: 325968 TAKE ONE TABLET BY MOUTH TWICE A DAY 07/02/2014 04/27/2015 Inactive spironolactone 25 mg tablet RxNorm: 407730 Tablet(s) PO TAKE ONE TABLET BY MOUTH TWICE A DAY 06/30/2014 07/01/2014 Inactive Tenex 1 mg tablet RxNorm: 790888 Tablet(s) PO TAKE ONE TABLET BY MOUTH EVERY DAY 06/30/2014 07/01/2014 Inactive Lortab 5 mg-500 mg tablet RxNorm: 271221 1-2 Tablet(s) PO Q4 PRN as needed q 4- 6hrs prn pain 06/22/2014 12/14/2014 Inactive metformin ER 500 mg tablet,extended release 24 hr RxNorm: 478375 Tablet(s) PO TAKE TWO TABLETS BY MOUTH TWICE A DAY 06/05/2014 06/13/2015 Inactive [SAVINGS FOR UNINSURED PATIENTS -- BIN:[id number], PCN: [id number], Group: [id number], ID# [id number], Process claim through [employer], for questions: . THIS IS NOT INSURANCE.] cyanocobalamin (vit B-12) 1,000 mcg/mL injection solution RxNorm: 096974 1 Milliliter(s) Inj monthly 06/01/201406/01 Inactive Kenalog 40 mg/mL suspension for injection RxNorm: 4795004 1 Milliliter(s) Inj 05/11/2014 05/11/2014 Inactive cyanocobalamin (vit B-12) 1,000 mcg/mL injection kit RxNorm: 210424 Milliliter(s) Inj 04/27/2014 04/27/2014 Inactive amlodipine 5 mg tablet RxNorm: 904858 TAKE ONE TABLET BY MOUTH TWICE A DAY 04/02/2014 07/30/2014 Inactive cyanocobalamin (vit B-12) 1,000 mcg/mL injection kit RxNorm: 444518 1 Milliliter(s ) Inj 03/24/2014 03/24/2014 Inactive [SAVINGS FOR UNINSURED PATIENTS -- BIN:[id number] , PCN: [id number], Group: [id number], ID# [id number], Process claim through [employer], for questions: . THIS IS NOT INSURANCE.] cyanocobalamin (vit B-12) 1,000 mcg/mL injection solution RxNorm: 875492 1 Milliliter(s) Inj 03/24/2014 03/24/2014 Inactive Synthroid 50 mcg tablet RxNorm: 965477 TAKE ONE TABLET BY MOUTH EVERY DAY. 03/01/2014 09/26/2014 Inactive Lasix 20 mg tablet RxNorm: 978710 TAKE ONE TABLET BY MOUTH EVERY DAY NEEDED FOR SWELLING. TAKE POTASSIUM WITH EACH DOSE 03/01/2014 09/26/2014 Inactive potassium chloride ER 20 mEq tablet,extended release(part/ cryst) RxNorm: 486845 TAKE ONE TABLET BY MOUTH EVERY DAY WHEN YOU TAKE LASIX (FUROSEMIDE) 03/01/2014 09/26/2014 Inactive cyanocobalamin (vit B-12) 1,000 mcg/mL injection solution RxNorm: 846492 1 Milliliter(s) Inj 02/24/2014 02/24/2014 Inactive Tricor 145 mg tablet RxNorm: 708664 TAKE ONE TABLET BY MOUTH EVERY DAY 02/16/2014 02/15/2014 Inactive Victoza 2-J Luis 0.6 mg/0.1 mL (18 mg/3 mL) subcutaneous pen injector RxNorm: 156237 1.2 Milligram(s) SQ daily 02/16/201408/04 Inactive Tricor 145 mg tablet RxNorm: 702998 TAKE ONE TABLET BY MOUTH EVERY DAY 02/16/2014 06/15/2014 Inactive Synthroid 50 mcg tablet RxNorm: 030039 TAKE ONE TABLET BY MOUTH EVERY DAY. 02/02/2014 03/03/2014 Inactive Synthroid 50 mcg tablet RxNorm: 583507 TAKE ONE TABLET BY MOUTH EVERY DAY. 02/02/2014 02/01/2014 Inactive simvastatin 20 mg tablet RxNorm: 681071 TAKE ONE TABLET BY MOUTH AT BEDTIME 01/12/2014 01/06/2015 Inactive cyanocobalamin (vit B-12) 1,000 mcg/mL injection solution RxNorm: 802749 Milliliter(s) Inj 01/09/2014 01/09/2014 Inactive Lortab 5 mg-500 mg tablet RxNorm: 853162 1-2 Tablet(s) PO Q4 PRN q 4-6hrs prn pain 12/23/2013 No Stop Date Active Lasix 20 mg tablet RxNorm: 050765 Tablet(s) PO TAKE ONE TABLET BY MOUTH EVERY DAY NEEDED FOR SWELLING. TAKE POTASSIUM WITH EACH DOSE 12/201302/28/2014 Inactive potassium chloride ER 20 mEq tablet,extended release(part/ cryst) RxNorm: 717577 Tablet(s) PO TAKE ONE TABLET BY MOUTH EVERY DAY WHEN YOU TAKE LASIX (FUROSEMIDE ) 12/02/2013 02/28/2014 Inactive Lomotil 2.5 mg-0.025 mg tablet RxNorm: 7475344 Tablet(s) PO TAKE ONE TABLET BY MOUTH EVERY 8 HOURS NEEDED 11/27/2013 01/28/2018 Inactive (Appended: Controlled substance eRx refill - RxReferenceNumber: [id number]) Lomotil 2.5 mg-0.025 mg tablet RxNorm: 4322213 1 Tablet(s) PO Q8 PRN 11/27/2013 05/24/2014 Inactive cyanocobalamin (vit B-12) 1,000 mcg/mL injection solution RxNorm: 884563 1 Milliliter(s) Inj 11/27/2013 11/27/2013 Inactive Vitamin B-12 1,000 mcg/mL injection solution RxNorm: 306265 1 Milliliter(s) Inj monthly 11/24/2013 11/18/2014 Inactive ok to give multidose if available Synthroid 50 mcg tablet RxNorm: 129400 Tablet(s) PO TAKE ONE TABLET BY MOUTH EVERY DAY. 10/31/2013 02/01/2014 Inactive simvastatin 20 mg tablet RxNorm: 459452 Tablet(s) PO TAKE ONE TABLET BY MOUTH AT BEDTIME 10/10/2013 01/11/2014 Inactive Vitamin B-12 1,000 mcg/mL injection solution RxNorm: 732499 1 Milliliter(s) Inj monthly 09/30/2013 09/29/2013 Inactive ok to give multidose if available Vitamin B-12 1,000 mcg/mL injection solution RxNorm: 024161 1 Milliliter(s) Inj monthly 09/30/2013 11/23/2013 Inactive ok to give multidose if available Vitamin B-12 1,000 mcg/mL injection solution RxNorm: 311721 1 Milliliter(s) Inj 09/18/2013 09/18/2013 Inactive Lopressor 100 mg tablet RxNorm: 608660 Tablet(s) PO TAKE ONE TABLET BY MOUTH EVERY DAY 09/15/2013 09/13/2014 Inactive Vitamin B-12 1,000 mcg/mL injection solution RxNorm: 043438 1 Milliliter(s) Inj 08/22/2013 08/22/2013 Inactive glipizide 10 mg tablet RxNorm: 560174 Tablet(s) PO TAKE ONE TABLET BY MOUTH TWICE A DAY 08/15/2013 07/27/2014 Inactive Tenex 1 mg tablet RxNorm: 575100 Tablet(s) PO TAKE ONE TABLET BY MOUTH EVERY DAY 08/05/2013 06/29/2014 Inactive potassium chloride ER 20 mEq tablet,extended release(part/ cryst) RxNorm: 907897 Tablet(s) PO TAKE ONE TABLET BY MOUTH EVERY DAY WHEN YOU TAKE LASIX (FUROSEMIDE ) 07/31/2013 12/01/2013 Inactive spironolactone 25 mg tablet RxNorm: 305599 Tablet(s) PO TAKE ONE TABLET BY MOUTH TWICE A DAY 07/31/2013 06/29/2014 Inactive Lasix 20 mg tablet RxNorm: 534001 Tablet(s) PO TAKE ONE TABLET BY MOUTH EVERY DAY NEEDED FOR SWELLING. TAKE POTASSIUM WITH EACH DOSE 08/201312/01/2013 Inactive Vitamin B-12 1,000 mcg/mL injection solution RxNorm: 299040 Milliliter(s) Inj 07/28/2013 07/28/2013 Inactive Synthroid 50 mcg tablet RxNorm: 568195 Tablet(s) PO TAKE ONE TABLET BY MOUTH EVERY DAY. PATIENT DUE FOR TSH LEVEL LAB 06/30/2013 06/29/2013 Inactive Synthroid 50 mcg tablet RxNorm: 670146 Tablet(s) PO TAKE ONE TABLET BY MOUTH EVERY DAY. PATIENT DUE FOR TSH LEVEL LAB 06/30/2013 10/30/2013 Inactive potassium chloride ER 20 mEq tablet,extended release(part/ cryst) RxNorm: 051591 Tablet(s) PO TAKE ONE TABLET BY MOUTH EVERY DAY WHEN YOU TAKE LASIX (FUROSEMIDE ) 06/23/2013 07/30/2013 Inactive Lasix 20 mg tablet RxNorm: 752280 Tablet(s) PO TAKE ONE TABLET BY MOUTH EVERY DAY NEEDED FOR SWELLING. TAKE POTASSIUM WITH EACH DOSE 07/30/2013 Inactive amlodipine 5 mg tablet RxNorm: 758144 Tablet(s) PO TAKE ONE TABLET BY MOUTH TWICE A DAY 06/17/2013 04/01/2014 Inactive metformin ER 500 mg tablet,extended release 24 hr RxNorm: 572511 Tablet(s) PO TAKE TWO TABLETS BY MOUTH TWICE A DAY 05/26/2013 06/04/2014 Inactive metformin ER 500 mg tablet,extended release 24 hr RxNorm: 976648 Tablet(s) PO TAKE TWO TABLETS BY MOUTH TWICE A DAY 05/26/2013 05/25/2013 Inactive Vitamin B-12 1,000 mcg/mL injection solution RxNorm: 736584 1 Milliliter(s) Inj 05/21/2013 05/21/2013 Inactive Vitamin B-12 1,000 mcg/mL Injection RxNorm: 361778 Milliliter(s) Inj 04/23/2013 04/23/2013 Inactive Influenza Virus Vaccine 0.5 mL RxNorm: IM 04/23/2013 04/23/2013 Inactive Synthroid 50 mcg tablet RxNorm: 919273 Tablet(s) PO TAKE ONE TABLET BY MOUTH EVERY DAY. PATIENT DUE FOR TSH LEVEL LAB 04/17/2013 06/29/2013 Inactive Lasix 20 mg tablet RxNorm: 346753 Tablet(s) PO TAKE ONE TABLET BY MOUTH EVERY DAY NEEDED FOR SWELLING. TAKE POTASSIUM WITH EACH DOSE 06/22/2013 Inactive potassium chloride ER 20 mEq tablet,extended release(part/ cryst) RxNorm: 4985034 Tablet(s) PO TAKE ONE TABLET BY MOUTH EVERY DAY WHEN YOU TAKE LASIX (FUROSEMIDE ) 04/17/2013 06/22/2013 Inactive simvastatin 20 mg tablet RxNorm: 951969 Tablet(s) PO TAKE ONE TABLET BY MOUTH AT BEDTIME 04/10/2013 10/09/2013 Inactive Vitamin B-12 1,000 mcg/mL Injection RxNorm: 256422 1 Milliliter(s) Inj 03/24/2013 03/24/2013 Inactive Lopressor 100 mg tablet RxNorm: 964855 Tablet(s) PO TAKE ONE TABLET BY MOUTH EVERY DAY 03/18/2013 09/14/2013 Inactive cyanocobalamin (vitamin B-12) 1,000 mcg/mL Injection RxNorm: 378226 Milliliter(s) Inj 02/20/2013 02/20/2013 Inactive Tricor 145 mg tablet RxNorm: 696547 Tablet(s) PO TAKE ONE TABLET BY MOUTH EVERY DAY 02/14/2013 02/15/2014 Inactive Vitamin B-12 1,000 mcg/mL Injection RxNorm: 320351 1 Milliliter(s) Inj 01/22/2013 01/22/2013 Inactive potassium chloride ER 20 mEq tablet,extended release(part/ cryst) RxNorm: 8240479 1 Tablet(s) PO QDAY PRN take when taking prn lasix 201204/16/2013 Inactive Lasix 20 mg tablet RxNorm: 970487 1 Tablet(s) PO QDAY PRN daily prn swelling - to take kcl with lasix 01/22/20132012 Inactive cyanocobalamin (vitamin B-12) 1,000 mcg/mL Injection RxNorm: 431517 Milliliter(s) Inj 12/19/2012 12/19/2012 Inactive cyanocobalamin (vitamin B-12) 1,000 mcg/mL Injection RxNorm: 187669 Milliliter(s) Inj 11/20/2012 11/20/2012 Inactive Diflucan 150 mg tablet RxNorm: 993797 1 Tablet(s) PO daily 11/21/2012 Inactive Synthroid 50 mcg tablet RxNorm: 467527 Tablet(s) PO TAKE ONE TABLET BY MOUTH EVERY DAY. PATIENT DUE FOR TSH LEVEL LAB 11/18/2012 04/16/2013 Inactive Keflex 500 mg capsule RxNorm: 304471 1 Capsule(s) PO TID 201211/19/2012 Inactive Keflex 500 mg capsule RxNorm: 197380 1 Capsule(s) PO TID 201211/12/2012 Inactive Byetta 10 mcg/0.04 mL per dose Sub-Q Pen Injector RxNorm: 230869 Pen Injector SQ DIAL AND INJECT SUBCUTANEOUSLY 10 MCG TWICE DAILY WITHIN 60 MINUTES BEFORE MORNING AND EVENING MEALS. DO NOT ADMINISTER AFTER A MEAL. 04/03/2014 Inactive cyanocobalamin (vitamin B-12) 1,000 mcg/mL Injection RxNorm: 871197 1 Milliliter(s ) Inj 10/23/2012 10/23/2012 Inactive Lortab 5 mg-500 mg tablet RxNorm: 803362 1-2 Tablet(s) PO Q4 PRN q 4-6hrs prn pain 10/02/2012 12/22/2013 Inactive cyanocobalamin (vitamin B-12) 1,000 mcg/mL Injection RxNorm: 866016 Milliliter(s) Inj 09/16/2012 09/16/2012 Inactive Vitamin B-12 1,000 mcg/mL Injection RxNorm: 037895 1 Milliliter(s) Inj 08/15/2012 08/15/2012 Inactive glipizide 10 mg tablet RxNorm: 715007 Tablet(s) PO TAKE ONE TABLET BY MOUTH TWICE A DAY 08/12/2012 08/14/2013 Inactive Tenex 1 mg tablet RxNorm: 937841 Tablet(s) PO TAKE ONE TABLET BY MOUTH EVERY DAY 08/12/2012 08/04/2013 Inactive Kenalog 40 mg/mL Susp for Injection RxNorm: 3832863 1 Milliliter(s) Inj 08/06/2012 01/22/2013 Inactive spironolactone 25 mg tablet RxNorm: 500416 Tablet(s) PO TAKE ONE TABLET BY MOUTH TWICE A DAY 07/29/2012 07/30/2013 Inactive cefdinir 300 mg capsule RxNorm: 831520 1 Capsule(s) PO BID 08/01/2012 Inactive cefdinir 300 mg capsule RxNorm: 664836 1 Capsule(s) PO BID 07/25/2012 Inactive Vitamin B-12 1,000 mcg/mL Injection RxNorm: 446876 1 Milliliter(s) Inj 07/19/2012 07/19/2012 Inactive simvastatin 20 mg tablet RxNorm: 806090 Tablet(s) PO TAKE ONE TABLET BY MOUTH AT BEDTIME 07/08/2012 04/09/2013 Inactive simvastatin 20 mg tablet RxNorm: 628970 Tablet(s) PO TAKE ONE TABLET BY MOUTH AT BEDTIME 07/08/2012 10/07/2015 Inactive Synthroid 50 mcg tablet RxNorm: 642455 1 Tablet(s) PO daily 12/201110/31/2012 Inactive Please advise patient due for TSH level. amlodipine 5 mg tablet RxNorm: 067256 1 Tablet(s) PO BID 201112/15/2012 Inactive amlodipine 5 mg tablet RxNorm: 455595 1 Tablet(s) PO BID 201106/18/2012 Inactive Vitamin B-12 1,000 mcg/mL Injection RxNorm: 495720 Milliliter(s) Inj 06/19/2012 06/19/2012 Inactive Lopressor 100 mg tablet RxNorm: 430984 Tablet(s) PO 06/17/2012 03/17/2013 Inactive TAKE ONE TABLET BY MOUTH EVERY DAY Vitamin B-12 1,000 mcg/mL Injection RxNorm: 484624 Milliliter(s) Inj 05/22/2012 05/22/2012 Inactive Synthroid 50 mcg tablet RxNorm: 734062 1 Tablet(s) PO daily 06/11/2012 Inactive Please advise patient due for TSH level. Diflucan 150 mg tablet RxNorm: 606774 1 Tablet(s) PO daily 11/18/2012 Inactive metformin ER 500 mg tablet,extended release 24 hr RxNorm: 681730 2 Tablet(s) PO BID 04/25/2012 05/19/2013 Inactive Vitamin B-12 1,000 mcg/mL Injection RxNorm: 712530 Milliliter(s) Inj 04/22/2012 04/22/2012 Inactive Vitamin B-12 1,000 mcg/mL Injection RxNorm: 906317 Milliliter(s) Inj 03/19/2012 03/19/2012 Inactive Vitamin B-12 1,000 mcg/mL Injection RxNorm: 811326 Milliliter(s) Inj 02/15/2012 02/15/2012 Inactive Tricor 145 mg tablet RxNorm: 540309 1 Tablet(s) PO daily 201102/13/2013 Inactive Vitamin B-12 1,000 mcg/mL Injection RxNorm: 773091 Milliliter(s) Inj 01/18/2012 01/18/2012 Inactive Kenalog 40 mg/mL Susp for Injection RxNorm: 5062533 1 Milliliter(s) Inj 12/28/2011 12/28/2011 Inactive Vitamin B-12 1,000 mcg/mL Injection RxNorm: 259051 Milliliter(s) Inj 12/20/2011 12/20/2011 Inactive omeprazole 20 mg Cap, delayed release RxNorm: 333574 1 Capsule(s) PO daily 12/07/2011 11/30/2012 Inactive may take bid if nec cyanocobalamin (vitamin B-12) 1,000 mcg/mL Injection RxNorm: 585605 1 Milliliter(s ) Inj 11/07/2011 11/07/2011 Inactive cyanocobalamin (vitamin B-12) 1,000 mcg/mL Injection RxNorm: 528451 1 Milliliter(s ) Inj 10/03/2011 10/03/2011 Inactive Synthroid 50 mcg tablet RxNorm: 201456 1 Tablet(s) PO daily 03/08/2012 Inactive Byetta 10 mcg/0.04 mL per dose Sub-Q Pen Injector RxNorm: 497583 10 Microgram(s) SQ BID 08/29/2011 09/21/2012 Inactive metformin ER 500 mg tablet,extended release 24 hr RxNorm: 623144 2 Tablet(s) PO BID 08/15/2011 02/10/2012 Inactive cyanocobalamin (vitamin B-12) 1,000 mcg/mL Injection RxNorm: 344666 1 Milliliter(s ) Inj 07/28/2011 07/28/2011 Inactive NovoFine 30 Needle RxNorm: 1 Miscellaneous BID 07/28/2011 03/18/2013 Inactive OneTouch Ultra Test strips RxNorm: 1 Miscellaneous BID 201003/18/2013 Inactive guanfacine 1 mg Tab RxNorm: 289763 1 Tablet(s) PO daily 201007/10/2012 Inactive glipizide 10 mg tablet RxNorm: 996837 1 Tablet(s) PO BID 201008/09/2012 Inactive Tenex 1 mg tablet RxNorm: 781166 1 Tablet(s) PO daily 201008/09/2012 Inactive lisinopril 20 mg tablet RxNorm: 660361 1 Tablet(s) PO daily pt 07/04/2011 04/21/2012 Inactive pt may have #90 with year if insurance pays spironolactone 25 mg tablet RxNorm: 641188 1 Tablet(s) PO BID 07/03/2011 07/26/2012 Inactive simvastatin 20 mg Tab RxNorm: 512057 1 Tablet(s) PO QHS 201006/28/2011 Inactive cyanocobalamin (vitamin B-12) 1,000 mcg/mL Injection RxNorm: 191507 Milliliter(s) Inj 06/29/2011 06/29/2011 Inactive simvastatin 20 mg tablet RxNorm: 295795 1 Tablet(s) PO QHS 07/201006/22/2012 Inactive Lopressor 100 mg tablet RxNorm: 437628 1 Tablet(s) PO daily 06/16/2012 Inactive ketorolac 60 mg/2 mL IM RxNorm: 797828 Milliliter(s) IM 201005/23/2011 Inactive cyanocobalamin (vitamin B-12) 1,000 mcg/mL Injection RxNorm: 640107 Milliliter(s) Inj 05/23/2011 05/23/2011 Inactive Influenza Virus Vaccine 0.5 mL RxNorm: IM 04/26/2011 04/26/2011 Inactive Vitamin B-12 1,000 mcg/mL Injection RxNorm: 645084 Milliliter(s) Inj 04/26/2011 04/26/2011 Inactive Lomotil 2.5 mg-0.025 mg tablet RxNorm: 7166865 1 Tablet(s) PO Q8 PRN 04/26/2011 11/27/2013 Inactive hydralazine 10 mg tablet RxNorm: 056494 1 Tablet(s) PO TID No Start Date Active amlodipine 5 mg tablet RxNorm: 572356 1 Tablet(s) PO daily No Start Date Active metoprolol succinate ER 25 mg tablet,extended release 24 hr RxNorm: 327943 1 Tablet(s) PO daily No Start Date Active aspirin 81 mg capsule,delayed release RxNorm: 811647 1 Capsule(s) PO daily No Start Date Active multivitamin tablet RxNorm: 1 Tablet(s) PO daily No Start Date Active clopidogrel 75 mg tablet RxNorm: 665065 1 Tablet(s) PO daily No Start Date Active simvastatin 20 mg tablet RxNorm: 164807 1 Tablet(s) PO daily No Start Date Active Tricor 145 mg Tab RxNorm: 125783 1 Tablet(s) PO daily No Start Date 02/07/2012 Inactive amiodarone 200 mg tablet RxNorm: 511351 1 Tablet(s) PO daily No Start Date 01/28/2018 Inactive Synthroid 50 mcg Tab RxNorm: 794747 1 Tablet(s) PO daily No Start Date 09/10/2011 Inactive atorvastatin 10 mg tablet RxNorm: 116798 1 Tablet(s) PO QHS No Start Date 08/07/2018 Inactive lisinopril 20 mg tablet RxNorm: 963282 1 Tablet(s) PO daily No Start Date 06/18/2012 Inactive Toujeo Max U-300 SoloStar 300 unit/mL (3 mL) subcutaneous insulin pen RxNorm: 8426221 10 Unit(s) SQ QHS increase by 4 units every 3 days until BS under 150 No Start Date 08/29/2018 Inactive Lortab 5 mg-500 mg tablet RxNorm: 751712 1 Tablet(s) PO Q4 PRN q 4hrs prn pain No Start Date 10/01/2012 Inactive Tenex 1 mg Tab RxNorm : 045351 1 Tablet(s) PO daily No Start Date 07/16/2011 Inactive lisinopril 40 mg tablet RxNorm: 008307 Tablet(s) PO No Start Date 05/21/2012 Inactive Voltaren 1 % Topical Gel RxNorm: 076721 TOP as directed No Start Date 11/29/2015 Inactive iron 325 mg (65 mg iron) Tab RxNorm: 547764 1 Tablet(s) PO daily No Start Date 02/22/2015 Inactive Zithromax Z-J Luis 250 mg tablet RxNorm: 460384 Tablet(s) PO UD No Start Date 01/22/2013 Inactive Byetta 10 mcg/0.04 mL per dose Sub-Q Pen Injector RxNorm: 491144 Milliliter(s) SQ BID No Start Date 08/28/2011 Inactive Mouth Sore oral RxNorm : 1399 mucous membrane No Start Date 01/28/2018 Inactive cyanocobalamin (vitamin B-12) 1,000 mcg/mL Injection RxNorm: 556885 1 Milliliter(s ) Inj month No Start Date 11/30/2015 Inactive Tessalon 200 mg capsule RxNorm: 223266 1 Capsule(s) PO TID PRN No Start Date 01/21/2013 Inactive metoprolol succinate ER 100 mg tablet,extended release 24 hr RxNorm: 709178 1 Tablet(s) PO daily No Start Date 2017 Inactive Victoza 2-J Luis 0.6 mg/0.1 mL (18 mg/3 mL) subcutaneous pen injector RxNorm: 289555 1.2 Milligram(s) SQ daily No Start Date Inactive simvastatin 20 mg Tab RxNorm: 360026 1 Tablet(s) PO QHS No Start Date 06/28/2011 Inactive spironolactone 25 mg Tab RxNorm: 822713 1 Tablet(s) PO BID No Start Date 07/02/2011 Inactive Diflucan 150 mg tablet RxNorm: 871499 1 Tablet(s) PO daily No Start Date 04/24/2012 Inactive guanfacine 1 mg Tab RxNorm: 451254 1 Tablet(s) PO daily No Start Date 07/16/2011 Inactive Ativan 1 mg Tab RxNorm : 709858 1/2-1 Tablet(s) PO Q6 PRN 1/2 - 1 tab q 6 hours if needed for anxiety No Start Date 2013 Inactive metformin ER 500 mg 24 hr Tab RxNorm: 798167 2 Tablet(s) PO BID No Start Date 08/14/2011 Inactive warfarin 2 mg tablet RxNorm: 385489 1 Tablet(s) PO daily No Start Date 01/28/2018 Inactive Lopressor 100 mg Tab RxNorm: 785811 1 Tablet(s) PO daily No Start Date 06/26/2011 Inactive glipizide 10 mg Tab RxNorm: 272051 1 Tablet(s) PO BID No Start Date 07/16/2011 Inactive KCL 10 meq RxNorm: PO as directed daily when taking lasix No Start Date 01/22/2013 Inactive lisinopril 20 mg Tab RxNorm: 919412 1 Tablet(s) PO daily No Start Date 07/03/2011 Inactive One Touch Ultra Test Strips RxNorm: 1 Miscellaneous BID No Start Date 07/27/2011 Inactive aspirin 81 mg Tab, Delayed Release RxNorm: 324568 1 Tablet(s) PO daily No Start Date 01/28/2018 Inactive omeprazole 20 mg Cap, delayed release RxNorm: 635798 1 Capsule(s) PO BID No Start Date 12/06/2011 Inactive Lasix 20 mg tablet RxNorm: 706521 Tablet(s) PO as directed daily prn swelling - to take kcl with lasix No Start Date 01/21 Inactive Vitamin D 1,000 unit Tab RxNorm: 920062 1 Tablet(s) PO daily No Start Date 01/28/2018 Inactive niacin 500 mg Tab RxNorm: 965412 1 Tablet(s) PO QHS No Start Date 04/03/2014 Inactive Medication Administered Medication Codes Instructions Start Date Status Kenalog 40 mg/mL suspension for injection RxNorm: 3057258 1Milliliter 05/29/2018 No longer Active cyanocobalamin (vit B-12) 1,000 mcg/mL injection solution RxNorm: 805096 1Milliliter 05/07/2018 No longer Active cyanocobalamin (vit B-12) 1,000 mcg/mL injection solution RxNorm: 786051 Milliliter 04/04/2018 No longer Active cyanocobalamin (vit B-12) 1,000 mcg/mL injection solution RxNorm: 782735 1Milliliter 03/04/2018 No longer Active cyanocobalamin (vit B-12) 1,000 mcg/mL injection solution RxNorm: 202667 1Milliliter 01/29/2018 No longer Active cyanocobalamin (vit B-12) 1,000 mcg/mL injection solution RxNorm: 497815 Milliliter 12/18/2017 No longer Active cyanocobalamin (vit B-12) 1,000 mcg/mL injection solution RxNorm: 712243 1Milliliter 11/20/2017 No longer Active cyanocobalamin (vit B-12) 1,000 mcg/mL injection solution RxNorm: 149465 1Milliliter 08/21/2017 No longer Active cyanocobalamin (vit B-12) 1,000 mcg/mL injection solution RxNorm: 032467 1Milliliter 07/18/2017 No longer Active cyanocobalamin (vit B-12) 1,000 mcg/mL injection solution RxNorm: 237294 1Milliliter 06/18/2017 No longer Active Kenalog 40 mg/mL suspension for injection RxNorm: 9355616 1Milliliter 06/18/2017 No longer Active cyanocobalamin (vit B-12) 1,000 mcg/mL injection solution RxNorm: 359435 1Milliliter 05/09/2017 No longer Active cyanocobalamin (vit B-12) 1,000 mcg/mL injection solution RxNorm: 997627 1Milliliter 04/04/2017 No longer Active Kenalog 40 mg/mL suspension for injection RxNorm: 1276389 1Milliliter 02/23/2017 No longer Active cyanocobalamin (vit B-12) 1,000 mcg/mL injection solution RxNorm: 423836 Milliliter 01/23/2017 No longer Active cyanocobalamin (vit B-12) 1,000 mcg/mL injection solution RxNorm: 291255 1Milliliter 11/14/2016 No longer Active Kenalog 40 mg/mL suspension for injection RxNorm: 6096485 1Milliliter 09/07/2016 No longer Active cyanocobalamin (vit B-12) 1,000 mcg/mL injection solution RxNorm: 695353 1Milliliter 08/29/2016 No longer Active cyanocobalamin (vit B-12) 1,000 mcg/mL injection solution RxNorm: 940639 Milliliter 06/12/2016 No longer Active ceftriaxone 500 mg solution for injection RxNorm: 8587671 2Milliliter 05/04/2016 No longer Active cyanocobalamin (vit B-12) 1,000 mcg/mL injection solution RxNorm: 708852 Milliliter 05/04/2016 No longer Active cyanocobalamin (vit B-12) 1,000 mcg/mL injection solution RxNorm: 884247 Milliliter 03/17/2016 No longer Active cyanocobalamin (vit B-12) 1,000 mcg/mL injection solution RxNorm: 420997 1Milliliter 02/15/2016 No longer Active cyanocobalamin (vit B-12) 1,000 mcg/mL injection solution RxNorm: 013051 Milliliter 01/19/2016 No longer Active cyanocobalamin (vit B-12) 1,000 mcg/mL injection solution RxNorm: 336627 1Milliliter 12/07/2015 No longer Active cyanocobalamin (vit B-12) 1,000 mcg/mL injection kit RxNorm : 865397 kit 09/06/2015 No longer Active ceftriaxone 500 mg solution for injection RxNorm: 3698191 09/06/2015 No longer Active ceftriaxone 500 mg solution for injection RxNorm: 3774796 07/05/2015 No longer Active Kenalog 40 mg/mL suspension for injection RxNorm: 7228356 Milliliter 07/05/2015 No longer Active cyanocobalamin (vit B-12) 1,000 mcg/mL injection solution RxNorm: 813036 Milliliter 06/28/2015 No longer Active cyanocobalamin (vit B-12) 1,000 mcg/mL injection solution RxNorm: 429268 Milliliter 05/13/2015 No longer Active cyanocobalamin (vit B-12) 1,000 mcg/mL injection solution RxNorm: 217474 Milliliter 02/23/2015 No longer Active cyanocobalamin (vit B-12) 1,000 mcg/mL injection solution RxNorm: 143787 Milliliter 01/08/2015 No longer Active cyanocobalamin (vit B-12) 1,000 mcg/mL injection solution RxNorm: 769298 Milliliter 12/08/2014 No longer Active cyanocobalamin (vit B-12) 1,000 mcg/mL injection solution RxNorm: 401502 [facility] 10/26/2014 No longer Active cyanocobalamin (vit B-12) 1,000 mcg/mL injection solution RxNorm: 163774 [facility] 09/24/2014 No longer Active cyanocobalamin (vit B-12) 1,000 mcg/mL injection solution RxNorm: 653504 [facility] 08/24/2014 No longer Active cyanocobalamin (vit B-12) 1,000 mcg/mL injection solution RxNorm: 508664 1[facility] 06/01/2014 No longer Active Kenalog 40 mg/mL suspension for injection RxNorm: [id number] 1[facility] 05/11/2014 No longer Active cyanocobalamin (vit B-12) 1,000 mcg/mL injection kit RxNorm : 095605 [facility] 04/27/2014 No longer Active cyanocobalamin (vit B-12) 1,000 mcg/mL injection kit RxNorm : 087980 1Milliliter 03/24/2014 No longer Active cyanocobalamin (vit B-12) 1,000 mcg/mL injection solution RxNorm: 734208 1Milliliter 03/24/2014 No longer Active cyanocobalamin (vit B-12) 1,000 mcg/mL injection solution RxNorm: 022566 1Milliliter 02/24/2014 No longer Active cyanocobalamin (vit B-12) 1,000 mcg/mL injection solution RxNorm: 980008 Milliliter 01/09/2014 No longer Active cyanocobalamin (vit B-12) 1,000 mcg/mL injection solution RxNorm: 013434 1Milliliter 11/27/2013 No longer Active Vitamin B-12 1,000 mcg/mL injection solution RxNorm: 505720 1Milliliter 09/18/2013 No longer Active Vitamin B-12 1,000 mcg/mL injection solution RxNorm: 814187 1Milliliter 08/22/2013 No longer Active Vitamin B-12 1,000 mcg/mL injection solution RxNorm: 526706 Milliliter 07/28/2013 No longer Active Vitamin B-12 1,000 mcg/mL injection solution RxNorm: 138114 1Milliliter 05/21/2013 No longer Active Influenza Virus Vaccine 0.5 mL RxNorm: 04/23/2013 No longer Active Vitamin B-12 1,000 mcg/mL Injection RxNorm: 866111 Milliliter 04/23/2013 No longer Active Vitamin B-12 1,000 mcg/mL Injection RxNorm: 350264 1Milliliter 03/24/2013 No longer Active cyanocobalamin (vitamin B-12) 1,000 mcg/mL Injection RxNorm : 113395 Milliliter 02/20/2013 No longer Active Vitamin B-12 1,000 mcg/mL Injection RxNorm: 295512 1Milliliter 01/22/2013 No longer Active cyanocobalamin (vitamin B-12) 1,000 mcg/mL Injection RxNorm : 894396 Milliliter 12/19/2012 No longer Active cyanocobalamin (vitamin B-12) 1,000 mcg/mL Injection RxNorm : 268064 Milliliter 11/20/2012 No longer Active cyanocobalamin (vitamin B-12) 1,000 mcg/mL Injection RxNorm : 064449 1Milliliter 10/23/2012 No longer Active cyanocobalamin (vitamin B-12) 1,000 mcg/mL Injection RxNorm : 619397 Milliliter 09/16/2012 No longer Active Vitamin B-12 1,000 mcg/mL Injection RxNorm: 185741 1Milliliter 08/15/2012 No longer Active Vitamin B-12 1,000 mcg/mL Injection RxNorm: 459944 1Milliliter 07/19/2012 No longer Active Vitamin B-12 1,000 mcg/mL Injection RxNorm: 212545 Milliliter 06/19/2012 No longer Active Vitamin B-12 1,000 mcg/mL Injection RxNorm: 865411 Milliliter 05/22/2012 No longer Active Vitamin B-12 1,000 mcg/mL Injection RxNorm: 517092 Milliliter 04/22/2012 No longer Active Vitamin B-12 1,000 mcg/mL Injection RxNorm: 988960 Milliliter 03/19/2012 No longer Active Vitamin B-12 1,000 mcg/mL Injection RxNorm: 604033 Milliliter 02/15/2012 No longer Active Vitamin B-12 1,000 mcg/mL Injection RxNorm: 370476 Milliliter 01/18/2012 No longer Active Kenalog 40 mg/mL Susp for Injection RxNorm: 1899136 1Milliliter 12/28/2011 No longer Active Vitamin B-12 1,000 mcg/mL Injection RxNorm: 021656 Milliliter 12/20/2011 No longer Active cyanocobalamin (vitamin B-12) 1,000 mcg/mL Injection RxNorm : 161892 1Milliliter 11/07/2011 No longer Active cyanocobalamin (vitamin B-12) 1,000 mcg/mL Injection RxNorm : 594481 1Milliliter 10/03/2011 No longer Active cyanocobalamin (vitamin B-12) 1,000 mcg/mL Injection RxNorm : 264392 1Milliliter 07/28/2011 No longer Active cyanocobalamin (vitamin B-12) 1,000 mcg/mL Injection RxNorm : 815792 Milliliter 06/29/2011 No longer Active cyanocobalamin (vitamin B-12) 1,000 mcg/mL Injection RxNorm : 676156 Milliliter 05/23/2011 No longer Active ketorolac 60 mg/2 mL IM RxNorm: 158746 Milliliter 05/23/2011 No longer Active Influenza Virus Vaccine 0.5 mL RxNorm: 04/26/2011 No longer Active Vitamin B-12 1,000 mcg/mL Injection RxNorm: 779585 Milliliter 04/26/2011 No longer Active Immunizations Vaccine Codes Date Status Influenza CVX: 141 04/04/2018 completed Pneumococcal (Adult) CVX: 133 01/29/2018 completed Influenza CVX: 141 04/25/2017 completed Influenza CVX: 141 04/03/2014 completed Influenza CVX: 141 04/23/2013 completed Influenza CVX: 141 04/22/2012 completed Pneumococcal CVX: 33 01/30/2012 completed Influenza CVX: 141 04/26/2011 completed Assessments Condition Codes Effective Dates Type 2 diabetes mellitus with hyperglycemia ICD-10: E11.65 ICD-9: 250.02 08/12/2018 Chronic kidney disease, stage 3 (moderate) ICD-10: N18.3 ICD-9: 585.3 08/05/2018 Essential (primary) hypertension ICD-10: I10 ICD-9: 401.9 08/05/2018 Sacrococcygeal disorders, not elsewhere classified ICD-10: M53.3 ICD-9: 724.6 05/29/2018 Low back pain ICD-10: M54.5 ICD-9: 724.2 05/29/2018 Sciatica, right side ICD-10: M54.31 ICD-9: 724.3 05/29/2018 Encounter for screening mammogram for malignant neoplasm of breast ICD-10: Z12.31 ICD-9: V76.12 05/20/2018 Type 2 diabetes mellitus without complications ICD-10: E11.9 ICD-9: 250.00 05/07/2018 Other vitamin B12 deficiency anemias ICD-10: D51.8 ICD-9: 281.1 05/07/2018 VACCIN FOR INFLUENZA ICD-10: Z23 ICD-9: V04.81 04/04/2018 Encounter for immunization ICD-10: Z23 ICD-9: V03.82 01/29/2018 Encounter for general adult medical examination with abnormal findings ICD-10: Z00.01 ICD-9: V70.0 01/29/2018 Chronic atrial fibrillation ICD-10: I48.2 ICD-9: 427.31 01/01/2018 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 ICD-9: 528.2 12/27/2017 Other lesions of oral mucosa ICD-10: K13.79 ICD-9: 528.9 12/27/2017 Pain in left knee ICD-10: M25.562 ICD-9: [...] 05/11/2014 CELLULITIS OF BUTTOCK ICD-9: 682.5 2013 DIABETES TYPE II ICD-9: 250.00 2013 LUMBAGO ICD-9: 724.2 04/03/2014 ANEMIA ICD-9: 285.9 11/24/2013 EDEMA ICD-9: 782.3 07/28/2013 VACCIN FOR INFLUENZA ICD-9: V04.81 2012 ACUTE URI ICD-9: 465.9 08/06/2012 COUGH ICD-9: 786.2 08/06/2012 ALLERGIC RHINITIS ICD-9: 477.9 2012 PAIN IN LIMB ICD-9: 729.5 08/23/2011 Feces incontinence ICD-9: 787.60 2010 Reason For Visit Reason For Visit Effective Dates Notes diabetes mellitus 08/08/2018 diabetes mellitus 08/05/2018 back pain 05/29/2018 diabetes mellitus 05/07/2018 vaccination [...] 11.2 g/dl 06/07/2017 Cbc With Differential Ord2 HCT 34.4 % 06/07/2017 Cbc With Differential Ord2 Neut% 59.8 % 06/07/2017 Cbc With Differential Ord2 MCV 87.3 fl 06/07/2017 Cbc With Differential Ord2 Lymph% 23.4 % 06/07/2017 Cbc With Differential Ord2 MCH 28.4 pg 06/07/2017 Cbc With Differential Ord2 Sunflower% 12.6 % 06/07/2017 Cbc With Differential Ord2 [...] 1.23 K/ul 06/07/2017 Cbc With Differential Ord2 Sunflower ABS# 0.7 K/ul 06/07/2017 Cbc With Differential Ord2 Eos ABS# 0.2 K/ul 06/07/2017 Cbc With Differential Ord2 Baso ABS# 0.0 K/ul 06/07/2017 Culture Urine [id number] URINE CULTURE SEE NOTES 05/08/2016 Culture Urine [id number] Continued Results 05/08/2016 Urine Culture Ucult Complete >100,000 col/ml aerobic growth sent to ref lab 05/05/2016 IRON TEST [id number] IRON TEST 44 UG/DL 07/28/2013 TSH [id number] TSH 2.104 uIU/ML 07/28/2013 CBC [id number] WBC 6.2 10e9/L 07/28/2013 CBC [id number] RBC 3.95 10e12/L 07/28/2013 CBC [id number] HGB 11.2 g/dL 07/28/2013 CBC [id number] HCT DET 34.2 % 07/28/2013 CBC [id number] MCV 86.6 fL 07/28/2013 CBC [id number] MCH 28.4 pg 07/28/2013 CBC [id number] MCHC 32.7 g/dL 07/28/2013 CBC [id number] PLT 231 10e9/L 07/28/2013 CBC [id number] MPV 10.9 fL 07/28/2013 CBC [id number] JAZMYN % 61.0 % 07/28/2013 CBC [id number] LY % 27.8 % 07/28/2013 CBC [id number] MON % 8.0 % 07/28/2013 CBC [id number] EOS % 2.4 % 07/28/2013 CBC [id number] BASO % 0.8 % 07/28/2013 CBC [id number] RDW 14.0 % 07/28/2013 CBC [id number] ABS JAZMYN 3.78 10e9/L 07/28/2013 CBC [id number] ABS LYMPH 1.72 10e9/L 07/28/2013 CBC [id number] ABS MONO 0.50 10e9/L 07/28/2013 CBC [id number] ABS EOS 0.15 10e9/L 07/28/2013 CBC [id number] ABS BASO 0.05 10e9/L 07/28/2013 CBC [id number] RDW-SD 42.9 fL 07/28/2013 %SAT/TIBC 6633823 TIBC 439 UG/DL 07/28/2013 %SAT/TIBC 4901030 % SATURAT 10 % 07/28/2013 %SAT/TIBC 4581194 UIBC 395 MCG/DL 07/28/2013 Review of Systems System Result Effective Dates Constitutional No anorexia 08/08/2018 Constitutional No recent illness 2018 Constitutional No night sweats 2018 Constitutional No chills 08/08/2018 Constitutional No diaphoresis 08/08/2018 Constitutional fatigue 08/08/2018 Constitutional No fever 08/08/2018 Constitutional No insomnia 08/08/2018 Constitutional No malaise 08/08/2018 Constitutional No weight loss 08/08/2018 Constitutional No weight gain 08/08/2018 Constitutional No recent illness 2018 Constitutional No anorexia 08/05/2018 Constitutional No diaphoresis 08/05/2018 Constitutional fatigue 08/05/2018 Constitutional No fever 08/05/2018 Constitutional No insomnia 08/05/2018 Constitutional No malaise 08/05/2018 Eyes No eye discharge 08/05/2018 Eyes No eye erythema 08/05/2018 Ears/Nose/Throat/Neck No dizziness 2018 Ears/Nose/Throat/Neck No nasal discharge 08/05/2018 Cardiovascular No chest pain/pressure 01/2019 Cardiovascular fatigue 08/05/2018 Cardiovascular hypertension 08/05/2018 Respiratory No productive sputum 2018 Respiratory No chest congestion 2018 Respiratory No cough 08/05/2018 Gastrointestinal No constipation 2018 Gastrointestinal No nausea 08/05/2018 Gastrointestinal No vomiting 08/05/2018 Genitourinary/Nephrology No dysuria 08/05 Musculoskeletal stiffness 08/05/2018 Musculoskeletal back pain 08/05/2018 Musculoskeletal joint complaint 2018 Dermatologic No erythema 08/05/2018 Dermatologic No sores 08/05/2018 Neurologic No alteration of consciousness 08/05/2018 Psychiatric depression 08/05/2018 Endocrine diabetes mellitus type 2 2018 Hematologic/Lymphatic No abnormal ecchymoses 08/05/2018 Constitutional No recent illness 2017 Constitutional No [...] 1994 Constitutional general appearance Overall: well developed 08/08/2018 None Full Exam - General 1994 Constitutional general appearance Overall: in no acute distress 08/08/2018 None Full Exam - General 1994 Constitutional general appearance Overall: well nourished 08/08/2018 None Full Exam - General 1994 Psychiatric orientation/consciousness Overall: oriented to person, place and time 08/08/2018 None Full Exam - General 1994 Integument inspection of skin Overall: no rash, lesions 08/08/2018 None Full Exam - General 1994 Constitutional general appearance Overall: well developed 08/05/2018 None Full Exam - General 1994 Constitutional general appearance Overall: in no acute distress 08/05/2018 None Full Exam - General 1994 Constitutional general appearance Overall: well nourished 08/05/2018 None Full Exam - General 1994 Eyes pupils and irises Overall: pupils equal, round, reactive to light and accomodation 08/05/2018 None Full Exam - General 1994 Ears/Nose/Throat otoscopic exam Overall: external auditory canals clear 08/05/2018 None Full Exam - General 1994 Ears/Nose/Throat otoscopic exam Overall: tympanic membranes clear 08/05/2018 None Full Exam - General 1994 Ears/Nose/Throat oral cavity/pharynx/larynx Overall: oral mucosa clear 08/05/2018 None Full Exam - General 1994 Ears/Nose/Throat oral cavity/pharynx/larynx Overall: oropharyngeal mucosa clear 08/05/2018 None Full Exam - General 1995 Ears/Nose/Throat oral cavity/pharynx/larynx Overall: no masses 08/05/2018 None Full Exam - General 1994 Respiratory auscultation Overall: breath sounds clear bilaterally 08/05/2018 None Full Exam - General 1994 Respiratory respiratory effort/rhythm Overall: no retractions 08/05/2018 None Full Exam - General 1994 Respiratory respiratory effort/rhythm Overall: normal rate 08/05/2018 None Full Exam - General 1994 Cardiovascular auscultation of heart Overall: normal heart sounds 08/05/2018 None Full Exam - General 1994 Abdomen abdominal exam Overall: no tenderness 08/05/2018 None Full Exam - General 1994 Abdomen abdominal exam Overall: normal bowel sounds 08/05/2018 None Full Exam - General 1994 Musculoskeletal head and neck Overall: head atraumatic 08/05/2018 None Full Exam - General 1994 Musculoskeletal head and neck Overall: cervical spine benign 08/05/2018 None Full Exam - General 1994 Neurologic gait Overall: no ataxia, no unsteadiness 08/05/2018 None Full Exam - General 1994 Psychiatric orientation/consciousness Overall: oriented to person, place and time 08/05/2018 None Full Exam - General 1994 Psychiatric mood and affect Overall: normal mood and affect 08/05/2018 None Full Exam - Cardiology Cardiovascular auscultation of heart Rate: bradycardia 08/05/2018 None Full Exam - Orthopedics Constitutional general [...] developed 05/22/2012 None Full Exam - General 1995 Constitutional general appearance Overall: in no acute distress 05/22/2012 None Full Exam - General 1995 Constitutional general appearance Overall: well nourished 05/22/2012 [...] decreased 04/26/2011 None Procedures Procedure Codes Date GLUCOSE MONITORING CONT CPT-4: 02431 08/08/2018 THER/PROPH/DIAG INJ SC/IM CPT-4: 00451 08/05/2018 VITAMIN B12 INJECTION CPT-4: J3420 08/05/2018 DRAIN/INJECT JOINT/BURSA CPT-4: 61082 05/29/2018 TRIAMCINOLONE ACET INJ NOS CPT-4: J3301 05/29/2018 THER/PROPH/DIAG INJ SC/IM CPT-4: 40037 05/07/2018 VITAMIN B12 INJECTION CPT-4: J3420 05/07/2018 FLU VAC NO PRSV 4 JINNY 3 YRS+ CPT-4: 02145 04/04/2018 ADMIN INFLUENZA VIRUS VAC CPT-4: G0008 04/04/2018 THER/PROPH/DIAG INJ SC/IM CPT-4: 59661 04/04/2018 VITAMIN B12 INJECTION CPT-4: J3420 04/04/2018 THER/PROPH/DIAG INJ SC/IM CPT-4: 97999 03/04/2018 VITAMIN B12 INJECTION CPT-4: J3420 03/04/2018 PPPS, SUBSEQ VISIT CPT -4: G0439 01/29/2018 ADMIN PNEUMOCOCCAL VACCINE SNOMED CT: 60835682 CPT-4: G0009 01/29/2018 PNEUMOCOCCAL VACC [address]: 19328917 CPT-4: 66847 01/29/2018 THER/PROPH/DIAG INJ SC/IM CPT-4: 44868 01/29/2018 VITAMIN B12 INJECTION CPT-4: J3420 01/29/2018 PRESCRIP TRANSMIT VIA ERX SY CPT-4: G8553 01/01/2018 PRESCRIP TRANSMIT VIA ERX SY CPT-4: G8553 12/27/2017 THER/PROPH/DIAG INJ SC/IM CPT-4: 05951 12/18/2017 VITAMIN B12 INJECTION CPT-4: J3420 12/18/2017 PRESCRIP TRANSMIT VIA ERX SY CPT-4: G8553 12/18/2017 THER/PROPH/DIAG INJ SC/IM CPT-4: 92887 11/20/2017 VITAMIN B12 INJECTION CPT-4: J3420 11/20/2017 THER/PROPH/DIAG INJ SC/IM CPT-4: 56486 08/21/2017 VITAMIN B12 INJECTION CPT-4: J3420 08/21/2017 THER/PROPH/DIAG INJ SC/IM CPT-4: 39687 07/18/2017 VITAMIN B12 INJECTION CPT-4: J3420 07/18/2017 TRIAMCINOLONE ACET INJ NOS CPT-4: J3301 06/18/2017 THER/PROPH/DIAG INJ SC/IM CPT-4: 45994 06/18/2017 VITAMIN B12 INJECTION CPT-4: J3420 06/18/2017 PRESCRIP TRANSMIT VIA ERX SY CPT-4: G8553 06/18/2017 THER/PROPH/DIAG INJ SC/IM CPT-4: 48279 05/09/2017 VITAMIN B12 INJECTION CPT-4: J3420 05/09/2017 ADMIN INFLUENZA VIRUS VAC CPT-4: G0008 04/25/2017 FLU VAC NO PRSV 4 JINNY 3 YRS+ CPT-4: 36028 04/25/2017 THER/PROPH/DIAG INJ SC/IM CPT-4: 91606 04/04/2017 VITAMIN B12 INJECTION CPT-4: J3420 04/04/2017 TRIAMCINOLONE ACET INJ NOS CPT-4: J3301 02/23/2017 VITAMIN B12 INJECTION CPT-4: J3420 02/23/2017 THER/PROPH/DIAG INJ SC/IM CPT-4: 09699 01/23/2017 VITAMIN B12 INJECTION CPT-4: J3420 01/23/2017 VITAMIN B12 INJECTION CPT-4: J3420 12/26/2016 THER/PROPH/DIAG INJ SC/IM CPT-4: 04189 12/26/2016 THER/PROPH/DIAG INJ SC/IM CPT-4: 41790 11/14/2016 VITAMIN B12 INJECTION CPT-4: J3420 11/14/2016 THER/PROPH/DIAG INJ SC/IM CPT-4: 77939 09/07/2016 TRIAMCINOLONE ACET INJ NOS CPT-4: J3301 09/07/2016 PRESCRIP TRANSMIT VIA ERX SY CPT-4: G8553 09/07/2016 THER/PROPH/DIAG INJ SC/IM CPT-4: 17831 08/29/2016 VITAMIN B12 INJECTION CPT-4: J3420 08/29/2016 PRESCRIP TRANSMIT VIA ERX SY CPT-4: G8553 08/29/2016 THER/PROPH/DIAG INJ SC/IM CPT-4: 19989 06/12/2016 VITAMIN B12 INJECTION CPT-4: J3420 06/12/2016 PRESCRIP TRANSMIT VIA ERX SY CPT-4: G8553 06/12/2016 URINALYSIS NONAUTO W/O SCOPE CPT-4: 81915 05/04/2016 ROCEPHIN, PER 250 MG CPT-4: J0696 05/04/2016 THER/PROPH/DIAG INJ SC/IM CPT-4: 77944 05/04/2016 VITAMIN B12 INJECTION CPT-4: J3420 05/04/2016 PRESCRIP TRANSMIT VIA ERX SY CPT-4: G8553 05/04/2016 PRESCRIP TRANSMIT VIA ERX SY CPT-4: G8553 03/30/2016 THER/PROPH/DIAG INJ SC/IM CPT-4: 73701 03/17/2016 VITAMIN B12 INJECTION CPT-4: J3420 03/17/2016 THER/PROPH/DIAG INJ SC/IM CPT-4: 31251 02/15/2016 VITAMIN B12 INJECTION CPT-4: J3420 02/15/2016 THER/PROPH/DIAG INJ SC/IM CPT-4: 37077 01/19/2016 VITAMIN B12 INJECTION CPT-4: J3420 01/19/2016 THER/PROPH/DIAG INJ SC/IM CPT-4: 41093 12/07/2015 VITAMIN B12 INJECTION CPT-4: J3420 12/07/2015 ROCEPHIN, PER 250 MG CPT-4: J0696 09/06/2015 THER/PROPH/DIAG INJ SC/IM CPT-4: 55344 09/06/2015 VITAMIN B12 INJECTION CPT-4: J3420 09/06/2015 PRESCRIP TRANSMIT VIA ERX SY CPT-4: G8553 09/06/2015 ROCEPHIN, PER 250 MG CPT-4: J0696 07/05/2015 TRIAMCINOLONE ACET INJ NOS CPT-4: J3301 07/05/2015 PRESCRIP TRANSMIT VIA ERX SY CPT-4: G8553 07/05/2015 THER/PROPH/DIAG INJ SC/IM CPT-4: 01503 06/28/2015 VITAMIN B12 INJECTION CPT-4: J3420 06/28/2015 THER/PROPH/DIAG INJ SC/IM CPT-4: 55041 05/13/2015 VITAMIN B12 INJECTION CPT-4: J3420 05/13/2015 THER/PROPH/DIAG INJ SC/IM CPT-4: 07435 02/23/2015 VITAMIN B12 INJECTION CPT-4: J3420 02/23/2015 THER/PROPH/DIAG INJ SC/IM CPT-4: 44755 01/08/2015 VITAMIN B12 INJECTION CPT-4: J3420 01/08/2015 THER/PROPH/DIAG INJ SC/IM CPT-4: 76645 12/08/2014 VITAMIN B12 INJECTION CPT-4: J3420 12/08/2014 THER/PROPH/DIAG INJ SC/IM CPT-4: 69271 10/26/2014 VITAMIN B12 INJECTION CPT-4: J3420 10/26/2014 VITAMIN B12 INJECTION CPT-4: J3420 09/24/2014 THER/PROPH/DIAG INJ SC/IM CPT-4: 37636 09/24/2014 THER/PROPH/DIAG INJ SC/IM CPT-4: 40923 08/24/2014 VITAMIN B12 INJECTION CPT-4: J3420 08/24/2014 THER/PROPH/DIAG INJ SC/IM CPT-4: 51779 07/08/2014 VITAMIN B12 INJECTION CPT-4: J3420 07/08/2014 THER/PROPH/DIAG INJ SC/IM CPT-4: 56611 06/01/2014 VITAMIN B12 INJECTION CPT-4: J3420 06/01/2014 TRIAMCINOLONE ACET INJ NOS CPT-4: J3301 05/11/2014 VITAMIN B12 INJECTION CPT-4: J3420 04/27/2014 THER/PROPH/DIAG INJ SC/IM CPT-4: 64555 04/27/2014 FLU VAC NO PRSV 4 JINNY 3 YRS+ CPT-4: 78907 04/03/2014 ADMIN INFLUENZA VIRUS VAC Assigned to/Juliana Graham CPT-4: [id number] 04/03/2014 THER/PROPH/DIAG INJ SC/IM CPT-4: 85085 03/24/2014 THER/PROPH/DIAG INJ SC/IM CPT-4: 36480 02/24/2014 THER/PROPH/DIAG INJ SC/IM CPT-4: 34895 01/09/2014 THER/PROPH/DIAG INJ SC/IM CPT-4: 64168 11/27/2013 THER/PROPH/DIAG INJ SC/IM CPT-4: 24952 09/18/2013 VITAMIN B12 INJECTION CPT-4: J3420 09/18/2013 THER/PROPH/DIAG INJ SC/IM CPT-4: 45499 08/22/2013 VITAMIN B12 INJECTION CPT-4: J3420 08/22/2013 ROUTINE VENIPUNCTURE CPT-4: 11215 07/28/2013 VITAMIN B12 INJECTION CPT-4: J3420 07/28/2013 THER/PROPH/DIAG INJ SC/IM CPT-4: 62463 07/28/2013 THER/PROPH/DIAG INJ SC/IM CPT-4: 02868 06/16/2013 VITAMIN B12 INJECTION CPT-4: J3420 06/16/2013 THER/PROPH/DIAG INJ SC/IM CPT-4: 22156 05/21/2013 VITAMIN B12 INJECTION CPT-4: J3420 05/21/2013 ADMIN INFLUENZA VIRUS VAC CPT-4: G0008 04/23/2013 FLULAVAL VACC, 3 YRS & >, IM CPT-4: Q2036 04/23/2013 VITAMIN B12 INJECTION CPT-4: J3420 04/23/2013 THER/PROPH/DIAG INJ SC/IM CPT-4: 74324 04/23/2013 THER/PROPH/DIAG INJ SC/IM CPT-4: 37035 03/24/2013 VITAMIN B12 INJECTION CPT-4: J3420 03/24/2013 THER/PROPH/DIAG INJ SC/IM CPT-4: 71753 02/20/2013 VITAMIN B12 INJECTION CPT-4: J3420 02/20/2013 VITAMIN B12 INJECTION CPT-4: J3420 01/22/2013 PRESCRIP TRANSMIT VIA ERX SY CPT-4: G8553 01/22/2013 TRIAMCINOLONE ACET INJ NOS CPT-4: J3301 12/19/2012 VITAMIN B12 INJECTION CPT-4: J3420 12/19/2012 THER/PROPH/DIAG INJ SC/IM CPT-4: 50752 11/20/2012 VITAMIN B12 INJECTION CPT-4: J3420 11/20/2012 THER/PROPH/DIAG INJ SC/IM CPT-4: 25361 10/23/2012 VITAMIN B12 INJECTION CPT-4: J3420 10/23/2012 THER/PROPH/DIAG INJ SC/IM CPT-4: 75091 09/16/2012 VITAMIN B12 INJECTION CPT-4: J3420 09/16/2012 VITAMIN B12 INJECTION CPT-4: J3420 08/15/2012 THER/PROPH/DIAG INJ SC/IM CPT-4: 71745 08/15/2012 TRIAMCINOLONE ACET INJ NOS CPT-4: J3301 08/06/2012 THER/PROPH/DIAG INJ SC/IM CPT-4: 65280 08/06/2012 PRESCRIP TRANSMIT VIA ERX SY CPT-4: G8553 08/06/2012 VITAMIN B12 INJECTION CPT-4: J3420 07/19/2012 THER/PROPH/DIAG INJ SC/IM CPT-4: 83588 07/19/2012 DRAIN/INJECT JOINT/BURSA CPT-4: 09373 07/10/2012 THER/PROPH/DIAG INJ SC/IM CPT-4: 32213 06/19/2012 VITAMIN B12 INJECTION CPT-4: J3420 06/19/2012 VITAMIN B12 INJECTION CPT-4: J3420 05/22/2012 THER/PROPH/DIAG INJ SC/IM CPT-4: 00131 05/22/2012 ADMIN INFLUENZA VIRUS VAC CPT-4: G0008 04/22/2012 FLULAVAL VACC, 3 YRS & >, IM CPT-4: Q2036 04/22/2012 VITAMIN B12 INJECTION CPT-4: J3420 04/22/2012 VITAMIN B12 INJECTION CPT-4: J3420 03/19/2012 THER/PROPH/DIAG INJ SC/IM CPT-4: 98853 03/19/2012 VITAMIN B12 INJECTION CPT-4: J3420 02/15/2012 THER/PROPH/DIAG INJ SC/IM CPT-4: 46531 02/15/2012 THER/PROPH/DIAG INJ SC/IM CPT-4: 03947 01/18/2012 VITAMIN B12 INJECTION CPT-4: J3420 01/18/2012 TRIAMCINOLONE ACET INJ NOS CPT-4: J3301 12/28/2011 DRAIN/INJECT JOINT/BURSA CPT-4: 09472 12/28/2011 VITAMIN B12 INJECTION CPT-4: J3420 12/20/2011 THER/PROPH/DIAG INJ SC/IM CPT-4: 23383 12/20/2011 VITAMIN B12 INJECTION CPT-4: J3420 11/07/2011 THER/PROPH/DIAG INJ SC/IM CPT-4: 02357 11/07/2011 VITAMIN B12 INJECTION CPT-4: J3420 10/03/2011 THER/PROPH/DIAG INJ SC/IM CPT-4: 06236 10/03/2011 TRIAMCINOLONE ACET INJ NOS CPT-4: J3301 08/23/2011 DRAIN/INJECT JOINT/BURSA CPT-4: 24491 08/23/2011 THER/PROPH/DIAG INJ SC/IM CPT-4: 58700 08/23/2011 VITAMIN B12 INJECTION CPT-4: J3420 08/23/2011 VITAMIN B12 INJECTION CPT-4: J3420 07/28/2011 THER/PROPH/DIAG INJ SC/IM CPT-4: 69762 07/28/2011 VITAMIN B12 INJECTION CPT-4: J3420 06/29/2011 THER/PROPH/DIAG INJ SC/IM CPT-4: 75378 06/29/2011 KETOROLAC TROMETHAMINE INJ CPT-4: J1885 05/23/2011 VITAMIN B12 INJECTION CPT-4: J3420 05/23/2011 THER/PROPH/DIAG INJ SC/IM CPT-4: 66904 05/23/2011 ADMIN INFLUENZA VIRUS VAC CPT-4: G0008 04/26/2011 FLULAVAL VACC, 3 YRS & >, IM CPT-4: Q2036 04/26/2011 VITAMIN B12 INJECTION CPT-4: J3420 04/26/2011 THER/PROPH/DIAG INJ SC/IM CPT-4: 35208 04/26/2011 Vital Signs Date Vital 08/08/2018 Blood Pressure 1: 158/78 Code : 8480-6 Heart Rate 1: 53 bpm Height: 5'6" SpO2: 96% Weight: 08/05/2018 Blood Pressure 1: 150/78 Code : 8480-6 BMI: 36.0 Code : 35901-4 Heart Rate 1 : 51 bpm Height: 5'6" SpO2: 92% Weight: 223 lbs 05/29/2018 Blood Pressure 1: 120/64 Code : 8480-6 BMI: 35.5 Code : 49679-8 Heart Rate 1 : 58 bpm Height: 5'6" SpO2: 96% Weight: 220 lbs 05/07/2018 Blood Pressure 1: 130/60 Code : 8480-6 BMI: 35.5 Code : 36973-6 Heart Rate 1 : 60 bpm Height: 5'6" SpO2: 97% Weight: 220 lbs 01/29/2018 Blood Pressure 1: 150/80 Code : 8480-6 BMI: 35.5 Code : 74359-6 Heart Rate 1 : 68 bpm Height: 5'6" SpO2: 97% Waist Measure (cm): 109 cm Weight: 220 lbs 01/01/2018 Blood Pressure 1: 136/68 Code : 8480-6 BMI: 35.2 Code : 33552-3 Heart Rate 1 : 60 bpm Height: 5'6" Respiratory Rate: 16 bpm SpO2: 98% Weight: 218 lbs 12/27/2017 Height: Weight: 12/18/2017 Blood Pressure 1: 118/62 Code : 8480-6 BMI: 36.2 Code : 42246-2 Heart Rate 1 : 45 bpm Height: 5'6" SpO2: 98% Weight: 224 lbs 12/13/2017 Blood Pressure 1: 138/88 Code : 8480-6 Heart Rate 1: 92 bpm Height: SpO2: 98% Weight: 06/18/2017 Blood Pressure 1: 134/68 Code : 8480-6 BMI: 35.8 Code : 40485-6 Heart Rate 1 : 50 bpm Height: 5'6" SpO2: 98% Weight: 222 lbs 06/07/2017 Blood Pressure 1: 146/68 Code : 8480-6 BMI: 35.3 Code : 27593-5 Heart Rate 1 : 63 bpm Height: 5'6" SpO2: 99% Weight: 218 lbs 8 oz 04/16/2017 Blood Pressure 1: 130/62 Code : 8480-6 BMI: 34.7 Code : 73953-8 Heart Rate 1 : 51 bpm Height: 5'6" SpO2: 94% Weight: 215 lbs 02/23/2017 Blood Pressure 1: 136/64 Code : 8480-6 BMI: 35.0 Code : 57222-5 Heart Rate 1 : 54 bpm Height: 5'6" SpO2: 96% Weight: 217 lbs 12/26/2016 Blood Pressure 1: 144/74 Code : 8480-6 BMI: 34.5 Code : 83581-5 Heart Rate 1 : 60 bpm Height: 5'6" SpO2: 97% Weight: 214 lbs 09/07/2016 Blood Pressure 1: 138/62 Code : 8480-6 Heart Rate 1: 86 bpm SpO2: 96% Temperature: 36.8 (C) / 98.2 (F) Weight: 207 lbs 08/29/2016 Blood Pressure 1: 132/58 Code : 8480-6 BMI: 33.9 Code : 84199-1 Heart Rate 1 : 55 bpm Height: 5'6" SpO2: 98% Weight: 210 lbs 06/12/2016 Blood Pressure 1: 128/76 Code : 8480-6 BMI: 33.2 Code : 04002-6 Heart Rate 1 : 57 bpm Height: 5'6" SpO2: 97% Weight: 206 lbs 05/04/2016 Blood Pressure 1: 130/72 Code : 8480-6 BMI: 33.9 Code : 30935-3 Heart Rate 1 : 74 bpm Height: 5'6" SpO2: 96% Temperature: 36.9 (C) / 98.5 (F) Weight: 210 lbs 03/30/2016 Blood Pressure 1: 116/66 Code : 8480-6 BMI: 34.3 Code : 31009-0 Heart Rate 1 : 67 bpm Height: 5'6" SpO2: 98% Weight: 212 lbs 8 oz 11/30/2015 Blood Pressure 1: 138/64 Code : 8480-6 BMI: 35.2 Code : 52150-8 Heart Rate 1 : 59 bpm Height: 5'6" SpO2: 98% Weight: 218 lbs 09/06/2015 Blood Pressure 1: 138/668 Code: 8480-6 BMI: 35.3 Code: 60322-9 Heart Rate 1: 68 bpm Height: 5'6" Weight: 219 lbs 08/04/2015 Blood Pressure 1: 140/82 Code : 8480-6 Heart Rate 1: 62 bpm SpO2: 98% Weight: 220 lbs 07/05/2015 Blood Pressure 1: 122/80 Code : 8480-6 BMI: 36.0 Code : 81672-1 Heart Rate 1 : 63 bpm Height: 5'6" SpO2: 97% Temperature: 36.3 (C) / 97.3 (F) Weight: 223 lbs 06/28/2015 Blood Pressure 1: 150/74 Code : 8480-6 BMI: 36.3 Code : 24639-4 Heart Rate 1 : 65 bpm Height: 5'6" SpO2: 96% Weight: 225 lbs 02/23/2015 Blood Pressure 1: 142/64 Code : 8480-6 BMI: 37.0 Code : 05953-9 Heart Rate 1 : 56 bpm Height: 5'6" SpO2: 96% Weight: 229 lbs 01/08/2015 Blood Pressure 1: 128/88 Code : 8480-6 BMI: 37.3 Code : 33501-6 Heart Rate 1 : 74 bpm Height: 5'6" Weight: 231 lbs 09/24/2014 Blood Pressure 1: 128/70 Code : 8480-6 BMI: 36.8 Code : 30870-3 Heart Rate 1 : 68 bpm Height: 5'6" SpO2: 96% Weight: 228 lbs 05/11/2014 Blood Pressure 1: 148/82 Code : 8480-6 Height: Temperature: 36.2 (C) / 97.2 (F) Weight: 05/01/2014 Blood Pressure 1: 128/68 Code : 8480-6 BMI: 36.6 Code : 41147-3 Heart Rate 1 : 74 bpm Height: 5'6" Weight: 227 lbs 04/03/2014 Blood Pressure 1: 130/72 Code : 8480-6 BMI: 36.8 Code : 55079-5 Heart Rate 1 : 76 bpm Height: 5'6" Weight: 228 lbs 11/24/2013 Blood Pressure 1: 146/64 Code : 8480-6 BMI: 35.5 Code : 73862-0 Heart Rate 1 : 64 bpm Height: 5'6" Weight: 220 lbs 08/22/2013 Weight: 223 lbs 07/28/2013 Blood Pressure 1: 112/68 Code : 8480-6 BMI: 36.2 Code : 82456-7 Heart Rate 1 : 80 bpm Height: 5'6" Weight: 224 lbs 06/16/2013 Blood Pressure 1: 132/60 Code : 8480-6 BMI: 37.6 Code : 94849-2 Heart Rate 1 : 72 bpm Height: 5'6" Weight: 233 lbs 01/22/2013 Blood Pressure 1: 130/64 Code : 8480-6 BMI: 37.3 Code : 64821-5 Heart Rate 1 : 80 bpm Height: 5'6" Weight: 231 lbs 10/02/2012 Blood Pressure 1: 146/90 Code : 8480-6 BMI: 36.8 Code : 27457-1 Heart Rate 1 : 60 bpm Height: [...] Code : 8480-6 BMI: 37.1 Code : 49160-3 Heart Rate 1 : 60 bpm Height: 5'6" Respiratory Rate: 16 bpm Weight: 230 lbs 12/20/2011 Blood Pressure 1: 142/66 Code : 8480-6 BMI: 35.8 Code : 89752-9 Heart Rate 1 : 66 bpm Height: [...] Code : 8480-6 BMI: 36.2 Code : 52004-6 Heart Rate 1 : 64 bpm Height: 5'6" Respiratory Rate: 16 bpm Weight: 224 lbs 8 oz Functional Status No Functional Status data History of Present Illness Symptom Name Status Result Effective Date Notes Quality insulin dependent 08/08/2018 None Severity mild 2018 None Significant Medications insulin 08/08/2018 None Alleviating Factors medication 08/08/2018 None Quality chronic 08/08 None Test results Pt checking blood glucose at home, see scanned readings 08/08/2018 None Glucose monitoring Denies daily 08/08/2018 None Glucose monitoring Denies fasting 08/08/2018 None Exacerbating Factors diet 08/08/2018 None Quality insulin dependent 08/05/2018 None Test results HgbA1c level 6.1 08/05/2018 05/03/18 Severity mild 2018 None Blood glucose levels greater than 120 08/05/2018 None Significant Medications insulin 08/05/2018 None Alleviating Factors medication 08/05/2018 None Glucose monitoring daily 08/05/2018 None Exercise no exercise 08/05/2018 None back pain Location lumbar-sacral spine 05/29/2018 None [...] None knee pain Quality intermittent [facility]23[facility] HgbA1c [...] data Encounters Encounter Performer Location Codes Date ([id number]) Miscellaneous no charge Diagnosis: Type 2 diabetes mellitus with hyperglycemia[ICD10: E11.65] Daisy Garcia MD , [facility] CPT-4: 81571 08/12/2018 ([id number]) 16317 EST. PATIENT, LEVEL II Diagnosis: Type 2 diabetes mellitus with hyperglycemia[ICD10: E11.65] [facility] CPT-4: 45201 08/08/2018 ([id number]) 53172 EST. PATIENT, LEVEL IV Diagnosis: Essential (primary) hypertension[ICD10: I10] Diagnosis: Type 2 diabetes mellitus with hyperglycemia[ICD10: E11.65] Diagnosis: Chronic kidney disease, stage 3 (moderate)[ICD10: N18.3] Chantell Garcia MD , [facility] CPT-4: 15723 08/05/2018 19243 EST. PATIENT, LEVEL III Diagnosis: Sacrococcygeal disorders, not elsewhere classified[ICD10: M53.3] Diagnosis: Low back pain[ICD10: M54.5] Diagnosis: Sciatica, right side[ICD10: M54.31] Yady Garcia MD, [facility] CPT-4: 96830 05/29/2018 ([id number]) 38578 EST. PATIENT, LEVEL IV Diagnosis: Type 2 diabetes mellitus without complications[ICD10: E11.9] Diagnosis: Chronic kidney disease, stage 3 (moderate)[ICD10: N18.3] Diagnosis: Essential (primary) hypertension[ICD10: I10] Diagnosis: Other vitamin B12 deficiency anemias[ICD10: D51.8] Chantell Garcia MD, [facility] CPT-4: 12068 05/07/2018 ([id number]) 67807 EST. PATIENT, LEVEL IV Diagnosis: Type 2 diabetes mellitus without complications[ICD10: E11.9] Diagnosis: Essential (primary) hypertension[ICD10: I10] Diagnosis: Chronic atrial fibrillation[ICD10: I48.2] Daisy Garcia MD, [facility] CPT-4: 44029 01/01/2018 ([id number]) 16918 EST. 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 PATIENT, LEVEL IV Diagnosis: Type 2 diabetes mellitus with hyperglycemia[ICD10: E11.65] Diagnosis: Essential (primary) hypertension[ICD10: I10] Diagnosis: Pain in left knee[ICD10: M25.562] Diagnosis: Other vitamin B12 deficiency anemias[ICD10: D51.8] Daisy Garcia MD, [facility] CPT-4: 64424 12/18/2017 82780 EST. PATIENT, LEVEL III Diagnosis: Pain in left knee[ICD10: M25.562] Yady Garcia MD, [facility] CPT -4: 85323 12/13/2017 ([id number]) 06584 EST. PATIENT, LEVEL IV Diagnosis: Type 2 diabetes mellitus without complications[ICD10: E11.9] Diagnosis: Essential (primary) hypertension[ICD10: I10] Diagnosis: Other vitamin B12 deficiency anemias[ICD10: D51.8] Diagnosis: Allergic rhinitis due to animal (cat) (dog) hair and dander[ICD10: J30.81] Daisy Garcia MD [facility] CPT-4: 98470 2016 ([id number]) 51542 EST. 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 PATIENT, LEVEL IV Diagnosis: Type 2 diabetes mellitus without complications[ICD10: E11.9] Diagnosis: Essential (primary) hypertension[ICD10: I10] Diagnosis: Chronic atrial fibrillation[ICD10: I48.2] Daisy Garcia MD [facility] CPT-4: 20552 04/16/2017 ([id number]) 97216 EST. PATIENT, LEVEL III Diagnosis: Sciatica, left side[ICD10: M54.32] Diagnosis: Sacroiliitis, not elsewhere classified[ICD10: M46.1] Chantell Garcia MD [facility] CPT-4: 07915 02/23/2017 ([id number]) 73134 EST. PATIENT, LEVEL IV Diagnosis: Type 2 diabetes mellitus without complications[ICD10: E11.9] Diagnosis: Essential (primary) hypertension[ICD10: I10] Daisy Garcia MD [facility] CPT-4: 06881 12/26/2016 ([id number]) 33019 EST. PATIENT, LEVEL III Diagnosis: Cough[ICD10: R05] Diagnosis: Acute bronchitis, unspecified[ICD10: J20.9] Chantell Garcia MD [facility] CPT-4: 80745 09/07/2016 ([id number]) 89727 EST. PATIENT, LEVEL IV Diagnosis: Type 2 diabetes mellitus without complications[ICD10: E11.9] Diagnosis: Cough[ICD10: R05] Diagnosis: Acute laryngopharyngitis[ICD10: J06.0] Diagnosis: Acute recurrent maxillary sinusitis[ICD10: J01.01] Daisy Garcia MD, [facility] CPT-4: 05950 08/29/2016 38115 EST. PATIENT, LEVEL IV Diagnosis: Other allergic rhinitis[ICD10: J30.89] Diagnosis: Other vitamin B12 deficiency anemias[ICD10: D51.8] Yady Garcia MD, [facility] CPT-4: 46177 06/12/2016 ([id number]) 18144 EST. PATIENT, LEVEL III Diagnosis: Urinary tract infection, site not specified[ICD10: N39.0] Diagnosis: Fever, unspecified[ICD10: R50.9] Diagnosis: Other vitamin B12 deficiency anemias[ICD10: D51.8] Chantell Garcia MD, [facility] CPT-4: 80422 05/04/2016 ([id number]) 34680 EST. 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 PATIENT, LEVEL IV Diagnosis: Type 2 diabetes mellitus with hyperglycemia[ICD10: E11.65] Diagnosis: Essential (primary) hypertension[ICD10: I10] Daisy Garcia MD, [facility] CPT-4: 73973 11/30/2015 ([id number]) 62789 EST. PATIENT, LEVEL III Diagnosis: Acute recurrent maxillary sinusitis[ICD10: J01.01] Diagnosis: Unspecified acute conjunctivitis, right eye[ICD10: H10.31] Diagnosis: Vitamin B12 deficiency anemia, unspecified[ICD10: D51.9] Chantell Garcia MD , [facility] CPT-4: 25880 09/06/2015 63048 EST. PATIENT, LEVEL III Diagnosis: Pain in right knee[ICD10: M25.561] Diagnosis: Essential (primary) hypertension[ICD10: I10] Diagnosis: Vitamin B12 deficiency anemia, unspecified[ICD10: D51.9] Yady Garcia MD, [facility] CPT-4: 01051 08/04/2015 ([id number]) 43027 EST. PATIENT, LEVEL III Diagnosis: Streptococcal pharyngitis[ICD10: J02.0] Diagnosis: Acute recurrent maxillary sinusitis[ICD10: J01.01] Chantell Garcia MD, [facility] CPT-4: 33184 07/05/2015 ([id number]) 61132 EST. PATIENT, LEVEL IV Diagnosis: Type 2 diabetes mellitus with hyperglycemia[ICD10: E11.65] Diagnosis: Essential (primary) hypertension[ICD10: I10] Diagnosis: Vitamin B12 deficiency anemia, unspecified[ICD10: D51.9] Daisy Garcia MD, [facility] CPT-4: 27042 06/28/2015 ([id number]) 66997 EST. PATIENT, LEVEL IV Diagnosis: DM W/O COMPLICATION TYPE II, UNCONTROLLED[ICD9: 250.02] Diagnosis: ESSENTIAL HYPERTENSION[ICD9: 401.9] Diagnosis: Iron deficiency[ICD9: 280.9] Diagnosis: OTH SCREENING MAMMOGRAM[ICD9: V76.12] Diagnosis: B12 deficiency[ICD9: 266.2] Daisy Garcia MD, [facility] CPT- 4: 51808 02/23/2015 ([id number]) 63595 EST. PATIENT, LEVEL IV Diagnosis: DM W/O COMPLICATION TYPE II, UNCONTROLLED[ICD9: 250.02] Diagnosis: ESSENTIAL HYPERTENSION[ICD9: 401.9] Diagnosis: Right knee pain[ICD9: 719.46] Diagnosis: B12 deficiency[ICD9: 266.2] Chantell Garcia MD, [facility] CPT-4: 08628 01/08/2015 ([id number]) 00146 EST. PATIENT, LEVEL IV Diagnosis: DM W/O COMPLICATION TYPE II, UNCONTROLLED[ICD9: 250.02] Diagnosis: ESSENTIAL HYPERTENSION[ICD9: 401.9] Diagnosis: Iron deficiency[ICD9: 280.9] Daisy Garcia MD, [facility] CPT- 4: 71827 09/24/2014 ([id number]) 71606 EST. PATIENT, LEVEL III Diagnosis: Sacroiliitis[ICD9: 720.2] Diagnosis: Left sided sciatica[ICD9: 724.3] Chantell Garcia MD, [facility] CPT-4: 44996 05/11/2014 ([id number]) 97377 EST. PATIENT, LEVEL III Diagnosis: CELLULITIS OF BUTTOCK[ICD9: 682.5] Daisy Garcia MD [facility] CPT-4: 12688 05/01/2014 29417 EST. PATIENT, LEVEL IV Diagnosis: ESSENTIAL HYPERTENSION[ICD9: 401.9] Diagnosis: DIABETES TYPE II[ICD9: 250.00] Diagnosis: Iron deficiency[ICD9: 280.9] Diagnosis: LUMBAGO[ICD9: 724.2] Daisy Garcia MD [facility] CPT-4: 23959 04/03/2014 ([id number]) 22600 EST. PATIENT, LEVEL IV Diagnosis: ESSENTIAL HYPERTENSION[SNOMED: 45882412] Diagnosis: DIABETES TYPE II[SNOMED: 087299404] Diagnosis: ANEMIA[ICD9: 285.9] Diagnosis: Iron deficiency[ICD9: 280.9] Daisy Garcia MD [facility] CPT- 4: 40430 11/24/2013 ([id number]) 44667 EST. PATIENT, LEVEL IV Diagnosis: ESSENTIAL HYPERTENSION[SNOMED: 41689167] Diagnosis: DIABETES TYPE II[SNOMED: 299260306] Diagnosis: EDEMA[ICD9: 782.3] Daisy Garcia MD [facility] CPT-4: 44113 07/28/2013 ([id number]) 49338 EST. PATIENT, LEVEL IV Diagnosis: ESSENTIAL HYPERTENSION[SNOMED: 25348289] Diagnosis: DIABETES TYPE II[SNOMED: 167776444] Diagnosis: EDEMA[ICD9: 782.3] Diagnosis: B-COMPLEX DEFIC NEC[ICD9: 266.2] Daisy Garcia MD, [facility] CPT-4: 11504 06/16/2013 ([id number]) 22208 EST. PATIENT, LEVEL IV Diagnosis: ESSENTIAL HYPERTENSION[SNOMED: 54842136] Diagnosis: DIABETES TYPE II[SNOMED: 699515949] Diagnosis: EDEMA[ICD9: 782.3] Diagnosis: B-COMPLEX DEFIC NEC[ICD9: 266.2] Daisy Garcia MD [facility] CPT-4: 37571 01/22/2013 ([id number]) 68026 EST. PATIENT, LEVEL III Diagnosis: Lumbago[ICD9: 724.2] Diagnosis: Sacroiliitis[ICD9: 720.2] Diagnosis: ESSENTIAL HYPERTENSION[SNOMED: 82754104] Daisy Garcia MD, [facility] CPT-4: 26150 10/02/2012 ([id number]) 15714 EST. PATIENT, LEVEL III Diagnosis: ACUTE URI[ICD9: 465.9] Daisy Garcia MD, [facility] CPT-4: 48191 08/06/2012 ([id number]) 62461 EST. PATIENT, LEVEL IV Diagnosis: ESSENTIAL HYPERTENSION[SNOMED: 89723847] Diagnosis: DIABETES TYPE II[SNOMED: 308298215] Diagnosis: ANEMIA[ICD9: 285.9] Daisy Garcia MD, [facility] CPT-4: 41383 07/04/2012 ([id number]) 39272 EST. PATIENT, LEVEL IV Diagnosis: ESSENTIAL HYPERTENSION[SNOMED: 73142157] Diagnosis: DIABETES TYPE II[SNOMED: 988642036] Diagnosis: B-COMPLEX DEFIC NEC[ICD9: 266.2] Daisy Garcia MD, [facility] CPT-4: 74935 05/22/2012 ([id number]) 38552 EST. PATIENT, LEVEL IV Diagnosis: ESSENTIAL HYPERTENSION[SNOMED: 24376658] Diagnosis: DIABETES TYPE II[SNOMED: 463687045] Diagnosis: LUMBAGO[ICD9: 724.2] Diagnosis: B-COMPLEX DEFIC NEC[ICD9: 266.2] Daisy Garcia MD, [facility] CPT-4: 56911 04/22/2012 64626 EST. PATIENT, LEVEL III Diagnosis: Sciatica of right side[ICD9: 724.3] Diagnosis: Sacroiliitis[ICD9: 720.2] Chantell Garcia MD, [facility] CPT-4: 43106 12/28/2011 ([id number]) 83821 EST. PATIENT, LEVEL IV Diagnosis: DIABETES TYPE II[SNOMED: 165734882] Diagnosis: ESSENTIAL HYPERTENSION[SNOMED: 15621210] Daisy Garcia MD, [facility] CPT-4: 14966 12/20/2011 ([id number]) 71692 EST. PATIENT, LEVEL IV Diagnosis: ESSENTIAL HYPERTENSION[SNOMED: 81276610] Diagnosis: DIABETES TYPE II[SNOMED: 802014295] Diagnosis: PAIN IN LIMB[ICD9: 729.5] Diagnosis: LUMBAGO[ICD9: 724.2] Diagnosis: Sacroiliitis[ICD9: 720.2] [facility] CPT-4: 09819 08/23/2011 06115 EST. PATIENT, LEVEL III Diagnosis: Sacroiliitis[ICD9: 720.2] Diagnosis: Right sided sciatica[ICD9: 724.3] Diagnosis: B-COMPLEX DEFIC NEC[ICD9: 266.2] [facility] CPT-4: 82875 05/23/2011 04672 EST. PATIENT, LEVEL IV Diagnosis: DIABETES TYPE II[SNOMED: 667801079] Diagnosis: ESSENTIAL HYPERTENSION[SNOMED: 40572132] Diagnosis: Feces incontinence[ICD9: 787.60] Daisy Garcia MD, [facility] CPT-4: 27134 04/26/2011 Plan of Care Planned Activity Notes Codes Status Date Appointment: Nurse Visit 08/12/2018 Patient Education: Patient Medication Summary Completed 08/12/2018 Patient Education: Diabetes Completed 08/12/2018 Visit Plan: DM-IPRO placed today to evaluate patient's blood sugars to be able to more effectively manage diabetes -instructed patient to continue to monitor blood sugars as directed and keep log of food intake - patient verbalized understanding of plan. 08/08/2018 Appointment: [facility]ant[facility] Singh [phone] ([facility] min) [facility] 08/08/2018 Patient Education: Patient Medication Summary Completed 08/08/2018 Patient Education: Diabetes Completed 08/08/2018 Visit Plan: Hypertension - well controlled - continue with current medications, continue with no added salt diet. Pt has been encouraged to exercise daily. The pt has been advised to call the office if there are any acute concerns about change in blood pressure readings at home. Diabetes Mellitus - Uncontrolled - per recent FSBS reports. Patient to return tomorrow for IPRO placement. I have recommended for the patient to [...] to allow for greater blood glucose control. CKD stage 3-patient is seeing Dr Shields -stopped glipizide and byetta - monitor labs 08/05/2018 Visit Plan: Hypertension - well controlled - continue with current medications, continue with no added salt diet. Pt has been encouraged to exercise daily. The pt has been advised to call the office if there are any acute concerns about change in blood pressure readings at home. Diabetes Mellitus - Uncontrolled - per recent FSBS reports. Patient to return tomorrow for IPRO placement. I have recommended for the patient to [...] to allow for greater blood glucose control. CKD stage 3-patient is seeing Dr Shields -kirsten glipizide and byetta - monitor labs 08/05/2018 Appointment: Chantell Singh WPtel: [phone] [phone] (30 min) Complex 08/05/2018 Patient Education: Patient Medication Summary Completed 08/05/2018 Patient Education: Diabetes Completed 08/05/2018 Patient Education: Hypertension Completed 08/05/2018 Visit Plan: Low back pain- The pt [...] they worsen. 05/29/2018 Appointment: [phone] [facility] (15 min) Moderate 05/29/2018 Patient Education: Patient [...] at home. 01/01/2018 Appointment: Daisy Garcia WPtel: [facility] (15 min) Moderate 01/01/2018 Patient Education: Patient [...] the weekend. 12/27/2017 App[facility]ment: [phone] ([facility] min) Moderate 12/27/2017 Patient Education: Patient [...] in clinic. 12/18/2017 Appointment: Daisy Garcia WPtel: [facility] (15 min) Moderate 12/18/2017 Patient Education: Patient Medication Summary Completed 12/18/2017 Care Plan: COMPLETE CBC AUTOMATED LOINC : 14727-0 Pending 12/18/2017 Visit Plan: Left knee pain - will have pt use RICE - Rest, Ice, Compression, Elevation - will order x-ray - The pt is to use prn antiinflammatories to manage acute pain. The patient is to call the office if the pain is worsening or does not improve. 12/13/2017 Appointment: Yady Harper WPtel: [facility] [place] (30 min) Complex 12/13/2017 Patient Education: Patient Medication Summary Completed 12/13/2017 Care Plan: X-RAY EXAM OF KNEE 3 LOINC : 73906-4 Pending 12/13/2017 Appointment: Injection 11/20/2017 Patient Education: Patient Medication Summary Completed 11/20/2017 Appointment: Daisy [phone] [place] (15 min) Moderate 09/18/2017 Appointment: Injection [...] shot today. 06/18/2017 Appointment: Daisy Garcia WPtel: [facility] (15 min) Moderate 06/18/2017 Patient Education: Patient [...] 5 days 06/07/2017 Appointment: Daisy Garcia WPtel: [facility] (15 min) Moderate 06/07/2017 Patient Education: Patient Medication Summary Completed 06/07/2017 Patient Education: Obesity Completed 06/07/2017 Appointment: Injection 05/09/2017 Patient Education: Patient Medication Summary Completed 05/09/2017 Appointment: Daisy Garcia WPtel: [facility] (15 min) Moderate 04/26/2017 Patient Education: Patient [...] cardizem 04/16/2017 Appointment: [phone] [place] (15 min) Moderate 04/16/2017 Appointment: [phone] [place] (15 min) Moderate 04/16/2017 Patient Education: [...] controlled. 12/26/2016 Appointment: Daisy Garcia WPtel: [phone] [facility] (15 min) Moderate 12/26/2016 Patient Education: Patient Medication Summary Completed 12/26/2016 Appointment: Injection 11/14/2016 Patient Education: Patient Medication Summary Completed 11/14/2016 Visit Plan: Bronchitis - acute case of bronchitis identified. Pt has been given antibiotics, breathing treatments as appropriate, and pt has been instructed to call if symptoms are not improved, or if symptoms acutely worsen. 09/07/2016 Appointment: Chantell Singh WPtel: [phone] [phone] (30 min) Complex 09/07/2016 Patient Education: Patient [...] improvement. 08/29/2016 Appointment: Daisy [phone] (15 min) Moderate 08/29/2016 Patient Education: Patient Medication Summary Completed 08/29/2016 Patient Education: Obesity Completed 08/29/2016 Appointment: Daisy Garcia WPtel: [phone] [facility] (15 min) Moderate 08/22/2016 Appointment: Jose Daisy WPtel: [phone] [facility] (15 min) Moderate 08/02/2016 Appointment: Chantell Singh WPtel: [phone] [place] (30 min) Complex 08/02/2016 [...] allergy spray. 06/12/2016 Appointment: Yady Harper WPtel: [facility] (15 min) Moderate 06/12/2016 Patient Education: Patient [...] the office 05/04/2016 Appointment: Chantell Singh WPtel: [phone] [phone] [place] (15 min) Moderate 05/04/2016 [...] cream. 03/30/2016 Appointment: Daisy Garcia WPtel: [phone] [facility] (15 min) Moderate 03/30/2016 Patient Education: Patient Medication Summary Completed 03/30/2016 Patient Education: Hypertension Completed 03/30/2016 Appointment: Injection 03/17/2016 Patient Education: Patient Medication Summary Completed 03/17/2016 Appointment: Injection 02/15/2016 Patient Education: Patient Medication Summary Completed 02/15/2016 Appointment: Daisy [phone] [place] (15 min) Moderate 01/26/2016 [...] acute concerns. 11/30/2015 Appointment: Daisy Garcia WPtel: [phone] [phone] (15 min) Moderate 11/30/2015 Patient Education: Patient Medication Summary Completed 11/30/2015 Patient Education: Obesity Completed 11/30/2015 Appointment: [phone] (15 min) Moderate 10/26/2015 Visit [...] home. 06/28/2015 Appointment: Daisy [phone] (15 min) Moderate 06/28/2015 Patient [...] without resting. 02/23/2015 Appointment: Daisy Garcia [facility]Ptel: [facility] Follow up 02/23/2015 Patient Education: Patient Medication Summary Completed 02/23/2015 Patient Education: Hypertension Completed 02/23/2015 Care Plan: SCREENINGMAMMOGRAPHYDIGITAL LOINC : 24779-2 Ordered 02/23/2015 Visit Plan: Depression - uncontrolled [...] Care Plan: COMPLETE CBC AUTOMATED LOINC : 55724-3 Ordered 01/08/2015 Appointment: Injection 12/08/2014 Patient Education: [...] diarrhea. 09/24/2014 Appointment: Daisy [facility]el[phone] [facility] Follow [facility] 09/24/2014 Patient Education: Patient Medication Summary Completed 09/24/2014 Patient Education: Hypertension Completed 09/24/2014 Appointment: Daisy [facility]el[phone] [facility] [place] Injection 08/24/2014 Patient Education: [...] warmth, discharge. 05/01/2014 Appointment: Daisy Garcia WPtel: [facility] [place] Follow up 05/01/2014 Patient Education: Patient Medication Summary Completed 05/01/2014 Appointment: Daisy Garcia WPtel: [address] [place], [place] [phone] [place] Injection 04/27/2014 Patient Education: Patient Medication [...] for pain 04/03/2014 Appointment: Chantell Singh WPtel: [facility]5 [phone] [place] Follow up 04/03/2014 Patient Education: Patient Medication Summary Completed 04/03/2014 Patient Education: Hypertension Completed 04/03/2014 Visit Plan: vitamin b12 injection 03/24/2014 Appointment: Daisy Garcia WPtel: [facility] [place] Injection 03/24/2014 Patient Education: Patient Medication Summary Completed 03/24/2014 Appointment: Daisy Garcia WPtel: [facility] [place] Follow up 03/23/2014 Appointment: Daisy [facility]el[phone] [facility] [place] Injection 02/24/2014 Patient Education: Patient Medication Summary Completed 02/24/2014 Appointment: [facility] Singh [phone] [phone] [place] Injection 01/09/2014 Patient Education: Patient Medication [...] oral supplementation. 11/24/2013 Appointment: Daisy Garcia WPtel: [facility] [place] Follow up 11/24/2013 Patient Education: Patient Medication Summary Completed 11/24/2013 Patient Education: Hypertension Completed 11/24/2013 Appointment: Daisy Garcia WPtel: [facility] [place] Follow up 11/12/2013 Appointment: Daisy Garcia WPtel: [facility] [place] Follow up 10/27/2013 Appointment: [facility]ant[facility] Singh [phone] [phone] [place] Injection 09/18/2013 Patient Education: Patient Medication Summary Completed 09/18/2013 Appointment: [facility]ant[facility] Singh [facility]el[phone] [phone] [place] Injection 08/22/2013 Patient Education: Patient Medication [...] today 07/28/2013 Appointment: Daisy Garcia WPtel: [phone] [facility] [place] [place] 07/28/2013 Patient Education: Patient Medication Summary Completed 07/28/2013 Patient Education: Hypertension Completed 07/28/2013 Appointment[phone] [id number] [place] Injection 06/20/2013 Visit Plan: Diabetes Mellitus [...] edema. 06/16/2013 Appointment: Daisy Garcia WPtel: [phone] [facility] [place] Follow up 06/16/2013 Patient Education: Patient Medication Summary Completed 06/16/2013 Patient Education: Hypertension Completed 06/16/2013 Appointment: [phone] [id number] [place] Injection 05/21/2013 Patient Education: Patient Medication Summary Completed 05/21/2013 [phone] [place] [facility] 04/23/2013 Patient Education: Patient Medication Summary Completed 04/23/2013 [facility]ment: [phone] [place] [facility] 03/24/2013 Patient Education: Patient Medication Summary Completed 03/24/2013 [facility]ment: [phone] [place] [facility] 02/20/2013 Patient Education: [...] peripheral edema. 01/22/2013 Appointment: Daisy Garcia [facility]el[facility] [place] Follow [facility] 01/22/2013 Patient Education: Patient Medication Summary Completed 01/22/2013 Patient Education: Hypertension Completed 01/22/2013 [facility]ment: [phone] [place] [facility] 01/21/2013 Patient Education: Patient Medication Summary Completed 12/19/2012 [facility]ment: [phone] [place] [facility] 11/22/2012 App[facility]ment: [phone] [place] [facility] 11/20/2012 Patient Education: Patient Medication Summary Completed 11/20/2012 App[facility]ment[phone] [id number] [place] 11/08/2012 [facility]ment: [phone] [place] [facility] 10/23/2012 Patient Education: [...] Completed 10/02/2012 Appointment: Chantell Singh WPtel: [phone] [place] [id number] Lab Draw 09/16/2012 Patient Education: Patient Medication [...] office. 08/06/2012 Appointment: Chantell Singh WPtel: [phone] [phone] [facility] 08/06/2012 Patient Education: Patient Medication Summary Completed 08/06/2012 Patient Education: Patient Medication Summary Completed 07/19/2012 Visit Plan: Joint Injection - Pt was given post - injection instructions. The pt has been advised to use antiinflammatories post injection today, ice to the injected site, call if redness, warmth, or increased pain occurs at the site of injection. 07/10/2012 Appointment: Daisy Garcia WPtel: [facility] [place] Injection 07/10/2012 Patient Education: Patient Medication [...] controlled. 07/04/2012 Appointment: Daisy Garcia WPtel: [phone] [facility] Follow up 07/04/2012 Patient Education: Patient Medication Summary Completed 07/04/2012 Patient Education: Hypertension Completed 07/04/2012 Appointment: [facility] Garcia [facility]el[facility] [place] [facility] 06/19/2012 Patient Education: [...] office. 05/22/2012 Appointment: [phone] [id number] Follow up 05/22/2012 Appointment: [phone] [id number] Follow up 05/22/2012 Patient Education: Patient Medication [...] office 04/22/2012 Appointment: Chantell Singh WPtel: [phone] [phone] [place] Established Patient Preventative visit 04/22/2012 Patient Education: Patient Medication Summary Completed 04/22/2012 Patient Education: High Blood Pressure: Essential Hypertension Completed 2011 Appointment: [phone] [phone] [place] 03/19/2012 Patient Education: Patient Medication Summary Completed 03/19/2012 [facility]ment: [phone] [place] [facility] 02/15/2012 Patient Education: Patient Medication Summary Completed 02/15/2012 App[facility]ment: [phone] [place] 01/18/2012 Patient Education: [...] worse. 12/28/2011 Appointment: Chantell Singh WPtel: [phone] [phone] [place] Other 12/28/2011 Patient Education: Patient Medication [...] shot today. 12/20/2011 Appointment: Daisy Garcia [facility]Ptel: [facility] [place] Other 12/20/2011 Patient Education: Patient Medication Summary Completed 12/20/2011 Patient Education: High Blood Pressure: Essential Hypertension Completed 2011 Appointment: [phone] [id number] [place] 11/07/2011 Patient Education: Patient Medication Summary Completed 11/07/2011 [facility]ment: [phone] [place] [facility] 10/03/2011 Patient Education: Patient Medication Summary Completed 10/03/2011 App[facility]ment: [facility]el[phone] [place] 08/28/2011 Visit Plan: [...] left today 08/23/2011 Appointment: Daisy Garcia WPtel: [facility] Other 08/23/2011 Patient Education: Patient Medication Summary Completed 08/23/2011 Patient Education: High Blood Pressure: Essential Hypertension Completed 2011 Appointment: Chantell Singh WPtel: [phone] [place] Injection 07/28/2011 Patient Education: Patient Medication Summary Completed 07/28/2011 Visit Plan: b12 injection 06/29/2011 Appointment: Chantell Singh WPtel: [facility]5 [phone] [place] Injection 06/29/2011 Patient Education: Patient Medication [...] the office 05/23/2011 Appointment: Chantell Singh WPtel: [phone] Other 05/23/2011 Patient Education: Patient Medication Summary [...] DAILY IRON. 04/26/2011 Appointment: Daisy Garcia [facility]Ptel: [facility] [place] 04/26/2011 Patient Education: Patient [...] the byetta. Once pt runs out of bymakenzie, she [...] Call if symptoms do not show improvement. IPRO placement tomorrow . Hypertension - well controlled - continue with current medications, continue with no added salt diet. Pt has been encouraged to exercise daily. The pt has been advised to call the office if there are any acute concerns about change in blood pressure readings at home. Diabetes Mellitus - Uncontrolled - per recent FSBS reports. Patient to return tomorrow for IPRO placement. I have recommended for the patient to [...] to allow for greater blood glucose control. CKD stage 3-patient is seeing Dr Shields -stopped glipizide and byetta -monitor labs IPRO placement tomorrow . Hypertension - well controlled - continue with current medications, continue with no added salt diet. Pt has been encouraged to exercise daily. The pt has been advised to call the office if there are any acute concerns about change in blood pressure readings at home. Diabetes Mellitus - Uncontrolled - per recent FSBS reports. Patient to return tomorrow for IPRO placement. I have recommended for the patient to [...] to allow for greater blood glucose control. CKD stage 3-patient is seeing Dr Shields -stopped glipizide and byetta -monitor labs . Hypertension - well controlled - continue [...] or if they worsen. . Hypertension - well controlled - [...] change in blood pressure readings at home. RETURN SUNDAY FOR IPRO REMOVAL -BRING LOG . DM-IPRO placed today to evaluate patient's blood sugars to be able to more effectively manage diabetes -instructed patient to continue to monitor blood sugars as directed and keep log of food intake -patient verbalized understanding of plan. . Sacroilitis with sciatica-discussed natural and expected [...]
--- OUTSIDE RECORDS SUMMARY | 2018-10-02 06:51 | XMS REPORT | CCD ---
Author Author Daisy Garcia Organization [facility] Address [address] [place] [address] Phone Care Team Providers Care Hair Weaver Name Role Phone Daisy Garcia PP Unavailable CCM Unavailable Summary Purpose Interface Exchange Insurance Providers Payer name Policy type / Coverage type Covered constitution party ID Effective Begin Date Effective End Date WPS Medicare Part B Medicare Part B [id number] 2018 Unknown [employer] [employer] Medicare Part B [id number] Unknown Family history Sister Diagnosis Age At [...] 1 daughter 04/21/[address]: 385638198 Nonsmoker 04/21/[address]: 368800956 Never drinks alcohol 04/21/2011 Has the patient [...] Start Date Stop Date Status Fill Instructions Toujeo Max U-300 SoloStar 300 unit/mL (3 mL) subcutaneous insulin pen RxNorm: 8777776 10 Unit(s) SQ QHS increase by 4 units every 3 days until BS under 150 08/30/2018 02/25/2019 Active Toujeo Max U-300 SoloStar 300 unit/mL (3 mL) subcutaneous insulin pen RxNorm: 4930628 10 Unit(s) SQ QHS increase by 4 units every 3 days until BS under 150 08/30/2018 08/29/2018 Inactive Synthroid 50 mcg tablet RxNorm: 096261 TAKE ONE TABLET BY MOUTH EVERY DAY. 08/13/2018 04/09/2019 Active Tricor 145 mg tablet RxNorm: 816895 TAKE ONE TABLET BY MOUTH DAILY 08/13/2018 11/10/2018 Active metoprolol succinate ER 25 mg capsule sprinkle, ext. release 24 hr RxNorm: 4194084 1 Capsule(s) PO daily 08/05/2018 Active Lasix 20 mg tablet RxNorm: 556783 TAKE ONE TABLET BY MOUTH DAILY NEEDED FOR SWELLING. TAKE POTASSIUM WITH EACH DOSE. 08/02/2018 04/28/2019 Active potassium chloride ER 20 mEq tablet,extended release(part/ cryst) RxNorm: 3643937 TAKE ONE TABLET BY MOUTH DAILY WHEN YOU TAKE LASIX (FUROSEMIDE) 08/02/2018 07/27/2019 Active Lasix 20 mg tablet RxNorm: 009961 Tablet(s) TAKE ONE TABLET BY MOUTH DAILY NEEDED FOR SWELLING. TAKE POTASSIUM WITH EACH DOSE 201808/01/2018 Inactive potassium chloride ER 20 mEq tablet,extended release(part/ cryst) RxNorm: 4464532 Tablet(s) TAKE ONE TABLET BY MOUTH DAILY WHEN YOU TAKE LASIX (FUROSEMIDE) 08/02/2018 08/01/2018 Inactive spironolactone 25 mg tablet RxNorm: 953073 Tablet(s) TAKE ONE TABLET BY MOUTH TWICE A DAY 06/11/2018 08/07/2018 Inactive Zorvolex 35 mg capsule RxNorm: 9075981 1 Capsule(s) PO TID 07/201706/28/2018 Inactive Lexapro 5 mg tablet RxNorm: 485814 TAKE ONE TABLET BY MOUTH EVERY EVENING 05/30/2018 08/22/2019 Active Zorvolex 35 mg capsule RxNorm: 3859587 1 Capsule(s) PO TID 07/201705/29/2018 Inactive Kenalog 40 mg/mL suspension for injection RxNorm: 8197593 1 Milliliter(s) Inj 05/29/2018 05/29/2018 Inactive Lomotil 2.5 mg-0.025 mg tablet RxNorm: 7095899 Tablet(s) PO TAKE ONE TABLET BY MOUTH EVERY 8 HOURS NEEDED 05/08/2018 07/06/2018 Inactive warfarin 2 mg tablet RxNorm: 049226 1 Tablet(s) PO daily 3 days per week, 1/2 Tablet PO 4 days per week- Dr. Andrews manages 05/07/2018 No Stop Date Active cyanocobalamin (vit B-12) 1,000 mcg/mL injection solution RxNorm: 435998 1 Milliliter(s) Inj 05/07/2018 05/07/2018 Inactive Lasix 20 mg tablet RxNorm: 464607 TAKE ONE TABLET BY MOUTH DAILY NEEDED FOR SWELLING. TAKE POTASSIUM WITH EACH DOSE 04/30/2018 08/01/2018 Inactive Synthroid 50 mcg tablet RxNorm: 127171 TAKE ONE TABLET BY MOUTH EVERY DAY. 04/23/2018 08/12/2018 Inactive cyanocobalamin (vit B-12) 1,000 mcg/mL injection solution RxNorm: 961098 Milliliter(s) Inj 04/04/2018 04/04/2018 Inactive glipizide 10 mg tablet RxNorm: 885749 Tablet(s) TAKE ONE TABLET BY MOUTH TWICE A DAY 04/03/2018 07/16/2018 Inactive amlodipine 5 mg tablet RxNorm: 650356 TAKE ONE TABLET BY MOUTH TWICE A DAY 03/12/2018 08/07/2018 Inactive potassium chloride ER 20 mEq tablet,extended release(part/ cryst) RxNorm: 3864236 TAKE ONE TABLET BY MOUTH DAILY WHEN YOU TAKE LASIX (FUROSEMIDE) 03/12/2018 08/01/2018 Inactive spironolactone 25 mg tablet RxNorm: 781292 TAKE ONE TABLET BY MOUTH TWICE A DAY 03/11/2018 06/10/2018 Inactive cyanocobalamin (vit B-12) 1,000 mcg/mL injection solution RxNorm: 076214 1 Milliliter(s) Inj 03/04/2018 03/04/2018 Inactive cyanocobalamin (vit B-12) 1,000 mcg/mL injection solution RxNorm: 378057 1 Milliliter(s) Inj 01/29/2018 01/29/2018 Inactive amlodipine 5 mg tablet RxNorm: 429843 1 Tablet(s) PO QPM 201703/11/2018 Inactive amiodarone 200 mg tablet RxNorm: 557229 1/2 Tablet(s) PO daily 01/29/2018 08/01/2018 Inactive Lexapro 5 mg tablet RxNorm: 020553 1 Tablet(s) PO QPM 201705/29/2018 Inactive warfarin 2 mg tablet RxNorm: 018030 1 Tablet(s) PO daily 4 days per week, 1/2 Tablet PO 3 days per week 01/29/201805/06 Inactive Tenex 1 mg tablet RxNorm: 493699 TAKE ONE TABLET BY MOUTH DAILY 01/21/2018 01/15/2019 Active acyclovir 800 mg tablet RxNorm: 533805 1 Tablet(s) PO TID use if needed for mouth sores 01/01/2018 01/14/2018 Inactive simvastatin 20 mg tablet RxNorm: 538643 TAKE ONE TABLET BY MOUTH EVERY NIGHT AT BEDTIME 12/27/2017 01/28/2018 Inactive acyclovir 800 mg tablet RxNorm: 478856 1 Tablet(s) PO TID 12/2712/31/2017 Inactive metoprolol succinate ER 50 mg tablet,extended release 24 hr RxNorm: 205887 1 Tablet(s) PO daily 12/18/2017 07/15/2018 Inactive cyanocobalamin (vit B-12) 1,000 mcg/mL injection solution RxNorm: 405618 Milliliter(s) Inj 12/18/2017 12/18/2017 Inactive prednisone 20 mg tablet RxNorm: 394970 1 Tablet(s) PO BID 12/1312/17/2017 Inactive spironolactone 25 mg tablet RxNorm: 352952 TAKE ONE TABLET BY MOUTH TWICE A DAY 12/03/2017 03/02/2018 Inactive hydrocodone 5 mg-acetaminophen 325 mg tablet RxNorm: 802412 1-2 Tablet(s) PO Q4 PRN as needed pain 11/20/2017 No Stop Date Active cyanocobalamin (vit B-12) 1,000 mcg/mL injection solution RxNorm: 607055 1 Milliliter(s) Inj 11/20/2017 11/20/2017 Inactive Lomotil 2.5 mg-0.025 mg tablet RxNorm: 2715466 Tablet(s) PO TAKE ONE TABLET BY MOUTH EVERY 8 HOURS NEEDED 11/07/2017 01/04/2018 Inactive Synthroid 50 mcg tablet RxNorm: 741865 TAKE ONE TABLET BY MOUTH EVERY DAY. 10/16/2017 04/13/2018 Inactive potassium chloride ER 20 mEq tablet,extended release(part/ cryst) RxNorm: 2921684 TAKE ONE TABLET BY MOUTH DAILY WHEN YOU TAKE LASIX (FUROSEMIDE) 09/17/2017 03/11/2018 Inactive Lasix 20 mg tablet RxNorm: 006499 Tablet(s) TAKE ONE TABLET BY MOUTH EVERY DAY NEEDED FOR SWELLING. TAKE POTASSIUM WITH EACH DOSE 201701/07/2018 Inactive glipizide 10 mg tablet RxNorm: 025890 TAKE ONE TABLET BY MOUTH TWICE A DAY 08/28/2017 04/02/2018 Inactive Request already responded to by other means (e.g. phone or fax) glipizide 10 mg tablet RxNorm: 581334 Tablet(s) TAKE ONE TABLET BY MOUTH TWICE A DAY 08/23/2017 08/27/2017 Inactive cyanocobalamin (vit B-12) 1,000 mcg/mL injection solution RxNorm: 047843 1 Milliliter(s) Inj 08/21/2017 08/21/2017 Inactive Synthroid 50 mcg tablet RxNorm: 299087 TAKE ONE TABLET BY MOUTH EVERY DAY. 08/15/2017 10/13/2017 Inactive metformin ER 500 mg tablet,extended release 24 hr RxNorm: 809722 TAKE TWO TABLETS BY MOUTH TWICE A DAY 07/31/20172017 Inactive Tricor 145 mg tablet RxNorm: 528460 TAKE ONE TABLET BY MOUTH DAILY 07/31/2017 11/27/2017 Inactive spironolactone 25 mg tablet RxNorm: 757643 TAKE ONE TABLET BY MOUTH TWICE A DAY 07/31/2017 12/02/2017 Inactive Tenex 1 mg tablet RxNorm: 398956 TAKE ONE TABLET BY MOUTH DAILY 07/20/2017 01/15/2018 Inactive cyanocobalamin (vit B-12) 1,000 mcg/mL injection solution RxNorm: 355958 1 Milliliter(s) Inj 07/18/2017 07/18/2017 Inactive Flonase Allergy Relief 50 mcg/actuation nasal spray, suspension RxNorm: 5502493 1 [place] NASAL BID 06/18/20172017 Inactive Byetta 10 mcg/dose(250 mcg/mL)2.4 mL subcutaneous pen injector RxNorm: 223127 INJECT 10 MCG UNDER THE SKIN TWO TIMES A DAY ( START AFTER 5 MCG DOSE IS COMPLETE ) 06/18/2017 04/13/2018 Inactive potassium chloride ER 20 mEq tablet,extended release(part/ cryst) RxNorm: 2128134 TAKE ONE TABLET BY MOUTH DAILY WHEN YOU TAKE LASIX (FUROSEMIDE) 06/18/2017 09/15/2017 Inactive Kenalog 40 mg/mL suspension for injection RxNorm: 3290413 1 Milliliter(s) Inj 06/18/2017 06/18/2017 Inactive cyanocobalamin (vit B-12) 1,000 mcg/mL injection solution RxNorm: 440128 1 Milliliter(s) Inj 06/18/2017 06/18/2017 Inactive Lasix 20 mg tablet RxNorm: 467451 Tablet(s) TAKE ONE TABLET BY MOUTH EVERY DAY NEEDED FOR SWELLING. TAKE POTASSIUM WITH EACH DOSE 201609/09/2017 Inactive cyanocobalamin (vit B-12) 1,000 mcg/mL injection solution RxNorm: 830973 1 Milliliter(s) Inj 05/09/2017 05/09/2017 Inactive cyanocobalamin (vit B-12) 1,000 mcg/mL injection solution RxNorm: 780210 1 Milliliter(s) Inj 04/04/2017 04/04/2017 Inactive metformin ER 500 mg tablet,extended release 24 hr RxNorm: 209149 TAKE TWO TABLETS BY MOUTH TWICE A DAY 03/01/20172016 Inactive Kenalog 40 mg/mL suspension for injection RxNorm: 5934211 1 Milliliter(s) Inj 02/23/2017 02/23/2017 Inactive amlodipine 5 mg tablet RxNorm: 113937 TAKE ONE TABLET BY MOUTH TWICE A DAY 02/22/2017 11/18/2017 Inactive glipizide 10 mg tablet RxNorm: 724020 TAKE ONE TABLET BY MOUTH TWICE A DAY 02/12/2017 08/10/2017 Inactive cyanocobalamin (vit B-12) 1,000 mcg/mL injection solution RxNorm: 462955 Milliliter(s) Inj 01/23/2017 01/23/2017 Inactive Synthroid 50 mcg tablet RxNorm: 252640 TAKE ONE TABLET BY MOUTH EVERY DAY. 12/21/2016 06/18/2017 Inactive potassium chloride ER 20 mEq tablet,extended release(part/ cryst) RxNorm: 3190387 TAKE ONE TABLET BY MOUTH DAILY WHEN YOU TAKE LASIX (FUROSEMIDE) 12/21/2016 04/19/2017 Inactive Tricor 145 mg tablet RxNorm: 356249 TAKE ONE TABLET BY MOUTH DAILY 12/21/2016 06/06/2017 Inactive Lasix 20 mg tablet RxNorm: 558124 TAKE ONE TABLET BY MOUTH EVERY DAY NEEDED FOR SWELLING. TAKE POTASSIUM WITH EACH DOSE 12/11/2016 04/09/2017 Inactive cyanocobalamin (vit B-12) 1,000 mcg/mL injection solution RxNorm: 589160 1 Milliliter(s) Inj 11/14/2016 11/14/2016 Inactive simvastatin 20 mg tablet RxNorm: 194235 TAKE ONE TABLET BY MOUTH EVERY NIGHT AT BEDTIME 10/23/2016 04/15/2017 Inactive Tenex 1 mg tablet RxNorm: 815368 TAKE ONE TABLET BY MOUTH DAILY 10/16/2016 11/14/2016 Inactive glipizide 10 mg tablet RxNorm: 385029 TAKE ONE TABLET BY MOUTH TWICE A DAY 09/20/2016 02/11/2017 Inactive doxycycline hyclate 100 mg capsule RxNorm: 4469898 1 Capsule(s) PO BID 09/12/2016 09/18/2016 Inactive doxycycline hyclate 100 mg capsule RxNorm: 4860833 1 Capsule(s) PO BID 09/12/2016 09/11/2016 Inactive Phenergan with Codeine Syrup RxNorm: 5-10 Milliliter(s) PO Q6 PRN 09/07/2016 No Stop Date Active prednisone 20 mg tablet RxNorm: 896907 1 Tablet(s) PO BID 09/0709/11/2016 Inactive Kenalog 40 mg/mL suspension for injection RxNorm: 3532164 1 Milliliter(s) Inj 09/07/2016 09/07/2016 Inactive Tessalon Perles 100 mg capsule RxNorm: 302640 1 Capsule(s) PO TID PRN 09/01/2016 09/20/2016 Inactive Zyrtec 10 mg capsule RxNorm: 1935322 1 Capsule(s) PO daily 01/28/2018 Inactive Flonase Allergy Relief 50 mcg/actuation nasal spray, suspension RxNorm: 9561054 1 [place] NASAL BID 08/29/20162016 Inactive cyanocobalamin (vit B-12) 1,000 mcg/mL injection solution RxNorm: 804293 1 Milliliter(s) Inj 08/29/2016 08/29/2016 Inactive metformin ER 500 mg tablet,extended release 24 hr RxNorm: 530846 Tablet(s) TAKE TWO TABLETS BY MOUTH TWICE A DAY 08/28/2016 02/23/2017 Inactive Lopressor 100 mg tablet RxNorm: 020918 TAKE ONE TABLET BY MOUTH DAILY 06/27/2016 04/15/2017 Inactive cetirizine 10 mg tablet RxNorm: 9565260 1 Tablet(s) PO daily 07/11/2016 Inactive Flonase Allergy Relief 50 mcg/actuation nasal spray, suspension RxNorm: 5885636 1 [place] NASAL BID 06/12/20162016 Inactive cyanocobalamin (vit B-12) 1,000 mcg/mL injection solution RxNorm: 856532 Milliliter(s) Inj 06/12/2016 06/12/2016 Inactive spironolactone 25 mg tablet RxNorm: 967236 TAKE ONE TABLET BY MOUTH TWICE A DAY 06/06/2016 03/02/2017 Inactive Request already responded to by other means (e.g. phone or fax) spironolactone 25 mg tablet RxNorm: 629397 Tablet(s) TAKE ONE TABLET BY MOUTH TWICE A DAY 05/29/2016 06/05/2016 Inactive ceftriaxone 500 mg solution for injection RxNorm: 4644513 2 Milliliter(s) Inj 05/04/2016 05/04/2016 Inactive cyanocobalamin (vit B-12) 1,000 mcg/mL injection solution RxNorm: 532396 Milliliter(s) Inj 05/04/2016 05/04/2016 Inactive Cipro 500 mg tablet RxNorm: 695427 1 Tablet(s) PO BID 201505/10/2016 Inactive OneTouch Ultra Test strips RxNorm: TEST DAILY 04/24/2016 04/18/2017 Inactive Byetta 10 mcg/dose(250 mcg/mL)2.4 mL subcutaneous pen injector RxNorm: 102802 INJECT 10 MCG UNDER THE SKIN TWO TIMES A DAY ( START AFTER 5 MCG DOSE IS COMPLETE ) 04/18/2016 03/13/2017 Inactive Lasix 20 mg tablet RxNorm: 778146 TAKE ONE TABLET BY MOUTH EVERY DAY NEEDED FOR SWELLING. TAKE POTASSIUM WITH EACH DOSE 04/07/2016 09/03/2016 Inactive potassium chloride ER 20 mEq tablet,extended release(part/ cryst) RxNorm: 9059846 TAKE ONE TABLET BY MOUTH DAILY WHEN YOU TAKE LASIX (FUROSEMIDE) 04/07/2016 09/03/2016 Inactive triamcinolone acetonide 0.5 % topical cream RxNorm: 2469865 1 Application TOP BID to lesions on buttock 03/30/20162015 Inactive metformin ER 500 mg tablet,extended release 24 hr RxNorm: 653980 TAKE TWO TABLETS BY MOUTH TWICE A DAY 03/23/20162016 Inactive cyanocobalamin (vit B-12) 1,000 mcg/mL injection solution RxNorm: 891862 Milliliter(s) Inj 03/17/2016 03/17/2016 Inactive glipizide 10 mg tablet RxNorm: 882237 TAKE ONE TABLET BY MOUTH TWICE A DAY 03/17/2016 04/02/2018 Inactive Request already responded to by other means (e.g. phone or fax) glipizide 10 mg tablet RxNorm: 632808 Tablet(s) TAKE ONE TABLET BY MOUTH TWICE A DAY 03/13/2016 03/16/2016 Inactive Tricor 145 mg tablet RxNorm: 011470 TAKE ONE TABLET BY MOUTH ONCE A DAY 02/18/2016 02/11/2017 Inactive Request already responded to by other means (e.g. phone or fax) amlodipine 5 mg tablet RxNorm: 518034 TAKE ONE TABLET BY MOUTH TWICE A DAY 02/18/2016 05/06/2018 Inactive Request already responded to by other means (e.g. phone or fax) cyanocobalamin (vit B-12) 1,000 mcg/mL injection solution RxNorm: 656310 1 Milliliter(s) Inj 02/15/2016 02/15/2016 Inactive amlodipine 5 mg tablet RxNorm: 503048 Tablet(s) TAKE ONE TABLET BY MOUTH TWICE A DAY 02/14/2016 02/17/2016 Inactive Tricor 145 mg tablet RxNorm: 598723 1 Tablet(s) PO daily TAKE ONE TABLET BY MOUTH ONCE A DAY 02/14/2016 02/17/2016 Inactive Synthroid 50 mcg tablet RxNorm: 939115 TAKE ONE TABLET BY MOUTH EVERY DAY. 01/31/2016 08/27/2016 Inactive hydrocodone 5 mg-acetaminophen 325 mg tablet RxNorm: 270823 1-2 Tablet(s) PO Q4 PRN as needed pain 01/28/2016 11/19/2017 Inactive cyanocobalamin (vit B-12) 1,000 mcg/mL injection solution RxNorm: 674814 Milliliter(s) Inj 01/19/2016 01/19/2016 Inactive metformin ER 500 mg tablet,extended release 24 hr RxNorm: 587935 TAKE TWO TABLETS BY MOUTH TWICE A DAY 01/18/20162015 Inactive cyanocobalamin (vit B-12) 1,000 mcg/mL injection solution RxNorm: 370467 1 Milliliter(s) Inj 12/07/2015 12/07/2015 Inactive metformin ER 500 mg tablet,extended release 24 hr RxNorm: 091008 TAKE TWO TABLETS BY MOUTH TWICE A DAY 10/18/20152015 Inactive simvastatin 20 mg tablet RxNorm: 042804 1 Tablet(s) PO QHS TAKE ONE TABLET BY MOUTH AT BEDTIME 10/08/2015 10/01/2016 Inactive Tenex 1 mg tablet RxNorm: 240204 TAKE ONE TABLET BY MOUTH DAILY 10/04/2015 09/27/2016 Inactive Lopressor 100 mg tablet RxNorm: 067293 TAKE ONE TABLET BY MOUTH DAILY 09/20/2015 06/15/2016 Inactive Diflucan 150 mg tablet RxNorm: 264794 1 Tablet(s) PO daily 02/201609/12/2015 Inactive cyanocobalamin (vit B-12) 1,000 mcg/mL injection kit RxNorm: 923991 kit Inj 09/06/2015 09/06/2015 Inactive gentamicin 0.3 % eye drops RxNorm: 839747 2 Drop(s) OPH QID 02/201609/12/2015 Inactive ceftriaxone 500 mg solution for injection RxNorm: 5741669 Inj 09/06/2015 09/06/2015 Inactive Keflex 500 mg capsule RxNorm: 327395 1 Capsule(s) PO TID 201509/12/2015 Inactive hydrocodone 5 mg-acetaminophen 325 mg tablet RxNorm: 248251 1-2 Tablet(s) PO Q4 PRN as needed pain 08/09/2015 01/27/2016 Inactive Lortab 5 mg-500 mg tablet RxNorm: 744251 1-2 Tablet(s) PO Q4 PRN as needed pain 08/03/2015 08/08/2015 Inactive Diflucan 150 mg tablet RxNorm: 339389 1 Tablet(s) PO daily 07/16/2015 Inactive Lasix 20 mg tablet RxNorm: 657265 TAKE ONE TABLET BY MOUTH EVERY DAY NEEDED FOR SWELLING. TAKE POTASSIUM WITH EACH DOSE 07/13/2015 01/08/2016 Inactive spironolactone 25 mg tablet RxNorm: 447568 TAKE ONE TABLET BY MOUTH TWICE A DAY 07/13/2015 05/07/2016 Inactive potassium chloride ER 20 mEq tablet,extended release(part/ cryst) RxNorm: 276537 TAKE ONE TABLET BY MOUTH DAILY WHEN YOU TAKE LASIX (FUROSEMIDE) 07/13/2015 01/08/2016 Inactive Tessalon Perles 100 mg capsule RxNorm: 923740 1 Capsule(s) PO TID PRN 07/05/2015 08/31/2016 Inactive Keflex 500 mg capsule RxNorm: 823091 1 Capsule(s) PO TID 201407/14/2015 Inactive Kenalog 40 mg/mL suspension for injection RxNorm: 2879067 Milliliter(s) Inj 07/05/2015 07/05/2015 Inactive ceftriaxone 500 mg solution for injection RxNorm: 6381707 Inj 07/05/2015 07/05/2015 Inactive cyanocobalamin (vit B-12) 1,000 mcg/mL injection solution RxNorm: 867725 Milliliter(s) Inj 06/28/2015 06/28/2015 Inactive Synthroid 50 mcg tablet RxNorm: 606374 TAKE ONE TABLET BY MOUTH EVERY DAY. 06/21/2015 11/17/2015 Inactive metformin ER 500 mg tablet,extended release 24 hr RxNorm: 218131 TAKE TWO TABLETS BY MOUTH TWICE A DAY 06/14/20152015 Inactive glipizide 10 mg tablet RxNorm: 341400 TAKE ONE TABLET BY MOUTH TWICE A DAY 05/31/2015 02/24/2016 Inactive cyanocobalamin (vit B-12) 1,000 mcg/mL injection solution RxNorm: 410875 Milliliter(s) Inj 05/13/2015 05/13/2015 Inactive Tricor 145 mg tablet RxNorm: 723956 1 Tablet(s) PO daily TAKE ONE TABLET BY MOUTH ONCE A DAY 05/07/2015 05/06/2015 Inactive Tricor 145 mg tablet RxNorm: 630595 1 Tablet(s) PO daily TAKE ONE TABLET BY MOUTH ONCE A DAY 05/07/2015 01/31/2016 Inactive Tricor 145 mg tablet RxNorm: 980901 TAKE ONE TABLET BY MOUTH ONCE A DAY 05/06/2015 05/06/2015 Inactive Byetta 10 mcg/dose(250 mcg/mL)2.4 mL subcutaneous pen injector RxNorm: 142569 Microgram(s) SQ 10mcg twice daily ( start after 5mcg dose is complete) 04/01/2015 03/25/2016 Inactive Byetta 5 mcg/dose (250 mcg/mL)1.2 mL subcutaneous pen injector RxNorm: 477232 Microgram(s) SQ 5mcg twice daily x 1 month 03/04/2015 04/02/2015 Inactive Byetta 10 mcg/dose(250 mcg/mL)2.4 mL subcutaneous pen injector RxNorm: 783698 Microgram(s) SQ 10mcg twice daily ( start after 5mcg dose is complete) 03/04/2015 03/31/2015 Inactive Byetta 5 mcg/dose (250 mcg/mL)1.2 mL subcutaneous pen injector RxNorm: 297221 Microgram(s) SQ 5mcg twice daily x 1 month 03/04/2015 03/03/2015 Inactive Byetta 10 mcg/dose(250 mcg/mL)2.4 mL subcutaneous pen injector RxNorm: 282170 Microgram(s) SQ 10mcg twice daily ( start after 5mcg dose is complete) 03/04/2015 03/03/2015 Inactive cyanocobalamin (vit B-12) 1,000 mcg/mL injection solution RxNorm: 606062 Milliliter(s) Inj 02/23/2015 02/23/2015 Inactive cyanocobalamin (vit B-12) 1,000 mcg/mL injection solution RxNorm: 293007 Milliliter(s) Inj 01/08/2015 01/08/2015 Inactive simvastatin 20 mg tablet RxNorm: 232108 TAKE ONE TABLET BY MOUTH AT BEDTIME 01/07/2015 10/03/2015 Inactive Lortab 5 mg-500 mg tablet RxNorm: 715058 1-2 Tablet(s) PO Q4 PRN as needed q 4- 6hrs prn pain 12/15/2014 08/02/2015 Inactive Lortab 5 mg-500 mg tablet RxNorm: 210738 1-2 Tablet(s) PO Q4 PRN as needed q 4- 6hrs prn pain 12/15/2014 08/02/2015 Inactive amlodipine 5 mg tablet RxNorm: 818313 TAKE ONE TABLET BY MOUTH TWICE A DAY 12/14/2014 12/13/2014 Inactive amlodipine 5 mg tablet RxNorm: 711023 TAKE ONE TABLET BY MOUTH TWICE A DAY 12/14/2014 03/13/2015 Inactive cyanocobalamin (vit B-12) 1,000 mcg/mL injection solution RxNorm: 301618 Milliliter(s) Inj 12/08/2014 12/08/2014 Inactive Synthroid 50 mcg tablet RxNorm: 054360 TAKE ONE TABLET BY MOUTH EVERY DAY. 10/29/2014 04/26/2015 Inactive Lasix 20 mg tablet RxNorm: 743639 Tablet(s) TAKE ONE TABLET BY MOUTH EVERY DAY NEEDED FOR SWELLING. TAKE POTASSIUM WITH EACH DOSE 201405/25/2015 Inactive potassium chloride ER 20 mEq tablet,extended release(part/ cryst) RxNorm: 672554 Tablet(s) TAKE ONE TABLET BY MOUTH EVERY DAY WHEN YOU TAKE LASIX (FUROSEMIDE) 10/28/2014 05/25/2015 Inactive cyanocobalamin (vit B-12) 1,000 mcg/mL injection solution RxNorm: 430191 Milliliter(s) Inj 10/26/2014 10/26/2014 Inactive OneTouch Ultra Test strips RxNorm: TEST TWO TIMES A DAY 201405/10/2028 Active OneTouch Ultra Test strips RxNorm: 1 Miscellaneous BID 201410/21/2014 Inactive dx: 250.02 Victoza 2-J Luis 0.6 mg/0.1 mL (18 mg/3 mL) subcutaneous pen injector RxNorm: 309222 1.8 Milligram(s) SQ daily 09/24/201402/22 Inactive cyanocobalamin (vit B-12) 1,000 mcg/mL injection solution RxNorm: 517486 Milliliter(s) Inj 09/24/2014 09/24/2014 Inactive Tenex 1 mg tablet RxNorm: 376971 1 Tablet(s) PO daily TAKE ONE TABLET BY MOUTH EVERY DAY 09/24/2014 10/03/2015 Inactive Lopressor 100 mg tablet RxNorm: 395580 TAKE ONE TABLET BY MOUTH EVERY DAY 09/14/2014 06/10/2015 Inactive Lopressor 100 mg tablet RxNorm: 286601 1 Tablet(s) PO daily TAKE ONE TABLET BY MOUTH EVERY DAY 09/14/2014 09/13/2014 Inactive cyanocobalamin (vit B-12) 1,000 mcg/mL injection solution RxNorm: 158465 Milliliter(s) Inj 08/24/2014 08/24/2014 Inactive [SAVINGS FOR UNINSURED PATIENTS - - BIN:[id number], PCN: [id number], Group: [id number], ID# [id number], Process claim through [employer], for questions: . THIS IS NOT INSURANCE.] Victoza 2-J Luis 0.6 mg/0.1 mL (18 mg/3 mL) subcutaneous pen injector RxNorm: 261813 1.2 Milligram(s) SQ daily 08/05/201409/23 Inactive glipizide 10 mg tablet RxNorm: 838993 TAKE ONE TABLET BY MOUTH TWICE A DAY 07/28/2014 05/23/2015 Inactive Tenex 1 mg tablet RxNorm: 924478 TAKE ONE TABLET BY MOUTH EVERY DAY 07/02/2014 07/01/2014 Inactive Tenex 1 mg tablet RxNorm: 815251 TAKE ONE TABLET BY MOUTH EVERY DAY 07/02/2014 09/23/2014 Inactive spironolactone 25 mg tablet RxNorm: 053844 TAKE ONE TABLET BY MOUTH TWICE A DAY 07/02/2014 04/27/2015 Inactive spironolactone 25 mg tablet RxNorm: 560764 Tablet(s) PO TAKE ONE TABLET BY MOUTH TWICE A DAY 06/30/2014 07/01/2014 Inactive Tenex 1 mg tablet RxNorm: 872374 Tablet(s) PO TAKE ONE TABLET BY MOUTH EVERY DAY 06/30/2014 07/01/2014 Inactive Lortab 5 mg-500 mg tablet RxNorm: 094054 1-2 Tablet(s) PO Q4 PRN as needed q 4- 6hrs prn pain 06/22/2014 12/14/2014 Inactive metformin ER 500 mg tablet,extended release 24 hr RxNorm: 458263 Tablet(s) PO TAKE TWO TABLETS BY MOUTH TWICE A DAY 06/05/2014 06/13/2015 Inactive [SAVINGS FOR UNINSURED PATIENTS -- BIN:[id number], PCN: [id number], Group: [id number], ID# [id number], Process claim through [employer], for questions: . THIS IS NOT INSURANCE.] cyanocobalamin (vit B-12) 1,000 mcg/mL injection solution RxNorm: 623045 1 Milliliter(s) Inj monthly 06/01/201406/01 Inactive Kenalog 40 mg/mL suspension for injection RxNorm: 0842005 1 Milliliter(s) Inj 05/11/2014 05/11/2014 Inactive cyanocobalamin (vit B-12) 1,000 mcg/mL injection kit RxNorm: 582508 Milliliter(s) Inj 04/27/2014 04/27/2014 Inactive amlodipine 5 mg tablet RxNorm: 001178 TAKE ONE TABLET BY MOUTH TWICE A DAY 04/02/2014 07/30/2014 Inactive cyanocobalamin (vit B-12) 1,000 mcg/mL injection kit RxNorm: 465117 1 Milliliter(s ) Inj 03/24/2014 03/24/2014 Inactive [SAVINGS FOR UNINSURED PATIENTS -- BIN:[id number] , PCN: [id number], Group: [id number], ID# [id number], Process claim through [employer], for questions: . THIS IS NOT INSURANCE.] cyanocobalamin (vit B-12) 1,000 mcg/mL injection solution RxNorm: 065063 1 Milliliter(s) Inj 03/24/2014 03/24/2014 Inactive Synthroid 50 mcg tablet RxNorm: 364951 TAKE ONE TABLET BY MOUTH EVERY DAY. 03/01/2014 09/26/2014 Inactive Lasix 20 mg tablet RxNorm: 778816 TAKE ONE TABLET BY MOUTH EVERY DAY NEEDED FOR SWELLING. TAKE POTASSIUM WITH EACH DOSE 03/01/2014 09/26/2014 Inactive potassium chloride ER 20 mEq tablet,extended release(part/ cryst) RxNorm: 166667 TAKE ONE TABLET BY MOUTH EVERY DAY WHEN YOU TAKE LASIX (FUROSEMIDE) 03/01/2014 09/26/2014 Inactive cyanocobalamin (vit B-12) 1,000 mcg/mL injection solution RxNorm: 260188 1 Milliliter(s) Inj 02/24/2014 02/24/2014 Inactive Tricor 145 mg tablet RxNorm: 969616 TAKE ONE TABLET BY MOUTH EVERY DAY 02/16/2014 02/15/2014 Inactive Victoza 2-J Luis 0.6 mg/0.1 mL (18 mg/3 mL) subcutaneous pen injector RxNorm: 523514 1.2 Milligram(s) SQ daily 02/16/201408/04 Inactive Tricor 145 mg tablet RxNorm: 003302 TAKE ONE TABLET BY MOUTH EVERY DAY 02/16/2014 06/15/2014 Inactive Synthroid 50 mcg tablet RxNorm: 340714 TAKE ONE TABLET BY MOUTH EVERY DAY. 02/02/2014 03/03/2014 Inactive Synthroid 50 mcg tablet RxNorm: 346014 TAKE ONE TABLET BY MOUTH EVERY DAY. 02/02/2014 02/01/2014 Inactive simvastatin 20 mg tablet RxNorm: 661134 TAKE ONE TABLET BY MOUTH AT BEDTIME 01/12/2014 01/06/2015 Inactive cyanocobalamin (vit B-12) 1,000 mcg/mL injection solution RxNorm: 567868 Milliliter(s) Inj 01/09/2014 01/09/2014 Inactive Lortab 5 mg-500 mg tablet RxNorm: 690680 1-2 Tablet(s) PO Q4 PRN q 4-6hrs prn pain 12/23/2013 No Stop Date Active Lasix 20 mg tablet RxNorm: 693744 Tablet(s) PO TAKE ONE TABLET BY MOUTH EVERY DAY NEEDED FOR SWELLING. TAKE POTASSIUM WITH EACH DOSE 12/201302/28/2014 Inactive potassium chloride ER 20 mEq tablet,extended release(part/ cryst) RxNorm: 742164 Tablet(s) PO TAKE ONE TABLET BY MOUTH EVERY DAY WHEN YOU TAKE LASIX (FUROSEMIDE ) 12/02/2013 02/28/2014 Inactive Lomotil 2.5 mg-0.025 mg tablet RxNorm: 8077360 Tablet(s) PO TAKE ONE TABLET BY MOUTH EVERY 8 HOURS NEEDED 11/27/2013 01/28/2018 Inactive (Appended: Controlled substance eRx refill - RxReferenceNumber: [id number]) Lomotil 2.5 mg-0.025 mg tablet RxNorm: 9127337 1 Tablet(s) PO Q8 PRN 11/27/2013 05/24/2014 Inactive cyanocobalamin (vit B-12) 1,000 mcg/mL injection solution RxNorm: 669087 1 Milliliter(s) Inj 11/27/2013 11/27/2013 Inactive Vitamin B-12 1,000 mcg/mL injection solution RxNorm: 604603 1 Milliliter(s) Inj monthly 11/24/2013 11/18/2014 Inactive ok to give multidose if available Synthroid 50 mcg tablet RxNorm: 003352 Tablet(s) PO TAKE ONE TABLET BY MOUTH EVERY DAY. 10/31/2013 02/01/2014 Inactive simvastatin 20 mg tablet RxNorm: 512124 Tablet(s) PO TAKE ONE TABLET BY MOUTH AT BEDTIME 10/10/2013 01/11/2014 Inactive Vitamin B-12 1,000 mcg/mL injection solution RxNorm: 338874 1 Milliliter(s) Inj monthly 09/30/2013 09/29/2013 Inactive ok to give multidose if available Vitamin B-12 1,000 mcg/mL injection solution RxNorm: 328269 1 Milliliter(s) Inj monthly 09/30/2013 11/23/2013 Inactive ok to give multidose if available Vitamin B-12 1,000 mcg/mL injection solution RxNorm: 768930 1 Milliliter(s) Inj 09/18/2013 09/18/2013 Inactive Lopressor 100 mg tablet RxNorm: 994421 Tablet(s) PO TAKE ONE TABLET BY MOUTH EVERY DAY 09/15/2013 09/13/2014 Inactive Vitamin B-12 1,000 mcg/mL injection solution RxNorm: 033081 1 Milliliter(s) Inj 08/22/2013 08/22/2013 Inactive glipizide 10 mg tablet RxNorm: 723500 Tablet(s) PO TAKE ONE TABLET BY MOUTH TWICE A DAY 08/15/2013 07/27/2014 Inactive Tenex 1 mg tablet RxNorm: 401963 Tablet(s) PO TAKE ONE TABLET BY MOUTH EVERY DAY 08/05/2013 06/29/2014 Inactive potassium chloride ER 20 mEq tablet,extended release(part/ cryst) RxNorm: 662135 Tablet(s) PO TAKE ONE TABLET BY MOUTH EVERY DAY WHEN YOU TAKE LASIX (FUROSEMIDE ) 07/31/2013 12/01/2013 Inactive spironolactone 25 mg tablet RxNorm: 760385 Tablet(s) PO TAKE ONE TABLET BY MOUTH TWICE A DAY 07/31/2013 06/29/2014 Inactive Lasix 20 mg tablet RxNorm: 300139 Tablet(s) PO TAKE ONE TABLET BY MOUTH EVERY DAY NEEDED FOR SWELLING. TAKE POTASSIUM WITH EACH DOSE 08/201312/01/2013 Inactive Vitamin B-12 1,000 mcg/mL injection solution RxNorm: 742602 Milliliter(s) Inj 07/28/2013 07/28/2013 Inactive Synthroid 50 mcg tablet RxNorm: 835489 Tablet(s) PO TAKE ONE TABLET BY MOUTH EVERY DAY. PATIENT DUE FOR TSH LEVEL LAB 06/30/2013 06/29/2013 Inactive Synthroid 50 mcg tablet RxNorm: 481324 Tablet(s) PO TAKE ONE TABLET BY MOUTH EVERY DAY. PATIENT DUE FOR TSH LEVEL LAB 06/30/2013 10/30/2013 Inactive potassium chloride ER 20 mEq tablet,extended release(part/ cryst) RxNorm: 808283 Tablet(s) PO TAKE ONE TABLET BY MOUTH EVERY DAY WHEN YOU TAKE LASIX (FUROSEMIDE ) 06/23/2013 07/30/2013 Inactive Lasix 20 mg tablet RxNorm: 153860 Tablet(s) PO TAKE ONE TABLET BY MOUTH EVERY DAY NEEDED FOR SWELLING. TAKE POTASSIUM WITH EACH DOSE 07/30/2013 Inactive amlodipine 5 mg tablet RxNorm: 294748 Tablet(s) PO TAKE ONE TABLET BY MOUTH TWICE A DAY 06/17/2013 04/01/2014 Inactive metformin ER 500 mg tablet,extended release 24 hr RxNorm: 493542 Tablet(s) PO TAKE TWO TABLETS BY MOUTH TWICE A DAY 05/26/2013 06/04/2014 Inactive metformin ER 500 mg tablet,extended release 24 hr RxNorm: 330364 Tablet(s) PO TAKE TWO TABLETS BY MOUTH TWICE A DAY 05/26/2013 05/25/2013 Inactive Vitamin B-12 1,000 mcg/mL injection solution RxNorm: 598526 1 Milliliter(s) Inj 05/21/2013 05/21/2013 Inactive Vitamin B-12 1,000 mcg/mL Injection RxNorm: 634645 Milliliter(s) Inj 04/23/2013 04/23/2013 Inactive Influenza Virus Vaccine 0.5 mL RxNorm: IM 04/23/2013 04/23/2013 Inactive Synthroid 50 mcg tablet RxNorm: 588284 Tablet(s) PO TAKE ONE TABLET BY MOUTH EVERY DAY. PATIENT DUE FOR TSH LEVEL LAB 04/17/2013 06/29/2013 Inactive Lasix 20 mg tablet RxNorm: 433876 Tablet(s) PO TAKE ONE TABLET BY MOUTH EVERY DAY NEEDED FOR SWELLING. TAKE POTASSIUM WITH EACH DOSE 06/22/2013 Inactive potassium chloride ER 20 mEq tablet,extended release(part/ cryst) RxNorm: 1222004 Tablet(s) PO TAKE ONE TABLET BY MOUTH EVERY DAY WHEN YOU TAKE LASIX (FUROSEMIDE ) 04/17/2013 06/22/2013 Inactive simvastatin 20 mg tablet RxNorm: 280061 Tablet(s) PO TAKE ONE TABLET BY MOUTH AT BEDTIME 04/10/2013 10/09/2013 Inactive Vitamin B-12 1,000 mcg/mL Injection RxNorm: 423628 1 Milliliter(s) Inj 03/24/2013 03/24/2013 Inactive Lopressor 100 mg tablet RxNorm: 629157 Tablet(s) PO TAKE ONE TABLET BY MOUTH EVERY DAY 03/18/2013 09/14/2013 Inactive cyanocobalamin (vitamin B-12) 1,000 mcg/mL Injection RxNorm: 922241 Milliliter(s) Inj 02/20/2013 02/20/2013 Inactive Tricor 145 mg tablet RxNorm: 450591 Tablet(s) PO TAKE ONE TABLET BY MOUTH EVERY DAY 02/14/2013 02/15/2014 Inactive Vitamin B-12 1,000 mcg/mL Injection RxNorm: 546586 1 Milliliter(s) Inj 01/22/2013 01/22/2013 Inactive potassium chloride ER 20 mEq tablet,extended release(part/ cryst) RxNorm: 2880592 1 Tablet(s) PO QDAY PRN take when taking prn lasix 201204/16/2013 Inactive Lasix 20 mg tablet RxNorm: 647763 1 Tablet(s) PO QDAY PRN daily prn swelling - to take kcl with lasix 01/22/20132012 Inactive cyanocobalamin (vitamin B-12) 1,000 mcg/mL Injection RxNorm: 554464 Milliliter(s) Inj 12/19/2012 12/19/2012 Inactive cyanocobalamin (vitamin B-12) 1,000 mcg/mL Injection RxNorm: 894197 Milliliter(s) Inj 11/20/2012 11/20/2012 Inactive Diflucan 150 mg tablet RxNorm: 207825 1 Tablet(s) PO daily 11/21/2012 Inactive Synthroid 50 mcg tablet RxNorm: 974156 Tablet(s) PO TAKE ONE TABLET BY MOUTH EVERY DAY. PATIENT DUE FOR TSH LEVEL LAB 11/18/2012 04/16/2013 Inactive Keflex 500 mg capsule RxNorm: 738279 1 Capsule(s) PO TID 201211/19/2012 Inactive Keflex 500 mg capsule RxNorm: 647442 1 Capsule(s) PO TID 201211/12/2012 Inactive Byetta 10 mcg/0.04 mL per dose Sub-Q Pen Injector RxNorm: 061610 Pen Injector SQ DIAL AND INJECT SUBCUTANEOUSLY 10 MCG TWICE DAILY WITHIN 60 MINUTES BEFORE MORNING AND EVENING MEALS. DO NOT ADMINISTER AFTER A MEAL. 04/03/2014 Inactive cyanocobalamin (vitamin B-12) 1,000 mcg/mL Injection RxNorm: 029779 1 Milliliter(s ) Inj 10/23/2012 10/23/2012 Inactive Lortab 5 mg-500 mg tablet RxNorm: 463972 1-2 Tablet(s) PO Q4 PRN q 4-6hrs prn pain 10/02/2012 12/22/2013 Inactive cyanocobalamin (vitamin B-12) 1,000 mcg/mL Injection RxNorm: 205946 Milliliter(s) Inj 09/16/2012 09/16/2012 Inactive Vitamin B-12 1,000 mcg/mL Injection RxNorm: 585427 1 Milliliter(s) Inj 08/15/2012 08/15/2012 Inactive glipizide 10 mg tablet RxNorm: 893351 Tablet(s) PO TAKE ONE TABLET BY MOUTH TWICE A DAY 08/12/2012 08/14/2013 Inactive Tenex 1 mg tablet RxNorm: 945259 Tablet(s) PO TAKE ONE TABLET BY MOUTH EVERY DAY 08/12/2012 08/04/2013 Inactive Kenalog 40 mg/mL Susp for Injection RxNorm: 1618620 1 Milliliter(s) Inj 08/06/2012 01/22/2013 Inactive spironolactone 25 mg tablet RxNorm: 565479 Tablet(s) PO TAKE ONE TABLET BY MOUTH TWICE A DAY 07/29/2012 07/30/2013 Inactive cefdinir 300 mg capsule RxNorm: 642657 1 Capsule(s) PO BID 08/01/2012 Inactive cefdinir 300 mg capsule RxNorm: 389511 1 Capsule(s) PO BID 07/25/2012 Inactive Vitamin B-12 1,000 mcg/mL Injection RxNorm: 734536 1 Milliliter(s) Inj 07/19/2012 07/19/2012 Inactive simvastatin 20 mg tablet RxNorm: 162587 Tablet(s) PO TAKE ONE TABLET BY MOUTH AT BEDTIME 07/08/2012 04/09/2013 Inactive simvastatin 20 mg tablet RxNorm: 587654 Tablet(s) PO TAKE ONE TABLET BY MOUTH AT BEDTIME 07/08/2012 10/07/2015 Inactive Synthroid 50 mcg tablet RxNorm: 624002 1 Tablet(s) PO daily 12/201110/31/2012 Inactive Please advise patient due for TSH level. amlodipine 5 mg tablet RxNorm: 283875 1 Tablet(s) PO BID 201112/15/2012 Inactive amlodipine 5 mg tablet RxNorm: 446802 1 Tablet(s) PO BID 201106/18/2012 Inactive Vitamin B-12 1,000 mcg/mL Injection RxNorm: 126092 Milliliter(s) Inj 06/19/2012 06/19/2012 Inactive Lopressor 100 mg tablet RxNorm: 088055 Tablet(s) PO 06/17/2012 03/17/2013 Inactive TAKE ONE TABLET BY MOUTH EVERY DAY Vitamin B-12 1,000 mcg/mL Injection RxNorm: 727647 Milliliter(s) Inj 05/22/2012 05/22/2012 Inactive Synthroid 50 mcg tablet RxNorm: 657087 1 Tablet(s) PO daily 06/11/2012 Inactive Please advise patient due for TSH level. Diflucan 150 mg tablet RxNorm: 447430 1 Tablet(s) PO daily 11/18/2012 Inactive metformin ER 500 mg tablet,extended release 24 hr RxNorm: 382017 2 Tablet(s) PO BID 04/25/2012 05/19/2013 Inactive Vitamin B-12 1,000 mcg/mL Injection RxNorm: 034917 Milliliter(s) Inj 04/22/2012 04/22/2012 Inactive Vitamin B-12 1,000 mcg/mL Injection RxNorm: 604350 Milliliter(s) Inj 03/19/2012 03/19/2012 Inactive Vitamin B-12 1,000 mcg/mL Injection RxNorm: 405466 Milliliter(s) Inj 02/15/2012 02/15/2012 Inactive Tricor 145 mg tablet RxNorm: 197494 1 Tablet(s) PO daily 201102/13/2013 Inactive Vitamin B-12 1,000 mcg/mL Injection RxNorm: 217686 Milliliter(s) Inj 01/18/2012 01/18/2012 Inactive Kenalog 40 mg/mL Susp for Injection RxNorm: 0005999 1 Milliliter(s) Inj 12/28/2011 12/28/2011 Inactive Vitamin B-12 1,000 mcg/mL Injection RxNorm: 138088 Milliliter(s) Inj 12/20/2011 12/20/2011 Inactive omeprazole 20 mg Cap, delayed release RxNorm: 887116 1 Capsule(s) PO daily 12/07/2011 11/30/2012 Inactive may take bid if nec cyanocobalamin (vitamin B-12) 1,000 mcg/mL Injection RxNorm: 723216 1 Milliliter(s ) Inj 11/07/2011 11/07/2011 Inactive cyanocobalamin (vitamin B-12) 1,000 mcg/mL Injection RxNorm: 222292 1 Milliliter(s ) Inj 10/03/2011 10/03/2011 Inactive Synthroid 50 mcg tablet RxNorm: 154128 1 Tablet(s) PO daily 03/08/2012 Inactive Byetta 10 mcg/0.04 mL per dose Sub-Q Pen Injector RxNorm: 700013 10 Microgram(s) SQ BID 08/29/2011 09/21/2012 Inactive metformin ER 500 mg tablet,extended release 24 hr RxNorm: 087579 2 Tablet(s) PO BID 08/15/2011 02/10/2012 Inactive cyanocobalamin (vitamin B-12) 1,000 mcg/mL Injection RxNorm: 656298 1 Milliliter(s ) Inj 07/28/2011 07/28/2011 Inactive NovoFine 30 Needle RxNorm: 1 Miscellaneous BID 07/28/2011 03/18/2013 Inactive OneTouch Ultra Test strips RxNorm: 1 Miscellaneous BID 201003/18/2013 Inactive guanfacine 1 mg Tab RxNorm: 373263 1 Tablet(s) PO daily 201007/10/2012 Inactive glipizide 10 mg tablet RxNorm: 305496 1 Tablet(s) PO BID 201008/09/2012 Inactive Tenex 1 mg tablet RxNorm: 899310 1 Tablet(s) PO daily 201008/09/2012 Inactive lisinopril 20 mg tablet RxNorm: 731388 1 Tablet(s) PO daily pt 07/04/2011 04/21/2012 Inactive pt may have #90 with year if insurance pays spironolactone 25 mg tablet RxNorm: 002807 1 Tablet(s) PO BID 07/03/2011 07/26/2012 Inactive simvastatin 20 mg Tab RxNorm: 008081 1 Tablet(s) PO QHS 201006/28/2011 Inactive cyanocobalamin (vitamin B-12) 1,000 mcg/mL Injection RxNorm: 669348 Milliliter(s) Inj 06/29/2011 06/29/2011 Inactive simvastatin 20 mg tablet RxNorm: 472973 1 Tablet(s) PO QHS 07/201006/22/2012 Inactive Lopressor 100 mg tablet RxNorm: 248270 1 Tablet(s) PO daily 06/16/2012 Inactive ketorolac 60 mg/2 mL IM RxNorm: 994281 Milliliter(s) IM 201005/23/2011 Inactive cyanocobalamin (vitamin B-12) 1,000 mcg/mL Injection RxNorm: 976693 Milliliter(s) Inj 05/23/2011 05/23/2011 Inactive Influenza Virus Vaccine 0.5 mL RxNorm: IM 04/26/2011 04/26/2011 Inactive Vitamin B-12 1,000 mcg/mL Injection RxNorm: 268078 Milliliter(s) Inj 04/26/2011 04/26/2011 Inactive Lomotil 2.5 mg-0.025 mg tablet RxNorm: 4344131 1 Tablet(s) PO Q8 PRN 04/26/2011 11/27/2013 Inactive hydralazine 10 mg tablet RxNorm: 183046 1 Tablet(s) PO TID No Start Date Active multivitamin tablet RxNorm: 1 Tablet(s) PO daily No Start Date Active clopidogrel 75 mg tablet RxNorm: 822863 1 Tablet(s) PO daily No Start Date Active simvastatin 20 mg tablet RxNorm: 771083 1 Tablet(s) PO daily No Start Date Active Tricor 145 mg Tab RxNorm: 826490 1 Tablet(s) PO daily No Start Date 02/07/2012 Inactive amiodarone 200 mg tablet RxNorm: 965430 1 Tablet(s) PO daily No Start Date 01/28/2018 Inactive Synthroid 50 mcg Tab RxNorm: 160456 1 Tablet(s) PO daily No Start Date 09/10/2011 Inactive atorvastatin 10 mg tablet RxNorm: 593026 1 Tablet(s) PO QHS No Start Date 08/07/2018 Inactive lisinopril 20 mg tablet RxNorm: 061339 1 Tablet(s) PO daily No Start Date 06/18/2012 Inactive Toujeo Max U-300 SoloStar 300 unit/mL (3 mL) subcutaneous insulin pen RxNorm: 3361359 10 Unit(s) SQ QHS increase by 4 units every 3 days until BS under 150 No Start Date 08/29/2018 Inactive Lortab 5 mg-500 mg tablet RxNorm: 350201 1 Tablet(s) PO Q4 PRN q 4hrs prn pain No Start Date 10/01/2012 Inactive Tenex 1 mg Tab RxNorm : 904835 1 Tablet(s) PO daily No Start Date 07/16/2011 Inactive lisinopril 40 mg tablet RxNorm: 173304 Tablet(s) PO No Start Date 05/21/2012 Inactive Voltaren 1 % Topical Gel RxNorm: 117721 TOP as directed No Start Date 11/29/2015 Inactive iron 325 mg (65 mg iron) Tab RxNorm: 042684 1 Tablet(s) PO daily No Start Date 02/22/2015 Inactive Zithromax Z-J Luis 250 mg tablet RxNorm: 126772 Tablet(s) PO UD No Start Date 01/22/2013 Inactive Byetta 10 mcg/0.04 mL per dose Sub-Q Pen Injector RxNorm: 306511 Milliliter(s) SQ BID No Start Date 08/28/2011 Inactive Mouth Sore oral RxNorm : 1399 mucous membrane No Start Date 01/28/2018 Inactive cyanocobalamin (vitamin B-12) 1,000 mcg/mL Injection RxNorm: 015016 1 Milliliter(s ) Inj month No Start Date 11/30/2015 Inactive Tessalon 200 mg capsule RxNorm: 578371 1 Capsule(s) PO TID PRN No Start Date 01/21/2013 Inactive metoprolol succinate ER 100 mg tablet,extended release 24 hr RxNorm: 503104 1 Tablet(s) PO daily No Start Date 2017 Inactive Victoza 2-J Luis 0.6 mg/0.1 mL (18 mg/3 mL) subcutaneous pen injector RxNorm: 005237 1.2 Milligram(s) SQ daily No Start Date Inactive simvastatin 20 mg Tab RxNorm: 679949 1 Tablet(s) PO QHS No Start Date 06/28/2011 Inactive spironolactone 25 mg Tab RxNorm: 064501 1 Tablet(s) PO BID No Start Date 07/02/2011 Inactive Diflucan 150 mg tablet RxNorm: 385404 1 Tablet(s) PO daily No Start Date 04/24/2012 Inactive guanfacine 1 mg Tab RxNorm: 515475 1 Tablet(s) PO daily No Start Date 07/16/2011 Inactive Ativan 1 mg Tab RxNorm : 479543 1/2-1 Tablet(s) PO Q6 PRN 1/2 - 1 tab q 6 hours if needed for anxiety No Start Date 2013 Inactive metformin ER 500 mg 24 hr Tab RxNorm: 585934 2 Tablet(s) PO BID No Start Date 08/14/2011 Inactive warfarin 2 mg tablet RxNorm: 575323 1 Tablet(s) PO daily No Start Date 01/28/2018 Inactive Lopressor 100 mg Tab RxNorm: 137665 1 Tablet(s) PO daily No Start Date 06/26/2011 Inactive glipizide 10 mg Tab RxNorm: 128383 1 Tablet(s) PO BID No Start Date 07/16/2011 Inactive KCL 10 meq RxNorm: PO as directed daily when taking lasix No Start Date 01/22/2013 Inactive lisinopril 20 mg Tab RxNorm: 047562 1 Tablet(s) PO daily No Start Date 07/03/2011 Inactive One Touch Ultra Test Strips RxNorm: 1 Miscellaneous BID No Start Date 07/27/2011 Inactive aspirin 81 mg Tab, Delayed Release RxNorm: 985730 1 Tablet(s) PO daily No Start Date 01/28/2018 Inactive omeprazole 20 mg Cap, delayed release RxNorm: 707777 1 Capsule(s) PO BID No Start Date 12/06/2011 Inactive Lasix 20 mg tablet RxNorm: 695558 Tablet(s) PO as directed daily prn swelling - to take kcl with lasix No Start Date 01/21 Inactive Vitamin D 1,000 unit Tab RxNorm: 931715 1 Tablet(s) PO daily No Start Date 01/28/2018 Inactive niacin 500 mg Tab RxNorm: 332877 1 Tablet(s) PO QHS No Start Date 04/03/2014 Inactive Medication Administered Medication Codes Instructions Start Date Status Kenalog 40 mg/mL suspension for injection RxNorm: 0013945 1Milliliter 05/29/2018 No longer Active cyanocobalamin (vit B-12) 1,000 mcg/mL injection solution RxNorm: 711058 1Milliliter 05/07/2018 No longer Active cyanocobalamin (vit B-12) 1,000 mcg/mL injection solution RxNorm: 370193 Milliliter 04/04/2018 No longer Active cyanocobalamin (vit B-12) 1,000 mcg/mL injection solution RxNorm: 370211 1Milliliter 03/04/2018 No longer Active cyanocobalamin (vit B-12) 1,000 mcg/mL injection solution RxNorm: 717339 1Milliliter 01/29/2018 No longer Active cyanocobalamin (vit B-12) 1,000 mcg/mL injection solution RxNorm: 977718 Milliliter 12/18/2017 No longer Active cyanocobalamin (vit B-12) 1,000 mcg/mL injection solution RxNorm: 621516 1Milliliter 11/20/2017 No longer Active cyanocobalamin (vit B-12) 1,000 mcg/mL injection solution RxNorm: 257459 1Milliliter 08/21/2017 No longer Active cyanocobalamin (vit B-12) 1,000 mcg/mL injection solution RxNorm: 463686 1Milliliter 07/18/2017 No longer Active cyanocobalamin (vit B-12) 1,000 mcg/mL injection solution RxNorm: 119109 1Milliliter 06/18/2017 No longer Active Kenalog 40 mg/mL suspension for injection RxNorm: 4710025 1Milliliter 06/18/2017 No longer Active cyanocobalamin (vit B-12) 1,000 mcg/mL injection solution RxNorm: 705121 1Milliliter 05/09/2017 No longer Active cyanocobalamin (vit B-12) 1,000 mcg/mL injection solution RxNorm: 458719 1Milliliter 04/04/2017 No longer Active Kenalog 40 mg/mL suspension for injection RxNorm: 9766537 1Milliliter 02/23/2017 No longer Active cyanocobalamin (vit B-12) 1,000 mcg/mL injection solution RxNorm: 375831 Milliliter 01/23/2017 No longer Active cyanocobalamin (vit B-12) 1,000 mcg/mL injection solution RxNorm: 358558 1Milliliter 11/14/2016 No longer Active Kenalog 40 mg/mL suspension for injection RxNorm: 5534428 1Milliliter 09/07/2016 No longer Active cyanocobalamin (vit B-12) 1,000 mcg/mL injection solution RxNorm: 080968 1Milliliter 08/29/2016 No longer Active cyanocobalamin (vit B-12) 1,000 mcg/mL injection solution RxNorm: 580264 Milliliter 06/12/2016 No longer Active ceftriaxone 500 mg solution for injection RxNorm: 8372624 2Milliliter 05/04/2016 No longer Active cyanocobalamin (vit B-12) 1,000 mcg/mL injection solution RxNorm: 236082 Milliliter 05/04/2016 No longer Active cyanocobalamin (vit B-12) 1,000 mcg/mL injection solution RxNorm: 243266 Milliliter 03/17/2016 No longer Active cyanocobalamin (vit B-12) 1,000 mcg/mL injection solution RxNorm: 184824 1Milliliter 02/15/2016 No longer Active cyanocobalamin (vit B-12) 1,000 mcg/mL injection solution RxNorm: 057528 Milliliter 01/19/2016 No longer Active cyanocobalamin (vit B-12) 1,000 mcg/mL injection solution RxNorm: 361405 1Milliliter 12/07/2015 No longer Active cyanocobalamin (vit B-12) 1,000 mcg/mL injection kit RxNorm : 656079 kit 09/06/2015 No longer Active ceftriaxone 500 mg solution for injection RxNorm: 2628049 09/06/2015 No longer Active ceftriaxone 500 mg solution for injection RxNorm: 0547858 07/05/2015 No longer Active Kenalog 40 mg/mL suspension for injection RxNorm: 2783795 Milliliter 07/05/2015 No longer Active cyanocobalamin (vit B-12) 1,000 mcg/mL injection solution RxNorm: 005087 Milliliter 06/28/2015 No longer Active cyanocobalamin (vit B-12) 1,000 mcg/mL injection solution RxNorm: 100597 Milliliter 05/13/2015 No longer Active cyanocobalamin (vit B-12) 1,000 mcg/mL injection solution RxNorm: 139310 Milliliter 02/23/2015 No longer Active cyanocobalamin (vit B-12) 1,000 mcg/mL injection solution RxNorm: 664017 Milliliter 01/08/2015 No longer Active cyanocobalamin (vit B-12) 1,000 mcg/mL injection solution RxNorm: 974439 Milliliter 12/08/2014 No longer Active cyanocobalamin (vit B-12) 1,000 mcg/mL injection solution RxNorm: 492564 Milliliter 10/26/2014 No longer Active cyanocobalamin (vit B-12) 1,000 mcg/mL injection solution RxNorm: 264230 Milliliter 09/24/2014 No longer Active cyanocobalamin (vit B-12) 1,000 mcg/mL injection solution RxNorm: 669175 Milliliter 08/24/2014 No longer Active cyanocobalamin (vit B-12) 1,000 mcg/mL injection solution RxNorm: 105006 1Milliliter 06/01/2014 No longer Active Kenalog 40 mg/mL suspension for injection RxNorm: 4517917 1Milliliter 05/11/2014 No longer Active cyanocobalamin (vit B-12) 1,000 mcg/mL injection kit RxNorm : 429434 Milliliter 04/27/2014 No longer Active cyanocobalamin (vit B-12) 1,000 mcg/mL injection kit RxNorm : 901058 1Milliliter 03/24/2014 No longer Active cyanocobalamin (vit B-12) 1,000 mcg/mL injection solution RxNorm: 853858 1Milliliter 03/24/2014 No longer Active cyanocobalamin (vit B-12) 1,000 mcg/mL injection solution RxNorm: 193281 1Milliliter 02/24/2014 No longer Active cyanocobalamin (vit B-12) 1,000 mcg/mL injection solution RxNorm: 437602 Milliliter 01/09/2014 No longer Active cyanocobalamin (vit B-12) 1,000 mcg/mL injection solution RxNorm: 304518 1Milliliter 11/27/2013 No longer Active Vitamin B-12 1,000 mcg/mL injection solution RxNorm: 331624 1Milliliter 09/18/2013 No longer Active Vitamin B-12 1,000 mcg/mL injection solution RxNorm: 781169 1Milliliter 08/22/2013 No longer Active Vitamin B-12 1,000 mcg/mL injection solution RxNorm: 052550 Milliliter 07/28/2013 No longer Active Vitamin B-12 1,000 mcg/mL injection solution RxNorm: 061259 1Milliliter 05/21/2013 No longer Active Influenza Virus Vaccine 0.5 mL RxNorm: 04/23/2013 No longer Active Vitamin B-12 1,000 mcg/mL Injection RxNorm: 190537 Milliliter 04/23/2013 No longer Active Vitamin B-12 1,000 mcg/mL Injection RxNorm: 980307 1Milliliter 03/24/2013 No longer Active cyanocobalamin (vitamin B-12) 1,000 mcg/mL Injection RxNorm : 758534 Milliliter 02/20/2013 No longer Active Vitamin B-12 1,000 mcg/mL Injection RxNorm: 016808 1Milliliter 01/22/2013 No longer Active cyanocobalamin (vitamin B-12) 1,000 mcg/mL Injection RxNorm : 082059 Milliliter 12/19/2012 No longer Active cyanocobalamin (vitamin B-12) 1,000 mcg/mL Injection RxNorm : 461101 Milliliter 11/20/2012 No longer Active cyanocobalamin (vitamin B-12) 1,000 mcg/mL Injection RxNorm : 071805 1Milliliter 10/23/2012 No longer Active cyanocobalamin (vitamin B-12) 1,000 mcg/mL Injection RxNorm : 459168 Milliliter 09/16/2012 No longer Active Vitamin B-12 1,000 mcg/mL Injection RxNorm: 515939 1Milliliter 08/15/2012 No longer Active Vitamin B-12 1,000 mcg/mL Injection RxNorm: 639733 1Milliliter 07/19/2012 No longer Active Vitamin B-12 1,000 mcg/mL Injection RxNorm: 527977 Milliliter 06/19/2012 No longer Active Vitamin B-12 1,000 mcg/mL Injection RxNorm: 080873 Milliliter 05/22/2012 No longer Active Vitamin B-12 1,000 mcg/mL Injection RxNorm: 288324 Milliliter 04/22/2012 No longer Active Vitamin B-12 1,000 mcg/mL Injection RxNorm: 019497 Milliliter 03/19/2012 No longer Active Vitamin B-12 1,000 mcg/mL Injection RxNorm: 871261 Milliliter 02/15/2012 No longer Active Vitamin B-12 1,000 mcg/mL Injection RxNorm: 852546 Milliliter 01/18/2012 No longer Active Kenalog 40 mg/mL Susp for Injection RxNorm: 7513781 1Milliliter 12/28/2011 No longer Active Vitamin B-12 1,000 mcg/mL Injection RxNorm: 351651 Milliliter 12/20/2011 No longer Active cyanocobalamin (vitamin B-12) 1,000 mcg/mL Injection RxNorm : 909897 1Milliliter 11/07/2011 No longer Active cyanocobalamin (vitamin B-12) 1,000 mcg/mL Injection RxNorm : 066623 1Milliliter 10/03/2011 No longer Active cyanocobalamin (vitamin B-12) 1,000 mcg/mL Injection RxNorm : 543918 1Milliliter 07/28/2011 No longer Active cyanocobalamin (vitamin B-12) 1,000 mcg/mL Injection RxNorm : 428771 Milliliter 06/29/2011 No longer Active cyanocobalamin (vitamin B-12) 1,000 mcg/mL Injection RxNorm : 983465 Milliliter 05/23/2011 No longer Active ketorolac 60 mg/2 mL IM RxNorm: 445168 Milliliter 05/23/2011 No longer Active Influenza Virus Vaccine 0.5 mL RxNorm: 04/26/2011 No longer Active Vitamin B-12 1,000 mcg/mL Injection RxNorm: [id number] Milliliter 04/26/2011 No longer Active Immunizations Vaccine [...] 28.4 pg 06/07/2017 Cbc With Differential Ord2 Phelps% 12.6 % 06/07/2017 Cbc With Differential Ord2 [...] 1.23 K/ul 06/07/2017 Cbc With Differential Ord2 Phelps ABS# 0.7 K/ul 06/07/2017 Cbc With Differential Ord2 Eos ABS# 0.2 K/ul 06/07/2017 Cbc With Differential Ord2 Baso ABS# 0.0 K/ul 06/07/2017 Culture Urine [id number] URINE CULTURE SEE NOTES 05/08/2016 Culture Urine [id number] Continued Results 05/08/2016 Urine Culture Ucult Complete >100,000 col/ml aerobic growth sent to ref lab 05/05/2016 IRON TEST [id number] IRON TEST 44 UG/DL 07/28/2013 TSH [id number] TSH 2.104 uIU/ML 07/28/2013 CBC [id number] WBC 6.2 10e9/L 07/28/2013 CBC [id number] RBC 3.95 10e12/L 07/28/2013 CBC [id number] HGB 11.2 g/dL 07/28/2013 CBC [id number] HCT DET 34.2 % 07/28/2013 CBC [id number] MCV 86.6 fL 07/28/2013 CBC 2271500 MCH 28.4 pg 07/28/2013 CBC [id number] MCHC 32.7 g/dL 07/28/2013 CBC [id number] PLT 231 10e9/L 07/28/2013 CBC [id number] MPV 10.9 fL 07/28/2013 CBC [id number] JAZMYN % 61.0 % 07/28/2013 CBC [id number] LY % 27.8 % 07/28/2013 CBC [id number] MON % 8.0 % 07/28/2013 CBC [id number] EOS % 2.4 % 07/28/2013 CBC [id number] BASO % 0.8 % 07/28/2013 CBC 7784624 RDW 14.0 % 07/28/2013 CBC [id number] ABS JAZMYN 3.78 10e9/L 07/28/2013 CBC [id number] ABS LYMPH 1.72 10e9/L 07/28/2013 CBC [id number] ABS MONO 0.50 10e9/L 07/28/2013 CBC [id number] ABS EOS 0.15 10e9/L 07/28/2013 CBC 4082012 ABS BASO 0.05 10e9/L 07/28/2013 CBC [id number] RDW-SD 42.9 fL 07/28/2013 %SAT/TIBC 6269505 TIBC 439 UG/DL 07/28/2013 %SAT/TIBC 2586115 % SATURAT 10 % 07/28/2013 %SAT/TIBC 9277462 UIBC 395 MCG/DL 07/28/2013 Review of Systems [...] masses 06/16/2013 None Full Exam - General 1995 Respiratory auscultation Overall: breath sounds clear bilaterally 06/16/2013 None Full Exam - General 1995 Respiratory respiratory effort/rhythm Overall: no retractions 06/16/2013 None Full Exam - General 1995 Respiratory respiratory effort/rhythm Overall: normal rate 06/16/2013 [...] tenderness 07/10/2012 None Full Exam - General 1995 Constitutional general appearance Overall: well developed 07/04/2012 [...] Procedure Codes Date GLUCOSE MONITORING CONT CPT-4: 44631 08/08/2018 THER/PROPH/DIAG INJ SC/IM CPT-4: 83532 08/05/2018 VITAMIN B12 INJECTION CPT-4: J3420 08/05/2018 DRAIN/INJECT JOINT/BURSA CPT-4: 31041 05/29/2018 TRIAMCINOLONE ACET INJ NOS CPT-4: J3301 05/29/2018 THER/PROPH/DIAG INJ SC/IM CPT-4: 59798 05/07/2018 VITAMIN B12 INJECTION CPT-4: J3420 05/07/2018 FLU VAC NO PRSV 4 JINNY 3 YRS+ CPT-4: 33804 04/04/2018 ADMIN INFLUENZA VIRUS VAC CPT-4: G0008 04/04/2018 THER/PROPH/DIAG INJ SC/IM CPT-4: 22576 04/04/2018 VITAMIN B12 INJECTION CPT-4: J3420 04/04/2018 THER/PROPH/DIAG INJ SC/IM CPT-4: 14360 03/04/2018 VITAMIN B12 INJECTION CPT-4: J3420 03/04/2018 PPPS, SUBSEQ VISIT CPT -4: G0439 01/29/2018 ADMIN PNEUMOCOCCAL VACCINE SNOMED CT: 54945474 CPT-4: G0009 01/29/2018 PNEUMOCOCCAL VACC [address]: 50655368 CPT-4: 18951 01/29/2018 THER/PROPH/DIAG INJ SC/IM CPT-4: 23680 01/29/2018 VITAMIN B12 INJECTION CPT-4: J3420 01/29/2018 PRESCRIP TRANSMIT VIA ERX SY CPT-4: G8553 01/01/2018 PRESCRIP TRANSMIT VIA ERX SY CPT-4: G8553 12/27/2017 THER/PROPH/DIAG INJ SC/IM CPT-4: 09189 12/18/2017 VITAMIN B12 INJECTION CPT-4: J3420 12/18/2017 PRESCRIP TRANSMIT VIA ERX SY CPT-4: G8553 12/18/2017 THER/PROPH/DIAG INJ SC/IM CPT-4: 23363 11/20/2017 VITAMIN B12 INJECTION CPT-4: J3420 11/20/2017 THER/PROPH/DIAG INJ SC/IM CPT-4: 70483 08/21/2017 VITAMIN B12 INJECTION CPT-4: J3420 08/21/2017 THER/PROPH/DIAG INJ SC/IM CPT-4: 65596 07/18/2017 VITAMIN B12 INJECTION CPT-4: J3420 07/18/2017 TRIAMCINOLONE ACET INJ NOS CPT-4: J3301 06/18/2017 THER/PROPH/DIAG INJ SC/IM CPT-4: 67846 06/18/2017 VITAMIN B12 INJECTION CPT-4: J3420 06/18/2017 PRESCRIP TRANSMIT VIA ERX SY CPT-4: G8553 06/18/2017 THER/PROPH/DIAG INJ SC/IM CPT-4: 58744 05/09/2017 VITAMIN B12 INJECTION CPT-4: J3420 05/09/2017 ADMIN INFLUENZA VIRUS VAC CPT-4: G0008 04/25/2017 FLU VAC NO PRSV 4 JINNY 3 YRS+ CPT-4: 21908 04/25/2017 THER/PROPH/DIAG INJ SC/IM CPT-4: 30805 04/04/2017 VITAMIN B12 INJECTION CPT-4: J3420 04/04/2017 TRIAMCINOLONE ACET INJ NOS CPT-4: J3301 02/23/2017 VITAMIN B12 INJECTION CPT-4: J3420 02/23/2017 THER/PROPH/DIAG INJ SC/IM CPT-4: 15581 01/23/2017 VITAMIN B12 INJECTION CPT-4: J3420 01/23/2017 VITAMIN B12 INJECTION CPT-4: J3420 12/26/2016 THER/PROPH/DIAG INJ SC/IM CPT-4: 58297 12/26/2016 THER/PROPH/DIAG INJ SC/IM CPT-4: 25836 11/14/2016 VITAMIN B12 INJECTION CPT-4: J3420 11/14/2016 THER/PROPH/DIAG INJ SC/IM CPT-4: 21594 09/07/2016 TRIAMCINOLONE ACET INJ NOS CPT-4: J3301 09/07/2016 PRESCRIP TRANSMIT VIA ERX SY CPT-4: G8553 09/07/2016 THER/PROPH/DIAG INJ SC/IM CPT-4: 73972 08/29/2016 VITAMIN B12 INJECTION CPT-4: J3420 08/29/2016 PRESCRIP TRANSMIT VIA ERX SY CPT-4: G8553 08/29/2016 THER/PROPH/DIAG INJ SC/IM CPT-4: 14757 06/12/2016 VITAMIN B12 INJECTION CPT-4: J3420 06/12/2016 PRESCRIP TRANSMIT VIA ERX SY CPT-4: G8553 06/12/2016 URINALYSIS NONAUTO W/O SCOPE CPT-4: 53987 05/04/2016 ROCEPHIN, PER 250 MG CPT-4: J0696 05/04/2016 THER/PROPH/DIAG INJ SC/IM CPT-4: 05373 05/04/2016 VITAMIN B12 INJECTION CPT-4: J3420 05/04/2016 PRESCRIP TRANSMIT VIA ERX SY CPT-4: G8553 05/04/2016 PRESCRIP TRANSMIT VIA ERX SY CPT-4: G8553 03/30/2016 THER/PROPH/DIAG INJ SC/IM CPT-4: 03821 03/17/2016 VITAMIN B12 INJECTION CPT-4: J3420 03/17/2016 THER/PROPH/DIAG INJ SC/IM CPT-4: 01805 02/15/2016 VITAMIN B12 INJECTION CPT-4: J3420 02/15/2016 THER/PROPH/DIAG INJ SC/IM CPT-4: 52393 01/19/2016 VITAMIN B12 INJECTION CPT-4: J3420 01/19/2016 THER/PROPH/DIAG INJ SC/IM CPT-4: 55389 12/07/2015 VITAMIN B12 INJECTION CPT-4: J3420 12/07/2015 ROCEPHIN, PER 250 MG CPT-4: J0696 09/06/2015 THER/PROPH/DIAG INJ SC/IM CPT-4: 55378 09/06/2015 VITAMIN B12 INJECTION CPT-4: J3420 09/06/2015 PRESCRIP TRANSMIT VIA ERX SY CPT-4: G8553 09/06/2015 ROCEPHIN, PER 250 MG CPT-4: J0696 07/05/2015 TRIAMCINOLONE ACET INJ NOS CPT-4: J3301 07/05/2015 PRESCRIP TRANSMIT VIA ERX SY CPT-4: G8553 07/05/2015 THER/PROPH/DIAG INJ SC/IM CPT-4: 11284 06/28/2015 VITAMIN B12 INJECTION CPT-4: J3420 06/28/2015 THER/PROPH/DIAG INJ SC/IM CPT-4: 63307 05/13/2015 VITAMIN B12 INJECTION CPT-4: J3420 05/13/2015 THER/PROPH/DIAG INJ SC/IM CPT-4: 91372 02/23/2015 VITAMIN B12 INJECTION CPT-4: J3420 02/23/2015 THER/PROPH/DIAG INJ SC/IM CPT-4: 42293 01/08/2015 VITAMIN B12 INJECTION CPT-4: J3420 01/08/2015 THER/PROPH/DIAG INJ SC/IM CPT-4: 73737 12/08/2014 VITAMIN B12 INJECTION CPT-4: J3420 12/08/2014 THER/PROPH/DIAG INJ SC/IM CPT-4: 13705 10/26/2014 VITAMIN B12 INJECTION CPT-4: J3420 10/26/2014 VITAMIN B12 INJECTION CPT-4: J3420 09/24/2014 THER/PROPH/DIAG INJ SC/IM CPT-4: 44194 09/24/2014 THER/PROPH/DIAG INJ SC/IM CPT-4: 20891 08/24/2014 VITAMIN B12 INJECTION CPT-4: J3420 08/24/2014 THER/PROPH/DIAG INJ SC/IM CPT-4: 99436 07/08/2014 VITAMIN B12 INJECTION CPT-4: J3420 07/08/2014 THER/PROPH/DIAG INJ SC/IM CPT-4: 67711 06/01/2014 VITAMIN B12 INJECTION CPT-4: J3420 06/01/2014 TRIAMCINOLONE ACET INJ NOS CPT-4: J3301 05/11/2014 VITAMIN B12 INJECTION CPT-4: J3420 04/27/2014 THER/PROPH/DIAG INJ SC/IM CPT-4: 28630 04/27/2014 FLU VAC NO PRSV 4 JINNY 3 YRS+ CPT-4: 80497 04/03/2014 ADMIN INFLUENZA VIRUS VAC Assigned to/Juliana Graham CPT-4: [id number] 04/03/2014 THER/PROPH/DIAG INJ SC/IM CPT-4: 71116 03/24/2014 THER/PROPH/DIAG INJ SC/IM CPT-4: 37845 02/24/2014 THER/PROPH/DIAG INJ SC/IM CPT-4: 93040 01/09/2014 THER/PROPH/DIAG INJ SC/IM CPT-4: 04988 11/27/2013 THER/PROPH/DIAG INJ SC/IM CPT-4: 72355 09/18/2013 VITAMIN B12 INJECTION CPT-4: J3420 09/18/2013 THER/PROPH/DIAG INJ SC/IM CPT-4: 49761 08/22/2013 VITAMIN B12 INJECTION CPT-4: J3420 08/22/2013 ROUTINE VENIPUNCTURE CPT-4: 56255 07/28/2013 VITAMIN B12 INJECTION CPT-4: J3420 07/28/2013 THER/PROPH/DIAG INJ SC/IM CPT-4: 48992 07/28/2013 THER/PROPH/DIAG INJ SC/IM CPT-4: 04470 06/16/2013 VITAMIN B12 INJECTION CPT-4: J3420 06/16/2013 THER/PROPH/DIAG INJ SC/IM CPT-4: 01133 05/21/2013 VITAMIN B12 INJECTION CPT-4: J3420 05/21/2013 ADMIN INFLUENZA VIRUS VAC CPT-4: G0008 04/23/2013 FLULAVAL VACC, 3 YRS & >, IM CPT-4: Q2036 04/23/2013 VITAMIN B12 INJECTION CPT-4: J3420 04/23/2013 THER/PROPH/DIAG INJ SC/IM CPT-4: 50556 04/23/2013 THER/PROPH/DIAG INJ SC/IM CPT-4: 73908 03/24/2013 VITAMIN B12 INJECTION CPT-4: J3420 03/24/2013 THER/PROPH/DIAG INJ SC/IM CPT-4: 38760 02/20/2013 VITAMIN B12 INJECTION CPT-4: J3420 02/20/2013 VITAMIN B12 INJECTION CPT-4: J3420 01/22/2013 PRESCRIP TRANSMIT VIA ERX SY CPT-4: G8553 01/22/2013 TRIAMCINOLONE ACET INJ NOS CPT-4: J3301 12/19/2012 VITAMIN B12 INJECTION CPT-4: J3420 12/19/2012 THER/PROPH/DIAG INJ SC/IM CPT-4: 10891 11/20/2012 VITAMIN B12 INJECTION CPT-4: J3420 11/20/2012 THER/PROPH/DIAG INJ SC/IM CPT-4: 15586 10/23/2012 VITAMIN B12 INJECTION CPT-4: J3420 10/23/2012 THER/PROPH/DIAG INJ SC/IM CPT-4: 67137 09/16/2012 VITAMIN B12 INJECTION CPT-4: J3420 09/16/2012 VITAMIN B12 INJECTION CPT-4: J3420 08/15/2012 THER/PROPH/DIAG INJ SC/IM CPT-4: 83935 08/15/2012 TRIAMCINOLONE ACET INJ NOS CPT-4: J3301 08/06/2012 THER/PROPH/DIAG INJ SC/IM CPT-4: 37915 08/06/2012 PRESCRIP TRANSMIT VIA ERX SY CPT-4: G8553 08/06/2012 VITAMIN B12 INJECTION CPT-4: J3420 07/19/2012 THER/PROPH/DIAG INJ SC/IM CPT-4: 10120 07/19/2012 DRAIN/INJECT JOINT/BURSA CPT-4: 20299 07/10/2012 THER/PROPH/DIAG INJ SC/IM CPT-4: 03301 06/19/2012 VITAMIN B12 INJECTION CPT-4: J3420 06/19/2012 VITAMIN B12 INJECTION CPT-4: J3420 05/22/2012 THER/PROPH/DIAG INJ SC/IM CPT-4: 70263 05/22/2012 ADMIN INFLUENZA VIRUS VAC CPT-4: G0008 04/22/2012 FLULAVAL VACC, 3 YRS & >, IM CPT-4: Q2036 04/22/2012 VITAMIN B12 INJECTION CPT-4: J3420 04/22/2012 VITAMIN B12 INJECTION CPT-4: J3420 03/19/2012 THER/PROPH/DIAG INJ SC/IM CPT-4: 96160 03/19/2012 VITAMIN B12 INJECTION CPT-4: J3420 02/15/2012 THER/PROPH/DIAG INJ SC/IM CPT-4: 29842 02/15/2012 THER/PROPH/DIAG INJ SC/IM CPT-4: 17239 01/18/2012 VITAMIN B12 INJECTION CPT-4: J3420 01/18/2012 TRIAMCINOLONE ACET INJ NOS CPT-4: J3301 12/28/2011 DRAIN/INJECT JOINT/BURSA CPT-4: 66981 12/28/2011 VITAMIN B12 INJECTION CPT-4: J3420 12/20/2011 THER/PROPH/DIAG INJ SC/IM CPT-4: 27950 12/20/2011 VITAMIN B12 INJECTION CPT-4: J3420 11/07/2011 THER/PROPH/DIAG INJ SC/IM CPT-4: 25595 11/07/2011 VITAMIN B12 INJECTION CPT-4: J3420 10/03/2011 THER/PROPH/DIAG INJ SC/IM CPT-4: 40158 10/03/2011 TRIAMCINOLONE ACET INJ NOS CPT-4: J3301 08/23/2011 DRAIN/INJECT JOINT/BURSA CPT-4: 02624 08/23/2011 THER/PROPH/DIAG INJ SC/IM CPT-4: 75085 08/23/2011 VITAMIN B12 INJECTION CPT-4: J3420 08/23/2011 VITAMIN B12 INJECTION CPT-4: J3420 07/28/2011 THER/PROPH/DIAG INJ SC/IM CPT-4: 16519 07/28/2011 VITAMIN B12 INJECTION CPT-4: J3420 06/29/2011 THER/PROPH/DIAG INJ SC/IM CPT-4: 37447 06/29/2011 KETOROLAC TROMETHAMINE INJ CPT-4: J1885 05/23/2011 VITAMIN B12 INJECTION CPT-4: J3420 05/23/2011 THER/PROPH/DIAG INJ SC/IM CPT-4: 14843 05/23/2011 ADMIN INFLUENZA VIRUS VAC CPT-4: G0008 04/26/2011 FLULAVAL VACC, 3 YRS & >, IM CPT-4: Q2036 04/26/2011 VITAMIN B12 INJECTION CPT-4: J3420 04/26/2011 THER/PROPH/DIAG INJ SC/IM CPT-4: 58842 04/26/2011 Vital Signs Date Vital 08/08/2018 Blood Pressure 1: 158/78 Code : 8480-6 Heart Rate 1: 53 bpm Height: 5'6" SpO2: 96% Weight: 08/05/2018 Blood Pressure 1: 150/78 Code : 8480-6 BMI: 36.0 Code : 74213-4 Heart Rate 1 : 51 bpm Height: 5'6" SpO2: 92% Weight: 223 lbs 05/29/2018 Blood Pressure 1: 120/64 Code : 8480-6 BMI: 35.5 Code : 57034-9 Heart Rate 1 : 58 bpm Height: 5'6" SpO2: 96% Weight: 220 lbs 05/07/2018 Blood Pressure 1: 130/60 Code : 8480-6 BMI: 35.5 Code : 39040-3 Heart Rate 1 : 60 bpm Height: 5'6" SpO2: 97% Weight: 220 lbs 01/29/2018 Blood Pressure 1: 150/80 Code : 8480-6 BMI: 35.5 Code : 84369-0 Heart Rate 1 : 68 bpm Height: 5'6" SpO2: 97% Waist Measure (cm): 109 cm Weight: 220 lbs 01/01/2018 Blood Pressure 1: 136/68 Code : 8480-6 BMI: 35.2 Code : 68651-9 Heart Rate 1 : 60 bpm Height: 5'6" Respiratory Rate: 16 bpm SpO2: 98% Weight: 218 lbs 12/27/2017 Height: Weight: 12/18/2017 Blood Pressure 1: 118/62 Code : 8480-6 BMI: 36.2 Code : 99895-1 Heart Rate 1 : 45 bpm Height: 5'6" SpO2: 98% Weight: 224 lbs 12/13/2017 Blood Pressure 1: 138/88 Code : 8480-6 Heart Rate 1: 92 bpm Height: SpO2: 98% Weight: 06/18/2017 Blood Pressure 1: 134/68 Code : 8480-6 BMI: 35.8 Code : 89628-1 Heart Rate 1 : 50 bpm Height: 5'6" SpO2: 98% Weight: 222 lbs 06/07/2017 Blood Pressure 1: 146/68 Code : 8480-6 BMI: 35.3 Code : 74853-3 Heart Rate 1 : 63 bpm Height: 5'6" SpO2: 99% Weight: 218 lbs 8 04/16/2017 Blood Pressure 1: 130/62 Code : 8480-6 BMI: 34.7 Code : 30989-3 Heart Rate 1 : 51 bpm Height: 5'6" SpO2: 94% Weight: 215 lbs 02/23/2017 Blood Pressure 1: 136/64 Code : 8480-6 BMI: 35.0 Code : 32190-3 Heart Rate 1 : 54 bpm Height: 5'6" SpO2: 96% Weight: 217 lbs 12/26/2016 Blood Pressure 1: 144/74 Code : 8480-6 BMI: 34.5 Code : 62585-8 Heart Rate 1 : 60 bpm Height: 5'6" SpO2: 97% Weight: 214 lbs 09/07/2016 Blood Pressure 1: 138/62 Code : 8480-6 Heart Rate 1: 86 bpm SpO2: 96% Temperature: 36.8 (C) / 98.2 (F) Weight: 207 lbs 08/29/2016 Blood Pressure 1: 132/58 Code : 8480-6 BMI: 33.9 Code : 03835-4 Heart Rate 1 : 55 bpm Height: 5'6" SpO2: 98% Weight: 210 lbs 06/12/2016 Blood Pressure 1: 128/76 Code : 8480-6 BMI: 33.2 Code : 83921-8 Heart Rate 1 : 57 bpm Height: 5'6" SpO2: 97% Weight: 206 lbs 05/04/2016 Blood Pressure 1: 130/72 Code : 8480-6 BMI: 33.9 Code : 52029-7 Heart Rate 1 : 74 bpm Height: 5'6" SpO2: 96% Temperature: 36.9 (C) / 98.5 (F) Weight: 210 lbs 03/30/2016 Blood Pressure 1: 116/66 Code : 8480-6 BMI: 34.3 Code : 59082-2 Heart Rate 1 : 67 bpm Height: 5'6" SpO2: 98% Weight: 212 lbs 8 oz 11/30/2015 Blood Pressure 1: 138/64 Code : 8480-6 BMI: 35.2 Code : 78247-2 Heart Rate 1 : 59 bpm Height: 5'6" SpO2: 98% Weight: 218 lbs 09/06/2015 Blood Pressure 1: 138/668 Code: 8480-6 BMI: 35.3 Code: 98563-7 Heart Rate 1: 68 bpm Height: 5'6" Weight: 219 lbs 08/04/2015 Blood Pressure 1: 140/82 Code : 8480-6 Heart Rate 1: 62 bpm SpO2: 98% Weight: 220 lbs 07/05/2015 Blood Pressure 1: 122/80 Code : 8480-6 BMI: 36.0 Code : 50511-9 Heart Rate 1 : 63 bpm Height: 5'6" SpO2: 97% Temperature: 36.3 (C) / 97.3 (F) Weight: 223 lbs 06/28/2015 Blood Pressure 1: 150/74 Code : 8480-6 BMI: 36.3 Code : 23813-0 Heart Rate 1 : 65 bpm Height: 5'6" SpO2: 96% Weight: 225 lbs 02/23/2015 Blood Pressure 1: 142/64 Code : 8480-6 BMI: 37.0 Code : 65952-5 Heart Rate 1 : 56 bpm Height: 5'6" SpO2: 96% Weight: 229 lbs 01/08/2015 Blood Pressure 1: 128/88 Code : 8480-6 BMI: 37.3 Code : 61835-5 Heart Rate 1 : 74 bpm Height: 5'6" Weight: 231 lbs 09/24/2014 Blood Pressure 1: 128/70 Code : 8480-6 BMI: 36.8 Code : 04628-6 Heart Rate 1 : 68 bpm Height: 5'6" SpO2: 96% Weight: 228 lbs 05/11/2014 Blood Pressure 1: 148/82 Code : 8480-6 Height: Temperature: 36.2 (C) / 97.2 (F) Weight: 05/01/2014 Blood Pressure 1: 128/68 Code : 8480-6 BMI: 36.6 Code : 14093-8 Heart Rate 1 : 74 bpm Height: 5'6" Weight: 227 lbs 04/03/2014 Blood Pressure 1: 130/72 Code : 8480-6 BMI: 36.8 Code : 56126-0 Heart Rate 1 : 76 bpm Height: 5'6" Weight: 228 lbs 11/24/2013 Blood Pressure 1: 146/64 Code : 8480-6 BMI: 35.5 Code : 21593-6 Heart Rate 1 : 64 bpm Height: 5'6" Weight: 220 lbs 08/22/2013 Weight: 223 lbs 07/28/2013 Blood Pressure 1: 112/68 Code : 8480-6 BMI: 36.2 Code : 01677-0 Heart Rate 1 : 80 bpm Height: 5'6" Weight: 224 lbs 06/16/2013 Blood Pressure 1: 132/60 Code : 8480-6 BMI: 37.6 Code : 41589-5 Heart Rate 1 : 72 bpm Height: 5'6" Weight: 233 lbs 01/22/2013 Blood Pressure 1: 130/64 Code : 8480-6 BMI: 37.3 Code : 85958-0 Heart Rate 1 : 80 bpm Height: 5'6" Weight: 231 lbs 10/02/2012 Blood Pressure 1: 146/90 Code : 8480-6 BMI: 36.8 Code : 67865-4 Heart Rate 1 : 60 bpm Height: [...] Code : 8480-6 BMI: 37.1 Code : 60273-1 Heart Rate 1 : 60 bpm Height: 5'6" Respiratory Rate: 16 bpm Weight: 230 lbs 12/20/2011 Blood Pressure 1: 142/66 Code : 8480-6 BMI: 35.8 Code : 39749-6 Heart Rate 1 : 66 bpm Height: [...] Code : 8480-6 BMI: 36.2 Code : 02776-9 Heart Rate 1 : 64 bpm Height: [...] knee pain Quality intermittent 02/23/2015 seeing Kevin Luis diabetes mellitus Test results HgbA1c level 7.6 [...] data Encounters Encounter Performer Location Codes Date ([id number]) Miscellaneous no charge Diagnosis: Type 2 diabetes mellitus with hyperglycemia[ICD10: E11.65] Daisy Garcia MD , [facility] CPT-4: 11888 08/12/2018 ([id number]) 64987 EST. PATIENT, LEVEL II Diagnosis: Type 2 diabetes mellitus with hyperglycemia[ICD10: E11.65] Chantell Garcia MD, [facility] CPT-4: 88519 08/08/2018 ([id number]) 02924 EST. PATIENT, LEVEL IV Diagnosis: Essential (primary) hypertension[ICD10: I10] Diagnosis: Type 2 diabetes mellitus with hyperglycemia[ICD10: E11.65] Diagnosis: Chronic kidney disease, stage 3 (moderate)[ICD10: N18.3] Chantell Garcia MD , [facility] CPT-4: 37514 08/05/2018 [id number] EST. PATIENT, LEVEL III Diagnosis: Sacrococcygeal disorders, not elsewhere classified[ICD10: M53.3] Diagnosis: Low back pain[ICD10: M54.5] Diagnosis: Sciatica, right side[ICD10: M54.31] Yady Garcia MD, [facility] CPT-4: 85087 05/29/2018 ([id number]) 84087 EST. PATIENT, LEVEL IV Diagnosis: Type 2 diabetes mellitus without complications[ICD10: E11.9] Diagnosis: Chronic kidney disease, stage 3 (moderate)[ICD10: N18.3] Diagnosis: Essential (primary) hypertension[ICD10: I10] Diagnosis: Other vitamin B12 deficiency anemias[ICD10: D51.8] Chantell Garcia MD, [facility] CPT-4: 93334 05/07/2018 ([id number]) 80982 EST. PATIENT, LEVEL IV Diagnosis: Type 2 diabetes mellitus without complications[ICD10: E11.9] Diagnosis: Essential (primary) hypertension[ICD10: I10] Diagnosis: Chronic atrial fibrillation[ICD10: I48.2] Daisy Garcia MD [facility] CPT-4: 77476 01/01/2018 ([id number]) 08598 EST. 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 PATIENT, LEVEL IV Diagnosis: Type 2 diabetes mellitus with hyperglycemia[ICD10: E11.65] Diagnosis: Essential (primary) hypertension[ICD10: I10] Diagnosis: Pain in left knee[ICD10: M25.562] Diagnosis: Other vitamin B12 deficiency anemias[ICD10: D51.8] Daisy Garcia MD, [facility] CPT-4: 34588 12/18/2017 [id number] EST. PATIENT, LEVEL III Diagnosis: Pain in left knee[ICD10: M25.562] Yady Garcia MD [facility] CPT -4: 07577 12/13/2017 ([id number]) 62571 EST. PATIENT, LEVEL IV Diagnosis: Type 2 diabetes mellitus without complications[ICD10: E11.9] Diagnosis: Essential (primary) hypertension[ICD10: I10] Diagnosis: Other vitamin B12 deficiency anemias[ICD10: D51.8] Diagnosis: Allergic rhinitis due to animal (cat) (dog) hair and dander[ICD10: J30.81] Daisy Garcia MD, [facility] CPT-4: 45489 2016 ([id number]) 46668 EST. 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 PATIENT, LEVEL IV Diagnosis: Type 2 diabetes mellitus without complications[ICD10: E11.9] Diagnosis: Essential (primary) hypertension[ICD10: I10] Diagnosis: Chronic atrial fibrillation[ICD10: I48.2] Daisy Garcia MD, [facility] CPT-4: 59407 04/16/2017 ([id number]) 66115 EST. PATIENT, LEVEL III Diagnosis: Sciatica, left side[ICD10: M54.32] Diagnosis: Sacroiliitis, not elsewhere classified[ICD10: M46.1] Chantell Garcia MD, [facility] CPT-4: 22438 02/23/2017 ([id number]) 35511 EST. PATIENT, LEVEL IV Diagnosis: Type 2 diabetes mellitus without complications[ICD10: E11.9] Diagnosis: Essential (primary) hypertension[ICD10: I10] Daisy Garcia MD, [facility] CPT-4: 64169 12/26/2016 ([id number]) 41169 EST. PATIENT, LEVEL III Diagnosis: Cough[ICD10: R05] Diagnosis: Acute bronchitis, unspecified[ICD10: J20.9] Chantell Garcia MD, [facility] CPT-4: 24577 09/07/2016 ([id number]) 79552 EST. PATIENT, LEVEL IV Diagnosis: Type 2 diabetes mellitus without complications[ICD10: E11.9] Diagnosis: Cough[ICD10: R05] Diagnosis: Acute laryngopharyngitis[ICD10: J06.0] Diagnosis: Acute recurrent maxillary sinusitis[ICD10: J01.01] Daisy Garcia MD, [facility] CPT-4: 00398 08/29/2016 77034 EST. PATIENT, LEVEL IV Diagnosis: Other allergic rhinitis[ICD10: J30.89] Diagnosis: Other vitamin B12 deficiency anemias[ICD10: D51.8] Yayd Garcia MD, [facility] CPT-4: 66075 06/12/2016 ([id number]) 90744 EST. PATIENT, LEVEL III Diagnosis: Urinary tract infection, site not specified[ICD10: N39.0] Diagnosis: Fever, unspecified[ICD10: R50.9] Diagnosis: Other vitamin B12 deficiency anemias[ICD10: D51.8] Chantell Garcia MD, [facility] CPT-4: 24561 05/04/2016 ([id number]) 09009 EST. PATIENT, LEVEL IV Diagnosis: Type 2 diabetes mellitus with diabetic autonomic (poly)neuropathy[ ICD10: E11.43] Diagnosis: Essential (primary) hypertension[ICD10: I10] Daisy Garcia MD, [facility] CPT-4: 37195 03/30/2016 ([id number]) 19772 EST. PATIENT, LEVEL IV Diagnosis: Type 2 diabetes mellitus with hyperglycemia[ICD10: E11.65] Diagnosis: Essential (primary) hypertension[ICD10: I10] Daisy Garcia MD, [facility] CPT-4: 21425 11/30/2015 ([id number]) 57715 EST. PATIENT, LEVEL III Diagnosis: Acute recurrent maxillary sinusitis[ICD10: J01.01] Diagnosis: Unspecified acute conjunctivitis, right eye[ICD10: H10.31] Diagnosis: Vitamin B12 deficiency anemia, unspecified[ICD10: D51.9] Chantell Garcia MD , [facility] CPT-4: 24437 09/06/2015 09948 EST. PATIENT, LEVEL III Diagnosis: Pain in right knee[ICD10: M25.561] Diagnosis: Essential (primary) hypertension[ICD10: I10] Diagnosis: Vitamin B12 deficiency anemia, unspecified[ICD10: D51.9] Yady Garcia MD, [facility] CPT-4: 80253 08/04/2015 ([id number]) 01598 EST. PATIENT, LEVEL III Diagnosis: Streptococcal pharyngitis[ICD10: J02.0] Diagnosis: Acute recurrent maxillary sinusitis[ICD10: J01.01] Chantell Garcia MD, [facility] CPT-4: 97747 07/05/2015 ([id number]) 51277 EST. PATIENT, LEVEL IV Diagnosis: Type 2 diabetes mellitus with hyperglycemia[ICD10: E11.65] Diagnosis: Essential (primary) hypertension[ICD10: I10] Diagnosis: Vitamin B12 deficiency anemia, unspecified[ICD10: D51.9] Daisy Garcia MD, [facility] CPT-4: 84608 06/28/2015 ([id number]) 28472 EST. PATIENT, LEVEL IV Diagnosis: DM W/O COMPLICATION TYPE II, UNCONTROLLED[ICD9: 250.02] Diagnosis: ESSENTIAL HYPERTENSION[ICD9: 401.9] Diagnosis: Iron deficiency[ICD9: 280.9] Diagnosis: OTH SCREENING MAMMOGRAM[ICD9: V76.12] Diagnosis: B12 deficiency[ICD9: 266.2] Daisy Garcia MD, [facility] CPT- 4: 41386 02/23/2015 ([id number]) 13341 EST. PATIENT, LEVEL IV Diagnosis: DM W/O COMPLICATION TYPE II, UNCONTROLLED[ICD9: 250.02] Diagnosis: ESSENTIAL HYPERTENSION[ICD9: 401.9] Diagnosis: Right knee pain[ICD9: 719.46] Diagnosis: B12 deficiency[ICD9: 266.2] Chantell Garcia MD, [facility] CPT-4: 85312 01/08/2015 ([id number]) 65791 EST. PATIENT, LEVEL IV Diagnosis: DM W/O COMPLICATION TYPE II, UNCONTROLLED[ICD9: 250.02] Diagnosis: ESSENTIAL HYPERTENSION[ICD9: 401.9] Diagnosis: Iron deficiency[ICD9: 280.9] Daisy Garcia MD, [facility] CPT- 4: 56836 09/24/2014 [id number]) 20882 EST. PATIENT, LEVEL III Diagnosis: Sacroiliitis[ICD9: 720.2] Diagnosis: Left sided sciatica[ICD9: 724.3] Chantell Garcia MD, [facility] CPT-4: 00657 05/11/2014 ([id number]) 82221 EST. PATIENT, LEVEL III Diagnosis: CELLULITIS OF BUTTOCK[ICD9: 682.5] Daisy Garcia MD, [facility] CPT-4: 15552 05/01/2014 26808 EST. PATIENT, LEVEL IV Diagnosis: ESSENTIAL HYPERTENSION[ICD9: 401.9] Diagnosis: DIABETES TYPE II[ICD9: 250.00] Diagnosis: Iron deficiency[ICD9: 280.9] Diagnosis: LUMBAGO[ICD9: 724.2] Daisy Garcia MD, [facility] CPT-4: 57186 04/03/2014 ([id number]) 59248 EST. PATIENT, LEVEL IV Diagnosis: ESSENTIAL HYPERTENSION[SNOMED: 51968762] Diagnosis: DIABETES TYPE II[SNOMED: 739183308] Diagnosis: ANEMIA[ICD9: 285.9] Diagnosis: Iron deficiency[ICD9: 280.9] Daisy Garcia MD [facility] CPT- 4: 16479 11/24/2013 ([id number]) 51864 EST. PATIENT, LEVEL IV Diagnosis: ESSENTIAL HYPERTENSION[SNOMED: 82563381] Diagnosis: DIABETES TYPE II[SNOMED: 606071916] Diagnosis: EDEMA[ICD9: 782.3] Daisy Garcia MD [facility] CPT-4: 87828 07/28/2013 ([id number]) 84329 EST. PATIENT, LEVEL IV Diagnosis: ESSENTIAL HYPERTENSION[SNOMED: 49033955] Diagnosis: DIABETES TYPE II[SNOMED: 418356279] Diagnosis: EDEMA[ICD9: 782.3] Diagnosis: B-COMPLEX DEFIC NEC[ICD9: 266.2] Daisy Garcia MD [facility] CPT-4: 14195 06/16/2013 ([id number]) 21294 EST. PATIENT, LEVEL IV Diagnosis: ESSENTIAL HYPERTENSION[SNOMED: 12523909] Diagnosis: DIABETES TYPE II[SNOMED: 424517509] Diagnosis: EDEMA[ICD9: 782.3] Diagnosis: B-COMPLEX DEFIC NEC[ICD9: 266.2] Daisy Garcia MD, [facility] CPT-4: 25889 01/22/2013 ([id number]) 26590 EST. PATIENT, LEVEL III Diagnosis: Lumbago[ICD9: 724.2] Diagnosis: Sacroiliitis[ICD9: 720.2] Diagnosis: ESSENTIAL HYPERTENSION[SNOMED: 36412380] Daisy Garcia MD, [facility] CPT-4: 99105 10/02/2012 ([id number]) 73109 EST. PATIENT, LEVEL III Diagnosis: ACUTE URI[ICD9: 465.9] Daisy Garcia MD [facility] CPT-4: 01440 08/06/2012 ([id number]) 46878 EST. PATIENT, LEVEL IV Diagnosis: ESSENTIAL HYPERTENSION[SNOMED: 84210039] Diagnosis: DIABETES TYPE II[SNOMED: 785929505] Diagnosis: ANEMIA[ICD9: 285.9] Daisy Garcia MD, [facility] CPT-4: 93189 07/04/2012 ([id number]) 07277 EST. 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 PATIENT, LEVEL III Diagnosis: Sciatica of right side[ICD9: 724.3] Diagnosis: Sacroiliitis[ICD9: 720.2] Chantell Garcia MD, [facility] CPT-4: 51375 12/28/2011 ([id number]) 12983 EST. PATIENT, LEVEL IV Diagnosis: DIABETES TYPE II[SNOMED: 410404248] Diagnosis: ESSENTIAL HYPERTENSION[SNOMED: 38957326] Daisy Garcia MD, [facility] CPT-4: 80169 12/20/2011 ([id number]) 94952 EST. PATIENT, LEVEL IV Diagnosis: ESSENTIAL HYPERTENSION[SNOMED: 89906974] Diagnosis: DIABETES TYPE II[SNOMED: 183320848] Diagnosis: PAIN IN LIMB[ICD9: 729.5] Diagnosis: LUMBAGO[ICD9: 724.2] Diagnosis: Sacroiliitis[ICD9: 720.2] Daisy Garcia MD, [facility] CPT-4: 06484 08/23/2011 [id number] EST. 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 PATIENT, LEVEL IV Diagnosis: DIABETES TYPE II[SNOMED: 644719829] Diagnosis: ESSENTIAL HYPERTENSION[SNOMED: 27658476] Diagnosis: Feces incontinence[ICD9: 787.60] [facility] CPT-4: 11542 04/26/2011 Plan of Care Planned Activity Notes [...] of plan. 08/08/2018 Appointment: Ch[facility] Singh [phone] (30 min) [facility] 08/08/2018 Patient Education: Patient Medication Summary [...] labs 08/05/2018 Appointment: Chantell Singh WPtel: [address] [phone] [place] (30 min) Complex 08/05/2018 Patient Education: Patient [...] they worsen. 05/29/2018 Appointment: Yady Harper [facility]Ptel: [phone] [place] (15 min) Moderate 05/29/2018 Patient Education: Patient [...] home. 01/01/2018 Appointment: Daisy Garcia WPtel: [phone] [facility] (15 min) Moderate 01/01/2018 Patient [...] the weekend. 12/27/2017 Appointment: Daisy Garcia WPtel: [phone] [facility] (15 min) Moderate 12/27/2017 Patient Education: Patient [...] in clinic. 12/18/2017 Appointment: Daisy Garcia WPtel: [facility] [place] (15 min) Moderate 12/18/2017 Patient Education: Patient Medication Summary Completed 12/18/2017 Care Plan: COMPLETE CBC AUTOMATED LOINC : 29011-7 Pending 12/18/2017 Visit Plan: Left knee pain - will have pt use RICE - Rest, Ice, Compression, Elevation - will order x-ray - The pt is to use prn antiinflammatories to manage acute pain. The patient is to call the office if the pain is worsening or does not improve. 12/13/2017 Appointment: Yady Harper WPtel: [facility] [place] (30 min) Complex 12/13/2017 Patient Education: Patient Medication Summary Completed 12/13/2017 Care Plan: X-RAY EXAM OF KNEE 3 LOINC : 76134-2 Pending 12/13/2017 Appointment: Injection 11/20/2017 Patient Education: Patient Medication Summary Completed 11/20/2017 Appointment: Daisy Garcia WPtel: [facility] [place] (15 min) Moderate 09/18/2017 Appointment: Injection [...] today. 06/18/2017 Appointment: Daisy Garcia WPtel: 101[address] [facility] [place] (15 min) Moderate 06/18/2017 Patient Education: Patient [...] 5 days 06/07/2017 Appointment: Daisy Garcia WPtel: [phone] [facility] (15 min) Moderate 06/07/2017 Patient Education: Patient Medication Summary Completed 06/07/2017 Patient Education: Obesity Completed 06/07/2017 Appointment: Injection 05/09/2017 Patient Education: Patient Medication Summary Completed 05/09/2017 Appointment: Daisy Garcia WPtel: 101 [facility] [place] (15 min) Moderate 04/26/2017 Patient Education: [...] and cardizem 04/16/2017 Appointment: Daisy Garcia WPtel: 1010 [facility] [place] (15 min) Moderate 04/16/2017 Appointment: [facility] Garcia [facility]el[facility] (15 min) Moderate 04/16/2017 Patient Education: Patient [...] controlled. 12/26/2016 Appointment: Daisy Garcia WPtel: [phone] [facility] (15 min) Moderate 12/26/2016 Patient Education: Patient Medication Summary Completed 12/26/2016 Appointment: Injection 11/14/2016 Patient Education: Patient Medication Summary Completed 11/14/2016 Visit Plan: Bronchitis - acute case of bronchitis identified. Pt has been given antibiotics, breathing treatments as appropriate, and pt has been instructed to call if symptoms are not improved, or if symptoms acutely worsen. 09/07/2016 Appointment: Chantell Singh WPtel: [address] [phone] [place] (30 min) Complex 09/07/2016 Patient [...] improvement. 08/29/2016 Appointment: Daisy Garcia WPtel: [phone] [facility] (15 min) Moderate 08/29/2016 Patient Education: Patient Medication Summary Completed 08/29/2016 Patient Education: Obesity Completed 08/29/2016 Appointment: [facility] Garcia [facility]el: [facility] [place] (15 min) Moderate 08/22/2016 Appointment: Daisy Garcia WPtel: [facility] [place] (15 min) Moderate 08/02/2016 Appointment: Chantell Singh WPtel: [address] [phone] [place] (30 min) Complex 08/02/2016 Visit [...] allergy spray. 06/12/2016 Appointment: Yady Harper WPtel: [facility] (15 min) Moderate 06/12/2016 Patient Education: Patient [...] the office 05/04/2016 Appointment: Chantell Singh WPtel: [phone] (15 min) Moderate 05/04/2016 Patient Education: [...] cream. 03/30/2016 Appointment: Daisy Garcia WPtel: [phone] [place] (15 min) Moderate 03/30/2016 Patient Education: Patient Medication Summary Completed 03/30/2016 Patient Education: Hypertension Completed 03/30/2016 Appointment: Injection 03/17/2016 Patient Education: Patient Medication Summary Completed 03/17/2016 Appointment: Injection 02/15/2016 Patient Education: Patient Medication Summary Completed 02/15/2016 Appointment: Daisy Garcia WPtel: [facility] [place] (15 min) Moderate 01/26/2016 Appointment: Injection [...] acute concerns. 11/30/2015 Appointment: Daisy Garcia WPtel: [facility] [place] (15 min) Moderate 11/30/2015 Patient Education: Patient Medication Summary Completed 11/30/2015 Patient Education: Obesity Completed 11/30/2015 Appointment: Daisy Garcia WPtel: [facility] [place] (15 min) Moderate 10/26/2015 Visit Plan: [...] at home. 06/28/2015 Appointment: Daisy Garcia WPtel: [facility] (15 min) Moderate 06/28/2015 Patient Education: Patient [...] without resting. 02/23/2015 Appointment: Daisy Garcia WPtel: [facility] Follow up 02/23/2015 Patient Education: Patient Medication Summary Completed 02/23/2015 Patient Education: Hypertension Completed 02/23/2015 Care Plan: SCREENINGMAMMOGRAPHYDIGITAL LOINC : 15034-7 Ordered 02/23/2015 Visit Plan: Depression - uncontrolled [...] Care Plan: COMPLETE CBC AUTOMATED LOINC : 25968-9 Ordered 01/08/2015 Appointment: Injection 12/08/2014 Patient Education: [...] and diarrhea. 09/24/2014 Appointment: Daisy Garcia WPtel: [facility] Follow up 09/24/2014 Patient Education: Patient Medication Summary Completed 09/24/2014 Patient Education: Hypertension Completed 09/24/2014 Appointment: Daisy Garcia WPtel: [address] [place], [place] [id number] [place] Injection 08/24/2014 Patient Education: Patient Medication [...] warmth, discharge. 05/01/2014 Appointment: Daisy Garcia WPtel: [facility] [place] Follow up 05/01/2014 Patient Education: Patient Medication Summary Completed 05/01/2014 Appointment: Daisy Garcia WPtel: [facility] [place] Injection 04/27/2014 Patient Education: Patient Medication [...] pain 04/03/2014 Appointment: [facility]ant[facility] Singh [facility]Ptel: [phone] [place] Follow up 04/03/2014 Patient Education: Patient Medication Summary Completed 04/03/2014 Patient Education: Hypertension Completed 04/03/2014 Visit Plan: vitamin b12 injection 03/24/2014 Appointment: Daisy Garcia WPtel: [facility] [place] Injection 03/24/2014 Patient Education: Patient Medication Summary Completed 03/24/2014 Appointment: Daisy Garcia WPtel: [facility] [place] Follow up 03/23/2014 Appointment: Daisy Garcia WPtel: [facility] [place] Injection 02/24/2014 Patient Education: Patient Medication Summary Completed 02/24/2014 Appointment: Chantell Singh WPtel: [phone] [place] Injection 01/09/2014 Patient Education: Patient Medication [...] oral supplementation. 11/24/2013 Appointment: Daisy Garcia WPtel: [facility] Follow up 11/24/2013 Patient Education: Patient Medication Summary Completed 11/24/2013 Patient Education: Hypertension Completed 11/24/2013 Appointment: Daisy Garcia WPtel: [address] [place] [address] [place] Follow up 11/12/2013 Appointment: Daisy Garcia WPtel: [address] [place] [address] [place] Follow up 10/27/2013 Appointment: Chantell Singh WPtel: [phone] [place] Injection 09/18/2013 Patient Education: Patient Medication Summary Completed 09/18/2013 Appointment: Chantell Singh WPtel: [phone] [place] Injection 08/22/2013 Patient Education: Patient Medication [...] today 07/28/2013 Appointment: Daisy Garcia WPtel: [facility] Follow up 07/28/2013 Patient Education: Patient Medication Summary Completed 07/28/2013 Patient Education: Hypertension Completed 07/28/2013 Appointment: Chantell Singh WPtel: [phone] [place] Injection 06/20/2013 Visit Plan: Diabetes Mellitus [...] edema. 06/16/2013 Appointment: Daisy Garcia WPtel: [facility] [place] Follow up 06/16/2013 Patient Education: Patient Medication Summary Completed 06/16/2013 Patient Education: Hypertension Completed 06/16/2013 Appointment: Chantell Singh WPtel: [phone] [place] Injection 05/21/2013 Patient Education: Patient Medication Summary Completed 05/21/2013 Appointment: Daisy Garcia WPtel: [facility] [place] Injection 04/23/2013 Patient Education: Patient Medication Summary Completed 04/23/2013 Appointment: Daisy Garcia WPtel: 1015 [facility] [place] Injection 03/24/2013 Patient Education: Patient Medication Summary Completed 03/24/2013 Appointment: Daisy Garcia WPtel: 1019 [facility] [place] Injection 02/20/2013 Patient Education: Patient Medication [...] peripheral edema. 01/22/2013 Appointment: Daisy Garcia WPtel: [facility] [place] Follow up 01/22/2013 Patient Education: Patient Medication Summary Completed 01/22/2013 Patient Education: Hypertension Completed 01/22/2013 Appointment: Daisy Garcia WPtel: [facility] [place] Injection 01/21/2013 Patient Education: Patient Medication Summary Completed 12/19/2012 Appointment: Daisy Garcia WPtel: [facility] [place] Injection 11/22/2012 Appointment: BanksArnold qureshiy WPtel: [facility] [place] Injection 11/20/2012 Patient Education: Patient Medication Summary Completed 11/20/2012 Appointment: Chantell Singh WPtel: 1015 [phone] [place] Injection 11/08/2012 Appointment: Daisy Garcia WPtel: 1015 [facility] [place] Injection 10/23/2012 Patient Education: Patient Medication [...] Completed 10/02/2012 Appointment: Chantell Singh [facility]Ptel: [phone] [place] Lab Draw 09/16/2012 Patient Education: Patient [...] office. 08/06/2012 Appointment: Chantell Singh WPtel: [phone] Sick 08/06/2012 Patient Education: Patient Medication Summary Completed 08/06/2012 Patient Education: Patient Medication Summary Completed 07/19/2012 Visit Plan: Joint Injection - Pt was given post - injection instructions. The pt has been advised to use antiinflammatories post injection today, ice to the injected site, call if redness, warmth, or increased pain occurs at the site of injection. 07/10/2012 Appointment: Daisy Garcia WPtel: 1017 [facility] Injection 07/10/2012 Patient Education: Patient Medication Summary [...] less controlled. 07/04/2012 Appointment: Daisy Garcia WPtel: 101 [facility] [place] Follow up 07/04/2012 Patient Education: Patient Medication Summary Completed 07/04/2012 Patient Education: Hypertension Completed 07/04/2012 Appointment: Daisy Garcia WPtel: 1015 [facility] [place] Injection 06/19/2012 Patient Education: Patient Medication [...] in the office. 05/22/2012 Appointment: Chantell Singh tel: [phone] Follow up 05/22/2012 Appointment: Chantell Singh WPtel: [phone] Follow up 05/22/2012 Patient Education: Patient Medication [...] the office 04/22/2012 Appointment: Chantell Singh WPtel: [phone] [place] Established Patient Preventative visit 04/22/2012 Patient Education: Patient Medication Summary Completed 04/22/2012 Patient Education: High Blood Pressure: Essential Hypertension Completed 2011 Appointment: Chantell Singh WPtel: [phone] [place] Injection 03/19/2012 Patient Education: Patient Medication Summary Completed 03/19/2012 Appointment: Daisy Garcia WPtel: [facility] [place] Injection 02/15/2012 Patient Education: Patient Medication Summary Completed 02/15/2012 Appointment: Daisy Garcia WPtel: [facility] [place] Injection 01/18/2012 Patient Education: Patient Medication [...] any worse. 12/28/2011 Appointment: Chantell Singh WPtel: [phone] [place] Other 12/28/2011 Patient Education: Patient Medication [...] shot today. 12/20/2011 Appointment: Daisy Garcia WPtel: 1010 [facility] [place] Other 12/20/2011 Patient Education: Patient Medication Summary Completed 12/20/2011 Patient Education: High Blood Pressure: Essential Hypertension Completed 2011 Appointment: Chantell Singh WPtel: [address] [phone] [place] Injection 11/07/2011 Patient Education: Patient Medication Summary Completed 11/07/2011 Appointment: Daisy Garcia WPtel: 1013 [facility] [place] Injection 10/03/2011 Patient Education: Patient Medication Summary Completed 10/03/2011 Appointment: Daisy Garcia WPtel: 1018 [facility] [place] Injection 08/28/2011 Visit Plan: Hypertension - [...] left today 08/23/2011 Appointment: Daisy Garcia WPtel: 1016 [facility] [place] 08/23/2011 Patient Education: Patient Medication Summary Completed 08/23/2011 Patient Education: High Blood Pressure: Essential Hypertension Completed 2011 Appointment: Chantell Singh [facility]Ptel: [phone] [place] Injection 07/28/2011 Patient Education: Patient Medication Summary Completed 07/28/2011 Visit Plan: b12 injection 06/29/2011 Appointment: Chantell Singh WPtel: [phone] [place] Injection 06/29/2011 Patient Education: Patient Medication [...] office 05/23/2011 Appointment: Chantell Singh WPtel: [phone] Other 05/23/2011 Patient Education: Patient Medication Summary [...] IRON. 04/26/2011 Appointment: Daisy Garcia WPtel: [facility] Other 04/26/2011 Patient Education: Patient Medication Summary [...] - I have called this rx to [facility]. Rx [facility] acyclovir sent [facility] [...] shot today. Once pt runs out of [place], she is to start on victoza at [...] is seeing Dr Shields -stopped glipizide and bymakenzie -monitor labs IPRO placement tomorrow . Hypertension [...] is seeing Dr Shields -stopped glipizide and bymakenzie -monitor labs . Hypertension - well controlled [...]
--- OUTSIDE RECORDS SUMMARY | 2018-10-02 06:57 | XMS REPORT | CCD ---
Author Author Daisy [facility] Organization [facility] Address [address] [place] [address] Phone Care Team Providers Care Orthopedics Nurse Name Role Phone Daisy Garcia PP Unavailable CCM Unavailable Summary Purpose Interface Exchange Insurance Providers Payer name Policy type / Coverage type Covered democrat ID Effective Begin Date Effective End Date WPS Medicare Part B Medicare Part B [id number] 2018 Unknown [employer] [employer] Medicare Part B [id number] Unknown Family history Sister Diagnosis Age At [...] 1 daughter 04/21/[address]: 120971275 Nonsmoker 04/21/[address]: 377599499 Never drinks alcohol 04/21/2011 Has the patient [...] Start Date Stop Date Status Fill Instructions metoprolol succinate ER 25 mg capsule sprinkle, ext. release 24 hr RxNorm: 5605337 1 Capsule(s) PO daily 08/05/2018 Active Lasix 20 mg tablet RxNorm: 182562 TAKE ONE TABLET BY MOUTH DAILY NEEDED FOR SWELLING. TAKE POTASSIUM WITH EACH DOSE. 08/02/2018 04/28/2019 Active potassium chloride ER 20 mEq tablet,extended release(part/ cryst) RxNorm: 5753397 TAKE ONE TABLET BY MOUTH DAILY WHEN YOU TAKE LASIX (FUROSEMIDE) 08/02/2018 07/27/2019 Active Lasix 20 mg tablet RxNorm: 559642 Tablet(s) TAKE ONE TABLET BY MOUTH DAILY NEEDED FOR SWELLING. TAKE POTASSIUM WITH EACH DOSE 201808/01/2018 Inactive potassium chloride ER 20 mEq tablet,extended release(part/ cryst) RxNorm: 2453835 Tablet(s) TAKE ONE TABLET BY MOUTH DAILY WHEN YOU TAKE LASIX (FUROSEMIDE) 08/02/2018 08/01/2018 Inactive spironolactone 25 mg tablet RxNorm: 261066 Tablet(s) TAKE ONE TABLET BY MOUTH TWICE A DAY 06/11/2018 08/07/2018 Inactive Zorvolex 35 mg capsule RxNorm: 7873999 1 Capsule(s) PO TID 07/201706/28/2018 Inactive Lexapro 5 mg tablet RxNorm: 671589 TAKE ONE TABLET BY MOUTH EVERY EVENING 05/30/2018 08/22/2019 Active Zorvolex 35 mg capsule RxNorm: 1096252 1 Capsule(s) PO TID 07/201705/29/2018 Inactive Kenalog 40 mg/mL suspension for injection RxNorm: 9777381 1 Milliliter(s) Inj 05/29/2018 05/29/2018 Inactive Lomotil 2.5 mg-0.025 mg tablet RxNorm: 5681393 Tablet(s) PO TAKE ONE TABLET BY MOUTH EVERY 8 HOURS NEEDED 05/08/2018 07/06/2018 Inactive warfarin 2 mg tablet RxNorm: 964418 1 Tablet(s) PO daily 3 days per week, 1/2 Tablet PO 4 days per week- Dr. Andrews manages 05/07/2018 No Stop Date Active cyanocobalamin (vit B-12) 1,000 mcg/mL injection solution RxNorm: 243571 1 Milliliter(s) Inj 05/07/2018 05/07/2018 Inactive Lasix 20 mg tablet RxNorm: 456877 TAKE ONE TABLET BY MOUTH DAILY NEEDED FOR SWELLING. TAKE POTASSIUM WITH EACH DOSE 04/30/2018 08/01/2018 Inactive Synthroid 50 mcg tablet RxNorm: 469798 TAKE ONE TABLET BY MOUTH EVERY DAY. 04/23/2018 07/16/2019 Active cyanocobalamin (vit B-12) 1,000 mcg/mL injection solution RxNorm: 306201 Milliliter(s) Inj 04/04/2018 04/04/2018 Inactive glipizide 10 mg tablet RxNorm: 913816 Tablet(s) TAKE ONE TABLET BY MOUTH TWICE A DAY 04/03/2018 07/16/2018 Inactive amlodipine 5 mg tablet RxNorm: 744908 TAKE ONE TABLET BY MOUTH TWICE A DAY 03/12/2018 08/07/2018 Inactive potassium chloride ER 20 mEq tablet,extended release(part/ cryst) RxNorm: 5985449 TAKE ONE TABLET BY MOUTH DAILY WHEN YOU TAKE LASIX (FUROSEMIDE) 03/12/2018 08/01/2018 Inactive spironolactone 25 mg tablet RxNorm: 564193 TAKE ONE TABLET BY MOUTH TWICE A DAY 03/11/2018 06/10/2018 Inactive cyanocobalamin (vit B-12) 1,000 mcg/mL injection solution RxNorm: 772246 1 Milliliter(s) Inj 03/04/2018 03/04/2018 Inactive cyanocobalamin (vit B-12) 1,000 mcg/mL injection solution RxNorm: 143890 1 Milliliter(s) Inj 01/29/2018 01/29/2018 Inactive amlodipine 5 mg tablet RxNorm: 809399 1 Tablet(s) PO QPM 201703/11/2018 Inactive amiodarone 200 mg tablet RxNorm: 528366 1/2 Tablet(s) PO daily 01/29/2018 08/01/2018 Inactive Lexapro 5 mg tablet RxNorm: 507351 1 Tablet(s) PO QPM 201705/29/2018 Inactive warfarin 2 mg tablet RxNorm: 777693 1 Tablet(s) PO daily 4 days per week, 1/2 Tablet PO 3 days per week 01/29/201805/06 Inactive Tenex 1 mg tablet RxNorm: 047924 TAKE ONE TABLET BY MOUTH DAILY 01/21/2018 01/15/2019 Active acyclovir 800 mg tablet RxNorm: 665168 1 Tablet(s) PO TID use if needed for mouth sores 01/01/2018 01/14/2018 Inactive simvastatin 20 mg tablet RxNorm: 780726 TAKE ONE TABLET BY MOUTH EVERY NIGHT AT BEDTIME 12/27/2017 01/28/2018 Inactive acyclovir 800 mg tablet RxNorm: 427808 1 Tablet(s) PO TID 12/2712/31/2017 Inactive metoprolol succinate ER 50 mg tablet,extended release 24 hr RxNorm: 452285 1 Tablet(s) PO daily 12/18/2017 07/15/2018 Inactive cyanocobalamin (vit B-12) 1,000 mcg/mL injection solution RxNorm: 098063 Milliliter(s) Inj 12/18/2017 12/18/2017 Inactive prednisone 20 mg tablet RxNorm: 025952 1 Tablet(s) PO BID 12/1312/17/2017 Inactive spironolactone 25 mg tablet RxNorm: 921917 TAKE ONE TABLET BY MOUTH TWICE A DAY 12/03/2017 03/02/2018 Inactive hydrocodone 5 mg-acetaminophen 325 mg tablet RxNorm: 389946 1-2 Tablet(s) PO Q4 PRN as needed pain 11/20/2017 No Stop Date Active cyanocobalamin (vit B-12) 1,000 mcg/mL injection solution RxNorm: 491928 1 Milliliter(s) Inj 11/20/2017 11/20/2017 Inactive Lomotil 2.5 mg-0.025 mg tablet RxNorm: 4087834 Tablet(s) PO TAKE ONE TABLET BY MOUTH EVERY 8 HOURS NEEDED 11/07/2017 01/04/2018 Inactive Synthroid 50 mcg tablet RxNorm: 363972 TAKE ONE TABLET BY MOUTH EVERY DAY. 10/16/2017 04/13/2018 Inactive potassium chloride ER 20 mEq tablet,extended release(part/ cryst) RxNorm: 2269830 TAKE ONE TABLET BY MOUTH DAILY WHEN YOU TAKE LASIX (FUROSEMIDE) 09/17/2017 03/11/2018 Inactive Lasix 20 mg tablet RxNorm: 335767 Tablet(s) TAKE ONE TABLET BY MOUTH EVERY DAY NEEDED FOR SWELLING. TAKE POTASSIUM WITH EACH DOSE 201701/07/2018 Inactive glipizide 10 mg tablet RxNorm: 368777 TAKE ONE TABLET BY MOUTH TWICE A DAY 08/28/2017 04/02/2018 Inactive Request already responded to by other means (e.g. phone or fax) glipizide 10 mg tablet RxNorm: 175476 Tablet(s) TAKE ONE TABLET BY MOUTH TWICE A DAY 08/23/2017 08/27/2017 Inactive cyanocobalamin (vit B-12) 1,000 mcg/mL injection solution RxNorm: 862798 1 Milliliter(s) Inj 08/21/2017 08/21/2017 Inactive Synthroid 50 mcg tablet RxNorm: 841908 TAKE ONE TABLET BY MOUTH EVERY DAY. 08/15/2017 10/13/2017 Inactive Tricor 145 mg tablet RxNorm: 542565 TAKE ONE TABLET BY MOUTH DAILY 07/31/2017 11/27/2017 Inactive metformin ER 500 mg tablet,extended release 24 hr RxNorm: 329649 TAKE TWO TABLETS BY MOUTH TWICE A DAY 07/31/20172017 Inactive spironolactone 25 mg tablet RxNorm: 142853 TAKE ONE TABLET BY MOUTH TWICE A DAY 07/31/2017 12/02/2017 Inactive Tenex 1 mg tablet RxNorm: 249463 TAKE ONE TABLET BY MOUTH DAILY 07/20/2017 01/15/2018 Inactive cyanocobalamin (vit B-12) 1,000 mcg/mL injection solution RxNorm: 768912 1 Milliliter(s) Inj 07/18/2017 07/18/2017 Inactive Flonase Allergy Relief 50 mcg/actuation nasal spray, suspension RxNorm: 0151047 1 [place] NASAL BID 06/18/20172017 Inactive Byetta 10 mcg/dose(250 mcg/mL)2.4 mL subcutaneous pen injector RxNorm: 039434 INJECT 10 MCG UNDER THE SKIN TWO TIMES A DAY ( START AFTER 5 MCG DOSE IS COMPLETE ) 06/18/2017 04/13/2018 Inactive potassium chloride ER 20 mEq tablet,extended release(part/ cryst) RxNorm: 0999816 TAKE ONE TABLET BY MOUTH DAILY WHEN YOU TAKE LASIX (FUROSEMIDE) 06/18/2017 09/15/2017 Inactive Kenalog 40 mg/mL suspension for injection RxNorm: 0375831 1 Milliliter(s) Inj 06/18/2017 06/18/2017 Inactive cyanocobalamin (vit B-12) 1,000 mcg/mL injection solution RxNorm: 858770 1 Milliliter(s) Inj 06/18/2017 06/18/2017 Inactive Lasix 20 mg tablet RxNorm: 020726 Tablet(s) TAKE ONE TABLET BY MOUTH EVERY DAY NEEDED FOR SWELLING. TAKE POTASSIUM WITH EACH DOSE 201609/09/2017 Inactive cyanocobalamin (vit B-12) 1,000 mcg/mL injection solution RxNorm: 568966 1 Milliliter(s) Inj 05/09/2017 05/09/2017 Inactive cyanocobalamin (vit B-12) 1,000 mcg/mL injection solution RxNorm: 344449 1 Milliliter(s) Inj 04/04/2017 04/04/2017 Inactive metformin ER 500 mg tablet,extended release 24 hr RxNorm: 658804 TAKE TWO TABLETS BY MOUTH TWICE A DAY 03/01/20172016 Inactive Kenalog 40 mg/mL suspension for injection RxNorm: 7780968 1 Milliliter(s) Inj 02/23/2017 02/23/2017 Inactive amlodipine 5 mg tablet RxNorm: 001320 TAKE ONE TABLET BY MOUTH TWICE A DAY 02/22/2017 11/18/2017 Inactive glipizide 10 mg tablet RxNorm: 822822 TAKE ONE TABLET BY MOUTH TWICE A DAY 02/12/2017 08/10/2017 Inactive cyanocobalamin (vit B-12) 1,000 mcg/mL injection solution RxNorm: 738083 Milliliter(s) Inj 01/23/2017 01/23/2017 Inactive Synthroid 50 mcg tablet RxNorm: 177775 TAKE ONE TABLET BY MOUTH EVERY DAY. 12/21/2016 06/18/2017 Inactive potassium chloride ER 20 mEq tablet,extended release(part/ cryst) RxNorm: 6220365 TAKE ONE TABLET BY MOUTH DAILY WHEN YOU TAKE LASIX (FUROSEMIDE) 12/21/2016 04/19/2017 Inactive Tricor 145 mg tablet RxNorm: 128325 TAKE ONE TABLET BY MOUTH DAILY 12/21/2016 06/06/2017 Inactive Lasix 20 mg tablet RxNorm: 848436 TAKE ONE TABLET BY MOUTH EVERY DAY NEEDED FOR SWELLING. TAKE POTASSIUM WITH EACH DOSE 12/11/2016 04/09/2017 Inactive cyanocobalamin (vit B-12) 1,000 mcg/mL injection solution RxNorm: 813844 1 Milliliter(s) Inj 11/14/2016 11/14/2016 Inactive simvastatin 20 mg tablet RxNorm: 634894 TAKE ONE TABLET BY MOUTH EVERY NIGHT AT BEDTIME 10/23/2016 04/15/2017 Inactive Tenex 1 mg tablet RxNorm: 475851 TAKE ONE TABLET BY MOUTH DAILY 10/16/2016 11/14/2016 Inactive glipizide 10 mg tablet RxNorm: 709339 TAKE ONE TABLET BY MOUTH TWICE A DAY 09/20/2016 02/11/2017 Inactive doxycycline hyclate 100 mg capsule RxNorm: 6982041 1 Capsule(s) PO BID 09/12/2016 09/18/2016 Inactive doxycycline hyclate 100 mg capsule RxNorm: 3582694 1 Capsule(s) PO BID 09/12/2016 09/11/2016 Inactive Phenergan with Codeine Syrup RxNorm: 5-10 Milliliter(s) PO Q6 PRN 09/07/2016 No Stop Date Active prednisone 20 mg tablet RxNorm: 796479 1 Tablet(s) PO BID 09/0709/11/2016 Inactive Kenalog 40 mg/mL suspension for injection RxNorm: 1577708 1 Milliliter(s) Inj 09/07/2016 09/07/2016 Inactive Tessalon Perles 100 mg capsule RxNorm: 862514 1 Capsule(s) PO TID PRN 09/01/2016 09/20/2016 Inactive Zyrtec 10 mg capsule RxNorm: 2565380 1 Capsule(s) PO daily 01/28/2018 Inactive Flonase Allergy Relief 50 mcg/actuation nasal spray, suspension RxNorm: 3519916 1 [place] NASAL BID 08/29/20162016 Inactive cyanocobalamin (vit B-12) 1,000 mcg/mL injection solution RxNorm: 388104 1 Milliliter(s) Inj 08/29/2016 08/29/2016 Inactive metformin ER 500 mg tablet,extended release 24 hr RxNorm: 213170 Tablet(s) TAKE TWO TABLETS BY MOUTH TWICE A DAY 08/28/2016 02/23/2017 Inactive Lopressor 100 mg tablet RxNorm: 161645 TAKE ONE TABLET BY MOUTH DAILY 06/27/2016 04/15/2017 Inactive cetirizine 10 mg tablet RxNorm: 5129475 1 Tablet(s) PO daily 07/11/2016 Inactive Flonase Allergy Relief 50 mcg/actuation nasal spray, suspension RxNorm: 0850288 1 [place] NASAL BID 06/12/20162016 Inactive cyanocobalamin (vit B-12) 1,000 mcg/mL injection solution RxNorm: 494408 Milliliter(s) Inj 06/12/2016 06/12/2016 Inactive spironolactone 25 mg tablet RxNorm: 609251 TAKE ONE TABLET BY MOUTH TWICE A DAY 06/06/2016 03/02/2017 Inactive Request already responded to by other means (e.g. phone or fax) spironolactone 25 mg tablet RxNorm: 447386 Tablet(s) TAKE ONE TABLET BY MOUTH TWICE A DAY 05/29/2016 06/05/2016 Inactive ceftriaxone 500 mg solution for injection RxNorm: 9673916 2 Milliliter(s) Inj 05/04/2016 05/04/2016 Inactive cyanocobalamin (vit B-12) 1,000 mcg/mL injection solution RxNorm: 336879 Milliliter(s) Inj 05/04/2016 05/04/2016 Inactive Cipro 500 mg tablet RxNorm: 270217 1 Tablet(s) PO BID 201505/10/2016 Inactive OneTouch Ultra Test strips RxNorm: TEST DAILY 04/24/2016 04/18/2017 Inactive Byetta 10 mcg/dose(250 mcg/mL)2.4 mL subcutaneous pen injector RxNorm: 840481 INJECT 10 MCG UNDER THE SKIN TWO TIMES A DAY ( START AFTER 5 MCG DOSE IS COMPLETE ) 04/18/2016 03/13/2017 Inactive Lasix 20 mg tablet RxNorm: 113414 TAKE ONE TABLET BY MOUTH EVERY DAY NEEDED FOR SWELLING. TAKE POTASSIUM WITH EACH DOSE 04/07/2016 09/03/2016 Inactive potassium chloride ER 20 mEq tablet,extended release(part/ cryst) RxNorm: 8052787 TAKE ONE TABLET BY MOUTH DAILY WHEN YOU TAKE LASIX (FUROSEMIDE) 04/07/2016 09/03/2016 Inactive triamcinolone acetonide 0.5 % topical cream RxNorm: 4163826 1 Application TOP BID to lesions on buttock 03/30/20162015 Inactive metformin ER 500 mg tablet,extended release 24 hr RxNorm: 761232 TAKE TWO TABLETS BY MOUTH TWICE A DAY 03/23/20162016 Inactive cyanocobalamin (vit B-12) 1,000 mcg/mL injection solution RxNorm: 153319 Milliliter(s) Inj 03/17/2016 03/17/2016 Inactive glipizide 10 mg tablet RxNorm: 746807 TAKE ONE TABLET BY MOUTH TWICE A DAY 03/17/2016 04/02/2018 Inactive Request already responded to by other means (e.g. phone or fax) glipizide 10 mg tablet RxNorm: 140081 Tablet(s) TAKE ONE TABLET BY MOUTH TWICE A DAY 03/13/2016 03/16/2016 Inactive Tricor 145 mg tablet RxNorm: 118676 TAKE ONE TABLET BY MOUTH ONCE A DAY 02/18/2016 02/11/2017 Inactive Request already responded to by other means (e.g. phone or fax) amlodipine 5 mg tablet RxNorm: 051765 TAKE ONE TABLET BY MOUTH TWICE A DAY 02/18/2016 05/06/2018 Inactive Request already responded to by other means (e.g. phone or fax) cyanocobalamin (vit B-12) 1,000 mcg/mL injection solution RxNorm: 077208 1 Milliliter(s) Inj 02/15/2016 02/15/2016 Inactive amlodipine 5 mg tablet RxNorm: 617450 Tablet(s) TAKE ONE TABLET BY MOUTH TWICE A DAY 02/14/2016 02/17/2016 Inactive Tricor 145 mg tablet RxNorm: 143497 1 Tablet(s) PO daily TAKE ONE TABLET BY MOUTH ONCE A DAY 02/14/2016 02/17/2016 Inactive Synthroid 50 mcg tablet RxNorm: 624072 TAKE ONE TABLET BY MOUTH EVERY DAY. 01/31/2016 08/27/2016 Inactive hydrocodone 5 mg-acetaminophen 325 mg tablet RxNorm: 432728 1-2 Tablet(s) PO Q4 PRN as needed pain 01/28/2016 11/19/2017 Inactive cyanocobalamin (vit B-12) 1,000 mcg/mL injection solution RxNorm: 795704 Milliliter(s) Inj 01/19/2016 01/19/2016 Inactive metformin ER 500 mg tablet,extended release 24 hr RxNorm: 864966 TAKE TWO TABLETS BY MOUTH TWICE A DAY 01/18/20162015 Inactive cyanocobalamin (vit B-12) 1,000 mcg/mL injection solution RxNorm: 286948 1 Milliliter(s) Inj 12/07/2015 12/07/2015 Inactive metformin ER 500 mg tablet,extended release 24 hr RxNorm: 049214 TAKE TWO TABLETS BY MOUTH TWICE A DAY 10/18/20152015 Inactive simvastatin 20 mg tablet RxNorm: 596204 1 Tablet(s) PO QHS TAKE ONE TABLET BY MOUTH AT BEDTIME 10/08/2015 10/01/2016 Inactive Tenex 1 mg tablet RxNorm: 814825 TAKE ONE TABLET BY MOUTH DAILY 10/04/2015 09/27/2016 Inactive Lopressor 100 mg tablet RxNorm: 001662 TAKE ONE TABLET BY MOUTH DAILY 09/20/2015 06/15/2016 Inactive Diflucan 150 mg tablet RxNorm: 584514 1 Tablet(s) PO daily 02/201609/12/2015 Inactive cyanocobalamin (vit B-12) 1,000 mcg/mL injection kit RxNorm: 161727 kit Inj 09/06/2015 09/06/2015 Inactive gentamicin 0.3 % eye drops RxNorm: 682895 2 Drop(s) OPH QID 02/201609/12/2015 Inactive ceftriaxone 500 mg solution for injection RxNorm: 4184664 Inj 09/06/2015 09/06/2015 Inactive Keflex 500 mg capsule RxNorm: 861952 1 Capsule(s) PO TID 201509/12/2015 Inactive hydrocodone 5 mg-acetaminophen 325 mg tablet RxNorm: 410144 1-2 Tablet(s) PO Q4 PRN as needed pain 08/09/2015 01/27/2016 Inactive Lortab 5 mg-500 mg tablet RxNorm: 539070 1-2 Tablet(s) PO Q4 PRN as needed pain 08/03/2015 08/08/2015 Inactive Diflucan 150 mg tablet RxNorm: 772185 1 Tablet(s) PO daily 07/16/2015 Inactive Lasix 20 mg tablet RxNorm: 003686 TAKE ONE TABLET BY MOUTH EVERY DAY NEEDED FOR SWELLING. TAKE POTASSIUM WITH EACH DOSE 07/13/2015 01/08/2016 Inactive spironolactone 25 mg tablet RxNorm: 958917 TAKE ONE TABLET BY MOUTH TWICE A DAY 07/13/2015 05/07/2016 Inactive potassium chloride ER 20 mEq tablet,extended release(part/ cryst) RxNorm: 821341 TAKE ONE TABLET BY MOUTH DAILY WHEN YOU TAKE LASIX (FUROSEMIDE) 07/13/2015 01/08/2016 Inactive Tessalon Perles 100 mg capsule RxNorm: 252265 1 Capsule(s) PO TID PRN 07/05/2015 08/31/2016 Inactive Keflex 500 mg capsule RxNorm: 888127 1 Capsule(s) PO TID 201407/14/2015 Inactive Kenalog 40 mg/mL suspension for injection RxNorm: 8157190 Milliliter(s) Inj 07/05/2015 07/05/2015 Inactive ceftriaxone 500 mg solution for injection RxNorm: 7510328 Inj 07/05/2015 07/05/2015 Inactive cyanocobalamin (vit B-12) 1,000 mcg/mL injection solution RxNorm: 868803 Milliliter(s) Inj 06/28/2015 06/28/2015 Inactive Synthroid 50 mcg tablet RxNorm: 676407 TAKE ONE TABLET BY MOUTH EVERY DAY. 06/21/2015 11/17/2015 Inactive metformin ER 500 mg tablet,extended release 24 hr RxNorm: 336697 TAKE TWO TABLETS BY MOUTH TWICE A DAY 06/14/20152015 Inactive glipizide 10 mg tablet RxNorm: 986904 TAKE ONE TABLET BY MOUTH TWICE A DAY 05/31/2015 02/24/2016 Inactive cyanocobalamin (vit B-12) 1,000 mcg/mL injection solution RxNorm: 144258 Milliliter(s) Inj 05/13/2015 05/13/2015 Inactive Tricor 145 mg tablet RxNorm: 370225 1 Tablet(s) PO daily TAKE ONE TABLET BY MOUTH ONCE A DAY 05/07/2015 05/06/2015 Inactive Tricor 145 mg tablet RxNorm: 859812 1 Tablet(s) PO daily TAKE ONE TABLET BY MOUTH ONCE A DAY 05/07/2015 01/31/2016 Inactive Tricor 145 mg tablet RxNorm: 674933 TAKE ONE TABLET BY MOUTH ONCE A DAY 05/06/2015 05/06/2015 Inactive Byetta 10 mcg/dose(250 mcg/mL)2.4 mL subcutaneous pen injector RxNorm: 904176 Microgram(s) SQ 10mcg twice daily ( start after 5mcg dose is complete) 04/01/2015 03/25/2016 Inactive Byetta 5 mcg/dose (250 mcg/mL)1.2 mL subcutaneous pen injector RxNorm: 014710 Microgram(s) SQ 5mcg twice daily x 1 month 03/04/2015 04/02/2015 Inactive Byetta 10 mcg/dose(250 mcg/mL)2.4 mL subcutaneous pen injector RxNorm: 609341 Microgram(s) SQ 10mcg twice daily ( start after 5mcg dose is complete) 03/04/2015 03/31/2015 Inactive Byetta 5 mcg/dose (250 mcg/mL)1.2 mL subcutaneous pen injector RxNorm: 892832 Microgram(s) SQ 5mcg twice daily x 1 month 03/04/2015 03/03/2015 Inactive Byetta 10 mcg/dose(250 mcg/mL)2.4 mL subcutaneous pen injector RxNorm: 615581 Microgram(s) SQ 10mcg twice daily ( start after 5mcg dose is complete) 03/04/2015 03/03/2015 Inactive cyanocobalamin (vit B-12) 1,000 mcg/mL injection solution RxNorm: 183389 Milliliter(s) Inj 02/23/2015 02/23/2015 Inactive cyanocobalamin (vit B-12) 1,000 mcg/mL injection solution RxNorm: 635791 Milliliter(s) Inj 01/08/2015 01/08/2015 Inactive simvastatin 20 mg tablet RxNorm: 485402 TAKE ONE TABLET BY MOUTH AT BEDTIME 01/07/2015 10/03/2015 Inactive Lortab 5 mg-500 mg tablet RxNorm: 894083 1-2 Tablet(s) PO Q4 PRN as needed q 4- 6hrs prn pain 12/15/2014 08/02/2015 Inactive Lortab 5 mg-500 mg tablet RxNorm: 790263 1-2 Tablet(s) PO Q4 PRN as needed q 4- 6hrs prn pain 12/15/2014 08/02/2015 Inactive amlodipine 5 mg tablet RxNorm: 870438 TAKE ONE TABLET BY MOUTH TWICE A DAY 12/14/2014 12/13/2014 Inactive amlodipine 5 mg tablet RxNorm: 095569 TAKE ONE TABLET BY MOUTH TWICE A DAY 12/14/2014 03/13/2015 Inactive cyanocobalamin (vit B-12) 1,000 mcg/mL injection solution RxNorm: 332504 Milliliter(s) Inj 12/08/2014 12/08/2014 Inactive Synthroid 50 mcg tablet RxNorm: 851221 TAKE ONE TABLET BY MOUTH EVERY DAY. 10/29/2014 04/26/2015 Inactive Lasix 20 mg tablet RxNorm: 298205 Tablet(s) TAKE ONE TABLET BY MOUTH EVERY DAY NEEDED FOR SWELLING. TAKE POTASSIUM WITH EACH DOSE 201405/25/2015 Inactive potassium chloride ER 20 mEq tablet,extended release(part/ cryst) RxNorm: 076560 Tablet(s) TAKE ONE TABLET BY MOUTH EVERY DAY WHEN YOU TAKE LASIX (FUROSEMIDE) 10/28/2014 05/25/2015 Inactive cyanocobalamin (vit B-12) 1,000 mcg/mL injection solution RxNorm: 086645 Milliliter(s) Inj 10/26/2014 10/26/2014 Inactive OneTouch Ultra Test strips RxNorm: TEST TWO TIMES A DAY 201405/10/2028 Active OneTouch Ultra Test strips RxNorm: 1 Miscellaneous BID 201410/21/2014 Inactive dx: 250.02 Victoza 2-J Luis 0.6 mg/0.1 mL (18 mg/3 mL) subcutaneous pen injector RxNorm: 983302 1.8 Milligram(s) SQ daily 09/24/201402/22 Inactive cyanocobalamin (vit B-12) 1,000 mcg/mL injection solution RxNorm: 153897 Milliliter(s) Inj 09/24/2014 09/24/2014 Inactive Tenex 1 mg tablet RxNorm: 348239 1 Tablet(s) PO daily TAKE ONE TABLET BY MOUTH EVERY DAY 09/24/2014 10/03/2015 Inactive Lopressor 100 mg tablet RxNorm: 251549 TAKE ONE TABLET BY MOUTH EVERY DAY 09/14/2014 06/10/2015 Inactive Lopressor 100 mg tablet RxNorm: 469804 1 Tablet(s) PO daily TAKE ONE TABLET BY MOUTH EVERY DAY 09/14/2014 09/13/2014 Inactive cyanocobalamin (vit B-12) 1,000 mcg/mL injection solution RxNorm: 175519 Milliliter(s) Inj 08/24/2014 08/24/2014 Inactive [SAVINGS FOR UNINSURED PATIENTS - - BIN:[id number], PCN: [id number], Group: [id number], ID# [id number], Process claim through Chairish, for questions: . THIS IS NOT INSURANCE.] Victoza 2-J Luis 0.6 mg/0.1 mL (18 mg/3 mL) subcutaneous pen injector RxNorm: 017728 1.2 Milligram(s) SQ daily 08/05/201409/23 Inactive glipizide 10 mg tablet RxNorm: 715246 TAKE ONE TABLET BY MOUTH TWICE A DAY 07/28/2014 05/23/2015 Inactive Tenex 1 mg tablet RxNorm: 812663 TAKE ONE TABLET BY MOUTH EVERY DAY 07/02/2014 07/01/2014 Inactive Tenex 1 mg tablet RxNorm: 783721 TAKE ONE TABLET BY MOUTH EVERY DAY 07/02/2014 09/23/2014 Inactive spironolactone 25 mg tablet RxNorm: 384822 TAKE ONE TABLET BY MOUTH TWICE A DAY 07/02/2014 04/27/2015 Inactive spironolactone 25 mg tablet RxNorm: 653657 Tablet(s) PO TAKE ONE TABLET BY MOUTH TWICE A DAY 06/30/2014 07/01/2014 Inactive Tenex 1 mg tablet RxNorm: 403220 Tablet(s) PO TAKE ONE TABLET BY MOUTH EVERY DAY 06/30/2014 07/01/2014 Inactive Lortab 5 mg-500 mg tablet RxNorm: 288420 1-2 Tablet(s) PO Q4 PRN as needed q 4- 6hrs prn pain 06/22/2014 12/14/2014 Inactive metformin ER 500 mg tablet,extended release 24 hr RxNorm: 009934 Tablet(s) PO TAKE TWO TABLETS BY MOUTH TWICE A DAY 06/05/2014 06/13/2015 Inactive [SAVINGS FOR UNINSURED PATIENTS -- BIN:[id number], PCN: [id number], Group: [id number], ID# [id number], Process claim through Chairish, for questions: . THIS IS NOT INSURANCE.] cyanocobalamin (vit B-12) 1,000 mcg/mL injection solution RxNorm: 939885 1 Milliliter(s) Inj monthly 06/01/201406/01 Inactive Kenalog 40 mg/mL suspension for injection RxNorm: 3470182 1 Milliliter(s) Inj 05/11/2014 05/11/2014 Inactive cyanocobalamin (vit B-12) 1,000 mcg/mL injection kit RxNorm: 206546 Milliliter(s) Inj 04/27/2014 04/27/2014 Inactive amlodipine 5 mg tablet RxNorm: 040999 TAKE ONE TABLET BY MOUTH TWICE A DAY 04/02/2014 07/30/2014 Inactive cyanocobalamin (vit B-12) 1,000 mcg/mL injection kit RxNorm: 820383 1 Milliliter(s ) Inj 03/24/2014 03/24/2014 Inactive [SAVINGS FOR UNINSURED PATIENTS -- BIN:[id number] , PCN: [id number], Group: [id number], ID# [id number], Process claim through Chairish, for questions: . THIS IS NOT INSURANCE.] cyanocobalamin (vit B-12) 1,000 mcg/mL injection solution RxNorm: 732279 1 Milliliter(s) Inj 03/24/2014 03/24/2014 Inactive Synthroid 50 mcg tablet RxNorm: 944557 TAKE ONE TABLET BY MOUTH EVERY DAY. 03/01/2014 09/26/2014 Inactive Lasix 20 mg tablet RxNorm: 420858 TAKE ONE TABLET BY MOUTH EVERY DAY NEEDED FOR SWELLING. TAKE POTASSIUM WITH EACH DOSE 03/01/2014 09/26/2014 Inactive potassium chloride ER 20 mEq tablet,extended release(part/ cryst) RxNorm: 087107 TAKE ONE TABLET BY MOUTH EVERY DAY WHEN YOU TAKE LASIX (FUROSEMIDE) 03/01/2014 09/26/2014 Inactive cyanocobalamin (vit B-12) 1,000 mcg/mL injection solution RxNorm: 199222 1 Milliliter(s) Inj 02/24/2014 02/24/2014 Inactive Tricor 145 mg tablet RxNorm: 208427 TAKE ONE TABLET BY MOUTH EVERY DAY 02/16/2014 02/15/2014 Inactive Victoza 2-J Luis 0.6 mg/0.1 mL (18 mg/3 mL) subcutaneous pen injector RxNorm: 312096 1.2 Milligram(s) SQ daily 02/16/201408/04 Inactive Tricor 145 mg tablet RxNorm: 876182 TAKE ONE TABLET BY MOUTH EVERY DAY 02/16/2014 06/15/2014 Inactive Synthroid 50 mcg tablet RxNorm: 439997 TAKE ONE TABLET BY MOUTH EVERY DAY. 02/02/2014 03/03/2014 Inactive Synthroid 50 mcg tablet RxNorm: 715038 TAKE ONE TABLET BY MOUTH EVERY DAY. 02/02/2014 02/01/2014 Inactive simvastatin 20 mg tablet RxNorm: 048758 TAKE ONE TABLET BY MOUTH AT BEDTIME 01/12/2014 01/06/2015 Inactive cyanocobalamin (vit B-12) 1,000 mcg/mL injection solution RxNorm: 833464 Milliliter(s) Inj 01/09/2014 01/09/2014 Inactive Lortab 5 mg-500 mg tablet RxNorm: 252742 1-2 Tablet(s) PO Q4 PRN q 4-6hrs prn pain 12/23/2013 No Stop Date Active Lasix 20 mg tablet RxNorm: 746339 Tablet(s) PO TAKE ONE TABLET BY MOUTH EVERY DAY NEEDED FOR SWELLING. TAKE POTASSIUM WITH EACH DOSE 12/201302/28/2014 Inactive potassium chloride ER 20 mEq tablet,extended release(part/ cryst) RxNorm: 559432 Tablet(s) PO TAKE ONE TABLET BY MOUTH EVERY DAY WHEN YOU TAKE LASIX (FUROSEMIDE ) 12/02/2013 02/28/2014 Inactive Lomotil 2.5 mg-0.025 mg tablet RxNorm: 6183758 Tablet(s) PO TAKE ONE TABLET BY MOUTH EVERY 8 HOURS NEEDED 11/27/2013 01/28/2018 Inactive (Appended: Controlled substance eRx refill - RxReferenceNumber: [id number]) Lomotil 2.5 mg-0.025 mg tablet RxNorm: 7041980 1 Tablet(s) PO Q8 PRN 11/27/2013 05/24/2014 Inactive cyanocobalamin (vit B-12) 1,000 mcg/mL injection solution RxNorm: 859909 1 Milliliter(s) Inj 11/27/2013 11/27/2013 Inactive Vitamin B-12 1,000 mcg/mL injection solution RxNorm: 218000 1 Milliliter(s) Inj monthly 11/24/2013 11/18/2014 Inactive ok to give multidose if available Synthroid 50 mcg tablet RxNorm: 268034 Tablet(s) PO TAKE ONE TABLET BY MOUTH EVERY DAY. 10/31/2013 02/01/2014 Inactive simvastatin 20 mg tablet RxNorm: 501691 Tablet(s) PO TAKE ONE TABLET BY MOUTH AT BEDTIME 10/10/2013 01/11/2014 Inactive Vitamin B-12 1,000 mcg/mL injection solution RxNorm: 310087 1 Milliliter(s) Inj monthly 09/30/2013 09/29/2013 Inactive ok to give multidose if available Vitamin B-12 1,000 mcg/mL injection solution RxNorm: 804320 1 Milliliter(s) Inj monthly 09/30/2013 11/23/2013 Inactive ok to give multidose if available Vitamin B-12 1,000 mcg/mL injection solution RxNorm: 429662 1 Milliliter(s) Inj 09/18/2013 09/18/2013 Inactive Lopressor 100 mg tablet RxNorm: 065987 Tablet(s) PO TAKE ONE TABLET BY MOUTH EVERY DAY 09/15/2013 09/13/2014 Inactive Vitamin B-12 1,000 mcg/mL injection solution RxNorm: 037327 1 Milliliter(s) Inj 08/22/2013 08/22/2013 Inactive glipizide 10 mg tablet RxNorm: 046416 Tablet(s) PO TAKE ONE TABLET BY MOUTH TWICE A DAY 08/15/2013 07/27/2014 Inactive Tenex 1 mg tablet RxNorm: 758198 Tablet(s) PO TAKE ONE TABLET BY MOUTH EVERY DAY 08/05/2013 06/29/2014 Inactive potassium chloride ER 20 mEq tablet,extended release(part/ cryst) RxNorm: 008124 Tablet(s) PO TAKE ONE TABLET BY MOUTH EVERY DAY WHEN YOU TAKE LASIX (FUROSEMIDE ) 07/31/2013 12/01/2013 Inactive spironolactone 25 mg tablet RxNorm: 030981 Tablet(s) PO TAKE ONE TABLET BY MOUTH TWICE A DAY 07/31/2013 06/29/2014 Inactive Lasix 20 mg tablet RxNorm: 891976 Tablet(s) PO TAKE ONE TABLET BY MOUTH EVERY DAY NEEDED FOR SWELLING. TAKE POTASSIUM WITH EACH DOSE 08/201312/01/2013 Inactive Vitamin B-12 1,000 mcg/mL injection solution RxNorm: 886017 Milliliter(s) Inj 07/28/2013 07/28/2013 Inactive Synthroid 50 mcg tablet RxNorm: 757438 Tablet(s) PO TAKE ONE TABLET BY MOUTH EVERY DAY. PATIENT DUE FOR TSH LEVEL LAB 06/30/2013 06/29/2013 Inactive Synthroid 50 mcg tablet RxNorm: 518003 Tablet(s) PO TAKE ONE TABLET BY MOUTH EVERY DAY. PATIENT DUE FOR TSH LEVEL LAB 06/30/2013 10/30/2013 Inactive potassium chloride ER 20 mEq tablet,extended release(part/ cryst) RxNorm: 707739 Tablet(s) PO TAKE ONE TABLET BY MOUTH EVERY DAY WHEN YOU TAKE LASIX (FUROSEMIDE ) 06/23/2013 07/30/2013 Inactive Lasix 20 mg tablet RxNorm: 155219 Tablet(s) PO TAKE ONE TABLET BY MOUTH EVERY DAY NEEDED FOR SWELLING. TAKE POTASSIUM WITH EACH DOSE 07/30/2013 Inactive amlodipine 5 mg tablet RxNorm: 373786 Tablet(s) PO TAKE ONE TABLET BY MOUTH TWICE A DAY 06/17/2013 04/01/2014 Inactive metformin ER 500 mg tablet,extended release 24 hr RxNorm: 873053 Tablet(s) PO TAKE TWO TABLETS BY MOUTH TWICE A DAY 05/26/2013 06/04/2014 Inactive metformin ER 500 mg tablet,extended release 24 hr RxNorm: 438622 Tablet(s) PO TAKE TWO TABLETS BY MOUTH TWICE A DAY 05/26/2013 05/25/2013 Inactive Vitamin B-12 1,000 mcg/mL injection solution RxNorm: 878028 1 Milliliter(s) Inj 05/21/2013 05/21/2013 Inactive Vitamin B-12 1,000 mcg/mL Injection RxNorm: 572708 Milliliter(s) Inj 04/23/2013 04/23/2013 Inactive Influenza Virus Vaccine 0.5 mL RxNorm: IM 04/23/2013 04/23/2013 Inactive Synthroid 50 mcg tablet RxNorm: 076891 Tablet(s) PO TAKE ONE TABLET BY MOUTH EVERY DAY. PATIENT DUE FOR TSH LEVEL LAB 04/17/2013 06/29/2013 Inactive Lasix 20 mg tablet RxNorm: 183011 Tablet(s) PO TAKE ONE TABLET BY MOUTH EVERY DAY NEEDED FOR SWELLING. TAKE POTASSIUM WITH EACH DOSE 06/22/2013 Inactive potassium chloride ER 20 mEq tablet,extended release(part/ cryst) RxNorm: 6906907 Tablet(s) PO TAKE ONE TABLET BY MOUTH EVERY DAY WHEN YOU TAKE LASIX (FUROSEMIDE ) 04/17/2013 06/22/2013 Inactive simvastatin 20 mg tablet RxNorm: 161498 Tablet(s) PO TAKE ONE TABLET BY MOUTH AT BEDTIME 04/10/2013 10/09/2013 Inactive Vitamin B-12 1,000 mcg/mL Injection RxNorm: 807412 1 Milliliter(s) Inj 03/24/2013 03/24/2013 Inactive Lopressor 100 mg tablet RxNorm: 573699 Tablet(s) PO TAKE ONE TABLET BY MOUTH EVERY DAY 03/18/2013 09/14/2013 Inactive cyanocobalamin (vitamin B-12) 1,000 mcg/mL Injection RxNorm: 571739 Milliliter(s) Inj 02/20/2013 02/20/2013 Inactive Tricor 145 mg tablet RxNorm: 356377 Tablet(s) PO TAKE ONE TABLET BY MOUTH EVERY DAY 02/14/2013 02/15/2014 Inactive Vitamin B-12 1,000 mcg/mL Injection RxNorm: 018405 1 Milliliter(s) Inj 01/22/2013 01/22/2013 Inactive potassium chloride ER 20 mEq tablet,extended release(part/ cryst) RxNorm: 3006544 1 Tablet(s) PO QDAY PRN take when taking prn lasix 201204/16/2013 Inactive Lasix 20 mg tablet RxNorm: 559263 1 Tablet(s) PO QDAY PRN daily prn swelling - to take kcl with lasix 01/22/20132012 Inactive cyanocobalamin (vitamin B-12) 1,000 mcg/mL Injection RxNorm: 022587 Milliliter(s) Inj 12/19/2012 12/19/2012 Inactive cyanocobalamin (vitamin B-12) 1,000 mcg/mL Injection RxNorm: 198661 Milliliter(s) Inj 11/20/2012 11/20/2012 Inactive Diflucan 150 mg tablet RxNorm: 663058 1 Tablet(s) PO daily 11/21/2012 Inactive Synthroid 50 mcg tablet RxNorm: 688847 Tablet(s) PO TAKE ONE TABLET BY MOUTH EVERY DAY. PATIENT DUE FOR TSH LEVEL LAB 11/18/2012 04/16/2013 Inactive Keflex 500 mg capsule RxNorm: 918468 1 Capsule(s) PO TID 201211/19/2012 Inactive Keflex 500 mg capsule RxNorm: 792567 1 Capsule(s) PO TID 201211/12/2012 Inactive Byetta 10 mcg/0.04 mL per dose Sub-Q Pen Injector RxNorm: 570722 Pen Injector SQ DIAL AND INJECT SUBCUTANEOUSLY 10 MCG TWICE DAILY WITHIN 60 MINUTES BEFORE MORNING AND EVENING MEALS. DO NOT ADMINISTER AFTER A MEAL. 04/03/2014 Inactive cyanocobalamin (vitamin B-12) 1,000 mcg/mL Injection RxNorm: 801446 1 Milliliter(s ) Inj 10/23/2012 10/23/2012 Inactive Lortab 5 mg-500 mg tablet RxNorm: 242796 1-2 Tablet(s) PO Q4 PRN q 4-6hrs prn pain 10/02/2012 12/22/2013 Inactive cyanocobalamin (vitamin B-12) 1,000 mcg/mL Injection RxNorm: 513121 Milliliter(s) Inj 09/16/2012 09/16/2012 Inactive Vitamin B-12 1,000 mcg/mL Injection RxNorm: 102893 1 Milliliter(s) Inj 08/15/2012 08/15/2012 Inactive glipizide 10 mg tablet RxNorm: 520895 Tablet(s) PO TAKE ONE TABLET BY MOUTH TWICE A DAY 08/12/2012 08/14/2013 Inactive Tenex 1 mg tablet RxNorm: 342308 Tablet(s) PO TAKE ONE TABLET BY MOUTH EVERY DAY 08/12/2012 08/04/2013 Inactive Kenalog 40 mg/mL Susp for Injection RxNorm: 4543234 1 Milliliter(s) Inj 08/06/2012 01/22/2013 Inactive spironolactone 25 mg tablet RxNorm: 011366 Tablet(s) PO TAKE ONE TABLET BY MOUTH TWICE A DAY 07/29/2012 07/30/2013 Inactive cefdinir 300 mg capsule RxNorm: 389795 1 Capsule(s) PO BID 08/01/2012 Inactive cefdinir 300 mg capsule RxNorm: 175034 1 Capsule(s) PO BID 07/25/2012 Inactive Vitamin B-12 1,000 mcg/mL Injection RxNorm: 991247 1 Milliliter(s) Inj 07/19/2012 07/19/2012 Inactive simvastatin 20 mg tablet RxNorm: 026973 Tablet(s) PO TAKE ONE TABLET BY MOUTH AT BEDTIME 07/08/2012 04/09/2013 Inactive simvastatin 20 mg tablet RxNorm: 791519 Tablet(s) PO TAKE ONE TABLET BY MOUTH AT BEDTIME 07/08/2012 10/07/2015 Inactive Synthroid 50 mcg tablet RxNorm: 198673 1 Tablet(s) PO daily 12/201110/31/2012 Inactive Please advise patient due for TSH level. amlodipine 5 mg tablet RxNorm: 023217 1 Tablet(s) PO BID 201112/15/2012 Inactive amlodipine 5 mg tablet RxNorm: 724430 1 Tablet(s) PO BID 201106/18/2012 Inactive Vitamin B-12 1,000 mcg/mL Injection RxNorm: 863292 Milliliter(s) Inj 06/19/2012 06/19/2012 Inactive Lopressor 100 mg tablet RxNorm: 183965 Tablet(s) PO 06/17/2012 03/17/2013 Inactive TAKE ONE TABLET BY MOUTH EVERY DAY Vitamin B-12 1,000 mcg/mL Injection RxNorm: 133859 Milliliter(s) Inj 05/22/2012 05/22/2012 Inactive Synthroid 50 mcg tablet RxNorm: 993515 1 Tablet(s) PO daily 06/11/2012 Inactive Please advise patient due for TSH level. Diflucan 150 mg tablet RxNorm: 914705 1 Tablet(s) PO daily 11/18/2012 Inactive metformin ER 500 mg tablet,extended release 24 hr RxNorm: 820961 2 Tablet(s) PO BID 04/25/2012 05/19/2013 Inactive Vitamin B-12 1,000 mcg/mL Injection RxNorm: 628000 Milliliter(s) Inj 04/22/2012 04/22/2012 Inactive Vitamin B-12 1,000 mcg/mL Injection RxNorm: 363401 Milliliter(s) Inj 03/19/2012 03/19/2012 Inactive Vitamin B-12 1,000 mcg/mL Injection RxNorm: 702340 Milliliter(s) Inj 02/15/2012 02/15/2012 Inactive Tricor 145 mg tablet RxNorm: 136414 1 Tablet(s) PO daily 201102/13/2013 Inactive Vitamin B-12 1,000 mcg/mL Injection RxNorm: 448881 Milliliter(s) Inj 01/18/2012 01/18/2012 Inactive Kenalog 40 mg/mL Susp for Injection RxNorm: 2121077 1 Milliliter(s) Inj 12/28/2011 12/28/2011 Inactive Vitamin B-12 1,000 mcg/mL Injection RxNorm: 172058 Milliliter(s) Inj 12/20/2011 12/20/2011 Inactive omeprazole 20 mg Cap, delayed release RxNorm: 167284 1 Capsule(s) PO daily 12/07/2011 11/30/2012 Inactive may take bid if nec cyanocobalamin (vitamin B-12) 1,000 mcg/mL Injection RxNorm: 378161 1 Milliliter(s ) Inj 11/07/2011 11/07/2011 Inactive cyanocobalamin (vitamin B-12) 1,000 mcg/mL Injection RxNorm: 928482 1 Milliliter(s ) Inj 10/03/2011 10/03/2011 Inactive Synthroid 50 mcg tablet RxNorm: 933562 1 Tablet(s) PO daily 03/08/2012 Inactive Byetta 10 mcg/0.04 mL per dose Sub-Q Pen Injector RxNorm: 930092 10 Microgram(s) SQ BID 08/29/2011 09/21/2012 Inactive metformin ER 500 mg tablet,extended release 24 hr RxNorm: 203294 2 Tablet(s) PO BID 08/15/2011 02/10/2012 Inactive cyanocobalamin (vitamin B-12) 1,000 mcg/mL Injection RxNorm: 045371 1 Milliliter(s ) Inj 07/28/2011 07/28/2011 Inactive NovoFine 30 Needle RxNorm: 1 Miscellaneous BID 07/28/2011 03/18/2013 Inactive OneTouch Ultra Test strips RxNorm: 1 Miscellaneous BID 201003/18/2013 Inactive guanfacine 1 mg Tab RxNorm: 070195 1 Tablet(s) PO daily 201007/10/2012 Inactive glipizide 10 mg tablet RxNorm: 266894 1 Tablet(s) PO BID 201008/09/2012 Inactive Tenex 1 mg tablet RxNorm: 490037 1 Tablet(s) PO daily 201008/09/2012 Inactive lisinopril 20 mg tablet RxNorm: 203380 1 Tablet(s) PO daily pt 07/04/2011 04/21/2012 Inactive pt may have #90 with year if insurance pays spironolactone 25 mg tablet RxNorm: 729694 1 Tablet(s) PO BID 07/03/2011 07/26/2012 Inactive simvastatin 20 mg Tab RxNorm: 684655 1 Tablet(s) PO QHS 201006/28/2011 Inactive cyanocobalamin (vitamin B-12) 1,000 mcg/mL Injection RxNorm: 850813 Milliliter(s) Inj 06/29/2011 06/29/2011 Inactive simvastatin 20 mg tablet RxNorm: 865869 1 Tablet(s) PO QHS 07/201006/22/2012 Inactive Lopressor 100 mg tablet RxNorm: 611448 1 Tablet(s) PO daily 06/16/2012 Inactive ketorolac 60 mg/2 mL IM RxNorm: 691450 Milliliter(s) IM 201005/23/2011 Inactive cyanocobalamin (vitamin B-12) 1,000 mcg/mL Injection RxNorm: 831741 Milliliter(s) Inj 05/23/2011 05/23/2011 Inactive Influenza Virus Vaccine 0.5 mL RxNorm: IM 04/26/2011 04/26/2011 Inactive Vitamin B-12 1,000 mcg/mL Injection RxNorm: 861399 Milliliter(s) Inj 04/26/2011 04/26/2011 Inactive Lomotil 2.5 mg-0.025 mg tablet RxNorm: 6350393 1 Tablet(s) PO Q8 PRN 04/26/2011 11/27/2013 Inactive hydralazine 10 mg tablet RxNorm: 224656 1 Tablet(s) PO TID No Start Date Active Toujeo Max U-300 SoloStar 300 unit/mL (3 mL) subcutaneous insulin pen RxNorm: 2606421 10 Unit(s) SQ QHS increase by 4 units every 3 days until BS under 150 No Start Date Active multivitamin tablet RxNorm: 1 Tablet(s) PO daily No Start Date Active clopidogrel 75 mg tablet RxNorm: 465390 1 Tablet(s) PO daily No Start Date Active simvastatin 20 mg tablet RxNorm: 950449 1 Tablet(s) PO daily No Start Date Active Tricor 145 mg Tab RxNorm: 165399 1 Tablet(s) PO daily No Start Date 02/07/2012 Inactive amiodarone 200 mg tablet RxNorm: 168123 1 Tablet(s) PO daily No Start Date 01/28/2018 Inactive Synthroid 50 mcg Tab RxNorm: 733174 1 Tablet(s) PO daily No Start Date 09/10/2011 Inactive atorvastatin 10 mg tablet RxNorm: 829517 1 Tablet(s) PO QHS No Start Date 08/07/2018 Inactive lisinopril 20 mg tablet RxNorm: 534436 1 Tablet(s) PO daily No Start Date 06/18/2012 Inactive Lortab 5 mg-500 mg tablet RxNorm: 771697 1 Tablet(s) PO Q4 PRN q 4hrs prn pain No Start Date 10/01/2012 Inactive Tenex 1 mg Tab RxNorm : 094345 1 Tablet(s) PO daily No Start Date 07/16/2011 Inactive lisinopril 40 mg tablet RxNorm: 399209 Tablet(s) PO No Start Date 05/21/2012 Inactive Voltaren 1 % Topical Gel RxNorm: 974863 TOP as directed No Start Date 11/29/2015 Inactive iron 325 mg (65 mg iron) Tab RxNorm: 010073 1 Tablet(s) PO daily No Start Date 02/22/2015 Inactive Zithromax Z-J Luis 250 mg tablet RxNorm: 813618 Tablet(s) PO UD No Start Date 01/22/2013 Inactive Byetta 10 mcg/0.04 mL per dose Sub-Q Pen Injector RxNorm: 955067 Milliliter(s) SQ BID No Start Date 08/28/2011 Inactive Mouth Sore oral RxNorm : 1399 mucous membrane No Start Date 01/28/2018 Inactive cyanocobalamin (vitamin B-12) 1,000 mcg/mL Injection RxNorm: 696041 1 Milliliter(s ) Inj month No Start Date 11/30/2015 Inactive Tessalon 200 mg capsule RxNorm: 940325 1 Capsule(s) PO TID PRN No Start Date 01/21/2013 Inactive metoprolol succinate ER 100 mg tablet,extended release 24 hr RxNorm: 347472 1 Tablet(s) PO daily No Start Date 2017 Inactive Victoza 2-J Luis 0.6 mg/0.1 mL (18 mg/3 mL) subcutaneous pen injector RxNorm: 011906 1.2 Milligram(s) SQ daily No Start Date Inactive simvastatin 20 mg Tab RxNorm: 538815 1 Tablet(s) PO QHS No Start Date 06/28/2011 Inactive spironolactone 25 mg Tab RxNorm: 496628 1 Tablet(s) PO BID No Start Date 07/02/2011 Inactive Diflucan 150 mg tablet RxNorm: 519580 1 Tablet(s) PO daily No Start Date 04/24/2012 Inactive guanfacine 1 mg Tab RxNorm: 481913 1 Tablet(s) PO daily No Start Date 07/16/2011 Inactive Ativan 1 mg Tab RxNorm : 769101 1/2-1 Tablet(s) PO Q6 PRN 1/2 - 1 tab q 6 hours if needed for anxiety No Start Date 2013 Inactive metformin ER 500 mg 24 hr Tab RxNorm: 290892 2 Tablet(s) PO BID No Start Date 08/14/2011 Inactive warfarin 2 mg tablet RxNorm: 005966 1 Tablet(s) PO daily No Start Date 01/28/2018 Inactive Lopressor 100 mg Tab RxNorm: 292230 1 Tablet(s) PO daily No Start Date 06/26/2011 Inactive glipizide 10 mg Tab RxNorm: 086894 1 Tablet(s) PO BID No Start Date 07/16/2011 Inactive KCL 10 meq RxNorm: PO as directed daily when taking lasix No Start Date 01/22/2013 Inactive lisinopril 20 mg Tab RxNorm: 673880 1 Tablet(s) PO daily No Start Date 07/03/2011 Inactive One Touch Ultra Test Strips RxNorm: 1 Miscellaneous BID No Start Date 07/27/2011 Inactive aspirin 81 mg Tab, Delayed Release RxNorm: 684171 1 Tablet(s) PO daily No Start Date 01/28/2018 Inactive omeprazole 20 mg Cap, delayed release RxNorm: 036065 1 Capsule(s) PO BID No Start Date 12/06/2011 Inactive Lasix 20 mg tablet RxNorm: 806354 Tablet(s) PO as directed daily prn swelling - to take kcl with lasix No Start Date 01/21 Inactive Vitamin D 1,000 unit Tab RxNorm: 992782 1 Tablet(s) PO daily No Start Date 01/28/2018 Inactive niacin 500 mg Tab RxNorm: 358073 1 Tablet(s) PO QHS No Start Date 04/03/2014 Inactive Medication Administered Medication Codes Instructions Start Date Status Kenalog 40 mg/mL suspension for injection RxNorm: 4893990 1Milliliter 05/29/2018 No longer Active cyanocobalamin (vit B-12) 1,000 mcg/mL injection solution RxNorm: 036652 1Milliliter 05/07/2018 No longer Active cyanocobalamin (vit B-12) 1,000 mcg/mL injection solution RxNorm: 819126 Milliliter 04/04/2018 No longer Active cyanocobalamin (vit B-12) 1,000 mcg/mL injection solution RxNorm: 212030 1Milliliter 03/04/2018 No longer Active cyanocobalamin (vit B-12) 1,000 mcg/mL injection solution RxNorm: 628904 1Milliliter 01/29/2018 No longer Active cyanocobalamin (vit B-12) 1,000 mcg/mL injection solution RxNorm: 483229 Milliliter 12/18/2017 No longer Active cyanocobalamin (vit B-12) 1,000 mcg/mL injection solution RxNorm: 816754 1Milliliter 11/20/2017 No longer Active cyanocobalamin (vit B-12) 1,000 mcg/mL injection solution RxNorm: 993874 1Milliliter 08/21/2017 No longer Active cyanocobalamin (vit B-12) 1,000 mcg/mL injection solution RxNorm: 967889 1Milliliter 07/18/2017 No longer Active cyanocobalamin (vit B-12) 1,000 mcg/mL injection solution RxNorm: 440807 1Milliliter 06/18/2017 No longer Active Kenalog 40 mg/mL suspension for injection RxNorm: 6022365 1Milliliter 06/18/2017 No longer Active cyanocobalamin (vit B-12) 1,000 mcg/mL injection solution RxNorm: 031685 1Milliliter 05/09/2017 No longer Active cyanocobalamin (vit B-12) 1,000 mcg/mL injection solution RxNorm: 182538 1Milliliter 04/04/2017 No longer Active Kenalog 40 mg/mL suspension for injection RxNorm: 3895891 1Milliliter 02/23/2017 No longer Active cyanocobalamin (vit B-12) 1,000 mcg/mL injection solution RxNorm: 891128 Milliliter 01/23/2017 No longer Active cyanocobalamin (vit B-12) 1,000 mcg/mL injection solution RxNorm: 900485 1Milliliter 11/14/2016 No longer Active Kenalog 40 mg/mL suspension for injection RxNorm: 4398861 1Milliliter 09/07/2016 No longer Active cyanocobalamin (vit B-12) 1,000 mcg/mL injection solution RxNorm: 208668 1Milliliter 08/29/2016 No longer Active cyanocobalamin (vit B-12) 1,000 mcg/mL injection solution RxNorm: 736293 Milliliter 06/12/2016 No longer Active ceftriaxone 500 mg solution for injection RxNorm: 3573345 2Milliliter 05/04/2016 No longer Active cyanocobalamin (vit B-12) 1,000 mcg/mL injection solution RxNorm: 810427 Milliliter 05/04/2016 No longer Active cyanocobalamin (vit B-12) 1,000 mcg/mL injection solution RxNorm: 819712 Milliliter 03/17/2016 No longer Active cyanocobalamin (vit B-12) 1,000 mcg/mL injection solution RxNorm: 893941 1Milliliter 02/15/2016 No longer Active cyanocobalamin (vit B-12) 1,000 mcg/mL injection solution RxNorm: 561462 Milliliter 01/19/2016 No longer Active cyanocobalamin (vit B-12) 1,000 mcg/mL injection solution RxNorm: 903688 1Milliliter 12/07/2015 No longer Active cyanocobalamin (vit B-12) 1,000 mcg/mL injection kit RxNorm : 026846 kit 09/06/2015 No longer Active ceftriaxone 500 mg solution for injection RxNorm: 7590880 09/06/2015 No longer Active ceftriaxone 500 mg solution for injection RxNorm: 2461867 07/05/2015 No longer Active Kenalog 40 mg/mL suspension for injection RxNorm: 3750792 Milliliter 07/05/2015 No longer Active cyanocobalamin (vit B-12) 1,000 mcg/mL injection solution RxNorm: 207426 Milliliter 06/28/2015 No longer Active cyanocobalamin (vit B-12) 1,000 mcg/mL injection solution RxNorm: 221336 Milliliter 05/13/2015 No longer Active cyanocobalamin (vit B-12) 1,000 mcg/mL injection solution RxNorm: 142064 Milliliter 02/23/2015 No longer Active cyanocobalamin (vit B-12) 1,000 mcg/mL injection solution RxNorm: 759693 Milliliter 01/08/2015 No longer Active cyanocobalamin (vit B-12) 1,000 mcg/mL injection solution RxNorm: 123508 Milliliter 12/08/2014 No longer Active cyanocobalamin (vit B-12) 1,000 mcg/mL injection solution RxNorm: 209131 Milliliter 10/26/2014 No longer Active cyanocobalamin (vit B-12) 1,000 mcg/mL injection solution RxNorm: 537259 Milliliter 09/24/2014 No longer Active cyanocobalamin (vit B-12) 1,000 mcg/mL injection solution RxNorm: 343324 Milliliter 08/24/2014 No longer Active cyanocobalamin (vit B-12) 1,000 mcg/mL injection solution RxNorm: 724184 1Milliliter 06/01/2014 No longer Active Kenalog 40 mg/mL suspension for injection RxNorm: 8366514 1Milliliter 05/11/2014 No longer Active cyanocobalamin (vit B-12) 1,000 mcg/mL injection kit RxNorm : 578862 Milliliter 04/27/2014 No longer Active cyanocobalamin (vit B-12) 1,000 mcg/mL injection kit RxNorm : 514149 1Milliliter 03/24/2014 No longer Active cyanocobalamin (vit B-12) 1,000 mcg/mL injection solution RxNorm: 443452 1Milliliter 03/24/2014 No longer Active cyanocobalamin (vit B-12) 1,000 mcg/mL injection solution RxNorm: 893129 1Milliliter 02/24/2014 No longer Active cyanocobalamin (vit B-12) 1,000 mcg/mL injection solution RxNorm: 917477 Milliliter 01/09/2014 No longer Active cyanocobalamin (vit B-12) 1,000 mcg/mL injection solution RxNorm: 619010 1Milliliter 11/27/2013 No longer Active Vitamin B-12 1,000 mcg/mL injection solution RxNorm: 679772 1Milliliter 09/18/2013 No longer Active Vitamin B-12 1,000 mcg/mL injection solution RxNorm: 494212 1Milliliter 08/22/2013 No longer Active Vitamin B-12 1,000 mcg/mL injection solution RxNorm: 500855 Milliliter 07/28/2013 No longer Active Vitamin B-12 1,000 mcg/mL injection solution RxNorm: 921400 1Milliliter 05/21/2013 No longer Active Influenza Virus Vaccine 0.5 mL RxNorm: 04/23/2013 No longer Active Vitamin B-12 1,000 mcg/mL Injection RxNorm: 311987 Milliliter 04/23/2013 No longer Active Vitamin B-12 1,000 mcg/mL Injection RxNorm: 756859 1Milliliter 03/24/2013 No longer Active cyanocobalamin (vitamin B-12) 1,000 mcg/mL Injection RxNorm : 438671 Milliliter 02/20/2013 No longer Active Vitamin B-12 1,000 mcg/mL Injection RxNorm: 230292 1Milliliter 01/22/2013 No longer Active cyanocobalamin (vitamin B-12) 1,000 mcg/mL Injection RxNorm : 846014 Milliliter 12/19/2012 No longer Active cyanocobalamin (vitamin B-12) 1,000 mcg/mL Injection RxNorm : 156775 Milliliter 11/20/2012 No longer Active cyanocobalamin (vitamin B-12) 1,000 mcg/mL Injection RxNorm : 889184 1Milliliter 10/23/2012 No longer Active cyanocobalamin (vitamin B-12) 1,000 mcg/mL Injection RxNorm : 090613 Milliliter 09/16/2012 No longer Active Vitamin B-12 1,000 mcg/mL Injection RxNorm: 133280 1Milliliter 08/15/2012 No longer Active Vitamin B-12 1,000 mcg/mL Injection RxNorm: 212565 1Milliliter 07/19/2012 No longer Active Vitamin B-12 1,000 mcg/mL Injection RxNorm: 197423 Milliliter 06/19/2012 No longer Active Vitamin B-12 1,000 mcg/mL Injection RxNorm: 252633 Milliliter 05/22/2012 No longer Active Vitamin B-12 1,000 mcg/mL Injection RxNorm: 008919 Milliliter 04/22/2012 No longer Active Vitamin B-12 1,000 mcg/mL Injection RxNorm: 006822 Milliliter 03/19/2012 No longer Active Vitamin B-12 1,000 mcg/mL Injection RxNorm: 120547 Milliliter 02/15/2012 No longer Active Vitamin B-12 1,000 mcg/mL Injection RxNorm: 134910 Milliliter 01/18/2012 No longer Active Kenalog 40 mg/mL Susp for Injection RxNorm: 6421611 1Milliliter 12/28/2011 No longer Active Vitamin B-12 1,000 mcg/mL Injection RxNorm: 760899 Milliliter 12/20/2011 No longer Active cyanocobalamin (vitamin B-12) 1,000 mcg/mL Injection RxNorm : 434786 1Milliliter 11/07/2011 No longer Active cyanocobalamin (vitamin B-12) 1,000 mcg/mL Injection RxNorm : 759116 1Milliliter 10/03/2011 No longer Active cyanocobalamin (vitamin B-12) 1,000 mcg/mL Injection RxNorm : 781419 1Milliliter 07/28/2011 No longer Active cyanocobalamin (vitamin B-12) 1,000 mcg/mL Injection RxNorm : 049810 Milliliter 06/29/2011 No longer Active cyanocobalamin (vitamin B-12) 1,000 mcg/mL Injection RxNorm : 123857 Milliliter 05/23/2011 No longer Active ketorolac 60 mg/2 mL IM RxNorm: 230174 Milliliter 05/23/2011 No longer Active Influenza Virus Vaccine 0.5 mL RxNorm: 04/26/2011 No longer Active Vitamin B-12 1,000 mcg/mL Injection RxNorm: 897365 Milliliter 04/26/2011 No longer Active Immunizations Vaccine [...] mellitus with hyperglycemia ICD-10: E11.65 ICD-9: 250.02 08/08/2018 Chronic kidney disease, stage 3 (moderate) ICD-10: [...] 28.4 pg 06/07/2017 Cbc With Differential Ord2 Piute% 12.6 % 06/07/2017 Cbc With Differential Ord2 [...] 1.23 K/ul 06/07/2017 Cbc With Differential Ord2 Piute ABS# 0.7 K/ul 06/07/2017 Cbc With Differential Ord2 Eos ABS# 0.2 K/ul 06/07/2017 Cbc With Differential Ord2 Baso ABS# 0.0 K/ul 06/07/2017 Culture Urine [id number] URINE CULTURE SEE NOTES 05/08/2016 Culture Urine [id number] Continued Results 05/08/2016 Urine Culture Ucult Complete >100,000 col/ml aerobic growth sent to ref lab 05/05/2016 IRON TEST [id number] IRON TEST 44 UG/DL 07/28/2013 TSH [id number] TSH 2.104 uIU/ML 07/28/2013 CBC [id number] WBC 6.2 10e9/L 07/28/2013 CBC 4111000 RBC 3.95 10e12/L 07/28/2013 CBC [id number] HGB 11.2 g/dL 07/28/2013 CBC [id number] HCT DET 34.2 % 07/28/2013 CBC [id number] MCV 86.6 fL 07/28/2013 CBC [id number] MCH 28.4 pg 07/28/2013 CBC [id number] MCHC 32.7 g/dL 07/28/2013 CBC [id number] PLT 231 10e9/L 07/28/2013 CBC [id number] MPV 10.9 fL 07/28/2013 CBC [id number] JAZMYN % 61.0 % 07/28/2013 CBC [id number] LY % 27.8 % 07/28/2013 CBC [id number] MON % 8.0 % 07/28/2013 CBC 1024106 EOS % 2.4 % 07/28/2013 CBC [id number] BASO % 0.8 % 07/28/2013 CBC [id number] RDW 14.0 % 07/28/2013 CBC [id number] ABS JAZMYN 3.78 10e9/L 07/28/2013 CBC [id number] ABS LYMPH 1.72 10e9/L 07/28/2013 CBC [id number] ABS MONO 0.50 10e9/L 07/28/2013 CBC [id number] ABS EOS 0.15 10e9/L 07/28/2013 CBC [id number] ABS BASO 0.05 10e9/L 07/28/2013 CBC [id number] RDW-SD 42.9 fL 07/28/2013 %SAT/TIBC 4933149 TIBC 439 UG/DL 07/28/2013 %SAT/TIBC 0348222 % SATURAT 10 % 07/28/2013 %SAT/TIBC 4826001 UIBC 395 MCG/DL 07/28/2013 Review of Systems [...] Effective Dates Notes Full Exam - General 1995 Constitutional general appearance Overall: well developed 08/08/2018 [...] 1994 Ears/Nose/Throat oral cavity/pharynx/larynx Overall: no masses 08/05/2018 [...] Procedure Codes Date GLUCOSE MONITORING CONT CPT-4: 13139 08/08/2018 THER/PROPH/DIAG INJ SC/IM CPT-4: 12487 08/05/2018 VITAMIN B12 INJECTION CPT-4: J3420 08/05/2018 DRAIN/INJECT JOINT/BURSA CPT-4: 46148 05/29/2018 TRIAMCINOLONE ACET INJ NOS CPT-4: J3301 05/29/2018 THER/PROPH/DIAG INJ SC/IM CPT-4: 08659 05/07/2018 VITAMIN B12 INJECTION CPT-4: J3420 05/07/2018 FLU VAC NO PRSV 4 JINNY 3 YRS+ CPT-4: 38308 04/04/2018 ADMIN INFLUENZA VIRUS VAC CPT-4: G0008 04/04/2018 THER/PROPH/DIAG INJ SC/IM CPT-4: 83459 04/04/2018 VITAMIN B12 INJECTION CPT-4: J3420 04/04/2018 THER/PROPH/DIAG INJ SC/IM CPT-4: 19773 03/04/2018 VITAMIN B12 INJECTION CPT-4: J3420 03/04/2018 PPPS, SUBSEQ VISIT CPT -4: G0439 01/29/2018 ADMIN PNEUMOCOCCAL VACCINE SNOMED CT: 41005045 CPT-4: G0009 01/29/2018 PNEUMOCOCCAL VACC [address]: 24072769 CPT-4: 74199 01/29/2018 THER/PROPH/DIAG INJ SC/IM CPT-4: 80960 01/29/2018 VITAMIN B12 INJECTION CPT-4: J3420 01/29/2018 PRESCRIP TRANSMIT VIA ERX SY CPT-4: G8553 01/01/2018 PRESCRIP TRANSMIT VIA ERX SY CPT-4: G8553 12/27/2017 THER/PROPH/DIAG INJ SC/IM CPT-4: 38658 12/18/2017 VITAMIN B12 INJECTION CPT-4: J3420 12/18/2017 PRESCRIP TRANSMIT VIA ERX SY CPT-4: G8553 12/18/2017 THER/PROPH/DIAG INJ SC/IM CPT-4: 77789 11/20/2017 VITAMIN B12 INJECTION CPT-4: J3420 11/20/2017 THER/PROPH/DIAG INJ SC/IM CPT-4: 31875 08/21/2017 VITAMIN B12 INJECTION CPT-4: J3420 08/21/2017 THER/PROPH/DIAG INJ SC/IM CPT-4: 89501 07/18/2017 VITAMIN B12 INJECTION CPT-4: J3420 07/18/2017 TRIAMCINOLONE ACET INJ NOS CPT-4: J3301 06/18/2017 THER/PROPH/DIAG INJ SC/IM CPT-4: 71233 06/18/2017 VITAMIN B12 INJECTION CPT-4: J3420 06/18/2017 PRESCRIP TRANSMIT VIA ERX SY CPT-4: G8553 06/18/2017 THER/PROPH/DIAG INJ SC/IM CPT-4: 30369 05/09/2017 VITAMIN B12 INJECTION CPT-4: J3420 05/09/2017 ADMIN INFLUENZA VIRUS VAC CPT-4: G0008 04/25/2017 FLU VAC NO PRSV 4 JINNY 3 YRS+ CPT-4: 91118 04/25/2017 THER/PROPH/DIAG INJ SC/IM CPT-4: 18230 04/04/2017 VITAMIN B12 INJECTION CPT-4: J3420 04/04/2017 TRIAMCINOLONE ACET INJ NOS CPT-4: J3301 02/23/2017 VITAMIN B12 INJECTION CPT-4: J3420 02/23/2017 THER/PROPH/DIAG INJ SC/IM CPT-4: 39031 01/23/2017 VITAMIN B12 INJECTION CPT-4: J3420 01/23/2017 VITAMIN B12 INJECTION CPT-4: J3420 12/26/2016 THER/PROPH/DIAG INJ SC/IM CPT-4: 26202 12/26/2016 THER/PROPH/DIAG INJ SC/IM CPT-4: 35316 11/14/2016 VITAMIN B12 INJECTION CPT-4: J3420 11/14/2016 THER/PROPH/DIAG INJ SC/IM CPT-4: 33750 09/07/2016 TRIAMCINOLONE ACET INJ NOS CPT-4: J3301 09/07/2016 PRESCRIP TRANSMIT VIA ERX SY CPT-4: G8553 09/07/2016 THER/PROPH/DIAG INJ SC/IM CPT-4: 00812 08/29/2016 VITAMIN B12 INJECTION CPT-4: J3420 08/29/2016 PRESCRIP TRANSMIT VIA ERX SY CPT-4: G8553 08/29/2016 THER/PROPH/DIAG INJ SC/IM CPT-4: 34716 06/12/2016 VITAMIN B12 INJECTION CPT-4: J3420 06/12/2016 PRESCRIP TRANSMIT VIA ERX SY CPT-4: G8553 06/12/2016 URINALYSIS NONAUTO W/O SCOPE CPT-4: 01210 05/04/2016 ROCEPHIN, PER 250 MG CPT-4: J0696 05/04/2016 THER/PROPH/DIAG INJ SC/IM CPT-4: 75680 05/04/2016 VITAMIN B12 INJECTION CPT-4: J3420 05/04/2016 PRESCRIP TRANSMIT VIA ERX SY CPT-4: G8553 05/04/2016 PRESCRIP TRANSMIT VIA ERX SY CPT-4: G8553 03/30/2016 THER/PROPH/DIAG INJ SC/IM CPT-4: 73979 03/17/2016 VITAMIN B12 INJECTION CPT-4: J3420 03/17/2016 THER/PROPH/DIAG INJ SC/IM CPT-4: 30000 02/15/2016 VITAMIN B12 INJECTION CPT-4: J3420 02/15/2016 THER/PROPH/DIAG INJ SC/IM CPT-4: 18015 01/19/2016 VITAMIN B12 INJECTION CPT-4: J3420 01/19/2016 THER/PROPH/DIAG INJ SC/IM CPT-4: 67132 12/07/2015 VITAMIN B12 INJECTION CPT-4: J3420 12/07/2015 ROCEPHIN, PER 250 MG CPT-4: J0696 09/06/2015 THER/PROPH/DIAG INJ SC/IM CPT-4: 03076 09/06/2015 VITAMIN B12 INJECTION CPT-4: J3420 09/06/2015 PRESCRIP TRANSMIT VIA ERX SY CPT-4: G8553 09/06/2015 ROCEPHIN, PER 250 MG CPT-4: J0696 07/05/2015 TRIAMCINOLONE ACET INJ NOS CPT-4: J3301 07/05/2015 PRESCRIP TRANSMIT VIA ERX SY CPT-4: G8553 07/05/2015 THER/PROPH/DIAG INJ SC/IM CPT-4: 03382 06/28/2015 VITAMIN B12 INJECTION CPT-4: J3420 06/28/2015 THER/PROPH/DIAG INJ SC/IM CPT-4: 64385 05/13/2015 VITAMIN B12 INJECTION CPT-4: J3420 05/13/2015 THER/PROPH/DIAG INJ SC/IM CPT-4: 89075 02/23/2015 VITAMIN B12 INJECTION CPT-4: J3420 02/23/2015 THER/PROPH/DIAG INJ SC/IM CPT-4: 15898 01/08/2015 VITAMIN B12 INJECTION CPT-4: J3420 01/08/2015 THER/PROPH/DIAG INJ SC/IM CPT-4: 33714 12/08/2014 VITAMIN B12 INJECTION CPT-4: J3420 12/08/2014 THER/PROPH/DIAG INJ SC/IM CPT-4: 57102 10/26/2014 VITAMIN B12 INJECTION CPT-4: J3420 10/26/2014 VITAMIN B12 INJECTION CPT-4: J3420 09/24/2014 THER/PROPH/DIAG INJ SC/IM CPT-4: 05692 09/24/2014 THER/PROPH/DIAG INJ SC/IM CPT-4: 71312 08/24/2014 VITAMIN B12 INJECTION CPT-4: J3420 08/24/2014 THER/PROPH/DIAG INJ SC/IM CPT-4: 17638 07/08/2014 VITAMIN B12 INJECTION CPT-4: J3420 07/08/2014 THER/PROPH/DIAG INJ SC/IM CPT-4: 41470 06/01/2014 VITAMIN B12 INJECTION CPT-4: J3420 06/01/2014 TRIAMCINOLONE ACET INJ NOS CPT-4: J3301 05/11/2014 VITAMIN B12 INJECTION CPT-4: J3420 04/27/2014 THER/PROPH/DIAG INJ SC/IM CPT-4: 28990 04/27/2014 FLU VAC NO PRSV 4 JINNY 3 YRS+ CPT-4: 35931 04/03/2014 ADMIN INFLUENZA VIRUS VAC Assigned to/Juliana Graham CPT-4: [id number] 04/03/2014 THER/PROPH/DIAG INJ SC/IM CPT-4: 64082 03/24/2014 THER/PROPH/DIAG INJ SC/IM CPT-4: 32558 02/24/2014 THER/PROPH/DIAG INJ SC/IM CPT-4: 18973 01/09/2014 THER/PROPH/DIAG INJ SC/IM CPT-4: 40188 11/27/2013 THER/PROPH/DIAG INJ SC/IM CPT-4: 88571 09/18/2013 VITAMIN B12 INJECTION CPT-4: J3420 09/18/2013 THER/PROPH/DIAG INJ SC/IM CPT-4: 49116 08/22/2013 VITAMIN B12 INJECTION CPT-4: J3420 08/22/2013 ROUTINE VENIPUNCTURE CPT-4: 86380 07/28/2013 VITAMIN B12 INJECTION CPT-4: J3420 07/28/2013 THER/PROPH/DIAG INJ SC/IM CPT-4: 40597 07/28/2013 THER/PROPH/DIAG INJ SC/IM CPT-4: 62518 06/16/2013 VITAMIN B12 INJECTION CPT-4: J3420 06/16/2013 THER/PROPH/DIAG INJ SC/IM CPT-4: 17566 05/21/2013 VITAMIN B12 INJECTION CPT-4: J3420 05/21/2013 ADMIN INFLUENZA VIRUS VAC CPT-4: G0008 04/23/2013 FLULAVAL VACC, 3 YRS & >, IM CPT-4: Q2036 04/23/2013 VITAMIN B12 INJECTION CPT-4: J3420 04/23/2013 THER/PROPH/DIAG INJ SC/IM CPT-4: 33347 04/23/2013 THER/PROPH/DIAG INJ SC/IM CPT-4: 61901 03/24/2013 VITAMIN B12 INJECTION CPT-4: J3420 03/24/2013 THER/PROPH/DIAG INJ SC/IM CPT-4: 92977 02/20/2013 VITAMIN B12 INJECTION CPT-4: J3420 02/20/2013 VITAMIN B12 INJECTION CPT-4: J3420 01/22/2013 PRESCRIP TRANSMIT VIA ERX SY CPT-4: G8553 01/22/2013 TRIAMCINOLONE ACET INJ NOS CPT-4: J3301 12/19/2012 VITAMIN B12 INJECTION CPT-4: J3420 12/19/2012 THER/PROPH/DIAG INJ SC/IM CPT-4: 67722 11/20/2012 VITAMIN B12 INJECTION CPT-4: J3420 11/20/2012 THER/PROPH/DIAG INJ SC/IM CPT-4: 20311 10/23/2012 VITAMIN B12 INJECTION CPT-4: J3420 10/23/2012 THER/PROPH/DIAG INJ SC/IM CPT-4: 12707 09/16/2012 VITAMIN B12 INJECTION CPT-4: J3420 09/16/2012 VITAMIN B12 INJECTION CPT-4: J3420 08/15/2012 THER/PROPH/DIAG INJ SC/IM CPT-4: 89247 08/15/2012 TRIAMCINOLONE ACET INJ NOS CPT-4: J3301 08/06/2012 THER/PROPH/DIAG INJ SC/IM CPT-4: 22187 08/06/2012 PRESCRIP TRANSMIT VIA ERX SY CPT-4: G8553 08/06/2012 VITAMIN B12 INJECTION CPT-4: J3420 07/19/2012 THER/PROPH/DIAG INJ SC/IM CPT-4: 91009 07/19/2012 DRAIN/INJECT JOINT/BURSA CPT-4: 92632 07/10/2012 THER/PROPH/DIAG INJ SC/IM CPT-4: 77205 06/19/2012 VITAMIN B12 INJECTION CPT-4: J3420 06/19/2012 VITAMIN B12 INJECTION CPT-4: J3420 05/22/2012 THER/PROPH/DIAG INJ SC/IM CPT-4: 33024 05/22/2012 ADMIN INFLUENZA VIRUS VAC CPT-4: G0008 04/22/2012 FLULAVAL VACC, 3 YRS & >, IM CPT-4: Q2036 04/22/2012 VITAMIN B12 INJECTION CPT-4: J3420 04/22/2012 VITAMIN B12 INJECTION CPT-4: J3420 03/19/2012 THER/PROPH/DIAG INJ SC/IM CPT-4: 68398 03/19/2012 VITAMIN B12 INJECTION CPT-4: J3420 02/15/2012 THER/PROPH/DIAG INJ SC/IM CPT-4: 13418 02/15/2012 THER/PROPH/DIAG INJ SC/IM CPT-4: 58672 01/18/2012 VITAMIN B12 INJECTION CPT-4: J3420 01/18/2012 TRIAMCINOLONE ACET INJ NOS CPT-4: J3301 12/28/2011 DRAIN/INJECT JOINT/BURSA CPT-4: 94584 12/28/2011 VITAMIN B12 INJECTION CPT-4: J3420 12/20/2011 THER/PROPH/DIAG INJ SC/IM CPT-4: 08289 12/20/2011 VITAMIN B12 INJECTION CPT-4: J3420 11/07/2011 THER/PROPH/DIAG INJ SC/IM CPT-4: 06203 11/07/2011 VITAMIN B12 INJECTION CPT-4: J3420 10/03/2011 THER/PROPH/DIAG INJ SC/IM CPT-4: 02365 10/03/2011 TRIAMCINOLONE ACET INJ NOS CPT-4: J3301 08/23/2011 DRAIN/INJECT JOINT/BURSA CPT-4: 39218 08/23/2011 THER/PROPH/DIAG INJ SC/IM CPT-4: 15385 08/23/2011 VITAMIN B12 INJECTION CPT-4: J3420 08/23/2011 VITAMIN B12 INJECTION CPT-4: J3420 07/28/2011 THER/PROPH/DIAG INJ SC/IM CPT-4: 81617 07/28/2011 VITAMIN B12 INJECTION CPT-4: J3420 06/29/2011 THER/PROPH/DIAG INJ SC/IM CPT-4: 25585 06/29/2011 KETOROLAC TROMETHAMINE INJ CPT-4: J1885 05/23/2011 VITAMIN B12 INJECTION CPT-4: J3420 05/23/2011 THER/PROPH/DIAG INJ SC/IM CPT-4: 42752 05/23/2011 ADMIN INFLUENZA VIRUS VAC CPT-4: G0008 04/26/2011 FLULAVAL VACC, 3 YRS & >, IM CPT-4: Q2036 04/26/2011 VITAMIN B12 INJECTION CPT-4: J3420 04/26/2011 THER/PROPH/DIAG INJ SC/IM CPT-4: 33454 04/26/2011 Vital Signs Date Vital 08/08/2018 Blood Pressure 1: 158/78 Code : 8480-6 Heart Rate 1: 53 bpm Height: 5'6" SpO2: 96% Weight: 08/05/2018 Blood Pressure 1: 150/78 Code : 8480-6 BMI: 36.0 Code : 39695-3 Heart Rate 1 : 51 bpm Height: 5'6" SpO2: 92% Weight: 223 lbs 05/29/2018 Blood Pressure 1: 120/64 Code : 8480-6 BMI: 35.5 Code : 24469-0 Heart Rate 1 : 58 bpm Height: 5'6" SpO2: 96% Weight: 220 lbs 05/07/2018 Blood Pressure 1: 130/60 Code : 8480-6 BMI: 35.5 Code : 77243-4 Heart Rate 1 : 60 bpm Height: 5'6" SpO2: 97% Weight: 220 lbs 01/29/2018 Blood Pressure 1: 150/80 Code : 8480-6 BMI: 35.5 Code : 09563-8 Heart Rate 1 : 68 bpm Height: 5'6" SpO2: 97% Waist Measure (cm): 109 cm Weight: 220 lbs 01/01/2018 Blood Pressure 1: 136/68 Code : 8480-6 BMI: 35.2 Code : 08957-3 Heart Rate 1 : 60 bpm Height: 5'6" Respiratory Rate: 16 bpm SpO2: 98% Weight: 218 lbs 12/27/2017 Height: Weight: 12/18/2017 Blood Pressure 1: 118/62 Code : 8480-6 BMI: 36.2 Code : 17685-0 Heart Rate 1 : 45 bpm Height: 5'6" SpO2: 98% Weight: 224 lbs 12/13/2017 Blood Pressure 1: 138/88 Code : 8480-6 Heart Rate 1: 92 bpm Height: SpO2: 98% Weight: 06/18/2017 Blood Pressure 1: 134/68 Code : 8480-6 BMI: 35.8 Code : 26255-7 Heart Rate 1 : 50 bpm Height: 5'6" SpO2: 98% Weight: 222 lbs 06/07/2017 Blood Pressure 1: 146/68 Code : 8480-6 BMI: 35.3 Code : 14352-9 Heart Rate 1 : 63 bpm Height: 5'6" SpO2: 99% Weight: 218 lbs 8 oz 04/16/2017 Blood Pressure 1: 130/62 Code : 8480-6 BMI: 34.7 Code : 11644-7 Heart Rate 1 : 51 bpm Height: 5'6" SpO2: 94% Weight: 215 lbs 02/23/2017 Blood Pressure 1: 136/64 Code : 8480-6 BMI: 35.0 Code : 36365-2 Heart Rate 1 : 54 bpm Height: 5'6" SpO2: 96% Weight: 217 lbs 12/26/2016 Blood Pressure 1: 144/74 Code : 8480-6 BMI: 34.5 Code : 89991-8 Heart Rate 1 : 60 bpm Height: 5'6" SpO2: 97% Weight: 214 lbs 09/07/2016 Blood Pressure 1: 138/62 Code : 8480-6 Heart Rate 1: 86 bpm SpO2: 96% Temperature: 36.8 (C) / 98.2 (F) Weight: 207 lbs 08/29/2016 Blood Pressure 1: 132/58 Code : 8480-6 BMI: 33.9 Code : 59798-8 Heart Rate 1 : 55 bpm Height: 5'6" SpO2: 98% Weight: 210 lbs 06/12/2016 Blood Pressure 1: 128/76 Code : 8480-6 BMI: 33.2 Code : 37802-2 Heart Rate 1 : 57 bpm Height: 5'6" SpO2: 97% Weight: 206 lbs 05/04/2016 Blood Pressure 1: 130/72 Code : 8480-6 BMI: 33.9 Code : 56007-1 Heart Rate 1 : 74 bpm Height: 5'6" SpO2: 96% Temperature: 36.9 (C) / 98.5 (F) Weight: 210 lbs 03/30/2016 Blood Pressure 1: 116/66 Code : 8480-6 BMI: 34.3 Code : 58792-8 Heart Rate 1 : 67 bpm Height: 5'6" SpO2: 98% Weight: 212 lbs 8 oz 11/30/2015 Blood Pressure 1: 138/64 Code : 8480-6 BMI: 35.2 Code : 25637-9 Heart Rate 1 : 59 bpm Height: 5'6" SpO2: 98% Weight: 218 lbs 09/06/2015 Blood Pressure 1: 138/668 Code: 8480-6 BMI: 35.3 Code: 47721-3 Heart Rate 1: 68 bpm Height: 5'6" Weight: 219 lbs 08/04/2015 Blood Pressure 1: 140/82 Code : 8480-6 Heart Rate 1: 62 bpm SpO2: 98% Weight: 220 lbs 07/05/2015 Blood Pressure 1: 122/80 Code : 8480-6 BMI: 36.0 Code : 61898-5 Heart Rate 1 : 63 bpm Height: 5'6" SpO2: 97% Temperature: 36.3 (C) / 97.3 (F) Weight: 223 lbs 06/28/2015 Blood Pressure 1: 150/74 Code : 8480-6 BMI: 36.3 Code : 46619-2 Heart Rate 1 : 65 bpm Height: 5'6" SpO2: 96% Weight: 225 lbs 02/23/2015 Blood Pressure 1: 142/64 Code : 8480-6 BMI: 37.0 Code : 85475-2 Heart Rate 1 : 56 bpm Height: 5'6" SpO2: 96% Weight: 229 lbs 01/08/2015 Blood Pressure 1: 128/88 Code : 8480-6 BMI: 37.3 Code : 92942-7 Heart Rate 1 : 74 bpm Height: 5'6" Weight: 231 lbs 09/24/2014 Blood Pressure 1: 128/70 Code : 8480-6 BMI: 36.8 Code : 44000-6 Heart Rate 1 : 68 bpm Height: 5'6" SpO2: 96% Weight: 228 lbs 05/11/2014 Blood Pressure 1: 148/82 Code : 8480-6 Height: Temperature: 36.2 (C) / 97.2 (F) Weight: 05/01/2014 Blood Pressure 1: 128/68 Code : 8480-6 BMI: 36.6 Code : 41423-6 Heart Rate 1 : 74 bpm Height: 5'6" Weight: 227 lbs 04/03/2014 Blood Pressure 1: 130/72 Code : 8480-6 BMI: 36.8 Code : 55628-7 Heart Rate 1 : 76 bpm Height: 5'6" Weight: 228 lbs 11/24/2013 Blood Pressure 1: 146/64 Code : 8480-6 BMI: 35.5 Code : 50028-2 Heart Rate 1 : 64 bpm Height: 5'6" Weight: 220 lbs 08/22/2013 Weight: 223 lbs 07/28/2013 Blood Pressure 1: 112/68 Code : 8480-6 BMI: 36.2 Code : 44186-5 Heart Rate 1 : 80 bpm Height: 5'6" Weight: 224 lbs 06/16/2013 Blood Pressure 1: 132/60 Code : 8480-6 BMI: 37.6 Code : 18034-6 Heart Rate 1 : 72 bpm Height: 5'6" Weight: 233 lbs 01/22/2013 Blood Pressure 1: 130/64 Code : 8480-6 BMI: 37.3 Code : 39665-1 Heart Rate 1 : 80 bpm Height: 5'6" Weight: 231 lbs 10/02/2012 Blood Pressure 1: 146/90 Code : 8480-6 BMI: 36.8 Code : 17432-6 Heart Rate 1 : 60 bpm Height: [...] Code : 8480-6 BMI: 37.1 Code : 31873-4 Heart Rate 1 : 60 bpm Height: 5'6" Respiratory Rate: 16 bpm Weight: 230 lbs 12/20/2011 Blood Pressure 1: 142/66 Code : 8480-6 BMI: 35.8 Code : 81899-9 Heart Rate 1 : 66 bpm Height: [...] Code : 8480-6 BMI: 36.2 Code : 16925-1 Heart Rate 1 : 64 bpm Height: [...] knee pain Quality intermittent 02/23/2015 seeing Kevin [facility] diabetes mellitus Test results HgbA1c level [...] lesion Location on the right cheek 01/22/2013 bahai area edema Quality painful 01/22/2013 None edema [...] data Encounters Encounter Performer Location Codes Date ([id number]) [id number] EST. PATIENT, LEVEL II Diagnosis: Type 2 diabetes mellitus with hyperglycemia[ICD10: E11.65] Chantell Garcia MD, [facility] CPT-4: 89481 08/08/2018 [id number] 11673 EST. PATIENT, LEVEL IV Diagnosis: Essential (primary) hypertension[ICD10: I10] Diagnosis: Type 2 diabetes mellitus with hyperglycemia[ICD10: E11.65] Diagnosis: Chronic kidney disease, stage 3 (moderate)[ICD10: N18.3] Chantell Garcia MD , [facility] CPT-4: 93511 08/05/2018 27561 EST. PATIENT, LEVEL III Diagnosis: Sacrococcygeal disorders, not elsewhere classified[ICD10: M53.3] Diagnosis: Low back pain[ICD10: M54.5] Diagnosis: Sciatica, right side[ICD10: M54.31] Yady Garcia MD, [facility] CPT-4: 39901 05/29/2018 ([id number]) 49649 EST. PATIENT, LEVEL IV Diagnosis: Type 2 diabetes mellitus without complications[ICD10: E11.9] Diagnosis: Chronic kidney disease, stage 3 (moderate)[ICD10: N18.3] Diagnosis: Essential (primary) hypertension[ICD10: I10] Diagnosis: Other vitamin B12 deficiency anemias[ICD10: D51.8] Chantell Garcia MD, [facility] CPT-4: 03954 05/07/2018 ([id number]) 91810 EST. PATIENT, LEVEL IV Diagnosis: Type 2 diabetes mellitus without complications[ICD10: E11.9] Diagnosis: Essential (primary) hypertension[ICD10: I10] Diagnosis: Chronic atrial fibrillation[ICD10: I48.2] Daisy Garcia MD, [facility] CPT-4: 51184 01/01/2018 ([id number]) 23351 EST. 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 PATIENT, LEVEL IV Diagnosis: Type 2 diabetes mellitus with hyperglycemia[ICD10: E11.65] Diagnosis: Essential (primary) hypertension[ICD10: I10] Diagnosis: Pain in left knee[ICD10: M25.562] Diagnosis: Other vitamin B12 deficiency anemias[ICD10: D51.8] Daisy Garcia MD, [facility] CPT-4: 32571 12/18/2017 96976 EST. PATIENT, LEVEL III Diagnosis: Pain in left knee[ICD10: M25.562] Yady Garcia MD, [facility] CPT -4: 07066 12/13/2017 ([id number]) 40869 EST. PATIENT, LEVEL IV Diagnosis: Type 2 diabetes mellitus without complications[ICD10: E11.9] Diagnosis: Essential (primary) hypertension[ICD10: I10] Diagnosis: Other vitamin B12 deficiency anemias[ICD10: D51.8] Diagnosis: Allergic rhinitis due to animal (cat) (dog) hair and dander[ICD10: J30.81] Daisy Garcia MD, [facility] CPT-4: 23053 2016 ([id number]) 40200 EST. 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 PATIENT, LEVEL IV Diagnosis: Type 2 diabetes mellitus without complications[ICD10: E11.9] Diagnosis: Essential (primary) hypertension[ICD10: I10] Diagnosis: Chronic atrial fibrillation[ICD10: I48.2] Daisy Garcia MD, [facility] CPT-4: 14342 04/16/2017 ([id number]) 60541 EST. PATIENT, LEVEL III Diagnosis: Sciatica, left side[ICD10: M54.32] Diagnosis: Sacroiliitis, not elsewhere classified[ICD10: M46.1] Chantell Garcia MD, [facility] CPT-4: 08494 02/23/2017 ([id number]) 13017 EST. PATIENT, LEVEL IV Diagnosis: Type 2 diabetes mellitus without complications[ICD10: E11.9] Diagnosis: Essential (primary) hypertension[ICD10: I10] Daisy Garcia MD, [facility] CPT-4: 21577 12/26/2016 ([id number]) 87280 EST. PATIENT, LEVEL III Diagnosis: Cough[ICD10: R05] Diagnosis: Acute bronchitis, unspecified[ICD10: J20.9] Chantell Garcia MD, [facility] CPT-4: 18763 09/07/2016 ([id number]) 08664 EST. PATIENT, LEVEL IV Diagnosis: Type 2 diabetes mellitus without complications[ICD10: E11.9] Diagnosis: Cough[ICD10: R05] Diagnosis: Acute laryngopharyngitis[ICD10: J06.0] Diagnosis: Acute recurrent maxillary sinusitis[ICD10: J01.01] Daisy Garcia MD, [facility] CPT-4: 68697 08/29/2016 [id number] EST. PATIENT, LEVEL IV Diagnosis: Other allergic rhinitis[ICD10: J30.89] Diagnosis: Other vitamin B12 deficiency anemias[ICD10: D51.8] Yady Garcia MD, [facility] CPT-4: 33458 06/12/2016 ([id number]) 99250 EST. PATIENT, LEVEL III Diagnosis: Urinary tract infection, site not specified[ICD10: N39.0] Diagnosis: Fever, unspecified[ICD10: R50.9] Diagnosis: Other vitamin B12 deficiency anemias[ICD10: D51.8] Chantell Garcia MD, [facility] CPT-4: 01106 05/04/2016 ([id number]) 90368 EST. 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 PATIENT, LEVEL IV Diagnosis: Type 2 diabetes mellitus with hyperglycemia[ICD10: E11.65] Diagnosis: Essential (primary) hypertension[ICD10: I10] Daisy Garcia MD, [facility] CPT-4: 36856 11/30/2015 ([id number]) 88307 EST. PATIENT, LEVEL III Diagnosis: Acute recurrent maxillary sinusitis[ICD10: J01.01] Diagnosis: Unspecified acute conjunctivitis, right eye[ICD10: H10.31] Diagnosis: Vitamin B12 deficiency anemia, unspecified[ICD10: D51.9] Chantell Garcia MD , [facility] CPT-4: 28732 09/06/2015 20149 EST. PATIENT, LEVEL III Diagnosis: Pain in right knee[ICD10: M25.561] Diagnosis: Essential (primary) hypertension[ICD10: I10] Diagnosis: Vitamin B12 deficiency anemia, unspecified[ICD10: D51.9] Yady Garcia MD, [facility] CPT-4: 09664 08/04/2015 ([id number]) 64494 EST. PATIENT, LEVEL III Diagnosis: Streptococcal pharyngitis[ICD10: J02.0] Diagnosis: Acute recurrent maxillary sinusitis[ICD10: J01.01] Chantell Garcia MD, [facility] CPT-4: 58155 07/05/2015 ([id number]) 92664 EST. PATIENT, LEVEL IV Diagnosis: Type 2 diabetes mellitus with hyperglycemia[ICD10: E11.65] Diagnosis: Essential (primary) hypertension[ICD10: I10] Diagnosis: Vitamin B12 deficiency anemia, unspecified[ICD10: D51.9] Daisy Garcia MD, [facility] CPT-4: 10993 06/28/2015 ([id number]) 13289 EST. PATIENT, LEVEL IV Diagnosis: DM W/O COMPLICATION TYPE II, UNCONTROLLED[ICD9: 250.02] Diagnosis: ESSENTIAL HYPERTENSION[ICD9: 401.9] Diagnosis: Iron deficiency[ICD9: 280.9] Diagnosis: [facility] SCREENING MAMMOGRAM[ICD9: V76.12] Diagnosis: B12 deficiency[ICD9: 266.2] Daisy Garcia MD, [facility] CPT- 4: 24912 02/23/2015 ([id number]) 12552 EST. PATIENT, LEVEL IV Diagnosis: DM W/O COMPLICATION TYPE II, UNCONTROLLED[ICD9: 250.02] Diagnosis: ESSENTIAL HYPERTENSION[ICD9: 401.9] Diagnosis: Right knee pain[ICD9: 719.46] Diagnosis: B12 deficiency[ICD9: 266.2] Chantell Garcia MD, [facility] CPT-4: 83969 01/08/2015 ([id number]) 97732 EST. PATIENT, LEVEL IV Diagnosis: DM W/O COMPLICATION TYPE II, UNCONTROLLED[ICD9: 250.02] Diagnosis: ESSENTIAL HYPERTENSION[ICD9: 401.9] Diagnosis: Iron deficiency[ICD9: 280.9] Daisy Garcia MD, [facility] CPT- 4: 43264 09/24/2014 ([id number]) 27331 EST. PATIENT, LEVEL III Diagnosis: Sacroiliitis[ICD9: 720.2] Diagnosis: Left sided sciatica[ICD9: 724.3] Chantell Garcia MD, [facility] CPT-4: 19092 05/11/2014 ([id number]) 14626 EST. PATIENT, LEVEL III Diagnosis: CELLULITIS OF BUTTOCK[ICD9: 682.5] Daisy Garcia MD [facility] CPT-4: 07006 05/01/2014 46350 EST. PATIENT, LEVEL IV Diagnosis: ESSENTIAL HYPERTENSION[ICD9: 401.9] Diagnosis: DIABETES TYPE II[ICD9: 250.00] Diagnosis: Iron deficiency[ICD9: 280.9] Diagnosis: LUMBAGO[ICD9: 724.2] Daisy Garcia MD, [facility] CPT-4: 27081 04/03/2014 ([id number]) 45881 EST. PATIENT, LEVEL IV Diagnosis: ESSENTIAL HYPERTENSION[SNOMED: 48470418] Diagnosis: DIABETES TYPE II[SNOMED: 910065091] Diagnosis: ANEMIA[ICD9: 285.9] Diagnosis: Iron deficiency[ICD9: 280.9] Daisy Garcia MD [facility] CPT- 4: 54770 11/24/2013 ([id number]) 32009 EST. PATIENT, LEVEL IV Diagnosis: ESSENTIAL HYPERTENSION[SNOMED: 95141434] Diagnosis: DIABETES TYPE II[SNOMED: 998537307] Diagnosis: EDEMA[ICD9: 782.3] Daisy Garcia MD, [facility] CPT-4: 78098 07/28/2013 ([id number]) 22904 EST. PATIENT, LEVEL IV Diagnosis: ESSENTIAL HYPERTENSION[SNOMED: 37434579] Diagnosis: DIABETES TYPE II[SNOMED: 505240987] Diagnosis: EDEMA[ICD9: 782.3] Diagnosis: B-COMPLEX DEFIC NEC[ICD9: 266.2] Daisy Garcia MD, [facility] CPT-4: 64417 06/16/2013 ([id number]) 29327 EST. PATIENT, LEVEL IV Diagnosis: ESSENTIAL HYPERTENSION[SNOMED: 60512115] Diagnosis: DIABETES TYPE II[SNOMED: 164945781] Diagnosis: EDEMA[ICD9: 782.3] Diagnosis: B-COMPLEX DEFIC NEC[ICD9: 266.2] [facility], [facility] [facility] CPT-4: 33444 01/22/2013 ([id number]) 37419 EST. PATIENT, LEVEL III Diagnosis: Lumbago[ICD9: 724.2] Diagnosis: Sacroiliitis[ICD9: 720.2] Diagnosis: ESSENTIAL HYPERTENSION[SNOMED: 45593756] Daisy Garcia MD [facility] CPT-4: 41640 10/02/2012 ([id number]) 25457 EST. PATIENT, LEVEL III Diagnosis: ACUTE URI[ICD9: 465.9] Daisy Garcia MD [facility] CPT-4: 57932 08/06/2012 ([id number]) 69747 EST. PATIENT, LEVEL IV Diagnosis: ESSENTIAL HYPERTENSION[SNOMED: 15349531] Diagnosis: DIABETES TYPE II[SNOMED: 237961525] Diagnosis: ANEMIA[ICD9: 285.9] Daisy Garcia MD, [facility] CPT-4: 93949 07/04/2012 ([id number]) 55801 EST. 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 PATIENT, LEVEL III Diagnosis: Sciatica of right side[ICD9: 724.3] Diagnosis: Sacroiliitis[ICD9: 720.2] Chantell Garcia MD, [facility] CPT-4: 82905 12/28/2011 ([id number]) 86634 EST. PATIENT, LEVEL IV Diagnosis: DIABETES TYPE II[SNOMED: 055927029] Diagnosis: ESSENTIAL HYPERTENSION[SNOMED: 39978417] Daisy Garcia MD, [facility] CPT-4: 87325 12/20/2011 ([id number]) 15775 EST. PATIENT, LEVEL IV Diagnosis: ESSENTIAL HYPERTENSION[SNOMED: 98375353] Diagnosis: DIABETES TYPE II[SNOMED: 989015211] Diagnosis: PAIN IN LIMB[ICD9: 729.5] Diagnosis: LUMBAGO[ICD9: 724.2] Diagnosis: Sacroiliitis[ICD9: 720.2] Daisy Garcia MD, [facility] CPT-4: 57563 08/23/2011 59405 EST. 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 PATIENT, LEVEL IV Diagnosis: DIABETES TYPE II[SNOMED: 694002492] Diagnosis: ESSENTIAL HYPERTENSION[SNOMED: 58250016] Diagnosis: Feces incontinence[ICD9: 787.60] Daisy Garcia MD, [facility] CPT-4: 72113 04/26/2011 Plan of Care Planned Activity Notes Codes Status Date Visit Plan: DM-IPRO placed today to evaluate patient's blood sugars to be able to more effectively manage diabetes -instructed patient to continue to monitor blood sugars as directed and keep log of food intake - patient verbalized understanding of plan. 08/08/2018 Patient Education: Patient Medication Summary Completed [...] stage 3-patient is seeing Dr Shields -kirsten glipizidmarlon and byetta - monitor labs 08/05/2018 Visit [...] monitor labs 08/05/2018 Appointment: Chantell Singh [facility]el[phone] ([facility] min) [facility] 08/05/2018 Patient Education: Patient Medication Summary Completed [...] worsen. 05/29/2018 Appointment: [facility] Harper [facility]el[phone] [facility] (15 min) Moderate 05/29/2018 Patient Education: Patient [...] at home. 01/01/2018 Appointment: Daisy Garcia [facility]Ptel: [facility] (15 min) Moderate 01/01/2018 Patient Education: Patient [...] weekend. 12/27/2017 Appointment: Daisy [facility]el[phone] [place] (15 min) Moderate 12/27/2017 Patient Education: Patient [...] in clinic. 12/18/2017 Appointment: Daisy Garcia WPtel: [facility] [place] (15 min) Moderate 12/18/2017 Patient Education: Patient Medication Summary Completed 12/18/2017 Care Plan: COMPLETE CBC AUTOMATED LOINC : 96661-9 Pending 12/18/2017 Visit Plan: Left knee pain - will have pt use RICE - Rest, Ice, Compression, Elevation - will order x-ray - The pt is to use prn antiinflammatories to manage acute pain. The patient is to call the office if the pain is worsening or does not improve. 12/13/2017 Appointment: [facility]el[phone] [facility] [place] (30 min) Complex 12/13/2017 Patient Education: Patient Medication Summary Completed 12/13/2017 Care Plan: X-RAY EXAM OF KNEE 3 LOINC : 92638-7 Pending 12/13/2017 Appointment: Injection 11/20/2017 Patient Education: Patient Medication Summary Completed 11/20/2017 Appointment: Daisy Garcia WPtel: [facility] [place] (15 min) Moderate 09/18/2017 Appointment: Injection [...] today. 06/18/2017 Appointment: Daisy Garcia [facility]el[phone] [facility] (15 min) Moderate 06/18/2017 Patient Education: Patient [...] days 06/07/2017 Appointment: Daisy [facility]el[phone] [place] (15 min) Moderate 06/07/2017 Patient Education: Patient Medication Summary Completed 06/07/2017 Patient Education: Obesity Completed 06/07/2017 Appointment: Injection 05/09/2017 Patient Education: Patient Medication Summary Completed 05/09/2017 Appointment: Daisy Garcia WPtel: [facility] [place] (15 min) Moderate 04/26/2017 Patient Education: [...] cardizem 04/16/2017 Appointment: Daisy Garcia WPtel: [phone] [facility] (15 min) Moderate 04/16/2017 Appointment: Daisy Garcia WPtel: [phone] [facility] (15 min) Moderate 04/16/2017 Patient Education: Patient [...] less controlled. 12/26/2016 Appointment: Daisy Garcia [facility]Ptel: [facility] (15 min) Moderate 12/26/2016 Patient Education: Patient Medication Summary Completed 12/26/2016 Appointment: Injection 11/14/2016 Patient Education: Patient Medication Summary Completed 11/14/2016 Visit Plan: Bronchitis - acute case of bronchitis identified. Pt has been given antibiotics, breathing treatments as appropriate, and pt has been instructed to call if symptoms are not improved, or if symptoms acutely worsen. 09/07/2016 Appointment: Chant[facility] Singh [facility]Ptel[phone] [phone] (30 min) Complex 09/07/2016 Patient Education: Patient [...] show improvement. 08/29/2016 Appointment: Daisy Garcia WPtel: [phone] [facility] [place] (15 min) Moderate 08/29/2016 Patient Education: Patient Medication Summary Completed 08/29/2016 Patient Education: Obesity Completed 08/29/2016 Appointment: Daisy Garcia WPtel: 101 [facility] [place] (15 min) Moderate 08/22/2016 Appointment: Arnold Garciay WPtel: [phone] [facility] [place] (15 min) Moderate 08/02/2016 Appointment: Chantell Singh WPtel: [phone] [phone] [place] (30 min) Complex 08/02/2016 Visit [...] allergy spray. 06/12/2016 Appointment: [facility]el[phone] [facility] [place] (15 min) Moderate 06/12/2016 Patient Education: [...] office 05/04/2016 Appointment: Chantell Singh WPtel: [phone] [phone] [place] (15 min) Moderate 05/04/2016 Patient [...] cream. 03/30/2016 Appointment: Daisy Garcia [facility]Ptel: [phone] [facility] [place] (15 min) Moderate 03/30/2016 Patient Education: Patient Medication Summary Completed 03/30/2016 Patient Education: Hypertension Completed 03/30/2016 Appointment: Injection 03/17/2016 Patient Education: Patient Medication Summary Completed 03/17/2016 Appointment: Injection 02/15/2016 Patient Education: Patient Medication Summary Completed 02/15/2016 Appointment: Daisy Garcia [facility]Ptel: [phone] [facility] [place] (15 min) Moderate 01/26/2016 Appointment: Injection [...] acute concerns. 11/30/2015 Appointment: Daisy Garcia WPtel: [phone] [facility] (15 min) Moderate 11/30/2015 Patient Education: Patient Medication Summary Completed 11/30/2015 Patient Education: Obesity Completed 11/30/2015 Appointment: Daisy Garcia WPtel: [phone] [facility] [place] (15 min) Moderate 10/26/2015 Visit Plan: [...] at home. 06/28/2015 Appointment: Daisy Garcia WPtel: [facility] (15 min) Moderate 06/28/2015 Patient Education: Patient [...] without resting. 02/23/2015 Appointment: Daisy Garcia WPtel: [facility] Follow up 02/23/2015 Patient Education: Patient Medication Summary Completed 02/23/2015 Patient Education: Hypertension Completed 02/23/2015 Care Plan: SCREENINGMAMMOGRAPHYDIGITAL LOINC : 67462-6 Ordered 02/23/2015 Visit Plan: Depression - uncontrolled [...] Care Plan: COMPLETE CBC AUTOMATED LOINC : 29451-8 Ordered 01/08/2015 Appointment: Injection 12/08/2014 Patient Education: [...] and diarrhea. 09/24/2014 Appointment: Daisy Garcia WPtel: [facility] Follow up 09/24/2014 Patient Education: Patient Medication Summary Completed 09/24/2014 Patient Education: Hypertension Completed 09/24/2014 Appointment: Daisy Garcia WPtel: [phone] [facility] [place] Injection 08/24/2014 Patient Education: Patient Medication [...] warmth, discharge. 05/01/2014 Appointment: Daisy Garcia WPtel: [facility]5 [facility] Follow up 05/01/2014 Patient Education: Patient Medication Summary Completed 05/01/2014 Appointment: Daisy Garcia WPtel: [address] [place], [place] [phone] [place] Injection 04/27/2014 Patient Education: Patient Medication [...] for pain 04/03/2014 Appointment: Chantell Singh WPtel: [facility]5 [phone] Follow up 04/03/2014 Patient Education: Patient Medication Summary Completed 04/03/2014 Patient Education: Hypertension Completed 04/03/2014 Visit Plan: vitamin b12 injection 03/24/2014 Appointment: Daisy Garcia WPtel: [facility]5 [facility] [place] Injection 03/24/2014 Patient Education: Patient Medication Summary Completed 03/24/2014 Appointment: Daisy Garcia WPtel: [facility]5 [facility] [place] Follow up 03/23/2014 Appointment: Daisy Garcia WPtel: [phone] [facility] [place] Injection 02/24/2014 Patient Education: Patient Medication Summary Completed 02/24/2014 Appointment: Chant[facility] Singh [facility]Ptel: [phone] [phone] [place] Injection 01/09/2014 Patient Education: Patient Medication [...] oral supplementation. 11/24/2013 Appointment: Daisy Garcia WPtel: [address] [place] [address] [place] Follow up 11/24/2013 Patient Education: Patient Medication Summary Completed 11/24/2013 Patient Education: Hypertension Completed 11/24/2013 Appointment: Daisy Garcia WPtel: [address] [place], [place] [phone] [place] Follow up 11/12/2013 Appointment: Daisy Garcia WPtel: [facility] [place] Follow up 10/27/2013 Appointment: Chant[facility] Singh [facility]Ptel: [phone] [phone] [place] Injection 09/18/2013 Patient Education: Patient Medication Summary Completed 09/18/2013 Appointment: Chantell Singh WPtel: [phone] [phone] [place] Injection 08/22/2013 Patient Education: Patient Medication [...] of control. check labs today 07/28/2013 Appointment: Dasiy Garcia WPtel: [facility] [place] Follow up 07/28/2013 Patient Education: Patient Medication Summary Completed 07/28/2013 Patient Education: Hypertension Completed 07/28/2013 Appointment: Chantell Singh WPtel: [phone] [place] Injection 06/20/2013 Visit Plan: Diabetes Mellitus [...] edema. 06/16/2013 Appointment: Daisy Garcia WPtel: [phone] [facility] [place] Follow up 06/16/2013 Patient Education: Patient Medication Summary Completed 06/16/2013 Patient Education: Hypertension Completed 06/16/2013 Appointment: Chantell Singh WPtel: [phone] [phone] [place] Injection 05/21/2013 Patient Education: Patient Medication Summary Completed 05/21/2013 Appointment: Daisy Garcia [facility]Ptel: [phone] [facility] [place] Injection 04/23/2013 Patient Education: Patient Medication Summary Completed 04/23/2013 Appointment: Daisy Garcia WPtel: [phone] [facility] [place] Injection 03/24/2013 Patient Education: Patient Medication Summary Completed 03/24/2013 Appointment: Daisy Garcia WPtel: [phone] [facility] [place] Injection 02/20/2013 Patient Education: Patient Medication [...] edema. 01/22/2013 Appointment: Daisy Garcia WPtel: [phone] [facility] [place] Follow up 01/22/2013 Patient Education: Patient Medication Summary Completed 01/22/2013 Patient Education: Hypertension Completed 01/22/2013 Appointment: Daisy Garcia WPtel: [phone] [place] Injection 01/21/2013 Patient Education: Patient Medication Summary Completed 12/19/2012 Appointment: Daisy Garcia WPtel: [phone] [facility] [place] Injection 11/22/2012 Appointment: Daisy Garcia WPtel: [phone] [facility] [place] Injection 11/20/2012 Patient Education: Patient Medication Summary Completed 11/20/2012 Appointment: Chantell Singh [facility]Ptel: [phone] [phone] [place] Injection 11/08/2012 Appointment: Daisy Garcia WPtel: [phone] [place] Injection 10/23/2012 Patient Education: Patient Medication [...] Hypertension Completed 10/02/2012 Appointment: Chantell Singh WPtel: [facility]5 [phone] [[email or web address]] Lab Draw 09/16/2012 Patient Education: Patient Medication [...] the office. 08/06/2012 Appointment: Chantell Singh WPtel: [facility]5 [phone] [facility] 08/06/2012 Patient Education: Patient Medication Summary Completed 08/06/2012 Patient Education: Patient Medication Summary Completed 07/19/2012 Visit Plan: Joint Injection - Pt was given post - injection instructions. The pt has been advised to use antiinflammatories post injection today, ice to the injected site, call if redness, warmth, or increased pain occurs at the site of injection. 07/10/2012 Appointment: Daisy Garcia WPtel: [facility]5 [facility] Injection 07/10/2012 Patient Education: Patient [...] less controlled. 07/04/2012 Appointment: Daisy Garcia WPtel: [facility] Follow up 07/04/2012 Patient Education: Patient Medication Summary Completed 07/04/2012 Patient Education: Hypertension Completed 07/04/2012 Appointment: Daisy Garcia WPtel: [phone] [facility] [place] Injection 06/19/2012 Patient Education: Patient Medication [...] office. 05/22/2012 Appointment: Chant[facility]Ptel[phone] [phone] Follow up 05/22/2012 Appointment: Chantell Singh WPtel: [phone] [facility] Follow up 05/22/2012 Patient Education: Patient Medication [...] the office 04/22/2012 Appointment: Chantell Singh WPtel: [facility]5 [phone] Established Patient Preventative visit 04/22/2012 Patient Education: Patient Medication Summary Completed 04/22/2012 Patient Education: High Blood Pressure: Essential Hypertension Completed 2011 Appointment: Chantell Singh WPtel: [facility]5 [phone] [place] Injection 03/19/2012 Patient Education: Patient Medication Summary Completed 03/19/2012 Appointment: Daisy Garcia WPtel: [facility] [place] Injection 02/15/2012 Patient Education: Patient Medication Summary Completed 02/15/2012 Appointment: Daisy Garcia WPtel: [phone] [facility] [place] Injection 01/18/2012 Patient Education: Patient Medication [...] worse. 12/28/2011 Appointment: Chantell Singh WPtel: [phone] [phone] [place] Other 12/28/2011 Patient Education: Patient [...] shot today. 12/20/2011 Appointment: Daisy Garcia WPtel: [facility]5 [facility] [place] Other 12/20/2011 Patient Education: Patient Medication Summary Completed 12/20/2011 Patient Education: High Blood Pressure: Essential Hypertension Completed 2011 Appointment: Chantell Singh WPtel: [phone] [phone] [place] Injection 11/07/2011 Patient Education: Patient Medication Summary Completed 11/07/2011 Appointment: Daisy Garcia WPtel: [facility] [place] Injection 10/03/2011 Patient Education: Patient Medication Summary Completed 10/03/2011 Appointment: Daisy Garcia WPtel: [phone] [place] Injection 08/28/2011 Visit Plan: Hypertension - [...] left today 08/23/2011 Appointment: Daisy Garcia WPtel: [facility]9 [facility] [place] 08/23/2011 Patient Education: Patient Medication Summary Completed 08/23/2011 Patient Education: High Blood Pressure: Essential Hypertension Completed 2011 Appointment: Chantell Singh WPtel: [address] [place] [address] [place] Injection 07/28/2011 Patient Education: Patient Medication Summary Completed 07/28/2011 Visit Plan: b12 injection 06/29/2011 Appointment: Chantell Singh WPtel: [address] [place], [place] [phone] [place] Injection 06/29/2011 Patient Education: Patient Medication [...] the office 05/23/2011 Appointment: Chantell Singh WPtel: [facility]1 [phone] Other 05/23/2011 Patient Education: Patient Medication [...] DAILY IRON. 04/26/2011 Appointment: Daisy Garcia WPtel: [address] [place], [place] [address] [place] 04/26/2011 Patient Education: Patient Medication Summary [...] shot today. Once pt runs out of byetta, she [...] to further attempt to reduce peripheral edema. Monitor your blood pressure at home and [...] B12 deficiency-B12 injection today in the office CALL SUNDAY IF NOT BETTER-ZPACK OR DOXYCYCLINE KENALOG INJECTION TODAY-START SHORT COURSE OF PREDNISONE TOMORROW . Bronchitis - acute case of bronchitis identified. Pt has been given antibiotics, breathing treatments as appropriate, and pt has been instructed to call if symptoms are not improved, or if symptoms acutely worsen.
[2018-10-02] MEDS ORDERED: NS IV 1000 ML 1,000 ML IV SCH (07:00)
[2018-10-02] MEDS ORDERED: LIDOCAINE 2% VISCOUS 15 ML UDC ONE (07:04)
[2018-10-02] MEDS ORDERED: NS IV 1000 ML 1,000 ML ONE (07:05)
--- OUTSIDE RECORDS SUMMARY | 2018-10-02 07:05 | XMS REPORT | CCD ---
Author Author Daisy [facility] Organization [facility] Address [address] [place] [address] Phone Care Team Providers Care Sales Service Executive Name Role Phone Daisy Garcia PP Unavailable CCM Unavailable Summary Purpose Interface Exchange Insurance Providers Payer name Policy type / Coverage type Covered libertarian ID Effective Begin Date Effective End Date WPS Medicare Part B Medicare Part B [id number] 2018 Unknown [place] [employer] Medicare Part B [id number] 2018 Unknown Family history Sister Diagnosis Age [...] 1 daughter 04/21/[address]: 673863285 Nonsmoker 04/21/[address]: 555454980 Never drinks alcohol 04/21/2011 Has the patient [...] Codes Condition Status Onset Date Resolved Date Chronic atrial fibrillation ICD-9: 427.31 ICD-10: I48.2 Active 04/16/2017 Unknown Chronic kidney disease, stage 3 (moderate) ICD-9: 585.3 ICD-10: N18.3 Active 05/07/2018 Unknown Essential (primary) hypertension ICD-9: 401.9 ICD-10: I10 Active 04/03/2014 Unknown Type 2 diabetes mellitus with hyperglycemia ICD-9: 250.02 ICD-10: E11.65 Active 12/18/2017 Unknown Low back pain ICD-9: 724.2 ICD-10: [...] Problems Condition Codes Effective Dates Condition Status Chronic atrial fibrillation ICD-9: 427.31 ICD-10: I48.2 04/16/2017 Active Chronic kidney disease, stage 3 (moderate) ICD-9: 585.3 ICD-10: N18.3 05/07/2018 Active Essential (primary) hypertension ICD-9: 401.9 ICD-10: I10 04/03/2014 Active Type 2 diabetes mellitus with hyperglycemia ICD-9: 250.02 ICD-10: E11.65 12/18/2017 Active Low back pain ICD-9: 724.2 ICD-10: [...] capsule sprinkle, ext. release 24 hr RxNorm: 4627075 1 Capsule(s) PO daily 08/05/2018 Active Lasix 20 mg tablet RxNorm: 659490 TAKE ONE TABLET BY MOUTH DAILY NEEDED FOR SWELLING. TAKE POTASSIUM WITH EACH DOSE. 08/02/2018 04/28/2019 Active potassium chloride ER 20 mEq tablet,extended release(part/ cryst) RxNorm: 1086067 TAKE ONE TABLET BY MOUTH DAILY WHEN YOU TAKE LASIX (FUROSEMIDE) 08/02/2018 07/27/2019 Active Lasix 20 mg tablet RxNorm: 984696 Tablet(s) TAKE ONE TABLET BY MOUTH DAILY NEEDED FOR SWELLING. TAKE POTASSIUM WITH EACH DOSE 201808/01/2018 Inactive potassium chloride ER 20 mEq tablet,extended release(part/ cryst) RxNorm: 0407159 Tablet(s) TAKE ONE TABLET BY MOUTH DAILY WHEN YOU TAKE LASIX (FUROSEMIDE) 08/02/2018 08/01/2018 Inactive spironolactone 25 mg tablet RxNorm: 086276 Tablet(s) TAKE ONE TABLET BY MOUTH TWICE A DAY 06/11/2018 06/05/2019 Active Zorvolex 35 mg capsule RxNorm: 1288920 1 Capsule(s) PO TID 07/201706/28/2018 Inactive Lexapro 5 mg tablet RxNorm: 977633 TAKE ONE TABLET BY MOUTH EVERY EVENING 05/30/2018 08/22/2019 Active Zorvolex 35 mg capsule RxNorm: 2487004 1 Capsule(s) PO TID 07/201705/29/2018 Inactive Kenalog 40 mg/mL suspension for injection RxNorm: 0416684 1 Milliliter(s) Inj 05/29/2018 05/29/2018 Inactive Lomotil 2.5 mg-0.025 mg tablet RxNorm: 6835464 Tablet(s) PO TAKE ONE TABLET BY MOUTH EVERY 8 HOURS NEEDED 05/08/2018 07/06/2018 Inactive warfarin 2 mg tablet RxNorm: 280654 1 Tablet(s) PO daily 3 days per week, 1/2 Tablet PO 4 days per week- Dr. Andrews manages 05/07/2018 No Stop Date Active cyanocobalamin (vit B-12) 1,000 mcg/mL injection solution RxNorm: 741986 1 Milliliter(s) Inj 05/07/2018 05/07/2018 Inactive Lasix 20 mg tablet RxNorm: 279016 TAKE ONE TABLET BY MOUTH DAILY NEEDED FOR SWELLING. TAKE POTASSIUM WITH EACH DOSE 04/30/2018 08/01/2018 Inactive Synthroid 50 mcg tablet RxNorm: 093745 TAKE ONE TABLET BY MOUTH EVERY DAY. 04/23/2018 07/16/2019 Active cyanocobalamin (vit B-12) 1,000 mcg/mL injection solution RxNorm: 335390 Milliliter(s) Inj 04/04/2018 04/04/2018 Inactive glipizide 10 mg tablet RxNorm: 232562 Tablet(s) TAKE ONE TABLET BY MOUTH TWICE A DAY 04/03/2018 07/16/2018 Inactive amlodipine 5 mg tablet RxNorm: 868291 TAKE ONE TABLET BY MOUTH TWICE A DAY 03/12/2018 03/06/2019 Active potassium chloride ER 20 mEq tablet,extended release(part/ cryst) RxNorm: 3668741 TAKE ONE TABLET BY MOUTH DAILY WHEN YOU TAKE LASIX (FUROSEMIDE) 03/12/2018 08/01/2018 Inactive spironolactone 25 mg tablet RxNorm: 577933 TAKE ONE TABLET BY MOUTH TWICE A DAY 03/11/2018 06/10/2018 Inactive cyanocobalamin (vit B-12) 1,000 mcg/mL injection solution RxNorm: 513106 1 Milliliter(s) Inj 03/04/2018 03/04/2018 Inactive cyanocobalamin (vit B-12) 1,000 mcg/mL injection solution RxNorm: 065426 1 Milliliter(s) Inj 01/29/2018 01/29/2018 Inactive amlodipine 5 mg tablet RxNorm: 896169 1 Tablet(s) PO QPM 201703/11/2018 Inactive amiodarone 200 mg tablet RxNorm: 923273 1/2 Tablet(s) PO daily 01/29/2018 08/01/2018 Inactive Lexapro 5 mg tablet RxNorm: 805344 1 Tablet(s) PO QPM 201705/29/2018 Inactive warfarin 2 mg tablet RxNorm: 838030 1 Tablet(s) PO daily 4 days per week, 1/2 Tablet PO 3 days per week 01/29/201805/06 Inactive Tenex 1 mg tablet RxNorm: 968327 TAKE ONE TABLET BY MOUTH DAILY 01/21/2018 01/15/2019 Active acyclovir 800 mg tablet RxNorm: 165498 1 Tablet(s) PO TID use if needed for mouth sores 01/01/2018 01/14/2018 Inactive simvastatin 20 mg tablet RxNorm: 959501 TAKE ONE TABLET BY MOUTH EVERY NIGHT AT BEDTIME 12/27/2017 01/28/2018 Inactive acyclovir 800 mg tablet RxNorm: 798501 1 Tablet(s) PO TID 12/2712/31/2017 Inactive metoprolol succinate ER 50 mg tablet,extended release 24 hr RxNorm: 734793 1 Tablet(s) PO daily 12/18/2017 07/15/2018 Inactive cyanocobalamin (vit B-12) 1,000 mcg/mL injection solution RxNorm: 031977 Milliliter(s) Inj 12/18/2017 12/18/2017 Inactive prednisone 20 mg tablet RxNorm: 315535 1 Tablet(s) PO BID 12/1312/17/2017 Inactive spironolactone 25 mg tablet RxNorm: 461261 TAKE ONE TABLET BY MOUTH TWICE A DAY 12/03/2017 03/02/2018 Inactive hydrocodone 5 mg-acetaminophen 325 mg tablet RxNorm: 028728 1-2 Tablet(s) PO Q4 PRN as needed pain 11/20/2017 No Stop Date Active cyanocobalamin (vit B-12) 1,000 mcg/mL injection solution RxNorm: 340804 1 Milliliter(s) Inj 11/20/2017 11/20/2017 Inactive Lomotil 2.5 mg-0.025 mg tablet RxNorm: 2121957 Tablet(s) PO TAKE ONE TABLET BY MOUTH EVERY 8 HOURS NEEDED 11/07/2017 01/04/2018 Inactive Synthroid 50 mcg tablet RxNorm: 495321 TAKE ONE TABLET BY MOUTH EVERY DAY. 10/16/2017 04/13/2018 Inactive potassium chloride ER 20 mEq tablet,extended release(part/ cryst) RxNorm: 1913277 TAKE ONE TABLET BY MOUTH DAILY WHEN YOU TAKE LASIX (FUROSEMIDE) 09/17/2017 03/11/2018 Inactive Lasix 20 mg tablet RxNorm: 231956 Tablet(s) TAKE ONE TABLET BY MOUTH EVERY DAY NEEDED FOR SWELLING. TAKE POTASSIUM WITH EACH DOSE 201701/07/2018 Inactive glipizide 10 mg tablet RxNorm: 207567 TAKE ONE TABLET BY MOUTH TWICE A DAY 08/28/2017 04/02/2018 Inactive Request already responded to by other means (e.g. phone or fax) glipizide 10 mg tablet RxNorm: 272689 Tablet(s) TAKE ONE TABLET BY MOUTH TWICE A DAY 08/23/2017 08/27/2017 Inactive cyanocobalamin (vit B-12) 1,000 mcg/mL injection solution RxNorm: 270450 1 Milliliter(s) Inj 08/21/2017 08/21/2017 Inactive Synthroid 50 mcg tablet RxNorm: 595229 TAKE ONE TABLET BY MOUTH EVERY DAY. 08/15/2017 10/13/2017 Inactive Tricor 145 mg tablet RxNorm: 010132 TAKE ONE TABLET BY MOUTH DAILY 07/31/2017 11/27/2017 Inactive metformin ER 500 mg tablet,extended release 24 hr RxNorm: 211311 TAKE TWO TABLETS BY MOUTH TWICE A DAY 07/31/20172017 Inactive spironolactone 25 mg tablet RxNorm: 081479 TAKE ONE TABLET BY MOUTH TWICE A DAY 07/31/2017 12/02/2017 Inactive Tenex 1 mg tablet RxNorm: 580129 TAKE ONE TABLET BY MOUTH DAILY 07/20/2017 01/15/2018 Inactive cyanocobalamin (vit B-12) 1,000 mcg/mL injection solution RxNorm: 953900 1 Milliliter(s) Inj 07/18/2017 07/18/2017 Inactive Flonase Allergy Relief 50 mcg/actuation nasal spray, suspension RxNorm: 6504379 1 [place] NASAL BID 06/18/20172017 Inactive Byetta 10 mcg/dose(250 mcg/mL)2.4 mL subcutaneous pen injector RxNorm: 717802 INJECT 10 MCG UNDER THE SKIN TWO TIMES A DAY ( START AFTER 5 MCG DOSE IS COMPLETE ) 06/18/2017 04/13/2018 Inactive potassium chloride ER 20 mEq tablet,extended release(part/ cryst) RxNorm: 5216543 TAKE ONE TABLET BY MOUTH DAILY WHEN YOU TAKE LASIX (FUROSEMIDE) 06/18/2017 09/15/2017 Inactive Kenalog 40 mg/mL suspension for injection RxNorm: 5813380 1 Milliliter(s) Inj 06/18/2017 06/18/2017 Inactive cyanocobalamin (vit B-12) 1,000 mcg/mL injection solution RxNorm: 411320 1 Milliliter(s) Inj 06/18/2017 06/18/2017 Inactive Lasix 20 mg tablet RxNorm: 373368 Tablet(s) TAKE ONE TABLET BY MOUTH EVERY DAY NEEDED FOR SWELLING. TAKE POTASSIUM WITH EACH DOSE 201609/09/2017 Inactive cyanocobalamin (vit B-12) 1,000 mcg/mL injection solution RxNorm: 753865 1 Milliliter(s) Inj 05/09/2017 05/09/2017 Inactive cyanocobalamin (vit B-12) 1,000 mcg/mL injection solution RxNorm: 293406 1 Milliliter(s) Inj 04/04/2017 04/04/2017 Inactive metformin ER 500 mg tablet,extended release 24 hr RxNorm: 551805 TAKE TWO TABLETS BY MOUTH TWICE A DAY 03/01/20172016 Inactive Kenalog 40 mg/mL suspension for injection RxNorm: 7080228 1 Milliliter(s) Inj 02/23/2017 02/23/2017 Inactive amlodipine 5 mg tablet RxNorm: 232463 TAKE ONE TABLET BY MOUTH TWICE A DAY 02/22/2017 11/18/2017 Inactive glipizide 10 mg tablet RxNorm: 214994 TAKE ONE TABLET BY MOUTH TWICE A DAY 02/12/2017 08/10/2017 Inactive cyanocobalamin (vit B-12) 1,000 mcg/mL injection solution RxNorm: 308273 Milliliter(s) Inj 01/23/2017 01/23/2017 Inactive Synthroid 50 mcg tablet RxNorm: 724834 TAKE ONE TABLET BY MOUTH EVERY DAY. 12/21/2016 06/18/2017 Inactive potassium chloride ER 20 mEq tablet,extended release(part/ cryst) RxNorm: 0058234 TAKE ONE TABLET BY MOUTH DAILY WHEN YOU TAKE LASIX (FUROSEMIDE) 12/21/2016 04/19/2017 Inactive Tricor 145 mg tablet RxNorm: 157113 TAKE ONE TABLET BY MOUTH DAILY 12/21/2016 06/06/2017 Inactive Lasix 20 mg tablet RxNorm: 678279 TAKE ONE TABLET BY MOUTH EVERY DAY NEEDED FOR SWELLING. TAKE POTASSIUM WITH EACH DOSE 12/11/2016 04/09/2017 Inactive cyanocobalamin (vit B-12) 1,000 mcg/mL injection solution RxNorm: 696140 1 Milliliter(s) Inj 11/14/2016 11/14/2016 Inactive simvastatin 20 mg tablet RxNorm: 994430 TAKE ONE TABLET BY MOUTH EVERY NIGHT AT BEDTIME 10/23/2016 04/15/2017 Inactive Tenex 1 mg tablet RxNorm: 458447 TAKE ONE TABLET BY MOUTH DAILY 10/16/2016 11/14/2016 Inactive glipizide 10 mg tablet RxNorm: 376466 TAKE ONE TABLET BY MOUTH TWICE A DAY 09/20/2016 02/11/2017 Inactive doxycycline hyclate 100 mg capsule RxNorm: 2636440 1 Capsule(s) PO BID 09/12/2016 09/18/2016 Inactive doxycycline hyclate 100 mg capsule RxNorm: 4641048 1 Capsule(s) PO BID 09/12/2016 09/11/2016 Inactive Phenergan with Codeine Syrup RxNorm: 5-10 Milliliter(s) PO Q6 PRN 09/07/2016 No Stop Date Active prednisone 20 mg tablet RxNorm: 840634 1 Tablet(s) PO BID 09/0709/11/2016 Inactive Kenalog 40 mg/mL suspension for injection RxNorm: 6237242 1 Milliliter(s) Inj 09/07/2016 09/07/2016 Inactive Tessalon Perles 100 mg capsule RxNorm: 341216 1 Capsule(s) PO TID PRN 09/01/2016 09/20/2016 Inactive Zyrtec 10 mg capsule RxNorm: 0472514 1 Capsule(s) PO daily 01/28/2018 Inactive Flonase Allergy Relief 50 mcg/actuation nasal spray, suspension RxNorm: 2002071 1 [place] NASAL BID 08/29/20162016 Inactive cyanocobalamin (vit B-12) 1,000 mcg/mL injection solution RxNorm: 672976 1 Milliliter(s) Inj 08/29/2016 08/29/2016 Inactive metformin ER 500 mg tablet,extended release 24 hr RxNorm: 085653 Tablet(s) TAKE TWO TABLETS BY MOUTH TWICE A DAY 08/28/2016 02/23/2017 Inactive Lopressor 100 mg tablet RxNorm: 409609 TAKE ONE TABLET BY MOUTH DAILY 06/27/2016 04/15/2017 Inactive cetirizine 10 mg tablet RxNorm: 3939452 1 Tablet(s) PO daily 07/11/2016 Inactive Flonase Allergy Relief 50 mcg/actuation nasal spray, suspension RxNorm: 3761569 1 [place] NASAL BID 06/12/20162016 Inactive cyanocobalamin (vit B-12) 1,000 mcg/mL injection solution RxNorm: 141017 Milliliter(s) Inj 06/12/2016 06/12/2016 Inactive spironolactone 25 mg tablet RxNorm: 127379 TAKE ONE TABLET BY MOUTH TWICE A DAY 06/06/2016 03/02/2017 Inactive Request already responded to by other means (e.g. phone or fax) spironolactone 25 mg tablet RxNorm: 993468 Tablet(s) TAKE ONE TABLET BY MOUTH TWICE A DAY 05/29/2016 06/05/2016 Inactive ceftriaxone 500 mg solution for injection RxNorm: 1160690 2 Milliliter(s) Inj 05/04/2016 05/04/2016 Inactive cyanocobalamin (vit B-12) 1,000 mcg/mL injection solution RxNorm: 514216 Milliliter(s) Inj 05/04/2016 05/04/2016 Inactive Cipro 500 mg tablet RxNorm: 026910 1 Tablet(s) PO BID 201505/10/2016 Inactive OneTouch Ultra Test strips RxNorm: TEST DAILY 04/24/2016 04/18/2017 Inactive Byetta 10 mcg/dose(250 mcg/mL)2.4 mL subcutaneous pen injector RxNorm: 243622 INJECT 10 MCG UNDER THE SKIN TWO TIMES A DAY ( START AFTER 5 MCG DOSE IS COMPLETE ) 04/18/2016 03/13/2017 Inactive Lasix 20 mg tablet RxNorm: 730899 TAKE ONE TABLET BY MOUTH EVERY DAY NEEDED FOR SWELLING. TAKE POTASSIUM WITH EACH DOSE 04/07/2016 09/03/2016 Inactive potassium chloride ER 20 mEq tablet,extended release(part/ cryst) RxNorm: 1220473 TAKE ONE TABLET BY MOUTH DAILY WHEN YOU TAKE LASIX (FUROSEMIDE) 04/07/2016 09/03/2016 Inactive triamcinolone acetonide 0.5 % topical cream RxNorm: 1148905 1 Application TOP BID to lesions on buttock 03/30/20162015 Inactive metformin ER 500 mg tablet,extended release 24 hr RxNorm: 311027 TAKE TWO TABLETS BY MOUTH TWICE A DAY 03/23/20162016 Inactive cyanocobalamin (vit B-12) 1,000 mcg/mL injection solution RxNorm: 252154 Milliliter(s) Inj 03/17/2016 03/17/2016 Inactive glipizide 10 mg tablet RxNorm: 696739 TAKE ONE TABLET BY MOUTH TWICE A DAY 03/17/2016 04/02/2018 Inactive Request already responded to by other means (e.g. phone or fax) glipizide 10 mg tablet RxNorm: 479173 Tablet(s) TAKE ONE TABLET BY MOUTH TWICE A DAY 03/13/2016 03/16/2016 Inactive Tricor 145 mg tablet RxNorm: 905807 TAKE ONE TABLET BY MOUTH ONCE A DAY 02/18/2016 02/11/2017 Inactive Request already responded to by other means (e.g. phone or fax) amlodipine 5 mg tablet RxNorm: 649661 TAKE ONE TABLET BY MOUTH TWICE A DAY 02/18/2016 05/06/2018 Inactive Request already responded to by other means (e.g. phone or fax) cyanocobalamin (vit B-12) 1,000 mcg/mL injection solution RxNorm: 631908 1 Milliliter(s) Inj 02/15/2016 02/15/2016 Inactive amlodipine 5 mg tablet RxNorm: 021359 Tablet(s) TAKE ONE TABLET BY MOUTH TWICE A DAY 02/14/2016 02/17/2016 Inactive Tricor 145 mg tablet RxNorm: 177906 1 Tablet(s) PO daily TAKE ONE TABLET BY MOUTH ONCE A DAY 02/14/2016 02/17/2016 Inactive Synthroid 50 mcg tablet RxNorm: 610276 TAKE ONE TABLET BY MOUTH EVERY DAY. 01/31/2016 08/27/2016 Inactive hydrocodone 5 mg-acetaminophen 325 mg tablet RxNorm: 364757 1-2 Tablet(s) PO Q4 PRN as needed pain 01/28/2016 11/19/2017 Inactive cyanocobalamin (vit B-12) 1,000 mcg/mL injection solution RxNorm: 524678 Milliliter(s) Inj 01/19/2016 01/19/2016 Inactive metformin ER 500 mg tablet,extended release 24 hr RxNorm: 987784 TAKE TWO TABLETS BY MOUTH TWICE A DAY 01/18/20162015 Inactive cyanocobalamin (vit B-12) 1,000 mcg/mL injection solution RxNorm: 380176 1 Milliliter(s) Inj 12/07/2015 12/07/2015 Inactive metformin ER 500 mg tablet,extended release 24 hr RxNorm: 038247 TAKE TWO TABLETS BY MOUTH TWICE A DAY 10/18/20152015 Inactive simvastatin 20 mg tablet RxNorm: 380353 1 Tablet(s) PO QHS TAKE ONE TABLET BY MOUTH AT BEDTIME 10/08/2015 10/01/2016 Inactive Tenex 1 mg tablet RxNorm: 840521 TAKE ONE TABLET BY MOUTH DAILY 10/04/2015 09/27/2016 Inactive Lopressor 100 mg tablet RxNorm: 528322 TAKE ONE TABLET BY MOUTH DAILY 09/20/2015 06/15/2016 Inactive Diflucan 150 mg tablet RxNorm: 459695 1 Tablet(s) PO daily 02/201609/12/2015 Inactive cyanocobalamin (vit B-12) 1,000 mcg/mL injection kit RxNorm: 919564 kit Inj 09/06/2015 09/06/2015 Inactive gentamicin 0.3 % eye drops RxNorm: 923589 2 Drop(s) OPH QID 02/201609/12/2015 Inactive ceftriaxone 500 mg solution for injection RxNorm: 5274537 Inj 09/06/2015 09/06/2015 Inactive Keflex 500 mg capsule RxNorm: 741041 1 Capsule(s) PO TID 201509/12/2015 Inactive hydrocodone 5 mg-acetaminophen 325 mg tablet RxNorm: 597080 1-2 Tablet(s) PO Q4 PRN as needed pain 08/09/2015 01/27/2016 Inactive Lortab 5 mg-500 mg tablet RxNorm: 376577 1-2 Tablet(s) PO Q4 PRN as needed pain 08/03/2015 08/08/2015 Inactive Diflucan 150 mg tablet RxNorm: 284772 1 Tablet(s) PO daily 07/16/2015 Inactive Lasix 20 mg tablet RxNorm: 621182 TAKE ONE TABLET BY MOUTH EVERY DAY NEEDED FOR SWELLING. TAKE POTASSIUM WITH EACH DOSE 07/13/2015 01/08/2016 Inactive spironolactone 25 mg tablet RxNorm: 179756 TAKE ONE TABLET BY MOUTH TWICE A DAY 07/13/2015 05/07/2016 Inactive potassium chloride ER 20 mEq tablet,extended release(part/ cryst) RxNorm: 470139 TAKE ONE TABLET BY MOUTH DAILY WHEN YOU TAKE LASIX (FUROSEMIDE) 07/13/2015 01/08/2016 Inactive Tessalon Perles 100 mg capsule RxNorm: 460385 1 Capsule(s) PO TID PRN 07/05/2015 08/31/2016 Inactive Keflex 500 mg capsule RxNorm: 144508 1 Capsule(s) PO TID 201407/14/2015 Inactive Kenalog 40 mg/mL suspension for injection RxNorm: 8170228 Milliliter(s) Inj 07/05/2015 07/05/2015 Inactive ceftriaxone 500 mg solution for injection RxNorm: 7006634 Inj 07/05/2015 07/05/2015 Inactive cyanocobalamin (vit B-12) 1,000 mcg/mL injection solution RxNorm: 097452 Milliliter(s) Inj 06/28/2015 06/28/2015 Inactive Synthroid 50 mcg tablet RxNorm: 292285 TAKE ONE TABLET BY MOUTH EVERY DAY. 06/21/2015 11/17/2015 Inactive metformin ER 500 mg tablet,extended release 24 hr RxNorm: 314674 TAKE TWO TABLETS BY MOUTH TWICE A DAY 06/14/20152015 Inactive glipizide 10 mg tablet RxNorm: 867871 TAKE ONE TABLET BY MOUTH TWICE A DAY 05/31/2015 02/24/2016 Inactive cyanocobalamin (vit B-12) 1,000 mcg/mL injection solution RxNorm: 369210 Milliliter(s) Inj 05/13/2015 05/13/2015 Inactive Tricor 145 mg tablet RxNorm: 290999 1 Tablet(s) PO daily TAKE ONE TABLET BY MOUTH ONCE A DAY 05/07/2015 05/06/2015 Inactive Tricor 145 mg tablet RxNorm: 305820 1 Tablet(s) PO daily TAKE ONE TABLET BY MOUTH ONCE A DAY 05/07/2015 01/31/2016 Inactive Tricor 145 mg tablet RxNorm: 456872 TAKE ONE TABLET BY MOUTH ONCE A DAY 05/06/2015 05/06/2015 Inactive Byetta 10 mcg/dose(250 mcg/mL)2.4 mL subcutaneous pen injector RxNorm: 284287 Microgram(s) SQ 10mcg twice daily ( start after 5mcg dose is complete) 04/01/2015 03/25/2016 Inactive Byetta 5 mcg/dose (250 mcg/mL)1.2 mL subcutaneous pen injector RxNorm: 876181 Microgram(s) SQ 5mcg twice daily x 1 month 03/04/2015 04/02/2015 Inactive Byetta 10 mcg/dose(250 mcg/mL)2.4 mL subcutaneous pen injector RxNorm: 408349 Microgram(s) SQ 10mcg twice daily ( start after 5mcg dose is complete) 03/04/2015 03/31/2015 Inactive Byetta 5 mcg/dose (250 mcg/mL)1.2 mL subcutaneous pen injector RxNorm: 917252 Microgram(s) SQ 5mcg twice daily x 1 month 03/04/2015 03/03/2015 Inactive Byetta 10 mcg/dose(250 mcg/mL)2.4 mL subcutaneous pen injector RxNorm: 298463 Microgram(s) SQ 10mcg twice daily ( start after 5mcg dose is complete) 03/04/2015 03/03/2015 Inactive cyanocobalamin (vit B-12) 1,000 mcg/mL injection solution RxNorm: 124222 Milliliter(s) Inj 02/23/2015 02/23/2015 Inactive cyanocobalamin (vit B-12) 1,000 mcg/mL injection solution RxNorm: 920648 Milliliter(s) Inj 01/08/2015 01/08/2015 Inactive simvastatin 20 mg tablet RxNorm: 031829 TAKE ONE TABLET BY MOUTH AT BEDTIME 01/07/2015 10/03/2015 Inactive Lortab 5 mg-500 mg tablet RxNorm: 364157 1-2 Tablet(s) PO Q4 PRN as needed q 4- 6hrs prn pain 12/15/2014 08/02/2015 Inactive Lortab 5 mg-500 mg tablet RxNorm: 891497 1-2 Tablet(s) PO Q4 PRN as needed q 4- 6hrs prn pain 12/15/2014 08/02/2015 Inactive amlodipine 5 mg tablet RxNorm: 193971 TAKE ONE TABLET BY MOUTH TWICE A DAY 12/14/2014 12/13/2014 Inactive amlodipine 5 mg tablet RxNorm: 090465 TAKE ONE TABLET BY MOUTH TWICE A DAY 12/14/2014 03/13/2015 Inactive cyanocobalamin (vit B-12) 1,000 mcg/mL injection solution RxNorm: 864832 Milliliter(s) Inj 12/08/2014 12/08/2014 Inactive Synthroid 50 mcg tablet RxNorm: 667361 TAKE ONE TABLET BY MOUTH EVERY DAY. 10/29/2014 04/26/2015 Inactive Lasix 20 mg tablet RxNorm: 467838 Tablet(s) TAKE ONE TABLET BY MOUTH EVERY DAY NEEDED FOR SWELLING. TAKE POTASSIUM WITH EACH DOSE 201405/25/2015 Inactive potassium chloride ER 20 mEq tablet,extended release(part/ cryst) RxNorm: 941697 Tablet(s) TAKE ONE TABLET BY MOUTH EVERY DAY WHEN YOU TAKE LASIX (FUROSEMIDE) 10/28/2014 05/25/2015 Inactive cyanocobalamin (vit B-12) 1,000 mcg/mL injection solution RxNorm: 210684 Milliliter(s) Inj 10/26/2014 10/26/2014 Inactive OneTouch Ultra Test strips RxNorm: TEST TWO TIMES A DAY 201405/10/2028 Active OneTouch Ultra Test strips RxNorm: 1 Miscellaneous BID 201410/21/2014 Inactive dx: 250.02 Victoza 2-J Luis 0.6 mg/0.1 mL (18 mg/3 mL) subcutaneous pen injector RxNorm: 920619 1.8 Milligram(s) SQ daily 09/24/201402/22 Inactive cyanocobalamin (vit B-12) 1,000 mcg/mL injection solution RxNorm: 968634 Milliliter(s) Inj 09/24/2014 09/24/2014 Inactive Tenex 1 mg tablet RxNorm: 136950 1 Tablet(s) PO daily TAKE ONE TABLET BY MOUTH EVERY DAY 09/24/2014 10/03/2015 Inactive Lopressor 100 mg tablet RxNorm: 437391 TAKE ONE TABLET BY MOUTH EVERY DAY 09/14/2014 06/10/2015 Inactive Lopressor 100 mg tablet RxNorm: 256082 1 Tablet(s) PO daily TAKE ONE TABLET BY MOUTH EVERY DAY 09/14/2014 09/13/2014 Inactive cyanocobalamin (vit B-12) 1,000 mcg/mL injection solution RxNorm: 190003 Milliliter(s) Inj 08/24/2014 08/24/2014 Inactive [SAVINGS FOR UNINSURED PATIENTS - - BIN:[id number], PCN: [id number], Group: [id number], ID# [id number], Process claim through [employer], for questions: . THIS IS NOT INSURANCE.] Victoza 2-J Luis 0.6 mg/0.1 mL (18 mg/3 mL) subcutaneous pen injector RxNorm: 056138 1.2 Milligram(s) SQ daily 08/05/201409/23 Inactive glipizide 10 mg tablet RxNorm: 266978 TAKE ONE TABLET BY MOUTH TWICE A DAY 07/28/2014 05/23/2015 Inactive Tenex 1 mg tablet RxNorm: 152507 TAKE ONE TABLET BY MOUTH EVERY DAY 07/02/2014 07/01/2014 Inactive Tenex 1 mg tablet RxNorm: 694176 TAKE ONE TABLET BY MOUTH EVERY DAY 07/02/2014 09/23/2014 Inactive spironolactone 25 mg tablet RxNorm: 441561 TAKE ONE TABLET BY MOUTH TWICE A DAY 07/02/2014 04/27/2015 Inactive spironolactone 25 mg tablet RxNorm: 571627 Tablet(s) PO TAKE ONE TABLET BY MOUTH TWICE A DAY 06/30/2014 07/01/2014 Inactive Tenex 1 mg tablet RxNorm: 618186 Tablet(s) PO TAKE ONE TABLET BY MOUTH EVERY DAY 06/30/2014 07/01/2014 Inactive Lortab 5 mg-500 mg tablet RxNorm: 956941 1-2 Tablet(s) PO Q4 PRN as needed q 4- 6hrs prn pain 06/22/2014 12/14/2014 Inactive metformin ER 500 mg tablet,extended release 24 hr RxNorm: 572517 Tablet(s) PO TAKE TWO TABLETS BY MOUTH TWICE A DAY 06/05/2014 06/13/2015 Inactive [SAVINGS FOR UNINSURED PATIENTS -- BIN:[id number], PCN: [id number], Group: [id number], ID# [id number], Process claim through [employer], for questions: . THIS IS NOT INSURANCE.] cyanocobalamin (vit B-12) 1,000 mcg/mL injection solution RxNorm: 824417 1 Milliliter(s) Inj monthly 06/01/201406/01 Inactive Kenalog 40 mg/mL suspension for injection RxNorm: 1228700 1 Milliliter(s) Inj 05/11/2014 05/11/2014 Inactive cyanocobalamin (vit B-12) 1,000 mcg/mL injection kit RxNorm: 706493 Milliliter(s) Inj 04/27/2014 04/27/2014 Inactive amlodipine 5 mg tablet RxNorm: 110598 TAKE ONE TABLET BY MOUTH TWICE A DAY 04/02/2014 07/30/2014 Inactive cyanocobalamin (vit B-12) 1,000 mcg/mL injection kit RxNorm: 862112 1 Milliliter(s ) Inj 03/24/2014 03/24/2014 Inactive [SAVINGS FOR UNINSURED PATIENTS -- BIN:[id number] , PCN: [id number], Group: [id number], ID# [id number], Process claim through [employer], for questions: . THIS IS NOT INSURANCE.] cyanocobalamin (vit B-12) 1,000 mcg/mL injection solution RxNorm: 683592 1 Milliliter(s) Inj 03/24/2014 03/24/2014 Inactive Synthroid 50 mcg tablet RxNorm: 051220 TAKE ONE TABLET BY MOUTH EVERY DAY. 03/01/2014 09/26/2014 Inactive Lasix 20 mg tablet RxNorm: 510686 TAKE ONE TABLET BY MOUTH EVERY DAY NEEDED FOR SWELLING. TAKE POTASSIUM WITH EACH DOSE 03/01/2014 09/26/2014 Inactive potassium chloride ER 20 mEq tablet,extended release(part/ cryst) RxNorm: 578191 TAKE ONE TABLET BY MOUTH EVERY DAY WHEN YOU TAKE LASIX (FUROSEMIDE) 03/01/2014 09/26/2014 Inactive cyanocobalamin (vit B-12) 1,000 mcg/mL injection solution RxNorm: 350265 1 Milliliter(s) Inj 02/24/2014 02/24/2014 Inactive Tricor 145 mg tablet RxNorm: 791827 TAKE ONE TABLET BY MOUTH EVERY DAY 02/16/2014 02/15/2014 Inactive Victoza 2-J Luis 0.6 mg/0.1 mL (18 mg/3 mL) subcutaneous pen injector RxNorm: 278082 1.2 Milligram(s) SQ daily 02/16/201408/04 Inactive Tricor 145 mg tablet RxNorm: 648877 TAKE ONE TABLET BY MOUTH EVERY DAY 02/16/2014 06/15/2014 Inactive Synthroid 50 mcg tablet RxNorm: 374578 TAKE ONE TABLET BY MOUTH EVERY DAY. 02/02/2014 03/03/2014 Inactive Synthroid 50 mcg tablet RxNorm: 329794 TAKE ONE TABLET BY MOUTH EVERY DAY. 02/02/2014 02/01/2014 Inactive simvastatin 20 mg tablet RxNorm: 895889 TAKE ONE TABLET BY MOUTH AT BEDTIME 01/12/2014 01/06/2015 Inactive cyanocobalamin (vit B-12) 1,000 mcg/mL injection solution RxNorm: 480091 Milliliter(s) Inj 01/09/2014 01/09/2014 Inactive Lortab 5 mg-500 mg tablet RxNorm: 515002 1-2 Tablet(s) PO Q4 PRN q 4-6hrs prn pain 12/23/2013 No Stop Date Active Lasix 20 mg tablet RxNorm: 919945 Tablet(s) PO TAKE ONE TABLET BY MOUTH EVERY DAY NEEDED FOR SWELLING. TAKE POTASSIUM WITH EACH DOSE 12/201302/28/2014 Inactive potassium chloride ER 20 mEq tablet,extended release(part/ cryst) RxNorm: 175595 Tablet(s) PO TAKE ONE TABLET BY MOUTH EVERY DAY WHEN YOU TAKE LASIX (FUROSEMIDE ) 12/02/2013 02/28/2014 Inactive Lomotil 2.5 mg-0.025 mg tablet RxNorm: 3337178 Tablet(s) PO TAKE ONE TABLET BY MOUTH EVERY 8 HOURS NEEDED 11/27/2013 01/28/2018 Inactive (Appended: Controlled substance eRx refill - RxReferenceNumber: [id number]) Lomotil 2.5 mg-0.025 mg tablet RxNorm: 2267096 1 Tablet(s) PO Q8 PRN 11/27/2013 05/24/2014 Inactive cyanocobalamin (vit B-12) 1,000 mcg/mL injection solution RxNorm: 384940 1 Milliliter(s) Inj 11/27/2013 11/27/2013 Inactive Vitamin B-12 1,000 mcg/mL injection solution RxNorm: 299373 1 Milliliter(s) Inj monthly 11/24/2013 11/18/2014 Inactive ok to give multidose if available Synthroid 50 mcg tablet RxNorm: 622017 Tablet(s) PO TAKE ONE TABLET BY MOUTH EVERY DAY. 10/31/2013 02/01/2014 Inactive simvastatin 20 mg tablet RxNorm: 467333 Tablet(s) PO TAKE ONE TABLET BY MOUTH AT BEDTIME 10/10/2013 01/11/2014 Inactive Vitamin B-12 1,000 mcg/mL injection solution RxNorm: 662961 1 Milliliter(s) Inj monthly 09/30/2013 09/29/2013 Inactive ok to give multidose if available Vitamin B-12 1,000 mcg/mL injection solution RxNorm: 653790 1 Milliliter(s) Inj monthly 09/30/2013 11/23/2013 Inactive ok to give multidose if available Vitamin B-12 1,000 mcg/mL injection solution RxNorm: 368491 1 Milliliter(s) Inj 09/18/2013 09/18/2013 Inactive Lopressor 100 mg tablet RxNorm: 811906 Tablet(s) PO TAKE ONE TABLET BY MOUTH EVERY DAY 09/15/2013 09/13/2014 Inactive Vitamin B-12 1,000 mcg/mL injection solution RxNorm: 088472 1 Milliliter(s) Inj 08/22/2013 08/22/2013 Inactive glipizide 10 mg tablet RxNorm: 523324 Tablet(s) PO TAKE ONE TABLET BY MOUTH TWICE A DAY 08/15/2013 07/27/2014 Inactive Tenex 1 mg tablet RxNorm: 067987 Tablet(s) PO TAKE ONE TABLET BY MOUTH EVERY DAY 08/05/2013 06/29/2014 Inactive potassium chloride ER 20 mEq tablet,extended release(part/ cryst) RxNorm: 814787 Tablet(s) PO TAKE ONE TABLET BY MOUTH EVERY DAY WHEN YOU TAKE LASIX (FUROSEMIDE ) 07/31/2013 12/01/2013 Inactive spironolactone 25 mg tablet RxNorm: 064280 Tablet(s) PO TAKE ONE TABLET BY MOUTH TWICE A DAY 07/31/2013 06/29/2014 Inactive Lasix 20 mg tablet RxNorm: 531875 Tablet(s) PO TAKE ONE TABLET BY MOUTH EVERY DAY NEEDED FOR SWELLING. TAKE POTASSIUM WITH EACH DOSE 08/201312/01/2013 Inactive Vitamin B-12 1,000 mcg/mL injection solution RxNorm: 181768 Milliliter(s) Inj 07/28/2013 07/28/2013 Inactive Synthroid 50 mcg tablet RxNorm: 775835 Tablet(s) PO TAKE ONE TABLET BY MOUTH EVERY DAY. PATIENT DUE FOR TSH LEVEL LAB 06/30/2013 06/29/2013 Inactive Synthroid 50 mcg tablet RxNorm: 103723 Tablet(s) PO TAKE ONE TABLET BY MOUTH EVERY DAY. PATIENT DUE FOR TSH LEVEL LAB 06/30/2013 10/30/2013 Inactive potassium chloride ER 20 mEq tablet,extended release(part/ cryst) RxNorm: 137828 Tablet(s) PO TAKE ONE TABLET BY MOUTH EVERY DAY WHEN YOU TAKE LASIX (FUROSEMIDE ) 06/23/2013 07/30/2013 Inactive Lasix 20 mg tablet RxNorm: 714435 Tablet(s) PO TAKE ONE TABLET BY MOUTH EVERY DAY NEEDED FOR SWELLING. TAKE POTASSIUM WITH EACH DOSE 07/30/2013 Inactive amlodipine 5 mg tablet RxNorm: 754609 Tablet(s) PO TAKE ONE TABLET BY MOUTH TWICE A DAY 06/17/2013 04/01/2014 Inactive metformin ER 500 mg tablet,extended release 24 hr RxNorm: 002253 Tablet(s) PO TAKE TWO TABLETS BY MOUTH TWICE A DAY 05/26/2013 06/04/2014 Inactive metformin ER 500 mg tablet,extended release 24 hr RxNorm: 462004 Tablet(s) PO TAKE TWO TABLETS BY MOUTH TWICE A DAY 05/26/2013 05/25/2013 Inactive Vitamin B-12 1,000 mcg/mL injection solution RxNorm: 553405 1 Milliliter(s) Inj 05/21/2013 05/21/2013 Inactive Vitamin B-12 1,000 mcg/mL Injection RxNorm: 467226 Milliliter(s) Inj 04/23/2013 04/23/2013 Inactive Influenza Virus Vaccine 0.5 mL RxNorm: IM 04/23/2013 04/23/2013 Inactive Synthroid 50 mcg tablet RxNorm: 606251 Tablet(s) PO TAKE ONE TABLET BY MOUTH EVERY DAY. PATIENT DUE FOR TSH LEVEL LAB 04/17/2013 06/29/2013 Inactive Lasix 20 mg tablet RxNorm: 997502 Tablet(s) PO TAKE ONE TABLET BY MOUTH EVERY DAY NEEDED FOR SWELLING. TAKE POTASSIUM WITH EACH DOSE 06/22/2013 Inactive potassium chloride ER 20 mEq tablet,extended release(part/ cryst) RxNorm: 3548617 Tablet(s) PO TAKE ONE TABLET BY MOUTH EVERY DAY WHEN YOU TAKE LASIX (FUROSEMIDE ) 04/17/2013 06/22/2013 Inactive simvastatin 20 mg tablet RxNorm: 121697 Tablet(s) PO TAKE ONE TABLET BY MOUTH AT BEDTIME 04/10/2013 10/09/2013 Inactive Vitamin B-12 1,000 mcg/mL Injection RxNorm: 795926 1 Milliliter(s) Inj 03/24/2013 03/24/2013 Inactive Lopressor 100 mg tablet RxNorm: 512192 Tablet(s) PO TAKE ONE TABLET BY MOUTH EVERY DAY 03/18/2013 09/14/2013 Inactive cyanocobalamin (vitamin B-12) 1,000 mcg/mL Injection RxNorm: 136608 Milliliter(s) Inj 02/20/2013 02/20/2013 Inactive Tricor 145 mg tablet RxNorm: 321190 Tablet(s) PO TAKE ONE TABLET BY MOUTH EVERY DAY 02/14/2013 02/15/2014 Inactive Vitamin B-12 1,000 mcg/mL Injection RxNorm: 677337 1 Milliliter(s) Inj 01/22/2013 01/22/2013 Inactive potassium chloride ER 20 mEq tablet,extended release(part/ cryst) RxNorm: 2216566 1 Tablet(s) PO QDAY PRN take when taking prn lasix 201204/16/2013 Inactive Lasix 20 mg tablet RxNorm: 760994 1 Tablet(s) PO QDAY PRN daily prn swelling - to take kcl with lasix 01/22/20132012 Inactive cyanocobalamin (vitamin B-12) 1,000 mcg/mL Injection RxNorm: 868921 Milliliter(s) Inj 12/19/2012 12/19/2012 Inactive cyanocobalamin (vitamin B-12) 1,000 mcg/mL Injection RxNorm: 169993 Milliliter(s) Inj 11/20/2012 11/20/2012 Inactive Diflucan 150 mg tablet RxNorm: 103447 1 Tablet(s) PO daily 11/21/2012 Inactive Synthroid 50 mcg tablet RxNorm: 857634 Tablet(s) PO TAKE ONE TABLET BY MOUTH EVERY DAY. PATIENT DUE FOR TSH LEVEL LAB 11/18/2012 04/16/2013 Inactive Keflex 500 mg capsule RxNorm: 013830 1 Capsule(s) PO TID 201211/19/2012 Inactive Keflex 500 mg capsule RxNorm: 476147 1 Capsule(s) PO TID 201211/12/2012 Inactive Byetta 10 mcg/0.04 mL per dose Sub-Q Pen Injector RxNorm: 400350 Pen Injector SQ DIAL AND INJECT SUBCUTANEOUSLY 10 MCG TWICE DAILY WITHIN 60 MINUTES BEFORE MORNING AND EVENING MEALS. DO NOT ADMINISTER AFTER A MEAL. 04/03/2014 Inactive cyanocobalamin (vitamin B-12) 1,000 mcg/mL Injection RxNorm: 561756 1 Milliliter(s ) Inj 10/23/2012 10/23/2012 Inactive Lortab 5 mg-500 mg tablet RxNorm: 420253 1-2 Tablet(s) PO Q4 PRN q 4-6hrs prn pain 10/02/2012 12/22/2013 Inactive cyanocobalamin (vitamin B-12) 1,000 mcg/mL Injection RxNorm: 995828 Milliliter(s) Inj 09/16/2012 09/16/2012 Inactive Vitamin B-12 1,000 mcg/mL Injection RxNorm: 154451 1 Milliliter(s) Inj 08/15/2012 08/15/2012 Inactive glipizide 10 mg tablet RxNorm: 131805 Tablet(s) PO TAKE ONE TABLET BY MOUTH TWICE A DAY 08/12/2012 08/14/2013 Inactive Tenex 1 mg tablet RxNorm: 821356 Tablet(s) PO TAKE ONE TABLET BY MOUTH EVERY DAY 08/12/2012 08/04/2013 Inactive Kenalog 40 mg/mL Susp for Injection RxNorm: 0560201 1 Milliliter(s) Inj 08/06/2012 01/22/2013 Inactive spironolactone 25 mg tablet RxNorm: 724792 Tablet(s) PO TAKE ONE TABLET BY MOUTH TWICE A DAY 07/29/2012 07/30/2013 Inactive cefdinir 300 mg capsule RxNorm: 327190 1 Capsule(s) PO BID 08/01/2012 Inactive cefdinir 300 mg capsule RxNorm: 564264 1 Capsule(s) PO BID 07/25/2012 Inactive Vitamin B-12 1,000 mcg/mL Injection RxNorm: 913072 1 Milliliter(s) Inj 07/19/2012 07/19/2012 Inactive simvastatin 20 mg tablet RxNorm: 763250 Tablet(s) PO TAKE ONE TABLET BY MOUTH AT BEDTIME 07/08/2012 04/09/2013 Inactive simvastatin 20 mg tablet RxNorm: 060922 Tablet(s) PO TAKE ONE TABLET BY MOUTH AT BEDTIME 07/08/2012 10/07/2015 Inactive Synthroid 50 mcg tablet RxNorm: 922468 1 Tablet(s) PO daily 12/201110/31/2012 Inactive Please advise patient due for TSH level. amlodipine 5 mg tablet RxNorm: 449383 1 Tablet(s) PO BID 201112/15/2012 Inactive amlodipine 5 mg tablet RxNorm: 332845 1 Tablet(s) PO BID 201106/18/2012 Inactive Vitamin B-12 1,000 mcg/mL Injection RxNorm: 625322 Milliliter(s) Inj 06/19/2012 06/19/2012 Inactive Lopressor 100 mg tablet RxNorm: 217377 Tablet(s) PO 06/17/2012 03/17/2013 Inactive TAKE ONE TABLET BY MOUTH EVERY DAY Vitamin B-12 1,000 mcg/mL Injection RxNorm: 943425 Milliliter(s) Inj 05/22/2012 05/22/2012 Inactive Synthroid 50 mcg tablet RxNorm: 039277 1 Tablet(s) PO daily 06/11/2012 Inactive Please advise patient due for TSH level. Diflucan 150 mg tablet RxNorm: 561036 1 Tablet(s) PO daily 11/18/2012 Inactive metformin ER 500 mg tablet,extended release 24 hr RxNorm: 253262 2 Tablet(s) PO BID 04/25/2012 05/19/2013 Inactive Vitamin B-12 1,000 mcg/mL Injection RxNorm: 831828 Milliliter(s) Inj 04/22/2012 04/22/2012 Inactive Vitamin B-12 1,000 mcg/mL Injection RxNorm: 583088 Milliliter(s) Inj 03/19/2012 03/19/2012 Inactive Vitamin B-12 1,000 mcg/mL Injection RxNorm: 042939 Milliliter(s) Inj 02/15/2012 02/15/2012 Inactive Tricor 145 mg tablet RxNorm: 311067 1 Tablet(s) PO daily 201102/13/2013 Inactive Vitamin B-12 1,000 mcg/mL Injection RxNorm: 981027 Milliliter(s) Inj 01/18/2012 01/18/2012 Inactive Kenalog 40 mg/mL Susp for Injection RxNorm: 1679567 1 Milliliter(s) Inj 12/28/2011 12/28/2011 Inactive Vitamin B-12 1,000 mcg/mL Injection RxNorm: 895768 Milliliter(s) Inj 12/20/2011 12/20/2011 Inactive omeprazole 20 mg Cap, delayed release RxNorm: 979770 1 Capsule(s) PO daily 12/07/2011 11/30/2012 Inactive may take bid if nec cyanocobalamin (vitamin B-12) 1,000 mcg/mL Injection RxNorm: 975171 1 Milliliter(s ) Inj 11/07/2011 11/07/2011 Inactive cyanocobalamin (vitamin B-12) 1,000 mcg/mL Injection RxNorm: 864747 1 Milliliter(s ) Inj 10/03/2011 10/03/2011 Inactive Synthroid 50 mcg tablet RxNorm: 467847 1 Tablet(s) PO daily 03/08/2012 Inactive Byetta 10 mcg/0.04 mL per dose Sub-Q Pen Injector RxNorm: 982132 10 Microgram(s) SQ BID 08/29/2011 09/21/2012 Inactive metformin ER 500 mg tablet,extended release 24 hr RxNorm: 528400 2 Tablet(s) PO BID 08/15/2011 02/10/2012 Inactive cyanocobalamin (vitamin B-12) 1,000 mcg/mL Injection RxNorm: 816051 1 Milliliter(s ) Inj 07/28/2011 07/28/2011 Inactive NovoFine 30 Needle RxNorm: 1 Miscellaneous BID 07/28/2011 03/18/2013 Inactive OneTouch Ultra Test strips RxNorm: 1 Miscellaneous BID 201003/18/2013 Inactive guanfacine 1 mg Tab RxNorm: 270231 1 Tablet(s) PO daily 201007/10/2012 Inactive glipizide 10 mg tablet RxNorm: 940679 1 Tablet(s) PO BID 201008/09/2012 Inactive Tenex 1 mg tablet RxNorm: 888972 1 Tablet(s) PO daily 201008/09/2012 Inactive lisinopril 20 mg tablet RxNorm: 338561 1 Tablet(s) PO daily pt 07/04/2011 04/21/2012 Inactive pt may have #90 with year if insurance pays spironolactone 25 mg tablet RxNorm: 497861 1 Tablet(s) PO BID 07/03/2011 07/26/2012 Inactive simvastatin 20 mg Tab RxNorm: 031167 1 Tablet(s) PO QHS 201006/28/2011 Inactive cyanocobalamin (vitamin B-12) 1,000 mcg/mL Injection RxNorm: 891642 Milliliter(s) Inj 06/29/2011 06/29/2011 Inactive simvastatin 20 mg tablet RxNorm: 223016 1 Tablet(s) PO QHS 07/201006/22/2012 Inactive Lopressor 100 mg tablet RxNorm: 916330 1 Tablet(s) PO daily 06/16/2012 Inactive ketorolac 60 mg/2 mL IM RxNorm: 176760 Milliliter(s) IM 201005/23/2011 Inactive cyanocobalamin (vitamin B-12) 1,000 mcg/mL Injection RxNorm: 728970 Milliliter(s) Inj 05/23/2011 05/23/2011 Inactive Influenza Virus Vaccine 0.5 mL RxNorm: IM 04/26/2011 04/26/2011 Inactive Vitamin B-12 1,000 mcg/mL Injection RxNorm: 923504 Milliliter(s) Inj 04/26/2011 04/26/2011 Inactive Lomotil 2.5 mg-0.025 mg tablet RxNorm: 0744188 1 Tablet(s) PO Q8 PRN 04/26/2011 11/27/2013 Inactive hydralazine 10 mg tablet RxNorm: 714053 1 Tablet(s) PO TID No Start Date Active atorvastatin 10 mg tablet RxNorm: 405103 1 Tablet(s) PO QHS No Start Date Active Toujeo Max U-300 SoloStar 300 unit/mL (3 mL) subcutaneous insulin pen RxNorm: 8594092 10 Unit(s) SQ QHS increase by 4 units every 3 days until BS under 150 No Start Date Active multivitamin tablet RxNorm: 1 Tablet(s) PO daily No Start Date Active clopidogrel 75 mg tablet RxNorm: 885585 1 Tablet(s) PO daily No Start Date Active Tricor 145 mg Tab RxNorm: 482651 1 Tablet(s) PO daily No Start Date 02/07/2012 Inactive amiodarone 200 mg tablet RxNorm: 352561 1 Tablet(s) PO daily No Start Date 01/28/2018 Inactive Synthroid 50 mcg Tab RxNorm: 621665 1 Tablet(s) PO daily No Start Date 09/10/2011 Inactive lisinopril 20 mg tablet RxNorm: 720609 1 Tablet(s) PO daily No Start Date 06/18/2012 Inactive Lortab 5 mg-500 mg tablet RxNorm: 357394 1 Tablet(s) PO Q4 PRN q 4hrs prn pain No Start Date 10/01/2012 Inactive Tenex 1 mg Tab RxNorm : 803130 1 Tablet(s) PO daily No Start Date 07/16/2011 Inactive lisinopril 40 mg tablet RxNorm: 424548 Tablet(s) PO No Start Date 05/21/2012 Inactive Voltaren 1 % Topical Gel RxNorm: 494036 TOP as directed No Start Date 11/29/2015 Inactive iron 325 mg (65 mg iron) Tab RxNorm: 828556 1 Tablet(s) PO daily No Start Date 02/22/2015 Inactive Zithromax Z-J Luis 250 mg tablet RxNorm: 017685 Tablet(s) PO UD No Start Date 01/22/2013 Inactive Byetta 10 mcg/0.04 mL per dose Sub-Q Pen Injector RxNorm: 565934 Milliliter(s) SQ BID No Start Date 08/28/2011 Inactive Mouth Sore oral RxNorm : 1399 mucous membrane No Start Date 01/28/2018 Inactive cyanocobalamin (vitamin B-12) 1,000 mcg/mL Injection RxNorm: 620084 1 Milliliter(s ) Inj month No Start Date 11/30/2015 Inactive Tessalon 200 mg capsule RxNorm: 903879 1 Capsule(s) PO TID PRN No Start Date 01/21/2013 Inactive metoprolol succinate ER 100 mg tablet,extended release 24 hr RxNorm: 358577 1 Tablet(s) PO daily No Start Date 2017 Inactive Victoza 2-J Luis 0.6 mg/0.1 mL (18 mg/3 mL) subcutaneous pen injector RxNorm: 892458 1.2 Milligram(s) SQ daily No Start Date Inactive simvastatin 20 mg Tab RxNorm: 158954 1 Tablet(s) PO QHS No Start Date 06/28/2011 Inactive spironolactone 25 mg Tab RxNorm: 324731 1 Tablet(s) PO BID No Start Date 07/02/2011 Inactive Diflucan 150 mg tablet RxNorm: 216959 1 Tablet(s) PO daily No Start Date 04/24/2012 Inactive guanfacine 1 mg Tab RxNorm: 742659 1 Tablet(s) PO daily No Start Date 07/16/2011 Inactive Ativan 1 mg Tab RxNorm : 660576 1/2-1 Tablet(s) PO Q6 PRN 1/2 - 1 tab q 6 hours if needed for anxiety No Start Date 2013 Inactive metformin ER 500 mg 24 hr Tab RxNorm: 197238 2 Tablet(s) PO BID No Start Date 08/14/2011 Inactive warfarin 2 mg tablet RxNorm: 712669 1 Tablet(s) PO daily No Start Date 01/28/2018 Inactive Lopressor 100 mg Tab RxNorm: 330069 1 Tablet(s) PO daily No Start Date 06/26/2011 Inactive glipizide 10 mg Tab RxNorm: 721177 1 Tablet(s) PO BID No Start Date 07/16/2011 Inactive KCL 10 meq RxNorm: PO as directed daily when taking lasix No Start Date 01/22/2013 Inactive lisinopril 20 mg Tab RxNorm: 482801 1 Tablet(s) PO daily No Start Date 07/03/2011 Inactive One Touch Ultra Test Strips RxNorm: 1 Miscellaneous BID No Start Date 07/27/2011 Inactive aspirin 81 mg Tab, Delayed Release RxNorm: 737763 1 Tablet(s) PO daily No Start Date 01/28/2018 Inactive omeprazole 20 mg Cap, delayed release RxNorm: 268329 1 Capsule(s) PO BID No Start Date 12/06/2011 Inactive Lasix 20 mg tablet RxNorm: 425955 Tablet(s) PO as directed daily prn swelling - to take kcl with lasix No Start Date 01/21 Inactive Vitamin D 1,000 unit Tab RxNorm: 069215 1 Tablet(s) PO daily No Start Date 01/28/2018 Inactive niacin 500 mg Tab RxNorm: 228218 1 Tablet(s) PO QHS No Start Date 04/03/2014 Inactive Medication Administered Medication Codes Instructions Start Date Status Kenalog 40 mg/mL suspension for injection RxNorm: 0021340 1Milliliter 05/29/2018 No longer Active cyanocobalamin (vit B-12) 1,000 mcg/mL injection solution RxNorm: 846160 1Milliliter 05/07/2018 No longer Active cyanocobalamin (vit B-12) 1,000 mcg/mL injection solution RxNorm: 922335 Milliliter 04/04/2018 No longer Active cyanocobalamin (vit B-12) 1,000 mcg/mL injection solution RxNorm: 317034 1Milliliter 03/04/2018 No longer Active cyanocobalamin (vit B-12) 1,000 mcg/mL injection solution RxNorm: 191393 1Milliliter 01/29/2018 No longer Active cyanocobalamin (vit B-12) 1,000 mcg/mL injection solution RxNorm: 594880 Milliliter 12/18/2017 No longer Active cyanocobalamin (vit B-12) 1,000 mcg/mL injection solution RxNorm: 083388 1Milliliter 11/20/2017 No longer Active cyanocobalamin (vit B-12) 1,000 mcg/mL injection solution RxNorm: 053433 1Milliliter 08/21/2017 No longer Active cyanocobalamin (vit B-12) 1,000 mcg/mL injection solution RxNorm: 008334 1Milliliter 07/18/2017 No longer Active cyanocobalamin (vit B-12) 1,000 mcg/mL injection solution RxNorm: 998066 1Milliliter 06/18/2017 No longer Active Kenalog 40 mg/mL suspension for injection RxNorm: 5880371 1Milliliter 06/18/2017 No longer Active cyanocobalamin (vit B-12) 1,000 mcg/mL injection solution RxNorm: 636446 1Milliliter 05/09/2017 No longer Active cyanocobalamin (vit B-12) 1,000 mcg/mL injection solution RxNorm: 582467 1Milliliter 04/04/2017 No longer Active Kenalog 40 mg/mL suspension for injection RxNorm: 4456020 1Milliliter 02/23/2017 No longer Active cyanocobalamin (vit B-12) 1,000 mcg/mL injection solution RxNorm: 758128 Milliliter 01/23/2017 No longer Active cyanocobalamin (vit B-12) 1,000 mcg/mL injection solution RxNorm: 534082 1Milliliter 11/14/2016 No longer Active Kenalog 40 mg/mL suspension for injection RxNorm: 3850890 1Milliliter 09/07/2016 No longer Active cyanocobalamin (vit B-12) 1,000 mcg/mL injection solution RxNorm: 768004 1Milliliter 08/29/2016 No longer Active cyanocobalamin (vit B-12) 1,000 mcg/mL injection solution RxNorm: 765146 Milliliter 06/12/2016 No longer Active ceftriaxone 500 mg solution for injection RxNorm: 1933168 2Milliliter 05/04/2016 No longer Active cyanocobalamin (vit B-12) 1,000 mcg/mL injection solution RxNorm: 763192 Milliliter 05/04/2016 No longer Active cyanocobalamin (vit B-12) 1,000 mcg/mL injection solution RxNorm: 763741 Milliliter 03/17/2016 No longer Active cyanocobalamin (vit B-12) 1,000 mcg/mL injection solution RxNorm: 195752 1Milliliter 02/15/2016 No longer Active cyanocobalamin (vit B-12) 1,000 mcg/mL injection solution RxNorm: 246925 Milliliter 01/19/2016 No longer Active cyanocobalamin (vit B-12) 1,000 mcg/mL injection solution RxNorm: 573788 1Milliliter 12/07/2015 No longer Active cyanocobalamin (vit B-12) 1,000 mcg/mL injection kit RxNorm : 785618 kit 09/06/2015 No longer Active ceftriaxone 500 mg solution for injection RxNorm: 5986258 09/06/2015 No longer Active ceftriaxone 500 mg solution for injection RxNorm: 2346738 07/05/2015 No longer Active Kenalog 40 mg/mL suspension for injection RxNorm: 6924496 Milliliter 07/05/2015 No longer Active cyanocobalamin (vit B-12) 1,000 mcg/mL injection solution RxNorm: 817927 Milliliter 06/28/2015 No longer Active cyanocobalamin (vit B-12) 1,000 mcg/mL injection solution RxNorm: 529391 Milliliter 05/13/2015 No longer Active cyanocobalamin (vit B-12) 1,000 mcg/mL injection solution RxNorm: 133485 Milliliter 02/23/2015 No longer Active cyanocobalamin (vit B-12) 1,000 mcg/mL injection solution RxNorm: 486296 Milliliter 01/08/2015 No longer Active cyanocobalamin (vit B-12) 1,000 mcg/mL injection solution RxNorm: 169607 Milliliter 12/08/2014 No longer Active cyanocobalamin (vit B-12) 1,000 mcg/mL injection solution RxNorm: 981362 Milliliter 10/26/2014 No longer Active cyanocobalamin (vit B-12) 1,000 mcg/mL injection solution RxNorm: 728853 Milliliter 09/24/2014 No longer Active cyanocobalamin (vit B-12) 1,000 mcg/mL injection solution RxNorm: 353756 Milliliter 08/24/2014 No longer Active cyanocobalamin (vit B-12) 1,000 mcg/mL injection solution RxNorm: 460923 1Milliliter 06/01/2014 No longer Active Kenalog 40 mg/mL suspension for injection RxNorm: 2510816 1Milliliter 05/11/2014 No longer Active cyanocobalamin (vit B-12) 1,000 mcg/mL injection kit RxNorm : 592696 Milliliter 04/27/2014 No longer Active cyanocobalamin (vit B-12) 1,000 mcg/mL injection kit RxNorm : 143174 1Milliliter 03/24/2014 No longer Active cyanocobalamin (vit B-12) 1,000 mcg/mL injection solution RxNorm: 698840 1Milliliter 03/24/2014 No longer Active cyanocobalamin (vit B-12) 1,000 mcg/mL injection solution RxNorm: 173079 1Milliliter 02/24/2014 No longer Active cyanocobalamin (vit B-12) 1,000 mcg/mL injection solution RxNorm: 114159 Milliliter 01/09/2014 No longer Active cyanocobalamin (vit B-12) 1,000 mcg/mL injection solution RxNorm: 259826 1Milliliter 11/27/2013 No longer Active Vitamin B-12 1,000 mcg/mL injection solution RxNorm: 313579 1Milliliter 09/18/2013 No longer Active Vitamin B-12 1,000 mcg/mL injection solution RxNorm: 536595 1Milliliter 08/22/2013 No longer Active Vitamin B-12 1,000 mcg/mL injection solution RxNorm: 340770 Milliliter 07/28/2013 No longer Active Vitamin B-12 1,000 mcg/mL injection solution RxNorm: 429302 1Milliliter 05/21/2013 No longer Active Influenza Virus Vaccine 0.5 mL RxNorm: 04/23/2013 No longer Active Vitamin B-12 1,000 mcg/mL Injection RxNorm: 766171 Milliliter 04/23/2013 No longer Active Vitamin B-12 1,000 mcg/mL Injection RxNorm: 339782 1Milliliter 03/24/2013 No longer Active cyanocobalamin (vitamin B-12) 1,000 mcg/mL Injection RxNorm : 147775 Milliliter 02/20/2013 No longer Active Vitamin B-12 1,000 mcg/mL Injection RxNorm: 123204 1Milliliter 01/22/2013 No longer Active cyanocobalamin (vitamin B-12) 1,000 mcg/mL Injection RxNorm : 284109 Milliliter 12/19/2012 No longer Active cyanocobalamin (vitamin B-12) 1,000 mcg/mL Injection RxNorm : 276389 Milliliter 11/20/2012 No longer Active cyanocobalamin (vitamin B-12) 1,000 mcg/mL Injection RxNorm : 898427 1Milliliter 10/23/2012 No longer Active cyanocobalamin (vitamin B-12) 1,000 mcg/mL Injection RxNorm : 680574 Milliliter 09/16/2012 No longer Active Vitamin B-12 1,000 mcg/mL Injection RxNorm: 204940 1Milliliter 08/15/2012 No longer Active Vitamin B-12 1,000 mcg/mL Injection RxNorm: 724063 1Milliliter 07/19/2012 No longer Active Vitamin B-12 1,000 mcg/mL Injection RxNorm: 206282 Milliliter 06/19/2012 No longer Active Vitamin B-12 1,000 mcg/mL Injection RxNorm: 273978 Milliliter 05/22/2012 No longer Active Vitamin B-12 1,000 mcg/mL Injection RxNorm: 185066 Milliliter 04/22/2012 No longer Active Vitamin B-12 1,000 mcg/mL Injection RxNorm: 967635 Milliliter 03/19/2012 No longer Active Vitamin B-12 1,000 mcg/mL Injection RxNorm: 859259 Milliliter 02/15/2012 No longer Active Vitamin B-12 1,000 mcg/mL Injection RxNorm: 707089 Milliliter 01/18/2012 No longer Active Kenalog 40 mg/mL Susp for Injection RxNorm: 7418857 1Milliliter 12/28/2011 No longer Active Vitamin B-12 1,000 mcg/mL Injection RxNorm: 596058 Milliliter 12/20/2011 No longer Active cyanocobalamin (vitamin B-12) 1,000 mcg/mL Injection RxNorm : 187247 1Milliliter 11/07/2011 No longer Active cyanocobalamin (vitamin B-12) 1,000 mcg/mL Injection RxNorm : 929397 1Milliliter 10/03/2011 No longer Active cyanocobalamin (vitamin B-12) 1,000 mcg/mL Injection RxNorm : 857889 1Milliliter 07/28/2011 No longer Active cyanocobalamin (vitamin B-12) 1,000 mcg/mL Injection RxNorm : 525224 Milliliter 06/29/2011 No longer Active cyanocobalamin (vitamin B-12) 1,000 mcg/mL Injection RxNorm : 114066 Milliliter 05/23/2011 No longer Active ketorolac 60 mg/2 mL IM RxNorm: 426870 Milliliter 05/23/2011 No longer Active Influenza Virus Vaccine 0.5 mL RxNorm: 04/26/2011 No longer Active Vitamin B-12 1,000 mcg/mL Injection RxNorm: 421283 Milliliter 04/26/2011 No longer Active Immunizations Vaccine [...] mellitus with hyperglycemia ICD-10: E11.65 ICD-9: 250.02 08/05/2018 Chronic kidney disease, stage 3 (moderate) ICD-10: [...] For Visit Effective Dates Notes diabetes mellitus 08/05/2018 back pain 05/29/2018 diabetes [...] 28.4 pg 06/07/2017 Cbc With Differential Ord2 [place]% 12.6 % 06/07/2017 Cbc With Differential Ord2 MCHC 32.6 pg 06/07/2017 Cbc With Differential Ord2 Eos% 3.8 % 06/07/2017 Cbc With Differential Ord2 PLT 167 K/ul 06/07/2017 Cbc With Differential Ord2 Baso% 0.4 % 06/07/2017 Cbc With Differential Ord2 Neut ABS# 3.14 K/ul 06/07/2017 Cbc With Differential Ord2 RDW 14.9 % 06/07/2017 Cbc With Differential Ord2 Lymph ABS# 1.23 K/ul 06/07/2017 Cbc With Differential Ord2 [place] ABS# 0.7 K/ul 06/07/2017 Cbc With Differential Ord2 Eos ABS# 0.2 K/ul 06/07/2017 Cbc With Differential Ord2 Baso ABS# 0.0 K/ul 06/07/2017 Culture Urine [id number] URINE CULTURE SEE NOTES 05/08/2016 Culture Urine [id number] Continued Results 05/08/2016 Urine Culture Ucult Complete >100,000 col/ml aerobic growth sent to ref lab 05/05/2016 IRON TEST [id number] IRON TEST 44 UG/DL 07/28/2013 TSH [id number] TSH 2.104 uIU/ML 07/28/2013 CBC [id number] WBC 6.2 10e9/L 07/28/2013 CBC [id number] RBC 3.95 10e12/L 07/28/2013 CBC [id number] HGB 11.2 g/dL 07/28/2013 CBC [id number] HCT DET 34.2 % 07/28/2013 CBC [id number] MCV 86.6 fL 07/28/2013 CBC [id number] MCH 28.4 pg 07/28/2013 CBC [id number] MCHC 32.7 g/dL 07/28/2013 CBC [id number] PLT 231 10e9/L 07/28/2013 CBC [id number] MPV 10.9 fL 07/28/2013 CBC [id number] JAZMYN % 61.0 % 07/28/2013 CBC [id number] LY % 27.8 % 07/28/2013 CBC [id number] MON % 8.0 % 07/28/2013 CBC [id number] EOS % 2.4 % 07/28/2013 CBC [id number] BASO % 0.8 % 07/28/2013 CBC [id number] RDW 14.0 % 07/28/2013 CBC [id number] ABS JAZMYN 3.78 10e9/L 07/28/2013 CBC [id number] ABS LYMPH 1.72 10e9/L 07/28/2013 CBC [id number] ABS MONO 0.50 10e9/L 07/28/2013 CBC [id number] ABS EOS 0.15 10e9/L 07/28/2013 CBC [id number] ABS BASO 0.05 10e9/L 07/28/2013 CBC [id number] RDW-SD 42.9 fL 07/28/2013 %SAT/TIBC 5533511 TIBC 439 UG/DL 07/28/2013 %SAT/TIBC 1185499 % SATURAT 10 % 07/28/2013 %SAT/TIBC 6150537 UIBC 395 MCG/DL 07/28/2013 Review of Systems System Result Effective Dates Constitutional No recent illness 2018 Constitutional No [...] clear 05/07/2018 None Full Exam - General 1995 Ears/Nose/Throat oral cavity/pharynx/larynx Overall: no masses 05/07/2018 [...] bilaterally 05/22/2012 None Full Exam - General 1995 Respiratory respiratory effort/rhythm Overall: no retractions 05/22/2012 [...] Procedure Codes Date THER/PROPH/DIAG INJ SC/IM CPT-4: 11892 08/05/2018 VITAMIN B12 INJECTION CPT-4: J3420 08/05/2018 DRAIN/INJECT JOINT/BURSA CPT-4: 56768 05/29/2018 TRIAMCINOLONE ACET INJ NOS CPT-4: J3301 05/29/2018 THER/PROPH/DIAG INJ SC/IM CPT-4: 50378 05/07/2018 VITAMIN B12 INJECTION CPT-4: J3420 05/07/2018 FLU VAC NO PRSV 4 JINNY 3 YRS+ CPT-4: 37281 04/04/2018 ADMIN INFLUENZA VIRUS VAC CPT-4: G0008 04/04/2018 THER/PROPH/DIAG INJ SC/IM CPT-4: 09335 04/04/2018 VITAMIN B12 INJECTION CPT-4: J3420 04/04/2018 THER/PROPH/DIAG INJ SC/IM CPT-4: 37247 03/04/2018 VITAMIN B12 INJECTION CPT-4: J3420 03/04/2018 PPPS, SUBSEQ VISIT CPT -4: G0439 01/29/2018 ADMIN PNEUMOCOCCAL VACCINE SNOMED CT: 82201021 CPT-4: G0009 01/29/2018 PNEUMOCOCCAL VACC [address]: 55179725 CPT-4: 62387 01/29/2018 THER/PROPH/DIAG INJ SC/IM CPT-4: 98249 01/29/2018 VITAMIN B12 INJECTION CPT-4: J3420 01/29/2018 PRESCRIP TRANSMIT VIA ERX SY CPT-4: G8553 01/01/2018 PRESCRIP TRANSMIT VIA ERX SY CPT-4: G8553 12/27/2017 THER/PROPH/DIAG INJ SC/IM CPT-4: 31281 12/18/2017 VITAMIN B12 INJECTION CPT-4: J3420 12/18/2017 PRESCRIP TRANSMIT VIA ERX SY CPT-4: G8553 12/18/2017 THER/PROPH/DIAG INJ SC/IM CPT-4: 22274 11/20/2017 VITAMIN B12 INJECTION CPT-4: J3420 11/20/2017 THER/PROPH/DIAG INJ SC/IM CPT-4: 66737 08/21/2017 VITAMIN B12 INJECTION CPT-4: J3420 08/21/2017 THER/PROPH/DIAG INJ SC/IM CPT-4: 69617 07/18/2017 VITAMIN B12 INJECTION CPT-4: J3420 07/18/2017 TRIAMCINOLONE ACET INJ NOS CPT-4: J3301 06/18/2017 THER/PROPH/DIAG INJ SC/IM CPT-4: 88242 06/18/2017 VITAMIN B12 INJECTION CPT-4: J3420 06/18/2017 PRESCRIP TRANSMIT VIA ERX SY CPT-4: G8553 06/18/2017 THER/PROPH/DIAG INJ SC/IM CPT-4: 74226 05/09/2017 VITAMIN B12 INJECTION CPT-4: J3420 05/09/2017 ADMIN INFLUENZA VIRUS VAC CPT-4: G0008 04/25/2017 FLU VAC NO PRSV 4 JINNY 3 YRS+ CPT-4: 25711 04/25/2017 THER/PROPH/DIAG INJ SC/IM CPT-4: 01823 04/04/2017 VITAMIN B12 INJECTION CPT-4: J3420 04/04/2017 TRIAMCINOLONE ACET INJ NOS CPT-4: J3301 02/23/2017 VITAMIN B12 INJECTION CPT-4: J3420 02/23/2017 THER/PROPH/DIAG INJ SC/IM CPT-4: 86856 01/23/2017 VITAMIN B12 INJECTION CPT-4: J3420 01/23/2017 VITAMIN B12 INJECTION CPT-4: J3420 12/26/2016 THER/PROPH/DIAG INJ SC/IM CPT-4: 40251 12/26/2016 THER/PROPH/DIAG INJ SC/IM CPT-4: 66991 11/14/2016 VITAMIN B12 INJECTION CPT-4: J3420 11/14/2016 THER/PROPH/DIAG INJ SC/IM CPT-4: 40023 09/07/2016 TRIAMCINOLONE ACET INJ NOS CPT-4: J3301 09/07/2016 PRESCRIP TRANSMIT VIA ERX SY CPT-4: G8553 09/07/2016 THER/PROPH/DIAG INJ SC/IM CPT-4: 17200 08/29/2016 VITAMIN B12 INJECTION CPT-4: J3420 08/29/2016 PRESCRIP TRANSMIT VIA ERX SY CPT-4: G8553 08/29/2016 THER/PROPH/DIAG INJ SC/IM CPT-4: 05692 06/12/2016 VITAMIN B12 INJECTION CPT-4: J3420 06/12/2016 PRESCRIP TRANSMIT VIA ERX SY CPT-4: G8553 06/12/2016 URINALYSIS NONAUTO W/O SCOPE CPT-4: 16974 05/04/2016 ROCEPHIN, PER 250 MG CPT-4: J0696 05/04/2016 THER/PROPH/DIAG INJ SC/IM CPT-4: 52130 05/04/2016 VITAMIN B12 INJECTION CPT-4: J3420 05/04/2016 PRESCRIP TRANSMIT VIA ERX SY CPT-4: G8553 05/04/2016 PRESCRIP TRANSMIT VIA ERX SY CPT-4: G8553 03/30/2016 THER/PROPH/DIAG INJ SC/IM CPT-4: 02905 03/17/2016 VITAMIN B12 INJECTION CPT-4: J3420 03/17/2016 THER/PROPH/DIAG INJ SC/IM CPT-4: 54985 02/15/2016 VITAMIN B12 INJECTION CPT-4: J3420 02/15/2016 THER/PROPH/DIAG INJ SC/IM CPT-4: 87141 01/19/2016 VITAMIN B12 INJECTION CPT-4: J3420 01/19/2016 THER/PROPH/DIAG INJ SC/IM CPT-4: 41561 12/07/2015 VITAMIN B12 INJECTION CPT-4: J3420 12/07/2015 ROCEPHIN, PER 250 MG CPT-4: J0696 09/06/2015 THER/PROPH/DIAG INJ SC/IM CPT-4: 42252 09/06/2015 VITAMIN B12 INJECTION CPT-4: J3420 09/06/2015 PRESCRIP TRANSMIT VIA ERX SY CPT-4: G8553 09/06/2015 ROCEPHIN, PER 250 MG CPT-4: J0696 07/05/2015 TRIAMCINOLONE ACET INJ NOS CPT-4: J3301 07/05/2015 PRESCRIP TRANSMIT VIA ERX SY CPT-4: G8553 07/05/2015 THER/PROPH/DIAG INJ SC/IM CPT-4: 21535 06/28/2015 VITAMIN B12 INJECTION CPT-4: J3420 06/28/2015 THER/PROPH/DIAG INJ SC/IM CPT-4: 64946 05/13/2015 VITAMIN B12 INJECTION CPT-4: J3420 05/13/2015 THER/PROPH/DIAG INJ SC/IM CPT-4: 06506 02/23/2015 VITAMIN B12 INJECTION CPT-4: J3420 02/23/2015 THER/PROPH/DIAG INJ SC/IM CPT-4: 50124 01/08/2015 VITAMIN B12 INJECTION CPT-4: J3420 01/08/2015 THER/PROPH/DIAG INJ SC/IM CPT-4: 58374 12/08/2014 VITAMIN B12 INJECTION CPT-4: J3420 12/08/2014 THER/PROPH/DIAG INJ SC/IM CPT-4: 11388 10/26/2014 VITAMIN B12 INJECTION CPT-4: J3420 10/26/2014 VITAMIN B12 INJECTION CPT-4: J3420 09/24/2014 THER/PROPH/DIAG INJ SC/IM CPT-4: 54787 09/24/2014 THER/PROPH/DIAG INJ SC/IM CPT-4: 24087 08/24/2014 VITAMIN B12 INJECTION CPT-4: J3420 08/24/2014 THER/PROPH/DIAG INJ SC/IM CPT-4: 00323 07/08/2014 VITAMIN B12 INJECTION CPT-4: J3420 07/08/2014 THER/PROPH/DIAG INJ SC/IM CPT-4: 39823 06/01/2014 VITAMIN B12 INJECTION CPT-4: J3420 06/01/2014 TRIAMCINOLONE ACET INJ NOS CPT-4: J3301 05/11/2014 VITAMIN B12 INJECTION CPT-4: J3420 04/27/2014 THER/PROPH/DIAG INJ SC/IM CPT-4: 93878 04/27/2014 FLU VAC NO PRSV 4 JINNY 3 YRS+ CPT-4: 92368 04/03/2014 ADMIN INFLUENZA VIRUS VAC Assigned to/Juliana Graham CPT-4: [id number] 04/03/2014 THER/PROPH/DIAG INJ SC/IM CPT-4: 19125 03/24/2014 THER/PROPH/DIAG INJ SC/IM CPT-4: 27846 02/24/2014 THER/PROPH/DIAG INJ SC/IM CPT-4: 54835 01/09/2014 THER/PROPH/DIAG INJ SC/IM CPT-4: 72409 11/27/2013 THER/PROPH/DIAG INJ SC/IM CPT-4: 23415 09/18/2013 VITAMIN B12 INJECTION CPT-4: J3420 09/18/2013 THER/PROPH/DIAG INJ SC/IM CPT-4: 47823 08/22/2013 VITAMIN B12 INJECTION CPT-4: J3420 08/22/2013 ROUTINE VENIPUNCTURE CPT-4: 65131 07/28/2013 VITAMIN B12 INJECTION CPT-4: J3420 07/28/2013 THER/PROPH/DIAG INJ SC/IM CPT-4: 46990 07/28/2013 THER/PROPH/DIAG INJ SC/IM CPT-4: 85164 06/16/2013 VITAMIN B12 INJECTION CPT-4: J3420 06/16/2013 THER/PROPH/DIAG INJ SC/IM CPT-4: 60202 05/21/2013 VITAMIN B12 INJECTION CPT-4: J3420 05/21/2013 ADMIN INFLUENZA VIRUS VAC CPT-4: G0008 04/23/2013 FLULAVAL VACC, 3 YRS & >, IM CPT-4: Q2036 04/23/2013 VITAMIN B12 INJECTION CPT-4: J3420 04/23/2013 THER/PROPH/DIAG INJ SC/IM CPT-4: 05205 04/23/2013 THER/PROPH/DIAG INJ SC/IM CPT-4: 33025 03/24/2013 VITAMIN B12 INJECTION CPT-4: J3420 03/24/2013 THER/PROPH/DIAG INJ SC/IM CPT-4: 74926 02/20/2013 VITAMIN B12 INJECTION CPT-4: J3420 02/20/2013 VITAMIN B12 INJECTION CPT-4: J3420 01/22/2013 PRESCRIP TRANSMIT VIA ERX SY CPT-4: G8553 01/22/2013 TRIAMCINOLONE ACET INJ NOS CPT-4: J3301 12/19/2012 VITAMIN B12 INJECTION CPT-4: J3420 12/19/2012 THER/PROPH/DIAG INJ SC/IM CPT-4: 00057 11/20/2012 VITAMIN B12 INJECTION CPT-4: J3420 11/20/2012 THER/PROPH/DIAG INJ SC/IM CPT-4: 57051 10/23/2012 VITAMIN B12 INJECTION CPT-4: J3420 10/23/2012 THER/PROPH/DIAG INJ SC/IM CPT-4: 51849 09/16/2012 VITAMIN B12 INJECTION CPT-4: J3420 09/16/2012 VITAMIN B12 INJECTION CPT-4: J3420 08/15/2012 THER/PROPH/DIAG INJ SC/IM CPT-4: 04318 08/15/2012 TRIAMCINOLONE ACET INJ NOS CPT-4: J3301 08/06/2012 THER/PROPH/DIAG INJ SC/IM CPT-4: 20293 08/06/2012 PRESCRIP TRANSMIT VIA ERX SY CPT-4: G8553 08/06/2012 VITAMIN B12 INJECTION CPT-4: J3420 07/19/2012 THER/PROPH/DIAG INJ SC/IM CPT-4: 24813 07/19/2012 DRAIN/INJECT JOINT/BURSA CPT-4: 17353 07/10/2012 THER/PROPH/DIAG INJ SC/IM CPT-4: 25467 06/19/2012 VITAMIN B12 INJECTION CPT-4: J3420 06/19/2012 VITAMIN B12 INJECTION CPT-4: J3420 05/22/2012 THER/PROPH/DIAG INJ SC/IM CPT-4: 42459 05/22/2012 ADMIN INFLUENZA VIRUS VAC CPT-4: G0008 04/22/2012 FLULAVAL VACC, 3 YRS & >, IM CPT-4: Q2036 04/22/2012 VITAMIN B12 INJECTION CPT-4: J3420 04/22/2012 VITAMIN B12 INJECTION CPT-4: J3420 03/19/2012 THER/PROPH/DIAG INJ SC/IM CPT-4: 01950 03/19/2012 VITAMIN B12 INJECTION CPT-4: J3420 02/15/2012 THER/PROPH/DIAG INJ SC/IM CPT-4: 45528 02/15/2012 THER/PROPH/DIAG INJ SC/IM CPT-4: 95638 01/18/2012 VITAMIN B12 INJECTION CPT-4: J3420 01/18/2012 TRIAMCINOLONE ACET INJ NOS CPT-4: J3301 12/28/2011 DRAIN/INJECT JOINT/BURSA CPT-4: 72518 12/28/2011 VITAMIN B12 INJECTION CPT-4: J3420 12/20/2011 THER/PROPH/DIAG INJ SC/IM CPT-4: 16763 12/20/2011 VITAMIN B12 INJECTION CPT-4: J3420 11/07/2011 THER/PROPH/DIAG INJ SC/IM CPT-4: 81574 11/07/2011 VITAMIN B12 INJECTION CPT-4: J3420 10/03/2011 THER/PROPH/DIAG INJ SC/IM CPT-4: 38232 10/03/2011 TRIAMCINOLONE ACET INJ NOS CPT-4: J3301 08/23/2011 DRAIN/INJECT JOINT/BURSA CPT-4: 56331 08/23/2011 THER/PROPH/DIAG INJ SC/IM CPT-4: 17416 08/23/2011 VITAMIN B12 INJECTION CPT-4: J3420 08/23/2011 VITAMIN B12 INJECTION CPT-4: J3420 07/28/2011 THER/PROPH/DIAG INJ SC/IM CPT-4: 28073 07/28/2011 VITAMIN B12 INJECTION CPT-4: J3420 06/29/2011 THER/PROPH/DIAG INJ SC/IM CPT-4: 15395 06/29/2011 KETOROLAC TROMETHAMINE INJ CPT-4: J1885 05/23/2011 VITAMIN B12 INJECTION CPT-4: J3420 05/23/2011 THER/PROPH/DIAG INJ SC/IM CPT-4: 05382 05/23/2011 ADMIN INFLUENZA VIRUS VAC CPT-4: G0008 04/26/2011 FLULAVAL VACC, 3 YRS & >, IM CPT-4: Q2036 04/26/2011 VITAMIN B12 INJECTION CPT-4: J3420 04/26/2011 THER/PROPH/DIAG INJ SC/IM CPT-4: 30018 04/26/2011 Vital Signs Date Vital 08/05/2018 Blood Pressure 1: 150/78 Code : 8480-6 BMI: 36.0 Code : 94159-8 Heart Rate 1 : 51 bpm Height: 5'6" SpO2: 92% Weight: 223 lbs 05/29/2018 Blood Pressure 1: 120/64 Code : 8480-6 BMI: 35.5 Code : 12838-9 Heart Rate 1 : 58 bpm Height: 5'6" SpO2: 96% Weight: 220 lbs 05/07/2018 Blood Pressure 1: 130/60 Code : 8480-6 BMI: 35.5 Code : 19180-0 Heart Rate 1 : 60 bpm Height: 5'6" SpO2: 97% Weight: 220 lbs 01/29/2018 Blood Pressure 1: 150/80 Code : 8480-6 BMI: 35.5 Code : 73020-6 Heart Rate 1 : 68 bpm Height: 5'6" SpO2: 97% Waist Measure (cm): 109 cm Weight: 220 lbs 01/01/2018 Blood Pressure 1: 136/68 Code : 8480-6 BMI: 35.2 Code : 02587-8 Heart Rate 1 : 60 bpm Height: 5'6" Respiratory Rate: 16 bpm SpO2: 98% Weight: 218 lbs 12/27/2017 Height: Weight: 12/18/2017 Blood Pressure 1: 118/62 Code : 8480-6 BMI: 36.2 Code : 49424-5 Heart Rate 1 : 45 bpm Height: 5'6" SpO2: 98% Weight: 224 lbs 12/13/2017 Blood Pressure 1: 138/88 Code : 8480-6 Heart Rate 1: 92 bpm Height: SpO2: 98% Weight: 06/18/2017 Blood Pressure 1: 134/68 Code : 8480-6 BMI: 35.8 Code : 65447-2 Heart Rate 1 : 50 bpm Height: 5'6" SpO2: 98% Weight: 222 lbs 06/07/2017 Blood Pressure 1: 146/68 Code : 8480-6 BMI: 35.3 Code : 77612-4 Heart Rate 1 : 63 bpm Height: 5'6" SpO2: 99% Weight: 218 lbs 8 04/16/2017 Blood Pressure 1: 130/62 Code : 8480-6 BMI: 34.7 Code : 55681-3 Heart Rate 1 : 51 bpm Height: 5'6" SpO2: 94% Weight: 215 lbs 02/23/2017 Blood Pressure 1: 136/64 Code : 8480-6 BMI: 35.0 Code : 99892-8 Heart Rate 1 : 54 bpm Height: 5'6" SpO2: 96% Weight: 217 lbs 12/26/2016 Blood Pressure 1: 144/74 Code : 8480-6 BMI: 34.5 Code : 30961-5 Heart Rate 1 : 60 bpm Height: 5'6" SpO2: 97% Weight: 214 lbs 09/07/2016 Blood Pressure 1: 138/62 Code : 8480-6 Heart Rate 1: 86 bpm SpO2: 96% Temperature: 36.8 (C) / 98.2 (F) Weight: 207 lbs 08/29/2016 Blood Pressure 1: 132/58 Code : 8480-6 BMI: 33.9 Code : 36764-9 Heart Rate 1 : 55 bpm Height: 5'6" SpO2: 98% Weight: 210 lbs 06/12/2016 Blood Pressure 1: 128/76 Code : 8480-6 BMI: 33.2 Code : 12769-6 Heart Rate 1 : 57 bpm Height: 5'6" SpO2: 97% Weight: 206 lbs 05/04/2016 Blood Pressure 1: 130/72 Code : 8480-6 BMI: 33.9 Code : 29473-8 Heart Rate 1 : 74 bpm Height: 5'6" SpO2: 96% Temperature: 36.9 (C) / 98.5 (F) Weight: 210 lbs 03/30/2016 Blood Pressure 1: 116/66 Code : 8480-6 BMI: 34.3 Code : 86549-1 Heart Rate 1 : 67 bpm Height: 5'6" SpO2: 98% Weight: 212 lbs 8 oz 11/30/2015 Blood Pressure 1: 138/64 Code : 8480-6 BMI: 35.2 Code : 11553-7 Heart Rate 1 : 59 bpm Height: 5'6" SpO2: 98% Weight: 218 lbs 09/06/2015 Blood Pressure 1: 138/668 Code: 8480-6 BMI: 35.3 Code: 29017-3 Heart Rate 1: 68 bpm Height: 5'6" Weight: 219 lbs 08/04/2015 Blood Pressure 1: 140/82 Code : 8480-6 Heart Rate 1: 62 bpm SpO2: 98% Weight: 220 lbs 07/05/2015 Blood Pressure 1: 122/80 Code : 8480-6 BMI: 36.0 Code : 77903-5 Heart Rate 1 : 63 bpm Height: 5'6" SpO2: 97% Temperature: 36.3 (C) / 97.3 (F) Weight: 223 lbs 06/28/2015 Blood Pressure 1: 150/74 Code : 8480-6 BMI: 36.3 Code : 48158-5 Heart Rate 1 : 65 bpm Height: 5'6" SpO2: 96% Weight: 225 lbs 02/23/2015 Blood Pressure 1: 142/64 Code : 8480-6 BMI: 37.0 Code : 67982-7 Heart Rate 1 : 56 bpm Height: 5'6" SpO2: 96% Weight: 229 lbs 01/08/2015 Blood Pressure 1: 128/88 Code : 8480-6 BMI: 37.3 Code : 28341-1 Heart Rate 1 : 74 bpm Height: 5'6" Weight: 231 lbs 09/24/2014 Blood Pressure 1: 128/70 Code : 8480-6 BMI: 36.8 Code : 92949-1 Heart Rate 1 : 68 bpm Height: 5'6" SpO2: 96% Weight: 228 lbs 05/11/2014 Blood Pressure 1: 148/82 Code : 8480-6 Height: Temperature: 36.2 (C) / 97.2 (F) Weight: 05/01/2014 Blood Pressure 1: 128/68 Code : 8480-6 BMI: 36.6 Code : 75546-3 Heart Rate 1 : 74 bpm Height: 5'6" Weight: 227 lbs 04/03/2014 Blood Pressure 1: 130/72 Code : 8480-6 BMI: 36.8 Code : 20481-0 Heart Rate 1 : 76 bpm Height: 5'6" Weight: 228 lbs 11/24/2013 Blood Pressure 1: 146/64 Code : 8480-6 BMI: 35.5 Code : 52379-7 Heart Rate 1 : 64 bpm Height: 5'6" Weight: 220 lbs 08/22/2013 Weight: 223 lbs 07/28/2013 Blood Pressure 1: 112/68 Code : 8480-6 BMI: 36.2 Code : 57190-1 Heart Rate 1 : 80 bpm Height: 5'6" Weight: 224 lbs 06/16/2013 Blood Pressure 1: 132/60 Code : 8480-6 BMI: 37.6 Code : 77592-5 Heart Rate 1 : 72 bpm Height: 5'6" Weight: 233 lbs 01/22/2013 Blood Pressure 1: 130/64 Code : 8480-6 BMI: 37.3 Code : 37183-8 Heart Rate 1 : 80 bpm Height: 5'6" Weight: 231 lbs 10/02/2012 Blood Pressure 1: 146/90 Code : 8480-6 BMI: 36.8 Code : 12058-4 Heart Rate 1 : 60 bpm Height: [...] Code : 8480-6 BMI: 37.1 Code : 30708-2 Heart Rate 1 : 60 bpm Height: 5'6" Respiratory Rate: 16 bpm Weight: 230 lbs 12/20/2011 Blood Pressure 1: 142/66 Code : 8480-6 BMI: 35.8 Code : 05941-4 Heart Rate 1 : 66 bpm Height: [...] Code : 8480-6 BMI: 36.2 Code : 27747-6 Heart Rate 1 : 64 bpm Height: 5'6" Respiratory Rate: 16 bpm Weight: 224 lbs 8 oz Functional Status No Functional Status data History of Present Illness Symptom Name Status Result Effective Date Notes Quality insulin dependent 08/05/2018 None Test results [...] None knee pain Quality intermittent 06/28/2015 seeing [facility] hypertension Blood Pressure Values patient checking [...] lesion Location on the right cheek 01/22/2013 sabianism area edema Quality painful 01/22/2013 None edema [...] data Encounters Encounter Performer Location Codes Date [id number]) [id number] EST. PATIENT, LEVEL IV Diagnosis: Essential (primary) hypertension[ICD10: I10] Diagnosis: Type 2 diabetes mellitus with hyperglycemia[ICD10: E11.65] Diagnosis: Chronic kidney disease, stage 3 (moderate)[ICD10: N18.3] Chantell Garcia MD , [facility] CPT-4: 19575 08/05/2018 [id number] EST. PATIENT, LEVEL III Diagnosis: Sacrococcygeal disorders, not elsewhere classified[ICD10: M53.3] Diagnosis: Low back pain[ICD10: M54.5] Diagnosis: Sciatica, right side[ICD10: M54.31] Yady Garcia MD, [facility] CPT-4: 75835 05/29/2018 [id number]) [id number] EST. PATIENT, LEVEL IV Diagnosis: Type 2 diabetes mellitus without complications[ICD10: E11.9] Diagnosis: Chronic kidney disease, stage 3 (moderate)[ICD10: N18.3] Diagnosis: Essential (primary) hypertension[ICD10: I10] Diagnosis: Other vitamin B12 deficiency anemias[ICD10: D51.8] Chantell Garcia MD, [facility] CPT-4: 04339 05/07/2018 [id number]) [id number] EST. PATIENT, LEVEL IV Diagnosis: Type 2 diabetes mellitus without complications[ICD10: E11.9] Diagnosis: Essential (primary) hypertension[ICD10: I10] Diagnosis: Chronic atrial fibrillation[ICD10: I48.2] Daisy Garcia MD, [facility] CPT-4: 62088 01/01/2018 [id number] EST. 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 PATIENT, LEVEL IV Diagnosis: Type 2 diabetes mellitus with hyperglycemia[ICD10: E11.65] Diagnosis: Essential (primary) hypertension[ICD10: I10] Diagnosis: Pain in left knee[ICD10: M25.562] Diagnosis: Other vitamin B12 deficiency anemias[ICD10: D51.8] Daisy Garcia MD, [facility] CPT-4: 11355 12/18/2017 [id number] EST. PATIENT, LEVEL III Diagnosis: Pain in left knee[ICD10: M25.562] Yady Garcia MD, [facility] CPT -4: 17380 12/13/2017 ([id number]) 06075 EST. PATIENT, LEVEL IV Diagnosis: Type 2 diabetes mellitus without complications[ICD10: E11.9] Diagnosis: Essential (primary) hypertension[ICD10: I10] Diagnosis: Other vitamin B12 deficiency anemias[ICD10: D51.8] Diagnosis: Allergic rhinitis due to animal (cat) (dog) hair and dander[ICD10: J30.81] Daisy Garcia MD, [facility] CPT-4: 39343 2016 ([id number]) 34295 EST. 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 PATIENT, LEVEL IV Diagnosis: Type 2 diabetes mellitus without complications[ICD10: E11.9] Diagnosis: Essential (primary) hypertension[ICD10: I10] Diagnosis: Chronic atrial fibrillation[ICD10: I48.2] Daisy Garcia MD, [facility] CPT-4: 41932 04/16/2017 ([id number]) 04757 EST. PATIENT, LEVEL III Diagnosis: Sciatica, left side[ICD10: M54.32] Diagnosis: Sacroiliitis, not elsewhere classified[ICD10: M46.1] Chantell Garcia MD, [facility] CPT-4: 54857 02/23/2017 ([id number]) 22179 EST. PATIENT, LEVEL IV Diagnosis: Type 2 diabetes mellitus without complications[ICD10: E11.9] Diagnosis: Essential (primary) hypertension[ICD10: I10] Daisy Garcia MD, [facility] CPT-4: 23322 12/26/2016 ([id number]) 67490 EST. PATIENT, LEVEL III Diagnosis: Cough[ICD10: R05] Diagnosis: Acute bronchitis, unspecified[ICD10: J20.9] Chantell Garcia MD, [facility] CPT-4: 25749 09/07/2016 ([id number]) 47511 EST. PATIENT, LEVEL IV Diagnosis: Type 2 diabetes mellitus without complications[ICD10: E11.9] Diagnosis: Cough[ICD10: R05] Diagnosis: Acute laryngopharyngitis[ICD10: J06.0] Diagnosis: Acute recurrent maxillary sinusitis[ICD10: J01.01] Daisy Garcia MD, [facility] CPT-4: 09904 08/29/2016 09820 EST. PATIENT, LEVEL IV Diagnosis: Other allergic rhinitis[ICD10: J30.89] Diagnosis: Other vitamin B12 deficiency anemias[ICD10: D51.8] Yady Garcia MD, [facility] CPT-4: 37060 06/12/2016 ([id number]) 02221 EST. PATIENT, LEVEL III Diagnosis: Urinary tract infection, site not specified[ICD10: N39.0] Diagnosis: Fever, unspecified[ICD10: R50.9] Diagnosis: Other vitamin B12 deficiency anemias[ICD10: D51.8] Chantell Garcia MD, [facility] CPT-4: 91237 05/04/2016 ([id number]) 68616 EST. PATIENT, LEVEL IV Diagnosis: Type 2 diabetes mellitus with diabetic autonomic (poly)neuropathy[ ICD10: E11.43] Diagnosis: Essential (primary) hypertension[ICD10: I10] Daisy Garcia MD, [facility] CPT-4: 44443 03/30/2016 ([id number]) 61627 EST. PATIENT, LEVEL IV Diagnosis: Type 2 diabetes mellitus with hyperglycemia[ICD10: E11.65] Diagnosis: Essential (primary) hypertension[ICD10: I10] Daisy Garcia MD, [facility] CPT-4: 39203 11/30/2015 ([id number]) 29095 EST. PATIENT, LEVEL III Diagnosis: Acute recurrent maxillary sinusitis[ICD10: J01.01] Diagnosis: Unspecified acute conjunctivitis, right eye[ICD10: H10.31] Diagnosis: Vitamin B12 deficiency anemia, unspecified[ICD10: D51.9] Chantell Garcia MD , [facility] CPT-4: 23115 09/06/2015 05220 EST. PATIENT, LEVEL III Diagnosis: Pain in right knee[ICD10: M25.561] Diagnosis: Essential (primary) hypertension[ICD10: I10] Diagnosis: Vitamin B12 deficiency anemia, unspecified[ICD10: D51.9] Yady Garcia MD, [facility] CPT-4: 28582 08/04/2015 ([id number]) 37357 EST. PATIENT, LEVEL III Diagnosis: Streptococcal pharyngitis[ICD10: J02.0] Diagnosis: Acute recurrent maxillary sinusitis[ICD10: J01.01] Chantell Garcia MD, [facility] CPT-4: 61292 07/05/2015 ([id number]) 46304 EST. PATIENT, LEVEL IV Diagnosis: Type 2 diabetes mellitus with hyperglycemia[ICD10: E11.65] Diagnosis: Essential (primary) hypertension[ICD10: I10] Diagnosis: Vitamin B12 deficiency anemia, unspecified[ICD10: D51.9] Daisy Garcia MD, [facility] CPT-4: 56786 06/28/2015 ([id number]) 41295 EST. PATIENT, LEVEL IV Diagnosis: DM W/O COMPLICATION TYPE II, UNCONTROLLED[ICD9: 250.02] Diagnosis: ESSENTIAL HYPERTENSION[ICD9: 401.9] Diagnosis: Iron deficiency[ICD9: 280.9] Diagnosis: OTH SCREENING MAMMOGRAM[ICD9: V76.12] Diagnosis: B12 deficiency[ICD9: 266.2] Daisy Garcia MD, [facility] CPT- 4: 42571 02/23/2015 ([id number]) 60070 EST. PATIENT, LEVEL IV Diagnosis: DM W/O COMPLICATION TYPE II, UNCONTROLLED[ICD9: 250.02] Diagnosis: ESSENTIAL HYPERTENSION[ICD9: 401.9] Diagnosis: Right knee pain[ICD9: 719.46] Diagnosis: B12 deficiency[ICD9: 266.2] Chantell Garcia MD, [facility] CPT-4: 12388 01/08/2015 ([id number]) 09845 EST. PATIENT, LEVEL IV Diagnosis: DM W/O COMPLICATION TYPE II, UNCONTROLLED[ICD9: 250.02] Diagnosis: ESSENTIAL HYPERTENSION[ICD9: 401.9] Diagnosis: Iron deficiency[ICD9: 280.9] Daisy Garcia MD, [facility] CPT- 4: 85965 09/24/2014 ([id number]) 06343 EST. PATIENT, LEVEL III Diagnosis: Sacroiliitis[ICD9: 720.2] Diagnosis: Left sided sciatica[ICD9: 724.3] Chantell Garcia MD, [facility] CPT-4: 31460 05/11/2014 ([id number]) 39648 EST. PATIENT, LEVEL III Diagnosis: CELLULITIS OF BUTTOCK[ICD9: 682.5] Daisy Garcia MD, [facility] CPT-4: 05960 05/01/2014 22644 EST. PATIENT, LEVEL IV Diagnosis: ESSENTIAL HYPERTENSION[ICD9: 401.9] Diagnosis: DIABETES TYPE II[ICD9: 250.00] Diagnosis: Iron deficiency[ICD9: 280.9] Diagnosis: LUMBAGO[ICD9: 724.2] Daisy Garcia MD, [facility] CPT-4: 87343 04/03/2014 ([id number]) 79502 EST. PATIENT, LEVEL IV Diagnosis: ESSENTIAL HYPERTENSION[SNOMED: 42005497] Diagnosis: DIABETES TYPE II[SNOMED: 347765170] Diagnosis: ANEMIA[ICD9: 285.9] Diagnosis: Iron deficiency[ICD9: 280.9] Daisy Garcia MD, [facility] CPT- 4: 28669 11/24/2013 ([id number]) 86928 EST. PATIENT, LEVEL IV Diagnosis: ESSENTIAL HYPERTENSION[SNOMED: 34617907] Diagnosis: DIABETES TYPE II[SNOMED: 159495267] Diagnosis: EDEMA[ICD9: 782.3] Daisy Garcia MD, [facility] CPT-4: 65464 07/28/2013 ([id number]) 19885 EST. PATIENT, LEVEL IV Diagnosis: ESSENTIAL HYPERTENSION[SNOMED: 19628261] Diagnosis: DIABETES TYPE II[SNOMED: 716099614] Diagnosis: EDEMA[ICD9: 782.3] Diagnosis: B-COMPLEX DEFIC NEC[ICD9: 266.2] Daisy Garcia MD, [facility] CPT-4: 07495 06/16/2013 ([id number]) 92742 EST. PATIENT, LEVEL IV Diagnosis: ESSENTIAL HYPERTENSION[SNOMED: 92364359] Diagnosis: DIABETES TYPE II[SNOMED: 837097389] Diagnosis: EDEMA[ICD9: 782.3] Diagnosis: B-COMPLEX DEFIC NEC[ICD9: 266.2] Daisy Garcia MD, [facility] CPT-4: 72735 01/22/2013 ([id number]) 02884 EST. PATIENT, LEVEL III Diagnosis: Lumbago[ICD9: 724.2] Diagnosis: Sacroiliitis[ICD9: 720.2] Diagnosis: ESSENTIAL HYPERTENSION[SNOMED: 81547192] Daisy Garcia MD, [facility] CPT-4: 86277 10/02/2012 ([id number]) 66547 EST. PATIENT, LEVEL III Diagnosis: ACUTE URI[ICD9: 465.9] Daisy Garcia MD, [facility] CPT-4: 56524 08/06/2012 ([id number]) 10113 EST. PATIENT, LEVEL IV Diagnosis: ESSENTIAL HYPERTENSION[SNOMED: 23761567] Diagnosis: DIABETES TYPE II[SNOMED: 570275685] Diagnosis: ANEMIA[ICD9: 285.9] Daisy Garcia MD [facility] CPT-4: 59094 07/04/2012 ([id number]) 02248 EST. PATIENT, LEVEL IV Diagnosis: ESSENTIAL HYPERTENSION[SNOMED: 07521703] Diagnosis: DIABETES TYPE II[SNOMED: 017965613] Diagnosis: B-COMPLEX DEFIC NEC[ICD9: 266.2] Daisy Garcia MD, [facility] CPT-4: 47933 05/22/2012 ([id number]) 15779 EST. PATIENT, LEVEL IV Diagnosis: ESSENTIAL HYPERTENSION[SNOMED: 88161662] Diagnosis: DIABETES TYPE II[SNOMED: 737294048] Diagnosis: LUMBAGO[ICD9: 724.2] Diagnosis: B-COMPLEX DEFIC NEC[ICD9: 266.2] Daisy Garcia MD, [facility] CPT-4: 85972 04/22/2012 67888 EST. PATIENT, LEVEL III Diagnosis: Sciatica of right side[ICD9: 724.3] Diagnosis: Sacroiliitis[ICD9: 720.2] Chantell Garcia MD, [facility] CPT-4: 11613 12/28/2011 ([id number]) 77882 EST. PATIENT, LEVEL IV Diagnosis: DIABETES TYPE II[SNOMED: 717556520] Diagnosis: ESSENTIAL HYPERTENSION[SNOMED: 64048319] Daisy Garcia MD, [facility] CPT-4: 85510 12/20/2011 ([id number]) 89914 EST. PATIENT, LEVEL IV Diagnosis: ESSENTIAL HYPERTENSION[SNOMED: 15981813] Diagnosis: DIABETES TYPE II[SNOMED: 666816457] Diagnosis: PAIN IN LIMB[ICD9: 729.5] Diagnosis: LUMBAGO[ICD9: 724.2] Diagnosis: Sacroiliitis[ICD9: 720.2] Daisy Garcia MD, [facility] CPT-4: 79781 08/23/2011 60446 EST. PATIENT, LEVEL III Diagnosis: Sacroiliitis[ICD9: 720.2] Diagnosis: Right sided sciatica[ICD9: 724.3] Diagnosis: B-COMPLEX DEFIC NEC[ICD9: 266.2] Chantell Garcia MD, [facility] CPT-4: 71300 05/23/2011 64895 EST. PATIENT, LEVEL IV Diagnosis: DIABETES TYPE II[SNOMED: 448338326] Diagnosis: ESSENTIAL HYPERTENSION[SNOMED: 33956809] Diagnosis: Feces incontinence[ICD9: 787.60] Daisy Garcia MD, [facility] CPT-4: 16432 04/26/2011 Plan of Care Planned Activity Notes Codes Status Date Visit Plan: Hypertension - well controlled - [...] stage 3-patient is seeing Dr Shields -kirsten glipilucho and byetta - monitor labs 08/05/2018 Visit [...] glipizide and byetta - monitor labs 08/05/2018 Patient Education: Patient Medication Summary Completed [...] they worsen. 05/29/2018 Appointment: Yady Harper WPtel: [address] [place], [place] [address] (15 min) Moderate 05/29/2018 Patient Education: Patient [...] at home. 01/01/2018 Appointment: Daisy Garcia WPtel: [facility] (15 min) Moderate 01/01/2018 Patient Education: Patient [...] weekend. 12/27/2017 Appointment: [facility] [facility] ([facility] min) Moderate 12/27/2017 Patient Education: [...] in clinic. 12/18/2017 Appointment: Daisy Garcia WPtel: [facility] (15 min) Moderate 12/18/2017 Patient Education: Patient Medication Summary Completed 12/18/2017 Care Plan: COMPLETE CBC AUTOMATED LOINC : 49462-5 Pending 12/18/2017 Visit Plan: Left knee pain - will have pt use RICE - Rest, Ice, Compression, Elevation - will order x-ray - The pt is to use prn antiinflammatories to manage acute pain. The patient is to call the office if the pain is worsening or does not improve. 12/13/2017 Appointment: Yady Harper WPtel: [facility] (30 min) Complex 12/13/2017 Patient Education: Patient Medication Summary Completed 12/13/2017 Care Plan: X-RAY EXAM OF KNEE 3 LOINC : 40533-7 Pending 12/13/2017 Appointment: Injection 11/20/2017 Patient Education: Patient Medication Summary Completed 11/20/2017 Appointment: Daisy Garcia WPtel: [facility] [place] (15 min) Moderate 09/18/2017 Appointment: Injection [...] shot today. 06/18/2017 Appointment: Daisy Garcia WPtel: [facility] (15 min) Moderate 06/18/2017 Patient Education: Patient [...] 5 days 06/07/2017 Appointment: Daisy Garcia WPtel: [facility] (15 min) Moderate 06/07/2017 Patient Education: Patient Medication Summary Completed 06/07/2017 Patient Education: Obesity Completed 06/07/2017 Appointment: Injection 05/09/2017 Patient Education: Patient Medication Summary Completed 05/09/2017 Appointment: Daisy Garcia WPtel: [facility] (15 min) Moderate 04/26/2017 Patient Education: [...] cardizem 04/16/2017 Appointment: [facility] [facility] [place] (15 min) Moderate 04/16/2017 Appointment: Daisy [facility] [facility] [place] (15 min) Moderate 04/16/2017 Patient [...] 12/26/2016 Appointment: Daisy Garcia WPtel: [address] [facility] (15 min) Moderate 12/26/2016 Patient Education: Patient Medication Summary Completed 12/26/2016 Appointment: Injection 11/14/2016 Patient Education: Patient Medication Summary Completed 11/14/2016 Visit Plan: Bronchitis - acute case of bronchitis identified. Pt has been given antibiotics, breathing treatments as appropriate, and pt has been instructed to call if symptoms are not improved, or if symptoms acutely worsen. 09/07/2016 Appointment: Chantell Singh WPtel: [phone] [phone] [place] (30 min) Complex 09/07/2016 Patient [...] show improvement. 08/29/2016 Appointment: Daisy Garcia WPtel: [phone] [facility] (15 min) Moderate 08/29/2016 Patient Education: Patient Medication Summary Completed 08/29/2016 Patient Education: Obesity Completed 08/29/2016 Appointment: Daisy Garcia WPtel: [phone] [facility] (15 min) Moderate 08/22/2016 Appointment: Daisy Garcia WPtel: [phone] [facility] (15 min) Moderate 08/02/2016 Appointment: Chantell Singh WPtel: [address] [phone] (30 min) Complex 08/02/2016 Visit Plan: [...] allergy spray. 06/12/2016 Appointment: Yady Harper WPtel: [facility] (15 min) Moderate 06/12/2016 Patient Education: Patient [...] office 05/04/2016 Appointment: Chantell Singh WPtel: [phone] [phone] [place] (15 min) Moderate 05/04/2016 Patient [...] triamcinalone cream. 03/30/2016 Appointment: Daisy [facility]el[facility] [facility] (15 min) Moderate 03/30/2016 Patient Education: Patient Medication Summary Completed 03/30/2016 Patient Education: Hypertension Completed 03/30/2016 Appointment: Injection 03/17/2016 Patient Education: Patient Medication Summary Completed 03/17/2016 Appointment: Injection 02/15/2016 Patient Education: Patient Medication Summary Completed 02/15/2016 Appointment: Daisy Garcia [facility]Ptel[facility] [address] [facility] [place] (15 min) Moderate 01/26/2016 Appointment: [...] concerns. 11/30/2015 Appointment: Daisy [facility]el[facility] [address] [facility] (15 min) Moderate 11/30/2015 Patient Education: Patient Medication Summary Completed 11/30/2015 Patient Education: Obesity Completed 11/30/2015 Appointment: Daisy [facility]el[facility] [address] [facility] (15 min) Moderate 10/26/2015 Visit Plan: [...] Summary Completed 07/05/2015 Care Plan: C HERI Briones [place] Pending 07/05/2015 Visit Plan: Diabetes [...] home. 06/28/2015 Appointment: Daisy Garcia [facility]Ptel[facility] [address] [facility] (15 min) Moderate 06/28/2015 Patient Education: Patient [...] without resting. 02/23/2015 Appointment: Daisy Garcia WPtel: [facility] Follow up 02/23/2015 Patient Education: Patient Medication Summary Completed 02/23/2015 Patient Education: Hypertension Completed 02/23/2015 Care Plan: SCREENINGMAMMOGRAPHYDIGITAL LOINC : 49797-7 Ordered 02/23/2015 Visit Plan: Depression - uncontrolled [...] Care Plan: COMPLETE CBC AUTOMATED LOINC : 00508-7 Ordered 01/08/2015 Appointment: Injection 12/08/2014 Patient Education: [...] diarrhea. 09/24/2014 Appointment: Daisy Garcia [facility]Ptel[facility] [address] [facility] Follow up 09/24/2014 Patient Education: Patient Medication Summary Completed 09/24/2014 Patient Education: Hypertension Completed 09/24/2014 Appointment: Daisy Garcia [facility]Ptel[facility] [address] [facility] [place] Injection 08/24/2014 Patient Education: Patient [...] warmth, discharge. 05/01/2014 Appointment: Daisy Garcia WPtel: [facility] [place] Follow up 05/01/2014 Patient Education: Patient Medication Summary Completed 05/01/2014 Appointment: Daisy Garcia WPtel: [address] [place], [place] [address] [place] Injection 04/27/2014 Patient Education: Patient Medication [...] for pain 04/03/2014 Appointment: Chantell Singh WPtel: [facility] Follow up 04/03/2014 Patient Education: Patient Medication Summary Completed 04/03/2014 Patient Education: Hypertension Completed 04/03/2014 Visit Plan: vitamin b12 injection 03/24/2014 Appointment: Daisy Garcia WPtel: [address] [place], [place] [address] [place] Injection 03/24/2014 Patient Education: Patient Medication Summary Completed 03/24/2014 Appointment: Daisy Garcia WPtel: [address] [place], [place] [address] [place] Follow up 03/23/2014 Appointment: Daisy Garcia [facility]Ptel[facility] [address] [facility] [place] Injection 02/24/2014 Patient Education: Patient Medication Summary Completed 02/24/2014 Appointment: [facility]ant[facility] Singh [facility]el[facility] [phone] [facility] [place] Injection 01/09/2014 Patient Education: Patient [...] oral supplementation. 11/24/2013 Appointment: Daisy Garcia WPtel: [facility] [place] Follow up 11/24/2013 Patient Education: Patient Medication Summary Completed 11/24/2013 Patient Education: Hypertension Completed 11/24/2013 Appointment: Daisy Garcia WPtel: [facility] [place] Follow up 11/12/2013 Appointment: Daisy Garcia WPtel: [facility] [place] Follow up 10/27/2013 Appointment: Chantell Singh [facility]Ptel: [phone] [facility] [place] Injection 09/18/2013 Patient Education: Patient Medication Summary Completed 09/18/2013 Appointment: Chantell Singh [facility]Ptel[facility] [phone] [facility] [place] Injection 08/22/2013 Patient Education: Patient [...] today 07/28/2013 Appointment: Daisy Garcia [facility]Ptel: [address] [facility] Follow up 07/28/2013 Patient Education: Patient Medication Summary Completed 07/28/2013 Patient Education: Hypertension Completed 07/28/2013 Appointment: Chantell Singh [facility]Ptel[facility] [phone] [phone] [place] Injection 06/20/2013 Visit Plan: Diabetes [...] edema. 06/16/2013 Appointment: Daisy Garcia [facility]Ptel: [address] [facility] [place] Follow up 06/16/2013 Patient Education: Patient Medication Summary Completed 06/16/2013 Patient Education: Hypertension Completed 06/16/2013 Appointment: Chantell Singh [facility]Ptel[facility] [address] [facility] [place] Injection 05/21/2013 Patient Education: Patient Medication Summary Completed 05/21/2013 Appointment: Daisy Garcia [facility]Ptel: [address] [facility] [place] Injection 04/23/2013 Patient Education: Patient Medication Summary Completed 04/23/2013 Appointment: Daisy Garcia [facility]Ptel: [address] [facility] [place] Injection 03/24/2013 Patient Education: Patient Medication Summary Completed 03/24/2013 Appointment: Daisy Garcia [facility]Ptel: [facility] [facility] [place] Injection 02/20/2013 Patient Education: Patient [...] 01/22/2013 Appointment: Daisy Garcia WPtel: [phone] [facility] [place] Follow up 01/22/2013 Patient Education: Patient Medication Summary Completed 01/22/2013 Patient Education: Hypertension Completed 01/22/2013 Appointment: Daisy Garcia [facility]Ptel: [facility] [facility] [place] Injection 01/21/2013 Patient Education: Patient Medication Summary Completed 12/19/2012 Appointment: Daisy [facility]Ptel: [facility] [facility] [place] Injection 11/22/2012 Appointment: Daisy Garcia [facility]Ptel: [facility] [facility] [place] Injection 11/20/2012 Patient Education: Patient Medication Summary Completed 11/20/2012 Appointment: [facility]ant[facility] Singh [facility]Ptel[facility] [address] [facility] [place] Injection 11/08/2012 Appointment: Daisy Garcia [facility]Ptel: [facility] [facility] [place] Injection 10/23/2012 Patient Education: Patient [...] Completed 10/02/2012 Appointment: Chantell Singh WPtel: [phone] [phone] Lab Draw 09/16/2012 Patient Education: Patient Medication [...] the office. 08/06/2012 Appointment: Chantell Singh WPtel: [phone] [phone] [facility] 08/06/2012 Patient Education: Patient Medication Summary Completed 08/06/2012 Patient Education: Patient Medication Summary Completed 07/19/2012 Visit Plan: Joint Injection - Pt was given post - injection instructions. The pt has been advised to use antiinflammatories post injection today, ice to the injected site, call if redness, warmth, or increased pain occurs at the site of injection. 07/10/2012 Appointment: Daisy Garcia [facility]Ptel: [phone] [facility] [place] Injection 07/10/2012 Patient Education: Patient Medication [...] starting to become less controlled. 07/04/2012 Appointment: Arnold Garciay [facility]Ptel: [facility] [facility] Follow up 07/04/2012 Patient Education: Patient Medication Summary Completed 07/04/2012 Patient Education: Hypertension Completed 07/04/2012 Appointment: Daisy Garcia [facility]Ptel: [facility] [facility] [place] Injection 06/19/2012 Patient Education: Patient [...] office. 05/22/2012 Appointment: [facility]el[facility] [facility] Follow up 05/22/2012 Appointment: Chantell iSngh WPtel: [address] [facility] Follow up 05/22/2012 Patient Education: Patient [...] office 04/22/2012 Appointment: Chantell Singh WPtel: [address] [phone] Established Patient Preventative visit 04/22/2012 Patient Education: Patient Medication Summary Completed 04/22/2012 Patient Education: High Blood Pressure: Essential Hypertension Completed 2011 Appointment: Chantell Singh [facility]Ptel: [address] [phone] [place] Injection 03/19/2012 Patient Education: Patient Medication Summary Completed 03/19/2012 Appointment: Daisy Garcia [facility]Ptel: [facility] [facility] [place] Injection 02/15/2012 Patient Education: Patient Medication Summary Completed 02/15/2012 Appointment: Daisy Garcia [facility]Ptel: [facility] [facility] [place] Injection 01/18/2012 Patient Education: Patient [...] worse. 12/28/2011 Appointment: Chantell Singh [facility]Ptel: [address] [facility] [place] Other 12/28/2011 Patient Education: Patient [...] today. 12/20/2011 Appointment: Daisy Garcia [facility]Ptel: [facility] [facility] [place] Other 12/20/2011 Patient Education: Patient Medication Summary Completed 12/20/2011 Patient Education: High Blood Pressure: Essential Hypertension Completed 2011 Appointment: Chantell Singh [facility]Ptel: [address] [facility] [place] Injection 11/07/2011 Patient Education: Patient Medication Summary Completed 11/07/2011 Appointment: Daisy Garcia [facility]Ptel: [address] [facility] [place] Injection 10/03/2011 Patient Education: Patient Medication Summary Completed 10/03/2011 Appointment: Daisy Garcia [facility]Ptel: [facility] [facility] [place] Injection 08/28/2011 Visit Plan: Hypertension [...] left today 08/23/2011 Appointment: Daisy Garcia WPtel: [phone] [facility] Other 08/23/2011 Patient Education: Patient Medication Summary Completed 08/23/2011 Patient Education: High Blood Pressure: Essential Hypertension Completed 2011 Appointment: Chantell Singh WPtel: [phone] [phone] [place] Injection 07/28/2011 Patient Education: Patient Medication Summary Completed 07/28/2011 Visit Plan: b12 injection 06/29/2011 Appointment: Chantell Singh WPtel: [phone] [phone] [place] Injection 06/29/2011 Patient Education: Patient [...] the office 05/23/2011 Appointment: Chantell Singh WPtel: [phone] Other 05/23/2011 Patient Education: Patient Medication [...] DAILY IRON. 04/26/2011 Appointment: Daisy Garcia WPtel: [facility] [facility] 04/26/2011 Patient Education: Patient Medication Summary Completed 04/26/2011 Instructions Comment . flu shot today b12 shot today . Cellulitis - continue with oral antibiotics as previously directed, return to clinic as previously directed, call for acute change in symptoms, worsening redness, warmth, discharge. . Diabetes Mellitus - controlled - per [...] is to call for acute concerns. . Apthous ulcer of mouth/mouth pain - I have recommended pt to start on magic mouth wash a 1:1:1 solution of carafate, nystatin, and benadryl for 5mL swish and swallow qid x 10 days - I have called this rx to [facility]. Rx for acyclovir sent to [facility] as well. Glenda is to call if the symptoms do not improve over the weekend. . Left knee pain - will have pt use RICE - Rest, Ice, Compression, Elevation - will order x-ray - The pt is to use prn antiinflammatories to manage acute pain. The patient is to call the office if the pain is worsening or does not improve. . Hypertension - well controlled - continue [...] if pain persists, or if any worse. LEXAPRO 5MG IN THE EVENING VITAMIN B12 [...] been appropriately prescribed for this patient. . Sinusitis - Pt has acute infection [...] readings are starting to become less controlled. Increase lisinopril to 40mg po daily Monitor [...] medication. Kenalog injection today in the office. IPRO placement tomorrow . Hypertension - well [...] seeing Dr Shields -kirsten glipizide and byetta -monitor labs . Allergies - chronic - recommended pt [...] GI upset with nausea and diarrhea. . Urinary Tract Infection-discussed natural and expected [...] b12 injection given today in clinic. . Hypertension - elevated today in the [...] b12 deficiency - shot given tonight . Joint Injection - Pt was given [...] B12 deficiency-B12 injection today in the office use neosporin on the sites that itch [...]
--- OUTSIDE RECORDS SUMMARY | 2018-10-02 07:13 | XMS REPORT | CCD ---
Author Author Daisy [facility] Organization [facility] Address [address] [place] [address] Phone Care Team Providers Care Economic Historian Name Role Phone Daisy Garcia PP Unavailable CCM Unavailable Summary Purpose Interface Exchange Insurance Providers Payer name Policy type / Coverage type Covered alliance party ID Effective Begin Date Effective End Date WPS Medicare Part B Medicare Part B [id number] 2018 Unknown [place] [employer] Medicare Part B [id number] 2018 Unknown Family history Sister Diagnosis Age [...] 1 daughter 04/21/[address]: 894943532 Nonsmoker 04/21/[address]: 948411310 Never drinks alcohol 04/21/2011 Has the patient [...] capsule sprinkle, ext. release 24 hr RxNorm: 5152826 1 Capsule(s) PO daily 08/05/2018 Active Lasix 20 mg tablet RxNorm: 870024 TAKE ONE TABLET BY MOUTH DAILY NEEDED FOR SWELLING. TAKE POTASSIUM WITH EACH DOSE. 08/02/2018 04/28/2019 Active potassium chloride ER 20 mEq tablet,extended release(part/ cryst) RxNorm: 5789205 TAKE ONE TABLET BY MOUTH DAILY WHEN YOU TAKE LASIX (FUROSEMIDE) 08/02/2018 07/27/2019 Active Lasix 20 mg tablet RxNorm: 687918 Tablet(s) TAKE ONE TABLET BY MOUTH DAILY NEEDED FOR SWELLING. TAKE POTASSIUM WITH EACH DOSE 201808/01/2018 Inactive potassium chloride ER 20 mEq tablet,extended release(part/ cryst) RxNorm: 7396779 Tablet(s) TAKE ONE TABLET BY MOUTH DAILY WHEN YOU TAKE LASIX (FUROSEMIDE) 08/02/2018 08/01/2018 Inactive spironolactone 25 mg tablet RxNorm: 919725 Tablet(s) TAKE ONE TABLET BY MOUTH TWICE A DAY 06/11/2018 06/05/2019 Active Zorvolex 35 mg capsule RxNorm: 2443895 1 Capsule(s) PO TID 07/201706/28/2018 Inactive Lexapro 5 mg tablet RxNorm: 341088 TAKE ONE TABLET BY MOUTH EVERY EVENING 05/30/2018 08/22/2019 Active Zorvolex 35 mg capsule RxNorm: 7543906 1 Capsule(s) PO TID 07/201705/29/2018 Inactive Kenalog 40 mg/mL suspension for injection RxNorm: 8081627 1 Milliliter(s) Inj 05/29/2018 05/29/2018 Inactive Lomotil 2.5 mg-0.025 mg tablet RxNorm: 2694402 Tablet(s) PO TAKE ONE TABLET BY MOUTH EVERY 8 HOURS NEEDED 05/08/2018 07/06/2018 Inactive warfarin 2 mg tablet RxNorm: 580744 1 Tablet(s) PO daily 3 days per week, 1/2 Tablet PO 4 days per week- Dr. Andrews manages 05/07/2018 No Stop Date Active cyanocobalamin (vit B-12) 1,000 mcg/mL injection solution RxNorm: 520366 1 Milliliter(s) Inj 05/07/2018 05/07/2018 Inactive Lasix 20 mg tablet RxNorm: 841000 TAKE ONE TABLET BY MOUTH DAILY NEEDED FOR SWELLING. TAKE POTASSIUM WITH EACH DOSE 04/30/2018 08/01/2018 Inactive Synthroid 50 mcg tablet RxNorm: 024541 TAKE ONE TABLET BY MOUTH EVERY DAY. 04/23/2018 07/16/2019 Active cyanocobalamin (vit B-12) 1,000 mcg/mL injection solution RxNorm: 764964 Milliliter(s) Inj 04/04/2018 04/04/2018 Inactive glipizide 10 mg tablet RxNorm: 128024 Tablet(s) TAKE ONE TABLET BY MOUTH TWICE A DAY 04/03/2018 07/16/2018 Inactive amlodipine 5 mg tablet RxNorm: 350420 TAKE ONE TABLET BY MOUTH TWICE A DAY 03/12/2018 03/06/2019 Active potassium chloride ER 20 mEq tablet,extended release(part/ cryst) RxNorm: 5209906 TAKE ONE TABLET BY MOUTH DAILY WHEN YOU TAKE LASIX (FUROSEMIDE) 03/12/2018 08/01/2018 Inactive spironolactone 25 mg tablet RxNorm: 104454 TAKE ONE TABLET BY MOUTH TWICE A DAY 03/11/2018 06/10/2018 Inactive cyanocobalamin (vit B-12) 1,000 mcg/mL injection solution RxNorm: 096539 1 Milliliter(s) Inj 03/04/2018 03/04/2018 Inactive cyanocobalamin (vit B-12) 1,000 mcg/mL injection solution RxNorm: 417103 1 Milliliter(s) Inj 01/29/2018 01/29/2018 Inactive amlodipine 5 mg tablet RxNorm: 152078 1 Tablet(s) PO QPM 201703/11/2018 Inactive amiodarone 200 mg tablet RxNorm: 543010 1/2 Tablet(s) PO daily 01/29/2018 08/01/2018 Inactive Lexapro 5 mg tablet RxNorm: 382601 1 Tablet(s) PO QPM 201705/29/2018 Inactive warfarin 2 mg tablet RxNorm: 541212 1 Tablet(s) PO daily 4 days per week, 1/2 Tablet PO 3 days per week 01/29/201805/06 Inactive Tenex 1 mg tablet RxNorm: 691313 TAKE ONE TABLET BY MOUTH DAILY 01/21/2018 01/15/2019 Active acyclovir 800 mg tablet RxNorm: 358510 1 Tablet(s) PO TID use if needed for mouth sores 01/01/2018 01/14/2018 Inactive simvastatin 20 mg tablet RxNorm: 580838 TAKE ONE TABLET BY MOUTH EVERY NIGHT AT BEDTIME 12/27/2017 01/28/2018 Inactive acyclovir 800 mg tablet RxNorm: 801556 1 Tablet(s) PO TID 12/2712/31/2017 Inactive metoprolol succinate ER 50 mg tablet,extended release 24 hr RxNorm: 330452 1 Tablet(s) PO daily 12/18/2017 07/15/2018 Inactive cyanocobalamin (vit B-12) 1,000 mcg/mL injection solution RxNorm: 204924 Milliliter(s) Inj 12/18/2017 12/18/2017 Inactive prednisone 20 mg tablet RxNorm: 409402 1 Tablet(s) PO BID 12/1312/17/2017 Inactive spironolactone 25 mg tablet RxNorm: 038004 TAKE ONE TABLET BY MOUTH TWICE A DAY 12/03/2017 03/02/2018 Inactive hydrocodone 5 mg-acetaminophen 325 mg tablet RxNorm: 663960 1-2 Tablet(s) PO Q4 PRN as needed pain 11/20/2017 No Stop Date Active cyanocobalamin (vit B-12) 1,000 mcg/mL injection solution RxNorm: 886159 1 Milliliter(s) Inj 11/20/2017 11/20/2017 Inactive Lomotil 2.5 mg-0.025 mg tablet RxNorm: 3449223 Tablet(s) PO TAKE ONE TABLET BY MOUTH EVERY 8 HOURS NEEDED 11/07/2017 01/04/2018 Inactive Synthroid 50 mcg tablet RxNorm: 696759 TAKE ONE TABLET BY MOUTH EVERY DAY. 10/16/2017 04/13/2018 Inactive potassium chloride ER 20 mEq tablet,extended release(part/ cryst) RxNorm: 9088829 TAKE ONE TABLET BY MOUTH DAILY WHEN YOU TAKE LASIX (FUROSEMIDE) 09/17/2017 03/11/2018 Inactive Lasix 20 mg tablet RxNorm: 653867 Tablet(s) TAKE ONE TABLET BY MOUTH EVERY DAY NEEDED FOR SWELLING. TAKE POTASSIUM WITH EACH DOSE 201701/07/2018 Inactive glipizide 10 mg tablet RxNorm: 493200 TAKE ONE TABLET BY MOUTH TWICE A DAY 08/28/2017 04/02/2018 Inactive Request already responded to by other means (e.g. phone or fax) glipizide 10 mg tablet RxNorm: 070258 Tablet(s) TAKE ONE TABLET BY MOUTH TWICE A DAY 08/23/2017 08/27/2017 Inactive cyanocobalamin (vit B-12) 1,000 mcg/mL injection solution RxNorm: 651821 1 Milliliter(s) Inj 08/21/2017 08/21/2017 Inactive Synthroid 50 mcg tablet RxNorm: 436206 TAKE ONE TABLET BY MOUTH EVERY DAY. 08/15/2017 10/13/2017 Inactive Tricor 145 mg tablet RxNorm: 777222 TAKE ONE TABLET BY MOUTH DAILY 07/31/2017 11/27/2017 Inactive metformin ER 500 mg tablet,extended release 24 hr RxNorm: 320756 TAKE TWO TABLETS BY MOUTH TWICE A DAY 07/31/20172017 Inactive spironolactone 25 mg tablet RxNorm: 482174 TAKE ONE TABLET BY MOUTH TWICE A DAY 07/31/2017 12/02/2017 Inactive Tenex 1 mg tablet RxNorm: 676879 TAKE ONE TABLET BY MOUTH DAILY 07/20/2017 01/15/2018 Inactive cyanocobalamin (vit B-12) 1,000 mcg/mL injection solution RxNorm: 989528 1 Milliliter(s) Inj 07/18/2017 07/18/2017 Inactive Flonase Allergy Relief 50 mcg/actuation nasal spray, suspension RxNorm: 0700499 1 [place] NASAL BID 06/18/20172017 Inactive Byetta 10 mcg/dose(250 mcg/mL)2.4 mL subcutaneous pen injector RxNorm: 073739 INJECT 10 MCG UNDER THE SKIN TWO TIMES A DAY ( START AFTER 5 MCG DOSE IS COMPLETE ) 06/18/2017 04/13/2018 Inactive potassium chloride ER 20 mEq tablet,extended release(part/ cryst) RxNorm: 1428032 TAKE ONE TABLET BY MOUTH DAILY WHEN YOU TAKE LASIX (FUROSEMIDE) 06/18/2017 09/15/2017 Inactive Kenalog 40 mg/mL suspension for injection RxNorm: 6221042 1 Milliliter(s) Inj 06/18/2017 06/18/2017 Inactive cyanocobalamin (vit B-12) 1,000 mcg/mL injection solution RxNorm: 560901 1 Milliliter(s) Inj 06/18/2017 06/18/2017 Inactive Lasix 20 mg tablet RxNorm: 625838 Tablet(s) TAKE ONE TABLET BY MOUTH EVERY DAY NEEDED FOR SWELLING. TAKE POTASSIUM WITH EACH DOSE 201609/09/2017 Inactive cyanocobalamin (vit B-12) 1,000 mcg/mL injection solution RxNorm: 667234 1 Milliliter(s) Inj 05/09/2017 05/09/2017 Inactive cyanocobalamin (vit B-12) 1,000 mcg/mL injection solution RxNorm: 972740 1 Milliliter(s) Inj 04/04/2017 04/04/2017 Inactive metformin ER 500 mg tablet,extended release 24 hr RxNorm: 363493 TAKE TWO TABLETS BY MOUTH TWICE A DAY 03/01/20172016 Inactive Kenalog 40 mg/mL suspension for injection RxNorm: 9790032 1 Milliliter(s) Inj 02/23/2017 02/23/2017 Inactive amlodipine 5 mg tablet RxNorm: 174860 TAKE ONE TABLET BY MOUTH TWICE A DAY 02/22/2017 11/18/2017 Inactive glipizide 10 mg tablet RxNorm: 567002 TAKE ONE TABLET BY MOUTH TWICE A DAY 02/12/2017 08/10/2017 Inactive cyanocobalamin (vit B-12) 1,000 mcg/mL injection solution RxNorm: 080862 Milliliter(s) Inj 01/23/2017 01/23/2017 Inactive Synthroid 50 mcg tablet RxNorm: 155185 TAKE ONE TABLET BY MOUTH EVERY DAY. 12/21/2016 06/18/2017 Inactive potassium chloride ER 20 mEq tablet,extended release(part/ cryst) RxNorm: 1358690 TAKE ONE TABLET BY MOUTH DAILY WHEN YOU TAKE LASIX (FUROSEMIDE) 12/21/2016 04/19/2017 Inactive Tricor 145 mg tablet RxNorm: 112685 TAKE ONE TABLET BY MOUTH DAILY 12/21/2016 06/06/2017 Inactive Lasix 20 mg tablet RxNorm: 687198 TAKE ONE TABLET BY MOUTH EVERY DAY NEEDED FOR SWELLING. TAKE POTASSIUM WITH EACH DOSE 12/11/2016 04/09/2017 Inactive cyanocobalamin (vit B-12) 1,000 mcg/mL injection solution RxNorm: 203294 1 Milliliter(s) Inj 11/14/2016 11/14/2016 Inactive simvastatin 20 mg tablet RxNorm: 160670 TAKE ONE TABLET BY MOUTH EVERY NIGHT AT BEDTIME 10/23/2016 04/15/2017 Inactive Tenex 1 mg tablet RxNorm: 581672 TAKE ONE TABLET BY MOUTH DAILY 10/16/2016 11/14/2016 Inactive glipizide 10 mg tablet RxNorm: 566359 TAKE ONE TABLET BY MOUTH TWICE A DAY 09/20/2016 02/11/2017 Inactive doxycycline hyclate 100 mg capsule RxNorm: 3924082 1 Capsule(s) PO BID 09/12/2016 09/18/2016 Inactive doxycycline hyclate 100 mg capsule RxNorm: 2870899 1 Capsule(s) PO BID 09/12/2016 09/11/2016 Inactive Phenergan with Codeine Syrup RxNorm: 5-10 Milliliter(s) PO Q6 PRN 09/07/2016 No Stop Date Active prednisone 20 mg tablet RxNorm: 491388 1 Tablet(s) PO BID 09/0709/11/2016 Inactive Kenalog 40 mg/mL suspension for injection RxNorm: 8246094 1 Milliliter(s) Inj 09/07/2016 09/07/2016 Inactive Tessalon Perles 100 mg capsule RxNorm: 267978 1 Capsule(s) PO TID PRN 09/01/2016 09/20/2016 Inactive Zyrtec 10 mg capsule RxNorm: 9696232 1 Capsule(s) PO daily 01/28/2018 Inactive Flonase Allergy Relief 50 mcg/actuation nasal spray, suspension RxNorm: 8021978 1 [place] NASAL BID 08/29/20162016 Inactive cyanocobalamin (vit B-12) 1,000 mcg/mL injection solution RxNorm: 418340 1 Milliliter(s) Inj 08/29/2016 08/29/2016 Inactive metformin ER 500 mg tablet,extended release 24 hr RxNorm: 235178 Tablet(s) TAKE TWO TABLETS BY MOUTH TWICE A DAY 08/28/2016 02/23/2017 Inactive Lopressor 100 mg tablet RxNorm: 905290 TAKE ONE TABLET BY MOUTH DAILY 06/27/2016 04/15/2017 Inactive cetirizine 10 mg tablet RxNorm: 0025862 1 Tablet(s) PO daily 07/11/2016 Inactive Flonase Allergy Relief 50 mcg/actuation nasal spray, suspension RxNorm: 6870128 1 [place] NASAL BID 06/12/20162016 Inactive cyanocobalamin (vit B-12) 1,000 mcg/mL injection solution RxNorm: 867095 Milliliter(s) Inj 06/12/2016 06/12/2016 Inactive spironolactone 25 mg tablet RxNorm: 041479 TAKE ONE TABLET BY MOUTH TWICE A DAY 06/06/2016 03/02/2017 Inactive Request already responded to by other means (e.g. phone or fax) spironolactone 25 mg tablet RxNorm: 722612 Tablet(s) TAKE ONE TABLET BY MOUTH TWICE A DAY 05/29/2016 06/05/2016 Inactive ceftriaxone 500 mg solution for injection RxNorm: 1702863 2 Milliliter(s) Inj 05/04/2016 05/04/2016 Inactive cyanocobalamin (vit B-12) 1,000 mcg/mL injection solution RxNorm: 229366 Milliliter(s) Inj 05/04/2016 05/04/2016 Inactive Cipro 500 mg tablet RxNorm: 713758 1 Tablet(s) PO BID 201505/10/2016 Inactive OneTouch Ultra Test strips RxNorm: TEST DAILY 04/24/2016 04/18/2017 Inactive Byetta 10 mcg/dose(250 mcg/mL)2.4 mL subcutaneous pen injector RxNorm: 905172 INJECT 10 MCG UNDER THE SKIN TWO TIMES A DAY ( START AFTER 5 MCG DOSE IS COMPLETE ) 04/18/2016 03/13/2017 Inactive Lasix 20 mg tablet RxNorm: 061726 TAKE ONE TABLET BY MOUTH EVERY DAY NEEDED FOR SWELLING. TAKE POTASSIUM WITH EACH DOSE 04/07/2016 09/03/2016 Inactive potassium chloride ER 20 mEq tablet,extended release(part/ cryst) RxNorm: 2001956 TAKE ONE TABLET BY MOUTH DAILY WHEN YOU TAKE LASIX (FUROSEMIDE) 04/07/2016 09/03/2016 Inactive triamcinolone acetonide 0.5 % topical cream RxNorm: 9423281 1 Application TOP BID to lesions on buttock 03/30/20162015 Inactive metformin ER 500 mg tablet,extended release 24 hr RxNorm: 173101 TAKE TWO TABLETS BY MOUTH TWICE A DAY 03/23/20162016 Inactive cyanocobalamin (vit B-12) 1,000 mcg/mL injection solution RxNorm: 188709 Milliliter(s) Inj 03/17/2016 03/17/2016 Inactive glipizide 10 mg tablet RxNorm: 749984 TAKE ONE TABLET BY MOUTH TWICE A DAY 03/17/2016 04/02/2018 Inactive Request already responded to by other means (e.g. phone or fax) glipizide 10 mg tablet RxNorm: 778508 Tablet(s) TAKE ONE TABLET BY MOUTH TWICE A DAY 03/13/2016 03/16/2016 Inactive Tricor 145 mg tablet RxNorm: 402319 TAKE ONE TABLET BY MOUTH ONCE A DAY 02/18/2016 02/11/2017 Inactive Request already responded to by other means (e.g. phone or fax) amlodipine 5 mg tablet RxNorm: 249863 TAKE ONE TABLET BY MOUTH TWICE A DAY 02/18/2016 05/06/2018 Inactive Request already responded to by other means (e.g. phone or fax) cyanocobalamin (vit B-12) 1,000 mcg/mL injection solution RxNorm: 952359 1 Milliliter(s) Inj 02/15/2016 02/15/2016 Inactive amlodipine 5 mg tablet RxNorm: 669323 Tablet(s) TAKE ONE TABLET BY MOUTH TWICE A DAY 02/14/2016 02/17/2016 Inactive Tricor 145 mg tablet RxNorm: 583815 1 Tablet(s) PO daily TAKE ONE TABLET BY MOUTH ONCE A DAY 02/14/2016 02/17/2016 Inactive Synthroid 50 mcg tablet RxNorm: 769043 TAKE ONE TABLET BY MOUTH EVERY DAY. 01/31/2016 08/27/2016 Inactive hydrocodone 5 mg-acetaminophen 325 mg tablet RxNorm: 384552 1-2 Tablet(s) PO Q4 PRN as needed pain 01/28/2016 11/19/2017 Inactive cyanocobalamin (vit B-12) 1,000 mcg/mL injection solution RxNorm: 264235 Milliliter(s) Inj 01/19/2016 01/19/2016 Inactive metformin ER 500 mg tablet,extended release 24 hr RxNorm: 693453 TAKE TWO TABLETS BY MOUTH TWICE A DAY 01/18/20162015 Inactive cyanocobalamin (vit B-12) 1,000 mcg/mL injection solution RxNorm: 097165 1 Milliliter(s) Inj 12/07/2015 12/07/2015 Inactive metformin ER 500 mg tablet,extended release 24 hr RxNorm: 824907 TAKE TWO TABLETS BY MOUTH TWICE A DAY 10/18/20152015 Inactive simvastatin 20 mg tablet RxNorm: 830026 1 Tablet(s) PO QHS TAKE ONE TABLET BY MOUTH AT BEDTIME 10/08/2015 10/01/2016 Inactive Tenex 1 mg tablet RxNorm: 652201 TAKE ONE TABLET BY MOUTH DAILY 10/04/2015 09/27/2016 Inactive Lopressor 100 mg tablet RxNorm: 876509 TAKE ONE TABLET BY MOUTH DAILY 09/20/2015 06/15/2016 Inactive Diflucan 150 mg tablet RxNorm: 357704 1 Tablet(s) PO daily 02/201609/12/2015 Inactive cyanocobalamin (vit B-12) 1,000 mcg/mL injection kit RxNorm: 021473 kit Inj 09/06/2015 09/06/2015 Inactive gentamicin 0.3 % eye drops RxNorm: 069212 2 Drop(s) OPH QID 02/201609/12/2015 Inactive ceftriaxone 500 mg solution for injection RxNorm: 8247937 Inj 09/06/2015 09/06/2015 Inactive Keflex 500 mg capsule RxNorm: 327109 1 Capsule(s) PO TID 201509/12/2015 Inactive hydrocodone 5 mg-acetaminophen 325 mg tablet RxNorm: 968540 1-2 Tablet(s) PO Q4 PRN as needed pain 08/09/2015 01/27/2016 Inactive Lortab 5 mg-500 mg tablet RxNorm: 133821 1-2 Tablet(s) PO Q4 PRN as needed pain 08/03/2015 08/08/2015 Inactive Diflucan 150 mg tablet RxNorm: 389986 1 Tablet(s) PO daily 07/16/2015 Inactive Lasix 20 mg tablet RxNorm: 728428 TAKE ONE TABLET BY MOUTH EVERY DAY NEEDED FOR SWELLING. TAKE POTASSIUM WITH EACH DOSE 07/13/2015 01/08/2016 Inactive spironolactone 25 mg tablet RxNorm: 442023 TAKE ONE TABLET BY MOUTH TWICE A DAY 07/13/2015 05/07/2016 Inactive potassium chloride ER 20 mEq tablet,extended release(part/ cryst) RxNorm: 614062 TAKE ONE TABLET BY MOUTH DAILY WHEN YOU TAKE LASIX (FUROSEMIDE) 07/13/2015 01/08/2016 Inactive Tessalon Perles 100 mg capsule RxNorm: 661403 1 Capsule(s) PO TID PRN 07/05/2015 08/31/2016 Inactive Keflex 500 mg capsule RxNorm: 843930 1 Capsule(s) PO TID 201407/14/2015 Inactive Kenalog 40 mg/mL suspension for injection RxNorm: 1236031 Milliliter(s) Inj 07/05/2015 07/05/2015 Inactive ceftriaxone 500 mg solution for injection RxNorm: 5722742 Inj 07/05/2015 07/05/2015 Inactive cyanocobalamin (vit B-12) 1,000 mcg/mL injection solution RxNorm: 061372 Milliliter(s) Inj 06/28/2015 06/28/2015 Inactive Synthroid 50 mcg tablet RxNorm: 539723 TAKE ONE TABLET BY MOUTH EVERY DAY. 06/21/2015 11/17/2015 Inactive metformin ER 500 mg tablet,extended release 24 hr RxNorm: 054487 TAKE TWO TABLETS BY MOUTH TWICE A DAY 06/14/20152015 Inactive glipizide 10 mg tablet RxNorm: 592136 TAKE ONE TABLET BY MOUTH TWICE A DAY 05/31/2015 02/24/2016 Inactive cyanocobalamin (vit B-12) 1,000 mcg/mL injection solution RxNorm: 470722 Milliliter(s) Inj 05/13/2015 05/13/2015 Inactive Tricor 145 mg tablet RxNorm: 217454 1 Tablet(s) PO daily TAKE ONE TABLET BY MOUTH ONCE A DAY 05/07/2015 05/06/2015 Inactive Tricor 145 mg tablet RxNorm: 543876 1 Tablet(s) PO daily TAKE ONE TABLET BY MOUTH ONCE A DAY 05/07/2015 01/31/2016 Inactive Tricor 145 mg tablet RxNorm: 778026 TAKE ONE TABLET BY MOUTH ONCE A DAY 05/06/2015 05/06/2015 Inactive Byetta 10 mcg/dose(250 mcg/mL)2.4 mL subcutaneous pen injector RxNorm: 669330 Microgram(s) SQ 10mcg twice daily ( start after 5mcg dose is complete) 04/01/2015 03/25/2016 Inactive Byetta 5 mcg/dose (250 mcg/mL)1.2 mL subcutaneous pen injector RxNorm: 509564 Microgram(s) SQ 5mcg twice daily x 1 month 03/04/2015 04/02/2015 Inactive Byetta 10 mcg/dose(250 mcg/mL)2.4 mL subcutaneous pen injector RxNorm: 546162 Microgram(s) SQ 10mcg twice daily ( start after 5mcg dose is complete) 03/04/2015 03/31/2015 Inactive Byetta 5 mcg/dose (250 mcg/mL)1.2 mL subcutaneous pen injector RxNorm: 397304 Microgram(s) SQ 5mcg twice daily x 1 month 03/04/2015 03/03/2015 Inactive Byetta 10 mcg/dose(250 mcg/mL)2.4 mL subcutaneous pen injector RxNorm: 941454 Microgram(s) SQ 10mcg twice daily ( start after 5mcg dose is complete) 03/04/2015 03/03/2015 Inactive cyanocobalamin (vit B-12) 1,000 mcg/mL injection solution RxNorm: 896097 Milliliter(s) Inj 02/23/2015 02/23/2015 Inactive cyanocobalamin (vit B-12) 1,000 mcg/mL injection solution RxNorm: 280955 Milliliter(s) Inj 01/08/2015 01/08/2015 Inactive simvastatin 20 mg tablet RxNorm: 364658 TAKE ONE TABLET BY MOUTH AT BEDTIME 01/07/2015 10/03/2015 Inactive Lortab 5 mg-500 mg tablet RxNorm: 670792 1-2 Tablet(s) PO Q4 PRN as needed q 4- 6hrs prn pain 12/15/2014 08/02/2015 Inactive Lortab 5 mg-500 mg tablet RxNorm: 013728 1-2 Tablet(s) PO Q4 PRN as needed q 4- 6hrs prn pain 12/15/2014 08/02/2015 Inactive amlodipine 5 mg tablet RxNorm: 492719 TAKE ONE TABLET BY MOUTH TWICE A DAY 12/14/2014 12/13/2014 Inactive amlodipine 5 mg tablet RxNorm: 404909 TAKE ONE TABLET BY MOUTH TWICE A DAY 12/14/2014 03/13/2015 Inactive cyanocobalamin (vit B-12) 1,000 mcg/mL injection solution RxNorm: 220762 Milliliter(s) Inj 12/08/2014 12/08/2014 Inactive Synthroid 50 mcg tablet RxNorm: 843036 TAKE ONE TABLET BY MOUTH EVERY DAY. 10/29/2014 04/26/2015 Inactive Lasix 20 mg tablet RxNorm: 256785 Tablet(s) TAKE ONE TABLET BY MOUTH EVERY DAY NEEDED FOR SWELLING. TAKE POTASSIUM WITH EACH DOSE 201405/25/2015 Inactive potassium chloride ER 20 mEq tablet,extended release(part/ cryst) RxNorm: 249182 Tablet(s) TAKE ONE TABLET BY MOUTH EVERY DAY WHEN YOU TAKE LASIX (FUROSEMIDE) 10/28/2014 05/25/2015 Inactive cyanocobalamin (vit B-12) 1,000 mcg/mL injection solution RxNorm: 602661 Milliliter(s) Inj 10/26/2014 10/26/2014 Inactive OneTouch Ultra Test strips RxNorm: TEST TWO TIMES A DAY 201405/10/2028 Active OneTouch Ultra Test strips RxNorm: 1 Miscellaneous BID 201410/21/2014 Inactive dx: 250.02 Victoza 2-J Luis 0.6 mg/0.1 mL (18 mg/3 mL) subcutaneous pen injector RxNorm: 955013 1.8 Milligram(s) SQ daily 09/24/201402/22 Inactive cyanocobalamin (vit B-12) 1,000 mcg/mL injection solution RxNorm: 051088 Milliliter(s) Inj 09/24/2014 09/24/2014 Inactive Tenex 1 mg tablet RxNorm: 148649 1 Tablet(s) PO daily TAKE ONE TABLET BY MOUTH EVERY DAY 09/24/2014 10/03/2015 Inactive Lopressor 100 mg tablet RxNorm: 906100 TAKE ONE TABLET BY MOUTH EVERY DAY 09/14/2014 06/10/2015 Inactive Lopressor 100 mg tablet RxNorm: 113776 1 Tablet(s) PO daily TAKE ONE TABLET BY MOUTH EVERY DAY 09/14/2014 09/13/2014 Inactive cyanocobalamin (vit B-12) 1,000 mcg/mL injection solution RxNorm: 515835 Milliliter(s) Inj 08/24/2014 08/24/2014 Inactive [SAVINGS FOR UNINSURED PATIENTS - - BIN:[id number], PCN: [id number], Group: [id number], ID# [id number], Process claim through [employer], for questions: . THIS IS NOT INSURANCE.] Victoza 2-J Luis 0.6 mg/0.1 mL (18 mg/3 mL) subcutaneous pen injector RxNorm: 556625 1.2 Milligram(s) SQ daily 08/05/201409/23 Inactive glipizide 10 mg tablet RxNorm: 094435 TAKE ONE TABLET BY MOUTH TWICE A DAY 07/28/2014 05/23/2015 Inactive Tenex 1 mg tablet RxNorm: 824968 TAKE ONE TABLET BY MOUTH EVERY DAY 07/02/2014 07/01/2014 Inactive Tenex 1 mg tablet RxNorm: 360698 TAKE ONE TABLET BY MOUTH EVERY DAY 07/02/2014 09/23/2014 Inactive spironolactone 25 mg tablet RxNorm: 427444 TAKE ONE TABLET BY MOUTH TWICE A DAY 07/02/2014 04/27/2015 Inactive spironolactone 25 mg tablet RxNorm: 428552 Tablet(s) PO TAKE ONE TABLET BY MOUTH TWICE A DAY 06/30/2014 07/01/2014 Inactive Tenex 1 mg tablet RxNorm: 578666 Tablet(s) PO TAKE ONE TABLET BY MOUTH EVERY DAY 06/30/2014 07/01/2014 Inactive Lortab 5 mg-500 mg tablet RxNorm: 526613 1-2 Tablet(s) PO Q4 PRN as needed q 4- 6hrs prn pain 06/22/2014 12/14/2014 Inactive metformin ER 500 mg tablet,extended release 24 hr RxNorm: 264480 Tablet(s) PO TAKE TWO TABLETS BY MOUTH TWICE A DAY 06/05/2014 06/13/2015 Inactive [SAVINGS FOR UNINSURED PATIENTS -- BIN:[id number], PCN: [id number], Group: [id number], ID# [id number], Process claim through [employer], for questions: . THIS IS NOT INSURANCE.] cyanocobalamin (vit B-12) 1,000 mcg/mL injection solution RxNorm: 266354 1 Milliliter(s) Inj monthly 06/01/201406/01 Inactive Kenalog 40 mg/mL suspension for injection RxNorm: 7854035 1 Milliliter(s) Inj 05/11/2014 05/11/2014 Inactive cyanocobalamin (vit B-12) 1,000 mcg/mL injection kit RxNorm: 842034 Milliliter(s) Inj 04/27/2014 04/27/2014 Inactive amlodipine 5 mg tablet RxNorm: 838105 TAKE ONE TABLET BY MOUTH TWICE A DAY 04/02/2014 07/30/2014 Inactive cyanocobalamin (vit B-12) 1,000 mcg/mL injection kit RxNorm: 996948 1 Milliliter(s ) Inj 03/24/2014 03/24/2014 Inactive [SAVINGS FOR UNINSURED PATIENTS -- BIN:[id number] , PCN: [id number], Group: [id number], ID# [id number], Process claim through [employer], for questions: . THIS IS NOT INSURANCE.] cyanocobalamin (vit B-12) 1,000 mcg/mL injection solution RxNorm: 630492 1 Milliliter(s) Inj 03/24/2014 03/24/2014 Inactive Synthroid 50 mcg tablet RxNorm: 098001 TAKE ONE TABLET BY MOUTH EVERY DAY. 03/01/2014 09/26/2014 Inactive Lasix 20 mg tablet RxNorm: 171631 TAKE ONE TABLET BY MOUTH EVERY DAY NEEDED FOR SWELLING. TAKE POTASSIUM WITH EACH DOSE 03/01/2014 09/26/2014 Inactive potassium chloride ER 20 mEq tablet,extended release(part/ cryst) RxNorm: 601982 TAKE ONE TABLET BY MOUTH EVERY DAY WHEN YOU TAKE LASIX (FUROSEMIDE) 03/01/2014 09/26/2014 Inactive cyanocobalamin (vit B-12) 1,000 mcg/mL injection solution RxNorm: 294438 1 Milliliter(s) Inj 02/24/2014 02/24/2014 Inactive Tricor 145 mg tablet RxNorm: 150510 TAKE ONE TABLET BY MOUTH EVERY DAY 02/16/2014 02/15/2014 Inactive Victoza 2-J Luis 0.6 mg/0.1 mL (18 mg/3 mL) subcutaneous pen injector RxNorm: 786448 1.2 Milligram(s) SQ daily 02/16/201408/04 Inactive Tricor 145 mg tablet RxNorm: 631403 TAKE ONE TABLET BY MOUTH EVERY DAY 02/16/2014 06/15/2014 Inactive Synthroid 50 mcg tablet RxNorm: 586225 TAKE ONE TABLET BY MOUTH EVERY DAY. 02/02/2014 03/03/2014 Inactive Synthroid 50 mcg tablet RxNorm: 663202 TAKE ONE TABLET BY MOUTH EVERY DAY. 02/02/2014 02/01/2014 Inactive simvastatin 20 mg tablet RxNorm: 190806 TAKE ONE TABLET BY MOUTH AT BEDTIME 01/12/2014 01/06/2015 Inactive cyanocobalamin (vit B-12) 1,000 mcg/mL injection solution RxNorm: 291683 Milliliter(s) Inj 01/09/2014 01/09/2014 Inactive Lortab 5 mg-500 mg tablet RxNorm: 656231 1-2 Tablet(s) PO Q4 PRN q 4-6hrs prn pain 12/23/2013 No Stop Date Active Lasix 20 mg tablet RxNorm: 834635 Tablet(s) PO TAKE ONE TABLET BY MOUTH EVERY DAY NEEDED FOR SWELLING. TAKE POTASSIUM WITH EACH DOSE 12/201302/28/2014 Inactive potassium chloride ER 20 mEq tablet,extended release(part/ cryst) RxNorm: 516151 Tablet(s) PO TAKE ONE TABLET BY MOUTH EVERY DAY WHEN YOU TAKE LASIX (FUROSEMIDE ) 12/02/2013 02/28/2014 Inactive Lomotil 2.5 mg-0.025 mg tablet RxNorm: 5510680 Tablet(s) PO TAKE ONE TABLET BY MOUTH EVERY 8 HOURS NEEDED 11/27/2013 01/28/2018 Inactive (Appended: Controlled substance eRx refill - RxReferenceNumber: [id number]) Lomotil 2.5 mg-0.025 mg tablet RxNorm: 8779277 1 Tablet(s) PO Q8 PRN 11/27/2013 05/24/2014 Inactive cyanocobalamin (vit B-12) 1,000 mcg/mL injection solution RxNorm: 510467 1 Milliliter(s) Inj 11/27/2013 11/27/2013 Inactive Vitamin B-12 1,000 mcg/mL injection solution RxNorm: 434418 1 Milliliter(s) Inj monthly 11/24/2013 11/18/2014 Inactive ok to give multidose if available Synthroid 50 mcg tablet RxNorm: 689490 Tablet(s) PO TAKE ONE TABLET BY MOUTH EVERY DAY. 10/31/2013 02/01/2014 Inactive simvastatin 20 mg tablet RxNorm: 269452 Tablet(s) PO TAKE ONE TABLET BY MOUTH AT BEDTIME 10/10/2013 01/11/2014 Inactive Vitamin B-12 1,000 mcg/mL injection solution RxNorm: 813373 1 Milliliter(s) Inj monthly 09/30/2013 09/29/2013 Inactive ok to give multidose if available Vitamin B-12 1,000 mcg/mL injection solution RxNorm: 244615 1 Milliliter(s) Inj monthly 09/30/2013 11/23/2013 Inactive ok to give multidose if available Vitamin B-12 1,000 mcg/mL injection solution RxNorm: 044859 1 Milliliter(s) Inj 09/18/2013 09/18/2013 Inactive Lopressor 100 mg tablet RxNorm: 299854 Tablet(s) PO TAKE ONE TABLET BY MOUTH EVERY DAY 09/15/2013 09/13/2014 Inactive Vitamin B-12 1,000 mcg/mL injection solution RxNorm: 261708 1 Milliliter(s) Inj 08/22/2013 08/22/2013 Inactive glipizide 10 mg tablet RxNorm: 101359 Tablet(s) PO TAKE ONE TABLET BY MOUTH TWICE A DAY 08/15/2013 07/27/2014 Inactive Tenex 1 mg tablet RxNorm: 048809 Tablet(s) PO TAKE ONE TABLET BY MOUTH EVERY DAY 08/05/2013 06/29/2014 Inactive potassium chloride ER 20 mEq tablet,extended release(part/ cryst) RxNorm: 180558 Tablet(s) PO TAKE ONE TABLET BY MOUTH EVERY DAY WHEN YOU TAKE LASIX (FUROSEMIDE ) 07/31/2013 12/01/2013 Inactive spironolactone 25 mg tablet RxNorm: 966325 Tablet(s) PO TAKE ONE TABLET BY MOUTH TWICE A DAY 07/31/2013 06/29/2014 Inactive Lasix 20 mg tablet RxNorm: 797214 Tablet(s) PO TAKE ONE TABLET BY MOUTH EVERY DAY NEEDED FOR SWELLING. TAKE POTASSIUM WITH EACH DOSE 08/201312/01/2013 Inactive Vitamin B-12 1,000 mcg/mL injection solution RxNorm: 498108 Milliliter(s) Inj 07/28/2013 07/28/2013 Inactive Synthroid 50 mcg tablet RxNorm: 680504 Tablet(s) PO TAKE ONE TABLET BY MOUTH EVERY DAY. PATIENT DUE FOR TSH LEVEL LAB 06/30/2013 06/29/2013 Inactive Synthroid 50 mcg tablet RxNorm: 463847 Tablet(s) PO TAKE ONE TABLET BY MOUTH EVERY DAY. PATIENT DUE FOR TSH LEVEL LAB 06/30/2013 10/30/2013 Inactive potassium chloride ER 20 mEq tablet,extended release(part/ cryst) RxNorm: 368197 Tablet(s) PO TAKE ONE TABLET BY MOUTH EVERY DAY WHEN YOU TAKE LASIX (FUROSEMIDE ) 06/23/2013 07/30/2013 Inactive Lasix 20 mg tablet RxNorm: 745553 Tablet(s) PO TAKE ONE TABLET BY MOUTH EVERY DAY NEEDED FOR SWELLING. TAKE POTASSIUM WITH EACH DOSE 07/30/2013 Inactive amlodipine 5 mg tablet RxNorm: 349552 Tablet(s) PO TAKE ONE TABLET BY MOUTH TWICE A DAY 06/17/2013 04/01/2014 Inactive metformin ER 500 mg tablet,extended release 24 hr RxNorm: 715576 Tablet(s) PO TAKE TWO TABLETS BY MOUTH TWICE A DAY 05/26/2013 06/04/2014 Inactive metformin ER 500 mg tablet,extended release 24 hr RxNorm: 645366 Tablet(s) PO TAKE TWO TABLETS BY MOUTH TWICE A DAY 05/26/2013 05/25/2013 Inactive Vitamin B-12 1,000 mcg/mL injection solution RxNorm: 941873 1 Milliliter(s) Inj 05/21/2013 05/21/2013 Inactive Vitamin B-12 1,000 mcg/mL Injection RxNorm: 019965 Milliliter(s) Inj 04/23/2013 04/23/2013 Inactive Influenza Virus Vaccine 0.5 mL RxNorm: IM 04/23/2013 04/23/2013 Inactive Synthroid 50 mcg tablet RxNorm: 387809 Tablet(s) PO TAKE ONE TABLET BY MOUTH EVERY DAY. PATIENT DUE FOR TSH LEVEL LAB 04/17/2013 06/29/2013 Inactive Lasix 20 mg tablet RxNorm: 247034 Tablet(s) PO TAKE ONE TABLET BY MOUTH EVERY DAY NEEDED FOR SWELLING. TAKE POTASSIUM WITH EACH DOSE 06/22/2013 Inactive potassium chloride ER 20 mEq tablet,extended release(part/ cryst) RxNorm: 9240134 Tablet(s) PO TAKE ONE TABLET BY MOUTH EVERY DAY WHEN YOU TAKE LASIX (FUROSEMIDE ) 04/17/2013 06/22/2013 Inactive simvastatin 20 mg tablet RxNorm: 973808 Tablet(s) PO TAKE ONE TABLET BY MOUTH AT BEDTIME 04/10/2013 10/09/2013 Inactive Vitamin B-12 1,000 mcg/mL Injection RxNorm: 545232 1 Milliliter(s) Inj 03/24/2013 03/24/2013 Inactive Lopressor 100 mg tablet RxNorm: 623619 Tablet(s) PO TAKE ONE TABLET BY MOUTH EVERY DAY 03/18/2013 09/14/2013 Inactive cyanocobalamin (vitamin B-12) 1,000 mcg/mL Injection RxNorm: 932899 Milliliter(s) Inj 02/20/2013 02/20/2013 Inactive Tricor 145 mg tablet RxNorm: 646767 Tablet(s) PO TAKE ONE TABLET BY MOUTH EVERY DAY 02/14/2013 02/15/2014 Inactive Vitamin B-12 1,000 mcg/mL Injection RxNorm: 846250 1 Milliliter(s) Inj 01/22/2013 01/22/2013 Inactive potassium chloride ER 20 mEq tablet,extended release(part/ cryst) RxNorm: 9443042 1 Tablet(s) PO QDAY PRN take when taking prn lasix 201204/16/2013 Inactive Lasix 20 mg tablet RxNorm: 371911 1 Tablet(s) PO QDAY PRN daily prn swelling - to take kcl with lasix 01/22/20132012 Inactive cyanocobalamin (vitamin B-12) 1,000 mcg/mL Injection RxNorm: 240456 Milliliter(s) Inj 12/19/2012 12/19/2012 Inactive cyanocobalamin (vitamin B-12) 1,000 mcg/mL Injection RxNorm: 948416 Milliliter(s) Inj 11/20/2012 11/20/2012 Inactive Diflucan 150 mg tablet RxNorm: 072217 1 Tablet(s) PO daily 11/21/2012 Inactive Synthroid 50 mcg tablet RxNorm: 544646 Tablet(s) PO TAKE ONE TABLET BY MOUTH EVERY DAY. PATIENT DUE FOR TSH LEVEL LAB 11/18/2012 04/16/2013 Inactive Keflex 500 mg capsule RxNorm: 679621 1 Capsule(s) PO TID 201211/19/2012 Inactive Keflex 500 mg capsule RxNorm: 577340 1 Capsule(s) PO TID 201211/12/2012 Inactive Byetta 10 mcg/0.04 mL per dose Sub-Q Pen Injector RxNorm: 077033 Pen Injector SQ DIAL AND INJECT SUBCUTANEOUSLY 10 MCG TWICE DAILY WITHIN 60 MINUTES BEFORE MORNING AND EVENING MEALS. DO NOT ADMINISTER AFTER A MEAL. 04/03/2014 Inactive cyanocobalamin (vitamin B-12) 1,000 mcg/mL Injection RxNorm: 814530 1 Milliliter(s ) Inj 10/23/2012 10/23/2012 Inactive Lortab 5 mg-500 mg tablet RxNorm: 146912 1-2 Tablet(s) PO Q4 PRN q 4-6hrs prn pain 10/02/2012 12/22/2013 Inactive cyanocobalamin (vitamin B-12) 1,000 mcg/mL Injection RxNorm: 389921 Milliliter(s) Inj 09/16/2012 09/16/2012 Inactive Vitamin B-12 1,000 mcg/mL Injection RxNorm: 976286 1 Milliliter(s) Inj 08/15/2012 08/15/2012 Inactive glipizide 10 mg tablet RxNorm: 244077 Tablet(s) PO TAKE ONE TABLET BY MOUTH TWICE A DAY 08/12/2012 08/14/2013 Inactive Tenex 1 mg tablet RxNorm: 296133 Tablet(s) PO TAKE ONE TABLET BY MOUTH EVERY DAY 08/12/2012 08/04/2013 Inactive Kenalog 40 mg/mL Susp for Injection RxNorm: 6316738 1 Milliliter(s) Inj 08/06/2012 01/22/2013 Inactive spironolactone 25 mg tablet RxNorm: 200333 Tablet(s) PO TAKE ONE TABLET BY MOUTH TWICE A DAY 07/29/2012 07/30/2013 Inactive cefdinir 300 mg capsule RxNorm: 946550 1 Capsule(s) PO BID 08/01/2012 Inactive cefdinir 300 mg capsule RxNorm: 493437 1 Capsule(s) PO BID 07/25/2012 Inactive Vitamin B-12 1,000 mcg/mL Injection RxNorm: 112788 1 Milliliter(s) Inj 07/19/2012 07/19/2012 Inactive simvastatin 20 mg tablet RxNorm: 106978 Tablet(s) PO TAKE ONE TABLET BY MOUTH AT BEDTIME 07/08/2012 04/09/2013 Inactive simvastatin 20 mg tablet RxNorm: 556879 Tablet(s) PO TAKE ONE TABLET BY MOUTH AT BEDTIME 07/08/2012 10/07/2015 Inactive Synthroid 50 mcg tablet RxNorm: 835877 1 Tablet(s) PO daily 12/201110/31/2012 Inactive Please advise patient due for TSH level. amlodipine 5 mg tablet RxNorm: 141039 1 Tablet(s) PO BID 201112/15/2012 Inactive amlodipine 5 mg tablet RxNorm: 635018 1 Tablet(s) PO BID 201106/18/2012 Inactive Vitamin B-12 1,000 mcg/mL Injection RxNorm: 905858 Milliliter(s) Inj 06/19/2012 06/19/2012 Inactive Lopressor 100 mg tablet RxNorm: 019430 Tablet(s) PO 06/17/2012 03/17/2013 Inactive TAKE ONE TABLET BY MOUTH EVERY DAY Vitamin B-12 1,000 mcg/mL Injection RxNorm: 271765 Milliliter(s) Inj 05/22/2012 05/22/2012 Inactive Synthroid 50 mcg tablet RxNorm: 508923 1 Tablet(s) PO daily 06/11/2012 Inactive Please advise patient due for TSH level. Diflucan 150 mg tablet RxNorm: 395391 1 Tablet(s) PO daily 11/18/2012 Inactive metformin ER 500 mg tablet,extended release 24 hr RxNorm: 943711 2 Tablet(s) PO BID 04/25/2012 05/19/2013 Inactive Vitamin B-12 1,000 mcg/mL Injection RxNorm: 593401 Milliliter(s) Inj 04/22/2012 04/22/2012 Inactive Vitamin B-12 1,000 mcg/mL Injection RxNorm: 567693 Milliliter(s) Inj 03/19/2012 03/19/2012 Inactive Vitamin B-12 1,000 mcg/mL Injection RxNorm: 529129 Milliliter(s) Inj 02/15/2012 02/15/2012 Inactive Tricor 145 mg tablet RxNorm: 636191 1 Tablet(s) PO daily 201102/13/2013 Inactive Vitamin B-12 1,000 mcg/mL Injection RxNorm: 472510 Milliliter(s) Inj 01/18/2012 01/18/2012 Inactive Kenalog 40 mg/mL Susp for Injection RxNorm: 5549519 1 Milliliter(s) Inj 12/28/2011 12/28/2011 Inactive Vitamin B-12 1,000 mcg/mL Injection RxNorm: 251866 Milliliter(s) Inj 12/20/2011 12/20/2011 Inactive omeprazole 20 mg Cap, delayed release RxNorm: 596086 1 Capsule(s) PO daily 12/07/2011 11/30/2012 Inactive may take bid if nec cyanocobalamin (vitamin B-12) 1,000 mcg/mL Injection RxNorm: 726299 1 Milliliter(s ) Inj 11/07/2011 11/07/2011 Inactive cyanocobalamin (vitamin B-12) 1,000 mcg/mL Injection RxNorm: 451556 1 Milliliter(s ) Inj 10/03/2011 10/03/2011 Inactive Synthroid 50 mcg tablet RxNorm: 048630 1 Tablet(s) PO daily 03/08/2012 Inactive Byetta 10 mcg/0.04 mL per dose Sub-Q Pen Injector RxNorm: 136637 10 Microgram(s) SQ BID 08/29/2011 09/21/2012 Inactive metformin ER 500 mg tablet,extended release 24 hr RxNorm: 037081 2 Tablet(s) PO BID 08/15/2011 02/10/2012 Inactive cyanocobalamin (vitamin B-12) 1,000 mcg/mL Injection RxNorm: 292376 1 Milliliter(s ) Inj 07/28/2011 07/28/2011 Inactive NovoFine 30 Needle RxNorm: 1 Miscellaneous BID 07/28/2011 03/18/2013 Inactive OneTouch Ultra Test strips RxNorm: 1 Miscellaneous BID 201003/18/2013 Inactive guanfacine 1 mg Tab RxNorm: 141567 1 Tablet(s) PO daily 201007/10/2012 Inactive glipizide 10 mg tablet RxNorm: 343853 1 Tablet(s) PO BID 201008/09/2012 Inactive Tenex 1 mg tablet RxNorm: 850041 1 Tablet(s) PO daily 201008/09/2012 Inactive lisinopril 20 mg tablet RxNorm: 575512 1 Tablet(s) PO daily pt 07/04/2011 04/21/2012 Inactive pt may have #90 with year if insurance pays spironolactone 25 mg tablet RxNorm: 898083 1 Tablet(s) PO BID 07/03/2011 07/26/2012 Inactive simvastatin 20 mg Tab RxNorm: 620491 1 Tablet(s) PO QHS 201006/28/2011 Inactive cyanocobalamin (vitamin B-12) 1,000 mcg/mL Injection RxNorm: 107762 Milliliter(s) Inj 06/29/2011 06/29/2011 Inactive simvastatin 20 mg tablet RxNorm: 511867 1 Tablet(s) PO QHS 07/201006/22/2012 Inactive Lopressor 100 mg tablet RxNorm: 854625 1 Tablet(s) PO daily 06/16/2012 Inactive ketorolac 60 mg/2 mL IM RxNorm: 315003 Milliliter(s) IM 201005/23/2011 Inactive cyanocobalamin (vitamin B-12) 1,000 mcg/mL Injection RxNorm: 255000 Milliliter(s) Inj 05/23/2011 05/23/2011 Inactive Influenza Virus Vaccine 0.5 mL RxNorm: IM 04/26/2011 04/26/2011 Inactive Vitamin B-12 1,000 mcg/mL Injection RxNorm: 925718 Milliliter(s) Inj 04/26/2011 04/26/2011 Inactive Lomotil 2.5 mg-0.025 mg tablet RxNorm: 6734970 1 Tablet(s) PO Q8 PRN 04/26/2011 11/27/2013 Inactive hydralazine 10 mg tablet RxNorm: 815230 1 Tablet(s) PO TID No Start Date Active atorvastatin 10 mg tablet RxNorm: 501983 1 Tablet(s) PO QHS No Start Date Active Toujeo Max U-300 SoloStar 300 unit/mL (3 mL) subcutaneous insulin pen RxNorm: 8597234 10 Unit(s) SQ QHS increase by 4 units every 3 days until BS under 150 No Start Date Active multivitamin tablet RxNorm: 1 Tablet(s) PO daily No Start Date Active clopidogrel 75 mg tablet RxNorm: 935213 1 Tablet(s) PO daily No Start Date Active Tricor 145 mg Tab RxNorm: 696983 1 Tablet(s) PO daily No Start Date 02/07/2012 Inactive amiodarone 200 mg tablet RxNorm: 708990 1 Tablet(s) PO daily No Start Date 01/28/2018 Inactive Synthroid 50 mcg Tab RxNorm: 737768 1 Tablet(s) PO daily No Start Date 09/10/2011 Inactive lisinopril 20 mg tablet RxNorm: 733476 1 Tablet(s) PO daily No Start Date 06/18/2012 Inactive Lortab 5 mg-500 mg tablet RxNorm: 294716 1 Tablet(s) PO Q4 PRN q 4hrs prn pain No Start Date 10/01/2012 Inactive Tenex 1 mg Tab RxNorm : 730205 1 Tablet(s) PO daily No Start Date 07/16/2011 Inactive lisinopril 40 mg tablet RxNorm: 865904 Tablet(s) PO No Start Date 05/21/2012 Inactive Voltaren 1 % Topical Gel RxNorm: 700928 TOP as directed No Start Date 11/29/2015 Inactive iron 325 mg (65 mg iron) Tab RxNorm: 312893 1 Tablet(s) PO daily No Start Date 02/22/2015 Inactive Zithromax Z-J Luis 250 mg tablet RxNorm: 444410 Tablet(s) PO UD No Start Date 01/22/2013 Inactive Byetta 10 mcg/0.04 mL per dose Sub-Q Pen Injector RxNorm: 876058 Milliliter(s) SQ BID No Start Date 08/28/2011 Inactive Mouth Sore oral RxNorm : 1399 mucous membrane No Start Date 01/28/2018 Inactive cyanocobalamin (vitamin B-12) 1,000 mcg/mL Injection RxNorm: 615900 1 Milliliter(s ) Inj month No Start Date 11/30/2015 Inactive Tessalon 200 mg capsule RxNorm: 536860 1 Capsule(s) PO TID PRN No Start Date 01/21/2013 Inactive metoprolol succinate ER 100 mg tablet,extended release 24 hr RxNorm: 512785 1 Tablet(s) PO daily No Start Date 2017 Inactive Victoza 2-J Luis 0.6 mg/0.1 mL (18 mg/3 mL) subcutaneous pen injector RxNorm: 683879 1.2 Milligram(s) SQ daily No Start Date Inactive simvastatin 20 mg Tab RxNorm: 160755 1 Tablet(s) PO QHS No Start Date 06/28/2011 Inactive spironolactone 25 mg Tab RxNorm: 993226 1 Tablet(s) PO BID No Start Date 07/02/2011 Inactive Diflucan 150 mg tablet RxNorm: 781206 1 Tablet(s) PO daily No Start Date 04/24/2012 Inactive guanfacine 1 mg Tab RxNorm: 255099 1 Tablet(s) PO daily No Start Date 07/16/2011 Inactive Ativan 1 mg Tab RxNorm : 369508 1/2-1 Tablet(s) PO Q6 PRN 1/2 - 1 tab q 6 hours if needed for anxiety No Start Date 2013 Inactive metformin ER 500 mg 24 hr Tab RxNorm: 226661 2 Tablet(s) PO BID No Start Date 08/14/2011 Inactive warfarin 2 mg tablet RxNorm: 339367 1 Tablet(s) PO daily No Start Date 01/28/2018 Inactive Lopressor 100 mg Tab RxNorm: 007483 1 Tablet(s) PO daily No Start Date 06/26/2011 Inactive glipizide 10 mg Tab RxNorm: 433253 1 Tablet(s) PO BID No Start Date 07/16/2011 Inactive KCL 10 meq RxNorm: PO as directed daily when taking lasix No Start Date 01/22/2013 Inactive lisinopril 20 mg Tab RxNorm: 057815 1 Tablet(s) PO daily No Start Date 07/03/2011 Inactive One Touch Ultra Test Strips RxNorm: 1 Miscellaneous BID No Start Date 07/27/2011 Inactive aspirin 81 mg Tab, Delayed Release RxNorm: 988413 1 Tablet(s) PO daily No Start Date 01/28/2018 Inactive omeprazole 20 mg Cap, delayed release RxNorm: 618559 1 Capsule(s) PO BID No Start Date 12/06/2011 Inactive Lasix 20 mg tablet RxNorm: 011572 Tablet(s) PO as directed daily prn swelling - to take kcl with lasix No Start Date 01/21 Inactive Vitamin D 1,000 unit Tab RxNorm: 114855 1 Tablet(s) PO daily No Start Date 01/28/2018 Inactive niacin 500 mg Tab RxNorm: 834869 1 Tablet(s) PO QHS No Start Date 04/03/2014 Inactive Medication Administered Medication Codes Instructions Start Date Status Kenalog 40 mg/mL suspension for injection RxNorm: 7816947 1Milliliter 05/29/2018 No longer Active cyanocobalamin (vit B-12) 1,000 mcg/mL injection solution RxNorm: 409390 1Milliliter 05/07/2018 No longer Active cyanocobalamin (vit B-12) 1,000 mcg/mL injection solution RxNorm: 005068 Milliliter 04/04/2018 No longer Active cyanocobalamin (vit B-12) 1,000 mcg/mL injection solution RxNorm: 020488 1Milliliter 03/04/2018 No longer Active cyanocobalamin (vit B-12) 1,000 mcg/mL injection solution RxNorm: 201608 1Milliliter 01/29/2018 No longer Active cyanocobalamin (vit B-12) 1,000 mcg/mL injection solution RxNorm: 888454 Milliliter 12/18/2017 No longer Active cyanocobalamin (vit B-12) 1,000 mcg/mL injection solution RxNorm: 356640 1Milliliter 11/20/2017 No longer Active cyanocobalamin (vit B-12) 1,000 mcg/mL injection solution RxNorm: 677409 1Milliliter 08/21/2017 No longer Active cyanocobalamin (vit B-12) 1,000 mcg/mL injection solution RxNorm: 389666 1Milliliter 07/18/2017 No longer Active cyanocobalamin (vit B-12) 1,000 mcg/mL injection solution RxNorm: 360115 1Milliliter 06/18/2017 No longer Active Kenalog 40 mg/mL suspension for injection RxNorm: 1074695 1Milliliter 06/18/2017 No longer Active cyanocobalamin (vit B-12) 1,000 mcg/mL injection solution RxNorm: 884950 1Milliliter 05/09/2017 No longer Active cyanocobalamin (vit B-12) 1,000 mcg/mL injection solution RxNorm: 935639 1Milliliter 04/04/2017 No longer Active Kenalog 40 mg/mL suspension for injection RxNorm: 8210047 1Milliliter 02/23/2017 No longer Active cyanocobalamin (vit B-12) 1,000 mcg/mL injection solution RxNorm: 515735 Milliliter 01/23/2017 No longer Active cyanocobalamin (vit B-12) 1,000 mcg/mL injection solution RxNorm: 690518 1Milliliter 11/14/2016 No longer Active Kenalog 40 mg/mL suspension for injection RxNorm: 6199524 1Milliliter 09/07/2016 No longer Active cyanocobalamin (vit B-12) 1,000 mcg/mL injection solution RxNorm: 158637 1Milliliter 08/29/2016 No longer Active cyanocobalamin (vit B-12) 1,000 mcg/mL injection solution RxNorm: 889120 Milliliter 06/12/2016 No longer Active ceftriaxone 500 mg solution for injection RxNorm: 3083970 2Milliliter 05/04/2016 No longer Active cyanocobalamin (vit B-12) 1,000 mcg/mL injection solution RxNorm: 788201 Milliliter 05/04/2016 No longer Active cyanocobalamin (vit B-12) 1,000 mcg/mL injection solution RxNorm: 518608 Milliliter 03/17/2016 No longer Active cyanocobalamin (vit B-12) 1,000 mcg/mL injection solution RxNorm: 064173 1Milliliter 02/15/2016 No longer Active cyanocobalamin (vit B-12) 1,000 mcg/mL injection solution RxNorm: 693286 Milliliter 01/19/2016 No longer Active cyanocobalamin (vit B-12) 1,000 mcg/mL injection solution RxNorm: 933994 1Milliliter 12/07/2015 No longer Active cyanocobalamin (vit B-12) 1,000 mcg/mL injection kit RxNorm : 453219 kit 09/06/2015 No longer Active ceftriaxone 500 mg solution for injection RxNorm: 0832128 09/06/2015 No longer Active ceftriaxone 500 mg solution for injection RxNorm: 1198753 07/05/2015 No longer Active Kenalog 40 mg/mL suspension for injection RxNorm: 3979633 Milliliter 07/05/2015 No longer Active cyanocobalamin (vit B-12) 1,000 mcg/mL injection solution RxNorm: 871249 Milliliter 06/28/2015 No longer Active cyanocobalamin (vit B-12) 1,000 mcg/mL injection solution RxNorm: 547762 Milliliter 05/13/2015 No longer Active cyanocobalamin (vit B-12) 1,000 mcg/mL injection solution RxNorm: 960389 Milliliter 02/23/2015 No longer Active cyanocobalamin (vit B-12) 1,000 mcg/mL injection solution RxNorm: 835686 Milliliter 01/08/2015 No longer Active cyanocobalamin (vit B-12) 1,000 mcg/mL injection solution RxNorm: 381385 Milliliter 12/08/2014 No longer Active cyanocobalamin (vit B-12) 1,000 mcg/mL injection solution RxNorm: 830826 Milliliter 10/26/2014 No longer Active cyanocobalamin (vit B-12) 1,000 mcg/mL injection solution RxNorm: 591272 Milliliter 09/24/2014 No longer Active cyanocobalamin (vit B-12) 1,000 mcg/mL injection solution RxNorm: 243020 Milliliter 08/24/2014 No longer Active cyanocobalamin (vit B-12) 1,000 mcg/mL injection solution RxNorm: 916289 1Milliliter 06/01/2014 No longer Active Kenalog 40 mg/mL suspension for injection RxNorm: 7854791 1Milliliter 05/11/2014 No longer Active cyanocobalamin (vit B-12) 1,000 mcg/mL injection kit RxNorm : 588453 Milliliter 04/27/2014 No longer Active cyanocobalamin (vit B-12) 1,000 mcg/mL injection kit RxNorm : 900174 1Milliliter 03/24/2014 No longer Active cyanocobalamin (vit B-12) 1,000 mcg/mL injection solution RxNorm: 433338 1Milliliter 03/24/2014 No longer Active cyanocobalamin (vit B-12) 1,000 mcg/mL injection solution RxNorm: 989272 1Milliliter 02/24/2014 No longer Active cyanocobalamin (vit B-12) 1,000 mcg/mL injection solution RxNorm: 510426 Milliliter 01/09/2014 No longer Active cyanocobalamin (vit B-12) 1,000 mcg/mL injection solution RxNorm: 740905 1Milliliter 11/27/2013 No longer Active Vitamin B-12 1,000 mcg/mL injection solution RxNorm: 477560 1Milliliter 09/18/2013 No longer Active Vitamin B-12 1,000 mcg/mL injection solution RxNorm: 344666 1Milliliter 08/22/2013 No longer Active Vitamin B-12 1,000 mcg/mL injection solution RxNorm: 282203 Milliliter 07/28/2013 No longer Active Vitamin B-12 1,000 mcg/mL injection solution RxNorm: 326210 1Milliliter 05/21/2013 No longer Active Influenza Virus Vaccine 0.5 mL RxNorm: 04/23/2013 No longer Active Vitamin B-12 1,000 mcg/mL Injection RxNorm: 858706 Milliliter 04/23/2013 No longer Active Vitamin B-12 1,000 mcg/mL Injection RxNorm: 977034 1Milliliter 03/24/2013 No longer Active cyanocobalamin (vitamin B-12) 1,000 mcg/mL Injection RxNorm : 169397 Milliliter 02/20/2013 No longer Active Vitamin B-12 1,000 mcg/mL Injection RxNorm: 964150 1Milliliter 01/22/2013 No longer Active cyanocobalamin (vitamin B-12) 1,000 mcg/mL Injection RxNorm : 898646 Milliliter 12/19/2012 No longer Active cyanocobalamin (vitamin B-12) 1,000 mcg/mL Injection RxNorm : 924844 Milliliter 11/20/2012 No longer Active cyanocobalamin (vitamin B-12) 1,000 mcg/mL Injection RxNorm : 432686 1Milliliter 10/23/2012 No longer Active cyanocobalamin (vitamin B-12) 1,000 mcg/mL Injection RxNorm : 782346 Milliliter 09/16/2012 No longer Active Vitamin B-12 1,000 mcg/mL Injection RxNorm: 659641 1Milliliter 08/15/2012 No longer Active Vitamin B-12 1,000 mcg/mL Injection RxNorm: 015997 1Milliliter 07/19/2012 No longer Active Vitamin B-12 1,000 mcg/mL Injection RxNorm: 219743 Milliliter 06/19/2012 No longer Active Vitamin B-12 1,000 mcg/mL Injection RxNorm: 758016 Milliliter 05/22/2012 No longer Active Vitamin B-12 1,000 mcg/mL Injection RxNorm: 755377 Milliliter 04/22/2012 No longer Active Vitamin B-12 1,000 mcg/mL Injection RxNorm: 986252 Milliliter 03/19/2012 No longer Active Vitamin B-12 1,000 mcg/mL Injection RxNorm: 107658 Milliliter 02/15/2012 No longer Active Vitamin B-12 1,000 mcg/mL Injection RxNorm: 697065 Milliliter 01/18/2012 No longer Active Kenalog 40 mg/mL Susp for Injection RxNorm: 3310311 1Milliliter 12/28/2011 No longer Active Vitamin B-12 1,000 mcg/mL Injection RxNorm: 125189 Milliliter 12/20/2011 No longer Active cyanocobalamin (vitamin B-12) 1,000 mcg/mL Injection RxNorm : 207952 1Milliliter 11/07/2011 No longer Active cyanocobalamin (vitamin B-12) 1,000 mcg/mL Injection RxNorm : 512363 1Milliliter 10/03/2011 No longer Active cyanocobalamin (vitamin B-12) 1,000 mcg/mL Injection RxNorm : 511048 1Milliliter 07/28/2011 No longer Active cyanocobalamin (vitamin B-12) 1,000 mcg/mL Injection RxNorm : 784253 Milliliter 06/29/2011 No longer Active cyanocobalamin (vitamin B-12) 1,000 mcg/mL Injection RxNorm : 023887 Milliliter 05/23/2011 No longer Active ketorolac 60 mg/2 mL IM RxNorm: 425587 Milliliter 05/23/2011 No longer Active Influenza Virus Vaccine 0.5 mL RxNorm: 04/26/2011 No longer Active Vitamin B-12 1,000 mcg/mL Injection RxNorm: 950160 Milliliter 04/26/2011 No longer Active Immunizations Vaccine [...] 28.4 pg 06/07/2017 Cbc With Differential Ord2 [place]% 12.6 % 06/07/2017 Cbc With Differential Ord2 [...] 1.23 K/ul 06/07/2017 Cbc With Differential Ord2 [place] ABS# 0.7 K/ul 06/07/2017 Cbc With Differential Ord2 Eos ABS# 0.2 K/ul 06/07/2017 Cbc With Differential Ord2 Baso ABS# 0.0 K/ul 06/07/2017 Culture Urine [id number] URINE CULTURE SEE NOTES 05/08/2016 Culture Urine [id number] Continued Results 05/08/2016 Urine Culture Ucult Complete >100,000 col/ml aerobic growth sent to ref lab 05/05/2016 IRON TEST [id number] IRON TEST 44 UG/DL 07/28/2013 TSH [id number] TSH 2.104 uIU/ML 07/28/2013 CBC [id number] WBC 6.2 10e9/L 07/28/2013 CBC [id number] RBC 3.95 10e12/L 07/28/2013 CBC [id number] HGB 11.2 g/dL 07/28/2013 CBC [id number] HCT DET 34.2 % 07/28/2013 CBC [id number] MCV 86.6 fL 07/28/2013 CBC [id number] MCH 28.4 pg 07/28/2013 CBC [id number] MCHC 32.7 g/dL 07/28/2013 CBC [id number] PLT 231 10e9/L 07/28/2013 CBC 4294615 MPV 10.9 fL 07/28/2013 CBC [id number] JAZMYN % 61.0 % 07/28/2013 CBC 4181670 LY % 27.8 % 07/28/2013 CBC 2006199 MON % 8.0 % 07/28/2013 CBC [id number] EOS % 2.4 % 07/28/2013 CBC 2550301 BASO % 0.8 % 07/28/2013 CBC 6890857 RDW 14.0 % 07/28/2013 CBC [id number] ABS JAZMYN 3.78 10e9/L 07/28/2013 CBC 9291234 ABS LYMPH 1.72 10e9/L 07/28/2013 CBC [id number] ABS MONO 0.50 10e9/L 07/28/2013 CBC 1999574 ABS EOS 0.15 10e9/L 07/28/2013 CBC [id number] ABS BASO 0.05 10e9/L 07/28/2013 CBC 9772864 RDW-SD 42.9 fL 07/28/2013 %SAT/TIBC 3013697 TIBC 439 UG/DL 07/28/2013 %SAT/TIBC 8772298 % SATURAT 10 % 07/28/2013 %SAT/TIBC 8970701 UIBC 395 MCG/DL 07/28/2013 Review of Systems [...] Procedure Codes Date THER/PROPH/DIAG INJ SC/IM CPT-4: 91260 08/05/2018 VITAMIN B12 INJECTION CPT-4: J3420 08/05/2018 DRAIN/INJECT JOINT/BURSA CPT-4: 17885 05/29/2018 TRIAMCINOLONE ACET INJ NOS CPT-4: J3301 05/29/2018 THER/PROPH/DIAG INJ SC/IM CPT-4: 10324 05/07/2018 VITAMIN B12 INJECTION CPT-4: J3420 05/07/2018 FLU VAC NO PRSV 4 JINNY 3 YRS+ CPT-4: 66652 04/04/2018 ADMIN INFLUENZA VIRUS VAC CPT-4: G0008 04/04/2018 THER/PROPH/DIAG INJ SC/IM CPT-4: 92242 04/04/2018 VITAMIN B12 INJECTION CPT-4: J3420 04/04/2018 THER/PROPH/DIAG INJ SC/IM CPT-4: 21566 03/04/2018 VITAMIN B12 INJECTION CPT-4: J3420 03/04/2018 PPPS, SUBSEQ VISIT CPT -4: G0439 01/29/2018 ADMIN PNEUMOCOCCAL VACCINE SNOMED CT: 54468379 CPT-4: G0009 01/29/2018 PNEUMOCOCCAL VACC [address]: 66281836 CPT-4: 50076 01/29/2018 THER/PROPH/DIAG INJ SC/IM CPT-4: 02709 01/29/2018 VITAMIN B12 INJECTION CPT-4: J3420 01/29/2018 PRESCRIP TRANSMIT VIA ERX SY CPT-4: G8553 01/01/2018 PRESCRIP TRANSMIT VIA ERX SY CPT-4: G8553 12/27/2017 THER/PROPH/DIAG INJ SC/IM CPT-4: 41572 12/18/2017 VITAMIN B12 INJECTION CPT-4: J3420 12/18/2017 PRESCRIP TRANSMIT VIA ERX SY CPT-4: G8553 12/18/2017 THER/PROPH/DIAG INJ SC/IM CPT-4: 94751 11/20/2017 VITAMIN B12 INJECTION CPT-4: J3420 11/20/2017 THER/PROPH/DIAG INJ SC/IM CPT-4: 70703 08/21/2017 VITAMIN B12 INJECTION CPT-4: J3420 08/21/2017 THER/PROPH/DIAG INJ SC/IM CPT-4: 32890 07/18/2017 VITAMIN B12 INJECTION CPT-4: J3420 07/18/2017 TRIAMCINOLONE ACET INJ NOS CPT-4: J3301 06/18/2017 THER/PROPH/DIAG INJ SC/IM CPT-4: 08236 06/18/2017 VITAMIN B12 INJECTION CPT-4: J3420 06/18/2017 PRESCRIP TRANSMIT VIA ERX SY CPT-4: G8553 06/18/2017 THER/PROPH/DIAG INJ SC/IM CPT-4: 17716 05/09/2017 VITAMIN B12 INJECTION CPT-4: J3420 05/09/2017 ADMIN INFLUENZA VIRUS VAC CPT-4: G0008 04/25/2017 FLU VAC NO PRSV 4 JINNY 3 YRS+ CPT-4: 15758 04/25/2017 THER/PROPH/DIAG INJ SC/IM CPT-4: 65744 04/04/2017 VITAMIN B12 INJECTION CPT-4: J3420 04/04/2017 TRIAMCINOLONE ACET INJ NOS CPT-4: J3301 02/23/2017 VITAMIN B12 INJECTION CPT-4: J3420 02/23/2017 THER/PROPH/DIAG INJ SC/IM CPT-4: 01507 01/23/2017 VITAMIN B12 INJECTION CPT-4: J3420 01/23/2017 VITAMIN B12 INJECTION CPT-4: J3420 12/26/2016 THER/PROPH/DIAG INJ SC/IM CPT-4: 15433 12/26/2016 THER/PROPH/DIAG INJ SC/IM CPT-4: 77849 11/14/2016 VITAMIN B12 INJECTION CPT-4: J3420 11/14/2016 THER/PROPH/DIAG INJ SC/IM CPT-4: 77849 09/07/2016 TRIAMCINOLONE ACET INJ NOS CPT-4: J3301 09/07/2016 PRESCRIP TRANSMIT VIA ERX SY CPT-4: G8553 09/07/2016 THER/PROPH/DIAG INJ SC/IM CPT-4: 32005 08/29/2016 VITAMIN B12 INJECTION CPT-4: J3420 08/29/2016 PRESCRIP TRANSMIT VIA ERX SY CPT-4: G8553 08/29/2016 THER/PROPH/DIAG INJ SC/IM CPT-4: 62927 06/12/2016 VITAMIN B12 INJECTION CPT-4: J3420 06/12/2016 PRESCRIP TRANSMIT VIA ERX SY CPT-4: G8553 06/12/2016 URINALYSIS NONAUTO W/O SCOPE CPT-4: 70947 05/04/2016 ROCEPHIN, PER 250 MG CPT-4: J0696 05/04/2016 THER/PROPH/DIAG INJ SC/IM CPT-4: 00316 05/04/2016 VITAMIN B12 INJECTION CPT-4: J3420 05/04/2016 PRESCRIP TRANSMIT VIA ERX SY CPT-4: G8553 05/04/2016 PRESCRIP TRANSMIT VIA ERX SY CPT-4: G8553 03/30/2016 THER/PROPH/DIAG INJ SC/IM CPT-4: 77721 03/17/2016 VITAMIN B12 INJECTION CPT-4: J3420 03/17/2016 THER/PROPH/DIAG INJ SC/IM CPT-4: 36359 02/15/2016 VITAMIN B12 INJECTION CPT-4: J3420 02/15/2016 THER/PROPH/DIAG INJ SC/IM CPT-4: 41968 01/19/2016 VITAMIN B12 INJECTION CPT-4: J3420 01/19/2016 THER/PROPH/DIAG INJ SC/IM CPT-4: 01511 12/07/2015 VITAMIN B12 INJECTION CPT-4: J3420 12/07/2015 ROCEPHIN, PER 250 MG CPT-4: J0696 09/06/2015 THER/PROPH/DIAG INJ SC/IM CPT-4: 79637 09/06/2015 VITAMIN B12 INJECTION CPT-4: J3420 09/06/2015 PRESCRIP TRANSMIT VIA ERX SY CPT-4: G8553 09/06/2015 ROCEPHIN, PER 250 MG CPT-4: J0696 07/05/2015 TRIAMCINOLONE ACET INJ NOS CPT-4: J3301 07/05/2015 PRESCRIP TRANSMIT VIA ERX SY CPT-4: G8553 07/05/2015 THER/PROPH/DIAG INJ SC/IM CPT-4: 40047 06/28/2015 VITAMIN B12 INJECTION CPT-4: J3420 06/28/2015 THER/PROPH/DIAG INJ SC/IM CPT-4: 66762 05/13/2015 VITAMIN B12 INJECTION CPT-4: J3420 05/13/2015 THER/PROPH/DIAG INJ SC/IM CPT-4: 33435 02/23/2015 VITAMIN B12 INJECTION CPT-4: J3420 02/23/2015 THER/PROPH/DIAG INJ SC/IM CPT-4: 81089 01/08/2015 VITAMIN B12 INJECTION CPT-4: J3420 01/08/2015 THER/PROPH/DIAG INJ SC/IM CPT-4: 60980 12/08/2014 VITAMIN B12 INJECTION CPT-4: J3420 12/08/2014 THER/PROPH/DIAG INJ SC/IM CPT-4: 14942 10/26/2014 VITAMIN B12 INJECTION CPT-4: J3420 10/26/2014 VITAMIN B12 INJECTION CPT-4: J3420 09/24/2014 THER/PROPH/DIAG INJ SC/IM CPT-4: 94644 09/24/2014 THER/PROPH/DIAG INJ SC/IM CPT-4: 40991 08/24/2014 VITAMIN B12 INJECTION CPT-4: J3420 08/24/2014 THER/PROPH/DIAG INJ SC/IM CPT-4: 07477 07/08/2014 VITAMIN B12 INJECTION CPT-4: J3420 07/08/2014 THER/PROPH/DIAG INJ SC/IM CPT-4: 04232 06/01/2014 VITAMIN B12 INJECTION CPT-4: J3420 06/01/2014 TRIAMCINOLONE ACET INJ NOS CPT-4: J3301 05/11/2014 VITAMIN B12 INJECTION CPT-4: J3420 04/27/2014 THER/PROPH/DIAG INJ SC/IM CPT-4: 02736 04/27/2014 FLU VAC NO PRSV 4 JINNY 3 YRS+ CPT-4: 30734 04/03/2014 ADMIN INFLUENZA VIRUS VAC Assigned to/Juliana Graham CPT-4: [id number] 04/03/2014 THER/PROPH/DIAG INJ SC/IM CPT-4: 39884 03/24/2014 THER/PROPH/DIAG INJ SC/IM CPT-4: 58743 02/24/2014 THER/PROPH/DIAG INJ SC/IM CPT-4: 58492 01/09/2014 THER/PROPH/DIAG INJ SC/IM CPT-4: 89662 11/27/2013 THER/PROPH/DIAG INJ SC/IM CPT-4: 77264 09/18/2013 VITAMIN B12 INJECTION CPT-4: J3420 09/18/2013 THER/PROPH/DIAG INJ SC/IM CPT-4: 49130 08/22/2013 VITAMIN B12 INJECTION CPT-4: J3420 08/22/2013 ROUTINE VENIPUNCTURE CPT-4: 92463 07/28/2013 VITAMIN B12 INJECTION CPT-4: J3420 07/28/2013 THER/PROPH/DIAG INJ SC/IM CPT-4: 43349 07/28/2013 THER/PROPH/DIAG INJ SC/IM CPT-4: 74910 06/16/2013 VITAMIN B12 INJECTION CPT-4: J3420 06/16/2013 THER/PROPH/DIAG INJ SC/IM CPT-4: 27409 05/21/2013 VITAMIN B12 INJECTION CPT-4: J3420 05/21/2013 ADMIN INFLUENZA VIRUS VAC CPT-4: G0008 04/23/2013 FLULAVAL VACC, 3 YRS & >, IM CPT-4: Q2036 04/23/2013 VITAMIN B12 INJECTION CPT-4: J3420 04/23/2013 THER/PROPH/DIAG INJ SC/IM CPT-4: 19067 04/23/2013 THER/PROPH/DIAG INJ SC/IM CPT-4: 68885 03/24/2013 VITAMIN B12 INJECTION CPT-4: J3420 03/24/2013 THER/PROPH/DIAG INJ SC/IM CPT-4: 42111 02/20/2013 VITAMIN B12 INJECTION CPT-4: J3420 02/20/2013 VITAMIN B12 INJECTION CPT-4: J3420 01/22/2013 PRESCRIP TRANSMIT VIA ERX SY CPT-4: G8553 01/22/2013 TRIAMCINOLONE ACET INJ NOS CPT-4: J3301 12/19/2012 VITAMIN B12 INJECTION CPT-4: J3420 12/19/2012 THER/PROPH/DIAG INJ SC/IM CPT-4: 00136 11/20/2012 VITAMIN B12 INJECTION CPT-4: J3420 11/20/2012 THER/PROPH/DIAG INJ SC/IM CPT-4: 52946 10/23/2012 VITAMIN B12 INJECTION CPT-4: J3420 10/23/2012 THER/PROPH/DIAG INJ SC/IM CPT-4: 21474 09/16/2012 VITAMIN B12 INJECTION CPT-4: J3420 09/16/2012 VITAMIN B12 INJECTION CPT-4: J3420 08/15/2012 THER/PROPH/DIAG INJ SC/IM CPT-4: 19742 08/15/2012 TRIAMCINOLONE ACET INJ NOS CPT-4: J3301 08/06/2012 THER/PROPH/DIAG INJ SC/IM CPT-4: 40730 08/06/2012 PRESCRIP TRANSMIT VIA ERX SY CPT-4: G8553 08/06/2012 VITAMIN B12 INJECTION CPT-4: J3420 07/19/2012 THER/PROPH/DIAG INJ SC/IM CPT-4: 45497 07/19/2012 DRAIN/INJECT JOINT/BURSA CPT-4: 82299 07/10/2012 THER/PROPH/DIAG INJ SC/IM CPT-4: 13525 06/19/2012 VITAMIN B12 INJECTION CPT-4: J3420 06/19/2012 VITAMIN B12 INJECTION CPT-4: J3420 05/22/2012 THER/PROPH/DIAG INJ SC/IM CPT-4: 40181 05/22/2012 ADMIN INFLUENZA VIRUS VAC CPT-4: G0008 04/22/2012 FLULAVAL VACC, 3 YRS & >, IM CPT-4: Q2036 04/22/2012 VITAMIN B12 INJECTION CPT-4: J3420 04/22/2012 VITAMIN B12 INJECTION CPT-4: J3420 03/19/2012 THER/PROPH/DIAG INJ SC/IM CPT-4: 69187 03/19/2012 VITAMIN B12 INJECTION CPT-4: J3420 02/15/2012 THER/PROPH/DIAG INJ SC/IM CPT-4: 94569 02/15/2012 THER/PROPH/DIAG INJ SC/IM CPT-4: 18899 01/18/2012 VITAMIN B12 INJECTION CPT-4: J3420 01/18/2012 TRIAMCINOLONE ACET INJ NOS CPT-4: J3301 12/28/2011 DRAIN/INJECT JOINT/BURSA CPT-4: 38674 12/28/2011 VITAMIN B12 INJECTION CPT-4: J3420 12/20/2011 THER/PROPH/DIAG INJ SC/IM CPT-4: 04014 12/20/2011 VITAMIN B12 INJECTION CPT-4: J3420 11/07/2011 THER/PROPH/DIAG INJ SC/IM CPT-4: 80494 11/07/2011 VITAMIN B12 INJECTION CPT-4: J3420 10/03/2011 THER/PROPH/DIAG INJ SC/IM CPT-4: 78147 10/03/2011 TRIAMCINOLONE ACET INJ NOS CPT-4: J3301 08/23/2011 DRAIN/INJECT JOINT/BURSA CPT-4: 95210 08/23/2011 THER/PROPH/DIAG INJ SC/IM CPT-4: 73296 08/23/2011 VITAMIN B12 INJECTION CPT-4: J3420 08/23/2011 VITAMIN B12 INJECTION CPT-4: J3420 07/28/2011 THER/PROPH/DIAG INJ SC/IM CPT-4: 60076 07/28/2011 VITAMIN B12 INJECTION CPT-4: J3420 06/29/2011 THER/PROPH/DIAG INJ SC/IM CPT-4: 85293 06/29/2011 KETOROLAC TROMETHAMINE INJ CPT-4: J1885 05/23/2011 VITAMIN B12 INJECTION CPT-4: J3420 05/23/2011 THER/PROPH/DIAG INJ SC/IM CPT-4: 95250 05/23/2011 ADMIN INFLUENZA VIRUS VAC CPT-4: G0008 04/26/2011 FLULAVAL VACC, 3 YRS & >, IM CPT-4: Q2036 04/26/2011 VITAMIN B12 INJECTION CPT-4: J3420 04/26/2011 THER/PROPH/DIAG INJ SC/IM CPT-4: 14890 04/26/2011 Vital Signs Date Vital 08/05/2018 Blood Pressure 1: 150/78 Code : 8480-6 BMI: 36.0 Code : 18458-2 Heart Rate 1 : 51 bpm Height: 5'6" SpO2: 92% Weight: 223 lbs 05/29/2018 Blood Pressure 1: 120/64 Code : 8480-6 BMI: 35.5 Code : 46111-5 Heart Rate 1 : 58 bpm Height: 5'6" SpO2: 96% Weight: 220 lbs 05/07/2018 Blood Pressure 1: 130/60 Code : 8480-6 BMI: 35.5 Code : 74576-9 Heart Rate 1 : 60 bpm Height: 5'6" SpO2: 97% Weight: 220 lbs 01/29/2018 Blood Pressure 1: 150/80 Code : 8480-6 BMI: 35.5 Code : 28829-7 Heart Rate 1 : 68 bpm Height: 5'6" SpO2: 97% Waist Measure (cm): 109 cm Weight: 220 lbs 01/01/2018 Blood Pressure 1: 136/68 Code : 8480-6 BMI: 35.2 Code : 86638-3 Heart Rate 1 : 60 bpm Height: 5'6" Respiratory Rate: 16 bpm SpO2: 98% Weight: 218 lbs 12/27/2017 Height: Weight: 12/18/2017 Blood Pressure 1: 118/62 Code : 8480-6 BMI: 36.2 Code : 90501-9 Heart Rate 1 : 45 bpm Height: 5'6" SpO2: 98% Weight: 224 lbs 12/13/2017 Blood Pressure 1: 138/88 Code : 8480-6 Heart Rate 1: 92 bpm Height: SpO2: 98% Weight: 06/18/2017 Blood Pressure 1: 134/68 Code : 8480-6 BMI: 35.8 Code : 44312-3 Heart Rate 1 : 50 bpm Height: 5'6" SpO2: 98% Weight: 222 lbs 06/07/2017 Blood Pressure 1: 146/68 Code : 8480-6 BMI: 35.3 Code : 27772-4 Heart Rate 1 : 63 bpm Height: 5'6" SpO2: 99% Weight: 218 lbs 8 04/16/2017 Blood Pressure 1: 130/62 Code : 8480-6 BMI: 34.7 Code : 77653-0 Heart Rate 1 : 51 bpm Height: 5'6" SpO2: 94% Weight: 215 lbs 02/23/2017 Blood Pressure 1: 136/64 Code : 8480-6 BMI: 35.0 Code : 72650-0 Heart Rate 1 : 54 bpm Height: 5'6" SpO2: 96% Weight: 217 lbs 12/26/2016 Blood Pressure 1: 144/74 Code : 8480-6 BMI: 34.5 Code : 78805-1 Heart Rate 1 : 60 bpm Height: 5'6" SpO2: 97% Weight: 214 lbs 09/07/2016 Blood Pressure 1: 138/62 Code : 8480-6 Heart Rate 1: 86 bpm SpO2: 96% Temperature: 36.8 (C) / 98.2 (F) Weight: 207 lbs 08/29/2016 Blood Pressure 1: 132/58 Code : 8480-6 BMI: 33.9 Code : 09061-8 Heart Rate 1 : 55 bpm Height: 5'6" SpO2: 98% Weight: 210 lbs 06/12/2016 Blood Pressure 1: 128/76 Code : 8480-6 BMI: 33.2 Code : 30181-8 Heart Rate 1 : 57 bpm Height: 5'6" SpO2: 97% Weight: 206 lbs 05/04/2016 Blood Pressure 1: 130/72 Code : 8480-6 BMI: 33.9 Code : 24999-3 Heart Rate 1 : 74 bpm Height: 5'6" SpO2: 96% Temperature: 36.9 (C) / 98.5 (F) Weight: 210 lbs 03/30/2016 Blood Pressure 1: 116/66 Code : 8480-6 BMI: 34.3 Code : 75615-1 Heart Rate 1 : 67 bpm Height: 5'6" SpO2: 98% Weight: 212 lbs 8 oz 11/30/2015 Blood Pressure 1: 138/64 Code : 8480-6 BMI: 35.2 Code : 21612-3 Heart Rate 1 : 59 bpm Height: 5'6" SpO2: 98% Weight: 218 lbs 09/06/2015 Blood Pressure 1: 138/668 Code: 8480-6 BMI: 35.3 Code: 49572-0 Heart Rate 1: 68 bpm Height: 5'6" Weight: 219 lbs 08/04/2015 Blood Pressure 1: 140/82 Code : 8480-6 Heart Rate 1: 62 bpm SpO2: 98% Weight: 220 lbs 07/05/2015 Blood Pressure 1: 122/80 Code : 8480-6 BMI: 36.0 Code : 44218-7 Heart Rate 1 : 63 bpm Height: 5'6" SpO2: 97% Temperature: 36.3 (C) / 97.3 (F) Weight: 223 lbs 06/28/2015 Blood Pressure 1: 150/74 Code : 8480-6 BMI: 36.3 Code : 72349-1 Heart Rate 1 : 65 bpm Height: 5'6" SpO2: 96% Weight: 225 lbs 02/23/2015 Blood Pressure 1: 142/64 Code : 8480-6 BMI: 37.0 Code : 47109-0 Heart Rate 1 : 56 bpm Height: 5'6" SpO2: 96% Weight: 229 lbs 01/08/2015 Blood Pressure 1: 128/88 Code : 8480-6 BMI: 37.3 Code : 24694-3 Heart Rate 1 : 74 bpm Height: 5'6" Weight: 231 lbs 09/24/2014 Blood Pressure 1: 128/70 Code : 8480-6 BMI: 36.8 Code : 90319-4 Heart Rate 1 : 68 bpm Height: 5'6" SpO2: 96% Weight: 228 lbs 05/11/2014 Blood Pressure 1: 148/82 Code : 8480-6 Height: Temperature: 36.2 (C) / 97.2 (F) Weight: 05/01/2014 Blood Pressure 1: 128/68 Code : 8480-6 BMI: 36.6 Code : 38489-5 Heart Rate 1 : 74 bpm Height: 5'6" Weight: 227 lbs 04/03/2014 Blood Pressure 1: 130/72 Code : 8480-6 BMI: 36.8 Code : 80889-9 Heart Rate 1 : 76 bpm Height: 5'6" Weight: 228 lbs 11/24/2013 Blood Pressure 1: 146/64 Code : 8480-6 BMI: 35.5 Code : 64389-0 Heart Rate 1 : 64 bpm Height: 5'6" Weight: 220 lbs 08/22/2013 Weight: 223 lbs 07/28/2013 Blood Pressure 1: 112/68 Code : 8480-6 BMI: 36.2 Code : 64097-7 Heart Rate 1 : 80 bpm Height: 5'6" Weight: 224 lbs 06/16/2013 Blood Pressure 1: 132/60 Code : 8480-6 BMI: 37.6 Code : 97924-5 Heart Rate 1 : 72 bpm Height: 5'6" Weight: 233 lbs 01/22/2013 Blood Pressure 1: 130/64 Code : 8480-6 BMI: 37.3 Code : 93415-1 Heart Rate 1 : 80 bpm Height: 5'6" Weight: 231 lbs 10/02/2012 Blood Pressure 1: 146/90 Code : 8480-6 BMI: 36.8 Code : 41544-1 Heart Rate 1 : 60 bpm Height: [...] Code : 8480-6 BMI: 37.1 Code : 67705-7 Heart Rate 1 : 60 bpm Height: 5'6" Respiratory Rate: 16 bpm Weight: 230 lbs 12/20/2011 Blood Pressure 1: 142/66 Code : 8480-6 BMI: 35.8 Code : 79677-6 Heart Rate 1 : 66 bpm Height: [...] Code : 8480-6 BMI: 36.2 Code : 56182-2 Heart Rate 1 : 64 bpm Height: [...] None knee pain Quality intermittent 06/28/2015 seeing [employer] Synvisc hypertension Blood Pressure Values patient checking [...] lesion Location on the right cheek 01/22/2013 hindu area edema Quality painful 01/22/2013 None edema [...] data Encounters Encounter Performer Location Codes Date [id number]) [id number] EST. PATIENT, LEVEL IV Diagnosis: Essential (primary) hypertension[ICD10: I10] Diagnosis: Type 2 diabetes mellitus with hyperglycemia[ICD10: E11.65] Diagnosis: Chronic kidney disease, stage 3 (moderate)[ICD10: N18.3] Chantell Garcia MD , [facility] CPT-4: 00904 08/05/2018 01646 EST. PATIENT, LEVEL III Diagnosis: Sacrococcygeal disorders, not elsewhere classified[ICD10: M53.3] Diagnosis: Low back pain[ICD10: M54.5] Diagnosis: Sciatica, right side[ICD10: M54.31] Yady Garcia MD, [facility] CPT-4: 03450 05/29/[id number]) 84513 EST. PATIENT, LEVEL IV Diagnosis: Type 2 diabetes mellitus without complications[ICD10: E11.9] Diagnosis: Chronic kidney disease, stage 3 (moderate)[ICD10: N18.3] Diagnosis: Essential (primary) hypertension[ICD10: I10] Diagnosis: Other vitamin B12 deficiency anemias[ICD10: D51.8] Chantell Garcia MD, [facility] CPT-4: 85920 05/07/2018 [id number]) [id number] EST. PATIENT, LEVEL IV Diagnosis: Type 2 diabetes mellitus without complications[ICD10: E11.9] Diagnosis: Essential (primary) hypertension[ICD10: I10] Diagnosis: Chronic atrial fibrillation[ICD10: I48.2] Daisy Garcia MD, [facility] CPT-4: 98329 01/01/2018 [id number] EST. 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 PATIENT, LEVEL IV Diagnosis: Type 2 diabetes mellitus with hyperglycemia[ICD10: E11.65] Diagnosis: Essential (primary) hypertension[ICD10: I10] Diagnosis: Pain in left knee[ICD10: M25.562] Diagnosis: Other vitamin B12 deficiency anemias[ICD10: D51.8] Daisy Garcia MD, [facility] CPT-4: 01917 12/18/2017 [id number] EST. PATIENT, LEVEL III Diagnosis: Pain in left knee[ICD10: M25.562] Yady Garcia MD, [facility] CPT -4: 21721 12/13/2017 ([id number]) 09623 EST. PATIENT, LEVEL IV Diagnosis: Type 2 diabetes mellitus without complications[ICD10: E11.9] Diagnosis: Essential (primary) hypertension[ICD10: I10] Diagnosis: Other vitamin B12 deficiency anemias[ICD10: D51.8] Diagnosis: Allergic rhinitis due to animal (cat) (dog) hair and dander[ICD10: J30.81] Daisy Garcia MD, [facility] CPT-4: 68617 2016 ([id number]) 07820 EST. 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 PATIENT, LEVEL IV Diagnosis: Type 2 diabetes mellitus without complications[ICD10: E11.9] Diagnosis: Essential (primary) hypertension[ICD10: I10] Diagnosis: Chronic atrial fibrillation[ICD10: I48.2] Daisy Garcia MD, [facility] CPT-4: 83805 04/16/2017 ([id number]) 84842 EST. PATIENT, LEVEL III Diagnosis: Sciatica, left side[ICD10: M54.32] Diagnosis: Sacroiliitis, not elsewhere classified[ICD10: M46.1] Chantell Garcia MD, [facility] CPT-4: 92437 02/23/2017 ([id number]) 19638 EST. PATIENT, LEVEL IV Diagnosis: Type 2 diabetes mellitus without complications[ICD10: E11.9] Diagnosis: Essential (primary) hypertension[ICD10: I10] Daisy Garcia MD, [facility] CPT-4: 92237 12/26/2016 ([id number]) 52720 EST. PATIENT, LEVEL III Diagnosis: Cough[ICD10: R05] Diagnosis: Acute bronchitis, unspecified[ICD10: J20.9] Chantell Garcia MD, [facility] CPT-4: 18598 09/07/2016 ([id number]) 76181 EST. PATIENT, LEVEL IV Diagnosis: Type 2 diabetes mellitus without complications[ICD10: E11.9] Diagnosis: Cough[ICD10: R05] Diagnosis: Acute laryngopharyngitis[ICD10: J06.0] Diagnosis: Acute recurrent maxillary sinusitis[ICD10: J01.01] Daisy Garcia MD, [facility] CPT-4: 44779 08/29/2016 83946 EST. PATIENT, LEVEL IV Diagnosis: Other allergic rhinitis[ICD10: J30.89] Diagnosis: Other vitamin B12 deficiency anemias[ICD10: D51.8] Yady Garcia MD, [facility] CPT-4: 43767 06/12/2016 ([id number]) 04106 EST. PATIENT, LEVEL III Diagnosis: Urinary tract infection, site not specified[ICD10: N39.0] Diagnosis: Fever, unspecified[ICD10: R50.9] Diagnosis: Other vitamin B12 deficiency anemias[ICD10: D51.8] Chantell Garcia MD, [facility] CPT-4: 52130 05/04/2016 ([id number]) 23165 EST. 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 PATIENT, LEVEL IV Diagnosis: Type 2 diabetes mellitus with hyperglycemia[ICD10: E11.65] Diagnosis: Essential (primary) hypertension[ICD10: I10] Daisy Garcia MD, [facility] CPT-4: 83197 11/30/2015 ([id number]) 48411 EST. PATIENT, LEVEL III Diagnosis: Acute recurrent maxillary sinusitis[ICD10: J01.01] Diagnosis: Unspecified acute conjunctivitis, right eye[ICD10: H10.31] Diagnosis: Vitamin B12 deficiency anemia, unspecified[ICD10: D51.9] Chantell Garcia MD , [facility] CPT-4: 93458 09/06/2015 33227 EST. PATIENT, LEVEL III Diagnosis: Pain in right knee[ICD10: M25.561] Diagnosis: Essential (primary) hypertension[ICD10: I10] Diagnosis: Vitamin B12 deficiency anemia, unspecified[ICD10: D51.9] Yady Garcia MD, [facility] CPT-4: 86343 08/04/2015 ([id number]) 38226 EST. PATIENT, LEVEL III Diagnosis: Streptococcal pharyngitis[ICD10: J02.0] Diagnosis: Acute recurrent maxillary sinusitis[ICD10: J01.01] Chantell Garcia MD, [facility] CPT-4: 65235 07/05/2015 ([id number]) 99337 EST. PATIENT, LEVEL IV Diagnosis: Type 2 diabetes mellitus with hyperglycemia[ICD10: E11.65] Diagnosis: Essential (primary) hypertension[ICD10: I10] Diagnosis: Vitamin B12 deficiency anemia, unspecified[ICD10: D51.9] Daisy Garcia MD, [facility] CPT-4: 98603 06/28/2015 ([id number]) 19271 EST. PATIENT, LEVEL IV Diagnosis: DM W/O COMPLICATION TYPE II, UNCONTROLLED[ICD9: 250.02] Diagnosis: ESSENTIAL HYPERTENSION[ICD9: 401.9] Diagnosis: Iron deficiency[ICD9: 280.9] Diagnosis: OTH SCREENING MAMMOGRAM[ICD9: V76.12] Diagnosis: B12 deficiency[ICD9: 266.2] Daisy Garcia MD, [facility] CPT- 4: 20091 02/23/2015 ([id number]) 19103 EST. PATIENT, LEVEL IV Diagnosis: DM W/O COMPLICATION TYPE II, UNCONTROLLED[ICD9: 250.02] Diagnosis: ESSENTIAL HYPERTENSION[ICD9: 401.9] Diagnosis: Right knee pain[ICD9: 719.46] Diagnosis: B12 deficiency[ICD9: 266.2] Chantell Garcia MD, [facility] CPT-4: 00730 01/08/2015 ([id number]) 14395 EST. PATIENT, LEVEL IV Diagnosis: DM W/O COMPLICATION TYPE II, UNCONTROLLED[ICD9: 250.02] Diagnosis: ESSENTIAL HYPERTENSION[ICD9: 401.9] Diagnosis: Iron deficiency[ICD9: 280.9] Daisy Garcia MD, [facility] CPT- 4: 54979 09/24/2014 ([id number]) 27753 EST. PATIENT, LEVEL III Diagnosis: Sacroiliitis[ICD9: 720.2] Diagnosis: Left sided sciatica[ICD9: 724.3] Chantell Garcia MD, [facility] CPT-4: 77666 05/11/2014 ([id number]) 24356 EST. PATIENT, LEVEL III Diagnosis: CELLULITIS OF BUTTOCK[ICD9: 682.5] Daisy Garcia MD, [facility] CPT-4: 84757 05/01/2014 74745 EST. PATIENT, LEVEL IV Diagnosis: ESSENTIAL HYPERTENSION[ICD9: 401.9] Diagnosis: DIABETES TYPE II[ICD9: 250.00] Diagnosis: Iron deficiency[ICD9: 280.9] Diagnosis: LUMBAGO[ICD9: 724.2] Daisy Garcia MD, [facility] CPT-4: 29809 04/03/2014 ([id number]) 61365 EST. PATIENT, LEVEL IV Diagnosis: ESSENTIAL HYPERTENSION[SNOMED: 97856838] Diagnosis: DIABETES TYPE II[SNOMED: 018678843] Diagnosis: ANEMIA[ICD9: 285.9] Diagnosis: Iron deficiency[ICD9: 280.9] Daisy Garcia MD, [facility] CPT- 4: 50393 11/24/2013 ([id number]) 05221 EST. PATIENT, LEVEL IV Diagnosis: ESSENTIAL HYPERTENSION[SNOMED: 24776019] Diagnosis: DIABETES TYPE II[SNOMED: 710722608] Diagnosis: EDEMA[ICD9: 782.3] Daisy Garcia MD, [facility] CPT-4: 90625 07/28/2013 ([id number]) 44797 EST. PATIENT, LEVEL IV Diagnosis: ESSENTIAL HYPERTENSION[SNOMED: 76540636] Diagnosis: DIABETES TYPE II[SNOMED: 994348482] Diagnosis: EDEMA[ICD9: 782.3] Diagnosis: B-COMPLEX DEFIC NEC[ICD9: 266.2] Daisy Garcia MD, [facility] CPT-4: 50520 06/16/2013 ([id number]) 08981 EST. PATIENT, LEVEL IV Diagnosis: ESSENTIAL HYPERTENSION[SNOMED: 31945651] Diagnosis: DIABETES TYPE II[SNOMED: 905491536] Diagnosis: EDEMA[ICD9: 782.3] Diagnosis: B-COMPLEX DEFIC NEC[ICD9: 266.2] Daisy Garcia MD, [facility] [place] CPT-4: 86859 01/22/2013 ([id number]) 43826 EST. PATIENT, LEVEL III Diagnosis: Lumbago[ICD9: 724.2] Diagnosis: Sacroiliitis[ICD9: 720.2] Diagnosis: ESSENTIAL HYPERTENSION[SNOMED: 21495888] Daisy Garcia MD, [facility] CPT-4: 96280 10/02/2012 ([id number]) 39084 EST. PATIENT, LEVEL III Diagnosis: ACUTE URI[ICD9: 465.9] Daisy Garcia MD, [facility] CPT-4: 52385 08/06/2012 ([id number]) 02921 EST. PATIENT, LEVEL IV Diagnosis: ESSENTIAL HYPERTENSION[SNOMED: 78890680] Diagnosis: DIABETES TYPE II[SNOMED: 000581705] Diagnosis: ANEMIA[ICD9: 285.9] Daisy Garcia MD [facility] CPT-4: 09802 07/04/2012 ([id number]) 14431 EST. PATIENT, LEVEL IV Diagnosis: ESSENTIAL HYPERTENSION[SNOMED: 93945903] Diagnosis: DIABETES TYPE II[SNOMED: 782380165] Diagnosis: B-COMPLEX DEFIC NEC[ICD9: 266.2] Daisy [facility] MD, [facility] [place] CPT-4: 66406 05/22/2012 ([id number]) 37729 EST. PATIENT, LEVEL IV Diagnosis: ESSENTIAL HYPERTENSION[SNOMED: 94336239] Diagnosis: DIABETES TYPE II[SNOMED: 776272078] Diagnosis: LUMBAGO[ICD9: 724.2] Diagnosis: B-COMPLEX DEFIC NEC[ICD9: 266.2] Daisy Garcia MD, [facility] CPT-4: 06173 04/22/2012 26629 EST. PATIENT, LEVEL III Diagnosis: Sciatica of right side[ICD9: 724.3] Diagnosis: Sacroiliitis[ICD9: 720.2] Chantell Garcia MD, [facility] CPT-4: 83819 12/28/2011 ([id number]) 06087 EST. PATIENT, LEVEL IV Diagnosis: DIABETES TYPE II[SNOMED: 085447354] Diagnosis: ESSENTIAL HYPERTENSION[SNOMED: 20481114] Daisy Garcia MD, [facility] CPT-4: 31048 12/20/2011 ([id number]) 26618 EST. PATIENT, LEVEL IV Diagnosis: ESSENTIAL HYPERTENSION[SNOMED: 25184125] Diagnosis: DIABETES TYPE II[SNOMED: 265781583] Diagnosis: PAIN IN LIMB[ICD9: 729.5] Diagnosis: LUMBAGO[ICD9: 724.2] Diagnosis: Sacroiliitis[ICD9: 720.2] Daisy Garcia MD, [facility] CPT-4: 14879 08/23/2011 19793 EST. PATIENT, LEVEL III Diagnosis: Sacroiliitis[ICD9: 720.2] Diagnosis: Right sided sciatica[ICD9: 724.3] Diagnosis: B-COMPLEX DEFIC NEC[ICD9: 266.2] Chantell Garcia MD, [facility] CPT-4: 67229 05/23/2011 08037 EST. PATIENT, LEVEL IV Diagnosis: DIABETES TYPE II[SNOMED: 933603363] Diagnosis: ESSENTIAL HYPERTENSION[SNOMED: 63569105] Diagnosis: Feces incontinence[ICD9: 787.60] Daisy Garcia MD, [facility] CPT-4: 63561 04/26/2011 Plan of Care Planned Activity Notes [...] they worsen. 05/29/2018 Appointment: Yady Harper WPtel: [address] [place], [place] [address] (15 min) Moderate 05/29/2018 Patient Education: Patient [...] at home. 01/01/2018 Appointment: Daisy Garcia WPtel: [facility] (15 min) Moderate 01/01/2018 Patient Education: [...] weekend. 12/27/2017 App[facility]ment: [phone] [facility] ([facility] min) Moderate 12/27/2017 Patient Education: [...] Garcia WPtel: [facility] (15 min) Moderate 12/18/2017 Patient Education: Patient Medication Summary Completed 12/18/2017 Care Plan: COMPLETE CBC AUTOMATED LOINC : 81132-6 Pending 12/18/2017 Visit Plan: Left knee pain - will have pt use RICE - Rest, Ice, Compression, Elevation - will order x-ray - The pt is to use prn antiinflammatories to manage acute pain. The patient is to call the office if the pain is worsening or does not improve. 12/13/2017 Appointment: [facility] Harper [facility] (30 min) Complex 12/13/2017 Patient Education: Patient Medication Summary Completed 12/13/2017 Care Plan: X-RAY EXAM OF KNEE 3 LOINC : 70605-1 Pending 12/13/2017 Appointment: Injection 11/20/2017 Patient Education: Patient Medication Summary Completed 11/20/2017 Appointment: Daisy Garcia WPtel: [facility] [place] (15 min) Moderate 09/18/2017 Appointment: [...] today. 06/18/2017 Appointment: Daisy Garcia WPtel: [facility] (15 min) Moderate 06/18/2017 Patient Education: [...] 5 days 06/07/2017 Appointment: Daisy Garcia [facility]Ptel[facility] (15 min) Moderate 06/07/2017 Patient Education: Patient Medication Summary Completed 06/07/2017 Patient Education: Obesity Completed 06/07/2017 Appointment: Injection 05/09/2017 Patient Education: Patient Medication Summary Completed 05/09/2017 Appointment: Daisy Garcia WPtel[facility] (15 min) Moderate 04/26/2017 Patient Education: [...] cardizem 04/16/2017 App[facility]ment: Daisy [facility] [facility] [place] (15 min) Moderate 04/16/2017 Appointment: Daisy [facility] [facility] [place] (15 min) Moderate 04/16/2017 Patient [...] controlled. 12/26/2016 Appointment: Daisy Garcia WPtel: [phone] [facility] (15 min) Moderate 12/26/2016 Patient Education: Patient Medication Summary Completed 12/26/2016 Appointment: Injection 11/14/2016 Patient Education: Patient Medication Summary Completed 11/14/2016 Visit Plan: Bronchitis - acute case of bronchitis identified. Pt has been given antibiotics, breathing treatments as appropriate, and pt has been instructed to call if symptoms are not improved, or if symptoms acutely worsen. 09/07/2016 Appointment: Chantlel Singh WPtel: [phone] [phone] [place] (30 min) Complex 09/07/2016 Patient [...] show improvement. 08/29/2016 Appointment: Daisy Garcia WPtel: [phone] [facility] (15 min) Moderate 08/29/2016 Patient Education: Patient Medication Summary Completed 08/29/2016 Patient Education: Obesity Completed 08/29/2016 Appointment: Daisy Garcia WPtel: [address] [facility] (15 min) Moderate 08/22/2016 Appointment: Daisy Garcia WPtel: [address] [facility] (15 min) Moderate 08/02/2016 Appointment: Chantell Singh WPtel: [phone] [phone] (30 min) Complex 08/02/2016 Visit Plan: [...] allergy spray. 06/12/2016 Appointment: Yady Harper WPtel: [facility] (15 [...] office 05/04/2016 Appointment: Chantell Singh WPtel: [phone] [phone] [place] (15 min) Moderate 05/04/2016 Patient [...] triamcinalone cream. 03/30/2016 Appointment: Daisy [facility] [facility] (15 min) Moderate 03/30/2016 Patient Education: Patient Medication Summary Completed 03/30/2016 Patient Education: Hypertension Completed 03/30/2016 Appointment: Injection 03/17/2016 Patient Education: Patient Medication Summary Completed 03/17/2016 Appointment: Injection 02/15/2016 Patient Education: Patient Medication Summary Completed 02/15/2016 Appointment: Daisy [facility] [facility] [place] (15 min) Moderate 01/26/2016 Appointment: [...] acute concerns. 11/30/2015 Appointment: Daisy [phone] [facility] (15 min) Moderate 11/30/2015 Patient Education: Patient Medication Summary Completed 11/30/2015 Patient Education: Obesity Completed 11/30/2015 Appointment: Daisy [facility] [phone] [facility] (15 min) Moderate 10/26/2015 Visit Plan: [...] home. 06/28/2015 Appointment: Daisy [facility] [facility] (15 min) Moderate 06/28/2015 Patient Education: [...] without resting. 02/23/2015 Appointment: Daisy Garcia WPtel: [facility] Follow up 02/23/2015 Patient Education: Patient Medication Summary Completed 02/23/2015 Patient Education: Hypertension Completed 02/23/2015 Care Plan: SCREENINGMAMMOGRAPHYDIGITAL LOINC : 46467-8 Ordered 02/23/2015 Visit Plan: Depression - uncontrolled [...] Care Plan: COMPLETE CBC AUTOMATED LOINC : 98254-3 Ordered 01/08/2015 Appointment: Injection 12/08/2014 Patient Education: [...] diarrhea. 09/24/2014 Appointment: Daisy Garcia [facility]el[phone] [facility] Follow up 09/24/2014 Patient Education: Patient Medication Summary Completed 09/24/2014 Patient Education: Hypertension Completed 09/24/2014 Appointment: Daisy Garcia [facility]el[facility] [phone] [facility] [place] Injection 08/24/2014 Patient Education: Patient [...] warmth, discharge. 05/01/2014 Appointment: Daisy Garcia WPtel: [facility] [place] Follow up 05/01/2014 Patient Education: Patient Medication Summary Completed 05/01/2014 Appointment: Daisy Garcia WPtel: [address] [place], [place] [address] [place] Injection 04/27/2014 Patient Education: Patient Medication [...] Singh [facility]Ptel[facility] Follow up 04/03/2014 Patient Education: Patient Medication Summary Completed 04/03/2014 Patient Education: Hypertension Completed 04/03/2014 Visit Plan: vitamin b12 injection 03/24/2014 Appointment: Daisy Garcia WPtel: [address] [place], [place] [address] [place] Injection 03/24/2014 Patient Education: Patient Medication Summary Completed 03/24/2014 Appointment: Daisy Garcia WPtel: [address] [place] [address] [place] Follow up 03/23/2014 Appointment: Daisy [facility]el[facility] [address] [facility] [place] Injection 02/24/2014 Patient Education: Patient Medication Summary Completed 02/24/2014 Appointment: [facility]antell [facility]el: [phone] [facility] [place] Injection 01/09/2014 Patient Education: [...] oral supplementation. 11/24/2013 Appointment: Daisy Garcia WPtel: [facility] [place] Follow up 11/24/2013 Patient Education: Patient Medication Summary Completed 11/24/2013 Patient Education: Hypertension Completed 11/24/2013 Appointment: Daisy Garcia WPtel: [facility] [place] Follow up 11/12/2013 Appointment: Daisy Garcia WPtel: [facility] [place] Follow up 10/27/2013 Appointment: [facility]antell Singh [facility]Ptel[facility] [phone] [facility] [place] Injection 09/18/2013 Patient Education: Patient Medication Summary Completed 09/18/2013 Appointment: Chantell Singh [facility]Ptel: [address] [facility] [place] Injection 08/22/2013 Patient Education: [...] today 07/28/2013 Appointment: Daisy [facility]el[facility] [facility] Follow up 07/28/2013 Patient Education: Patient Medication Summary Completed 07/28/2013 Patient Education: Hypertension Completed 07/28/2013 Appointment: Chantell Singh [facility]Ptel[facility] [phone] [facility] [place] Injection 06/20/2013 Visit Plan: [...] edema. 06/16/2013 Appointment: Daisy Garcia [facility]Ptel[facility] [address] [facility] [place] Follow up 06/16/2013 Patient Education: Patient Medication Summary Completed 06/16/2013 Patient Education: Hypertension Completed 06/16/2013 Appointment: [facility]antell Singh [facility]Ptel: [phone] [facility] [place] Injection 05/21/2013 Patient Education: Patient Medication Summary Completed 05/21/2013 Appointment: Daisy Garcia [facility]Ptel: [address] [facility] [place] Injection 04/23/2013 Patient Education: Patient Medication Summary Completed 04/23/2013 Appointment: Daisy Garcia [facility]Ptel: [address] [facility] [place] Injection 03/24/2013 Patient Education: Patient Medication Summary Completed 03/24/2013 Appointment: Daisy Garcia [facility]Ptel: [address] [facility] [place] Injection 02/20/2013 Patient Education: Patient [...] edema. 01/22/2013 Appointment: Daisy Garcia WPtel: [phone] [facility] [place] Follow up 01/22/2013 Patient Education: Patient Medication Summary Completed 01/22/2013 Patient Education: Hypertension Completed 01/22/2013 Appointment: Daisy Garcia [facility]Ptel: [phone] [facility] [place] Injection 01/21/2013 Patient Education: Patient Medication Summary Completed 12/19/2012 Appointment: Daisy [facility]Ptel[facility] [facility] [place] Injection 11/22/2012 Appointment: Daisy [facility]Ptel[facility] [facility] [place] Injection 11/20/2012 Patient Education: Patient Medication Summary Completed 11/20/2012 Appointment: Chantell Singh [facility]Ptel: [facility] [facility] [place] Injection 11/08/2012 Appointment: Daisy [facility]Ptel[facility] [facility] [place] Injection 10/23/2012 Patient Education: Patient [...] Completed 10/02/2012 Appointment: Chantell Singh WPtel: [phone] [phone] Lab Draw 09/16/2012 Patient Education: Patient [...] the office. 08/06/2012 Appointment: Chantell Singh WPtel: [phone] [phone] [facility] 08/06/2012 Patient Education: Patient Medication Summary Completed 08/06/2012 Patient Education: Patient Medication Summary Completed 07/19/2012 Visit Plan: Joint Injection - Pt was given post - injection instructions. The pt has been advised to use antiinflammatories post injection today, ice to the injected site, call if redness, warmth, or increased pain occurs at the site of injection. 07/10/2012 Appointment: Daisy Garcia [facility]Ptel[facility] [phone] [facility] [place] Injection 07/10/2012 Patient Education: Patient [...] controlled. 07/04/2012 Appointment: Arnold Garciay [facility]Ptel: [phone] [facility] Follow up 07/04/2012 Patient Education: Patient Medication Summary Completed 07/04/2012 Patient Education: Hypertension Completed 07/04/2012 Appointment: Daisy Garcia [facility]Ptel[facility] [facility] [place] Injection 06/19/2012 Patient Education: Patient [...] office. 05/22/2012 Appointment: [facility]el[phone] [facility] Follow up 05/22/2012 Appointment: Chantell Singh [facility]Ptel: [address] [facility] Follow up 05/22/2012 Patient Education: [...] office 04/22/2012 Appointment: Chantell Singh WPtel: [phone] [phone] Established Patient Preventative visit 04/22/2012 Patient Education: Patient Medication Summary Completed 04/22/2012 Patient Education: High Blood Pressure: Essential Hypertension Completed 2011 Appointment: Chantell Singh [facility]Ptel: [address] [phone] [place] Injection 03/19/2012 Patient Education: Patient Medication Summary Completed 03/19/2012 Appointment: Daisy Garcia [facility]Ptel: [facility] [facility] [place] Injection 02/15/2012 Patient Education: Patient Medication Summary Completed 02/15/2012 Appointment: Daisy Garcia [facility]Ptel: [address] [facility] [place] Injection 01/18/2012 Patient Education: Patient [...] worse. 12/28/2011 Appointment: Chantell Singh [facility]Ptel: [address] [facility] [place] Other 12/28/2011 Patient Education: Patient Medication [...] today. 12/20/2011 Appointment: Daisy Garcia [facility]Ptel: [address] [facility] [place] Other 12/20/2011 Patient Education: Patient Medication Summary Completed 12/20/2011 Patient Education: High Blood Pressure: Essential Hypertension Completed 2011 Appointment: Chantell Singh [facility]Ptel: [address] [facility] [place] Injection 11/07/2011 Patient Education: Patient Medication Summary Completed 11/07/2011 Appointment: Daisy Garcia [facility]el: [facility] [facility] [place] Injection 10/03/2011 Patient Education: Patient Medication Summary Completed 10/03/2011 Appointment: Daisy Garcia [facility]Ptel: [address] [facility] [place] Injection 08/28/2011 Visit Plan: Hypertension [...] left today 08/23/2011 Appointment: Daisy Garcia WPtel: [phone] [facility] Other 08/23/2011 Patient Education: Patient Medication Summary Completed 08/23/2011 Patient Education: High Blood Pressure: Essential Hypertension Completed 2011 Appointment: Chantell Singh WPtel: [phone] [phone] [place] Injection 07/28/2011 Patient Education: Patient Medication Summary Completed 07/28/2011 Visit Plan: b12 injection 06/29/2011 Appointment: Chantell Singh WPtel: [phone] [phone] [place] Injection 06/29/2011 Patient Education: Patient [...] Chantell Singh WPtel: [phone] Other 05/23/2011 Patient Education: Patient Medication [...] Daisy Garcia WPtel: [facility] Other 04/26/2011 Patient Education: Patient Medication [...] going to schedule surgery with him. . flu shot today b12 shot today CALL SUNDAY IF NOT BETTER-ZPACK OR DOXYCYCLINE [...] use hydrocodone as needed for pain . Diabetes Mellitus - controlled - per [...] probiotic three times daily x 5 days Monitor your blood pressure at home and [...] Vitamin B12 deficiency - shot today. . Hypertension - well controlled [...] SI joint on the left today . Sinusitis - Pt has acute infection [...] into affected eye four times daily. . vitamin b12 injection . Hypertension - [...] are starting to become less controlled. . Apthous ulcer of mouth/mouth pain - [...] readings are starting to become less controlled. CHECK LABS BEFORE YOUR NEXT APPOINTMENT BRING [...] Patient verbalized understanding. . Diabetes Mellitus - Uncontrolled - per [...] office B12 injection today in the office IPRO placement tomorrow . Hypertension - well [...] -stopped glipizide and bymakenzie -monitor labs . URI-cough- Pt advised to increase fluids, [...] is to look at the cost of adam and guerda. Handicap plaque order given to patient - severe OA - needs knee replacement and the patient needs the plaque for now due to inability to walk 100 feet without resting. . Urinary Tract Infection-discussed natural and expected [...] Call if symptoms do not show improvement. check hgba1c in 12 weeks. Diabetes Mellitus [...]
[2018-10-02 07:30] LABS: HEMOGLOBIN 10.5 G/DL (11.5-16.0); MEAN PLATELET VOLUME 10.2 FL (7.4-10.4); RED CELL DISTRIBUTION WIDTH 15.2 % (10.0-14.5); WHITE BLOOD COUNT 4.5 10^3/uL (4.3-11.0)
[2018-10-02] MEDS ORDERED: AMLO5TAB9 PO (07:41)
[2018-10-02] MEDS ORDERED: INSU300I3 SQ (07:41)
[2018-10-02] MEDS ORDERED: WARF-47 PO (07:41)
[2018-10-02] MEDS ORDERED: ASPI-983 PO (07:41)
[2018-10-02] MEDS ORDERED: LISI-556 PO (07:41)
[2018-10-02 07:43] LABS: INR 2.2 (0.8-1.4); PROTHROMBIN TIME PATIENT 24.1 SEC (12.2-14.7)
[2018-10-02 07:56] LABS: ALBUMIN 3.8 GM/DL (3.2-4.5); BILIRUBIN,TOTAL 0.8 MG/DL (0.1-1.0); CALCIUM 9.6 MG/DL (8.5-10.1); CREATININE SERUM 1.27 MG/DL (0.60-1.30); POTASSIUM 3.7 MMOL/L (3.6-5.0); TOTAL PROTEIN 6.6 GM/DL (6.4-8.2)
--- NOTE | 2018-10-02 07:56 | Diagnostic Imaging Report ---
INDICATION: AFIB,CAD,HTN,HLP. TECHNIQUE: Frontal view of the chest. COMPARISON: 07/17/2018 FINDINGS: Lung volumes are mildly large. There is a small left pleural effusion with associated airspace opacities. There is cardiomegaly which appears similar to the prior exam. 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 There is mild central vascular congestion which appears stable. No pneumothorax is seen. IMPRESSION: 1. New small left pleural effusion with associated atelectasis. 2. Stable cardiomegaly with central vascular congestion. Dictated by: Dictated on workstation # [id number]
--- OUTSIDE RECORDS SUMMARY | 2018-10-02 08:05 | XMS REPORT | Continuity of Care Document ---
Author Author [facility] Organization [facility] Address Unknown Phone Unavailable Allergies Active Description Code Type Severity Reaction Onset Reported/Identified Relationship to Patient Clinical Status Yes No Known Drug Allergies [id number] Drug Allergy Unknown N/A 09/28/2014 Yes Sulfa (Sulfonamide Antibiotics) [id number] Drug Allergy Unknown N/A 2016 Yes TAPE TAPE Unknown N/A 04/05/2017 Medications There is no data. Problems Date Dx Coded Attending Type Code Diagnosis Diagnosed By 12/01/2014 SANDY GARCIA MD Ot 280.9 12/27/2014 SANDY GARCIA MD Ot 280.9 IRON DEFIC ANEMIA NOS 04/15/2015 ENRIQUE HESTER RECORDER HELPER GRAVITY PROSPECTING Ot V76.12 04/11/2016 Ot V76.12 OTH SCREEN [...] IRON DEFIC ANEMIA NOS 04/11/2016 ENRIQUE HESTER RECORDER HELPER GRAVITY PROSPECTING Ot V76.12 OTH SCREEN MAMMO-MALIGN NEOPLASM OF [place] 04/12/2016 TASH GILL RECORDER HELPER GRAVITY PROSPECTING Ot Z12.31 ENCNTR SCREEN MAMMOGRAM FOR MALIGNANT NE 04/12/2016 TASH GILL APRN Ot Z12.31 ENCNTR SCREEN MAMMOGRAM FOR MALIGNANT NE 05/03/2016 TASH GILL RECORDER HELPER GRAVITY PROSPECTING Ot Z12.31 ENCNTR SCREEN MAMMOGRAM FOR MALIGNANT [...] IRON DEFIC ANEMIA NOS 04/05/2017 ENRIQUE HESTER RECORDER HELPER GRAVITY PROSPECTING Ot V76.12 OTH SCREEN MAMMO-MALIGN NEOPLASM OF [place] 04/05/2017 TASH GILL RECORDER HELPER GRAVITY PROSPECTING Ot Z12.31 ENCNTR SCREEN MAMMOGRAM FOR MALIGNANT NE 04/05/2017 Ot V76.12 OTH SCREEN MAMMO-MALIGN NEOPLASM OF [place] 04/05/2017 Ot 724.2 LUMBAGO 04/05/2017 Ot 738.4 ACQ SPONDYLOLISTHESIS 04/05/2017 SANDY GARCIA MD Ot V76.12 OTH SCREEN MAMMO-MALIGN NEOPLASM OF [place] 04/05/2017 SANDY GARCIA MD Ot V76.12 OTH SCREEN MAMMO-MALIGN NEOPLASM OF [place] 04/05/2017 SANDY GARCIA MD Ot 280.9 IRON DEFIC ANEMIA NOS 04/05/2017 ENRIQUE HESTER RECORDER HELPER GRAVITY PROSPECTING Ot V76.12 OTH SCREEN MAMMO-MALIGN NEOPLASM OF [place] 04/05/2017 TASH GILL RECORDER HELPER GRAVITY PROSPECTING Ot Z12.31 ENCNTR SCREEN MAMMOGRAM FOR MALIGNANT [...] MD Ot I25.119 ATHSCL HEART DISEASE OF [place] COR ART W 04/08/2017 SANDY GARCIA MD Ot I48.0 PAROXYSMAL ATRIAL FIBRILLATION 04/08/2017 SISI BAILEY, SANDY Briones Ot Z79.84 WELL PULLER HEAD (CURRENT) USE OF ORAL HYPOGLYC 04/10/2017 TASH GILL RECORDER HELPER GRAVITY PROSPECTING Ot Z12.31 ENCNTR SCREEN MAMMOGRAM FOR MALIGNANT NE 05/18/2017 TASH GILL RECORDER HELPER GRAVITY PROSPECTING Ot Z12.31 ENCNTR SCREEN MAMMOGRAM FOR MALIGNANT NE 12/14/2017 TASH GILL RECORDER HELPER GRAVITY PROSPECTING Ot M25.562 PAIN IN LEFT KNEE 12/14/2017 TASH GILL RECORDER HELPER GRAVITY PROSPECTING Ot W19.XXXA UNSPECIFIED FALL, INITIAL ENCOUNTER 12/14/2017 TASH GILL RECORDER HELPER GRAVITY PROSPECTING Ot M25.562 PAIN IN LEFT KNEE 12/14/2017 TASH GILL RECORDER HELPER GRAVITY PROSPECTING Ot W19.XXXA UNSPECIFIED FALL, INITIAL ENCOUNTER 01/02/2018 TASH GILL RECORDER HELPER GRAVITY PROSPECTING Ot M25.562 PAIN IN LEFT KNEE 01/02/2018 TASH GILL RECORDER HELPER GRAVITY PROSPECTING Ot W19.XXXA UNSPECIFIED FALL, INITIAL ENCOUNTER 05/13/2018 NURIA LINDERP Ot Z12.31 ENCNTR SCREEN MAMMOGRAM FOR MALIGNANT NE 05/20/2018 SISI BAILEY, SANDY Briones Ot V76.12 OTH SCREEN MAMMO-MALIGN NEOPLASM OF [place] 05/20/2018 SISI BAILEY, SANDY Briones Ot V76.12 OTH SCREEN MAMMO-MALIGN NEOPLASM OF [place] 05/20/2018 SISI BAILEY, SANDY Briones Ot 280.9 IRON DEFIC ANEMIA NOS 05/20/2018 ENRIQUE HESTER RECORDER HELPER GRAVITY PROSPECTING Ot V76.12 OTH SCREEN MAMMO-MALIGN NEOPLASM OF [place] 05/20/2018 TASH GILL RECORDER HELPER GRAVITY PROSPECTING Ot Z12.31 ENCNTR SCREEN MAMMOGRAM FOR MALIGNANT NE 05/20/2018 TASH GILL RECORDER HELPER GRAVITY PROSPECTING Ot Z12.31 ENCNTR SCREEN MAMMOGRAM FOR MALIGNANT NE 05/20/2018 TASH GILL RECORDER HELPER GRAVITY PROSPECTING Ot M25.562 PAIN IN LEFT KNEE 05/20/2018 TASH GILL RECORDER HELPER GRAVITY PROSPECTING Ot W19.XXXA UNSPECIFIED FALL, INITIAL ENCOUNTER 05/20/2018 NURIA LINDER RESPIRATORY CARE INSTRUCTOR Ot Z12.31 ENCNTR SCREEN MAMMOGRAM FOR MALIGNANT NE 05/22/2018 NURIA LINDER RESPIRATORY CARE INSTRUCTOR Ot Z12.31 ENCNTR SCREEN MAMMOGRAM FOR MALIGNANT NE 06/21/2018 MARIELLE FERNANDEZ, KEIKO Yanez Ot E78.2 MIXED HYPERLIPIDEMIA 06/21/2018 MARIELLE FERNANDEZ KEIKO K Ot I10 ESSENTIAL (PRIMARY) HYPERTENSION 06/21/2018 MARIELLE FERNANDEZ, KEIKO K Ot I25.10 ATHSCL HEART DISEASE OF [place] CORONARY 06/21/2018 MARIELLE FERNANDEZ KEIKO K Ot I48.0 PAROXYSMAL ATRIAL FIBRILLATION 06/21/2018 MARIELLE FERNANDEZ KEIKO K Ot 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 06/25/2018 MARIELLE FERNANDEZ KEIKO K Ot E78.2 MIXED HYPERLIPIDEMIA 06/25/2018 MARIELLE FERNANDEZ KEIKO K Ot I10 ESSENTIAL (PRIMARY) HYPERTENSION 06/25/2018 MARIELLE FERNANDEZ KEIKO K Ot I25.10 ATHSCL HEART DISEASE OF [place] CORONARY 06/25/2018 MARIELLE FERNANDEZ KEIKO K Ot I48.0 PAROXYSMAL ATRIAL FIBRILLATION 06/25/2018 MARIELLE FERNANDEZ KEIKO K Ot 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 06/25/2018 SISI BAILEY, SANDY Briones Ot V76.12 OTH SCREEN MAMMO-MALIGN NEOPLASM OF [place] 06/25/2018 SANDY GARCIA MD Ot V76.12 OTH SCREEN MAMMO-MALIGN NEOPLASM OF [place] 06/25/2018 SISI BAILEY, SANDY Briones Ot 280.9 IRON DEFIC ANEMIA NOS 06/25/2018 ENRIQUE HESTER RECORDER HELPER GRAVITY PROSPECTING Ot V76.12 OTH SCREEN MAMMO-MALIGN NEOPLASM OF [place] 06/25/2018 TASH GILL RECORDER HELPER GRAVITY PROSPECTING Ot Z12.31 ENCNTR SCREEN MAMMOGRAM FOR MALIGNANT NE 06/25/2018 TASH GILL RECORDER HELPER GRAVITY PROSPECTING Ot Z12.31 ENCNTR SCREEN MAMMOGRAM FOR MALIGNANT NE 06/25/2018 TASH GILL RECORDER HELPER GRAVITY PROSPECTING Ot M25.562 PAIN IN LEFT KNEE 06/25/2018 TASH GILL RECORDER HELPER GRAVITY PROSPECTING Ot W19.XXXA UNSPECIFIED FALL, INITIAL ENCOUNTER 06/25/2018 NURIA LINDER Ot Z12.31 ENCNTR SCREEN MAMMOGRAM FOR MALIGNANT NE 06/25/2018 MARIELLE FERNANDEZ KEIKO K Ot E78.2 MIXED HYPERLIPIDEMIA 06/25/2018 MARIELLE FERNANDEZ, KEIKO Yanez Ot I10 ESSENTIAL (PRIMARY) HYPERTENSION 06/25/2018 MARIELLE JIM KEIKO Yanez Ot I25.10 ATHSCL HEART DISEASE OF [place] CORONARY 06/25/2018 MARIELLE JIM KEIKO Yanez Ot I48.0 PAROXYSMAL ATRIAL FIBRILLATION 06/25/2018 MARIELLE JIM KEIKO Yanez Ot 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 06/27/2018 ANTHONYSANTOS FERNANDEZ KEIKO Yanez Ot E78.5 HYPERLIPIDEMIA, UNSPECIFIED 06/27/2018 MARIELLE JIM KEIKO K Ot I10 ESSENTIAL (PRIMARY) HYPERTENSION 06/27/2018 MARIELLE JIM KEIKO Yanez Ot I25.10 ATHSCL HEART DISEASE OF [place] CORONARY 06/27/2018 MARIELLE JIM KEIKO Yanez Ot I34.0 NONRHEUMATIC MITRAL (VALVE) INSUFFICIENC 06/27/2018 MARIELLE JIM KEIKO Yanez Ot I48.91 UNSPECIFIED ATRIAL FIBRILLATION 07/03/2018 HESTER-SANTOS FERNANDEZ KEIKO Yanez Ot I10 ESSENTIAL (PRIMARY) HYPERTENSION 07/03/2018 MARIELLE JIM KEIKO Yanez Ot I25.10 ATHSCL HEART DISEASE OF [place] CORONARY 07/03/2018 MARIELLE JIM KEIKO Yanez Ot I48.0 PAROXYSMAL ATRIAL FIBRILLATION 07/03/2018 MARIELLE JIM KEIKO Yanez Ot I65.23 OCCLUSION AND STENOSIS OF BILATERAL [place] 07/11/2018 HESTERTERRENCE JIM EKIKO Yanez Ot E78.2 MIXED HYPERLIPIDEMIA 07/11/2018 HESTER-SANTOS FERNANDEZ KEIKO Yanez Ot I10 ESSENTIAL (PRIMARY) HYPERTENSION 07/11/2018 HESTER-SANTOS FERNANDEZ KEIKO Yanez Ot I25.10 ATHSCL HEART DISEASE OF [place] CORONARY 07/11/2018 HESTERTERRENCE JIM KEIKO Yanez Ot I48.0 PAROXYSMAL ATRIAL FIBRILLATION 07/11/2018 HESTER-SANTOS FERNANDEZ KEIKO Yanez Ot 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 07/17/2018 NATALIA BAILEY, MILADIS Clement Ot E11.9 TYPE 2 DIABETES MELLITUS WITHOUT COMPLIC 07/17/2018 NATALIA BAILEY, MILADIS Clement Ot E78.5 HYPERLIPIDEMIA, UNSPECIFIED 07/17/2018 MILADIS FISHER MD Ot I10 ESSENTIAL (PRIMARY) HYPERTENSION 07/17/2018 MILADIS FISHER MD Ot I25.10 ATHSCL HEART DISEASE OF [place] CORONARY 07/17/2018 MILADIS FISHER MD Ot I48.2 CHRONIC ATRIAL FIBRILLATION 07/17/2018 MILADIS FISHER MD Ot I65.23 OCCLUSION AND STENOSIS OF BILATERAL [place] 07/17/2018 MILADIS FISHER MD Ot R00.1 BRADYCARDIA, UNSPECIFIED 07/17/2018 MILADIS FISHER MD Ot R07.9 CHEST PAIN, UNSPECIFIED 07/17/2018 MILADIS FISHER MD Ot Z79.01 SKILLED NURSING (CURRENT) USE OF ANTICOAGULANT 07/17/2018 MILADIS FISHER MD Ot Z79.899 OTHER SKILLED NURSING (CURRENT) DRUG THERAPY 07/17/2018 MILADIS FISHER MD Ot Z96.659 PRESENCE OF UNSPECIFIED ARTIFICIAL KNEE 07/19/2018 MILADIS FISHER MD Ot E11.9 TYPE 2 DIABETES MELLITUS WITHOUT COMPLIC 07/19/2018 MILADIS FISHER MD Ot E78.5 HYPERLIPIDEMIA, UNSPECIFIED 07/19/2018 MILADIS FISHER MD Ot I10 ESSENTIAL (PRIMARY) HYPERTENSION 07/19/2018 MILADIS FISHER MD Ot I25.10 ATHSCL HEART DISEASE OF [place] CORONARY 07/19/2018 MILADIS FISHER MD Ot I48.2 CHRONIC ATRIAL FIBRILLATION 07/19/2018 MILADIS FISHER MD Ot I65.23 OCCLUSION AND STENOSIS OF BILATERAL [place] 07/19/2018 MILADIS FISHER MD Ot R00.1 BRADYCARDIA, UNSPECIFIED 07/19/2018 MILADIS FISHER MD Ot R07.9 CHEST PAIN, UNSPECIFIED 07/19/2018 MILADIS FISHER MD Ot Z79.01 SKILLED NURSING (CURRENT) USE OF ANTICOAGULANT 07/19/2018 MILADIS FISHER MD Ot Z79.899 OTHER SKILLED NURSING (CURRENT) DRUG THERAPY 07/19/2018 MILADIS FISHER MD Ot Z96.659 PRESENCE OF UNSPECIFIED ARTIFICIAL KNEE 07/19/2018 MILADIS FISHER MD Ot E11.9 TYPE 2 DIABETES MELLITUS WITHOUT COMPLIC 07/19/2018 MILADIS FISHER MD Ot E78.5 HYPERLIPIDEMIA, UNSPECIFIED 07/19/2018 MILADIS FISHER MD Ot I10 ESSENTIAL (PRIMARY) HYPERTENSION 07/19/2018 MILADIS FISHER MD, Ot I25.10 ATHSCL HEART DISEASE OF [place] CORONARY 07/19/2018 MILADIS FISHER MD Ot I48.2 CHRONIC ATRIAL FIBRILLATION 07/19/2018 MILADIS FISHER MD, Ot I65.23 OCCLUSION AND STENOSIS OF BILATERAL [place] 07/19/2018 MILADIS FISHER MD Ot R00.1 BRADYCARDIA, UNSPECIFIED 07/19/2018 MILADIS FISHER MD Ot R07.9 CHEST PAIN, UNSPECIFIED 07/19/2018 MILADIS FISHER MD, Ot Z79.01 SKILLED NURSING (CURRENT) USE OF ANTICOAGULANT 07/19/2018 MILADIS FISHER MD, Ot Z79.899 OTHER WELL PULLER HEAD (CURRENT) DRUG THERAPY 07/19/2018 MILADIS FISHER MD, Ot Z96.659 PRESENCE OF UNSPECIFIED ARTIFICIAL KNEE 07/19/2018 KEIKO BENTON Ot E78.5 HYPERLIPIDEMIA, UNSPECIFIED 07/19/2018 KEIKO BENTON Ot I10 ESSENTIAL (PRIMARY) HYPERTENSION 07/19/2018 KEIKO BENTON Ot I25.10 ATHSCL HEART DISEASE OF [place] CORONARY 07/19/2018 KEIKO BENTON Ot I34.0 NONRHEUMATIC MITRAL (VALVE) INSUFFICIENC 07/19/2018 KEIKO BENTON Ot I48.91 UNSPECIFIED ATRIAL FIBRILLATION 07/27/2018 KEIKO BENTON Ot I10 ESSENTIAL (PRIMARY) HYPERTENSION 07/27/2018 KEIKO BENTON Ot I25.10 ATHSCL HEART DISEASE OF [place] CORONARY 07/27/2018 KEIKO BENTON Ot I48.0 PAROXYSMAL ATRIAL FIBRILLATION 07/27/2018 KEIKO BENTON Ot I65.23 OCCLUSION AND STENOSIS OF BILATERAL [place] 08/05/2018 DEX BAILEY, CLARE Penn Ot N18.3 CHRONIC KIDNEY DISEASE, STAGE 3 (MODERAT 08/05/2018 CLARE KOWALSKI MD Ot N28.1 CYST OF KIDNEY, ACQUIRED 08/06/2018 EDUARDO BAILEY, THERESE Berg Ot I25.10 ATHSCL HEART DISEASE OF [place] CORONARY 08/20/2018 CLARE KOWALSKI MD, Ot I25.10 ATHSCL HEART DISEASE OF [place] CORONARY 08/20/2018 CLARE KOWALSKI MD, Ot N18.3 CHRONIC KIDNEY DISEASE, STAGE 3 (MODERAT 08/20/2018 CLARE KOWALSKI MD, Ot N28.1 CYST OF KIDNEY, ACQUIRED 08/22/2018 CLARE KOWALSKI MD, Ot I25.10 ATHSCL HEART DISEASE OF [place] CORONARY 08/22/2018 CLARE KOWALSKI MD, Ot N18.3 CHRONIC KIDNEY DISEASE, STAGE 3 (MODERAT 08/22/2018 CLARE KOWALSKI MD, Ot N28.1 CYST OF KIDNEY, ACQUIRED Procedures Code Description Performed By Performed On [id number] DILATION OF 1 COR ART WITH DRUG-ELUT INT 04/06/2017 [id number] MEASURE OF CARDIAC SAMPL PRESSURE, L H 04/06/2017 [id number] FLUOROSCOPY OF MULT COR ART USING L [...] Cholesterol 159 mg/dL 100-240 HDL 31 mg/dL 30-85 LDL-Calculated 89 mg/dL 0-100 Trig 196 mg/dL [...] Cholesterol 154 mg/dL 100-240 HDL 34 mg/dL 30-85 LDL-Calculated 96 mg/dL 0-100 Trig 119 mg/dL [...] 14:40 THYROID STIMULATING HORMONE 3.00 u[iU]/mL 0.35-4.94 Complete urinalysis with reflex to culture - 07/17/18 07:07 Urine color determination YELLOW NRG Urine clarity determination CLEAR NRG Urine pH measurement by test strip 5 5-9 Specific gravity of urine by test strip 1.025 1.016- 1.022 Urine protein assay by test strip, semi-quantitative 1+ NEGATIVE Urine glucose detection by automated test strip NEGATIVE NEGATIVE Erythrocytes detection in urine sediment by light microscopy NEGATIVE NEGATIVE Urine ketones detection by automated test strip NEGATIVE NEGATIVE Urine nitrite detection by test strip NEGATIVE NEGATIVE Urine total bilirubin detection by test strip NEGATIVE NEGATIVE Urine urobilinogen measurement by automated test strip (mass/volume) 4 mg/dL NORMAL Urine leukocyte esterase detection by dipstick 1+ NEGATIVE Automated urine sediment erythrocyte count by microscopy (number/high power field) NONE NRG Automated urine sediment leukocyte count by microscopy (number/high power field ) [HPF] NRG Bacteria detection in urine sediment by light microscopy FEW NRG Squamous epithelial cells detection in urine sediment by light microscopy 5-10 NRG Crystals detection in urine sediment by light microscopy NONE NRG Casts detection in urine sediment by light microscopy NONE NRG Mucus detection in urine sediment by light microscopy SMALL NRG Complete urinalysis with reflex to culture YES NRG Bacterial urine culture - 07/17/18 07:07 Bacterial urine culture [id number] NRG COLONY COUNT 30,000 CFU/ML NRG Automated blood complete blood count (hemogram) panel - 07/17/18 07:08 Blood leukocytes automated count (number/volume) 5.9 10*3/uL 4.3-11.0 Blood erythrocytes automated count (number/volume) 4.11 10*6/uL 4.35-5.85 Venous blood hemoglobin measurement (mass/volume) 11.5 g/dL 11.5-16.0 Blood hematocrit (volume fraction) 36 % 35-52 Automated erythrocyte mean corpuscular volume 87 [foz_us] 80-99 Automated erythrocyte mean corpuscular hemoglobin (mass per erythrocyte) 28 pg 25-34 Automated erythrocyte mean corpuscular hemoglobin concentration measurement ( mass/volume) 32 g/dL 32-36 Automated erythrocyte distribution width ratio 14.8 % 10.0-14.5 Automated blood platelet count (count/volume) 248 10*3/uL 130-400 Automated blood platelet mean volume measurement 10.5 [foz_us] 7.4-10.4 PT panel in platelet poor plasma by coagulation assay - 07/17/18 07:08 Prothrombin time (PT) in platelet poor plasma by coagulation assay 13.5 s 12.2-14.7 INR in platelet poor plasma or blood by coagulation assay 1.0 0.8-1.4 Activated partial thromboplastin time (aPTT) in platelet poor plasma bycoagulation assay - 07/17/18 07:08 Activated partial thromboplastin time (aPTT) in platelet poor plasma bycoagulation assay 32 s 24-35 Comprehensive metabolic panel - 07/17/18 07:08 Serum or plasma sodium measurement (moles/volume) 137 mmol/L 135-145 Serum or plasma potassium measurement (moles/volume) 3.5 mmol/L 3.6-5.0 Serum or plasma chloride measurement (moles/volume) 101 mmol/L 98-107 Carbon dioxide 26 mmol/L 21-32 Serum or plasma anion gap determination (moles/volume) 10 mmol/L 5-14 Serum or plasma urea nitrogen measurement (mass/volume) 21 mg/dL 7-18 Serum or plasma creatinine measurement (mass/volume) 1.44 mg/dL 0.60-1.30 Serum or plasma urea nitrogen/creatinine mass ratio 15 NRG Serum or plasma creatinine measurement with calculation of estimated glomerular filtration rate 36 NRG Serum or plasma glucose measurement (mass/volume) 187 mg/dL 70-105 Serum or plasma calcium measurement (mass/volume) 9.2 mg/dL 8.5-10.1 Serum or plasma total bilirubin measurement (mass/volume) 0.7 mg/dL 0.1-1.0 Serum or plasma alkaline phosphatase measurement (enzymatic activity/volume) 37 U/L 40-136 Serum or plasma aspartate aminotransferase measurement (enzymatic activity/ volume) 13 U/L 5-34 Serum or plasma alanine aminotransferase measurement (enzymatic activity/volume ) 13 U/L 0-55 Serum or plasma protein measurement (mass/volume) 6.7 g/dL 6.4-8.2 Serum or plasma albumin measurement (mass/volume) 4.1 g/dL 3.2-4.5 CALCIUM CORRECTED 9.1 mg/dL 8.5-10.1 Lipid 1996 panel - 07/17/18 07:08 Serum or plasma triglyceride measurement (mass/volume) 121 mg/dL <150 Serum or plasma cholesterol measurement (mass/volume) 156 mg/dL < 200 Serum or plasma cholesterol in HDL measurement (mass/volume) 42 mg/ dL 40-60 Cholesterol in LDL [mass/volume] in serum or plasma by direct assay 100 mg/dL 1-129 Serum or plasma cholesterol in VLDL measurement (mass/volume) 24 mg/ dL 5-40 Methicillin resistant Staphylococcus aureus (MRSA) screening culture - 07:08 Methicillin resistant Staphylococcus aureus (MRSA) screening culture NEG NRG Protime - 08/05/18 10:05 INR 1.8 1.0-4.0 Protime 21.7 Sec 9.9-12.8 Protime - 09/02/18 12:52 INR 2.0 1.0-4.0 Protime 24.0 Sec 9.9-12.8 Protime - 09/09/18 10:55 INR 2.6 1.0-4.0 Protime 30.5 Sec 9.9-12.8 Potassium - 09/16/18 14:10 Potassium 3.6 mmol/L 3.5-5.3 Protime - 09/23/18 10:20 INR 3.6 1.0-4.0 Protime 42.9 Sec 9.9-12.8 Encounters ACCT No. Visit Date/Time Discharge Status Pt. Type Provider Facility Loc./Unit Complaint [id number] 08/02/2018 12:26:00 08/02/2018 23:59:59 CLS Outpatient EDUARDO BAILEY, THERESE Berg [facility] RT ATHEROSCLEROSIS OF CORONARY ARTERY [id number] 08/02/2018 12:24:00 08/02/2018 23:59:59 CLS Outpatient DEX BAILEY, CLARE Penn [facility] RAD CHRONIC KIDNEY DISEASE STAGE 3 [id number] 07/17/2018 06:36:00 07/17/2018 23:59:59 CLS Outpatient NATALIA BAILEY, MILADIS Clement [facility] CATH ABN STRESS TEST [id number] 07/01/2018 08:11:00 07/01/2018 23:59:59 CLS Outpatient KEIKO BENTON [facility] CARD AF,CAD,HTN [id number] 06/26/2018 11:46:00 06/26/2018 23:59:59 CLS Outpatient KEIKO BENTON [facility] CARD AF,CAD,HTN [id number] 06/19/2018 14:30:00 06/19/2018 23:59:59 CLS Outpatient KEIKO BENTON [facility] RAD I48.0 [id number] 05/20/2018 11:24:00 05/20/2018 23:59:59 CLS Outpatient NURIA LINDER [facility] RAD SCREENING [id number] 12/13/2017 12:51:00 12/13/2017 23:59:59 CLS Outpatient TASH GILL APRN [facility] RAD LEFT KNEE PAIN [id number] 04/06/2017 12:20:00 04/08/2017 12:00:00 DIS Inpatient SISI BAILEY, SANDY Briones [facility] ICU NEW ONSET A-FIB CHEST PAIN [id number] 04/04/2017 09:17:00 04/04/2017 23:59:59 CLS Outpatient TASH GILL RECORDER HELPER GRAVITY PROSPECTING [facility] RAD SCREENING Z12.31 [id number] 04/11/2016 13:03:00 04/11/2016 23:59:59 CLS Outpatient TASH GILL RECORDER HELPER GRAVITY PROSPECTING [facility] RAD SCREENING [id number] 03/25/2015 09:21:00 03/25/2015 23:59:59 CLS Outpatient ENRIQUE HESTER RECORDER HELPER GRAVITY PROSPECTING [facility] RAD SCREENING [id number] 12/28/2014 00:11:00 12/28/2014 23:59:59 CLS Preadmit [facility] IRON DEFICIENCY ANEMIA [id number] 10/09/2014 09:01:00 12/27/2014 00:01:00 DIS Outpatient [facility] IRON DEFICIENCY ANEMIA [id number] 03/24/2014 08:39:00 03/24/2014 23:59:59 CLS Outpatient SANDY GARCIA MD [facility] RAD SCREENING [id number] 03/20/2013 07:20:00 03/20/2013 23:59:59 CLS Outpatient SANDY GARCIA MD [facility] RAD SCREENING [id number] 10/02/2018 06:34:00 ACT Outpatient MILADIS FISHER MD [facility] CATH AFIB,CAD,HTN [id number] 04/11/2016 13:03:00 Document Registration [id number] 04/29/2012 12:03:00 Document Registration [id number] 03/01/2012 12:35:00 Document Registration [id number] 02/24/2011 12:57:00 Document Registration [id number] 06/18/2017 00:07:11 06/18/2017 23:59:59 CLS Outpatient Sandy Garcia [id number] 12/17/2017 07:08:00 Document Registration [id number] 03/25/2015 09:21:32 ACT Document Registration [id number] 09/23/2018 10:40:00 09/23/2018 23:59:00 DIS Outpatient SISI SANDY [id number] 09/16/2018 14:35:00 09/16/2018 23:59:00 DIS Outpatient THERESE CLARK [id number] 09/09/2018 11:14:00 09/09/2018 23:59:00 DIS Outpatient WILMA JOLLY [id number] 09/02/2018 12:41:00 09/02/2018 23:59:00 DIS Outpatient SANDY GARCIA [id number] 08/05/2018 10:01:00 08/05/2018 23:59:00 DIS Outpatient NATALIA, MILADIS [id number] 07/03/2018 16:02:00 07/03/2018 23:59:00 DIS Outpatient MILADIS FISHER [id number] 06/13/2018 12:05:00 06/13/2018 23:59:00 DIS Outpatient SANDY GARCIA [id number] 06/05/2018 15:40:00 06/05/2018 23:59:00 DIS [facility] [id number] 05/03/2018 06:42:00 05/03/2018 23:59:00 DIS Outpatient SANDY GARCIA [id number] 04/30/2018 10:05:00 04/30/2018 23:59:00 DIS Outpatient MILADIS FISHER [id number] 04/22/2018 14:59:00 04/22/2018 23:59:00 DIS Outpatient MILADIS FISHER [id number] 03/20/2018 08:24:00 03/20/2018 23:59:00 DIS Outpatient NATALIA, MILADIS [id number] 03/05/2018 06:53:00 03/05/2018 23:59:00 DIS Outpatient NATALIA, MILADIS [id number] 02/15/2018 15:51:00 02/15/2018 23:59:00 DIS Outpatient NATALIA, MILADSI [id number] 01/21/2018 08:02:00 01/21/2018 23:59:00 DIS Outpatient MILADIS FISHER [id number] 01/07/2018 06:47:00 01/07/2018 23:59:00 DIS Outpatient NATALIA, MILADIS [id number] 12/31/2017 06:48:00 12/31/2017 23:59:00 DIS Outpatient SANDY GARCIA [id number] 12/27/2017 15:04:00 12/27/2017 23:59:00 DIS Outpatient NATALIA, [facility] [id number] 12/17/2017 07:08:00 12/17/2017 23:59:00 DIS Outpatient NATALIA, [facility] [id number] 12/14/2017 16:52:00 12/14/2017 23:59:00 DIS Outpatient NATALIA, [facility] [id number] 11/22/2017 07:46:00 11/22/2017 23:59:00 DIS Outpatient NATALIA, [facility] [id number] 11/07/2017 09:06:00 11/07/2017 23:59:00 DIS Outpatient NATALIA, [facility] [id number] 10/09/2017 06:59:00 10/09/2017 23:59:00 DIS Outpatient NATALIA, [facility] [id number] 09/24/2017 07:49:00 09/24/2017 23:59:00 DIS Outpatient NATALIA, [facility] [id number] 09/14/2017 08:29:00 09/14/2017 23:59:00 DIS Outpatient NATALIA, [facility] [id number] 08/15/2017 09:34:00 08/15/2017 23:59:00 DIS Outpatient NATALIA, [facility] [id number] 08/01/2017 09:05:00 08/01/2017 23:59:00 DIS Outpatient NATALIA, [facility] [id number] 07/16/2017 07:54:00 07/16/2017 23:59:00 DIS Outpatient NATALIA, [facility] [id number] 07/02/2017 07:14:00 07/02/2017 23:59:00 DIS Outpatient NATALIA, [facility] [id number] 06/18/2017 07:09:00 06/18/2017 23:59:00 DIS Outpatient NATALIA, [facility] [id number] 06/04/2017 06:56:00 06/04/2017 23:59:00 DIS Outpatient NATALIA, [facility] [id number] 05/21/2017 07:06:00 05/21/2017 23:59:00 DIS Outpatient NATALIA, [facility] [id number] 05/07/2017 07:14:00 05/07/2017 23:59:00 DIS Outpatient NATALIA, [facility] [id number] 04/29/2017 10:00:00 04/29/2017 23:59:00 DIS Outpatient Santos, Keiko K [id number] 04/23/2017 07:00:00 04/23/2017 23:59:00 DIS Outpatient MILADIS FISHER [id number] 04/16/2017 06:55:00 04/16/2017 23:59:00 DIS Outpatient MILADIS FISHER [id number] 04/12/2017 07:12:00 04/12/2017 23:59:00 DIS Outpatient MILADIS FISHER [id number] 04/11/2017 07:08:00 04/11/2017 07:08:00 CAN Outpatient SANDY GARCIA [id number] 12/20/2016 06:43:00 12/20/2016 23:59:00 DIS Outpatient SANDY GARCIA [id number] 08/10/2016 07:04:00 08/10/2016 23:59:00 DIS Outpatient SANDY GARCIA
--- NOTE | 2018-10-02 08:10 | Cardiac Procedure Note-CS/ASA ---
Pre-Procedure Note Pre-Op Procedure Note H&P Reviewed The H&P was reviewed, patient examined and no changes noted. Date H&P Reviewed: Oct 02, 2018 Time H&P Reviewed: 08:09 Conscious Sedation Pre-Proced Time 08:09 ASA Score 3 For ASA 3 and 4: Consider anesthesia and medical clearance. Also, for patients with a history of failed moderate sedation consider anesthesia. Airway Lungs Heart ASA score ASA 1: a normal healthy patient ASA 2: a patient with a mild systemic disease (mid diabetes, controlled hypertension, obesity X ASA 3: a patient with a severe systemic disease that limits activity (angina , COPD, prior Myocardial infarction) ASA 4: a patient with an incapacitating disease that is a constant threat to life (CHF, renal failure) ASA 5: a moribund patient not expected to survive 24 hrs. (ruptured aneurysm) ASA 6: a declared brain- patient whose organs are being harvested. For emergent operations, add the letter E after the classification Mallampati Classification Grade 3 Sedation Plan Analgesia, Amnesia, Plan communicated to team members, Discussed options with patient/fam, Discussed risks with patient/fam The patient is an appropriate candidate to undergo the planned procedure, sedation, and anesthesia. The patient immediately re-assessed prior to indication. MILADIS FISHER MD Oct 02, 2018 08:10
[2018-10-02] MEDS ORDERED: MIDAZOLAM 2 MG/2 ML (VERSED) VIAL ONE (09:40)
[2018-10-02] MEDS ORDERED: proPOfol 200 MG/20 ML (DIPRIVAN) VIAL IV ONE (09:40)
--- NOTE | 2018-10-02 10:22 | Anesthesia-General Post-Op ---
MAC Patient Condition Mental Status/LOC: Same as Preop Cardiovascular: Satisfactory Nausea/Vomiting: Absent Respiratory: Satisfactory Pain: Controlled Complications: Absent Post Op Complications Complications None Follow Up Care/Instructions Patient Instructions None needed. Anesthesiology Discharge Order Discharge Order Patient is doing well, no complaints, stable vital signs, no apparent adverse anesthesia problems. ALDEN AGGARWAL DO Oct 02, 2018 10:22
--- NOTE | 2018-10-02 10:22 | Anesthesia-Procedure Note ---
Procedures/Interventions Procedure Start/Stop/Diagnosis Date of Procedure: Oct 02, 2018 Start Time: 09:55 Referring Physician: Dr Andrews Preprocedural Diagnosis: A-fib Brief History Brief history obtained from patient and Dr Andrews. NPO status verified. To left lat position. Versed 1 mg IV and Propofol 70 mg IV in divided doses for sedation. Pt tolerated the procedure well and maintained spontaneous ventilation throughout. Pt tolerated the procedure well. No cardioversion per Dr Andrews. Stop Time: 10:07 Postprocedural Diagnosis: A-fib JASON/Cardioversion Anesthesia Type: MAC ASA Class: 3 Medications Versed 1 mg IV and Propofol 70 mg IV Monitors and Equipment: BP Cuff - Left, Continuous EKG, End Tidal CO2, IV, Pulse Oximeter, V Lead EKG ALDEN AGGARWAL DO Oct 02, 2018 10:22
== END 2018-10-02 11:20 | disposition home or self-care (01) ==
LOC: CATH 06:34
PROVIDERS: ATTEND Internal Medicine Cardiovascular Disease
DX: I25.10 Atherosclerotic heart disease of native coronary artery without angina pectoris (principal); I10 Essential (primary) hypertension; E78.5 Hyperlipidemia, unspecified; I48.0 Paroxysmal atrial fibrillation; Z88.2 Allergy status to sulfonamides; E11.9 Type 2 diabetes mellitus without complications; I49.5 Sick sinus syndrome; I65.23 Occlusion and stenosis of bilateral carotid arteries; I35.0 Nonrheumatic aortic (valve) stenosis; Z79.01 Long term (current) use of anticoagulants; Z79.899 Other long term (current) drug therapy; Z79.82 Long term (current) use of aspirin; Z96.652 Presence of left artificial knee joint; Z95.1 Presence of aortocoronary bypass graft
CPT/HCPCS: 36415; 71045; 80053; 80061; 85027; 85610; 85730; 87081; 93005; 93312; 93320; 93325

== ENCOUNTER 2018-11-14 07:47 | Day surgery (SDC) | payer MEDICARE, OTHER ==
[~2018-11-14] VITALS: Ht 165.1 cm; Wt 93.4 kg
[2018-11-14] VITALS (8 sets, daily range): BP systolic 123–156; BP diastolic 51–89
[~2018-11-14 07:47] MED LIST changes: +ASPI-983 PO; +INSU300I3 SQ; +LISI-556 PO
[2018-11-14] MEDS ORDERED: LIDOCAINE 2% VISCOUS 15 ML UDC ONE (07:54)
[2018-11-14] MEDS ORDERED: NS IV 1000 ML 1,000 ML ONE (07:54)
[2018-11-14] MEDS ORDERED: NS IV 1000 ML 1,000 ML IV SCH (08:00)
[2018-11-14 08:29] LABS: HEMOGLOBIN 11.5 G/DL (11.5-16.0); MEAN PLATELET VOLUME 10.5 FL (7.4-10.4); RED CELL DISTRIBUTION WIDTH 15.6 % (10.0-14.5); WHITE BLOOD COUNT 4.7 10^3/uL (4.3-11.0)
[2018-11-14 08:40] LABS: PROTHROMBIN TIME PATIENT 23.2 SEC (12.2-14.7)
[2018-11-14 08:49] LABS: ALBUMIN 4.1 GM/DL (3.2-4.5); BILIRUBIN,TOTAL 0.7 MG/DL (0.1-1.0); CALCIUM 9.7 MG/DL (8.5-10.1); CREATININE SERUM 1.28 MG/DL (0.60-1.30); POTASSIUM 3.7 MMOL/L (3.6-5.0); TOTAL PROTEIN 7.3 GM/DL (6.4-8.2)
--- NOTE | 2018-11-14 09:25 | Anesthesia-Procedure Note ---
Procedures/Interventions Procedure Start/Stop/Diagnosis Date of Procedure: Nov 14, 2018 Start Time: 09:15 Referring Physician: Cornelius Preprocedural Diagnosis: A Fib Brief History Brief history obtained from patient and SAUMYA Carrasco. NPO status verified and allergies reviewed. Pt to left lateral position. O2/NC. Propofol 30mg IV to start procedure. Patient tolerated passing of scope well. A total of 140 mg Propofol was given in divided doses, the patient tolerated the JASON/ cardioversion well, and spontaneous respirations remained throughout. Report off to SAUMYA Carrasco. Stop Time: 09:28 JASON/Cardioversion Anesthesia Type: MAC ASA Class: 3 Medications Propofol 140mg Monitors and Equipment: BP Cuff - Left, Continuous EKG, End Tidal CO2, IV ( Right AC 20g), Pulse Oximeter MARIYA MAHMOOD CRNA Nov 14, 2018 09:25
[2018-11-14] MEDS ORDERED: proPOfol 200 MG/20 ML (DIPRIVAN) VIAL IV ONE (09:33)
--- NOTE | 2018-11-14 10:09 | NUR ---
Patient discharged before I was able to finish med rec.
--- NOTE | 2018-11-14 10:10 | NUR ---
Patient brought medication bottles in. Amiodarone 200mg daily Warfarin 2mg Sun,Mon,Wed,Fri and 1mg(1/2 tab) ,,Sat Metoprolol XL 25mg Daily Furosemide 20mg Daily PRN swelling take with potassium Escitalopram 5mg Daily Aspirin 81mg Daily Amlodipine 5mg Daily Simvastatin 20mg HS Potassium Chloride 20meq Daily PRN take with furosemide Levothyroxine 50mcg Daily Guanfacine 1mg HS Fenofibrate 145mg daily Humalog 5 units with meals Toujeo 300 units/ml 24 units HS Has taken all her medications to except for the potassium.
--- NOTE | 2018-11-14 10:30 | NUR ---
Gag reflex intact. patient tolerating liquids. DC'd r ac IV, catheter intact, drsg applied. states patient already has an nikita scheduled in 1 wk.
--- NOTE | 2018-11-14 10:58 | Cardioversion ---
Cardioversion PROCEDURE PHYSICIAN: Alisson Shields MD DATE OF PROCEDURE: 11/14/18 DIRECT EXTERNAL ELECTRICAL CARDIOVERSION: Indications: Symptomatic Atrial Fibrillation. Preoperative diagnoses: Symptomatic Atrial Fibrillation. Postoperative diagnosis: Sinus rhythm, Successful Electrical Cardioversion History: The year old lady who is a patient of Dr. Andrews. She has history of persistent atrial fibrillation. She was scheduled for cardioversion with transesophageal echocardiogram with Dr. Andrews however there was a suspicion of left atrial thrombus on JASON therefore cardioversion was not performed. She was continued on 6 further weeks of Coumadin with INR above 2.0. She is symptomatic with persistent atrial fibrillation, therefore cardioversion is recommended. Anesthesia: By Anesthesia services Complications: None Specimen: None Contrast: 0 Flouroscopy: none Procedure Details: The patient was brought the cathode builder after informed consent was taken, all the risks and complications were explained including the risk of stroke. Transesophageal echocardiogram showed a dilated left atrium with spontaneous echo contrast however there was no thrombus in the left atrium or left atrial appendage. Electrical cardioversion was carried out with anesthesia support with propofol. 200 joules of synchronized shock was delivered through external patches which promptly restored sinus rhythm. The patient tolerated the procedure well. Conclusions: 1.Successful Cardioversion. 2.Continue oral anticoagulation, antiarrhythmic agent and rate controlling agent. 3.Follow up in office in 14 days. Alisson Shields MD, [facility], CCDS Cardiac Electrophysiology Delicia SHIELDS MD Nov 14, 2018 10:57
== END 2018-11-14 10:59 | disposition home or self-care (01) ==
LOC: CATH 07:47
PROVIDERS: ATTEND Internal Medicine Interventional Cardiology
DX: I48.1 Persistent atrial fibrillation (principal); I25.10 Atherosclerotic heart disease of native coronary artery without angina pectoris; I12.9 Hypertensive chronic kidney disease with stage 1 through stage 4 chronic kidney disease, or unspecified chronic kidney disease; N18.3 Chronic kidney disease, stage 3 (moderate); E11.22 Type 2 diabetes mellitus with diabetic chronic kidney disease; E78.5 Hyperlipidemia, unspecified; Z79.01 Long term (current) use of anticoagulants; Z79.899 Other long term (current) drug therapy; Z79.82 Long term (current) use of aspirin; Z95.1 Presence of aortocoronary bypass graft
CPT/HCPCS: 36415; 80053; 85027; 85610; 85730; 92960; 93005; 93312; 93320; 93325

== ENCOUNTER → 2018-11-19 | Outpatient (CLI) | payer MEDICARE, OTHER ==
[2018-11-19 12:51] LABS: BASOPHILS % (AUTO) 1 % (0-10); EOSINOPHILS # (AUTO) 0.2 10^3/uL (0.0-0.3); EOSINOPHILS % (AUTO) 3 % (0-10); HEMATOCRIT 36 % (35-52); HEMOGLOBIN 11.2 G/DL (11.5-16.0); LYMPHOCYTES # (AUTO) 1.4 X 10^3 (1.0-4.0); LYMPHOCYTES % (AUTO) 29 % (12-44); MEAN CORPUSCULAR HEMOGLOBIN 25 PG (25-34); MEAN CORPUSCULAR HGB CONC 31 G/DL (32-36); MEAN CORPUSCULAR VOLUME 81 FL (80-99); MEAN PLATELET VOLUME 11.1 FL (7.4-10.4); MONOCYTES # (AUTO) 0.5 X 10^3 (0.0-1.0); MONOCYTES % (AUTO) 9 % (0-12); NEUTROPHILS # (AUTO) 2.9 X 10^3 (1.8-7.8); NEUTROPHILS % (AUTO) 58 % (42-75); PLATELET COUNT 304 10^3/uL (130-400); RED CELL DISTRIBUTION WIDTH 15.8 % (10.0-14.5); WHITE BLOOD COUNT 4.9 10^3/uL (4.3-11.0)
[2018-11-19 12:57] LABS: BILIRUBIN,URINE NEGATIVE (NEGATIVE); CLARITY,URINE SLIGHTLY CLOUDY; COLOR,URINE YELLOW; GLUCOSE, URINE (UA) NEGATIVE (NEGATIVE); KETONES,URINE NEGATIVE (NEGATIVE); LEUKOCYTE ESTERASE ,URINE 3+ (NEGATIVE); NITRITE,URINE NEGATIVE (NEGATIVE); PH,URINE 7 (5-9); PROTEIN,URINE 1+ (NEGATIVE); UROBILINOGEN,URINE 4 MG/DL (NORMAL)
[2018-11-19 13:06] LABS: AMORPHOUS SEDIMENT,UR RARE AMOR PHOSPHATE /LPF; BACTERIA,URINE FEW /HPF
[2018-11-19 13:16] LABS: CALCIUM 9.6 MG/DL (8.5-10.1); CREATININE SERUM 1.12 MG/DL (0.60-1.30); MAGNESIUM 1.8 MG/DL (1.8-2.4); PHOSPHORUS 3.5 MG/DL (2.3-4.7); POTASSIUM 3.5 MMOL/L (3.6-5.0); URIC ACID 3.3 MG/DL (2.6-7.2)
== END ==
LOC: LAB 12:21
PROVIDERS: ATTEND Internal Medicine Nephrology
DX: E55.9 Vitamin D deficiency, unspecified (principal); D63.1 Anemia in chronic kidney disease; N18.3 Chronic kidney disease, stage 3 (moderate); R82.998 Other abnormal findings in urine
CPT/HCPCS: 36415; 80069; 81000; 82306; 82570; 83735; 83970; 84156; 84550; 85025; 87088

== ENCOUNTER → 2019-04-16 | Outpatient (CLI) | payer MEDICARE, OTHER ==
[~2019-04-16] MED LIST changes: +REGADENOSON 0.4 MG/5 ML SYR (LEXISCAN) IV ONE
[2019-04-16] MEDS: CATHETER FLUSH 10 ML SYR IV PRN ×2 (07:50→09:35)
[2019-04-16 09:34] VITALS: BP 196/73
--- NOTE | 2019-04-16 17:19 | STRESS TEST ---
DATE OF SERVICE: 04/16/2019 LEXISCAN MYOVIEW STRESS TEST REPORT REFERRING PHYSICIAN: Dr. Garcia. Baseline heart rate is 58, baseline blood pressure 196/73. Baseline EKG is sinus rhythm with no ischemic changes. In summary, the patient was injected with 10.68 mCi of technetium-99 Myoview and the resting images were obtained. Then, the patient received 0.4 mg of Lexiscan, followed by 30.3 mCi of technetium-99 Myoview. Throughout the test, there were no EKG changes. The resting and stress images were reviewed and compared in the short axis, horizontal long axis, and vertical long axis views. Review of the images showed reversible ischemia involving the whole inferior wall, inferoapical segment and inferolateral wall with breast attenuation, mild decreased uptake at the basal to mid anterior wall, which is fixed. SSS is 16, SDS 9, TID value 0.97. On the gated images, the left ventricle appeared to be normal size with normal contractility. Calculated ejection fraction 55%. IN CONCLUSION: 1. The patient tolerated Lexiscan well. 2. Reversible ischemia involving the whole inferior wall, inferoapical segment and inferolateral wall. 3. Normal left ventricular size with normal contractility. Calculated ejection fraction 55%. Job ID: [id number] DocumentID: [id number] Dictated Date: 04/16/2019 13:44:43 Cardiovascular Tech Date: 04/16/2019 17:18:59 Dictated By: MILADIS FISHER MD
== END ==
LOC: CARD 07:27
PROVIDERS: ATTEND Internal Medicine Cardiovascular Disease
DX: I25.10 Atherosclerotic heart disease of native coronary artery without angina pectoris (principal); I10 Essential (primary) hypertension; E78.5 Hyperlipidemia, unspecified; I48.0 Paroxysmal atrial fibrillation
CPT/HCPCS: 78452; 93017

== ENCOUNTER 2019-04-23 11:47 | Day surgery (SDC) | payer MEDICARE, OTHER ==
[~2019-04-23] VITALS: Ht 165 cm; Wt 96.3 kg
[2019-04-23] VITALS (10 sets, daily range): BP systolic 143–167; BP diastolic 58–73
[~2019-04-23 11:47] MED LIST changes: -REGADENOSON 0.4 MG/5 ML SYR (LEXISCAN) IV ONE
[2019-04-23] MEDS ORDERED: HEParin (CATH LAB) 2,000 ML IV ONE (11:50)
[2019-04-23] MEDS ORDERED: NS IV 1000 ML 1,000 ML ONE (11:50)
[2019-04-23] MEDS ORDERED: LIDOCAINE 1% INJ 20 ML 20 ML VIAL ONE (11:50)
[2019-04-23] MEDS ORDERED: NS IV 1000 ML 1,000 ML IV SCH ×2 (12:00→14:48)
[2019-04-23 12:24] LABS: HEMOGLOBIN 11.2 G/DL (11.5-16.0); MEAN PLATELET VOLUME 10.6 FL (7.4-10.4); RED CELL DISTRIBUTION WIDTH 16.4 % (10.0-14.5); WHITE BLOOD COUNT 4.2 10^3/uL (4.3-11.0)
[2019-04-23 12:32] LABS: INR 1.7 (0.8-1.4); PROTHROMBIN TIME PATIENT 20.6 SEC (12.2-14.7)
[2019-04-23 12:41] LABS: BILIRUBIN,TOTAL 0.7 MG/DL (0.1-1.0); CALCIUM 9.2 MG/DL (8.5-10.1); CREATININE SERUM 1.42 MG/DL (0.60-1.30)
--- NOTE | 2019-04-23 12:43 | Diagnostic Imaging Report ---
EXAMINATION: Portable erect AP chest at 12:09 p.m. INDICATION: Preop. FINDINGS: The cardiomegaly and the sternotomy wires and surgical clips noted on the prior exam of 10/02/2018 are again evident. If anything, the heart is somewhat smaller than noted on the prior study. The left lower lobe atelectasis/infiltrate seen previously has essentially resolved. There is still blunting of the left costophrenic angle, however. This may be secondary to pleural thickening or to a small amount of fluid. Left upper lung and right lung are generally clear. The mediastinum is not widened. The osseous structures are intact. IMPRESSION: 1. There is cardiomegaly and evidence of prior cardiac surgery, but there is no sign of an acute cardiopulmonary abnormality. 2. The blunted appearance of the left costophrenic angle may be secondary to pleural thickening as opposed to pleural fluid. Dictated by: Dictated on workstation # [id number]
[2019-04-23] MEDS ORDERED: ERGO50006 PO (12:44)
[2019-04-23] MEDS ORDERED: INSU200I SQ (12:53)
[2019-04-23] MEDS ORDERED: INSU100I23 SQ ×2 (12:53→12:59)
[2019-04-23] MEDS ORDERED: ACET-575 PO (12:53)
[2019-04-23] MEDS ORDERED: fentaNYL INJECTION 100 MCG/2 ML AMP ONE (14:03)
[2019-04-23] MEDS ORDERED: MIDAZOLAM 5 MG/5 ML (VERSED) VIAL ONE (14:03)
--- NOTE | 2019-04-23 14:12 | Cardiac Procedure Note-CS/ASA ---
Pre-Procedure Note Pre-Op Procedure Note H&P Reviewed The H&P was reviewed, patient examined and no changes noted. Date H&P Reviewed: Apr 23, 2019 Time H&P Reviewed: 14:12 Conscious Sedation Pre-Proced Time 14:12 ASA Score 3 For ASA 3 and 4: Consider anesthesia and medical clearance. Also, for patients with a history of failed moderate sedation consider anesthesia. Airway Lungs Heart ASA score ASA 1: a normal healthy patient ASA 2: a patient with a mild systemic disease (mid diabetes, controlled hypertension, obesity x ASA 3: a patient with a severe systemic disease that limits activity (angina, COPD, prior Myocardial infarction) ASA 4: a patient with an incapacitating disease that is a constant threat to life (CHF, renal failure) ASA 5: a moribund patient not expected to survive 24 hrs. (ruptured aneurysm) ASA 6: a declared brain- patient whose organs are being harvested. For emergent operations, add the letter E after the classification Mallampati Classification Grade 3 Sedation Plan Analgesia, Amnesia, Plan communicated to team members, Discussed options with patient/fam, Discussed risks with patient/fam The patient is an appropriate candidate to undergo the planned procedure, sedation, and anesthesia. The patient immediately re-assessed prior to indication. MILADIS FISHER MD Apr 23, 2019 14:12
--- NOTE | 2019-04-23 14:51 | Discharge Inst-Post CATH ---
Discharge Inst-CATH/EP Problems Reviewed?: Yes Post Cardiac Cath/EP D/C Inst Follow Up/Plan Appointment with Dr. Andrews's office in 2-4 weeks <b>CARDIAC CATH/EP PROCEDURE DISCHARGE INSTRUCTIONS</b> ACTIVITY * Go Home directly and rest. * Limit activity of the leg (or wrist if it was used) for 7 days including aerobics, swimming, jogging, bicycling, etc. * Restrict stair-climbing for 7 days if possible, if not, climb up with your non-cath leg, then bring together on the same step. * Avoid lifting, pushing, pulling or excessive movement of the affected extremity for 7 days. * Customary sexual activity may be resumed after 2 days-use caution not to use a position that strains or causes pain to the affected extremity. * No driving for 24 hours. * NO SMOKING. * Avoid straining for bowel movements for 7 days. * Gentle walking on level ground is allowed. * Returning to work will depend on the type of procedure and the results. Your doctor will discuss this with you. CALL YOUR DOCTOR FOR ANY OF THE FOLLOWING: *If bleeding from the puncture site occurs- Apply gentle pressure to site with clean cloth and call your doctor or EMS. * If a knot or lump forms under the skin, increases in size, or causes pain. * If bruising appears to be worsening or moving further down your leg instead of disappearing. * Temperature above 101 F. CARE OF YOUR GROIN INCISION; * Bruising or purple discoloration of the skin near the puncture site is common. * You may shower only, no bathtub bathing for 5 days. Be careful to avoid slipping as your leg may feel stiff. * If a closure device was used on your femoral artery, please see the attached guide regarding care of the device and your leg. * Leave dressing on FOR 24 hours. CARE OF YOUR WRIST INCISION; * Bruising or purple discoloration of the skin near the puncture site is common. * You may shower. * DO NOT submerge wrist. * Leave dressing on FOR 24 hours. MILADIS ANDREWS MD Apr 23, 2019 2:51 pm
--- NOTE | 2019-04-23 14:55 | Cardiac Cath Report ---
Cardiac Cath Report Physician (s)/Party Planner (s) Physician MILADIS FISHER MD Pre-Procedure Diagnosis Pre-Procedure Diagnosis: coronary artery disease, chest pain Post-Procedure Note Procedure Start Date: Apr 23, 2019 Name of Procedure: Left heart catheterization Vein graft angiogram LUGO angiogram Findings/Procedure Note PROCEDURE NOTE: 73-year-old lady with history of coronary artery disease, CABG, had an abnormal stress test, scheduled for cardiac catheterization possible PTCA. After explaining the procedure to the patient, all pros and cons were explained, all questions were answered. The patient signed the consent and then she was placed on the cardiac catheterization laboratory. Groin was prepped SL fashion local anesthesia was used. Sheath placed in the right femoral artery. David right and left catheter were used to access the coronary system.Vein Graft evaluated. LUGO evaluated. Pigtail was used to access the left ventricular cavity. Left ventriculogram was done Aortic arch angiogram was done At the end of the procedure the sheath was removed. Closure device was used FINDINGS: Hemodynamics LV 162/17, end-diastolic pressure of 17 Aorta 158/54 mean of 93 ANATOMY: Left Main has moderate disease Left Anterior Descending has moderate severe disease, patent LUGO to LAD Left Circumflex has occluded first obtuse marginal severe disease at the second obtuse marginal, patent vein graft jump graft to the OM1 and OM 2 Right Coronory Artery has moderate severe disease at the midportion, patent vein graft to the PDA LUGO to LAD is patent Vein Graft evaluation showed to ostium of vein graft The lower vein graft is an graft to the right PDA that is patent with good flow distally The upper vein graft is a jump graft vein graft to OM1 and OM 2 and is patent with good flow distally LV Gram was not done pressure was measured CONCLUSION: 1. Patent LUGO to LAD, vein graft to right PDA and vein graft jump graft to OM1 and OM 2 with excellent flow distally 2. Normal left ventricular end-diastolic pressure DISCUSSION AND RECOMMENDATION: Medical therapy is recommended no intervention is needed Anesthesia Type: Conscious Sedation Estimated blood loss (mL): 25 ml Contrast Amount: 27 ml Total Radiation Dose: 264 mGy Post-Procedure Diagnosis Post-operative diagnosis: Chest pain Coronary artery disease Hypertension Hyperlipidemia MILADIS FISHER MD Apr 23, 2019 2:55 pm
[2019-04-23] MEDS ORDERED: PATIENT MAY USE OWN MEDS, ALL PO SCH (15:00)
--- NOTE | 2019-04-25 08:03 | NUR ---
SPOKE WITH PT WELL CALLING [facility] TO COMPLETE THE MED REC. AMLODIPINE: BOTTLES SAYS TO TAKE BID, PUT THE PT ONLY TAKES ONCE DAILY. SHE INFORMED ME THAT THE DR TOLD HER TO START TAKING IT THIS WAY AND TO JUST USE UP WHAT SHE HAD AND THEN THEY WOULD SEND IN A NEW SCRIPT TO REFLECT THE NEW DIRECTIONS. 01-31-2019 GUANFACINE #90 02-05-2019 AMLODIPINE #180 03-03-2019 VIT D 50,000 #13 03-24-2019 AMIODARONE #60 03-29-2019 TOUJEO MAX 04-05-2019 FENOFIBRATE #30 04-05-2019 POTASSIUM #60 04-05-2019 HUMALOG KWIKPEN 04-09-2019 ESCITALOPRAM #30 04-09-2019 FUROSEMIDE #120 04-09-2019 WARFARIN #27 04-18-2019 LEVOTHYROXINE #30 04-21-2019 SIMVASTATIN #90 PHARMACY DID NOT HAVE A RECORD OF A B-12 SHOT, THEY THINK THE OFFICE MAY DISPENSE AND GIVE IT TO HER THERE.
== END 2019-04-23 19:28 | disposition home or self-care (01) ==
LOC: CATH 11:47 → SDC 15:10 → CATH 19:28
PROVIDERS: ATTEND Internal Medicine Cardiovascular Disease
DX: I25.10 Atherosclerotic heart disease of native coronary artery without angina pectoris (principal); I45.0 Right fascicular block; I49.5 Sick sinus syndrome; I11.9 Hypertensive heart disease without heart failure; I35.8 Other nonrheumatic aortic valve disorders; E78.5 Hyperlipidemia, unspecified; E11.9 Type 2 diabetes mellitus without complications; M19.90 Unspecified osteoarthritis, unspecified site; I65.29 Occlusion and stenosis of unspecified carotid artery; Z90.49 Acquired absence of other specified parts of digestive tract; Z98.51 Tubal ligation status; Z95.1 Presence of aortocoronary bypass graft; Z88.2 Allergy status to sulfonamides; Z88.8 Allergy status to other drugs, medicaments and biological substances; Z91.048 Other nonmedicinal substance allergy status; Z79.82 Long term (current) use of aspirin; Z79.899 Other long term (current) drug therapy; Z82.49 Family history of ischemic heart disease and other diseases of the circulatory system; Z96.641 Presence of right artificial hip joint; Z90.710 Acquired absence of both cervix and uterus; Z93.3 Colostomy status; Z82.3 Family history of stroke
CPT/HCPCS: 36415; 71045; 80053; 80061; 85027; 85610; 85730; 87081; 93459

== ENCOUNTER → 2019-05-21 | Outpatient (CLI) | payer MEDICARE, OTHER ==
[~2019-05-21] MED LIST changes: +ACET-575 PO; +ERGO50006 PO; +INSU100I23 SQ; +INSU200I SQ
--- NOTE | 2019-05-21 13:23 | Diagnostic Imaging Report ---
INDICATION: Routine screening. COMPARISON: 05/20/2018 and 04/27/2017. TECHNIQUE: 2D and 3D bilateral screening mammography was performed with CAD. FINDINGS: Both breasts remain heterogeneously dense, limiting the sensitivity of mammography. Scattered benign-appearing parenchymal and vascular calcifications are again noted bilaterally. No mass or malignant appearing microcalcifications are seen. The axillae are unremarkable. IMPRESSION: No mammographic features suspicious for malignancy are identified. ACR BI-RADS Category 2: Benign findings. Result letter will be mailed to the patient. Note: At least 10% of breast cancer is not imaged by mammography. Dictated by: Dictated on workstation # [id number]
== END ==
LOC: RAD 11:03
PROVIDERS: ATTEND Nurse Practitioner Family
DX: Z12.31 Encounter for screening mammogram for malignant neoplasm of breast (principal)
CPT/HCPCS: 77067

== ENCOUNTER → 2019-05-28 | Outpatient (CLI) | payer MEDICARE, OTHER | LOC: CARD 11:17 | PROVIDERS: ATTEND Internal Medicine Cardiovascular Disease | DX: I48.91 Unspecified atrial fibrillation (principal) | CPT/HCPCS: 93225; 93226 ==

== ENCOUNTER 2019-06-18 11:44 | Day surgery (SDC) | payer MEDICARE, OTHER ==
[~2019-06-18] VITALS: Ht 95.5 cm; Wt 165.0 kg
[2019-06-18] VITALS (9 sets, daily range): BP systolic 110–140; BP diastolic 46–62
[2019-06-18] MEDS ORDERED: LIDOCAINE 1% INJ 20 ML 20 ML VIAL ONE (11:49)
[2019-06-18] MEDS ORDERED: ceFAZolin INJECTION 1,000 MG ONE (11:49)
[2019-06-18] MEDS ORDERED: NS IV 1000 ML 1,000 ML ONE (11:49)
[2019-06-18] MEDS ORDERED: HEParin (CATH LAB) 1,000 ML IV ONE (11:49)
[2019-06-18] MEDS ORDERED: BACITRACIN INJECTION 50,000 UNIT, SODIUM CHLORIDE 0.9% IRRIGATIO 500 ML IR ONE ×2 (12:00)
[2019-06-18] MEDS ORDERED: BACITRACIN 50000 UNITS/500 ML NS IR ONE ×2 (12:15)
[2019-06-18 12:20] LABS: HEMOGLOBIN 10.9 G/DL (11.5-16.0); MEAN PLATELET VOLUME 10.4 FL (7.4-10.4); RED CELL DISTRIBUTION WIDTH 16.3 % (10.0-14.5); WHITE BLOOD COUNT 5.6 10^3/uL (4.3-11.0)
[2019-06-18] MEDS ORDERED: NS (IVPB) 50 ML ONE (12:33)
--- NOTE | 2019-06-18 12:36 | Diagnostic Imaging Report ---
INDICATION: Preoperative evaluation, pre-pacemaker placement COMPARISON: 04/23/2019 TECHNIQUE: Single frontal radiograph chest dated 06/18/2019 FINDINGS: Post surgical changes of a CABG. The cardiac silhouette is enlarged, though stable. No significant pulmonary vascular congestion. The right lung is clear. Minimal left basilar opacities with tenting of the diaphragm are again noted. No large volume pleural effusion. No pneumothorax. No acute osseous abnormality. IMPRESSION: Stable cardiomegaly without overt congestive heart failure. Stable minimal scarring and/or atelectasis within the left lung base. Dictated by: Dictated on workstation # [id number]
[2019-06-18 12:40] LABS: INR 1.4 (0.8-1.4); PROTHROMBIN TIME PATIENT 17.3 SEC (12.2-14.7)
[2019-06-18] MEDS ORDERED: LOSA50TA63 PO (12:41)
[2019-06-18 12:48] LABS: ALBUMIN 3.9 GM/DL (3.2-4.5); BILIRUBIN,TOTAL 0.8 MG/DL (0.1-1.0); CALCIUM 9.3 MG/DL (8.5-10.1); CREATININE SERUM 1.36 MG/DL (0.60-1.30); POTASSIUM 3.9 MMOL/L (3.6-5.0); TOTAL PROTEIN 6.9 GM/DL (6.4-8.2)
[2019-06-18] MEDS ORDERED: MULT1TAB69 PO (12:52)
[2019-06-18] MEDS ORDERED: fentaNYL INJECTION 100 MCG/2 ML AMP ONE (13:38)
[2019-06-18] MEDS ORDERED: MIDAZOLAM 5 MG/5 ML (VERSED) VIAL ONE (13:38)
--- NOTE | 2019-06-18 13:39 | NUR ---
SPOKE WITH PT (SHE HAD HER BOTTLES AND A LIST) WELL CALLING [facility] TO COMPLETE THE MED REC. PT HAD A VERY DETAILED LIST OF HER MEDICATIONS, WITH THAT LIST SHE WAS ABLE TO TELL ME HOW/WHEN SHE TAKES EACH MEDICATION. AMLODIPINE: DIRECTIONS SAY " 1 TAB BID" HOWEVER THE PT ONLY TAKE 1 TAB DAILY. WARFARIN: 2MG ON SUN, MON, WED, THUR & SAT 1MG ON TU & SUN THE FOLLOWING ARE FILL DATES: 02-01-2019 AMLODIPINE #180/180DS 03-20-2019 TOUJEO #1 BOX 04-19-2019 SIMVASTATIN #90/90DS 05-11-2019 GUANFACINE 05-11-2019 #90/90DS 05-15-2019 LOSARTAN #180/90DS 05-31-2019 FENOFIBRATE #90/90DS 05-31-2019 POTASSIUM #60/30DS 06-04-2019 HUMALOG 06-07-2019 ESCITALOPRAM #30/30DS 06-14-2019 LEVOTHYROXINE #30/30DS 06-14-2019 WARFARIN #27 06-16-2019 FUROSEMIDE #120/60DS OTC MEDS: ASPIRIN [employer] Addendum: 06/18/19 at 1355 by SHANTA SHANKS CPhT PT ALSO TAKES GENTLE MOVE (AN HERBAL LAXATIVE) TID WITH MEALS
[2019-06-18] MEDS ORDERED: [UNRECOGNIZED DRUG - OTHER] PO (13:55)
[2019-06-18] MEDS: NS IV 1000 ML 1,000 ML IV SCH ×2 (14:26→20:56)
[2019-06-18] MEDS ORDERED: NEO/POLY/BAC (NEOSPORIN) OINT 15 GM TUBE ONE (15:25)
[2019-06-18] MEDS ORDERED: NS IV 1000 ML 1,000 ML IV SCH (15:32)
--- NOTE | 2019-06-18 15:34 | Cardiac Procedure Note-CS/ASA ---
Pre-Procedure Note Pre-Op Procedure Note H&P Reviewed The H&P was reviewed, patient examined and no changes noted. Date H&P Reviewed: Jun 18, 2019 Time H&P Reviewed: 13:00 Conscious Sedation Pre-Proced Time 13:00 ASA Score 3 For ASA 3 and 4: Consider anesthesia and medical clearance. Also, for patients with a history of failed moderate sedation consider anesthesia. Airway Lungs Heart ASA score ASA 1: a normal healthy patient ASA 2: a patient with a mild systemic disease (mid diabetes, controlled hypertension, obesity x ASA 3: a patient with a severe systemic disease that limits activity (angina, COPD, prior Myocardial infarction) ASA 4: a patient with an incapacitating disease that is a constant threat to life (CHF, renal failure) ASA 5: a moribund patient not expected to survive 24 hrs. (ruptured aneurysm) ASA 6: a declared brain- patient whose organs are being harvested. For emergent operations, add the letter E after the classification Mallampati Classification Grade 3 Sedation Plan Analgesia, Amnesia, Plan communicated to team members, Discussed options with patient/fam, Discussed risks with patient/fam The patient is an appropriate candidate to undergo the planned procedure, sedation, and anesthesia. The patient immediately re-assessed prior to indication. MILADIS FISHER MD Jun 18, 2019 15:34 POS
--- NOTE | 2019-06-18 15:38 | Permanent Pacemaker Implant ---
Dual Chamber Pacemaker Implant PROCEDURE PHYSICIAN: Miladis Fisher DUAL CHAMBER PACEMAKER IMPLANTATION: DATE OF PROCEDURE: 06/18/19 INDICATION: sinus node dysfunction PREOPERATIVE DIAGNOSIS: sinus node dysfunction/paroxysmal atrial fibrillation POSTOPERATIVE DIAGNOSIS: same HISTORY: Dual-chamber permanent pacemaker was recommended. PROCEDURE PERFORMED: 1. Dual-chamber permanent pacemaker implantation. 2. Fluoroscopy. 3. Central venous access. ANESTHESIA: Local anesthesia, conscious sedation. COMPLICATIONS: None. ESTIMATED BLOOD LOSS:20 mL. SPECIMENS: None. ORAL ANTICOAGULATION: None. FLUOROSCOPY TIME: FLUOROSCOPY DOSE: CONTRAST DOSE: PROCEDURE DETAILS: The patient is a 73 female and after all of the patients questions were answered, the patient was brought to the EP Lab. The patient's left chest was prepped and draped in sterile fashion. A 2 inch horizontal incision was made 1 cm below the clavicle and dissection carried down to the pectoralis fascia. Using the modified Seldinger technique and under fluoroscopy guidance, the anterior aspect of the left axillary vein was accessed 2 times. The J wires were secured to the drapes with a mosquito clamp. A 7-Spanish sheath was introduced over one of the J-wires. The RV lead was then inserted. The RV lead was directed across the tricuspid valve to the apical septal portion of the right ventricle. The position was checked in [place]ER and MARTINEZ views. The screw was deployed and the lead connected to the senior mainframe programmer analyst. Close sensing and pacing thresholds were obtained. Diaphragmatic pacing was ruled out. The lead was secured with 2-0 silk ties to the underlying muscle and fascia. Next, a 7-Spanish sheath was introduced through the remaining J-wire. An atrial lead was then introduced and guided to the level of the right appendage. The screw was deployed and the lead was connected to the interrogator. Good sensing and pacing thresholds were obtained. Diaphragmatic pacing was ruled out. The leads were secured with 2-0 silk ties to the underlying muscle and fascia. The leads were connected to the device in a hermetic fashion. The device and leads were placed in the pocket. Aggressive irrigation with saline solution was done. The device was secured to the underlying muscle and fascia with a 2-0 silk tie. interrogation of the device revealed good integrity of all the leads and good connections. The wound was then closed using 2 layers. The first layer was interrupted 2-0 absorbable Vicryl suture. The last layer was a single subcuticular layer with 4- 0 Vicryl suture. Half inch Steri-Strips and a small dressing were then applied to the wound. The patient tolerated the procedure well and was returned to the recovery room in stable condition with stable vital signs. DEVICE INFORMATION: SAMMI GOVEA KAYLEIGH [id number] RA LEAD: [id number] RV LEAD: [id number] PER-OPERATIVE DEVICE INTERROGATION: good sensing and capture activity IMMEDIATE POSTOPERATIVE DEVICE INTERROGATION: good sensing and contractility Right atrium, bipolar, 0.4 ms at 1.375 V, impedance 361, P-wave 1.3 Right ventricle, bipolar, 0.4 ms at 0.75 V, impedance 475, R waves 5.4 PLAN: The patient transferred to the ICU. We will continue with two more doses of IV antibiotics. We will check a chest x-ray and interrogate the device in the morning. The patient will continue on oral antibiotics for 5 days. CONCLUSION: Successful dual-chamber pacemaker implantation with no complication FINAL DIAGNOSIS: Sinus node dysfunction Paroxysmal atrial fibrillation Hypertension Hyperlipidemia MILADIS FISHER MD Jun 18, 2019 15:38 POS
[2019-06-18] MEDS ORDERED: warFARin 2 MG (COUMADIN) TAB PO SCH ×3 (15:45→18:00)
[2019-06-18] MEDS ORDERED: PATIENT MAY USE OWN MEDS, ALL PO SCH (15:45)
[2019-06-18] MEDS ORDERED: NON-FORMULARY MEDICATION 1 EA EA (Insulin Lispro (Humalog Kwikpen) 5 UNIT) SQ SCH (16:00)
--- NOTE | 2019-06-18 16:01 | Diagnostic Imaging Report ---
INDICATION: Cardiac dysrhythmia. Upright portable AP view of the chest is obtained with comparison made to study of 06/18/2019. There is mild cardiomegaly similar to previous study. There has been placement of left anterior chest wall dual-chamber cardiac pacemaker with development of pulmonary venous congestion. No pneumothorax, consolidation or overt edema is identified. IMPRESSION: Pulmonary venous congestion post pacemaker placement. Dictated by: Dictated on workstation # [id number]
[2019-06-18] MEDS: ceFAZolin INJECTION 1,000 MG in WATER (STERILE) FOR INJECTION 10 ML IV SCH (17:42)
[2019-06-18] MEDS: KCL 20 MEQ TAB (K-DUR) PO SCH (17:42)
[2019-06-18] MEDS ORDERED: ACETAMINOPHEN 325 MG TABLET PO PRN (20:45)
[2019-06-18] MEDS ORDERED: SIMvastatin 20 MG (ZOCOR) TAB PO SCH (21:00)
[2019-06-18] MEDS ORDERED: FENOFIBRATE 134 MG (LOFIBRA) CAPSULE PO SCH (21:00)
[2019-06-18] MEDS ORDERED: KCL 20 MEQ TAB (K-DUR) PO SCH (21:00)
[2019-06-18] MEDS ORDERED: LOSARTAN 100 MG (COZAAR) TABLET PO SCH (21:00)
[2019-06-18] MEDS ORDERED: NON-FORMULARY MEDICATION 1 EA EA (Fenofibrate Nanocrystallized (Fenofibrate) 145 MG) PO SCH (21:00)
[2019-06-18] MEDS ORDERED: NON-FORMULARY MEDICATION 1 EA EA (Losartan Potassium 100 MG) PO SCH (21:00)
[2019-06-18] MEDS ORDERED: NON-FORMULARY MEDICATION 1 EA EA (Escitalopram Oxalate 5 MG) PO SCH (21:00)
[2019-06-19 00:04] VITALS: BP 143/56
[2019-06-19] MEDS: ceFAZolin INJECTION 1,000 MG in WATER (STERILE) FOR INJECTION 10 ML IV SCH ×2 (02:21→10:05)
[2019-06-19 03:03] LABS: HEMOGLOBIN 9.6 G/DL (11.5-16.0); MEAN PLATELET VOLUME 10.6 FL (7.4-10.4); RED CELL DISTRIBUTION WIDTH 16.1 % (10.0-14.5); WHITE BLOOD COUNT 4.3 10^3/uL (4.3-11.0)
[2019-06-19 03:42] LABS: ALBUMIN 3.1 GM/DL (3.2-4.5); BILIRUBIN,TOTAL 0.5 MG/DL (0.1-1.0); CALCIUM 8.6 MG/DL (8.5-10.1); CREATININE SERUM 1.46 MG/DL (0.60-1.30); POTASSIUM 3.6 MMOL/L (3.6-5.0); TOTAL PROTEIN 5.5 GM/DL (6.4-8.2)
[2019-06-19 04:10] VITALS: BP 129/60
[2019-06-19] MEDS: KCL 20 MEQ TAB (K-DUR) PO SCH (06:07)
[2019-06-19] MEDS ORDERED: LEVOTHYROXINE 50 MCG (LEVOTHROID) TAB PO SCH (06:30)
[2019-06-19] MEDS ORDERED: MULTIVIT W/MINERALS TAB (THERAGRAN M) PO SCH (07:00)
--- NOTE | 2019-06-19 07:21 | Cardiology Progress Note ---
Subjective Date Seen by Provider: Jun 19, 2019 Time Seen by Provider: 07:20 Subjective/Events-last exam Patient is laying down in bed, feeling better. No new complaint. Review of Systems General: No Chills, No Night Sweats, No Fatigue, No Malaise, No Appetite, No Other HEENT: No Head Aches, No Visual Changes, No Eye Pain, No Ear Pain, No Dysphasia, No Sinus Congestion, No Post Nasal Drip, No Sore Throat, No Other Pulmonary: No Dyspnea, No Cough, No Pleuritic Chest Pain, No Other Cardiovascular: No: Chest Pain, Palpitations, Orthopnea, Paroxysmal Noc. Dyspnea, Edema, Lt Headedness, Other Objective-Cardiology Exam Last Set of Vital Signs Vital Signs 06/19/19 06/19/19 04:10 04:11 Temp 36.6 Pulse 61 Resp 20 B/P (MAP) 129/60 (83) Pulse Ox 90 O2 Delivery Room Air Capillary Refill : I&O Intake and Output 06/19/19 00:00 Daily Weight Change No General: Alert, Oriented X3, Cooperative HEENT: Atraumatic, PERRLA Neck: Supple, No JVD, No Thyromegaly Lungs: Clear to Auscultation, Normal Air Movement Heart: Regular Rate, Normal S1, Normal S2, No Murmurs Abdomen: Normal Bowel Sounds, Soft, No Tenderness, No Hepatosplenomegaly, No Masses Extremities: No Clubbing, No Cyanosis, No Edema, Normal Pulses, No Tenderness/Swelling Skin: No Rashes, No Breakdown, No Significant Lesion Neuro: Normal Gait, Normal Speech, Strength at 5/5 X4 Ext, Normal Tone, Sensation Intact Psych/Mental Status: Mental Status NL, Mood NL Results Lab Laboratory Tests 06/18/19 12:14 06/19/19 02:30 A/P-Cardiology Admission Diagnosis Sinus node dysfunction Bradycardia PVC Hypertension Assessment/Plan Sinus node dysfunction, status post dual-chamber pacemaker implantation, site is healing well Severe bradycardia, at her at this time being paced rhythm Hypertension, controlled monitor blood pressure Frequent PVCs, starting low-dose beta blockers MILADIS FISHER MD Jun 19, 2019 07:21 POS
[2019-06-19] MEDS ORDERED: METO-351 PO (07:22)
[2019-06-19] MEDS ORDERED: CEFU500T63 PO (07:22)
[2019-06-19] MEDS ORDERED: NON-FORMULARY MEDICATION 1 EA EA (Amlodipine Besylate 5 MG) PO SCH (09:00)
[2019-06-19] MEDS ORDERED: ASPIRIN E.C. 81 MG (ECOTRIN) TAB PO SCH (09:00)
[2019-06-19] MEDS ORDERED: FUROSEMIDE 20 MG (LASIX) TAB PO SCH (09:00)
[2019-06-19] MEDS ORDERED: NON-FORMULARY MEDICATION 1 EA EA (Guanfacine HCl 1 MG) PO SCH (09:00)
[2019-06-19] MEDS ORDERED: amLODIPine 5 MG (NORVASC) TAB PO SCH (09:00)
--- NOTE | 2019-06-19 10:51 | NUR ---
THIS NURSE NOTIFIED DR FISHER [facility] HAS BEEN BY AND SEEN THE PT AND THEY ARE SENDING DR FISHER THE REPORT. DR FISHER SAID PT IS OKAY TO DC.
[2019-06-19 10:55] LABS: BILIRUBIN,URINE NEGATIVE (NEGATIVE); CLARITY,URINE CLEAR; COLOR,URINE YELLOW; GLUCOSE, URINE (UA) NEGATIVE (NEGATIVE); KETONES,URINE NEGATIVE (NEGATIVE); LEUKOCYTE ESTERASE ,URINE NEGATIVE (NEGATIVE); NITRITE,URINE NEGATIVE (NEGATIVE); PH,URINE 6.5 (5-9); PROTEIN,URINE NEGATIVE (NEGATIVE)
[2019-06-19 11:03] LABS: BACTERIA,URINE NEGATIVE /HPF; SQUAMOUS EPITHELIAL CELL,UR 0-2 /HPF; WBC,URINE RARE /HPF
[2019-06-19] MEDS ORDERED: inSUlin ASPART (NovoLOG) 1 UNIT/0.01 ML (CHARGE PER UNIT) SC SCH (17:30)
[2019-06-20] MEDS ORDERED: warFARin 2 MG (COUMADIN) TAB PO SCH (18:00)
== END 2019-06-19 12:15 | disposition home or self-care (01) ==
LOC: CATH 11:44 → ICU 15:50 → CATH 06-19 12:15
PROVIDERS: ATTEND Internal Medicine Cardiovascular Disease
DX: I48.0 Paroxysmal atrial fibrillation (principal); I48.19 Other persistent atrial fibrillation; I49.5 Sick sinus syndrome; I25.10 Atherosclerotic heart disease of native coronary artery without angina pectoris; E11.9 Type 2 diabetes mellitus without complications; I10 Essential (primary) hypertension; E78.5 Hyperlipidemia, unspecified; I35.8 Other nonrheumatic aortic valve disorders; I65.23 Occlusion and stenosis of bilateral carotid arteries; Z95.1 Presence of aortocoronary bypass graft; Z79.01 Long term (current) use of anticoagulants; Z79.4 Long term (current) use of insulin; Z79.899 Other long term (current) drug therapy; Z88.2 Allergy status to sulfonamides; Z96.659 Presence of unspecified artificial knee joint; Z79.82 Long term (current) use of aspirin
CPT/HCPCS: 33208; 36415; 71045; 80053; 80061; 81000; 85027; 85610; 85730; 87081; 93005

== ENCOUNTER → 2020-05-11 | Outpatient (CLI) | payer MEDICARE, OTHER ==
[~2020-05-11] MED LIST changes: +ACHD5005 PO; +ASPI-1238 PO; -ASPI-983 PO; +CEFU500T63 PO; +FENO145T26 PO; -FENO145T37 PO; -HYDR-3812 PO; +LOSA50TA63 PO; +METF-865 PO; -METF500T8 PO; +METO-351 PO; -METO-370 PO; +METO50TA7 PO; +MULT-567 PO; -MULT1TAB69 PO; +SIMV20TA26 PO; -SIMV20TA3 PO; +[UNRECOGNIZED DRUG - OTHER] PO
--- NOTE | 2020-05-11 13:21 | Diagnostic Imaging Report ---
INDICATION: Routine screening. COMPARISON: 05/21/2019 and 05/20/2018. TECHNIQUE: 2D and 3D bilateral screening mammography was performed with CAD. FINDINGS: Both breasts are heterogeneously dense, limiting the sensitivity of mammography. There are benign parenchymal and vascular calcifications bilaterally. No dominant mass or malignant appearing microcalcifications are seen. The axillae are unremarkable. IMPRESSION: No mammographic features suspicious for malignancy are identified. ACR BI-RADS Category 2: Benign findings. Result letter will be mailed to the patient. Note: At least 10% of breast cancer is not imaged by mammography. Dictated by: Dictated on workstation # [id number]
--- NOTE | 2020-05-11 13:38 | Diagnostic Imaging Report ---
INDICATION: Postmenopausal state. COMPARISON: December 04, 2008 FINDINGS: AP Spine L1-L4: [BMD (g/cm2): 1.294] [T-Score: 0.8] [Z-Score: 1.4] [BMD Previous: 1.519] [BMD % Change: -14.8] LT Hip Neck: [BMD (g/cm2): 1.104] [T-Score: 0.5] [Z-Score: 1.6] LT Hip Total: [BMD (g/cm2):1.123] [T-Score:0.9] [Z-Score: 1.8] [BMD Previous: 1.466] [BMD % Change: -23.4] RT Hip Neck: [BMD (g/cm2):1.099] [T-Score:0.4] [Z-Score:1.6] RT Hip Total: [BMD (g/cm2):1.172] [T-score:1.3] [Z-Score:2.2] [BMD Previous:1.552] [BMD % Change:-24.5] *Indicates significant change from prior examination based on 95% confidence level. World Health Organization criteria for BMD interpretation classify patients as Normal (T-score at or above -1.0), Osteopenic (T-score between -1.0 and -2.5) or Osteoporotic (T-score at or below -2.5). LIMITATIONS AND MODIFICATION: None. IMPRESSION: 1. Normal bone mineral density. 2. No significant change in bone mineral density since prior examination. 3. See below National Osteoporosis Foundation guidelines on when to potentially initiate pharmacologic therapy. Based on the National Osteoporosis Foundation Guidelines, pharmacologic treatment should be initiated in any of the following, unless clinical conditions suggest otherwise: * Any patient with prior fragility fracture of the hip or vertebrae. A spine fracture indicates 5X risk for subsequent spine fracture and 2X risk for subsequent hip fracture. * Osteoporosis (T-score <-2.5). * Postmenopausal women and men age 50 and older with low bone mass/osteopenia (T-score between -1.0 and -2.5) by DXA and 10-year major osteoporotic fracture greater than 20% or a 10-year probability of hip fracture greater than 3%. These fracture risks are supplied above in the FRAX score, if applicable. * Clinician judgement and/or patient preferences may indicate treatment for people with 10-year fracture probabilities above or below these levels. Dictated by: Dictated on workstation # [id number]
== END ==
LOC: RAD 10:08
PROVIDERS: ATTEND Family Medicine
DX: Z12.31 Encounter for screening mammogram for malignant neoplasm of breast (principal); Z78.0 Asymptomatic menopausal state
CPT/HCPCS: 77063; 77067; 77080

== ENCOUNTER → 2020-06-28 | Outpatient (CLI) | payer MEDICARE, OTHER ==
[~2020-06-28] MED LIST changes: -AMIO200T4 PO; +AMIO200T6 PO; +AMLO-250 PO; -AMLO5TAB9 PO
== END ==
LOC: CARD 12:42
PROVIDERS: ATTEND Internal Medicine Cardiovascular Disease
DX: I08.1 Rheumatic disorders of both mitral and tricuspid valves (principal)
CPT/HCPCS: 93306

== ENCOUNTER → 2020-11-04 | Outpatient (CLI) | payer MEDICARE, OTHER ==
[~2020-11-04] MED LIST changes: -ESCI5TAB12 PO; +ESCI5TAB16 PO; -LISI-556 PO; +LISI-729 PO
--- NOTE | 2020-11-04 12:13 | Diagnostic Imaging Report ---
PROCEDURE: US Renal Bilateral. TECHNIQUE: Multiple real-time grayscale images were obtained over the kidneys in various projections bilaterally. INDICATION: Chronic kidney disease. Comparison made with prior examination 08/02/2018. FINDINGS: Right kidney measures 11.2 x 4.2 x 6.7 cm. Left kidney measures 13.1 x 4.6 x 4 cm. Both kidneys demonstrate normal renal cortical thickness and echogenicity. There is no hydronephrosis or calculi. There is a cyst in the left kidney measuring 4.6 x 3.9 x 3.4 cm. The prevoid bladder volume is 152 mL. Both ureteral jets were visualized. The post void residual bladder volume is 0. IMPRESSION: 4.6 cm cyst in the left kidney otherwise unremarkable sonographic appearance of the kidneys. Dictated by: Dictated on workstation # [id number]
== END ==
LOC: RAD 10:43
PROVIDERS: ATTEND Internal Medicine Nephrology
DX: N18.32 Chronic kidney disease, stage 3b (principal); N28.1 Cyst of kidney, acquired
CPT/HCPCS: 76770

== ENCOUNTER → 2021-01-17 | Outpatient (CLI) | payer MEDICARE, OTHER ==
[~2021-01-17] VITALS: Ht 165 cm; Wt 109.0 kg
[~2021-01-17] MED LIST changes: +REGADENOSON 0.4 MG/5 ML SYR (LEXISCAN) IV ONE
[2021-01-17] MEDS: CATHETER FLUSH 10 ML SYR IV PRN ×2 (07:52→09:25)
[2021-01-17 09:24] VITALS: BP 173/103
--- NOTE | 2021-01-17 12:17 | Cardiology Stress Test Report ---
Stress Test Report Date of Procedure/Referring: Date of Procedure: Jan 17, 2021 PCP Miladis Andrews MD Admitting Physician Daisy Garcia MD Indications: CP Baseline Heart Rate: 89 Baseline Blood Pressure: Blood Pressure Systolic: 173 Blood Pressure Diastolic: 103 Baseline Vitals Vital Signs Date Time Temp Pulse Resp B/P (MAP) Pulse Ox O2 Delivery O2 Flow Rate FiO2 01/17/21 09:24 94 16 173/103 (126) 90 Room Air Baseline EKG: Baseline EKG: LBBB Summary After explaining the procedure to the patient, she signed a consent and then brought to the stress nuclear laboratory. Patient received 0.4 mg Lexiscan for stress test, ECG, heart rate and blood pressure were monitored continuously. Resting and stress dose of radio tracer were injected, imaging was acquired and reviewed in short axis, horizontal long axis and vertical long axis views. TID: 1.16 SSS: 23 SDS: 0 EF: 42 1. Patient tolerated Lexiscan well 2. Baseline left bundle branch block persisted during test 3. Fixed defect involving the whole inferior wall and inferolateral wall 4. Normal left ventricular size, hypokinesia of the inferior wall, EF 42% MILADIS ANDREWS MD Jan 17, 2021 12:17
== END ==
LOC: CARD 08:00
PROVIDERS: ATTEND Internal Medicine Cardiovascular Disease
DX: R07.9 Chest pain, unspecified (principal)
CPT/HCPCS: 78452; 93017; A9502

== ENCOUNTER 2021-02-05 12:27 | Emergency (ER) | payer MEDICARE, OTHER ==
[~2021-02-05] VITALS: Ht 165 cm; Wt 108.0 kg
[~2021-02-05 12:27] MED LIST changes: -REGADENOSON 0.4 MG/5 ML SYR (LEXISCAN) IV ONE
[2021-02-05 13:09] LABS: BASOPHILS % (AUTO) 1 % (0-10); EOSINOPHILS # (AUTO) 0.1 10^3/uL (0.0-0.3); EOSINOPHILS % (AUTO) 2 % (0-10); HEMATOCRIT 34 % (35-52); HEMOGLOBIN 10.7 g/dL (11.5-16.0); LYMPHOCYTES # (AUTO) 1.2 10^3/uL (1.0-4.0); LYMPHOCYTES % (AUTO) 18 % (12-44); MEAN CORPUSCULAR HEMOGLOBIN 28 pg (25-34); MEAN CORPUSCULAR HGB CONC 32 g/dL (32-36); MEAN CORPUSCULAR VOLUME 88 fL (80-99); MEAN PLATELET VOLUME 10.9 fL (9.0-12.2); MONOCYTES # (AUTO) 0.6 10^3/uL (0.0-1.0); MONOCYTES % (AUTO) 10 % (0-12); NEUTROPHILS # (AUTO) 4.4 10^3/uL (1.8-7.8); NEUTROPHILS % (AUTO) 69 % (42-75); PLATELET COUNT 220 10^3/uL (130-400); WHITE BLOOD COUNT 6.3 10^3/uL (4.3-11.0)
[2021-02-05 13:21] LABS: ALBUMIN 3.2 GM/DL (3.2-4.5); POTASSIUM 3.7 MMOL/L (3.6-5.0)
[2021-02-05 13:22] LABS: CALCIUM 8.3 MG/DL (8.5-10.1)
--- NOTE | 2021-02-05 13:22 | ED Lower Extremity ---
General Chief Complaint: Lower Extremity Stated Complaint: R LEG REDNESS/PAIN/HOT TO TOUCH Nursing Triage Note: pt presents to ed via pov from with complaints of r thigh pain/swelling since . Source: patient Exam Limitations: no limitations History of Present Illness Date Seen by Provider: Feb 05, 2021 Time Seen by Provider: 13:19 Initial Comments To ER with reports of right leg and thigh pain for about 48 hours. She has some swelling as well. She is on Coumadin and her last INR on the sixth of this month was 2.7. She has had a CABG with saphenous vein harvesting from the right lower extremity so it intermittently swells but never becomes red. Onset: just prior to arrival Severity: moderate Pain/Injury Location: right leg Method of Injury: fell Modifying Factors: Worse With Movement Allergies and Home Medications Allergies Coded Allergies: Sulfa (Sulfonamide Antibiotics) (Verified Allergy, Intermediate, 06/18/19) since childhood Uncoded Allergies: TAPE (Adverse Reaction, Unknown, 04/05/17) Home Medications Amlodipine Besylate 5 Mg Tablet, 5 MG PO DAILY, (Reported) Aspirin 81 Mg Tablet.dr, 81 MG PO DAILY, (Reported) Cefuroxime Axetil 500 Mg Tablet, 500 MG PO BID Prescribed by: MILADIS FISHER on 06/19/19721 Cyanocobalamin 1,000 Mcg/Ml Inj, 1,000 MCG IJ MONTHLY, (Reported) Escitalopram Oxalate 5 Mg Tablet, 5 MG PO HS, (Reported) Fenofibrate Nanocrystallized 145 Mg Tablet, 145 MG PO HS, (Reported) Furosemide 20 Mg Tablet, 40 MG PO DAILY, (Reported) TAKES 2 (20MG) TABS TO EQUAL A 40MG Guanfacine HCl 1 Mg Tablet, 1 MG PO DAILY, (Reported) Insulin Glargine,Hum.rec.anlog 300 Unit/1 Ml Insuln.pen, 26 UNIT SQ HS, (Reported) Insulin Lispro 100 Unit/1 Ml Insuln.pen, 5 UNIT SQ TIDAC, (Reported) Levothyroxine Sodium 50 Mcg Tablet, 50 MCG PO DAILY, (Reported) Losartan Potassium 50 Mg Tablet, 100 MG PO HS, (Reported) TAKES 2 (50MG) TABS TO EQUAL 100MG Metoprolol Succinate 25 Mg Tab.er.24h, 25 MG PO DAILY Prescribed by: MILADIS FISHER on 06/19/19721 Multivitamin 1 Each Tablet, 1 EACH PO DAILY, (Reported) Potassium Chloride 20 Meq Tab.er.prt, 20 MEQ PO BID, (Reported) Simvastatin 20 Mg Tablet, 20 MG PO HS, (Reported) Warfarin Sodium 2 Mg Tablet, 2 MG PO MONSALVE,MO,WE,TH,SAT, (Reported) Warfarin Sodium 2 Mg Tablet, 1 MG PO TUE,FRI, (Reported) [Gentle Move] , 1 CAP PO TIDWM, (Reported) Patient Home Medication List Home Medication List Reviewed: Yes Review of Systems Constitutional: see HPI EENTM: see HPI Respiratory: no symptoms reported Cardiovascular: no symptoms reported Genitourinary: no symptoms reported Musculoskeletal: see HPI Skin: no symptoms reported Psychiatric/Neurological: No Symptoms Reported Past Ggmjjdf-Irrsfg-Wtitta Hx Patient Social History Tobacco Use?: No Smoking Status: Never a Smoker Use of E-Cig and/or Vaping dev: No Substance use?: No Alcohol Use?: No Pt feels they are or have been: No Immunizations Up To Date PED Vaccines UTD: No First/Initial COVID19 Vaccinat: 10-11-20 Second COVID19 Vaccination Nathanael: 11-13-20 COVID19 Vaccine Radiation Control Health Physicist: modernkyle Seasonal Allergies Seasonal Allergies: Yes Past Medical History Surgery/Hospitalization HX: r total knee, veins for cabg from r leg. cabg. pmh: DM-2, HTN, high chol, thyroid. 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 Sexually Transmitted Disease: No HIV/AIDS: No Genitourinary: Yes (SEES DR KOWALSKI FOR KIDNEY FUNCTION) Gastrointestinal: No Musculoskeletal: Yes Arthritis Endocrine: Yes Diabetes, Non-Insulin dep HEENT: Yes Cataract Loss of Vision: Denies Hearing Impairment: Denies Cancer: No Did You Recieve Any Treatments: No Psychosocial: Yes Anxiety, Depression Integumentary: No Family Medical History Completed stroke G8 SISTER Diabetes mellitus 19 MOTHER G8 SISTER Hypertension 19 MOTHER Myocardial infarction 19 FATHER G8 SISTER Heart Disease, Diabetes, Hypertension, Stroke Physical Exam Vital Signs Vital Signs - First Documented 02/05/21 12:55 Temp 37.1 Pulse 66 Resp 18 B/P (MAP) 147/67 (93) Pulse Ox 98 Capillary Refill : Less Than 3 Seconds Height, Weight, BMI Height: 5'5.00" Weight: 206lbs. 0.0oz. 93.566039wy; 39.00 BMI Method:Stated General Appearance: WD/WN, no apparent distress HEENT: PERRL/EOMI, normal ENT inspection Respiratory: no respiratory distress, no accessory muscle use Hips: bilateral hip non-tender, bilateral hip normal inspection, bilateral hip normal range of motion Legs: bilateral leg non-tender, bilateral leg normal inspection, bilateral leg normal range of motion; right leg other (is a palm sized patch of erythema to the anterior lower leg just above the ankle. There is then some i more widespread erythema to the anterior and medial aspect of the thigh.) Knees: bilateral knee non-tender, bilateral knee normal inspection, bilateral knee normal range of motion Ankles: bilateral ankle non-tender Feet: bilateral foot non-tender, bilateral foot normal inspection, bilateral foot normal range of motion Neurologic/Psychiatric: alert, normal mood/affect, oriented x 3 Skin: normal color, warm/dry Progress/Results/Core Measures Results/Orders Lab Results Laboratory Tests Test 02/05/21 13:07 Range/Units White Blood Count 6.3 4.3-11.0 10^3/uL Red Blood Count 3.80 3.80-5.11 10^6/uL Hemoglobin 10.7 L 11.5-16.0 g/dL Hematocrit 34 L 35-52 % Mean Corpuscular Volume 88 80-99 fL Mean Corpuscular Hemoglobin 28 25-34 pg Mean Corpuscular Hemoglobin Concent 32 32-36 g/dL Red Cell Distribution Width 15.4 H 10.0-14.5 % Platelet Count 220 130-400 10^3/uL Mean Platelet Volume 10.9 9.0-12.2 fL Immature Granulocyte % (Auto) 1 % Neutrophils (%) (Auto) 69 42-75 % Lymphocytes (%) (Auto) 18 12-44 % Monocytes (%) (Auto) 10 0-12 % Eosinophils (%) (Auto) 2 0-10 % Basophils (%) (Auto) 1 0-10 % Neutrophils # (Auto) 4.4 1.8-7.8 10^3/uL Lymphocytes # (Auto) 1.2 1.0-4.0 10^3/uL Monocytes # (Auto) 0.6 0.0-1.0 10^3/uL Eosinophils # (Auto) 0.1 0.0-0.3 10^3/uL Basophils # (Auto) 0.0 0.0-0.1 10^3/uL Immature Granulocyte # (Auto) 0.0 0.0-0.1 10^3/uL Prothrombin Time 33.6 H 12.2-14.7 SEC INR Comment 3.3 H 0.8-1.4 Activated Partial Thromboplast Time 89 H 24-35 SEC D-Dimer < 0.27 0.00-0.49 UG/ML Sodium Level 135 135-145 MMOL/L Potassium Level 3.7 3.6-5.0 MMOL/L Chloride Level 99 98-107 MMOL/L Carbon Dioxide Level 27 21-32 MMOL/L Anion Gap 9 5-14 MMOL/L Blood Urea Nitrogen 16 7-18 MG/DL Creatinine 1.34 H 0.60-1.30 MG/DL Estimat Glomerular Filtration Rate 38 BUN/Creatinine Ratio 12 Glucose Level 215 H 70-105 MG/DL Lactic Acid Level 0.89 0.50-2.00 MMOL/L Calcium Level 8.3 L 8.5-10.1 MG/DL Corrected Calcium 8.9 8.5-10.1 MG/DL Total Bilirubin 0.9 0.1-1.0 MG/DL Aspartate Amino Transf (AST/SGOT) 84 H 5-34 U/L Alanine Aminotransferase (ALT/SGPT) 95 H 0-55 U/L Alkaline Phosphatase 43 40-136 U/L Total Protein 6.2 L 6.4-8.2 GM/DL Albumin 3.2 3.2-4.5 GM/DL My Orders Orders - BAUTISTA HOBSON LEARNING OPERATIONS SPECIALIST Cbc With Automated Diff (02/05/21 12:44) Comprehensive Metabolic Panel (02/05/21 12:44) Fibrin Degradation Products (02/05/21 12:44) Ed Iv/Invasive Line Start (02/05/21 12:44) Protime With Inr (02/05/21 12:44) Blood Culture (02/05/21 12:49) Sputum Culture (02/05/21 12:49) Urinalysis (02/05/21 12:49) Urine Culture (02/05/21 12:49) Partial Thromboplastin Time (02/05/21 12:49) Vital Signs Adult Sepsis Patie Q15M (02/05/21 12:49) O2 (02/05/21 12:49) Remove Rings In Anticipation O (02/05/21 12:49) Lactic Acid Analyzer (02/05/21 12:49) Ceftriaxone (Rocephin) (02/05/21 13:45) Vital Signs/I&O 02/05/21 12:55 Temp 37.1 Pulse 66 Resp 18 B/P (MAP) 147/67 (93) Pulse Ox 98 Blood Pressure Mean: 93 Departure Impression Primary Impression: Cellulitis of right lower extremity Disposition: HOME, SELF-CARE Condition: Stable Departure-Patient Inst. Decision time for Depature: 13:44 Referrals: SANDY LAIRD MD (PCP/Family) Primary Care Physician Patient Instructions: Cellulitis (Skin Infection), Adult ED Scripts Amoxicillin/Potassium Clav (Augmentin 875-125 Tablet) 1 Each Tablet 1 EACH PO BID, #14 TAB 0 Refills Prov: BAUTISTA HOBSON APRN 02/05/21 BAUTISTA HOBSON APRN Feb 05, 2021 13:22
[2021-02-05 13:23] LABS: TOTAL PROTEIN 6.2 GM/DL (6.4-8.2)
[2021-02-05 13:25] LABS: BILIRUBIN,TOTAL 0.9 MG/DL (0.1-1.0)
[2021-02-05 13:27] LABS: CREATININE SERUM 1.34 MG/DL (0.60-1.30)
[2021-02-05 13:30] LABS: FIBRIN DEGRADATION PRODUCTS < 0.27 UG/ML (0.00-0.49); INR 3.3 (0.8-1.4); PARTIAL THROMBOPLASTIN TIME 89 SEC (24-35); PROTHROMBIN TIME PATIENT 33.6 SEC (12.2-14.7)
[2021-02-05] MEDS ORDERED: AMOX-358 PO (13:44)
[2021-02-05] MEDS ORDERED: cefTRIAXone 1,000 MG in WATER (STERILE) FOR INJECTION 10 ML IV ONE (13:45)
[2021-02-05 14:15] VITALS: BP 145/62
== END 2021-02-05 14:15 | disposition home or self-care (01) ==
LOC: EDUNIT# 12:27 → ER 12:28
DX: L03.115 Cellulitis of right lower limb (principal); I10 Essential (primary) hypertension; E78.00 Pure hypercholesterolemia, unspecified; I25.10 Atherosclerotic heart disease of native coronary artery without angina pectoris; E11.9 Type 2 diabetes mellitus without complications; F41.9 Anxiety disorder, unspecified; F32.9 Major depressive disorder, single episode, unspecified; Z95.1 Presence of aortocoronary bypass graft; Z79.899 Other long term (current) drug therapy; Z79.01 Long term (current) use of anticoagulants; Z79.82 Long term (current) use of aspirin
CPT/HCPCS: 36415; 80053; 83605; 85025; 85379; 85610; 85730; 87040

== ENCOUNTER → 2021-05-13 | Outpatient (CLI) | payer MEDICARE, OTHER ==
[~2021-05-13] MED LIST changes: +AMOX-358 PO
--- NOTE | 2021-05-13 14:08 | Diagnostic Imaging Report ---
Indication: Routine screening. Comparison is made with prior mammogram from 05/11/2020 and 05/21/2019. 2-D and 3-D bilateral screening mammography was performed with CAD. Both breast are heterogeneously dense, limiting the sensitivity of mammography. There are benign parenchymal and vascular calcifications in both breasts. No mass or malignant-appearing microcalcifications are seen. Axillae are unremarkable. IMPRESSION: BI-RADS Category 2 No mammographic features suspicious for malignancy are identified. ACR BI-RADS Category 2: Benign findings. Result letter will be mailed to the patient. Note: At least 10% of breast cancer is not imaged by mammography. Dictated by: Dictated on workstation # [id number]
== END ==
LOC: RAD 10:45
PROVIDERS: ATTEND Family Medicine
DX: Z12.31 Encounter for screening mammogram for malignant neoplasm of breast (principal)
CPT/HCPCS: 77063; 77067

== ENCOUNTER → 2021-09-07 | Outpatient (CLI) | payer MEDICARE, OTHER ==
[~2021-09-07] VITALS: Ht 165.1 cm; Wt 115.7 kg
[~2021-09-07] MED LIST changes: -AMIO200T6 PO; +AMIO200T65 PO; -LISI-729 PO; +LISI5TAB20 PO; +POTA-169 PO; -POTA20TA8 PO
== END | disposition home or self-care (01) ==
LOC: PREOP 05:32
PROVIDERS: ATTEND Surgery
DX: Z01.818 Encounter for other preprocedural examination (principal)

== ENCOUNTER 2021-09-08 11:25 | Emergency (ER) | payer MEDICARE, OTHER ==
[~2021-09-08] VITALS: Ht 165 cm; Wt 113.0 kg
[2021-09-08] MEDS ORDERED: TETANUS,DIPTH,PERTUSS P/F (BOOSTRIX) 0.5 ML VIAL IM ONE (11:30)
[2021-09-08] MEDS ORDERED: LIDOCAINE/EPI 1%-1:100,000 (XYLOCAINE) 10 ML INJ ONE (11:30)
--- NOTE | 2021-09-08 11:32 | ED Fall/Injury ---
General Chief Complaint: Trauma-Non Activation Stated Complaint: FALL Source: patient Exam Limitations: no limitations History of Present Illness Date Seen by Provider: Sep 08, 2021 Time Seen by Provider: 11:30 Initial Comments To ER by EMS from home with reports of a fall with head injury. She was bending over to exchange bins on her paper shredder. She has some chronic low back pain. She was bent forward and her back was really bothering her so she stood up and then became dizzy and fell backwards striking the back of her head. No loss of consciousness no neck pain. She has a laceration to the posterior midline scalp with minimal oozing of blood. No other injuries. She states her back pain is unchanged from prior. Occurred: just prior to arrival Severity: moderate Context: unknown Loss of Consciousness: no loss of consciousness Associated Symptoms (Fall): Denies Symptoms Allergies and Home Medications Allergies Coded Allergies: Sulfa (Sulfonamide Antibiotics) (Verified Allergy, Intermediate, 06/18/19) since childhood tetanus and diphtheria toxoids (Verified Allergy, Unknown, RASH, 09/08/21) Uncoded Allergies: TAPE (Adverse Reaction, Unknown, 04/05/17) Patient Home Medication List Home Medication List Reviewed: Yes Amlodipine Besylate (Amlodipine Besylate) 5 Mg Tablet, 5 MG PO DAILY, (Reported) Entered as Reported by: ARNOLD BENTLEY on 10/02/18 0741 Amoxicillin/Potassium Clav (Augmentin 875-125 Tablet) 1 Each Tablet, 1 EACH PO BID Prescribed by: BAUTISTA HOBSON on 02/05/21 1344 Aspirin (Aspirin EC) 81 Mg Tablet.dr, 81 MG PO DAILY, (Reported) Entered as Reported by: ARNOLD BENTLEY on 10/02/18 0741 Cefuroxime Axetil (Cefuroxime) 500 Mg Tablet, 500 MG PO BID Prescribed by: MILADIS FISHER on 06/19/19 0722 Cyanocobalamin (Cyanocobalamin Injection) 1,000 Mcg/Ml Inj, 1,000 MCG IJ MONTHLY, (Reported) Entered as Reported by: SARINA GRANT on 04/05/17 1409 Escitalopram Oxalate (Escitalopram Oxalate) 5 Mg Tablet, 5 MG PO HS, (Reported) Entered as Reported by: ARNOLD BENTLEY on 07/17/18 0736 Fenofibrate Nanocrystallized (Fenofibrate) 145 Mg Tablet, 145 MG PO HS, (Reported) Entered as Reported by: SARINA GRANT on 04/05/171406 Furosemide (Furosemide) 20 Mg Tablet, 40 MG PO DAILY, (Reported) Entered as Reported by: SARINA GRANT on 04/05/17 140 Guanfacine HCl (Guanfacine HCl) 1 Mg Tablet, 1 MG PO DAILY, (Reported) Entered as Reported by: SARINA GRANT on 04/05/17 140 Hydrocodone/Acetaminophen (Hydrocodone-Acetamin 5-325 mg) 1 Each Tablet, 1 TAB PO Q4H PRN for PAIN-MODERATE (5-7) Prescribed by: BAUTISTA HOBSON on 09/08/21 1300 Insulin Glargine,Hum.rec.anlog (Toujeo Max Solostar) 300 Unit/1 Ml Insuln.pen, 26 UNIT SQ HS, (Reported) Entered as Reported by: ARNOLD BENTLEY on 10/02/18 0741 Insulin Lispro (Humalog Kwikpen) 100 Unit/1 Ml Insuln.pen, 5 UNIT SQ TIDAC, (Reported) Entered as Reported by: SHANTA SHANKS on 04/23/19 1259 Levothyroxine Sodium (Levothyroxine Sodium) 50 Mcg Tablet, 50 MCG PO DAILY, (Reported) Entered as Reported by: SARINA GRANT on 04/05/17 140 Losartan Potassium (Losartan Potassium) 50 Mg Tablet, 100 MG PO HS, (Reported) Entered as Reported by: SHANTA SHANKS on 06/18/19 1241 Metoprolol Succinate (Toprol Xl) 25 Mg Tab.er.24h, 25 MG PO DAILY Prescribed by: MILADIS FISHER on 06/19/19 0722 Multivitamin (Multivitamins) 1 Each Tablet, 1 EACH PO DAILY, (Reported) Entered as Reported by: SHANTA SHANKS on 06/18/19 1252 Potassium Chloride (Klor-Con M20) 20 Meq Tab.er.prt, 20 MEQ PO BID, (Reported) Entered as Reported by: SARINA GRANT on 04/05/17 140 Simvastatin (Simvastatin) 20 Mg Tablet, 20 MG PO HS, (Reported) Entered as Reported by: ARNOLD BENTLEY on 07/17/18 0736 Warfarin Sodium (Warfarin Sodium) 2 Mg Tablet, 2 MG PO MONSALVE,MO,WE,TH,SAT, (Reported) Entered as Reported by: ARNOLD BENTLEY on 07/17/18 0736 Warfarin Sodium (Warfarin Sodium) 2 Mg Tablet, 1 MG PO SUN,SUN, (Reported) Entered as Reported by: ARNOLD BENTLEY on 10/02/18 0741 [Gentle Move] , 1 CAP PO TIDWM, (Reported) Entered as Reported by: SHANTA SHANKS on 06/18/19 1355 Review of Systems Review of Systems Constitutional: see HPI Eyes: No Symptoms Reported Ears, Nose, Mouth, Throat: no symptoms reported Respiratory: no symptoms reported Cardiovascular: no symptoms reported Genitourinary: no symptoms reported Musculoskeletal: no symptoms reported Skin: no symptoms reported Psychiatric/Neurological: No Symptoms Reported Past Qwyuiif-Jwlcdd-Cnytbe Hx Immunizations Up To Date PED Vaccines UTD: No Seasonal Allergies Seasonal Allergies: Yes Past Medical History Surgery/Hospitalization HX: r total knee, veins for cabg from r leg. cabg. pmh: DM-2, HTN, high chol, thyroid. 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 Sexually Transmitted Disease: No HIV/AIDS: No Genitourinary: Yes (SEES DR KOWALSKI FOR KIDNEY FUNCTION) Gastrointestinal: No Musculoskeletal: Yes Arthritis Endocrine: Yes Diabetes, Non-Insulin dep HEENT: Yes Cataract Loss of Vision: Denies Hearing Impairment: Denies Cancer: No Did You Recieve Any Treatments: No Psychosocial: Yes Anxiety, Depression Integumentary: No Family Medical History Completed stroke G8 SISTER Diabetes mellitus 19 MOTHER G8 SISTER Hypertension 19 MOTHER Myocardial infarction 19 FATHER G8 SISTER Heart Disease, Diabetes, Hypertension, Stroke Physical Exam Vital Signs Vital Signs - First Documented 09/08/21 11:29 Temp 36.3 Pulse 91 Resp 16 B/P (MAP) 135/73 (93) Pulse Ox 98 O2 Delivery Room Air Capillary Refill : Height, Weight, BMI Height: 5'5.00" Weight: 206lbs. 0.0oz. 93.179730zs; 39.00 BMI Method:Stated General Appearance: WD/WN, no apparent distress, other (A&O x3, GCS 15. ) HEENT: PERRL/EOMI, normal ENT inspection; No other (midline posterior scalp lac without active bleeding) Neck: non-tender, full range of motion Cardiovascular: regular rate, rhythm, no murmur Respiratory: no respiratory distress, no accessory muscle use Gastrointestinal: normal bowel sounds, non tender, soft Extremities: normal range of motion, non-tender Neurologic/Psychiatric: alert, normal mood/affect, oriented x 3 Skin: normal color, warm/dry [place] Coma Score Best Eye Response: (4) Open Spontaneously Best Verbal Response: (5) Oriented Best Motor Response: (6) Obeys Commands [place] Total: 15 Procedures/Interventions Wound Location: Scalp Wound Length (cm): 1 Wound's Depth, Shape: irregular, stellate, sub Q Wound Explored: clean Irrigated w/ Saline (ccs): 200 Anesthesia: Lidocaine w/ Epi Suture: Prolene Suture Size: 5-0 Number of Sutures: 1 Layer Closure?: 1 Number Deep Layer Sutures: 0 Progress Stellate actively bleeding posterior midline scalp laceration was identified anesthetized with lidocaine without epinephrine. This was closed with 1 figure- of-eight 5-0 Prolene suture. That resulted in hemostasis. Progress/Results/Core Measures Results/Orders My Orders Orders - BAUTISTA HOBSON APRN Ct Head/Cervical Spine Wo (09/08/21 11:29) Dipht,Pertuss(Acell),Tet Adult (Boostrix (09/08/21 11:30) Lidocaine/Epi 1% 1:100,000 (Xylocaine 1% (09/08/21 11:30) Ct Lumbar Spine Wo (09/08/21 11:49) Lidocaine/Epi 2% 1:100,000 (Xylocaine/Ep (09/08/21 12:02) Hydrocodone/Apap 5/325 Tablet (Lortab 5 (09/08/21 13:15) Medications Given in ED Current Medications Medications Dose Ordered Sig/Carlos Route Start Time Stop Time Status Last Admin Dose Admin Lidocaine/ Epinephrine 20 ml STK-MED ONCE .ROUTE 09/08/21 12:02 09/08/21 12:06 DC 09/08/21 12:45 20 ML Vital Signs/I&O 09/08/21 11:29 Temp 36.3 Pulse 91 Resp 16 B/P (MAP) 135/73 (93) Pulse Ox 98 O2 Delivery Room Air Departure Communication (Admissions) she states that as a child she was told she was allergic to tetanus vaccine. She subsequently had a vaccine for tetanus but is not sure which type it was that she was allergic to. As such we will avoid giving that. She thinks she is probably up-to-date within the last 5 years but she is not sure which vaccine type she got. Family Conversation NAME: LUCY HUFF I [facility] REC#: [id number] PT STATUS: REG ER : 1945 PHYSICIAN: BAUTISTA HOBSON APRN ADMIT DATE: 09/08/21/ER Draft Date of Exam:09/08/21 CT HEAD/CERVICAL SPINE WO Clinical indications: Patient status post fall hitting back of head. Patient has pain in the back of the head. No neck complaints. Exam: Head CT without IV contrast with sagittal and coronal reformations. Axial CT scan of the cervical spine with sagittal and coronal reformations. Auto Exposure Controls were utilized during the CT exam to meet ALARA standards for radiation dose reduction. Comparison: Head CT without contrast dated 04/05/2017. Findings: Head CT: There is no evidence of acute cerebral infarct, intracranial hemorrhage, or gross mass effect. The brain parenchymal volume appears appropriate for patient's age. There is mild chronic small vessel ischemic disease. There is normal dang-white matter distinction. There is no significant midline shift or herniation. There is no evidence of hydrocephalus. The basal cisterns are unremarkable. There is a small to moderate size area of extracranial soft tissue swelling involving the high left lateral posterior aspect of the head and hematoma likely related to recent trauma. There is no skull fracture. Otherwise, the skull, extracranial soft tissue, and orbits are unremarkable. The paranasal sinuses are unremarkable. Temporal bones show no significant abnormality. Cervical spine: There is no acute cervical spine fracture. There is grade 1 retrolisthesis C4 on C5 and no pars defect and is likely degenerative. There is severe loss of disk space height at the C4-C5 and C5-C6 levels with the appearance of diffuse disk bulges and vertebral body spurs. There are bilateral uncinate spurs at C5-C6-C6 and C6-C7 levels. There is severe left C4-C5 neural foramen narrowing, moderate to severe bilateral C5-C6 neural foramen narrowing. 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 The neck soft tissue structures show no significant abnormality. Visualized upper lung capone are clear. Impression: 1: There is no evidence of acute intracranial process or intracranial hemorrhage. 2: There is intracranial soft tissue swelling/hematoma involving the high left posterior aspect of the head. There is no skull fracture. 3: There is cervical spine degenerative disease with no acute fracture. 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 Dictated on workstation # [id number] Dict: 09/08/21 1206 Trans: 09/08/21 1229 CV [id number] Interpreted by: VASYL CABRERA MD Electronically signed by: NAME: LUCY HUFF REC#: [id number] PT STATUS: REG ER : 1945 PHYSICIAN: BAUTISTA HOBSON APRN ADMIT DATE: 09/08/21/ER Draft Date of Exam:09/08/21 CT LUMBAR SPINE WO PROCEDURE: CT lumbar spine without contrast. TECHNIQUE: Multiple contiguous axial images were obtained through the lumbar spine without the use of intravenous contrast. Sagittal and coronal reformations were then performed. Auto Exposure Controls were utilized during the CT exam to meet ALARA standards for radiation dose reduction. INDICATION: Fall. Lower back pain. COMPARISON: None FINDINGS: Evaluation of static alignment demonstrates mild grade 1 anterolisthesis at L4-L5. There is no evidence of jumped facets. Acute fractures identified involving the anterior superior corner of the L1 vertebral body. This extends posteriorly and eventually exits the superior endplate. There is no apparent involvement of the posterior vertebral body wall nor the posterior elements. There is minimal, less than 10% vertebral body height loss. Note is also made of bilateral L5 pars defects. There are also mild multilevel degenerative changes consistent with intervertebral disc height loss as well as anterior and posterior disc bulging and multilevel facet arthropathy. These changes are greatest at the L3-L4 and L4-L5 levels. Pre and paravertebral soft tissue structures demonstrate moderate diffuse calcified aortic arch atherosclerosis. Partially visualized left-sided small pleural effusion is also noted. IMPRESSION: 1. Acute fracture of L1. Patient may be a candidate for kyphoplasty. 2. Multilevel degenerative changes, greatest at L3-L4 and L4-L5 as described above. 3. Small left effusion. Dictated on workstation # [id number] Dict: 09/08/21 1209 Trans: 09/08/21 1217 [facility] [id number] Interpreted by: KYLER BLOOD MD Electronically signed by: Impression Primary Impression: Compression fracture of L1 vertebra Additional Impressions: Scalp hematoma Scalp laceration Disposition: 01 HOME, SELF-CARE Condition: Stable Departure-Patient Inst. Decision time for Depature: 12:35 Referrals: SANDY GARCIA MD (PCP/Family) Primary Care Physician Patient Instructions: Vertebral Compression Fracture ED, Laceration Repair With Pool ED Add. Discharge Instructions: 1. You can shower letting water run over this starting this evening. Return to ER for any concerns. Take the pain medication as directed for the low back pain with the vertebral fracture. Follow-up with Dr. Garcia next week. Pool out in about 5 to 7 days which can be done here in the emergency room. All discharge instructions reviewed with patient and/or family. Voiced understanding. Scripts Hydrocodone/Acetaminophen (Hydrocodone-Acetamin 5-325 mg) 1 Each Tablet 1 TAB PO Q4H PRN for PAIN-MODERATE (5-7), #14 TAB Prov: BAUTISTA HOBSON APRN 09/08/21 Copy Copies To 1: SANDY GARCIA MD, PETER J APRN Sep 08, 2021 11:32
[2021-09-08] MEDS ORDERED: LIDOCAINE/EPI 2% 1:100,00 (XYLOCAINE) 20 ML VIAL ONE (12:02)
--- NOTE | 2021-09-08 12:17 | Diagnostic Imaging Report ---
PROCEDURE: CT lumbar spine without contrast. TECHNIQUE: Multiple contiguous axial images were obtained through the lumbar spine without the use of intravenous contrast. Sagittal and coronal reformations were then performed. Auto Exposure Controls were utilized during the CT exam to meet ALARA standards for radiation dose reduction. INDICATION: Fall. Lower back pain. COMPARISON: None FINDINGS: Evaluation of static alignment demonstrates mild grade 1 anterolisthesis at L4-L5. There is no evidence of jumped facets. Acute fractures identified involving the anterior superior corner of the L1 vertebral body. This extends posteriorly and eventually exits the superior endplate. There is no apparent involvement of the posterior vertebral body wall nor the posterior elements. There is minimal, less than 10% vertebral body height loss. Note is also made of bilateral L5 pars defects. There are also mild multilevel degenerative changes consistent with intervertebral disc height loss as well as anterior and posterior disc bulging and multilevel facet arthropathy. These changes are greatest at the L3-L4 and L4-L5 levels. Pre and paravertebral soft tissue structures demonstrate moderate diffuse calcified aortic arch atherosclerosis. Partially visualized left-sided small pleural effusion is also noted. IMPRESSION: 1. Acute fracture of L1. Patient may be a candidate for kyphoplasty. 2. Multilevel degenerative changes, greatest at L3-L4 and L4-L5 as described above. 3. Small left effusion. Dictated by: Dictated on workstation # [id number]
--- NOTE | 2021-09-08 12:30 | Diagnostic Imaging Report ---
Clinical indications: Patient status post fall hitting back of head. Patient has pain in the back of the head. No neck complaints. Exam: Head CT without IV contrast with sagittal and coronal reformations. Axial CT scan of the cervical spine with sagittal and coronal reformations. Auto Exposure Controls were utilized during the CT exam to meet ALARA standards for radiation dose reduction. Comparison: Head CT without contrast dated 04/05/2017. Findings: Head CT: There is no evidence of acute cerebral infarct, intracranial hemorrhage, or gross mass effect. The brain parenchymal volume appears appropriate for patient's age. There is mild chronic small vessel ischemic disease. There is normal dang-white matter distinction. There is no significant midline shift or herniation. There is no evidence of hydrocephalus. The basal cisterns are unremarkable. There is a small to moderate size area of extracranial soft tissue swelling involving the high left lateral posterior aspect of the head and hematoma likely related to recent trauma. There is no skull fracture. Otherwise, the skull, extracranial soft tissue, and orbits are unremarkable. The paranasal sinuses are unremarkable. Temporal bones show no significant abnormality. Cervical spine: There is no acute cervical spine fracture. There is grade 1 retrolisthesis C4 on C5 and no pars defect and is likely degenerative. There is severe loss of disk space height at the C4-C5 and C5-C6 levels with the appearance of diffuse disk bulges and vertebral body spurs. There are bilateral uncinate spurs at C5-C6-C6 and C6-C7 levels. There is severe left C4-C5 neural foramen narrowing, moderate to severe bilateral C5-C6 neural foramen narrowing. 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 The neck soft tissue structures show no significant abnormality. Visualized upper lung capone are clear. Impression: 1: There is no evidence of acute intracranial process or intracranial hemorrhage. 2: There is intracranial soft tissue swelling/hematoma involving the high left posterior aspect of the head. There is no skull fracture. 3: There is cervical spine degenerative disease with no acute fracture. 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 Dictated by: Dictated on workstation # [id number]
[2021-09-08] MEDS ORDERED: ACHD5005 PO (13:00)
[2021-09-08 13:08] VITALS: BP 122/79
[2021-09-08] MEDS ORDERED: HYDROcodone/APAP 5 MG/325 MG (LORTAB) TAB PO ONE ×2 (13:15→13:30)
== END 2021-09-08 13:08 | disposition home or self-care (01) ==
LOC: EDUNIT# 11:25 → ER 11:28
DX: S32.010A Wedge compression fracture of first lumbar vertebra, initial encounter for closed fracture (principal); S01.01XA Laceration without foreign body of scalp, initial encounter; I10 Essential (primary) hypertension; I25.10 Atherosclerotic heart disease of native coronary artery without angina pectoris; E11.9 Type 2 diabetes mellitus without complications; E78.00 Pure hypercholesterolemia, unspecified; F41.9 Anxiety disorder, unspecified; F32.9 Major depressive disorder, single episode, unspecified; Z23 Encounter for immunization; Z95.1 Presence of aortocoronary bypass graft; Z95.5 Presence of coronary angioplasty implant and graft; Z88.2 Allergy status to sulfonamides; Z88.8 Allergy status to other drugs, medicaments and biological substances; Z79.4 Long term (current) use of insulin; Z79.01 Long term (current) use of anticoagulants; Z79.82 Long term (current) use of aspirin; Z79.890 Hormone replacement therapy; Z79.899 Other long term (current) drug therapy; W18.30XA Fall on same level, unspecified, initial encounter
CPT/HCPCS: 12011; 70450; 72125; 72131

== ENCOUNTER 2021-10-21 19:11 | Inpatient (IN) | payer MEDICARE, OTHER ==
[~2021-10-21] VITALS: Ht 167.7 cm; Wt 117.0 kg
[2021-10-21] MEDS ORDERED: IBUPROFEN 800 MG (MOTRIN) TAB PO ONE (19:30)
[2021-10-21] MEDS ORDERED: ACETAMINOPHEN 500 MG TAB (TYLENOL) PO PRN (19:30)
[2021-10-21] MEDS ORDERED: ONDANSETRON 4 MG/2 ML (SDV) Z0FRAN IV PRN ×2 (19:30→23:00)
[2021-10-21] MEDS ORDERED: NS IV 1000 ML 1,000 ML IV SCH (19:30)
[2021-10-21 19:50] LABS: BASOPHILS % (AUTO) 0 % (0-10); EOSINOPHILS % (AUTO) 0 % (0-10); HEMATOCRIT 33 % (35-52); LYMPHOCYTES # (AUTO) 0.3 10^3/uL (1.0-4.0); LYMPHOCYTES % (AUTO) 2 % (12-44); MEAN CORPUSCULAR HEMOGLOBIN 30 pg (25-34); MEAN CORPUSCULAR HGB CONC 33 g/dL (32-36); MEAN CORPUSCULAR VOLUME 90 fL (80-99); MEAN PLATELET VOLUME 10.5 fL (9.0-12.2); MONOCYTES # (AUTO) 0.6 10^3/uL (0.0-1.0); MONOCYTES % (AUTO) 5 % (0-12); NEUTROPHILS # (AUTO) 10.4 10^3/uL (1.8-7.8); NEUTROPHILS % (AUTO) 92 % (42-75); PLATELET COUNT 192 10^3/uL (130-400); WHITE BLOOD COUNT 11.4 10^3/uL (4.3-11.0)
[2021-10-21 19:57] LABS: CLARITY,URINE CLOUDY; COLOR,URINE YELLOW; GLUCOSE, URINE (UA) NEGATIVE (NEGATIVE); KETONES,URINE NEGATIVE (NEGATIVE); LEUKOCYTE ESTERASE ,URINE 3+ (NEGATIVE); NITRITE,URINE NEGATIVE (NEGATIVE); PROTEIN,URINE 2+ (NEGATIVE)
[2021-10-21 19:58] LABS: ALBUMIN 3.4 GM/DL (3.2-4.5); CHLORIDE 89 MMOL/L (98-107); POTASSIUM 3.2 MMOL/L (3.6-5.0); SODIUM 129 MMOL/L (135-145)
[2021-10-21 19:59] LABS: CALCIUM 9.6 MG/DL (8.5-10.1)
[2021-10-21 20:00] LABS: AMYLASE 13 U/L (25-125); GLUCOSE 174 MG/DL (70-105)
[2021-10-21 20:01] LABS: CARBON DIOXIDE 27 MMOL/L (21-32); TOTAL PROTEIN 6.7 GM/DL (6.4-8.2)
[2021-10-21 20:02] LABS: BILIRUBIN,TOTAL 3.7 MG/DL (0.1-1.0); FIBRIN DEGRADATION PRODUCTS 1.16 UG/ML (0.00-0.49); INR 1.2 (0.8-1.4); PROTHROMBIN TIME PATIENT 16.1 SEC (12.2-14.7)
--- NOTE | 2021-10-21 20:03 | ED General ---
General Chief Complaint: Fever-Adult/Adol Stated Complaint: AMS Source of Information: EMS Exam Limitations: No Limitations (BAUTISTA HOBSON APRN) History of Present Illness Date Seen by Provider: Oct 21, 2021 Time Seen by Provider: 19:59 Initial Comments To ER by EMS from [facility]. She was recently released from [facility] and daughter took her back there today with altered mental status. She was found to have a fever of 101 as well as redness and swelling of right lower extremity with a draining wound. PMH includes insulin-dependent diabetes, CHF, atrial fibrillation, hypertension,HLD, hypothyroidism, CAD s/p CABG, obesity. Timing/Duration: 1-2 Days Associated Systoms: Fever/Chills (BAUTISTA HOBSON APRN) Allergies and Home Medications Allergies Coded Allergies: Sulfa (Sulfonamide Antibiotics) (Verified Allergy, Intermediate, 06/18/19) since childhood tetanus and diphtheria toxoids (Verified Allergy, Unknown, RASH, 09/08/21) Uncoded Allergies: TAPE (Adverse Reaction, Unknown, 04/05/17) Patient Home Medication List Home Medication List Reviewed: Yes (BAUTISTA HOBSON APRN) Aspirin (Aspirin EC) 81 Mg Tablet.dr, 81 MG PO DAILY, (Reported) Entered as Reported by: ARNOLD BENTLEY on 10/02/18 0741 Last Action: Last Taken Edited Cefixime (Suprax) 200 Mg Tab.chew, 200 MG PO BID Prescribed by: SANDY GARCIA on 10/25/21 0905 Cyanocobalamin (Cyanocobalamin Injection) 1,000 Mcg/Ml Inj, 1,000 MCG IJ MONTHLY, (Reported) Entered as Reported by: SARINA GRANT on 04/05/17 1409 Last Action: Last Taken Edited Escitalopram Oxalate (Escitalopram Oxalate) 5 Mg Tablet, 5 MG PO HS, (Reported) Entered as Reported by: ARNOLD BENTLEY on 07/17/18 0736 Last Action: Last Taken Edited Fenofibrate Nanocrystallized (Fenofibrate) 145 Mg Tablet, 145 MG PO HS, (Reported) Entered as Reported by: SARINA GRANT on 04/05/17 1407 Last Action: Last Taken Edited Furosemide (Lasix) 40 Mg Tablet, 40 MG PO BID Prescribed by: SANDY GARCIA on 3/29/22 0905 Guanfacine HCl (Guanfacine HCl) 1 Mg Tablet, 1 MG PO DAILY, (Reported) Entered as Reported by: SARINA GRANT on 04/05/171406 Last Action: Last Taken Edited Hydrocodone Bit/Acetaminophen (HYDROcodone/APAP 10/325 TABLET) 1 Ea Tab, 1 EA PO Q6HR PRN for PAIN-MODERATE (5-7) Prescribed by: SANDY GARCIA on 10/25/21904 Hydrocodone/Acetaminophen (Hydrocodone-Acetamin 10-325 mg) 1 Each Tablet, 10-325 MG PO for PAIN-MODERATE (5-7), (Reported) Entered as Reported by: AGUILA MARTINEZ on 10/22/21 181 Last Action: New Order Insulin Glargine,Hum.rec.anlog (Toujeo Max Solostar) 300 Unit/1 Ml Insuln.pen, 26 UNIT SQ HS, (Reported) Entered as Reported by: ARNOLD BENTLEY on 10/02/18 0741 Last Action: Last Taken Edited Insulin Lispro (Humalog Kwikpen) 100 Unit/1 Ml Insuln.pen, 5 UNIT SQ TIDAC, (Reported) Entered as Reported by: SHANTA SHANKS on 04/23/19 1259 Last Action: Last Taken Edited Lactobac Cmb #3/Fos/Pantethine (Probiotic & Acidophilus Cap) 1 Each Capsule, 1 EACH PO TID Prescribed by: SANDY GARCIA on 10/25/21904 Levothyroxine Sodium (Levothyroxine Sodium) 50 Mcg Tablet, 50 MCG PO DAILY, (Reported) Entered as Reported by: SARINA GRANT on 04/05/171406 Last Action: Last Taken Edited Loratadine (Loratadine) 10 Mg Tablet, 10 MG PO DAILY Prescribed by: SANDY GARCIA on 10/25/21904 Metoprolol Succinate (Toprol Xl) 25 Mg Tab.er.24h, 25 MG PO DAILY Prescribed by: SANDY GARCIA on 10/25/21904 Multivitamin (Multivitamins) 1 Each Tablet, 1 EACH PO DAILY, (Reported) Entered as Reported by: SHANTA SHANKS on 06/18/19 1252 Last Action: Last Taken Edited Potassium Chloride (Klor-Con M20) 20 Meq Tab.er.prt, 40 MEQ PO BID Prescribed by: SANDY GARCIA on 10/25/21 09 Rivaroxaban (Xarelto Tablet) 15 Mg Tablet, 15 MG PO DAILY@1700 Prescribed by: SANDY GARCIA on 10/25/21 09 Sennosides/Docusate Sodium (Stool Softener-Laxative Tablet) 1 Each Tablet, 1 EA PO BID Prescribed by: SANDY GARCIA on 10/25/21 09 Simvastatin (Simvastatin) 20 Mg Tablet, 20 MG PO HS, (Reported) Entered as Reported by: ARNOLD BENTLEY on 07/17/18 0736 Last Action: Last Taken Edited [Gentle Move] , 1 CAP PO TIDWM, (Reported) Entered as Reported by: SHANTA SHANKS on 06/18/19 1355 Last Action: Last Taken Edited Discontinued Medications Furosemide (Furosemide) 20 Mg Tablet, 40 MG PO DAILY, (Reported) Entered as Reported by: SARINA GRANT on 04/05/17 1407 Last Action: Last Taken Edited Losartan Potassium (Losartan Potassium) 50 Mg Tablet, 50 MG PO DAILY, (Reported) Entered as Reported by: AGUILA MARTINEZ on 10/22/211810 Last Action: New Order Metolazone (Metolazone) 2.5 Mg Tablet, 2.5 MG 3 times a week mwf, (Reported) Entered as Reported by: AGUILA MARTINEZ on 10/22/211813 Last Action: New Order Review of Systems Review of Systems Constitutional: see HPI, other (Unable to obtain due to altered mental status) (BAUTISTA HOBSON APRN) Past Pgapgep-Crcveh-Ikeyqa Hx Immunizations Up To Date PED Vaccines UTD: No (BAUTISTA HOBSON APRN) Seasonal Allergies Seasonal Allergies: Yes (BAUTISTA HOBSON APRN) Past Medical History Surgery/Hospitalization HX: r total knee, veins for cabg from r leg. cabg. pmh: DM-2, HTN, high chol, thyroid. Surgeries: Yes CABG, Section, Coronary Stent, Gallbladder, Hysterectomy, Orthopedic, Tubal Ligation Respiratory: No Currently Using CPAP: No Currently Using BIPAP: No Cardiac: Yes Coronary Artery Disease, High Cholesterol, Hypertension Neurological: No Reproductive Disorders: No Female Reproductive Disorders: Denies FLAMER AFTER LASTING History: Menopausal Sexually Transmitted Disease: No HIV/AIDS: No Genitourinary: Yes (SEES DR KOWALSKI FOR KIDNEY FUNCTION) Gastrointestinal: No Musculoskeletal: Yes Arthritis Endocrine: Yes Diabetes, Non-Insulin dep HEENT: Yes Cataract Loss of Vision: Denies Hearing Impairment: Denies Cancer: No Did You Recieve Any Treatments: No Psychosocial: Yes Anxiety, Depression Integumentary: No (BAUTISTA HOBSON APRN) Family Medical History Completed stroke G8 SISTER Diabetes mellitus 19 MOTHER G8 SISTER Hypertension 19 MOTHER Myocardial infarction 19 FATHER G8 SISTER Heart Disease, Diabetes, Hypertension, Stroke (BAUTISTA HOBSON APRN) Physical Exam Vital Signs Vital Signs - First Documented (MELINDA LAWSON DO) Vital Signs Capillary Refill : (BAUTISTA HOBSON APRN) Height, Weight, BMI Height: 5'5.00" Weight: 206lbs. 0.0oz. 93.010039ky; 41.00 BMI Method:Stated General Appearance: No Apparent Distress, WD/WN, Chronically ill, Obese Eyes: Bilateral Eye Normal Inspection, Bilateral Eye PERRL Neck: Full Range of Motion, Normal Inspection Respiratory: Normal Breath Sounds, No Accessory Muscle Use, No Respiratory Dist ress Cardiovascular: Normal Peripheral Pulses, Irregularly Irregular, Tachycardia (Atrial fibrillation rate of 105) Gastrointestinal: Normal Bowel Sounds, Non Tender, Soft Extremity: Normal Capillary Refill, Other (Significant pedal edema bilateral lower extremities with erythema bilateral lower extremities right greater than left. To the anterolateral aspect of the right lower leg is an open shallow wound draining serous material.) Neurologic/Psychiatric: Other (Lethargic. Arousable to verbal stimuli. Answers questions but in a delayed response.) Skin: Normal Color, Warm/Dry Comments Parham catheter was placed showing purulent appearing urine within the catheter tubing (BAUTISTA HOBSON APRN) Focused Exam Lactate Level 10/21/21 19:25: Lactic Acid Level 2.52*H (MELINDA LAWSON DO) Lactic Acid Level Laboratory Tests Test 10/21/21 19:25 Lactic Acid Level 2.52 MMOL/L (0.50-2.00) *H (MELINDA LAWSON DO) Procedures/Interventions Suture Size: 5-0 (BAUTISTA HOBSON APRN) Progress/Results/Core Measures Suspected Sepsis SIRS Temperature: Pulse: Respiratory Rate: Laboratory Tests 10/21/21 19:25: White Blood Count 11.4H Blood Pressure / Mean: 10/21/21 19:25: Lactic Acid Level 2.52*H Laboratory Tests 10/21/21 19:25: Creatinine 1.60H, INR Comment 1.2, Platelet Count 192, Total Bilirubin 3.7H (BAUTISTA HOBSON APRN) Results/Orders Lab Results Laboratory Tests Test 10/21/21 19:25 10/21/21 19:30 10/21/21 19:51 10/21/21 20:15 Range/Units White Blood Count 11.4 H 4.3-11.0 10^3/uL Red Blood Count 3.68 L 3.80-5.11 10^6/uL Hemoglobin 11.0 L 11.5-16.0 g/dL Hematocrit 33 L 35-52 % Mean Corpuscular Volume 90 80-99 fL Mean Corpuscular Hemoglobin 30 25-34 pg Mean Corpuscular Hemoglobin Concent 33 32-36 g/dL Red Cell Distribution Width 16.1 H 10.0-14.5 % Platelet Count 192 130-400 10^3/uL Mean Platelet Volume 10.5 9.0-12.2 fL Immature Granulocyte % (Auto) 1 % Neutrophils (%) (Auto) 92 H 42-75 % Lymphocytes (%) (Auto) 2 L 12-44 % Monocytes (%) (Auto) 5 0-12 % Eosinophils (%) (Auto) 0 0-10 % Basophils (%) (Auto) 0 0-10 % Neutrophils # (Auto) 10.4 H 1.8-7.8 10^3/uL Lymphocytes # (Auto) 0.3 L 1.0-4.0 10^3/uL Monocytes # (Auto) 0.6 0.0-1.0 10^3/uL Eosinophils # (Auto) 0.0 0.0-0.3 10^3/uL Basophils # (Auto) 0.0 0.0-0.1 10^3/uL Immature Granulocyte # (Auto) 0.1 0.0-0.1 10^3/uL Neutrophils % (Manual) 95 % Lymphocytes % (Manual) 2 % Monocytes % (Manual) 3 % Blood Morphology Comment NORMAL Erythrocyte Sedimentation Rate 43 H 0-30 MM/HR Prothrombin Time 16.1 H 12.2-14.7 SEC INR Comment 1.2 0.8-1.4 Activated Partial Thromboplast Time 42 H 24-35 SEC D-Dimer 1.16 H 0.00-0.49 UG/ML Sodium Level 129 L 135-145 MMOL/L Potassium Level 3.2 L 3.6-5.0 MMOL/L Chloride Level 89 L 98-107 MMOL/L Carbon Dioxide Level 27 21-32 MMOL/L Anion Gap 13 5-14 MMOL/L Blood Urea Nitrogen 33 H 7-18 MG/DL Creatinine 1.60 H 0.60-1.30 MG/DL Estimat Glomerular Filtration Rate 33 BUN/Creatinine Ratio 21 Glucose Level 174 H 70-105 MG/DL Lactic Acid Level 2.52 *H 0.50-2.00 MMOL/L Calcium Level 9.6 8.5-10.1 MG/DL Corrected Calcium 10.1 8.5-10.1 MG/DL Magnesium Level 1.7 1.6-2.4 MG/DL Total Bilirubin 3.7 H 0.1-1.0 MG/DL Aspartate Amino Transf (AST/SGOT) 208 H 5-34 U/L Alanine Aminotransferase (ALT/SGPT) 86 H 0-55 U/L Alkaline Phosphatase 83 40-136 U/L Lactate Dehydrogenase 330 H 125-220 U/L Total Creatine Kinase 1534 H 29-168 U/L Creatine Kinase MB 5.3 <6.6 NG/ML Myoglobin 2080.6 H 10.0-92.0 NG/ML Troponin I 0.059 H <0.028 NG/ML C-Reactive Protein High Sensitivity 18.19 H 0.00-0.50 MG/DL B-Type Natriuretic Peptide 1027.9 H <100.0 PG/ML Total Protein 6.7 6.4-8.2 GM/DL Albumin 3.4 3.2-4.5 GM/DL Amylase Level 13 L 25-125 U/L Lipase < 4 L 8-78 U/L Beta-Hydroxybutyrate (Chem panel) 0.11 0.00-0.27 MMOL/L Procalcitonin 6.40 H <0.10 NG/ML Free Thyroxine 1.20 0.70-1.48 NG/DL TSH Hall Testing 5.82 H 0.35-4.94 UIU/ML Acetaminophen Level < 10 L 10-30 UG/ML Serum Alcohol < 10 <10 MG/DL Influenza Type A (RT-PCR) Not Detected Not Detecte Influenza Type B (RT-PCR) Not Detected Not Detecte SARS-CoV-2 RNA (RT-PCR) Not Detected Not Detecte Glucometer 169 H 70-110 MG/DL Urine Color YELLOW Urine Clarity CLOUDY Urine pH 6.0 5-9 Urine Specific [place] 1.020 1.016-1.022 Urine Protein 2+ H NEGATIVE Urine Glucose (UA) NEGATIVE NEGATIVE Urine Ketones NEGATIVE NEGATIVE Urine Nitrite NEGATIVE NEGATIVE Urine Bilirubin 1+ H NEGATIVE Urine Urobilinogen 4.0 < = 1.0 MG/DL Urine Leukocyte Esterase 3+ H NEGATIVE Urine RBC (Auto) 3+ H NEGATIVE Urine RBC 0-2 /HPF Urine WBC 50-100 H /HPF Urine Crystals NONE /LPF Urine Bacteria LARGE H /HPF Urine Casts NONE /LPF Urine Mucus NEGATIVE /LPF Urine Culture Indicated CULTURE PENDING Urine Opiates Screen POSITIVE H NEGATIVE Urine Oxycodone Screen NEGATIVE NEGATIVE Urine Methadone Screen NEGATIVE NEGATIVE Urine Propoxyphene Screen NEGATIVE NEGATIVE Urine Barbiturates Screen NEGATIVE NEGATIVE Ur Tricyclic Antidepressants Screen NEGATIVE NEGATIVE Urine Phencyclidine Screen NEGATIVE NEGATIVE Urine Amphetamines Screen NEGATIVE NEGATIVE Urine Methamphetamines Screen NEGATIVE NEGATIVE Urine Benzodiazepines Screen NEGATIVE NEGATIVE Urine Cocaine Screen NEGATIVE NEGATIVE Urine Cannabinoids Screen NEGATIVE NEGATIVE Ammonia 28 11-32 UMOL/L Test 10/21/21 20:22 Range/Units Blood Gas Puncture Site RGT RAD Blood Gas Patient Temperature 37.7 Arterial Blood pH 7.45 H 7.37-7.43 Arterial Blood Partial Pressure CO2 42 35-45 MMHG Arterial Blood Partial Pressure O2 76 L 79-93 MMHG Arterial Blood HCO3 28 H 23-27 MMOL/L Arterial Blood Total CO2 29.6 21.0-31.0 MMOL/L Arterial Blood Oxygen Saturation 96 94-100 % Arterial Blood Base Excess 4.6 H -2.5-2.5 MMOL/L [place]is Test POS Blood Gas Ventilator Setting NO Blood Gas Inspired Oxygen 3L (MELINDA LAWSON DO) Micro Results Microbiology 10/21/21 Blood Culture - Final, Complete Escherichia coli See Comments 10/21/21 Gram Stain - Final, Complete 10/21/21 Wound Culture - Final, Complete Corynebacterium striatum 10/21/21 Urine Culture - Final, Complete Escherichia coli 10/21/21 Blood Culture - Final, Complete Escherichia coli See Comments (MELINDA LAWSON DO) My Orders Orders - LULU,MELINDA K DO Accucheck Stat ONCE (10/21/21 19:24) Ed Iv/Invasive Line Start (10/21/21 19:24) Ekg Tracing (10/21/21:24) Catheter(Urinary) Insert & Ass 03,15 (10/21/21 19:24) O2 (10/21/21 19:24) Monitor-Rhythm Ecg Trace Only (10/21/21 19:24) Ct Head/Cervical Spine Wo (10/21/21:24) Pelvis (10/21/21 19:24) Acetaminophen (10/21/21 19:24) Alcohol (10/21/21 19:24) Amylase (10/21/21:24) Arterial Blood Gas (10/21/21:24) Bnp [place] (10/21/21:24) Creatine Kinase (10/21/21 19:24) Creatine Kinase Mb (10/21/21:24) Hs C Reactive Protein (10/21/21:24) Erythrocyte Sedimentation Rate (10/21/21:24) Fibrin Degradation Products (10/21/21:24) Drug Screen Stat (Urine) (10/21/21 19:24) Lipase (10/21/21 19:24) Magnesium (10/21/21:24) Procalcitonin (Pct) (10/21/21:24) Thyroid Analyzer (10/21/21 19:24) Ua Culture If Indicated (10/21/21:24) Wound Culture (10/21/21 19:24) Troponin I [place] (10/21/21 19:24) Ed Iv/Invasive Line Start (10/21/21:24) Ns Iv 1000 Ml (Sodium Chloride 0.9%) (10/21/21 19:30) LDH (10/21/21 19:24) Covid 19 Inhouse Test (10/21/21 19:24) Acetaminophen Tablet (Tylenol Tablet) (10/21/21 19:30) Ed Iv/Invasive Line Start (10/21/21 19:24) Vital Signs Adult Sepsis Patie Q15M (10/21/21 19:24) Ondansetron Injection (Zofran Injectio (10/21/21 19:30) Remove Rings In Anticipation O (3/25/22 19:24) Influenza A And B By Pcr (10/21/21 19:24) Isolation Central Supply Req (10/21/21 19:24) Hemoglobin A1c (10/21/21 19:24) Beta Hydroxybutyrate (10/21/21 19:24) Ibuprofen Tablet (Motrin Tablet) (10/21/21 19:30) (MELINDA LAWSON DO) Vital Signs/I&O 10/21/21 10/21/21 19:14 19:14 Temp 37.7 Pulse 121 Resp 22 B/P (MAP) 144/66 (92) Pulse Ox 93 93 O2 Delivery Nasal Cannula Nasal Cannula O2 Flow Rate 3.00 3.00 (MELINDA LAWSON DO) Vital Signs/I&O Capillary Refill : (BAUTISTA HOBSON APRN) Point of Care Testing Finger Stick Blood Glucose: 169 (BAUTISTA HOBSON APRN) Departure Communication (Admissions) 2114-discussed with Dr. Ott who is on-call for Dr. Garcia. Will admit the patient on empiric Zosyn and vancomycin pending blood and wound cultures from the right leg as well as urine culture. residential [facility] indicates Lasix 20 mg p.o. twice daily as well as metolazone 2.5 mg p.o. daily. I will use Lasix 40 mg IV twice daily first dose here and continue metolazone as she does appear volume overloaded clinically and on chest x-ray. Will use Tylenol for any fevers, Zofran as needed, will continue the Xarelto 20 mg daily that she takes for her atrial fibrillation. I will supplement her with 40 mEq of potassium chloride daily. We will consult Dr. Barr from cardiology. (BAUTISTA HOBSON APRN) Impression Primary Impression: Sepsis Additional Impressions: Afib Cellulitis of right lower extremity UTI (urinary tract infection) Disposition: ADMITTED INPATIENT Condition: Stable Admissions Decision to Admit Reason: Admit from ER (General) Decision to Admit/Date: Oct 21, 2021 Time/Decision to Admit Time: 21:00 (BAUTISTA HOBSNO APRN) Departure-Patient Inst. Referrals: SANDY GARCIA MD (PCP/Family) Primary Care Physician Scripts Lactobac Cmb #3/Fos/Pantethine (Probiotic & Acidophilus Cap) 1 Each Capsule 1 EACH PO TID, #30 CAP Prov: SANDY GARCIA MD 10/25/21 Cefixime (Suprax) 200 Mg Tab.chew 200 MG PO BID, #14 TAB Prov: SANDY GARCIA MD 10/25/21 Loratadine (Loratadine) 10 Mg Tablet 10 MG PO DAILY, #30 TAB 4 Refills Prov: SANDY GARCIA MD 10/25/21 Hydrocodone Bit/Acetaminophen (HYDROcodone/APAP 10/325 TABLET) 1 Ea Tab 1 EA PO Q6HR PRN for PAIN-MODERATE (5-7), #120 TAB Prov: SANDY GARCIA MD 10/25/21 Furosemide (Lasix) 40 Mg Tablet 40 MG PO BID, #60 TAB 4 Refills Prov: SANDY GARCIA MD 10/25/21 Sennosides/Docusate Sodium (Stool Softener-Laxative Tablet) 1 Each Tablet 1 EA PO BID, #60 TAB 3 Refills Prov: SANDY GARCIA MD 10/25/21 Rivaroxaban (XARELTO TABLET) 15 Mg Tablet 15 MG PO DAILY@1700, #30 TAB 4 Refills Prov: SANDY GARCIA MD 10/25/21 Metoprolol Succinate (Toprol Xl) 25 Mg Tab.er.24h 25 MG PO DAILY, #30 TAB 3 Refills TO BE GIVEN IF SBP IS GREATER THAN OR EQUAL TO 160 Prov: SANDY GARCIA MD 10/25/21 Potassium Chloride (Klor-Con M20) 20 Meq Tab.er.prt 40 MEQ PO BID, #120 TAB 3 Refills PT TO TAKE 2 OF THE 20MEQ TWICE DAILY Prov: SANDY GARCIA MD 10/25/21 ATTENDING PHYSICIAN NOTE: I WAS PHYSICALLY PRESENT ER PHYSICIAN, BUT I WAS NOT INVOLVED IN ANY DECISION MAKING OR ANY CARE OF THIS PATIENT. (MELINDA LAWSON DO) BAUTISTA HOBSON APRN Oct 21, 2021 20:03 MELINDA LAWSON DO Oct 26, 2021 03:57
[2021-10-21 20:04] LABS: ALKALINE PHOSPHATASE 83 U/L (40-136); GFR ESTIMATED 33
[2021-10-21 20:05] LABS: BUN/CREATININE RATIO 21
[2021-10-21 20:07] LABS: ALANINE AMINOTRANSFERASE 86 U/L (0-55); MAGNESIUM 1.7 MG/DL (1.6-2.4)
[2021-10-21 20:08] LABS: CREATINE KINASE 1534 U/L (29-168); LIPASE < 4 U/L (8-78)
[2021-10-21 20:14] LABS: AMPHETAMINE SCREEN, URINE NEGATIVE (NEGATIVE); BARBITURATE SCREEN URINE NEGATIVE (NEGATIVE); BENZODIAZEPINES SCREEN URINE NEGATIVE (NEGATIVE); CANNABINOID SCREEN, URINE NEGATIVE (NEGATIVE); COCAINE SCREEN URINE NEGATIVE (NEGATIVE); METHADONE STAT NEGATIVE (NEGATIVE); METHAMPHETAMINE SCREEN URINE S NEGATIVE (NEGATIVE); OPIATE SCREEN URINE POSITIVE (NEGATIVE); OXYCODONE STAT NEGATIVE (NEGATIVE); PROPOXYPHENE STAT NEGATIVE (NEGATIVE); TRICYCLIC ANTIDEPRESSANTS SCRE NEGATIVE (NEGATIVE)
[2021-10-21 20:15] LABS: BACTERIA,URINE LARGE /HPF; BILIRUBIN,URINE 1+ (NEGATIVE); RBC,URINE 0-2 /HPF; WBC,URINE 50-100 /HPF
[2021-10-21 20:15] LABS: CREATINE KINASE MB 5.3 NG/ML (<6.6)
[2021-10-21 20:21] LABS: LYMPHOCYTES % (MANUAL) 2 %; MONOCYTES % (MANUAL) 3 %; NEUTROPHILS % (MANUAL) 95 %; RBC MORPH NORMAL
[2021-10-21 20:22] LABS: ERYTHROCYTE SEDIMENTATION RATE 43 MM/HR (0-30)
[2021-10-21 20:28] LABS: TSH (THYROID ANALYZER) 5.82 UIU/ML (0.35-4.94)
[2021-10-21 20:37] LABS: ACETAMINOPHEN < 10 UG/ML (10-30)
[2021-10-21 20:42] LABS: ABG BASE EXCESS 4.6 MMOL/L (-2.5-2.5); ABG OXYGEN SATURATION 96 % (94-100); ABG PCO2 42 MMHG (35-45); ABG PH 7.45 (7.37-7.43); ABG PO2 76 MMHG (79-93); ABG TCO2 29.6 MMOL/L (21.0-31.0); ALLENS TEST POS; INSPIRED O2 3L; PATIENT TEMP 37.7; VENTILATOR NO
--- NOTE | 2021-10-21 20:45 | Diagnostic Imaging Report ---
PROCEDURE: CT head and CT cervical spine without contrast. TECHNIQUE: Multiple contiguous axial images were obtained through the brain and cervical spine without the use of intravenous contrast. Sagittal and coronal reformations through the cervical spine were then performed. Auto Exposure Controls were utilized during the CT exam to meet ALARA standards for radiation dose reduction. INDICATION: Altered mental status. Fever. Head and neck pain. COMPARISON: 09/08/2020. FINDINGS: CT HEAD: No large acute territorial ischemia, mass or hemorrhage. No midline shift or mass effect. The ventricles, cortical sulci and basilar cisterns are patent and unremarkable. The calvarium is intact. The visualized paranasal sinuses are clear. CT CERVICAL SPINE: No acute fracture or dislocation is seen in the cervical spine. No focal osseous lesions. Vertebral body heights are well maintained. The craniocervical junction is well maintained. Moderate degenerative changes are seen in the cervical spine with disc osteophyte complexes and uncovertebral arthropathy. Soft tissues of the neck are unremarkable. The included lung apices are clear. IMPRESSION: 1. No hemorrhage or focal intra-axial mass. No CT evidence of large acute territorial ischemia. 2. No acute fracture or dislocation in the cervical spine. Dictated by: Dictated on workstation # [id number]
--- NOTE | 2021-10-21 21:08 | Diagnostic Imaging Report ---
EXAMINATION: Chest 1 view. HISTORY: Weakness. Fever. Altered mental status. COMPARISON: 06/18/2019. FINDINGS: There is cardiomegaly with central pulmonary vascular congestion. Stable left pectoral pacemaker. Sternotomy wires are noted. No large pleural effusion or pneumothorax. IMPRESSION: Cardiomegaly with central pulmonary vascular congestion. Dictated by: Dictated on workstation # [id number]
--- NOTE | 2021-10-21 21:09 | Diagnostic Imaging Report ---
CLINICAL HISTORY: Pelvic pain. Altered mental status. COMPARISON: 09/08/2021. TECHNIQUE: Single AP view of the pelvis was obtained. FINDINGS: There is no acute fracture or dislocation of the pelvis. Alignment is anatomic. The imaged joint spaces are preserved. IMPRESSION: No acute fracture or dislocation in the pelvis. Dictated by: Dictated on workstation # [id number]
[2021-10-21] MEDS ORDERED: FUROSEMIDE 40 MG/4 ML INJ (LASIX) IVP ONE (21:45)
[2021-10-21] MEDS ORDERED: PIPERACILLIN SODIUM/TAZOBACTAM 4.5 GM in NS (IVPB) 100 ML IV ONE ×2 (21:45→23:00)
[2021-10-21 22:30] VITALS: BP 97/50
[2021-10-21 23:00] VITALS: BP 95/40
[2021-10-21] MEDS ORDERED: ACETAMINOPHEN 325 MG TABLET PO PRN (23:00)
[2021-10-21] MEDS ORDERED: HYDROcodone/APAP 5 MG/325 MG (LORTAB) TAB PO PRN (23:15)
[2021-10-21] MEDS ORDERED: VANCOMYCIN INJECTION 2,000 MG in NS IV 500 ML 500 ML IV ONE (23:30)
[2021-10-22] VITALS (14 sets, daily range): BP systolic 92–136; BP diastolic 38–68
[2021-10-22] MEDS ORDERED: LACTATED RINGERS 500 ML IV ONE
[2021-10-22] MEDS ORDERED: LACTATED RINGERS 1,000 ML IV ONE (00:06)
[2021-10-22] MEDS ORDERED: LACTATED RINGERS 1,000 ML IV SCH (00:30)
[2021-10-22 05:04] LABS: BASOPHILS % (AUTO) 0 % (0-10); EOSINOPHILS % (AUTO) 0 % (0-10); HEMATOCRIT 27 % (35-52); HEMOGLOBIN 8.8 g/dL (11.5-16.0); LYMPHOCYTES # (AUTO) 0.5 10^3/uL (1.0-4.0); LYMPHOCYTES % (AUTO) 6 % (12-44); MEAN CORPUSCULAR HEMOGLOBIN 29 pg (25-34); MEAN CORPUSCULAR HGB CONC 32 g/dL (32-36); MEAN CORPUSCULAR VOLUME 91 fL (80-99); MEAN PLATELET VOLUME 10.7 fL (9.0-12.2); MONOCYTES % (AUTO) 10 % (0-12); NEUTROPHILS % (AUTO) 84 % (42-75); PLATELET COUNT 168 10^3/uL (130-400); WHITE BLOOD COUNT 9.5 10^3/uL (4.3-11.0)
[2021-10-22 05:19] LABS: POTASSIUM 3.3 MMOL/L (3.6-5.0)
[2021-10-22 05:20] LABS: CALCIUM 8.3 MG/DL (8.5-10.1)
[2021-10-22 05:24] LABS: CREATININE SERUM 1.75 MG/DL (0.60-1.30)
[2021-10-22] MEDS: PIPERACILLIN SODIUM/TAZOBACTAM 4.5 GM in NS (IVPB) 100 ML IV SCH ×3 (05:25→21:24)
[2021-10-22] MEDS: inSUlin ASPART (NovoLOG) 1 UNIT/0.01 ML (CHARGE PER UNIT) SC SCH ×4 (06:00→21:24)
[2021-10-22] MEDS: FUROSEMIDE 40 MG/4 ML INJ (LASIX) IV SCH ×2 (06:15→17:07)
[2021-10-22] MEDS: CATHETER FLUSH 10 ML SYR IVP SCH ×3 (06:16→21:24)
[2021-10-22] MEDS ORDERED: KCL 20 MEQ TAB (K-DUR) PO SCH (07:00)
[2021-10-22] MEDS ORDERED: METOLAZONE 2.5 MG (ZAROXOLYN) TAB PO SCH (09:00)
--- NOTE | 2021-10-22 09:22 | Diagnostic Imaging Report ---
PROCEDURE: US Hepatic (Liver). INDICATION: Elevated liver enzymes TECHNIQUE: Multiple grayscale sonographic images were obtained of the right upper quadrant of the abdomen. CORRELATION STUDY: None FINDINGS: LIVER: There is uniform echotexture within the visualized portions of the liver. Liver length 18.6 cm, upper limits normal. Appears be slight biphasic direction of the main portal vein with variation during respiration. GALLBLADDER: Cholecystectomy. COMMON BILE DUCT: Nondilated at 0.7 cm. AORTA/IVC: Not well visualized. PANCREAS: Visualized portions appearing unremarkable. RIGHT KIDNEY: 11.0 x 4.1 x 5.2 cm. No hydronephrosis. OTHER: None. IMPRESSION: 1. Negative appearing right upper quadrant abdominal ultrasound. 2. Cholecystectomy. Dictated by: Dictated on workstation # [id number]
[2021-10-22] MEDS ORDERED: RT-ALBUTEROL SULF 2.5 MG/3 ML PRE-MIX VIAL INH PRN (13:15)
--- NOTE | 2021-10-22 13:38 | History & Physical ---
History of Present Illness History of Present Illness Reason for visit/HPI This is a 75 year old female who had been in [facility] for rehabilitation. She had been discharged to home for 1 day and was having weakness so she was brought back to the [facility] who also noted fever and drainage from her right LE so she was then was brought to the emergency room. She was found to have UTI with sepsis as well as decompensated heart failure with elect rolyte abnormalities. She will be admitted to cardiac stepdown for IV antibiotics as well as cardiology consult. Date of Admission Oct 21, 2021 at 21:00 Date Seen by a Provider: Oct 22, 2021 Time Seen by a Provider: 13:36 I consulted on this patient on 10/22/21 13:33 Attending Physician Josie Ott DO Admitting Physician Daisy Garcia MD Consult Farooq Barr MD Allergies and Home Medications Allergies Coded Allergies: Sulfa (Sulfonamide Antibiotics) (Verified Allergy, Intermediate, 06/18/19) since childhood tetanus and diphtheria toxoids (Verified Allergy, Unknown, RASH, 09/08/21) Uncoded Allergies: TAPE (Adverse Reaction, Unknown, 04/05/17) Patient Home Medication List Home Medication List Reviewed: Yes Amlodipine Besylate (Amlodipine Besylate) 5 Mg Tablet, 5 MG PO DAILY, (Reported) Entered as Reported by: ARNOLD BENTLEY on 10/02/18 0741 Amoxicillin/Potassium Clav (Augmentin 875-125 Tablet) 1 Each Tablet, 1 EACH PO BID Prescribed by: BAUTISTA HOBSON on 02/05/21 1344 Aspirin (Aspirin EC) 81 Mg Tablet.dr, 81 MG PO DAILY, (Reported) Entered as Reported by: ARNOLD BENTLEY on 10/02/18 0741 Cefuroxime Axetil (Cefuroxime) 500 Mg Tablet, 500 MG PO BID Prescribed by: MILADIS FISHER on 06/19/19 0722 Cyanocobalamin (Cyanocobalamin Injection) 1,000 Mcg/Ml Inj, 1,000 MCG IJ MONTHLY, (Reported) Entered as Reported by: SARINA GRANT on 04/05/17 1409 Escitalopram Oxalate (Escitalopram Oxalate) 5 Mg Tablet, 5 MG PO HS, (Reported) Entered as Reported by: ARNOLD BENTLEY on 07/17/18 0736 Fenofibrate Nanocrystallized (Fenofibrate) 145 Mg Tablet, 145 MG PO HS, (Reported) Entered as Reported by: SARINA GRANT on 04/05/171406 Furosemide (Furosemide) 20 Mg Tablet, 40 MG PO DAILY, (Reported) Entered as Reported by: SARINA GRANT on 04/05/17 140 Guanfacine HCl (Guanfacine HCl) 1 Mg Tablet, 1 MG PO DAILY, (Reported) Entered as Reported by: SARINA GRANT on 04/05/17 140 Hydrocodone/Acetaminophen (Hydrocodone-Acetamin 5-325 mg) 1 Each Tablet, 1 TAB PO Q4H PRN for PAIN-MODERATE (5-7) Prescribed by: BAUTISTA HOBSON on 09/08/21 1300 Insulin Glargine,Hum.rec.anlog (Toujeo Max Solostar) 300 Unit/1 Ml Insuln.pen, 26 UNIT SQ HS, (Reported) Entered as Reported by: ARNOLD BENTLEY on 10/02/18 0741 Insulin Lispro (Humalog Kwikpen) 100 Unit/1 Ml Insuln.pen, 5 UNIT SQ TIDAC, (Reported) Entered as Reported by: SHANTA SHANKS on 04/23/19 1259 Levothyroxine Sodium (Levothyroxine Sodium) 50 Mcg Tablet, 50 MCG PO DAILY, (Reported) Entered as Reported by: SARINA GRANT on 04/05/17 140 Losartan Potassium (Losartan Potassium) 50 Mg Tablet, 100 MG PO HS, (Reported) Entered as Reported by: SHANTA SHANKS on 06/18/19 1241 Metoprolol Succinate (Toprol Xl) 25 Mg Tab.er.24h, 25 MG PO DAILY Prescribed by: MILADIS FISHER on 06/19/19 0722 Multivitamin (Multivitamins) 1 Each Tablet, 1 EACH PO DAILY, (Reported) Entered as Reported by: SHANTA SHANKS on 06/18/19 1252 Potassium Chloride (Klor-Con M20) 20 Meq Tab.er.prt, 20 MEQ PO BID, (Reported) Entered as Reported by: SARINA GRANT on 04/05/17 140 Simvastatin (Simvastatin) 20 Mg Tablet, 20 MG PO HS, (Reported) Entered as Reported by: ARNOLD BENTLEY on 07/17/18 0736 Warfarin Sodium (Warfarin Sodium) 2 Mg Tablet, 2 MG PO MONSALVE,MO,WE,TH,SAT, (Reported) Entered as Reported by: ARNOLD BENTLEY on 07/17/18 0736 Warfarin Sodium (Warfarin Sodium) 2 Mg Tablet, 1 MG PO SUN,SUN, (Reported) Entered as Reported by: ARNOLD BENTLEY on 10/02/18 0741 [Gentle Move] , 1 CAP PO TIDWM, (Reported) Entered as Reported by: SHANTA SHANKS on 06/18/19 1355 Past Etnhbpp-Uhizks-Bkjvsi Hx Patient Social History Tobacco Use?: No Smoking Status: Never a Smoker Smokeless Tobacco Frequency: Never a User Use of E-Cig and/or Vaping dev: No Substance use?: No Alcohol Use?: No Pt feels they are or have been: Yes Immunizations Up To Date Date of Influenza Vaccine: May 18, 2019 Tetanus Booster (TDap): More Than 5 Years Hepatitis A: Yes Hepatitis B: Yes PED Vaccines UTD: No Date of Pneumonia Vaccine: Jan 29, 2018 Seasonal Allergies Seasonal Allergies: Yes Current Status status: No status: No Advance Directives: Yes Advance Directive Location: Copy from prev record Communicates: Verbally Primary Language: Sudanese Preferred Spoken Language: Sudanese Is interpretation needed?: No Sensory deficits: Vision impairment Implanted or Applied Medical D: Pacemaker, Stents Past Medical History Surgeries: CABG, Section, Coronary Stent, Gallbladder, Hysterectomy, Orthopedic, Tubal Ligation Currently Using CPAP: No Currently Using BIPAP: No Coronary Artery Disease, High Cholesterol, Hypertension [employer] History: Menopausal Sexually Transmitted Disease: No HIV/AIDS: No Arthritis Diabetes, Non-Insulin dep Cataract Loss of Vision: Denies Hearing Impairment: Denies Did You Recieve Any Treatments: No Anxiety, Depression Family Medical History Completed stroke G8 SISTER Diabetes mellitus 19 MOTHER G8 SISTER Hypertension 19 MOTHER Myocardial infarction 19 FATHER G8 SISTER Heart Disease, Diabetes, Hypertension, Stroke Review of Systems Constitutional: fever, weakness EENTM: No see HPI, No no symptoms reported, No ear discharge, No hearing loss, No ear pain, No blurred vision, No double vision, No eye pain, No tearing, No vision loss, No dental problems, No hoarseness, No mouth pain, No mouth swelling, No epistaxis, No nose congestion, No nose pain, No throat pain, No throat swelling, No other Respiratory: short of breath Cardiovascular: edema Gastrointestinal: No RUQ, No LUQ, No RLQ, No LLQ, No no symptoms reported, No see HPI, No abdominal pain, No constipation, No diarrhea, No dysphagia, No hematemesis, No heartburn, No jaundice, No loss of appetite, No melena, No nausea, No vomiting, No other Genitourinary: No no symptoms reported, No see HPI, No decreased output, No discharge, No dysuria, No frequency, No hematuria, No hesitancy, No incontinence, No nocturia, No pain, No other Musculoskeletal: muscle weakness Skin: other (RLE wound) Psychiatric/Neurological: Weakness Physical Exam Vital Signs Vital Signs - First Documented Capillary Refill : Less Than 3 Seconds Height, Weight, BMI Height: 5'5.00" Weight: 206lbs. 0.0oz. 93.407841th; 40.60 BMI Method:Stated General Appearance: No Apparent Distress HEENT: Normal ENT Inspection Neck: Supple Respiratory: Lungs Clear, Decreased Breath Sounds Cardiovascular: Regular Rate, Rhythm, Systolic Murmur Gastrointestinal: Normal Bowel Sounds, Non Tender, Soft Rectal: Deferred Back: No CVA Tenderness Extremity: Inflammation (bilateral lower legs), Pedal Edema Neurologic/Psychiatric: Alert, Oriented x3 Skin: Warm/Dry, Erythema (with superficial baseball sized wound to lateral right lower leg) Comments Laboratory Tests 10/21/21 19:25: White Blood Count 11.4H, Red Blood Count 3.68L, Hemoglobin 11.0L, Hematocrit 33L , Mean Corpuscular Volume 90, Mean Corpuscular Hemoglobin 30, Mean Corpuscular Hemoglobin Concent 33, Red Cell Distribution Width 16.1H, Platelet Count 192, Mean Platelet Volume 10.5, Immature Granulocyte % (Auto) 1, Neutrophils (%) (Auto) 92H, Lymphocytes (%) (Auto) 2L, Monocytes (%) (Auto) 5, Eosinophils (%) (Auto) 0, Basophils (%) (Auto) 0, Neutrophils # (Auto) 10.4H, Lymphocytes # (Auto) 0.3L, Monocytes # (Auto) 0.6, Eosinophils # (Auto) 0.0, Basophils # (Auto) 0.0, Immature Granulocyte # (Auto) 0.1, Neutrophils % (Manual) 95, Lymphocytes % (Manual) 2, Monocytes % (Manual) 3, Blood Morphology Comment N ORMAL, Erythrocyte Sedimentation Rate 43H, Prothrombin Time 16.1H, INR Comment 1.2, Activated Partial Thromboplast Time 42H, D-Dimer 1.16H, Sodium Level 129L, Potassium Level 3.2L, Chloride Level 89L, Carbon Dioxide Level 27, Anion Gap 13, Blood Urea Nitrogen 33H, Creatinine 1.60H, Estimat Glomerular Filtration Rate 33, BUN/Creatinine Ratio 21, Glucose Level 174H, Lactic Acid Level 2.52*H, Calcium Level 9.6, Corrected Calcium 10.1, Magnesium Level 1.7, Total Bilirubin 3.7H, Aspartate Amino Transf (AST/SGOT) 208H, Alanine Aminotransferase (ALT/SGPT) 86H, Alkaline Phosphatase 83, Lactate Dehydrogenase 330H, Total Creatine Kinase 1534H, Creatine Kinase MB 5.3, Myoglobin 2080.6H, Troponin I 0.059H, C-Reactive Protein High Sensitivity 18.19H, B-Type Natriuretic Peptide 1027.9H, Total Protein 6.7, Albumin 3.4, Amylase Level 13L, Lipase < 4L, Beta- Hydroxybutyrate (Chem panel) 0.11, Procalcitonin 6.40H, Free Thyroxine 1.20, TSH [place] Testing 5.82H, Acetaminophen Level < 10L, Serum Alcohol < 10, Influenza Type A (RT-PCR) Not Detected, Influenza Type B (RT-PCR) Not Detected, SARS-CoV-2 RNA (RT-PCR) Not Detected 10/21/21 19:30: Glucometer 169H 10/21/21 19:51: Urine Color YELLOW, Urine Clarity CLOUDY, Urine pH 6.0, Urine Specific [place] 1.020, Urine Protein 2+H, Urine Glucose (UA) NEGATIVE, Urine Ketones NEGATIVE, Urine Nitrite NEGATIVE, Urine Bilirubin 1+H, Urine Urobilinogen 4.0, Urine Leukocyte Esterase 3+H, Urine RBC (Auto) 3+H, Urine RBC 0-2, Urine WBC 50-100H, Urine Crystals NONE, Urine Bacteria LARGEH, Urine Casts NONE, Urine Mucus NEGATIVE, Urine Culture Indicated CULTURE PENDING, Urine Opiates Screen POSITIVEH, Urine Oxycodone Screen NEGATIVE, Urine Methadone Screen NEGATIVE, Urine Propoxyphene Screen NEGATIVE, Urine Barbiturates Screen NEGATIVE, Ur Tricyclic Antidepressants Screen NEGATIVE, Urine Phencyclidine Screen NEGATIVE, Urine Amphetamines Screen NEGATIVE, Urine Methamphetamines Screen NEGATIVE, Urine Benzodiazepines Screen NEGATIVE, Urine Cocaine Screen NEGATIVE, Urine Cannabinoids Screen NEGATIVE 10/21/21 20:15: Ammonia 28 10/21/21 20:22: Blood Gas Puncture Site RGT RAD, Blood Gas Patient Temperature 37.7, Arterial Blood pH 7.45H, Arterial Blood Partial Pressure CO2 42, Arterial Blood Partial Pressure O2 76L, Arterial Blood HCO3 28H, Arterial Blood Total CO2 29.6, Arterial Blood Oxygen Saturation 96, Arterial Blood Base Excess 4.6H, Hollis Test POS, Blood Gas Ventilator Setting NO, Blood Gas Inspired Oxygen 3L 10/21/21 21:55: Mean Blood Glucose [Pending], Hemoglobin A1c [Pending], Lactic Acid Level 1.21 10/21/21 22:42: Glucometer 173H 10/22/21 04:17: White Blood Count 9.5, Red Blood Count 2.99L, Hemoglobin 8.8L, Hematocrit 27L, Mean Corpuscular Volume 91, Mean Corpuscular Hemoglobin 29, Mean Corpuscular Hemoglobin Concent 32, Red Cell Distribution Width 16.1H, Platelet Count 168, Mean Platelet Volume 10.7, Immature Granulocyte % (Auto) 1, Neutrophils (%) (Auto) 84H, Lymphocytes (%) (Auto) 6L, Monocytes (%) (Auto) 10, Eosinophils (%) (Auto) 0, Basophils (%) (Auto) 0, Neutrophils # (Auto) 8.0H, Lymphocytes # (Auto) 0.5L, Monocytes # (Auto) 1.0, Eosinophils # (Auto) 0.0, Basophils # (Auto) 0.0, Immature Granulocyte # (Auto) 0.1, Sodium Level 132L, Potassium Level 3.3L, Chloride Level 94L, Carbon Dioxide Level 25, Anion Gap 13, Blood Urea Nitrogen 33H, Creatinine 1.75H, Estimat Glomerular Filtration Rate 30, BUN/Creatinine Ratio 19, Glucose Level 178H, Calcium Level 8.3L 10/22/21 10:59: Glucometer 162H Microbiology 10/21/21 Blood Culture - Preliminary, Resulted Gram Negative Munir See Comments 10/21/21 Urine Culture - Preliminary, Resulted Escherichia coli Assessment/Plan Assessment and Plan 1. UTI with Sepsis--on vancomycin and zosyn, gentle IVFs due to decompensated heart failure 2. Chronic Edema of LEs with Chronic Venous Stasis--on IV lasix for diuresis and is supposed to start lymphedema therapy 3. Decompensated CHF--on IV lasix, cardiology consulted 4. Chronic Stage 3 Kidney Failure--monitor BUN/Cr with IVFs and IV lasix 5. Hyponatremia, Hypokalemia--IVFs of 1/2 NS with KCL and oral potassium replacement 6. History of Atrial Fibrillation--on xarelto and in NSR 7. History of CAD and SSS with pacemaker--stable 8. Hypotension--improved post fluid bolus 9. Weakness--start PT/OT Admission Diagnosis Admission Status: Inpatient Order (span 2 midnights) Reason for Inpatient Admission: Will need at least 48hrs of IV abx JOSIE OTT DO Oct 22, 2021 13:38
[2021-10-22] MEDS: 1/2 NS W/KCL 20 MEQ/L 1,000 ML IV SCH (13:42)
--- NOTE | 2021-10-22 14:59 | Consultation-Cardiology ---
HPI-Cardiology Cardiology Consultation: Date of Consultation 10/22/21 Time Seen by a Provider: 13:30 Date of Admission Attending Physician Nereyda Ott DO Admitting Physician Daisy Garcia MD Consulting Physician EDISON CORRALES MD, MA, FACP, FACC, FSCAI, CCDS HPI: Chief Complaint: Reason for Card consult: h/o ch a fib and CAD 75 yo woman admitted to the [facility] [place] last night with increasing malaise and wea kness and confusion. She denies any cp or palp or syncope. Has chronic gen malaise and weakness. Denies n/v/d. Has chronic, mild to mod, exertional shortness of breath. Has chronic, bilateral leg swelling. Review of Systems-Cardiology Review of Systems Constitutional: As described under HPI Eyes: No vision change Ears/Nose/Throat: No ear discharge, No nasal drainage, No recent hearing loss Respiratory: As described under HPI Cardiovascular: As described under HPI Gastrointestinal: As described under HPI Genitourinary: No dysuria, No hematuria, No urine frequency changes Musculoskeletal: back pain (chroni) Skin: other (relatively chronic leg swelling with overlying redness of skin and brakes in the skin surface (superficial ulcerations)) Psychiatric/Neurological: No focal weakness, No syncope Hematologic: No bleeding abnormalities OJK-[id number]-Wllytc Hx Patient Social History Smoking Status: Never a Smoker 2nd Hand Smoke Exposure: No Have you traveled recently?: No Alcohol Use?: No Pt feels they are or have been: Yes Immunizations Up To Date Date of Pneumonia Vaccine: Jan 29, 2018 Date of Influenza Vaccine: May 18, 2019 Past Medical History PMH As described under Assessment. Family Medical History Family History: Completed stroke G8 SISTER Diabetes mellitus 19 MOTHER G8 SISTER Hypertension 19 MOTHER Myocardial infarction 19 FATHER G8 SISTER Allergies and Home Medications Allergies Coded Allergies: Sulfa (Sulfonamide Antibiotics) (Verified Allergy, Intermediate, 06/18/19) since childhood tetanus and diphtheria toxoids (Verified Allergy, Unknown, RASH, 09/08/21) Uncoded Allergies: TAPE (Adverse Reaction, Unknown, 04/05/17) Patient Home Medication List Home Medication List Reviewed: Yes Amlodipine Besylate (Amlodipine Besylate) 5 Mg Tablet, 5 MG PO DAILY, (Reported) Entered as Reported by: ARNOLD BENTLEY on 10/02/18 0741 Amoxicillin/Potassium Clav (Augmentin 875-125 Tablet) 1 Each Tablet, 1 EACH PO BID Prescribed by: BAUTISTA HOBSON on 02/05/21 1344 Aspirin (Aspirin EC) 81 Mg Tablet.dr, 81 MG PO DAILY, (Reported) Entered as Reported by: ARNOLD BENTLEY on 10/02/18 0741 Cefuroxime Axetil (Cefuroxime) 500 Mg Tablet, 500 MG PO BID Prescribed by: MILADIS FISHER on 06/19/19 0722 Cyanocobalamin (Cyanocobalamin Injection) 1,000 Mcg/Ml Inj, 1,000 MCG IJ MONTHLY, (Reported) Entered as Reported by: SARINA GRANT on 04/05/17 140 Escitalopram Oxalate (Escitalopram Oxalate) 5 Mg Tablet, 5 MG PO HS, (Reported) Entered as Reported by: ARNOLD BENTLEY on 07/17/18 0736 Fenofibrate Nanocrystallized (Fenofibrate) 145 Mg Tablet, 145 MG PO HS, (Reported) Entered as Reported by: SARINA GRANT on 04/05/17 140 Furosemide (Furosemide) 20 Mg Tablet, 40 MG PO DAILY, (Reported) Entered as Reported by: SARINA GRANT on 04/05/17 1407 Guanfacine HCl (Guanfacine HCl) 1 Mg Tablet, 1 MG PO DAILY, (Reported) Entered as Reported by: SARINA GRANT on 04/05/17 1407 Hydrocodone/Acetaminophen (Hydrocodone-Acetamin 5-325 mg) 1 Each Tablet, 1 TAB PO Q4H PRN for PAIN-MODERATE (5-7) Prescribed by: BAUTISTA HOBSON on 09/08/21 1300 Insulin Glargine,Hum.rec.anlog (Toujeo Max Solostar) 300 Unit/1 Ml Insuln.pen, 26 UNIT SQ HS, (Reported) Entered as Reported by: ARNOLD BENTLEY on 10/02/18 0741 Insulin Lispro (Humalog Kwikpen) 100 Unit/1 Ml Insuln.pen, 5 UNIT SQ TIDAC, (Reported) Entered as Reported by: SHANTA SHANKS on 04/23/19 1259 Levothyroxine Sodium (Levothyroxine Sodium) 50 Mcg Tablet, 50 MCG PO DAILY, (Reported) Entered as Reported by: SARINA GRANT on 04/05/17 1407 Losartan Potassium (Losartan Potassium) 50 Mg Tablet, 100 MG PO HS, (Reported) Entered as Reported by: SHANTA SHANKS on 06/18/19 1241 Metoprolol Succinate (Toprol Xl) 25 Mg Tab.er.24h, 25 MG PO DAILY Prescribed by: MILADIS FISHER on 06/19/19 0722 Multivitamin (Multivitamins) 1 Each Tablet, 1 EACH PO DAILY, (Reported) Entered as Reported by: SHANTA SHANKS on 06/18/19 1252 Potassium Chloride (Klor-Con M20) 20 Meq Tab.er.prt, 20 MEQ PO BID, (Reported) Entered as Reported by: SARINA GRANT on 04/05/17 1407 Simvastatin (Simvastatin) 20 Mg Tablet, 20 MG PO HS, (Reported) Entered as Reported by: ARNOLD BENTLEY on 07/17/18 0736 Warfarin Sodium (Warfarin Sodium) 2 Mg Tablet, 2 MG PO MONSALVE,MO,WE,TH,SAT, (Reported) Entered as Reported by: ARNOLD BENTLEY on 07/17/18 0736 Warfarin Sodium (Warfarin Sodium) 2 Mg Tablet, 1 MG PO TU,SUN, (Reported) Entered as Reported by: ARNOLD BENTLEY on 10/02/18 0741 [Gentle Move] , 1 CAP PO TIDWM, (Reported) Entered as Reported by: SHANTA SHANKS on 06/18/19 1355 Physical Exam-Cardiology Physical Exam Vital Signs/I&O 10/22/21 10/22/21 10/22/21 10/22/21 03:00 04:00 04:00 04:00 Temp 36.1 Pulse 62 60 Resp 18 21 B/P (MAP) 119/50 (73) 124/53 (76) Pulse Ox 99 99 O2 Delivery Nasal Cannula Nasal Cannula Nasal Cannula O2 Flow Rate 3.00 3.00 3.00 10/22/21 10/22/21 10/22/21 10/22/21 05:00 06:00 07:00 07:00 Pulse 60 61 60 60 Resp 18 16 21 B/P (MAP) 132/48 (76) 113/50 (71) 122/52 (75) Pulse Ox 100 98 99 O2 Delivery Nasal Cannula Nasal Cannula Nasal Cannula O2 Flow Rate 3.00 3.00 3.00 10/22/21 10/22/21 10/22/21 10/22/21 08:00 08:19 08:20 09:00 Temp 36.6 Pulse 60 70 Resp 20 16 B/P (MAP) 124/51 (75) 131/66 (87) Pulse Ox 99 100 O2 Delivery Nasal Cannula Nasal Cannula Nasal Cannula Room Air O2 Flow Rate 3.00 2.00 2.00 10/22/21 10/22/21 10/22/21 10/22/21 09:53 11:42 11:42 12:00 Temp 37.0 Pulse 60 Resp 25 B/P (MAP) 136/52 (80) Pulse Ox 100 O2 Delivery Nasal Cannula Nasal Cannula Nasal Cannula O2 Flow Rate 2.00 2.00 2.00 10/22/21 10/22/21 10/22/21 12:35 12:35 13:00 Temp 37.0 Pulse 80 68 Pulse Ox 99 99 O2 Delivery Nasal Cannula O2 Flow Rate 2.00 10/21/21 23:59 Intake Total 450 ml Output Total 175 ml Balance 275 ml Capillary Refill : Less Than 3 Seconds Constitutional: AAO x 3, well-developed, well-nourished HEENT: EOMI, hearing is well preserved; No xanthelasmas are seen Neck: carotid pulses are 2 + bilaterally, with good upstrokes Respiratory: No accessory muscle use; other (fair to good, bilat air entry that is diminished at the bases) Cardiovascular: irregularly irregular, S1 and S2, systolic murmur (soft YUSUF at card basee) Gastrointestinal: No tender; soft; No guarding, No rebound; audible bowel sounds Extremities: No clubbing, No cyanosis; significant edema Neurologic/Psychiatric: oriented x 3, other (moves all limbs equally) Skin: other (redness of both lower legs and multiple superfical ulcerations on both sides) Data Review Labs Laboratory Tests 10/21/21 19:25: White Blood Count 11.4H, Red Blood Count 3.68L, Hemoglobin 11.0L, Hematocrit 33L , Mean Corpuscular Volume 90, Mean Corpuscular Hemoglobin 30, Mean Corpuscular Hemoglobin Concent 33, Red Cell Distribution Width 16.1H, Platelet Count 192, Mean Platelet Volume 10.5, Immature Granulocyte % (Auto) 1, Neutrophils (%) (Au to) 92H, Lymphocytes (%) (Auto) 2L, Monocytes (%) (Auto) 5, Eosinophils (%) (Auto) 0, Basophils (%) (Auto) 0, Neutrophils # (Auto) 10.4H, Lymphocytes # (Auto) 0.3L, Monocytes # (Auto) 0.6, Eosinophils # (Auto) 0.0, Basophils # (Auto) 0.0, Immature Granulocyte # (Auto) 0.1, Neutrophils % (Manual) 95, Lymphocytes % (Manual) 2, Monocytes % (Manual) 3, Blood Morphology Comment NORMAL, Erythrocyte Sedimentation Rate 43H, Prothrombin Time 16.1H, INR Comment 1.2, Activated Partial Thromboplast Time 42H, D-Dimer 1.16H, Sodium Level 129L, Potassium Level 3.2L, Chloride Level 89L, Carbon Dioxide Level 27, Anion Gap 13, Blood Urea Nitrogen 33H, Creatinine 1.60H, Estimat Glomerular Filtration Rate 33, BUN/Creatinine Ratio 21, Glucose Level 174H, Lactic Acid Level 2.52*H, Calcium Level 9.6, Corrected Calcium 10.1, Magnesium Level 1.7, Total Bilirubin 3.7H, Aspartate Amino Transf (AST/SGOT) 208H, Alanine Aminotransferase (ALT/SGPT) 86H, Alkaline Phosphatase 83, Lactate Dehydrogenase 330H, Total Creat ine Kinase 1534H, Creatine Kinase MB 5.3, Myoglobin 2080.6H, Troponin I 0.059H, C-Reactive Protein High Sensitivity 18.19H, B-Type Natriuretic Peptide 1027.9H, Total Protein 6.7, Albumin 3.4, Amylase Level 13L, Lipase < 4L, Beta- Hydroxybutyrate (Chem panel) 0.11, Procalcitonin 6.40H, Free Thyroxine 1.20, TSH [place] Testing 5.82H, Acetaminophen Level < 10L, Serum Alcohol < 10, Influenza Type A (RT-PCR) Not Detected, Influenza Type B (RT-PCR) Not Detected, SARS-CoV-2 RNA (RT-PCR) Not Detected 10/21/21 19:30: Glucometer 169H 10/21/21 19:51: Urine Color YELLOW, Urine Clarity CLOUDY, Urine pH 6.0, Urine Specific [place] 1.020, Urine Protein 2+H, Urine Glucose (UA) NEGATIVE, Urine Ketones NEGATIVE, Urine Nitrite NEGATIVE, Urine Bilirubin 1+H, Urine Urobilinogen 4.0, Urine Leukocyte Esterase 3+H, Urine RBC (Auto) 3+H, Urine RBC 0-2, Urine WBC 50-100H, Urine Crystals NONE, Urine Bacteria LARGEH, Urine Casts NONE, Urine Mucus NEGATIVE, Urine Culture Indicated CULTURE PENDING, Urine Opiates Screen POSITIVEH, Urine Oxycodone Screen NEGATIVE, Urine Methadone Screen NEGATIVE, Urine Propoxyphene Screen NEGATIVE, Urine Barbiturates Screen NEGATIVE, Ur Tricyclic Antidepressants Screen NEGATIVE, Urine Phencyclidine Screen NEGATIVE, Urine Amphetamines Screen NEGATIVE, Urine Methamphetamines Screen NEGATIVE, Urine Benzodiazepines Screen NEGATIVE, Urine Cocaine Screen NEGATIVE, Urine Cannabinoids Screen NEGATIVE 10/21/21 20:15: Ammonia 28 10/21/21 20:22: Blood Gas Puncture Site RGT RAD, Blood Gas Patient Temperature 37.7, Arterial Blood pH 7.45H, Arterial Blood Partial Pressure CO2 42, Arterial Blood Partial Pressure O2 76L, Arterial Blood HCO3 28H, Arterial Blood Total CO2 29.6, Arterial Blood Oxygen Saturation 96, Arterial Blood Base Excess 4.6H, [place]is Test POS, Blood Gas Ventilator Setting NO, Blood Gas Inspired Oxygen 3L 10/21/21 21:55: Lactic Acid Level 1.21 10/21/21 22:42: Glucometer 173H 10/22/21 04:17: White Blood Count 9.5, Red Blood Count 2.99L, Hemoglobin 8.8L, Hematocrit 27L, Mean Corpuscular Volume 91, Mean Corpuscular Hemoglobin 29, Mean Corpuscular Hemoglobin Concent 32, Red Cell Distribution Width 16.1H, Platelet Count 168, Mean Platelet Volume 10.7, Immature Granulocyte % (Auto) 1, Neutrophils (%) (Auto) 84H, Lymphocytes (%) (Auto) 6L, Monocytes (%) (Auto) 10, Eosinophils (%) (Auto) 0, Basophils (%) (Auto) 0, Neutrophils # (Auto) 8.0H, Lymphocytes # (Auto) 0.5L, Monocytes # (Auto) 1.0, Eosinophils # (Auto) 0.0, Basophils # (Auto) 0.0, Immature Granulocyte # (Auto) 0.1, Sodium Level 132L, Potassium Level 3.3L, Chloride Level 94L, Carbon Dioxide Level 25, Anion Gap 13, Blood Urea Nitrogen 33H, Creatinine 1.75H, Estimat Glomerular Filtration Rate 30, BU N/Creatinine Ratio 19, Glucose Level 178H, Calcium Level 8.3L 10/22/21 10:59: Glucometer 162H Microbiology 10/21/21 Blood Culture - Preliminary, Resulted Gram Negative Munir See Comments 10/21/21 Urine Culture - Preliminary, Resulted Escherichia coli Laboratory Tests 10/21/21 19:25 10/22/21 04:17 A/P-Cardiology Assessment/Admission Diagnosis UTI with sepsis and mental status changes Bilateral leg cellulitis Permanent A Fib S/p perm pacemaker - functioning normally on tele monitoring Coronary artery disease, - cardiac catheterization on 04/06/2017 revealing severe stenosis at the mid right coronary artery, underwent stent placement using Xience Alpine 3.0 x 33 mm stent with good results. - cardiac catheterization done July 17, 2018 revealed severe multivessel coronary artery disease including mid and distal LAD, first and second obtuse marginal, and dominant RCA, - Had CABG 4 on August 19, 2018 using vein graft to the first obtuse marginal, second obtuse marginal and distal right coronary artery in addition to LUGO to LAD, - Cardiac catheterization following an abnormal stress test was done on April 23, 2019 showing patent LUGO to LAD, vein graft to the right PDA and vein graft jump graft to the OM1 and OM 2 with excellent flow distally, normal left ventricular end-diastolic function. Ischemic cardiomyopathy - Stress test done December 2020 showing fixed defect involving the whole inferior wall and inferolateral wall, SSS 23, SDS 0, TID 1.16. Hypokinesia of the inferior wall, ejection fraction 42% H/o hypertension - she has intolerance to lisinopril (cough) Hyperlipidemia - intolerant to Lipitor (n/v) but has been able to tolerate simvastatin Diabetes mellitus, followed and managed by primary care physician Degenerative joint disease, history of knee replacement. Mild bilateral carotid stenosis, carotid ultrasound done in July 2020 Mild hyponatremia and hypokalemia, likely due to diuretic therapy Discussion and Recomendations * Complex management due to multiple comorbidities (see above) * Replenish lytes * Diuretics as needed and as tolerated * Treat UTI and cellulitis (Med svce) * Monitor labs closely EDISON CORRALES MD [facility] Oct 22, 2021 14:59
[2021-10-22] MEDS: RIVAROXABAN 20 MG TABLET (XARELTO) PO SCH (17:07)
[2021-10-22] MEDS ORDERED: LOSA50TA63 PO (18:11)
[2021-10-22] MEDS ORDERED: HYDR-3820 PO (18:11)
[2021-10-22] MEDS ORDERED: METO2.5T (18:14)
[2021-10-22] MEDS ORDERED: SILVER SULFADIAZINE 50 GM CREAM TOP SCH (21:00)
[2021-10-23] VITALS (7 sets, daily range): BP systolic 103–136; BP diastolic 56–73
[2021-10-23] MEDS: 1/2 NS W/KCL 20 MEQ/L 1,000 ML IV SCH ×2 (03:38→20:51)
[2021-10-23] MEDS ORDERED: VANCOMYCIN 1 GM/NS 250 ML IVPB IV SCH ×2 (04:00)
[2021-10-23] MEDS: PIPERACILLIN SODIUM/TAZOBACTAM 4.5 GM in NS (IVPB) 100 ML IV SCH ×3 (05:06→20:52)
[2021-10-23] MEDS: CATHETER FLUSH 10 ML SYR IVP SCH ×3 (05:06→22:15)
[2021-10-23] MEDS: inSUlin ASPART (NovoLOG) 1 UNIT/0.01 ML (CHARGE PER UNIT) SC SCH ×4 (05:45→20:36)
[2021-10-23] MEDS: FUROSEMIDE 40 MG/4 ML INJ (LASIX) IV SCH ×2 (06:11→17:29)
[2021-10-23 06:15] LABS: HEMATOCRIT 29 % (35-52); HEMOGLOBIN 9.3 g/dL (11.5-16.0); MEAN CORPUSCULAR HEMOGLOBIN 29 pg (25-34); MEAN CORPUSCULAR HGB CONC 32 g/dL (32-36); MEAN CORPUSCULAR VOLUME 92 fL (80-99); MEAN PLATELET VOLUME 10.4 fL (9.0-12.2); PLATELET COUNT 145 10^3/uL (130-400); WHITE BLOOD COUNT 6.9 10^3/uL (4.3-11.0)
[2021-10-23 06:28] LABS: ALBUMIN 2.7 GM/DL (3.2-4.5); POTASSIUM 3.2 MMOL/L (3.6-5.0)
[2021-10-23 06:29] LABS: CALCIUM 8.5 MG/DL (8.5-10.1)
[2021-10-23 06:30] LABS: TOTAL PROTEIN 5.5 GM/DL (6.4-8.2)
[2021-10-23 06:32] LABS: BILIRUBIN,TOTAL 2.8 MG/DL (0.1-1.0)
[2021-10-23 06:34] LABS: CREATININE SERUM 1.51 MG/DL (0.60-1.30)
[2021-10-23 06:37] LABS: MAGNESIUM 1.6 MG/DL (1.6-2.4)
[2021-10-23] MEDS ORDERED: KCL 20 MEQ TAB (K-DUR) PO SCH (07:00)
[2021-10-23] MEDS ORDERED: MAGNESIUM OXIDE (MAG-OX)400 MG TAB PO NR (11:30)
[2021-10-23] MEDS ORDERED: SENNA W/DOCUSATE (SENOKOT S) TABLET PO NR (11:30)
[2021-10-23] MEDS ORDERED: LORATADINE (CLARITIN) 10 MG TAB PO NR (11:30)
--- NOTE | 2021-10-23 11:36 | Progress Note ---
Subjective Date Seen by a Provider: Oct 23, 2021 Time Seen by a Provider: 11:30 Subjective/Events-last exam Fwup UTI with sepsis--cultures growing out E. coli, Chronic Renal Failure, Decompensated CHF, Hypokalemia, Hyponatremia, edema with chronic venous stasis and RLE stasis ulcer. Feeling better. Has been up with only 1 person assist. Focused Exam Lactate Level 10/21/21 19:25: Lactic Acid Level 2.52*H 10/21/21 21:55: Lactic Acid Level 1.21 Objective Exam Vital Signs Date Time Temp Pulse Resp B/P (MAP) Pulse Ox O2 Delivery O2 Flow Rate FiO2 10/23/21 11:11 36.9 71 18 116/73 (87) 95 Nasal Cannula 2.00 10/23/21 08:37 37.3 78 18 136/64 (88) 97 Nasal Cannula 2.00 10/23/21 07:00 73 10/23/21 04:00 36.8 73 18 112/56 (74) 94 Nasal Cannula 2.00 10/23/21 01:00 80 10/23/21 00:03 37.0 74 18 106/65 (79) 96 Nasal Cannula 2.00 10/22/21 21:36 Nasal Cannula 2.00 10/22/21 19:40 37.5 79 16 134/60 (84) 96 Nasal Cannula 2.00 10/22/21 19:00 80 10/22/21 16:00 37.5 71 16 125/68 (87) 98 Nasal Cannula 2.00 10/22/21 13:00 68 10/22/21 12:35 37.0 80 99 10/22/21 12:35 99 Nasal Cannula 2.00 10/22/21 12:00 60 25 136/52 (80) 100 Nasal Cannula 2.00 10/22/21 11:42 Nasal Cannula 2.00 10/22/21 11:42 37.0 I & O 10/23/21 07:00 Intake Total 1560 ml Output Total 3100 ml Balance -1540 ml Capillary Refill : Less Than 3 Seconds General Appearance: No Apparent Distress Neck: Supple Respiratory: Lungs Clear Cardiovascular: Regular Rate, Rhythm, Systolic Murmur, Irregularly Irregular Gastrointestinal: normal bowel sounds, non tender, soft Extremity: No Calf Tenderness, Pedal Edema (improved from yesterd) Neurologic/Psychiatric: Alert, Oriented x3 Results Lab Laboratory Tests 10/22/21 16:08: Glucometer 204H 10/22/21 20:10: Glucometer 144H 10/23/21 05:33: Glucometer 164H 10/23/21 06:00: White Blood Count 6.9, Red Blood Count 3.18L, Hemoglobin 9.3L, Hematocrit 29L, Mean Corpuscular Volume 92, Mean Corpuscular Hemoglobin 29, Mean Corpuscular Hemoglobin Concent 32, Red Cell Distribution Width 16.0H, Platelet Count 145, Mean Platelet Volume 10.4, Sodium Level 132L, Potassium Level 3.2L, Chloride Level 92L, Carbon Dioxide Level 31, Anion Gap 9, Blood Urea Nitrogen 31H, Creatinine 1.51H, Estimat Glomerular Filtration Rate 36, BUN/Creatinine Ratio 21, Glucose Level 174H, Calcium Level 8.5, Corrected Calcium 9.5, Magnesium Level 1.6, Total Bilirubin 2.8H, Aspartate Amino Transf (AST/SGOT) 111H, Alanine Aminotransferase (ALT/SGPT) 61H, Alkaline Phosphatase 64, Total Protein 5.5L, Albumin 2.7L 10/23/21 10:34: Glucometer 159H Microbiology 10/21/21 Blood Culture - Preliminary, Resulted Escherichia coli See Comments 10/21/21 Gram Stain, Resulted Pending 10/21/21 Wound Culture - Preliminary, Resulted Coryneform bacteria 10/21/21 Urine Culture - Preliminary, Resulted Escherichia coli Assessment/Plan Assessment/Plan Assess & Plan/Chief Complaint 1. UTI with Sepsis--E. coli--DC Vanc and continue zosyn 2. Chronic Renal Failure--BUN/Cr improved this morning 3. Decompensated CHF--diuresing well with IV lasix 4. Hypokalemia--increase KCL dosing to BID 5. Hyponatremia--improving 6. Weakness--up to chair and start PT/OT 7. History of CAD--stable 8. Chronic A Fib--rate stable, on xarelto 9. SSS--S/P permanent pacemaker Clinical Quality Measures Admission Status Admission Dx 1. UTI with Sepsis--on vancomycin and zosyn, gentle IVFs due to decompensated heart failure 2. Chronic Edema of LEs with Chronic Venous Stasis--on IV lasix for diuresis and is supposed to start lymphedema therapy 3. Decompensated CHF--on IV lasix, cardiology consulted 4. Chronic Stage 3 Kidney Failure--monitor BUN/Cr with IVFs and IV lasix 5. Hyponatremia, Hypokalemia--IVFs of 1/2 NS with KCL and oral potassium replacement 6. History of Atrial Fibrillation--on xarelto and in NSR 7. History of CAD and SSS with pacemaker--stable 8. Hypotension--improved post fluid bolus 9. Weakness--start PT/OT JOSIE MENDEZ DO Oct 23, 2021 11:36
--- NOTE | 2021-10-23 17:20 | Progress Note - Cardiology ---
Cardiology SOAP Progress Note Subjective: No cp or palp or syncope Gen malaise and weakness present No n/v Objective: I&O/Vital Signs 10/23/21 10/23/21 10/23/21 10/23/21 07:00 08:37 09:30 11:11 Temp 37.3 36.9 Pulse 73 78 71 Resp 18 18 B/P (MAP) 136/64 (88) 116/73 (87) Pulse Ox 97 95 O2 Delivery Nasal Cannula Nasal Cannula Nasal Cannula O2 Flow Rate 2.00 2.00 2.00 10/23/21 10/23/21 12:34 15:55 Temp 36.6 Pulse 73 70 Resp 19 B/P (MAP) 103/61 (75) Pulse Ox 96 O2 Delivery Nasal Cannula O2 Flow Rate 2.00 10/23/21 00:00 Intake Total 1360 ml Output Total 2450 ml Balance -1090 ml Weight (Pounds): 206 Weight (Ounces): 0.0 Weight (Calculated Kilograms): [id number] Constitutional: AAO x 3, well-developed, well-nourished Respiratory: No accessory muscle use; other (fair to good, bilat air entry that is diminished at the bases) Cardiovascular: irregularly irregular, S1 and S2, systolic murmur (soft YUSUF at card basee) Gastrointestional: No tender; soft; No guarding, No rebound; audible bowel sounds Extremities: No clubbing, No cyanosis; significant edema Neurologic/Psychiatric: oriented x 3, other (moves all limbs equally) Skin: other (redness of both lower legs and multiple superfical ulcerations on both sides) Results/Procedures: Labs Laboratory Tests 10/22/21 20:10: Glucometer 144H 10/23/21 05:33: Glucometer 164H 10/23/21 06:00: White Blood Count 6.9, Red Blood Count 3.18L, Hemoglobin 9.3L, Hematocrit 29L, Mean Corpuscular Volume 92, Mean Corpuscular Hemoglobin 29, Mean Corpuscular Hemoglobin Concent 32, Red Cell Distribution Width 16.0H, Platelet Count 145, Mean Platelet Volume 10.4, Sodium Level 132L, Potassium Level 3.2L, Chloride Level 92L, Carbon Dioxide Level 31, Anion Gap 9, Blood Urea Nitrogen 31H, Creatinine 1.51H, Estimat Glomerular Filtration Rate 36, BUN/Creatinine Ratio 21, Glucose Level 174H, Calcium Level 8.5, Corrected Calcium 9.5, Magnesium Level 1.6, Total Bilirubin 2.8H, Aspartate Amino Transf (AST/SGOT) 111H, Alanine Aminotransferase (ALT/SGPT) 61H, Alkaline Phosphatase 64, Total Protein 5.5L, Albumin 2.7L 10/23/21 10:34: Glucometer 159H 10/23/21 15:48: Glucometer 179H Microbiology 10/21/21 Blood Culture - Preliminary, Resulted Escherichia coli See Comments 10/21/21 Gram Stain, Resulted Pending 10/21/21 Wound Culture - Preliminary, Resulted Coryneform bacteria 10/21/21 Urine Culture - Final, Complete Escherichia coli A/P: Assessment: UTI with sepsis and mental status changes Bilateral leg cellulitis Permanent A Fib S/p perm pacemaker - functioning normally on tele monitoring Coronary artery disease, - cardiac catheterization on 04/06/2017 revealing severe stenosis at the mid right coronary artery, underwent stent placement using Xience Alpine 3.0 x 33 mm stent - cardiac catheterization done July 17, 2018 revealed severe multivessel coronary artery disease including mid and distal LAD, first and second obtuse marginal, and dominant RCA - Had CABG 4 on August 19, 2018 using vein graft to the first obtuse marginal, second obtuse marginal and distal right coronary artery in addition to LUGO to LAD, - Cardiac catheterization following an abnormal stress test was done on April 23, 2019 showing patent LUGO to LAD, and patent vein graft to the right PDA and vein graft jump graft to the OM1 and OM 2 with excellent flow distally Ischemic cardiomyopathy - Stress test done December 2020 showing fixed defect involving the whole inferior wall and inferolateral wall, SSS 23, SDS 0, TID 1.16. Hypokinesia of the inferior wall, ejection fraction 42% H/o hypertension - she has intolerance to lisinopril (cough) Hyperlipidemia - intolerant to Lipitor (n/v) but has been able to tolerate simvastatin Diabetes mellitus, followed and managed by primary care physician Degenerative joint disease, history of knee replacement. Mild bilateral carotid stenosis, carotid ultrasound done in July 2020 Mild hyponatremia and hypokalemia, likely due to diuretic therapy Plan: * Complex management due to multiple comorbidities (see above) * Replenish lytes * Diuretics as needed and as tolerated * Treat UTI and cellulitis (Med svce) * Monitor labs closely EDISON CORRALES MD FACP FAC CCDS Oct 23, 2021 17:19
[2021-10-23] MEDS: RIVAROXABAN 20 MG TABLET (XARELTO) PO SCH (17:29)
[2021-10-23] MEDS: KCL 20 MEQ TAB (K-DUR) PO SCH (17:29)
[2021-10-23] MEDS: SENNA W/DOCUSATE (SENOKOT S) TABLET PO SCH (20:51)
[2021-10-24] VITALS (7 sets, daily range): BP systolic 94–120; BP diastolic 43–64
[2021-10-24] MEDS ORDERED: TROUGH ORDER-PHARMACY XX NR (03:00)
[2021-10-24] MEDS: inSUlin ASPART (NovoLOG) 1 UNIT/0.01 ML (CHARGE PER UNIT) SC SCH ×4 (04:55→20:59)
[2021-10-24] MEDS: PIPERACILLIN SODIUM/TAZOBACTAM 4.5 GM in NS (IVPB) 100 ML IV SCH (04:58)
[2021-10-24] MEDS: 1/2 NS W/KCL 20 MEQ/L 1,000 ML IV SCH (04:59)
[2021-10-24 05:45] LABS: HEMATOCRIT 29 % (35-52); HEMOGLOBIN 9.4 g/dL (11.5-16.0); MEAN CORPUSCULAR HEMOGLOBIN 30 pg (25-34); MEAN CORPUSCULAR HGB CONC 32 g/dL (32-36); MEAN CORPUSCULAR VOLUME 92 fL (80-99); MEAN PLATELET VOLUME 11.1 fL (9.0-12.2); PLATELET COUNT 161 10^3/uL (130-400); WHITE BLOOD COUNT 6.7 10^3/uL (4.3-11.0)
[2021-10-24] MEDS: CATHETER FLUSH 10 ML SYR IVP SCH ×3 (05:50→19:55)
[2021-10-24] MEDS: FUROSEMIDE 40 MG/4 ML INJ (LASIX) IV SCH ×2 (05:56→17:24)
[2021-10-24 06:22] LABS: ALBUMIN 2.6 GM/DL (3.2-4.5); CALCIUM 8.4 MG/DL (8.5-10.1); CREATININE SERUM 1.39 MG/DL (0.60-1.30); POTASSIUM 3.4 MMOL/L (3.6-5.0); TOTAL PROTEIN 5.5 GM/DL (6.4-8.2)
--- NOTE | 2021-10-24 08:21 | Progress Note ---
Objective Exam Vital Signs Vital Signs Date Time Temp Pulse Resp B/P (MAP) Pulse Ox O2 Delivery O2 Flow Rate FiO2 10/24/21 06:36 66 10/24/21 06:00 64 102/64 (77) 10/24/21 04:20 36.3 68 18 94/58 (70) 98 Nasal Cannula 2.00 10/24/21 01:00 82 10/23/21 23:31 36.9 67 18 114/64 (81) 96 Nasal Cannula 2.00 10/23/21 21:15 Nasal Cannula 2.00 10/23/21 20:42 36.3 70 19 111/61 (78) 97 Nasal Cannula 2.00 10/23/21 19:00 67 10/23/21 15:55 36.6 70 19 103/61 (75) 96 Nasal Cannula 2.00 10/23/21 12:34 73 10/23/21 11:11 36.9 71 18 116/73 (87) 95 Nasal Cannula 2.00 10/23/21 09:30 Nasal Cannula 2.00 10/23/21 08:37 37.3 78 18 136/64 (88) 97 Nasal Cannula 2.00 I & O 10/24/21 06:59 Intake Total 1420 ml Output Total 2625 ml Balance -1205 ml General Appearance: No Apparent Distress Eyes: Bilateral Eye Normal Inspection, Bilateral Eye PERRL HEENT: Normal ENT Inspection Neck: Supple Respiratory: Lungs Clear Cardiovascular: Regular Rate, Rhythm, Systolic Murmur, Irregularly Irregular Gastrointestinal: Normal Bowel Sounds, Non Tender, Soft Rectal: Deferred Back: No CVA Tenderness Extremity: No Calf Tenderness, Pedal Edema (improved from yesterd) Neurologic/Psychiatric: Alert, Oriented x3 Skin: Warm/Dry, Erythema (with superficial baseball sized wound to lateral right lower leg) Results Lab Laboratory Tests 10/23/21 10:34: Glucometer 159H 10/23/21 15:48: Glucometer 179H 10/23/21 20:28: Glucometer 165H 10/24/21 04:53: Glucometer 159H 10/24/21 05:17: White Blood Count 6.7, Red Blood Count 3.16L, Hemoglobin 9.4L, Hematocrit 29L, Mean Corpuscular Volume 92, Mean Corpuscular Hemoglobin 30, Mean Corpuscular Hemoglobin Concent 32, Red Cell Distribution Width 16.0H, Platelet Count 161, Mean Platelet Volume 11.1, Sodium Level 129L, Potassium Level 3.4L, Chloride Level 90L, Carbon Dioxide Level 29, Anion Gap 10, Blood Urea Nitrogen 30H, Creatinine 1.39H, Estimat Glomerular Filtration Rate 39, BUN/Creatinine Ratio 22, Glucose Level 181H, Calcium Level 8.4L, Corrected Calcium 9.5, Total Bilirubin 2.0H, Aspartate Amino Transf (AST/SGOT) 72H, Alanine Aminotransferase (ALT/SGPT) 53, Alkaline Phosphatase 60, Total Protein 5.5L, Albumin 2.6L Microbiology 10/21/21 Blood Culture - Preliminary, Resulted Escherichia coli See Comments 10/21/21 Gram Stain, Resulted Pending 10/21/21 Wound Culture - Preliminary, Resulted Coryneform bacteria 10/21/21 Urine Culture - Final, Complete Escherichia coli Assessment/Plan Assessment/Plan Assessment and Plan 1. UTI with Sepsis- 2. Chronic Edema of LEs with Chronic Venous Stasis- 3. Decompensated CHF 4. Chronic Stage 3 Kidney Failure 5. Hyponatremia, Hypokalemia 6. History of Atrial Fibrillation 7. History of CAD and SSS with pacemaker 8. Hypotension- 9. Weakness- SANDY LAIRD MD Oct 24, 2021 08:21
[2021-10-24] MEDS: SENNA W/DOCUSATE (SENOKOT S) TABLET PO SCH ×2 (08:32→19:55)
[2021-10-24] MEDS: LORATADINE (CLARITIN) 10 MG TAB PO SCH (08:32)
[2021-10-24] MEDS: KCL 20 MEQ TAB (K-DUR) PO SCH ×2 (08:32→17:24)
--- NOTE | 2021-10-24 09:45 | Cardiology Progress Note ---
Subjective Date Seen by Provider: Oct 24, 2021 Time Seen by Provider: 09:41 Subjective/Events-last exam Patient was seen at bedside, laying down comfortably Complaining of dyspnea. Events since admission were reviewed Review of Systems General: No Chills, No Night Sweats; Fatigue; No Malaise, No Appetite, No Other HEENT: No Head Aches, No Visual Changes, No Eye Pain, No Ear Pain, No Dysphasia, No Sinus Congestion, No Post Nasal Drip, No Sore Throat, No Other Pulmonary: Dyspnea; No Cough, No Pleuritic Chest Pain, No Other Cardiovascular: Edema; No: Chest Pain, Palpitations, Orthopnea, Paroxysmal Noc. Dyspnea, Lt Headedness, Other Focused Exam Lactate Level 10/21/21 19:25: Lactic Acid Level 2.52*H 10/21/21 21:55: Lactic Acid Level 1.21 Objective-Cardiology Exam Last Set of Vital Signs Vital Signs 10/24/21 08:40 Temp 37.1 Pulse 58 Resp 18 B/P (MAP) 98/43 (61) Pulse Ox 85 O2 Delivery Nasal Cannula O2 Flow Rate 2.00 I&O Intake and Output 10/23/21 23:59 Intake Total 1320 ml Output Total 2900 ml Balance -1580 ml Intake Oral 1320 ml Output Urine Total 2900 ml General: Alert, Oriented X3, Cooperative HEENT: Atraumatic, PERRLA Neck: Supple, No JVD, No Thyromegaly Lungs: Normal Air Movement, Other (Bilateral rhonchi) Heart: Regular Rate, Normal S1, Normal S2, No Murmurs Abdomen: Normal Bowel Sounds, Soft, No Tenderness, No Hepatosplenomegaly, No Masses Extremities: No Clubbing, No Cyanosis, Normal Pulses, No Tenderness/Swelling, Other (+3 edema, erythema on the left leg.) Skin: No Rashes, No Breakdown, Other (Cellulitis on the left leg) Neuro: Normal Speech, Normal Tone, Sensation Intact Psych/Mental Status: Mental Status NL, Mood NL Results Lab Laboratory Tests 10/24/21 05:17 A/P-Cardiology Admission Diagnosis UTI Sepsis Atrial fibrillation Coronary artery disease Assessment/Plan E. coli bacteremia. UTI with sepsis and change in mental status Receiving IV piperacillin. Managed by medical team. Bilateral lower extremities cellulitis, significant peripheral edema, continue on Lasix 40 mg IV twice daily and monitor tolerance and response. Permanent atrial fibrillation, history of pacemaker implant. Continue to monitor. No changes are recommended [id number] score 5, maintained on Xarelto Coronary artery disease, - cardiac catheterization on 04/06/2017 revealing severe stenosis at the mid right coronary artery, underwent stent placement using Xience Alpine 3.0 x 33 mm stent - cardiac catheterization done July 17, 2018 revealed severe multivessel coronary artery disease including mid and distal LAD, first and second obtuse marginal, and dominant RCA - Had CABG 4 on August 19, 2018 using vein graft to the first obtuse marginal, second obtuse marginal and distal right coronary artery in addition to LUGO to LAD, - Cardiac catheterization following an abnormal stress test was done on April 23, 2019 showing patent LUGO to LAD, and patent vein graft to the right PDA and vein graft jump graft to the OM1 and OM 2 with excellent flow distally Ischemic cardiomyopathy - Stress test done December 2020 showing fixed defect involving the whole inferior wall and inferolateral wall, SSS 23, SDS 0, TID 1.16. Hypokinesia of the inferior wall, ejection fraction 42%, I will repeat 2D echocardiogram H/o hypertension - she has intolerance to lisinopril (cough) Hyperlipidemia - intolerant to Lipitor (n/v) but has been able to tolerate simvastatin Diabetes mellitus, followed and managed by primary care physician Degenerative joint disease, history of knee replacement. Mild bilateral carotid stenosis, carotid ultrasound done in July 2020 Mild hyponatremia and hypokalemia, likely due to diuretic therapy MILADIS FISHER MD Oct 24, 2021 09:45
--- NOTE | 2021-10-24 10:06 | Physical Therapy Evaluation ---
PT Evaluation-General Medical Diagnosis Admission Date Oct 21, 2021 at 21:00 Medical Diagnosis: UTI/AMS/cellulitis right LE Onset Date: Oct 21, 2021 Therapy Diagnosis Therapy Diagnosis: debility/weakness Height/Weight Height (Feet): 5 Height (Inches): 5.00 Weight (Pounds): 206 Weight (Ounces): 0.0 Precautions Precautions/Isolations: Fall Prevention, Standard Precautions Referral Physician: Namrata Reason for Referral: Evaluation/Treatment Medical History Pertinent Medical History: Atrial Fib, CABG, CAD, DM, Heart Failure, HTN, Renal Insufficiency Current History ER from [place] secondary to AMS, fever and right LE redness/edema Reviewed History: Yes Social History Home: Care Home Prior Prior Level of Function SCALE: Activities may be completed with or without assistive devices. 4-Akwiodwyrc-kxhpdnr completes the activity by him/herself with no assistance from a helper. 5-Set-up or Clean-up Assistance-helper sets up or cleans up; patient completes activity. [place] assists only prior to or following the activity. 4-Supervision or Touching Assistance-helper provides verbal cues and/or touching/steadying and/or contact guard assistance as patient completes activity. Assistance may be provided throughout the activity or intermittently. 3-Partial/Moderate Assistance-helper does LESS THAN HALF the effort. Russell lifts, holds or supports trunk or limbs, but provides less than half the effort. 2-Substantial/Maximal Assistance-helper does MORE THAN HALF the effort. Russell lifts or holds trunk or limbs and provides more than half the effort. 4-Lvwypbxls-ddtbfh does ALL the effort. Patient does none of the effort to complete the activity. Or, the assistance of 2 or more helpers is required for the patient to complete the activity. If activity was not attempted, code reason: 7-Patient Refused. 9-Not Applicable-not attempted and the patient did not perform the activity before the current illness, exacerbation or injury. 10-Not Attempted due to Environmental Limitations-(lack of equipment, weather restraints, etc.). 88-Not Attempted due to Medical Conditions or Safety Concerns. Bed Mobility: 4 Transfers (B,C,W/C): 4 Gait: 4 Indoor Mobility (Ambulation): Needed Some Help Stairs: Not Applicalbe Prior Devices Use: Walker PT Evaluation-Current Subjective Patient agrees to PT. Pain Numeric Pain Scale: 0-No Pain Location: No Pain Reported Objective Patient Orientation: Normal For Age Attachments: Parham Catheter, IV ROM/Strength ROM Lower Extremities bilateral LE WFL Strength Lower Extremities 3/5 grossly bilateral LE Integumentary/Posture Integumentary refer to nursing notes Bladder Incontinence: Parham Cath Posture WFL Neuromuscular (Tone, Coordination, Reflexes) grossly intact Sensory Vision: Functional Hearing: Functional Sensation Right Lower Extremit: Impaired Sensation Left Lower Extremity: Impaired Transfers Sit to Lying (QC): 3 Lying to Sitting/Side of Bed(Q: 4 Sit to Stand (QC): 4 Gait Does the Patient Walk?: Yes Mode of Locomotion: Both Anticipated Mode of Locomotion: Both Walk 10 feet (QC): 4 Walk 50 ft with 2 Turns(QC): 4 Walk 150 ft (QC): 4 Distance: 150' Gait Assistive Device: FWW Comments/Gait Description slow, steady gait sequence Balance Sitting Static: Normal Sitting Dynamic: Normal Standing Static: Good Standing Dynamic: Good Assessment/Needs Requires encouragement to participate with therapy. Patient is SBA to [facility] for mobility. Ambulates FWW 150' CGA to SBA. Rehab Potential: Fair PT Insurance Specialist Goals Assisted Goals PT Insurance Specialist Goals Time Frame: Nov 05, 2021 Roll Left & Right (QC): 4 Sit to Lying (QC): 4 Lying-Sitting on Side/Bed(QC): 4 Sit to Stand (QC): 4 Chair/Wdi-nx-Fnloz Xfer(QC): 4 Toilet Transfer (QC): 4 Walk 10 feet (QC): 4 Walk 50ft with 2 Turns (QC): 4 Walk 150 ft (QC): 4 PT Plan Problem List Problem List: Activity Tolerance, Functional Strength, Safety, Balance, Gait, Transfer, Bed Mobility Treatment/Plan Treatment Plan: Continue Plan of Care Treatment Plan: Bed Mobility, Education, Functional Activity Justin, Functional Strength, Gait, Safety, Therapeutic Exercise, Transfers Treatment Duration: Nov 05, 2021 Frequency: 6 times per week Estimated Hrs Per Day: .25 hour per day Patient and/or Family Agrees t: Yes Time/GCodes Time In: 858 Time Out: 910 Total Billed Treatment Time: 12 Total Billed Treatment 1 visit EVMod 12 min BUD SNIDER PT Oct 24, 2021 10:06
--- NOTE | 2021-10-24 10:44 | Occupational Therapy Eval ---
OT Evaluation-General/PLF Medical Diagnosis Admission Date Oct 21, 2021 at 21:00 Medical Diagnosis: UTI/AMS/cellulitis right LE Onset Date: Oct 21, 2021 Therapy Diagnosis Therapy Diagnosis: decreased ADL status Height/Weight Height (Feet): 5 Height (Inches): 5.00 Weight (Pounds): 206 Weight (Ounces): 0.0 Precautions Precautions/Isolations: Fall Prevention, Standard Precautions Referral Physician: Namrata Referral Reason: Evaluation/Treatment Medical History Pertinent Medical History: Atrial Fib, CABG, CAD, DM, Heart Failure, HTN, Renal Insufficiency Additional Medical History CABG, CAD, HTN, arthritis, DM, anxiety/depression, pacemaker Current History Pt recently stayed at [facility], discharged home x1 day. Pt began having weakness/confusion, so brought back to [place] the next morning. Pt noted to have drainage from R LE so she was brought to ED. Pt found to have UTI with sepsis, decompensated heart failure with electrolyte abnormalities Social History Home: Detention ADL-Prior Level of Function SCALE: Activities may be completed with or without assistive devices. 9-Vchfbyqtxe-xutnigp completes the activity by him/herself with no assistance from a helper. 5-Set-up or Clean-up Assistance-helper sets up or cleans up; patient completes activity. [place] assists only prior to or following the activity. 4-Supervision or Touching Assistance-helper provides verbal cues and/or touching/steadying and/or contact guard assistance as patient completes activity. Assistance may be provided throughout the activity or intermittently. 3-Partial/Moderate Assistance-helper does LESS THAN HALF the effort. [place] lifts, holds or supports trunk or limbs, but provides less than half the effort. 2-Substantial/Maximal Assistance-helper does MORE THAN HALF the effort. [place] lifts or holds trunk or limbs and provides more than half the effort. 6-Chumgexxc-uthaym does ALL the effort. Patient does none of the effort to complete the activity. Or, the assistance of 2 or more helpers is required for the patient to complete the activity. If activity was not attempted, code reason: 7-Patient Refused. 9-Not Applicable-not attempted and the patient did not perform the activity before the current illness, exacerbation or injury. 10-Not Attempted due to Environmental Limitations-(lack of equipment, weather restraints, etc.). 88-Not Attempted due to Medical Conditions or Safety Concerns. ADL PLOF Comments Pt reports when she left [facility], she was able to dress, bathe, toileting, and ambulate by herself using FWW. Upon further discussion pt required assistance with footwear. Pt plans to return to [facility] upon discharge, with the goal to eventually return home with HH. Self Care: Needed Some Help Functional Cognition: Needed Some Help DME/Equipment Comments FWW OT Current Status Subjective Pt in bed, agreeable to OT Tx. Pt adamantly declined all OOB/EOB activities this date, stating she has gotten in/out of bed multiple times today already. Mental Status/Objective Patient Orientation: Person, Place, Time, Situation, Normal For Age Attachments: Parham Catheter, Oxygen, Telemetry Current Dentures/Partials: Yes Hand Dominance: Right Upper Extremity ROM WFL, BUE shoulder flexion to approx 150 degrees Upper Extremity Coordination WFL Upper Extremity Strength grossly 3+/5 ADL-Treatment Eating (QC): 5 (set up with placing straw in drink) On/Off Footwear (QC): 1 (Per clincial judgment.) Toileting Hygiene (QC): 1 (catheter) Other Treatments Pt laying in bed, pt provided information about PLOF and reason for hospitalization. Pt adamantly declined all OOB/EOB activities on this date, states she has gotten in/out of bed multiple times throughout the morning already and she doesn't want to get up again. Pt declined ADLs, stating her d entures are still at [facility], and she doesn't wish to complete other ADLs at this time. Pt agreeable to BUE exercises in order to increase strength and activity tolerance. Pt completed x10 reps each of the following BUE exercises: shoulder flexion, elbow flexion/extension, front punch. OT instructed pt to complete throughout the day, increasing reps as tolerated. Per PT evaluation, pt required QC 3 sit to supine, QC 4 supine to sit EOB, QC 4 for sit to stand. Pt ambulated 150' using FWW, CGA-SBA with mobility. Post tx, pt in bed, call light in reach and all needs met. Education OT Patient Education: Correct positioning, Energy conservation, Exercise program, Modified ADL techniques, Progress toward Goal/Update tx plan, Purpose o f tx/functional activities, Rehab process Teaching Recipient: Patient Teaching Methods: Discussion Response to Teaching: Verbalize Understanding, Reinforcement Needed OT Chocolate Production Machine Operator Goals Correction Goals Time Frame: Nov 04, 2021 Eating (QC): 6 Oral Hygiene (QC): 6 Toileting Hygiene (QC): 4 Shower/Bathe Self (QC): 4 Upper Body Dressing (QC): 5 Lower Body Dressing (QC): 4 On/Off Footwear (QC): 3 Additional Goals: 1-Demonstrate ADL Tasks, 2-Verbalize Understanding, 3-ImproveStrength/Justin 1=Demonstrate adherence to instructed precautions during ADL tasks. 2=Patient will verbalize/demonstrate understanding of assistive devices/modifications for ADL. 3=Patient will improve strength/tolerance for activity to enable patient to perform ADL's. OT Education/Plan Problem List/Assessment Assessment: Decreased Activ Tolerance, Decreased UE Strength, Impaired Funct Balance, Impaired I ADL's, Impaired Self-Care Skills Discharge Recommendations Plan/Recommendations: Continue POC Treatment Plan/Plan of Care Patient would benefit from OT for education, treatment and training to promote independence in ADL's, mobility, safety and/or upper extremity function for ADL's. Plan of Care: ADL Retraining, Functional Mobility, UE Funct Exercise/Act Treatment Duration: Nov 04, 2021 Frequency: 3 times per week (3-5 times per week) Estimated Hrs Per Day: .25 hour per day Agreement: Yes Rehab Potential: Fair Time/GCodes Start Time: 10:08 Stop Time: 10:26 Total Time Billed (hr/min): 18 Billed Treatment Time 1, RENETTA KRISHNA OT Oct 24, 2021 10:44
[2021-10-24] MEDS ORDERED: cefTRIAXone 1 GM/50 ML (PRE-MIX) IV SCH (12:00)
[2021-10-24] MEDS ORDERED: HYPOCHLOROUS ACID/NaCl (VASHE) 250 ML IR PRN (13:15)
[2021-10-24] MEDS ORDERED: RIVAROXABAN 15 MG TABLET (XARELTO) PO SCH (17:00)
[2021-10-25 03:06] VITALS: BP 114/71
[2021-10-25 05:32] LABS: HEMATOCRIT 28 % (35-52); HEMOGLOBIN 9.2 g/dL (11.5-16.0); MEAN CORPUSCULAR HEMOGLOBIN 30 pg (25-34); MEAN CORPUSCULAR HGB CONC 32 g/dL (32-36); MEAN CORPUSCULAR VOLUME 92 fL (80-99); PLATELET COUNT 178 10^3/uL (130-400); WHITE BLOOD COUNT 5.5 10^3/uL (4.3-11.0)
[2021-10-25] MEDS: CATHETER FLUSH 10 ML SYR IVP SCH (05:46)
[2021-10-25] MEDS: inSUlin ASPART (NovoLOG) 1 UNIT/0.01 ML (CHARGE PER UNIT) SC SCH ×2 (05:46→11:12)
[2021-10-25] MEDS: FUROSEMIDE 40 MG/4 ML INJ (LASIX) IV SCH (05:47)
[2021-10-25 05:56] LABS: ALBUMIN 2.4 GM/DL (3.2-4.5); BILIRUBIN,TOTAL 1.6 MG/DL (0.1-1.0); CALCIUM 8.3 MG/DL (8.5-10.1); CREATININE SERUM 1.15 MG/DL (0.60-1.30); POTASSIUM 3.7 MMOL/L (3.6-5.0)
[2021-10-25] MEDS: KCL 20 MEQ TAB (K-DUR) PO SCH (08:30)
[2021-10-25] MEDS: LORATADINE (CLARITIN) 10 MG TAB PO SCH (08:30)
[2021-10-25] MEDS: SENNA W/DOCUSATE (SENOKOT S) TABLET PO SCH (08:30)
--- NOTE | 2021-10-25 08:36 | Cardiology Progress Note ---
Subjective Date Seen by Provider: Oct 25, 2021 Time Seen by Provider: 08:33 Subjective/Events-last exam Patient was seen at bedside, sitting comfortably, breathing better today. Review of Systems General: No Chills, No Night Sweats; Fatigue, Malaise; No Appetite, No Other HEENT: No Head Aches, No Visual Changes, No Eye Pain, No Ear Pain, No Dysphasia, No Sinus Congestion, No Post Nasal Drip, No Sore Throat, No Other Pulmonary: No Dyspnea, No Cough, No Pleuritic Chest Pain, No Other Cardiovascular: Edema; No: Chest Pain, Palpitations, Orthopnea, Paroxysmal Noc. Dyspnea, Lt Headedness, Other Objective-Cardiology Exam Last Set of Vital Signs Vital Signs 10/25/21 10/25/21 03:06 07:00 Temp 36.6 Pulse 68 Resp 18 B/P (MAP) 114/71 (85) Pulse Ox 97 O2 Delivery Nasal Cannula O2 Flow Rate 2.00 I&O Intake and Output 10/25/21 00:00 Intake Total 1530 ml Output Total 2175 ml Balance -645 ml Intake Oral 1530 ml Output Urine Total 2175 ml # Bowel Movements 1 General: Alert, Oriented X3, Cooperative HEENT: Atraumatic, PERRLA Neck: Supple, No JVD, No Thyromegaly Lungs: Normal Air Movement, Other (Bilateral rhonchi) Heart: Regular Rate, Normal S1, Normal S2, No Murmurs Abdomen: Normal Bowel Sounds, Soft, No Tenderness, No Hepatosplenomegaly, No Masses Extremities: No Clubbing, No Cyanosis, Normal Pulses, No Tenderness/Swelling, Other (+3 edema, erythema on the left leg.) Skin: No Rashes, No Breakdown, Other (Cellulitis on the left leg) Neuro: Normal Speech, Normal Tone, Sensation Intact Psych/Mental Status: Mental Status NL, Mood NL Results Lab Laboratory Tests 10/25/21 05:00 A/P-Cardiology Admission Diagnosis UTI Sepsis Atrial fibrillation Coronary artery disease Assessment/Plan E. coli bacteremia. UTI with sepsis and change in mental status Receiving IV piperacillin. Managed by medical team. Bilateral lower extremities cellulitis, significant peripheral edema, continue on Lasix 40 mg IV twice daily and monitor tolerance and response. Permanent atrial fibrillation, history of pacemaker implant. Continue to monitor. No changes are recommended [id number] score 5, maintained on Xarelto Coronary artery disease, - cardiac catheterization on 04/06/2017 revealing severe stenosis at the mid right coronary artery, underwent stent placement using Xience Alpine 3.0 x 33 mm stent - cardiac catheterization done July 17, 2018 revealed severe multivessel CAD including mid and distal LAD, first and second obtuse marginal, and dominant RCA - Had CABG 4 on August 19, 2018 using vein graft to the first obtuse marginal, second obtuse marginal and distal right coronary artery in addition to LUGO to LAD, - Cardiac catheterization following an abnormal stress test was done on April 23, 2019 showing patent LUGO to LAD, and patent vein graft to the right PDA and vein graft jump graft to the OM1 and OM 2 with excellent flow distally Ischemic cardiomyopathy - Stress test done December 2020 showing fixed defect involving the whole inferior wall and inferolateral wall, SSS 23, SDS 0, TID 1.16. Hypokinesia of the inferior wall, ejection fraction 42% 2D echocardiogram was done on October 24, 2021 showing systolic function is in the lower normal limit with ejection fraction 50 to 55%, advanced/grade 3 diastolic dysfunction with biatrial enlargement, pulmonary artery pressure 40 to 45 mmHg, calcified mitral valve with mild mitral regurgitation, moderate tricuspid regurgitation. H/o hypertension She has intolerance to lisinopril (cough) Continue to monitor blood pressure Hyperlipidemia Intolerant to Lipitor (n/v) but has been able to tolerate simvastatin Diabetes mellitus, followed and managed by primary care physician Degenerative joint disease, history of knee replacement. Mild bilateral carotid stenosis, carotid ultrasound done in July 2020 Mild hyponatremia and hypokalemia, likely due to diuretic therapy MILADIS FISHER MD Oct 25, 2021 08:36
[2021-10-25 08:50] VITALS: BP 160/67
[2021-10-25] MEDS ORDERED: LORA10TA7 PO (09:05)
[2021-10-25] MEDS ORDERED: FURO-124 PO (09:05)
[2021-10-25] MEDS ORDERED: RIVA15TA2 PO (09:05)
[2021-10-25] MEDS ORDERED: LACT1CAP57 PO (09:05)
[2021-10-25] MEDS ORDERED: SENN1TAB76 PO (09:05)
[2021-10-25] MEDS ORDERED: POTA-169 PO (09:05)
[2021-10-25] MEDS ORDERED: METO-351 PO (09:05)
[2021-10-25] MEDS ORDERED: ACHYD1T PO (09:05)
[2021-10-25] MEDS ORDERED: CEFI200T PO (09:05)
--- NOTE | 2021-10-25 09:09 | Discharge Inst-Skilled Nursing ---
Discharge Inst-Skilled NF Reconcile Patient Problems Problems Reviewed?: Yes Patient Instructions Patient Problems: 1. UTI with Sepsis- 2. Chronic Edema of LEs with Chronic Venous Stasis- 3. Decompensated CHF 4. Chronic Stage 3 Kidney Failure 5. Hyponatremia, Hypokalemia 6. History of Atrial Fibrillation 7. History of CAD and SSS with pacemaker 8. Hypotension- 9. Weakness- Goal: increased strength with plans for eventual dc to home Consult/Follow Up/Orders Follow Up Appt.: 1 wk evelin clinic [address] layton Skilled NF Admit to: Via [facility] Certification ([facility]) I certify that [facility] services are required to be given on an inpatient basis because of the above named patient's need for custodial care on a continuing basis for the conditions(s) for which he/she was receiving inpatient hospital services prior to his/her transfer to the [facility]. [facility] Facility Order: Nursing Services, Boring Machine Operator Production-Evaluate & Treat, Physical Therapy-Evaluate & Treat, Wound Care-Eval/Treat Oxygen Delivery Method: Nasal Cannula Oxygen Flow Rate L/min (Range): 3 lite Discharge Diet: ADA Diet Daily Activity as Tolerated: Yes Resuscitation Status: Full Code New & Resume Previous Orders New & Resume Previous Orders monitor bp three times daily with heart rate, report to dr. waters's office weekly and prn for sbp greater than 170 or less than 90 daily weights, call if greater than 3# weight gain in 24 hours keep legs elevated above heart when seated and when in bed Sandy Waters Oct 25, 2021 09:05 SANDY WATERS MD Oct 25, 2021 09:09
--- NOTE | 2021-10-25 09:12 | Discharge Summary ---
Diagnosis/Chief Complaint Date of Admission Oct 21, 2021 at 21:00 Date of Discharge Discharge Date: Oct 25, 2021 Discharge Time: 1100 Discharge Summary Discharge Physical Examination Allergies: Coded Allergies: Sulfa (Sulfonamide Antibiotics) (Verified Allergy, Intermediate, 06/18/19) since childhood tetanus and diphtheria toxoids (Verified Allergy, Unknown, RASH, 09/08/21) Uncoded Allergies: TAPE (Adverse Reaction, Unknown, 04/05/17) Vitals & I&Os Vital Signs Date Time Temp Pulse Resp B/P (MAP) Pulse Ox O2 Delivery O2 Flow Rate FiO2 10/25/21 08:50 36.7 67 20 160/67 (98) 96 Nasal Cannula 2.00 Hospital Course Pending Labs Laboratory Tests 10/25/21 05:00: White Blood Count 5.5, Red Blood Count 3.10, Hemoglobin 9.2, Hematocrit 28, Mean Corpuscular Volume 92, Mean Corpuscular Hemoglobin 30, Mean Corpuscular Hemoglobin Concent 32, Red Cell Distribution Width 16.0, Platelet Count 178, Mean Platelet Volume 11.0, Sodium Level 136, Potassium Level 3.7, Chloride Level 92, Carbon Dioxide Level 33, Anion Gap 11, Blood Urea Nitrogen 28, Creatinine 1.15, Estimat Glomerular Filtration Rate 49, BUN/Creatinine Ratio 24, Glucose Level 130, Calcium Level 8.3, Corrected Calcium 9.6, Total Bilirubin 1.6, Aspartate Amino Transf (AST/SGOT) 49, Alanine Aminotransferase (ALT/SGPT) 41, Alkaline Phosphatase 60, Total Protein 5.0, Albumin 2.4 10/25/21 05:45: Glucometer 121 Discharge Instructions to patient/family Please see electronic discharge instructions given to patient. Discharge Medications Reviewed and agree with Discharge Medication list on patient's Discharge Instr uction sheet SANDY LAIRD MD Oct 25, 2021 09:12
[2021-10-25] MEDS ORDERED: cefTRIAXone 1 GM PRE-MIX 50 ML IV NR (09:16)
--- NOTE | 2021-10-25 10:29 | Occupational Ther Daily Note ---
OT Current Status-Daily Note Subjective Pt up in recliner, states she is planning on returning to [facility] today. Pt agreeable to OT Tx. ADL-Treatment Therapy Code Descriptions/Definitions Functional [place] Measure: 0=Not Assessed/NA 4=Minimal Assistance 1=Total Assistance 5=Supervision or Setup 2=Maximal Assistance 6=Modified [place] 3=Moderate Assistance 7=Complete IndependenceSCALE: Activities may be completed with or without assistive devices. 2-Dvsgraezew-silvsdc completes the activity by him/herself with no assistance from a helper. 5-Set-up or Clean-up Assistance-helper sets up or cleans up; patient completes activity. [place] assists only prior to or following the activity. 4-Supervision or Touching Assistance-helper provides verbal cues and/or touching/steadying and/or contact guard assistance as patient completes activity. Assistance may be provided throughout the activity or intermittently. 3-Partial/Moderate Assistance-helper does LESS THAN HALF the effort. [place] lifts, holds or supports trunk or limbs, but provides less than half the effort. 2-Substantial/Maximal Assistance-helper does MORE THAN HALF the effort. [place] lifts or holds trunk or limbs and provides more than half the effort. 4-Lqukevcju-hjymda does ALL the effort. Patient does none of the effort to complete the activity. Or, the assistance of 2 or more helpers is required for the patient to complete the activity. If activity was not attempted, code reason: 7-Patient Refused. 9-Not Applicable-not attempted and the patient did not perform the activity before the current illness, exacerbation or injury. 10-Not Attempted due to Environmental Limitations-(lack of equipment, weather restraints, etc.). 88-Not Attempted due to Medical Conditions or Safety Concerns. Other Treatment Pt seated in recliner, in order to increase BUE Strength and activity tolerance, pt completed x10 reps each of the following BUE exercises: shoulder flexion, elbow flexion/extension and front punch. Pt able to recall 2/3 exercises from previous session. Post tx, pt in recliner, call light in reach and all need met. Education OT Patient Education: Correct positioning, Energy conservation, Exercise program, Modified ADL techniques, Progress toward Goal/Update tx plan, Purpose of tx/functional activities, Rehab process Teaching Recipient: Patient Teaching Methods: Discussion Response to Teaching: Verbalize Understanding OT Shelter Goals Scientific Informatics Leader Goals Time Frame: Nov 04, 2021 Eating (QC): 6 Oral Hygiene (QC): 6 Toileting Hygiene (QC): 4 Shower/Bathe Self (QC): 4 Upper Body Dressing (QC): 5 Lower Body Dressing (QC): 4 On/Off Footwear (QC): 3 Additional Goals: 1-Demonstrate ADL Tasks, 2-Verbalize Understanding, 3- ImproveStrength/Justin 1=Demonstrate adherence to instructed precautions during ADL tasks. 2=Patient will verbalize/demonstrate understanding of assistive devices/modifications for ADL. 3=Patient will improve strength/tolerance for activity to enable patient to perform ADL's. OT Education/Plan Problem List/Assessment Assessment: Decreased Activ Tolerance, Decreased UE Strength, Impaired Funct Balance, Impaired I ADL's, Impaired Self-Care Skills Discharge Recommendations Plan/Recommendations: Continue POC Treatment Plan/Plan of Care Patient would benefit from OT for education, treatment and training to promote independence in ADL's, mobility, safety and/or upper extremity function for ADL's. Plan of Care: ADL Retraining, Functional Mobility, UE Funct Exercise/Act Treatment Duration: Nov 04, 2021 Frequency: 3 times per week (3-5 times per week) Estimated Hrs Per Day: .25 hour per day Agreement: Yes Rehab Potential: Fair Time/GCodes Start Time: 09:48 Stop Time: 09:48 Total Time Billed (hr/min): 10 Billed Treatment Time 1, EX RENETTA PICKARD OT Oct 25, 2021 10:29
[2021-10-25 10:37] VITALS: BP 160/67
[2021-10-25 12:38] VITALS: BP 135/72
== END 2021-10-25 13:10 | DRG 871 ==
LOC: EDUNIT# 19:11 → ER 19:12 → ICU 21:00 → 4TH 10-22 14:40
PROVIDERS: ADMIT Family Medicine; ATTEND Family Medicine
PROC: 8E0ZXY6 Isolation (ICD-10-PCS; principal; 2021-10-21)
DX: A41.51 Sepsis due to Escherichia coli [E. coli] (principal); I50.31 Acute diastolic (congestive) heart failure; N39.0 Urinary tract infection, site not specified; L03.116 Cellulitis of left lower limb; L03.115 Cellulitis of right lower limb; I13.0 Hypertensive heart and chronic kidney disease with heart failure and stage 1 through stage 4 chronic kidney disease, or unspecified chronic kidney disease; I48.21 Permanent atrial fibrillation; E87.1 Hypo-osmolality and hyponatremia; Z68.41 Body mass index [BMI] 40.0-44.9, adult; Z20.822 Contact with and (suspected) exposure to COVID-19; I95.9 Hypotension, unspecified; I25.5 Ischemic cardiomyopathy; I87.2 Venous insufficiency (chronic) (peripheral); E11.22 Type 2 diabetes mellitus with diabetic chronic kidney disease; N18.30 Chronic kidney disease, stage 3 unspecified; E78.5 Hyperlipidemia, unspecified; E78.00 Pure hypercholesterolemia, unspecified; E03.9 Hypothyroidism, unspecified; I49.5 Sick sinus syndrome; I08.1 Rheumatic disorders of both mitral and tricuspid valves; I25.10 Atherosclerotic heart disease of native coronary artery without angina pectoris; E87.6 Hypokalemia; I65.23 Occlusion and stenosis of bilateral carotid arteries; E66.9 Obesity, unspecified; M19.91 Primary osteoarthritis, unspecified site; R53.1 Weakness; F41.9 Anxiety disorder, unspecified; F32.A Depression, unspecified; Z79.4 Long term (current) use of insulin; Z79.01 Long term (current) use of anticoagulants; Z95.5 Presence of coronary angioplasty implant and graft; Z95.1 Presence of aortocoronary bypass graft; Z95.0 Presence of cardiac pacemaker; Z79.82 Long term (current) use of aspirin; Z88.2 Allergy status to sulfonamides; Z83.3 Family history of diabetes mellitus; Z82.49 Family history of ischemic heart disease and other diseases of the circulatory system
CPT/HCPCS: 36415; 70450; 71045; 72125; 72170; 76705; 80048; 80053; 80306; 80320; 80329; 81000; 82010; 82140; 82150; 82550; 82553; 82805; 82947; 83036; 83605; 83615; 83690; 83735; 83874; 83880; 84145; 84439; 84443; 84484; 85007; 85025; 85027; 85379; 85610; 85652; 85730; 86141; 87040; 87070; 87077; 87088; 87186; 87205; 87636; 93005; 93041; 93306

== ENCOUNTER → 2021-10-27 | Outpatient (CLI) | payer MEDICARE, OTHER ==
[~2021-10-27] MED LIST changes: +ACHYD1T PO; +CEFI200T PO; +FURO-124 PO; +HYDR-3820 PO; +LACT1CAP57 PO; +LORA10TA7 PO; +METO2.5T; +RIVA15TA2 PO; +SENN1TAB76 PO
== END ==
LOC: WOUNDCARE 09:13
PROVIDERS: ATTEND Family Medicine
DX: E11.622 Type 2 diabetes mellitus with other skin ulcer (principal); L97.212 Non-pressure chronic ulcer of right calf with fat layer exposed; L97.221 Non-pressure chronic ulcer of left calf limited to breakdown of skin; I89.0 Lymphedema, not elsewhere classified; E44.0 Moderate protein-calorie malnutrition; I87.333 Chronic venous hypertension (idiopathic) with ulcer and inflammation of bilateral lower extremity; M62.81 Muscle weakness (generalized)
CPT/HCPCS: A6197; G0463; 99214

== ENCOUNTER → 2021-11-04 | Outpatient (CLI) | payer MEDICARE, OTHER | LOC: WOUNDCARE 11:00 | PROVIDERS: ATTEND Orthopaedic Surgery Hand Surgery | DX: L97.212 Non-pressure chronic ulcer of right calf with fat layer exposed (principal); I89.0 Lymphedema, not elsewhere classified; E44.0 Moderate protein-calorie malnutrition; E11.622 Type 2 diabetes mellitus with other skin ulcer; I87.333 Chronic venous hypertension (idiopathic) with ulcer and inflammation of bilateral lower extremity; M62.81 Muscle weakness (generalized); E11.52 Type 2 diabetes mellitus with diabetic peripheral angiopathy with gangrene | CPT/HCPCS: 11042; A6253; G0463 ==

== ENCOUNTER → 2021-11-10 | Outpatient (CLI) | payer MEDICARE, OTHER | LOC: WOUNDCARE 14:28 | PROVIDERS: ATTEND Family Medicine | DX: E11.622 Type 2 diabetes mellitus with other skin ulcer (principal); L97.212 Non-pressure chronic ulcer of right calf with fat layer exposed; I89.0 Lymphedema, not elsewhere classified; E44.1 Mild protein-calorie malnutrition; I87.333 Chronic venous hypertension (idiopathic) with ulcer and inflammation of bilateral lower extremity; I96 Gangrene, not elsewhere classified | CPT/HCPCS: 11042; G0463 ==

== ENCOUNTER → 2021-11-17 | Outpatient (CLI) | payer MEDICARE, OTHER | LOC: WOUNDCARE 12:51 | PROVIDERS: ATTEND Family Medicine | DX: E11.622 Type 2 diabetes mellitus with other skin ulcer (principal); L97.212 Non-pressure chronic ulcer of right calf with fat layer exposed; I89.0 Lymphedema, not elsewhere classified; E44.0 Moderate protein-calorie malnutrition; E11.52 Type 2 diabetes mellitus with diabetic peripheral angiopathy with gangrene; I87.333 Chronic venous hypertension (idiopathic) with ulcer and inflammation of bilateral lower extremity; M62.81 Muscle weakness (generalized); L03.115 Cellulitis of right lower limb | CPT/HCPCS: 11042; G0463 ==

== ENCOUNTER → 2021-11-24 | Outpatient (CLI) | payer MEDICARE, OTHER | LOC: WOUNDCARE 12:42 | PROVIDERS: ATTEND Family Medicine | DX: E11.622 Type 2 diabetes mellitus with other skin ulcer (principal); L97.212 Non-pressure chronic ulcer of right calf with fat layer exposed; I89.0 Lymphedema, not elsewhere classified; E44.0 Moderate protein-calorie malnutrition; I87.333 Chronic venous hypertension (idiopathic) with ulcer and inflammation of bilateral lower extremity; E11.52 Type 2 diabetes mellitus with diabetic peripheral angiopathy with gangrene | CPT/HCPCS: 11042; G0463 ==

== ENCOUNTER → 2021-12-01 | Outpatient (CLI) | payer MEDICARE, OTHER | LOC: WOUNDCARE 12:44 | PROVIDERS: ATTEND Family Medicine | DX: L97.212 Non-pressure chronic ulcer of right calf with fat layer exposed (principal); I89.0 Lymphedema, not elsewhere classified; E44.0 Moderate protein-calorie malnutrition; E11.622 Type 2 diabetes mellitus with other skin ulcer; I87.333 Chronic venous hypertension (idiopathic) with ulcer and inflammation of bilateral lower extremity; M62.81 Muscle weakness (generalized); E11.52 Type 2 diabetes mellitus with diabetic peripheral angiopathy with gangrene | CPT/HCPCS: 11042; A6207; A6253; G0463 ==

== ENCOUNTER → 2021-12-08 | Outpatient (CLI) | payer MEDICARE, OTHER | LOC: WOUNDCARE 12:45 | PROVIDERS: ATTEND Family Medicine | DX: I96 Gangrene, not elsewhere classified (principal); L97.212 Non-pressure chronic ulcer of right calf with fat layer exposed; I89.0 Lymphedema, not elsewhere classified; E44.0 Moderate protein-calorie malnutrition; E11.622 Type 2 diabetes mellitus with other skin ulcer; E11.52 Type 2 diabetes mellitus with diabetic peripheral angiopathy with gangrene; I87.333 Chronic venous hypertension (idiopathic) with ulcer and inflammation of bilateral lower extremity | CPT/HCPCS: 11042; A6212; G0463 ==

== ENCOUNTER → 2021-12-15 | Outpatient (CLI) | payer MEDICARE, OTHER | LOC: WOUNDCARE 12:33 | PROVIDERS: ATTEND Family Medicine | DX: E11.622 Type 2 diabetes mellitus with other skin ulcer (principal); L97.212 Non-pressure chronic ulcer of right calf with fat layer exposed; I89.0 Lymphedema, not elsewhere classified; E44.0 Moderate protein-calorie malnutrition; I87.333 Chronic venous hypertension (idiopathic) with ulcer and inflammation of bilateral lower extremity; M62.81 Muscle weakness (generalized); E11.52 Type 2 diabetes mellitus with diabetic peripheral angiopathy with gangrene; I96 Gangrene, not elsewhere classified | CPT/HCPCS: 11042; A6207; A6212; G0463 ==

== ENCOUNTER → 2021-12-22 | Outpatient (CLI) | payer MEDICARE, OTHER | LOC: WOUNDCARE 12:33 | PROVIDERS: ATTEND Family Medicine | DX: E11.622 Type 2 diabetes mellitus with other skin ulcer (principal); L97.212 Non-pressure chronic ulcer of right calf with fat layer exposed; I89.0 Lymphedema, not elsewhere classified; E44.0 Moderate protein-calorie malnutrition; I87.333 Chronic venous hypertension (idiopathic) with ulcer and inflammation of bilateral lower extremity; M62.81 Muscle weakness (generalized); Z79.4 Long term (current) use of insulin | CPT/HCPCS: 11042; A6207; A6212; G0463 ==

== ENCOUNTER → 2022-01-24 | Outpatient (CLI) | payer MEDICARE, OTHER | END | disposition home or self-care (01) | LOC: PREOP 07:53 | PROVIDERS: ATTEND Specialist | DX: Z01.818 Encounter for other preprocedural examination (principal) ==

== ENCOUNTER 2022-02-03 08:56 | Day surgery (SDC) | payer MEDICARE, OTHER ==
[~2022-02-03] VITALS: Ht 165.1 cm; Wt 104.0 kg
[~2022-02-03 08:56] MED LIST changes: +BETA15CR14 TP; +CHOL10004 PO; +FURO-125 PO; +INSU300I SQ; +LOSA100T57 PO; +RIVA20TA PO
[2022-02-03] MEDS ORDERED: POVIDONE (BETADINE) OPHTH SOLN 5% 30 ML OP ONE (09:15)
[2022-02-03] MEDS ORDERED: LIDOCAINE PF 1% 2 ML VIAL IR PRN (09:15)
[2022-02-03] MEDS ORDERED: MOXIFLOXACIN OPHTH SOLN 5 MG/ML 0.3 ML SYRINGE OP ONE (09:15)
[2022-02-03] MEDS ORDERED: TIMOLOL MALEATE 0.5% 5 ML (TIMOPTIC) BTL OU PRN (09:15)
[2022-02-03] MEDS: TETRACAINE 0.5% OPHTH SOLN 4 ML BTL (SINGLE DOSE ONLY) OU PRN ×4 (09:18→09:34)
[2022-02-03] MEDS ORDERED: MIDAZOLAM 2 MG/2 ML (VERSED) VIAL ONE (09:21)
[2022-02-03] MEDS: PHENYLEPHRINE 10% OPHTH (NEO-SYN) 5 ML BTL OU SCH ×3 (09:24→09:35)
[2022-02-03] MEDS: TROPICAMIDE 1% OPH SOLN (MYDRIACYL) 15 ML BTL OP SCH ×3 (09:24→09:35)
[2022-02-03 09:30] VITALS: BP 134/71
--- NOTE | 2022-02-03 09:33 | Ophthalmologist Pre-Op Note ---
Pre-Operative Progress Note H&P Reviewed The H&P was reviewed, patient examined and no changes noted. Date H&P Reviewed: Feb 03, 2022 Time H&P Reviewed: 09:33 Pre-Op Dx Cataract, Right Eye SHIELA CHAPARRO MD Feb 03, 2022 09:33
--- NOTE | 2022-02-03 09:56 | Ophthalmology Operative Report ---
Cataract removal/placement IOL PREOPERATIVE DIAGNOSIS: Cataract Right Eye POSTOPERATIVE DIAGNOSIS: Cataract Right Eye PROCEDURE: Cataract removal and placement of posterior chamber implant, right eye SURGEON: Brent Chaparro ANESTHESIA: Topical with sedation COMPLICATIONS: None ESTIMATED BLOOD LOSS: Minimal DESCRIPTION OF PROCEDURE: After proper informed consent was obtained, the patient, a 76 female, was taken to the Operating Room and the right eye was anesthetized with tetracaine. The right eye was then prepped and draped in the usual manner. A wire lid speculum was placed. A paracentesis was made at the left hand position. Preservative free lidocaine was injected into the anterior chamber followed by viscoelastic. A clear corneal incision was made in the temporal position. A capsulorrhexis was preformed and the central nuclear and cortical material were removed. The posterior capsule was polished and Didier AU00T0 21.5 IOL was placed into the capsular bag. The residual viscoelastic was aspirated and balanced saline solution was injected into the anterior chamber. Moxifloxacin was injected into the anterior chamber. The wound was checked and found to be water tight. The patient tolerated the procedure well without complications. BRENT CHAPARRO MD Feb 03, 2022 09:56
[2022-02-03 10:07] VITALS: BP 138/69
--- NOTE | 2022-02-03 13:44 | Anesthesia-General Post-Op ---
MAC Patient Condition Mental Status/LOC: Same as Preop Cardiovascular: Satisfactory Nausea/Vomiting: Absent Respiratory: Satisfactory Pain: Controlled Complications: Absent Post Op Complications Complications None Follow Up Care/Instructions Patient Instructions None needed. Anesthesiology Discharge Order Discharge Order Patient is doing well, no complaints, stable vital signs, no apparent adverse anesthesia problems. No complications reported per nursing. MARIYA MAHMOOD CRNA Feb 03, 2022 13:44
== END 2022-02-03 10:08 | disposition home or self-care (01) ==
LOC: SDC 08:56
PROVIDERS: ATTEND Specialist
DX: E11.36 Type 2 diabetes mellitus with diabetic cataract (principal); H25.9 Unspecified age-related cataract; Z95.5 Presence of coronary angioplasty implant and graft; Z95.1 Presence of aortocoronary bypass graft; Z79.82 Long term (current) use of aspirin; Z79.01 Long term (current) use of anticoagulants; Z88.2 Allergy status to sulfonamides; Z88.7 Allergy status to serum and vaccine; Z79.4 Long term (current) use of insulin
CPT/HCPCS: 66984; V2632

== ENCOUNTER 2022-02-14 06:08 | Outpatient (CLI) | payer MEDICARE, OTHER | END 2022-02-14 08:55 | disposition home or self-care (01) | LOC: PREOP 06:08 | PROVIDERS: ATTEND Specialist | DX: Z01.818 Encounter for other preprocedural examination (principal) ==

== ENCOUNTER 2022-02-17 09:00 | Day surgery (SDC) | payer MEDICARE, OTHER ==
[~2022-02-17] VITALS: Ht 165.1 cm; Wt 104.0 kg
[2022-02-17 09:15] VITALS: BP 112/59
[2022-02-17] MEDS ORDERED: MOXIFLOXACIN OPHTH SOLN 5 MG/ML 0.3 ML SYRINGE OP ONE (09:15)
[2022-02-17] MEDS ORDERED: TIMOLOL MALEATE 0.5% 5 ML (TIMOPTIC) BTL OU PRN (09:15)
[2022-02-17] MEDS ORDERED: POVIDONE (BETADINE) OPHTH SOLN 5% 30 ML OP ONE (09:15)
[2022-02-17] MEDS: TETRACAINE 0.5% OPHTH SOLN 4 ML BTL (SINGLE DOSE ONLY) OU PRN ×4 (09:15→09:39)
[2022-02-17] MEDS: PHENYLEPHRINE 10% OPHTH (NEO-SYN) 5 ML BTL OU SCH ×3 (09:28→09:39)
[2022-02-17] MEDS: TROPICAMIDE 1% OPH SOLN (MYDRIACYL) 15 ML BTL OP SCH ×3 (09:28→09:39)
--- NOTE | 2022-02-17 09:37 | Ophthalmologist Pre-Op Note ---
Pre-Operative Progress Note H&P Reviewed The H&P was reviewed, patient examined and no changes noted. Date H&P Reviewed: Feb 17, 2022 Time H&P Reviewed: 09:36 Pre-Op Dx Cataract, Left Eye SHIELA CHAPARRO MD Feb 17, 2022 09:37
[2022-02-17] MEDS ORDERED: MIDAZOLAM 2 MG/2 ML (VERSED) VIAL ONE (09:46)
--- NOTE | 2022-02-17 10:02 | Ophthalmology Operative Report ---
Cataract removal/placement IOL PREOPERATIVE DIAGNOSIS: Cataract Left Eye POSTOPERATIVE DIAGNOSIS: Cataract Left Eye PROCEDURE: Cataract removal and placement of posterior chamber implant, left eye SURGEON: Brent Chaparro ANESTHESIA: Topical with sedation COMPLICATIONS: None ESTIMATED BLOOD LOSS: Minimal DESCRIPTION OF PROCEDURE: After proper informed consent was obtained, the patient, a 76 female, was taken to the Operating Room and the left eye was anesthetized with tetracaine. The left eye was then prepped and draped in the usual manner. A wire lid speculum was placed. A paracentesis was made at the left hand position. Preservative free lidocaine was injected into the anterior chamber followed by viscoelastic. A clear corneal incision was made in the temporal position. A capsulorrhexis was preformed and the central nuclear and cortical material were removed. The posterior capsule was polished and an Didier 21.5 AU00T0 was placed into the capsular bag. The residual viscoelastic was aspirated and balanced saline solution was injected into the anterior chamber. Moxifloxacin was injected into the anterior chamber. The wound was checked and found to be water tight. The patient tolerated the procedure well without complications. BRENT CHAPARRO MD Feb 17, 2022 10:02
[2022-02-17 10:11] VITALS: BP 134/63
--- NOTE | 2022-02-17 13:07 | Anesthesia-General Post-Op ---
MAC Patient Condition Mental Status/LOC: Same as Preop Cardiovascular: Satisfactory Nausea/Vomiting: Absent Respiratory: Satisfactory Pain: Controlled Complications: Absent Post Op Complications Complications None Follow Up Care/Instructions Patient Instructions None needed. Anesthesiology Discharge Order Discharge Order Patient is doing well, no complaints, stable vital signs, no apparent adverse anesthesia problems. No complications reported per nursing. MANI OTT CRNA Feb 17, 2022 13:07
== END 2022-02-17 10:12 | disposition home or self-care (01) ==
LOC: SDC 09:00
PROVIDERS: ATTEND Specialist
DX: E11.36 Type 2 diabetes mellitus with diabetic cataract (principal); H25.9 Unspecified age-related cataract; Z88.2 Allergy status to sulfonamides; Z95.5 Presence of coronary angioplasty implant and graft; Z95.1 Presence of aortocoronary bypass graft; Z79.4 Long term (current) use of insulin; Z79.82 Long term (current) use of aspirin
CPT/HCPCS: 66984; 82947; V2632

== ENCOUNTER → 2022-05-15 | Outpatient (CLI) | payer MEDICARE, OTHER ==
--- NOTE | 2022-05-15 14:39 | Diagnostic Imaging Report ---
INDICATION: Routine screening. COMPARISON: 05/13/2021 and 05/11/2020. TECHNIQUE: 2D and 3D bilateral screening mammography was performed with CAD. FINDINGS: Both breasts are heterogeneously dense, limiting the sensitivity of mammography. Scattered benign parenchymal and vascular calcifications are noted bilaterally. No mass or malignant-appearing microcalcifications are seen. A pacemaker battery pack overlies the left axilla. IMPRESSION: No mammographic features suspicious for malignancy are identified. ACR BI-RADS Category 2: Benign findings. Result letter will be mailed to the patient. Note: At least 10% of breast cancer is not imaged by mammography. Dictated by: Dictated on workstation # [id number]
== END ==
LOC: RAD 09:27
PROVIDERS: ATTEND Nurse Practitioner Family
DX: Z12.31 Encounter for screening mammogram for malignant neoplasm of breast (principal)
CPT/HCPCS: 77063; 77067

== ENCOUNTER → 2023-05-28 | Outpatient (CLI) | payer MEDICARE, OTHER ==
[~2023-05-28] MED LIST changes: +CLOP-31 PO; -CLOP75TA69 PO; -LOSA100T57 PO; +LOSA100T58 PO; +SENN-271 PO; -SENN1TAB76 PO
== END ==
LOC: WOUNDCARE 10:24
PROVIDERS: ATTEND Family Medicine
DX: L98.492 Non-pressure chronic ulcer of skin of other sites with fat layer exposed (principal); E11.622 Type 2 diabetes mellitus with other skin ulcer; E66.01 Morbid (severe) obesity due to excess calories; Z68.41 Body mass index [BMI] 40.0-44.9, adult; E44.0 Moderate protein-calorie malnutrition; Z79.01 Long term (current) use of anticoagulants; N18.30 Chronic kidney disease, stage 3 unspecified
CPT/HCPCS: 11104; A6197; A6212; G0463

== ENCOUNTER → 2023-05-31 | Outpatient (CLI) | payer MEDICARE, OTHER ==
--- NOTE | 2023-05-31 15:12 | Diagnostic Imaging Report ---
Indication: Routine screening. Comparison is made with prior mammograms from 05/15/2022 and 05/13/2021. 2-D and 3-D bilateral screening mammography was performed with CAD. Both breasts are heterogeneously dense, limiting the sensitivity of mammography. The parenchymal pattern is stable. Extensive parenchymal and vascular calcifications are noted bilaterally. No dominant mass or malignant-appearing microcalcifications are identified. Pacemaker battery pack overlies the left axilla. Right axilla is unremarkable. IMPRESSION: BI-RADS Category 2 No mammographic features suspicious for malignancy are identified. ACR BI-RADS Category 2: Benign findings. Result letter will be mailed to the patient. Note: At least 10% of breast cancer is not imaged by mammography. Dictated by: Dictated on workstation # [id number]
== END ==
LOC: RAD 10:44
PROVIDERS: ATTEND Family Medicine
DX: Z12.31 Encounter for screening mammogram for malignant neoplasm of breast (principal)
CPT/HCPCS: 77063; 77067

== ENCOUNTER → 2023-06-05 | Outpatient (CLI) | payer MEDICARE, OTHER | LOC: WOUNDCARE 09:38 | PROVIDERS: ATTEND Family Medicine | DX: I96 Gangrene, not elsewhere classified (principal); E11.622 Type 2 diabetes mellitus with other skin ulcer; L98.492 Non-pressure chronic ulcer of skin of other sites with fat layer exposed; E44.0 Moderate protein-calorie malnutrition; N18.30 Chronic kidney disease, stage 3 unspecified; E66.01 Morbid (severe) obesity due to excess calories; Z79.01 Long term (current) use of anticoagulants; Z68.41 Body mass index [BMI] 40.0-44.9, adult | CPT/HCPCS: A6021; A6212; G0463; 99213 ==

== ENCOUNTER → 2023-06-11 | Outpatient (CLI) | payer MEDICARE, OTHER ==
[2023-06-11 11:01] LABS: BASOPHILS % (AUTO) 0 % (0-10); EOSINOPHILS # (AUTO) 0.1 10^3/uL (0.0-0.3); EOSINOPHILS % (AUTO) 1 % (0-10); HEMATOCRIT 37 % (35-52); HEMOGLOBIN 12.4 g/dL (11.5-16.0); LYMPHOCYTES # (AUTO) 1.8 10^3/uL (1.0-4.0); LYMPHOCYTES % (AUTO) 17 % (12-44); MEAN CORPUSCULAR HEMOGLOBIN 30 pg (25-34); MEAN CORPUSCULAR HGB CONC 34 g/dL (32-36); MEAN CORPUSCULAR VOLUME 89 fL (80-99); MEAN PLATELET VOLUME 11.3 fL (9.0-12.2); MONOCYTES # (AUTO) 1.1 10^3/uL (0.0-1.0); MONOCYTES % (AUTO) 10 % (0-12); NEUTROPHILS # (AUTO) 7.9 10^3/uL (1.8-7.8); NEUTROPHILS % (AUTO) 72 % (42-75); PLATELET COUNT 189 10^3/uL (130-400)
== END ==
LOC: WOUNDCARE 10:20
PROVIDERS: ATTEND Family Medicine
DX: L98.492 Non-pressure chronic ulcer of skin of other sites with fat layer exposed (principal); E11.622 Type 2 diabetes mellitus with other skin ulcer; E66.01 Morbid (severe) obesity due to excess calories; Z68.41 Body mass index [BMI] 40.0-44.9, adult; E44.1 Mild protein-calorie malnutrition; Z79.01 Long term (current) use of anticoagulants; E11.22 Type 2 diabetes mellitus with diabetic chronic kidney disease; N18.30 Chronic kidney disease, stage 3 unspecified; E11.52 Type 2 diabetes mellitus with diabetic peripheral angiopathy with gangrene; I96 Gangrene, not elsewhere classified
CPT/HCPCS: 83036; 84134; 85025; A6212; G0463; 36415; 99212

== ENCOUNTER → 2023-06-18 | Outpatient (CLI) | payer MEDICARE, OTHER | LOC: WOUNDCARE 10:26 | PROVIDERS: ATTEND Family Medicine | DX: E11.622 Type 2 diabetes mellitus with other skin ulcer (principal); L98.492 Non-pressure chronic ulcer of skin of other sites with fat layer exposed; E66.01 Morbid (severe) obesity due to excess calories; E44.0 Moderate protein-calorie malnutrition; E11.22 Type 2 diabetes mellitus with diabetic chronic kidney disease; N18.30 Chronic kidney disease, stage 3 unspecified; L88 Pyoderma gangrenosum; Z68.41 Body mass index [BMI] 40.0-44.9, adult; Z79.01 Long term (current) use of anticoagulants | CPT/HCPCS: A6212; G0463; 99213 ==

== ENCOUNTER → 2023-06-25 | Outpatient (CLI) | payer MEDICARE, OTHER | LOC: WOUNDCARE 10:22 | PROVIDERS: ATTEND Family Medicine | DX: L98.492 Non-pressure chronic ulcer of skin of other sites with fat layer exposed (principal); E11.622 Type 2 diabetes mellitus with other skin ulcer; E66.01 Morbid (severe) obesity due to excess calories; Z68.41 Body mass index [BMI] 40.0-44.9, adult; E44.0 Moderate protein-calorie malnutrition; Z79.01 Long term (current) use of anticoagulants; E11.22 Type 2 diabetes mellitus with diabetic chronic kidney disease; N18.30 Chronic kidney disease, stage 3 unspecified; L88 Pyoderma gangrenosum; E11.52 Type 2 diabetes mellitus with diabetic peripheral angiopathy with gangrene; I96 Gangrene, not elsewhere classified | CPT/HCPCS: A6212; G0463; 99212 ==

== ENCOUNTER → 2023-06-27 | Outpatient (CLI) | payer MEDICARE, OTHER ==
[~2023-06-27] MED LIST changes: +HOLD METFORMIN - RECEIVED CONTRAST 20 ML VIAL IV SCH; +IOHEXOL 350 MG/ML 100 ML (OMNIPAQUE 350) VIAL IV ONE; +NS 100 ML (IVPB) BAG IV ONE
--- NOTE | 2023-06-27 14:52 | Diagnostic Imaging Report ---
EXAMINATION: CT abdomen and pelvis with intravenous contrast. TECHNIQUE: Multiple contiguous axial images were obtained through the abdomen and pelvis after the uneventful administration of intravenous contrast. All CT scans use one or more of the following dose optimizing techniques: automated exposure control, MA and/or KvP adjustment based on patient size and exam type or iterative reconstruction. HISTORY: Left lower quadrant ulceration. COMPARISON: None available. FINDINGS: Lung bases: There is trace left pleural effusion with bibasilar atelectasis. Solid organs: The liver is normal without focal lesion. The gallbladder is surgically absent. There is no biliary ductal dilation. There is atrophy of the pancreas without ductal dilatation. Spleen is normal. Adrenal glands are normal. There is a left renal cyst which requires no follow-up. No hydronephrosis. Bowel: The stomach and small bowel are normal without obstruction. There are a few scattered colonic diverticula present. There is wall thickening of the right hemicolon from the hepatic flexure to the cecum. There are no secondary signs of acute appendicitis. Peritoneum: There is no intraperitoneal free fluid or free air. No suspicious lymphadenopathy. Vasculature: Calcification of the aorta without aneurysm. Musculoskeletal: Multilevel degenerative changes of the spine with osseous demineralization. There is a compression fracture of the L1 vertebral body which is new from 09/08/2021. No focal soft tissue abnormality is seen, particularly within the left lower quadrant soft tissues within the described area of concern. Pelvis: The uterus is surgically absent. No adnexal mass. The urinary bladder is normal. IMPRESSION: 1. Mild wall thickening within the ascending colon. This could be secondary to decompressed state but infectious or inflammatory colitis versus neoplastic process could have a similar appearance. Consider follow-up CT or correlation with colonoscopy if this has recently been performed. 2. No focal abnormality within the soft tissues, particularly within the left lower quadrant in the region of concern. 3. No other acute abnormality in the abdomen or pelvis. Dictated by: Dictated on workstation # [id number]
== END ==
LOC: RAD 12:48
PROVIDERS: ATTEND Family Medicine
DX: L98.492 Non-pressure chronic ulcer of skin of other sites with fat layer exposed (principal)
CPT/HCPCS: 74177

== ENCOUNTER → 2023-07-02 | Outpatient (CLI) | payer MEDICARE ==
[~2023-07-02] MED LIST changes: -HOLD METFORMIN - RECEIVED CONTRAST 20 ML VIAL IV SCH; -IOHEXOL 350 MG/ML 100 ML (OMNIPAQUE 350) VIAL IV ONE; -NS 100 ML (IVPB) BAG IV ONE
== END ==
LOC: WOUNDCARE 10:09
PROVIDERS: ATTEND Family Medicine
DX: E11.622 Type 2 diabetes mellitus with other skin ulcer (principal); L98.492 Non-pressure chronic ulcer of skin of other sites with fat layer exposed; E66.01 Morbid (severe) obesity due to excess calories; E44.0 Moderate protein-calorie malnutrition; E11.22 Type 2 diabetes mellitus with diabetic chronic kidney disease; N18.30 Chronic kidney disease, stage 3 unspecified; L88 Pyoderma gangrenosum; Z79.01 Long term (current) use of anticoagulants; Z68.41 Body mass index [BMI] 40.0-44.9, adult
CPT/HCPCS: 15271; A6021; G0463

== ENCOUNTER → 2023-07-09 | Outpatient (CLI) | payer MEDICARE, OTHER | LOC: WOUNDCARE 10:10 | PROVIDERS: ATTEND Family Medicine | DX: E11.622 Type 2 diabetes mellitus with other skin ulcer (principal); L98.492 Non-pressure chronic ulcer of skin of other sites with fat layer exposed; E44.0 Moderate protein-calorie malnutrition; L88 Pyoderma gangrenosum; N18.30 Chronic kidney disease, stage 3 unspecified; E66.01 Morbid (severe) obesity due to excess calories; Z68.41 Body mass index [BMI] 40.0-44.9, adult; Z79.01 Long term (current) use of anticoagulants | CPT/HCPCS: 15271; G0463 ==